=== PATIENT | male | born 1950 | race Caucasian/White ===

== ENCOUNTER 2017-09-14 15:13 | Inpatient (IN) | payer OTHER ==
[~2017-09-14] VITALS: Ht 180.3 cm; Wt 129.0 kg
[~2017-09-14 15:13] MED LIST: ATOR80TA PO; CPR500 PO; GLCSR25 PO; MTR500 PO; SIME80CH PO; TAMS0.4C38 PO
[2017-09-14] MEDS ORDERED: SODIUM CHLORIDE 0.9% 500ML 500 ML IV STA ×2 (15:52→16:49)
[2017-09-14] MEDS: LORAZEPAM 2 MG/ML 1 ML VIAL IV STA ×2 (15:59→16:21)
[2017-09-14 16:14] LABS: HEMATOCRIT 41.7 % (42-52); HEMOGLOBIN 15.1 g/dL (14.0-18.0); MEAN CELL VOLUME 82.4 fL (80-100); MEAN CORPUSCULAR HEMOGLOBIN 29.8 pg (25-34); MEAN CORPUSCULAR HGB CONC 36.2 g/dl (32-36); MEAN PLATELET VOLUME 10.7 fL (7.4-10.4); PLATELET COUNT 236 K/uL (130-400); RED CELL DISTRIBUTION WIDTH CV 13.9 % (11.5-14.5); RED CELL DISTRIBUTION WIDTH SD 41.7 fL (36.4-46.3); WHITE BLOOD COUNT 10.09 K/uL (4.8-10.8)
[2017-09-14] MEDS ORDERED: NVLG SQ (16:29)
[2017-09-14] MEDS ORDERED: FURO80TA63 PO (16:29)
[2017-09-14] MEDS ORDERED: CARV12.5 PO (16:29)
[2017-09-14] MEDS ORDERED: ATOR-24 PO (16:29)
[2017-09-14] MEDS ORDERED: MINO2.5T2 PO (16:29)
[2017-09-14] MEDS ORDERED: CLON0.2T PO (16:29)
[2017-09-14] MEDS ORDERED: INSDGI SQ (16:29)
[2017-09-14] MEDS ORDERED: CALC0.2510 PO (16:29)
[2017-09-14] MEDS ORDERED: TAMS0.4C38 PO (16:29)
--- NOTE | 2017-09-14 16:37 | DIAGNOSTIC IMAGING REPORT ---
CHEST ONE VIEW PORTABLE CLINICAL HISTORY: 67 years-old Male presenting with sob. TECHNIQUE: Portable upright AP view of the chest was obtained. COMPARISON: 02/20/2015. FINDINGS: Cardiac silhouette mildly enlarged. Minimal basilar opacities. No pleural effusion or pneumothorax. Degenerative changes of the thoracic spine. IMPRESSION: 1. Minimal basilar opacities likely atelectasis or scarring. No convincing evidence of acute cardiopulmonary disease. Electronically signed by: Joon George M.D. 09/14/2017 4:36 PM Dictated Date/Time: 09/14/2017 4:35 PM
[2017-09-14] MEDS ORDERED: FRS/40 PO (16:38)
[2017-09-14 16:45] LABS: GLUCOSE 349 mg/dl (70-99)
[2017-09-14 16:47] LABS: ALBUMIN 3.6 gm/dl (3.4-5.0); ALKALINE PHOSPHATASE 76 U/L (45-117); ALT/SGPT 21 U/L (12-78); AST/SGOT 14 U/L (15-37); BLOOD UREA NITROGEN 86 mg/dl (7-18); CARBON DIOXIDE 35 mmol/L (21-32); CREATININE 3.62 mg/dl (0.60-1.40); POTASSIUM 2.6 mmol/L (3.5-5.1); SODIUM 129 mmol/L (136-145); TOTAL PROTEIN 7.9 gm/dl (6.4-8.2)
[2017-09-14] MEDS ORDERED: NovoLIN-R INSULIN PER UNIT CHARGE IV STA (16:49)
[2017-09-14] MEDS ORDERED: POTASSIUM CHLORIDE 10 MEQ TABCR PO STA (16:49)
--- NOTE | 2017-09-14 17:38 | History and Physical ---
History & Physical Date & Time of Service: September 14, 2017 at 17:11 Chief Complaint: Referred By Doctor Primary Care Physician: Carroll Brizuela D.O. History of Present Illness Source: patient 67yo male with history of CKD who [facility] the [facility] [place] [facility] to elevated creatinine. He was told about 4 weeks ago that his creatinine was high. He had repeat blood work about 2 weeks later - again his creatinine was high. For a 3rd time he had blood work about 1 week ago and he received those results yesterday. A Dr. Lomeli from the [facility] (nephrology clinic) called him last evening and recommended he "stay off the lasix." He was also told to discontinue his zaroxylyn. Sometime in August he saw Dr. Lomeli in [place] and the zaroxylyn was added at that visit. He had been on lasix for about 2 years. He had been taking 120mg of lasix twice daily. When asked why he takes 2 diuretics he points to his legs and says "my edema." He denies history of CHF. Over the last few weeks he has felt tired. He also complains of mild abdominal discomfort. In the last month his weight has been about 291 #. Past Medical/Surgical History PMH: 1. HTN 2. T2DM for 10-15 years 3. CKD - unknown stage 4. morbid obesity with BMI of about 39-40 5. BPH 6. umbilical hernia no h/o CHF, PE, COPD/asthma, cirrhosis PSH: none Family History mother - age 85 - "old age" had dementia, HTN father - age 56; had valve replacement; also had ankylosing spondylitis HTN in multiple family members Social History served in [employer] for 3 years in the mid 1980s Smoking Status: Current Some Day Smoker (occasional cigar) Alcohol Use: 1x/week - liquor Drug Use: none Marital Status: (no kids) Housing status: lives alone (in trailer in [place] ) Occupational Status: disabled (previously did [employer] work) Allergies Coded Allergies: Ragweed (Verified Allergy, Mild, CONGESTON, 09/14/17) Home Medications Scheduled Amlodipine Besylate (Norvasc), 10 MG PO DAILY Atorvastatin (Lipitor), 20 MG PO QAM Calcitriol (Rocaltrol Cap), 0.25 MCG PO DAILY Carvedilol (Coreg), 6.25 MG PO BID Clonidine Hcl (Catapres), 0.2 MG PO BID Furosemide (Lasix), 40 MG PO BID Insulin Aspart (Novolog), 5 UNITS SQ AC Insulin Glargine (Lantus), 33 UNITS SQ HS Minoxidil (Minoxidil), 2.5 MG PO BID Tamsulosin Hcl (Flomax), 0.4 MG PO QPM Review of Systems Constitutional: + fatigue, No fever, No chills, No weight loss Eyes: No worsening of vision ENT: + nasal symptoms (congestion ), No sore throat, No trouble swallowing Respiratory: No sputum, No wheezing, No shortness of breath, No dyspnea on exertion Cardiovascular: + edema (chronic, but actually doing very well right now), No chest pain, No orthopnea, No PND Abdomen: + pain (epigastric region - for long time (since teenage years)), No vomiting, No diarrhea, No constipation, No GI bleeding Genitourinary - Male: + problem reported (nocturia - 3x's night; sometimes more ), No hematuria, No dysuria Neurologic: + numbness/tingling (feet), + problem reported (lightheadedness/ dizziness - at times ) Psychiatric: No depression symptoms, No anxiety, No substance abuse Endocrine: + fatigue, No excessive thirst Hematologic / Lymphatic: No abnormal bleeding/bruising Integumentary: No rash Allergic / Immunologic: + environmental allergies Physical Exam Vital Signs Date Time Temp Pulse Resp B/P (MAP) Pulse Ox O2 Delivery O2 Flow Rate FiO2 09/14/17 16:23 94 Nasal Cannula 2.0 09/14/17 16:21 79 20 167/88 88 Room Air 09/14/17 15:16 36.7 90 20 181/78 93 Room Air General Appearance: no apparent distress, + obese, + pertinent finding (mildly disheveled) Head: normocephalic, atraumatic Eyes: + pertinent finding (PERRL; conjunctical and scleral injection with mild purulent discharge b/l ) ENT: hearing grossly normal, TMs normal, pharynx normal Neck: supple, no adenopathy, thyroid normal, no JVD, no carotid bruits Respiratory/Chest: lungs clear, normal breath sounds, no respiratory distress, no accessory muscle use Cardiovascular: regular rate, rhythm, no gallop, no murmur, normal peripheral pulses Abdomen/GI: normal bowel sounds, non tender, soft, no organomegaly, + hernia ( large umbilical hernia - reducible ), + pertinent finding (rectal deferred ) Back: normal inspection Extremities/Musculoskelatal: + pedal edema (trace b/l ), + pertinent finding ( stasis changes b/l ) Neurologic/Psych: no motor/sensory deficits, alert, normal mood/affect, normal reflexes (except achilles reflexes 0) Skin: + pertinent finding (stasis changes b/l shins; multiple calluses on feet ; dystrophic toenails x 10 toes; no ulcers) Lymphatic: no adenopathy (cervical ) Diagnostics Laboratory Results Results Past 24 Hours Test 09/14/17 16:02 Range/Units White Blood Count 10.09 4.8-10.8 K/uL Red Blood Count 5.06 4.7-6.1 M/uL Hemoglobin 15.1 14.0-18.0 g/dL Hematocrit 41.7 42-52 % Mean Corpuscular Volume 82.4 80-100 fL Mean Corpuscular Hemoglobin 29.8 25-34 pg Mean Corpuscular Hemoglobin Concent 36.2 32-36 g/dl RDW Standard Deviation 41.7 36.4-46.3 fL RDW Coefficient of Variation 13.9 11.5-14.5 % Platelet Count 236 130-400 K/uL Mean Platelet Volume 10.7 7.4-10.4 fL Sodium Level 129 136-145 mmol/L Potassium Level 2.6 3.5-5.1 mmol/L Chloride Level 84 98-107 mmol/L Carbon Dioxide Level 35 21-32 mmol/L Anion Gap 10.0 3-11 mmol/L Blood Urea Nitrogen 86 7-18 mg/dl Creatinine 3.62 0.60-1.40 mg/dl Est Creatinine Clear Calc Drug Dose 28.1 ml/min Estimated GFR () 19.2 Estimated GFR (Non- 16.6 BUN/Creatinine Ratio 23.6 10-20 Random Glucose 349 70-99 mg/dl Calcium Level 9.0 8.5-10.1 mg/dl Magnesium Level 2.7 1.8-2.4 mg/dl Total Bilirubin 0.6 0.2-1 mg/dl Aspartate Amino Transf (AST/SGOT) 14 15-37 U/L Alanine Aminotransferase (ALT/SGPT) 21 12-78 U/L Alkaline Phosphatase 76 45-117 U/L Total Creatine Kinase 145 39-308 U/L Troponin I < 0.015 0-0.045 ng/ml Total Protein 7.9 6.4-8.2 gm/dl Albumin 3.6 3.4-5.0 gm/dl Globulin 4.3 2.5-4.0 gm/dl Albumin/Globulin Ratio 0.8 0.9-2 Beta-Hydroxybutyric Acid 1.50 0.2-2.81 mg/dL Thyroid Stimulating Hormone (TSH) 1.690 0.300-4.500 uIu/ml Diagnostic Radiology cxr - IMPRESSION: 1. Minimal basilar opacities likely atelectasis or scarring. No convincing evidence of acute cardiopulmonary disease. EKG EKG - my reading - NSR, nl axis, prolonged QTc; inferior q waves; inferior ST segment depressions Impression Assessment and Plan 67yo male with history of long-standing HTN, long-standing T2DM, morbid obesity , BPH, and CKD unknown stage presenting as a referral from the [place] clinic due to worsening renal function. The patient has been having serial labs over the last 4 weeks which have showed worsening creatinine. The patient is uncertain about what the creatinine has been. He has been on multiple diuretics over the last month and yesterday, when the [place] physician called him, he was asked to stop his lasix and metazolone. In addition to stopping the diuretics he was told to report to the nearest hospital ER. 1. acute renal failure - suspect this is due to volume depletion in the setting of double diuretic usage. He has a concomitant contraction alkalosis. Doubt obstruction but will check renal ultrasound in light of his BPH. Hold any nephrotoxic agent. Hold his diuretics. Gently hydrate with NS at 125cc/hr overnight. Repeat BMP later this evening and then again in the AM. It is unknown what his creatinine has been in the last few months or weeks. The last creatinine in our system was in 02/2015 and was 1.9. He is established with a paper rewinder operator through the [facility] (parker Lomeli). Check u/a, urine osm, urine sodium, urine creatinine (although FeNa may not be accurate due to recent diuretic usage). [facility]. Despite the acute renal failure his only symptom of such is fatigue. He has no evidence of volume overload. 2. CKD unknown stage - suspect his CKD is due to diabetic nephropathy and/or hypertensive kidney disease. Check u/a. Check other urine studies as above. Check renal u/s 3. HTN - long-standing, uncontrolled (he reported during my visit with him "my blood pressure is usually 150"). Hold diuretics. Hold minoxidil which can worsen edema. Cont amlodipine. Cont coreg but increase to 12.5mg BID. Cont clonidine 0.2mg BID. Cont flomax 0.4mg daily. Could consider nitrates with hydralazine in neida of minoxidil. 4. hyponatremia - likely due to diuretic usage. Hydrate, and repeat BMP tonight and then again in the AM. 5. severe hypokalemia - 2nd to diuretic usage. Received 40meq of PO potassium in ER already. Give another 60meq tonight, then repeat the BMP 1 hour later. 6. FEN - renal/DM diet. NS 125cc/hr. Serial labs. 7. DVT proph - heparin 5000 BID. 8. morbid obesity with BMI 39 9. T2DM - continue lantus at 35 units HS. Novolog w/ meals - goal range 100- 150; correction factor 25; carb ratio 1:8. 10. BPH - cont flomax. Check renal u/s to ensure he does not have chronic bladder outlet obstruction from such. 11. transient hypoxia in the ER - cxr is clear, lung exam is normal. Observe. Certainly at risk of RADHA given his obesity. 12. prolonged QTc - 2nd to severe hypokalemia; replete the low K and repeat the EKG in am. Place patient on telemetry. Resuscitation Status VTE Prophylaxis Will order VTE Prophylaxis: Yes Note total visit time 70 min Additional Copies To Carroll Brizuela D.O.
[2017-09-14] MEDS ORDERED: SODIUM CHLORIDE 0.9% 1000ML 1,000 ML IV SCH (17:54)
[2017-09-14] MEDS ORDERED: ACETAMINOPHEN 325 MG TAB PO PRN (18:00)
[2017-09-14] MEDS ORDERED: ONDANSETRON INJ 2 MG/ML 2 ML VIAL IV PRN (18:00)
[2017-09-14] MEDS ORDERED: GLUCOSE 10 TABS/TUBE PO PRN (18:30)
[2017-09-14] MEDS ORDERED: GLUCOSE 40% GEL 15 GM TUBE PO PRN (18:30)
[2017-09-14] MEDS ORDERED: DEXTROSE 50% 50 ML SYR IV PRN (18:30)
[2017-09-14] MEDS ORDERED: CARBOHYDRATES FOR HYPOGLYCEMIA PO PRN (18:30)
[2017-09-14] MEDS ORDERED: GLUCAGON FOR INJ 1 MG VIAL IM PRN (18:30)
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
[2017-09-14] MEDS ORDERED: AMLO10TA2 PO (19:29)
[2017-09-14 19:59] VITALS: BP 188/90; PULSE 80; TEMP 36.6; O2SAT 95; BMI 39.2
[2017-09-14] MEDS ORDERED: POTASSIUM CHLORIDE 20 MEQ TABCR PO ONE (20:00)
[2017-09-14 20:03] LABS: CREATININE RANDOM URINE 53.2 mg/dl
[2017-09-14 20:22] LABS: PTT PATIENT 26.4 SECONDS (21.0-31.0)
[2017-09-14] MEDS ORDERED: ERYTHROMYCIN OP OINT 1 GM PKT OP SCH (21:00)
[2017-09-14] MEDS ORDERED: INSULIN GLARGINE SOLOSTAR 100 UNITS/ML 3 ML PEN SQ SCH (21:00)
[2017-09-14] MEDS ORDERED: CLONIDINE HCL 0.1 MG TAB PO SCH (21:00)
[2017-09-14] MEDS: TAMSULOSIN HCL 0.4 MG CAP PO SCH (21:11)
[2017-09-14] MEDS: CARVEDILOL 12.5 MG TAB PO SCH (21:11)
[2017-09-14] MEDS: NAPHAZOLIN/PHENIRAMIN OPH SOLN 75 DROPS/5 ML BTL OP PRN (21:13)
[2017-09-14] MEDS: INSULIN ASPART 100 UNITS/ML 3 ML PEN SC SCH (21:19)
[2017-09-14] MEDS: INSULIN GLARGINE SOLOSTAR 100 UNITS/ML 3 ML PEN SQ SCH (21:20)
[2017-09-14 21:43] LABS: CALCIUM 8.6 mg/dl (8.5-10.1); CREATININE 3.75 mg/dl (0.60-1.40); POTASSIUM 2.6 mmol/L (3.5-5.1)
[2017-09-14] MEDS: CLONIDINE HCL 0.1 MG TAB PO SCH (21:47)
[2017-09-14] MEDS: HEPARIN SOD 5000 UNIT/0.5 ML CARP SQ SCH (21:48)
[2017-09-14] MEDS: ERYTHROMYCIN OP OINT 5 MG/GM 3.5 GM TUBE OP SCH (22:11)
--- NOTE | 2017-09-14 22:50 | DIAGNOSTIC IMAGING REPORT ---
RETROPERITONEAL COMPLETE CLINICAL HISTORY: 67 years-old Male presenting with ACUTE KIDNEY FAILURE; EVAL FOR OBSTRUCTION. TECHNIQUE: Real-time grayscale and limited color Doppler ultrasound imaging of the kidneys and bladder was performed. COMPARISON: CT from 02/21/2015. FINDINGS: Right kidney: Cortical thinning. Right kidney measures 9.9 cm. No hydronephrosis. No convincing evidence of calculus or mass. Left kidney: Cortical thinning. Left kidney measures 10.6 cm. No hydronephrosis. Interpolar anechoic lesion consistent with cyst measuring 2.1 cm. Bladder: Polypoid lesion arising from the posterior bladder wall measuring 2.0 cm. No demonstrable internal color Doppler flow. Right ureteral jet not present. Other: None. IMPRESSION: 1. Polypoid masslike thickening of the bladder wall posteriorly. Urologic consultation for possible cystoscopy to be considered. No internal vascular flow is evident though neoplasm is difficult to exclude. 2. Bilateral renal cortical thinning consistent with chronic medical renal disease. No convincing evidence of obstruction. The report will be called/faxed according to standard departmental protocol. Electronically signed by: Joon George M.D. 09/14/2017 10:48 PM Dictated Date/Time: 09/14/2017 10:46 PM
[2017-09-14 23:56] VITALS: BP 155/85; PULSE 114; TEMP 36.5; O2SAT 94
[2017-09-15] VITALS (7 sets, daily range): BP systolic 116–173; BP diastolic 65–83; PULSE 45–67; TEMP 36.3–36.7; O2SAT 87–98; Ht 180.3 cm; Wt 129.0 kg
[2017-09-15] MEDS: NSS + 20MEQ KCL 1000ML 1,000 ML IV SCH ×2 (00:58→13:30)
[2017-09-15 07:19] LABS: CALCIUM 8.6 mg/dl (8.5-10.1); CREATININE 3.27 mg/dl (0.60-1.40); POTASSIUM 3.3 mmol/L (3.5-5.1)
[2017-09-15] MEDS ORDERED: POTASSIUM CHLORIDE 20 MEQ TABCR PO STA (07:50)
[2017-09-15] MEDS: AMLODIPINE BESYLATE 5 MG TAB PO SCH (08:31)
[2017-09-15] MEDS: ATORVASTATIN 20 MG TAB PO SCH (08:32)
[2017-09-15] MEDS: ERYTHROMYCIN OP OINT 5 MG/GM 3.5 GM TUBE OP SCH ×3 (08:32→21:02)
[2017-09-15] MEDS: CLONIDINE HCL 0.1 MG TAB PO SCH ×2 (08:32→21:03)
[2017-09-15] MEDS: CALCITRIOL 0.25 MCG CAP PO SCH (08:32)
[2017-09-15] MEDS: CARVEDILOL 12.5 MG TAB PO SCH (08:32)
[2017-09-15] MEDS: INSULIN GLARGINE SOLOSTAR 100 UNITS/ML 3 ML PEN SC SCH (08:45)
[2017-09-15] MEDS: INSULIN ASPART 100 UNITS/ML 3 ML PEN SC SCH ×4 (08:45→21:15)
[2017-09-15] MEDS: HEPARIN SOD 5000 UNIT/0.5 ML CARP SQ SCH ×2 (08:46→21:16)
[2017-09-15 09:07] LABS: HEMOGLOBIN A1C 11.4 % (4.5-5.6)
[2017-09-15] MEDS: CARVEDILOL 6.25 MG TAB PO SCH (21:00)
[2017-09-15] MEDS: TAMSULOSIN HCL 0.4 MG CAP PO SCH (21:04)
[2017-09-15] MEDS: INSULIN GLARGINE SOLOSTAR 100 UNITS/ML 3 ML PEN SQ SCH (21:16)
--- NOTE | 2017-09-15 21:35 | Progress Note ---
Subjective Date of Service: September 15, 2017. Subjective Pt evaluation today including: conversation w/ patient, physical exam, chart review, lab review, review of studies (renal u/s), review of inpatient medication list Pain: none PO Intake: normal Voiding: no voiding problems tele stable overnight EKG today with improved QTc interval he overall feels well Problem List Medical Problems: (1) Acute renal failure (ARF) Status: Acute (2) Dehydration Status: Acute (3) Hyperglycemia Status: Acute (4) Hypokalemia Status: Acute Review of Systems Constitutional: No fever Respiratory: No shortness of breath, No dyspnea on exertion Cardiac: No chest pain Abdomen: No pain Objective Vital Signs Date Time Temp Pulse Resp B/P (MAP) Pulse Ox O2 Delivery O2 Flow Rate FiO2 09/15/17 19:14 36.5 55 20 173/83 (113) 87 Room Air 09/15/17 16:02 36.3 50 18 152/80 (104) 95 Nasal Cannula 2.0 09/15/17 16:00 Room Air 09/15/17 12:00 Room Air 09/15/17 11:44 36.4 48 19 134/75 (94) 97 Nasal Cannula 2.0 09/15/17 08:04 36.4 45 19 142/75 (97) 94 Room Air 09/15/17 08:00 Room Air 09/15/17 04:28 36.7 49 17 117/65 (82) 94 09/15/17 04:00 Room Air 09/15/17 00:00 Room Air 09/14/17 23:56 36.5 114 16 155/85 (108) 94 Nasal Cannula 2.0 Physical Exam General Appearance: no apparent distress, + obese Eyes: + pertinent finding (conjunctival injection still present but less drainage) ENT: pharynx normal Neck: no JVD Respiratory/Chest: lungs clear, no respiratory distress, no accessory muscle use Cardiovascular: regular rate, rhythm, no gallop, no JVD, no murmur Abdomen: normal bowel sounds, non tender, soft, no organomegaly, + hernia ( large, umbilical, reducible ) Extremities: no pedal edema Neurologic/Psychiatric: alert, oriented x 3 Skin: + pertinent finding (stasis changes b/l legs) Laboratory Results Last 24 Hours Test 09/15/17 06:27 09/15/17 07:02 09/15/17 11:07 09/15/17 16:10 Sodium Level 135 mmol/L Potassium Level 3.3 mmol/L Chloride Level 95 mmol/L Carbon Dioxide Level 34 mmol/L Anion Gap 6.0 mmol/L Blood Urea Nitrogen 69 mg/dl Creatinine 3.27 mg/dl Est Creatinine Clear Calc Drug Dose 31.0 ml/min Estimated GFR () 21.8 Estimated GFR (Non- 18.8 BUN/Creatinine Ratio 21.1 Random Glucose 254 mg/dl Estimated Average Glucose 280 mg/dl Hemoglobin A1c 11.4 % Calcium Level 8.6 mg/dl Chemistry Specimen Hemolysis Bedside Glucose 262 mg/dl 213 mg/dl 146 mg/dl Assessment and Plan 67yo male with history of long-standing HTN, long-standing T2DM, morbid obesity , BPH, and CKD unknown stage who presented as a referral from the [place] clinic due to worsening renal function. The patient had been having serial labs over the last 4 weeks which showed worsening creatinine. He had been on multiple diuretics over the last month. 1. acute renal failure - improving with gentle hydration. Suspect this was due to volume depletion in the setting of double diuretic usage. Renal u/s w/o obstruction. Renal u/s shows "medical renal disease." Cont to hold diuretics. It is unknown what his creatinine has been in the last few months or weeks. The last creatinine in our system was in 02/2015 and was 1.9. He is established with a veneer drier tailer through the [facility] ([facility] Lom[facility]). Awaiting [place] records. 2. CKD unknown stage - suspect his CKD is due to diabetic nephropathy and/or hypertensive kidney disease. u/a with 2+ protein c/w diabetic nephropathy. renal u/s w/o obstruction. 3. HTN - long-standing, uncontrolled (he reported "my blood pressure is usually 150") but much improved today after restarting his home meds. I question his compliance at home with meds. Cont to dold diuretics and minoxidil. Cont amlodipine. Cont coreg but decrease the dose back to 6.25mg BID given his bradycardia on monitor. Cont clonidine 0.2mg BID. Cont flomax 0.4mg daily. 4. hyponatremia - likely due to diuretic usage - resolved; bmp in am. 5. severe hypokalemia - 2nd to diuretic usage - nearly resolved. Replace again , BMP in am. 6. FEN - renal/DM diet. NS but lowered the rate to 80cc/hr. Serial labs. 7. DVT proph - heparin 5000 BID. 8. morbid obesity with BMI 39 9. T2DM - markedly uncontrolled with high A1c. Add AM lantus 15 units. Continue lantus at 35 units HS. Novolog w/ meals - goal range 100-150; correction factor 15; carb ratio 1:5. 10. BPH - cont flomax. No evidence of chronic bladder outlet obstruction from such. 11. transient hypoxia in the ER - cxr is clear, lung exam is normal. O2 sats normal. 12. prolonged QTc - 2nd to severe hypokalemia - improved. 13. ?bladder mass - told patient about such today. Send urine cytologies. will need outpatient cystoscopy. overall doing nicely [facility] on tele 1 more day Continued [facility] stay due to: multiple IV medications needed Discharge planning: home
[2017-09-16] VITALS (8 sets, daily range): BP systolic 129–156; BP diastolic 76–85; PULSE 47–55; TEMP 36.4–36.9; O2SAT 92–98
[2017-09-16] MEDS: NSS + 20MEQ KCL 1000ML 1,000 ML IV SCH ×2 (01:04→13:41)
[2017-09-16 05:54] LABS: HEMATOCRIT 40.1 % (42-52); HEMOGLOBIN 13.2 g/dL (14.0-18.0); MEAN CORPUSCULAR HGB CONC 32.9 g/dl (32-36); MEAN PLATELET VOLUME 10.5 fL (7.4-10.4); PLATELET COUNT 196 K/uL (130-400); RED CELL DISTRIBUTION WIDTH CV 13.9 % (11.5-14.5); RED CELL DISTRIBUTION WIDTH SD 43.5 fL (36.4-46.3); WHITE BLOOD COUNT 7.05 K/uL (4.8-10.8)
[2017-09-16 06:25] LABS: CALCIUM 8.6 mg/dl (8.5-10.1); CREATININE 3.05 mg/dl (0.60-1.40); POTASSIUM 3.4 mmol/L (3.5-5.1)
[2017-09-16] MEDS ORDERED: POTASSIUM CHLORIDE 20 MEQ TABCR PO STA (07:41)
[2017-09-16] MEDS: CLONIDINE HCL 0.1 MG TAB PO SCH ×2 (08:43→19:30)
[2017-09-16] MEDS: ATORVASTATIN 20 MG TAB PO SCH (08:43)
[2017-09-16] MEDS: ERYTHROMYCIN OP OINT 5 MG/GM 3.5 GM TUBE OP SCH ×4 (08:44→19:33)
[2017-09-16] MEDS: CARVEDILOL 6.25 MG TAB PO SCH ×2 (08:44→19:29)
[2017-09-16] MEDS: AMLODIPINE BESYLATE 5 MG TAB PO SCH (08:44)
[2017-09-16] MEDS: CALCITRIOL 0.25 MCG CAP PO SCH (08:45)
[2017-09-16] MEDS: INSULIN ASPART 100 UNITS/ML 3 ML PEN SC SCH ×4 (08:46→20:50)
[2017-09-16] MEDS: INSULIN GLARGINE SOLOSTAR 100 UNITS/ML 3 ML PEN SC SCH (08:47)
[2017-09-16] MEDS: HEPARIN SOD 5000 UNIT/0.5 ML CARP SQ SCH ×2 (08:48→20:51)
[2017-09-16] MEDS: TAMSULOSIN HCL 0.4 MG CAP PO SCH (19:28)
[2017-09-16] MEDS: NAPHAZOLIN/PHENIRAMIN OPH SOLN 75 DROPS/5 ML BTL OP PRN (19:33)
[2017-09-16] MEDS: INSULIN GLARGINE SOLOSTAR 100 UNITS/ML 3 ML PEN SQ SCH (20:50)
[2017-09-17] MEDS: NSS + 20MEQ KCL 1000ML 1,000 ML IV SCH (02:25)
[2017-09-17 04:10] VITALS: BP 158/87; PULSE 45; TEMP 36.6; O2SAT 93
[2017-09-17 06:10] LABS: CALCIUM 8.6 mg/dl (8.5-10.1); CREATININE 2.82 mg/dl (0.60-1.40); POTASSIUM 3.7 mmol/L (3.5-5.1)
[2017-09-17 06:44] VITALS: BP 128/67; PULSE 42; TEMP 37.4; O2SAT 95
--- NOTE | 2017-09-17 07:54 | Progress Note ---
Subjective Date of Service: September 16, 2017. Subjective Pt evaluation today including: conversation w/ patient, physical exam, chart review, lab review, review of inpatient medication list Pain: none PO Intake: normal Voiding: no voiding problems tele stable overnight except for sinus myke into the 40s w/ sleep ; no AV block or pauses feels good denies dyspnea, orthopnea, [place] eyes feel better w/ less discharge Problem List Medical Problems: (1) Acute renal failure (ARF) Status: Acute (2) Dehydration Status: Acute (3) Hyperglycemia Status: Acute (4) Hypokalemia Status: Acute Review of Systems Constitutional: No fever Respiratory: No cough Cardiac: No chest pain, No orthopnea Abdomen: No pain Objective Vital Signs Date Time Temp Pulse Resp B/P (MAP) Pulse Ox O2 Delivery O2 Flow Rate FiO2 09/16/17 20:00 Room Air 09/16/17 19:46 36.8 49 20 156/81 (106) 95 Room Air 09/16/17 16:00 Room Air 09/16/17 15:35 36.6 48 20 154/84 (107) 96 Room Air 09/16/17 12:00 Room Air 09/16/17 11:29 36.6 47 19 129/76 (93) 95 Room Air 09/16/17 08:00 Room Air 09/16/17 06:44 36.4 50 20 134/80 (98) 94 Room Air 09/16/17 04:00 92 Room Air 09/16/17 03:45 36.6 53 20 150/85 (106) 92 Room Air 09/16/17 00:00 98 Room Air 09/15/17 22:57 36.4 67 19 116/72 (87) 98 Room Air Physical Exam General Appearance: no apparent distress, + obese Eyes: + pertinent finding (eyes much better today with less injection and resolved discharge) ENT: pharynx normal Neck: no JVD Respiratory/Chest: lungs clear, no respiratory distress, no accessory muscle use Cardiovascular: no gallop, no murmur, + bradycardia Abdomen: normal bowel sounds, non tender, soft, no organomegaly, + hernia ( large umbilical hernia) Extremities: no pedal edema Neurologic/Psychiatric: alert, oriented x 3 Laboratory Results Last 24 Hours Test 09/16/17 05:24 09/16/17 07:04 09/16/17 11:04 09/16/17 16:16 White Blood Count 7.05 K/uL Red Blood Count 4.72 M/uL Hemoglobin 13.2 g/dL Hematocrit 40.1 % Mean Corpuscular Volume 85.0 fL Mean Corpuscular Hemoglobin 28.0 pg Mean Corpuscular Hemoglobin Concent 32.9 g/dl RDW Standard Deviation 43.5 fL RDW Coefficient of Variation 13.9 % Platelet Count 196 K/uL Mean Platelet Volume 10.5 fL Sodium Level 137 mmol/L Potassium Level 3.4 mmol/L Chloride Level 102 mmol/L Carbon Dioxide Level 30 mmol/L Anion Gap 5.0 mmol/L Blood Urea Nitrogen 60 mg/dl Creatinine 3.05 mg/dl Est Creatinine Clear Calc Drug Dose 33.0 ml/min Estimated GFR () 23.7 Estimated GFR (Non- 20.4 BUN/Creatinine Ratio 19.7 Random Glucose 144 mg/dl Calcium Level 8.6 mg/dl Bedside Glucose 167 mg/dl 140 mg/dl 109 mg/dl Test 09/16/17 20:16 Bedside Glucose 167 mg/dl Assessment and Plan 67yo male with history of long-standing HTN, long-standing T2DM, morbid obesity , BPH, and CKD unknown stage who presented as a referral from the [place] clinic due to worsening renal function. The patient had been having serial labs over the last 4 weeks which showed worsening creatinine. He had been on multiple diuretics over the last month. 1. acute renal failure - again improved with gentle hydration. Suspect this was due to volume depletion in the setting of double diuretic usage. Renal u/s w/o obstruction. Renal u/s shows "medical renal disease." Cont to hold diuretics. It is unknown what his creatinine has been in the last few months or weeks. The last creatinine in our system was in 02/2015 and was 1.9. He is established with a junior programmer through the [facility] ([facility] BMP in am. 2. CKD unknown stage - suspect his CKD is due to diabetic nephropathy and/or hypertensive kidney disease. u/a with 2+ protein c/w diabetic nephropathy. renal u/s w/o obstruction. 3. HTN - long-standing, uncontrolled (he reported "my blood pressure is usually 150") but much improved today after restarting his home meds. I question his compliance at home with meds. Holding BB due to severe bradycardia. Suspect clonidine is playing a role in bradycardia as well. Cont to hold diuretics and minoxidil. Cont amlodipine. Cont clonidine 0.2mg BID. Cont flomax 0.4mg daily. 4. hyponatremia - likely due to diuretic usage - resolved; bmp in am. 5. severe hypokalemia - 2nd to diuretic usage - nearly resolved. Replace again , BMP in am. 6. FEN - renal/DM diet. Cont fluids overnight; suspect we can d/c them tomorrow am. 7. DVT proph - heparin 5000 BID. 8. morbid obesity with BMI 39 9. T2DM - markedly uncontrolled with high A1c but improved with lantus adjustments and novolog adjustments. 10. BPH - cont flomax. No evidence of chronic bladder outlet obstruction from such. 11. transient hypoxia in the ER - cxr is clear, lung exam is normal. O2 sats normal. 12. prolonged QTc - 2nd to severe hypokalemia - improved/resolved. 13. ?bladder mass - told patient about such today. Sending urine cytologies. will need outpatient cystoscopy. 14. conjunctivitis - resolving; cont abx ointment. overall doing nicely await [facility] d[facility]c tomorrow? Continued [facility] stay due to: multiple IV medications needed Discharge planning: home
[2017-09-17] MEDS: ATORVASTATIN 20 MG TAB PO SCH (08:17)
[2017-09-17] MEDS: CLONIDINE HCL 0.1 MG TAB PO SCH (08:17)
[2017-09-17] MEDS: CARVEDILOL 6.25 MG TAB PO SCH (08:17)
[2017-09-17] MEDS: AMLODIPINE BESYLATE 5 MG TAB PO SCH (08:18)
[2017-09-17] MEDS: CALCITRIOL 0.25 MCG CAP PO SCH (08:18)
[2017-09-17] MEDS: INSULIN ASPART 100 UNITS/ML 3 ML PEN SC SCH ×2 (08:24→12:40)
[2017-09-17] MEDS: INSULIN GLARGINE SOLOSTAR 100 UNITS/ML 3 ML PEN SC SCH (08:24)
[2017-09-17] MEDS: HEPARIN SOD 5000 UNIT/0.5 ML CARP SQ SCH (08:25)
[2017-09-17] MEDS: ERYTHROMYCIN OP OINT 5 MG/GM 3.5 GM TUBE OP SCH (08:25)
[2017-09-17 11:33] VITALS: BP 151/85; PULSE 52; TEMP 36.6; O2SAT 94
[2017-09-17 12:25] VITALS: PULSE 64; O2SAT 94
[2017-09-17] MEDS ORDERED: NVLG SQ (12:41)
[2017-09-17] MEDS ORDERED: ERYOPO OP (12:41)
[2017-09-17] MEDS ORDERED: NPHA OP (12:41)
[2017-09-17] MEDS ORDERED: FRS/80 PO (12:41)
[2017-09-17] MEDS ORDERED: INSDGI SQ (12:41)
--- NOTE | 2017-09-17 12:55 | Discharge Instructions ---
Discharge Instructions Date of Service September 17, 2017. Admission Reason for Admission: Acute Renal Failure, Low Sodium, Low Potassium, Elevated Blood Pressures Discharge Discharge Diagnosis / Problem: Resolution of Low potassium & sodium; improvement in kidney function Discharge Goals Goal(s): Learn about illness, Diagnostic testing, Therapeutic intervention Activity Recommendations Activity Limitations: resume your previous activity . Instructions / Follow-Up Instructions / Follow-Up From Dr. Wagner - 1. Kidney function - * your creatinine level (this is a reflection of your kidney function) on your bloodwork was highest at 3.7 * it improved to 2.8 while here * we did receive your records from the [place] and so we do not know what your creatinine has been in the last year * your creatinine, however, was about 1.8 in 2014 at [facility] * please have the [place] REPEAT YOUR CREATININE LEVEL THIS WEEK 2. Low sodium, low potassium - both resolved with IV fluids. These electrolytes were low because of your metazolone and lasix use. 3. At this time please STOP YOUR METAZOLONE. 4. Please CONTINUE YOUR LASIX (FUROSEMIDE). Take 80mg once a day in the morning. A new prescription has been provided for you. 5. Diabetes - * please increase your lantus to 50 units once a day at bedtime * please increase your novolog to 10 units with breakfast, 10 units with lunch, and 10 units with dinner 6. Eye infection - * please use the erythromycin eye ointment THREE TIMES A DAY for 7-10 days * you can also use the allergy eye drop every 4 hours as needed for itching/ irritation 7. Your kidney ultrasound showed a questionable abnormality in the bladder. This will need to be worked up by a urologist to ensure it is nothing you need to be concerned about. Please speak with your doctor at the [facility] to arrange a referral to a UROLOGIST as soon as possible. 8. Follow-up - * please see the [facility] clinic THIS WEEK (within 5 days) * again you will need a repeat creatinine (basic metabolic panel) THIS WEEK to ensure your blood work is acceptable 9. Return to [facility] if - * you have shortness of breath * you have chest pain * your blood sugars are very high (consistently over 300) or low (under 70) * any other concerns Current Hospital Diet Patient's current hospital diet: Diabetes Type 2 Diet, Renal Diet Discharge Diet Recommended Diet: Diabetes Type 2 Diet, Renal Diet (low potassium diet ) Procedures Procedures Performed: ultrasound of kidneys showing question of a bladder mass in the bladder Pending Studies Studies pending at discharge: no Laboratory Results Hemoglobin A1c Test 09/15/17 06:27 Range/Units Estimated Average Glucose 280 mg/dl Hemoglobin A1c 11.4 H 4.5-5.6 % Medical Emergencies . Who to Call and When: Medical Emergencies: If at any time you feel your situation is an emergency, please call 911 immediately. . Non-Emergent Contact Non-Emergency issues call your: Primary Care Provider Call Non-Emergent contact if: temperature is above 100.5, you have any medication questions . . "Provider Documentation" section prepared by Elliot Wagner. .
[2017-09-17 14:06] VITALS: BP 151/85; PULSE 64; TEMP 36.6; O2SAT 94
--- NOTE | 2017-09-18 13:56 | Discharge Summary ---
Discharge Summary Date of Service September 18, 2017. Discharge Summary Admission Date: September 14, 2017 at 18:05 Discharge Date: September 17, 2017 Discharge Disposition: Home with services Principal Diagnosis: acute renal failure Problems/Secondary Diagnoses: 1. CKD - unknown stage, but suspected stage 3 or 4 2. hypokalemia - resolved 3. hyponatremia - resolved 4. uncontrolled T2DM - improved 5. morbid obesity with BMI of about 40 6. b/l conjunctivitis - improved 7. HTN 8. hyperlipidemia 9. BPH 10. large reducible umbilical hernia 11. prolonged QTc - resolved 12. question of bladder mass on renal u/s - urine cytologies pending, and UROLOGY FOLLOW-UP RECOMMENDED Procedures: Renall Ultrasound: IMPRESSION: 1. Polypoid masslike thickening of the bladder wall posteriorly. Urologic consultation for possible cystoscopy to be considered. No internal vascular flow is evident though neoplasm is difficult to exclude. 2. Bilateral renal cortical thinning consistent with chronic medical renal disease. No convincing evidence of obstruction. CXR - no acute cardiopulmonary process. Consultations: in service educator Medication Reconciliation New Medications: Erythromycin Opth (Erythromycin Opth) 12 Appln/3.5 Gm Oint 1 APPLN OP TID, #1 TUBE 0 Refills apply to both eyes Naphazoline/Pheniramine (Naphcon-A) 15 Ml Soln 1 DROPS OP Q4H PRN for itchy, watery, irritated eyes, #1 BTL 0 Refills Changed Medications: Furosemide (Lasix) 80 Mg Tab 80 MG PO QAM, #30 TAB 2 Refills (Changed from: Furosemide (Lasix) 40 Mg Tab 40 Mg PO BID) Insulin Aspart (Novolog) 100 Units/Ml Inj 10 UNITS SQ AC, #1 BTL 2 Refills (Changed from: 5 UNITS; Refills: ; Removed Instructions) Insulin Glargine (Lantus) 100 Unit/Ml Inj 50 UNITS SQ HS, #1 VIAL 2 Refills (Changed from: 33 UNITS; Refills: ) Continued Medications: Amlodipine Besylate (Norvasc) 10 Mg Tab 10 MG PO DAILY, TAB Atorvastatin (Lipitor) 40 Mg Tab 20 MG PO QAM, TAB Calcitriol (Rocaltrol Cap) 0.25 Mcg Cap 0.25 MCG PO DAILY, CAP Carvedilol (Coreg) 12.5 Mg Tab 6.25 MG PO BID, TAB TAKE 1/2 TAB BID. Clonidine Hcl (Catapres) 0.2 Mg Tab 0.2 MG PO BID, TAB Tamsulosin Hcl (Flomax) 0.4 Mg Cap 0.4 MG PO QPM, CAP Discontinued Medications: Minoxidil (Minoxidil) 2.5 Mg Tab 2.5 MG PO BID, TAB Discharge Exam Physical Exam: General Appearance: no apparent distress, + obese Eyes: + pertinent finding (scleral and conjunctival injection improved; less discharge ) ENT: pharynx normal Neck: no JVD Respiratory/Chest: lungs clear, normal breath sounds, no respiratory distress, no accessory muscle use Cardiovascular: no gallop, no murmur, normal peripheral pulses, + bradycardia (sinus) Abdomen / GI: normal bowel sounds, non tender, soft, no organomegaly, + hernia (large reducible umbilical hernia ) Extremities: no pedal edema Neurologic/Psychiatric: alert, oriented x 3 Skin: + pertinent finding (stasis changes b/l legs ) Hospital Course HISTORY OF PRESENT ILLNESS: 67yo male with history of CKD who [facility] [place] [facility] elevated creatinine. He was told about 4 weeks ago that his creatinine was high. He had repeat blood work about 2 weeks later - again his creatinine was high. For a 3rd time he had blood work about 1 week ago and he received those results yesterday. A Dr. Lomeli from the [facility] (nephrology clinic) called him last evening and recommended he "stay off the lasix." He was also told to discontinue his zaroxylyn. Sometime in August he saw Dr. Lomeli in [place] and the zaroxylyn was added at that visit. He had been on lasix for about 2 years. He had been taking 120mg of lasix twice daily. When asked why he takes 2 diuretics he points to his legs and says "my edema." He denies history of CHF. Over the last few weeks he has felt tired. He also complains of mild abdominal discomfort. In the last month his weight has been about 291 #. HOSPITAL COURSE: 1. acute renal failure - suspect this was due to volume depletion in the setting of double diuretic usage. Peak creatinine was 3.7, improving to 2.8 at discharge after several days of IV fluid administration. Renal u/s did not show any obstruction. Renal u/s showed "medical renal disease " consistent with his known CKD. It is unknown what his creatinine had been in the last few months or weeks prior to admission. [facility]. The last creatinine in our system was in 02/2015 and was 1.9 but I suspect his baseline creatinine is in the 2's. 2. CKD unknown stage - suspect his CKD is due to diabetic nephropathy and/or hypertensive kidney disease. u/a with 2+ protein consistent with diabetic nephropathy. Renal u/s did not reveal obstruction. Again discharge creatinine was 2.8. I suspect his baseline renal function is stage 3 or 4. 3. HTN - long-standing, uncontrolled (he reported "my blood pressure is usually 150") but much improved after simply resuming his home medications. I question his compliance at home with medications. At discharge his BP was controlled on the following regimen: amlodipine 10mg daily, clonidine 0.2mg BID, flomax 0.4mg daily, coreg 6.25mg BID. He will resume lasix at a dose of 80mg once a day in the morning. He was asked to discontinue minoxidil and metazolone (he had neither during his stay and his BPs were controlled off of them). 4. hyponatremia - likely due to diuretic usage - resolved with IV fluids. 5. severe hypokalemia - 2nd to diuretic usage - resolved with IV/PO supplementation. 6. T2DM - markedly uncontrolled with high A1c (11.4%) but improved with lantus adjustments and novolog adjustments. At discharge I recommended 50 units of lantus once a day and novolog 10 units TID with meals. I suspect noncompliance plays a role in his uncontrolled DM. 7. BPH - continue flomax. No evidence of chronic bladder outlet obstruction from such. 8. prolonged QTc - 2nd to severe hypokalemia - improved/resolved. 9. ?bladder mass - renal ultrasound demonstrated such. The patient was counseled about such and the need for urology follow-up after discharge. Urine cytology was sent prior to discharge and was pending. He will need outpatient cystoscopy. 10. conjunctivitis - resolving with antibiotic ointment. 11. social - the patient reported to us that he did not have running water in his trailer. He stated he needed to obtain a new pipe and that this would fix the issue. He had issues with clothes as well as transportation. Social work was involved and these issues will be reported to the rn field case manager at the [place] clinic. He was provided transportation home at discharge and was given a set of clothes courtesy of our psychiatric unit. His next of kin was notified of these issues as well. Total Time Spent: Greater than 30 minutes This includes examination of the patient, discharge planning, medication reconciliation, and communication with other providers. Discharge Instructions Please refer to the electronic Patient Visit Report (Discharge Instructions) for additional information. Follow-Up see Dr. Brizuela at the [place] clinic within 5 days; he will need repeat BMP at that time Additional Copies To Carroll Brizuela D.O.
== END 2017-09-17 14:20 | disposition home health service (06) | DRG 683 ==
LOC: C.EDB 15:14 → C.2T 18:05 → ENRESERV 18:31
PROVIDERS: ADMIT Internal Medicine; ATTEND Hospitalist
DX: N17.9 Acute kidney failure, unspecified (principal); E87.3 Alkalosis; E87.1 Hypo-osmolality and hyponatremia; F17.200 Nicotine dependence, unspecified, uncomplicated; E87.6 Hypokalemia; E86.0 Dehydration; N18.9 Chronic kidney disease, unspecified; E11.65 Type 2 diabetes mellitus with hyperglycemia; E11.22 Type 2 diabetes mellitus with diabetic chronic kidney disease; E66.01 Morbid (severe) obesity due to excess calories; N40.0 Benign prostatic hyperplasia without lower urinary tract symptoms; E11.21 Type 2 diabetes mellitus with diabetic nephropathy; I12.9 Hypertensive chronic kidney disease with stage 1 through stage 4 chronic kidney disease, or unspecified chronic kidney disease; I45.81 Long QT syndrome; N32.89 Other specified disorders of bladder; K42.9 Umbilical hernia without obstruction or gangrene; H10.9 Unspecified conjunctivitis; Z68.39 Body mass index [BMI] 39.0-39.9, adult; Z79.4 Long term (current) use of insulin; Z82.49 Family history of ischemic heart disease and other diseases of the circulatory system; Z82.0 Family history of epilepsy and other diseases of the nervous system

== ENCOUNTER 2017-10-03 10:54 | Emergency (ER) | payer OTHER ==
[~2017-10-03] VITALS: Ht 181.6 cm; Wt 136.0 kg
[~2017-10-03 10:54] MED LIST changes: +AMLO10TA2 PO; +ATOR-24 PO; -ATOR80TA PO; +CALC0.2510 PO; +CARV12.5 PO; +CLON0.2T PO; -CPR500 PO; +ERYOPO OP; +FRS/80 PO; -GLCSR25 PO; +INSDGI SQ; -MTR500 PO; +NPHA OP; +NVLG SQ; -SIME80CH PO
[2017-10-03 11:01] VITALS: TEMP 36.8; O2SAT 95; Ht 181.6 cm; Wt 136.0 kg
[2017-10-03] MEDS ORDERED: INSDGI SQ (11:37)
--- NOTE | 2017-10-03 11:43 | DIAGNOSTIC IMAGING REPORT ---
SINGLE VIEW CHEST CLINICAL HISTORY: Atypical chest pain. FINDINGS: An AP, portable, upright chest radiograph is compared to study dated 09/14/2017. The examination is degraded by portable technique and apical lordotic positioning. The heart is top normal for projection. The pulmonary vascular structures noncongested. Bibasilar atelectasis is observed. There is no airspace consolidation typical for pneumonia. No large pleural effusion or pneumothorax is seen. The bony thorax is grossly intact. IMPRESSION: Bibasilar atelectasis with no acute cardiopulmonary abnormality. Electronically signed by: Washington Chance M.D. 10/03/2017 11:41 AM Dictated Date/Time: 10/03/2017 11:40 AM
[2017-10-03 11:57] LABS: BASO % 0.5 %; BASO ABS # 0.04 K/uL (0-0.2); EOS % 3.8 %; EOS ABS # 0.29 K/uL (0-0.5); IG# 0.02 K/uL (0.00-0.02); LYMPH % 16.4 %; LYMPH ABS # 1.26 K/uL (1.2-3.4); MEAN CELL VOLUME 86.7 fL (80-100); MEAN CORPUSCULAR HEMOGLOBIN 29.6 pg (25-34); MEAN CORPUSCULAR HGB CONC 34.1 g/dl (32-36); MEAN PLATELET VOLUME 10.5 fL (7.4-10.4); MONO % 8.4 %; MONO ABS # 0.65 K/uL (0.11-0.59); NEUT % 70.6 %; NEUT ABS # 5.44 K/uL (1.4-6.5); PLATELET COUNT 164 K/uL (130-400); RED CELL DISTRIBUTION WIDTH CV 14.5 % (11.5-14.5); RED CELL DISTRIBUTION WIDTH SD 46.5 fL (36.4-46.3)
[2017-10-03 12:25] LABS: ALKALINE PHOSPHATASE 66 U/L (45-117); ALT/SGPT 18 U/L (12-78); AST/SGOT 17 U/L (15-37); BLOOD UREA NITROGEN 33 mg/dl (7-18); CALCIUM 8.9 mg/dl (8.5-10.1); CARBON DIOXIDE 30 mmol/L (21-32); CREATININE 2.49 mg/dl (0.60-1.40); GLUCOSE 75 mg/dl (70-99); LIPASE 769 U/L (73-393); PHOSPHORUS 4.1 mg/dl (2.5-4.9); POTASSIUM 4.4 mmol/L (3.5-5.1); SODIUM 141 mmol/L (136-145); TOTAL PROTEIN 7.3 gm/dl (6.4-8.2)
--- NOTE | 2017-10-03 13:19 | EMERGENCY ROOM VISIT NOTE ---
History Report prepared by Joshua: Jorge Reis Under the Supervision of: Dr. Buddy Ludwig M.D. First contact with patient: 10:56 Chief Complaint: BRADYCARDIA Stated Complaint: BRADYCARDIA History of Present Illness The patient is a 67 year old male who presents to the Emergency Room by EMS with complaints of constant bradycardia beginning today. [facility] for feeling generally unwell, and was found to have a heart rate of 35 bpm. The patient also complains of sinus congestion. He denies dizziness/ lightheadedness. He has an abdominal hernia that has been present for many years. The patient is a smoker. He notes that he did not have anything to eat today. [facility]. The patient believes that he took an extra dose of medication last night - and believes it was likely his beta-ginger. He is on Clonidine as well. Source of History: patient Onset: Today Quality: other (bradycardia) Timing: constant Note: The patient also complains of sinus congestion. He denies dizziness/ lightheadedness. Review of Systems See HPI for pertinent positives and negatives. A total of ten systems were reviewed and were otherwise negative. Past Medical & Surgical Medical Problems: (1) HTN (hypertension) Family History Hypertension Social History Smoking Status: Current Some Day Smoker Drug Use: none Marital Status: Housing Status: lives alone Occupation Status: unemployed Current/Historical Medications Scheduled Amlodipine Besylate (Norvasc), 10 MG PO DAILY Atorvastatin (Lipitor), 20 MG PO QAM Calcitriol (Rocaltrol Cap), 0.25 MCG PO DAILY Carvedilol (Coreg), 6.25 MG PO BID Clonidine Hcl (Catapres), 0.2 MG PO BID Erythromycin Opth (Erythromycin Opth), 1 APPLN OP TID Furosemide (Lasix), 80 MG PO QAM Insulin Aspart (Novolog), 10 UNITS SQ AC Insulin Glargine (Lantus), 50 UNITS SQ BID Tamsulosin Hcl (Flomax), 0.4 MG PO QPM Scheduled PRN Naphazoline/Pheniramine (Naphcon-A), 1 DROPS OP Q4H PRN for itchy, watery, irritated eyes Allergies Coded Allergies: Ragweed (Verified Allergy, Mild, [place], 10/03/17) Physical Exam Vital Signs Date Time Temp Pulse Resp B/P (MAP) Pulse Ox O2 Delivery O2 Flow Rate FiO2 10/03/17 13:44 76 18 162/84 95 10/03/17 11:03 47 10/03/17 11:01 36.8 43 18 167/85 95 Room Air 10/03/17 11:01 95 Room Air 10/03/17 11:01 96 Room Air Physical Exam GENERAL: Awake, alert, well-appearing, in no distress HENT: Normocephalic, atraumatic. Oropharynx unremarkable. Mucous membranes are dry. EYES: Normal conjunctiva. Sclera non-icteric. NECK: Supple. No nuchal rigidity. FROM. No JVD. RESPIRATORY: Clear to auscultation. CARDIAC: Sinus bradycardia. Extremities warm and well perfused. Pulses equal. ABDOMEN: Soft, non-distended. Obese abdomen. Large periumbilical hernia which is soft and non-tender. No rebound or guarding. RECTAL: Deferred. MUSCULOSKELETAL: Chest examination reveals no tenderness. The back is symmetrical on inspection without obvious abnormality. There is no CVA tenderness to palpation. No joint edema. LOWER EXTREMITIES: Calves are equal size bilaterally and non-tender. No edema. No discoloration. NEURO: Normal sensorium. No sensory or motor deficits noted. SKIN: No rash or jaundice noted. Medical Decision & Procedures ER Provider Diagnostic Interpretation: Radiology results as stated below per my review and radiologist interpretation: SINGLE VIEW CHEST FINDINGS: An AP, portable, upright chest radiograph is compared to study dated 09/14/2017. The examination is degraded by portable technique and apical lordotic positioning. The heart is top normal for projection. The pulmonary vascular structures noncongested. Bibasilar atelectasis is observed. There is no airspace consolidation typical for pneumonia. No large pleural effusion or pneumothorax is seen. The bony thorax is grossly intact. IMPRESSION: Bibasilar atelectasis with no acute cardiopulmonary abnormality. Electronically signed by: Washington Chance M.D. 10/03/2017 11:41 AM Laboratory Results 10/03/17 11:40 Red Blood Count 4.73, Mean Corpuscular Volume 86.7, Mean Corpuscular Hemoglobin 29.6, Mean Corpuscular Hemoglobin Concent 34.1, Mean Platelet Volume 10.5, Neutrophils (%) (Auto) 70.6, Lymphocytes (%) (Auto) 16.4, Monocytes (%) (Auto) 8.4, Eosinophils (%) (Auto) 3.8, Basophils (%) (Auto) 0.5, Neutrophils # (Auto) 5.44, Lymphocytes # (Auto) 1.26, Monocytes # (Auto) 0.65, Eosinophils # (Auto) 0.29, Basophils # (Auto) 0.04 10/03/17 11:40 Test 10/03/17 11:40 White Blood Count 7.70 K/uL (4.8-10.8) Red Blood Count 4.73 M/uL (4.7-6.1) Hemoglobin 14.0 g/dL (14.0-18.0) Hematocrit 41.0 % (42-52) Mean Corpuscular Volume 86.7 fL (80-100) Mean Corpuscular Hemoglobin 29.6 pg (25-34) Mean Corpuscular Hemoglobin Concent 34.1 g/dl (32-36) Platelet Count 164 K/uL (130-400) Mean Platelet Volume 10.5 fL (7.4-10.4) Neutrophils (%) (Auto) 70.6 % Lymphocytes (%) (Auto) 16.4 % Monocytes (%) (Auto) 8.4 % Eosinophils (%) (Auto) 3.8 % Basophils (%) (Auto) 0.5 % Neutrophils # (Auto) 5.44 K/uL (1.4-6.5) Lymphocytes # (Auto) 1.26 K/uL (1.2-3.4) Monocytes # (Auto) 0.65 K/uL (0.11-0.59) Eosinophils # (Auto) 0.29 K/uL (0-0.5) Basophils # (Auto) 0.04 K/uL (0-0.2) RDW Standard Deviation 46.5 fL (36.4-46.3) RDW Coefficient of Variation 14.5 % (11.5-14.5) Immature Granulocyte % (Auto) 0.3 % Immature Granulocyte # (Auto) 0.02 K/uL (0.00-0.02) Prothrombin Time 10.5 SECONDS (9.0-12.0) Prothromb Time International Ratio 1.0 (0.9-1.1) Anion Gap 3.0 mmol/L (3-11) Est Creatinine Clear Calc Drug Dose 41.9 ml/min Estimated GFR () 30.2 Estimated GFR (Non- 26.1 BUN/Creatinine Ratio 13.2 (10-20) Calcium Level 8.9 mg/dl (8.5-10.1) Phosphorus Level 4.1 mg/dl (2.5-4.9) Magnesium Level 2.3 mg/dl (1.8-2.4) Total Bilirubin 0.3 mg/dl (0.2-1) Direct Bilirubin < 0.1 mg/dl (0-0.2) Aspartate Amino Transf (AST/SGOT) 17 U/L (15-37) Alanine Aminotransferase (ALT/SGPT) 18 U/L (12-78) Alkaline Phosphatase 66 U/L (45-117) Troponin I < 0.015 ng/ml (0-0.045) Pro-B-Type Natriuretic Peptide 507 pg/ml (0-900) Total Protein 7.3 gm/dl (6.4-8.2) Albumin 3.0 gm/dl (3.4-5.0) Lipase 769 U/L (73-393) Thyroid Stimulating Hormone (TSH) 2.410 uIu/ml (0.300-4.500) Laboratory results reviewed by me ECG Per My Interpretation Indication: bradycardia Rate (beats per minute): 40 Rhythm: sinus bradycardia Findings: other (Normal axis. No ST elevations or depressions. ) ED Course 1058: The patient was evaluated in room B4B. A complete history and physical exam was performed. 1315: I reevaluated the patient. Discussed results and discharge instructions: he verbalized understanding and agreement. The patient is ready for discharge. Medical Decision I reviewed the patient's past medical history, medications, and the nursing notes as described above. Differential diagnosis: Etiologies such as benign positional vertigo, dehydration, hypovolemia, anemia, tumor, infection, hypoglycemia, electrolyte abnormalities, cardiac sources, intracerebral event, toxicologic, neurologic, as well as others were entertained. The patient is a 67 y/o gentleman with a pmhx of HTN and CKD who presents to the emergency department for bradycardia referred to ED by [facility]. Patient reports likely taking accidental double dose of his Coreg this morning and then check his HR at was 37. Seen at [facility] for scheduled f/u after recent admission for acute on chronic renal failure so referred to ED. Patient reports some fullness in his ear with some tinnitus, which is a long standing waxing and waning sx for him for years and is no different than usual. Otherwise he denies CP, SOB, lightheadedness, n/v, changes in vision. On arrival the patient is well-appearing, in NAD, AF, HR 40s but VS otherwise stable. Neuro intact. Labs unremarkable with Cr. returned to his baseline since his admission. CXR negative. Sinus bradycardia likely related to patient's extra coreg dose. Half life 7-10 hrs thus unlikely to have any worsening, given he took this in the morning. Patient denies having scale shooter and follows with different providers at the [facility]. Case d/w Dr. Khoury [place] cardiology, and we agree that given the patient is otherwise asymptomatic with clear etiology for his sinus bradycardia, no need for admission and can [facility]. Findings and plan for follow-up reviewed with patient. Patient agreeable and d/c'd per discharge instructions. Medication Reconcilliation Current Medication List: was personally reviewed by me Blood Pressure Screening Patient's blood pressure: Elevated blood pressure Blood pressure disposition: Referred to PCP Consults Time Called: 1238 Consulting Physician: Dr. Khoury - Cardiology Returned Call: [phone] I discussed the patient with Dr. Khoury. He agrees that if the patient feels well and is not-hypotensive, there is a strong enough explanation that the patient should be safe for discharge. The [facility]. Impression Primary Impression: Sinus bradycardia Scribe Attestation The scribe's documentation has been prepared under my direction and personally reviewed by me in its entirety. I confirm that the note above accurately reflects all work, treatment, procedures, and medical decision making performed by me. Departure Information Dispostion Home / Self-Care Referrals Carroll Brizuela D.O. (PCP) Patient Instructions ED Bradycardia, My [facility] Additional Instructions Please follow up with your primary care physician in the next 1-3 days for re- evaluation. Your slow her heart rate was likely due to taking an extra dose of her medications today. If your heart rate is below 60 you should skip your Coreg. Otherwise, your exam, EKG, chest xray, and lab results did not show signs of an emergent condition at this time. Return to the emergency department for worsening symptoms as described in the accompanying instructions.
[2017-10-03 13:44] VITALS: BP 162/84; PULSE 76; O2SAT 95
== END 2017-10-03 13:45 | disposition home or self-care (01) ==
LOC: EDBD 10:54 → C.EDB 10:55
DX: R00.1 Bradycardia, unspecified (principal); I10 Essential (primary) hypertension

== ENCOUNTER 2019-01-06 04:07 | Inpatient (IN) ==
--- OUTSIDE RECORDS SUMMARY | 2019-01-06 04:11 | External Medical Summary | Continuity of Care Document ---
:1950 Author Name Viviane Lugo Address Unavailable Unavailable , Care Team Providers Name Role Phone Avtar Santiago M.D. Unavailable [email or web address], [email or web address] Unavailable Unavailable Problems Active medical history not documented Allergies and Adverse Reactions Allergy history not documented Medications Medications not documented Procedures Procedures not documented Immunizations Immunizations not documented Plan of Treatment Planned Observations Planned Goals not documented Results No Known Results Results not documented Encounters Appointment; Chuck Santiago M.D. 02-Feb-2009 15:00 Encounter Diagnosis: Problem not documented
[2019-01-06 05:06] LABS: Basophils # (auto) 0.05 K/uL (0-0.2); Basophils % (auto) 0.4 %; Eosinophils # (auto) 0.21 K/uL (0-0.5); Eosinophils % (auto) 1.6 %; Hematocrit (blood only) 35.4 % (42-52); Hemoglobin 11.5 g/dL (14.0-18.0); Immature Granulocytes # (auto) 0.05 K/uL (0.00-0.02); Immature Granulocytes % (auto) 0.4 %; Lymphocytes # (auto) 1.08 K/uL (1.2-3.4); Lymphocytes % (auto) 8.1 %; Mean Corpuscular Hemoglobin 28.7 pg (25-34); Mean Corpuscular Hgb Conc 32.5 g/dL (32-36); Mean Corpuscular Volume 88.3 fL (80-100); Mean Platelet Volume 10.1 fL (7.4-10.4); Monocytes # (auto) 0.61 K/uL (0.11-0.59); Monocytes % (auto) 4.6 %; Neutrophils # (auto) 11.39 K/uL (1.4-6.5); Neutrophils % (auto) 84.9 %; Platelet Count 220 K/uL (130-400); RDW Coefficient of Variation 14.6 % (11.5-14.5); RDW Standard Deviation 47.5 fL (36.4-46.3); Red Blood Count 4.01 M/uL (4.7-6.1); White Blood Count 13.39 K/uL (4.8-10.8)
[2019-01-06 05:21] LABS: Partial Thromboplastin Ratio 0.9
[2019-01-06 05:24] LABS: Alanine Aminotransferase 20 U/L (12-78); Albumin Level 3.3 gm/dl (3.4-5.0); Aspartate Aminotransferase 16 U/L (15-37); BUN Creatinine Ratio 16.5 (10-20); Blood Urea Nitrogen 50 mg/dl (7-18); Calcium 8.4 mg/dl (8.5-10.1); Carbon Dioxide 27 mmol/L (21-32); Chloride 108 mmol/L (98-107); Creatinine Clr Calc Pharmacy 34.2 ml/min; Est GFR (African American) 23.9; Est GFR (Non-African American) 20.6; Glucose 117 mg/dl (70-99); Potassium 4.3 mmol/L (3.5-5.1); Sodium 141 mmol/L (136-145)
[2019-01-06 05:29] LABS: Albumin Globulin Ratio 0.8 (0.9-2); Alkaline Phosphatase 75 U/L (45-117); Bilirubin,Total 0.4 mg/dl (0.2-1); Globulin 4.1 gm/dl (2.5-4.0); NT Pro B Type Natriuretic Pept 1003 pg/ml (0-900); Total Protein 7.4 gm/dl (6.4-8.2); Troponin I < 0.015 ng/ml (0-0.045)
[2019-01-06 05:35] LABS: Partial Thromboplastin Time 25.5 Seconds (21.0-31.0); Prothrombin Time 10.6 Seconds (9.0-12.0)
[2019-01-06 05:38] LABS: D Dimer 750 ug/L FEU (0-500)
--- NOTE | 2019-01-06 06:53 | XRay Report ---
XR chest 1V portable HISTORY: 68 years-old Male Dyspnea acute shortness of breath COMPARISON: Chest radiograph 10/03/2017 TECHNIQUE: Portable AP view of the chest FINDINGS: Inferior right costophrenic angle is partially imaged. Cardiac silhouette is enlarged. Bibasilar opac ities are noted with blunting of the costophrenic angles, unchanged. No pneumothorax or overt pulmona ry edema. Bones of the chest appear grossly intact. IMPRESSION: 1. Cardiomegaly without overt pulmonary edema. 2. Bibasilar opacities suggest probable atelectasis. The above report was generated using voice recognition software. It may contain grammatical, syntax o r spelling errors. Electronically signed by: Shaun Dumont M.D. 01/06/2019 6:51 AM
--- NOTE | 2019-01-06 07:35 | Emergency Department Note ---
Entered by Kev Rene acting as a scribe for Tameka Andrew DO History of Present Illness General Chief complaint: Shortness of Breath/Dyspnea Stated complaint: BREATHING DIFFICULTY Time Seen by Provider: 01/06/19 04:15 Source: patient History of Present Illness Onset (ago): hour(s) (24) Location: chest Pain Consistency: + other (worsening) Quality: + other (SOB) Associated symptoms: + denies other symptoms (trouble moving his bowels) and + other (abdominal pain); no chest pain The patient is a 68 y/o male who presents to the ED w/ CC of worsening shortness of breath beginning 24 hours ago. The patient states he has had shortness of breath and central abdominal pain beginning 24 hours ago. He reports his symptom s gradually worsened throughout the day, and he felt the most short of breath this evening. The patient notes he does not wear oxygen at home, and the C-PAP placed by EMS significantly improved his symptoms. He states he is also on Lasix and did not take his dose today because he simply forgot. The patient reports he also had an increased blood pressure and is not sure why. He notes a chronic cough for the past 10 years. The patient states he was here twice in the past 6 years for a high creatinine level. [facility] The patient denies chest pain, trouble moving his bowels, and a history of pneumonia and CHF. He notes a history of sleep apnea. Nursing staff states the patient had an O2Sat of 76 on Room air and EMS placed the patient on C-PAP in route. Home Medications Home Medications Medication Instructions Recorded Confirmed Type albuterol sulfate 2 puff INHALATION Q6H PRN 01/06/19 01/06/19 History amlodipine 10 mg PO QAM 01/06/19 01/06/19 History atorvastatin 20 mg PO PM 01/06/19 01/06/19 History carvedilol 3.125 mg PO BID 01/06/19 01/06/19 History clonidine HCl 0.1 mg PO BID 01/06/19 01/06/19 History furosemide [Lasix] 80 mg PO BID 01/06/19 01/06/19 History hydralazine 100 mg PO TID 01/06/19 01/06/19 History insulin aspart U-100 [Novolog 10 unit SUBCUT AC 01/06/19 01/06/19 History PenFill U-100 Insulin] insulin glargine [Lantus Solostar 60 unit SUBCUT BID 01/06/19 01/06/19 History U-100 Insulin] loratadine 10 mg PO DAILY PRN 01/06/19 01/06/19 History sertraline 25 mg PO QAM 01/06/19 01/06/19 History tamsulosin 0.4 mg PO QAM 01/06/19 01/06/19 History Allergies Allergy/AdvReac Type Severity Reaction Status Date / Time ragweed pollen Allergy Mild [place]GE[place] Verified 01/06/19 06:57 Past Med/Surg History Medical History Sleep apnea (Chronic) HTN (hypertension) (Chronic) Surgical History No pertinent past surgical history Family History Other Hypertension Social History Feels Safe at Home: Yes Smoking Status: Former smoker Review of Systems See HPI for pertinent positives & negatives. and A total of 10 systems reviewed and were otherwise negative Physical Exam Vital Signs Vital Signs - 24 hr 01/06/19 04:13 01/06/19 04:22 01/06/19 04:30 Temperature 36.7 C Temperature Source Oral Sepsis Recent Fever Within 48 Hours No Sepsis New/Unexplained Change in Mental Status No Sepsis Action Taken by Nursing No Action Required Pulse Rate 75 81 67 Pulse Rate from SpO2 Sensor 75 67 Respiratory Rate 19 28 H 21 Respiratory Effort / Characteristics Labored Short of Breath Respiratory Pattern Tachypnea Blood Pressure 158/76 H 158/78 H 130/59 L Blood Pressure [Left Arm] Blood Pressure Mean 103 104 82 Blood Pressure Mean [Left Arm] Pulse Oximetry 96 98 94 Oxygen Delivery Method CPAP CPAP CPAP Fraction of Inspired Oxygen SaO2/FiO2 Ratio 01/06/19 04:31 01/06/19 04:35 01/06/19 05:00 Temperature Temperature Source Sepsis Recent Fever Within 48 Hours Sepsis New/Unexplained Change in Mental Status Sepsis Action Taken by Nursing Pulse Rate 67 71 Pulse Rate from SpO2 Sensor 63 Respiratory Rate 23 Respiratory Effort / Characteristics Spontaneous Labored Respiratory Pattern Tachypnea Blood Pressure 140/63 Blood Pressure [Left Arm] Blood Pressure Mean 88 Blood Pressure Mean [Left Arm] Pulse Oximetry 95 98 95 Oxygen Delivery Method CPAP Fraction of Inspired Oxygen 30 30 SaO2/FiO2 Ratio 316 01/06/19 05:30 01/06/19 06:00 01/06/19 07:00 Temperature Temperature Source Sepsis Recent Fever Within 48 Hours Sepsis New/Unexplained Change in Mental Status Sepsis Action Taken by Nursing Pulse Rate 59 L Pulse Rate from SpO2 Sensor 58 L 57 L Respiratory Rate 18 Respiratory Effort / Characteristics Respiratory Pattern Blood Pressure 126/64 130/65 Blood Pressure [Left Arm] 132/57 L Blood Pressure Mean 84 86 Blood Pressure Mean [Left Arm] 82 Pulse Oximetry 96 95 95 Oxygen Delivery Method CPAP CPAP BiPAP Fraction of Inspired Oxygen SaO2/FiO2 Ratio General: The patient is comfortable on BIPAP. HEENT: Head - normocephalic and atraumatic Pupils are equal, round, and reactive to light. Extraocular eye muscles are intact, and sclera are anicteric. Nose - moist nasal mucosa without discharge. Mouth - moist buccal mucosa. Oropharynx is nonerythematous and there is no tonsillar exudate or edema noted. Neck: Supple; no JVD, nuchal rigidity, cervical lymphadenopathy. Heart: Regular rate and rhythm. There is a normal S1 and S2 with no murmurs, clicks, or gallops appreciated. Lungs: Clear to auscultation bilaterally with no wheezes, rales, or rhonchi. Abdomen: Soft, tenderness to palpation above the umbilicus, distended, with good bowel sounds. There are no palpable hepatosplenomegaly. There is no guarding, rigidity, or rebound noted. There is an obvious lower umbilical hernia noted. Extremities: No evidence of cyanosis or clubbing. Trace pedal edema. There are easily palpable peripheral pulses. Skin: warm and dry with good turgor and no rashes. Course 0413: The patient was evaluated in room B05. A complete history and physical examination were performed. The patient was placed on BiPAP. Nursing notes and previous electronic medical records were reviewed. IV lock was established and labs were drawn as above. The patient had an EKG and a portable chest x-ray 0544: The [facility] is going to be contacted to see if the patient may be evaluated by our hospitalist here or if he needs to be transferred. 0554: The patient is able to be evaluated by our hospitalist service. [facility] Hospitalist will be paged. 0556: Upon reevaluation, I discussed findings and results with him. He is more comfortable. He had a fistula placed in his right arm for dialysis. The patient has not received dialysis yet through his fistula. He verbalized agreement of the treatment plan. The patient will be evaluated for further management and care. 0635: I spoke with Dr. Hercules of the [facility] Hospitalist Service. The patient will be evaluated for further management and care. 0715: I discussed the case with Dr. Myers here in the emergency department. Medical Decision Making Differential Diagnosis Differential diagnosis includes: CHF, pneumothorax, pneumonia, PE. Medical Records Attestation: I reviewed the patient's medical records. Home Medications Current Medication List: was personally reviewed by me Laboratory Data Attestation: I reviewed the patient's lab results. Result diagrams: 01/06/19 04:53 01/06/19 04:53 Lab Results 01/06/19 01/06/19 01/06/19 Range/Units 04:53 04:53 04:53 WBC 13.39 H (4.8-10.8) K/uL RBC 4.01 L (4.7-6.1) M/uL Hgb 11.5 L (14.0-18.0) g/dL Hct 35.4 L (42-52) % MCV 88.3 (80-100) fL MCH 28.7 (25-34) pg MCHC 32.5 (32-36) g/dL RDW Std Deviation 47.5 H (36.4-46.3) fL RDW Coeff of Atif 14.6 H (11.5-14.5) % Plt Count 220 (130-400) K/uL MPV 10.1 (7.4-10.4) fL Immature Gran % (Auto) 0.4 % Neut % (Auto) 84.9 % Lymph % (Auto) 8.1 % [place] % (Auto) 4.6 % Eos % (Auto) 1.6 % Baso % (Auto) 0.4 % Immature Gran # (Auto) 0.05 H (0.00-0.02) K/uL Neut # (Auto) 11.39 H (1.4-6.5) K/uL Lymph # (Auto) 1.08 L (1.2-3.4) K/uL [place] # (Auto) 0.61 H (0.11-0.59) K/uL Eos # (Auto) 0.21 (0-0.5) K/uL Baso # (Auto) 0.05 (0-0.2) K/uL PT 10.6 (9.0-12.0) Seconds INR 1.0 (0.9-1.1) APTT 25.5 (21.0-31.0) Seconds PTT Ratio 0.9 D-Dimer 750 H* (0-500) ug/L FEU Sodium 141 (136-145) mmol/L Potassium 4.3 (3.5-5.1) mmol/L Chloride 108 H (98-107) mmol/L Carbon Dioxide 27 (21-32) mmol/L Anion Gap 6.0 (3-11) BUN 50 H (7-18) mg/dl Creatinine 3.01 H (0.6-1.4) mg/dl Est Cr Clr Drug Dosing 34.2 ml/min Est GFR ( Amer) 23.9 Est GFR (Non-Af Amer) 20.6 BUN/Creatinine Ratio 16.5 (10-20) Glucose 117 H (70-99) mg/dl Calcium 8.4 L (8.5-10.1) mg/dl Total Bilirubin 0.4 (0.2-1) mg/dl AST 16 (15-37) U/L ALT 20 (12-78) U/L Alkaline Phosphatase 75 (45-117) U/L Troponin I < 0.015 (0-0.045) ng/ml NT-Pro-B Natriuret Pep 1003 H (0-900) pg/ml Total Protein 7.4 (6.4-8.2) gm/dl Albumin 3.3 L (3.4-5.0) gm/dl Globulin 4.1 H (2.5-4.0) gm/dl Albumin/Globulin Ratio 0.8 L (0.9-2) Imaging Data Radiologist's Impression: Radiology results as stated below per my review and the radiologist's interpretation: XR chest 1V portable HISTORY: 68 years-old Male Dyspnea acute shortness of breath COMPARISON: Chest radiograph 10/03/2017 TECHNIQUE: Portable AP view of the chest FINDINGS: Inferior right costophrenic angle is partially imaged. Cardiac silhouette is enlarged. Bibasilar opacities are noted with blunting of the costophrenic angles, unchanged. No pneumothorax or overt pulmonary edema. Bones of the chest appear grossly intact. IMPRESSION: 1. Cardiomegaly without overt pulmonary edema. 2. Bibasilar opacities suggest probable atelectasis. The above report was generated using voice recognition software. It may contain grammatical, syntax or spelling errors. Electronically signed by: Shaun Dumont M.D. 01/06/2019 6:51 AM ECG Data Attestation: I personally reviewed and interpreted this ECG as follows: Indication: SOB/dyspnea Rate (beats per minute): 78 Rhythm: normal sinus Findings: + 1st degree AV block; no ST depression, no ST elevation and no acute ischemic change Blood Pressure Blood Pressure Findings: Normal blood pressure Blood Pressure Disposition: did not require urgent referral MDM Narrative The patient is a 68 y/o male who presents to the ED w/ CC of worsening shortness of breath beginning 24 hours ago. The patient also describes some acute abdominal distention. Upon EMS arrival at his home, the patient's O2 saturation was 76% on room air. He was placed on CPAP at that time. Upon presentation to the emergency department, the patient's oxygen saturation was in the mid 90s. He was switched to BiPAP and evaluated here in the ER. Chest x-ray showed no evidence of overt pulmonary edema. However, the patient did have an elevated BNP at greater than 1000. Lung sounds were clear on physical exam. I was concerned about the possibility of PE. The patient did have an elevated d- dimer. However, he has a creatinine of 3 and therefore I did not feel comfortable performing a contrasted CT scan. The case was discussed with Dr. Joel and he recommended V/Q scanning. This was ordered. They are in the process of obtaining the isotope. Upon repeat examination of the patient, he was able to sleep and maintain normal oxygen saturations. I reviewed the results with him. Impression & Plan Hypoxia, NOMAN (acute kidney injury) Critical Care Time Critical Care Time: Yes Total Critical Care Time: 30 I have personally spent 30 minutes of critical care time in the direct management of this patient. This includes bedside care, interpretation of diagnostic studies, and testing, discussion with consultants, patient, and family members, and other required patient management activities. This 30 minutes is in excess of all separately billable procedures. Discharge Plan Visit Data Chief Complaint: Shortness of Breath/Dyspnea Stated Complaint: BREATHING DIFFICULTY ED Provider: Tameka Adnrew Discharge Problem: Hypoxia, NOMAN (acute kidney injury) Patient Disposition: Being Evaluated by Hospitalist Forms Stand Alone Forms: My [facility] Prescriptions Prescriptions: No Action furosemide [Lasix] 40 mg Tablet 80 mg PO BID RF: 0 atorvastatin 40 mg Tablet 20 mg PO PM RF: 0 carvedilol 6.25 mg Tablet 3.125 mg PO BID RF: 0 amlodipine 10 mg Tablet 10 mg PO QAM RF: 0 hydralazine 100 mg Tablet 100 mg PO TID RF: 0 Novolog PenFill U-100 Insulin 100 unit/mL Cartridge 10 unit SUBCUT AC RF: 0 Lantus Solostar U-100 Insulin 100 unit/mL (3 mL) Insulin Pen 60 unit SUBCUT BID RF: 0 clonidine HCl 0.1 mg Tablet 0.1 mg PO BID RF: 0 tamsulosin 0.4 mg Capsule 0.4 mg PO QAM RF: 0 albuterol sulfate 90 mcg/actuation Hfa Aerosol Inhaler 2 puff INHALATION Q6H PRN (Reason: Shortness Of Breath) RF: 0 sertraline 50 mg Tablet 25 mg PO QAM RF: 0 loratadine 10 mg Tablet 10 mg PO DAILY PRN (Reason: Allergy Symptoms) RF: 0 Referrals Referrals: Carroll Brizuela [Primary Care Provider] - The scribe's documentation has been prepared under my direction and personally reviewed by me in its entirety. I confirm that the note above accurately reflects all work, treatment, procedures, and medical decision making performed by me.
[2019-01-06] MEDS ORDERED: BUMETANIDE 2 MG in SYRINGE 0 ML IV ONE (08:00)
[2019-01-06] MEDS ORDERED: ACETAMINOPHEN 325 MG TAB PO PRN (09:25)
[2019-01-06] MEDS ORDERED: POLYETHYLENE (MIRALAX) 17 GM PACK PO PRN (09:25)
[2019-01-06] MEDS ORDERED: ZOLPIDEM TARTRATE 5 MG TAB PO PRN (09:25)
[2019-01-06] MEDS ORDERED: ALBUTEROL HFA 8 GM INHALER INH PRN (09:25)
[2019-01-06] MEDS ORDERED: LORATADINE 10 MG TAB PO PRN (09:25)
[2019-01-06] MEDS ORDERED: INSULIN GLARGINE SOLOSTAR 100 UNITS/ML 3 ML PEN SQ SCH (09:45)
[2019-01-06] MEDS ORDERED: BUMETANIDE 10 MG in DEXTROSE 5% 10 ML IV SCH (09:45)
[2019-01-06] MEDS ORDERED: GLUCOSE 40% GEL 15 GM TUBE PO PRN (10:00)
[2019-01-06] MEDS ORDERED: DEXTROSE 50% 50 ML SYRINGE IV PRN (10:00)
[2019-01-06] MEDS ORDERED: CARBOHYDRATES FOR HYPOGLYCEMIA PO PRN (10:00)
[2019-01-06] MEDS ORDERED: GLUCOSE 10 TABS/TUBE PO PRN (10:00)
[2019-01-06] MEDS ORDERED: GLUCAGON FOR INJ 1 MG VIAL IM PRN (10:00)
[2019-01-06] MEDS ORDERED: PHARMACY GLYCEMIC MGMT CONSULT PRN (10:10)
[2019-01-06] MEDS ORDERED: PERFLUTREN LIPID MICROSPHERE (DEFINITY) IV ONE (10:26)
--- NOTE | 2019-01-06 10:44 | Nephrology Consultation ---
Date of Consultation January 06, 2019 Assessment & Plan (1) Acute respiratory failure: (2) Hypertensive kidney disease with CKD stage IV: 68-year-old gentlemen admitted to the hospital with acute respiratory failure or and slight change in creatinine from baseline. Has baseline stage III CKD with variable creatinine around 3, on admission creatinine 3.4 which is most likely his baseline with some variability not to acute kidney injury. Unclear etiology for acute respiratory failure as patient did not seem to be overtly volume overloaded and he was taking avg diuretics until the morning of the day before admission. There is concern for pulmonary embolism as the patient was not overtly volume overloaded, respiratory C distress started suddenly and D-dimer was elevated however patient responded nicely to diuretics and respiratory status improved. EKG and cardiac enzymes are unremarkable. --Suggest continuing on Bumex 2 milligram twice a day --agree with waiting on CTA as patient's respiratory status improved with diuretics and get a V/Q scan when isotope available and if there is high probability on V/Q scan and patient should be started on anticoagulation. If V/Q scan is low probability but clinically there is high likelihood for pulmonary embolism then it would be okay to consider CTA knowing that with patient's underlying advanced CKD he will have her risk for contrast induced nephropathy. Discussed briefly with the patient and patient verbalized understanding and agreeable to the plan. He has a AV fistula which is currently maturing and not ready to be used yet. Renal function seems pretty close to his baseline and electrolyte acceptable. He is responding nicely to diuretics and blood pressure is well controlled --will need close monitoring of renal function --no need for Epogen for anemia at this time. He has nephrology care at [facility]. --no acute indication for dialysis at this time however with being on high dose of diuretics, there is definitely risk for worsening of renal function in near future and need for dialysis. Eventually patient will have to make decision regarding outpatient dialysis when needed whether he would like to have outpatient dialysis at our [facility] or a [facility] --right arm nephrology precaution --dose medication for GFR less than 30 --avoid nephrotoxic medications Will follow Thank you for allowing me to participate in your patient's care. It was a pleasure to see Angel (3) HTN (hypertension): History of Present Illness Reason for Consultation: Acute kidney injury with history of advanced CKD. Attending Physician: Stephon Myers MD History of Present Illness Angel Solorio is a 68-year-old gentlemen with past medical history significant for stage IV CKD, hypertension, diabetes admitted to the hospital with acute respiratory failure. Nephrology consult was requested to manage acute kidney injury with history of underlying advanced CKD. Electronic medical records including labs and imaging are reviewed in detail during patient's visit. Angel presented to the hospital acute shortness of breath which started almost 24 hours prior to admission. He reports history of occasional shortness of breath before with fluid overload, has been on Lasix 80 milligram twice a day at home. However at this time he fell like it was much worse than before. His last dose of Lasix was yesterday morning. Reports good response to home diuretics dose. He denies any dietary indiscretion. Denies chest pain. Denies taking NSAIDs. Denies cough, fever or chills. En route to the hospital EMS found his oxygen saturation in high 70s and put him on CPAP.. On arrival to ER his oxygen saturation was above 90. BNP was more than 1000, EKG and cardiac enzymes are unremarkable. Chest x-ray showed cardiomegaly without overt pulmonary edema. D-dimer was elevated. V/Q scan was planned however currently pending waiting on isotope. He was given IV Bumex and he already made more than 700 mL, currently on nasal cannula oxygen and he feels like his shortness of breath already much improved. He has stage IV CKD, baseline creatinine has been quite variable around 3.0. Has low to moderate degree proteinuria. CKD has been attributed to hypertensive nephropathy, never had a kidney biopsy. No family history of chronic kidney disease or end-stage renal disease. Denies chronic NSAID use. He has right brachiocephalic AV fistula placed a month ago currently maturing. Follows with [facility] in [place]. On admission creatinine was 3.4, electrolyte acceptable. Blood pressure seems to be well controlled. At home was on Lasix 80 milligram twice a day but not on any SUZANNE-inhibitor or ARB. Hypertension seems to be relatively well controlled on amlodipine, hydralazine, carvedilol, clonidine and Lasix. Diabetes, on insulin, has history of proteinuria. Allergies Allergy/AdvReac Type Severity Reaction Status Date / Time ragweed pollen Allergy Mild [place] Verified 01/06/19 06:57 Home Medications Home Medications Medication Instructions Recorded Confirmed Type albuterol sulfate 2 puff INHALATION Q6H PRN 01/06/19 01/06/19 History amlodipine 10 mg PO QAM 01/06/19 01/06/19 History atorvastatin 20 mg PO PM 01/06/19 01/06/19 History carvedilol 3.125 mg PO BID 01/06/19 01/06/19 History clonidine HCl 0.1 mg PO BID 01/06/19 01/06/19 History furosemide [Lasix] 80 mg PO BID 01/06/19 01/06/19 History hydralazine 100 mg PO TID 01/06/19 01/06/19 History insulin aspart U-100 [Novolog 10 unit SUBCUT AC 01/06/19 01/06/19 History PenFill U-100 Insulin] insulin glargine [Lantus Solostar 60 unit SUBCUT BID 01/06/19 01/06/19 History U-100 Insulin] loratadine 10 mg PO DAILY PRN 01/06/19 01/06/19 History sertraline 25 mg PO QAM 01/06/19 01/06/19 History tamsulosin 0.4 mg PO QAM 01/06/19 01/06/19 History Patient History Medical History Sleep apnea (Chronic) HTN (hypertension) (Chronic) Surgical History No pertinent past surgical history Family History Other Hypertension Social History Feels Safe at Home: Yes Smoking Status: Former smoker Review of Systems Review of Systems: All systems reviewed & are unremarkable except as noted in HPI & below Physical Exam Constitutional: WD/WN, vitals as above + ill appearing, + obese and + in distress; no acute distress Eyes: PERRL, conjunctivae normal, anicteric sclerae ENMT: external ear and nose normal, oropharynx normal Ears: no hearing impairment Neck: trachea midline Respiratory: normal respiratory effort, lungs clear to auscultation no cough Auscultation: no crackles, no rales and no wheezes Cardiovascular: Rate/Rhythm: regular rate and regular rhythm Heart Sounds: normal S1 and normal S2 Extremities: + edema (1+ bilateral lower extremity edema) and + AV fistula (Right brachiocephalic AV fistula with thrill and bruit) Gastrointestinal (Abdomen): normal bowel sounds, soft, nontender, no hepatosplenomegaly Inspection/Auscultation: + abdomen distended and normal bowel sounds Percussion/Palpation: abdomen nontender, no guarding and abdomen not rigid Musculoskeletal: Head/Neck/Chest: normocephalic, head atraumatic and neck supple Extremities: extremities normal to inspection Skin: no rashes, warm and dry Neurologic: moves all extremities and awake Psychiatric: A+Ox3, euthymic affect Results & Data Vital Signs (Past 12 Hours) Vital Signs Temp Pulse Resp BP BP Pulse Ox 01/06/19 08:50 133/59 L 97 01/06/19 07:00 18 132/57 L 95 01/06/19 06:00 130/65 95 01/06/19 05:30 59 L 126/64 96 01/06/19 05:00 140/63 95 01/06/19 04:35 71 23 98 01/06/19 04:31 67 95 01/06/19 04:30 67 21 130/59 L 94 01/06/19 04:22 36.7 C 81 28 H 158/78 H 98 01/06/19 04:13 75 19 158/76 H 96 PG Care Time/CCT Total # of Minutes Spent Total Time Spent with Patient: Total time spent is greater than 50% in coordination of care (as documented) at patient's floor/unit and/or counseling patient:
--- NOTE | 2019-01-06 12:00 | Nuclear Medicine Report ---
NM pul vent and perfuse CLINICAL HISTORY: 68 years-old Male with hypoxia/ sob. Acute hypoxia with shortness of breath COMPARISON STUDY: Chest radiograph of same day. TECHNIQUE: Initially, ventilation images of both lungs are obtained following the inhalation of 30.1 mCi of aerosolized technetium 99m DTPA. Subsequently, perfusion images of both lungs were obtained fo llowing the IV administration of 5.8 mCi of technetium 99m MAA. Ventilation and perfusion images were acquired in the anterior, posterior, and oblique projections. FINDINGS: A chest x-ray performed on same day demonstrated cardiomegaly with bibasilar opacities. Clumping of radiotracer within the perihilar distributions is noted on the ventilation images which l imits the exam. Swallowed radiotracer material is noted within the esophagus and stomach. There are n o large segmental perfusion defects identified. IMPRESSION:Low probability for pulmonary embolus. The above report was generated using voice recognition software. It may contain grammatical, syntax o r spelling errors. Electronically signed by: Shaun Dumont M.D. 01/06/2019 11:59 AM
--- NOTE | 2019-01-06 12:02 | History & Physical Report ---
Date of Service January 06, 2019 Assessment & Plan (1) Acute respiratory failure: Admit to MICU Vital signs as per MICU Bumex 2 mg twice daily Continue supplemental oxygen and keep oxygenation above 92% Strict in and out Daily weight CMP every 6 hours, replenish electrolytes as necessary CMP, BNP daily VQ scan low probability of pulmonary embolism Consult nephrology, appreciate recommendations. CPAP at night for sleep apnea DVT prophylaxis heparin 5000 every 8 hours Full code Present on Admission?: Yes (2) Congestive heart failure, acute: As the above (3) HTN (hypertension): Continue home medication: Amlodipine 10 mg p.o. every morning, hydralazine 100 mg p.o. 3 times daily Heart healthy low-sodium diet Present on Admission?: Yes (4) Hypertensive kidney disease with CKD stage IV: Continue monitoring kidney function Avoid nephrotoxic agents Appreciate nephrology recommendations Present on Admission?: Yes (5) Diabetes mellitus type 2 in nonobese: Accu-Cheks before meals and at bedtime continue home dose of insulin and managed better per glycemic protocol pharmacy. (6) Hypercholesterolemia: Continue atorvastatin 20 mg p.o. nightly Present on Admission?: Yes History of Present Illness Chief Complaint: Shortness of breath Primary Care Provider: Carroll Brizuela Patient is a 68 years old male with past medical history of congestive heart failure, CKD stage IV, sleep apnea, hypertension presents to the emergency room with a complaint of shortness of breath for 24 hours, gaining some weight approximately 10 pounds and having swollen lower extremity. Patient had dialysis fistula placed in September 2018 at the [facility] because of his CKD stage IV. Fistula is in the process of maturation and is not in use as of right now. Patient was brought brought by an ambulance and because of his severe shortness of breath and oxygenation down to 76% he was placed on CPAP. In the emergency room patient was initially placed on BiPAP but then after dose of Bumex 2 mg IV his oxygenation improved and he was tolerating 4 L as 98%. The institution at this time did not have available VQ scan and order to do so, isotope was needed to come form [place], [place] which will several hours. Since patient O2 sat improved significantly after Bumex it was more obvious that patient has more likely congestive heart failure versus pulmonary embolism and brisk diuresis helped him significantly to maintain his oxygenation 98% on 4 L. In the meantime VQ scan is now available to be done here so we will cancel CTA of the chest. Labs were reviewed: White blood cell count 13.39 hemoglobin 11.5 hematocrit 35.4 platelets 220, sodium 141 potassium 4.3 chloride 108 BUN 50 creatinine 3.01, glucose 117. Chest x-ray cardiomegaly without overt pulmonary edema, bibasilar opacities suggesting probable atelectasis. Case was discussed and decision was made to admit patient to the MICU. Patient denies fever chills chest pain abdominal pain frequency urgency hemoptysis hematuria dysuria melena. Allergies Allergy/AdvReac Type Severity Reaction Status Date / Time ragweed pollen Allergy Mild [place] Verified 01/06/19 06:57 Home Medications Home Medications Medication Instructions Recorded Confirmed Type albuterol sulfate 2 puff INHALATION Q6H PRN 01/06/19 01/06/19 History amlodipine 10 mg PO QAM 01/06/19 01/06/19 History atorvastatin 20 mg PO PM 01/06/19 01/06/19 History carvedilol 3.125 mg PO BID 01/06/19 01/06/19 History clonidine HCl 0.1 mg PO BID 01/06/19 01/06/19 History furosemide [Lasix] 80 mg PO BID 01/06/19 01/06/19 History hydralazine 100 mg PO TID 01/06/19 01/06/19 History insulin aspart U-100 [Novolog 10 unit SUBCUT AC 01/06/19 01/06/19 History PenFill U-100 Insulin] insulin glargine [Lantus Solostar 60 unit SUBCUT BID 01/06/19 01/06/19 History U-100 Insulin] loratadine 10 mg PO DAILY PRN 01/06/19 01/06/19 History sertraline 25 mg PO QAM 01/06/19 01/06/19 History tamsulosin 0.4 mg PO QAM 01/06/19 01/06/19 History Past Med/Surg History Medical History Sleep apnea (Chronic) HTN (hypertension) (Chronic) Surgical History No pertinent past surgical history Family History Other Hypertension Social History Preferred Language: Swedish Communication Ability: Effective Mobile Qa Tester Required: Yes Beliefs That Will Affect Care: None Current Living Situation: Alone Other Information That Helps Us Care for You: No Feels Safe at Home: Yes Safety Concerns: Feels Safe At This Time Smoking Status: Never smoker Hx Alcohol Use: No Hx Substance Use: No Review of Systems Review of Systems: All systems reviewed & are unremarkable except as noted in HPI & below Physical Exam Constitutional: WD/WN, vitals as above well developed and + obese Eyes: PERRL, conjunctivae normal, anicteric sclerae ENMT: external ear and nose normal, oropharynx normal Neck: trachea midline, no thyromegaly Respiratory: + respiratory distress, + dullness to percussion and + tachypneic Cardiovascular: Heart Sounds: normal S1 and normal S2 Palpation: + palpable S3 and + palpable S4 2+ pitting edema bilaterally Gastrointestinal (Abdomen): normal bowel sounds, soft, nontender, no hepatosplenomegaly Musculoskeletal: no cyanosis or clubbing, extremities motor strength 5/5 Skin: no rashes, warm and dry Neurologic: patellar DTR's 2+ bilat, sensation intact Psychiatric: A+Ox3, euthymic affect Genitourinary: no testicular masses, no penis abnormality Lymphatic: no cervical or axillary lymphadenopathy Results & Data Vital Signs (Past 12 Hours) Vital Signs Temp Pulse Resp BP BP Pulse Ox 01/06/19 09:11 36.7 C 64 18 142/61 H 93 01/06/19 08:50 133/59 L 97 01/06/19 07:00 18 132/57 L 95 01/06/19 06:00 130/65 95 01/06/19 05:30 59 L 126/64 96 01/06/19 05:00 140/63 95 01/06/19 04:35 71 23 98 01/06/19 04:31 67 95 01/06/19 04:30 67 21 130/59 L 94 01/06/19 04:22 36.7 C 81 28 H 158/78 H 98 01/06/19 04:13 75 19 158/76 H 96 Code Status & VTE Plan Code Status Full code VTE Prophylaxis Plan VTE Prophylaxis will be ordered: Yes PG Care Time/CCT Total # of Minutes Spent Total Time Spent with Patient: Total time spent is greater than 50% in coordination of care (as documented) at patient's floor/unit and/or counseling patient:
[2019-01-06] MEDS: AMLODIPINE BESYLATE 5 MG TAB PO SCH (12:08)
[2019-01-06] MEDS: CARVEDILOL 3.125 MG TAB PO SCH ×2 (12:08→21:20)
[2019-01-06] MEDS: HydrALAZINE TAB 50 MG TAB PO SCH ×3 (12:08→21:19)
[2019-01-06] MEDS: metOLazone 5 MG TABLET PO SCH (12:09)
[2019-01-06] MEDS: SERTRALINE HCL 50 MG TABLET PO SCH (12:09)
[2019-01-06] MEDS: cloNIDine HCl 0.1 MG TAB PO SCH ×2 (12:27→21:20)
[2019-01-06] MEDS: INSULIN ASPART 100 UNITS/ML 3 ML PEN SC SCH ×3 (12:28→21:18)
[2019-01-06 12:58] LABS: Appearance Urine Clear (Clear); Bacteria Urine Automated Negative (Negative); Bilirubin Urine Negative (Negative); Blood Urine 2+ (Negative); Color Urine Yellow; Glucose Urine UA Negative (Negative); Ketones Urine Negative (Negative); Leukocyte Esterase Urine Trace (Negative); Nitrite Urine Negative (Negative); Protein Urine 1+ (Negative); RBC Urine Automated >30 /hpf (0-4); Specific Gravity Urine 1.014 (1.000-1.030); Urobilinogen Urine Negative (Negative)
[2019-01-06 13:40] LABS: Albumin Level 3.2 gm/dl (3.4-5.0); BUN Creatinine Ratio 15.4 (10-20); Calcium 8.7 mg/dl (8.5-10.1); Creatinine Clr Calc Pharmacy 31.9 ml/min; Est GFR (African American) 22.4; Est GFR (Non-African American) 19.4; Potassium 4.5 mmol/L (3.5-5.1)
[2019-01-06 13:43] LABS: Albumin Globulin Ratio 0.8 (0.9-2); Bilirubin,Total 0.5 mg/dl (0.2-1); Globulin 3.9 gm/dl (2.5-4.0); Total Protein 7.1 gm/dl (6.4-8.2)
--- NOTE | 2019-01-06 14:27 | Pharmacy Report ---
Glycemic Control Consultation - Date of Service January 06, 2019 - Scope Scope: Glycemic Pharmacist consulted by Dr Myers on 01/06/19 for glycemic control and to write orders per [facility] inpatient glycemic control protocol - Objective Weight: 132.9 kg Accuchecks BSG (last 24hrs): 01/06/19 01/06/19 01/06/19 04:53 10:34 13:06 Glucose 117 H 150 H POC Glucose 126 H Laboratory Data (last 24hrs): 01/06/19 01/06/19 04:53 13:06 Potassium 4.3 4.5 Carbon Dioxide 27 28 Anion Gap 6.0 8.0 Creatinine 3.01 H 3.17 H Est Cr Clr Drug Dosing 34.2 31.9 - Recent Pertinent Medications Outpatient Anti-diabetic Regimen: * Lantus 60 units BID + Novolog 10 units AC * A1c = 11.4 % 09/15/18 Risk Factors for Insulin Resistance: * Diet: T2DM * Mechanical Ventilation: previously on CPAP but no longer - Assessment & Plan Assessment & Plan: ASSESSMENT: * Mr Solorio is a 68 y/o M with a history of poorly controlled T2DM who presents with difficulty breathing - volume overload. Patient is managed through the [facility]. During a previous hospitalization, the patient required approximately 50 units of basal insulin and Novolog with CF of 15 and CR of 5. * Pharmacy requested glycemic consult. 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 not 100 mg TID). Will utilize previous dosing information - Lantus 50 units nightly with 60 units if blood sugar over 160 mg/dL. * Initially, weight-based stress of 1-2 Novolog was started. Once information from previous hospitalization was seen, tightened to weight-based stress of 2. This may require further tightening based upon response. * HbA1C ordered. PLAN FOR INPATIENT GLYCEMIC CONTROL: * Basal insulin * Lantus 50 units SQ nightly (60 units if blood sugar over 160 mg/dL) * Bolus insulin * NovoLog per scale ACHS or Q6hrs while NPO * Goal Range: Low 110 mg/dL - High 140 mg/dL * Correction Factor: 20 mg/dL/unit * Nutritional / Prandial insulin per carb ratio of 1 unit per 6 grams CHO consumed * Please note that the plan above was derived based on current level of insulin resistance and hospital stress. These recommendations are appropriate for inpatient admission only. Plan of care upon discharge will need to be reassessed to avoid potential outpatient hypo/hyperglycemia. Thank you.
[2019-01-06] MEDS: HEPARIN SOD 5,000 UNIT/0.5 ML VIAL SQ SCH ×2 (14:42→21:17)
[2019-01-06] MEDS: BUMETANIDE 2 MG in SYRINGE 0 ML IV SCH (17:42)
[2019-01-06 19:01] LABS: Albumin Level 3.2 gm/dl (3.4-5.0); BUN Creatinine Ratio 15.1 (10-20); Calcium 8.2 mg/dl (8.5-10.1); Creatinine Clr Calc Pharmacy 29.1 ml/min; Est GFR (African American) 20.1; Est GFR (Non-African American) 17.4; Potassium 3.9 mmol/L (3.5-5.1)
[2019-01-06 19:04] LABS: Albumin Globulin Ratio 0.8 (0.9-2); Bilirubin,Total 0.6 mg/dl (0.2-1); Globulin 3.9 gm/dl (2.5-4.0); Total Protein 7.1 gm/dl (6.4-8.2)
[2019-01-06] MEDS: ATORVASTATIN 20 MG TAB PO SCH (21:20)
[2019-01-06] MEDS: INSULIN GLARGINE SOLOSTAR 100 UNITS/ML 3 ML PEN SC SCH (21:21)
[2019-01-07 01:00] LABS: Albumin Level 3.2 gm/dl (3.4-5.0); BUN Creatinine Ratio 16.7 (10-20); Calcium 8.4 mg/dl (8.5-10.1); Creatinine Clr Calc Pharmacy 28.4 ml/min; Est GFR (African American) 19.5; Est GFR (Non-African American) 16.8
[2019-01-07 01:03] LABS: Albumin Globulin Ratio 0.8 (0.9-2); Bilirubin,Total 0.5 mg/dl (0.2-1); Globulin 4.2 gm/dl (2.5-4.0); Total Protein 7.4 gm/dl (6.4-8.2)
[2019-01-07] MEDS: HEPARIN SOD 5,000 UNIT/0.5 ML VIAL SQ SCH ×3 (05:58→21:27)
[2019-01-07 06:06] LABS: Estimated Average Glucose 160 mg/dl; Hemoglobin A1C 7.2 % (4.5-5.6)
[2019-01-07] MEDS: HydrALAZINE TAB 50 MG TAB PO SCH ×3 (08:16→21:26)
[2019-01-07] MEDS: AMLODIPINE BESYLATE 5 MG TAB PO SCH (08:17)
[2019-01-07] MEDS: BUMETANIDE 2 MG in SYRINGE 0 ML IV SCH ×2 (08:17→17:31)
[2019-01-07] MEDS: CARVEDILOL 3.125 MG TAB PO SCH ×2 (08:17→21:27)
[2019-01-07] MEDS: cloNIDine HCl 0.1 MG TAB PO SCH ×2 (08:17→21:31)
[2019-01-07] MEDS: SERTRALINE HCL 50 MG TABLET PO SCH (08:18)
[2019-01-07] MEDS: metOLazone 5 MG TABLET PO SCH (08:18)
[2019-01-07] MEDS: INSULIN ASPART 100 UNITS/ML 3 ML PEN SC SCH ×4 (08:22→21:29)
--- NOTE | 2019-01-07 09:45 | Nephrology Progress Note ---
Date of Service January 07, 2019 Assessment & Plan (1) Acute respiratory failure: 68-year-old male admitted to the hospital with acute respiratory failure. He has stage III CKD w/ creatinine 3 - 3.5. Pulmonary evaluation revealed clear CXR. d-Dimer was + but V/Q was low probability for PE. ECG was negative for ischemic change. Troponin was undetectable. Respiratory function has improved following IV diuretic therapy -- Consider transitioning back to home diuretic regimen of Furosemide 80 mg po BID -- Recommend tapering O2 (2) Chronic kidney disease, stage 4 (severe): -- Baseline creatinine 3 - 3.5. Patient is currently euvolemic and without uremic symptoms -- Consider removing menjivar catheter and monitoring UO -- Protect R arm AVF: Post sign - no BP, lab draws or IV's from R arm due to dialysis access -- Patient wishes to continue to follow at [facility] for outpatient Nephrology monitoring due to insurance concerns (3) Anemia: -- Mild, asymptomatic anemia. No acute indication for MAYLIN at this time. Will monitor (4) HTN (hypertension): -- Above target range -- Suspect BP may trend down following diuresis -- Continue current medical regimen for now Subjective Mr. Solorio was seen & examined in the PCU this morning. He reports that he receives the majority of his medical care at the [facility]. He has advanced CKD (baseline creatinine 3 - 3.5) and underwent R upper arm brachiocephalic AVF placement ~ 1 month ago. He expects to have the venous limb transposed within the next couple of weeks. Mr. Solorio reports brisk UO in response to diuretic therapy. His breathing is subjectively improved and he hopes to return home soon. Review of Systems Constitutional: no fever, no chills and no weakness Eyes: no worsening vision and no problem reported Ear, Nose, Mouth, Throat: no problem reported Respiratory: no cough and no dyspnea Cardiovascular: no chest pain, no palpitations and no edema Gastrointestinal: no abdominal pain, no nausea, no vomiting and no diarrhea/loose stools Genitourinary: no dysuria, no urinary hesitancy and no hematuria Musculoskeletal: no back pain Integumentary: no rash Neurologic: no falls, no dizziness and no confusion Physical Exam Constitutional: + obese Eyes: PERRL, conjunctivae normal, anicteric sclerae ENMT: external ear and nose normal, oropharynx normal Neck: trachea midline, no thyromegaly Respiratory: normal respiratory effort, lungs clear to auscultation Cardiovascular: RRR, no murmur, no edema Gastrointestinal (Abdomen): normal bowel sounds, soft, nontender, no hepatosplenomegaly large ventral wall hemia Musculoskeletal: no cyanosis or clubbing, extremities motor strength 5/5 Skin: no rashes, warm and dry Neurologic: awake; not confused Results & Data Vital Signs (Past 12 Hours) Vital Signs Temp Pulse Resp BP Pulse Ox 01/07/19 07:09 36.6 C 67 18 168/73 H 95 01/07/19 03:56 36.6 C 70 20 156/71 H 95 01/06/19 23:39 36.9 C 66 19 145/81 H 92 Laboratory Results Laboratory Tests 01/06/19 01/06/19 01/07/19 04:53 12:30 00:36 WBC 13.39 H Hgb 11.5 L Hct 35.4 L Plt Count 220 Sodium 142 Potassium 4.0 Chloride 105 Carbon Dioxide 27 BUN 59 H Creatinine 3.56 H Glucose 122 H Urine Color Yellow Urine Appearance Clear Urine pH 5.0 Ur Specific [place] 1.014 Urine Protein 1+ H Urine Glucose (UA) Negative Urine Ketones Negative Urine Blood 2+ H Urine Nitrite Negative Urine Bilirubin Negative Urine WBC (Auto) 1-5 Urine RBC (Auto) >30 H U Hyaline Cast (Auto) 1-5 U Epithel Cells (Auto) 5-10 H Urine Bacteria (Auto) Negative PG Care Time/CCT Total # of Minutes Spent Total Time Spent with Patient: Total time spent is greater than 50% in coordination of care (as documented) at patient's floor/unit and/or counseling patient:
[2019-01-07] MEDS: TAMSULOSIN HCL 0.4 MG CAP PO SCH (10:08)
--- NOTE | 2019-01-07 19:02 | Hospitalist Progress Note ---
Date of Service January 07, 2019 Assessment & Plan (1) Acute respiratory failure: Continue PCU with telemetry Vital signs as per MICU Bumex 2 mg twice daily Continue supplemental oxygen and keep oxygenation above 92% Strict in and out Daily weight CMP every 6 hours, replenish electrolytes as necessary CMP, BNP daily VQ scan low probability of pulmonary embolism Consult nephrology, appreciate recommendations. CPAP at night for sleep apnea DVT prophylaxis heparin 5000 every 8 hours Full code (2) Congestive heart failure, acute: As the above (3) HTN (hypertension): Continue home medication: Amlodipine 10 mg p.o. every morning, hydralazine 100 mg p.o. 3 times daily Heart healthy low-sodium diet (4) Hypertensive kidney disease with CKD stage IV: Continue monitoring kidney function Avoid nephrotoxic agents Appreciate nephrology recommendations (5) Diabetes mellitus type 2 in nonobese: Accu-Cheks before meals and at bedtime continue home dose of insulin and managed better per glycemic protocol pharmacy. (6) Hypercholesterolemia: Continue atorvastatin 20 mg p.o. nightly Subjective She was seen and examined at the bedside. Sitting in the chair comfortably.Good urinary output. Good p.o. intake patient is on fluid restriction 1200. Afebrile. Breathing significantly improved. Patient reports no shortness of breath. patient continues to require 4 L of oxygen.Patient denies fever chills chest pain abdominal pain frequency urgency hematuria dysuria hemoptysis melena. Review of Systems Review of Systems: All systems reviewed & are unremarkable except as noted in HPI & below Physical Exam Constitutional: WD/WN, vitals as above well developed and + obese Eyes: PERRL, conjunctivae normal, anicteric sclerae ENMT: external ear and nose normal, oropharynx normal Neck: trachea midline, no thyromegaly Respiratory: + respiratory distress, + dullness to percussion and + tachypneic Cardiovascular: Heart Sounds: normal S1 and normal S2 Palpation: + palpable S3 and + palpable S4 Vessels: + JVD (Improving) Improving edema of the lower ex Gastrointestinal (Abdomen): normal bowel sounds, soft, nontender, no hepatosplenomegaly Musculoskeletal: no cyanosis or clubbing, extremities motor strength 5/5 Skin: no rashes, warm and dry Psychiatric: A+Ox3, euthymic affect Genitourinary: no testicular masses, no penis abnormality Lymphatic: no cervical or axillary lymphadenopathy Results & Data Vital Signs (Past 12 Hours) Vital Signs Temp Pulse Pulse Resp BP Pulse Ox 01/07/19 15:46 37.5 C 70 18 144/64 H 93 01/07/19 11:08 36.9 C 62 17 148/62 H 90 01/07/19 08:00 64 01/07/19 07:09 36.6 C 67 18 168/73 H 95 PG Care Time/CCT Total # of Minutes Spent Total Time Spent with Patient: Total time spent is greater than 50% in coordination of care (as documented) at patient's floor/unit and/or counseling patient:
[2019-01-07] MEDS: ATORVASTATIN 20 MG TAB PO SCH (21:27)
[2019-01-07] MEDS: INSULIN GLARGINE SOLOSTAR 100 UNITS/ML 3 ML PEN SC SCH (21:28)
[2019-01-08] MEDS: HEPARIN SOD 5,000 UNIT/0.5 ML VIAL SQ SCH ×3 (05:49→20:31)
[2019-01-08 07:07] LABS: Hematocrit (blood only) 37.1 % (42-52); Hemoglobin 11.9 g/dL (14.0-18.0); Mean Corpuscular Hemoglobin 27.9 pg (25-34); Mean Corpuscular Hgb Conc 32.1 g/dL (32-36); Mean Corpuscular Volume 87.1 fL (80-100); Mean Platelet Volume 10.2 fL (7.4-10.4); Platelet Count 239 K/uL (130-400); RDW Coefficient of Variation 14.6 % (11.5-14.5); RDW Standard Deviation 46.6 fL (36.4-46.3); Red Blood Count 4.26 M/uL (4.7-6.1); White Blood Count 10.71 K/uL (4.8-10.8)
[2019-01-08 07:34] LABS: BUN Creatinine Ratio 18.9 (10-20); Calcium 8.9 mg/dl (8.5-10.1); Creatinine Clr Calc Pharmacy 27.2 ml/min; Est GFR (African American) 18.9; Est GFR (Non-African American) 16.3; Potassium 3.6 mmol/L (3.5-5.1)
[2019-01-08] MEDS: SERTRALINE HCL 50 MG TABLET PO SCH (08:45)
[2019-01-08] MEDS: metOLazone 5 MG TABLET PO SCH (08:45)
[2019-01-08] MEDS: TAMSULOSIN HCL 0.4 MG CAP PO SCH (08:46)
[2019-01-08] MEDS: HydrALAZINE TAB 50 MG TAB PO SCH ×3 (08:47→20:28)
[2019-01-08] MEDS: AMLODIPINE BESYLATE 5 MG TAB PO SCH (08:47)
[2019-01-08] MEDS: CARVEDILOL 3.125 MG TAB PO SCH ×2 (08:47→20:29)
[2019-01-08] MEDS: BUMETANIDE 2 MG in SYRINGE 0 ML IV SCH ×2 (08:48→17:41)
[2019-01-08] MEDS: INSULIN ASPART 100 UNITS/ML 3 ML PEN SC SCH ×4 (08:48→20:30)
[2019-01-08] MEDS: cloNIDine HCl 0.1 MG TAB PO SCH ×2 (08:57→20:28)
--- NOTE | 2019-01-08 10:14 | Nephrology Progress Note ---
Date of Service January 08, 2019 Assessment & Plan (1) Acute respiratory failure: 68-year-old male admitted to the hospital with acute respiratory failure. He has stage III CKD w/ creatinine 3 - 3.5. Pulmonary evaluation revealed clear CXR. d-Dimer was + but V/Q was low probability for PE. ECG was negative for ischemic change. Troponin was undetectable. Respiratory function has improved following IV diuretic therapy -- Recommend transitioning back to home diuretic regimen of Furosemide 80 mg po BID -- Recommend tapering O2 (2) Chronic kidney disease, stage 4 (severe): -- Baseline creatinine 3 - 3.5. Patient is currently euvolemic and without uremic symptoms -- Recommend removing menjivar catheter and monitoring UO -- Protect R arm AVF: Post sign - no BP, lab draws or IV's from R arm due to dialysis access -- Patient wishes to continue to follow at [facility] for outpatient Nephrology monitoring due to insurance concerns (3) Anemia: -- Mild, asymptomatic anemia. No acute indication for MAYLIN at this time. Will monitor (4) HTN (hypertension): -- BP trending down w/ diuresis -- Continue current medical regimen for now Subjective Mr. Solorio was seen & examined in his hospital room this morning. He is breathing comfortably flat in bed on O2 at 3 L/min NC. He denies uremic symptom s Review of Systems Constitutional: no fever, no chills and no weakness Eyes: no worsening vision and no problem reported Ear, Nose, Mouth, Throat: no problem reported Respiratory: no cough and no dyspnea Cardiovascular: no chest pain, no palpitations and no edema Gastrointestinal: no abdominal pain, no nausea, no vomiting and no diarrhea/loose stools Genitourinary: no dysuria, no urinary hesitancy and no hematuria Musculoskeletal: no back pain Integumentary: no rash Neurologic: no falls, no dizziness and no confusion Physical Exam Constitutional: + obese Eyes: PERRL, conjunctivae normal, anicteric sclerae ENMT: external ear and nose normal, oropharynx normal Neck: trachea midline, no thyromegaly Respiratory: normal respiratory effort, lungs clear to auscultation Cardiovascular: RRR, no murmur, no edema Gastrointestinal (Abdomen): normal bowel sounds, soft, nontender, no hepatosplenomegaly Musculoskeletal: no cyanosis or clubbing, extremities motor strength 5/5 Skin: no rashes, warm and dry Neurologic: awake; not confused Results & Data Vital Signs (Past 12 Hours) Vital Signs Temp Pulse Pulse Resp BP Pulse Ox 01/08/19 08:00 72 01/08/19 06:54 36.7 C 70 19 156/69 H 96 01/08/19 03:07 137/59 L 01/08/19 02:44 36.6 C 70 20 172/80 H 93 01/07/19 23:12 36.8 C 71 19 146/62 H 95 Laboratory Results Laboratory Tests 01/08/19 01/08/19 06:45 06:45 WBC 10.71 Hgb 11.9 L Hct 37.1 L Plt Count 239 Sodium 142 Potassium 3.6 Chloride 105 Carbon Dioxide 30 BUN 69 H Creatinine 3.65 H Glucose 89 Calcium 8.9 PG Care Time/CCT Total # of Minutes Spent Total Time Spent with Patient: Total time spent is greater than 50% in coordination of care (as documented) at patient's floor/unit and/or counseling patient:
--- NOTE | 2019-01-08 18:38 | Hospitalist Progress Note ---
Date of Service January 08, 2019 Assessment & Plan (1) Acute respiratory failure: Continue PCU with telemetry Vital signs Q4hr Bumex 2 mg twice daily Continue supplemental oxygen and keep oxygenation above 92% Strict in and out Daily weight CMP every 6 hours, replenish electrolytes as necessary CMP, BNP daily VQ scan low probability of pulmonary embolism Consult nephrology, appreciate recommendations. CPAP at night for sleep apnea DVT prophylaxis heparin 5000 every 8 hours Full code (2) Congestive heart failure, acute: As the above (3) HTN (hypertension): Continue home medication: Amlodipine 10 mg p.o. every morning, hydralazine 100 mg p.o. 3 times daily Heart healthy low-sodium diet (4) Hypertensive kidney disease with CKD stage IV: Continue monitoring kidney function Avoid nephrotoxic agents Appreciate nephrology recommendations (5) Diabetes mellitus type 2 in nonobese: Accu-Cheks before meals and at bedtime continue home dose of insulin and managed better per glycemic protocol pharmacy. (6) Hypercholesterolemia: Continue atorvastatin 20 mg p.o. nightly Subjective Mr. Solorio was seen and examined in the bedside. He is breathing comfortably flat in bed on O2 at 3 L/min NC. He denies uremic symptoms. Patient has good urinary output. Patient denies fever chills chest pain shortness of breath on 3 L abdominal pain urgency frequency and edema of the lower extremities. Review of Systems Review of Systems: All systems reviewed & are unremarkable except as noted in HPI & below Physical Exam Constitutional: WD/WN, vitals as above well developed and + obese Eyes: PERRL, conjunctivae normal, anicteric sclerae ENMT: external ear and nose normal, oropharynx normal Neck: trachea midline, no thyromegaly Respiratory: + respiratory distress, + dullness to percussion and + tachypneic Cardiovascular: Heart Sounds: normal S1 and normal S2 Palpation: + palpable S3 and + palpable S4 Vessels: + JVD (Improving) Gastrointestinal (Abdomen): normal bowel sounds, soft, nontender, no hepatosplenomegaly Musculoskeletal: no cyanosis or clubbing, extremities motor strength 5/5 Skin: no rashes, warm and dry Neurologic: patellar DTR's 2+ bilat, sensation intact Psychiatric: A+Ox3, euthymic affect Genitourinary: no testicular masses, no penis abnormality Lymphatic: no cervical or axillary lymphadenopathy Results & Data Vital Signs (Past 12 Hours) Vital Signs Temp Pulse Pulse Resp BP Pulse Ox 01/08/19 16:02 36.7 C 81 18 164/77 H 94 01/08/19 16:00 72 01/08/19 11:20 36.7 C 73 16 165/73 H 93 01/08/19 10:49 94 01/08/19 08:00 72 01/08/19 06:54 36.7 C 70 19 156/69 H 96 PG Care Time/CCT Total # of Minutes Spent Total Time Spent with Patient: Total time spent is greater than 50% in coordination of care (as documented) at patient's floor/unit and/or counseling patient:
[2019-01-08] MEDS: ATORVASTATIN 20 MG TAB PO SCH (20:28)
[2019-01-08] MEDS: INSULIN GLARGINE SOLOSTAR 100 UNITS/ML 3 ML PEN SC SCH (20:30)
[2019-01-09] MEDS: HEPARIN SOD 5,000 UNIT/0.5 ML VIAL SQ SCH (06:05)
--- NOTE | 2019-01-09 07:54 | Pharmacy Report ---
Pharmacy Glycemic Short Note 2 - Date of Service January 09, 2019 - Glycemic Short BSG Results (Last 24 hours): 01/08/19 01/08/19 01/08/19 07:51 11:19 16:06 POC Glucose 104 H 111 H 107 H 01/08/19 01/09/19 20:12 07:36 POC Glucose 134 H 106 H OUTPATIENT ANTIDIABETIC REGIMEN: * Lantus 60 units BID * Novolog 10 units AC * A1c = 7.2% 01/06/19 CURRENT INPATIENT REGIMEN: * Basal insulin: Lantus Q HS per scale: 50 units if BSG less than 160, 60 units if BSG 160 or greater * Correctional Insulin: Novolog Correction per scale ACHS Goal Range: Low 110 mg/dL - High 140 mg/dL Correction Factor: 20 mg/dL/unit * Prandial insulin: Per carb ratio of 1 unit per 6 grams CHO consumed ASSESSMENT: * Type 2 diabetic admitted for acute resp failure secondary to ADHF * Patient's glycemic control has improved greatly since last checked in 2018 (11.4% 09/15/17 -->7.2% 01/06/19) * Patient is a poor historian and may be missing insulin doses at home and not taking as reported on med rec. We have been dosing his insulin this admission based upon data obtained from prior hospitalizations. * Over the last 24 hrs, BSGs have been well controlled * Fasting BSG 106 this AM w/ 50 units basal insulin on board * Post-prandial BSGs are currently well controlled, however the current regimen is heavily weighted basal. * Will reduce basal insulin dose slightly to allow for larger mealtime insulin doses. PLAN FOR INPATIENT GLYCEMIC CONTROL: * Basal insulin * Lantus Q HS per scale * 45 units if BSG less than 180 * 55 units if BSG 180 or greater * Bolus insulin * NovoLog per scale ACHS or Q6hrs while NPO * Goal Range: Low 110 mg/dL - High 140 mg/dL * Correction Factor: 20 mg/dL/unit * Nutritional / Prandial insulin per carb ratio of 1 unit per 6 grams CHO consumed PLAN FOR DISCHARGE: * Given recent A1c results, would have patient resume his home regimen as he had been using it.
[2019-01-09] MEDS: HydrALAZINE TAB 50 MG TAB PO SCH (08:35)
[2019-01-09] MEDS: CARVEDILOL 3.125 MG TAB PO SCH (08:35)
[2019-01-09] MEDS: cloNIDine HCl 0.1 MG TAB PO SCH (08:36)
[2019-01-09] MEDS: TAMSULOSIN HCL 0.4 MG CAP PO SCH (08:36)
[2019-01-09] MEDS: metOLazone 5 MG TABLET PO SCH (08:36)
[2019-01-09] MEDS: AMLODIPINE BESYLATE 5 MG TAB PO SCH (08:36)
[2019-01-09] MEDS: SERTRALINE HCL 50 MG TABLET PO SCH (08:37)
[2019-01-09] MEDS: INSULIN ASPART 100 UNITS/ML 3 ML PEN SC SCH ×2 (08:37→11:51)
[2019-01-09] MEDS ORDERED: FUROSEMIDE 40 MG TAB PO SCH (09:00)
[2019-01-09 09:19] LABS: BUN Creatinine Ratio 21.3 (10-20); Calcium 8.9 mg/dl (8.5-10.1); Creatinine Clr Calc Pharmacy 26.6 ml/min; Est GFR (African American) 18.6; Est GFR (Non-African American) 16.1; Potassium 3.5 mmol/L (3.5-5.1)
--- NOTE | 2019-01-09 09:39 | Nephrology Progress Note ---
Date of Service January 09, 2019 Assessment & Plan (1) Acute respiratory failure: 68-year-old male admitted to the hospital with acute respiratory failure. He has stage III CKD w/ creatinine 3 - 3.5. Pulmonary evaluation revealed clear CXR. d-Dimer was + but V/Q was low probability for PE. ECG was negative for ischemic change. Troponin was undetectable. Respiratory function has improved following IV diuretic therapy -- Resolved. Now breathing comfortably on RA (2) Chronic kidney disease, stage 4 (severe): -- Baseline creatinine ~ 3.5. Patient is currently euvolemic and without uremic symptoms -- Kidney function is relatively stable. Electrolyte balance is acceptable. No acute indication for HD -- Recommend 1500 mg / day Na restricted, low potassium diet -- Patient wishes to continue to follow at [facility] for outpatient Nephrology monitoring due to insurance concerns -- If discharge is anticipated please have Mr. Solorio follow up w/ [facility] Nephrology within one week (3) Anemia: -- Mild, asymptomatic anemia. No acute indication for MAYLIN at this time. Will monitor (4) HTN (hypertension): -- BP trending down w/ diuresis -- Continue current medical regimen for now Subjective Mr. Solorio was seen and examined in his hospital room this morning. He has been tapered off oxygen and is currently breathing comfortably on RA. His menjivar catheter has been removed and he denies difficulty voiding Review of Systems Constitutional: no fever, no chills and no weakness Eyes: no worsening vision and no problem reported Ear, Nose, Mouth, Throat: no problem reported Respiratory: no cough and no dyspnea Cardiovascular: no chest pain, no palpitations and no edema Gastrointestinal: no abdominal pain, no nausea, no vomiting and no diarrhea/loose stools Genitourinary: no dysuria, no urinary hesitancy and no hematuria Musculoskeletal: no back pain Integumentary: no rash Neurologic: no falls, no dizziness and no confusion Physical Exam Constitutional: + obese Eyes: PERRL, conjunctivae normal, anicteric sclerae ENMT: external ear and nose normal, oropharynx normal Neck: trachea midline, no thyromegaly Respiratory: normal respiratory effort, lungs clear to auscultation Cardiovascular: RRR, no murmur, no edema Gastrointestinal (Abdomen): normal bowel sounds, soft, nontender, no hepatosplenomegaly Musculoskeletal: no cyanosis or clubbing, extremities motor strength 5/5 Skin: no rashes, warm and dry Neurologic: awake; not confused Results & Data Vital Signs (Past 12 Hours) Vital Signs Temp Pulse Pulse Pulse Pulse Pulse Resp 01/09/19 08:45 83 75 80 01/09/19 06:54 37.1 C 73 16 01/09/19 04:04 36.8 C 72 16 01/09/19 00:00 75 01/08/19 23:36 36.8 C 73 16 Resp Resp Resp BP Pulse Ox Pulse Ox Pulse Ox 01/09/19 08:45 18 18 18 90 96 01/09/19 06:54 168/75 H 91 01/09/19 04:04 166/70 H 90 01/09/19 00:00 01/08/19 23:36 167/75 H 93 Pulse Ox 01/09/19 08:45 92 01/09/19 06:54 01/09/19 04:04 01/09/19 00:00 01/08/19 23:36 Laboratory Results Laboratory Tests 01/08/19 01/09/19 06:45 08:20 WBC 10.71 Hgb 11.9 L Hct 37.1 L Plt Count 239 Sodium 141 Potassium 3.5 Chloride 102 Carbon Dioxide 31 BUN 79 H Creatinine 3.70 H Glucose 145 H Calcium 8.9 PG Care Time/CCT Total # of Minutes Spent Total Time Spent with Patient: Total time spent is greater than 50% in coordination of care (as documented) at patient's floor/unit and/or counseling patient:
--- NOTE | 2019-01-09 13:20 | Discharge Summary ---
Date of Service January 09, 2019 Admission HPI Per Admitting Provider Patient is a 68 years old male with past medical history of congestive heart failure, CKD stage IV, sleep apnea, hypertension presents to the emergency room with a complaint of shortness of breath for 24 hours, gaining some weight approximately 10 pounds and having swollen lower extremity. Patient had dialysis fistula placed in September 2018 at the [facility] because of his CKD stage IV. Fistula is in the process of maturation and is not in use as of right now. Patient was brought brought by an ambulance and because of his severe shortness of breath and oxygenation down to 76% he was placed on CPAP. In the emergency room patient was initially placed on BiPAP but then after dose of Bumex 2 mg IV his oxygenation improved and he was tolerating 4 L as 98%. The institution at this time did not have available VQ scan and order to do so, isotope was needed to come form [place], [place] which will several hours. Since patient O2 sat improved significantly after Bumex it was more obvious that patient has more li john congestive heart failure versus pulmonary embolism and brisk diuresis helped him significantly to maintain his oxygenation 98% on 4 L. In the meantime VQ scan is now available to be done here so we will cancel CTA of the chest. Labs were reviewed: White blood cell count 13.39 hemoglobin 11.5 hematocrit 35.4 platelets 220, sodium 141 potassium 4.3 chloride 108 BUN 50 creatinine 3.01, glucose 117. Chest x-ray cardiomegaly without overt pulmonary edema, bibasilar opacities suggesting probable atelectasis. Case was discussed and decision was made to admit patient to the MICU. Patient denies fever chills chest pain abdominal pain frequency urgency hemoptysis hematuria dysuria melena. Principal Diagnosis Acute hypoxic respiratory failure, Hypervolemia from renal failure Discharge Exam Constitutional WD/WN, vitals as above + morbidly obese Eyes + anicteric sclerae Neck trachea midline, no thyromegaly Respiratory normal respiratory effort, lungs clear to auscultation Cardiovascular RRR, no murmur, no edema Gastrointestinal (Abdomen) normal bowel sounds, soft, nontender, no hepatosplenomegaly Musculoskeletal Extremities: extremities normal to inspection; no cyanosis and no clubbing Skin no rashes, warm and dry Neurologic moves all extremities and awake; no focal motor deficits Psychiatric A+Ox3, euthymic affect Discharge Data Allergies Allergy/AdvReac Type Severity Reaction Status Date / Time ragweed pollen Allergy Mild CONGESTON Verified 01/06/19 06:57 Consultations 01/06/19 05:54 ED Decision to Admit Stat 01/06/19 09:25 Consult Nephrology Routine Ordered Studies CXR V/Q scan Hospital Course (1) Acute respiratory failure: Admitted with significant resp failure and distress VQ scan low probability of pulmonary embolism Secondary to volume overload from progressive renal failure ECHO with preserved EF, mild MR Diuresed with IV Bumex and lost 11kg of body weight, weaned off O2, felt much improved. Was also treated with po metalozone 5mg daily-will not be continued on dc -will return to home diuretics of lasix 80mg po bid He passed a 2 step walking test with respiratory therapy and did not need O2 at the time of discharge CPAP at night for sleep apnea (2) HTN (hypertension): BPs were elevated throughout but were improving with diuresis Continue home medication: Amlodipine 10 mg p.o. every morning, hydralazine 100 mg p.o. 3 times daily, clonidine 0.1mg po bid, lasix 80mg po bid Heart healthy low-sodium diet (3) Hypertensive kidney disease with CKD stage IV: Sample Dye Mixer stable at dc at 3.7 Avoid nephrotoxic agents Appreciate nephrology recommendations Has AV fistula in place, follows with Nephro at [facility]--> will f/u there in 1 week (4) Hypercholesterolemia: Continue atorvastatin 20 mg p.o. nightly (5) Anemia: hgb mildly low at 11.9, normocytic and likely of chronic disease -follow with Nephro as outpt (6) Sleep apnea: -continue CPAP qhs (7) Diabetes mellitus type 2 in obese: HgbA1C only 7.2%, well controlled He only required half his usual home insulin regimen while here Recommend cutting down to Lantus 60 units qhs, continue premeal insulin 10units AC -titrate back up on insulin if glucose rises once returns home -ADA diet Stable for dc to home Total Time Total Time Spent Total Time Spent (In Minutes): >30 min Total Time Includes: Examination of the Patient, Discharge Planning and Medication Reconciliation Discharge Plan Discharge Items Patient Disposition: Home - Self-Care Reason For Visit: SHORTNESS OF BREATH Discharge Diagnosis: Acute hypoxic respiratory failure, hypervolemia from kidney failure Condition: Good Discharge Goals: Decrease discomfort, Diagnostic testing, Improve disease control, Learn about illness and Therapeutic intervention Activity: Resume your previous activity Bathing: No limitations Non-emergency contact: Primary Care Provider and Coverstitch Machine Operator Call non-emergency contact if: you have any medication questions and your symptoms worsen Follow-up/Referrals: Carroll Brizuela [Primary Care Provider] - (Please, follow up at the [facility] with your primary care provider and on line csr. *They are to contact me with your appointment information and I will text you with the details. You can also text me with questions at [phone]. Thank you, Tomeka Wei RN) Diet: Low Potassium (2gm) and Low Sodium (2gm) Addtl Provider Instructions: Please weigh yourself daily and call your doctor if your weight increases by more than 3-4 lbs from one day to the next. Please follow up with your PCP and Coverstitch Machine Operator within 1-2 weeks. Your blood sugar was much lower than usual while you were here and your insulin dose was only Lantus 60 units once daily. If your blood sugar at home starts creeping back up, you can increase your Lantus dose back to your usual dosing with the guidance of your doctor. Prescriptions: Continued furosemide [Lasix] 40 mg Tablet 80 mg PO BID RF: 0 atorvastatin 40 mg Tablet 20 mg PO PM RF: 0 carvedilol 6.25 mg Tablet 3.125 mg PO BID RF: 0 amlodipine 10 mg Tablet 10 mg PO QAM RF: 0 hydralazine 100 mg Tablet 100 mg PO TID RF: 0 Novolog PenFill U-100 Insulin 100 unit/mL Cartridge 10 unit SUBCUT AC RF: 0 clonidine HCl 0.1 mg Tablet 0.1 mg PO BID RF: 0 tamsulosin 0.4 mg Capsule 0.4 mg PO QAM RF: 0 albuterol sulfate 90 mcg/actuation Hfa Aerosol Inhaler 2 puff INHALATION Q6H PRN (Reason: Shortness Of Breath) RF: 0 sertraline 50 mg Tablet 25 mg PO QAM RF: 0 loratadine 10 mg Tablet 10 mg PO DAILY PRN (Reason: Allergy Symptoms) RF: 0 Changed Lantus Solostar U-100 Insulin 100 unit/mL (3 mL) Insulin Pen 60 unit SUBCUT HS Qty: 0 RF: 0 Stand-Alone Forms: [facility] [employer] [facility]/Other Patient Handouts: CHF Ch Discharge Orders: Discharge Order (Routine); Ordered 01/09/19 Ordered By: Shanta Dixon Admission Data Admit Date/Time: 01/06/19 08:33 Attending Provider: Stephon Myers Admit Provider: Stephon Myers Primary Care Provider: Carroll Brizuela Other Providers: Wisam Hercules ; [place] Service: Telemetry Other Interventions: Discharge Summary Assessment (RN) Last Done: 01/09/19 14:08 Pending Studies at Discharge: No DC Date/Time DO NOT enter until pt leaves facility: 01/09/19 14:34
--- NOTE | 2019-01-15 08:25 | Coding Query ---
CONGESTIVE HEART FAILURE To Promote full compliance with coding requirements relating to patient care, physician participation is requested in all cases of chicken tender uncertainty. Please assist us with the following questions. A diagnosis of Congestive Heart Failure is documented in the patient's medical record. To accurately code this diagnosis and to compare patient severity, we ask that you specify the type of heart failure by placing an X within the parenthesis (x). SYSTOLIC HEART FAILURE ( ) Acute ( ) Chronic ( X) Acute on Chronic ( ) Rheumatic ( ) Unknown DIASTOLIC HEART FAILURE ( ) Acute ( ) Chronic ( ) Acute on Chronic ( ) Rheumatic ( ) Unknown COMBINED SYSTOLIC AND DIASTOLIC HEART FAILURE ( ) Acute ( ) Chronic ( ) Acute on Chronic ( ) Rheumatic ( ) Unknown Was the CHF Present On Admission? Please check the appropriate box: ( ) Present on Admission ( ) Not Present On Admission ( ) Clinically undetermined Thank you for your time, BRANDON Ruggiero, [facility] HEALTHJoya
== END 2019-01-09 14:34 | disposition home or self-care (01) | DRG 291 ==
LOC: ED 04:07 → 1E 08:33 → 2S 16:03

== ENCOUNTER 2019-03-06 17:26 | Inpatient (IN) ==
[2019-03-06] MEDS ORDERED: ASPIRIN CHEW 324 MG PO STA (18:11)
--- NOTE | 2019-03-06 18:31 | XRay Report ---
XR chest 1V portable CLINICAL HISTORY: 68 years-old Male presenting with Chest Pain. TECHNIQUE: Portable upright AP view of the chest was obtained. COMPARISON: 01/06/2019. FINDINGS: Cardiac silhouette moderately enlarged. Pulmonary vascular prominence new from prior. Interstitial pr ominence may reflect interlobular septal thickening. Added density of the lung bases. Suspected trace pleural effusions greater on the left. No large pneumothorax. Degenerative changes of the thoracic s pine. IMPRESSION: 1. Moderate pulmonary edema with volume overload and congestive change. Early/developing pulmonary e eddie is difficult to exclude. 2. Trace bilateral pleural effusions and possible bibasilar atelectasis greater on the left. Electronically signed by: Joon George M.D. 03/06/2019 6:30 PM
[2019-03-06 18:45] LABS: Basophils # (auto) 0.03 K/uL (0-0.2); Basophils % (auto) 0.3 %; Eosinophils # (auto) 0.26 K/uL (0-0.5); Eosinophils % (auto) 2.4 %; Hematocrit (blood only) 32.9 % (42-52); Hemoglobin 9.9 g/dL (14.0-18.0); Immature Granulocytes # (auto) 0.02 K/uL (0.00-0.02); Immature Granulocytes % (auto) 0.2 %; Lymphocytes # (auto) 0.84 K/uL (1.2-3.4); Lymphocytes % (auto) 7.8 %; Mean Corpuscular Hemoglobin 26.5 pg (25-34); Mean Corpuscular Hgb Conc 30.1 g/dL (32-36); Mean Corpuscular Volume 88.2 fL (80-100); Mean Platelet Volume 9.9 fL (7.4-10.4); Monocytes # (auto) 0.91 K/uL (0.11-0.59); Monocytes % (auto) 8.5 %; Neutrophils % (auto) 80.8 %; Platelet Count 251 K/uL (130-400); RDW Coefficient of Variation 15.7 % (11.5-14.5); RDW Standard Deviation 50.7 fL (36.4-46.3); Red Blood Count 3.73 M/uL (4.7-6.1); White Blood Count 10.76 K/uL (4.8-10.8)
[2019-03-06 18:57] LABS: INR 1.1 (0.9-1.1); Partial Thromboplastin Ratio 1.1; Partial Thromboplastin Time 30.8 Seconds (21.0-31.0); Prothrombin Time 11.1 Seconds (9.0-12.0)
[2019-03-06 19:00] LABS: BUN Creatinine Ratio 19.1 (10-20); Blood Urea Nitrogen 76 mg/dl (7-18); Calcium 8.3 mg/dl (8.5-10.1); Carbon Dioxide 30 mmol/L (21-32); Chloride 104 mmol/L (98-107); Creatinine Clr Calc Pharmacy 24.8 ml/min; Est GFR (African American) 16.9; Est GFR (Non-African American) 14.6; Glucose 179 mg/dl (70-99); Lipase 179 U/L (73-393); Potassium 4.4 mmol/L (3.5-5.1); Sodium 140 mmol/L (136-145)
[2019-03-06 19:05] LABS: NT Pro B Type Natriuretic Pept 2517 pg/ml (0-900); Troponin I < 0.015 ng/ml (0-0.045)
[2019-03-06] MEDS ORDERED: FUROSEMIDE 40 MG/4 ML VIAL IV STA (19:06)
--- NOTE | 2019-03-06 19:57 | History & Physical Report ---
Date of Service March 06, 2019 Assessment & Plan (1) Hypoxia: Improved with supplemental O2. No respiratory distress. Speaking in complete sentences. Most likely secondary to CHF exacerbation. -Continue supplemental O2, goal sat > 94% Present on Admission?: Yes (2) CHF exacerbation: Patient had an echocardiogram performed on 01/06/19 which revealed normal LV size and function, EF of 60-65%. Dilated RV with normal function. He had another echocardiogram performed [facility] at [facility] of his catheterization and stent last month. Patient appears to be clinically volume overloaded, also with elevated BNP and pulmonary edema on CXR. He reports his dry weight being somewhere around 277# - weighs in today at 285# -[facility], echo report -Lasix 80mg IV BID -Daily weights, strict I/Os -BMP BID - closely monitor renal function with aggressive diuresis -Continue Carvedilol 12.5mg po BID, Hydralazine 100mg po TID. No SUZANNE/ARB secondary to declining renal function Present on Admission?: Yes (3) Diabetes mellitus type 2 in obese: Blood sugar presently 179 -Continue Lantus 60u BID -ISS -Will hold prandial Novolog for now. If he requires a lot of sliding scale coverage would resume Novolog as well -CC diet as tolerated Present on Admission?: Yes (4) Anemia: Normochromic, normocytic anemia. Hgb=9.9, Hct=32.9. Down from prior values of 11.9 and 37.1, respectively in December 2018. No active bleeding. ?AOCD in setting of poor renal function. Will defer further workup for now -Continue to monitor Present on Admission?: Yes (5) Chronic kidney disease, stage 4 (severe): BUN=76, Cr=4.01 which is slightly higher than his baseline. He has had an AV fistula placed in his RUE but has not yet had dialysis. He reports adequate urine output with use of Lasix -Diuresis as above -BMP BID to monitor for renal decline and electrolytes -Avoid nephrotoxic agents -Renal dosing where needed Present on Admission?: Yes (6) Hypercholesterolemia: Chronic -Continue Atorvastatin Present on Admission?: Yes (7) Sleep apnea: Patient does not use CPAP at home. -Encourage compliance Present on Admission?: Yes (8) HTN (hypertension): Blood pressure mildly elevated at 143/70 currently -Continue Amlodipine -Continue Carvedilol -Continue Hydralazine -Continue Clonidine -Monitor Present on Admission?: Yes (9) CAD (coronary artery disease): Patient reports having a cardiac catheterization at the [facility] in [place] last month with stent placement. Denies CP. Troponin negative, no EKG changes suggestive of active ischemia -Continue ASA, Plavix, Atorvastatin, Carvedilol -[facility] Present on Admission?: Yes (10) Depression: Chronic -Continue Sertraline Present on Admission?: Yes (11) BPH (benign prostatic hyperplasia): Chronic. Stable -Continue Flomax F/E/N - Diuresis with Lasix 80mg IV BID, monitor BMP and Mg q 12 hours, CC/AHA/Low Na diet as tolerated Ppx - SCDs Code - Full Dispo - Admit to medical floor with telemetry Present on Admission?: Yes History of Present Illness Chief Complaint: SOB/ALTAMIRANO Primary Care Provider: Carroll Brizuela DO Mr. Angel Solorio is a 68yo C male with history of CAD s/p recent stent placement in January 2019 at the [facility] in [place], DM, HTN, HLP and CKD presenting with SOB. He reports appx 48 hours of ALTAMIRANO, chest congestion and cold sweats. Also with dry cough and orthopnea. He thinks he has gained appx 5 pounds over the last few days. Dry weight stated to be around 277# On arrival to the ER he was found to be afebrile, saturating 87% on room air. He was placed on NC with improvement in symptoms. He denies CP, palpitations, CISSE, dizziness, syncope, abdominal pain, nausea, vomiting, diarrhea, constipation, dysuria/hematuria. Denies wheezing or URI symptoms. He reports compliance with his medications. Has not missed his Lasix or other medications. No additional complaints at this time - no CP, palpitations, dizziness, syncope. ER Course: ASA, Lasix 40mg IV Allergies Allergy/AdvReac Type Severity Reaction Status Date / Time ragweed pollen Allergy Mild CONGESTON Verified 03/06/19 19:13 Home Medications Home Medications Medication Instructions Recorded Confirmed Type Novolog PenFill U-100 Insulin 10 unit SUBCUT AC 01/06/19 03/06/19 History albuterol sulfate 2 puff INHALATION Q6H PRN 01/06/19 03/06/19 History amlodipine 10 mg PO QAM 01/06/19 03/06/19 History atorvastatin 20 mg PO PM 01/06/19 03/06/19 History clonidine HCl 0.1 mg PO BID 01/06/19 03/06/19 History furosemide [Lasix] 80 mg PO BID 01/06/19 03/06/19 History hydralazine 100 mg PO TID 01/06/19 03/06/19 History loratadine 10 mg PO DAILY PRN 01/06/19 03/06/19 History sertraline 25 mg PO QAM 01/06/19 03/06/19 History tamsulosin 0.4 mg PO QAM 01/06/19 03/06/19 History Lantus Solostar U-100 Insulin 60 unit SUBCUT BID 03/06/19 03/06/19 History aspirin [Aspir-81] 81 mg PO DAILY 03/06/19 03/06/19 History carvedilol [Coreg] 12.5 mg PO BID 03/06/19 03/06/19 History clopidogrel [Plavix] 75 mg PO DAILY 03/06/19 03/06/19 History Past Med/Surg History Medical History Sleep apnea (Chronic) does not use CPAP HTN (hypertension) (Chronic) AV fistula Anemia CAD (coronary artery disease) s/p stent 2018 CKD (chronic kidney disease) Stage 4 Diabetes Dyslipidemia Family History Other Hypertension Social History Preferred Language: Indonesian Communication Ability: Effective Transition Program Manager Required: No Beliefs That Will Affect Care: None Current Living Situation: Alone Other Information That Helps Us Care for You: No Feels Safe at Home: Yes Safety Concerns: Feels Safe At This Time Smoking Status: Current some day smoker Tobacco Type: cigars ; Cigarettes Per Day: one cigar every so often, less than one a month usually ; Do You Dip or Chew Tobacco: No ; Second Hand Exposure: No ; Tobacco Cessation Education Requested by Patient: No Hx Alcohol Use: Yes Alcohol type: beer Hx Substance Use: No Review of Systems Review of Systems: All systems reviewed & are unremarkable except as noted in HPI & below Physical Exam Physical Exam: General: patient obese, resting comfortably, NAD, non-toxic in appearance, AA&O x 4 Skin: warm, dry, healing wounds on RLE HEENT: NC/AT, PERRL, EOMI, anicteric sclera, conjunctiva without injection, external ear normal to inspection and nontender, nares patent, moist mucus membranes, dentition intact, no oropharyngeal lesions, neck supple, trachea midline, no LAD, no thyromegaly, no JVD Heart: +S1/S2, regular, no m/r/g Lungs: equal air entry bilaterally, +rales in bilateral lung bases to mid lung field Abd: obese, +BS, soft, NT/ND, no masses/organomegaly/ascites Ext: warm, 2+ pulses in UE/LE bilaterally, 2+ pitting edema of bilateral LE, bandage at right groin from previous cath - no hematoma/bleeding/erythema, AV fistula in RUE with palpable thrill Neuro: nonfocal, patient AA&O x 4, speech intact, no facial droop, moving all extremities on command with equal strength 5/5 Results & Data Vital Signs (Past 12 Hours) Vital Signs Temp Pulse Pulse Resp BP BP Pulse Ox 03/06/19 19:45 94 03/06/19 19:30 95 H 18 148/79 H 95 03/06/19 17:38 36.8 C 58 L 18 137/64 87 L Laboratory Results Lab Results 03/06/19 03/06/19 03/06/19 Range/Units 18:36 18:36 18:36 WBC 10.76 (4.8-10.8) K/uL RBC 3.73 L (4.7-6.1) M/uL Hgb 9.9 L (14.0-18.0) g/dL Hct 32.9 L (42-52) % MCV 88.2 (80-100) fL MCH 26.5 (25-34) pg MCHC 30.1 L (32-36) g/dL RDW Std Deviation 50.7 H (36.4-46.3) fL RDW Coeff of Atif 15.7 H (11.5-14.5) % Plt Count 251 (130-400) K/uL MPV 9.9 (7.4-10.4) fL Immature Gran % (Auto) 0.2 % Neut % (Auto) 80.8 % Lymph % (Auto) 7.8 % Wilkes % (Auto) 8.5 % Eos % (Auto) 2.4 % Baso % (Auto) 0.3 % Immature Gran # (Auto) 0.02 (0.00-0.02) K/uL Neut # (Auto) 8.70 H (1.4-6.5) K/uL Lymph # (Auto) 0.84 L (1.2-3.4) K/uL Wilkes # (Auto) 0.91 H (0.11-0.59) K/uL Eos # (Auto) 0.26 (0-0.5) K/uL Baso # (Auto) 0.03 (0-0.2) K/uL PT 11.1 (9.0-12.0) Seconds INR 1.1 (0.9-1.1) APTT 30.8 (21.0-31.0) Seconds PTT Ratio 1.1 Sodium 140 (136-145) mmol/L Potassium 4.4 (3.5-5.1) mmol/L Chloride 104 (98-107) mmol/L Carbon Dioxide 30 (21-32) mmol/L Anion Gap 6.0 (3-11) BUN 76 H (7-18) mg/dl Creatinine 4.01 H (0.6-1.4) mg/dl Est Cr Clr Drug Dosing 24.8 ml/min Est GFR ( Amer) 16.9 Est GFR (Non-Af Amer) 14.6 BUN/Creatinine Ratio 19.1 (10-20) Glucose 179 H (70-99) mg/dl POC Glucose (70-99) Calcium 8.3 L (8.5-10.1) mg/dl Troponin I < 0.015 (0-0.045) ng/ml NT-Pro-B Natriuret Pep 2517 H (0-900) pg/ml Lipase 179 (73-393) U/L 03/06/19 Range/Units 22:48 WBC (4.8-10.8) K/uL RBC (4.7-6.1) M/uL Hgb (14.0-18.0) g/dL Hct (42-52) % MCV (80-100) fL MCH (25-34) pg MCHC (32-36) g/dL RDW Std Deviation (36.4-46.3) fL RDW Coeff of Atif (11.5-14.5) % Plt Count (130-400) K/uL MPV (7.4-10.4) fL Immature Gran % (Auto) % Neut % (Auto) % Lymph % (Auto) % Wilkes % (Auto) % Eos % (Auto) % Baso % (Auto) % Immature Gran # (Auto) (0.00-0.02) K/uL Neut # (Auto) (1.4-6.5) K/uL Lymph # (Auto) (1.2-3.4) K/uL Wilkes # (Auto) (0.11-0.59) K/uL Eos # (Auto) (0-0.5) K/uL Baso # (Auto) (0-0.2) K/uL PT (9.0-12.0) Seconds INR (0.9-1.1) APTT (21.0-31.0) Seconds PTT Ratio Sodium (136-145) mmol/L Potassium (3.5-5.1) mmol/L Chloride (98-107) mmol/L Carbon Dioxide (21-32) mmol/L Anion Gap (3-11) BUN (7-18) mg/dl Creatinine (0.6-1.4) mg/dl Est Cr Clr Drug Dosing ml/min Est GFR ( Amer) Est GFR (Non-Af Amer) BUN/Creatinine Ratio (10-20) Glucose (70-99) mg/dl POC Glucose 140 H (70-99) Calcium (8.5-10.1) mg/dl Troponin I (0-0.045) ng/ml NT-Pro-B Natriuret Pep (0-900) pg/ml Lipase (73-393) U/L Diagnostic Findings XR chest 1V portable CLINICAL HISTORY: 68 years-old Male presenting with Chest Pain. TECHNIQUE: Portable upright AP view of the chest was obtained. COMPARISON: 01/06/2019. FINDINGS: Cardiac silhouette moderately enlarged. Pulmonary vascular prominence new from prior. Interstitial prominence may reflect interlobular septal thickening. Added density of the lung bases. Suspected trace pleural effusions greater on the left. No large pneumothorax. Degenerative changes of the thoracic spine. IMPRESSION: 1. Moderate pulmonary edema with volume overload and congestive change. Early/developing pulmonary edema is difficult to exclude. 2. Trace bilateral pleural effusions and possible bibasilar atelectasis greater on the left. Electronically signed by: Joon George M.D. 03/06/2019 6:30 PM Dictated: 03/06/191827 Transcribed: 03/06/191827 ECG Additional Comments: The study shows sinus bradycardia at 54bpm, normal axis, 1st degree AV block with GU=317, ZJI=022, RVf=863, no acute ischemic changes Code Status & VTE Plan Code Status FULL CODE VTE Prophylaxis Plan VTE Prophylaxis will be ordered: Yes PG Care Time/CCT Total # of Minutes Spent Total Time Spent with Patient: Total time spent is greater than 50% in coordination of care (as documented) at patient's floor/unit and/or counseling patient: (1) CHF exacerbation Heart failure type: unspecified Qualified Code(s): I50.9 - Heart failure, unspecified (2) Anemia Anemia type: unspecified type Qualified Code(s): D64.9 - Anemia, unspecified (3) Sleep apnea Sleep apnea type: unspecified type Qualified Code(s): G47.30 - Sleep apnea, unspecified (4) HTN (hypertension) Hypertension type: essential hypertension Qualified Code(s): I10 - Essential (primary) hypertension (5) CAD (coronary artery disease) Coronary Disease-Associated Artery/Lesion type: [place] artery [place] vs. transplanted heart: [place] heart Associated angina: without angina Qualified Code(s): I25.10 - Atherosclerotic heart disease of [place] coronary artery without angina pectoris (6) Depression Depression Type: major depressive disorder Major depression recurrence: recurrent Active/Remission status: remission status unspecified Qualified Code(s): F33.9 - Major depressive disorder, recurrent, unspecified (7) BPH (benign prostatic hyperplasia) Lower urinary tract symptom presence: symptoms absent Qualified Code(s): N40.0 - Benign prostatic hyperplasia without lower urinary tract symptoms
[2019-03-06] MEDS ORDERED: GLUCAGON FOR INJ 1 MG VIAL SQ PRN (22:10)
[2019-03-06] MEDS ORDERED: ACETAMINOPHEN 325 MG TAB PO PRN (22:10)
[2019-03-06] MEDS ORDERED: LORATADINE 10 MG TAB PO PRN (22:10)
[2019-03-06] MEDS ORDERED: DEXTROSE 50% 50 ML SYRINGE IV PRN (22:10)
[2019-03-06] MEDS ORDERED: GLUCOSE 10 TABS/TUBE PO PRN (22:10)
[2019-03-06] MEDS ORDERED: GLUCOSE 40% GEL 15 GM TUBE PO PRN (22:10)
[2019-03-06] MEDS ORDERED: ALBUTEROL HFA 8 GM INHALER INH PRN (22:10)
[2019-03-06] MEDS: INSULIN ASPART 100 UNITS/ML 3 ML PEN SC SCH (22:53)
[2019-03-06] MEDS: INSULIN GLARGINE 100 UNIT/ML VIAL SQ SCH (22:55)
--- NOTE | 2019-03-06 23:09 | Emergency Department Note ---
Entered by Ania Kirkland acting as a scribe for Zack Neil History of Present Illness General Chief complaint: Shortness of Breath/Dyspnea Stated complaint: SOB Time Seen by Provider: 03/06/19 17:55 Source: patient History of Present Illness Provider complaint: Shortness of Breath/Dyspnea Onset (ago): day(s) 1 Radiation: non-radiation Relieved By: + none Exacerbated By: + movement Associated symptoms: + diaphoresis and + other (Lightheaded); no chest pain The patient is a 68 year old male who presents to the Emergency Room with complaints of worsening shortness of breath/dyspnea that began yesterday. He denies any chest pain. Reports his dyspnea is worsened with exertion.. The patient reports experiencing diaphoresis and lightheadedness but denies experiencing any chest pain. The patient mentioned that he had a stent placed in [place] and has kidney issues but is not on dialysis. He recently had an AV fistula placed in his right upper extremity for potential hemodialysis in the near future. Additionally, the patient notes that he does not use oxygen at home. Home Medications Home Medications Medication Instructions Recorded Confirmed Type Novolog PenFill U-100 Insulin 10 unit SUBCUT AC 01/06/19 03/06/19 History albuterol sulfate 2 puff INHALATION Q6H PRN 01/06/19 03/06/19 History amlodipine 10 mg PO QAM 01/06/19 03/06/19 History atorvastatin 20 mg PO PM 01/06/19 03/06/19 History clonidine HCl 0.1 mg PO BID 01/06/19 03/06/19 History furosemide [Lasix] 80 mg PO BID 01/06/19 03/06/19 History hydralazine 100 mg PO TID 01/06/19 03/06/19 History loratadine 10 mg PO DAILY PRN 01/06/19 03/06/19 History sertraline 25 mg PO QAM 01/06/19 03/06/19 History tamsulosin 0.4 mg PO QAM 01/06/19 03/06/19 History Lantus Solostar U-100 Insulin 60 unit SUBCUT BID 03/06/19 03/06/19 History aspirin [Aspir-81] 81 mg PO DAILY 03/06/19 03/06/19 History carvedilol [Coreg] 12.5 mg PO BID 03/06/19 03/06/19 History clopidogrel [Plavix] 75 mg PO DAILY 03/06/19 03/06/19 History Allergies Allergy/AdvReac Type Severity Reaction Status Date / Time ragweed pollen Allergy Mild CONGESTON Verified 03/06/19 19:13 Past Med/Surg History Medical History Sleep apnea (Chronic) HTN (hypertension) (Chronic) Surgical History No pertinent past surgical history Family History Other Hypertension Social History Preferred Language: Serbian Communication Ability: Effective Storeroom Supervisor Required: Yes Beliefs That Will Affect Care: None Current Living Situation: Alone Feels Safe at Home: Yes Smoking Status: Current some day smoker Hx Alcohol Use: No Hx Substance Use: No Review of Systems See HPI for pertinent positives & negatives. and A total of 10 systems reviewed and were otherwise negative Physical Exam Vital Signs Vital Signs - 24 hr 03/06/19 17:38 03/06/19 19:30 03/06/19 19:45 Temperature 36.8 C Temperature Source Oral Sepsis Recent Fever Within 48 Hours No Sepsis New/Unexplained Change in Mental Status No Sepsis Action Taken by Nursing No Action Required Pulse Rate 58 L Pulse Rate [Apical] 95 H Respiratory Rate 18 18 Blood Pressure 137/64 Blood Pressure [Left Arm] 148/79 H Blood Pressure Mean 88 Blood Pressure Mean [Left Arm] 102 Pulse Oximetry 87 L 95 94 Oxygen Delivery Method Room Air Nasal Cannula Oxygen Flow Rate 2 GENERAL: He is oriented to person, place, and time. He appears well-developed and well-nourished. He does not appear distressed. HENT: Exam performed. - Head: Normocephalic and atraumatic. - Right Ear: External ear normal. No mastoid tenderness. - Left Ear: External ear normal. No mastoid tenderness. - Mouth/Throat: The oropharynx is clear and moist. No trismus in the jaw. No dental abscesses or uvula swelling. No oropharyngeal exudate or tonsillar abscesses. EYES: Conjunctivae and EOM are normal. Pupils are equal, round, and reactive to light. Right eye exhibits no discharge. Left eye exhibits no discharge. No scleral icterus. NECK: Normal range of motion. Neck supple. No JVD present. No spinous process tenderness present. No carotid bruit present. No rigidity. No tracheal deviation and normal range of motion present. No Brudzinski's sign and no Kernig's sign noted. CV: Normal rate, regular rhythm, normal heart sounds and intact distal pulses. 2+ pitting edema of the bilateral lower extremities. Palpable radial pulses bue. PULM/CHEST: Effort normal and breath sounds normal. No respiratory distress. No stridor. He has no wheezes. Rales bilaterally. - Chest Wall: He exhibits no tenderness. ABD: Obese. Inguinal hernia that was easily reducible. The abdomen is soft and nontender. MUSC/SKEL: Normal range of motion. 2+ pitting edema of the bilateral lower extremities. Right upper extremity has a AV fistula with a palpable thrill. LYMPH: No cervical adenopathy. NEURO: He is alert and oriented to person, place, and time. He has normal stren gth. No cranial nerve deficit or sensory deficit. Coordination and gait normal. GCS eye subscore is 4. GCS verbal subscore is 5. GCS motor subscore is 6. Cerebellar tests wnl. SKIN: Skin is warm and dry. He is not diaphoretic. PSYCH: He has a normal mood and affect. Behavior is normal. Judgment and thought content normal. Course 1801: Past medical records reviewed. The patient was evaluated in room A12A. A complete history and physical exam was performed. Patient was found to be hypoxic on room air. He is mainly started on 2 L nasal cannula oxygen which improved his oxygen saturation. 1918: Vital signs stable on 2L nasal canula. Chest XRAY shows cardiomegaly with pulmonary edema. Labs shows a Creatinine of 4, baseline creatinine is about 3.5. As well as a pro bnp of 2517. The patient will be treated with 40mg of Lasix and admitted to Dr. Benitez- Hospitalist. Administered Medications Insulin Aspart (Novolog Flexpen) 0 units SC ACHS ANTONY Stop: 04/05/19 22:09 Last Admin: 03/06/19 22:53 Dose: 1 units Documented by: [id number] Cosigned by: [id number] Insulin Glargine (Lantus) 60 units SQ BID [facility] Stop: 04/05/19 22:09 Last Admin: 03/06/19 22:55 Dose: 60 units Documented by: [id number] Cosigned by: [id number] Discontinued Medications Aspirin (Aspirin) 324 mg PO NOW STA Stop: 03/06/19 18:12 Last Admin: 03/06/19 18:33 Dose: 324 mg Documented by: [id number] Furosemide (Lasix) 40 mg IV NOW STA Stop: 03/06/19 19:07 Last Admin: 03/06/19 19:42 Dose: 40 mg Documented by: [id number] Medical Decision Making Medical Records Attestation: I reviewed the patient's medical records. Home Medications Current Medication List: was personally reviewed by me Laboratory Data Attestation: I reviewed the patient's lab results. Result diagrams: 03/06/19 18:36 03/06/19 18:36 Lab Results 03/06/19 03/06/19 03/06/19 Range/Units 18:36 18:36 18:36 WBC 10.76 (4.8-10.8) K/uL RBC 3.73 L (4.7-6.1) M/uL Hgb 9.9 L (14.0-18.0) g/dL Hct 32.9 L (42-52) % MCV 88.2 (80-100) fL MCH 26.5 (25-34) pg MCHC 30.1 L (32-36) g/dL RDW Std Deviation 50.7 H (36.4-46.3) fL RDW Coeff of Atif 15.7 H (11.5-14.5) % Plt Count 251 (130-400) K/uL MPV 9.9 (7.4-10.4) fL Immature Gran % (Auto) 0.2 % Neut % (Auto) 80.8 % Lymph % (Auto) 7.8 % [place] % (Auto) 8.5 % Eos % (Auto) 2.4 % Baso % (Auto) 0.3 % Immature Gran # (Auto) 0.02 (0.00-0.02) K/uL Neut # (Auto) 8.70 H (1.4-6.5) K/uL Lymph # (Auto) 0.84 L (1.2-3.4) K/uL Victoria # (Auto) 0.91 H (0.11-0.59) K/uL Eos # (Auto) 0.26 (0-0.5) K/uL Baso # (Auto) 0.03 (0-0.2) K/uL PT 11.1 (9.0-12.0) Seconds INR 1.1 (0.9-1.1) APTT 30.8 (21.0-31.0) Seconds PTT Ratio 1.1 Sodium 140 (136-145) mmol/L Potassium 4.4 (3.5-5.1) mmol/L Chloride 104 (98-107) mmol/L Carbon Dioxide 30 (21-32) mmol/L Anion Gap 6.0 (3-11) BUN 76 H (7-18) mg/dl Creatinine 4.01 H (0.6-1.4) mg/dl Est Cr Clr Drug Dosing 24.8 ml/min Est GFR ( Amer) 16.9 Est GFR (Non-Af Amer) 14.6 BUN/Creatinine Ratio 19.1 (10-20) Glucose 179 H (70-99) mg/dl Calcium 8.3 L (8.5-10.1) mg/dl Troponin I < 0.015 (0-0.045) ng/ml NT-Pro-B Natriuret Pep 2517 H (0-900) pg/ml Lipase 179 (73-393) U/L Imaging Data Radiologist's Impression: Radiology results as stated below per my review and the radiologist's interpretation: XR chest 1V portable CLINICAL HISTORY: 68 years-old Male presenting with Chest Pain. TECHNIQUE: Portable upright AP view of the chest was obtained. COMPARISON: 01/06/2019. FINDINGS: Cardiac silhouette moderately enlarged. Pulmonary vascular prominence new from prior. Interstitial prominence may reflect interlobular septal thickening. Added density of the lung bases. Suspected trace pleural effusions greater on the le ft. No large pneumothorax. Degenerative changes of the thoracic spine. IMPRESSION: 1. Moderate pulmonary edema with volume overload and congestive change. Early/developing pulmonary edema is difficult to exclude. 2. Trace bilateral pleural effusions and possible bibasilar atelectasis greater on the left. Electronically signed by: Joon George M.D. 03/06/2019 6:30 PM ECG Data Attestation: I personally reviewed and interpreted this ECG as follows: Indication: SOB/dyspnea Rate (beats per minute): 53 Rhythm: normal sinus Findings: + other (ND 216. QTC and QRS within normal limits. ) and + 1st degree AV block; no ST depression and no ST elevation Blood Pressure Blood Pressure Findings: Elevated blood pressure Blood Pressure Disposition: further management by hospitalist CARLOS MANUEL Narrative 1801: Past medical records reviewed. The patient was evaluated in room A12A. A complete history and physical exam was performed. Patient was found to be hypoxic on room air. He is mainly started on 2 L nasal cannula oxygen which improved his oxygen saturation. 1917: Vital signs stable on 2L nasal canula. Chest XRAY shows cardiomegaly with pulmonary edema. Labs shows a Creatinine of 4, baseline creatinine is about 3.5. As well as a pro bnp of 2517. The patient will be treated with 40mg of Lasix and admitted to Dr. Benitez- Hospitalist. Impression & Plan Hypoxia, CHF exacerbation Critical Care Time Critical Care Time: Yes Total Critical Care Time: 66 I have personally spent greater than 66 minutes of critical care time in the direct management of this patient. This includes bedside care, interpretation of diagnostic studies, and testing, discussion with consultants, patient, and family members, and other required patient management activities. This 66 minutes is in excess of all separately billable procedures. Discharge Plan Visit Data *Final* Discharge Date/Time: 03/06/19 20:58 Chief Complaint: Shortness of Breath/Dyspnea Stated Complaint: SOB ED Provider: Zack Neil Discharge Problem: Hypoxia, CHF exacerbation Patient Disposition: Admitted As Inpatient Discharge Instructions Interventions: ED Discharge Assessment Last Done: 03/06/19 20:58 The scribe's documentation has been prepared under my direction and personally reviewed by me in its entirety. I confirm that the note above accurately reflects all work, treatment, procedures, and medical decision making performed by me.
[2019-03-07] MEDS ORDERED: INSULIN ASPART 100 UNITS/ML 3 ML PEN SC SCH (03:00)
[2019-03-07 07:00] LABS: Basophils # (auto) 0.05 K/uL (0-0.2); Basophils % (auto) 0.5 %; Eosinophils # (auto) 0.35 K/uL (0-0.5); Eosinophils % (auto) 3.2 %; Hematocrit (blood only) 32.5 % (42-52); Hemoglobin 9.9 g/dL (14.0-18.0); Immature Granulocytes # (auto) 0.03 K/uL (0.00-0.02); Immature Granulocytes % (auto) 0.3 %; Lymphocytes # (auto) 1.15 K/uL (1.2-3.4); Lymphocytes % (auto) 10.5 %; Mean Corpuscular Hemoglobin 26.8 pg (25-34); Mean Corpuscular Hgb Conc 30.5 g/dL (32-36); Mean Corpuscular Volume 87.8 fL (80-100); Mean Platelet Volume 9.8 fL (7.4-10.4); Monocytes # (auto) 0.66 K/uL (0.11-0.59); Neutrophils # (auto) 8.72 K/uL (1.4-6.5); Neutrophils % (auto) 79.5 %; Platelet Count 251 K/uL (130-400); RDW Coefficient of Variation 15.7 % (11.5-14.5); RDW Standard Deviation 50.9 fL (36.4-46.3); White Blood Count 10.96 K/uL (4.8-10.8)
[2019-03-07 07:29] LABS: BUN Creatinine Ratio 19.2 (10-20); Calcium 8.7 mg/dl (8.5-10.1); Creatinine Clr Calc Pharmacy 26.3 ml/min; Est GFR (Non-African American) 15.5; Magnesium 2.9 mg/dl (1.8-2.4); Potassium 3.9 mmol/L (3.5-5.1)
[2019-03-07] MEDS ORDERED: INSULIN ASPART U SQ SCH (07:30)
[2019-03-07] MEDS: SERTRALINE HCL 50 MG TABLET PO SCH (09:15)
[2019-03-07] MEDS: AMLODIPINE BESYLATE 5 MG TAB PO SCH (09:15)
[2019-03-07] MEDS: carvediloL 12.5 MG TAB PO SCH ×2 (09:15→21:11)
[2019-03-07] MEDS: TAMSULOSIN HCL 0.4 MG CAP PO SCH (09:15)
[2019-03-07] MEDS: ASPIRIN 81 MG ECTAB PO SCH (09:15)
[2019-03-07] MEDS: cloNIDine HCL 0.1 MG TAB PO SCH ×2 (09:15→21:11)
[2019-03-07] MEDS: CLOPIDOGREL BISULFATE 75 MG TAB PO SCH (09:15)
[2019-03-07] MEDS: HydrALAZINE TAB 50 MG TAB PO SCH ×3 (09:16→21:11)
[2019-03-07] MEDS: INSULIN ASPART 100 UNITS/ML 3 ML PEN SC SCH ×4 (09:25→21:12)
[2019-03-07] MEDS: INSULIN GLARGINE 100 UNIT/ML VIAL SQ SCH ×2 (09:26→21:11)
[2019-03-07] MEDS: FUROSEMIDE 80 MG in SYRINGE 0 ML IV SCH ×2 (10:08→16:29)
[2019-03-07] MEDS: CARBOHYDRATES FOR HYPOGLYCEMIA PO PRN (16:29)
[2019-03-07 17:02] LABS: BUN Creatinine Ratio 20.6 (10-20); Calcium 8.4 mg/dl (8.5-10.1); Creatinine Clr Calc Pharmacy 26.4 ml/min; Est GFR (African American) 18.1; Est GFR (Non-African American) 15.6; Potassium 3.7 mmol/L (3.5-5.1)
[2019-03-07] MEDS: ATORVASTATIN 20 MG TAB PO SCH (21:11)
--- NOTE | 2019-03-07 22:35 | Family Medicine Progress Note ---
Date of Service March 07, 2019 Assessment & Plan (1) BPH (benign prostatic hyperplasia): Angel Solorio is a 68 year old man with a past medical history of CHF, DMII, CKD IV here for CHF exacerbation Acute CHF exacerbation Has had similar exacerbations in the past. increased high sodium soups intake recently likely contributed to this exacerbation Echo Dec 2018 - normal LV size and function, EF of 60-65%. Dilated RV with normal function 10 pounds over dry weight, aggressively diuresing with IV lasix, will attempt to diurese him back to his dry weight around 277 Already 1.5 L down since admission and breathing much improved Monitor renal function closely considering CKD 4. Will check BMP's q12h and watch for bump in creatinine. He denies any chest pain, troponins, negative, EKG normal no evidence of ACS Will recheck echo Continue Carvedilol 12.5mg po BID, Hydralazine 100mg po TID. No SUZANNE/ARB secondary to declining renal function CKD IV Baseline creatinine of greater than 3 Up slightly to 4.01 on admission but improved slightly Will continue to monitor with BMP BID CAD S/P [place] [facility] Currently with no chest pain, negative troponin and normal ECG DMII -Continue Lantus 60u BID -ISS -Will hold prandial Novolog for now. If he requires a lot of sliding scale coverage would resume Novolog as well -CC diet as tolerated HTN On four agents Continue home hydralazine, clonidine, amlodipine and carvedilol, currently still slightly hypertensive Anemia Normochromic, normocytic anemia Chronic, no symptoms at this time at baseline Possibly from renal failure lack of EPO, recommend outpatient follow up HLD Continuing home atorvastatin Sleep apnea Will need to encourage patient to be more compliant with CPAP DVT PPx: SCD Dispo: Med/Surg+Tele F/E/N: AHA/low sodium diet Full code (2) Depression: (3) CAD (coronary artery disease): (4) Hypoxia: (5) CHF exacerbation: (6) Diabetes mellitus type 2 in obese: (7) Anemia: (8) Chronic kidney disease, stage 4 (severe): (9) Hypercholesterolemia: (10) NOMAN (acute kidney injury): (11) Sleep apnea: Supervising Physician Co-Signing Physician Notes Resident Physician Supervision Note: I independently interviewed and examined the patient and verified the roman history and physical, reviewed labs and image studies, discussed the case with the resident Dr. Ang and agree with the findings and care plan. Subjective Mr. Solorio is resting comfortably, feeling much better than yesterday. Tells me his shortness of breath is much improved. He denies any chest pain, cough, fever, chills, or GI symptoms. Review of Systems Review of Systems: All systems reviewed & are unremarkable except as noted in HPI & below Physical Exam Physical Exam: Constitutional: Patient is resting comfortably in bed, nasal cannula in place. No apparent distress communicating clearly in full sentences Eyes: EOMMI, anicteric sclerae Neck: Obese, unable to feel any masses/nodes, jugular venous pulse not detectable Respiratory: Chest expansion symmetric, good air entry globally, rales in bilateral lower lung bases Cardiovascular: Heart sounds dual, regular rate and rhythm, no murmurs, rubs, skips or gallops, GI: Obese Abdomen, soft nontender, no organomegaly Integumentary: 2+ pitting edema bilaterally, no rashes Results & Data Vital Signs (Past 12 Hours) Vital Signs Temp Pulse Pulse Resp BP Pulse Ox 03/07/19 16:00 56 L 03/07/19 15:08 36.7 C 59 L 16 144/72 H 91 03/07/19 11:05 37 C 56 L 18 145/69 H 92 03/07/19 07:45 54 L 03/07/19 06:59 36.8 C 57 L 20 140/75 91 PG Care Time/CCT Total # of Minutes Spent Total Time Spent with Patient: Total time spent is greater than 50% in coordination of care (as documented) at patient's floor/unit and/or counseling patient: Resident Activity Tracking Resident Involvement: Resident Care Provided Care Provided: Adult Hospital Medicine (1) BPH (benign prostatic hyperplasia) Lower urinary tract symptom presence: symptoms absent Qualified Code(s): N40.0 - Benign prostatic hyperplasia without lower urinary tract symptoms (2) CHF exacerbation Heart failure type: unspecified Qualified Code(s): I50.9 - Heart failure, unspecified (3) Sleep apnea Sleep apnea type: unspecified type Qualified Code(s): G47.30 - Sleep apnea, unspecified (4) CAD (coronary artery disease) Associated angina: without angina Coronary Disease-Associated Artery/Lesion type: [place] artery [place] vs. transplanted heart: [place] heart Qualified Code(s): I25.10 - Atherosclerotic heart disease of [place] coronary artery without angina pectoris (5) Anemia Anemia type: unspecified type Qualified Code(s): D64.9 - Anemia, unspecified (6) Depression Active/Remission status: remission status unspecified Depression Type: major depressive disorder Major depression recurrence: recurrent Qualified Code(s): F33.9 - Major depressive disorder, recurrent, unspecified
[2019-03-08] MEDS: FUROSEMIDE 80 MG in SYRINGE 0 ML IV SCH ×2 (06:15→17:28)
[2019-03-08 07:00] LABS: Basophils # (auto) 0.02 K/uL (0-0.2); Basophils % (auto) 0.2 %; Eosinophils # (auto) 0.24 K/uL (0-0.5); Eosinophils % (auto) 2.1 %; Hematocrit (blood only) 34.4 % (42-52); Hemoglobin 10.5 g/dL (14.0-18.0); Immature Granulocytes # (auto) 0.03 K/uL (0.00-0.02); Immature Granulocytes % (auto) 0.3 %; Mean Corpuscular Hemoglobin 26.8 pg (25-34); Mean Corpuscular Hgb Conc 30.5 g/dL (32-36); Mean Corpuscular Volume 87.8 fL (80-100); Monocytes # (auto) 0.95 K/uL (0.11-0.59); Monocytes % (auto) 8.3 %; Neutrophils # (auto) 9.43 K/uL (1.4-6.5); Neutrophils % (auto) 82.1 %; Platelet Count 260 K/uL (130-400); RDW Coefficient of Variation 15.7 % (11.5-14.5); RDW Standard Deviation 50.7 fL (36.4-46.3); Red Blood Count 3.92 M/uL (4.7-6.1); White Blood Count 11.47 K/uL (4.8-10.8)
[2019-03-08 07:41] LABS: BUN Creatinine Ratio 19.6 (10-20); Calcium 8.2 mg/dl (8.5-10.1); Creatinine Clr Calc Pharmacy 23.9 ml/min; Est GFR (African American) 16.1; Est GFR (Non-African American) 13.9; Magnesium 2.9 mg/dl (1.8-2.4); Potassium 4.1 mmol/L (3.5-5.1)
[2019-03-08] MEDS: INSULIN GLARGINE 100 UNIT/ML VIAL SQ SCH ×2 (08:54→20:35)
[2019-03-08] MEDS: INSULIN ASPART 100 UNITS/ML 3 ML PEN SC SCH ×4 (08:55→20:34)
[2019-03-08] MEDS: cloNIDine HCL 0.1 MG TAB PO SCH ×2 (08:56→20:16)
[2019-03-08] MEDS: HydrALAZINE TAB 50 MG TAB PO SCH ×3 (08:56→20:16)
[2019-03-08] MEDS: carvediloL 12.5 MG TAB PO SCH ×2 (08:57→20:17)
[2019-03-08] MEDS: TAMSULOSIN HCL 0.4 MG CAP PO SCH (08:57)
[2019-03-08] MEDS: ASPIRIN 81 MG ECTAB PO SCH (08:57)
[2019-03-08] MEDS: AMLODIPINE BESYLATE 5 MG TAB PO SCH (08:58)
[2019-03-08] MEDS: CLOPIDOGREL BISULFATE 75 MG TAB PO SCH (08:58)
[2019-03-08] MEDS: SERTRALINE HCL 50 MG TABLET PO SCH (08:58)
--- NOTE | 2019-03-08 14:25 | Nephrology Consultation ---
Date of Consultation March 08, 2019 Assessment & Plan (1) CAD (coronary artery disease): (2) CHF exacerbation: (3) Chronic kidney disease, stage 4 (severe): Advanced chronic kidney disease approaching the need for dialysis. Thankfully, at this time there is no emergent indication to start dialysis. Based on the patient's history it sounds like the patient will require transposition his AV fistula prior to use. Additional records have been requested from the [facility]. Av fistula has a good thrill and bruit, however it is obviously deep. Patient is responding to diuretics. Electrolytes are acceptable. He reports that he believes increased dietary sodium intake is responsible for his fluid retention. At this time will continue with IV furosemide. It is noted that the patient did have an adequate response to IV Bumex during his recent hospitalization. Will monitor metabolic profile twice daily. I will continue to evaluate the patient and follow closely. Medications are acceptable for his kidney function. Blood pressure is well controlled. Urine studies will be updated. Renal ultrasound will also be updated to rule out any obstruction at this time. (4) NOMAN (acute kidney injury): History of Present Illness Reason for Consultation: NOMAN/CKD Requesting Physician: Magali Shields MD Attending Physician: Magali Shields MD History of Present Illness Angel Solorio is a 68-year-old male with chronic kidney disease stage 4 to 5, hypertension, diabetes mellitus. Angel was admitted to the hospital with acute respiratory failure. Nephrology consult was requested to manage acute kidney injury with history of underlying advanced CKD. The patient had a very similar admission in December of 2018. Angel presented to the hospital acute shortness of breath and edema which were progressive over several days prior to admission. He has already noted significant improvement. However he still remains on supplemental oxygen. Net significant diuresis has not been obtained. Patient's weight is significantly elevated from baseline. He denies any change in urine output. He cannot identify any specific trigger his current symptoms. It is noted that he recently underwent cardiac PCI with stent placement. He has stage IV CKD, baseline creatinine has been quite variable around 3.0. He has a moderate degree proteinuria. CKD has been attributed to hypertensive nephropathy, never had a kidney biopsy. No family history of chronic kidney disease or end-stage renal disease. Denies chronic NSAID use. He has right brachiocephalic AV fistula placed in November and per the patient's report a transposition is scheduled. Angel follows with [facility] in [place]. On admission creatinine was 4.0, electrolyte acceptable. Blood pressure seems to be well controlled. At home was on Lasix 80 milligram twice a day but not on any SUZANNE-inhibitor or ARB. Allergies Allergy/AdvReac Type Severity Reaction Status Date / Time ragweed pollen Allergy Mild [place] Verified 03/06/19 19:13 Home Medications Home Medications Medication Instructions Recorded Confirmed Type Novolog PenFill U-100 Insulin 10 unit SUBCUT AC 01/06/19 03/06/19 History albuterol sulfate 2 puff INHALATION Q6H PRN 01/06/19 03/06/19 History amlodipine 10 mg PO QAM 01/06/19 03/06/19 History atorvastatin 20 mg PO PM 01/06/19 03/06/19 History clonidine HCl 0.1 mg PO BID 01/06/19 03/06/19 History furosemide [Lasix] 80 mg PO BID 01/06/19 03/06/19 History hydralazine 100 mg PO TID 01/06/19 03/06/19 History loratadine 10 mg PO DAILY PRN 01/06/19 03/06/19 History sertraline 25 mg PO QAM 01/06/19 03/06/19 History tamsulosin 0.4 mg PO QAM 01/06/19 03/06/19 History Lantus Solostar U-100 Insulin 60 unit SUBCUT BID 03/06/19 03/06/19 History aspirin [Aspir-81] 81 mg PO DAILY 03/06/19 03/06/19 History carvedilol [Coreg] 12.5 mg PO BID 03/06/19 03/06/19 History clopidogrel [Plavix] 75 mg PO DAILY 03/06/19 03/06/19 History Patient History Medical History Sleep apnea (Chronic) does not use CPAP HTN (hypertension) (Chronic) Anemia CAD (coronary artery disease) s/p stent 2018 CKD (chronic kidney disease) Stage 4 Diabetes Dyslipidemia Surgical History AV fistula Family History Other Hypertension Social History Preferred Language: [place] Communication Ability: Effective Validation Analyst Required: No Beliefs That Will Affect Care: None marital status: Current Living Situation: Alone Other Information That Helps Us Care for You: No Feels Safe at Home: Yes Safety Concerns: Feels Safe At This Time Smoking Status: Current some day smoker Tobacco Type: cigars ; Cigarettes Per Day: one cigar every so often, less than one a month usually ; Do You Dip or Chew Tobacco: No ; Second Hand Exposure: No ; Tobacco Cessation Education R equested by Patient: No Hx Alcohol Use: Yes Alcohol type: beer Hx Substance Use: No Review of Systems Constitutional: + fatigue and + weight gain; no problem reported Eyes: no problem reported Ear, Nose, Mouth, Throat: no problem reported Respiratory: no problem reported Cardiovascular: no problem reported Gastrointestinal: no problem reported Musculoskeletal: no problem reported Integumentary: no problem reported Neurologic: no problem reported Psychiatric: no problem reported Endocrine: no problem reported Hematologic / Lymphatic: no problem reported Physical Exam Constitutional: well developed, + obese and + edematous; no acute distress Eyes: + anicteric sclerae; no scleral abnormality and no corneal abnormality ENMT: Mouth: no oral mucosal abnormality and oral mucous membranes not dry Neck: normal visual inspection and trachea midline Respiratory: normal respiratory effort Auscultation: lungs clear to auscultation bilaterally Cardiovascular: Rate/Rhythm: + bradycardic Heart Sounds: normal S1, normal S2 and + murmur Extremities: + edema and + AV fistula Musculoskeletal: Extremities: no cyanosis and no clubbing Skin: normal turgor; no lesions Neurologic: Motor/Sensory: no tremor and no asterixis Psychiatric: Orientation: alert and oriented x 3 Results & Data Vital Signs (Past 12 Hours) Vital Signs Temp Pulse Resp BP Pulse Ox 03/08/19 11:03 36.3 C L 57 L 18 133/77 93 03/08/19 08:50 94 03/08/19 07:26 36.4 C L 61 18 139/64 92 03/08/19 04:25 37.0 C 67 23 138/65 92 Laboratory Results Laboratory Results - last 24 hr 03/07/19 03/07/19 03/07/19 16:22 16:23 16:34 WBC RBC Hgb Hct MCV MCH MCHC RDW Std Deviation RDW Coeff of Atif Plt Count MPV Immature Gran % (Auto) Neut % (Auto) Lymph % (Auto) [place] % (Auto) Eos % (Auto) Baso % (Auto) Immature Gran # (Auto) Neut # (Auto) Lymph # (Auto) [place] # (Auto) Eos # (Auto) Baso # (Auto) Sodium 138 Potassium 3.7 Chloride 103 Carbon Dioxide 30 Anion Gap 6.0 BUN 78 H Creatinine 3.79 H Est Cr Clr Drug Dosing 26.4 Est GFR ( Amer) 18.1 Est GFR (Non-Af Amer) 15.6 BUN/Creatinine Ratio 20.6 H Glucose 62 L POC Glucose 63 L* 62 L* Calcium 8.4 L Magnesium 3.0 H 03/07/19 03/07/19 03/08/19 16:44 20:26 06:44 WBC RBC Hgb Hct MCV MCH MCHC RDW Std Deviation RDW Coeff of Atif Plt Count MPV Immature Gran % (Auto) Neut % (Auto) Lymph % (Auto) [place] % (Auto) Eos % (Auto) Baso % (Auto) Immature Gran # (Auto) Neut # (Auto) Lymph # (Auto) [place] # (Auto) Eos # (Auto) Baso # (Auto) Sodium 139 Potassium 4.1 Chloride 102 Carbon Dioxide 29 Anion Gap 8.0 BUN 82 H Creatinine 4.17 H D Est Cr Clr Drug Dosing 23.9 Est GFR ( Amer) 16.1 Est GFR (Non-Af Amer) 13.9 BUN/Creatinine Ratio 19.6 Glucose 128 H POC Glucose 71 173 H Calcium 8.2 L Magnesium 2.9 H 03/08/19 03/08/19 03/08/19 06:44 07:36 11:33 WBC 11.47 H RBC 3.92 L Hgb 10.5 L Hct 34.4 L MCV 87.8 MCH 26.8 MCHC 30.5 L RDW Std Deviation 50.7 H RDW Coeff of Atif 15.7 H Plt Count 260 MPV 10.0 Immature Gran % (Auto) 0.3 Neut % (Auto) 82.1 Lymph % (Auto) 7.0 [place] % (Auto) 8.3 Eos % (Auto) 2.1 Baso % (Auto) 0.2 Immature Gran # (Auto) 0.03 H Neut # (Auto) 9.43 H Lymph # (Auto) 0.80 L [place] # (Auto) 0.95 H Eos # (Auto) 0.24 Baso # (Auto) 0.02 Sodium Potassium Chloride Carbon Dioxide Anion Gap BUN Creatinine Est Cr Clr Drug Dosing Est GFR ( Amer) Est GFR (Non-Af Amer) BUN/Creatinine Ratio Glucose POC Glucose 133 H 126 H Calcium Magnesium PG Care Time/CCT Total # of Minutes Spent Total Time Spent with Patient: Total time spent is greater than 50% in coordination of care (as documented) at patient's floor/unit and/or counseling patient: (1) CAD (coronary artery disease) Coronary Disease-Associated Artery/Lesion type: [place] artery [place] vs. tr ansplanted heart: [place] heart Associated angina: without angina Qualified Code(s): I25.10 - Atherosclerotic heart disease of [place] coronary artery without angina pectoris (2) CHF exacerbation Heart failure type: unspecified Qualified Code(s): I50.9 - Heart failure, unspecified
[2019-03-08 16:23] LABS: BUN Creatinine Ratio 20.1 (10-20); Calcium 8.5 mg/dl (8.5-10.1); Creatinine Clr Calc Pharmacy 23.4 ml/min; Est GFR (African American) 15.7; Est GFR (Non-African American) 13.5; Potassium 3.8 mmol/L (3.5-5.1)
--- NOTE | 2019-03-08 17:27 | Ultrasound Report ---
US renal/blad retro comp HISTORY: Renal insufficiency saul/ckd COMPARISON: 09/14/2017 FINDINGS: Right kidney: Maximum dimension 10 cm. No evidence for hydronephrosis. Cortical thinning with moderat e increase in cortical echogenicity Left kidney: Maximum dimension 10 cm. No evidence for hydronephrosis. Cortical thinning with moderat e increase in cortical echogenicity. 1.8 cm midpole cyst. Bladder: No bladder wall thickening. The bilateral ureteral jets were identified. IMPRESSION: 1. No evidence for hydronephrosis. 2. Moderate cortical thinning with increased cortical echogenicity bilaterally consistent with nonobs tructive renal insufficiency. 3. Small left renal cyst. The above report was generated using voice recognition software. It may contain grammatical, syntax or spelling errors. Electronically signed by: Eliceo Mccain M.D. 03/08/2019 5:24 PM
[2019-03-08 17:56] LABS: Appearance Urine Clear (Clear); Bilirubin Urine Negative (Negative); Blood Urine Negative (Negative); Color Urine Yellow; Glucose Urine UA Negative (Negative); Ketones Urine Negative (Negative); Leukocyte Esterase Urine Negative (Negative); Nitrite Urine Negative (Negative); Protein Urine Negative (Negative); Specific Gravity Urine 1.018 (1.000-1.030); Urobilinogen Urine Negative (Negative)
--- NOTE | 2019-03-08 19:56 | Family Medicine Progress Note ---
Date of Service March 08, 2019 Assessment & Plan (1) BPH (benign prostatic hyperplasia): Angel Solorio is a 68 year old man with a past medical history of CHF, DMII, CKD IV here for CHF exacerbation Acute on chronic CHF exacerbation Patient tells me he has had similar exacerbations in the past and that recently he has been eating high sodium soups quite frequently which likely precipitated this exacerbation Echo from December which revealed normal LV size and function, EF of 60-65%. Dilated RV with normal function Patient about 10 pounds over dry weight, aggressively diuresing with IV lasix, will attempt to diurese him back to his dry weight around 277 still at 285 2.2 L down since admission and breathing much improved Patient will need to be watched carefully for dehydration as he already has very poor renal function. Will check BMP's q12h and watch for bump in creatinine. He denies any chest pain, troponins, negative, EKG normal no evidence of ACS Will recheck echo Continue Carvedilol 12.5 mg po BID, Hydralazine 100mg po TID. No SUZANNE/ARB secondary to declining renal function NOMAN CKD IV Baseline creatinine of greater than 3 Up slightly to 4.01 on admission but improved slightly Will continue to monitor with BMP BID CAD S/P [place] [facility] Currently with no chest pain, negative troponin and normal ECG DMII -Continue Lantus 60u BID -ISS -CC diet as tolerated HTN On four agents Continue home hydralazine, clonidine, amlodipine and carvedilol, currently still slightly hypertensive Anemia Normochromic, normocytic anemia Chronic, no symptoms at this time at baseline Possibly from renal failure lack of EPO, recommend outpatient follow up HLD Continuing home atorvastatin Sleep apnea Will need to encourage patient to be more compliant with CPAP Morbid obesity -discussed weight loss. to further address as outpatient. DVT PPx: SCD Dispo: Med/Surg+Tele F/E/N: AHA/low sodium diet Full code (2) Depression: (3) CAD (coronary artery disease): (4) Hypoxia: (5) CHF exacerbation: (6) Diabetes mellitus type 2 in obese: (7) Anemia: (8) Chronic kidney disease, stage 4 (severe): (9) Hypercholesterolemia: (10) NOMAN (acute kidney injury): (11) Sleep apnea: Supervising Physician Co-Signing Physician Notes Resident Physician Supervision Note: I independently interviewed and examined the patient and verified the roman history and physical, reviewed labs and image studies, discussed the case with the resident Dr. Ang and agree with the findings and care plan. Subjective Mr. Solorio is doing well today, no new complaints breathing easier than he did yesterday. He denies any increased work of breathing or dyspnea. He has been more mobile today. Still requiring nasal cannula Review of Systems Review of Systems: All systems reviewed & are unremarkable except as noted in HPI & below Physical Exam Physical Exam: Constitutional: Patient is resting comfortably in bed, nasal cannula in place. No apparent distress communicating clearly in full sentences Eyes: EOMMI, anicteric sclerae Neck: Obese, unable to feel any masses/nodes, jugular venous pulse not detectable Respiratory: Chest expansion symmetric, good air entry globally, rales in bilateral lower lung bases Cardiovascular: Heart sounds dual, regular rate and rhythm, no murmurs, rubs, skips or gallops, GI: Obese Abdomen, soft nontender, no organomegaly Integumentary: 2+ pitting edema bilaterally, no rashes Results & Data Vital Signs (Past 12 Hours) Vital Signs Temp Pulse Pulse Resp BP Pulse Ox 03/08/19 19:11 36.8 C 64 19 154/76 H 94 03/08/19 16:14 52 L 03/08/19 15:08 36.4 C L 58 L 20 120/51 L 90 03/08/19 11:03 36.3 C L 57 L 18 133/77 93 03/08/19 08:50 94 PG Care Time/CCT Total # of Minutes Spent Total Time Spent with Patient: Total time spent is greater than 50% in coordination of care (as documented) at patient's floor/unit and/or counseling patient: Resident Activity Tracking Resident Involvement: Resident Care Provided Care Provided: Adult Hospital Medicine (1) BPH (benign prostatic hyperplasia) Lower urinary tract symptom presence: symptoms absent Qualified Code(s): N40.0 - Benign prostatic hyperplasia without lower urinary tract symptoms (2) CHF exacerbation Heart failure type: unspecified Qualified Code(s): I50.9 - Heart failure, unspecified (3) Sleep apnea Sleep apnea type: unspecified type Qualified Code(s): G47.30 - Sleep apnea, unspecified (4) CAD (coronary artery disease) Associated angina: without angina Coronary Disease-Associated Artery/Lesion type: [place] artery [place] vs. transplanted heart: [place] heart Qualified Code(s): I25.10 - Atherosclerotic heart disease of [place] coronary artery without angina pectoris (5) Anemia Anemia type: unspecified type Qualified Code(s): D64.9 - Anemia, unspecified (6) Depression Active/Remission status: remission status unspecified Depression Type: major depressive disorder Major depression recurrence: recurrent Qualified Code(s): F33.9 - Major depressive disorder, recurrent, unspecified
[2019-03-08] MEDS: ATORVASTATIN 20 MG TAB PO SCH (20:17)
[2019-03-09 00:55] LABS: BUN Creatinine Ratio 20.4 (10-20); Calcium 8.6 mg/dl (8.5-10.1); Creatinine Clr Calc Pharmacy 24.7 ml/min; Est GFR (African American) 16.7; Est GFR (Non-African American) 14.4; Potassium 3.7 mmol/L (3.5-5.1)
[2019-03-09] MEDS: FUROSEMIDE 80 MG in SYRINGE 0 ML IV SCH (06:32)
[2019-03-09 06:45] LABS: Basophils # (auto) 0.02 K/uL (0-0.2); Basophils % (auto) 0.2 %; Eosinophils # (auto) 0.37 K/uL (0-0.5); Eosinophils % (auto) 3.8 %; Hematocrit (blood only) 34.7 % (42-52); Hemoglobin 10.7 g/dL (14.0-18.0); Immature Granulocytes # (auto) 0.02 K/uL (0.00-0.02); Immature Granulocytes % (auto) 0.2 %; Lymphocytes # (auto) 0.95 K/uL (1.2-3.4); Lymphocytes % (auto) 9.7 %; Mean Corpuscular Hgb Conc 30.8 g/dL (32-36); Mean Corpuscular Volume 87.4 fL (80-100); Mean Platelet Volume 10.1 fL (7.4-10.4); Monocytes # (auto) 0.89 K/uL (0.11-0.59); Monocytes % (auto) 9.1 %; Neutrophils # (auto) 7.54 K/uL (1.4-6.5); Platelet Count 283 K/uL (130-400); RDW Coefficient of Variation 15.7 % (11.5-14.5); RDW Standard Deviation 50.3 fL (36.4-46.3); Red Blood Count 3.97 M/uL (4.7-6.1); White Blood Count 9.79 K/uL (4.8-10.8)
[2019-03-09 07:15] LABS: BUN Creatinine Ratio 21.9 (10-20); Calcium 8.5 mg/dl (8.5-10.1); Creatinine Clr Calc Pharmacy 25.1 ml/min; Est GFR (African American) 17.1; Est GFR (Non-African American) 14.7; Potassium 3.7 mmol/L (3.5-5.1)
[2019-03-09] MEDS: CARBOHYDRATES FOR HYPOGLYCEMIA PO PRN (07:51)
[2019-03-09] MEDS: cloNIDine HCL 0.1 MG TAB PO SCH (07:55)
[2019-03-09] MEDS: HydrALAZINE TAB 50 MG TAB PO SCH ×2 (07:55→13:18)
[2019-03-09] MEDS: carvediloL 12.5 MG TAB PO SCH (07:56)
[2019-03-09] MEDS: TAMSULOSIN HCL 0.4 MG CAP PO SCH (07:56)
[2019-03-09] MEDS: AMLODIPINE BESYLATE 5 MG TAB PO SCH (07:57)
[2019-03-09] MEDS: SERTRALINE HCL 50 MG TABLET PO SCH (07:57)
[2019-03-09] MEDS: ASPIRIN 81 MG ECTAB PO SCH (07:57)
[2019-03-09] MEDS: CLOPIDOGREL BISULFATE 75 MG TAB PO SCH (07:57)
[2019-03-09] MEDS ORDERED: PHARMACY GLYCEMIC MGMT CONSULT PRN (08:52)
[2019-03-09] MEDS: INSULIN ASPART 100 UNITS/ML 3 ML PEN SC SCH (09:59)
[2019-03-09] MEDS: INSULIN GLARGINE 100 UNIT/ML VIAL SQ SCH (10:00)
[2019-03-09] MEDS ORDERED: INSULIN ASPART 100 UNITS/ML 3 ML PEN SC SCH (11:30)
--- NOTE | 2019-03-09 12:00 | Nephrology Progress Note ---
Date of Service March 09, 2019 Assessment & Plan (1) CAD (coronary artery disease): (2) CHF exacerbation: (3) Chronic kidney disease, stage 4 (severe): Advanced chronic kidney disease approaching the need for dialysis. Thankfully, at this time there is no emergent indication to start dialysis. Based on the patient's history it sounds like the patient will require transposition his AV fistula prior to use. He has follow-up with his data center project manager as well as vascular surgeon at the [facility] in [place] next week. Patient appears to have responded well to diuretics with fairly stable kidney function. There is no emergent indication for dialysis at this time. Electrolytes are acceptable. He reports that increased dietary sodium intake is responsible for his fluid retention. If the patient remains stable this afternoon, I suspect he will be appropriate for discharge with close outpatient follow-up. He could resume furosemide 80 milligrams twice daily with a prescription for additional diuretic as needed. It is noted that the patient did have an adequate response to IV Bumex during his recent hospitalization. UA is bland. Renal ultrasound did not demonstrate any evidence of obstruction. (4) NOMAN (acute kidney injury): Subjective No acute events overnight. Overall, the patient feels well this morning. He hopes to be discharged later today. He is ambulating without difficulty. He notes that his edema has resolved. He denies any urinary symptoms. Appetite is good. He intends to follow up with his data center project manager at the [place] next week. Review of Systems Review of Systems: All systems reviewed & are unremarkable except as noted in HPI & below Physical Exam Constitutional: well developed, + obese and + edematous; no acute distress Eyes: + anicteric sclerae; no scleral abnormality and no corneal abnormality ENMT: Mouth: no oral mucosal abnormality and oral mucous membranes not dry Neck: normal visual inspection and trachea midline Respiratory: normal respiratory effort Auscultation: lungs clear to auscultation bilaterally Cardiovascular: Rate/Rhythm: + bradycardic Heart Sounds: normal S1, normal S2 and + murmur Extremities: + AV fistula Musculoskeletal: Extremities: no cyanosis and no clubbing Skin: normal turgor; no lesions Neurologic: Motor/Sensory: no tremor and no asterixis Psychiatric: Orientation: alert and oriented x 3 Results & Data Vital Signs (Past 12 Hours) Vital Signs Temp Pulse Resp BP Pulse Ox 03/09/19 11:37 36.5 C 61 20 148/64 H 86 L 03/09/19 07:35 36.4 C L 64 20 133/74 94 03/09/19 07:32 36.6 C 56 L 20 150/67 H 94 03/09/19 02:57 36.9 C 56 L 17 134/62 94 Laboratory Results Laboratory Results - last 24 hr 03/08/19 03/08/19 03/08/19 15:48 16:40 16:43 WBC RBC Hgb Hct MCV MCH MCHC RDW Std Deviation RDW Coeff of Atif Plt Count MPV Immature Gran % (Auto) Neut % (Auto) Lymph % (Auto) [place] % (Auto) Eos % (Auto) Baso % (Auto) Immature Gran # (Auto) Neut # (Auto) Lymph # (Auto) [place] # (Auto) Eos # (Auto) Baso # (Auto) Sodium 140 Potassium 3.8 Chloride 103 Carbon Dioxide 29 Anion Gap 8.0 BUN 86 H Creatinine 4.26 H Est Cr Clr Drug Dosing 23.4 Est GFR ( Amer) 15.7 Est GFR (Non-Af Amer) 13.5 BUN/Creatinine Ratio 20.1 H Glucose 58 L POC Glucose 66 L* 70 Calcium 8.5 Urine Color Urine Appearance Urine pH Ur Specific [place] Urine Protein Urine Glucose (UA) Urine Ketones Urine Blood Urine Nitrite Urine Bilirubin Urine Urobilinogen Ur Leukocyte Esterase Stool Occult Bld Scrn 03/08/19 03/08/19 03/09/19 17:20 20:21 00:24 WBC RBC Hgb Hct MCV MCH MCHC RDW Std Deviation RDW Coeff of Atif Plt Count MPV Immature Gran % (Auto) Neut % (Auto) Lymph % (Auto) [place] % (Auto) Eos % (Auto) Baso % (Auto) Immature Gran # (Auto) Neut # (Auto) Lymph # (Auto) [place] # (Auto) Eos # (Auto) Baso # (Auto) Sodium 140 Potassium 3.7 Chloride 102 Carbon Dioxide 32 Anion Gap 6.0 BUN 82 H Creatinine 4.04 H Est Cr Clr Drug Dosing 24.7 Est GFR ( Amer) 16.7 Est GFR (Non-Af Amer) 14.4 BUN/Creatinine Ratio 20.4 H Glucose 69 L POC Glucose 250 H Calcium 8.6 Urine Color Yellow Urine Appearance Clear Urine pH 5.0 Ur Specific [place] 1.018 Urine Protein Negative Urine Glucose (UA) Negative Urine Ketones Negative Urine Blood Negative Urine Nitrite Negative Urine Bilirubin Negative Urine Urobilinogen Negative Ur Leukocyte Esterase Negative Stool Occult Bld Scrn 03/09/19 03/09/19 03/09/19 06:26 06:26 07:45 WBC 9.79 RBC 3.97 L Hgb 10.7 L Hct 34.7 L MCV 87.4 MCH 27.0 MCHC 30.8 L RDW Std Deviation 50.3 H RDW Coeff of Atif 15.7 H Plt Count 283 MPV 10.1 Immature Gran % (Auto) 0.2 Neut % (Auto) 77.0 Lymph % (Auto) 9.7 [place] % (Auto) 9.1 Eos % (Auto) 3.8 Baso % (Auto) 0.2 Immature Gran # (Auto) 0.02 Neut # (Auto) 7.54 H Lymph # (Auto) 0.95 L [place] # (Auto) 0.89 H Eos # (Auto) 0.37 Baso # (Auto) 0.02 Sodium 141 Potassium 3.7 Chloride 104 Carbon Dioxide 31 Anion Gap 6.0 BUN 87 H Creatinine 3.97 H Est Cr Clr Drug Dosing 25.1 Est GFR ( Amer) 17.1 Est GFR (Non-Af Amer) 14.7 BUN/Creatinine Ratio 21.9 H Glucose 56 L POC Glucose 34 L* Calcium 8.5 Urine Color Urine Appearance Urine pH Ur Specific [place] Urine Protein Urine Glucose (UA) Urine Ketones Urine Blood Urine Nitrite Urine Bilirubin Urine Urobilinogen Ur Leukocyte Esterase Stool Occult Bld Scrn 03/09/19 03/09/19 03/09/19 07:47 08:14 08:16 WBC RBC Hgb Hct MCV MCH MCHC RDW Std Deviation RDW Coeff of Atif Plt Count MPV Immature Gran % (Auto) Neut % (Auto) Lymph % (Auto) [place] % (Auto) Eos % (Auto) Baso % (Auto) Immature Gran # (Auto) Neut # (Auto) Lymph # (Auto) [place] # (Auto) Eos # (Auto) Baso # (Auto) Sodium Potassium Chloride Carbon Dioxide Anion Gap BUN Creatinine Est Cr Clr Drug Dosing Est GFR ( Amer) Est GFR (Non-Af Amer) BUN/Creatinine Ratio Glucose POC Glucose 31 L* 276 H 87 Calcium Urine Color Urine Appearance Urine pH Ur Specific [place] Urine Protein Urine Glucose (UA) Urine Ketones Urine Blood Urine Nitrite Urine Bilirubin Urine Urobilinogen Ur Leukocyte Esterase Stool Occult Bld Scrn 03/09/19 03/09/19 03/09/19 08:18 08:32 Unknown WBC RBC Hgb Hct MCV MCH MCHC RDW Std Deviation RDW Coeff of Atif Plt Count MPV Immature Gran % (Auto) Neut % (Auto) Lymph % (Auto) [place] % (Auto) Eos % (Auto) Baso % (Auto) Immature Gran # (Auto) Neut # (Auto) Lymph # (Auto) [place] # (Auto) Eos # (Auto) Baso # (Auto) Sodium Potassium Chloride Carbon Dioxide Anion Gap BUN Creatinine Est Cr Clr Drug Dosing Est GFR ( Amer) Est GFR (Non-Af Amer) BUN/Creatinine Ratio Glucose POC Glucose 229 H 118 H Calcium Urine Color Urine Appearance Urine pH Ur Specific [place] Urine Protein Urine Glucose (UA) Urine Ketones Urine Blood Urine Nitrite Urine Bilirubin Urine Urobilinogen Ur Leukocyte Esterase Stool Occult Bld Scrn Negative PG Care Time/CCT Total # of Minutes Spent Total Time Spent with Patient: Total time spent is greater than 50% in coordination of care (as documented) at patient's floor/unit and/or counseling patient: (1) CAD (coronary artery disease) Coronary Disease-Associated Artery/Lesion type: [place] artery [place] vs. tra nsplanted heart: [place] heart Associated angina: without angina Qualified Code(s): I25.10 - Atherosclerotic heart disease of [place] coronary artery without angina pectoris (2) CHF exacerbation Heart failure type: unspecified Qualified Code(s): I50.9 - Heart failure, unspecified
--- NOTE | 2019-03-09 13:10 | Discharge Summary ---
Date of Service March 09, 2019 Admission HPI Per Admitting Provider Mr. Angel Solorio is a 68yo C male with history of CAD s/p [facility] [place], DM, HTN, HLP and CKD presenting with SOB. He reports appx 48 hours of [place], chest congestion and cold sweats. Also with dry cough and orthopnea. He thinks he has gained appx 5 pounds over the last few days. Dry weight stated to be around 277# On arrival to the ER he was found to be afebrile, saturating 87% on room air. He was placed on NC with improvement in symptoms. He denies CP, palpitations, CISSE, dizziness, syncope, abdominal pain, nausea, vomiting, diarrhea, constipation, dysuria/hematuria. Denies wheezing or URI symptoms. He reports compliance with his medications. Has not missed his Lasix or other medications. No additional complaints at this time - no CP, palpitations, dizziness, syncope. ER Course: ASA, Lasix 40mg IV Admission Exam Per Admitting Provider General: patient obese, resting comfortably, NAD, non-toxic in appearance, AA&O x 4 Skin: warm, dry, healing wounds on RLE HEENT: NC/AT, PERRL, EOMI, anicteric sclera, conjunctiva without injection, external ear normal to inspection and nontender, nares patent, moist mucus membranes, dentition intact, no oropharyngeal lesions, neck supple, trachea midline, no LAD, no thyromegaly, no JVD Heart: +S1/S2, regular, no m/r/g Lungs: equal air entry bilaterally, +rales in bilateral lung bases to mid lung field Abd: obese, +BS, soft, NT/ND, no masses/organomegaly/ascites Ext: warm, 2+ pulses in UE/LE bilaterally, 2+ pitting edema of bilateral LE, bandage at right groin from previous cath - no hematoma/bleeding/erythema, AV fistula in RUE with palpable thrill Neuro: nonfocal, patient AA&O x 4, speech intact, no facial droop, moving all extremities on command with equal strength 5/5 Principal Diagnosis Acute exacerbation of Chronic congestive heart failure Discharge Exam Constitutional WD/WN, vitals as above + obese; no acute distress Eyes EOM intact bilaterally; no conjunctival abnormality Neck normal visual inspection and trachea midline Respiratory normal respiratory effort; no respiratory distress and no labored breathing Auscultation: lungs clear to auscultation bilaterally and + diminished lung sounds Cardiovascular Rate/Rhythm: regular rate and regular rhythm Extremities: + pedal edema Gastrointestinal (Abdomen) Percussion/Palpation: abdomen nontender, no guarding and abdomen not rigid Musculoskeletal Head/Neck/Chest: normocephalic and head atraumatic Neurologic moves all extremities and awake; not confused Psychiatric A+Ox3, euthymic affect Discharge Data Allergies Allergy/AdvReac Type Severity Reaction Status Date / Time ragweed pollen Allergy Mild [place] Verified 03/10/19 20:22 Consultations 03/06/19 19:09 ED Decision to Admit Stat 03/06/19 23:05 Consult Health Information Management Routine 03/08/19 08:17 Consult Nephrology Routine Ordered Studies 03/08/19 14:35 US renal/blad retro comp Routine 1. No evidence for hydronephrosis. 2. Moderate cortical thinning with increased cortical echogenicity bilaterally consistent with nonobstructive renal insufficiency. 3. Small left renal cyst. 03/06/19 CXR 1. Moderate pulmonary edema with volume overload and congestive change. Early/developing pulmonary edema is difficult to exclude. 2. Trace bilateral pleural effusions and possible bibasilar atelectasis greater on the left. Hospital Course (1) CHF exacerbation: Angel Solorio is a 68 year old man with a past medical history of CHF, DMII, CKD IV here for CHF exacerbation Acute on chronic CHF exacerbation Increased salt intake likely precipitated this exacerbation [employer] revealed normal LV size and function, EF of 60-65%. Dilated RV with normal function. No Echocardio was ordered this admission. 10 pounds over dry weight, aggressively diuresing with IV lasix, -1,964 mL down since admission and breathing much improved To continue Lasix 80mg BID at home for diuresis. He was given direction to weight himself daily and was given phone number of [facility] Recruiter office to contact if experiencing weight gain. NOMAN CKD IV Up slightly to 4.01 on admission but improved slightly to 3.97 on discharge which is baseline CAD S/P [place] [facility] Currently with no chest pain, negative troponin and normal ECG DMII -Continue Lantus 60u BID -Sugars were ranging from hyperglycemic values with a few low readings at 31. He states he has a history of this and will monitor at home and he checks quite frequently. -To further address as outpatient. HTN Continue home hydralazine, clonidine, amlodipine and carvedilol, currently still slightly hypertensivel; continue to monitor at outpatient follow up. Sleep apnea Will need to encourage patient to be more compliant with CPAP Anemia Normochromic, normocytic anemia Chronic, no symptoms at this time at baseline Possibly from renal failure lack of EPO, recommend outpatient follow up HLD Continuing home atorvastatin Morbid obesity -discussed weight loss. to further address as outpatient. DVT PPx: SCD Dispo: Med/Surg+Tele F/E/N: AHA/low sodium diet Full code (2) Chronic kidney disease, stage 4 (severe): (3) BPH (benign prostatic hyperplasia): (4) Depression: (5) CAD (coronary artery disease): (6) Hypoxia: (7) Sleep apnea: (8) HTN (hypertension): (9) Diabetes mellitus type 2 in obese: (10) Anemia: (11) Hypercholesterolemia: (12) NOMAN (acute kidney injury): Total Time Total Time Spent Total Time Spent (In Minutes): 30 Discharge Plan Discharge Items Patient Disposition: Home - Self-Care Reason For Visit: SOB,HYPOXIA Discharge Diagnosis: Acute exacerbation of Chronic CHF Activity: Resume your previous activity Non-emergency contact: Primary Care Provider and [facility]al Recruiter Call non-emergency contact if: you have any medication questions and your symptoms worsen Follow-up/Referrals: Carroll Brizuela, DO [Primary Care Provider] - Diet: Low Potassium (2gm) and Low Sodium (2gm) Addtl Attending Provider Instructions: You were admitted for an acute exacerbation of your Congestive Heart Failure. This was most likely caused by increase sodium/salt intake. Please watch your sodium/salt intake. It is recommended you do not exceed 2 grams per day. Avoid soup out of the can as this contains a high amount of salt. Do not add table salt to any foods. It is recommended that you weight your self at home. If you notice a weight gain of 3-4 pounds from one day to the next to contact [facility] at . Also, please be aware to return to [facility] if you are experiencing worsening shortness of breath as this could be a sign of fluid building up in your lungs from worsening CHF. Please continue your prior Lasix dose of 80mg twice per day. Also, please be sure to monitor your blood sugars at home. You had some low blood sugar readings here in the hospital. Please make sure you check your blood sugars regularly and act accordingly, if low eat a snack with sufficient carbohydrates to raise your blood sugar. We recommend follow up with your Seasonal Recruiter (Kidney) physician office within the next 1-2 weeks as well as follow up with your Primary Care Physician for appropriate hospital discharge follow up. Pending Studies at Discharge: No Stand-Alone Forms: My [facility] Relevant e-solution, Smoking Cessation Medications and DC Order Prescriptions: Continued furosemide [Lasix] 40 mg Tablet 80 mg PO BID RF: 0 atorvastatin 40 mg Tablet 20 mg PO PM RF: 0 amlodipine 10 mg Tablet 10 mg PO QAM RF: 0 hydralazine 100 mg Tablet 100 mg PO TID RF: 0 Novolog PenFill U-100 Insulin 100 unit/mL Cartridge 10 unit SUBCUT AC RF: 0 clonidine HCl 0.1 mg Tablet 0.1 mg PO BID RF: 0 tamsulosin 0.4 mg Capsule 0.4 mg PO QAM RF: 0 albuterol sulfate 90 mcg/actuation Hfa Aerosol Inhaler 2 puff INHALATION Q6H PRN (Reason: Shortness Of Breath) RF: 0 sertraline 50 mg Tablet 25 mg PO QAM RF: 0 loratadine 10 mg Tablet 10 mg PO DAILY PRN (Reason: Allergy Symptoms) RF: 0 carvedilol [Coreg] 12.5 mg tablet 12.5 mg PO BID RF: 0 clopidogrel [Plavix] 75 mg Tablet 75 mg PO DAILY RF: 0 aspirin [Aspir-81] 81 mg Tablet,Delayed Release (Dr/Ec) 81 mg PO DAILY RF: 0 Lantus Solostar U-100 Insulin 100 unit/mL (3 mL) insulin pen 60 unit SUBCUT BID RF: 0 Discharge Orders: Discharge Order (Routine); Ordered 03/09/19 Ordered By: Mehdi Burgos/Other Patient Handouts: Disease Kidney Potassium, Disease Kidney Redu Potassium Food Admission Data Admit Date/Time: 03/06/19 19:57 Attending Provider: Magali Shields Admit Provider: Luisa Benitez Primary Care Provider: Carroll Brizuela Other Providers: Emmanuel,[place] Other Interventions: Discharge Summary Assessment (RN) Last Done: 03/09/19 16:30 DC Date/Time DO NOT enter until pt leaves facility: 03/09/19 17:55 Supervising Physician Co-Signing Physician Notes Resident Physician Supervision Note: I independently interviewed and examined the patient and verified the roman history and physical, reviewed labs and image studies, discussed the case with the resident Dr. Tomas and agree with the findings and care plan. Resident Activity Tracking Resident Involvement: Resident Care Provided Care Provided: Adult Hospital Medicine
--- NOTE | 2019-03-09 13:56 | Pharmacy Report ---
Glycemic Control Consultation - Date of Service March 09, 2019 - Scope Scope: Glycemic Pharmacist consulted by Dr Tomas on 03/09 for glycemic control and to write orders per [facility] inpatient glycemic control protocol - Objective Weight: 129.9 kg Accuchecks BSG (last 24hrs): 03/08/19 03/08/19 03/08/19 15:48 16:40 16:43 Glucose 58 L POC Glucose 66 L* 70 03/08/19 03/09/19 03/09/19 20:21 00:24 06:26 Glucose 69 L 56 L POC Glucose 250 H 03/09/19 03/09/19 03/09/19 07:45 07:47 08:14 Glucose POC Glucose 34 L* 31 L* 276 H 03/09/19 03/09/19 03/09/19 08:16 08:18 08:32 Glucose POC Glucose 87 229 H 118 H 03/09/19 03/09/19 03/09/19 11:51 11:54 12:13 Glucose 154 H POC Glucose 387 H* 272 H Laboratory Data (last 24hrs): 03/08/19 03/09/19 03/09/19 15:48 00:24 06:26 Potassium 3.8 3.7 3.7 Carbon Dioxide 29 32 31 Anion Gap 8.0 6.0 6.0 Creatinine 4.26 H 4.04 H 3.97 H Est Cr Clr Drug Dosing 23.4 24.7 25.1 - Recent Pertinent Medications Outpatient Anti-diabetic Regimen: * Lantus 60 units BID * Novolog 10 units with meals * A1c = 7.2 % 01/06/19 The patient is currently receiving: * Basal insulin: Lantus 60 units every 12 hours * Correctional Insulin: Novolog Correction per scale ACHS Goal Range: Low 100 mg/dL - High 140 mg/dL Correction Factor: 18 mg/dL/unit * Prandial insulin: Per carb ratio of 1 unit per 7 grams CHO consumed Risk Factors for Insulin Resistance: * Diet: T2DM - Assessment & Plan Assessment & Plan: ASSESSMENT: * 68 y/o male admitted for CHF exacerbation. He was continued on his outpatient dose of basal insulin, which makes up a large amount of his total daily dose. He has had multiple episodes of hypoglycemia, with the most recent being a fasting BSG of 34 mg/dL this AM. Pharmacy was consulted to manage glycemic control d/t hypoglycemia. * Will plan to split Lantus + Novolog more evenly, based on est TDD ~120-130 units * Of note, RN called d/t discrepancy with POC BSG at lunch. One result in the 200s and one in the 300s. I had her confirm with lab draw, which was 154 mg/dL. Will need to monitor closely for further discrepancies with POC. Values from this AM and yesterday seemed appropriate when correlated w/ lab draw. PLAN FOR INPATIENT GLYCEMIC CONTROL: * Basal insulin - decrease * Lantus 60 units today at dinner (AM dose was held) * Lantus BID starting 03/10 AM: * 25 units for BSG < 150 * 30 units for BSG 150 or above * Bolus insulin - adjust slightly; will need to tighten to CF 15, CR 4 once hypoglycemia resolves * NovoLog per scale ACHS or Q6hrs while NPO * Goal Range: Low 110 mg/dL - High 150 mg/dL * Correction Factor: 20 mg/dL/unit * Nutritional / Prandial insulin per carb ratio of 1 unit per 7 grams CHO consumed Discharge Recommendations: * A1c is near goal of 7% for age/comorbidities * Recommend to continue outpatient regimen on discharge; however, would strongly recommend to split more evenly to prevent hypoglycemia from too high of basal doses when po intake is reduced. Could consider Lantus 40 units BID + Novolog 25 units with each meal. Thank you.
[2019-03-09 16:32] LABS: BUN Creatinine Ratio 21.2 (10-20); Calcium 8.3 mg/dl (8.5-10.1); Creatinine Clr Calc Pharmacy 23.9 ml/min; Est GFR (African American) 16.1; Est GFR (Non-African American) 13.9; Potassium 3.8 mmol/L (3.5-5.1)
[2019-03-09] MEDS ORDERED: INSULIN GLARGINE 100 UNIT/ML VIAL SQ SCH (17:00)
[2019-03-10] MEDS ORDERED: INSULIN GLARGINE 100 UNIT/ML VIAL SQ SCH (09:00)
--- NOTE | 2019-03-12 08:58 | Coding Query ---
CODING QUERY To promote full compliance with coding requirements relating to patient care, provider participation is requested in all cases of event marketing intern uncertainty. Please assist us with the question(s) below: Coding Question: Please clarify the patient's Acute on Chronic CHF below if known. Thanks so much for your help! ( x) Acute on Chronic Diastolic CHF ( ) Acute on Chronic Systolic CHF ( ) Acute on Chronic CHF, unspecified ( ) Other, explain Thank you! Evelin Taveras Principal Diagnosis: "that condition established after study, to be chiefly responsible for occasioning the admission of the patient to the hospital for care." Co-Existing Principal Diagnosis: "when two or more diagnoses equally meet the criteria for principal diagnosis as determined by the circumstances of admission, diagnostic work up, and/or therapy provided, and the Alphabetic Index, Tabular List, or another coding guideline does not provide sequencing direction, any one of the diagnoses may be sequenced first." "When the physician has documented what appears to be a current diagnosis in the body of the record, but has not included the diagnosis in the final diagnostic statement, the physician should be asked whether the diagnosis should be added." (Source Coding [facility] 2 QTR90. p3-4) SELINA
== END 2019-03-09 17:55 | disposition home or self-care (01) | DRG 291 ==
LOC: ED 17:26 → 2W 19:57 → SUATTDRO 19:57 → 2W 20:58

== ENCOUNTER 2019-03-10 18:54 | Observation (INO) ==
--- NOTE | 2019-03-10 19:17 | Emergency Department Note ---
Entered by Cipriano Davila acting as a scribe for Chuck Griffiths DO History of Present Illness General Chief complaint: Shortness of Breath/Dyspnea Stated complaint: SOB Source: patient and EMS Limitations: no limitations History of Present Illness Onset (ago): day(s) 2 Location: chest Pain Consistency: + constant Quality: + constant Exacerbated By: + other (laying flat) Treatments prior to arrival: other (Duoneb, Nitro, Bi-PAP) The patient is a 68 year old male who presents to the Emergency Room with complaints of constant SOB starting 2 days ago. The patient states he is not in any pain. he states he has been home for the past few days. He states the SOB is worse when he lays flat. He notes he has CHF. EMS reports the patient received Duoneb and 2 Nitro. EMS states the patient received Bi-PAP on the way to the ED. EMS states the patient's stats were 55 on scene. EMS states the patient's blood sugar was 192. Home Medications Home Medications Medication Instructions Recorded Confirmed Type Novolog PenFill U-100 Insulin 10 unit SUBCUT AC 01/06/19 03/10/19 History albuterol sulfate 2 puff INHALATION Q6H PRN 01/06/19 03/10/19 History amlodipine 10 mg PO QAM 01/06/19 03/10/19 History atorvastatin 20 mg PO PM 01/06/19 03/10/19 History clonidine HCl 0.1 mg PO BID 01/06/19 03/10/19 History furosemide [Lasix] 80 mg PO BID 01/06/19 03/10/19 History hydralazine 100 mg PO TID 01/06/19 03/10/19 History loratadine 10 mg PO DAILY PRN 01/06/19 03/10/19 History sertraline 25 mg PO QAM 01/06/19 03/10/19 History tamsulosin 0.4 mg PO QAM 01/06/19 03/10/19 History Lantus Solostar U-100 Insulin 60 unit SUBCUT BID 03/06/19 03/10/19 History aspirin [Aspir-81] 81 mg PO DAILY 03/06/19 03/10/19 History carvedilol [Coreg] 12.5 mg PO BID 03/06/19 03/10/19 History clopidogrel [Plavix] 75 mg PO DAILY 03/06/19 03/10/19 History Allergies Allergy/AdvReac Type Severity Reaction Status Date / Time ragweed pollen Allergy Mild [place]GE[place] Verified 03/10/19 20:22 Past Med/Surg History Medical History Sleep apnea (Chronic) does not use CPAP HTN (hypertension) (Chronic) Anemia CAD (coronary artery disease) s/p stent 2018 CKD (chronic kidney disease) Stage 4 Diabetes Dyslipidemia Surgical History AV fistula Family History Other Hypertension Social History Preferred Language: Bengali Communication Ability: Effective Pvc Loader Required: No Beliefs That Will Affect Care: None marital status: Current Living Situation: Alone Feels Safe at Home: Yes Smoking Status: Current some day smoker Tobacco Type: cigars ; Cigarettes Per Day: one cigar every so often, less than one a month usually ; Second Hand Exposure: No ; Hx Alcohol Use: Yes Alcohol type: beer Hx Substance Use: No Review of Systems See HPI for pertinent positives & negatives. and A total of 10 systems reviewed and were otherwise negative Physical Exam Vital Signs Vital Signs - 24 hr 03/10/19 19:02 03/10/19 19:05 03/10/19 19:06 Temperature 37.1 C Temperature Source Axillary Sepsis Recent Fever Within 48 Hours No Sepsis New/Unexplained Change in Mental Status No Sepsis Action Taken by Nursing No Action Required Pulse Rate 74 69 Pulse Rate from SpO2 Sensor Respiratory Rate 22 20 Respiratory Effort / Characteristics Labored Short of Breath Non-Labored Spontaneous Respiratory Depth Normal Respiratory Pattern Regular Blood Pressure 147/62 H Blood Pressure Mean 90 Pulse Oximetry 90 94 Oxygen Delivery Method CPAP CPAP Fraction of Inspired Oxygen 40 03/10/19 19:15 03/10/19 19:30 03/10/19 19:45 Temperature Temperature Source Sepsis Recent Fever Within 48 Hours Sepsis New/Unexplained Change in Mental Status Sepsis Action Taken by Nursing Pulse Rate 65 Pulse Rate from SpO2 Sensor 66 Respiratory Rate 17 Respiratory Effort / Characteristics Respiratory Depth Respiratory Pattern Blood Pressure 163/68 H 154/67 H 158/69 H Blood Pressure Mean 99 96 98 Pulse Oximetry 95 95 95 Oxygen Delivery Method Fraction of Inspired Oxygen 03/10/19 20:00 03/10/19 20:15 03/10/19 20:18 Temperature Temperature Source Sepsis Recent Fever Within 48 Hours Sepsis New/Unexplained Change in Mental Status Sepsis Action Taken by Nursing Pulse Rate 67 64 64 Pulse Rate from SpO2 Sensor 68 Respiratory Rate 21 22 22 Respiratory Effort / Characteristics Non-Labored Spontaneous Respiratory Depth Normal Respiratory Pattern Regular Blood Pressure 151/77 H 167/64 H Blood Pressure Mean 101 98 Pulse Oximetry 94 90 97 Oxygen Delivery Method Fraction of Inspired Oxygen 40 03/10/19 20:30 03/10/19 21:00 03/10/19 21:15 Temperature Temperature Source Sepsis Recent Fever Within 48 Hours Sepsis New/Unexplained Change in Mental Status Sepsis Action Taken by Nursing Pulse Rate 66 64 62 Pulse Rate from SpO2 Sensor Respiratory Rate 21 19 21 Respiratory Effort / Characteristics Respiratory Depth Respiratory Pattern Blood Pressure 165/70 H 176/76 H 170/68 H Blood Pressure Mean 101 109 102 Pulse Oximetry 94 95 94 Oxygen Delivery Method Fraction of Inspired Oxygen GENERAL: The patient is awake and alert. He is somewhat anxious appearing and appears to be having significant difficulty breathing. EYES: The conjunctivae are clear. The pupils are round and reactive. EARS, NOSE, MOUTH AND THROAT: The nose is without any evidence of any deformity. Mucous membranes are moist tongue is midline NECK: The neck is nontender and supple. RESPIRATORY: Shallow respirations were noted. There were rales noted throughout. Significant conversational dyspnea was appreciated. CARDIOVASCULAR: Regular rate and rhythm noted there no murmurs rubs or gallops normal S1 normal S2 GASTROINTESTINAL: The abdomen is soft. Bowel sounds are present in all quadrants. Abdomen is nontender. There is a ventral hernia noted. This is not incarcerated. MUSCULOSKELETAL/EXTREMITIES: There is no evidence of gross deformity full range of motion is noted in the hips and shoulders SKIN: Pedal edema was noted bilaterally. Significant venous stasis changes are noted. NEUROLOGIC: Patient is awake alert and oriented x3. Course 1856: The patient was evaluated in room A11B, and a complete history and physical examination were performed. 2024: I reevaluated the patient. I updated the patient on his labs and imaging results. 2030: I discussed the patient's [facility] She will evaluate the patient for further management Administered Medications Amlodipine Besylate (Norvasc) 10 mg PO QAM [facility] Stop: 04/10/19 08:59 Last Admin: 03/11/19 08:32 Dose: 10 mg Documented by: [id number] Aspirin (Ecotrin Ectab) 81 mg PO DAILY ANTONY Stop: 04/10/19 08:59 Last Admin: 03/11/19 08:34 Dose: 81 mg Documented by: [id number] Carvedilol (Coreg) 12.5 mg PO BID ANTONY Stop: 04/09/19 21:48 Last Admin: 03/11/19 08:31 Dose: 12.5 mg Documented by: [id number] Admin: 03/10/19 22:31 Dose: 12.5 mg Documented by: [id number] Clonidine HCl (Catapres) 0.1 mg PO BID ANTONY Stop: 04/09/19 21:48 Last Admin: 03/11/19 08:33 Dose: 0.1 mg Documented by: [id number] Admin: 03/10/19 22:31 Dose: 0.1 mg Documented by: [id number] Clopidogrel Bisulfate (Plavix) 75 mg PO DAILY ANTONY Stop: 04/10/19 08:59 Last Admin: 03/11/19 08:33 Dose: 75 mg Documented by: [id number] Furosemide (Lasix) 80 mg PO BID ANTONY Stop: 04/09/19 21:48 Last Admin: 03/11/19 08:31 Dose: 80 mg Documented by: [id number] Admin: 03/10/19 22:31 Dose: 80 mg Documented by: [id number] Heparin Sodium (Porcine) (Heparin Sodium (Porcine)) 5,000 units SQ Q8 ANTONY Stop: 04/09/19 21:59 Last Admin: 03/11/19 13:04 Dose: 5,000 units Documented by: [id number] Cosigned by: [id number] Admin: 03/11/19 05:52 Dose: 5,000 units Documented by: [id number] Cosigned by: [id number] Admin: 03/10/19 22:32 Dose: 5,000 units Documented by: [id number] Cosigned by: [id number] Hydralazine HCl (Apresoline) 100 mg PO TID ANTONY Stop: 04/10/19 08:59 Last Admin: 03/11/19 13:04 Dose: 100 mg Documented by: [id number] Admin: 03/11/19 08:32 Dose: 100 mg Documented by: [id number] Insulin Aspart (Novolog Flexpen) 0 units SC ACHS ANTONY Stop: 04/09/19 21:59 Last Admin: 03/11/19 17:26 Dose: 12 units Documented by: [id number] Cosigned by: [id number] Admin: 03/11/19 13:06 Dose: 11 units Documented by: [id number] Cosigned by: [id number] Admin: 03/11/19 08:37 Dose: 3 units Documented by: [id number] Cosigned by: [id number] Admin: 03/10/19 22:43 Dose: 3 units Documented by: [id number] Cosigned by: [id number] [facility] [place]: 04/10/19 08:59 Last Admin: 03/11/19 08:31 Dose: 25 mg Documented by: [id number] Tamsulosin HCl (Flomax) [facility] Stop: 04/10/19 08:59 Last Admin: 03/11/19 08:31 Dose: 0.4 mg Documented by: [id number] Discontinued Medications Furosemide (Lasix) 40 mg IV ONE ONE Stop: 03/10/19 20:46 Last Admin: 03/10/19 20:36 Dose: 40 mg Documented by: [id number] Insulin Glargine (Lantus) 50 units SC BID [facility] Stop: 04/09/19 21:59 Last Admin: 03/11/19 08:35 Dose: 50 units Documented by: [id number] Cosigned by: [id number] Admin: 03/10/19 22:35 Dose: 50 units Documented by: [id number] Cosigned by: [id number] Medical Decision Making Differential Diagnosis Differential diagnoses includes but is not limited to pneumonia, bronchitis, COPD/Asthma exacerbation, pneumothorax, pulmonary embolism, congestive heart failure, acute coronary syndrome Medical Records Attestation: I reviewed the patient's medical records. Home Medications Current Medication List: was personally reviewed by me Laboratory Data Attestation: I reviewed the patient's lab results. Result diagrams: 03/11/19 05:54 03/11/19 05:54 Lab Results 03/10/19 03/10/19 03/10/19 Range/Units 19:15 19:15 19:15 WBC 12.68 H (4.8-10.8) K/uL RBC 3.68 L (4.7-6.1) M/uL Hgb 9.7 L (14.0-18.0) g/dL Hct 32.5 L (42-52) % MCV 88.3 (80-100) fL MCH 26.4 (25-34) pg MCHC 29.8 L (32-36) g/dL RDW Std Deviation 51.2 H (36.4-46.3) fL RDW Coeff of Atif 15.8 H (11.5-14.5) % Plt Count 307 (130-400) K/uL MPV 10.3 (7.4-10.4) fL Immature Gran % (Auto) 0.6 % Neut % (Auto) 82.2 % Lymph % (Auto) 5.4 % Towns % (Auto) 9.5 % Eos % (Auto) 2.1 % Baso % (Auto) 0.2 % Immature Gran # (Auto) 0.07 H (0.00-0.02) K/uL Neut # (Auto) 10.43 H (1.4-6.5) K/uL Lymph # (Auto) 0.68 L (1.2-3.4) K/uL Towns # (Auto) 1.20 H (0.11-0.59) K/uL Eos # (Auto) 0.27 (0-0.5) K/uL Baso # (Auto) 0.03 (0-0.2) K/uL PT 11.1 (9.0-12.0) Seconds INR 1.1 (0.9-1.1) APTT 28.5 (21.0-31.0) Seconds PTT Ratio 1.1 VBG pH (7.36-7.41) VBG pCO2 (38-50) mmHg VBG pO2 mmHg VBG HCO3 mmol/L VBG O2 Saturation % VBG Base Excess mEq/L Barometric Pressure mm/Hg Sodium 140 (136-145) mmol/L Potassium 4.1 (3.5-5.1) mmol/L Chloride 103 (98-107) mmol/L Carbon Dioxide 30 (21-32) mmol/L Anion Gap 7.0 (3-11) BUN 91 H (7-18) mg/dl Creatinine 4.02 H (0.6-1.4) mg/dl Est Cr Clr Drug Dosing 25.7 ml/min Est GFR ( Amer) 16.8 Est GFR (Non-Af Amer) 14.5 BUN/Creatinine Ratio 22.7 H (10-20) Glucose 194 H (70-99) mg/dl Calcium 7.9 L (8.5-10.1) mg/dl Phosphorus 4.9 (2.5-4.9) mg/dl Magnesium 2.7 H (1.8-2.4) mg/dl Total Bilirubin 0.4 (0.2-1) mg/dl AST 17 (15-37) U/L ALT 27 (12-78) U/L Alkaline Phosphatase 61 (45-117) U/L Troponin I < 0.015 (0-0.045) ng/ml NT-Pro-B Natriuret Pep 2435 H (0-900) pg/ml Total Protein 7.3 (6.4-8.2) gm/dl Albumin 2.8 L (3.4-5.0) gm/dl Globulin 4.5 H (2.5-4.0) gm/dl Albumin/Globulin Ratio 0.6 L (0.9-2) Urine Color Urine Appearance (Clear) Urine pH (4.5-7.5) Ur Specific [place] (1.000-1.030) Urine Protein (Negative) Urine Glucose (UA) (Negative) Urine Ketones (Negative) Urine Blood (Negative) Urine Nitrite (Negative) Urine Bilirubin (Negative) Urine Urobilinogen (Negative) Ur Leukocyte Esterase (Negative) Urine WBC (Auto) (0-5) /hpf Urine RBC (Auto) (0-4) /hpf U Hyaline Cast (Auto) (0-5) /lpf U Epithel Cells (Auto) (0-5) /lpf Urine Bacteria (Auto) (Negative) 03/10/19 03/10/19 Range/Units 19:15 20:40 WBC (4.8-10.8) K/uL RBC (4.7-6.1) M/uL Hgb (14.0-18.0) g/dL Hct (42-52) % MCV (80-100) fL MCH (25-34) pg MCHC (32-36) g/dL RDW Std Deviation (36.4-46.3) fL RDW Coeff of Atif (11.5-14.5) % Plt Count (130-400) K/uL MPV (7.4-10.4) fL Immature Gran % (Auto) % Neut % (Auto) % Lymph % (Auto) % Towns % (Auto) % Eos % (Auto) % Baso % (Auto) % Immature Gran # (Auto) (0.00-0.02) K/uL Neut # (Auto) (1.4-6.5) K/uL Lymph # (Auto) (1.2-3.4) K/uL Towns # (Auto) (0.11-0.59) K/uL Eos # (Auto) (0-0.5) K/uL Baso # (Auto) (0-0.2) K/uL PT (9.0-12.0) Seconds INR (0.9-1.1) APTT (21.0-31.0) Seconds PTT Ratio VBG pH 7.37 (7.36-7.41) VBG pCO2 52 H (38-50) mmHg VBG pO2 52 mmHg VBG HCO3 30 mmol/L VBG O2 Saturation 85.0 % VBG Base Excess 3.5 mEq/L Barometric Pressure 731.6 mm/Hg Sodium (136-145) mmol/L Potassium (3.5-5.1) mmol/L Chloride (98-107) mmol/L Carbon Dioxide (21-32) mmol/L Anion Gap (3-11) BUN (7-18) mg/dl Creatinine (0.6-1.4) mg/dl Est Cr Clr Drug Dosing ml/min Est GFR ( Amer) Est GFR (Non-Af Amer) BUN/Creatinine Ratio (10-20) Glucose (70-99) mg/dl Calcium (8.5-10.1) mg/dl Phosphorus (2.5-4.9) mg/dl Magnesium (1.8-2.4) mg/dl Total Bilirubin (0.2-1) mg/dl AST (15-37) U/L ALT (12-78) U/L Alkaline Phosphatase (45-117) U/L Troponin I (0-0.045) ng/ml NT-Pro-B Natriuret Pep (0-900) pg/ml Total Protein (6.4-8.2) gm/dl Albumin (3.4-5.0) gm/dl Globulin (2.5-4.0) gm/dl Albumin/Globulin Ratio (0.9-2) Urine Color Yellow Urine Appearance Clear (Clear) Urine pH 5.0 (4.5-7.5) Ur Specific [place] 1.019 (1.000-1.030) Urine Protein Trace H (Negative) Urine Glucose (UA) Negative (Negative) Urine Ketones Negative (Negative) Urine Blood Negative (Negative) Urine Nitrite Negative (Negative) Urine Bilirubin Negative (Negative) Urine Urobilinogen Negative (Negative) Ur Leukocyte Esterase Negative (Negative) Urine WBC (Auto) 0 (0-5) /hpf Urine RBC (Auto) 0-4 (0-4) /hpf U Hyaline Cast (Auto) 1-5 (0-5) /lpf U Epithel Cells (Auto) 0-5 (0-5) /lpf Urine Bacteria (Auto) Negative (Negative) Imaging Data Radiologist's Impression: Radiology results as stated below per my review and the radiologist's interpretation: XR chest 1V portable CLINICAL HISTORY: Dyspnea dyspnea COMPARISON STUDY: 03/06/2019 FINDINGS: Mild cardiomegaly. Prominent pulmonary vasculature as well as parenchymal markings throughout both hemithoraces. This is essentially unchanged in the prior study. IMPRESSION: Pulmonary edema versus congestive heart failure The above report was generated using voice recognition software. It may contain grammatical, syntax or spelling errors. Electronically signed by: Eliceo Mccain M.D. 03/10/2019 7:37 PM ECG Data Attestation: I personally reviewed and interpreted this ECG as follows: Indication: SOB/dyspnea Rate (beats per minute): 73 Findings: no ST depression, no ST elevation and no ectopy Comparison ECG Date: from (02/14/19) Change: no significant change Blood Pressure Blood Pressure Findings: Elevated blood pressure Blood Pressure Disposition: further management by hospitalist [facility] Narrative The patient is a 68-year-old male who presented to the emergency department for an evaluation of shortness of breath. The patient had very severe shortness of breath and was placed on CPAP prior to arrival. The patient received nitroglycerin spray prior to arrival by the software engineer sales. Upon arrival patient did appear significantly improved but still had very severe respiratory distress. The patient had significant hypoxia prior to arrival. He was treated with IV Lasix in the emergency department. I discussed patient's laboratory and radiographic studies with him. He appears to be suffering from acute pulmonary edema which given the patient's history would be most likely. I discussed the patient's condition with the on-call [facility] hospitalist. They have agreed to evaluate patient in the emergency department for further management and disposition. Unfortunately the patient has been admitted for this previous times in the past it appears that his pulmonary edema and CHF is very severe at times. The patient was reevaluated multiple times. Impression & Plan Pulmonary embolism, Hypoxia, SOB (shortness of breath) Discharge Plan Visit Data *Final* Discharge Date/Time: 03/10/19 21:33 Chief Complaint: Shortness of Breath/Dyspnea Stated Complaint: SOB ED Provider: Chuck Griffiths Discharge Problem: Pulmonary embolism, Hypoxia, SOB (shortness of breath) Patient Disposition: Admitted As Inpatient Discharge Instructions Interventions: ED Discharge Assessment Last Done: 03/10/19 21:33 The scribe's documentation has been prepared under my direction and personally reviewed by me in its entirety. I confirm that the note above accurately reflects all work, treatment, procedures, and medical decision making performed by me.
[2019-03-10 19:30] LABS: Basophils # (auto) 0.03 K/uL (0-0.2); Basophils % (auto) 0.2 %; Eosinophils # (auto) 0.27 K/uL (0-0.5); Eosinophils % (auto) 2.1 %; Hematocrit (blood only) 32.5 % (42-52); Hemoglobin 9.7 g/dL (14.0-18.0); Immature Granulocytes # (auto) 0.07 K/uL (0.00-0.02); Immature Granulocytes % (auto) 0.6 %; Lymphocytes # (auto) 0.68 K/uL (1.2-3.4); Lymphocytes % (auto) 5.4 %; Mean Corpuscular Hemoglobin 26.4 pg (25-34); Mean Corpuscular Hgb Conc 29.8 g/dL (32-36); Mean Corpuscular Volume 88.3 fL (80-100); Mean Platelet Volume 10.3 fL (7.4-10.4); Monocytes % (auto) 9.5 %; Neutrophils # (auto) 10.43 K/uL (1.4-6.5); Neutrophils % (auto) 82.2 %; Platelet Count 307 K/uL (130-400); RDW Coefficient of Variation 15.8 % (11.5-14.5); RDW Standard Deviation 51.2 fL (36.4-46.3); Red Blood Count 3.68 M/uL (4.7-6.1); White Blood Count 12.68 K/uL (4.8-10.8)
[2019-03-10 19:36] LABS: Base Excess VBG 3.5 mEq/L; pH VBG 7.37 (7.36-7.41)
--- NOTE | 2019-03-10 19:38 | XRay Report ---
XR chest 1V portable CLINICAL HISTORY: Dyspnea dyspnea COMPARISON STUDY: 03/06/2019 FINDINGS: Mild cardiomegaly. Prominent pulmonary vasculature as well as parenchymal markings througho ut both hemithoraces. This is essentially unchanged in the prior study. IMPRESSION: Pulmonary edema versus congestive heart failure The above report was generated using voice recognition software. It may contain grammatical, syntax or spelling errors. Electronically signed by: Eliceo Mccain M.D. 03/10/2019 7:37 PM
[2019-03-10 19:41] LABS: INR 1.1 (0.9-1.1); Partial Thromboplastin Ratio 1.1; Partial Thromboplastin Time 28.5 Seconds (21.0-31.0); Prothrombin Time 11.1 Seconds (9.0-12.0)
[2019-03-10 19:49] LABS: Alanine Aminotransferase 27 U/L (12-78); Albumin Level 2.8 gm/dl (3.4-5.0); Aspartate Aminotransferase 17 U/L (15-37); BUN Creatinine Ratio 22.7 (10-20); Blood Urea Nitrogen 91 mg/dl (7-18); Calcium 7.9 mg/dl (8.5-10.1); Carbon Dioxide 30 mmol/L (21-32); Chloride 103 mmol/L (98-107); Creatinine Clr Calc Pharmacy 25.7 ml/min; Est GFR (African American) 16.8; Est GFR (Non-African American) 14.5; Glucose 194 mg/dl (70-99); Magnesium 2.7 mg/dl (1.8-2.4); Potassium 4.1 mmol/L (3.5-5.1); Sodium 140 mmol/L (136-145)
[2019-03-10 19:54] LABS: Albumin Globulin Ratio 0.6 (0.9-2); Alkaline Phosphatase 61 U/L (45-117); Bilirubin,Total 0.4 mg/dl (0.2-1); Globulin 4.5 gm/dl (2.5-4.0); Total Protein 7.3 gm/dl (6.4-8.2); Troponin I < 0.015 ng/ml (0-0.045)
[2019-03-10] MEDS ORDERED: FUROSEMIDE 40 MG in SYRINGE 0 ML IV ONE (20:23)
[2019-03-10] MEDS ORDERED: FUROSEMIDE 40 MG/4 ML VIAL IV ONE (20:45)
[2019-03-10 21:11] LABS: Appearance Urine Clear (Clear); Bacteria Urine Automated Negative (Negative); Bilirubin Urine Negative (Negative); Blood Urine Negative (Negative); Color Urine Yellow; Epithelial Cell Urine Auto 0-5 /lpf (0-5); Glucose Urine UA Negative (Negative); Ketones Urine Negative (Negative); Leukocyte Esterase Urine Negative (Negative); Nitrite Urine Negative (Negative); Protein Urine Trace (Negative); RBC Urine Automated 0-4 /hpf (0-4); Specific Gravity Urine 1.019 (1.000-1.030); Urobilinogen Urine Negative (Negative); WBC Urine Automated 0 /hpf (0-5)
--- NOTE | 2019-03-10 21:44 | History & Physical Report ---
Date of Service March 10, 2019 Assessment & Plan (1) Hypoxia: (1) Hypoxia: Improved with supplemental O2, brief use of BiPAP-low settings, now liberated. No respiratory distress at present. Speaking in complete sentences. Uncertain etiology of patient's recurrent hypoxia and shortness of breath. He reports compliance with his medications. Chest x-ray seemingly similar to prior. Overall lungs sound quite clear. Echocardiogram 01/06/2019 with preserved EF, no LVH, no significant diastolic dysfunction. ?Flash pulmonary edema with blood pressure variation. Patient's exam is not consistent with COPD and patient has no diagnosis of such. He is quite concerned about his past Perlite exposure and believes that this is the cause of his shortness of breath. -Continue supplemental O2, goal sat > 94%. Now on nasal cannula -Pulmonology consultation appreciated -Patient may benefit from outpatient PFTs, CT chest Present on Admission?: Yes (2) CHF exacerbation: Patient had an echocardiogram performed on 01/06/19 which revealed normal LV size and function, EF of 60-65%. Dilated RV with normal function. He had another echocardiogram performed [facility] at the [facility] of his catheterization and stent last month. Patient does not appear to be clinically volume overloaded at this time. Has edema on CXR. He reports his dry weight being somewhere around 277#. His discharge weight on 03/09 was 129.9 kg. His weight in the ER today is 138.3 kg. (Not on same scale) -[facility], echo report -Lasix 80mg PO BID -Daily weights, strict I/Os -BMP - closely monitor renal function -Continue Carvedilol 12.5mg po BID, Hydralazine 100mg po TID. No SUZANNE/ARB secondary to declining renal function Present on Admission?: Yes (3) Diabetes mellitus type 2 in obese: Blood sugar presently 179 -Continue Lantus. Will decrease to 50 units twice daily while inpatient as patient had some low a.m. sugars during his last hospital stay -ISS -Will hold prandial Novolog for now. If he requires a lot of sliding scale co verage would resume Novolog as well -CC diet as tolerated Present on Admission?: Yes (4) Anemia: Normochromic, normocytic anemia. Hgb=9.9, Hct=32.9. Down from prior values of 11.9 and 37.1, respectively in December 2018. No active bleeding. ?AOCD in setting of poor renal function. Will defer further workup for now -Continue to monitor Present on Admission?: Yes (5) Chronic kidney disease, stage 4 (severe): BUN=76, Cr=4.01 which is slightly higher than his baseline. He has had an AV fistula placed in his RUE but has not yet had dialysis. He reports adequate urine output with use of Lasix -BMP to monitor for renal decline and electrolytes -Avoid nephrotoxic agents -Renal dosing where needed Present on Admission?: Yes (6) Hypercholesterolemia: Chronic -Continue Atorvastatin Present on Admission?: Yes (7) Sleep apnea: Patient does not use CPAP at home. Discussed that noncompliance with CPAP is a stress on both heart and lungs and may be contributing to his frequent episodes of shortness of breath. -Encourage compliance Present on Admission?: Yes (8) HTN (hypertension): Blood pressure mildly elevated -Continue Amlodipine -Continue Carvedilol -Continue Hydralazine -Continue Clonidine -Monitor Present on Admission?: Yes (9) CAD (coronary artery disease): Patient reports having a cardiac catheterization at the [facility] in [place] last month with stent placement. Denies CP. -Continue ASA, Plavix, Atorvastatin, Carvedilol Present on Admission?: Yes (10) Depression: Chronic -Continue Sertraline Present on Admission?: Yes (11) BPH (benign prostatic hyperplasia): Chronic. Stable -Continue Flomax F/E/N - continue home Lasix 80 mg p.o. twice daily, monitor BMP and Mg q 12 hours, CC/AHA/Low Na diet as tolerated Ppx -heparin Code - Full Dispo - Admit to medical floor with telemetry Present on Admission?: Yes (2) SOB (shortness of breath): (3) CAD (coronary artery disease): (4) Diabetes mellitus type 2 in obese: (5) Chronic kidney disease, stage 4 (severe): (6) Hypercholesterolemia: (7) Sleep apnea: (8) Depression: (9) BPH (benign prostatic hyperplasia): History of Present Illness Chief Complaint: Shortness of breath Primary Care Provider: NO PCP Angel Solorio is a 68-year-old male with history of CAD status post recent stent placement in January 2019 at the [facility] [place], diabetes, hypertension, hyperlipidemia and CKD (fistula placed in right upper extremity in preparation for HD) presenting with shortness of breath. Patient was recently admitted from for the same, shortness of breath/volume overload/pulmonary edema. During the hospital stay he was diuresed with IV Lasix to near dry weight and discharged home in stable condition yesterday. He reports that he felt okay yesterday. He slept through the night without difficulty. This afternoon he had acute onset of cough, shortness of breath and dyspnea on exertion as well as lightheadedness and sweating. EMS was calledpatient found to be 60% on room air. He was brought to [facility] ER. Upon arrival patient found to be afebrile, slightly hypertensive, tachypneic. He was placed on BiPAP 10/5, 30% FiO2 and administered 40 mg of Lasix IV. Patient reports that his symptoms have markedly improved. He denies chest pain, palpitations, fevers/chills, nausea/vomiting/diarrhea/constipation. No addit ional complaints at this time. 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 He states that he inhaled quite a bit of dust. He feels that this exposure is the root cause of his shortness of breath as well as other physical complaints. He states that he can still taste to the dust in his mouth occasionally and that his nose becomes stuffy frequently due to presence of the dust. He has never been diagnosed with any primary pulmonary conditions such as COPD or pneumoconiosis. To his knowledge he has never seen a network contractor nor had PFTs in the past. He does report fairly frequent SOB/ALTAMIRANO and occasional wheezing. Presently does not use any home inhalers. He does carry a diagnosis of sleep apnea but does not use home CPAP. ER course: Nitro in route, Lasix 40 mg IV x1, BiPAP 10/5, 30% Allergies Allergy/AdvReac Type Severity Reaction Status Date / Time ragweed pollen Allergy Mild CONGE[place]ON Verified 03/10/19 20:22 Home Medications Home Medications Medication Instructions Recorded Confirmed Type Novolog PenFill U-100 Insulin 10 unit SUBCUT AC 01/06/19 03/10/19 History albuterol sulfate 2 puff INHALATION Q6H PRN 01/06/19 03/10/19 History amlodipine 10 mg PO QAM 01/06/19 03/10/19 History atorvastatin 20 mg PO PM 01/06/19 03/10/19 History clonidine HCl 0.1 mg PO BID 01/06/19 03/10/19 History furosemide [Lasix] 80 mg PO BID 01/06/19 03/10/19 History hydralazine 100 mg PO TID 01/06/19 03/10/19 History loratadine 10 mg PO DAILY PRN 01/06/19 03/10/19 History sertraline 25 mg PO QAM 01/06/19 03/10/19 History tamsulosin 0.4 mg PO QAM 01/06/19 03/10/19 History Lantus Solostar U-100 Insulin 60 unit SUBCUT BID 03/06/19 03/10/19 History aspirin [Aspir-81] 81 mg PO DAILY 03/06/19 03/10/19 History carvedilol [Coreg] 12.5 mg PO BID 03/06/19 03/10/19 History clopidogrel [Plavix] 75 mg PO DAILY 03/06/19 03/10/19 History Past Med/Surg History Medical History Sleep apnea (Chronic) does not use CPAP HTN (hypertension) (Chronic) Anemia CAD (coronary artery disease) s/p stent 2018 CKD (chronic kidney disease) Stage 4 Diabetes Dyslipidemia Surgical History AV fistula Family History Other Hypertension Social History Preferred Language: Guatemalan Communication Ability: Effective Boring Inspector Required: No Beliefs That Will Affect Care: None marital status: Current Living Situation: Alone Feels Safe at Home: Yes Smoking Status: Current every day smoker Tobacco Type: cigars ; Cigarettes Per Day: one cigar every so often, less than one a month usually ; Second Hand Exposure: No ; Hx Alcohol Use: Yes Alcohol type: beer Hx Substance Use: No Review of Systems Review of Systems: All systems reviewed & are unremarkable except as noted in HPI & below + Stuffy nose Physical Exam Physical Exam: General: patient obese, sitting at edge of bed with BiPAP in place, NAD, non-toxic in appearance, AA&O x 4 Skin: warm, dry, healing wounds on RLE HEENT: NC/AT, PERRL, EOMI, anicteric sclera, conjunctiva without injection, external ear normal to inspection and nontender, nares patent, moist mucus membranes, dentition intact, no oropharyngeal lesions, neck supple, trachea midline, no LAD, no thyromegaly, no JVD Heart: +S1/S2, regular, 2 out of 6 systolic ejection murmur at right second intercostal space Lungs: equal air entry bilaterally, mildly diminished in bases, no rales/rhonchi/wheezing, speaking in complete sentences with no evidence of respiratory distress Abd: obese, +BS, soft, NT/ND, no masses/organomegaly/ascites, protuberant umbilical hernia, soft/mildly tender/partially reducible Ext: warm, 2+ pulses in UE/LE bilaterally, 2+ pitting edema of bilateral LE, AV fistula in RUE with palpable thrill Neuro: nonfocal, patient AA&O x 4, speech intact, no facial droop, moving all extremities on command with equal strength 5/5 Results & Data Vital Signs (Past 12 Hours) Vital Signs Temp Pulse Resp BP Pulse Ox 03/10/19 20:30 66 21 165/70 H 94 03/10/19 20:18 64 22 97 03/10/19 20:15 64 22 167/64 H 90 03/10/19 20:00 67 21 151/77 H 94 03/10/19 19:45 65 17 158/69 H 95 03/10/19 19:30 154/67 H 95 03/10/19 19:15 163/68 H 95 03/10/19 19:06 69 20 94 03/10/19 19:05 37.1 C 74 22 147/62 H 90 Laboratory Results Lab Results 03/10/19 03/10/19 03/10/19 Range/Units 19:15 19:15 19:15 WBC 12.68 H (4.8-10.8) K/uL RBC 3.68 L (4.7-6.1) M/uL Hgb 9.7 L (14.0-18.0) g/dL Hct 32.5 L (42-52) % MCV 88.3 (80-100) fL MCH 26.4 (25-34) pg MCHC 29.8 L (32-36) g/dL RDW Std Deviation 51.2 H (36.4-46.3) fL RDW Coeff of Atif 15.8 H (11.5-14.5) % Plt Count 307 (130-400) K/uL MPV 10.3 (7.4-10.4) fL Immature Gran % (Auto) 0.6 % Neut % (Auto) 82.2 % Lymph % (Auto) 5.4 % [place] % (Auto) 9.5 % Eos % (Auto) 2.1 % Baso % (Auto) 0.2 % Immature Gran # (Auto) 0.07 H (0.00-0.02) K/uL Neut # (Auto) 10.43 H (1.4-6.5) K/uL Lymph # (Auto) 0.68 L (1.2-3.4) K/uL [place] # (Auto) 1.20 H (0.11-0.59) K/uL Eos # (Auto) 0.27 (0-0.5) K/uL Baso # (Auto) 0.03 (0-0.2) K/uL PT 11.1 (9.0-12.0) Seconds INR 1.1 (0.9-1.1) APTT 28.5 (21.0-31.0) Seconds PTT Ratio 1.1 VBG pH (7.36-7.41) VBG pCO2 (38-50) mmHg VBG pO2 mmHg VBG HCO3 mmol/L VBG O2 Saturation % VBG Base Excess mEq/L Barometric Pressure mm/Hg Sodium 140 (136-145) mmol/L Potassium 4.1 (3.5-5.1) mmol/L Chloride 103 (98-107) mmol/L Carbon Dioxide 30 (21-32) mmol/L Anion Gap 7.0 (3-11) BUN 91 H (7-18) mg/dl Creatinine 4.02 H (0.6-1.4) mg/dl Est Cr Clr Drug Dosing 25.7 ml/min Est GFR ( Amer) 16.8 Est GFR (Non-Af Amer) 14.5 BUN/Creatinine Ratio 22.7 H (10-20) Glucose 194 H (70-99) mg/dl Calcium 7.9 L (8.5-10.1) mg/dl Magnesium 2.7 H (1.8-2.4) mg/dl Total Bilirubin 0.4 (0.2-1) mg/dl AST 17 (15-37) U/L ALT 27 (12-78) U/L Alkaline Phosphatase 61 (45-117) U/L Troponin I < 0.015 (0-0.045) ng/ml Total Protein 7.3 (6.4-8.2) gm/dl Albumin 2.8 L (3.4-5.0) gm/dl Globulin 4.5 H (2.5-4.0) gm/dl Albumin/Globulin Ratio 0.6 L (0.9-2) Urine Color Urine Appearance (Clear) Urine pH (4.5-7.5) Ur Specific [place] (1.000-1.030) Urine Protein (Negative) Urine Glucose (UA) (Negative) Urine Ketones (Negative) Urine Blood (Negative) Urine Nitrite (Negative) Urine Bilirubin (Negative) Urine Urobilinogen (Negative) Ur Leukocyte Esterase (Negative) Urine WBC (Auto) (0-5) /hpf Urine RBC (Auto) (0-4) /hpf U Hyaline Cast (Auto) (0-5) /lpf U Epithel Cells (Auto) (0-5) /lpf Urine Bacteria (Auto) (Negative) 03/10/19 03/10/19 Range/Units 19:15 20:40 WBC (4.8-10.8) K/uL RBC (4.7-6.1) M/uL Hgb (14.0-18.0) g/dL Hct (42-52) % MCV (80-100) fL MCH (25-34) pg MCHC (32-36) g/dL RDW Std Deviation (36.4-46.3) fL RDW Coeff of Atif (11.5-14.5) % Plt Count (130-400) K/uL MPV (7.4-10.4) fL Immature Gran % (Auto) % Neut % (Auto) % Lymph % (Auto) % [place] % (Auto) % Eos % (Auto) % Baso % (Auto) % Immature Gran # (Auto) (0.00-0.02) K/uL Neut # (Auto) (1.4-6.5) K/uL Lymph # (Auto) (1.2-3.4) K/uL [place] # (Auto) (0.11-0.59) K/uL Eos # (Auto) (0-0.5) K/uL Baso # (Auto) (0-0.2) K/uL PT (9.0-12.0) Seconds INR (0.9-1.1) APTT (21.0-31.0) Seconds PTT Ratio VBG pH 7.37 (7.36-7.41) VBG pCO2 52 H (38-50) mmHg VBG pO2 52 mmHg VBG HCO3 30 mmol/L VBG O2 Saturation 85.0 % VBG Base Excess 3.5 mEq/L Barometric Pressure 731.6 mm/Hg Sodium (136-145) mmol/L Potassium (3.5-5.1) mmol/L Chloride (98-107) mmol/L Carbon Dioxide (21-32) mmol/L Anion Gap (3-11) BUN (7-18) mg/dl Creatinine (0.6-1.4) mg/dl Est Cr Clr Drug Dosing ml/min Est GFR ( Amer) Est GFR (Non-Af Amer) BUN/Creatinine Ratio (10-20) Glucose (70-99) mg/dl Calcium (8.5-10.1) mg/dl Magnesium (1.8-2.4) mg/dl Total Bilirubin (0.2-1) mg/dl AST (15-37) U/L ALT (12-78) U/L Alkaline Phosphatase (45-117) U/L Troponin I (0-0.045) ng/ml Total Protein (6.4-8.2) gm/dl Albumin (3.4-5.0) gm/dl Globulin (2.5-4.0) gm/dl Albumin/Globulin Ratio (0.9-2) Urine Color Yellow Urine Appearance Clear (Clear) Urine pH 5.0 (4.5-7.5) Ur Specific [place] 1.019 (1.000-1.030) Urine Protein Trace H (Negative) Urine Glucose (UA) Negative (Negative) Urine Ketones Negative (Negative) Urine Blood Negative (Negative) Urine Nitrite Negative (Negative) Urine Bilirubin Negative (Negative) Urine Urobilinogen Negative (Negative) Ur Leukocyte Esterase Negative (Negative) Urine WBC (Auto) 0 (0-5) /hpf Urine RBC (Auto) 0-4 (0-4) /hpf U Hyaline Cast (Auto) 1-5 (0-5) /lpf U Epithel Cells (Auto) 0-5 (0-5) /lpf Urine Bacteria (Auto) Negative (Negative) Diagnostic Findings XR chest 1V portable CLINICAL HISTORY: Dyspnea dyspnea COMPARISON STUDY: 03/06/2019 FINDINGS: Mild cardiomegaly. Prominent pulmonary vasculature as well as parenchymal markings throughout both hemithoraces. This is essentially unchanged in the prior study. IMPRESSION: Pulmonary edema versus congestive heart failure The above report was generated using voice recognition software. It may contain grammatical, syntax or spelling errors. Electronically signed by: Eliceo Mccain M.D. 03/10/2019 7:37 PM Dictated: 03/10/191936 Transcribed: 03/10/191936 ECG Additional Comments: Pending Code Status & VTE Plan Code Status Full code VTE Prophylaxis Plan VTE Prophylaxis will be ordered: Yes PG Care Time/CCT Total # of Minutes Spent Total Time Spent with Patient: Total time spent is greater than 50% in coordination of care (as documented) at patient's floor/unit and/or counseling patient: (1) CAD (coronary artery disease) Coronary Disease-Associated Artery/Lesion type: [place] artery [place] vs. transplanted heart: [place] heart Associated angina: without angina Qualified Code(s): I25.10 - Atherosclerotic heart disease of [place] coronary artery without angina pectoris (2) Sleep apnea Sleep apnea type: unspecified type Qualified Code(s): G47.30 - Sleep apnea, unspecified (3) Depression Depression Type: major depressive disorder Major depression recurrence: recurrent Active/Remission status: remission status unspecified Qualified Code(s): F33.9 - Major depressive disorder, recurrent, unspecified (4) BPH (benign prostatic hyperplasia) Lower urinary tract symptom presence: symptoms absent Qualified Code(s): N40.0 - Benign prostatic hyperplasia without lower urinary tract symptoms
[2019-03-10] MEDS ORDERED: ONDANSETRON INJ 2 MG/ML 2 ML VIAL IV PRN (21:49)
[2019-03-10] MEDS ORDERED: LORATADINE 10 MG TAB PO PRN (21:49)
[2019-03-10] MEDS ORDERED: ACETAMINOPHEN 325 MG TAB PO PRN (21:49)
[2019-03-10] MEDS ORDERED: GLUCOSE 40% GEL 15 GM TUBE PO PRN (21:49)
[2019-03-10] MEDS ORDERED: ALBUTEROL 0.5% NEB SOLN 2.5 MG/0.5 ML VIAL NEB PRN (21:49)
[2019-03-10] MEDS ORDERED: GLUCAGON FOR INJ 1 MG VIAL SQ PRN (21:49)
[2019-03-10] MEDS ORDERED: GLUCOSE 10 TABS/TUBE PO PRN (21:49)
[2019-03-10] MEDS ORDERED: DOCUSATE SODIUM 100 MG CAP PO PRN (21:49)
[2019-03-10] MEDS ORDERED: DEXTROSE 50% 50 ML SYRINGE IV PRN (21:49)
[2019-03-10] MEDS ORDERED: ALBUTEROL 0.083% NEBU SOLN 3 ML VIAL NEB PRN (21:55)
[2019-03-10 22:14] LABS: NT Pro B Type Natriuretic Pept 2435 pg/ml (0-900); Phosphorus 4.9 mg/dl (2.5-4.9)
[2019-03-10] MEDS: FUROSEMIDE 80 MG TAB PO SCH (22:31)
[2019-03-10] MEDS: CARVEDILOL 12.5 MG TAB PO SCH (22:31)
[2019-03-10] MEDS: cloNIDine HCl 0.1 MG TAB PO SCH (22:31)
[2019-03-10] MEDS: HEPARIN SOD 5,000 UNIT/0.5 ML VIAL SQ SCH (22:32)
[2019-03-10] MEDS: INSULIN GLARGINE 100 UNIT/ML VIAL SC SCH (22:35)
[2019-03-10] MEDS: INSULIN ASPART 100 UNITS/ML 3 ML PEN SC SCH (22:43)
[2019-03-11] MEDS: HEPARIN SOD 5,000 UNIT/0.5 ML VIAL SQ SCH ×3 (05:52→21:09)
[2019-03-11 06:27] LABS: Basophils # (auto) 0.03 K/uL (0-0.2); Basophils % (auto) 0.3 %; Eosinophils # (auto) 0.22 K/uL (0-0.5); Eosinophils % (auto) 2.3 %; Immature Granulocytes # (auto) 0.02 K/uL (0.00-0.02); Immature Granulocytes % (auto) 0.2 %; Lymphocytes # (auto) 1.32 K/uL (1.2-3.4); Mean Corpuscular Hemoglobin 26.6 pg (25-34); Mean Corpuscular Hgb Conc 30.3 g/dL (32-36); Mean Corpuscular Volume 87.8 fL (80-100); Mean Platelet Volume 9.9 fL (7.4-10.4); Monocytes # (auto) 0.65 K/uL (0.11-0.59); Monocytes % (auto) 6.9 %; Neutrophils # (auto) 7.19 K/uL (1.4-6.5); Neutrophils % (auto) 76.3 %; Platelet Count 288 K/uL (130-400); RDW Coefficient of Variation 15.9 % (11.5-14.5); RDW Standard Deviation 51.1 fL (36.4-46.3); Red Blood Count 3.76 M/uL (4.7-6.1); White Blood Count 9.43 K/uL (4.8-10.8)
[2019-03-11 06:45] LABS: BUN Creatinine Ratio 23.4 (10-20); Calcium 8.4 mg/dl (8.5-10.1); Creatinine Clr Calc Pharmacy 26.7 ml/min; Est GFR (African American) 18.2; Est GFR (Non-African American) 15.7; Potassium 3.8 mmol/L (3.5-5.1)
[2019-03-11] MEDS: TAMSULOSIN HCL 0.4 MG CAP PO SCH (08:31)
[2019-03-11] MEDS: SERTRALINE HCL 50 MG TABLET PO SCH (08:31)
[2019-03-11] MEDS: CARVEDILOL 12.5 MG TAB PO SCH ×2 (08:31→20:27)
[2019-03-11] MEDS: FUROSEMIDE 80 MG TAB PO SCH ×2 (08:31→20:28)
[2019-03-11] MEDS: HydrALAZINE TAB 50 MG TAB PO SCH ×3 (08:32→20:27)
[2019-03-11] MEDS: AMLODIPINE BESYLATE 5 MG TAB PO SCH (08:32)
[2019-03-11] MEDS: CLOPIDOGREL BISULFATE 75 MG TAB PO SCH (08:33)
[2019-03-11] MEDS: cloNIDine HCl 0.1 MG TAB PO SCH ×2 (08:33→20:26)
[2019-03-11] MEDS: ASPIRIN 81 MG ECTAB PO SCH (08:34)
[2019-03-11] MEDS: INSULIN GLARGINE 100 UNIT/ML VIAL SC SCH (08:35)
[2019-03-11] MEDS: INSULIN ASPART 100 UNITS/ML 3 ML PEN SC SCH ×4 (08:37→20:34)
--- NOTE | 2019-03-11 20:17 | Family Medicine Progress Note ---
Date of Service March 11, 2019 Assessment & Plan (1) Hypoxia: 68-year-old man Past medical history CAD, CHF, DM 2, sleep apnea not on CPAP, and anemiahere for CHF exacerbation CHF exacerbation Likely secondary to high sodium intake in his diet, this is second sensation of rapid succession. Patient initially hypoxic down to 60% has been diuresing well and is now oxygenating adequately on 2 L nasal cannula On Lasix 80 mg twice daily p.o. Already down 1 L since admission Dry weight approximately 277 currently weighs 286 pounds up from his discharge weight from previous Admission Sleep apnea Patient very somnolent when sitting up watching TV falls asleep easily, patient has been prescribed outpatient CPAP however he is noncompliant Discussed the patient the importance of using CPAP he is very superficial in his defense, although he does say he is willing to give it a try Hypoxemic respiratory failure acute Patient believes all secondary to particle inhalation, believes that he continues to take the substance continues to have his nose his ears and his mouth despite exposure been many years ago He says that residue is often on his jacket and short, on further inspection this appears to be dandruff from his dry and flaking face That being said patient has had 2 markedly hypoxic episodes in the last week, and would likely benefit from outpatient pulmonary function testing will arrange on discharge (2) SOB (shortness of breath): (3) CAD (coronary artery disease): (4) CHF exacerbation: (5) Hypoxia: Supervising Physician Co-Signing Physician Notes I personally examined the patient and verified all roman points of history and exam, discussed case, and agree with decision making with Dr Ang. feeling better breathing better than before doesn't wear CPAP notes didn't like it but sounds like only briefly tried and didn't try multiple masks/nasal devices is more aware of sodium restriction importance notes that he has dry flaky stuff come from nose/eyes and it gets on his clothes vitals noted nad breathing unlabored lungs cta no r/r/w good effort no accessory muscles. 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 no focal neuro deficits hypoxia - seems to be pulmonary edema related to acute on chronic diastolic CHF and CKD precipitated by sodium intake. diuresing well. has f/u at [facility] appears to be heading towards HD. aware of need for sodium restriction. discussed role of untreated RADHA as well - he was fairly resistent. does appear likely to need home O2 at this time concern on lung injury related to inhalation - does seem reasonable to have concern on this but tried to impart to pt that the main issues causing his dyspnea appear to be clear and evident in his CHF/CKD/RADHA axis of comorbidities. it appears that the "powder" that he notes he still brings up is simply untreated brady derm flakes of skin. he does show a rather significant fixation on this, however, and attempts to educate on what appears to be going on with above were met with a fine line of acceptance vs severing rapport -- will have to move slowly. again, it does seem reasonable to w/u for chronic lung disease as well, as it may be a concomitant factor (will definitely want CT chest once edema has cleared, PFTs in near future as well, pulmonary has been consulted) but my concern is that if pt believes that all of his dyspnea is related to a lung injury that he may not even have (or if he does, is not 100% of his dyspnea by any means) that he may not put in the effort to take care of his comorbidities that are clearly causing him problems (ie he may not be adherent with sodium restriction, retry of CPAP, meds, etc) brady derm - noted. can treat as outpt otherwise as above Subjective Patient reports that he is already feeling much better, he admits to having a large meatball [employer] sandwich from [employer] that he feels was particularly salty several hours later he found himself hypoxic and had to call 911. Patient with mild shortness of breath currently says is much improved Patient is convinced that his symptoms are likely secondary to a substance inhalation he had many years ago he believes he still tasteless obtained from time to time has not come out of his nose his ears nose mouth and collect on his jackets. On exam it appears to be dandruff Review of Systems Review of Systems: All systems reviewed & are unremarkable except as noted in HPI & below Physical Exam Physical Exam: Constitutional: [age]-year-old man appearing older than stated age in no apparent distress sitting up in a chair, nasal cannula in place obese Eyes: Anicteric sclerae pupils equal round reactive to light, extraocular muscle movements intact Neck: Difficult to assess JVP secondary to obesity, however do not appreciate any elevated JVP Cardiovascular: Heart sounds dual regular rate regular rhythm no murmurs rubs skips or gallops, mild pitting edema bilateral lower extremity left equal to right, AV fistula present in right upper extremity Respiratory: Chest expansion symmetric, lung sounds vesicular in all lung morales Gastrointestinal: Abdomen soft nontender no organomegaly no mass detected abdomen is obese Neuro: No focal deficits patient alert and oriented x4 Results & Data Vital Signs (Past 12 Hours) Vital Signs Temp Pulse Resp BP Pulse Ox 03/11/19 15:44 36.7 C 64 22 143/57 H 92 03/11/19 13:03 90 03/11/19 13:02 63 22 155/65 H 88 L 03/11/19 08:00 60 96 03/11/19 07:14 36.8 C 58 L 18 146/62 H 91 PG Care Time/CCT Total # of Minutes Spent Total Time Spent with Patient: Total time spent is greater than 50% in coordination of care (as documented) at patient's floor/unit and/or counseling patient: Resident Activity Tracking Resident Involvement: Resident Care Provided Care Provided: Adult Hospital Medicine (1) CHF exacerbation Heart failure type: unspecified Qualified Code(s): I50.9 - Heart failure, unspecified (2) CAD (coronary artery disease) Associated angina: without angina Coronary Disease-Associated Artery/Lesion type: [place] artery [place] vs. transplanted heart: [place] heart Qualified Code(s): I25.10 - Atherosclerotic heart disease of [place] coronary artery witho ut angina pectoris
[2019-03-11] MEDS: ATORVASTATIN 20 MG TAB PO SCH (20:27)
[2019-03-11] MEDS ORDERED: INSULIN GLARGINE 100 UNIT/ML VIAL SC SCH (21:00)
[2019-03-12] MEDS: HEPARIN SOD 5,000 UNIT/0.5 ML VIAL SQ SCH ×3 (06:29→21:46)
[2019-03-12 06:57] LABS: BUN Creatinine Ratio 23.7 (10-20); Calcium 8.8 mg/dl (8.5-10.1); Creatinine Clr Calc Pharmacy 26.4 ml/min; Est GFR (African American) 18.2; Est GFR (Non-African American) 15.7; Potassium 3.6 mmol/L (3.5-5.1)
[2019-03-12] MEDS: CARVEDILOL 12.5 MG TAB PO SCH ×2 (08:33→20:06)
[2019-03-12] MEDS: HydrALAZINE TAB 50 MG TAB PO SCH ×3 (08:33→20:07)
[2019-03-12] MEDS: TAMSULOSIN HCL 0.4 MG CAP PO SCH (08:33)
[2019-03-12] MEDS: ASPIRIN 81 MG ECTAB PO SCH (08:33)
[2019-03-12] MEDS: SERTRALINE HCL 50 MG TABLET PO SCH (08:34)
[2019-03-12] MEDS: AMLODIPINE BESYLATE 5 MG TAB PO SCH (08:34)
[2019-03-12] MEDS: CLOPIDOGREL BISULFATE 75 MG TAB PO SCH (08:34)
[2019-03-12] MEDS: cloNIDine HCl 0.1 MG TAB PO SCH ×2 (08:34→20:07)
[2019-03-12] MEDS: FUROSEMIDE 80 MG TAB PO SCH ×2 (08:34→20:41)
[2019-03-12] MEDS: INSULIN GLARGINE 100 UNIT/ML VIAL SC SCH ×2 (08:37→20:41)
[2019-03-12] MEDS: INSULIN ASPART 100 UNITS/ML 3 ML PEN SC SCH ×4 (08:39→20:43)
--- NOTE | 2019-03-12 11:43 | CT Scan Report ---
CT OF THE CHEST WITHOUT IV CONTRAST CLINICAL HISTORY: Hypoxemic respiratory failure. COMPARISON STUDY: Chest radiograph March 10, 2019. CT DOSE: 904.58 mGy.cm TECHNIQUE: Axial images of the chest were obtained without IV contrast. Images were reviewed in the axial, sagittal, and coronal planes. IV contrast was not administered for this examination. Automat ed exposure control was utilized for the study. A dose lowering technique was utilized adhering to t he principles of ALARA. FINDINGS: There are prominent mediastinal bilateral hilar lymph nodes which are probably benign. No axillary lymphadenopathy is present. The heart is moderately enlarged. Extensive coronary artery calc ification is present. There is no pericardial effusion. Central airways are patent. There is no pneum othorax. Small right pleural effusion is noted. Mild interlobular septal thickening is noted with dio undglass opacities which favors pulmonary edema. There are scattered additional patchy bilateral airs pace opacities. There is no lobar consolidation. The central airways are patent. No suspicious osseou s lesion within the bony thorax is noted. Upper abdomen is unremarkable. IMPRESSION: 1. Interlobular septal thickening and mild groundglass opacities suggestive of pulmonary edema. 2. Additional scattered mild airspace opacities which may reflect a superimposed infectious process o r less likely alveolar edema. A small right pleural effusion. 4. Moderate cardiomegaly. Extensive coronary artery calcification. 5. Prominent mediastinal and bilateral hilar lymph nodes which are nonspecific but probably benign. Electronically signed by: Chaim Phan M.D. 03/12/2019 11:41 AM
--- NOTE | 2019-03-12 15:52 | Pulmonary Consultation ---
Date of Consultation March 12, 2019 Assessment & Plan (1) Acute respiratory failure, unspecified whether with hypoxia or hypercapnia: Patient hypoxia is likely secondary to volume overload leading to pulmonary edema. Unlikely to be infectious in origin. Procalcitonin does not help with CKD. Will order ESR CRP. Patient has underlying CKD stage IV on the verge of hemodialysis. Would recommend diuresis as tolerated and transition to hemodialysis as per nephrology Patient is not in severe respiratory distress for any emergent hemodialysis Continue with O2 supplementation Would recommend BiPAP 12/6 with 50% FiO2 nightly and as needed shortness of breath If you are not able to diurese patient appropriately he will end up on home O2. We will document saturation on room air at rest and on ambulation if the saturation drops below 88% patient will need home oxygen. --Obstructive sleep apnea Patient apparently had a sleep study done but he does not have CPAP machine at home Patient will need BiPAP nightly and as needed shortness of breath while in the hospital. Importance of using the machine explained to the patient. --COPD Patient needs PFTs as an outpatient Continue with inhaled therapy while in the hospital. On discharge we will discharge the patient on LAMA (Spiriva) inhaler once daily Needs to follow-up with the pulmonary as an outpatient Present on Admission?: Yes (2) CAD (coronary artery disease): Coronary Disease-Associated Artery/Lesion type: [place] artery [place] vs. transplanted heart: [place] heart Associated angina: without angina Qualified Code(s): I25.10 - Atherosclerotic heart disease of [place] coronary artery without angina pectoris (3) (HFpEF) heart failure with preserved ejection fraction: (4) Chronic kidney disease, stage 4 (severe): (5) Sleep apnea: Sleep apnea type: unspecified type Qualified Code(s): G47.30 - Sleep apnea, unspecified (6) Diabetes mellitus type 2 in obese: Care as per primary team. Patient does have episodes of hypoglycemia. History of Present Illness Reason for Consultation: Hypoxia with pulmonary infiltrates Attending Physician: Alli Manzo DO History of Present Illness 68-year-old santhosh with past medical history of CKD stage IV, hyp ertension, COPD, diabetes, dyslipidemia, RADHA but does not have CPAP at home was admitted to the hospital because of shortness of breath which has been getting progressively worse. Patient was recently admitted from 03/06 03/09-for shortness of breath secondary to volume overload. He was given IV Lasix at the time of discharge home the day prior to presentation again. Patient denies any fever or chills. Does complain of cough which is unchanged since years with clear phlegm. Patient denies any chest pain. No dizziness. He does state that when he gets this shortness of breath he has diaphoresis. As per the patient is compliant with his medication. Along with sodium and water restriction. Patient denies any night sweats. No nausea or vomiting. No dysuria, no diarrhea. No recent travel history. Patient is not on home oxygen. 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 No poultry around. Has 2 cats at home which he is not allergic to. Allergies Allergy/AdvReac Type Severity Reaction Status Date / Time ragweed pollen Allergy Mild [place] Verified 03/10/19 20:22 Home Medications Home Medications Medication Instructions Recorded Confirmed Type Novolog PenFill U-100 Insulin 10 unit SUBCUT AC 01/06/19 03/10/19 History albuterol sulfate 2 puff INHALATION Q6H PRN 01/06/19 03/10/19 History amlodipine 10 mg PO QAM 01/06/19 03/10/19 History atorvastatin 20 mg PO PM 01/06/19 03/10/19 History clonidine HCl 0.1 mg PO BID 01/06/19 03/10/19 History furosemide [Lasix] 80 mg PO BID 01/06/19 03/10/19 History hydralazine 100 mg PO TID 01/06/19 03/10/19 History loratadine 10 mg PO DAILY PRN 01/06/19 03/10/19 History sertraline 25 mg PO QAM 01/06/19 03/10/19 History tamsulosin 0.4 mg PO QAM 01/06/19 03/10/19 History Lantus Solostar U-100 Insulin 60 unit SUBCUT BID 03/06/19 03/10/19 History aspirin [Aspir-81] 81 mg PO DAILY 03/06/19 03/10/19 History carvedilol [Coreg] 12.5 mg PO BID 03/06/19 03/10/19 History clopidogrel [Plavix] 75 mg PO DAILY 03/06/19 03/10/19 History Patient History Medical History Sleep apnea (Chronic) does not use CPAP HTN (hypertension) (Chronic) Anemia CAD (coronary artery disease) s/p stent 2018 CKD (chronic kidney disease) Stage 4 Diabetes Dyslipidemia Surgical History AV fistula Family History Other Hypertension Social History Preferred Language: Czech Communication Ability: Effective Enterprise Solutions 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 Required: No Beliefs That Will Affect Care: None marital status: Current Living Situation: Alone Feels Safe at Home: Yes Smoking Status: Current some day smoker Tobacco Type: cigars ; Cigarettes Per Day: one cigar every so often, less than one a month usually ; Second Hand Exposure: No ; Hx Alcohol Use: Yes Alcohol type: beer Hx Substance Use: No Review of Systems Review of Systems: All systems reviewed & are unremarkable except as noted in HPI & below Physical Exam Physical Exam: Constitutional: No acute distress HEENT: EOMI, PERRLA, arcus tinnitus bilaterally Respiratory system: Decreased air entry bilaterally, positive crackles bilaterally, no wheeze, no rhonchi CVS: S1-S2 positive, no gallops, positive 3 out of 6 systolic ejection murmur appreciated best at the aorta Abdomen: Soft, nontender, nondistended, positive bowel sounds x4 Extremities: +2 pulses bilaterally radialis/ dorsalis pedis, +3 pitting edema bilateral lower extremity, positive varicosities bilateral lower legs, no cyanosis Neuro: Awake alert oriented x3 Psych: Normal mood and affect G/U: No [place] Lymphatic: no cervical or axillary lymphadenopathy Results & Data Vital Signs (Past 12 Hours) Vital Signs Temp Pulse Resp BP Pulse Ox 03/12/19 15:23 36.7 C 63 20 154/71 H 96 03/12/19 07:40 36.4 C L 64 18 165/67 H 93 03/11/19 05:54 03/12/19 05:49 Diagnostic Findings Chest x-ray: Bilateral alveolar infiltrates CT chest reviewed personally: Bilateral groundglass opacities appreciated, interlobular thickening. Small right-sided pleural effusion. PG Care Time/CCT Total # of Minutes Spent Total Time Spent with Patient: Total time spent is greater than 50% in coordination of care (as documented) at patient's floor/unit and/or counseling patient:
--- NOTE | 2019-03-12 19:39 | Family Medicine Progress Note ---
Date of Service March 12, 2019 Assessment & Plan (1) Hypoxia: 68-year-old man Past medical history CAD, CHF, DM 2, sleep apnea not on CPAP, and anemiahere for CHF exacerbation CHF exacerbation Likely secondary to high sodium intake in his diet coupled with his chronic renal failure, this is second sensation of rapid succession. Patient initially hypoxic down to 60% has been diuresing well and is now oxygenating adequately on 2 L nasal cannula On Lasix 80 mg twice daily p.o. Will give extra 40 mg of lasix IV now Already down 1 L since admission Dry weight approximately 277 currently weighs 286 pounds up from his discharge weight from previous Admission Sleep apnea Patient has been prescribed outpatient CPAP however he is noncompliant Discussed the patient the importance of using CPAP he is very superficial in his defense, although he does say he is willing to give it a try Hypoxemic respiratory failure acute Patient believes all secondary to particle inhalation, believes that he continues to take the substance continues to have his nose his ears and his mouth despite exposure been many years ago He says that residue is often on his jacket and short, on further inspection this appears to be dandruff from his dry and flaking face That being said patient has had 2 markedly hypoxic episodes in the last week, and would likely benefit from outpatient pulmonary function testing will arrange on discharge Pulmonology consulted plan on discharging with spiriva and obtaining LFT's in the outpatient setting (2) SOB (shortness of breath): (3) CAD (coronary artery disease): (4) CHF exacerbation: Supervising Physician Co-Signing Physician Notes I personally examined the patient and verified all roman points of history and e xam, discussed case, and agree with decision making with Dr Ang. Generally feeling better. Wonders about the results of the CT scan. We discussed these. He expressed good understanding. I asked why he was short of breath all the time, whenever I discussed that it was related to his kidneys, heart, fluid overloadhe expressed good understanding of this. He notes he is working towards hemodialysis with his docs at the [place] in [place]. vitals noted nad breathing unlabored lungs cta no r/r/w good effort no accessory muscles. no focal neuro deficits hypoxia - seems to be pulmonary edema related to acute on chronic diastolic CHF and CKD precipitated by sodium intake. diuresing well. Creatinine is not yet bumped, continue to diurese with hopes of being able to wean oxygen. Unf ortunately I do harbor concern that he may need chronic oxygen and we discussed this. 6-minute walk test to be ordered. concern on lung injury related to inhalation -CT without concerning findings as it relates to chronic lung disease. We will definitely want to get PFTs as outpatient. Otherwise as above, pulmonary input appreciated. brady derm - noted. can treat as outpt otherwise as above Subjective Attending: Alli Manzo DO Angel Solorio is doing well today admits he is breathing much more comfortably. He is willing to try oxygen at home if needed, and says he will go ahead with CPAP Review of Systems Review of Systems: All systems reviewed & are unremarkable except as noted in HPI & below Physical Exam Physical Exam: Constitutional: 68-year-old man appearing older than stated age in no apparent distress sitting up in bed, nasal cannula in place, obese Neck: Difficult to assess JVP secondary to obesity, however do not appreciate any elevated JVP Cardiovascular: Heart sounds dual regular rate regular rhythm no murmurs rubs skips or gallops, mild pitting edema bilateral lower extremity left equal to right, AV fistula present in right upper extremity Respiratory: Chest expansion symmetric, lung sounds vesicular in all lung morales Gastrointestinal: Abdomen soft nontender no organomegaly no mass detected abdomen is obese Neuro: No focal deficits patient alert and oriented x4 Results & Data Vital Signs (Past 12 Hours) Vital Signs Temp Pulse Resp BP Pulse Ox 03/12/19 15:23 36.7 C 63 20 154/71 H 96 03/12/19 07:40 36.4 C L 64 18 165/67 H 93 PG Care Time/CCT Total # of Minutes Spent Total Time Spent with Patient: Total time spent is greater than 50% in coordination of care (as documented) at patient's floor/unit and/or counseling patient: Resident Activity Tracking Resident Involvement: Resident Care Provided Care Provided: Adult Hospital Medicine (1) CHF exacerbation Heart failure type: unspecified Qualified Code(s): I50.9 - Heart failure, unspecified (2) CAD (coronary artery disease) Associated angina: without angina Coronary Disease-Associated Artery/Lesion type: [place] artery [place] vs. transplanted heart: [place] heart Qualified Code(s): I25.10 - Atherosclerotic heart disease of [place] coronary artery without angina pectoris
[2019-03-12] MEDS ORDERED: FUROSEMIDE 40 MG/4 ML VIAL IV ONE (19:50)
[2019-03-12] MEDS: ATORVASTATIN 20 MG TAB PO SCH (20:06)
[2019-03-12] MEDS ORDERED: FUROSEMIDE 40 MG in SYRINGE 0 ML IV ONE (20:15)
[2019-03-13] MEDS: HEPARIN SOD 5,000 UNIT/0.5 ML VIAL SQ SCH ×3 (06:11→21:29)
[2019-03-13 08:00] LABS: BUN Creatinine Ratio 23.6 (10-20); Calcium 9.4 mg/dl (8.5-10.1); Creatinine Clr Calc Pharmacy 27.5 ml/min; Est GFR (African American) 19.2; Est GFR (Non-African American) 16.6; Potassium 3.8 mmol/L (3.5-5.1)
[2019-03-13] MEDS: CARBOHYDRATES FOR HYPOGLYCEMIA PO PRN ×2 (08:03→08:18)
[2019-03-13] MEDS: CARVEDILOL 12.5 MG TAB PO SCH ×2 (08:04→21:25)
[2019-03-13] MEDS: HydrALAZINE TAB 50 MG TAB PO SCH ×3 (08:04→21:24)
[2019-03-13] MEDS: CLOPIDOGREL BISULFATE 75 MG TAB PO SCH (08:04)
[2019-03-13] MEDS: FUROSEMIDE 80 MG TAB PO SCH ×2 (08:04→21:24)
[2019-03-13] MEDS: SERTRALINE HCL 50 MG TABLET PO SCH (08:04)
[2019-03-13] MEDS: AMLODIPINE BESYLATE 5 MG TAB PO SCH (08:04)
[2019-03-13] MEDS: TAMSULOSIN HCL 0.4 MG CAP PO SCH (08:05)
[2019-03-13] MEDS: ASPIRIN 81 MG ECTAB PO SCH (08:05)
[2019-03-13] MEDS: TIOTROPIUM BROMIDE 5 PUFF/90 MCG INH INH SCH (08:05)
[2019-03-13] MEDS: cloNIDine HCl 0.1 MG TAB PO SCH ×2 (08:05→21:24)
[2019-03-13] MEDS: INSULIN GLARGINE 100 UNIT/ML VIAL SC SCH ×2 (09:04→21:28)
[2019-03-13] MEDS: INSULIN ASPART 100 UNITS/ML 3 ML PEN SC SCH ×4 (09:04→21:27)
--- NOTE | 2019-03-13 10:40 | Pulmonology Progress Note ---
Date of Service March 13, 2019 Assessment & Plan (1) Acute respiratory failure, unspecified whether with hypoxia or hypercapnia: Patient hypoxia is likely secondary to volume overload leading to pulmonary edema because of his underlying CKD. Unlikely to be infectious in origin. No signs or symptoms of pulmonary infection Patient has underlying CKD stage IV on the verge of hemodialysis. Would recommend diuresis as tolerated and transition to hemodialysis as per nephrology Patient is not in severe respiratory distress for any emergent hemodialysis Continue with O2 supplementation Would recommend BiPAP 12/6 with 50% FiO2 nightly and as needed shortness of breath Patient saturating 87% on room air at rest today with heart rate of 78. Patient will need home oxygen 2 L continuous with portable concentrator. -- Obstructive sleep apnea Patient apparently had a sleep study done but he does not have CPAP machine at home Patient will need BiPAP nightly and as needed shortness of breath while in the hospital. Importance of using the machine explained to the patient. -- COPD Patient needs PFTs as an outpatient Continue with inhaled therapy while in the hospital. On discharge we will discharge the patient on LAMA (Spiriva) inhaler once daily Needs to follow-up with the pulmonary as an outpatient No further recommendations from pulmonary perspective. Patient is to follow-up as an outpatient. (2) CAD (coronary artery disease): Coronary Disease-Associated Artery/Lesion type: [place] artery [place] vs. transplanted heart: [place] heart Associated angina: without angina Qualified Code(s): I25.10 - Atherosclerotic heart disease of [place] coronary artery without angina pectoris (3) (HFpEF) heart failure with preserved ejection fraction: (4) Chronic kidney disease, stage 4 (severe): (5) Sleep apnea: Sleep apnea type: unspecified type Qualified Code(s): G47.30 - Sleep apnea, unspecified (6) Diabetes mellitus type 2 in obese: Care as per primary team. Patient does have episodes of hypoglycemia noted in the chart. Subjective Patient seen and examined at bedside. No acute distress, no adverse events overnight. Exertional shortness of breath, no cough, no phlegm, no chills, no chest pain, no headache, no nausea, no vomiting. No headache, no dizziness, no palpitation. Patient states that he is urinating well. Tolerating diet. Saturating 87% on room air at rest the time of examination. Review of Systems Review of Systems: All systems reviewed & are unremarkable except as noted in HPI & below Physical Exam Physical Exam: Constitutional: No acute distress HEENT: EOMI, PERRLA, arcus tinnitus bilaterally Respiratory system: Decreased air entry bilaterally, positive crackles bilaterally lower lobes, no wheeze, no rhonchi CVS: S1-S2 positive, no gallops, positive 3 out of 6 systolic ejection murmur appreciated best at the aorta Abdomen: Soft, nontender, nondistended, positive bowel sounds x4, obese Extremities: +2 pulses bilaterally radialis/ dorsalis pedis, +2 pitting edema bilateral lower extremity, positive varicosities bilateral lower legs, no cyanosis Neuro: Awake alert oriented x3 Psych: Normal mood and affect G/U: No Charles Lymphatic: no cervical or axillary lymphadenopathy Results & Data Vital Signs (Past 12 Hours) Vital Signs Temp Pulse Pulse Pulse Pulse Pulse Pulse 03/13/19 09:45 61 78 59 L 49 L 03/13/19 07:00 36.5 C 93 H 03/13/19 03:31 57 L 03/12/19 23:00 36.8 C 93 H Resp Resp Resp Resp Resp BP Pulse Ox 03/13/19 09:45 20 20 18 18 03/13/19 07:00 20 166/74 H 90 03/13/19 03:31 16 97 03/12/19 23:00 20 139/66 93 Pulse Ox Pulse Ox Pulse Ox Pulse Ox 03/13/19 09:45 96 84 L 95 91 03/13/19 07:00 03/13/19 03:31 03/12/19 23:00 03/11/19 05:54 03/13/19 07:07 PG Care Time/CCT Total # of Minutes Spent Total Time Spent with Patient: Total time spent is greater than 50% in coordination of care (as documented) at patient's floor/unit and/or counseling patient:
--- NOTE | 2019-03-13 18:19 | Family Medicine Progress Note ---
Date of Service March 13, 2019 Assessment & Plan (1) Hypoxia: 68-year-old man Past medical history CAD, CHF, DM 2, sleep apnea not on CPAP, and anemiahere for CHF exacerbation Hypovolemia, Hypoxemic Respiratory failure Likely secondary to high sodium intake in his diet coupled with his chronic renal failure, this is second exacerbation in rapid succession. Patient initially hypoxic down to 60% has been diuresing well and is now oxygenating adequately on 2 L nasal cannula On Lasix 80 mg twice daily p.o. down 1.4 L since admission Sleep apnea Patient has been prescribed outpatient CPAP however he is noncompliant Does not currently have access, will need to set up Sleep study as outpatient Discussed the patient the importance of using CPAP he is very superficial in his defense, although he does say he is willing to give it a try Last night did not do well with it, will try again today Hypoxemic respiratory failure acute Patient believes all secondary to particle inhalation, believes that he continues to take the substance continues to have his nose his ears and his mouth despite exposure been many years ago He says that residue is often on his jacket and short, on further inspection this appears to be dandruff from his dry and flaking face That being said patient has had 2 markedly hypoxic episodes in the last week, and would likely benefit from outpatient pulmonary function testing will arrange on discharge Pulmonology consulted plan on discharging with spiriva and obtaining LFT's in the outpatient setting Patient with history of being a former smoker, may have component of COPD in addition to his CHF and CKD exacerbating his respiratory failure DVT PPx: SubQ hepain F/E/N: DMII diet, low sodium, Dispo: Home with home health, OUtpatient pulmonology follow up, outpatient nephrology follow up, outpatient primary care follow up will need sleep study and CPAP (2) SOB (shortness of breath): (3) CAD (coronary artery disease): (4) CHF exacerbation: Supervising Physician Co-Signing Physician Notes I personally examined the patient and verified all roman points of history and exam, discussed case, and agree with decision making with Dr Ang. feeling better overall - will have heat at home tomorrow. vitals noted nad breathing unlabored no accessory muscles good effort. no focal neuro deficits hypoxia - seems to be pulmonary edema related to acute on chronic diastolic CHF and CKD precipitated by sodium intake. needs 2L with ambulation. continue current meds and supportive care concern on lung injury related to inhalation -CT without concerning findings as it relates to chronic lung disease. however, does have smoking hx c/w COPD - appreciate pulmonary input started anticholinergic; outpt PFTs RADHA - continue to discuss dire need for treatment and the difference between O2 and CPAP. he's starting to express a degree of understanding. brady derm - noted. can treat as outpt otherwise as above Subjective Mr. Solorio says he is doing well today, he doesn't fully gras the difference between NC and CPAP. He does not believe he can sleep with a CPAP on and is not so sure that his sleepiness during the day is secondary to his sleep apnea. He is willing to listen to explanation and tells me he will give CPAP an honest try. Patient's friend will be available to give mr. Solorio a ride home tomorrow and is helping him to get heat in his trailer which he doesn't have currently. Review of Systems Review of Systems: All systems reviewed & are unremarkable except as noted in HPI & below Physical Exam Physical Exam: Constitutional: 68-year-old man appearing older than stated age in no apparent distress sitting up in bed, nasal cannula in place, obese Neck: Difficult to assess JVP secondary to obesity, however do not appreciate any elevated JVP Cardiovascular: Heart sounds dual regular rate regular rhythm no murmurs rubs skips or gallops, mild pitting edema bilateral lower extremity left equal to right, AV fistula present in right upper extremity Respiratory: Chest expansion symmetric, lung sounds vesicular in all lung morales no rales appreciated Gastrointestinal: Abdomen soft nontender no organomegaly no mass detected abdomen is obese Neuro: No focal deficits patient alert and oriented x4 Results & Data Vital Signs (Past 12 Hours) Vital Signs Temp Pulse Pulse Pulse Pulse Pulse Resp 03/13/19 14:44 36.7 C 65 18 03/13/19 09:45 61 78 59 L 49 L 03/13/19 07:00 36.5 C 93 H 20 Resp Resp Resp Resp BP Pulse Ox Pulse Ox 03/13/19 14:44 138/66 94 03/13/19 09:45 20 20 18 18 96 03/13/19 07:00 166/74 H 90 Pulse Ox Pulse Ox Pulse Ox 03/13/19 14:44 03/13/19 09:45 84 L 95 91 03/13/19 07:00 PG Care Time/CCT Total # of Minutes Spent Total Time Spent with Patient: Total time spent is greater than 50% in coordination of care (as documented) at patient's floor/unit and/or counseling patient: Resident Activity Tracking Resident Involvement: Resident Care Provided Care Provided: Adult Hospital Medicine (1) CAD (coronary artery disease) Coronary Disease-Associated Artery/Lesion type: [place] artery [place] vs. transplanted heart: [place] heart Associated angina: without angina Qualified Code(s): I25.10 - Atherosclerotic heart disease of [place] coronary artery without angina pectoris (2) CHF exacerbation Heart failure type: unspecified Qualified Code(s): I50.9 - Heart failure, unspecified
[2019-03-13] MEDS: ATORVASTATIN 20 MG TAB PO SCH (21:25)
[2019-03-14] MEDS: HEPARIN SOD 5,000 UNIT/0.5 ML VIAL SQ SCH (06:16)
[2019-03-14 06:55] LABS: BUN Creatinine Ratio 23.4 (10-20); Calcium 9.2 mg/dl (8.5-10.1); Creatinine Clr Calc Pharmacy 26.6 ml/min; Est GFR (African American) 18.4; Est GFR (Non-African American) 15.9; Potassium 4.1 mmol/L (3.5-5.1)
[2019-03-14] MEDS: cloNIDine HCl 0.1 MG TAB PO SCH (08:38)
[2019-03-14] MEDS: CLOPIDOGREL BISULFATE 75 MG TAB PO SCH (08:38)
[2019-03-14] MEDS: CARVEDILOL 12.5 MG TAB PO SCH (08:38)
[2019-03-14] MEDS: TAMSULOSIN HCL 0.4 MG CAP PO SCH (08:39)
[2019-03-14] MEDS: ASPIRIN 81 MG ECTAB PO SCH (08:39)
[2019-03-14] MEDS: FUROSEMIDE 80 MG TAB PO SCH (08:39)
[2019-03-14] MEDS: SERTRALINE HCL 50 MG TABLET PO SCH (08:39)
[2019-03-14] MEDS: HydrALAZINE TAB 50 MG TAB PO SCH ×2 (08:39→12:24)
[2019-03-14] MEDS: AMLODIPINE BESYLATE 5 MG TAB PO SCH (08:40)
[2019-03-14] MEDS: TIOTROPIUM BROMIDE 5 PUFF/90 MCG INH INH SCH (08:40)
[2019-03-14] MEDS: INSULIN GLARGINE 100 UNIT/ML VIAL SC SCH (08:41)
[2019-03-14] MEDS: INSULIN ASPART 100 UNITS/ML 3 ML PEN SC SCH ×2 (08:42→12:25)
--- NOTE | 2019-03-14 13:14 | Discharge Summary ---
Date of Service March 14, 2019 Admission HPI Per Admitting Provider Angel Solorio is a 68-year-old male with history of CAD status post [facility] [place], diabetes, hypertension, hyperlipidemia and CKD (fistula placed in right upper extremity in preparation for HD) presenting with shortness of breath. Patient was recently admitted from for the same, shortness of breath/volume overload/pulmonary edema. During the hospital stay he was diuresed with IV Lasix to near dry weight and discharged home in stable condition yesterday. He reports that he felt okay yesterday. He slept through the night without difficu lty. This afternoon he had acute onset of cough, shortness of breath and dyspnea on exertion as well as lightheadedness and sweating. EMS was calledpatient found to be 60% on room air. He was brought to [facility] ER. Upon arrival patient found to be afebrile, slightly hypertensive, tachypneic. He was placed on BiPAP 10/5, 30% FiO2 and administered 40 mg of Lasix IV. Patient reports that his symptoms have markedly improved. He denies chest pain, palpitations, fevers/chills, nausea/vomiting/diarrhea/constipation. No additional complaints at this time. 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 He states that he inhaled quite a bit of dust. He feels that this exposure is the root cause of his shortness of breath as well as other physical complaints. He states that he can still taste to the dust in his mouth occasionally and that his nose becomes stuffy frequently due to presence of the dust. He has never been diagnosed with any primary pulmonary conditions such as COPD or pneumoconiosis. To his knowledge he has never seen a staff mechanical engineer nor had PFTs in the past. He does report fairly frequent SOB/ALTAMIRANO and occasional wheezing. Presently does not use any home inhalers. He does carry a diagnosis of sleep apnea but does not use home CPAP. ER course: Nitro in route, Lasix 40 mg IV x1, BiPAP 10/5, 30% Admission Exam Per Admitting Provider General: patient obese, sitting at edge of bed with BiPAP in place, NAD, non-toxic in appearance, AA&O x 4 Skin: warm, dry, healing wounds on RLE HEENT: NC/AT, PERRL, EOMI, anicteric sclera, conjunctiva without injection, external ear normal to inspection and nontender, nares patent, moist mucus membranes, dentition intact, no oropharyngeal lesions, neck supple, trachea midline, no LAD, no thyromegaly, no JVD Heart: +S1/S2, regular, 2 out of 6 systolic ejection murmur at right second intercostal space Lungs: equal air entry bilaterally, mildly diminished in bases, no rale s/rhonchi/wheezing, speaking in complete sentences with no evidence of respiratory distress Abd: obese, +BS, soft, NT/ND, no masses/organomegaly/ascites, protuberant umbilical hernia, soft/mildly tender/partially reducible Ext: warm, 2+ pulses in UE/LE bilaterally, 2+ pitting edema of bilateral LE, AV fistula in RUE with palpable thrill Neuro: nonfocal, patient AA&O x 4, speech intact, no facial droop, moving all extremities on command with equal strength 5/5 Principal Diagnosis hypoxemic respiratory failure Discharge Exam Constitutional: 68-year-old man appearing older than stated age in no apparent distress sitting up in bed, nasal cannula in place, obese Neck: Difficult to assess JVP secondary to obesity, however do not appreciate any elevated JVP Cardiovascular: Heart sounds dual regular rate regular rhythm no murmurs rubs skips or gallops, mild pitting edema bilateral lower extremity left equal to right, AV fistula present in right upper extremity Respiratory: Chest expansion symmetric, lung sounds vesicular in all lung morales no rales appreciated Gastrointestinal: Abdomen soft nontender no organomegaly no mass detected abdomen is obese Neuro: No focal deficits patient alert and oriented x4 Discharge Data Allergies Allergy/AdvReac Type Severity Reaction Status Date / Time ragweed pollen Allergy Mild CONGESTON Verified 03/10/19 20:22 Consultations 03/10/19 20:33 ED Decision to Admit Stat 03/10/19 21:49 Consult Pulmonology Routine 03/13/19 22:42 Consult [facility] help desk consultant Routine Ordered Studies 03/12/19 10:46 CT chest wo con Urgent Hospital Course (1) Hypoxia: 68-year-old man Past medical history CAD, CHF, DM 2, sleep apnea not on CPAP, and anemia, here for hypovolemia and hypoxemic respiratory failure with pulmonary edema Hypovolemia, Hypoxemic Respiratory failure Likely secondary to high sodium intake in his diet coupled with his chronic r enal failure and some diastolic dysfunction of his heart Repeat echo done on this admission since previous echo was performed prior to his recent stent placement at outside institution which showed preserved EF no focal wall motion abnormalities, this is second exacerbation in rapid succession. Patient initially hypoxic down to 60% diuresed well and is now oxygenating adequately on 2 L nasal cannula On Lasix 80 mg twice daily p.o. Will continue on home dose as outpatient Pulmonology consulted who recommends BIPAP use at home and added a new medication [id number] Will follow up with pulmonology, nephrology, PCP as an outpatient Home O2 approved, patient says [facility] as well which he has had in the past but was noncompliant. He was initially noncompliant for us, but in the end gave it a fair chance and tolerated a full night of it Sleep apnea Patient has been prescribed outpatient CPAP in the past and [facility] sleep [facility] at unknown time in the past however he has been noncompliant Does not currently have CPAP or bipap Discussed the patient the importance of using CPAP he is very superficial in his defense, although he does say he is willing to give it a try and eventually tolerated it on final night of admission Despite multiple explanations, patient lacks understanding of both importance of treating his sleep apnea and difference between O2 supplementation and CPAP Continued education will be important Hypoxemic respiratory failure acute Patient believes all secondary to particle inhalation that occurred at work many years ago He is CONVINCED that every day he coughs up Perlite through his mouth breathes it out through his nose and it comes out of his ears. It is often on his jacket and shirt, on further inspection this appears to be dandruff from his dry and flaking face but he is convinced otherwise and he believes he can still taste it from time to time That being said patient has had 2 markedly hypoxic episodes in the last week, and would likely benefit from outpatient pulmonary function testing will arrange on discharge Pulmonology consulted plan on discharging with madina and obtaining LFT's in the outpatient setting Patient with history of being a former smoker, may have component of COPD in addition to his CHF and CKD exacerbating his respiratory failure Socioeconomic concerns Patient lives alone in a trailer that his friends believe is unlivable He does not currently have any heat set up, plan was made through incredible geriatric case manager coordinating through his friends to provide propane for heat in the immediate future and to coordinate to secure heat benefits from the state moving forward He does have electricity and runing water Office of aging involved will do home check Patient is competent and believes his house is livable for him. (2) SOB (shortness of breath): (3) CAD (coronary artery disease): (4) CHF exacerbation: Total Time Total Time Spent Total Time Spent (In Minutes): <30 Discharge Plan Discharge Items Patient Disposition: Home - Home Health Services Reason For Visit: SOB Discharge Diagnosis: CHF exacerbation in setting of likely sleep apnea, and chronic renal failure Activity: Resume your previous activity Non-emergency contact: Primary Care Provider and Dermatopathologist Call non-emergency contact if: you have any medication questions, your symptoms worsen and your temperature is above 101 Follow-up/Referrals: PCP,NO [Primary Care Provider] - Diet: Carb Consistent or DM2, Heart Healthy and Low Sodium (2gm) Addtl Attending Provider Instructions: Mr. Solorio, it was our pleasure to take care of you for your shortness of breath. We believe that this was secondary to a combination of factors. It was likely exacerbated by fluid retention secondary to your diet which has lately included salty soups and meatball subs. I would recommend staying away from high salt content foods. Since you have a stipend for food stamps I would recommend doing your best to avoid canned foods and soups and checking the nutrition label for salt content. The salt content in foods is causing your body to hold onto more water and you're at much higher risk to have shortness of breath from fluid retention due to your renal disease and mild heart disease. Using this technique of reading the label we would recommend keeping each days sodium intake less than 1500 mg. In addition, we believe that you have sleep apnea and possibly some underlying lung pathology. We will have you follow up with pulmonology as an outpatient and you will require 2 L of oxygen. Per pulmonology recommendations we will also be starting you on one new medication, spiriva, that you will take each morning to help with your breathing. We are concerned that you also have sleep apnea, per our social worker masters communicating with the [place], we do not see any record of you having had a sleep study. This will be important to schedule as an outpatient. I have written a prescription for this. It was truly a pleasure to meet you and I wish you nothing but the best moving forward Sincerely, Michael Ang MD Pending Studies at Discharge: No Stand-Alone Forms: My [facility], Smoking Cessation Medications and DC Order Prescriptions: New Spiriva with HandiHaler 18 mcg Capsule, W/Inhalation Device 1 puff inhalation QAM 30 Days Qty: 30 RF: 0 Continued furosemide [Lasix] 40 mg Tablet 80 mg PO BID RF: 0 atorvastatin 40 mg Tablet 20 mg PO PM RF: 0 amlodipine 10 mg Tablet 10 mg PO QAM RF: 0 hydralazine 100 mg Tablet 100 mg PO TID RF: 0 Novolog PenFill U-100 Insulin 100 unit/mL Cartridge 10 unit SUBCUT AC RF: 0 clonidine HCl 0.1 mg Tablet 0.1 mg PO BID RF: 0 tamsulosin 0.4 mg Capsule 0.4 mg PO QAM RF: 0 albuterol sulfate 90 mcg/actuation Hfa Aerosol Inhaler 2 puff INHALATION Q6H PRN (Reason: Shortness Of Breath) RF: 0 sertraline 50 mg Tablet 25 mg PO QAM RF: 0 loratadine 10 mg Tablet 10 mg PO DAILY PRN (Reason: Allergy Symptoms) RF: 0 carvedilol [Coreg] 12.5 mg tablet 12.5 mg PO BID RF: 0 clopidogrel [Plavix] 75 mg Tablet 75 mg PO DAILY RF: 0 aspirin [Aspir-81] 81 mg Tablet,Delayed Release (Dr/Ec) 81 mg PO DAILY RF: 0 Lantus Solostar U-100 Insulin 100 unit/mL (3 mL) insulin pen 50 unit SUBCUT BID RF: 0 Discharge Orders: Discharge Order (Routine); Ordered 03/14/19 Ordered By: Michael Ang Admission Data Admit Date/Time: 03/10/19 21:16 Attending Provider: Alli Manzo Admit Provider: Luisa Benitez Primary Care Provider: PCP,NO Other Providers: Luisa Benitez ; Frankie Palacios Other Interventions: Discharge Summary Assessment (RN) Last Done: 03/14/19 12:03 DC Date/Time DO NOT enter until pt leaves facility: 03/14/19 13:36 Supervising Physician Co-Signing Physician Notes I personally examined the patient and verified all roman points of history and exam, discussed case, and agree with decision making with Dr Ang. feeling better overall - and ready to go home vitals noted nad breathing unlabored no accessory muscles good effort. no focal neuro deficits hypoxia - seems to be pulmonary edema related to acute on chronic diastolic CHF and CKD precipitated by sodium intake. needs 2L with ambulation. home on current meds, Na restriction, [facility] with [facility]. concern on lung injury related to inhalation -CT without concerning findings as it relates to chronic lung disease. however, does have smoking hx c/w COPD - appreciate pulmonary input started anticholinergic (spiriva - to continue as outpt); outpt PFTs RADHA - educated extensively about the importance of this, finally he slept w CPAP last night and did well/felt better - unfortunately needs re-set [facility]rough [facility] due to not using before - case management aware/ [facility] to be made aware brady derm - noted. can treat as outpt otherwise as above
--- NOTE | 2019-03-15 16:01 | Discharge Summary ---
Date of Service March 15, 2019 Admission HPI Per Admitting Provider Angel Solorio is a 68-year-old male with history of CAD status post recent stent placement in January 2019 at the [place] in [place], diabetes, hypertension, hyperlipidemia and CKD (fistula placed in right upper extremity in preparation for HD) presenting with shortness of breath. Patient was recently admitted from for the same, shortness of breath/volume overload/pulmonary edema. During the hospital stay he was diuresed with IV Lasix to near dry weight and discharged home in stable condition yesterday. He reports that he felt okay yesterday. He slept through the night without difficu lty. This afternoon he had acute onset of cough, shortness of breath and dyspnea on exertion as well as lightheadedness and sweating. EMS was calledpatient found to be 60% on room air. He was brought to [facility] ER. Upon arrival patient found to be afebrile, slightly hypertensive, tachypneic. He was placed on BiPAP 10/5, 30% FiO2 and administered 40 mg of Lasix IV. Patient reports that his symptoms have markedly improved. He denies chest pain, palpitations, fevers/chills, nausea/vomiting/diarrhea/constipation. No additional complaints at this time. 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 He states that he inhaled quite a bit of dust. He feels that this exposure is the root cause of his shortness of breath as well as other physical complaints. He states that he can still taste to the dust in his mouth occasionally and that his nose becomes stuffy frequently due to presence of the dust. He has never been diagnosed with any primary pulmonary conditions such as COPD or pneumoconiosis. To his knowledge he has never seen a software intern nor had PFTs in the past. He does report fairly frequent SOB/ALTAMIRANO and occasional wheezing. Presently does not use any home inhalers. He does carry a diagnosis of sleep apnea but does not use home CPAP. ER course: Nitro in route, Lasix 40 mg IV x1, BiPAP 10/5, 30% Principal Diagnosis hypoxia Discharge Data Allergies Allergy/AdvReac Type Severity Reaction Status Date / Time ragweed pollen Allergy Mild CONGESTON Verified 03/10/19 20:22 Consultations 03/10/19 20:33 ED Decision to Admit Stat 03/10/19 21:49 Consult Pulmonology Routine 03/13/19 22:42 Consult [facility] e business specialist Routine Ordered Studies 03/12/19 10:46 CT chest wo con Urgent Total Time Total Time Spent Total Time Spent (In Minutes): <30 Please see separate documentation from the same date for actual clinical information. This note was generated simply to allow entry of the proper codes, but the separate note/same date contains the actual clinical information. T Discharge Plan Discharge Items Patient Disposition: Home - Home Health Services Reason For Visit: SOB Discharge Diagnosis: CHF exacerbation in setting of likely sleep apnea, and chronic renal failure Activity: Resume your previous activity Non-emergency contact: Primary Care Provider and Shipyard Painter Apprentice Call non-emergency contact if: you have any medication questions, your symptoms worsen and your temperature is above 101 Follow-up/Referrals: PCP,NO [Primary Care Provider] - Diet: Carb Consistent or DM2, Heart Healthy and Low Sodium (2gm) Addtl Attending Provider Instructions: Mr. Solorio, it was our pleasure to take care of you for your shortness of breath. We believe that this was secondary to a combination of factors. It was likely exacerbated by fluid retention secondary to your diet which has lately included salty soups and meatball subs. I would recommend staying away from high salt content foods. Since you have a stipend for food stamps I would recommend doing your best to avoid canned foods and soups and checking the nutrition label for salt content. The salt content in foods is causing your body to hold onto more water and you're at much higher risk to have shortness of breath from fluid retention due to your renal disease and mild heart disease. Using this technique of reading the label we would recommend keeping each days sodium intake less than 1500 mg. In addition, we believe that you have sleep apnea and possibly some underlying lung pathology. We will have you follow up with pulmonology as an outpatient and you will require 2 L of oxygen. Per pulmonology recommendations we will also be starting you on one new medication, spiriva, that you will take each morning to help with your breathing. We are concerned that you also have sleep apnea, per our psych social worker communicating with the [place], we do not see any record of you having had a sleep study. This will be important to schedule as an outpatient. I have written a prescription for this. It was truly a pleasure to meet you and I wish you nothing but the best moving forward Sincerely, Michael Ang MD Pending Studies at Discharge: No Stand-Alone Forms: My [facility], Smoking Cessation Medications and DC Order Prescriptions: New Spiriva with HandiHaler 18 mcg Capsule, W/Inhalation Device 1 puff inhalation QAM 30 Days Qty: 30 RF: 0 Continued furosemide [Lasix] 40 mg Tablet 80 mg PO BID RF: 0 atorvastatin 40 mg Tablet 20 mg PO PM RF: 0 amlodipine 10 mg Tablet 10 mg PO QAM RF: 0 hydralazine 100 mg Tablet 100 mg PO TID RF: 0 Novolog PenFill U-100 Insulin 100 unit/mL Cartridge 10 unit SUBCUT AC RF: 0 clonidine HCl 0.1 mg Tablet 0.1 mg PO BID RF: 0 tamsulosin 0.4 mg Capsule 0.4 mg PO QAM RF: 0 albuterol sulfate 90 mcg/actuation Hfa Aerosol Inhaler 2 puff INHALATION Q6H PRN (Reason: Shortness Of Breath) RF: 0 sertraline 50 mg Tablet 25 mg PO QAM RF: 0 loratadine 10 mg Tablet 10 mg PO DAILY PRN (Reason: Allergy Symptoms) RF: 0 carvedilol [Coreg] 12.5 mg tablet 12.5 mg PO BID RF: 0 clopidogrel [Plavix] 75 mg Tablet 75 mg PO DAILY RF: 0 aspirin [Aspir-81] 81 mg Tablet,Delayed Release (Dr/Ec) 81 mg PO DAILY RF: 0 Lantus Solostar U-100 Insulin 100 unit/mL (3 mL) insulin pen 50 unit SUBCUT BID RF: 0 Discharge Orders: Discharge Order (Routine); Ordered 03/14/19 Ordered By: Michael Ang Admission Data Admit Date/Time: 03/10/19 21:16 Attending Provider: Alli Manzo Admit Provider: Luisa Benitez Primary Care Provider: PCP,NO Other Providers: Luisa Benitez ; Frankie Palacios Other Interventions: Discharge Summary Assessment (RN) Last Done: 03/14/19 12:03 DC Date/Time DO NOT enter until pt leaves facility: 03/14/19 13:36
== END 2019-03-14 13:36 | disposition home health service (06) ==
LOC: 4W 18:54 → ED 18:54 → SUATTDRO 21:16 → 4W 21:33

== ENCOUNTER 2019-03-29 20:42 | Inpatient (IN) ==
[2019-03-29] MEDS ORDERED: LEVALBUTEROL HCL 1.25 MG/3 ML NEB NEB STA (21:20)
--- NOTE | 2019-03-29 21:45 | XRay Report ---
XR chest 1V portable CLINICAL HISTORY: Atypical chest pain COMPARISON STUDY: 03/10/2019 FINDINGS: The heart remains enlarged. Small pleural effusions are suspected. There are bilateral pulm onary airspace opacities likely representing pulmonary edema although a bilateral infectious/inflamma tory processes could appear similar.[ IMPRESSION: Cardiomegaly and pulmonary edema pattern. Clinical and radiographic follow-up is recommen ded. Electronically signed by: Etienne Valerio M.D. 03/29/2019 9:44 PM
[2019-03-29 21:48] LABS: Basophils # (auto) 0.01 K/uL (0-0.2); Basophils % (auto) 0.1 %; Eosinophils # (auto) 0.11 K/uL (0-0.5); Eosinophils % (auto) 1.1 %; Hematocrit (blood only) 30.6 % (42-52); Hemoglobin 9.4 g/dL (14.0-18.0); Immature Granulocytes # (auto) 0.02 K/uL (0.00-0.02); Immature Granulocytes % (auto) 0.2 %; Lymphocytes # (auto) 0.63 K/uL (1.2-3.4); Mean Corpuscular Hemoglobin 26.8 pg (25-34); Mean Corpuscular Hgb Conc 30.7 g/dL (32-36); Mean Corpuscular Volume 87.2 fL (80-100); Mean Platelet Volume 10.1 fL (7.4-10.4); Monocytes # (auto) 1.24 K/uL (0.11-0.59); Monocytes % (auto) 11.9 %; Neutrophils # (auto) 8.45 K/uL (1.4-6.5); Neutrophils % (auto) 80.7 %; Platelet Count 231 K/uL (130-400); RDW Coefficient of Variation 16.8 % (11.5-14.5); RDW Standard Deviation 53.3 fL (36.4-46.3); Red Blood Count 3.51 M/uL (4.7-6.1); White Blood Count 10.46 K/uL (4.8-10.8)
[2019-03-29] MEDS ORDERED: FUROSEMIDE 40 MG/4 ML VIAL IV STA (21:57)
[2019-03-29 22:26] LABS: Alanine Aminotransferase 24 U/L (12-78); Albumin Globulin Ratio 0.8 (0.9-2); Albumin Level 3.3 gm/dl (3.4-5.0); Alkaline Phosphatase 59 U/L (45-117); Aspartate Aminotransferase 18 U/L (15-37); BUN Creatinine Ratio 20.2 (10-20); Bilirubin,Total 0.5 mg/dl (0.2-1); Blood Urea Nitrogen 82 mg/dl (7-18); Calcium 8.4 mg/dl (8.5-10.1); Carbon Dioxide 31 mmol/L (21-32); Chloride 101 mmol/L (98-107); Creatine Kinase 74 U/L (39-308); Creatine Kinase MB < 1.0 ng/ml (0.5-3.6); Creatinine Clr Calc Pharmacy 25.1 ml/min; Est GFR (African American) 16.7; Est GFR (Non-African American) 14.4; Globulin 4.2 gm/dl (2.5-4.0); Glucose 201 mg/dl (70-99); Lipase 160 U/L (73-393); Sodium 140 mmol/L (136-145); Total Protein 7.5 gm/dl (6.4-8.2)
[2019-03-29 22:34] LABS: NT Pro B Type Natriuretic Pept 4690 pg/ml (0-900); Troponin I < 0.015 ng/ml (0-0.045)
[2019-03-30 00:45] LABS: Appearance Urine Clear (Clear); Bilirubin Urine Negative (Negative); Blood Urine Negative (Negative); Color Urine Yellow; Glucose Urine UA Negative (Negative); Ketones Urine Negative (Negative); Leukocyte Esterase Urine Negative (Negative); Nitrite Urine Negative (Negative); Protein Urine Negative (Negative); Specific Gravity Urine 1.017 (1.000-1.030); Urobilinogen Urine Negative (Negative)
[2019-03-30] MEDS ORDERED: ALBUTEROL HFA 8 GM INHALER INH PRN (03:34)
[2019-03-30] MEDS ORDERED: GLUCOSE 40% GEL 15 GM TUBE PO PRN (03:34)
[2019-03-30] MEDS ORDERED: LORATADINE 10 MG TAB PO PRN (03:34)
[2019-03-30] MEDS ORDERED: GLUCOSE 10 TABS/TUBE PO PRN (03:34)
[2019-03-30] MEDS ORDERED: ONDANSETRON INJ 2 MG/ML 2 ML VIAL IV PRN (03:34)
[2019-03-30] MEDS ORDERED: GLUCAGON FOR INJ 1 MG VIAL SQ PRN (03:34)
[2019-03-30] MEDS ORDERED: ACETAMINOPHEN 325 MG TAB PO PRN (03:34)
[2019-03-30] MEDS ORDERED: ALUMINUM/MAGNESIUM SUSP 30 ML UDC PO PRN (03:34)
[2019-03-30] MEDS ORDERED: DEXTROSE 50% 50 ML SYRINGE IV PRN (03:34)
[2019-03-30] MEDS ORDERED: CARBOHYDRATES FOR HYPOGLYCEMIA PO PRN (03:34)
[2019-03-30] MEDS ORDERED: MAGNESIUM HYDROXIDE SUSP 30 ML UDC PO PRN (03:34)
[2019-03-30] MEDS: HEPARIN SOD 5,000 UNIT/0.5 ML VIAL SQ SCH ×3 (05:34→21:39)
--- NOTE | 2019-03-30 05:38 | History & Physical Report ---
Date of Service March 30, 2019 Assessment & Plan (1) Acute respiratory failure, unspecified whether with hypoxia or hypercapnia: Secondary to CHF exacerbation and obesity hypoventilation syndrome. Present on Admission?: Yes (2) CHF exacerbation: CHF exacerbation/CAD/HFpEF/hypertension- The patient will be admitted to telemetry for serial cardiac enzymes, serial EKG's, cardiac rhythm monitoring and a 2-D echocardiogram with Dopplers. Given Lasix 80 mg IV in the ED, and will continue Lasix 80 mg IV twice daily. Continue carvedilol 12.5 mg p.o. twice daily, clonidine 0.1 mg p.o. twice daily, amlodipine 10 mg p.o. daily and hydralazine 100 mg p.o. 3 times daily. We will leave it to nephrology to address medication adjustment to minimize lower extremity edema and body fluid overload. Continue aspirin 81 mg daily and clopidogrel 75 mg daily. Present on Admission?: Yes (3) CAD (coronary artery disease): See above Present on Admission?: Yes (4) (HFpEF) heart failure with preserved ejection fraction: See above Present on Admission?: Yes (5) Chronic kidney disease, stage 4 (severe): Monitor laboratories while diuresing for fluid overload. We will consult Dr. Tobias Richard, whom he has an appointment with in the near future in the outpatient setting. Present on Admission?: Yes (6) HTN (hypertension): See above Present on Admission?: Yes (7) Diabetes mellitus type 2 in obese: Decrease Lantus from 50 to 40 units subcu twice daily. -Accu-Cheks before meals and at bedtime with NovoLog coverage per scale. Present on Admission?: Yes History of Present Illness Chief Complaint: The patient presents to the emergency department with worsening shortness of breath over the past 24 hours. Primary Care Provider: NO PCP The patient is a 68-year-old male with a past medical history including HFpEF, BPH, CAD, depression, diabetes mellitus, CKD stage IV, hypercholesterolemia, hypertension and sleep apnea, who presents to the emergency department with worsening shortness of breath over the past 24 hours. His most recent hospitalization was from 03/10-03/15/2019. He has a pending appointment with Dr. Madsen from nephrology. He has not had any recent travels or sick exposures. He reports taking his medications as directed. He denies any dietary indiscretions. Allergies Allergy/AdvReac Type Severity Reaction Status Date / Time ragweed pollen Allergy Mild [place] Verified 03/29/19 23:29 Home Medications Home Medications Medication Instructions Recorded Confirmed Type Novolog PenFill U-100 Insulin 10 unit SUBCUT AC 01/06/19 03/29/19 History albuterol sulfate 2 puff INHALATION Q6H PRN 01/06/19 03/29/19 History amlodipine 10 mg PO QAM 01/06/19 03/29/19 History atorvastatin 20 mg PO PM 01/06/19 03/29/19 History clonidine HCl 0.1 mg PO BID 01/06/19 03/29/19 History furosemide [Lasix] 80 mg PO BID 01/06/19 03/29/19 History hydralazine 100 mg PO TID 01/06/19 03/29/19 History loratadine 10 mg PO DAILY PRN 01/06/19 03/29/19 History sertraline 25 mg PO QAM 01/06/19 03/29/19 History tamsulosin 0.4 mg PO QAM 01/06/19 03/29/19 History Lantus Solostar U-100 Insulin 50 unit SUBCUT BID 03/06/19 03/29/19 History aspirin [Aspir-81] 81 mg PO DAILY 03/06/19 03/29/19 History carvedilol [Coreg] 12.5 mg PO BID 03/06/19 03/29/19 History clopidogrel [Plavix] 75 mg PO DAILY 03/06/19 03/29/19 History tiotropium bromide [Spiriva with 1 puff INHALATION QAM 30 Days #30 03/13/19 03/29/19 Rx HandiHaler] puffs Past Med/Surg History Medical History Anemia CAD (coronary artery disease) s/p stent 2018 CKD (chronic kidney disease) Stage 4 Diabetes Dyslipidemia HTN (hypertension) (Chronic) Sleep apnea (Chronic) does not use CPAP Surgical History AV fistula Family History Other Hypertension Social History Preferred Language: Slovak Communication Ability: Effective [employer] Required: No Beliefs That Will Affect Care: None marital status: Current Living Situation: Alone Feels Safe at Home: Yes Safety Concerns: Feels Safe At This Time Smoking Status: Current every day smoker Tobacco Type: cigars ; Cigarettes Per Day: one cigar every so often, less than one a month usually ; Do You Dip or Chew Tobacco: No ; Second Hand Exposure: No ; Hx Alcohol Use: Yes Alcohol type: beer Hx Substance Use: No Review of Systems Review of Systems: The patient denies chest pain, palpitations, cough, sore throat, fevers, chills, sweats, nausea, vomiting, diarrhea , constipation, abdominal pain, pelvic pain, blood in urine or stool, dysuria, urinary frequency or urgency, lightheadedness, dizziness, headache, memory loss, loss of consciousness, rash, abnormal bruising or bleeding, imbalance, focal or generalized weakness, numbness or tingling in arms, generalized arthralgias or myalgias, back or neck pain, or night sweats. The review of systems is otherwise negative other than for that already noted above, and at least 10 systems have been reviewed. Physical Exam 2 Physical Exam: The patient is awake, alert and oriented 3, normocephalic and atraumatic, sitting upright in bed and in no acute distress. HEENT--PERRL, EOMI, mucous membranes and oropharynx normal. Neck--supple. No JVD. No bruits. Thyroid normal, trachea midline, no adenopathy. Heart--normal S1 and S2. No murmurs, rubs or gallops. Lungs--crackles at the bases bilaterally. No respiratory distress, no accessory muscle use. Abdomen--normal bowel sounds and soft. Nontender. Nondistended. Morbidly obese Extremities--no cyanosis or clubbing. 3+ bilateral pretibial and pedal pitting edema. Dermatologic--normal skin turgor, normal color, no abnormal lymph nodes, no rash. Neurologic--cranial nerves II through XII grossly intact. Rheumatologic--normal range of motion. Psychiatric--normal affect. Results & Data Vital Signs (Past 12 Hours) Vital Signs Temp Pulse Pulse Resp BP BP Pulse Ox 03/30/19 03:32 61 20 158/68 H 90 03/30/19 02:31 90 03/30/19 02:30 126/68 91 03/30/19 02:01 91 03/30/19 02:00 133/64 92 03/30/19 01:30 136/71 03/30/19 01:01 92 03/30/19 01:00 142/71 H 89 L 03/30/19 00:31 58 L 91 03/30/19 00:30 58 L 138/66 92 03/30/19 00:13 124/62 93 03/30/19 00:11 92 H 93 03/29/19 22:31 92 03/29/19 22:30 54 L 125/67 94 03/29/19 22:16 51 L 94 03/29/19 22:15 52 L 140/69 94 03/29/19 22:00 53 L 91 03/29/19 21:34 53 L 18 93 03/29/19 21:20 93 03/29/19 21:04 93 03/29/19 20:50 97.3 F L 57 L 18 129/54 L 93 03/29/19 20:47 52 L 129/54 L 94 Laboratory Results Laboratory Results WBC 10.46 K/uL (4.8-10.8) 03/29/19 21:35 RBC 3.51 M/uL (4.7-6.1) L 03/29/19 21:35 Hgb 9.4 g/dL (14.0-18.0) L 03/29/19 21:35 Hct 30.6 % (42-52) L 03/29/19 21:35 MCV 87.2 fL (80-100) 03/29/19 21:35 MCH 26.8 pg (25-34) 03/29/19 21:35 MCHC 30.7 g/dL (32-36) L 03/29/19 21:35 RDW Std Deviation 53.3 fL (36.4-46.3) H 03/29/19 21:35 RDW Coeff of Atif 16.8 % (11.5-14.5) H 03/29/19 21:35 Plt Count 231 K/uL (130-400) 03/29/19 21:35 MPV 10.1 fL (7.4-10.4) 03/29/19 21:35 Immature Gran % (Auto) 0.2 % 03/29/19 21:35 Neut % (Auto) 80.7 % 03/29/19 21:35 Lymph % (Auto) 6.0 % 03/29/19 21:35 [place] % (Auto) 11.9 % 03/29/19 21:35 Eos % (Auto) 1.1 % 03/29/19 21:35 Baso % (Auto) 0.1 % 03/29/19 21:35 Immature Gran # (Auto) 0.02 K/uL (0.00-0.02) 03/29/19 21:35 Neut # (Auto) 8.45 K/uL (1.4-6.5) H 03/29/19 21:35 Lymph # (Auto) 0.63 K/uL (1.2-3.4) L 03/29/19 21:35 [place] # (Auto) 1.24 K/uL (0.11-0.59) H 03/29/19 21:35 Eos # (Auto) 0.11 K/uL (0-0.5) 03/29/19 21:35 Baso # (Auto) 0.01 K/uL (0-0.2) 03/29/19 21:35 Sodium 140 mmol/L (136-145) 03/29/19 21:35 Potassium 4.0 mmol/L (3.5-5.1) 03/29/19 21:35 Chloride 101 mmol/L (98-107) 03/29/19 21:35 Carbon Dioxide 31 mmol/L (21-32) 03/29/19 21:35 Anion Gap 8.0 (3-11) 03/29/19 21:35 BUN 82 mg/dl (7-18) H 03/29/19 21:35 Creatinine 4.05 mg/dl (0.6-1.4) H 03/29/19 21:35 Est Cr Clr Drug Dosing 25.1 ml/min 03/29/19 21:35 Est GFR ( Amer) 16.7 03/29/19 21:35 Est GFR (Non-Af Amer) 14.4 03/29/19 21:35 BUN/Creatinine Ratio 20.2 (10-20) H 03/29/19 21:35 Glucose 201 mg/dl (70-99) H 03/29/19 21:35 POC Glucose 186 (70-99) H 03/30/19 03:52 Calcium 8.4 mg/dl (8.5-10.1) L 03/29/19 21:35 Total Bilirubin 0.5 mg/dl (0.2-1) 03/29/19 21:35 AST 18 U/L (15-37) 03/29/19 21:35 ALT 24 U/L (12-78) 03/29/19 21:35 Alkaline Phosphatase 59 U/L (45-117) 03/29/19 21:35 Total Creatine Kinase 74 U/L (39-308) 03/29/19 21:35 CK-MB (CK-2) < 1.0 ng/ml (0.5-3.6) 03/29/19 21:35 CK/CKMB % Calc TNP 03/29/19 21:35 Troponin I < 0.015 ng/ml (0-0.045) 03/29/19 21:35 NT-Pro-B Natriuret Pep 4690 pg/ml (0-900) H 03/29/19 21:35 Total Protein 7.5 gm/dl (6.4-8.2) 03/29/19 21:35 Albumin 3.3 gm/dl (3.4-5.0) L 03/29/19 21:35 Globulin 4.2 gm/dl (2.5-4.0) H 03/29/19 21:35 Albumin/Globulin Ratio 0.8 (0.9-2) L 03/29/19 21:35 Lipase 160 U/L (73-393) 03/29/19 21:35 Urine Color Yellow 03/30/19 00:22 Urine Appearance Clear (Clear) 03/30/19 00:22 Urine pH 5.0 (4.5-7.5) 03/30/19 00:22 Ur Specific [place] 1.017 (1.000-1.030) 03/30/19 00:22 Urine Protein Negative (Negative) 03/30/19 00:22 Urine Glucose (UA) Negative (Negative) 03/30/19 00: Urine Ketones Negative (Negative) 03/30/19 00: Urine Blood Negative (Negative) 03/30/19 00: Urine Nitrite Negative (Negative) 03/30/19 00:22 Urine Bilirubin Negative (Negative) 03/30/19 00:22 Urine Urobilinogen Negative (Negative) 03/30/19 00:22 Ur Leukocyte Esterase Negative (Negative) 03/30/19 00:22 Ethyl Alcohol mg/dL < 3.0 mg/dl (0-3) 03/29/19 21:35 Diagnostic Findings [place], [place] [phone] XRay Report Patient: LYNN BENZ Date: 03/29/19 MR#: [id number] Acct ID:[id number]: Date: [address] [place] [address] Zip: [place] [address] Age: 68Location: ED Sex: M Room/Bed: Att Phy:Diagnosis: SOB [place] Phy: PCP,NOService Date: 03/29/19 Fam Phy: PCP,NOInterpreting Phy: Etienne Valerio MD Admit Phy: Ordering Phy: Tobias Arita MD cc: ~ XR chest 1V portable CLINICAL HISTORY: Atypical chest pain COMPARISON STUDY: 03/10/2019 FINDINGS: The heart remains enlarged. Small pleural effusions are suspected. There are bilateral pulmonary airspace opacities likely representing pulmonary edema although a bilateral infectious/inflammatory processes could appear similar.[ IMPRESSION: Cardiomegaly and pulmonary edema pattern. Clinical and radiographic follow-up is recommended. Electronically signed by: Etienne Valerio M.D. 03/29/2019 9:44 PM Dictated: 03/29/192142 Transcribed: 03/29/192142 Code Status & VTE Plan Code Status Full code VTE Prophylaxis Plan VTE Prophylaxis will be ordered: Yes PG Care Time/CCT Total # of Minutes Spent Total Time Spent with Patient: Total time spent is greater than 50% in coordination of care (as documented) at patient's floor/unit and/or counseling patient: (1) CHF exacerbation Heart failure type: unspecified Qualified Code(s): I50.9 - Heart failure, unspecified (2) CAD (coronary artery disease) Coronary Disease-Associated Artery/Lesion type: [place] artery [place] vs. transplanted heart: [place] heart Associated angina: without angina Qualified Code(s): I25.10 - Atherosclerotic heart disease of [place] coronary artery without angina pectoris (3) HTN (hypertension) Hypertension type: essential hypertension Qualified Code(s): I10 - Essential (primary) hypertension
--- NOTE | 2019-03-30 07:15 | Ultrasound Report ---
ABDOMINAL ULTRASOUND, RIGHT UPPER QUADRANT HISTORY: Pt c/o RUQ abd pain. COMPARISON: Abdomen and pelvis CT 03/29/2019. FINDINGS: Pancreas: The pancreatic head and tail are obscured by overlying bowel gas. The remaining portions of the pancreas are within normal limits. Liver: The liver is echogenic consistent with fatty change. 21 cm in length. Gallbladder: The gallbladder is contracted. There is mild edema within the gallbladder wall adjacent to the hepatic surface. No gallstones. CBD: 8 mm. Right kidney: No hydronephrosis. IMPRESSION: 1. Contracted gallbladder demonstrating mild edematous and thickened wall adjacent to the hepatic bertha face. This is likely chronic. No gallstones. 2. Hepatomegaly demonstrating fatty change. 3. The common bile duct measures 8 mm in diameter. Electronically signed by: Delfin Chan M.D. 03/30/2019 7:14 AM
[2019-03-30 07:18] LABS: Estimated Average Glucose 151 mg/dl; Hemoglobin A1C 6.9 % (4.5-5.6)
[2019-03-30 07:35] LABS: Calcium 8.3 mg/dl (8.5-10.1); Creatinine Clr Calc Pharmacy 24.1 ml/min; Est GFR (African American) 16.4; Est GFR (Non-African American) 14.1; Potassium 3.7 mmol/L (3.5-5.1)
--- NOTE | 2019-03-30 07:52 | CT Scan Report ---
ABDOMEN AND PELVIS CT WITHOUT CONTRAST CT DOSE: 2018.34 mGy.cm HISTORY: Pt c/o RUQ abd pain TECHNIQUE: Multiaxial CT images of the abdomen and pelvis were performed without contrast. A dose lo wering technique was utilized adhering to the principles of ALARA. COMPARISON STUDY: Abdomen and pelvis CT 02/21/2015. FINDINGS: Small bilateral pleural effusions, right greater than left. The heart is mildly enlarged. P atchy groundglass densities within the lung bases as well as focal areas of consolidation within the lower lobes posteriorly. This could represent a combination of atelectasis and pneumonia. No pneumope ritoneum. No pneumatosis. No suspicious lytic are blastic osseous lesions. The gallbladder is contrac vlad and there is diffuse gallbladder wall thickening. The unenhanced liver, pancreas, spleen, adrenal glands unremarkable. No renal or ureteral stones. No hydronephrosis. Left renal hypodense lesion is incompletely characterized on this noncontrast study but favors a cyst. This measures 2 cm. Small foc us of inflammatory change medial to the left hepatic lobe on image 112. This is of uncertain clinical significance. Large fat-containing umbilical hernia demonstrating mild fat stranding. This could rep resent small areas of fat necrosis/infarction. This has slightly progressed. The hernia sac measures 10 cm. The prostate gland is enlarged. The bladder is within normal limits. No retroperitoneal lympha denopathy. Mild inflammatory change surrounding the gallbladder. Suboptimal evaluation for bowel path ology due to the lack of intravenous and oral contrast. However, there is no definite bowel wall thic kening or obstruction. Normal appendix. IMPRESSION: 1. Gallbladder is contracted and there is diffuse gallbladder wall thickening. There is mild inflamma tory change surrounding the gallbladder and adjacent to the left hepatic lobe. This could represent a n acute cholecystitis or possibly an underlying hepatitis. Clinical correlation recommended. Follow-u p HIDA scan could also be performed for further evaluation. 2. Large fat-containing umbilical hernia. Mild fat stranding within the hernia sac. This could repres ent small areas of fat necrosis/infarction. 3. Small bilateral pleural effusions. 4. Patchy densities within the lung bases are nonspecific but could represent a combination of atelec tasis and pneumonia. 5. Additional findings as described above. Electronically signed by: Delfin Chan M.D. 03/30/2019 7:51 AM
[2019-03-30] MEDS: TIOTROPIUM BROMIDE 5 PUFF/90 MCG INH INH SCH (08:10)
[2019-03-30] MEDS: TAMSULOSIN HCL 0.4 MG CAP PO SCH (08:12)
[2019-03-30] MEDS: CLOPIDOGREL BISULFATE 75 MG TAB PO SCH (08:12)
[2019-03-30] MEDS: HydrALAZINE TAB 50 MG TAB PO SCH ×3 (08:13→20:50)
[2019-03-30] MEDS: cloNIDine HCL 0.1 MG TAB PO SCH ×2 (08:13→20:50)
[2019-03-30] MEDS: AMLODIPINE BESYLATE 5 MG TAB PO SCH (08:13)
[2019-03-30] MEDS: carvediloL 12.5 MG TAB PO SCH ×2 (08:13→20:50)
[2019-03-30] MEDS: ASPIRIN 81 MG ECTAB PO SCH (08:13)
[2019-03-30] MEDS: SERTRALINE HCL 50 MG TABLET PO SCH (08:13)
[2019-03-30] MEDS: FUROSEMIDE 80 MG in SYRINGE 0 ML IV SCH ×2 (08:14→20:49)
[2019-03-30] MEDS: INSULIN ASPART 100 UNITS/ML 3 ML PEN SC SCH ×7 (08:23→21:40)
[2019-03-30] MEDS: INSULIN GLARGINE SOLOSTAR 100 UNITS/ML 3 ML PEN SQ SCH ×2 (08:24→21:42)
[2019-03-30] MEDS ORDERED: FUROSEMIDE 40 MG/4 ML VIAL IV SCH (09:00)
--- NOTE | 2019-03-30 12:16 | Nephrology Consultation ---
Date of Consultation March 30, 2019 Assessment & Plan (1) CHF exacerbation: There has been notable clinical improvement following IV Lasix yesterday. The patient's presentation is consistent with multiple prior similar admissions. I suspect that his underlying advanced chronic kidney disease is the primary driving factor combined with with the patient admits is a high sodium diet. Thankfully urine output has been acceptable. Patient is responding to diuretics. He is aware that ultimately dialysis may be necessary to continue to manage his volume status. However there is no emergent indication to start at this time. (2) CAD (coronary artery disease): Patient appears to be optimized in terms of cardiovascular medications. SUZANNE-inhibitor or ARB have been deferred given his advanced renal dysfunction. He is tolerating current medications well. He has more than adequately beta blocked. (3) (HFpEF) heart failure with preserved ejection fraction: I suspect larger driving factor for his fluid retention is his underlying advanced chronic kidney disease at this time. (4) HTN (hypertension): Blood pressure currently well controlled. No change in medications at this time. (5) CKD (chronic kidney disease), stage V: There is no need for urgent dialysis at this time. I confirmed with the Nephrology fellow urban design consultant at the [facility] that the patient's AV fistula is not yet appropriate for use. It will require a revision procedure with vascular surgery. Unfortunately this is currently not scheduled until May. In the interim, the patient has had multiple hospitalizations with recurrent fluid retention. He is aware that ultimately dialysis may be necessary to temporize the situation. We do not currently have availability to place a PermCath for dialysis on the weekend at [facility]. The plan of care today will be to continue IV diuretics can to encourage a negative fluid balance. Input and output will be strictly documented. Metabolic profile will be monitored daily. Depending on the patient's progress over the weekend, arrangements for PermCath placement and transition to end-stage renal disease requiring dialysis can then be made as needed. Angel is agreeable with this plan of care. Electrolytes are acceptable. Medications are appropriately dosed for kidney function. (6) Anemia: 69053 units of Epogen provided today. I will check iron profile with morning blood work. History of Present Illness Reason for Consultation: NOMAN/CKD Requesting Physician: Alli Manzo DO Attending Physician: Alli Manzo DO History of Present Illness Angel Solorio is a 68-year-old male with chronic kidney disease V who is not yet on hemodialysis. Patient is well known from prior admission. He follows with Nephrology the [facility] in [place]. I spoke to the Nephrology fellow urban design consultant today. CKD has been attributed to diabetes and hypertension. This is the patient's 3rd admission with acute on chronic respiratory complaints in the past few months. Medical history is notable for hypertension, diabetes mellitus, obstructive sleep apnea, morbid obesity, and chronic diastolic congestive heart failure. Angel was admitted to the hospital with acute respiratory failure attributed to acute on chronic congestive heart failure. Nephrology consult was requested to manage acute kidney injury with history of underlying advanced CKD. The patient had a very similar admission in December of 2018 as well as 2 similar admissions in February of 2019. Angel states he believes this is related to his diet. He notes that he does eat a lot high sodium foods because food options are limited for financial constraints. He has been adherent with medications at home. He has not been on an SUZANNE-inhibitor or ARB. Angel presented to the hospital acute shortness of breath and edema which were progressive over several days prior to admission. He has already noted significant improvement. He denies any change in urine output. His weight of 128 kilograms is near his baseline weight of 126 kilograms that he was able to reach during his prior admission. Weight on admission yesterday was 134 kilograms. Input and output has not been strictly documented. Patient's blood pressure is normal. 80 milligrams of IV furosemide were provided yesterday evening. He has stage V CKD, baseline creatinine has been approximately 3.5 mg/dL. He has a moderate degree proteinuria. CKD has been attributed to hypertensive nephropathy. He never had a kidney biopsy. No family history of chronic kidney disease or end-stage renal disease. Denies chronic NSAID use. He has right brachiocephalic AV fistula placed in November. This was part of a 2 step procedure. Angel follows with [facility] in [place]. The revision procedure with transposition is scheduled for May. Patient is also actively listed for kidney transplant at the [facility]. Based on prior conversations the patient would have dialysis performed locally at the [facility] unit in [facility] if he were need to start. Allergies Allergy/AdvReac Type Severity Reaction Status Date / Time ragweed pollen Allergy Mild [place] Verified 03/29/19 23:29 Home Medications Home Medications Medication Instructions Recorded Confirmed Type Novolog PenFill U-100 Insulin 10 unit SUBCUT AC 08/25/19 11/15/19 History albuterol sulfate 2 puff INHALATION Q6H PRN 01/06/19 03/29/19 History amlodipine 10 mg PO QAM 01/06/19 03/29/19 History atorvastatin 20 mg PO PM 01/06/19 03/29/19 History clonidine HCl 0.1 mg PO BID 01/06/19 03/29/19 History furosemide [Lasix] 80 mg PO BID 01/06/19 03/29/19 History hydralazine 100 mg PO TID 01/06/19 03/29/19 History loratadine 10 mg PO DAILY PRN 01/06/19 03/29/19 History sertraline 25 mg PO QAM 01/06/19 03/29/19 History tamsulosin 0.4 mg PO QAM 01/06/19 03/29/19 History Lantus Solostar U-100 Insulin 50 unit SUBCUT BID 03/06/19 03/29/19 History aspirin [Aspir-81] 81 mg PO DAILY 03/06/19 03/29/19 History carvedilol [Coreg] 12.5 mg PO BID 03/06/19 03/29/19 History clopidogrel [Plavix] 75 mg PO DAILY 03/06/19 03/29/19 History tiotropium bromide [Spiriva with 1 puff INHALATION QAM 30 Days #30 03/13/19 03/29/19 Rx HandiHaler] puffs Patient History Medical History Anemia CAD (coronary artery disease) s/p stent 2018 CKD (chronic kidney disease) Stage 4 Diabetes Dyslipidemia HTN (hypertension) (Chronic) Sleep apnea (Chronic) does not use CPAP Surgical History AV fistula Family History Other Hypertension Social History Preferred Language: [place] Communication Ability: Effective Parking Control Officer Required: No Beliefs That Will Affect Care: None marital status: Current Living Situation: Alone Feels Safe at Home: Yes Safety Concerns: Feels Safe At This Time Smoking Status: Current every day smoker Tobacco Type: cigars ; Cigarettes Per Day: one cigar every so often, less than one a month usually ; Do You Dip or Chew Tobacco: No ; Second Hand Exposure: No ; Hx Alcohol Use: Yes Alcohol type: beer Hx Substance Use: No Review of Systems Review of Systems: All systems reviewed & are unremarkable except as noted in HPI & below Physical Exam Constitutional: well developed and + morbidly obese; no acute distress Eyes: no scleral abnormality and no corneal abnormality ENMT: Mouth: no oral mucosal abnormality and oral mucous membranes not dry Neck: normal visual inspection and trachea midline Respiratory: normal respiratory effort Auscultation: lungs clear to auscultation bilaterally Cardiovascular: Rate/Rhythm: regular rate Heart Sounds: normal S1 and normal S2 Vessels: + JVD Extremities: + AV fistula; no edema Gastrointestinal (Abdomen): Percussion/Palpation: abdomen soft; abdomen nontender Musculoskeletal: Extremities: no cyanosis and no clubbing Skin: normal turgor; no lesions Neurologic: Motor/Sensory: no tremor and no asterixis Psychiatric: Orientation: alert and oriented x 3 Results & Data Vital Signs (Past 12 Hours) Vital Signs Temp Pulse Pulse Resp BP BP Pulse Ox 03/30/19 07:49 36.7 C 59 L 18 133/63 92 03/30/19 03:32 36.4 C L 61 20 158/68 H 90 03/30/19 02:31 90 03/30/19 02:30 126/68 91 03/30/19 02:01 91 03/30/19 02:00 133/64 92 03/30/19 01:30 136/71 03/30/19 01:01 92 03/30/19 01:00 142/71 H 89 L 03/30/19 00:31 58 L 91 03/30/19 00:30 58 L 138/66 92 Laboratory Results Laboratory Results - last 24 hr 03/29/19 03/29/19 03/29/19 21:35 21:35 21:35 WBC 10.46 RBC 3.51 L Hgb 9.4 L Hct 30.6 L MCV 87.2 MCH 26.8 MCHC 30.7 L RDW Std Deviation 53.3 H RDW Coeff of Atif 16.8 H Plt Count 231 MPV 10.1 Immature Gran % (Auto) 0.2 Neut % (Auto) 80.7 Lymph % (Auto) 6.0 Nye % (Auto) 11.9 Eos % (Auto) 1.1 Baso % (Auto) 0.1 Immature Gran # (Auto) 0.02 Neut # (Auto) 8.45 H Lymph # (Auto) 0.63 L Nye # (Auto) 1.24 H Eos # (Auto) 0.11 Baso # (Auto) 0.01 Sodium 140 Potassium 4.0 Chloride 101 Carbon Dioxide 31 Anion Gap 8.0 BUN 82 H Creatinine 4.05 H Est Cr Clr Drug Dosing 25.1 Est GFR ( Amer) 16.7 Est GFR (Non-Af Amer) 14.4 BUN/Creatinine Ratio 20.2 H Glucose 201 H POC Glucose Estimat Average Glucose Hemoglobin A1c Calcium 8.4 L Total Bilirubin 0.5 AST 18 ALT 24 Alkaline Phosphatase 59 Total Creatine Kinase 74 CK-MB (CK-2) < 1.0 CK/CKMB % Calc TNP Troponin I < 0.015 NT-Pro-B Natriuret Pep 4690 H Total Protein 7.5 Albumin 3.3 L Globulin 4.2 H Albumin/Globulin Ratio 0.8 L Lipase 160 Urine Color Urine Appearance Urine pH Ur Specific [place] Urine Protein Urine Glucose (UA) Urine Ketones Urine Blood Urine Nitrite Urine Bilirubin Urine Urobilinogen Ur Leukocyte Esterase Ethyl Alcohol mg/dL < 3.0 03/30/19 03/30/19 03/30/19 00:22 03:52 06:24 WBC RBC Hgb Hct MCV MCH MCHC RDW Std Deviation RDW Coeff of Atif Plt Count MPV Immature Gran % (Auto) Neut % (Auto) Lymph % (Auto) Nye % (Auto) Eos % (Auto) Baso % (Auto) Immature Gran # (Auto) Neut # (Auto) Lymph # (Auto) Nye # (Auto) Eos # (Auto) Baso # (Auto) Sodium 140 Potassium 3.7 Chloride 102 Carbon Dioxide 30 Anion Gap 8.0 BUN 82 H Creatinine 4.11 H Est Cr Clr Drug Dosing 24.1 Est GFR ( Amer) 16.4 Est GFR (Non-Af Amer) 14.1 BUN/Creatinine Ratio 20.0 Glucose 160 H POC Glucose 186 H Estimat Average Glucose Hemoglobin A1c Calcium 8.3 L Total Bilirubin AST ALT Alkaline Phosphatase Total Creatine Kinase CK-MB (CK-2) CK/CKMB % Calc Troponin I NT-Pro-B Natriuret Pep Total Protein Albumin Globulin Albumin/Globulin Ratio Lipase Urine Color Yellow Urine Appearance Clear Urine pH 5.0 Ur Specific [place] 1.017 Urine Protein Negative Urine Glucose (UA) Negative Urine Ketones Negative Urine Blood Negative Urine Nitrite Negative Urine Bilirubin Negative Urine Urobilinogen Negative Ur Leukocyte Esterase Negative Ethyl Alcohol mg/dL 03/30/19 03/30/19 03/30/19 06:24 07:26 11:16 WBC RBC Hgb Hct MCV MCH MCHC RDW Std Deviation RDW Coeff of Atif Plt Count MPV Immature Gran % (Auto) Neut % (Auto) Lymph % (Auto) Nye % (Auto) Eos % (Auto) Baso % (Auto) Immature Gran # (Auto) Neut # (Auto) Lymph # (Auto) Nye # (Auto) Eos # (Auto) Baso # (Auto) Sodium Potassium Chloride Carbon Dioxide Anion Gap BUN Creatinine Est Cr Clr Drug Dosing Est GFR ( Amer) Est GFR (Non-Af Amer) BUN/Creatinine Ratio Glucose POC Glucose 188 H 118 H Estimat Average Glucose 151 Hemoglobin A1c 6.9 H Calcium Total Bilirubin AST ALT Alkaline Phosphatase Total Creatine Kinase CK-MB (CK-2) CK/CKMB % Calc Troponin I NT-Pro-B Natriuret Pep Total Protein Albumin Globulin Albumin/Globulin Ratio Lipase Urine Color Urine Appearance Urine pH Ur Specific [place] Urine Protein Urine Glucose (UA) Urine Ketones Urine Blood Urine Nitrite Urine Bilirubin Urine Urobilinogen Ur Leukocyte Esterase Ethyl Alcohol mg/dL PG Care Time/CCT Total # of Minutes Spent Total Time Spent with Patient: Total time spent is greater than 50% in coordination of care (as documented) at patient's floor/unit and/or counseling patient: (1) CHF exacerbation Heart failure type: unspecified Qualified Code(s): I50.9 - Heart failure, unspecified (2) CAD (coronary artery disease) Coronary Disease-Associated Artery/Lesion type: [place] artery [place] vs. transplanted heart: [place] heart Associated angina: without angina Qualified Code(s): I25.10 - Atherosclerotic heart disease of [place] coronary artery without angina pectoris (3) HTN (hypertension) Hypertension type: essential hypertension Qualified Code(s): I10 - Essential (primary) hypertension (4) Anemia Anemia type: unspecified type Qualified Code(s): D64.9 - Anemia, unspecified
[2019-03-30] MEDS ORDERED: EPOETIN ALFA 20,000 UNITS/ML VIAL SQ ONE ×2 (12:30→21:30)
[2019-03-30] MEDS ORDERED: FUROSEMIDE 80 MG in SYRINGE 0 ML IV ONE (12:45)
[2019-03-30] MEDS ORDERED: FUROSEMIDE 80 MG TAB PO SCH (17:00)
--- NOTE | 2019-03-30 17:13 | Communication Note ---
Date of Service: March 30, 2019 seen in f/u from early AM admit. feeling OK. d/w nephro extensively. pt OK w proceeding for HD. continue current care, appearing stable.
[2019-03-30] MEDS: ATORVASTATIN 20 MG TAB PO SCH (20:51)
--- NOTE | 2019-03-31 00:42 | Emergency Department Note ---
Entered by Telma Gandhi acting as a scribe for Tobias Arita MD History of Present Illness General Chief complaint: Abdominal Pain Stated complaint: SOB Time Seen by Provider: 03/29/19 21:09 Source: patient History of Present Illness Provider complaint: abdominal pain Onset (ago): day(s) (several days) Location: abdomen and right Radiation: non-radiation Pain Consistency: + other (persistent ) Maximum Pain Intensity: 7 Exacerbated By: + movement Associated symptoms: + shortness of breath The patient is a 68 year old male who presents to the Emergency Room with complaints of persistent right upper abdominal pain for the past several days. He notes that when he moves he has worsening pain and increased shortness of breath. He states that he wears oxygen at home. He denies any past abdominal whitney rgeries. He mentions that he will be on dialysis soon. Home Medications Home Medications Medication Instructions Recorded Confirmed Type Novolog PenFill U-100 Insulin 10 unit SUBCUT AC 01/06/19 03/29/19 History albuterol sulfate 2 puff INHALATION Q6H PRN 01/06/19 03/29/19 History amlodipine 10 mg PO QAM 01/06/19 03/29/19 History atorvastatin 20 mg PO PM 01/06/19 03/29/19 History clonidine HCl 0.1 mg PO BID 01/06/19 03/29/19 History furosemide [Lasix] 80 mg PO BID 01/06/19 03/29/19 History hydralazine 100 mg PO TID 01/06/19 03/29/19 History loratadine 10 mg PO DAILY PRN 01/06/19 03/29/19 History sertraline 25 mg PO QAM 01/06/19 03/29/19 History tamsulosin 0.4 mg PO QAM 01/06/19 03/29/19 History Lantus Solostar U-100 Insulin 50 unit SUBCUT BID 03/06/19 03/29/19 History aspirin [Aspir-81] 81 mg PO DAILY 03/06/19 03/29/19 History carvedilol [Coreg] 12.5 mg PO BID 03/06/19 03/29/19 History clopidogrel [Plavix] 75 mg PO DAILY 03/06/19 03/29/19 History tiotropium bromide [Spiriva with 1 puff INHALATION QAM 30 Days #30 03/13/19 03/29/19 Rx HandiHaler] puffs Allergies Allergy/AdvReac Type Severity Reaction Status Date / Time ragweed pollen Allergy Mild CONGE[place]ON Verified 03/29/19 23:29 Past Med/Surg History Medical History Anemia CAD (coronary artery disease) s/p stent 2018 CKD (chronic kidney disease) Stage 4 Diabetes Dyslipidemia HTN (hypertension) (Chronic) Sleep apnea (Chronic) does not use CPAP Surgical History AV fistula Family History Other Hypertension Social History Preferred Language: Occitan Communication Ability: Effective Jack Strip Assembler Required: No Beliefs That Will Affect Care: None marital status: Current Living Situation: Alone Feels Safe at Home: Yes Safety Concerns: Feels Safe At This Time Smoking Status: Current every day smoker Tobacco Type: cigars ; Cigarettes Per Day: one cigar every so often, less than one a month usually ; Do You Dip or Chew Tobacco: No ; Second Hand Exposure: No ; Hx Alcohol Use: Yes Alcohol type: beer Hx Substance Use: No Review of Systems See HPI for pertinent positives & negatives. and A total of 10 systems reviewed and were otherwise negative Physical Exam Vital Signs Vital Signs - 24 hr 03/30/19 01:00 03/30/19 01:01 03/30/19 01:30 Pulse Rate from SpO2 Sensor 59 L 60 61 Blood Pressure 142/71 H 136/71 Blood Pressure Mean 91 98 Pulse Oximetry 89 L 92 03/30/19 01:31 Pulse Rate from SpO2 Sensor 60 Blood Pressure Blood Pressure Mean Pulse Oximetry GENERAL: Awake, alert, well-appearing, in no acute distress HENT: Normocephalic, atraumatic. Oropharynx unremarkable. EYES: Normal conjunctiva. Sclera non-icteric. NECK: Supple. No nuchal rigidity. FROM. No JVD. RESPIRATORY: Clear to auscultation. CARDIAC: Regular rate, normal rhythm. Extremities warm and well perfused. Pulses equal. ABDOMEN: Soft, non-distended. Right upper quadrant tenderness to palpation. No rebound or guarding. No masses. RECTAL: Deferred. MUSCULOSKELETAL: Chest examination reveals no tenderness. The back is symmetrical on inspection without obvious abnormality. There is no CVA ten derness to palpation. No joint edema. LOWER EXTREMITIES: Calves are equal size bilaterally and non-tender. No edema. No discoloration. NEURO: Normal sensorium. No sensory or motor deficits noted. SKIN: No rash or jaundice noted. Course Course 2114: The patient was evaluated in room C4, and a complete history and physical examination were performed. 0041: I reviewed the patient's case with Dr. Hercules- [facility] Hospitalist. He will evaluate the patient for further management. Administered Medications Amlodipine Besylate (Norvasc) 10 mg PO QAM ANTONY Stop: 04/29/19 08:59 Last Admin: 03/30/19 08:13 Dose: 10 mg Documented by: [id number] Aspirin (Ecotrin Ectab) 81 mg PO DAILY ANTONY Stop: 04/29/19 08:59 Last Admin: 03/30/19 08:13 Dose: 81 mg Documented by: [id number] Atorvastatin Calcium (Lipitor) 20 mg PO PM ANTONY Stop: 04/29/19 20:59 Last Admin: 03/30/19 20:51 Dose: 20 mg Documented by: [id number] Carvedilol (Coreg) 12.5 mg PO BID ANTONY Stop: 04/29/19 08:59 Last Admin: 03/30/19 20:50 Dose: 12.5 mg Documented by: [id number] Admin: 03/30/19 08:13 Dose: 12.5 mg Documented by: [id number] Clonidine HCl (Catapres) 0.1 mg PO BID ANTONY Stop: 04/29/19 08:59 Last Admin: 03/30/19 20:50 Dose: 0.1 mg Documented by: [id number] Admin: 03/30/19 08:13 Dose: 0.1 mg Documented by: [id number] Clopidogrel Bisulfate (Plavix) 75 mg PO DAILY ANTONY Stop: 04/29/19 08:59 Last Admin: 03/30/19 08:12 Dose: 75 mg Documented by: [id number] Heparin Sodium (Porcine) (Heparin Sodium (Porcine)) 5,000 units SQ Q8 ANTONY Stop: 04/29/19 05:59 Last Admin: 03/30/19 21:39 Dose: 5,000 units Documented by: [id number] Cosigned by: [id number] Admin: 03/30/19 14:34 Dose: 5,000 units Documented by: [id number] Cosigned by: [id number] Admin: 03/30/19 05:34 Dose: 5,000 units Documented by: [id number] Cosigned by: [id number] Hydralazine HCl (Apresoline) 100 mg PO TID ANTONY Stop: 04/29/19 08:59 Last Admin: 03/30/19 20:50 Dose: 100 mg Documented by: [id number] Admin: 03/30/19 14:34 Dose: 100 mg Documented by: [id number] Admin: 03/30/19 08:13 Dose: 100 mg Documented by: [id number] Furosemide 80 mg/ Syringe 8 mls @ 4 mls/min IV BID ANTONY Stop: 04/29/19 08:59 Last Admin: 03/30/19 20:49 Dose: 4 mls/min Documented by: [id number] Admin: 03/30/19 08:14 Dose: 4 mls/min Documented by: [id number] Insulin Aspart (Novolog Flexpen) 10 units SC AC ANTONY Stop: 04/29/19 07:29 Last Admin: 03/30/19 17:55 Dose: 10 units Documented by: [id number] Cosigned by: [id number] Admin: 03/30/19 11:59 Dose: 10 units Documented by: [id number] Cosigned by: [id number] Admin: 03/30/19 08:23 Dose: 10 units Documented by: [id number] Cosigned by: [id number] Insulin Aspart (Novolog Flexpen) 0 units SC ACHS ANTONY Stop: 04/29/19 07:29 Last Admin: 03/30/19 21:40 Dose: 3 units Documented by: [id number] Cosigned by: [id number] Admin: 03/30/19 17:55 Dose: Not Given Documented by: [id number] Cosigned by: [id number] Admin: 03/30/19 11:59 Dose: 5 units Documented by: [id number] Cosigned by: [id number] Admin: 03/30/19 08:24 Dose: 5 units Documented by: [id number] Cosigned by: [id number] Insulin Glargine (Lantus Solostar Pen) 40 units SQ BID ANTONY Stop: 04/29/19 08:59 Last Admin: 03/30/19 21:42 Dose: 40 units Documented by: [id number] Cosigned by: [id number] Admin: 03/30/19 08:24 Dose: 40 units Documented by: [id number] Cosigned by: [id number] Sertraline HCl (Zoloft) 25 mg PO QAM [facility] Stop: 04/29/19 08:59 Last Admin: 03/30/19 08:13 Dose: 25 mg Documented by: [id number] Tamsulosin HCl (Flomax) 0.4 mg PO QAM [facility] Stop: 04/29/19 08:59 Last Admin: 03/30/19 08:12 Dose: 0.4 mg Documented by: [id number] Tiotropium [place] (Spiriva) [facility] [place] Stop: 04/29/19 08:59 Last Admin: 03/30/19 08:10 Dose: 1 puffs Documented by: [id number] Discontinued Medications Epoetin Jean (Procrit) 20,000 units SQ ONE ONE Stop: 03/30/19 12:31 Last Admin: 03/30/19 21:34 Dose: Not Given Documented by: [id number] Epoetin Jean (Procrit) 20,000 units SQ ONE ONE Stop: 03/30/19 21:31 Last Admin: 03/30/19 21:39 Dose: 20,000 units Documented by: [id number] Furosemide (Lasix) 80 mg IV NOW STA Stop: 03/29/19 21:58 Last Admin: 03/29/19 22:14 Dose: 80 mg Documented by: [id number] Levalbuterol HCl (Xopenex 1.25mg/3ml Neb) 1.25 mg NEB NOW STA Stop: 03/29/19 21:21 Last Admin: 03/29/19 21:32 Dose: 1.25 mg Documented by: [id number] Medical Decision Making Differential Diagnosis Differential diagnosis: Etiologies such as appendicitis, diverticulitis, PUD, biliary pathology, UTI, pancreatitis, obstruction, mesenteric ischemia, aortic pathology, infections, inflammatory bowel disease, renal colic, as well as others were entertained. Medical Records Attestation: I reviewed the patient's medical records. Home Medications Current Medication List: was personally reviewed by me Laboratory Data Attestation: I reviewed the patient's lab results. Result diagrams: 03/29/19 21:35 03/30/19 06:24 Lab Results 03/29/19 03/29/19 03/29/19 Range/Units 21:35 21:35 21:35 WBC 10.46 (4.8-10.8) K/uL RBC 3.51 L (4.7-6.1) M/uL Hgb 9.4 L (14.0-18.0) g/dL Hct 30.6 L (42-52) % MCV 87.2 (80-100) fL MCH 26.8 (25-34) pg MCHC 30.7 L (32-36) g/dL RDW Std Deviation 53.3 H (36.4-46.3) fL RDW Coeff of Atif 16.8 H (11.5-14.5) % Plt Count 231 (130-400) K/uL MPV 10.1 (7.4-10.4) fL Immature Gran % (Auto) 0.2 % Neut % (Auto) 80.7 % Lymph % (Auto) 6.0 % [place] % (Auto) 11.9 % Eos % (Auto) 1.1 % Baso % (Auto) 0.1 % Immature Gran # (Auto) 0.02 (0.00-0.02) K/uL Neut # (Auto) 8.45 H (1.4-6.5) K/uL Lymph # (Auto) 0.63 L (1.2-3.4) K/uL [place]ney # (Auto) 1.24 H (0.11-0.59) K/uL Eos # (Auto) 0.11 (0-0.5) K/uL Baso # (Auto) 0.01 (0-0.2) K/uL Sodium 140 (136-145) mmol/L Potassium 4.0 (3.5-5.1) mmol/L Chloride 101 (98-107) mmol/L Carbon Dioxide 31 (21-32) mmol/L Anion Gap 8.0 (3-11) BUN 82 H (7-18) mg/dl Creatinine 4.05 H (0.6-1.4) mg/dl Est Cr Clr Drug Dosing 25.1 ml/min Est GFR ( Amer) 16.7 Est GFR (Non-Af Amer) 14.4 BUN/Creatinine Ratio 20.2 H (10-20) Glucose 201 H (70-99) mg/dl Calcium 8.4 L (8.5-10.1) mg/dl Total Bilirubin 0.5 (0.2-1) mg/dl AST 18 (15-37) U/L ALT 24 (12-78) U/L Alkaline Phosphatase 59 (45-117) U/L Total Creatine Kinase 74 (39-308) U/L CK-MB (CK-2) < 1.0 (0.5-3.6) ng/ml CK/CKMB % Calc TNP Troponin I < 0.015 (0-0.045) ng/ml NT-Pro-B Natriuret Pep 4690 H (0-900) pg/ml Total Protein 7.5 (6.4-8.2) gm/dl Albumin 3.3 L (3.4-5.0) gm/dl Globulin 4.2 H (2.5-4.0) gm/dl Albumin/Globulin Ratio 0.8 L (0.9-2) Lipase 160 (73-393) U/L Urine Color Urine Appearance (Clear) Urine pH (4.5-7.5) Ur Specific Morse (1.000-1.030) Urine Protein (Negative) Urine Glucose (UA) (Negative) Urine Ketones (Negative) Urine Blood (Negative) Urine Nitrite (Negative) Urine Bilirubin (Negative) Urine Urobilinogen (Negative) Ur Leukocyte Esterase (Negative) Ethyl Alcohol mg/dL < 3.0 (0-3) mg/dl 03/30/19 Range/Units 00:22 WBC (4.8-10.8) K/uL RBC (4.7-6.1) M/uL Hgb (14.0-18.0) g/dL Hct (42-52) % MCV (80-100) fL MCH (25-34) pg MCHC (32-36) g/dL RDW Std Deviation (36.4-46.3) fL RDW Coeff of Atif (11.5-14.5) % Plt Count (130-400) K/uL MPV (7.4-10.4) fL Immature Gran % (Auto) % Neut % (Auto) % Lymph % (Auto) % [place] % (Auto) % Eos % (Auto) % Baso % (Auto) % Immature Gran # (Auto) (0.00-0.02) K/uL Neut # (Auto) (1.4-6.5) K/uL Lymph # (Auto) (1.2-3.4) K/uL [place]ney # (Auto) (0.11-0.59) K/uL Eos # (Auto) (0-0.5) K/uL Baso # (Auto) (0-0.2) K/uL Sodium (136-145) mmol/L Potassium (3.5-5.1) mmol/L Chloride (98-107) mmol/L Carbon Dioxide (21-32) mmol/L Anion Gap (3-11) BUN (7-18) mg/dl Creatinine (0.6-1.4) mg/dl Est Cr Clr Drug Dosing ml/min Est GFR ( Amer) Est GFR (Non-Af Amer) BUN/Creatinine Ratio (10-20) Glucose (70-99) mg/dl Calcium (8.5-10.1) mg/dl Total Bilirubin (0.2-1) mg/dl AST (15-37) U/L ALT (12-78) U/L Alkaline Phosphatase (45-117) U/L Total Creatine Kinase (39-308) U/L CK-MB (CK-2) (0.5-3.6) ng/ml CK/CKMB % Calc Troponin I (0-0.045) ng/ml NT-Pro-B Natriuret Pep (0-900) pg/ml Total Protein (6.4-8.2) gm/dl Albumin (3.4-5.0) gm/dl Globulin (2.5-4.0) gm/dl Albumin/Globulin Ratio (0.9-2) Lipase (73-393) U/L Urine Color Yellow Urine Appearance Clear (Clear) Urine pH 5.0 (4.5-7.5) Ur Specific [place] 1.017 (1.000-1.030) Urine Protein Negative (Negative) Urine Glucose (UA) Negative (Negative) Urine Ketones Negative (Negative) Urine Blood Negative (Negative) Urine Nitrite Negative (Negative) Urine Bilirubin Negative (Negative) Urine Urobilinogen Negative (Negative) Ur Leukocyte Esterase Negative (Negative) Ethyl Alcohol mg/dL (0-3) mg/dl Imaging Data Radiologist's Impression: Radiology results as stated below per my review and the radiologist's interpretation: XR chest 1V portable CLINICAL HISTORY: Atypical chest pain COMPARISON STUDY: 03/10/2019 FINDINGS: The heart remains enlarged. Small pleural effusions are suspected. There are bilateral pulmonary airspace opacities likely representing pulmonary edema although a bilateral infectious/inflammatory processes could appear similar.[ IMPRESSION: Cardiomegaly and pulmonary edema pattern. Clinical and radiographic follow-up is recommended. Electronically signed by: Etienne Valerio M.D. 03/29/2019 9:[address] ABDOMEN & PELVIS Without Contrast Comparison: CT abdomen and pelvis 02/21/15 Small right and trace left pleural effusions. Bibasilar atelectasis. Groundglass densities at the lung bases may represent pulmonary edema. Contracted gallbladder with gallbladder wall thickening. Cholecystitis is considered unlikely given lack of gallbladder distention. Correlate clinically and consider gallbladder ultrasound as indicated. Liver, spleen, pancreas, adrenal glands are unremarkable. No hydronephrosis or radioplaque urinary stones. Small left kidney cysts. Normal appendix. No obstructive or inflammatory changes of the bowel. Prostatomegaly. Normal urinary bladder. Large fat-containing periumbilical hernia, increased in size from prior exam. Mild stranding/fluid within the herniated fat may represent fat inflammation. No acute osseous findings. Radiologist: Rupinder Perez M.D. Study ready at 2313 and initial results transmitted at 2322. US ABDOMEN LIMITED: Comparison: CT abdomen and pelvis 03/29/19 Gallbladder wall thickening most likely due to contracted state. No sonographic evidence of cholelithiasis, acute cholecystitis, or significant biliary dilation . Enlarged, echogenic liver suggesting steatosis. No hydronephrosis of the right kidney. Radiologist: Rupinder Perez MD Study ready at 0012 and initial results transmitted at 0027. ECG Data Attestation: I personally reviewed and interpreted this ECG as follows: Indication: + abdominal pain Rate (beats per minute): 52 Rhythm: + sinus bradycardia ECG Intervals/blocks: + First degree AV block ECG Findings: + Other (normal QTC, ATC 453) Blood Pressure Blood Pressure Findings: Elevated blood pressure Blood Pressure Disposition: further management by hospitalist CARLOS MANUEL Narrative This is a 68-year-old male who presents emergency department complaining of shortness of breath as well as abdominal pain. Using shared medical decision- making with the patient decision was made to send the patient for CAT scan of the abdomen. Patient's chest x-ray is concerning for pulmonary edema therefore the patient was given 80 mg of Lasix. In addition the patient has chronic kidney failure however his creatinine and has inched up to 4. Based on this of as well as the CHF findings on chest x-ray I did discuss the case with the hospitalist service who did agree to admit the patient. Patient was in agreement with the treatment plan. Impression & Plan NOMAN (acute kidney injury), CHF exacerbation, Hypoxia Discharge Plan Visit Data *Final* Discharge Date/Time: 03/30/19 02:45 Chief Complaint: Abdominal Pain Stated Complaint: SOB ED Provider: Tobias Arita Discharge Problem: NOMAN (acute kidney injury), CHF exacerbation, Hypoxia Patient Disposition: Admitted As Inpatient Discharge Instructions Interventions: ED Discharge Assessment Last Done: 03/30/19 02:45 Discharge Problem: CHF exacerbation Qualifiers: Heart failure type: unspecified Qualified Code(s): I50.9 - Heart failure, unspecified The scribe's documentation has been prepared under my direction and personally reviewed by me in its entirety. I confirm that the note above accurately reflects all work, treatment, procedures, and medical decision making performed by me.
[2019-03-31 05:50] LABS: Hematocrit (blood only) 31.1 % (42-52); Hemoglobin 9.5 g/dL (14.0-18.0); Mean Corpuscular Hemoglobin 26.5 pg (25-34); Mean Corpuscular Hgb Conc 30.5 g/dL (32-36); Mean Corpuscular Volume 86.9 fL (80-100); Mean Platelet Volume 9.8 fL (7.4-10.4); Platelet Count 234 K/uL (130-400); RDW Coefficient of Variation 16.6 % (11.5-14.5); RDW Standard Deviation 52.6 fL (36.4-46.3); Red Blood Count 3.58 M/uL (4.7-6.1); White Blood Count 7.83 K/uL (4.8-10.8)
[2019-03-31] MEDS: HEPARIN SOD 5,000 UNIT/0.5 ML VIAL SQ SCH ×3 (06:09→21:26)
[2019-03-31 06:29] LABS: Albumin Level 3.3 gm/dl (3.4-5.0); BUN Creatinine Ratio 21.6 (10-20); Calcium 8.9 mg/dl (8.5-10.1); Creatinine Clr Calc Pharmacy 26.1 ml/min; Est GFR (African American) 18.1; Est GFR (Non-African American) 15.6; Potassium 3.6 mmol/L (3.5-5.1)
[2019-03-31 06:34] LABS: Ferritin 140.5 ng/ml (8-388); Phosphorus 4.8 mg/dl (2.5-4.9)
[2019-03-31] MEDS: INSULIN GLARGINE SOLOSTAR 100 UNITS/ML 3 ML PEN SQ SCH (08:33)
[2019-03-31] MEDS: INSULIN ASPART 100 UNITS/ML 3 ML PEN SC SCH ×7 (08:33→21:24)
[2019-03-31] MEDS: CLOPIDOGREL BISULFATE 75 MG TAB PO SCH (08:34)
[2019-03-31] MEDS: AMLODIPINE BESYLATE 5 MG TAB PO SCH (08:34)
[2019-03-31] MEDS: FUROSEMIDE 80 MG in SYRINGE 0 ML IV SCH ×2 (08:34→21:24)
[2019-03-31] MEDS: ASPIRIN 81 MG ECTAB PO SCH (08:35)
[2019-03-31] MEDS: carvediloL 12.5 MG TAB PO SCH ×2 (08:35→21:25)
[2019-03-31] MEDS: HydrALAZINE TAB 50 MG TAB PO SCH ×3 (08:35→21:25)
[2019-03-31] MEDS: SERTRALINE HCL 50 MG TABLET PO SCH (08:35)
[2019-03-31] MEDS: TIOTROPIUM BROMIDE 5 PUFF/90 MCG INH INH SCH (08:36)
[2019-03-31] MEDS: TAMSULOSIN HCL 0.4 MG CAP PO SCH (08:36)
[2019-03-31] MEDS: cloNIDine HCL 0.1 MG TAB PO SCH ×2 (08:36→21:25)
[2019-03-31] MEDS: IRON SUCROSE 200 MG in 0.9 % SODIUM CHLORIDE 100 ML IV SCH (11:11)
--- NOTE | 2019-03-31 11:22 | Nephrology Progress Note ---
Date of Service March 31, 2019 Assessment & Plan (1) CHF exacerbation: There has been notable clinical improvement with furosemide 80 mg IV BID. Net negative 500 ml in past 24 hours and weight down 0.5 kg. I suspect that his underlying advanced chronic kidney disease is the primary driving factor complicated by a high sodium diet. Thankfully urine output has been reasonable but chance of having repeat episodes is high. After a long conversation with Angel, he is reconciled to start dialysis to help stabilize his condition. However, there is no emergent indication to start at this time. We will plan to arrange possible HD catheter placement tomorrow AM. (2) CAD (coronary artery disease): Patient appears to be optimized in terms of cardiovascular medications. SUZANNE-inhibitor or ARB have been deferred given his advanced renal dysfunction. He is tolerating current medications well. He is adequately beta blocked. (3) (HFpEF) heart failure with preserved ejection fraction: I suspect larger driving factor for his fluid retention is his underlying advanced chronic kidney disease at this time. (4) HTN (hypertension): Blood pressure currently well controlled. No change in medications at this time. (5) CKD (chronic kidney disease), stage V: There is no need for urgent dialysis at this time. I confirmed with the Nephrology fellow rehabilitation assistant at the [facility] that the patient's AV fistula is not yet appropriate for use. It will require a revision procedure with vascular surgery. Unfortunately this is currently not scheduled until May. In the interim, the patient has had multiple hospitalizations with recurrent fluid retention. He is aware that ultimately dialysis may be necessary to temporize the situation. The plan of care today will be to continue IV diuretics can to encourage a negative fluid balance. I discussed with Dr. Rios. Dr. Rios will be available for permcath placement tomorrow if needed. Input and output will be strictly documented. Metabolic profile will be monitored daily. Depending on the patient's progress over the weekend, arrangements for PermCath placement and transition to end-stage renal disease requiring dialysis can then be made as needed. Angel is agreeable with this plan of care. NPO past midnight. Hepatitis profile to be sent with AM labs. Electrolytes are acceptable. Medications are appropriately dosed for kidney function. (6) Anemia: [id number] units of Epogen provided yesterday. Tsat 14 and ferritin 140. Venofer 200 mg daily x 5 was ordered today. Subjective No acute events overnight. Angel feels well this morning. Dyspnea improving. Activity tolerance remains limited. No urinary complaints. Appetite is good. Feeling tired. Tolerated PAP overnight but states sleep is restless. Review of Systems Review of Systems: All systems reviewed & are unremarkable except as noted in HPI & below Physical Exam Constitutional: well developed and + morbidly obese; no acute distress Eyes: no scleral abnormality and no corneal abnormality ENMT: Mouth: no oral mucosal abnormality and oral mucous membranes not dry Neck: normal visual inspection and trachea midline Respiratory: normal respiratory effort Auscultation: lungs clear to auscultation bilaterally Cardiovascular: Rate/Rhythm: regular rate Heart Sounds: normal S1 and normal S2 Vessels: + JVD Extremities: + AV fistula; no edema Gastrointestinal (Abdomen): Inspection/Auscultation: + significant pannus and + visible herniation Percussion/Palpation: abdomen soft; abdomen nontender Musculoskeletal: Extremities: no cyanosis and no clubbing Skin: normal turgor; no lesions Neurologic: Motor/Sensory: no tremor and no asterixis Psychiatric: Orientation: alert and oriented x 3 Results & Data Vital Signs (Past 12 Hours) Vital Signs Temp Pulse Pulse Resp BP Pulse Ox 03/31/19 11:14 56 L 16 124/59 L 92 03/31/19 07:24 36.2 C L 62 18 145/70 H 91 03/31/19 03:26 36.5 C 57 L 20 147/67 H 93 03/31/19 02:16 55 L 03/30/19 23:38 36.4 C L 54 L 22 117/56 L 95 03/30/19 23:31 60 18 97 Laboratory Results Laboratory Results - last 24 hr 03/30/19 03/30/19 03/30/19 11:16 16:17 16:36 WBC RBC Hgb Hct MCV MCH MCHC RDW Std Deviation RDW Coeff of Atif Plt Count MPV Sodium Potassium Chloride Carbon Dioxide Anion Gap BUN Creatinine Est Cr Clr Drug Dosing Est GFR ( Amer) Est GFR (Non-Af Amer) BUN/Creatinine Ratio Glucose POC Glucose 118 H 52 L* 105 H Calcium Phosphorus Iron Transferrin Transferrin % Sat Ferritin Albumin 03/30/19 03/31/19 03/31/19 20:29 05:34 05:34 WBC 7.83 RBC 3.58 L Hgb 9.5 L Hct 31.1 L MCV 86.9 MCH 26.5 MCHC 30.5 L RDW Std Deviation 52.6 H RDW Coeff of Atif 16.6 H Plt Count 234 MPV 9.8 Sodium 139 Potassium 3.6 Chloride 100 Carbon Dioxide 31 Anion Gap 8.0 BUN 82 H Creatinine 3.79 H D Est Cr Clr Drug Dosing 26.1 Est GFR ( Amer) 18.1 Est GFR (Non-Af Amer) 15.6 BUN/Creatinine Ratio 21.6 H Glucose 103 H POC Glucose 166 H Calcium 8.9 Phosphorus 4.8 Iron 33 L Transferrin 202 Transferrin % Sat 12 L Ferritin 140.5 Albumin 3.3 L 03/31/19 07:11 WBC RBC Hgb Hct MCV MCH MCHC RDW Std Deviation RDW Coeff of Atif Plt Count MPV Sodium Potassium Chloride Carbon Dioxide Anion Gap BUN Creatinine Est Cr Clr Drug Dosing Est GFR ( Amer) Est GFR (Non-Af Amer) BUN/Creatinine Ratio Glucose POC Glucose 102 H Calcium Phosphorus Iron Transferrin Transferrin % Sat Ferritin Albumin PG Care Time/CCT Total # of Minutes Spent Total Time Spent with Patient: Total time spent is greater than 50% in coordination of care (as documented) at patient's floor/unit and/or counseling patient: (1) CHF exacerbation Heart failure type: unspecified Qualified Code(s): I50.9 - Heart failure, unspecified (2) CAD (coronary artery disease) Coronary Disease-Associated Artery/Lesion type: [place] artery [place] vs. transplanted heart: [place] heart Associated angina: without angina Qualified Code(s): I25.10 - Atherosclerotic heart disease of [place] coronary artery without angina pectoris (3) HTN (hypertension) Hypertension type: essential hypertension Qualified Code(s): I10 - Essential (primary) hypertension (4) Anemia Anemia type: unspecified type Qualified Code(s): D64.9 - Anemia, unspecified
--- NOTE | 2019-03-31 15:42 | Hospitalist Progress Note ---
Date of Service March 31, 2019 Assessment & Plan (1) CKD (chronic kidney disease), stage V: 68-year-old male with a past medical history including HFpEF, BPH, CAD, depression, diabetes mellitus, CKD stage IV, hypercholesterolemia, hypertension and sleep apnea, who presented to the emergency department with worsening shortness of breath likely secondary to pulmonary edema (related to CKD and HFpEF) and obesity hypoventilation syndrome. 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 Weight near baseline now Continue carvedilol 12.5 mg BID, Clonidine 0.1 mg BID, Amlodipine 10 mg, Hydralazine 100 mg TID, Aspirin 81 mg, Clopidogrel 75 mg CKD, stage 4 Daily BMP while diuresing for fluid overload as above Pt with AVF placed at [facility] that is not ready for use yet. Plans for revision procedure with vascular surgery in May 2019; however will need HD before this No emergent indication for HD. Will arrange for HD catheter placement hopefully Monday with Dr. Rios DM2 Decrease Lantus from 50 to 40 units subcu twice daily Accu-Cheks before meals and at bedtime with NovoLog coverage per scale Anemia 03/30 61734 units of Epogen . Iron Studied noted. Cont Venofer 200 mg x 5 days, started 03/31 Daily CBC FEN/GI: HH/DM2 Diet DVT Prophylaxis: Heparin Full Code Dispo: Med Tele. Pending permcath placement Supervising Physician Co-Signing Physician Notes I personally examined the patient and verified all roman points of history and exam, discussed case, and agree with decision making with Dr Davila. Feeling okay. No new complaints. Watching TV. Awaiting the initiation of dialysis in the near future. No new questions or concerns. Vitals noted, in general is awake and alert pleasant no distress. HEENT normocephalic atraumatic. Breathing is unlabored no accessory muscle use good effort. Skin shows no rashes no pallor or icterus. No focal neuro deficits. Pulmonary edemaappears to be predominantly due to his CKD progression and fluid retention by this, probably a little bit of HFpEFseems to have gotten to be very brittle, was just here in the hospital a few weeks ago and then home doing well and unfortunately quickly deteriorated. In discussions with nephrology we agree it makes the most sense to move towards dialysis sooner rather than later. Otherwise as above Zahraa BiPAP at home, but he was not yet taught how to use it. Yesterday I asked him to try to have a friend bring in his BiPAP machine so that not only can he use it here but our respiratory therapist can instruct him on its use. Otherwise as above Subjective 68 yo M found in chair this AM in NAD. No acute overnight events. Good UOP with Lasix. Tolerating PO intake. No other acute concerns or complaints. Review of Systems Review of Systems: All systems reviewed & are unremarkable except as noted in HPI & below Physical Exam Constitutional: WD/WN, vitals as above + obese Eyes: PERRL, conjunctivae normal, anicteric sclerae ENMT: external ear and nose normal, oropharynx normal Respiratory: normal respiratory effort, lungs clear to auscultation Cardiovascular: RRR, no murmur, no edema Gastrointestinal (Abdomen): normal bowel sounds, soft, nontender, no hepatosplenomegaly Percussion/Palpation: + hernia Skin: no rashes, warm and dry Psychiatric: A+Ox3, euthymic affect Lymphatic: 2+ LE edema Results & Data Vital Signs (Past 12 Hours) Vital Signs Temp Pulse Resp BP Pulse Ox 03/31/19 11:24 36.3 C L 58 L 18 123/56 L 94 03/31/19 11:14 56 L 16 124/59 L 92 03/31/19 07:24 36.2 C L 62 18 145/70 H 91 Laboratory Results Laboratory Results - last 24 hr 03/30/19 03/30/19 03/30/19 16:17 16:36 20:29 WBC RBC Hgb Hct MCV MCH MCHC RDW Std Deviation RDW Coeff of Atif Plt Count MPV Sodium Potassium Chloride Carbon Dioxide Anion Gap BUN Creatinine Est Cr Clr Drug Dosing Est GFR ( Amer) Est GFR (Non-Af Amer) BUN/Creatinine Ratio Glucose POC Glucose 52 L* 105 H 166 H Calcium Phosphorus Iron Transferrin Transferrin % Sat Ferritin Albumin 03/31/19 03/31/19 03/31/19 05:34 05:34 07:11 WBC 7.83 RBC 3.58 L Hgb 9.5 L Hct 31.1 L MCV 86.9 MCH 26.5 MCHC 30.5 L RDW Std Deviation 52.6 H RDW Coeff of Atif 16.6 H Plt Count 234 MPV 9.8 Sodium 139 Potassium 3.6 Chloride 100 Carbon Dioxide 31 Anion Gap 8.0 BUN 82 H Creatinine 3.79 H D Est Cr Clr Drug Dosing 26.1 Est GFR ( Amer) 18.1 Est GFR (Non-Af Amer) 15.6 BUN/Creatinine Ratio 21.6 H Glucose 103 H POC Glucose 102 H Calcium 8.9 Phosphorus 4.8 Iron 33 L Transferrin 202 Transferrin % Sat 12 L Ferritin 140.5 Albumin 3.3 L 03/31/19 11:23 WBC RBC Hgb Hct MCV MCH MCHC RDW Std Deviation RDW Coeff of Atif Plt Count MPV Sodium Potassium Chloride Carbon Dioxide Anion Gap BUN Creatinine Est Cr Clr Drug Dosing Est GFR ( Amer) Est GFR (Non-Af Amer) BUN/Creatinine Ratio Glucose POC Glucose 196 H Calcium Phosphorus Iron Transferrin Transferrin % Sat Ferritin Albumin Medications Administered Current Inpatient Medications Acetaminophen (Tylenol) 650 mg PO Q4H PRN PRN Reason: Pain or Fever Stop: 04/29/19 03:33 Al Hydrox/Mg Hydrox/Simethicone (Maalox) 15 ml PO Q4H PRN PRN Reason: Dyspepsia Stop: 04/29/19 03:33 Albuterol (Ventolin Hfa) 2 puffs INH Q6H PRN PRN Reason: Shortness Of Breath Stop: 04/29/19 03:33 Amlodipine Besylate (Norvasc) 10 mg PO QAM ANTONY Stop: 04/29/19 08:59 Last Admin: 03/31/19 08:34 Dose: 10 mg Documented by: Aspirin (Ecotrin Ectab) 81 mg PO DAILY ANTONY Stop: 04/29/19 08:59 Last Admin: 03/31/19 08:35 Dose: 81 mg Documented by: Atorvastatin Calcium (Lipitor) 20 mg PO PM ANTOYN Stop: 04/29/19 20:59 Last Admin: 03/30/19 20:51 Dose: 20 mg Documented by: Carvedilol (Coreg) 12.5 mg PO BID ANTONY Stop: 04/29/19 08:59 Last Admin: 03/31/19 08:35 Dose: 12.5 mg Documented by: Clonidine HCl (Catapres) 0.1 mg PO BID ANTONY Stop: 04/29/19 08:59 Last Admin: 03/31/19 08:36 Dose: 0.1 mg Documented by: Clopidogrel Bisulfate (Plavix) 75 mg PO DAILY ANTONY Stop: 04/29/19 08:59 Last Admin: 03/31/19 08:34 Dose: 75 mg Documented by: Dextrose (Dextrose 50%) 25 - 50 ml IV UD PRN; Protocol PRN Reason: Hypoglycemia Protocol Stop: 04/29/19 03:33 Glucagon (Glucagen) 1 mg SQ UD PRN; Protocol PRN Reason: Hypoglycemia Protocol Stop: 04/29/19 03:33 Glucose (Dex4 Glucose) 4 - 8 tabs PO UD PRN; Protocol PRN Reason: Hypoglycemia Protocol Stop: 04/29/19 03:33 Glucose (Glucose 40%) 15 - 30 gm PO UD PRN; Protocol PRN Reason: Hypoglycemia Protocol Stop: 04/29/19 03:33 Heparin Sodium (Porcine) (Heparin Sodium (Porcine)) 5,000 units SQ Q8 ANTONY Stop: 04/29/19 05:59 Last Admin: 03/31/19 12:49 Dose: 5,000 units Documented by: Hydralazine HCl (Apresoline) 100 mg PO TID ANTONY Stop: 04/29/19 08:59 Last Admin: 03/31/19 12:49 Dose: 100 mg Documented by: Furosemide 80 mg/ Syringe 8 mls @ 4 mls/min IV BID ANTONY Stop: 04/29/19 08:59 Last Admin: 03/31/19 08:34 Dose: 4 mls/min Documented by: Iron Sucrose 200 mg/ Sodium (Chloride) 110 mls @ 220 mls/hr IV DAILY ANTONY Stop: 04/04/19 09:29 Last Infusion: 03/31/19 11:50 Dose: Infused Documented by: Insulin Aspart (Novolog Flexpen) 10 units SC AC ANTONY Stop: 04/29/19 07:29 Last Admin: 03/31/19 12:44 Dose: Not Given Documented by: Insulin Aspart (Novolog Flexpen) 0 units SC ACHS ANTONY Stop: 04/29/19 07:29 Last Admin: 03/31/19 12:48 Dose: 10 units Documented by: Insulin Glargine (Lantus Solostar Pen) 40 units SQ BID ANTONY Stop: 04/29/19 08:59 Last Admin: 03/31/19 08:33 Dose: 40 units Documented by: Loratadine (Claritin) 10 mg PO DAILY PRN PRN Reason: Allergy Symptoms Stop: 04/29/19 03:33 Magnesium Hydroxide (Milk Of Magnesia) 30 ml PO Q12H PRN PRN Reason: Constipation Stop: 04/29/19 03:33 Miscellaneous (Carbohydrates For Hypoglycemia) 15 - 30 gm PO UD PRN PRN Reason: Hypoglycemia Protocol Stop: 04/29/19 03:33 Ondansetron HCl (Zofran) 4 mg IV Q6H PRN PRN Reason: Nausea Stop: 04/29/19 03:33 Sertraline HCl (Zoloft) 25 mg PO QAM [facility] Stop: 04/29/19 08:59 Last Admin: 03/31/19 08:35 Dose: 25 mg Documented by: Tamsulosin HCl (Flomax) 0.4 mg PO QAM [facility] Stop: 04/29/19 08:59 Last Admin: 03/31/19 08:36 Dose: 0.4 mg Documented by: Tiotropium [place] (Spiriva) 1 puffs INH QAM [facility] Stop: 04/29/19 08:59 Last Admin: 03/31/19 08:36 Dose: 1 puffs Documented by: Resident Activity Tracking Resident Involvement: Resident Care Provided Care Provided: Adult Hospital Medicine
--- NOTE | 2019-03-31 17:14 | Billing Data ---
Coding Level of Care Code 74902 Subseq Hosp Care Lvl 3
[2019-03-31] MEDS ORDERED: Nursing to Pharmacy Communication ONE (20:52)
[2019-03-31] MEDS ORDERED: INSULIN GLARGINE SOLOSTAR 100 UNITS/ML 3 ML PEN SQ ONE (21:00)
[2019-03-31] MEDS: ATORVASTATIN 20 MG TAB PO SCH (21:25)
[2019-04-01] MEDS: HEPARIN SOD 5,000 UNIT/0.5 ML VIAL SQ SCH ×3 (06:08→20:32)
[2019-04-01 06:34] LABS: Basophils # (auto) 0.02 K/uL (0-0.2); Basophils % (auto) 0.3 %; Eosinophils # (auto) 0.23 K/uL (0-0.5); Hematocrit (blood only) 31.7 % (42-52); Hemoglobin 9.8 g/dL (14.0-18.0); Immature Granulocytes # (auto) 0.02 K/uL (0.00-0.02); Immature Granulocytes % (auto) 0.3 %; Lymphocytes # (auto) 0.85 K/uL (1.2-3.4); Lymphocytes % (auto) 10.9 %; Mean Corpuscular Hemoglobin 26.8 pg (25-34); Mean Corpuscular Hgb Conc 30.9 g/dL (32-36); Mean Corpuscular Volume 86.6 fL (80-100); Mean Platelet Volume 9.5 fL (7.4-10.4); Monocytes # (auto) 0.88 K/uL (0.11-0.59); Monocytes % (auto) 11.3 %; Neutrophils # (auto) 5.79 K/uL (1.4-6.5); Neutrophils % (auto) 74.2 %; Platelet Count 258 K/uL (130-400); RDW Coefficient of Variation 16.6 % (11.5-14.5); Red Blood Count 3.66 M/uL (4.7-6.1); White Blood Count 7.79 K/uL (4.8-10.8)
[2019-04-01 07:10] LABS: Albumin Level 3.3 gm/dl (3.4-5.0); BUN Creatinine Ratio 21.3 (10-20); Creatinine Clr Calc Pharmacy 25.7 ml/min; Est GFR (African American) 17.8; Est GFR (Non-African American) 15.4; Phosphorus 4.8 mg/dl (2.5-4.9); Potassium 3.7 mmol/L (3.5-5.1)
[2019-04-01 07:41] LABS: Hepatitis B Surface Ab Quant < 3.10 mIU/mL (>or=10mIU/mL Immune); Hepatitis B Surface Antibody Non-Immune
[2019-04-01 07:52] LABS: Hepatitis B Surface Antigen Neg (Neg)
[2019-04-01] MEDS: INSULIN ASPART 100 UNITS/ML 3 ML PEN SC SCH ×7 (08:42→20:29)
[2019-04-01] MEDS: HydrALAZINE TAB 50 MG TAB PO SCH ×3 (08:44→20:26)
[2019-04-01] MEDS: TAMSULOSIN HCL 0.4 MG CAP PO SCH (08:47)
[2019-04-01] MEDS: SERTRALINE HCL 50 MG TABLET PO SCH (08:47)
[2019-04-01] MEDS: cloNIDine HCL 0.1 MG TAB PO SCH ×2 (08:48→20:26)
[2019-04-01] MEDS: AMLODIPINE BESYLATE 5 MG TAB PO SCH (08:49)
[2019-04-01] MEDS: carvediloL 12.5 MG TAB PO SCH ×2 (08:49→20:26)
[2019-04-01] MEDS: CLOPIDOGREL BISULFATE 75 MG TAB PO SCH (08:49)
[2019-04-01] MEDS: ASPIRIN 81 MG ECTAB PO SCH (08:49)
[2019-04-01] MEDS: INSULIN GLARGINE SOLOSTAR 100 UNITS/ML 3 ML PEN SQ SCH ×3 (08:51→20:27)
[2019-04-01] MEDS: TIOTROPIUM BROMIDE 5 PUFF/90 MCG INH INH SCH (08:54)
[2019-04-01] MEDS: IRON SUCROSE 200 MG in 0.9 % SODIUM CHLORIDE 100 ML IV SCH (09:00)
[2019-04-01] MEDS: FUROSEMIDE 80 MG in SYRINGE 0 ML IV SCH ×2 (09:03→20:33)
--- NOTE | 2019-04-01 09:36 | Nephrology Progress Note ---
Date of Service April 01, 2019 Assessment & Plan (1) CHF exacerbation: -- Clinically improved following IV diuretic therapy -- Continue Furosemide 80 mg IV BID and reassess UO, kidney function and volume status in am -- Will order CXR to assess for resolution of pulmonary congestion (2) CAD (coronary artery disease): -- Quiescent. Remains on Carvedilol therapy (3) HTN (hypertension): -- Blood pressure currently well controlled. No change in medications at this time. (4) CKD (chronic kidney disease), stage V: -- Nonoliguric. Responding well to IV loop diuretic. Creatinine stable at 3.8. Electrolyte balance is acceptable. Will continue with medical management. Patient understands that if creatinine increases further will need to proceed w/ IJ THC insertion and initiation of [employer]LECT[employer]ER AND CHECKER. Indications/benefits/risks/alternatives to HD were reviewed in detail w/ patient today. He is agreeable to starting HD if absolutely necessary -- Will consult dietitian to educate patient on low sodium diet -- Reviewed in detail weight based diuretic dosing. Advised patient to increase from Furosemide 80 mg po BID to TID x 3 days if he develops dyspnea, progressive LE swelling or weight gain > 3 lbs (5) Anemia: -- Epogen 20,000 units SQ administered 03/30/19 -- Venofer 200 mg daily x 5 days started 03/31/19 -- Hgb is trending up. Will monitor Subjective Mr. Solorio was seen & examined in the PCU this morning. He reports brisk UO in response to IV Furosemide. He is on O2 at 2 L/min chronically at home. He is now breathing comfortably at this O2 rate. Mr. Solorio's only concern this morning is constipation. Review of Systems Constitutional: no fever and no chills Eyes: no worsening vision and no problem reported Ear, Nose, Mouth, Throat: no problem reported Respiratory: no cough and no dyspnea Cardiovascular: + edema; no chest pain and no palpitations Gastrointestinal: + constipation; no abdominal pain, no nausea and no vomiting Genitourinary: no dysuria, no urinary hesitancy and no hematuria Musculoskeletal: no back pain Integumentary: no rash Neurologic: no falls, no dizziness and no confusion Physical Exam Constitutional: + overweight; not in distress Eyes: PERRL, conjunctivae normal, anicteric sclerae ENMT: external ear and nose normal, oropharynx normal Neck: trachea midline, no thyromegaly Respiratory: normal respiratory effort, lungs clear to auscultation Cardiovascular: Rate/Rhythm: regular rate and regular rhythm Heart Sounds: no murmur Gastrointestinal (Abdomen): normal bowel sounds, soft, nontender, no hepatosplenomegaly Musculoskeletal: Extremities: no cyanosis Skin: no rashes, warm and dry Neurologic: awake; not confused Results & Data Vital Signs (Past 12 Hours) Vital Signs Temp Pulse Resp BP Pulse Ox 04/01/19 09:00 68 137/67 04/01/19 08:08 36.5 C 94 H 18 137/65 94 04/01/19 04:01 36.3 C L 58 L 20 133/60 94 03/31/19 23:29 36.4 C L 51 L 20 123/56 L 91 Laboratory Results Laboratory Tests 03/31/19 04/01/19 04/01/19 05:34 06:20 06:20 WBC 7.79 Hgb 9.8 L Hct 31.7 L Plt Count 258 Sodium 142 Potassium 3.7 Chloride 103 Carbon Dioxide 31 BUN 82 H Creatinine 3.83 H Glucose 72 Calcium 9.0 Transferrin % Sat 12 L Ferritin 140.5 Albumin 3.3 L PG Care Time/CCT Total # of Minutes Spent Total Time Spent with Patient: Total time spent is greater than 50% in coordination of care (as documented) at patient's floor/unit and/or counseling patient: (1) CHF exacerbation Heart failure type: unspecified Qualified Code(s): I50.9 - Heart failure, unspecified (2) CAD (coronary artery disease) Associated angina: without angina Coronary Disease-Associated Artery/Lesion type: [place] artery [place] vs. transplanted heart: [place] heart Qualified Code(s): I25.10 - Atherosclerotic heart disease of [place] coronary artery without angina pectoris (3) Anemia Anemia type: unspecified type Qualified Code(s): D64.9 - Anemia, unspecified (4) HTN (hypertension) Hypertension type: essential hypertension Qualified Code(s): I10 - Essential (primary) hypertension
[2019-04-01] MEDS ORDERED: POLYETHYLENE (MIRALAX) 17 GM PACK PO PRN (09:52)
--- NOTE | 2019-04-01 11:13 | XRay Report ---
SINGLE VIEW CHEST CLINICAL HISTORY: Follow-up CHF. FINDINGS: 2 AP, portable, upright chest radiographs are compared to study dated 03/29/2019 and correl ated with chest CT dated 03/12/2019. The examination is degraded by portable technique and patient ro tation. The heart is enlarged end there is pulmonary vascular congestion. There are small pleural ef fusions with bibasilar consolidation. No pneumothorax is seen. The skeletal structures are osteopenic . The bony thorax is grossly intact. IMPRESSION: 1. Cardiomegaly with evidence of congestive failure. This is similar in appearance to 03/29/2019. 2. Small pleural effusions with bibasilar consolidation. Electronically signed by: Washington Chance M.D. 04/01/2019 11:11 AM
--- NOTE | 2019-04-01 16:50 | Hospitalist Progress Note ---
Date of Service April 01, 2019 Assessment & Plan (1) CKD (chronic kidney disease), stage V: 68-year-old male with a past medical history including HFpEF, BPH, CAD, depression, diabetes mellitus, CKD stage V, hypercholesterolemia, hypertension and sleep apnea, who presented to the emergency department with worsening shortness of breath, with volume overload due the combination of CKD, CHF and obesity hypoventilation syndrome. 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 Appreciate nephrology recs. Clinical and subjective improvement with good UOP Cont strict I's/O's currently in negative fluid balance, daily weights. Weight near baseline now Continue carvedilol 12.5 mg BID, Clonidine 0.1 mg BID, Amlodipine 10 mg, Hydralazine 100 mg TID, Aspirin 81 mg, Clopidogrel 75 mg Chronic respiratory failure continue home O2 RADHA Has had long standing h/o noncompliance. ? sec to not knowing how to use. Will check on getting arranged here. CKD, stage 4 Daily BMP while diuresing for fluid overload as above. Appreciate nephrology recs. Pt with AVF placed at [facility] that is not ready for use yet. Plans for revision procedure with vascular surgery in May 2019 No emergent indication for HD per nephrology; advising optimizing medical management. DM2 Decrease Lantus from 50 to 40 units subcu twice daily Accu-Cheks before meals and at bedtime with NovoLog coverage per scale Anemia 03/30 pt received 28905 units of Epogen Cont Venofer 200 mg x 5 days, started 03/31 Daily CBC Constipation -Bowel regimen of milk of magnesia and miralax ordered PRN. FEN/GI: HH/DM2 Diet DVT Prophylaxis: Heparin Full Code Dispo: Discharge pending euvolemia Supervising Physician Co-Signing Physician Notes Resident Physician Supervision Note: I independently interviewed and examined the patient and verified the roman history and physical, reviewed labs and image studies, discussed the case with the resident Dr. Umaña and agree with the findings and care plan. Subjective Mr. Solorio was seated at the bedside this AM, leabing forward, NC in nares. States he is slowly improving. Denies new onset headache, blurry vision, chest pain, palps, N/V, abd pain, diarrhea, numbness and tingling anywhere. States he has some dyspnea with exertion and has not had a bowel movement in a few days. Review of Systems Review of Systems: All systems reviewed & are unremarkable except as noted in HPI & below Physical Exam Physical Exam: General: Alert, oriented. Seated at bedside with NC in nares. Skin: No noted rashes or bruises Psych: Appropriate mood and affect Neuro: No gross deficits HEENT: NC/AT Chest: Nontender to palpation. CV: RRR, Normal s1, s2. No murmurs appreciated Resp: Breath sounds clear bilaterally. No crackles/rhonchi/rales. Abdomen: Soft, nontender. No guarding. No organomegaly appreciated. Extremities: SCDs on lower extremities bilaterally. Results & Data Vital Signs (Past 12 Hours) Vital Signs Temp Pulse Pulse Resp BP Pulse Ox 04/01/19 15:36 36.8 C 60 21 124/75 94 04/01/19 11:11 36.6 C 54 L 14 125/55 L 95 04/01/19 09:00 68 137/67 04/01/19 08:08 36.5 C 94 H 18 137/65 94 04/01/19 08:00 55 L Laboratory Results Laboratory Results - last 24 hr 03/31/19 03/31/19 04/01/19 16:39 20:23 06:20 WBC 7.79 RBC 3.66 L Hgb 9.8 L Hct 31.7 L MCV 86.6 MCH 26.8 MCHC 30.9 L RDW Std Deviation 52.0 H RDW Coeff of Atif 16.6 H Plt Count 258 MPV 9.5 Immature Gran % (Auto) 0.3 Neut % (Auto) 74.2 Lymph % (Auto) 10.9 [place] % (Auto) 11.3 Eos % (Auto) 3.0 Baso % (Auto) 0.3 Immature Gran # (Auto) 0.02 Neut # (Auto) 5.79 Lymph # (Auto) 0.85 L [place] # (Auto) 0.88 H Eos # (Auto) 0.23 Baso # (Auto) 0.02 Sodium Potassium Chloride Carbon Dioxide Anion Gap BUN Creatinine Est Cr Clr Drug Dosing Est GFR ( Amer) Est GFR (Non-Af Amer) BUN/Creatinine Ratio Glucose POC Glucose 169 H 96 Calcium Phosphorus Albumin Hep Bs Antigen Hep Bs Antibody Hep Bs Antibody, Quant Hep B Core IgM Ab 04/01/19 04/01/19 04/01/19 06:20 06:20 06:20 WBC RBC Hgb Hct MCV MCH MCHC RDW Std Deviation RDW Coeff of Atif Plt Count MPV Immature Gran % (Auto) Neut % (Auto) Lymph % (Auto) [place] % (Auto) Eos % (Auto) Baso % (Auto) Immature Gran # (Auto) Neut # (Auto) Lymph # (Auto) [place] # (Auto) Eos # (Auto) Baso # (Auto) Sodium 142 Potassium 3.7 Chloride 103 Carbon Dioxide 31 Anion Gap 8.0 BUN 82 H Creatinine 3.83 H Est Cr Clr Drug Dosing 25.7 Est GFR ( Amer) 17.8 Est GFR (Non-Af Amer) 15.4 BUN/Creatinine Ratio 21.3 H Glucose 72 POC Glucose Calcium 9.0 Phosphorus 4.8 Albumin 3.3 L Hep Bs Antigen Neg Hep Bs Antibody Non-Immune Hep Bs Antibody, Quant < 3.10 L Hep B Core IgM Ab Pending 04/01/19 04/01/19 04/01/19 07:32 11:07 16:30 WBC RBC Hgb Hct MCV MCH MCHC RDW Std Deviation RDW Coeff of Atif Plt Count MPV Immature Gran % (Auto) Neut % (Auto) Lymph % (Auto) [place] % (Auto) Eos % (Auto) Baso % (Auto) Immature Gran # (Auto) Neut # (Auto) Lymph # (Auto) [place] # (Auto) Eos # (Auto) Baso # (Auto) Sodium Potassium Chloride Carbon Dioxide Anion Gap BUN Creatinine Est Cr Clr Drug Dosing Est GFR ( Amer) Est GFR (Non-Af Amer) BUN/Creatinine Ratio Glucose POC Glucose 99 136 H 152 H Calcium Phosphorus Albumin Hep Bs Antigen Hep Bs Antibody Hep Bs Antibody, Quant Hep B Core IgM Ab Medications Administered Home Medications Novolog PenFill U-100 Insulin 10 unit SUBCUT AC 01/06/19 [History Confirmed 03/29/19] albuterol sulfate 2 puff INHALATION Q6H PRN 01/06/19 [History Confirmed 03/29/19] amlodipine 10 mg PO QAM 01/06/19 [History Confirmed 03/29/19] atorvastatin 20 mg PO PM 01/06/19 [History Confirmed 03/29/19] clonidine HCl 0.1 mg PO BID 01/06/19 [History Confirmed 03/29/19] furosemide [Lasix] 80 mg PO BID 01/06/19 [History Confirmed 03/29/19] hydralazine 100 mg PO TID 01/06/19 [History Confirmed 03/29/19] loratadine 10 mg PO DAILY PRN 01/06/19 [History Confirmed 03/29/19] sertraline 25 mg PO QAM 01/06/19 [History Confirmed 03/29/19] tamsulosin 0.4 mg PO QAM 01/06/19 [History Confirmed 03/29/19] Lantus Solostar U-100 Insulin 50 unit SUBCUT BID 03/06/19 [History Confirmed 03/29/19] aspirin [Aspir-81] 81 mg PO DAILY 03/06/19 [History Confirmed 03/29/19] carvedilol [Coreg] 12.5 mg PO BID 03/06/19 [History Confirmed 03/29/19] clopidogrel [Plavix] 75 mg PO DAILY 03/06/19 [History Confirmed 03/29/19] tiotropium bromide [Spiriva with HandiHaler] 1 puff INHALATION QAM 30 Days #30 puffs 03/13/19 [Rx Confirmed 03/29/19] Active Medications Acetaminophen (Tylenol) 650 mg PO Q4H PRN PRN Reason: Pain or Fever Stop: 04/29/19 03:33 Al Hydrox/Mg Hydrox/Simethicone (Maalox) 15 ml PO Q4H PRN PRN Reason: Dyspepsia Stop: 04/29/19 03:33 Albuterol (Ventolin Hfa) 2 puffs INH Q6H PRN PRN Reason: Shortness Of Breath Stop: 04/29/19 03:33 Amlodipine Besylate (Norvasc) 10 mg PO QAM ANTONY Stop: 04/29/19 08:59 Last Admin: 04/01/19 08:49 Dose: 10 mg Documented by: Aspirin (Ecotrin Ectab) 81 mg PO DAILY ANTONY Stop: 04/29/19 08:59 Last Admin: 04/01/19 08:49 Dose: 81 mg Documented by: Atorvastatin Calcium (Lipitor) 20 mg PO PM ANTONY Stop: 04/29/19 20:59 Last Admin: 03/31/19 21:25 Dose: 20 mg Documented by: Carvedilol (Coreg) 12.5 mg PO BID ANTONY Stop: 04/29/19 08:59 Last Admin: 04/01/19 08:49 Dose: 12.5 mg Documented by: Clonidine HCl (Catapres) 0.1 mg PO BID ANTONY Stop: 04/29/19 08:59 Last Admin: 04/01/19 08:48 Dose: 0.1 mg Documented by: Clopidogrel Bisulfate (Plavix) 75 mg PO DAILY ANTONY Stop: 04/29/19 08:59 Last Admin: 04/01/19 08:49 Dose: 75 mg Documented by: Dextrose (Dextrose 50%) 25 - 50 ml IV UD PRN; Protocol PRN Reason: Hypoglycemia Protocol Stop: 04/29/19 03:33 Glucagon (Glucagen) 1 mg SQ UD PRN; Protocol PRN Reason: Hypoglycemia Protocol Stop: 04/29/19 03:33 Glucose (Dex4 Glucose) 4 - 8 tabs PO UD PRN; Protocol PRN Reason: Hypoglycemia Protocol Stop: 04/29/19 03:33 Glucose (Glucose 40%) 15 - 30 gm PO UD PRN; Protocol PRN Reason: Hypoglycemia Protocol Stop: 04/29/19 03:33 Heparin Sodium (Porcine) (Heparin Sodium (Porcine)) 5,000 units SQ Q8 ANTONY Stop: 04/29/19 05:59 Last Admin: 04/01/19 13:35 Dose: 5,000 units Documented by: Hydralazine HCl (Apresoline) 100 mg PO TID ANTONY Stop: 04/29/19 08:59 Last Admin: 04/01/19 13:35 Dose: 100 mg Documented by: Furosemide 80 mg/ Syringe 8 mls @ 4 mls/min IV BID ANTONY Stop: 04/29/19 08:59 Last Admin: 04/01/19 09:03 Dose: 4 mls/min Documented by: Iron Sucrose 200 mg/ Sodium (Chloride) 110 mls @ 220 mls/hr IV DAILY ANTONY Stop: 04/04/19 09:29 Last Infusion: 04/01/19 09:45 Dose: Infused Documented by: Insulin Aspart (Novolog Flexpen) 10 units SC AC ANTONY Stop: 04/29/19 07:29 Last Admin: 04/01/19 11:47 Dose: 10 units Documented by: Insulin Aspart (Novolog Flexpen) 0 units SC ACHS ANTONY Stop: 04/29/19 07:29 Last Admin: 04/01/19 11:46 Dose: 5 units Documented by: Insulin Glargine (Lantus Solostar Pen) 40 units SQ BID ANTONY Stop: 04/29/19 08:59 Last Admin: 04/01/19 10:23 Dose: 40 units Documented by: Loratadine (Claritin) 10 mg PO DAILY PRN PRN Reason: Allergy Symptoms Stop: 04/29/19 03:33 Magnesium Hydroxide (Milk Of Magnesia) 30 ml PO Q12H PRN PRN Reason: Constipation Stop: 04/29/19 03:33 Miscellaneous (Carbohydrates For Hypoglycemia) 15 - 30 gm PO UD PRN PRN Reason: Hypoglycemia Protocol Stop: 04/29/19 03:33 Ondansetron HCl (Zofran) 4 mg IV Q6H PRN PRN Reason: Nausea Stop: 04/29/19 03:33 Polyethylene Glycol (Miralax Powder Packet) 17 gm PO DAILY PRN PRN Reason: Constipation Stop: 05/01/19 09:51 Sertraline HCl (Zoloft) 25 mg PO QAM ANTONY Stop: 04/29/19 08:59 Last Admin: 04/01/19 08:47 Dose: 25 mg Documented by: Tamsulosin HCl (Flomax) 0.4 mg PO QAM ANTONY Stop: 04/29/19 08:59 Last Admin: 04/01/19 08:47 Dose: 0.4 mg Documented by: Tiotropium [place] (Spiriva) 1 puffs INH QAM ANTONY Stop: 04/29/19 08:59 Last Admin: 04/01/19 08:54 Dose: 1 puffs Documented by: Resident Activity Tracking Resident Involvement: Resident Care Provided Care Provided: Adult Hospital Medicine
[2019-04-01] MEDS: ATORVASTATIN 20 MG TAB PO SCH (20:27)
[2019-04-02] MEDS: HEPARIN SOD 5,000 UNIT/0.5 ML VIAL SQ SCH ×3 (05:49→20:53)
[2019-04-02 06:12] LABS: Basophils # (auto) 0.01 K/uL (0-0.2); Basophils % (auto) 0.1 %; Eosinophils # (auto) 0.25 K/uL (0-0.5); Eosinophils % (auto) 3.5 %; Hematocrit (blood only) 33.9 % (42-52); Hemoglobin 10.3 g/dL (14.0-18.0); Immature Granulocytes # (auto) 0.02 K/uL (0.00-0.02); Immature Granulocytes % (auto) 0.3 %; Lymphocytes # (auto) 1.04 K/uL (1.2-3.4); Lymphocytes % (auto) 14.4 %; Mean Corpuscular Hemoglobin 26.5 pg (25-34); Mean Corpuscular Hgb Conc 30.4 g/dL (32-36); Mean Corpuscular Volume 87.4 fL (80-100); Mean Platelet Volume 10.3 fL (7.4-10.4); Monocytes # (auto) 0.64 K/uL (0.11-0.59); Monocytes % (auto) 8.8 %; Neutrophils # (auto) 5.28 K/uL (1.4-6.5); Neutrophils % (auto) 72.9 %; Platelet Count 280 K/uL (130-400); RDW Coefficient of Variation 16.8 % (11.5-14.5); Red Blood Count 3.88 M/uL (4.7-6.1); White Blood Count 7.24 K/uL (4.8-10.8)
[2019-04-02 06:48] LABS: BUN Creatinine Ratio 20.5 (10-20); Calcium 9.1 mg/dl (8.5-10.1); Creatinine Clr Calc Pharmacy 24.6 ml/min; Est GFR (African American) 16.9; Est GFR (Non-African American) 14.6; Potassium 3.7 mmol/L (3.5-5.1)
[2019-04-02] MEDS: AMLODIPINE BESYLATE 5 MG TAB PO SCH (07:58)
[2019-04-02] MEDS: CLOPIDOGREL BISULFATE 75 MG TAB PO SCH (07:58)
[2019-04-02] MEDS: carvediloL 12.5 MG TAB PO SCH ×2 (07:59→20:52)
[2019-04-02] MEDS: ASPIRIN 81 MG ECTAB PO SCH (07:59)
[2019-04-02] MEDS: SERTRALINE HCL 50 MG TABLET PO SCH (07:59)
[2019-04-02] MEDS: HydrALAZINE TAB 50 MG TAB PO SCH ×3 (07:59→20:53)
[2019-04-02] MEDS: TAMSULOSIN HCL 0.4 MG CAP PO SCH (07:59)
[2019-04-02] MEDS: TIOTROPIUM BROMIDE 5 PUFF/90 MCG INH INH SCH (08:00)
[2019-04-02] MEDS: cloNIDine HCL 0.1 MG TAB PO SCH ×2 (08:00→20:51)
[2019-04-02] MEDS: FUROSEMIDE 80 MG in SYRINGE 0 ML IV SCH ×2 (08:00→20:51)
[2019-04-02] MEDS: INSULIN ASPART 100 UNITS/ML 3 ML PEN SC SCH ×7 (09:01→21:00)
[2019-04-02] MEDS: IRON SUCROSE 200 MG in 0.9 % SODIUM CHLORIDE 100 ML IV SCH (09:01)
[2019-04-02] MEDS: INSULIN GLARGINE SOLOSTAR 100 UNITS/ML 3 ML PEN SQ SCH ×2 (09:01→20:58)
--- NOTE | 2019-04-02 09:52 | Hospitalist Progress Note ---
Date of Service April 02, 2019 Assessment & Plan (1) CKD (chronic kidney disease), stage V: 68-year-old male with a past medical history including HFpEF, BPH, CAD, depression, diabetes mellitus, CKD stage V, hypercholesterolemia, hypertension and sleep apnea, who presented to the emergency department with worsening shortness of breath, with volume overload due the combination of CKD, CHF and obesity hypoventilation syndrome. 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 Appreciate nephrology recs. Clinical and subjective improvement Cont strict I's/O's currently in negative fluid balance, daily weights. Weight near baseline now Continue carvedilol 12.5 mg BID, Clonidine 0.1 mg BID, Amlodipine 10 mg, Hydralazine 100 mg TID, Aspirin 81 mg, Clopidogrel 75 mg Chronic respiratory failure with hypoxia continue home O2 RADHA Has had long standing h/o noncompliance. ? sec to not knowing how to use. Will check on getting arranged here. CKD, stage 4 Plan to have perm catheter placed in AM Daily BMP while diuresing for fluid overload as above. Appreciate nephrology recs. Pt with AVF placed at [facility] that is not ready for use yet. Plans for revision procedure with vascular surgery in May 2019 DM2 Decrease Lantus by 20% given overnight hypoglycemic episode Accu-Cheks before meals and at bedtime with NovoLog coverage per scale Anemia 03/30 pt received 49600 units of Epogen Cont Venofer 200 mg x 5 days, started 03/31 Daily CBC Constipation -Bowel regimen of milk of magnesia and miralax ordered PRN. FEN/GI: HH/DM2 Diet DVT Prophylaxis: Heparin Full Code Dispo: Discharge pending euvolemia Supervising Physician Co-Signing Physician Notes Resident Physician Supervision Note: I independently interviewed and examined the patient and verified the roman history and physical, reviewed labs and image studies, discussed the case with the resident Dr. Umaña and agree with the findings and care plan. Subjective Pt states that he is stable in terms of symptoms. No acute events overnight. Denies headache, changes to vision, sore throat, runny nose, cough, chest pain, SOB, palps, diarrhea. Has resolving constipation. Review of Systems Review of Systems: All systems reviewed & are unremarkable except as noted in HPI & below Physical Exam Physical Exam: General: Alert, oriented. Seated at bedside with NC in nares. Skin: No noted rashes or bruises Psych: Appropriate mood and affect Neuro: No gross deficits HEENT: NC/AT Chest: Nontender to palpation. CV: RRR, Normal s1, s2. No murmurs appreciated Resp: Breath sounds clear bilaterally. No crackles/rhonchi/rales. Abdomen: Soft, nontender. No guarding. No organomegaly appreciated. Extremities: Trace edema in lower extremities bilaterally. Results & Data Vital Signs (Past 12 Hours) Vital Signs Temp Pulse Pulse Pulse Resp BP Pulse Ox 04/02/19 08:00 36.4 C L 55 L 16 138/88 95 04/02/19 03:49 36.4 C L 52 L 20 136/63 94 04/02/19 00:00 49 L 04/01/19 23:40 36.5 C 50 L 20 125/58 L 93 Resident Activity Tracking Resident Involvement: Resident Care Provided Care Provided: Adult Hospital Medicine
--- NOTE | 2019-04-02 10:20 | Nephrology Progress Note ---
Date of Service April 02, 2019 Assessment & Plan (1) ESRD (end stage renal disease): -- Only net 1700 cc diuresis w/ IV loop diuretic. Creatinine now up to 4.0 w/ BUN 82. CXR film reviewed. Patient has persistent CHF. -- Indications/benefits/risks/alternatives to IJ THC insertion and initiation of HD discussed at length w/ patient today. He is agreeable to starting dialysis for correction of volume status -- Will consult Vascular Surgery for IJ THC insertion -- Will schedule 1st run HD for am -- Will consult nephrology social worker to set up outpatient HD at [facility] (2) CHF exacerbation: -- No significant improvement despite IV diuretic therapy. Patient now has progressive renal dysfunction (3) CAD (coronary artery disease): -- Quiescent. Remains on Carvedilol therapy (4) HTN (hypertension): -- Blood pressure currently well controlled. No change in medications at this time. (5) Anemia: -- Epogen 20,000 units SQ administered 03/30/19 -- Venofer 200 mg daily x 5 days started 03/31/19 -- Hgb is trending up. Will monitor Subjective Mr. Solorio was seen & examined in his hospital room this morning. He remains mildly dyspneic despite O2 at 2 L/min NC. He has 1+ pretibial pitting edema. Review of Systems Constitutional: no fever and no chills Eyes: no worsening vision and no problem reported Ear, Nose, Mouth, Throat: no problem reported Respiratory: no cough and no dyspnea Cardiovascular: + edema; no chest pain and no palpitations Gastrointestinal: + constipation; no abdominal pain, no nausea and no vomiting Genitourinary: no dysuria, no urinary hesitancy and no hematuria Musculoskeletal: no back pain Integumentary: no rash Neurologic: no falls and no dizziness Physical Exam Constitutional: + overweight; not in distress Eyes: PERRL, conjunctivae normal, anicteric sclerae ENMT: external ear and nose normal, oropharynx normal Neck: trachea midline, no thyromegaly Respiratory: normal respiratory effort Auscultation: + crackles Cardiovascular: Rate/Rhythm: regular rate and regular rhythm Heart Sounds: no murmur Extremities: + edema (1+ pretibial pitting edema) and + AV fistula (R BC AVF + bruit) Gastrointestinal (Abdomen): normal bowel sounds, soft, nontender, no hepatosplenomegaly Musculoskeletal: Extremities: no cyanosis Skin: no rashes, warm and dry Neurologic: awake; not confused Results & Data Vital Signs (Past 12 Hours) Vital Signs Temp Pulse Pulse Pulse Resp BP Pulse Ox 04/02/19 08:00 36.4 C L 55 L 16 138/88 95 04/02/19 03:49 36.4 C L 52 L 20 136/63 94 04/02/19 00:00 49 L 04/01/19 23:40 36.5 C 50 L 20 125/58 L 93 Laboratory Results Laboratory Tests 04/02/19 04/02/19 05:43 05:43 WBC 7.24 Hgb 10.3 L Hct 33.9 L Plt Count 280 Sodium 141 Potassium 3.7 Chloride 103 Carbon Dioxide 30 BUN 82 H Creatinine 4.01 H Diagnostic Findings 04/01/19 CXR: persistent CHF PG Care Time/CCT Total # of Minutes Spent Total Time Spent with Patient: Total time spent is greater than 50% in coordination of care (as documented) at patient's floor/unit and/or counseling patient: (1) CHF exacerbation Heart failure type: unspecified Qualified Code(s): I50.9 - Heart failure, unspecified (2) CAD (coronary artery disease) Coronary Disease-Associated Artery/Lesion type: [place] artery [place] vs. transplanted heart: [place] heart Associated angina: without angina Qualified Code(s): I25.10 - Atherosclerotic heart disease of [place] coronary artery without angina pectoris (3) HTN (hypertension) Hypertension type: essential hypertension Qualified Code(s): I10 - Essential (primary) hypertension (4) Anemia Anemia type: unspecified type Qualified Code(s): D64.9 - Anemia, unspecified
--- NOTE | 2019-04-02 11:21 | Consultation ---
Date of Consultation April 02, 2019 Assessment & Plan (1) ESRD (end stage renal disease): Pt scheduled for permcath insertion in OR tomorrow afternoon by Dr Rios. Pt will require shaving of R chest and neck hair. Present on Admission?: Yes History of Present Illness Reason for Consultation: ESRD, need permcath for HD Attending Physician: Magali Shields MD History of Present Illness 68 yo m with multiple medical problems, including CKD, CHF, DMII, CAD, BPH, HTN, admitted with worsening renal fxn and CHF, seen in consultation today for permcath insertion for HD initiation. Pt states has known he will eventually need HD. He had RUE brachiobasilic AVF created at the [facility] approx 2 months ago, but is not scheduled for the transposition until early May. Admits ALTAMIRANO and edema and fatigue. Deneis CISSE, fever, recent illness, chest pain, SOB at rest, abd pain, N/V, rest pain, claudication, other complaints. Allergies Allergy/AdvReac Type Severity Reaction Status Date / Time ragweed pollen Allergy Mild [place]GE[place] Verified 04/03/19 12:38 Home Medications Home Medications Medication Instructions Recorded Confirmed Type Novolog PenFill U-100 Insulin 10 unit SUBCUT AC 01/06/19 03/29/19 History albuterol sulfate 2 puff INHALATION Q6H PRN 01/06/19 03/29/19 History amlodipine 10 mg PO QAM 01/06/19 03/29/19 History atorvastatin 20 mg PO PM 01/06/19 03/29/19 History clonidine HCl 0.1 mg PO BID 01/06/19 03/29/19 History furosemide [Lasix] 80 mg PO BID 01/06/19 03/29/19 History hydralazine 100 mg PO TID 01/06/19 03/29/19 History loratadine 10 mg PO DAILY PRN 01/06/19 03/29/19 History sertraline 25 mg PO QAM 01/06/19 03/29/19 History tamsulosin 0.4 mg PO QAM 01/06/19 03/29/19 History Lantus Solostar U-100 Insulin 50 unit SUBCUT BID 03/06/19 03/29/19 History aspirin [Aspir-81] 81 mg PO DAILY 03/06/19 03/29/19 History carvedilol [Coreg] 12.5 mg PO BID 03/06/19 03/29/19 History clopidogrel [Plavix] 75 mg PO DAILY 03/06/19 03/29/19 History tiotropium bromide [Spiriva with 1 puff INHALATION QAM 30 Days #30 03/13/19 03/29/19 Rx HandiHaler] puffs Patient History Medical History Anemia CAD (coronary artery disease) s/p stent 2018 CKD (chronic kidney disease) Stage 4 Diabetes Dyslipidemia ESRD (end stage renal disease) HTN (hypertension) (Chronic) Sleep apnea (Chronic) does not use CPAP Surgical History AV fistula Family History Other Hypertension Social History Preferred Language: Mohawk Communication Ability: Effective Software Specialist Required: No Beliefs That Will Affect Care: None marital status: Current Living Situation: Alone Feels Safe at Home: Yes Safety Concerns: Feels Safe At This Time Smoking Status: Current every day smoker Tobacco Type: cigars ; Cigarettes Per Day: one cigar every so often, less than one a month usually ; Do You Dip or Chew Tobacco: No ; Second Hand Exposure: No ; Hx Alcohol Use: Yes Alcohol type: beer Hx Substance Use: No Review of Systems Review of Systems: All systems reviewed & are unremarkable except as noted in HPI & below Physical Exam Constitutional: WD/WN, vitals as above + obese, cooperative and comfortable; not in distress and not combative Eyes: PERRL, conjunctivae normal, anicteric sclerae ENMT: Ears: no hearing impairment Nose: no external nose abnormality Neck: trachea midline and + facial hair Respiratory: normal respiratory effort Auscultation: + diminished lung sounds and + crackles Cardiovascular: Rate/Rhythm: regular rate and regular rhythm Vessels: posterior tibial pulses present, dorsalis pedis pulses present, brachial pulses present and radial pulses present; + abnormal peripheral pulses Extremities: + edema and + AV fistula (RUE brachiobasilic AVF +thrill/bruit, incision well healed) Gastrointestinal (Abdomen): normal bowel sounds, soft, nontender, no hepatosplenomegaly Musculoskeletal: no cyanosis or clubbing, extremities motor strength 5/5 Skin: no rashes, warm and dry Neurologic: moves all extremities; no focal motor deficits and not confused Psychiatric: A+Ox3, euthymic affect Results & Data Vital Signs (Past 12 Hours) Vital Signs Temp Pulse Pulse Pulse Resp BP Pulse Ox 04/02/19 08:00 36.4 C L 55 L 16 138/88 95 04/02/19 03:49 36.4 C L 52 L 20 136/63 94 04/02/19 00:00 49 L 04/01/19 23:40 36.5 C 50 L 20 125/58 L 93
[2019-04-02] MEDS: NEPHROCAPS PO SCH (11:46)
[2019-04-02] MEDS ORDERED: CEFAZOLIN 3,000 MG in DEXTROSE 5% 50 ML IV SCH (12:00)
[2019-04-02] MEDS ORDERED: INSULIN GLARGINE SOLOSTAR 100 UNITS/ML 3 ML PEN SQ STA (20:45)
[2019-04-02] MEDS: ATORVASTATIN 20 MG TAB PO SCH (20:51)
[2019-04-03] MEDS: HEPARIN SOD 5,000 UNIT/0.5 ML VIAL SQ SCH ×3 (05:36→21:14)
[2019-04-03 05:56] LABS: Hematocrit (blood only) 32.1 % (42-52); Hemoglobin 9.7 g/dL (14.0-18.0); Mean Corpuscular Hemoglobin 26.4 pg (25-34); Mean Corpuscular Hgb Conc 30.2 g/dL (32-36); Mean Corpuscular Volume 87.5 fL (80-100); Mean Platelet Volume 9.6 fL (7.4-10.4); Platelet Count 266 K/uL (130-400); RDW Coefficient of Variation 16.8 % (11.5-14.5); RDW Standard Deviation 53.1 fL (36.4-46.3); Red Blood Count 3.67 M/uL (4.7-6.1); White Blood Count 8.43 K/uL (4.8-10.8)
[2019-04-03 06:27] LABS: BUN Creatinine Ratio 21.5 (10-20); Calcium 8.9 mg/dl (8.5-10.1); Creatinine Clr Calc Pharmacy 25.7 ml/min; Est GFR (Non-African American) 15.5; Potassium 3.8 mmol/L (3.5-5.1)
[2019-04-03] MEDS ORDERED: SODIUM CHLORIDE 0.9% 1000ML 1,000 ML IV PRN (07:00)
[2019-04-03] MEDS: FUROSEMIDE 80 MG in SYRINGE 0 ML IV SCH ×2 (07:53→21:13)
[2019-04-03] MEDS: HydrALAZINE TAB 50 MG TAB PO SCH ×3 (07:53→21:14)
[2019-04-03] MEDS: carvediloL 12.5 MG TAB PO SCH ×2 (07:54→21:14)
[2019-04-03] MEDS: SERTRALINE HCL 50 MG TABLET PO SCH (07:54)
[2019-04-03] MEDS: NEPHROCAPS PO SCH (07:54)
[2019-04-03] MEDS: cloNIDine HCL 0.1 MG TAB PO SCH ×2 (07:54→21:14)
[2019-04-03] MEDS: ASPIRIN 81 MG ECTAB PO SCH (07:54)
[2019-04-03] MEDS: TAMSULOSIN HCL 0.4 MG CAP PO SCH (07:54)
[2019-04-03] MEDS: AMLODIPINE BESYLATE 5 MG TAB PO SCH (07:55)
[2019-04-03] MEDS: CLOPIDOGREL BISULFATE 75 MG TAB PO SCH (07:55)
[2019-04-03] MEDS ORDERED: PHARMACY GLYCEMIC MGMT CONSULT SCH (08:33)
[2019-04-03] MEDS: INSULIN ASPART 100 UNITS/ML 3 ML PEN SC SCH ×5 (08:34→21:25)
[2019-04-03] MEDS: INSULIN GLARGINE SOLOSTAR 100 UNITS/ML 3 ML PEN SQ SCH ×2 (08:35→21:15)
--- NOTE | 2019-04-03 08:55 | Pharmacy Report ---
Pharmacy Glycemic Short Note 2 - Date of Service April 03, 2019 - Glycemic Short BSG Results (Last 24 hours): 04/01/19 04/02/19 04/02/19 20:15 07:10 11:24 Glucose POC Glucose 179 H 178 H 118 H 04/02/19 04/02/19 04/02/19 16:11 19:57 19:58 Glucose POC Glucose 130 H 320 H* 222 H 04/02/19 04/02/19 04/03/19 20:00 20:07 05:37 Glucose 164 H 106 H POC Glucose 474 H* 04/03/19 07:35 Glucose POC Glucose 100 H OUTPATIENT ANTIDIABETIC REGIMEN: * Lantus 50 units SQ BID * Novolog 10 units SQ with meals * A1c = 6.9% 03/30/19 - however interpret w/ caution given CKD4-5 and shortened RBC lifespan ASSESSMENT: * Type 2 diabetic admitted for ADHF * Prior admission at the end of 02/2019 reviewed, it appeared that the patient would require ~60 units in insulin per day to achieve glycemic targets while hospitalized. Current inpatient regimen will likely need scaled back. * Patient is NPO for permcath today. Will hold AM Lantus dose as fasting BSG only 100. Will resume reduced Lantus dose this evening * Will change scheduled prandial insulin dose to carb ratio to account for changing PO intake. * Please note, last evening's accucheck results were likely inaccurate as IV sample sent to the lab for confirmation were drastically different PLAN FOR INPATIENT GLYCEMIC CONTROL: * Basal insulin (dose reduction) * Lantus 15 units SQ BID * Bolus insulin * NovoLog per scale ACHS or Q6hrs while NPO * Goal Range: Low 110 mg/dL - High 140 mg/dL * Correction Factor: 20 mg/dL/unit * Nutritional / Prandial insulin per carb ratio of 1 unit per 8 grams CHO consumed PLAN FOR DISCHARGE: * To be determined.
[2019-04-03] MEDS: TIOTROPIUM BROMIDE 5 PUFF/90 MCG INH INH SCH (09:25)
[2019-04-03] MEDS: IRON SUCROSE 200 MG in 0.9 % SODIUM CHLORIDE 100 ML IV SCH (09:25)
--- NOTE | 2019-04-03 10:21 | Hospitalist Progress Note ---
Date of Service April 03, 2019 Assessment & Plan (1) CKD (chronic kidney disease), stage V: 68-year-old male with a past medical history including HFpEF, BPH, CAD, depression, diabetes mellitus, CKD stage V, hypercholesterolemia, hypertension and sleep apnea, who presented to the emergency department with worsening shortness of breath likely secondary to volume overload due the combination of CHF, CKD and obesity hypoventilation syndrome. 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 Appreciate nephrology recs. Clinical and subjective improvement Cont strict I's/O's currently in negative fluid balance, daily weights. Weight currently at lowest level. Continue carvedilol 12.5 mg BID, Clonidine 0.1 mg BID, Amlodipine 10 mg, Hydralazine 100 mg TID, Aspirin 81 mg, Clopidogrel 75 mg Chronic respiratory failure with hypoxia continue home O2 baseline 2L RADHA Has had long standing h/o noncompliance. ? sec to not knowing how to use. has home CPAP machine while hospitalized counseling on compliance and use CKD, stage 4 Daily BMP while diuresing for fluid overload as above. Pt with AVF placed at [facility] that is not ready for use yet. Plans for revision procedure with vascular surgery in May 2019 DM2 Accu-Cheks before meals and at bedtime with NovoLog coverage per scale Appreciate pharmacy recs given alternating highs and lows Anemia 03/30 pt received 37439 units of Epogen Cont Venofer 200 mg x 5 days, started 03/31 Daily CBC Constipation -Bowel regimen of milk of magnesia and miralax ordered PRN. FEN/GI: HH/DM2 Diet DVT Prophylaxis: Heparin Full Code Dispo: Discharge pending perm cath placement Supervising Physician Co-Signing Physician Notes Resident Physician Supervision Note: I independently interviewed and examined the patient and verified the roman history and physical, reviewed labs and image studies, discussed the case with the resident Dr. Umaña and agree with the findings and care plan. Subjective Pt seen this AM, standing at bedside watching television. States he was able to get his chest shaved and is no longer constipated. Denies headache, changes to vision, cough, runny nose, sore throat, N/V, abd pain, diarrhea, numbness or tingling anywhere. Review of Systems Review of Systems: All systems reviewed & are unremarkable except as noted in HPI & below Physical Exam Physical Exam: General: Alert, oriented. No acute distress Skin: No noted rashes or bruises Psych: Appropriate mood and affect Neuro: No gross deficits HEENT: NC/AT Chest: Nontender to palpation. CV: RRR, Normal s1, s2. No murmurs appreciated Resp: Breath sounds clear but decreased bilaterally, no increased effort of breathing. No crackles/rhonchi/rales. Abdomen: Soft, nontender, distended. No guarding. No organomegaly appreciated. Extremities:+ edema in lower extremities bilaterally. Results & Data Vital Signs (Past 12 Hours) Vital Signs Temp Pulse Pulse Pulse Resp BP Pulse Ox 04/03/19 07:34 36.3 C L 55 L 18 137/63 96 04/03/19 03:40 36.3 C L 58 L 20 137/65 92 04/03/19 00:00 54 L 04/02/19 23:26 36.4 C L 53 L 20 126/57 L 96 Laboratory Results Laboratory Results - last 24 hr 04/02/19 04/02/19 04/02/19 10:06 11:24 16:11 WBC RBC Hgb Hct MCV MCH MCHC RDW Std Deviation RDW Coeff of Atif Plt Count MPV Sodium Potassium Chloride Carbon Dioxide Anion Gap BUN Creatinine 4.01 H Est Cr Clr Drug Dosing Est GFR ( Amer) Est GFR (Non-Af Amer) BUN/Creatinine Ratio Glucose POC Glucose 118 H 130 H Calcium 04/02/19 04/02/19 04/02/19 19:57 19:58 20:00 WBC RBC Hgb Hct MCV MCH MCHC RDW Std Deviation RDW Coeff of Aitf Plt Count MPV Sodium Potassium Chloride Carbon Dioxide Anion Gap BUN Creatinine Est Cr Clr Drug Dosing Est GFR ( Amer) Est GFR (Non-Af Amer) BUN/Creatinine Ratio Glucose POC Glucose 320 H* 222 H 474 H* Calcium 04/02/19 04/03/19 04/03/19 20:07 05:37 05:37 WBC 8.43 RBC 3.67 L Hgb 9.7 L Hct 32.1 L MCV 87.5 MCH 26.4 MCHC 30.2 L RDW Std Deviation 53.1 H RDW Coeff of Atif 16.8 H Plt Count 266 MPV 9.6 Sodium 143 Potassium 3.8 Chloride 105 Carbon Dioxide 31 Anion Gap 7.0 BUN 82 H Creatinine 3.80 H Est Cr Clr Drug Dosing 25.7 Est GFR ( Amer) 18.0 Est GFR (Non-Af Amer) 15.5 BUN/Creatinine Ratio 21.5 H Glucose 164 H 106 H POC Glucose Calcium 8.9 04/03/19 07:35 WBC RBC Hgb Hct MCV MCH MCHC RDW Std Deviation RDW Coeff of Atif Plt Count MPV Sodium Potassium Chloride Carbon Dioxide Anion Gap BUN Creatinine Est Cr Clr Drug Dosing Est GFR ( Amer) Est GFR (Non-Af Amer) BUN/Creatinine Ratio Glucose POC Glucose 100 H Calcium Medications Administered Home Medications Novolog PenFill U-100 Insulin 10 unit SUBCUT AC 01/06/19 [History Confirmed 03/29/19] albuterol sulfate 2 puff INHALATION Q6H PRN 01/06/19 [History Confirmed 03/29/19] amlodipine 10 mg PO QAM 01/06/19 [History Confirmed 03/29/19] atorvastatin 20 mg PO PM 01/06/19 [History Confirmed 03/29/19] clonidine HCl 0.1 mg PO BID 01/06/19 [History Confirmed 03/29/19] furosemide [Lasix] 80 mg PO BID 01/06/19 [History Confirmed 03/29/19] hydralazine 100 mg PO TID 01/06/19 [History Confirmed 03/29/19] loratadine 10 mg PO DAILY PRN 01/06/19 [History Confirmed 03/29/19] sertraline 25 mg PO QAM 01/06/19 [History Confirmed 03/29/19] tamsulosin 0.4 mg PO QAM 01/06/19 [History Confirmed 03/29/19] Lantus Solostar U-100 Insulin 50 unit SUBCUT BID 03/06/19 [History Confirmed 03/29/19] aspirin [Aspir-81] 81 mg PO DAILY 03/06/19 [History Confirmed 03/29/19] carvedilol [Coreg] 12.5 mg PO BID 03/06/19 [History Confirmed 03/29/19] clopidogrel [Plavix] 75 mg PO DAILY 03/06/19 [History Confirmed 03/29/19] tiotropium bromide [Spiriva with HandiHaler] 1 puff INHALATION QAM 30 Days #30 puffs 03/13/19 [Rx Confirmed 03/29/19] Active Medications Acetaminophen (Tylenol) 650 mg PO Q4H PRN PRN Reason: Pain or Fever Stop: 04/29/19 03:33 Al Hydrox/Mg Hydrox/Simethicone (Maalox) 15 ml PO Q4H PRN PRN Reason: Dyspepsia Stop: 04/29/19 03:33 Albuterol (Ventolin Hfa) 2 puffs INH Q6H PRN PRN Reason: Shortness Of Breath Stop: 04/29/19 03:33 Amlodipine Besylate (Norvasc) 10 mg PO QAM [facility] Stop: 04/29/19 08:59 Last Admin: 04/03/19 07:55 Dose: 10 mg Documented by: Aspirin (Ecotrin Ectab) 81 mg PO DAILY [facility] Stop: 04/29/19 08:59 Last Admin: 04/03/19 07:54 Dose: 81 mg Documented by: Atorvastatin Calcium (Lipitor) 20 mg PO PM [facility] Stop: 04/29/19 20:59 Last Admin: 04/02/19 20:51 Dose: 20 mg Documented by: Carvedilol (Coreg) 12.5 mg PO BID [facility] Stop: 04/29/19 08:59 Last Admin: 04/03/19 07:54 Dose: 12.5 mg Documented by: Clonidine HCl (Catapres) 0.1 mg PO BID [facility] Stop: 04/29/19 08:59 Last Admin: 04/03/19 07:54 Dose: 0.1 mg Documented by: Clopidogrel Bisulfate (Plavix) 75 mg PO DAILY [facility] Stop: 04/29/19 08:59 Last Admin: 04/03/19 07:55 Dose: 75 mg Documented by: Dextrose (Dextrose 50%) 25 - 50 ml IV UD PRN; Protocol PRN Reason: Hypoglycemia Protocol Stop: 04/29/19 03:33 Last Admin: 04/02/19 06:52 Dose: 50 ml Documented by: Glucagon (Glucagen) 1 mg SQ UD PRN; Protocol PRN Reason: Hypoglycemia Protocol Stop: 04/29/19 03:33 Glucose (Dex4 Glucose) 4 - 8 tabs PO UD PRN; Protocol PRN Reason: Hypoglycemia Protocol Stop: 04/29/19 03:33 Glucose (Glucose 40%) 15 - 30 gm PO UD PRN; Protocol PRN Reason: Hypoglycemia Protocol Stop: 04/29/19 03:33 Heparin Sodium (Porcine) (Heparin Sodium (Porcine)) 5,000 units SQ Q8 [facility] Stop: 04/29/19 05:59 Last Admin: 04/03/19 05:36 Dose: Not Given Documented by: Hydralazine HCl (Apresoline) 100 mg PO TID [facility] Stop: 04/29/19 08:59 Last Admin: 04/03/19 07:53 Dose: 100 mg Documented by: Furosemide 80 mg/ Syringe 8 mls @ 4 mls/min IV BID [facility] Stop: 04/29/19 08:59 Last Admin: 04/03/19 07:53 Dose: 4 mls/min Documented by: Iron Sucrose 200 mg/ Sodium (Chloride) 110 mls @ 220 mls/hr IV DAILY [facility] Stop: 04/04/19 09:29 Last Admin: 04/03/19 09:25 Dose: 100 mls/hr Documented by: Sodium Chloride (Nss 1000ml) 1,000 mls @ 0 mls/hr IV .Q0M PRN PRN Reason: For Hemodialysis Use ONLY Stop: 04/03/19 12:59 Cefazolin Sodium 3,000 mg/ (Dextrose) 65 mls @ 130 mls/hr IV PREOP [facility]TONY; Protocol Stop: 04/03/19 18:00 Insulin Aspart (Novolog Flexpen) 0 units SC ACHS [facility]; Protocol Stop: 04/29/19 07:29 Last Admin: 04/03/19 08:35 Dose: Not Given Documented by: Insulin Glargine (Lantus Solostar Pen) 15 units SQ BID [facility]Y; Protocol Stop: 05/03/19 20:59 Loratadine (Claritin) 10 mg PO DAILY PRN PRN Reason: Allergy Symptoms Stop: 04/29/19 03:33 Magnesium Hydroxide (Milk Of Magnesia) 30 ml PO Q12H PRN PRN Reason: Constipation Stop: 04/29/19 03:33 Miscellaneous (Carbohydrates For Hypoglycemia) 15 - 30 gm PO UD PRN PRN Reason: Hypoglycemia Protocol Stop: 04/29/19 03:33 Miscellaneous Information (Consult Glycemic Management Pharmacy) 1 ea N/A UD [facility] Stop: 05/03/19 08:32 Ondansetron HCl (Zofran) 4 mg IV Q6H PRN PRN Reason: Nausea Stop: 04/29/19 03:33 Polyethylene Glycol (Miralax Powder Packet) 17 gm PO DAILY PRN PRN Reason: Constipation Stop: 05/01/19 09:51 Sertraline HCl (Zoloft) 25 mg PO QAM [facility] Stop: 04/29/19 08:59 Last Admin: 04/03/19 07:54 Dose: 25 mg Documented by: Tamsulosin HCl (Flomax) [facility] [place] Stop: 04/29/19 08:59 Last Admin: 04/03/19 07:54 Dose: 0.4 mg Documented by: Tiotropium [place] (Spiriva) 1 puffs INH [facility] [place] Stop: 04/29/19 08:59 Last Admin: 04/03/19 09:25 Dose: 1 puffs Documented by: Vitamin B Complex/Folic Acid (Nephrocaps) 1 cap [facility] [place] Stop: 05/02/19 10:29 Last Admin: 04/03/19 07:54 Dose: 1 cap Documented by: Resident Activity Tracking Resident Involvement: Resident Care Provided Care Provided: Adult Hospital Medicine
--- NOTE | 2019-04-03 10:52 | Nephrology Progress Note ---
Date of Service April 03, 2019 Assessment & Plan (1) ESRD (end stage renal disease): -- Only net 2200 cc diuresis w/ IV loop diuretic. Creatinine trending up. Patient w/ significant azotemia. Pulmonary exam w/rales. CXR reveals persistent CHF. -- Indications/benefits/risks/alternatives to IJ THC insertion and initiation of HD discussed at length w/ patient. He is agreeable to starting dialysis for correction of volume status -- I have spoken w/ Vascular Surgery. Patient scheduled for IJ THC this afternoon -- Will schedule 1st run HD for today. Plan 2nd dialysis treatment for continued UF in am -- Will consult child protective services social worker to set up outpatient HD at [facility] (2) CHF exacerbation: -- No significant improvement despite IV diuretic therapy. Patient now has progressive renal dysfunction (3) CAD (coronary artery disease): -- Quiescent. Remains on Carvedilol therapy (4) HTN (hypertension): -- Blood pressure currently well controlled. No change in medications at this time. (5) Anemia: -- Epogen 20,000 units SQ administered 03/30/19 -- Venofer 200 mg daily x 5 days started 03/31/19 -- Hgb is trending up. Will monitor Subjective Mr. Solorio was seen & examined in his hospital room this morning. He reports mild dyspnea and persistent LE swelling. He is agreeable to starting HD for management of volume status Review of Systems Constitutional: no fever and no chills Eyes: no worsening vision and no problem reported Ear, Nose, Mouth, Throat: no problem reported Respiratory: no cough and no dyspnea Cardiovascular: + edema; no chest pain and no palpitations Gastrointestinal: + constipation; no abdominal pain, no nausea and no vomiting Genitourinary: no hematuria Musculoskeletal: no back pain Integumentary: no rash Neurologic: no falls, no dizziness and no confusion Physical Exam Constitutional: + overweight; not in distress Eyes: PERRL, conjunctivae normal, anicteric sclerae ENMT: external ear and nose normal, oropharynx normal Neck: trachea midline, no thyromegaly Respiratory: Auscultation: + crackles Cardiovascular: Rate/Rhythm: regular rate and regular rhythm Heart Sounds: no murmur Extremities: + edema (1+ pretibial pitting edema) and + AV fistula (R BC AVF + bruit) Gastrointestinal (Abdomen): normal bowel sounds, soft, nontender, no hepatosplenomegaly Musculoskeletal: Extremities: no cyanosis Skin: no rashes, warm and dry Neurologic: awake; not confused Results & Data Vital Signs (Past 12 Hours) Vital Signs Temp Pulse Pulse Pulse Resp BP Pulse Ox 04/03/19 07:34 36.3 C L 55 L 18 137/63 96 04/03/19 03:40 36.3 C L 58 L 20 137/65 92 04/03/19 00:00 54 L 04/02/19 23:26 36.4 C L 53 L 20 126/57 L 96 Laboratory Results Laboratory Tests 04/03/19 04/03/19 05:37 05:37 WBC 8.43 Hgb 9.7 L Hct 32.1 L Plt Count 266 Sodium 143 Potassium 3.8 Chloride 105 Carbon Dioxide 31 BUN 82 H Creatinine 3.80 H Glucose 106 H PG Care Time/CCT Total # of Minutes Spent Total Time Spent with Patient: Total time spent is greater than 50% in coordination of care (as documented) at patient's floor/unit and/or counseling patient: (1) CHF exacerbation Heart failure type: unspecified Qualified Code(s): I50.9 - Heart failure, unspecified (2) CAD (coronary artery disease) Coronary Disease-Associated Artery/Lesion type: [place] artery [place] vs. transplanted heart: [place] heart Associated angina: without angina Qualified Code(s): I25.10 - Atherosclerotic heart disease of [place] coronary artery withou t angina pectoris (3) HTN (hypertension) Hypertension type: essential hypertension Qualified Code(s): I10 - Essential (primary) hypertension (4) Anemia Anemia type: unspecified type Qualified Code(s): D64.9 - Anemia, unspecified
[2019-04-03] MEDS ORDERED: CEFAZOLIN 3,000 MG in DEXTROSE 5% 50 ML IV SCH (12:00)
[2019-04-03] MEDS ORDERED: CEFAZOLIN 1000MG 1,000 MG/7.5 ML SYR IV ONE (12:00)
[2019-04-03] MEDS ORDERED: CEFAZOLIN 3000MG/72.5 ML BAG IV ONE (12:06)
[2019-04-03] MEDS ORDERED: LIDOCAINE HCL 1% 20 ML VIAL ONE (12:55)
[2019-04-03] MEDS ORDERED: HEPARIN SOD (PORCINE) 5,000 UNITS/ML VIAL ONE (12:55)
--- NOTE | 2019-04-03 13:13 | History & Physical Bridge Note ---
Date of Service April 03, 2019 History & Physical Bridge Note Patient for insertion of a permcath. I have discussed the risks options and benefits of the procedure with the patient. The patient understands the risks options and benefits and agrees to the procedure. I have examined the patient, reviewed the History & Physical and in the interval since the performance of the History & Physical I have noted the following changes of clinical significance: no changes noted
--- NOTE | 2019-04-03 13:14 | Pre Anesthesia Assessment ---
Date of Service April 03, 2019 Pre Sedation Assessment Vital Signs Temp Pulse Pulse Pulse Resp BP Pulse Ox 04/03/19 12:34 36.6 C 59 L 20 137/61 91 04/03/19 11:25 36.6 C 57 L 18 132/63 98 04/03/19 07:34 36.3 C L 55 L 18 137/63 96 04/03/19 03:40 36.3 C L 58 L 20 137/65 92 04/03/19 00:00 54 L 04/02/19 23:26 36.4 C L 53 L 20 126/57 L 96 04/02/19 19:30 36.7 C 60 18 129/64 96 04/02/19 15:39 36.5 C 56 L 20 134/57 L 99 Cardiovascular RRR, no murmur, no edema Respiratory normal respiratory effort, lungs clear to auscultation Pre-Sedation Airway Assessment Smoking Status: Current every day smoker Hx Sleep Apnea: Yes Short, Thick Neck: No Thyromental Distance: > or= 3.5 Finger Breadths Oral Cavity: + WNL Mallampati Class: I ASA: ASA4 NPO Status Date of Last Intake of Fluids: 04/02/19 Time of Last Intake of Fluids: 21:00 Date of Last Intake of Solid Food: 04/02/19 Time of Last Intake of Solid Foods: 21:00 Procedure Planning Contraindications for Sedation: none Current Medications Reviewed: Yes Notes The planned sedation has been discussed with the patient. Informed Consent was obtained. I have identified the patient, determined the appropriateness of sedation and have assessed the patient immediately prior to the procedure. All medicine(s) and interventions are by my order.
[2019-04-03] MEDS ORDERED: fentaNYL citrate 100 MCG/2 ML VIAL ONE (13:25)
[2019-04-03] MEDS ORDERED: MIDAZOLAM HCL 1 MG/ML 2ML VIAL ONE (13:25)
--- NOTE | 2019-04-03 13:58 | Post Operative Brief Note ---
Immediate Post Op Note v1 Date of Surgery April 03, 2019 Pre & Post Diagnosis Operation Date: 04/03/19 13:00 Pre-Op Diagnosis: End Stage Renal Disease I identified the patient and participated in the time-out.: Yes Procedure Operation Date: 04/03/19 13:00 Actual Procedures p Perm Catheter Placement Right Jugular Vein, Ultrasound Localization of Right Jugular Vein, Fluoroscopy for Positioning, Moderate Sedation [id number](Right) - Kirby Rios MD Surgeon Kirby Rios MD Client Service Representative MD Yossi Estimated Blood Loss 3 Findings Consistent with Post-Op Diagnosis Anesthesia Type RN Sedation Complications none Disposition Accompanied Patient To Recovery: No Disposition: Recovery Room
--- NOTE | 2019-04-03 14:04 | Operative Report ---
Post Operative Report Pre & Post Diagnosis Operation Date: 04/03/19 13:00 Pre-Op Diagnosis: End Stage Renal Disease Post-Op Diagnosis: End Stage Renal Disease I identified the patient and participated in the time-out.: Yes Procedure Operation Date: 04/03/19 13:00 Actual Procedures p Perm Catheter Placement Right Jugular Vein, Ultrasound Localization of Right Jugular Vein, Fluoroscopy for Positioning, Moderate Sedation 1342-(Right) - Kirby Rios MD Surgeon Kirby Rios MD Clinical Business Manager MD Yossi Estimated Blood Loss 3 Findings Consistent with Post-Op Diagnosis Specimens none Anesthesia Type RN Sedation Complications none Disposition Accompanied Patient To Recovery: No Disposition: Recovery Room Indications Mr. Solorio is a 68 yo male with multiple medical problems, including CKD, CHF, DMII, CAD, BPH, and HTN who was admitted with worsening renal fxn and CHF. Pt states he has known he will eventually need HD. He had a RUE brachiobasilic AVF created at the [facility] approx 2 months ago, but is not scheduled for the transposition until early May. Plan for permcath placement was discussed with pt. I have discussed the risks options and benefits of the procedure with the patient. The patient understands the risks options and benefits and agrees to the procedure. Description of Procedure Patient was taken to the angio suite and placed in the supine position. The [right] side of the neck and chest wall were prepped and draped in a sterile manner. Local anesthesia was then administered to the appropriate areas of the neck and chest wall. Ultrasound was then used to locate the [right] internal jugular vein. The vein compressed easily, had no filing defects, and was patent. The vein was then punctured under direct ultrasound imaging. A guidewire was then passed centrally under fluoroscopic imaging. A stab wound was then made in the anterior chest wall and a [19] cm permcath was passed from the stab wound on the chest wall to the puncture site on the neck. The puncture site was then dilated till the 14Fr peel away sheath was inserted. The permcath was then inserted through the sheath to a central position in the distal superior vena cava. The peel away sheath was then removed. The catheter was then sutured in place using nylon sutures. The puncture was then closed using a 4-0 Vicryl subcuticular suture. Dermabond was used for a dressing on the puncture site. Both ports aspirated and flushed easily and were then packed with heparin. A sterile dressing was applied to the catheter. The patient left the angio suite in good condition and tolerated the procedure well. 8 min fluoro time and [address] Rios was present and scrubbed for the entire procedure. I attest to the content of the Intraoperative Record and any orders documented therein. Any exceptions are noted below.
--- NOTE | 2019-04-03 15:12 | Post Anesthesia Assessment ---
Date of Service April 03, 2019 Post Sedation Assessment Vital Signs Temp Pulse Pulse Pulse Resp BP Pulse Ox 04/03/19 14:45 36.8 C 68 68 20 131/78 97 04/03/19 14:08 72 16 189/74 H 94 04/03/19 14:03 64 17 159/87 H 94 04/03/19 14:02 64 17 159/87 H 96 04/03/19 13:57 66 17 140/66 97 04/03/19 13:52 64 17 168/89 H 98 04/03/19 13:47 64 17 170/79 H 98 04/03/19 13:42 66 21 171/78 H 99 04/03/19 13:35 65 20 177/85 H 96 04/03/19 12:34 36.6 C 59 L 20 137/61 91 04/03/19 11:25 36.6 C 57 L 18 132/63 98 04/03/19 07:34 36.3 C L 55 L 18 137/63 96 04/03/19 03:40 36.3 C L 58 L 20 137/65 92 04/03/19 00:00 54 L 04/02/19 23:26 36.4 C L 53 L 20 126/57 L 96 04/02/19 19:30 36.7 C 60 18 129/64 96 04/02/19 15:39 36.5 C 56 L 20 134/57 L 99 Recovery Score Activity: Moves 4 extremities Respiration: Deep Breath/Cough Circulation: +/-20% PreAnes Value Consciousness: Fully Awake Oxygen Saturation: > 92% On Room Air Post Anesthesia Score: 10 Discharge Sedation Level of Care: Fast Track Phase II Post Sedation Plan On clinical assessment, the patient appears to have tolerated the sedation without complications. Patient is recovering as anticipated. Patient will continue to be monitored by nursing and may be discharged when sedation discharge criteria are met per below protocol. Upon Completions of procedure up to 15 minutes continue every 5 minute vital signs and the P.A.R. score; then discharge to a Phase I or Fast Track to Phase II per the following guidelines: * Discharge Patient to appropriate Phase II area if PAR is 8 or greater or return to pre- procedure baseline. The post - procedure orders will be as directed. * If PAR score is less than 8 or not return to pre-procedure baseline then patient will follow Phase I monitoring till PAR is reached for Phase II. The Phase I may be done in procedure room or may call to secure a Phase I area. * If naloxone or flumazenil are used for reversal, hold in Phase I for continued monitoring from when last reversal dose was given for a minimum of 60 minutes or longer pending the nurse and/or physician discretion of patient condition before discharge to Phase II. Please call the Sedation Physician to re-evaluate and complete post-note for discharge to Phase II area. Do NOT discharge from procedure sedation or Phase 1 until post- sedation evaluation note is complete by procedure /sedation MD Sedation Discharge Instructions to be given to the patient at discharge to home.
[2019-04-03] MEDS: ATORVASTATIN 20 MG TAB PO SCH (21:14)
[2019-04-03 21:41] LABS: Patient Weight 126.5 kg
[2019-04-03 22:20] LABS: Urine Total Protein 10.8 mg/dl
[2019-04-03 22:23] LABS: Urine Creatinine 64.4 mg/dl
[2019-04-03 22:27] LABS: Creatinine Clearance Urine 17.3 ml/min (97-137)
[2019-04-04 05:48] LABS: Hematocrit (blood only) 31.5 % (42-52); Hemoglobin 9.5 g/dL (14.0-18.0); Mean Corpuscular Hemoglobin 26.5 pg (25-34); Mean Corpuscular Hgb Conc 30.2 g/dL (32-36); Mean Corpuscular Volume 87.7 fL (80-100); Mean Platelet Volume 9.6 fL (7.4-10.4); Platelet Count 231 K/uL (130-400); RDW Coefficient of Variation 16.7 % (11.5-14.5); RDW Standard Deviation 53.1 fL (36.4-46.3); Red Blood Count 3.59 M/uL (4.7-6.1); White Blood Count 8.91 K/uL (4.8-10.8)
[2019-04-04 06:21] LABS: BUN Creatinine Ratio 19.8 (10-20); Calcium 8.8 mg/dl (8.5-10.1); Est GFR (African American) 19.8; Est GFR (Non-African American) 17.1
[2019-04-04] MEDS: HEPARIN SOD 5,000 UNIT/0.5 ML VIAL SQ SCH ×3 (06:42→21:10)
[2019-04-04] MEDS ORDERED: SODIUM CHLORIDE 0.9% 1000ML 1,000 ML IV PRN (07:00)
[2019-04-04] MEDS ORDERED: HEPARIN SOD (PORCINE) 1000 UNIT/ML 10 ML VIAL IV SCH (07:00)
[2019-04-04] MEDS ORDERED: EPOETIN ALFA 10,000 UNITS/ML VIAL IV SCH (07:00)
[2019-04-04] MEDS: INSULIN GLARGINE SOLOSTAR 100 UNITS/ML 3 ML PEN SQ SCH ×2 (08:11→21:14)
[2019-04-04] MEDS: INSULIN ASPART 100 UNITS/ML 3 ML PEN SC SCH ×4 (08:12→21:12)
[2019-04-04] MEDS: TAMSULOSIN HCL 0.4 MG CAP PO SCH (11:51)
[2019-04-04] MEDS: cloNIDine HCL 0.1 MG TAB PO SCH ×2 (11:51→21:09)
[2019-04-04] MEDS: SERTRALINE HCL 50 MG TABLET PO SCH (11:51)
[2019-04-04] MEDS: FUROSEMIDE 80 MG in SYRINGE 0 ML IV SCH ×2 (11:52→21:10)
[2019-04-04] MEDS: NEPHROCAPS PO SCH (11:52)
[2019-04-04] MEDS: ASPIRIN 81 MG ECTAB PO SCH (11:52)
[2019-04-04] MEDS: carvediloL 12.5 MG TAB PO SCH ×2 (11:52→21:09)
[2019-04-04] MEDS: HydrALAZINE TAB 50 MG TAB PO SCH ×3 (11:52→21:09)
[2019-04-04] MEDS: CLOPIDOGREL BISULFATE 75 MG TAB PO SCH (11:52)
[2019-04-04] MEDS: AMLODIPINE BESYLATE 5 MG TAB PO SCH (11:53)
[2019-04-04] MEDS: IRON SUCROSE 200 MG in 0.9 % SODIUM CHLORIDE 100 ML IV SCH (11:59)
--- NOTE | 2019-04-04 12:25 | Dialysis Progress Note ---
Date of Service April 04, 2019 Assessment & Plan (1) ESRD (end stage renal disease): -- 24 hour urine Clcr 17 cc/min however patient requires HD for volume management. He has had 3 recent hospitalizations due to CHF -- 1st HD treatment completed yesterday. IJ THC functioned without co mplication. Plan 2nd dialysis treatment for today -- Will consult social science teacher to set up outpatient HD at [facility] (2) CHF exacerbation: -- Patient developed progressive renal dysfunction in the setting of diuretic therapy (3) CAD (coronary artery disease): -- Quiescent. Remains on Carvedilol therapy (4) HTN (hypertension): -- Blood pressure currently well controlled. No change in medications at this time. (5) Anemia: -- Venofer 200 mg daily x 5 days started 03/31/19 -- Hgb is trending up. Will monitor Subjective Mr. Solorio was seen & examined in his hospital room this morning. He complains of mild discomfort at the site of his IJ THC but denies angina or dyspnea. He reports cramping at the end of his dialysis treatment yesterday. Review of Systems Constitutional: no fever, no chills and no weakness Eyes: no worsening vision and no problem reported Ear, Nose, Mouth, Throat: no problem reported Respiratory: no cough and no dyspnea Cardiovascular: + edema; no chest pain and no palpitations Gastrointestinal: + constipation; no abdominal pain, no nausea and no vomiting Genitourinary: no dysuria, no urinary hesitancy and no hematuria Musculoskeletal: no back pain Integumentary: no rash Neurologic: no falls, no dizziness and no confusion Physical Exam Constitutional: + overweight; not in distress Eyes: PERRL, conjunctivae normal, anicteric sclerae ENMT: external ear and nose normal, oropharynx normal Neck: trachea midline, no thyromegaly Respiratory: normal respiratory effort, lungs clear to auscultation normal respiratory effort Auscultation: + crackles Cardiovascular: Rate/Rhythm: regular rate and regular rhythm Heart Sounds: no murmur Extremities: + edema (1+ pretibial pitting edema) and + AV fistula (R BC AVF + bruit) Gastrointestinal (Abdomen): normal bowel sounds, soft, nontender, no hepatosplenomegaly Musculoskeletal: Extremities: no cyanosis Skin: no rashes, warm and dry Neurologic: awake; not confused Results & Data Vital Signs (Past 12 Hours) Vital Signs Temp Pulse Pulse Resp BP BP Pulse Ox 04/04/19 11:10 36.6 C 77 173/71 H 04/04/19 10:40 58 L 138/70 04/04/19 10:20 56 L 136/62 04/04/19 10:00 55 L 133/68 04/04/19 09:40 61 158/74 H 04/04/19 09:20 53 L 177/66 H 04/04/19 09:00 60 147/64 H 04/04/19 08:48 36.6 C 61 04/04/19 07:16 36.5 C 55 L 20 141/65 H 92 04/04/19 03:09 36.3 C L 55 L 18 145/64 H 95 Laboratory Results Laboratory Tests 04/04/19 04/04/19 05:31 05:31 WBC 8.91 Hgb 9.5 L Hct 31.5 L Plt Count 231 Sodium 138 Potassium 4.0 Chloride 103 Carbon Dioxide 29 BUN 69 H Creatinine 3.51 H (1) CHF exacerbation Heart failure type: unspecified Qualified Code(s): I50.9 - Heart failure, unspecified (2) CAD (coronary artery disease) Coronary Disease-Associated Artery/Lesion type: [place] artery [place] vs. transplanted heart: [place] heart Associated angina: without angina Qualified Code(s): I25.10 - Atherosclerotic heart disease of [place] coronary artery without angina pectoris (3) HTN (hypertension) Hypertension type: essential hypertension Qualified Code(s): I10 - Essential (primary) hypertension (4) Anemia Anemia type: unspecified type Qualified Code(s): D64.9 - Anemia, unspecified
[2019-04-04] MEDS: TIOTROPIUM BROMIDE 5 PUFF/90 MCG INH INH SCH (12:45)
--- NOTE | 2019-04-04 13:27 | Pharmacy Report ---
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 Current inpatient regimen will likely need scaled back. * Patient is NPO for permcath today. Will hold AM Lantus dose as fasting BSG only 100. Will resume reduced Lantus dose this evening * Will change scheduled prandial insulin dose to carb ratio to account for changing PO intake. * Please note, last evening's accucheck results were likely inaccurate as IV sample sent to the lab for confirmation were drastically different PLAN FOR INPATIENT GLYCEMIC CONTROL: * Basal insulin (dose reduction) * Lantus 15 units SQ BID * Bolus insulin * NovoLog per scale ACHS or Q6hrs while NPO * Goal Range: Low 110 mg/dL - High 140 mg/dL * Correction Factor: 20 mg/dL/unit * Nutritional / Prandial insulin per carb ratio of 1 unit per 8 grams CHO consumed PLAN FOR DISCHARGE: * To be determined.
--- NOTE | 2019-04-04 17:41 | Hospitalist Progress Note ---
Date of Service April 04, 2019 Assessment & Plan (1) CKD (chronic kidney disease), stage V: 68-year-old male with a past medical history including HFpEF, BPH, CAD, depression, diabetes mellitus, CKD stage V, hypercholesterolemia, hypertension and sleep apnea, who presented to the emergency department with worsening shortness of breath likely secondary to volume overload due the combination of CHF, CKD and obesity hypoventilation syndrome. 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 Dialysis catheter placed 04/03, had one round of HD and repeat on 04/04. _ fluid removed. Continue Lasix 80 mg IV BID daily for neg fluid balance. Appreciate nephrology recs. Clinical and subjective improvement Cont strict I's/O's currently in negative fluid balance, daily weights. Weight currently at lowest level. Continue carvedilol 12.5 mg BID, Clonidine 0.1 mg BID, Amlodipine 10 mg, Hydralazine 100 mg TID, Aspirin 81 mg, Clopidogrel 75 mg Chronic respiratory failure with hypoxia continue home O2 baseline 2L RADHA Has had long standing h/o noncompliance. using it here. CKD, stage 4 Dialysis catheter placed 04/03 for fluid overload, had one round of HD and repeat on 04/04. Net UF of 500. Daily BMP while diuresing for fluid overload as above. Pt with AVF placed at [facility] that is not ready for use yet. Plans for revision procedure with vascular surgery in May 2019 Currently being transitioned to outpatient HD facility. DM2 Accu-Cheks before meals and at bedtime with NovoLog coverage per scale Appreciate pharmacy recs given alternating highs and lows Anemia 03/30 pt received 36559 units of Epogen Cont Venofer 200 mg x 5 days, started 03/31 Daily CBC Constipation -Bowel regimen of milk of magnesia and miralax ordered PRN. FEN/GI: HH/DM2 Diet DVT Prophylaxis: Heparin Full Code Dispo: Discharge pending outpt hemodialysis being set up by CM. Supervising Physician Co-Signing Physician Notes Resident Physician Supervision Note: I independently interviewed and examined the patient and verified the roman history and physical, reviewed labs and image studies, discussed the case with the resident Dr. Umaña and agree with the findings and care plan. Subjective Mr. Solorio seen this AM, in no acute distress. Had HD the day before, was prepared to have another session. Denies any headache, changes to vision, cough, runny nose, sore throat, dizziness, weakness, chest pain, SOB, palpitations, abdominal pain, diarrhea or constipation or numbness or tingling anywhere. Review of Systems Review of Systems: All systems reviewed & are unremarkable except as noted in HPI & below Physical Exam Physical Exam: General: Alert, oriented. No acute distress Skin: No noted rashes or bruises Psych: Appropriate mood and affect Neuro: No gross deficits HEENT: NC/AT Chest: Nontender to palpation. CV: RRR, Normal s1, s2. No murmurs appreciated Resp: Breath sounds clear but decreased bilaterally, no increased effort of breathing. No crackles/rhonchi/rales. Abdomen: Soft, nontender, distended. No guarding. No organomegaly appreciated. Extremities:+ edema in lower extremities bilaterally. Results & Data Vital Signs (Past 12 Hours) Vital Signs Temp Pulse Pulse Pulse Resp BP BP 04/04/19 15:47 36.4 C L 53 L 17 131/58 L 04/04/19 11:10 36.6 C 77 173/71 H 04/04/19 10:40 58 L 138/70 04/04/19 10:20 56 L 136/62 04/04/19 10:00 55 L 133/68 04/04/19 09:40 61 158/74 H 04/04/19 09:20 53 L 177/66 H 04/04/19 09:00 60 147/64 H 04/04/19 08:48 36.6 C 61 04/04/19 07:16 36.5 C 55 L 20 141/65 H Pulse Ox 04/04/19 15:47 94 04/04/19 11:10 04/04/19 10:40 04/04/19 10:20 04/04/19 10:00 04/04/19 09:40 04/04/19 09:20 04/04/19 09:00 04/04/19 08:48 04/04/19 07:16 92 Laboratory Results Laboratory Results - last 24 hr 04/03/19 04/03/19 04/03/19 20:20 20:30 20:30 WBC RBC Hgb Hct MCV MCH MCHC RDW Std Deviation RDW Coeff of Atif Plt Count MPV Sodium Potassium Chloride Carbon Dioxide Anion Gap BUN Creatinine Est Cr Clr Drug Dosing Est GFR ( Amer) Est GFR (Non-Af Amer) BUN/Creatinine Ratio Glucose POC Glucose 159 H Calcium Urine Collection Time 24 Urine Total Volume 2064 2064 Urine Creatinine 64.4 Ur Creatinine 24 Hour 1.3 Creatinine Clearance 17.3 L Ur Total Protein 24 Hr 223.0 H Urine Total Protein 10.8 04/04/19 04/04/19 04/04/19 05:31 05:31 07:12 WBC 8.91 RBC 3.59 L Hgb 9.5 L Hct 31.5 L MCV 87.7 MCH 26.5 MCHC 30.2 L RDW Std Deviation 53.1 H RDW Coeff of Atif 16.7 H Plt Count 231 MPV 9.6 Sodium 138 Potassium 4.0 Chloride 103 Carbon Dioxide 29 Anion Gap 6.0 BUN 69 H Creatinine 3.51 H Est Cr Clr Drug Dosing 28.0 Est GFR ( Amer) 19.8 Est GFR (Non-Af Amer) 17.1 BUN/Creatinine Ratio 19.8 Glucose 123 H POC Glucose 124 H Calcium 8.8 Urine Collection Time Urine Total Volume Urine Creatinine Ur Creatinine 24 Hour Creatinine Clearance Ur Total Protein 24 Hr Urine Total Protein 04/04/19 04/04/19 11:58 16:21 WBC RBC Hgb Hct MCV MCH MCHC RDW Std Deviation RDW Coeff of Atif Plt Count MPV Sodium Potassium Chloride Carbon Dioxide Anion Gap BUN Creatinine Est Cr Clr Drug Dosing Est GFR ( Amer) Est GFR (Non-Af Amer) BUN/Creatinine Ratio Glucose POC Glucose 153 H 102 H Calcium Urine Collection Time Urine Total Volume Urine Creatinine Ur Creatinine 24 Hour Creatinine Clearance Ur Total Protein 24 Hr Urine Total Protein Medications Administered Home Medications Novolog PenFill U-100 Insulin 10 unit SUBCUT AC 01/06/19 [History Confirmed 03/29/19] albuterol sulfate 2 puff INHALATION Q6H PRN 01/06/19 [History Confirmed 03/29/19] amlodipine 10 mg PO QAM 01/06/19 [History Confirmed 03/29/19] atorvastatin 20 mg PO PM 01/06/19 [History Confirmed 03/29/19] clonidine HCl 0.1 mg PO BID 01/06/19 [History Confirmed 03/29/19] furosemide [Lasix] 80 mg PO BID 01/06/19 [History Confirmed 03/29/19] hydralazine 100 mg PO TID 01/06/19 [History Confirmed 03/29/19] loratadine 10 mg PO DAILY PRN 01/06/19 [History Confirmed 03/29/19] sertraline 25 mg PO QAM 01/06/19 [History Confirmed 03/29/19] tamsulosin 0.4 mg PO QAM 01/06/19 [History Confirmed 03/29/19] Lantus Solostar U-100 Insulin 50 unit SUBCUT BID 03/06/19 [History Confirmed 03/29/19] aspirin [Aspir-81] 81 mg PO DAILY 03/06/19 [History Confirmed 03/29/19] carvedilol [Coreg] 12.5 mg PO BID 03/06/19 [History Confirmed 03/29/19] clopidogrel [Plavix] 75 mg PO DAILY 03/06/19 [History Confirmed 03/29/19] tiotropium bromide [Spiriva with HandiHaler] 1 puff INHALATION QA 30 Days #30 puffs 03/13/19 [Rx Confirmed 03/29/19] Active Medications Acetaminophen (Tylenol) 650 mg PO Q4H PRN PRN Reason: Pain or Fever Stop: 04/29/19 03:33 Al Hydrox/Mg Hydrox/Simethicone (Maalox) 15 ml PO Q4H PRN PRN Reason: Dyspepsia Stop: 04/29/19 03:33 Albuterol (Ventolin Hfa) 2 puffs INH Q6H PRN PRN Reason: Shortness Of Breath Stop: 04/29/19 03:33 Amlodipine Besylate (Norvasc) 10 mg PO QAM [facility] Stop: 04/29/19 08:59 Last Admin: 04/04/19 11:53 Dose: 10 mg Documented by: Aspirin (Ecotrin Ectab) 81 mg PO DAILY [facility] Stop: 04/29/19 08:59 Last Admin: 04/04/19 11:52 Dose: 81 mg Documented by: Atorvastatin Calcium (Lipitor) 20 mg PO PM [facility] Stop: 04/29/19 20:59 Last Admin: 04/03/19 21:14 Dose: 20 mg Documented by: Carvedilol (Coreg) 12.5 mg PO BID [facility] Stop: 04/29/19 08:59 Last Admin: 04/04/19 11:52 Dose: 12.5 mg Documented by: Clonidine HCl (Catapres) 0.1 mg PO BID [facility] Stop: 04/29/19 08:59 Last Admin: 04/04/19 11:51 Dose: 0.1 mg Documented by: Clopidogrel Bisulfate (Plavix) 75 mg PO DAILY [facility] Stop: 04/29/19 08:59 Last Admin: 04/04/19 11:52 Dose: 75 mg Documented by: Dextrose (Dextrose 50%) 25 - 50 ml IV UD PRN; Protocol PRN Reason: Hypoglycemia Protocol Stop: 04/29/19 03:33 Last Admin: 04/02/19 06:52 Dose: 50 ml Documented by: Epoetin Jean (Procrit) 10,000 units IV TODAY@0700 [facility] Stop: 04/04/19 18:00 Last Admin: 04/04/19 11:40 Dose: 10,000 units Documented by: Glucagon (Glucagen) 1 mg SQ UD PRN; Protocol PRN Reason: Hypoglycemia Protocol Stop: 04/29/19 03:33 Glucose (Dex4 Glucose) 4 - 8 tabs PO UD PRN; Protocol PRN Reason: Hypoglycemia Protocol Stop: 04/29/19 03:33 Glucose (Glucose 40%) 15 - 30 gm PO UD PRN; Protocol PRN Reason: Hypoglycemia Protocol Stop: 04/29/19 03:33 Heparin Sodium (Porcine) (Heparin Sodium (Porcine)) 5,000 units SQ Q8 [facility] Stop: 04/29/19 05:59 Last Admin: 04/04/19 14:42 Dose: 5,000 units Documented by: Heparin Sodium (Porcine) (Heparin Iv Bolus) 2,000 units IV TODAY@0700 [facility] Stop: 04/04/19 18:00 Last Admin: 04/04/19 11:40 Dose: Not Given Documented by: Heparin Sodium (Porcine) (Heparin Iv Bolus) 2,000 units IV ONE ONE Stop: 04/05/19 07:01 Heparin Sodium (Porcine) (Heparin Iv Bolus) 500 units IV Q1H [facility] Stop: 04/05/19 09:01 Hydralazine HCl (Apresoline) 100 mg PO TID [facility] Stop: 04/29/19 08:59 Last Admin: 04/04/19 14:42 Dose: 100 mg Documented by: Furosemide 80 mg/ Syringe 8 mls @ 4 mls/min IV BID [facility] Stop: 04/29/19 08:59 Last Admin: 04/04/19 11:52 Dose: 4 mls/min Documented by: Sodium Chloride (Nss 1000ml) 1,000 mls @ 0 mls/hr IV .Q0M PRN PRN Reason: For Hemodialysis Use ONLY Stop: 04/05/19 12:59 Insulin Aspart (Novolog Flexpen) 0 units SC ACHS [facility]; Protocol Stop: 04/29/19 07:29 Last Admin: 04/04/19 17:26 Dose: 7 units Documented by: Insulin Glargine (Lantus Solostar Pen) 15 units SQ BID [facility]; Protocol Stop: 05/03/19 20:59 Last Admin: 04/04/19 08:11 Dose: 15 units Documented by: Loratadine (Claritin) 10 mg PO DAILY PRN PRN Reason: Allergy Symptoms Stop: 04/29/19 03:33 Magnesium Hydroxide (Milk Of Magnesia) 30 ml PO Q12H PRN PRN Reason: Constipation Stop: 04/29/19 03:33 Miscellaneous (Carbohydrates For Hypoglycemia) 15 - 30 gm PO UD PRN PRN Reason: Hypoglycemia Protocol Stop: 04/29/19 03:33 Miscellaneous Information (Consult Glycemic Management Pharmacy) 1 ea N/A UD [facility] Stop: 05/03/19 08:32 Ondansetron HCl (Zofran) 4 mg IV Q6H PRN PRN Reason: Nausea Stop: 04/29/19 03:33 Polyethylene Glycol (Miralax Powder Packet) 17 gm PO DAILY PRN PRN Reason: Constipation Stop: 05/01/19 09:51 Last Admin: 04/04/19 14:48 Dose: 17 gm Documented by: Sertraline HCl (Zoloft) 25 mg PO QAM [facility] Stop: 04/29/19 08:59 Last Admin: 04/04/19 11:51 Dose: 25 mg Documented by: Tamsulosin HCl (Flomax) 0.4 mg PO QAM [facility] Stop: 04/29/19 08:59 Last Admin: 04/04/19 11:51 Dose: 0.4 mg Documented by: Tiotropium [place] (Spiriva) 1 puffs INH QAM [facility] Stop: 04/29/19 08:59 Last Admin: 04/04/19 12:45 Dose: 1 puffs Documented by: Vitamin B Complex/Folic Acid (Nephrocaps) 1 cap PO QAM [facility] Stop: 05/02/19 10:29 Last Admin: 04/04/19 11:52 Dose: 1 cap Documented by: Resident Activity Tracking Resident Involvement: Resident Care Provided Care Provided: Adult Hospital Medicine
[2019-04-04] MEDS: ATORVASTATIN 20 MG TAB PO SCH (21:09)
[2019-04-05 05:50] LABS: Basophils # (auto) 0.02 K/uL (0-0.2); Basophils % (auto) 0.3 %; Eosinophils # (auto) 0.27 K/uL (0-0.5); Eosinophils % (auto) 3.6 %; Hematocrit (blood only) 33.1 % (42-52); Immature Granulocytes # (auto) 0.02 K/uL (0.00-0.02); Immature Granulocytes % (auto) 0.3 %; Lymphocytes # (auto) 0.66 K/uL (1.2-3.4); Lymphocytes % (auto) 8.9 %; Mean Corpuscular Hemoglobin 26.5 pg (25-34); Mean Corpuscular Hgb Conc 30.2 g/dL (32-36); Mean Corpuscular Volume 87.8 fL (80-100); Mean Platelet Volume 9.8 fL (7.4-10.4); Monocytes # (auto) 0.98 K/uL (0.11-0.59); Monocytes % (auto) 13.2 %; Neutrophils # (auto) 5.45 K/uL (1.4-6.5); Neutrophils % (auto) 73.7 %; Platelet Count 207 K/uL (130-400); RDW Coefficient of Variation 16.9 % (11.5-14.5); RDW Standard Deviation 53.6 fL (36.4-46.3); Red Blood Count 3.77 M/uL (4.7-6.1)
[2019-04-05 06:18] LABS: Albumin Level 3.2 gm/dl (3.4-5.0); BUN Creatinine Ratio 17.9 (10-20); Calcium 9.2 mg/dl (8.5-10.1); Creatinine Clr Calc Pharmacy 27.8 ml/min; Est GFR (Non-African American) 17.2; Potassium 4.1 mmol/L (3.5-5.1)
[2019-04-05 06:21] LABS: Albumin Globulin Ratio 0.7 (0.9-2); Bilirubin,Total 0.4 mg/dl (0.2-1); Globulin 4.4 gm/dl (2.5-4.0); Total Protein 7.6 gm/dl (6.4-8.2)
[2019-04-05] MEDS: HEPARIN SOD 5,000 UNIT/0.5 ML VIAL SQ SCH ×2 (06:34→14:03)
[2019-04-05] MEDS ORDERED: SODIUM CHLORIDE 0.9% 1000ML 1,000 ML IV PRN (07:00)
[2019-04-05] MEDS ORDERED: HEPARIN SOD (PORCINE) 1000 UNIT/ML 10 ML VIAL IV ONE (07:00)
[2019-04-05] MEDS: CLOPIDOGREL BISULFATE 75 MG TAB PO SCH (08:07)
[2019-04-05] MEDS: ASPIRIN 81 MG ECTAB PO SCH (08:07)
[2019-04-05] MEDS: SERTRALINE HCL 50 MG TABLET PO SCH (08:07)
[2019-04-05] MEDS: NEPHROCAPS PO SCH (08:07)
[2019-04-05] MEDS: TAMSULOSIN HCL 0.4 MG CAP PO SCH (08:07)
[2019-04-05] MEDS: TIOTROPIUM BROMIDE 5 PUFF/90 MCG INH INH SCH (08:08)
[2019-04-05] MEDS: INSULIN ASPART 100 UNITS/ML 3 ML PEN SC SCH ×2 (08:13→14:13)
[2019-04-05] MEDS ORDERED: INSULIN GLARGINE SOLOSTAR 100 UNITS/ML 3 ML PEN SQ SCH (09:00)
--- NOTE | 2019-04-05 12:28 | Nephrology Progress Note ---
Date of Service April 05, 2019 Assessment & Plan (1) ESRD (end stage renal disease): -- 1st HD treatment completed 04/03 item. [facility] functioned without complication. 2nd and 3rd treatment have been complicated by cramps in his legs -- office services associate to set up outpatient HD at [facility] (2) CHF exacerbation: -- Patient developed progressive renal dysfunction in the setting of diuretic therapy (3) CAD (coronary artery disease): -- Quiescent. Remains on Carvedilol therapy (4) HTN (hypertension): -- Blood pressure currently well controlled. No change in medications at this time. (5) Anemia: -- Venofer 200 mg daily x 5 days started 03/31/19 -- Hgb is trending up. Will monitor Subjective No acute events overnight. Hemodialysis yesterday complicated by leg cramps. Angel developed cramps during dialysis today necessitating stopping treatment. This was despite a low Qb and minimal UF. Otherwise, he feels well. Review of Systems Review of Systems: All systems reviewed & are unremarkable except as noted in HPI & below Physical Exam Constitutional: well developed and + morbidly obese; no acute distress Eyes: no scleral abnormality and no corneal abnormality ENMT: Mouth: no oral mucosal abnormality and oral mucous membranes not dry Neck: normal visual inspection and trachea midline Respiratory: normal respiratory effort Auscultation: lungs clear to auscultation bilaterally Cardiovascular: Rate/Rhythm: regular rate Heart Sounds: normal S1 and normal S2 Extremities: + AV fistula; no edema Gastrointestinal (Abdomen): Inspection/Auscultation: + significant pannus and + visible herniation Percussion/Palpation: abdomen soft; abdomen nontender Musculoskeletal: Extremities: no cyanosis and no clubbing Skin: normal turgor; no lesions Neurologic: Motor/Sensory: no tremor and no asterixis Psychiatric: Orientation: alert and oriented x 3 Results & Data Vital Signs (Past 12 Hours) Vital Signs Temp Pulse Pulse Resp BP BP Pulse Ox 04/05/19 11:00 68 159/79 H 04/05/19 10:40 59 L 139/68 04/05/19 10:20 58 L 151/69 H 04/05/19 10:00 57 L 139/67 04/05/19 09:40 58 L 137/66 04/05/19 09:24 36.6 C 61 04/05/19 07:37 36.9 C 53 L 18 135/96 96 04/05/19 04:23 36.4 C L 53 L 22 132/62 92 Laboratory Results Laboratory Results - last 24 hr 04/04/19 04/04/19 04/04/19 16:21 20:49 21:11 WBC RBC Hgb Hct MCV MCH MCHC RDW Std Deviation RDW Coeff of Atif Plt Count MPV Immature Gran % (Auto) Neut % (Auto) Lymph % (Auto) [place] % (Auto) Eos % (Auto) Baso % (Auto) Immature Gran # (Auto) Neut # (Auto) Lymph # (Auto) [place] # (Auto) Eos # (Auto) Baso # (Auto) Sodium Potassium Chloride Carbon Dioxide Anion Gap BUN Creatinine Est Cr Clr Drug Dosing Est GFR ( Amer) Est GFR (Non-Af Amer) BUN/Creatinine Ratio Glucose POC Glucose 102 H 161 H 154 H Calcium Total Bilirubin AST ALT Alkaline Phosphatase Total Protein Albumin Globulin Albumin/Globulin Ratio 04/05/19 04/05/19 04/05/19 05:34 05:34 07:31 WBC 7.40 RBC 3.77 L Hgb 10.0 L Hct 33.1 L MCV 87.8 MCH 26.5 MCHC 30.2 L RDW Std Deviation 53.6 H RDW Coeff of Atif 16.9 H Plt Count 207 MPV 9.8 Immature Gran % (Auto) 0.3 Neut % (Auto) 73.7 Lymph % (Auto) 8.9 [place] % (Auto) 13.2 Eos % (Auto) 3.6 Baso % (Auto) 0.3 Immature Gran # (Auto) 0.02 Neut # (Auto) 5.45 Lymph # (Auto) 0.66 L [place] # (Auto) 0.98 H Eos # (Auto) 0.27 Baso # (Auto) 0.02 Sodium 138 Potassium 4.1 Chloride 101 Carbon Dioxide 29 Anion Gap 8.0 BUN 62 H Creatinine 3.49 H Est Cr Clr Drug Dosing 27.8 Est GFR ( Amer) 20.0 Est GFR (Non-Af Amer) 17.2 BUN/Creatinine Ratio 17.9 Glucose 103 H POC Glucose 100 H Calcium 9.2 Total Bilirubin 0.4 AST 9 L ALT 11 L Alkaline Phosphatase 57 Total Protein 7.6 Albumin 3.2 L Globulin 4.4 H Albumin/Globulin Ratio 0.7 L 11/22/19 12:08 WBC RBC Hgb Hct MCV MCH MCHC RDW Std Deviation RDW Coeff of Atif Plt Count MPV Immature Gran % (Auto) Neut % (Auto) Lymph % (Auto) [place] % (Auto) Eos % (Auto) Baso % (Auto) Immature Gran # (Auto) Neut # (Auto) Lymph # (Auto) [place] # (Auto) Eos # (Auto) Baso # (Auto) Sodium Potassium Chloride Carbon Dioxide Anion Gap BUN Creatinine Est Cr Clr Drug Dosing Est GFR ( Amer) Est GFR (Non-Af Amer) BUN/Creatinine Ratio Glucose POC Glucose 138 H Calcium Total Bilirubin AST ALT Alkaline Phosphatase Total Protein Albumin Globulin Albumin/Globulin Ratio PG Care Time/CCT Total # of Minutes Spent Total Time Spent with Patient: Total time spent is greater than 50% in coordination of care (as documented) at patient's floor/unit and/or counseling patient: (1) CHF exacerbation Heart failure type: unspecified Qualified Code(s): I50.9 - Heart failure, unspecified (2) CAD (coronary artery disease) Coronary Disease-Associated Artery/Lesion type: [place] artery [place] vs. transplanted heart: [place] heart Associated angina: without angina Qualified Code(s): I25.10 - Atherosclerotic heart disease of [place] coronary artery without angina pectoris (3) HTN (hypertension) Hypertension type: essential hypertension Qualified Code(s): I10 - Essential (primary) hypertension (4) Anemia Anemia type: unspecified type Qualified Code(s): D64.9 - Anemia, unspecified
[2019-04-05] MEDS: HEPARIN SOD (PORCINE) 1000 UNIT/ML 10 ML VIAL IV SCH (12:36)
[2019-04-05] MEDS: cloNIDine HCL 0.1 MG TAB PO SCH (14:02)
[2019-04-05] MEDS: AMLODIPINE BESYLATE 5 MG TAB PO SCH (14:02)
[2019-04-05] MEDS: HydrALAZINE TAB 50 MG TAB PO SCH (14:02)
[2019-04-05] MEDS: carvediloL 12.5 MG TAB PO SCH (14:02)
--- NOTE | 2019-04-05 14:30 | Pharmacy Report ---
Pharmacy Glycemic Short Note 2 - Date of Service April 05, 2019 - Glycemic Short BSG Results (Last 24 hours): 04/04/19 04/04/19 04/04/19 16:21 20:49 21:11 Glucose POC Glucose 102 H 161 H 154 H 04/05/19 04/05/19 04/05/19 05:34 07:31 12:08 Glucose 103 H POC Glucose 100 H 138 H OUTPATIENT ANTIDIABETIC REGIMEN: * Lantus 50 units SQ BID * Novolog 10 units SQ with meals * A1c = 6.9% 03/30/19 - however interpret w/ caution given CKD4-5 and shortened RBC lifespan ASSESSMENT: 04/05: * BSGs ranged from 102-161 mg/dL previous day, 30 units of basal + 19 units of prandial * Patient had dialysis again today, lunch BSG within goal range, will continue current novolog parameters * Fasting this morning 100 units, will loosen lantus with maximum 20% reduction in dose 04/04 * Fasting BSG this morning 124, patient received 15 units of lantus this morning * Good BSG control yesterday while NPO, reduced requirements, started back on diet * HD today, will continue current orders of lantus 15 units BID (patient previously getting ~ half this while NPO) and current novolog parameters 04/03 * Type 2 diabetic admitted for ADHF * Prior admission at the end of 02/2019 reviewed, it appeared that the patient would require ~60 units in insulin per day to achieve glycemic targets while hospitalized. Current inpatient regimen will likely need scaled back. * Patient is NPO for permcath today. Will hold AM Lantus dose as fasting BSG only 100. Will resume reduced Lantus dose this evening * Will change scheduled prandial insulin dose to carb ratio to account for changing PO intake. * Please note, last evening's accucheck results were likely inaccurate as IV sample sent to the lab for confirmation were drastically different PLAN FOR INPATIENT GLYCEMIC CONTROL: * Basal insulin (dose reduction) * Lantus 12/15 units SQ BID * Bolus insulin * NovoLog per scale ACHS or Q6hrs while NPO * Goal Range: Low 110 mg/dL - High 140 mg/dL * Correction Factor: 20 mg/dL/unit * Nutritional / Prandial insulin per carb ratio of 1 unit per 8 grams CHO consumed PLAN FOR DISCHARGE: * Insulin needs have been greatly reduced while inpatient- recommend close follow-up with outpatient provider to adjust outpatient regimen
--- NOTE | 2019-04-05 14:59 | Discharge Summary ---
Date of Service April 05, 2019 Admission HPI Per Admitting Provider The patient is a 68-year-old male with a past medical history including HFpEF, BPH, CAD, depression, diabetes mellitus, CKD stage IV, hypercholesterolemia, hypertension and sleep apnea, who presents to the emergency department with worsening shortness of breath over the past 24 hours. His most recent hospitalization was from 03/10-03/15/2019. He has a pending appointment with Dr. Madsen from nephrology. He has not had any recent travels or sick exposures. He reports taking his medications as directed. He denies any dietary indiscretions. Admission Exam Per Admitting Provider The patient is awake, alert and oriented 3, normocephalic and atraumatic, sitting upright in bed and in no acute distress. HEENT--PERRL, EOMI, mucous membranes and oropharynx normal. Neck--supple. No JVD. No bruits. Thyroid normal, trachea midline, no adenopathy. Heart--normal S1 and S2. No murmurs, rubs or gallops. Lungs--crackles at the bases bilaterally. No respiratory distress, no accessory muscle use. Abdomen--normal bowel sounds and soft. Nontender. Nondistended. Morbidly obese Extremities--no cyanosis or clubbing. 3+ bilateral pretibial and pedal pitting edema. Dermatologic--normal skin turgor, normal color, no abnormal lymph nodes, no rash. Neurologic--cranial nerves II through XII grossly intact. Rheumatologic--normal range of motion. Psychiatric--normal affect. Principal Diagnosis CHF Exacerbation Discharge Exam General: Alert, oriented. No acute distress Skin: No noted rashes or bruises Psych: Appropriate mood and affect Neuro: No gross deficits HEENT: NC/AT Chest: Nontender to palpation. CV: RRR, Normal s1, s2. murmur appreciated today Resp: Breath sounds clear but decreased bilaterally, no increased effort of breathing. No crackles/rhonchi/rales. Abdomen: Soft, nontender, distended. No guarding. No organomegaly appreciated. Extremities:+ edema in lower extremities bilaterally. Discharge Data Allergies Allergy/AdvReac Type Severity Reaction Status Date / Time ragweed pollen Allergy Mild CONGESTON Verified 04/03/19 12:38 Consultations 03/30/19 00:35 ED Decision to Admit Stat 03/30/19 03:34 Consult Case Management - Discharge Planning Routine Consult Nephrology Routine 04/02/19 09:07 Consult Vascular Surgery Routine 04/02/19 09:11 Consult Case Management - Discharge Planning Routine Procedures Performed Operation Date: 04/03/19 13:00 Actual Procedures p Perm Catheter Placement Right Jugular Vein, Ultrasound Localization of Right Jugular Vein, Fluoroscopy for Positioning, Moderate Sedation 1342- 1408(Right) - Kirby Rios MD Ordered Studies 03/29/19 21:20 CT abd pelvis wo con Urgent US abdomen limited Urgent 04/03/19 08:30 US guide vascular access Routine 04/03/19 12:00 EV cvc insrt tunnel wo prt/dental laboratory manager Routine Hospital Course (1) (HFpEF) heart failure with preserved ejection fraction: 68-year-old male with a past medical history including HFpEF, BPH, CAD, depression, diabetes mellitus, CKD stage V, hypercholesterolemia, hypertension and sleep apnea, who presented to the emergency department with worsening shortness of breath likely secondary to volume overload due the combination of CHF, CKD and obesity hypoventilation syndrome. Admitted on Apr 01 and discharged on Apr 05, 2019. 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 Unable to diurese with medications. IJ dialysis catheter placed 04/03, had multiple rounds of hemodialysis to remove volume before discharge. Outpt dialysis scheduled with [facility]. Continue home Lasix 80 mg PO BID daily for neg fluid balance. Clinical and subjective improvement on discharge. Continue carvedilol 12.5 mg BID, Clonidine 0.1 mg BID, Amlodipine 10 mg, Hydralazine 100 mg TID, Aspirin 81 mg, Clopidogrel 75 mg Per nursing evaluation, patient was ambulatory, capable of self-care. Chronic respiratory failure with hypoxia continue home O2 baseline 2L RADHA Has had long standing h/o noncompliance. Used CPAP machine while hospitalized Counseled on need for use every night after discharge. Encouraged compliance. CKD, stage 4 IJ dialysis catheter placed 04/03 for fluid overload, had multiple rounds of hemodialysis before discharge. Followup scheduled with [facility] for continued dialysis after discharge. Pt with AVF placed at [facility] that is not ready for use yet. Plans for revision procedure with vascular surgery in May 2019. States it may have been moved up. Continue to monitor BMP after discharge. DM2 HgbA1c of 6.9 on admission. Accu-Cheks before meals and at bedtime with NovoLog coverage per scale while hospitalized. Continue home insulin regimen with Lantus 50U BID and Novolog 10U PCP followup. Anemia 03/30 pt received 20081 units of Epogen Cont Venofer 200 mg x 5 days, started 03/31 Daily CBC Constipation -Was treated with bowel regimen of milk of magnesia and miralax. Total Time Total Time Spent Total Time Spent (In Minutes): see attending attestation Discharge Plan Discharge Items Patient Disposition: Home - Self-Care Reason For Visit: CHF Discharge Diagnosis: CHF Exacerbation Activity: Per Instructions section Non-emergency contact: Primary Care Provider Call non-emergency contact if: your symptoms worsen Follow-up/Referrals: PCP,NO [Primary Care Provider] - Diet: Heart Healthy and Low Sodium (2gm) Addtl Attending Provider Instructions: Mr. Solorio you were admitted and treated because you had a lot of fluid secondary to your diagnosis of congestive heart failure. The fluid was no longer responding to diuretics, so you required dialysis to help take off some of the fluid. We put in a catheter to help with that while you were hospitalized and you have undergone a few rounds of dialysis already. Upon discharge you have been scheduled to receive further dialysis sessions with [facility] starting on Apr 08. You have also been set up with home Health and physical and occupational therapy services. Please continue to keep your appointments for dialysis and with home health services. Please have close followup with your primary care physician upon discharge, within the next week. Please also followup with your dean of instruction upon discharge. It was a pleasure taking care of you during your stay here! Be well. Pending Studies at Discharge: No Stand-Alone Forms: My [facility] [employer], Smoking Cessation Medications and DC Order Prescriptions: Continued furosemide [Lasix] 40 mg Tablet 80 mg PO BID RF: 0 atorvastatin 40 mg Tablet 20 mg PO PM RF: 0 amlodipine 10 mg Tablet 10 mg PO QAM RF: 0 hydralazine 100 mg Tablet 100 mg PO TID RF: 0 Novolog PenFill U-100 Insulin 100 unit/mL Cartridge 10 unit SUBCUT AC RF: 0 clonidine HCl 0.1 mg Tablet 0.1 mg PO BID RF: 0 tamsulosin 0.4 mg Capsule 0.4 mg PO QAM RF: 0 albuterol sulfate 90 mcg/actuation Hfa Aerosol Inhaler 2 puff INHALATION Q6H PRN (Reason: Shortness Of Breath) RF: 0 sertraline 50 mg Tablet 25 mg PO QAM RF: 0 loratadine 10 mg Tablet 10 mg PO DAILY PRN (Reason: Allergy Symptoms) RF: 0 carvedilol [Coreg] 12.5 mg tablet 12.5 mg PO BID RF: 0 clopidogrel [Plavix] 75 mg Tablet 75 mg PO DAILY RF: 0 aspirin [Aspir-81] 81 mg Tablet,Delayed Release (Dr/Ec) 81 mg PO DAILY RF: 0 Lantus Solostar U-100 Insulin 100 unit/mL (3 mL) insulin pen 50 unit SUBCUT BID RF: 0 Spiriva with HandiHaler 18 mcg Capsule, W/Inhalation Device 1 puff inhalation QAM 30 Days Qty: 30 RF: 0 Discharge Orders: Discharge Order (Routine); Ordered 04/05/19 Ordered By: Ina Umaña Admission Data Admit Date/Time: 03/30/19 01:53 Attending Provider: Magali Shields Admit Provider: Wisam Hercules Primary Care Provider: PCP,NO Other Providers: [facility] ; Alli Manzo ; Wisam Hercules ; Tobias Richard ; Kirby Rios Other Interventions: Discharge Summary Assessment (RN) Last Done: 04/05/19 14:47 DC Date/Time DO NOT enter until pt leaves facility: 04/05/19 15:00 Supervising Physician Co-Signing Physician Notes Resident Physician Supervision Note: I independently interviewed and examined the patient and verified the roman history and physical, reviewed labs and image studies, discussed the case with the resident Dr. Umaña and agree with the findings and care plan.
--- NOTE | 2019-04-10 15:29 | Coding Query ---
CODING QUERY To promote full compliance with coding requirements relating to patient care, provider participation is requested in all cases of medical insurance coder uncertainty. Please assist us with the question(s) below: Coding Question(s): Patient admitted with Chronic Kidney Disease. Hemodialysis catheter inserted with some Dialysis sessions completed. Record documents CKD Stages 4- 6 . Please document the Chronic Kidney Disease that was treated. Thank you ! Morris Schulte [facility] Physician's Response: CKD stage 5 Principal Diagnosis: "that condition established after study, to be chiefly responsible for occasioning the admission of the patient to the hospital for care." Co-Existing Principal Diagnosis: "when two or more diagnoses equally meet the criteria for principal diagnosis as determined by the circumstances of admission, diagnostic work up, and/or therapy provided, and the Alphabetic Index, Tabular List, or another coding guideline does not provide sequencing direction, any one of the diagnoses may be sequenced first." "When the physician has documented what appears to be a current diagnosis in the body of the record, but has not included the diagnosis in the final diagnostic statement, the physician should be asked whether the diagnosis should be added." (Source Coding Clinic 2 QTR90. p3-4) SELINA
--- NOTE | 2019-04-10 15:34 | Coding Query ---
CODING QUERY To promote full compliance with coding requirements relating to patient care, provider participation is requested in all cases of manager clinical research uncertainty. Please assist us with the question(s) below: Coding Question(s): Patient admitted with CHF and CKD. Patient also was treated for respiratory failure. Please check below the respiratory failure that was treated . Thank you . Morris Schulte [facility] Physician's Response(s): Acute Respiratory Failure ___x___ Acute on Chronic Respiratory Failure Chronic Respiratory Failure Other/ Please document: Principal Diagnosis: "that condition established after study, to be chiefly responsible for occasioning the admission of the patient to the hospital for care." Co-Existing Principal Diagnosis: "when two or more diagnoses equally meet the criteria for principal diagnosis as determined by the circumstances of admission, diagnostic work up, and/or therapy provided, and the Alphabetic Index, Tabular List, or another coding guideline does not provide sequencing direction, any one of the diagnoses may be sequenced first." "When the physician has documented what appears to be a current diagnosis in the body of the record, but has not included the diagnosis in the final diagnostic statement, the physician should be asked whether the diagnosis should be added." (Source Coding Clinic 2 QTR90. p3-4) SELINA
== END 2019-04-05 15:00 | disposition home health service (06) | DRG 682 ==
LOC: ED 20:42 → SUATTDRO 03-30 01:53 → 2E 03-30 01:53

== ENCOUNTER 2019-04-28 23:45 | Inpatient (IN) ==
[2019-04-28] MEDS ORDERED: METOPROLOL TARTRATE 1 MG/ML VIAL IV STA (23:58)
[2019-04-29 00:19] LABS: Basophils # (auto) 0.04 K/uL (0-0.2); Basophils % (auto) 0.4 %; Eosinophils # (auto) 0.18 K/uL (0-0.5); Eosinophils % (auto) 1.6 %; Hematocrit (blood only) 37.7 % (42-52); Immature Granulocytes # (auto) 0.03 K/uL (0.00-0.02); Immature Granulocytes % (auto) 0.3 %; Lymphocytes # (auto) 1.14 K/uL (1.2-3.4); Lymphocytes % (auto) 10.2 %; Mean Corpuscular Hemoglobin 28.2 pg (25-34); Mean Corpuscular Hgb Conc 31.8 g/dL (32-36); Mean Corpuscular Volume 88.7 fL (80-100); Mean Platelet Volume 9.8 fL (7.4-10.4); Monocytes # (auto) 1.24 K/uL (0.11-0.59); Monocytes % (auto) 11.1 %; Neutrophils % (auto) 76.4 %; Platelet Count 197 K/uL (130-400); RDW Coefficient of Variation 16.7 % (11.5-14.5); RDW Standard Deviation 54.5 fL (36.4-46.3); Red Blood Count 4.25 M/uL (4.7-6.1); White Blood Count 11.13 K/uL (4.8-10.8)
[2019-04-29] MEDS ORDERED: METOPROLOL TARTRATE 1 MG/ML VIAL IV STA ×2 (00:21→01:40)
[2019-04-29 00:34] LABS: INR 1.1 (0.9-1.1); Partial Thromboplastin Ratio 1.1; Partial Thromboplastin Time 29.3 Seconds (21.0-31.0); Prothrombin Time 10.9 Seconds (9.0-12.0)
[2019-04-29 00:40] LABS: Alanine Aminotransferase 14 U/L (12-78); Albumin Level 3.2 gm/dl (3.4-5.0); Aspartate Aminotransferase 10 U/L (15-37); BUN Creatinine Ratio 12.7 (10-20); Bilirubin Direct < 0.1 mg/dl (0-0.2); Blood Urea Nitrogen 50 mg/dl (7-18); Calcium 9.1 mg/dl (8.5-10.1); Carbon Dioxide 30 mmol/L (21-32); Chloride 102 mmol/L (98-107); Creatinine Clr Calc Pharmacy 24.2 ml/min; Est GFR (African American) 17.2; Est GFR (Non-African American) 14.9; Glucose 93 mg/dl (70-99); Potassium 3.6 mmol/L (3.5-5.1); Sodium 138 mmol/L (136-145)
[2019-04-29 00:51] LABS: Alkaline Phosphatase 56 U/L (45-117); Bilirubin,Total 0.4 mg/dl (0.2-1); Total Protein 7.8 gm/dl (6.4-8.2); Troponin I < 0.015 ng/ml (0-0.045)
[2019-04-29] MEDS ORDERED: ENOXAPARIN INJ 120 MG/0.8 ML SYR SQ STA (02:30)
--- NOTE | 2019-04-29 02:43 | Emergency Department Note ---
Entered by Telma Gandhi acting as a scribe for Kwesi Sears MD ED Provider Note Name: LYNN BENZ Age: 68 Arrives Via: Ambulance Informant: Patient CC: Leg pain. HPI: 68M arrives for evaluation of left lower extremity pain. The patient reports that he has been experiencing pain on his left foot that started several hours ago. He notes that his pain radiated to his left knee. He denies any redness or swelling of his left lower extremity. He denies any fever, chills, nausea, vomiting, or chest pain. He mentions that he has been out of his medication for the past 2 weeks. He notes that he has a headache. He mentions that his heart rate has been increased for the past day. He denies any alcohol use tonight. He notes that he takes Aspirin and Plavix daily. He mentions that he has a history of CHF. ROS: See above HPI for pertinent positives & negatives. A total of 10 systems reviewed and were otherwise negative. Past Medical History:See Below Past Surgical History:See Below Family History:See Below Social History:See Below Home Medications:See Below Allergies:See Below Vitals:BP 123/72, P 130, R 16, T 37, O2 97% RA Physical Exam: GENERAL: Patient is chronically unwell appearing and in minimal distress. Dialys is port in right upper chest. EYES: No scleral icterus, unremarkable pupils. ENT: Mucous membranes moist, no nasal congestion. NECK: No masses appreciated, nomeningismus, trachea is midline. RESPIRATORY: No dyspnea. Crackles in bases bilaterally. No wheeze, no rhonchi. CARDIOVASCULAR: Tachycardic.No murmurs, rubs, gallops appreciated. GASTROINTESTINAL: Abdomen soft, non-tender, no peritonitis.Bowel sounds positive.No masses appreciated. BACK: No midline tenderness, no CVA tenderness EXTREMITIES: Normal motion all extremities, no cyanosis, no edema. NEUROLOGIC: Alert and oriented, no acute motor or sensory deficits, no focal weakness, cranial nerves grossly intact. SKIN: No rash, no jaundice, no diaphoresis. ED Course: Prior Medical Record, Triage/Nursing Notes, Medications, Allergies reviewed by Me Vital Signs: reviewed and remarkable for tachy Labs:Reviewed and remarkable for stable renal failure Interventions: saline lock, lopressor 5mg IV x 3 Imaging:X ray results are stated below per my interpretation: Chest: 1 view: Moderate congestive findings without pulm edema, modestly improved from 04/01/19. Questionable small left pleural effusion EKG:Per My Interpretation: Indication Palpitations: Aflutter 2:1 block at 130 bpm qtc 423, no ischemia. Flutter is new from EKG 04/02/19. Consults:Dr Hercules will bring in for further management Reassessments/Times: 2348: The patient was evaluated in room B11B, and a complete history and physical examination were performed. Blood pressure:Normal.No Referral necessary Disposition:Hospitalization Differentials:Differential diagnosis: Etiologies such as metabolic, infection, hypo/hyperglycemia, electrolyte abnormalities, cardiac sources, intracerebral event, toxicologic, neurologic, amongst other pathologies. Medical Decision Makin yr old chronically unwell male with multiple admissions over last few weeks and history of ESRD (dialysis started 2 weeks ago), CHF, DMII, Sleep Abnea, HTN, Depression. Admits running out of medications 2 weeks ago. Today with left foot pain for last few days radiating to lateral mid left quezada as well as palpitations for last 36 hours. No acute findings on leg exam with good movement, no rashes, good pulses/cap refill, no swelling, no calf TTP and neuro intact. Xray and US of leg unremarkable. No evidence DVT, arterial occlusion, cellulitis etc. Unclear etiology of leg pain. Palpitations starting yesterday and he notes having been told "irregular" heart many years ago but nothing since and is on no blood thinners. Did recently stop his coreg and clonidine. EKG with new Aflutter RVR. Previous EKGs with NSR 1st av block. Given multiple rounds IV lopressor to get HR to ~ 100. BP stable. Patient without other symptoms. No shortness of breath, chest pain to lean towards PE. No evidence ACS at this time. With complex history discussed with hospitalist and will defer anticoagulation to them. He clearly will need to come in for further management. Patient comfortable with plan. Impression: Atrial Flutter with rapid ventricular response Acute Pain of Left Lower Extremity Critical Care Time: I have personally spent greater than 35 minutes of critical care time in the direct management of this patient. Aflutter RVR requiring multiple rounds lopressor. This was a life/limb threatening event. This includes time spent evaluating patient, direct bedside care, chart review, placing orders, interpretation of diagnostic studies, discussion with consultants, patient, and family members, as well as other required patient management activities. This 35 minutes is in excess of all separately billable procedures. The scribe's documentation has been prepared under my direction and personally reviewed by me in its entirety. I confirm that the note above accurately reflects all work, treatment, procedures, and medical decision making performed by me. Kwesi Sears MD Impression & Plan Atrial flutter with rapid ventricular response, Acute pain of left lower extremity Past Med/Surg History Medical History Anemia CAD (coronary artery disease) s/p stent 2018 CKD (chronic kidney disease) Stage 4 Diabetes Dyslipidemia ESRD (end stage renal disease) HTN (hypertension) (Chronic) Sleep apnea (Chronic) does not use CPAP Surgical History AV fistula Family History Other Hypertension Social History Preferred Language: [place] Communication Ability: Effective Civil Rights Representative Required: No Beliefs That Will Affect Care: None marital status: Current Living Situation: Alone Feels Safe at Home: Yes Smoking Status: Never smoker Tobacco Type: cigars ; Cigarettes Per Day: one cigar every so often, less than one a month usually ; Second Hand Exposure: No ; Hx Alcohol Use: Yes Alcohol type: beer Hx Substance Use: No Results & Data Vital Signs Vital Signs - 24 hr 04/28/19 23:51 04/29/19 00:11 04/29/19 00:14 Temperature 37 C Temperature Source Oral Pulse Rate 135 H 135 H Pulse Rate [Apical] 122 H Pulse Rhythm Irregular Pulse Rhythm [Apical] Irregular Respiratory Rate 16 16 Respiratory Effort / Characteristics Non-Labored Spontaneous Non-Labored Spontaneous Respiratory Depth Normal Normal Respiratory Pattern Regular Regular Blood Pressure 131/79 141/104 H Blood Pressure [Left Arm] 109/73 Blood Pressure Mean 96 Blood Pressure Mean [Left Arm] 85 Pulse Oximetry 94 91 Oxygen Delivery Method Room Air Room Air Sepsis Recent Fever Within 48 Hours No Sepsis New/Unexplained Change in Mental Status No Sepsis Action Taken by Nursing No Action Required 04/29/19 00:31 04/29/19 01:05 04/29/19 01:46 Temperature Temperature Source Pulse Rate 106 H 120 H Pulse Rate [Apical] 102 H Pulse Rhythm Pulse Rhythm [Apical] Irregular Respiratory Rate 16 Respiratory Effort / Characteristics Non-Labored Spontaneous Respiratory Depth Normal Respiratory Pattern Regular Blood Pressure 113/86 126/88 Blood Pressure [Left Arm] 113/86 Blood Pressure Mean Blood Pressure Mean [Left Arm] 95 Pulse Oximetry 91 Oxygen Delivery Method Room Air Sepsis Recent Fever Within 48 Hours Sepsis New/Unexplained Change in Mental Status Sepsis Action Taken by Nursing 04/29/19 02:00 Temperature Temperature Source Pulse Rate Pulse Rate [Apical] 104 H Pulse Rhythm Pulse Rhythm [Apical] Regular Respiratory Rate 16 Respiratory Effort / Characteristics Non-Labored Spontaneous Respiratory Depth Normal Respiratory Pattern Regular Blood Pressure Blood Pressure [Left Arm] 123/72 Blood Pressure Mean Blood Pressure Mean [Left Arm] 89 Pulse Oximetry 89 L Oxygen Delivery Method Room Air Sepsis Recent Fever Within 48 Hours Sepsis New/Unexplained Change in Mental Status Sepsis Action Taken by Long Term Medications Current Medication List: was personally reviewed by me Laboratory Data Attestation: I reviewed the patient's lab results. Result diagrams: 04/28/19 23:58 04/28/19 23:58 Lab Results 04/28/19 04/28/19 04/28/19 Range/Units 23:58 23:58 23:59 WBC 11.13 H (4.8-10.8) K/uL RBC 4.25 L (4.7-6.1) M/uL Hgb 12.0 L (14.0-18.0) g/dL Hct 37.7 L (42-52) % MCV 88.7 (80-100) fL MCH 28.2 (25-34) pg MCHC 31.8 L (32-36) g/dL RDW Std Deviation 54.5 H (36.4-46.3) fL RDW Coeff of Atif 16.7 H (11.5-14.5) % Plt Count 197 (130-400) K/uL MPV 9.8 (7.4-10.4) fL Immature Gran % (Auto) 0.3 % Neut % (Auto) 76.4 % Lymph % (Auto) 10.2 % [place] % (Auto) 11.1 % Eos % (Auto) 1.6 % Baso % (Auto) 0.4 % Immature Gran # (Auto) 0.03 H (0.00-0.02) K/uL Neut # (Auto) 8.50 H (1.4-6.5) K/uL Lymph # (Auto) 1.14 L (1.2-3.4) K/uL [place] # (Auto) 1.24 H (0.11-0.59) K/uL Eos # (Auto) 0.18 (0-0.5) K/uL Baso # (Auto) 0.04 (0-0.2) K/uL PT 10.9 (9.0-12.0) Seconds INR 1.1 (0.9-1.1) APTT 29.3 (21.0-31.0) Seconds PTT Ratio 1.1 Sodium 138 (136-145) mmol/L Potassium 3.6 (3.5-5.1) mmol/L Chloride 102 (98-107) mmol/L Carbon Dioxide 30 (21-32) mmol/L Anion Gap 7.0 (3-11) BUN 50 H (7-18) mg/dl Creatinine 3.94 H (0.6-1.4) mg/dl Est Cr Clr Drug Dosing 24.2 ml/min Est GFR ( Amer) 17.2 Est GFR (Non-Af Amer) 14.9 BUN/Creatinine Ratio 12.7 (10-20) Glucose 93 (70-99) mg/dl Calcium 9.1 (8.5-10.1) mg/dl Total Bilirubin 0.4 (0.2-1) mg/dl Direct Bilirubin < 0.1 (0-0.2) mg/dl AST 10 L (15-37) U/L ALT 14 (12-78) U/L Alkaline Phosphatase 56 (45-117) U/L Troponin I < 0.015 (0-0.045) ng/ml Total Protein 7.8 (6.4-8.2) gm/dl Albumin 3.2 L (3.4-5.0) gm/dl TSH 1.590 (0.300-4.500) uIu/ml Administered Medications Discontinued Medications Metoprolol Tartrate (Lopressor) 5 mg IV NOW STA Stop: 04/28/19 23:59 Last Admin: 04/29/19 00:11 Dose: 5 mg Documented by: [id number] Metoprolol Tartrate (Lopressor) 5 mg IV NOW STA Stop: 04/29/19 00:22 Last Admin: 04/29/19 00:31 Dose: 5 mg Documented by: [id number] Metoprolol Tartrate (Lopressor) 5 mg IV NOW STA Stop: 04/29/19 01:41 Last Admin: 04/29/19 01:46 Dose: 5 mg Documented by: [id number] Discharge Plan Visit Data Chief Complaint: Leg Injury/Pain Stated Complaint: LEG PAIN ED Provider: Kwesi Sears Discharge Problem: Atrial flutter with rapid ventricular response, Acute pain of left lower extremity Forms Stand Alone Forms: My [facility] Prescriptions Prescriptions: No Action furosemide [Lasix] 40 mg Tablet 80 mg PO BID RF: 0 atorvastatin 40 mg Tablet 20 mg PO PM RF: 0 amlodipine 10 mg Tablet 10 mg PO QAM RF: 0 hydralazine 100 mg Tablet 100 mg PO TID RF: 0 Novolog PenFill U-100 Insulin 100 unit/mL Cartridge 10 unit SUBCUT AC RF: 0 clonidine HCl 0.1 mg Tablet 0.1 mg PO BID RF: 0 tamsulosin 0.4 mg Capsule 0.4 mg PO QAM RF: 0 albuterol sulfate 90 mcg/actuation Hfa Aerosol Inhaler 2 puff INHALATION Q6H PRN (Reason: Shortness Of Breath) RF: 0 sertraline 50 mg Tablet 25 mg PO QAM RF: 0 loratadine 10 mg Tablet 10 mg PO DAILY PRN (Reason: Allergy Symptoms) RF: 0 carvedilol [Coreg] 12.5 mg tablet 12.5 mg PO BID RF: 0 clopidogrel [Plavix] 75 mg Tablet 75 mg PO DAILY RF: 0 aspirin [Aspir-81] 81 mg Tablet,Delayed Release (Dr/Ec) 81 mg PO DAILY RF: 0 Lantus Solostar U-100 Insulin 100 unit/mL (3 mL) insulin pen 50 unit SUBCUT BID RF: 0 The scribe's documentation has been prepared under my direction and personally reviewed by me in its entirety. I confirm that the note above accurately reflects all work, treatment, procedures, and medical decision making performed by me.
[2019-04-29] MEDS ORDERED: GLUCOSE 10 TABS/TUBE PO PRN (03:35)
[2019-04-29] MEDS ORDERED: ALBUTEROL HFA 8 GM INHALER INH PRN (03:35)
[2019-04-29] MEDS ORDERED: ACETAMINOPHEN 325 MG TAB PO PRN (03:35)
[2019-04-29] MEDS ORDERED: cloNIDine HCL 0.1 MG TAB PO ONE (03:35)
[2019-04-29] MEDS ORDERED: DEXTROSE 50% 50 ML SYRINGE IV PRN (03:35)
[2019-04-29] MEDS ORDERED: POLYETHYLENE (MIRALAX) 17 GM PACK PO PRN (03:35)
[2019-04-29] MEDS ORDERED: ONDANSETRON INJ 2 MG/ML 2 ML VIAL IV PRN (03:35)
[2019-04-29] MEDS ORDERED: GLUCAGON FOR INJ 1 MG VIAL SQ PRN (03:35)
[2019-04-29] MEDS ORDERED: MAGNESIUM HYDROXIDE SUSP 30 ML UDC PO PRN (03:35)
[2019-04-29] MEDS ORDERED: carvediloL 12.5 MG TAB PO ONE (03:35)
[2019-04-29] MEDS ORDERED: ALUMINUM/MAGNESIUM SUSP 30 ML UDC PO PRN (03:35)
[2019-04-29] MEDS ORDERED: GLUCOSE 40% GEL 15 GM TUBE PO PRN (03:35)
--- NOTE | 2019-04-29 03:38 | History & Physical Report ---
Date of Service April 29, 2019 Assessment & Plan (1) Atrial flutter with rapid ventricular response: Atrial flutter with RVR/HFpEF/CAD/hypertension- The patient will be admitted to telemetry for serial cardiac enzymes, serial EKG's, cardiac rhythm monitoring and a 2-D echocardiogram with Dopplers. Patient is having rebound hypertension and tachycardia due to abrupt cessation of clonidine and carvedilol 2 weeks ago. He is received Lopressor 5 IV x3 per the ED. Resume clonidine 0.1 mg p.o. twice daily and carvedilol 12.5 mg p.o. twice daily, with first dose this evening. Hold hydralazine 100 mg p.o. 3 times daily and amlodipine 10 mg p.o. every morning. Continue aspirin 81 mg daily We will give a single dose of Lovenox 1 mg/kg subcu tonight. Consult cardiology Present on Admission?: Yes (2) (HFpEF) heart failure with preserved ejection fraction: See above Present on Admission?: Yes (3) CAD (coronary artery disease): See above Present on Admission?: Yes (4) ESRD (end stage renal disease): Consult nephrology Dr. Richard. Present on Admission?: Yes (5) Depression: Continue sertraline. Present on Admission?: Yes (6) Diabetes mellitus type 2 in obese: For now, reduce Lantus from 50 to 25 units subcu twice daily. Placed on Accu-Cheks before meals and at bedtime with NovoLog coverage for scale Present on Admission?: Yes (7) Hypercholesterolemia: Continue atorvastatin 20 mg every evening Present on Admission?: Yes History of Present Illness Chief Complaint: The patient presents to the emergency department with complaint of leg pain and persistently increased heart rate into the 120s to 130s range. Primary Care Provider: Shiv Gallardo MD The patient is a 68-year-old male with a past medical history including diabetes mellitus, COPD, hypertension, hyperlipidemia, depression, BPH, CAD, CHF, and ESRD on HD, who presents to the emergency department With complaint of leg and knee pain, and increased heart rate. Patient reports he stopped taking clonidine about 2 weeks ago when the pill bottle fell behind a piece of furniture, and he stopped taking the carvedilol about 2 weeks ago also because his prescription ran out off after being increased at the [facility] in [place]. Most recent hospitalizations include the followin/25-01/09/2019; 03/06- 03/09/2019; 03/10-03/14/2019; and 03/30-04/05/2019. During his last admission, he had placement of a right-sided permacath, with first HD treatment on 04/03, with second and third treatments complicated by cramps in his legs. Allergies Allergy/AdvReac Type Severity Reaction Status Date / Time ragweed pollen Allergy Mild [place]GE[place] Verified 04/03/19 12:38 Home Medications Home Medications Medication Instructions Recorded Confirmed Type Novolog PenFill U-100 Insulin 10 unit SUBCUT AC 01/06/19 03/29/19 History albuterol sulfate 2 puff INHALATION Q6H PRN 01/06/19 03/29/19 History amlodipine 10 mg PO QAM 01/06/19 03/29/19 History atorvastatin 20 mg PO PM 01/06/19 03/29/19 History clonidine HCl 0.1 mg PO BID 01/06/19 03/29/19 History furosemide [Lasix] 80 mg PO BID 01/06/19 03/29/19 History hydralazine 100 mg PO TID 01/06/19 03/29/19 History loratadine 10 mg PO DAILY PRN 01/06/19 03/29/19 History sertraline 25 mg PO QAM 01/06/19 03/29/19 History tamsulosin 0.4 mg PO QAM 01/06/19 03/29/19 History Lantus Solostar U-100 Insulin 50 unit SUBCUT BID 03/06/19 03/29/19 History aspirin [Aspir-81] 81 mg PO DAILY 03/06/19 03/29/19 History carvedilol [Coreg] 12.5 mg PO BID 03/06/19 03/29/19 History clopidogrel [Plavix] 75 mg PO DAILY 03/06/19 03/29/19 History Past Med/Surg History Medical History Anemia CAD (coronary artery disease) s/p stent 2018 CKD (chronic kidney disease) Stage 4 Diabetes Dyslipidemia ESRD (end stage renal disease) HTN (hypertension) (Chronic) Sleep apnea (Chronic) does not use CPAP Surgical History AV fistula Family History Other Hypertension Social History Preferred Language: Mohawk Communication Ability: Effective Supervisor [employer] Required: No Beliefs That Will Affect Care: None marital status: Current Living Situation: Alone Feels Safe at Home: Yes Safety Concerns: Feels Safe At This Time Smoking Status: Current every day smoker Tobacco Type: cigars ; Cigarettes Per Day: one cigar every so often, less than one a month usually ; Second Hand Exposure: No ; Hx Alcohol Use: Yes Alcohol type: beer Hx Substance Use: No Review of Systems Review of Systems: The patient denies palpitations, shortness of breath, dyspnea on exertion, sore throat, fevers, chills, sweats, nausea, vomiting, diarrhea , constipation, abdominal pain, pelvic pain, blood in urine or stool, lightheadedness, dizziness, headache, memory loss, loss of consciousness, rash, abnormal bruising or bleeding, imbalance, focal or generalized weakness, numbness or tingling in arms, generalized arthralgias or myalgias, back or neck pain, or night sweats. The review of systems is otherwise negative other than for that already noted above, and at least 10 systems have been reviewed. Physical Exam Physical Exam: The patient is awake, alert and oriented 3, appears disheveled, normocephalic and atraumatic, lying in bed and in no acute distress. HEENT--PERRL, EOMI, mucous membranes and oropharynx dry. Neck--supple. No JVD. No bruits. Thyroid normal, trachea midline, no adenopathy. Heart--normal S1 and S2. No murmurs, rubs or gallops. Lungs--clear bilaterally, no respiratory distress, no accessory muscle use. Abdomen--normal bowel sounds and soft. Nontender. Nondistended. Extremities--no cyanosis or clubbing. Trace bilateral pretibial pitting edema. Dermatologic--normal skin turgor, normal color, no abnormal lymph nodes, no rash. Neurologic--cranial nerves II through XII grossly intact. Rheumatologic--normal range of motion. Psychiatric--normal affect. Results & Data Vital Signs (Past 12 Hours) Vital Signs Temp Pulse Pulse Resp BP BP Pulse Ox 04/29/19 02:45 130 H 14 89 L 04/29/19 02:00 104 H 16 123/72 89 L 04/29/19 01:46 120 H 126/88 04/29/19 01:05 102 H 16 113/86 91 04/29/19 00:31 106 H 113/86 04/29/19 00:14 122 H 16 109/73 91 04/29/19 00:11 135 H 141/104 H 04/28/19 23:51 98.6 F 135 H 16 131/79 94 Laboratory Results Laboratory Results WBC 11.13 K/uL (4.8-10.8) H 04/28/19 23:58 RBC 4.25 M/uL (4.7-6.1) L 04/28/19 23:58 Hgb 12.0 g/dL (14.0-18.0) L 04/28/19 23:58 Hct 37.7 % (42-52) L 04/28/19 23:58 MCV 88.7 fL (80-100) 04/28/19 23:58 MCH 28.2 pg (25-34) 04/28/19 23:58 MCHC 31.8 g/dL (32-36) L 04/28/19 23:58 RDW Std Deviation 54.5 fL (36.4-46.3) H 04/28/19 23:58 RDW Coeff of Atif 16.7 % (11.5-14.5) H 04/28/19 23:58 Plt Count 197 K/uL (130-400) 04/28/19 23:58 MPV 9.8 fL (7.4-10.4) 04/28/19 23:58 Immature Gran % (Auto) 0.3 % 04/28/19 23:58 Neut % (Auto) 76.4 % 04/28/19 23:58 Lymph % (Auto) 10.2 % 04/28/19 23:58 Dixon % (Auto) 11.1 % 04/28/19 23:58 Eos % (Auto) 1.6 % 04/28/19 23:58 Baso % (Auto) 0.4 % 04/28/19 23:58 Immature Gran # (Auto) 0.03 K/uL (0.00-0.02) H 04/28/19 23:58 Neut # (Auto) 8.50 K/uL (1.4-6.5) H 04/28/19 23:58 Lymph # (Auto) 1.14 K/uL (1.2-3.4) L 04/28/19 23:58 [place] # (Auto) 1.24 K/uL (0.11-0.59) H 04/28/19 23:58 Eos # (Auto) 0.18 K/uL (0-0.5) 04/28/19 23:58 Baso # (Auto) 0.04 K/uL (0-0.2) 04/28/19 23:58 PT 10.9 Seconds (9.0-12.0) 04/28/19 23:59 INR 1.1 (0.9-1.1) 04/28/19 23:59 APTT 29.3 Seconds (21.0-31.0) 04/28/19 23:59 PTT Ratio 1.1 04/28/19 23:59 Sodium 138 mmol/L (136-145) 04/28/19 23:58 Potassium 3.6 mmol/L (3.5-5.1) 04/28/19 23:58 Chloride 102 mmol/L (98-107) 04/28/19 23:58 Carbon Dioxide 30 mmol/L (21-32) 04/28/19 23:58 Anion Gap 7.0 (3-11) 04/28/19 23:58 BUN 50 mg/dl (7-18) H 04/28/19 23:58 Creatinine 3.94 mg/dl (0.6-1.4) H 04/28/19 23:58 Est Cr Clr Drug Dosing 24.2 ml/min 04/28/19 23:58 Est GFR ( Amer) 17.2 04/28/19 23:58 Est GFR (Non-Af Amer) 14.9 04/28/19 23:58 BUN/Creatinine Ratio 12.7 (10-20) 04/28/19 23:58 Glucose 93 mg/dl (70-99) 04/28/19 23:58 Calcium 9.1 mg/dl (8.5-10.1) 04/28/19 23:58 Total Bilirubin 0.4 mg/dl (0.2-1) 04/28/19 23:58 Direct Bilirubin < 0.1 mg/dl (0-0.2) 04/28/19 23:58 AST 10 U/L (15-37) L 04/28/19 23:58 ALT 14 U/L (12-78) 04/28/19 23:58 Alkaline Phosphatase 56 U/L (45-117) 04/28/19 23:58 Troponin I < 0.015 ng/ml (0-0.045) 04/28/19 23:58 Total Protein 7.8 gm/dl (6.4-8.2) 04/28/19 23:58 Albumin 3.2 gm/dl (3.4-5.0) L 04/28/19 23:58 TSH 1.590 uIu/ml (0.300-4.500) 04/28/19 23:58 Code Status & VTE Plan Code Status Full code VTE Prophylaxis Plan VTE Prophylaxis will be ordered: Yes PG Care Time/CCT Total # of Minutes Spent Total Time Spent with Patient: Total time spent is greater than 50% in coordination of care (as documented) at patient's floor/unit and/or counseling patient: (1) Depression Depression Type: major depressive disorder Major depression recurrence: recurrent Active/Remission status: remission status unspecified Qualified Code(s): F33.9 - Major depressive disorder, recurrent, unspecified (2) CAD (coronary artery disease) Coronary Disease-Associated Artery/Lesion type: [place] artery [place] vs. transplanted heart: [place] heart Associated angina: without angina Qualified Code(s): I25.10 - Atherosclerotic heart disease of [place] coronary artery without angina pectoris
--- NOTE | 2019-04-29 06:28 | Ultrasound Report ---
US venous doppler LE LT HISTORY: 68 years-old Male left lower leg discomfort acute pain and swelling of the left lower extre mity COMPARISON: Left tibia and fibula radiographs of same day TECHNIQUE: Multiple real-time sonographic images of the left lower extremity deep venous structures w ere obtained assessing grayscale appearance, color and spectral flow FINDINGS: Normal flow, compressibility, phasicity and augmentation of the left lower extremity deep venous stru ctures. IMPRESSION: No sonographic evidence of deep venous thrombosis. The above report was generated using voice recognition software. It may contain grammatical, syntax o r spelling errors. Electronically signed by: Shaun Dumont M.D. 04/29/2019 6:26 AM
--- NOTE | 2019-04-29 07:14 | XRay Report ---
LEFT TIBIA AND FIBULA 2 VIEWS CLINICAL HISTORY: Left leg pain. FINDINGS: AP and lateral views of the left tibia and fibula are obtained. No prior studies are availa ble for comparison at the time of dictation. The skeletal structures appear osteopenic. No fracture i s seen. The knee and ankle joints are grossly maintained. Atherosclerotic calcification is noted in t he regional arteries. Mild soft tissue edema is noted in the left lower extremity. IMPRESSION: No acute bony abnormality is identified. Electronically signed by: Washington Chance M.D. 04/29/2019 7:13 AM
--- NOTE | 2019-04-29 07:16 | XRay Report ---
SINGLE VIEW CHEST CLINICAL HISTORY: Tachycardia. FINDINGS: An AP, portable, upright chest radiograph is compared to study dated 04/01/2019 and correla vlad with chest CT dated 03/12/2019. The examination is degraded by portable technique and patient rot ation. A right internal jugular central venous catheter is new from previous. The heart is enlarged n oting atherosclerotic calcification of the thoracic aorta. There is mild pulmonary vascular congestio n. There are trace pleural effusions with bibasilar atelectasis. No pneumothorax is seen. The skeleta l structures are osteopenic. The bony thorax is grossly intact. IMPRESSION: 1. Cardiomegaly with evidence of mild congestive failure. 2. Trace pleural effusions. Electronically signed by: Washington Chance M.D. 04/29/2019 7:15 AM
[2019-04-29] MEDS: CARBOHYDRATES FOR HYPOGLYCEMIA PO PRN (07:27)
[2019-04-29] MEDS: INSULIN ASPART 100 UNITS/ML 3 ML PEN SC SCH ×4 (07:53→20:50)
[2019-04-29] MEDS: INSULIN GLARGINE SOLOSTAR 100 UNITS/ML 3 ML PEN SQ SCH ×2 (07:54→20:50)
[2019-04-29] MEDS: FUROSEMIDE 80 MG TAB PO SCH ×2 (08:05→17:05)
[2019-04-29] MEDS: SERTRALINE HCL 50 MG TABLET PO SCH (08:05)
[2019-04-29] MEDS: ASPIRIN 81 MG ECTAB PO SCH (08:05)
[2019-04-29] MEDS: CLOPIDOGREL BISULFATE 75 MG TAB PO SCH (08:06)
[2019-04-29] MEDS: carvediloL 12.5 MG TAB PO SCH ×2 (08:06→19:50)
--- NOTE | 2019-04-29 08:32 | Hospitalist Progress Note ---
Date of Service April 29, 2019 Assessment & Plan (1) Atrial flutter with rapid ventricular response: Atrial flutter with RVR/HFpEF/CAD/hypertension- The patient will be admitted to telemetry for serial cardiac enzymes, serial EKG's, cardiac rhythm monitoring. Appreciate cardiology recommendations. Continue 0.1 mg p.o. twice daily and carvedilol 12.5 mg p.o. twice daily. Patient might need a loop recorder to determine his atrial fibrillation burden. Hold hydralazine 100 mg p.o. 3 times daily and amlodipine 10 mg p.o. every morning since blood pressure is at the lower side. Continue aspirin 81 mg daily We will give a single dose of Lovenox 1 mg/kg subcu tonight. Consult cardiology (2) (HFpEF) heart failure with preserved ejection fraction: See above (3) CAD (coronary artery disease): See above (4) ESRD (end stage renal disease): Consult nephrology Dr. Richard. (5) Depression: Continue sertraline. (6) Diabetes mellitus type 2 in obese: For now, reduce Lantus from 50 to 25 units subcu twice daily. Placed on Accu-Cheks before meals and at bedtime with NovoLog coverage for scale (7) Hypercholesterolemia: Continue atorvastatin 20 mg every evening Subjective Patient seen and examined at the bedside. Sitting up comfortably in the bed. Patient is not aware of his atrial flutter. Only complaint patient has today is sciatic nerve pain on the left side that is bothering his thigh and upper part of the knee. Patient has good p.o. intake. Patient denies fever, chills, chest pain, shortness of breath, abdominal pain, frequency, urgency. Patient has placed right-sided permacath for his hemodialysis which was started on April 03, 2019. Review of Systems Review of Systems: All systems reviewed & are unremarkable except as noted in HPI & below Physical Exam Constitutional: well developed and + obese; no acute distress Eyes: no scleral abnormality and no corneal abnormality ENMT: Mouth: no oral mucosal abnormality and oral mucous membranes not dry Neck: normal visual inspection, trachea midline and + thick neck Respiratory: normal respiratory effort Auscultation: lungs clear to auscultation bilaterally Cardiovascular: Rate/Rhythm: regular rate Heart Sounds: normal S1 and normal S2 Vessels: no JVD Extremities: + AV fistula; no edema Gastrointestinal (Abdomen): Inspection/Auscultation: + abdomen distended Percussion/Palpation: abdomen nontender Musculoskeletal: Extremities: no cyanosis and no clubbing Skin: normal turgor; no lesions Neurologic: Motor/Sensory: no tremor and no asterixis Psychiatric: Orientation: alert and oriented x 3 Results & Data Vital Signs (Past 12 Hours) Vital Signs Temp Pulse Pulse Resp BP BP Pulse Ox 04/29/19 07:13 36.6 C 74 20 116/69 93 04/29/19 04:18 125 H 110/70 04/29/19 03:02 36.7 C 132 H 19 101/70 97 04/29/19 02:45 130 H 14 89 L 04/29/19 02:00 104 H 16 123/72 89 L 04/29/19 01:46 120 H 126/88 04/29/19 01:05 102 H 16 113/86 91 04/29/19 00:31 106 H 113/86 04/29/19 00:14 122 H 16 109/73 91 04/29/19 00:11 135 H 141/104 H 04/28/19 23:51 37 C 135 H 16 131/79 94 PG Care Time/CCT Total # of Minutes Spent Total Time Spent with Patient: Total time spent is greater than 50% in coordination of care (as documented) at patient's floor/unit and/or counseling patient: (1) CAD (coronary artery disease) Associated angina: without angina Coronary Disease-Associated Artery/Lesion type: [place] artery [place] vs. transplanted heart: [place] heart Qualified Code(s): I25.10 - Atherosclerotic heart disease of [place] coronary artery without angina pectoris (2) Depression Active/Remission status: remission status unspecified Depression Type: major depressive disorder Major depression recurrence: recurrent Qualified Code(s): F33.9 - Major depressive disorder, recurrent, unspecified
[2019-04-29] MEDS: cloNIDine HCL 0.1 MG TAB PO SCH ×2 (09:00→19:50)
--- NOTE | 2019-04-29 09:47 | Nephrology Consultation ---
Date of Consultation April 29, 2019 Assessment & Plan (1) Atrial flutter with rapid ventricular response: Cardiology consultation pending. Angel is in NSR this morning. Angel has been normotensive. Unclear prior history of SVT. (2) (HFpEF) heart failure with preserved ejection fraction: Volume status currently relatively euvolemic. (3) CAD (coronary artery disease): (4) ESRD (end stage renal disease): BP, volume status, and electrolytes are acceptable. Plan HD tomorrow per TTS schedule. Records from [facility] were reviewed. Patient has been tolerating HD reasonably well with some intermittent leg cramps. Medications are currently appropriately dosed for kidney function. AVF not currently in use pending transposition. TDC intact. Renal diet. Repeat metabolic profile in the AM. (5) Diabetes mellitus type 2 in obese: History of Present Illness Reason for Consultation: ESRD on HD Requesting Physician: Stephon Myers MD Attending Physician: Stephon Myers MD History of Present Illness Angel Solorio is a 68-year-old male with ESRD. He started HD on April 03, 2019 during an inpatient admission to [facility]. Patient is well known from prior admission. He receives HD on a TTS schedule at [facility] under the care of Dr. Raza. Angel followed with Nephrology the [facility] in [place] prior to starting dialysis. Angel receives most of his healthcare through the [facility]. Home care nursing follows the patient regularly. Angel noted that his physician at the [facility] recent increased carvedilol from 6.25 mg to 12.5 mg BID. CKD has been attributed to diabetes and hypertension. Prior to starting dialysis, Angel had multiple admissions with acute on chronic respiratory complaints attributed to volume overload. Medical history is notable for h ypertension, diabetes mellitus, obstructive sleep apnea, morbid obesity, and chronic diastolic congestive heart failure. Angel notes that he had atrial fibrillation in the past as well. Angel presented to the hospital yesterday with ongoing pain in his left leg and persistent tachycardia. He was found to be in SVT at 130 bpm. Rate has now been controlled and Angel feels well. He continues to experience leg pain in his left knee. He feels unstable walking on the knee. He denies any lower leg pain. He denies paraesthesias. He denies trauma. He denies swelling. He denies chest pain. He completed his last scheduled dialysis treatment on Monday as an outpatient without complications. He never had a kidney biopsy. No family history of chronic kidney disease or end-stage renal disease. Denies chronic NSAID use. He has right brachiocephalic AV fistula placed in November. This was part of a 2 step procedure. Angel follows with [facility] in [place]. The revision procedure with transposition is scheduled for May. Patient is also actively listed for kidney transplant at the [facility]. B Allergies Allergy/AdvReac Type Severity Reaction Status Date / Time ragweed pollen Allergy Mild [place] Verified 04/03/19 12:38 Home Medications Home Medications Medication Instructions Recorded Confirmed Type Novolog PenFill U-100 Insulin 10 unit SUBCUT AC 01/06/19 03/29/19 History albuterol sulfate 2 puff INHALATION Q6H PRN 01/06/19 03/29/19 History amlodipine 10 mg PO QAM 01/06/19 03/29/19 History atorvastatin 20 mg PO PM 01/06/19 03/29/19 History clonidine HCl 0.1 mg PO BID 01/06/19 03/29/19 History furosemide [Lasix] 80 mg PO BID 01/06/19 03/29/19 History hydralazine 100 mg PO TID 01/06/19 03/29/19 History loratadine 10 mg PO DAILY PRN 01/06/19 03/29/19 History sertraline 25 mg PO QAM 01/06/19 03/29/19 History tamsulosin 0.4 mg PO QAM 01/06/19 03/29/19 History Lantus Solostar U-100 Insulin 50 unit SUBCUT BID 03/06/19 03/29/19 History aspirin [Aspir-81] 81 mg PO DAILY 03/06/19 03/29/19 History carvedilol [Coreg] 12.5 mg PO BID 03/06/19 03/29/19 History clopidogrel [Plavix] 75 mg PO DAILY 03/06/19 03/29/19 History Patient History Medical History Anemia CAD (coronary artery disease) s/p stent 2018 CKD (chronic kidney disease) Stage 4 Diabetes Dyslipidemia ESRD (end stage renal disease) HTN (hypertension) (Chronic) Sleep apnea (Chronic) does not use CPAP Surgical History AV fistula Family History Other Hypertension Social History Preferred Language: Mexican Communication Ability: Effective Bobbin Handler Required: No Beliefs That Will Affect Care: None marital status: Current Living Situation: Alone Feels Safe at Home: Yes Safety Concerns: Feels Safe At This Time Smoking Status: Current every day smoker Tobacco Type: cigars ; Cigarettes Per Day: one cigar every so often, less than one a month usually ; Second Hand Exposure: No ; Hx Alcohol Use: Yes Alcohol type: beer Hx Substance Use: No Review of Systems Review of Systems: All systems reviewed & are unremarkable except as noted in HPI & below Physical Exam Constitutional: well developed and + obese; no acute distress Eyes: no scleral abnormality and no corneal abnormality ENMT: Mouth: no oral mucosal abnormality and oral mucous membranes not dry Neck: normal visual inspection, trachea midline and + thick neck RIJ TDC Respiratory: normal respiratory effort Auscultation: lungs clear to auscultation bilaterally Cardiovascular: Rate/Rhythm: regular rate Heart Sounds: normal S1 and normal S2 Vessels: no JVD Extremities: + AV fistula; no edema Gastrointestinal (Abdomen): Inspection/Auscultation: + abdomen distended Percussion/Palpation: abdomen nontender Musculoskeletal: Extremities: no cyanosis and no clubbing Skin: normal turgor; no lesions Neurologic: Motor/Sensory: no tremor and no asterixis Psychiatric: Orientation: alert and oriented x 3 Results & Data Vital Signs (Past 12 Hours) Vital Signs Temp Pulse Pulse Resp BP BP Pulse Ox 04/29/19 08:00 82 04/29/19 07:13 36.6 C 74 20 116/69 93 04/29/19 04:18 125 H 110/70 04/29/19 03:02 36.7 C 132 H 19 101/70 97 04/29/19 02:45 130 H 14 89 L 04/29/19 02:00 104 H 16 123/72 89 L 04/29/19 01:46 120 H 126/88 04/29/19 01:05 102 H 16 113/86 91 04/29/19 00:31 106 H 113/86 04/29/19 00:14 122 H 16 109/73 91 04/29/19 00:11 135 H 141/104 H 04/28/19 23:51 37 C 135 H 16 131/79 94 PG Care Time/CCT Total # of Minutes Spent Total Time Spent with Patient: Total time spent is greater than 50% in coordination of care (as documented) at patient's floor/unit and/or counseling patient: (1) CAD (coronary artery disease) Coronary Disease-Associated Artery/Lesion type: [place] artery [place] vs. transplanted heart: [place] heart Associated angina: without angina Qualified Code(s): I25.10 - Atherosclerotic heart disease of [place] coronary artery without angina pectoris
[2019-04-29 09:54] LABS: Estimated Average Glucose 128 mg/dl; Hemoglobin A1C 6.1 % (4.5-5.6)
[2019-04-29] MEDS: LIDOCAINE 5% 1 PATCH TD SCH (10:15)
--- NOTE | 2019-04-29 10:40 | Cardiology Consultation ---
Date of Consultation April 29, 2019 Assessment & Plan (1) Atrial flutter with rapid ventricular response: He presented in atrial flutter with a rapid heart rate, symptomatically it seems that he was not aware of the rhythm but he did pick it up with his blood pressure monitor. He waited 24 hours to come in because he thought his high heart rate (I think he still believes this) was due to not having clonidine and carvedilol due to some medication foul-up. It is certainly possible that in the past carvedilol has helped control heart rate during atrial flutter, however it is unlikely that it was instrumental in keeping him in sinus rhythm as opposed atrial flutter. I would therefore conclude that he is at risk for recurrence and possibly has had the arrhythmia in the past. As such we need to consider anticoagulation, he was in it for at least 36 hours and therefore is at some risk of stroke. Not being on his carvedilol prior to admission makes it unclear how much rate control he needs in addition to his scheduled carvedilol 12.5 mg twice a day. Perhaps that is sufficient. He does have a relative contraindication to anticoagulation and that he is on dialysis, he additionally is on aspirin and Plavix for his recent stent. The role of anticoagulants in this setting is still controversial, in the absence of his dialysis most cardiologists would consider using 1 of the newer anticoagulants and clopidogrel with discontinuation of aspirin, however the data for anticoagulant use during atrial fibrillation (or flutter which should be the same) in patients on hemodialysis is somewhat unclear since it does clearly increase the risk of bleeding and especially so if we need to continue platelet inhibitors. Since he is currently not in the arrhythmia and we do not know how much his burden is I think at the moment I would probably not anticoagulate but would continue his current antiplatelet regimen. One option might be to implant a loop recorder so we know his burden and can better assess his need for anticoagulation. 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 (2) CAD (coronary artery disease): He has coronary disease with a recent stent placement, he is on aspirin and Plavix. There is no evidence that he had ischemia with this presentation (initial troponin not detectable) therefore I would not pursue progression of coronary artery disease. (3) ESRD (end stage renal disease): He is now on dialysis, this complicates our anticoagulation usage but probably does not affect his other medications. (4) Sinus node dysfunction: He has sinus node dysfunction as evidenced by a markedly abnormal sinus node recovery time with termination of atrial flutter (he had an asymptomatic 5- second pause). Some of this is certainly due to his medical regimen, but he nee ds medications for rate control and he was on carvedilol for his coronary artery disease I believe and he may have mildly reduced left ventricular function. He also received intravenous metoprolol. At this point I would probably continue to observe, he does not have symptoms related to it but we do not know if this will become more of a problem. A loop recorder might also be useful in this regard in addition to determining his atrial fibrillation burden. History of Present Illness Reason for Consultation: Atrial flutter, coronary artery disease Attending Physician: Stephon Myers MD History of Present Illness This is a 68-year-old male who has history of diabetes, COPD, hypertension, end- stage renal disease on hemodialysis. He has had multiple recent admissions, he recently had a right-sided permacath placed and his first hemodialysis treatment was April 03, 2019. He also has known coronary artery disease and [facility]. I do not have detailed records but it sounds as though he had a stent placed in January 2019 in [place]. He presented with leg pain, however observed that his heart rate was elevated for the last day and he was noted to be in atrial flutter with 2-1 AV conduction and a ventricular rate of 130 bpm. This converted at 5:39 AM today to sinus rhythm, he did have a 5-second pause with termination. This arrhythmia had been treated with metoprolol tartrate but he was not on intravenous diltiazem. He also takes carvedilol 12.5 mg twice a day as an outpatient. He is on aspirin and he did receive 1 dose of Lovenox. He did have echocardiography performed March 11, 2019 which showed a mildly dilated left ventricular size with normal function. His first troponin here was undetectable. I discussed with him his symptoms at length. He does not seem to have had any symptoms of his arrhythmia, he noted that his heart rate was elevated when he took his blood pressure on Monday (the evening before admission) and then on Monday when it was still high he came into the emergency room where the diagnosis was made. He was therefore in it for at least 36 hours, possibly longer. He explained to me that the reason he had this was because the [facility] and had him run out of both clonidine (which he assures me controls his heart rate) and carvedilol. I explained to him several times that they may control his heart rate during arrhythmia but probably not the rhythm itself, I do not know that he knows the difference. He has not been on an anticoagulant but does take aspirin and Plavix for his recent stent. He does not recall having this diagnosis before and feels that if he had it before we would have seen it because he has been in the hospital on several occasions and has had electrocardiograms. He had no chest discomfort with this and other than being fatigued and having leg pain which limits his activity he has had no exertional shortness of breath or exertional chest pain. He did convert with a long pause this morning which he did not feel. Allergies Allergy/AdvReac Type Severity Reaction Status Date / Time ragweed pollen Allergy Mild [place] Verified 04/03/19 12:38 Home Medications Home Medications Medication Instructions Recorded Confirmed Type Novolog PenFill U-100 Insulin 10 unit SUBCUT AC 01/06/19 03/29/19 History albuterol sulfate 2 puff INHALATION Q6H PRN 01/06/19 03/29/19 History amlodipine 10 mg PO QAM 01/06/19 03/29/19 History atorvastatin 20 mg PO PM 01/06/19 03/29/19 History clonidine HCl 0.1 mg PO BID 01/06/19 03/29/19 History furosemide [Lasix] 80 mg PO BID 01/06/19 03/29/19 History hydralazine 100 mg PO TID 01/06/19 03/29/19 History loratadine 10 mg PO DAILY PRN 01/06/19 03/29/19 History sertraline 25 mg PO QAM 01/06/19 03/29/19 History tamsulosin 0.4 mg PO QAM 01/06/19 03/29/19 History Lantus Solostar U-100 Insulin 50 unit SUBCUT BID 03/06/19 03/29/19 History aspirin [Aspir-81] 81 mg PO DAILY 03/06/19 03/29/19 History carvedilol [Coreg] 12.5 mg PO BID 03/06/19 03/29/19 History clopidogrel [Plavix] 75 mg PO DAILY 03/06/19 03/29/19 History Patient History Medical History Anemia CAD (coronary artery disease) s/p stent 2018 CKD (chronic kidney disease) Stage 4 Diabetes Dyslipidemia ESRD (end stage renal disease) HTN (hypertension) (Chronic) Sleep apnea (Chronic) does not use CPAP Surgical History AV fistula Family History Other Hypertension Social History Preferred Language: [place] Communication Ability: Effective Associate Professor Of 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 He is obese. HEENT: Unremarkable Neck: No jugular venous distention, carotid pulses are normal and equal bilaterally without bruits. Pulmonary: Clear to auscultation bilaterally. Cardiac: Regular rhythm with no murmur, gallop or rub. Abdomen: Soft, nontender with normal bowel sounds. Extremities: No edema. Distal pulses intact. Neurologic: No focal findings. Gait is steady. Skin: No rash, ecchymoses or petechiae. Results & Data Vital Signs (Past 12 Hours) Vital Signs Temp Pulse Pulse Resp BP BP Pulse Ox 04/29/19 08:00 82 04/29/19 07:13 36.6 C 74 20 116/69 93 04/29/19 04:18 125 H 110/70 04/29/19 03:02 36.7 C 132 H 19 101/70 97 04/29/19 02:45 130 H 14 89 L 04/29/19 02:00 104 H 16 123/72 89 L 04/29/19 01:46 120 H 126/88 04/29/19 01:05 102 H 16 113/86 91 04/29/19 00:31 106 H 113/86 04/29/19 00:14 122 H 16 109/73 91 04/29/19 00:11 135 H 141/104 H 04/28/19 23:51 37 C 135 H 16 131/79 94 Laboratory Results Abnormal lab results 04/28/19 04/28/19 04/28/19 Range/Units 23:58 23:58 23:58 WBC 11.13 H (4.8-10.8) K/uL RBC 4.25 L (4.7-6.1) M/uL Hgb 12.0 L (14.0-18.0) g/dL Hct 37.7 L (42-52) % MCHC 31.8 L (32-36) g/dL RDW Std Deviation 54.5 H (36.4-46.3) fL RDW Coeff of Atif 16.7 H (11.5-14.5) % Immature Gran # (Auto) 0.03 H (0.00-0.02) K/uL Neut # (Auto) 8.50 H (1.4-6.5) K/uL Lymph # (Auto) 1.14 L (1.2-3.4) K/uL [place] # (Auto) 1.24 H (0.11-0.59) K/uL BUN 50 H (7-18) mg/dl Creatinine 3.94 H (0.6-1.4) mg/dl Hemoglobin A1c 6.1 H (4.5-5.6) % AST 10 L (15-37) U/L Albumin 3.2 L (3.4-5.0) gm/dl Diagnostic Findings His first electrocardiogram here on April 28, 2019 at just before midnight shows typical atrial flutter with 2-1 AV conduction and a ventricular rate of 130 bpm. Another electrocardiogram done about an hour later shows atrial flutter with a better controlled heart rate at 103 bpm. A third electrocardiogram done this morning at 7 AM shows sinus rhythm with first-degree AV block and possibly a long QT interval. Telemetry monitoring showed atrial flutter initially with a somewhat controlled heart rate by coin box inspector hours and then termination of the atrial flutter at 5:39 AM with a 5-second pause before sinus rhythm resumed. PG Care Time/CCT Total # of Minutes Spent Total Time Spent with Patient: Total time spent is greater than 50% in cool roofing installer rdination of care (as documented) at patient's floor/unit and/or counseling patient: (1) CAD (coronary artery disease) Coronary Disease-Associated Artery/Lesion type: [place] artery [place] vs. transplanted heart: [place] heart Associated angina: without angina Qualified Code(s): I25.10 - Atherosclerotic heart disease of [place] coronary artery without angina pectoris
[2019-04-29] MEDS: TAMSULOSIN HCL 0.4 MG CAP PO SCH (19:49)
[2019-04-29] MEDS: ATORVASTATIN 20 MG TAB PO SCH (19:50)
[2019-04-30] MEDS ORDERED: SODIUM CHLORIDE 0.9% 1000ML 1,000 ML IV PRN (07:00)
[2019-04-30] MEDS: FUROSEMIDE 80 MG TAB PO SCH ×2 (08:21→17:42)
[2019-04-30] MEDS: SERTRALINE HCL 50 MG TABLET PO SCH (08:21)
[2019-04-30] MEDS: ASPIRIN 81 MG ECTAB PO SCH (08:21)
[2019-04-30] MEDS: CLOPIDOGREL BISULFATE 75 MG TAB PO SCH (08:21)
[2019-04-30] MEDS: LIDOCAINE 5% 1 PATCH TD SCH (08:22)
[2019-04-30] MEDS: INSULIN ASPART 100 UNITS/ML 3 ML PEN SC SCH ×4 (08:22→20:22)
[2019-04-30] MEDS: INSULIN GLARGINE SOLOSTAR 100 UNITS/ML 3 ML PEN SQ SCH ×2 (08:24→20:23)
[2019-04-30 08:25] LABS: BUN Creatinine Ratio 15.6 (10-20); Calcium 8.8 mg/dl (8.5-10.1); Creatinine Clr Calc Pharmacy 21.5 ml/min; Est GFR (African American) 14.9; Est GFR (Non-African American) 12.9; Phosphorus 6.2 mg/dl (2.5-4.9); Potassium 4.2 mmol/L (3.5-5.1)
[2019-04-30] MEDS: carvediloL 12.5 MG TAB PO SCH ×2 (08:25→20:20)
[2019-04-30] MEDS: cloNIDine HCL 0.1 MG TAB PO SCH ×2 (08:25→20:20)
--- NOTE | 2019-04-30 09:31 | Nephrology Progress Note ---
Date of Service April 30, 2019 Assessment & Plan (1) Atrial flutter with rapid ventricular response: Remains in NSR on tele this AM. Cardiology consult reviewed. Anticoagulation deferred at this time in favor of dual antiplatelet. Complex bleeding risk with dialysis. AVR to be transposed. Follow up with cardiology at [facility] as an outpatient. (2) (HFpEF) heart failure with preserved ejection fraction: Volume status remains acceptable. (3) CAD (coronary artery disease): See above (4) ESRD (end stage renal disease): Orders for HD today entered into EMR and reviewed with HD nurse. Qb 300 via TDC. 3K. 3L UF goal. Medications are currently appropriately dosed for kidney function. Renal diet. Continue TTS HD schedule. (5) Diabetes mellitus type 2 in obese: Subjective Leg pain improved. No events overnight. Feels well this morning. No dyspnea. No chest pain or palpitations. No lightheadedness, dizziness, syncope, or presyncope. Review of Systems Review of Systems: All systems reviewed & are unremarkable except as noted in HPI & below Physical Exam Constitutional: well developed and + obese; no acute distress Eyes: no scleral abnormality and no corneal abnormality ENMT: Mouth: no oral mucosal abnormality and oral mucous membranes not dry Neck: normal visual inspection, trachea midline and + thick neck Respiratory: normal respiratory effort Auscultation: lungs clear to auscultation bilaterally Cardiovascular: Rate/Rhythm: regular rate Heart Sounds: normal S1 and normal S2 Vessels: no JVD Extremities: + AV fistula; no edema Gastrointestinal (Abdomen): Inspection/Auscultation: + abdomen distended Percussion/Palpation: abdomen nontender Musculoskeletal: Extremities: no cyanosis and no clubbing Skin: normal turgor; no lesions Neurologic: Motor/Sensory: no tremor and no asterixis Psychiatric: Orientation: alert and oriented x 3 Results & Data Vital Signs (Past 12 Hours) Vital Signs Temp Pulse Resp BP Pulse Ox 04/30/19 07:23 36.5 C 56 L 18 129/71 91 04/30/19 03:08 36.6 C 60 19 132/69 91 04/29/19 23:27 36.5 C 56 L 18 113/68 92 Laboratory Results Laboratory Results - last 24 hr 04/28/19 04/29/19 04/29/19 23:58 07:21 07:23 Sodium Potassium Chloride Carbon Dioxide Anion Gap BUN Creatinine Est Cr Clr Drug Dosing Est GFR ( Amer) Est GFR (Non-Af Amer) BUN/Creatinine Ratio Glucose POC Glucose 55 L* 50 L* Estimat Average Glucose 128 Hemoglobin A1c 6.1 H Calcium Phosphorus Albumin 04/29/19 04/29/19 04/29/19 07:45 11:21 16:13 Sodium Potassium Chloride Carbon Dioxide Anion Gap BUN Creatinine Est Cr Clr Drug Dosing Est GFR ( Amer) Est GFR (Non-Af Amer) BUN/Creatinine Ratio Glucose POC Glucose 83 102 H 116 H Estimat Average Glucose Hemoglobin A1c Calcium Phosphorus Albumin 04/29/19 04/30/19 20:30 07:19 Sodium 136 Potassium 4.2 D Chloride 100 Carbon Dioxide 29 Anion Gap 7.0 BUN 69 H Creatinine 4.42 H D Est Cr Clr Drug Dosing 21.5 Est GFR ( Amer) 14.9 Est GFR (Non-Af Amer) 12.9 BUN/Creatinine Ratio 15.6 Glucose 108 H POC Glucose 126 H Estimat Average Glucose Hemoglobin A1c Calcium 8.8 Phosphorus 6.2 H Albumin 3.0 L PG Care Time/CCT Total # of Minutes Spent Total Time Spent with Patient: Total time spent is greater than 50% in coordination of care (as documented) at patient's floor/unit and/or counseling patient: (1) CAD (coronary artery disease) Coronary Disease-Associated Artery/Lesion type: [place] artery [place] vs. transplanted heart: [place] heart Associated angina: without angina Qualified Code(s): I25.10 - Atherosclerotic heart disease of [place] coronary artery without angina pectoris
--- NOTE | 2019-04-30 18:06 | Hospitalist Progress Note ---
Date of Service April 30, 2019 Assessment & Plan (1) Atrial flutter with rapid ventricular response: Atrial flutter with RVR/HFpEF/CAD/hypertension- The patient will be admitted to telemetry for serial cardiac enzymes, serial EKG's, cardiac rhythm monitoring. Appreciate cardiology recommendations. N.p.o. after midnight for loop recorder placement to determine his atrial fibrillation burden. Continue 0.1 mg p.o. twice daily and carvedilol 12.5 mg p.o. twice daily. Hold hydralazine 100 mg p.o. 3 times daily and amlodipine 10 mg p.o. every morning since blood pressure is at the lower side. Continue aspirin 81 mg daily, continue clopidogrel 75 mg p.o. daily. Full code (2) (HFpEF) heart failure with preserved ejection fraction: See above (3) CAD (coronary artery disease): See above (4) ESRD (end stage renal disease): Consult nephrology Dr. Richard. (5) Depression: Continue sertraline. (6) Diabetes mellitus type 2 in obese: For now, reduce Lantus from 50 to 25 units subcu twice daily. Placed on Accu-Cheks before meals and at bedtime with NovoLog coverage for scale (7) Hypercholesterolemia: Continue atorvastatin 20 mg every evening Subjective Patient seen and examined at the bedside. Normal sinus rhythm. Anticoagulation deferred at this time in favor of dual antiplatelet. Complex bleeding risk with dialysis. Patient tolerated hemodialysis well today. Leg pain improved. No events overnight. Afebrile. Patient denies fever, chills, chest pain, shortness of breath, lightheadedness, frequency, urgency, abdominal pain, hematuria, dysuria, melena, nausea, vomiting syncope or presyncope. Review of Systems Review of Systems: All systems reviewed & are unremarkable except as noted in HPI & below Physical Exam Constitutional: well developed and + obese; no acute distress Eyes: no scleral abnormality and no corneal abnormality ENMT: Mouth: no oral mucosal abnormality and oral mucous membranes not dry Neck: normal visual inspection, trachea midline and + thick neck Respiratory: normal respiratory effort Auscultation: lungs clear to auscultation bilaterally Cardiovascular: Rate/Rhythm: regular rate Heart Sounds: normal S1 and normal S2 Vessels: no JVD Extremities: + AV fistula; no edema Gastrointestinal (Abdomen): Inspection/Auscultation: + abdomen distended Percussion/Palpation: abdomen nontender Musculoskeletal: Extremities: no cyanosis and no clubbing Skin: normal turgor; no lesions Neurologic: Motor/Sensory: no tremor and no asterixis Psychiatric: Orientation: alert and oriented x 3 Results & Data Vital Signs (Past 12 Hours) Vital Signs Temp Pulse Pulse Pulse Pulse Resp BP 04/30/19 17:17 62 04/30/19 15:15 36.6 C 61 20 04/30/19 13:20 36.6 C 58 L 04/30/19 13:00 59 L 111/71 04/30/19 12:40 62 115/69 04/30/19 12:20 57 L 108/67 04/30/19 12:00 57 L 117/60 04/30/19 11:40 57 L 112/59 L 04/30/19 11:20 56 L 114/65 04/30/19 11:00 60 125/62 04/30/19 10:40 55 L 114/66 04/30/19 10:20 54 L 107/63 04/30/19 10:00 56 L 105/57 L 04/30/19 09:41 36.6 C 57 L 04/30/19 08:20 65 04/30/19 07:23 36.5 C 56 L 18 BP Pulse Ox 04/30/19 17:17 04/30/19 15:15 110/55 L 86 L 04/30/19 13:20 126/72 04/30/19 13:00 04/30/19 12:40 04/30/19 12:20 04/30/19 12:00 04/30/19 11:40 04/30/19 11:20 04/30/19 11:00 04/30/19 10:40 04/30/19 10:20 04/30/19 10:00 04/30/19 09:41 04/30/19 08:20 04/30/19 07:23 129/71 91 PG Care Time/CCT Total # of Minutes Spent Total Time Spent with Patient: Total time spent is greater than 50% in coordination of care (as documented) at patient's floor/unit and/or counseling patient: (1) CAD (coronary artery disease) Coronary Disease-Associated Artery/Lesion type: [place] artery [place] vs. transplanted heart: [place] heart Associated angina: without angina Qualified Code(s): I25.10 - Atherosclerotic heart disease of [place] coronary artery without angina pectoris (2) Depression Depression Type: major depressive disorder Major depression recurrence: recurrent Active/Remission status: remission status unspecified Qualified Code(s): F33.9 - Major depressive disorder, recurrent, unspecified
[2019-04-30] MEDS: TAMSULOSIN HCL 0.4 MG CAP PO SCH (20:20)
[2019-04-30] MEDS: ATORVASTATIN 20 MG TAB PO SCH (20:20)
[2019-05-01 07:15] LABS: Basophils # (auto) 0.03 K/uL (0-0.2); Basophils % (auto) 0.3 %; Eosinophils % (auto) 3.2 %; Hematocrit (blood only) 34.8 % (42-52); Hemoglobin 10.8 g/dL (14.0-18.0); Immature Granulocytes # (auto) 0.03 K/uL (0.00-0.02); Immature Granulocytes % (auto) 0.3 %; Lymphocytes % (auto) 14.9 %; Mean Corpuscular Hemoglobin 27.6 pg (25-34); Mean Platelet Volume 9.8 fL (7.4-10.4); Monocytes % (auto) 6.4 %; Neutrophils # (auto) 7.04 K/uL (1.4-6.5); Neutrophils % (auto) 74.9 %; Platelet Count 202 K/uL (130-400); RDW Coefficient of Variation 16.4 % (11.5-14.5); RDW Standard Deviation 53.7 fL (36.4-46.3); Red Blood Count 3.91 M/uL (4.7-6.1)
[2019-05-01] MEDS ORDERED: Nursing to Pharmacy Communication ONE ×2 (07:17→15:30)
[2019-05-01 07:25] LABS: INR 1.1 (0.9-1.1); Partial Thromboplastin Ratio 1.1; Partial Thromboplastin Time 29.7 Seconds (21.0-31.0); Prothrombin Time 10.9 Seconds (9.0-12.0)
[2019-05-01 07:51] LABS: BUN Creatinine Ratio 12.6 (10-20); Calcium 8.7 mg/dl (8.5-10.1); Creatinine Clr Calc Pharmacy 25.3 ml/min; Est GFR (African American) 18.2; Est GFR (Non-African American) 15.7; Potassium 4.7 mmol/L (3.5-5.1)
[2019-05-01 07:54] LABS: Albumin Globulin Ratio 0.7 (0.9-2); Bilirubin,Total 0.3 mg/dl (0.2-1); Globulin 4.4 gm/dl (2.5-4.0); Total Protein 7.4 gm/dl (6.4-8.2)
[2019-05-01] MEDS: carvediloL 12.5 MG TAB PO SCH ×2 (08:55→20:08)
[2019-05-01] MEDS: FUROSEMIDE 80 MG TAB PO SCH ×2 (08:55→17:27)
[2019-05-01] MEDS: SERTRALINE HCL 50 MG TABLET PO SCH (08:55)
[2019-05-01] MEDS: cloNIDine HCL 0.1 MG TAB PO SCH ×2 (08:55→20:07)
[2019-05-01] MEDS: INSULIN GLARGINE SOLOSTAR 100 UNITS/ML 3 ML PEN SQ SCH ×2 (08:56→20:10)
[2019-05-01] MEDS: LIDOCAINE 5% 1 PATCH TD SCH (08:56)
--- NOTE | 2019-05-01 10:24 | Nephrology Progress Note ---
Date of Service May 01, 2019 Assessment & Plan (1) Atrial flutter with rapid ventricular response: Loop recorder to be placed today. (2) (HFpEF) heart failure with preserved ejection fraction: Volume status remains acceptable. (3) CAD (coronary artery disease): See above (4) ESRD (end stage renal disease): BP and volume status are acceptable. Electrolytes appropriate. Renal diet. Continue TTS HD schedule. Inpatient orders will be coordinated if Angel remains hospitalized. Resume TTS treatment schedule at [facility] post discharge. (5) Diabetes mellitus type 2 in obese: Subjective No acute events overnight. Tolerated HD yesterday without complications. Angel feels well this morning. Review of Systems Review of Systems: All systems reviewed & are unremarkable except as noted in HPI & below Physical Exam Constitutional: well developed and + obese; no acute distress Eyes: no scleral abnormality and no corneal abnormality ENMT: Mouth: no oral mucosal abnormality and oral mucous membranes not dry Neck: normal visual inspection, trachea midline and + thick neck Respiratory: normal respiratory effort Auscultation: lungs clear to auscultation bilaterally Cardiovascular: Rate/Rhythm: regular rate Heart Sounds: normal S1 and normal S2 Vessels: no JVD Extremities: + AV fistula; no edema Gastrointestinal (Abdomen): Inspection/Auscultation: + abdomen distended Percussion/Palpation: abdomen nontender Musculoskeletal: Extremities: no cyanosis and no clubbing Skin: normal turgor; no lesions Neurologic: Motor/Sensory: no tremor and no asterixis Psychiatric: Orientation: alert and oriented x 3 Results & Data Vital Signs (Past 12 Hours) Vital Signs Temp Pulse Pulse Resp BP Pulse Ox 05/01/19 10:17 52 L 05/01/19 08:13 36.8 C 56 L 18 121/69 98 05/01/19 03:40 36.7 C 58 L 19 115/65 92 04/30/19 23:17 36.5 C 57 L 18 112/66 95 Laboratory Results Laboratory Results - last 24 hr 04/30/19 04/30/19 04/30/19 07:40 13:44 16:22 WBC RBC Hgb Hct MCV MCH MCHC RDW Std Deviation RDW Coeff of Atif Plt Count MPV Immature Gran % (Auto) Neut % (Auto) Lymph % (Auto) [place] % (Auto) Eos % (Auto) Baso % (Auto) Immature Gran # (Auto) Neut # (Auto) Lymph # (Auto) [place] # (Auto) Eos # (Auto) Baso # (Auto) PT INR APTT PTT Ratio Sodium Potassium Chloride Carbon Dioxide Anion Gap BUN Creatinine Est Cr Clr Drug Dosing Est GFR ( Amer) Est GFR (Non-Af Amer) BUN/Creatinine Ratio Glucose POC Glucose 103 H 115 H 139 H Calcium Total Bilirubin AST ALT Alkaline Phosphatase Total Protein Albumin Globulin Albumin/Globulin Ratio 04/30/19 05/01/19 05/01/19 20:17 06:18 06:44 WBC 9.40 RBC 3.91 L Hgb 10.8 L Hct 34.8 L MCV 89.0 MCH 27.6 MCHC 31.0 L RDW Std Deviation 53.7 H RDW Coeff of Atif 16.4 H Plt Count 202 MPV 9.8 Immature Gran % (Auto) 0.3 Neut % (Auto) 74.9 Lymph % (Auto) 14.9 [place] % (Auto) 6.4 Eos % (Auto) 3.2 Baso % (Auto) 0.3 Immature Gran # (Auto) 0.03 H Neut # (Auto) 7.04 H Lymph # (Auto) 1.40 Dent # (Auto) 0.60 H Eos # (Auto) 0.30 Baso # (Auto) 0.03 PT INR APTT PTT Ratio Sodium Potassium Chloride Carbon Dioxide Anion Gap BUN Creatinine Est Cr Clr Drug Dosing Est GFR ( Amer) Est GFR (Non-Af Amer) BUN/Creatinine Ratio Glucose POC Glucose 132 H 119 H Calcium Total Bilirubin AST ALT Alkaline Phosphatase Total Protein Albumin Globulin Albumin/Globulin Ratio 05/01/19 05/01/19 06:44 06:44 WBC RBC Hgb Hct MCV MCH MCHC RDW Std Deviation RDW Coeff of Atif Plt Count MPV Immature Gran % (Auto) Neut % (Auto) Lymph % (Auto) [place] % (Auto) Eos % (Auto) Baso % (Auto) Immature Gran # (Auto) Neut # (Auto) Lymph # (Auto) [place] # (Auto) Eos # (Auto) Baso # (Auto) PT 10.9 INR 1.1 APTT 29.7 PTT Ratio 1.1 Sodium 136 Potassium 4.7 Chloride 102 Carbon Dioxide 25 Anion Gap 9.0 BUN 47 H Creatinine 3.75 H D Est Cr Clr Drug Dosing 25.3 Est GFR ( Amer) 18.2 Est GFR (Non-Af Amer) 15.7 BUN/Creatinine Ratio 12.6 Glucose 120 H POC Glucose Calcium 8.7 Total Bilirubin 0.3 AST 10 L ALT 13 Alkaline Phosphatase 51 Total Protein 7.4 Albumin 3.0 L Globulin 4.4 H Albumin/Globulin Ratio 0.7 L PG Care Time/CCT Total # of Minutes Spent Total Time Spent with Patient: Total time spent is greater than 50% in coordination of care (as documented) at patient's floor/unit and/or counseling patient: (1) CAD (coronary artery disease) Coronary Disease-Associated Artery/Lesion type: [place] artery [place] vs. transplanted heart: [place] heart Associated angina: without angina Qualified Code(s): I25.10 - Atherosclerotic heart disease of [place] coronary artery without angina pectoris
--- NOTE | 2019-05-01 11:14 | Cardiology Progress Note ---
Date of Service May 01, 2019 Assessment & Plan (1) Atrial flutter with rapid ventricular response: He presented in atrial flutter with a rapid heart rate, symptomatically it seems that he was not aware of the rhythm but he did pick it up with his blood pressure monitor. He waited 24 hours to come in because he thought his high heart rate (I think he still believes this) was due to not having clonidine and carvedilol due to some medication foul-up. It is certainly possible that in the past carvedilol has helped control heart rate during atrial flutter, however it is unlikely that it was instrumental in keeping him in sinus rhythm as opposed atrial flutter. I would therefore conclude that he is at risk for recurrence and possibly has had the arrhythmia in the past. As such we need to consider anticoagulation, he was in it for at least 36 hours and therefore is at some risk of stroke. Not being on his carvedilol prior to admission makes it unclear how much rate control he needs in addition to his scheduled carvedilol 12.5 mg twice a day. Perhaps that is sufficient. He has not had further episodes while in the hospital. He does have a relative contraindication to anticoagulation in that he is on dialysis, he additionally is on aspirin and Plavix for his recent stent. The role of anticoagulants in this setting is still controversial, in the absence of his dialysis most cardiologists would consider using one of the newer anticoagulants and clopidogrel with discontinuation of aspirin, however the data for anticoagulant use during atrial fibrillation (or flutter which should be the same) in patients on hemodialysis is somewhat unclear since it does clearly i ncrease the risk of bleeding and especially so if we need to continue platelet inhibitors. Since he is currently not in the arrhythmia and we do not know how much his burden is I think at the moment I would probably not anticoagulate but would continue his current antiplatelet regimen. One option is to implant a loop recorder so we know his burden and can better assess his need for anticoagulation. 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 He is agreeable to a loop recorder implantation, I discussed the indications, procedure, risks and alternatives with him and he understands and agrees to proceed. Consent obtained. We will plan on doing this without sedation. (2) CAD (coronary artery disease): He has coronary disease with a recent stent placement, he is on aspirin and Plavix. There is no evidence that he had ischemia with this presentation (initial troponin not detectable) therefore I would not pursue progression of coronary artery disease. (3) ESRD (end stage renal disease): He is now on dialysis, this complicates our anticoagulation usage but probably does not affect his other medications. (4) Sinus node dysfunction: He has sinus node dysfunction as evidenced by a markedly abnormal sinus node recovery time with termination of atrial flutter (he had an asymptomatic 5-second pause). Some of this is certainly due to his medical regimen, but he needs medications for rate control and he was on carvedilol for his coronary artery disease I believe and he may have mildly reduced left ventricular function. He also received intravenous metoprolol while in atrial flutter. At this point I would probably continue to observe rather than consider pacemaker implantation, he does not have symptoms related to it but we do not know if this will become more of a problem. A loop recorder will also be useful in this regard in addition to determining his atrial fibrillation burden. Subjective He has no cardiovascular complaints today. Physical Exam Physical Exam: Constitutional: Alert, cooperative and in no distress. He is obese. HEENT: Unremarkable Neck: No jugular venous distention, carotid pulses are normal and equal bilaterally without bruits. Pulmonary: Clear to auscultation bilaterally. Cardiac: Regular rhythm with no murmur, gallop or rub. Abdomen: Soft, nontender with normal bowel sounds. Extremities: No edema. Distal pulses intact. Neurologic: No focal findings. Gait is steady. Skin: No rash, ecchymoses or petechiae. Results & Data Vital Signs (Past 12 Hours) Vital Signs Temp Pulse Pulse Resp BP Pulse Ox 05/01/19 10:17 52 L 05/01/19 08:13 36.8 C 56 L 18 121/69 98 05/01/19 03:40 36.7 C 58 L 19 115/65 92 04/30/19 23:17 36.5 C 57 L 18 112/66 95 Laboratory Results Cardiac Enzymes 05/01/19 Range/Units 06:44 AST 10 L (15-37) U/L Coagulation 05/01/19 Range/Units 06:44 PT 10.9 (9.0-12.0) Seconds APTT 29.7 (21.0-31.0) Seconds CBC 05/01/19 Range/Units 06:44 WBC 9.40 (4.8-10.8) K/uL RBC 3.91 L (4.7-6.1) M/uL Hgb 10.8 L (14.0-18.0) g/dL Hct 34.8 L (42-52) % Plt Count 202 (130-400) K/uL Neut # (Auto) 7.04 H (1.4-6.5) K/uL Lymph # (Auto) 1.40 (1.2-3.4) K/uL [place] # (Auto) 0.60 H (0.11-0.59) K/uL Eos # (Auto) 0.30 (0-0.5) K/uL Baso # (Auto) 0.03 (0-0.2) K/uL Comprehensive Metabolic Panel 05/01/19 Range/Units 06:44 Sodium 136 (136-145) mmol/L Potassium 4.7 (3.5-5.1) mmol/L Chloride 102 (98-107) mmol/L Carbon Dioxide 25 (21-32) mmol/L BUN 47 H (7-18) mg/dl Creatinine 3.75 H D (0.6-1.4) mg/dl Glucose 120 H (70-99) mg/dl Calcium 8.7 (8.5-10.1) mg/dl AST 10 L (15-37) U/L ALT 13 (12-78) U/L Alkaline Phosphatase 51 (45-117) U/L Total Protein 7.4 (6.4-8.2) gm/dl Albumin 3.0 L (3.4-5.0) gm/dl Intake and Output 04/30/19 05/01/19 05/01/19 22:59 06:59 14:59 Intake Total 290 / 865 Output Total 400 / 901 Balance 289 / -36 -400 / -36 Intake: Oral 290 / 865 Output: Urine 400 / 900 # Bowel Movements Other: Other Intake Source NPO Weight 120.6 kg Diagnostic Findings Telemetry: Sinus rhythm, heart rate in the 50s. No further atrial arrhythmias. PG Care Time/CCT Total # of Minutes Spent Total Time Spent with Patient: Total time spent is greater than 50% in coordination of care (as documented) at patient's floor/unit and/or counseling patient: (1) CAD (coronary artery disease) Coronary Disease-Associated Artery/Lesion type: [place] artery [place] vs. transplanted heart: sy[place] heart Associated angina: without angina Qualified Code(s): I25.10 - Atherosclerotic heart disease of [place] coronary artery without angina pectoris
[2019-05-01] MEDS ORDERED: INSULIN ASPART 100 UNITS/ML 3 ML PEN SC SCH (12:00)
[2019-05-01] MEDS ORDERED: WATER, STERILE FOR INJ 10 ML VIAL ONE (13:54)
[2019-05-01] MEDS ORDERED: CEFAZOLIN 250 MG/ML 1 GM VIAL ONE (13:55)
[2019-05-01] MEDS ORDERED: LIDOCAINE HCL 1% 20 ML VIAL ONE (13:55)
[2019-05-01] MEDS ORDERED: BACITRACIN OINT 0.9 GM PKT ONE (14:08)
--- NOTE | 2019-05-01 14:22 | Operative Report ---
PG Post Operative Report Pre & Post Diagnosis Operation Date: 05/01/19 14:30 Preoperative diagnosis: Atrial flutter, sinus node dysfunction Postoperative diagnosis: Same I identified the patient and participated in the time-out.: Yes Procedure Operation Date: 05/01/19 14:30 Actual Procedures p Implant Cardiac Event Recorder(Left) - Arya Khoury MD Surgeon Arya Khoury MD Circus Agent None Estimated Blood Loss 2 Findings Consistent with Post-Op Diagnosis Specimens None Anesthesia Type Local Complications none Disposition Accompanied Patient To Recovery: Yes Disposition: Recovery Room Description of Procedure After obtaining informed consent for the procedure, the patient was brought to the laboratory having had nothing by mouth after midnight. The patient was prepped and draped in the standard sterile manner for a loop recorder implantation. An area at the fourth left intercostal space and 1 cm left of the left sternal border was infiltrated with 1% lidocaine local anesthetic and a 0.5 cm incision was made through the skin. Using the loop recorder insertion tool the loop recorder was inserted through the incision at a 45 downward and leftward angle. The incision was closed with a subcutaneous continuous closure of 4-0 Vicryl followed by a running subcuticular skin closure of 4-0 Vicryl. Steri-Strips were applied and bacitracin ointment was placed on the incision. A dressing was applied. I attest to the content of the Intraoperative Record and any orders documented therein. Any exceptions are noted below.
[2019-05-01] MEDS: CLOPIDOGREL BISULFATE 75 MG TAB PO SCH (15:09)
[2019-05-01] MEDS: ASPIRIN 81 MG ECTAB PO SCH (15:09)
[2019-05-01] MEDS: LACTATED RINGER'S 1,000 ML IV SCH (15:10)
[2019-05-01] MEDS: CARBOHYDRATES FOR HYPOGLYCEMIA PO PRN (16:02)
--- NOTE | 2019-05-01 17:14 | Hospitalist Progress Note ---
Date of Service May 01, 2019 Assessment & Plan (1) Atrial flutter with rapid ventricular response: Atrial flutter with RVR/HFpEF/CAD/hypertension- Continue admit to telemetry . Loop recorder placed determine his atrial fibrillation burden. Appreciate cardiology recommendations. Continue carvedilol 12.5 mg p.o. twice daily. Hold hydralazine 100 mg p.o. 3 times daily and amlodipine 10 mg p.o. every morning since blood pressure is at the lower side. Continue aspirin 81 mg daily, continue clopidogrel 75 mg p.o. daily. Full code (2) (HFpEF) heart failure with preserved ejection fraction: See above (3) CAD (coronary artery disease): See above (4) ESRD (end stage renal disease): Consult nephrology Dr. Richard. (5) Depression: Continue sertraline. (6) Diabetes mellitus type 2 in obese: For now, reduce Lantus from 50 to 25 units subcu twice daily. Placed on Accu-Cheks before meals and at bedtime with NovoLog coverage for scale (7) Hypercholesterolemia: Continue atorvastatin 20 mg every evening (8) Hypoglycemia: Patient had hypoglycemia of 34 status post procedure. Will observe for the time being. Hold insulin a.m. Accu-Chek is less than 120. Started diabetic heart healthy low-sodium diet. Present on Admission?: Yes Subjective Patient seen and examined at the bedside. He underwent placement of loop recorder and for the procedure he was n.p.o. It occurred that after the procedure patient became hypoglycemic down to 34 and we decided to keep him in the hospital and observe him until hypoglycemia resolves. Patient does not have any other complaint. Patient denies fever, chills, chest pain, shortness of breath, abdominal pain, frequency, urgency. Review of Systems Review of Systems: All systems reviewed & are unremarkable except as noted in HPI & below Physical Exam Constitutional: well developed and + obese; no acute distress Eyes: no scleral abnormality and no corneal abnormality ENMT: Mouth: no oral mucosal abnormality and oral mucous membranes not dry Neck: normal visual inspection, trachea midline and + thick neck Respiratory: normal respiratory effort Auscultation: lungs clear to auscultation bilaterally Cardiovascular: Rate/Rhythm: regular rate Heart Sounds: normal S1 and normal S2 Vessels: no JVD Extremities: + AV fistula; no edema Gastrointestinal (Abdomen): Inspection/Auscultation: + abdomen distended Percussion/Palpation: abdomen nontender Musculoskeletal: Extremities: no cyanosis and no clubbing Skin: normal turgor; no lesions Neurologic: Motor/Sensory: no tremor and no asterixis Psychiatric: Orientation: alert and oriented x 3 Results & Data Vital Signs (Past 12 Hours) Vital Signs Temp Pulse Pulse Pulse Resp BP Pulse Ox 05/01/19 15:05 36.4 C L 59 L 20 152/69 H 95 05/01/19 14:20 56 L 18 130/68 94 05/01/19 13:30 36.6 C 52 L 18 123/66 92 05/01/19 12:00 36.5 C 62 16 129/60 99 05/01/19 10:17 52 L 05/01/19 08:13 36.8 C 56 L 18 121/69 98 PG Care Time/CCT Total # of Minutes Spent Total Time Spent with Patient: Total time spent is greater than 50% in coordination of care (as documented) at patient's floor/unit and/or counseling patient: (1) CAD (coronary artery disease) Coronary Disease-Associated Artery/Lesion type: [place] artery [place] vs. transplanted heart: rosebud heart Associated angina: without angina Qualified Code(s): I25.10 - Atherosclerotic heart disease of [place] coronary artery without angina pectoris (2) Depression Depression Type: major depressive disorder Major depression recurrence: recurrent Active/Remission status: remission status unspecified Qualified Code(s): F33.9 - Major depressive disorder, recurrent, unspecified
[2019-05-01] MEDS: INSULIN ASPART 100 UNITS/ML 3 ML PEN SC SCH ×2 (17:27→20:10)
[2019-05-01] MEDS: TAMSULOSIN HCL 0.4 MG CAP PO SCH (20:07)
[2019-05-01] MEDS: ATORVASTATIN 20 MG TAB PO SCH (20:08)
[2019-05-02] MEDS ORDERED: CEFAZOLIN 250 MG/ML 1 GM VIAL IV SCH (06:00)
[2019-05-02] MEDS ORDERED: SODIUM CHLORIDE 0.9% 1000ML 1,000 ML IV PRN (07:00)
[2019-05-02 07:30] LABS: Basophils # (auto) 0.02 K/uL (0-0.2); Basophils % (auto) 0.3 %; Eosinophils # (auto) 0.27 K/uL (0-0.5); Eosinophils % (auto) 3.4 %; Hematocrit (blood only) 34.4 % (42-52); Hemoglobin 10.8 g/dL (14.0-18.0); Immature Granulocytes # (auto) 0.02 K/uL (0.00-0.02); Immature Granulocytes % (auto) 0.3 %; Lymphocytes # (auto) 0.98 K/uL (1.2-3.4); Lymphocytes % (auto) 12.5 %; Mean Corpuscular Hemoglobin 27.6 pg (25-34); Mean Corpuscular Hgb Conc 31.4 g/dL (32-36); Mean Platelet Volume 10.5 fL (7.4-10.4); Monocytes # (auto) 0.69 K/uL (0.11-0.59); Monocytes % (auto) 8.8 %; Neutrophils # (auto) 5.87 K/uL (1.4-6.5); Neutrophils % (auto) 74.7 %; Platelet Count 213 K/uL (130-400); RDW Coefficient of Variation 16.3 % (11.5-14.5); RDW Standard Deviation 52.4 fL (36.4-46.3); Red Blood Count 3.91 M/uL (4.7-6.1); White Blood Count 7.85 K/uL (4.8-10.8)
[2019-05-02 07:51] VITALS: O2SAT 96
[2019-05-02 08:01] LABS: Albumin Level 2.9 gm/dl (3.4-5.0); BUN Creatinine Ratio 13.5 (10-20); Calcium 8.7 mg/dl (8.5-10.1); Creatinine Clr Calc Pharmacy 24.3 ml/min; Est GFR (African American) 17.4; Potassium 4.4 mmol/L (3.5-5.1)
[2019-05-02 08:04] LABS: Albumin Globulin Ratio 0.7 (0.9-2); Bilirubin,Total 0.2 mg/dl (0.2-1); Globulin 4.3 gm/dl (2.5-4.0); Total Protein 7.2 gm/dl (6.4-8.2)
[2019-05-02] MEDS: INSULIN ASPART 100 UNITS/ML 3 ML PEN SC SCH ×2 (08:05→13:34)
[2019-05-02] MEDS: INSULIN GLARGINE SOLOSTAR 100 UNITS/ML 3 ML PEN SQ SCH (08:06)
--- NOTE | 2019-05-02 09:32 | Cardiology Progress Note ---
Date of Service May 02, 2019 Assessment & Plan (1) Atrial flutter with rapid ventricular response: He presented in atrial flutter with a rapid heart rate, symptomatically it seems that he was not aware of the rhythm but he did pick it up with his blood pressure monitor. He waited 24 hours to come in because he thought his high heart rate (I think he still believes this) was due to not having clonidine and carvedilol due to some medication foul-up. It is certainly possible that in the past carvedilol has helped control heart rate during atrial flutter, however it is unlikely that it was instrumental in keeping him in sinus rhythm as opposed atrial flutter. I would therefore conclude that he is at risk for recurrence and possibly has had the arrhythmia in the past. As such we need to consider anticoagulation, he was in it for at least 36 hours and therefore is at some risk of stroke. Not being on his carvedilol prior to admission makes it unclear how much rate control he needs in addition to his scheduled carvedilol 12.5 mg twice a day. Perhaps that is sufficient. He has not had further episodes while in the hospital. He does have a relative contraindication to anticoagulation in that he is on dialysis, he additionally is on aspirin and Plavix for his recent stent. The role of anticoagulants in this setting is still controversial, in the absence of his dialysis most cardiologists would consider using one of the newer anticoagulants and clopidogrel with discontinuation of aspirin, however the data for anticoagulant use during atrial fibrillation (or flutter which should be the same) in patients on hemodialysis is somewhat unclear since it does clearly i ncrease the risk of bleeding and especially so if we need to continue platelet inhibitors. Since he is currently not in the arrhythmia and we do not know how much his burden is I think at the moment I would probably not anticoagulate but would continue his current antiplatelet regimen. One option is to implant a loop recorder so we know his burden and can better assess his need for anticoagulation. 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 (2) CAD (coronary artery disease): He has coronary disease with a recent stent placement, he is on aspirin and Plavix. There is no evidence that he had ischemia with this presentation (initial troponin not detectable) therefore I would not pursue progression of coronary artery disease. (3) ESRD (end stage renal disease): He is now on dialysis, this complicates our anticoagulation usage but probably does not affect his other medications. (4) Sinus node dysfunction: He has sinus node dysfunction as evidenced by a markedly abnormal sinus node recovery time with termination of atrial flutter (he had an asymptomatic 5- second pause). Some of this is certainly due to his medical regimen, but he needs medications for rate control and he was on carvedilol for his coronary artery disease I believe and he may have mildly reduced left ventricular functi on. He also received intravenous metoprolol while in atrial flutter. At this point I would probably continue to observe rather than consider pacemaker implantation, he does not have symptoms related to it but we do not know if this will become more of a problem. A loop recorder will also be useful in this regard in addition to determining his atrial fibrillation burden. (5) History of loop recorder: His loop recorder site looks good, there is no bleeding, swelling or erythema. Dressing changed. He is stable for discharge, I have made arrangements for 1 month for loop recorder follow-up and I placed instructions in his discharge paperwork. Subjective He feels well today. No discomfort at his loop recorder site, no palpitations. Physical Exam Physical Exam: Constitutional: Alert, cooperative and in no distress. He is obese. Pulmonary: Clear to auscultation bilaterally. Cardiac: Regular rhythm with no murmur, gallop or rub. Abdomen: Soft, nontender with normal bowel sounds. Extremities: No edema. Skin: No rash, ecchymoses or petechiae. Results & Data Vital Signs (Past 12 Hours) Vital Signs Temp Pulse Pulse Resp BP Pulse Ox 05/02/19 07:50 36.8 C 56 L 18 134/60 96 05/02/19 03:30 36.6 C 57 L 16 137/72 93 05/01/19 23:09 36.4 C L 62 157/73 H 95 Diagnostic Findings Telemetry: Sinus rhythm and sinus bradycardia, no atrial arrhythmias. PG Care Time/CCT Total # of Minutes Spent Total Time Spent with Patient: Total time spent is greater than 50% in coordination of care (as documented) at patient's floor/unit and/or counseling patient: (1) CAD (coronary artery disease) Coronary Disease-Associated Artery/Lesion type: [place] artery [place] vs. transplanted heart: [place] heart Associated angina: without angina Qualified Code(s): I25.10 - Atherosclerotic heart disease of [place] coronary artery without angina pectoris
[2019-05-02 11:34] VITALS: TEMP 98.4
[2019-05-02] MEDS: carvediloL 12.5 MG TAB PO SCH (13:11)
[2019-05-02] MEDS: FUROSEMIDE 80 MG TAB PO SCH (13:11)
[2019-05-02] MEDS: LIDOCAINE 5% 1 PATCH TD SCH (13:11)
[2019-05-02] MEDS: LACTATED RINGER'S 1,000 ML IV SCH (13:12)
[2019-05-02] MEDS: cloNIDine HCL 0.1 MG TAB PO SCH (13:12)
[2019-05-02] MEDS: SERTRALINE HCL 50 MG TABLET PO SCH (13:12)
[2019-05-02 13:39] VITALS: BP 146/75
--- NOTE | 2019-05-02 13:40 | Nephrology Progress Note ---
Date of Service May 02, 2019 Assessment & Plan (1) Atrial flutter with rapid ventricular response: Loop recorder placed. Anticoagulation deferred at this time pending additional monitoring and follow up with cardiology. Remains in sinus myke on assessment this AM. (2) (HFpEF) heart failure with preserved ejection fraction: Volume status remains acceptable. (3) CAD (coronary artery disease): (4) ESRD (end stage renal disease): HD orders entered today and reviewed with dialysis nurse. UF goal 2.5 L. Adequate Qb via TDC. Resume TTS treatment schedule at [facility] post discharge. (5) Diabetes mellitus type 2 in obese: La Ortiz was seen and evaluated during HD today. Orders were discussed with the HD nurse. He was tolerating dialysis well. No complications with loop recorder placement. Review of Systems Review of Systems: All systems reviewed & are unremarkable except as noted in HPI & below Physical Exam Constitutional: well developed and + obese; no acute distress Eyes: no scleral abnormality and no corneal abnormality ENMT: Mouth: no oral mucosal abnormality and oral mucous membranes not dry Neck: normal visual inspection, trachea midline and + thick neck Respiratory: normal respiratory effort Auscultation: lungs clear to auscultation bilaterally Cardiovascular: Rate/Rhythm: regular rate Heart Sounds: normal S1 and normal S2 Vessels: no JVD Extremities: + AV fistula; no edema Gastrointestinal (Abdomen): Inspection/Auscultation: + abdomen distended Percussion/Palpation: abdomen nontender Musculoskeletal: Extremities: no cyanosis and no clubbing Skin: normal turgor; no lesions Neurologic: Motor/Sensory: no tremor and no asterixis Psychiatric: Orientation: alert and oriented x 3 Results & Data Vital Signs (Past 12 Hours) Vital Signs Temp Pulse Pulse Pulse Resp BP BP 05/02/19 12:45 36.9 C 56 L 163/83 H 05/02/19 12:40 61 135/74 05/02/19 12:20 60 141/80 H 05/02/19 12:00 55 L 147/79 H 05/02/19 11:40 60 160/82 H 05/02/19 11:20 56 L 149/82 H 05/02/19 11:00 56 L 142/74 H 05/02/19 10:40 55 L 131/74 05/02/19 10:20 51 L 144/76 H 05/02/19 10:00 54 L 138/74 05/02/19 09:40 54 L 127/71 05/02/19 09:20 52 L 122/70 05/02/19 09:08 36.9 C 55 L 05/02/19 08:00 46 L 05/02/19 07:50 36.8 C 56 L 18 134/60 05/02/19 03:30 36.6 C 57 L 16 137/72 Pulse Ox 05/02/19 12:45 05/02/19 12:40 05/02/19 12:20 05/02/19 12:00 05/02/19 11:40 05/02/19 11:20 05/02/19 11:00 05/02/19 10:40 05/02/19 10:20 05/02/19 10:00 05/02/19 09:40 05/02/19 09:20 05/02/19 09:08 05/02/19 08:00 05/02/19 07:50 96 05/02/19 03:30 93 Laboratory Results Laboratory Results - last 24 hr 05/01/19 05/01/19 05/01/19 15:59 16:01 16:15 WBC RBC Hgb Hct MCV MCH MCHC RDW Std Deviation RDW Coeff of Atif Plt Count MPV Immature Gran % (Auto) Neut % (Auto) Lymph % (Auto) [place] % (Auto) Eos % (Auto) Baso % (Auto) Immature Gran # (Auto) Neut # (Auto) Lymph # (Auto) [place] # (Auto) Eos # (Auto) Baso # (Auto) Sodium Potassium Chloride Carbon Dioxide Anion Gap BUN Creatinine Est Cr Clr Drug Dosing Est GFR ( Amer) Est GFR (Non-Af Amer) BUN/Creatinine Ratio Glucose POC Glucose 34 L* 56 L* 113 H Calcium Total Bilirubin AST ALT Alkaline Phosphatase Total Protein Albumin Globulin Albumin/Globulin Ratio 05/01/19 05/02/19 05/02/19 20:09 06:51 06:51 WBC 7.85 RBC 3.91 L Hgb 10.8 L Hct 34.4 L MCV 88.0 MCH 27.6 MCHC 31.4 L RDW Std Deviation 52.4 H RDW Coeff of Atif 16.3 H Plt Count 213 MPV 10.5 H Immature Gran % (Auto) 0.3 Neut % (Auto) 74.7 Lymph % (Auto) 12.5 [place] % (Auto) 8.8 Eos % (Auto) 3.4 Baso % (Auto) 0.3 Immature Gran # (Auto) 0.02 Neut # (Auto) 5.87 Lymph # (Auto) 0.98 L [place] # (Auto) 0.69 H Eos # (Auto) 0.27 Baso # (Auto) 0.02 Sodium 138 Potassium 4.4 Chloride 105 Carbon Dioxide 26 Anion Gap 7.0 BUN 53 H Creatinine 3.89 H Est Cr Clr Drug Dosing 24.3 Est GFR ( Amer) 17.4 Est GFR (Non-Af Amer) 15.0 BUN/Creatinine Ratio 13.5 Glucose 105 H POC Glucose 125 H Calcium 8.7 Total Bilirubin 0.2 AST 9 L ALT 10 L Alkaline Phosphatase 50 Total Protein 7.2 Albumin 2.9 L Globulin 4.3 H Albumin/Globulin Ratio 0.7 L 05/02/19 05/02/19 07:29 13:29 WBC RBC Hgb Hct MCV MCH MCHC RDW Std Deviation RDW Coeff of Atif Plt Count MPV Immature Gran % (Auto) Neut % (Auto) Lymph % (Auto) [place] % (Auto) Eos % (Auto) Baso % (Auto) Immature Gran # (Auto) Neut # (Auto) Lymph # (Auto) [place] # (Auto) Eos # (Auto) Baso # (Auto) Sodium Potassium Chloride Carbon Dioxide Anion Gap BUN Creatinine Est Cr Clr Drug Dosing Est GFR ( Amer) Est GFR (Non-Af Amer) BUN/Creatinine Ratio Glucose POC Glucose 115 H 74 Calcium Total Bilirubin AST ALT Alkaline Phosphatase Total Protein Albumin Globulin Albumin/Globulin Ratio PG Care Time/CCT Total # of Minutes Spent Total Time Spent with Patient: Total time spent is greater than 50% in coordination of care (as documented) at patient's floor/unit and/or counseling patient: (1) CAD (coronary artery disease) Coronary Disease-Associated Artery/Lesion type: [place] artery [place] vs. transplanted heart: [place] heart Associated angina: without angina Qualified Code(s): I25.10 - Atherosclerotic heart disease of [place] coronary artery without angina pectoris
[2019-05-02 13:47] VITALS: PULSE 65
--- NOTE | 2019-05-02 17:21 | Discharge Summary ---
Date of Service May 02, 2019 Admission HPI Per Admitting Provider The patient is a 68-year-old male with a past medical history including diabetes mellitus, COPD, hypertension, hyperlipidemia, depression, BPH, CAD, CHF, and ESRD on HD, who presents to the emergency department With complaint of leg and knee pain, and increased heart rate. Patient reports he stopped taking clonidine about 2 weeks ago when the pill bottle fell behind a piece of furniture, and he stopped taking the carvedilol about 2 weeks ago also because his prescription ran out off after being increased at the [facility] in [place]. Most recent hospitalizations include the followin/25-01/09/2019; 03/06-03/09; 03/10-03/14/2019; and 03/30-04/05/2019. During his last admission, he had placement of a right-sided permacath, with first HD treatment on 04/03, with second and third treatments complicated by cramps in his legs. Principal Diagnosis Self-resolving episode of atrial flutter -> Loop recorder implanted Discharge Exam Constitutional WD/WN, vitals as above Eyes EOM intact bilaterally; no conjunctival abnormality ENMT external ear and nose normal, oropharynx normal Neck trachea midline, no thyromegaly normal visual inspection Respiratory normal respiratory effort, lungs clear to auscultation no respiratory distress Cardiovascular RRR, no murmur, no edema Chest (Breasts) Chest: + pacemaker (Loop recorder in place. Bandage clean.) Gastrointestinal (Abdomen) Inspection/Auscultation: abdomen normal to inspection; abdomen not distended Musculoskeletal no cyanosis or clubbing, extremities motor strength 5/5 Skin no rashes, warm and dry Neurologic moves all extremities and awake Psychiatric Orientation: alert, oriented to person and cooperative Discharge Data Allergies Allergy/AdvReac Type Severity Reaction Status Date / Time ragweed pollen Allergy Mild CONGESTON Verified 04/03/19 12:38 Consultations 04/29/19 01:40 ED Decision to Admit Stat 04/29/19 03:35 Consult Cardiology Routine Consult Case Management - Discharge Planning Routine Consult Nephrology Routine Procedures Performed Operation Date: 05/01/19 14:30 Actual Procedures p Implant Cardiac Event Recorder(Left) - Arya Khoury MD Ordered Studies 04/29/19 23:53 US venous doppler LE LT Urgent 05/01/19 14:00 CL Cath Imgs for PACS use only Stat Hospital Course (1) Atrial flutter with rapid ventricular response: Atrial flutter with RVR/HFpEF/CAD/hypertension- Loop recorder placed determine his atrial fibrillation burden. - Patient is not a great anticoagulation candidate given his ESRD (cardiology reports that there is evidence that anticoagulation does not prolong life at all given the bleeding risk.) - Follow up with our cardiology or at [place] to determine his burden of atrial flutter as he is asymptomatic. - Continue home meds. (2) (HFpEF) heart failure with preserved ejection fraction: See above (3) CAD (coronary artery disease): See above (4) ESRD (end stage renal disease): Consult nephrology Dr. Richard. (5) Depression: Continue sertraline. (6) Diabetes mellitus type 2 in obese: For now, reduce Lantus from 50 to 25 units subcu twice daily. Placed on Accu-Cheks before meals and at bedtime with NovoLog coverage for scale (7) Hypercholesterolemia: Continue atorvastatin 20 mg every evening (8) Hypoglycemia: Patient had hypoglycemia of 34 status post procedure due to sliding scale and not eating. - No further issues once not NPO. Total Time Total Time Spent Total Time Spent (In Minutes): 35 Discharge Plan Discharge Items Patient Disposition: Home - Self-Care Reason For Visit: ATRIAL FLUTTER WITH RVR Discharge Diagnosis: Atrial flutter Activity: Resume your previous activity Non-emergency contact: Primary Care Provider and Loss Prevention Agent Call non-emergency contact if: you have any medication questions, your symptoms worsen and your pain is worsening Follow-up/Referrals: Monty Hedrick PA-C [Physician Hang Gliding Instructor] - 06/12/18 3:30 pm Shiv Gallardo MD [Primary Care Provider] - Diet: Heart Healthy Addtl Attending Provider Instructions: ACTIVITY RECOMMENDATIONS: * Do not raise affected arm over head for 2 weeks. SPECIAL CARE INSTRUCTIONS: * If bleeding occurs, apply direct pressure to area for 5 minutes. * Call your doctor if you have severe pain, fever, drainage or bleeding at site. * Keep dressing on and dry for 48 hours then remove. * Keep any scheduled doctor's appointment. * Implant Card - hand held device with website information given. FOLLOW UP VISIT: Keep any scheduled doctor appointments. Pending Studies at Discharge: No Stand-Alone Forms: All Def Digital, Smoking Cessation Medications and DC Order Prescriptions: Continued furosemide [Lasix] 40 mg Tablet 80 mg PO BID RF: 0 atorvastatin 40 mg Tablet 20 mg PO PM RF: 0 amlodipine 10 mg Tablet 10 mg PO QAM RF: 0 hydralazine 100 mg Tablet 100 mg PO TID RF: 0 Novolog PenFill U-100 Insulin 100 unit/mL Cartridge 10 unit SUBCUT AC RF: 0 clonidine HCl 0.1 mg Tablet 0.1 mg PO BID RF: 0 tamsulosin 0.4 mg Capsule 0.4 mg PO QAM RF: 0 albuterol sulfate 90 mcg/actuation Hfa Aerosol Inhaler 2 puff INHALATION Q6H PRN (Reason: Shortness Of Breath) RF: 0 sertraline 50 mg Tablet 25 mg PO QAM RF: 0 loratadine 10 mg Tablet 10 mg PO DAILY PRN (Reason: Allergy Symptoms) RF: 0 carvedilol [Coreg] 12.5 mg tablet 12.5 mg PO BID RF: 0 clopidogrel [Plavix] 75 mg Tablet 75 mg PO DAILY RF: 0 aspirin [Aspir-81] 81 mg Tablet,Delayed Release (Dr/Ec) 81 mg PO DAILY RF: 0 Lantus Solostar U-100 Insulin 100 unit/mL (3 mL) insulin pen 50 unit SUBCUT BID RF: 0 Discharge Orders: Discharge Order (Routine); Ordered 05/02/19 Ordered By: Karan Grady Admission Data Admit Date/Time: 04/29/19 02:25 Attending Provider: Karan Grady Admit Provider: Wisam Hercules Primary Care Provider: Shiv Gallardo Other Providers: Arya Khoury ; Tobias Richard ; Jeannette,Home Care ; Karan Grady Other Interventions: Discharge Summary Assessment (RN) Last Done: 05/02/19 13:45 DC Date/Time DO NOT enter until pt leaves facility: 05/02/19 14:15
== END 2019-05-02 14:15 | disposition home or self-care (01) | DRG 260 ==
LOC: ED 23:45 → 2S 04-29 02:25 → SUATTDRO 04-29 02:25 → 2S 04-29 03:20

== ENCOUNTER 2019-12-24 04:54 | Observation (INO) ==
--- NOTE | 2019-12-24 05:33 | Emergency Department Note ---
History of Present Illness General Chief complaint: Chest Pain Stated complaint: CHEST PAIN/SHORT OF BREATH Time Seen by Provider: 12/24/19 05:04 Source: patient Mode of arrival: EMS Limitations: no limitations History of Present Illness Provider complaint: Chest pain, shortness of breath Onset (ago): hour(s) 1 Location: chest Radiation: non-radiation Severity: moderate Pain Consistency: + constant Maximum Pain Intensity: 4 Current Pain Intensity: 4 Quality: + sharp Relieved By: + none Exacerbated By: + movement Associated symptoms: + shortness of breath; no diaphoresis, no fever/chills and no nausea/vomiting Treatments prior to arrival: none This is a 63-year-old male who presents via EMS from home after complaints of acute onset of left-sided chest pain and shortness of breath. Patient states he woke up early to get ready for dialysis and initially felt fine. Patient states when he walked outside to wait for his transportation, he suddenly had sharp left-sided chest pain. No prior similar episodes of chest pain. At that point time he then noticed that he felt slightly short of breath which she attributes to the pain. Patient typically goes to dialysis Monday, , and Monday. Patient denies missing any recent dialysis. States Dr. Jackson is his filter assembler. Patient states he does still make urine, he has not noticed any changes in his urine or stools recently. No recent increased lower extremit y edema. Patient denies any change in his chronic cough, no change in sputum. No recent fevers chills, nasal congestion, rhinorrhea. Patient denies any known sick contacts including any coronavirus positive individual. Patient states he has been taking his medications as prescribed. Patient states he does have a history of atrial fibrillation, and does take aspirin and Plavix. No other anticoagulation. Patient does state the pain is worse with turning to the right, slightly eases with trying to turn to his left. Patient states he cannot lay flat and has not done so for quite some time due to his umbilical hernia. Patient does feel that his breathing is worse with exertion. Pt seen during a time of high acuity and national emergency pandemic while wearing PPE. Home Medications Home Medications Medication Instructions Recorded Confirmed Type albuterol sulfate 2 puff INHALATION Q6H PRN 01/06/19 12/24/19 History atorvastatin 20 mg PO PM 01/06/19 12/24/19 History furosemide [Lasix] 80 mg PO BID 01/06/19 12/24/19 History hydralazine 50 mg PO TID 01/06/19 12/24/19 History insulin aspart U-100 [Novolog 10 unit SUBCUT AC 01/06/19 12/24/19 History PenFill U-100 Insulin] loratadine 10 mg PO DAILY PRN 01/06/19 12/24/19 History sertraline 25 mg PO QAM 01/06/19 12/24/19 History tamsulosin 0.4 mg PO QAM 01/06/19 12/24/19 History Lantus Solostar U-100 Insulin 50 unit SUBCUT BID 03/06/19 12/24/19 History aspirin [Aspir-81] 81 mg PO DAILY 03/06/19 12/24/19 History carvedilol [Coreg] 6.25 mg PO BID 03/06/19 12/24/19 History clopidogrel [Plavix] 75 mg PO DAILY 03/06/19 12/24/19 History ProRenal 1 tab PO QPM 09/26/19 12/24/19 History sevelamer carbonate [Renvela] 800 mg PO TIDM 09/26/19 12/24/19 History amiodarone 200 mg tablet See Rx Instructions .ROUTE 12/18/19 12/24/19 Rx .COMPLEX #45 tab amlodipine 10 mg tablet 5 mg PO QAM tab 12/18/19 12/24/19 History clonidine HCl 0.1 mg tablet 0.1 mg PO .COMPLEX 12/18/19 12/24/19 History Allergies Allergy/AdvReac Type Severity Reaction Status Date / Time ragweed pollen Allergy Mild CONGESTON Verified 12/24/19 05:59 Past Med/Surg History Medical History Anemia CAD (coronary artery disease) s/p stent 2018 CHF exacerbation (Inactive) Chronic kidney disease, stage 4 (severe) CKD (chronic kidney disease) Stage 4 Diabetes Dyslipidemia ESRD (end stage renal disease) HTN (hypertension) (Chronic) Sleep apnea (Chronic) does not use CPAP Surgical History AV fistula History of loop recorder Implanted 05/01/2019 Family History Other Hypertension Social History Smoking Status: Current some day smoker Tobacco Type: Cigarettes Cigarettes Per Day: 10; Second Hand Exposure: No; Hx Alcohol Use: Yes Alcohol type: beer Hx Substance Use: No Preferred Language: Dominican Communication Ability: Effective Jointer Submarine Cable Required: No Beliefs That Will Affect Care: None marital status: Current Living Situation: Alone How many Children do You have: 0 Other Information That Helps Us Care for You: No Feels Safe at Home: Yes Safety Concerns: Feels Safe At This Time Review of Systems See HPI for pertinent positives & negatives. and A total of 10 systems reviewed and were otherwise negative Physical Exam Vital Signs Vital Signs - 24 hr 12/24/19 04:59 12/24/19 05:04 12/24/19 06:34 Temperature 36.4 C L Temperature Source Oral Pulse Rate 70 Pulse Rate [Finger] 60 Pulse Rate from SpO2 Sensor Respiratory Rate 20 Blood Pressure 150/65 H Blood Pressure [Left Arm] 139/67 Blood Pressure Mean 93 Blood Pressure Mean [Left Arm] 91 Pulse Oximetry 94 94 92 Oxygen Delivery Method Nasal Cannula Nasal Cannula Room Air Oxygen Flow Rate 2 2 Sepsis Recent Fever Within 48 Hours No Sepsis New/Unexplained Change in Mental Status No Sepsis Action Taken by Nursing No Action Required 12/24/19 06:45 12/24/19 07:00 12/24/19 07:01 Temperature Temperature Source Pulse Rate 60 56 L 56 L Pulse Rate [Finger] Pulse Rate from SpO2 Sensor 58 L 56 L 56 L Respiratory Rate 25 H 22 20 Blood Pressure 128/62 Blood Pressure [Left Arm] Blood Pressure Mean 88 Blood Pressure Mean [Left Arm] Pulse Oximetry 92 93 93 Oxygen Delivery Method Oxygen Flow Rate Sepsis Recent Fever Within 48 Hours Sepsis New/Unexplained Change in Mental Status Sepsis Action Taken by Nursing 12/24/19 07:30 Temperature Temperature Source Pulse Rate 52 L Pulse Rate [Finger] Pulse Rate from SpO2 Sensor 55 L Respiratory Rate 21 Blood Pressure Blood Pressure [Left Arm] Blood Pressure Mean Blood Pressure Mean [Left Arm] Pulse Oximetry Oxygen Delivery Method Oxygen Flow Rate Sepsis Recent Fever Within 48 Hours Sepsis New/Unexplained Change in Mental Status Sepsis Action Taken by Nursing GENERAL: alert, well appearing, well nourished, no distress, non-toxic, obese EYE EXAM: normal conjunctiva, PERRL and EOM's grossly intact OROPHARYNX: no exudate, no erythema, lips, buccal mucosa, and tongue normal and mucous membranes are moist NECK: supple, no nuchal rigidity, no adenopathy, non-tender LUNGS: Clear to auscultation. Normal chest wall mechanics, no w/r/r HEART: no murmurs, S1 normal and S2 normal ABDOMEN: abdomen soft, non-tender, normo-active bowel sounds, no masses, no rebound or guarding. Large umbilical hernia noted, nontender, reducible. Patient states it does not change in size. BACK: Back is symmetrical on inspection and there is no deformity, no midline tenderness, no CVA tenderness. SKIN: no rashes and no bruising UPPER EXTREMITIES: upper extremities are grossly normal. FROM, nml pulses b/l. LOWER EXTREMITIES: 1+ pitting edema bilaterally, patient states this is chronic. FROM, nml pulses b/l. NEURO EXAM: Normal sensorium, cranial nerves II-XII grossly intact, normal speech, no gross weakness of arms, no gross weakness of legs. Gross sensation intact. Course Course 0622: Updated pt. patient states he is still having left anterior chest pain and does feel short of breath. Discussed all results. Despite patient's history of chronic kidney disease, there is no prior evidence of elevated troponin. In light of his risk factors for coronary artery disease, complaint of chest pain, and new elevated troponin, we discussed additional inpatient evaluation. He was in agreement. 0700: Case discussed with Dr. Hercules. He will pass along to day team for additional evaluation. 0715: Patient states he is still having chest pain. No relief thus far. Administered Medications Atorvastatin Calcium (Lipitor) 20 mg PO PM ANTONY Stop: 01/23/20 20:59 Last Admin: 12/24/19 20:59 Dose: Not Given Documented by: [id number] Carvedilol (Coreg) 6.25 mg PO BID ANTONY Stop: 01/23/20 20:59 Last Admin: 12/24/19 20:58 Dose: 6.25 mg Documented by: [id number] Clonidine HCl (Catapres) 0.1 mg PO QPM ANTONY Stop: 01/23/20 20:59 Last Admin: 12/24/19 20:58 Dose: 0.1 mg Documented by: [id number] Furosemide (Lasix) 80 mg PO SuMoWeFr@0900,1700 ANTONY Stop: 01/23/20 09:44 Last Admin: 12/24/19 09:42 Dose: Not Given Documented by: [id number] Heparin Sodium (Porcine) (Heparin Sodium (Porcine)) 5,000 units SQ Q12 ANTONY Stop: 01/23/20 20:59 Last Admin: 12/24/19 21:18 Dose: 5,000 units Documented by: [id number] Cosigned by: [id number] Hydralazine HCl (Apresoline) 50 mg PO TID ANTONY Stop: 01/23/20 13:59 Last Admin: 12/24/19 20:58 Dose: 50 mg Documented by: [id number] Admin: 12/24/19 11:50 Dose: 50 mg Documented by: [id number] Insulin Aspart (Novolog Flexpen) 0 units SC ACHS ANTONY Stop: 01/23/20 11:29 Last Admin: 12/24/19 21:19 Dose: 1 units Documented by: [id number] Cosigned by: [id number] Admin: 12/24/19 19:20 Dose: Not Given Documented by: [id number] Cosigned by: [id number] Admin: 12/24/19 11:50 Dose: Not Given Documented by: [id number] Cosigned by: [id number] Sevelamer HCl (Renagel) 800 mg PO TIDM ANTONY Stop: 01/23/20 11:59 Last Admin: 12/24/19 20:59 Dose: 800 mg Documented by: [id number] Admin: 12/24/19 11:43 Dose: 800 mg Documented by: [id number] Tamsulosin HCl (Flomax) 0.4 mg PO QAM ANTONY Stop: 01/24/20 08:59 Last Admin: 12/24/19 20:59 Dose: 0.4 mg Documented by: [id number] Vitamin B Complex/Folic Acid (Nephrocaps) 1 cap PO QPM ANTONY Stop: 01/23/20 20:59 Last Admin: 12/24/19 21:18 Dose: 1 cap Documented by: [id number] Discontinued Medications Aspirin (Aspirin) 324 mg PO NOW STA Stop: 12/24/19 06:41 Last Admin: 12/24/19 06:50 Dose: 324 mg Documented by: [id number] Famotidine (Pepcid 20mg Iv Push) 20 mg IV ONE STA Stop: 12/24/19 06:41 Last Admin: 12/24/19 06:51 Dose: 20 mg Documented by: [id number] Fentanyl Citrate (Fentanyl Citrate) 50 mcg IV Q15M PRN PRN Reason: Pain Stop: 01/07/20 07:22 Last Admin: 12/24/19 07:49 Dose: 50 mcg Documented by: [id number] Acetaminophen (Ofirmev) 1,000 mg in 100 mls @ 400 mls/hr IV NOW STA Stop: 12/24/19 06:54 Last Infusion: 12/24/19 08:11 Dose: 0 mls/hr Documented by: [id number] Admin: 12/24/19 06:50 Dose: 400 mls/hr Documented by: [id number] Insulin Glargine (Lantus Solostar Pen) 50 units SQ BID ANTONY Stop: 01/23/20 08:59 Last Admin: 12/24/19 09:42 Dose: Not Given Documented by: [id number] Insulin Human Regular (Novolin R U-100 Per Unit) 8 units SC NOW STA Stop: 12/24/19 07:24 Last Admin: 12/24/19 07:48 Dose: 8 units Documented by: [id number] Cosigned by: [id number] Nitroglycerin (Nitro-Bid 2%) 1 inch EXT NOW ONE Stop: 12/24/19 06:41 Last Admin: 12/24/19 06:50 Dose: 1 inch Documented by: [id number] Medical Decision Making Differential Diagnosis Differential diagnoses includes but is not limited to acute coronary syndrome, myocardial infarction, pericarditis, pulmonary embolus, aortic dissection, pneu monia, pneumothorax, musculoskeletal, shingles, esophageal. Medical Records Attestation: I reviewed the patient's medical records. Home Medications Current Medication List: was personally reviewed by me Laboratory Data Attestation: I reviewed the patient's lab results. Result diagrams: 12/24/19 05:35 12/24/19 05:35 Lab Results 12/24/19 12/24/19 Range/Units 05:35 05:35 WBC 10.18 (4.8-10.8) K/uL RBC 3.56 L (4.7-6.1) M/uL Hgb 10.9 L (14.0-18.0) g/dL Hct 34.3 L (42-52) % MCV 96.3 (80-100) fL MCH 30.6 (25-34) pg MCHC 31.8 L (32-36) g/dL RDW Std Deviation 51.6 H (36.4-46.3) fL RDW Coeff of Atif 14.7 H (11.5-14.5) % Plt Count 197 (130-400) K/uL MPV 10.6 H (7.4-10.4) fL Immature Gran % (Auto) 0.4 % Neut % (Auto) 76.7 % Lymph % (Auto) 10.2 % [place] % (Auto) 9.1 % Eos % (Auto) 3.2 % Baso % (Auto) 0.4 % Neut # (Auto) 7.80 H (1.4-6.5) K/uL Lymph # (Auto) 1.04 L (1.2-3.4) K/uL [place] # (Auto) 0.93 H (0.11-0.59) K/uL Eos # (Auto) 0.33 (0-0.5) K/uL Baso # (Auto) 0.04 (0-0.2) K/uL Immature Gran # (Auto) 0.04 H (0.00-0.02) K/uL Sodium 139 (136-145) mmol/L Potassium 4.1 (3.5-5.1) mmol/L Chloride 103 (98-107) mmol/L Carbon Dioxide 26 (21-32) mmol/L Anion Gap 10.0 (3-11) BUN 73 H (7-18) mg/dl Creatinine 5.91 H* (0.6-1.4) mg/dl Est Cr Clr Drug Dosing 16.5 ml/min Est GFR ( Amer) 10.5 Est GFR (Non-Af Amer) 9.0 BUN/Creatinine Ratio 12.6 (10-20) Glucose 326 H* (70-99) mg/dl Calcium 8.0 L (8.5-10.1) mg/dl Magnesium 2.3 (1.8-2.4) mg/dl Total Bilirubin 0.2 (0.2-1) mg/dl AST 15 (15-37) U/L ALT 20 (12-78) U/L Alkaline Phosphatase 54 (45-117) U/L Troponin I 0.073 H* (0-0.045) ng/ml Total Protein 7.0 (6.4-8.2) gm/dl Albumin 2.7 L (3.4-5.0) gm/dl Globulin 4.3 H (2.5-4.0) gm/dl Albumin/Globulin Ratio 0.6 L (0.9-2) Lipase 327 (73-393) U/L Beta-Hydroxybutyric Acd 1.01 (0.2-2.81) mg/dl Imaging Data My Impression: X-ray: I interpreted the following studies. Chest: A single view study of the chest was reviewed and was negative for focal infiltrate, effusion, or wide mediastinum. Cardiomegaly noted, with slightly increased interstitial markings bilaterally suggestive of possible evolving pulmonary edema. ECG Data Attestation: I personally reviewed and interpreted this ECG as follows: Indication: + chest pain Rate (beats per minute): 71 Rhythm: + normal sinus ECG Intervals/blocks: + First degree AV block, + IVCD and + Normal QT ECG [place]: + Normal ECG ST segments: + Normal ST segments Blood Pressure Blood Pressure Findings: Elevated blood pressure Blood Pressure Disposition: further management by hospitalist CARLOS MANUEL Narrative This is a 69-year-old male who presents the emergency department with complaints of chest pain and trouble breathing this morning that started acutely when he wa s waiting for his ride to dialysis. Patient has no prior history of similar chest pain. Of note review of EMR, while patient has a longstanding history of chronic kidney disease and has had elevated creatinines prior he has never had an abnormal troponin. Patient's troponin was elevated today, EKG did not show any acute changes. Patient was started on Nitropaste, given an aspirin, as well as Pepcid for possible GI involvement. Patient then given additional fentanyl to help with pain. While patient's pain does seem at least in part positional, patient has risk factors for ACS and a known history of coronary artery disease. Patient remained hemodynamically stable throughout. I do not suspect hypertensive urgency/emergency. Patient has not had any recent issues with dialysis. Patient denies any recent increase in GERD symptoms. Patient denied any other recent URI symptoms. Patient does not appear to be short of breath here, no tachypnea, increased work of breathing, or hypoxia, however patient states he continues to feel as though he cannot take a full deep breath. Case discussed with hospitalist at shift change she will pass this along to the day team. Patient remained hemodynamically stable in the emergency room. I did discuss all results with him at bedside, and due to his continued discomfort he was in agreement with plan for additional inpatient evaluation and management. Patient will need to be set up for dialysis, as his elevated creatinine is likely usual for his predialysis levels on days of dialysis. No other acute concerning electrolyte abnormalities. Patient is a known diabetic, patient was found to be hyperglycemic here but no evidence of DKA. Patient was given additional dose of subcu insulin. An order was placed for continuous cardiac monitoring. The monitor shows a rate of _66 with _normal sinus rhythm. Impression & Plan Chest pain, CKD (chronic kidney disease), stage V, Acute dyspnea, Elevated troponin Discharge Plan Visit Data *Final* Discharge Date/Time: 12/24/19 08:21 Chief Complaint: Chest Pain Stated Complaint: CHEST PAIN/SHORT OF BREATH Other Complaint: Shortness of Breath/Dyspnea ED Provider: Whit Villegas Discharge Problem: Chest pain, CKD (chronic kidney disease), stage V, Acute dyspnea, Elevated troponin Patient Disposition: Admitted As Inpatient Discharge Instructions Interventions: ED Discharge Assessment Last Done: 12/24/19 08:21 Discharge Problem: Chest pain Qualifiers: Chest pain type: unspecified Qualified Code(s): R07.9 - Chest pain, unspecified
[2019-12-24 05:46] LABS: Basophils # (auto) 0.04 K/uL (0-0.2); Basophils % (auto) 0.4 %; Eosinophils # (auto) 0.33 K/uL (0-0.5); Eosinophils % (auto) 3.2 %; Hematocrit (blood only) 34.3 % (42-52); Hemoglobin 10.9 g/dL (14.0-18.0); Immature Granulocytes # (auto) 0.04 K/uL (0.00-0.02); Immature Granulocytes % (auto) 0.4 %; Lymphocytes # (auto) 1.04 K/uL (1.2-3.4); Lymphocytes % (auto) 10.2 %; Mean Corpuscular Hemoglobin 30.6 pg (25-34); Mean Corpuscular Hgb Conc 31.8 g/dL (32-36); Mean Corpuscular Volume 96.3 fL (80-100); Mean Platelet Volume 10.6 fL (7.4-10.4); Monocytes # (auto) 0.93 K/uL (0.11-0.59); Monocytes % (auto) 9.1 %; Neutrophils % (auto) 76.7 %; Platelet Count 197 K/uL (130-400); RDW Coefficient of Variation 14.7 % (11.5-14.5); RDW Standard Deviation 51.6 fL (36.4-46.3); Red Blood Count 3.56 M/uL (4.7-6.1); White Blood Count 10.18 K/uL (4.8-10.8)
[2019-12-24 06:17] LABS: Albumin Globulin Ratio 0.6 (0.9-2); Albumin Level 2.7 gm/dl (3.4-5.0); BUN Creatinine Ratio 12.6 (10-20); Bilirubin,Total 0.2 mg/dl (0.2-1); Creatinine Clr Calc Pharmacy 16.5 ml/min; Est GFR (African American) 10.5; Globulin 4.3 gm/dl (2.5-4.0); Magnesium 2.3 mg/dl (1.8-2.4); Potassium 4.1 mmol/L (3.5-5.1); Troponin I 0.073 ng/ml (0-0.045)
[2019-12-24 06:32] LABS: Beta-Hydroxybutyrate 1.01 mg/dl (0.2-2.81)
[2019-12-24] MEDS ORDERED: ASPIRIN CHEW 324 MG PO STA (06:40)
[2019-12-24] MEDS ORDERED: NITROGLYCERIN 2% OINTMENT 30GM TUBE EXT ONE (06:40)
[2019-12-24] MEDS ORDERED: ACETAMINOPHEN 1,000 MG/100 ML VIAL IV STA (06:40)
[2019-12-24] MEDS ORDERED: FAMOTIDINE 20MG/5ML IV PUSH IV STA (06:40)
[2019-12-24] MEDS ORDERED: NovoLIN-R INSULIN PER UNIT CHARGE SC STA (07:23)
[2019-12-24] MEDS ORDERED: fentaNYL citrate 100 MCG/2 ML VIAL IV PRN (07:23)
--- NOTE | 2019-12-24 07:43 | History & Physical Report ---
Date of Service December 24, 2019 Assessment & Plan (1) Chest pain: this pt has non typical chest pain with some positional and pleuritic component, he does have mildly elevated troponin without significant upward trend will continue asa/plavix typically on coreg and norvasc, will continue is on atrovastatin will have resting echo, check ESR as with renal failure could have pericardial effusion (2) Paroxysmal atrial fibrillation: Pt in normal sinus rhythm, last office cardiology visit 12/18/19 started amiodarone due to loop recorder evidence of atrial fibrillation and flutter seen, however pt did not yet cone picker RX, will start amiodarone this stay while pt is on tele (3) ESRD (end stage renal disease): Pt will have dialysis as per his usual schedule he does appear fluid overloaded on exam (4) BPH (benign prostatic hyperplasia): Pt states he still does make urine, but typically does not take lasix on dialysis days (5) Depression: continues on zoloft 25 daily (6) Diabetes mellitus type 2 in obese: will continue on glargine and ssi (7) Anemia: anemia of chronic disease History of Present Illness Primary Care Provider: Shiv Gallardo MD 63-year-old male who presents via EMS from home after complaints of acute onset of left-sided chest pain and shortness of breath. Patient states he woke up early to get ready for dialysis and initially felt fine. Patient states when he walked outside to wait for his transportation, he suddenly had sharp left- sided chest pain. At that point time he then noticed that he felt slightly short of breath which could be from the need for dialysis but he attributes the shortness of breath to the pain. Patient typically goes to dialysis Monday, , and Monday. Patient denies missing any recent dialysis. 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 Patient states he does still make urine, he takes Lasix twice daily on his nondialysis days. No recent increased lower extremity edema. Patient denies any change in his chronic cough, no change in sputum. No recent fevers chills, nasal congestion, rhinorrhea. Patient denies any known sick contacts including any coronavirus positive individual. Patient denies any medication indiscretion. Patient states he does have a history of atrial fibrillation, recently was initiated on amiodarone as an outpatient but has not yet filled this prescription. He does take aspirin and Plavix but no formal anticoagulation. Patient does state the pain is worse with turning to the right, slightly eases with trying to turn to his left. Patient states he cannot lay flat and has not done so for quite some time due to his umbilical hernia. Patient does feel that his breathing is worse with exertion once again is due for dialysis session. The emergency room was recommended he be brought in because he is elevation of troponin. There are no acute EKG changes seen. Allergies Allergy/AdvReac Type Severity Reaction Status Date / Time ragweed pollen Allergy Mild CONGESTON Verified 12/24/19 05:59 Home Medications Home Medications Medication Instructions Recorded Confirmed Type albuterol sulfate 2 puff INHALATION Q6H PRN 01/06/19 12/24/19 History atorvastatin 20 mg PO PM 01/06/19 12/24/19 History furosemide [Lasix] 80 mg PO BID 01/06/19 12/24/19 History hydralazine 50 mg PO TID 01/06/19 12/24/19 History insulin aspart U-100 [Novolog 10 unit SUBCUT AC 01/06/19 12/24/19 History PenFill U-100 Insulin] loratadine 10 mg PO DAILY PRN 01/06/19 12/24/19 History sertraline 25 mg PO QAM 01/06/19 12/24/19 History tamsulosin 0.4 mg PO QAM 01/06/19 12/24/19 History Lantus Solostar U-100 Insulin 50 unit SUBCUT BID 03/06/19 12/24/19 History aspirin [Aspir-81] 81 mg PO DAILY 03/06/19 12/24/19 History carvedilol [Coreg] 6.25 mg PO BID 03/06/19 12/24/19 History clopidogrel [Plavix] 75 mg PO DAILY 03/06/19 12/24/19 History ProRenal 1 tab PO QPM 09/26/19 12/24/19 History sevelamer carbonate [Renvela] 800 mg PO TIDM 09/26/19 12/24/19 History amiodarone 200 mg tablet See Rx Instructions .ROUTE 12/18/19 12/24/19 Rx .COMPLEX #45 tab amlodipine 10 mg tablet 5 mg PO QAM tab 12/18/19 12/24/19 History clonidine HCl 0.1 mg tablet 0.1 mg PO .COMPLEX 12/18/19 12/24/19 History Past Med/Surg History Medical History Anemia CAD (coronary artery disease) s/p stent 2018 CHF exacerbation (Inactive) Chronic kidney disease, stage 4 (severe) CKD (chronic kidney disease) Stage 4 Diabetes Dyslipidemia ESRD (end stage renal disease) HTN (hypertension) (Chronic) Sleep apnea (Chronic) does not use CPAP Surgical History AV fistula History of loop recorder Implanted 05/01/2019 Family History Other Hypertension Social History Smoking Status: Current some day smoker Tobacco Type: Cigarettes Cigarettes Per Day: 10; Second Hand Exposure: No; Hx Alcohol Use: Yes Alcohol type: beer Hx Substance Use: No Preferred Language: Guyanese Communication Ability: Effective Community Development Manager Required: No Beliefs That Will Affect Care: None marital status: Current Living Situation: Alone How many Children do You have: 0 Other Information That Helps Us Care for You: No Feels Safe at Home: Yes Safety Concerns: Feels Safe At This Time Review of Systems Review of Systems: Mild distress and fatigue no headache, blurry or double vision no speech or swallowing issues Reproducible sharp chest pain, without the sensation of pressure or palpitations Dyspnea on exertion and shortness of breath, no cough or wheezes no abdominal pain, nausea or vomiting, patient feels more distended no dysuria, hematuria or frequency no focal joint pain, does have some lower extremity swelling no back pain, CVA tenderness or radicular pain no bruising, bleeding or rashes no focal signs of weakness or numbness or altered sensation no complaints or anxiety or depression. Physical Exam Physical Exam: The patient appeared in mild distress he is morbidly obese with a BMI of 39.2 Vital signs as documented. Head exam is normocephalic atraumatic no scleral icterus Neck is with 2 cm JVD, thyromegaly, or carotid bruits. Lungs are managed at the bases,, Cardiac exam, Rhythm is regular.. No murmurs, rubs or gallops. Abdominal exam reveals normal bowel sounds, soft slightly distended Extremities are nonedematous and both pedal pulses are normal. Neurologic exam is alert and oriented, no focal loss of strength or sensation Skin is without bruises or rashes Psychologically is without concerns for anxiety or depression Results & Data Results & Data ([facility]) Vital Signs (Past 12 Hours) Vital Signs Temp Pulse Pulse Resp BP BP Pulse Ox 12/24/19 06:34 60 20 139/67 92 12/24/19 05:04 94 12/24/19 04:59 97.5 F L 70 150/65 H 94 chest x-ray is focal infiltrates there may has be perhaps very mild fluid overload PG Care Time/CCT Total # of Minutes Spent Total Time Spent with Patient: Total time spent is greater than 50% in coordination of care (as documented) at patient's floor/unit and/or counseling patient: Coding Level of Care Code 40538 Initial Inpt Care Lvl 3 Diagnoses Chest pain R07.9 Chest pain type: unspecified Paroxysmal atrial fibrillation I48.0 ESRD (end stage renal disease) N18.6 BPH (benign prostatic hyperplasia) N40.0 Lower urinary tract symptom presence: symptoms absent Depression F33.9 Active/Remission status: remission status unspecified Depression Type: major depressive disorder Major depression recurrence: recurrent Diabetes mellitus type 2 in obese E11.69; E66.9 Anemia D64.9 Anemia type: unspecified type (1) BPH (benign prostatic hyperplasia) Lower urinary tract symptom presence: symptoms absent Qualified Code(s): N40.0 - Benign prostatic hyperplasia without lower urinary tract symptoms (2) Anemia Anemia type: unspecified type Qualified Code(s): D64.9 - Anemia, unspecified (3) Depression Active/Remission status: remission status unspecified Depression Type: major depressive disorder Major depression recurrence: recurrent Qualified Code(s): F33.9 - Major depressive disorder, recurrent, unspecified (4) Chest pain Chest pain type: unspecified Qualified Code(s): R07.9 - Chest pain, unspecified
--- NOTE | 2019-12-24 08:04 | XRay Report ---
XR chest 1V portable HISTORY: Left-sided chest pain COMPARISON: Chest 04/29/2019. FINDINGS: No pleural effusions. No pneumothorax. A few new density at the left lung base. Otherwise, no focal lung consolidations to suggest pneumonia. No evidence for pulmonary edema. The heart remains mildly enlarged. IMPRESSION: 1. Stable mild cardiomegaly. 2. A few linear densities at the left lung base favor subsegmental atelectasis or scarring. This is s imilar to the prior study. ACT 112: Negative or not required by law. Electronically signed by: Delfin Chan M.D. 12/24/2019 8:02 AM
[2019-12-24] MEDS ORDERED: DEXTROSE 50% 50 ML SYRINGE IV PRN (08:43)
[2019-12-24] MEDS ORDERED: ALBUTEROL HFA 8 GM INHALER INH PRN (08:43)
[2019-12-24] MEDS ORDERED: MoRPHine SULFATE 2 MG/ML CARP IV PRN (08:43)
[2019-12-24] MEDS ORDERED: CARBOHYDRATES FOR HYPOGLYCEMIA PO PRN (08:43)
[2019-12-24] MEDS ORDERED: ACETAMINOPHEN 325 MG TAB PO PRN (08:43)
[2019-12-24] MEDS ORDERED: NITROGLYCERIN SL 0.4 MG/TAB TAB SL PRN (08:43)
[2019-12-24] MEDS ORDERED: GLUCAGON FOR INJ 1 MG VIAL SQ PRN (08:43)
[2019-12-24] MEDS ORDERED: ONDANSETRON INJ 2 MG/ML 2 ML VIAL IV PRN (08:43)
[2019-12-24] MEDS ORDERED: GLUCOSE 40% GEL 15 GM TUBE PO PRN (08:43)
[2019-12-24] MEDS ORDERED: GLUCOSE 10 TABS/TUBE PO PRN (08:43)
[2019-12-24] MEDS ORDERED: INSULIN GLARGINE SOLOSTAR 100 UNITS/ML 3 ML PEN SQ SCH (09:00)
[2019-12-24] MEDS ORDERED: PHARMACY GLYCEMIC MGMT CONSULT PRN (09:32)
[2019-12-24] MEDS: FUROSEMIDE 80 MG TAB PO SCH (09:42)
--- NOTE | 2019-12-24 10:50 | Pharmacy Report ---
Glycemic Control Consultation - Date of Service December 24, 2019 - Scope Scope: Glycemic Pharmacist consulted for glycemic control and to write orders per [facility] inpatient glycemic control protocol. - Objective Weight: 127.4 kg Accuchecks BSG (last 24hrs): 12/24/19 12/24/19 05:35 09:17 Glucose 326 H* POC Glucose 174 H Laboratory Data (last 24hrs): 12/24/19 05:35 Potassium 4.1 Carbon Dioxide 26 Anion Gap 10.0 Creatinine 5.91 H* Est Cr Clr Drug Dosing 16.5 Beta-Hydroxybutyric Acd 1.01 - Recent Pertinent Medications Outpatient Anti-diabetic Regimen: * Lantus 50 units bid, Novolog 10 units AC * A1c = 6.1 % 04/28/19 - ordered for tomorrow Risk Factors for Insulin Resistance: * Diet: yes - Assessment & Plan Assessment & Plan: ASSESSMENT: * 69 year old male admitted with acute onset of left sided chest pain and shortness of breath. ESRD on dialysis ,,Mon. Pharmacy consulted for glycemic management. * Patient known to glycemic service from prior admissions. During last admission, insulin requirements significantly less than outpatient regimen averaging only about ~50 units of insulin per day * Per RN, patient already took Lantus dose this AM, will plan to hold further doses of basal. Will utilize only correctional insulin as I anticipate BSGs to trend down PLAN FOR INPATIENT GLYCEMIC CONTROL: * Basal insulin * Lantus 50 units (LEVEL VIAL MARKER) * Bolus insulin * NovoLog per scale ACHS or Q6hrs while NPO * Goal Range: Low 110 mg/dL - High 140 mg/dL * Correction Factor: 25 mg/dL/unit * Nutritional / Prandial insulin per carb ratio of 1 unit per -- grams CHO consumed * Please note that the plan above was derived based on current level of insulin resistance and hospital stress. These recommendations are appropriate for inpatient admission only. Plan of care upon discharge will need to be reassessed to avoid potential outpatient hypo/hyperglycemia. Thank you.
[2019-12-24] MEDS ORDERED: INSULIN ASPART U SQ SCH (11:30)
[2019-12-24] MEDS: SEVELAMER HCL 800 MG TABLET PO SCH ×2 (11:43→20:59)
[2019-12-24] MEDS: HydrALAZINE TAB 50 MG TAB PO SCH ×2 (11:50→20:58)
[2019-12-24] MEDS: INSULIN ASPART 100 UNITS/ML 3 ML PEN SC SCH ×3 (11:50→21:19)
--- NOTE | 2019-12-24 12:20 | Nephrology Consultation ---
Date of Consultation December 24, 2019 Assessment & Plan (1) ESRD (end stage renal disease): Maintained on a Monday schedule of hemodialysis. Dialyzes via a right brachiocephalic AV fistula. Blood flows have been appropriate, Typically 450. one hundred eighty Optiflux dialyzer. Three potassium bath. Electrolytes are well controlled. Patient weight 127 kg this morning which is approximately 7 kg above his estimated dry weight. I personally reviewed his chest x-ray. He does not have significant interstitial edema on this study. Pulmonary vascular congestion can be appreciated. We will attempt 4-5 L of ultrafiltration over 4 hour treatment today. Thankfully Angel's not requiring any oxygen. I suspect this chest pain may be related to his fluid retention. We discussed the importance of keeping his fluid under control, appropriately treatment of sleep apnea, and a complications this may have further underlying atrial fibrillation and flutter. He is on a precipitator supervisor at this time. Cardiac evaluation is ongoing. A repeat transthoracic echocardiogram has been ordered by the admitting hospitalist. I have communicated dialysis orders were treatment later today to the dialysis nurse and will follow-up at that time. (2) CKD (chronic kidney disease), stage V: Attributed to diabetes and hypertension. Dialysis dependent. Unfortunately does not make a significant amount of urine. Inter dialytic weight gains have been excessive. The importance of of a renal diet and daily fluid restriction was again stressed in detail today. Remains on Meghan Raymond as a phosphate binder. She be on a low phosphorus diet. Her trial can be held during this hospitalization. Medications are appropriate for his level of kidney dysfunction. (3) Anemia: Chronic, stable. No need for additional MAYLIN therapy at this time. History of Present Illness Reason for Consultation: ESRD on HD Requesting Physician: Prince Taylor MD Attending Physician: Prince Taylor MD History of Present Illness Mr. Angel Solorio is a 69-year-old male with end-stage renal disease managed with maintenance hemodialysis in-center at [facility]. His end- stage renal disease attributed to diabetes mellitus and hypertension. He has been on hemodialysis for approximately 2 years. Angel dialyzes on a TTS schedule. He dialyzes for 4 hours with a 180 Optiflux. Estimated dry weight has been 119.5 kg. Inter dialytic weight gain has been excessive. Patient typically has 3-5 L removed with each treatment. His last hemodialysis treatment was on December 20. 4.8 L were removed. The patient left the treatment at 120 kg. Ultrafiltration is often limited by significant cramping during treatment. Patient is listed for transplant through the [facility]. His medical history is notable for coronary artery disease with prior PCI, heart failure with preserved ejection fraction, intermittent atrial fibrillation / atrial flutter with AV node dysfunction, as well obstructive sleep apnea. He has undergone recent evaluation the cardiology clinic for his atrial arrhythmia. A CONWEAVERtronic cataract monitoring device was inserted. Inte rrogation of the device revealed bradycardia to the 40s as well as episodes of pauses lasting approximately 7 seconds. Patient had multiple episodes of atrial fibrillation longest lasting approximately 6 hours. Denies any symptoms associated with this. He was prescribed low dose of amiodarone to take on a daily basis but has not yet obtained the medication through the [facility]. his laboratory studies have been notable for uncontrolled hyperphosphatemia. Otherwise electrolytes have been appropriate. Angel states that after he woke up this morning as he was leaving his house did present to the dialysis unit he developed sharp stabbing pain in the left side of his chest. He has had similar symptoms in the past. Pain was exacerbated by deep inhalation. It lasted for approximately an hour before it resolved. He continues to have some mild tenderness in the area. He also noted associated dyspnea difficulty catching his breath her breathing deeply due to pain. Dyspnea has improved. He is oxygenating well on room air. Allergies Allergy/AdvReac Type Severity Reaction Status Date / Time ragweed pollen Allergy Mild CONGESTON Verified 12/24/19 05:59 Home Medications Home Medications Medication Instructions Recorded Confirmed Type albuterol sulfate 2 puff INHALATION Q6H PRN 01/06/19 12/24/19 History atorvastatin 20 mg PO PM 01/06/19 12/24/19 History furosemide [Lasix] 80 mg PO BID 01/06/19 12/24/19 History hydralazine 50 mg PO TID 01/06/19 12/24/19 History insulin aspart U-100 [Novolog 10 unit SUBCUT AC 01/06/19 12/24/19 History PenFill U-100 Insulin] loratadine 10 mg PO DAILY PRN 01/06/19 12/24/19 History sertraline 25 mg PO QAM 01/06/19 12/24/19 History tamsulosin 0.4 mg PO QAM 01/06/19 12/24/19 History Lantus Solostar U-100 Insulin 50 unit SUBCUT BID 03/06/19 12/24/19 History aspirin [Aspir-81] 81 mg PO DAILY 03/06/19 12/24/19 History carvedilol [Coreg] 6.25 mg PO BID 03/06/19 12/24/19 History clopidogrel [Plavix] 75 mg PO DAILY 03/06/19 12/24/19 History ProRenal 1 tab PO QPM 09/26/19 12/24/19 History sevelamer carbonate [Renvela] 800 mg PO TIDM 09/26/19 12/24/19 History amiodarone 200 mg tablet See Rx Instructions .ROUTE 12/18/19 12/24/19 Rx .COMPLEX #45 tab amlodipine 10 mg tablet 5 mg PO QAM tab 12/18/19 12/24/19 History clonidine HCl 0.1 mg tablet 0.1 mg PO .COMPLEX 12/18/19 12/24/19 History Patient History Medical History Anemia CAD (coronary artery disease) s/p stent 2018 CHF exacerbation (Inactive) Chronic kidney disease, stage 4 (severe) CKD (chronic kidney disease) Stage 4 Diabetes Dyslipidemia ESRD (end stage renal disease) HTN (hypertension) (Chronic) Sleep apnea (Chronic) does not use CPAP Surgical History AV fistula History of loop recorder Implanted 05/01/2019 Family History Other Hypertension Social History Smoking Status: Current some day smoker Tobacco Type: Cigarettes Cigarettes Per Day: 10; Second Hand Exposure: No; Hx Alcohol Use: Yes Alcohol type: beer Hx Substance Use: No Preferred Language: Gibraltarian Communication Ability: Effective 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 Beliefs That Will Affect Care: None marital status: Current Living Situation: Alone How many Children do You have: 0 Other Information That Helps Us Care for You: No Feels Safe at Home: Yes Safety Concerns: Feels Safe At This Time Review of Systems Review of Systems: All systems reviewed & are unremarkable except as noted in HPI & below Constitutional: no weight loss, no weight gain and no problem reported Eyes: no problem reported Ear, Nose, Mouth, Throat: no problem reported Respiratory: no problem reported Cardiovascular: no problem reported Gastrointestinal: no problem reported Musculoskeletal: no problem reported Integumentary: no problem reported Neurologic: no problem reported Psychiatric: no problem reported Endocrine: no problem reported Hematologic / Lymphatic: no problem reported Physical Exam Constitutional: well developed; no acute distress Eyes: no scleral abnormality and no corneal abnormality ENMT: Mouth: no oral mucosal abnormality and oral mucous membranes not dry Neck: normal visual inspection and trachea midline Respiratory: normal respiratory effort Auscultation: lungs clear to auscultation bilaterally and + rales Cardiovascular: Rate/Rhythm: regular rate Heart Sounds: normal S1 and normal S2 Extremities: + edema and + AV fistula Musculoskeletal: Extremities: no cyanosis and no clubbing Skin: normal turgor; no lesions Neurologic: Motor/Sensory: no tremor and no asterixis Psychiatric: Orientation: alert and oriented x 3 Results & Data Vital Signs (Past 12 Hours) Vital Signs Temp Pulse Pulse Resp BP BP Pulse Ox 12/24/19 11:38 36.6 C 49 L 18 120/66 92 12/24/19 08:48 36.5 C 53 L 52 L 18 116/61 92 12/24/19 08:01 48 L 20 92 12/24/19 08:00 48 L 19 116/61 91 12/24/19 07:30 52 L 21 12/24/19 07:01 56 L 20 93 12/24/19 07:00 56 L 22 128/62 93 12/24/19 06:45 60 25 H 92 12/24/19 06:34 60 20 139/67 92 12/24/19 05:04 94 12/24/19 04:59 36.4 C L 70 150/65 H 94 Laboratory Results Laboratory Results - last 24 hr 12/24/19 12/24/19 12/24/19 05:35 05:35 09:17 WBC 10.18 RBC 3.56 L Hgb 10.9 L Hct 34.3 L MCV 96.3 MCH 30.6 MCHC 31.8 L RDW Std Deviation 51.6 H RDW Coeff of Atif 14.7 H Plt Count 197 MPV 10.6 H Immature Gran % (Auto) 0.4 Neut % (Auto) 76.7 Lymph % (Auto) 10.2 [place] % (Auto) 9.1 Eos % (Auto) 3.2 Baso % (Auto) 0.4 Neut # (Auto) 7.80 H Lymph # (Auto) 1.04 L [place] # (Auto) 0.93 H Eos # (Auto) 0.33 Baso # (Auto) 0.04 Immature Gran # (Auto) 0.04 H Sodium 139 Potassium 4.1 Chloride 103 Carbon Dioxide 26 Anion Gap 10.0 BUN 73 H Creatinine 5.91 H* Est Cr Clr Drug Dosing 16.5 Est GFR ( Amer) 10.5 Est GFR (Non-Af Amer) 9.0 BUN/Creatinine Ratio 12.6 Glucose 326 H* POC Glucose 174 H Calcium 8.0 L Magnesium 2.3 Total Bilirubin 0.2 AST 15 ALT 20 Alkaline Phosphatase 54 Troponin I 0.073 H* Total Protein 7.0 Albumin 2.7 L Globulin 4.3 H Albumin/Globulin Ratio 0.6 L Lipase 327 Beta-Hydroxybutyric Acd 1.01 12/24/19 12/24/19 12/24/19 09:54 10:50 11:29 WBC RBC Hgb Hct MCV MCH MCHC RDW Std Deviation RDW Coeff of Atif Plt Count MPV Immature Gran % (Auto) Neut % (Auto) Lymph % (Auto) [place] % (Auto) Eos % (Auto) Baso % (Auto) Neut # (Auto) Lymph # (Auto) [place] # (Auto) Eos # (Auto) Baso # (Auto) Immature Gran # (Auto) Sodium Potassium Chloride Carbon Dioxide Anion Gap BUN Creatinine Est Cr Clr Drug Dosing Est GFR ( Amer) Est GFR (Non-Af Amer) BUN/Creatinine Ratio Glucose POC Glucose 137 H Calcium Magnesium Total Bilirubin AST ALT Alkaline Phosphatase Troponin I 0.124 H* 0.122 H* Total Protein Albumin Globulin Albumin/Globulin Ratio Lipase Beta-Hydroxybutyric Acd Diagnostic Findings CXR personally reviewed today. PG Care Time/CCT Total # of Minutes Spent Total Time Spent with Patient: Total time spent is greater than 50% in coordination of care (as documented) at patient's floor/unit and/or counseling patient: Coding Level of Care Code 39737 Inpt Consult Level 5 Diagnoses ESRD (end stage renal disease) N18.6 CKD (chronic kidney disease), stage V N18.5 Anemia D64.9 Anemia type: unspecified type (1) Anemia Anemia type: unspecified type Qualified Code(s): D64.9 - Anemia, unspecified
--- NOTE | 2019-12-24 18:35 | XCELERA ---
[id number]
[2019-12-24] MEDS: cloNIDine HCL 0.1 MG TAB PO SCH (20:58)
[2019-12-24] MEDS: carvediloL 6.25 MG TAB PO SCH (20:58)
[2019-12-24] MEDS: TAMSULOSIN HCL 0.4 MG CAP PO SCH (20:59)
[2019-12-24] MEDS: ATORVASTATIN 20 MG TAB PO SCH (20:59)
[2019-12-24] MEDS: NEPHROCAPS PO SCH (21:18)
[2019-12-24] MEDS: HEPARIN SOD 5,000 UNIT/0.5 ML VIAL SQ SCH (21:18)
[2019-12-25 07:25] LABS: BUN Creatinine Ratio 8.7 (10-20); Calcium 8.8 mg/dl (8.5-10.1); Creatinine Clr Calc Pharmacy 21.8 ml/min; Est GFR (African American) 15.1; Potassium 4.2 mmol/L (3.5-5.1)
[2019-12-25] MEDS: SEVELAMER HCL 800 MG TABLET PO SCH ×3 (08:36→17:13)
[2019-12-25] MEDS: cloNIDine HCL 0.1 MG TAB PO SCH ×2 (08:36→20:09)
[2019-12-25] MEDS: FUROSEMIDE 80 MG TAB PO SCH ×2 (08:37→17:13)
[2019-12-25] MEDS: CLOPIDOGREL BISULFATE 75 MG TAB PO SCH (08:37)
[2019-12-25] MEDS: HydrALAZINE TAB 50 MG TAB PO SCH ×3 (08:37→20:08)
[2019-12-25] MEDS: carvediloL 6.25 MG TAB PO SCH ×2 (08:37→20:08)
[2019-12-25] MEDS: SERTRALINE HCL 50 MG TABLET PO SCH (08:38)
[2019-12-25] MEDS: ASPIRIN 81 MG ECTAB PO SCH (08:38)
[2019-12-25] MEDS: AMLODIPINE BESYLATE 5 MG TAB PO SCH (08:38)
[2019-12-25] MEDS: AMIODARONE 200 MG TAB PO SCH (08:38)
[2019-12-25] MEDS: INSULIN GLARGINE SOLOSTAR 100 UNITS/ML 3 ML PEN SQ SCH (08:51)
[2019-12-25] MEDS: INSULIN ASPART 100 UNITS/ML 3 ML PEN SC SCH ×4 (08:51→20:09)
[2019-12-25] MEDS: TAMSULOSIN HCL 0.4 MG CAP PO SCH (09:15)
[2019-12-25] MEDS: HEPARIN SOD 5,000 UNIT/0.5 ML VIAL SQ SCH ×2 (09:15→20:09)
--- NOTE | 2019-12-25 09:27 | Nephrology Progress Note ---
Date of Service December 25, 2019 Assessment & Plan (1) ESRD (end stage renal disease): BP and volume status reasonable. Remains slightly above EDW. Breathing comfortably. Tolerated UF 4 L yesterday. Clearance was appropriate. Electrolytes controlled. No need for HD today. Plan next treatment tomorrow per TTS schedule. Brachiocephalic AV fistula with good thrill and bruit. (2) CKD (chronic kidney disease), stage V: Attributed to diabetes and hypertension. Dialysis dependent. Unfortunately does not make a significant amount of urine. Inter dialytic weight gains have been excessive. The importance of of a renal diet and daily fluid restriction was again stressed in detail today. Remains on Renvela as a phosphate binder. She be on a low phosphorus diet. Calcitriol can be held during this hospitalization. Medications are appropriate for his level of kidney dysfunction. (3) Anemia: Chronic, stable. No need for additional MAYLIN therapy at this time. Admission and Anticipated Discharge Date Admission Date: December 24, 2019 Subjective No acute events overnight. Angel feels well. Tolerated HD yesterday without complications, net UF 4 L. Good clearance. Breathing comfortably this AM. No chest pain at this time. TTE reviewed this AM. Review of Systems Review of Systems: All systems reviewed & are unremarkable except as noted in HPI & below Physical Exam Constitutional: well developed; no acute distress Eyes: no scleral abnormality and no corneal abnormality ENMT: Mouth: no oral mucosal abnormality and oral mucous membranes not dry Neck: normal visual inspection and trachea midline Respiratory: normal respiratory effort Auscultation: lungs clear to auscultation bilaterally and + rales Cardiovascular: Rate/Rhythm: regular rate Heart Sounds: normal S1 and normal S2 Extremities: + edema and + AV fistula Musculoskeletal: Extremities: no cyanosis and no clubbing Skin: normal turgor; no lesions Neurologic: Motor/Sensory: no tremor and no asterixis Psychiatric: Orientation: alert and oriented x 3 Results & Data ([facility]) Vital Signs (Past 12 Hours) Vital Signs Temp Pulse Pulse Pulse Resp BP Pulse Ox 12/25/19 07:38 37.2 C 54 L 18 112/61 95 12/25/19 04:00 36.8 C 60 121/66 91 12/25/19 00:00 60 12/24/19 23:47 37.1 C 60 18 145/69 H 93 Laboratory Results Laboratory Results - last 24 hr 12/24/19 12/24/19 12/24/19 09:54 10:50 11:29 Sodium Potassium Chloride Carbon Dioxide Anion Gap BUN Creatinine Est Cr Clr Drug Dosing Est GFR ( Amer) Est GFR (Non-Af Amer) BUN/Creatinine Ratio Glucose POC Glucose 137 H Estimat Average Glucose Hemoglobin A1c Calcium Troponin I 0.124 H* 0.122 H* 12/24/19 12/24/19 12/25/19 20:40 20:49 06:15 Sodium 138 Potassium 4.2 Chloride 103 Carbon Dioxide 28 Anion Gap 7.0 BUN 38 H Creatinine 4.38 H D Est Cr Clr Drug Dosing 21.8 Est GFR ( Amer) 15.1 Est GFR (Non-Af Amer) 13.0 BUN/Creatinine Ratio 8.7 L Glucose 154 H POC Glucose 145 H Estimat Average Glucose Hemoglobin A1c Calcium 8.8 Troponin I 0.089 H* 12/25/19 12/25/19 06:15 07:32 Sodium Potassium Chloride Carbon Dioxide Anion Gap BUN Creatinine Est Cr Clr Drug Dosing Est GFR ( Amer) Est GFR (Non-Af Amer) BUN/Creatinine Ratio Glucose POC Glucose 147 H Estimat Average Glucose Pending Hemoglobin A1c Pending Calcium Troponin I PG Care Time/CCT Total # of Minutes Spent Total Time Spent with Patient: Total time spent is greater than 50% in coordination of care (as documented) at patient's floor/unit and/or counseling patient: Coding Level of Care Code 84522 Subseq Hosp Care Lvl 3 Diagnoses ESRD (end stage renal disease) N18.6 CKD (chronic kidney disease), stage V N18.5 Anemia D64.9 Anemia type: unspecified type (1) Anemia Anemia type: unspecified type Qualified Code(s): D64.9 - Anemia, unspecified
[2019-12-25 09:28] LABS: Estimated Average Glucose 154 mg/dl
--- NOTE | 2019-12-25 13:40 | Pharmacy Report ---
Pharmacy Glycemic Short Note 2 - Date of Service December 25, 2019 - Glycemic Short BSG Results (Last 24 hours): 12/24/19 12/25/19 12/25/19 20:40 06:15 07:32 Glucose 154 H POC Glucose 145 H 147 H 12/25/19 12:28 Glucose POC Glucose 134 H ASSESSMENT: 12/24: * Patient received total of 51 units of insulin yesterday, almost of of which were basal insulin (had taken basal ASBESTOS REMOVER) * Will plan to split insulin in a more 50/50 split between basal and bolus to hopefully avoid any low BSGs * Will initiate Lantus at 30 units daily and add novolog with stess of 2 dosing PLAN FOR INPATIENT GLYCEMIC CONTROL: * Basal insulin * Lantus 30 units daily * Bolus insulin * NovoLog per scale ACHS or Q6hrs while NPO * Goal Range: Low 110 mg/dL - High 140 mg/dL * Correction Factor: 30 mg/dL/unit * Nutritional / Prandial insulin per carb ratio of 1 unit per 10 grams CHO consumed PLAN FOR DISCHARGE: * A1c of 7% on admission - Patient's insulin regimen at home heavily basal michelle ghvlad. Would be reasonable to continue home diabetic regimen as long as patient not reporting low BSGs
--- NOTE | 2019-12-25 18:17 | Hospitalist Progress Note ---
Date of Service December 25, 2019 Assessment & Plan (1) Chest pain: Patient had a significant dyspneic response to stress testing with profound EKG changes post procedure will be set up for heart catheterization in the near future will continue asa/plavix typically on coreg and norvasc, will continue is on atrovastatin ESR is low essentially ruling out infectious endocarditis (2) Paroxysmal atrial fibrillation: Pt in normal sinus rhythm, last office cardiology visit 12/18/19 started amiodarone due to loop recorder evidence of atrial fibrillation and flutter seen, however pt did not yet pickle sorter RX, will start amiodarone this stay while pt is on tele will be some discussion whether patient will need anticoagulation prior to going home (3) ESRD (end stage renal disease): Pt will have dialysis as per his usual schedule he remains euvolemic to examination (4) BPH (benign prostatic hyperplasia): Pt states he still does make urine, but typically does not take lasix on dialysis days (5) Depression: continues on zoloft 25 daily, patient was tearful after discussion of his heart catheterization (6) Diabetes mellitus type 2 in obese: Controlled with glargine and ssi (7) Anemia: anemia of chronic disease likely associated with his renal dysfunction Patient remains on heparin subcu for DVT prevention Admission and Anticipated Discharge Date Admission Date: December 24, 2019 Subjective No acute events overnight. Angel feels well. Tolerated HD yesterday without complications, net UF 4 L. Good clearance. Breathing comfortably this AM. No chest pain at this time. TTE reviewed this AM. Without significant changes however the patient underwent a treadmill stress test and had a significant dyspneic response with profound EKG changes prompting concern that his symptoms and troponin are cardiogenic in nature and will be set up for coordinate a heart catheterization with nephrology timing post procedure for dialysis Review of Systems Review of Systems: Mild distress and fatigue no headache, blurry or double vision no speech or swallowing issues Reproducible sharp chest pain, without the sensation of pressure or palpitations Marked dyspnea during stress testing associated with reproducible chest pain no abdominal pain, nausea or vomiting, patient feels more distended no dysuria, hematuria or frequency no focal joint pain, does have some lower extremity swelling no back pain, CVA tenderness or radicular pain no bruising, bleeding or rashes no focal signs of weakness or numbness or altered sensation no complaints or anxiety or depression. Physical Exam Physical Exam: The patient appeared in mild distress he is morbidly obese with a BMI of 39.2 Vital signs as documented. Head exam is normocephalic atraumatic no scleral icterus Neck is with 2 cm JVD, thyromegaly, or carotid bruits. Lungs are diminished at the bases,, Cardiac exam, Rhythm is regular.. No murmurs, rubs or gallops. Abdominal exam reveals normal bowel sounds, soft slightly distended Extremities are nonedematous and both pedal pulses are normal. Neurologic exam is alert and oriented, no focal loss of strength or sensation Skin is without bruises or rashes Psychologically is without concerns for anxiety or depression Results & Data Results & Data ([facility]) Vital Signs (Past 12 Hours) Vital Signs Temp Pulse Pulse Pulse Resp BP Pulse Ox 12/25/19 15:41 97.9 F 57 L 18 138/74 92 12/25/19 15:06 57 L 12/25/19 12:35 97.9 F 63 18 136/67 94 12/25/19 07:38 99.0 F 54 L 18 112/61 95 PG Care Time/CCT Total # of Minutes Spent Total Time Spent with Patient: Total time spent is greater than 50% in coordination of care (as documented) at patient's floor/unit and/or counseling patient: Coding Level of Care Code 60357 Subseq Hosp Care Lvl 3 Diagnoses Chest pain R07.9 Chest pain type: unspecified Paroxysmal atrial fibrillation I48.0 ESRD (end stage renal disease) N18.6 BPH (benign prostatic hyperplasia) N40.0 Lower urinary tract symptom presence: symptoms absent Depression F33.9 Depression Type: major depressive disorder Major depression recurrence: recurrent Active/Remission status: remission status unspecified Diabetes mellitus type 2 in obese E11.69; E66.9 Anemia D64.9 Anemia type: unspecified type (1) Chest pain Chest pain type: unspecified Qualified Code(s): R07.9 - Chest pain, unspecified (2) BPH (benign prostatic hyperplasia) Lower urinary tract symptom presence: symptoms absent Qualified Code(s): N40.0 - Benign prostatic hyperplasia without lower urinary tract symptoms (3) Depression Depression Type: major depressive disorder Major depression recurrence: recurrent Active/Remission status: remission status unspecified Qualified Code(s): F33.9 - Major depressive disorder, recurrent, unspecified (4) Anemia Anemia type: unspecified type Qualified Code(s): D64.9 - Anemia, unspecified
--- NOTE | 2019-12-25 19:17 | Cardiology Consultation ---
Date of Consultation December 25, 2019 Assessment & Plan (1) CAD (coronary artery disease): (2) S/P coronary artery stent placement: (3) Abnormal stress ECG: (4) Elevated troponin: (5) Exertional angina: (6) Paroxysmal atrial fibrillation: (7) Sinus node dysfunction: (8) HTN (hypertension): (9) Hypercholesterolemia: ASSESSMENT/PLAN: 1. Angina/ abnormal stress ECG : Very poor exercise tolerance and abnormal stress ECG that persisted for several minutes into recovery with symptoms consistent with angina in a patient with documented CAD. Recommend cardiac catheterization. Risks and benefits discussed with him. Cardiac catheterization report requested and obtained from [facility]. Continue dual anti-platelet therapy. Continue statin. Continue beta-ginger. 2. CAD s/p LAD PCI: Reported calcifications within [place] vessels. Cardiac catheterization above due to angina and abnormal stress ECG. Continue medical therapy as well. 3. Elevated troponin: Nondiagnostic for CO but given other findings, concerning for ischemic heart disease. Plan as above. 4. Paroxysmal AFib: On amiodarone as per electrophysiology. Deemed to be a poor anticoagulation candidate by electrophysiology. Followed by Dr. Khoury. 5. Sinus node dysfunction: Had conversion pauses. On amiodarone to help avoid atrial arrhythmia and therefore conversion pauses. Follow with EP. 6. Hypertension: Blood pressure mostly normotensive today. Continue current regimen. 7. Dyslipidemia: Continue statin therapy. Consider high-intensity statin therapy. 8. CKD on dialysis: Timing of cardiac catheterization discussed with Dr. Richard of Nephrology. He plans on performing dialysis tomorrow and therefore will pursue cardiac catheterization in the morning as the cardiac catheterization is not emergent. 9. Disposition: Cardiology will continue to follow. Plan of care discussed with Dr. Taylor of the primary hospitalist service. Highly complex medical issues. Thank you for allowing me to participate in the care of your patient. Please call for any other questions or concerns. Sincerely, Samuel Jon M.D. History of Present Illness Attending Physician: Prince Taylor MD History of Present Illness Mr. Solorio is a pleasant 69-year-old gentleman with history significant for CAD s/p prox LAD PCI (02/21/19), paroxysmal atrial fibrillation, type 2 diabetes,, ESRD on hemodialysis, dyslipidemia, hypertension, and sleep apnea. His primary kraft digester operator is Dr. Khoury. Dr. Khoury has followed him for atrial fibrillation and due to sinus node dysfunction with asymptomatic 5 second pause when converting to sinus rhythm in the past, the decision was made to treat him with anti rhythmic therapy in the form of amiodarone 100 mg daily however he did not start taking this as an outpatient when prescribed on 12/18/2019. He has been deemed to be a poor candidate for anticoagulation therapy. He has had the following studies/procedures: 1. Cardiac catheterization 02/21/2019 [facility]: Proximal LAD underwent PCI with 3 x 18 mm Xience Leticia, post dilated with 3 x 15 NC with approximately 10% residual stenosis thought to be due to extensive calcification within the [place] arteries. 2. Loop recorder 05/01/2019 [facility] (Dr. Khoury) 3. Echo 12/24/2019: Normal LV size, wall motion. EF 55-60%. Sclerotic aortic valve without stenosis. Mild MR. Normal RVSP. He was hospitalized on 12/24/2019 with chest discomfort. The chest discomfort is left lateral sharp pain that he noted when walking outside to go to dialysis. He also had dyspnea with exertion. While here, he has been noted to have low level troponin elevation with a peak troponin 0.124. He is a poor historian in regards to his symptoms at times. He states that he has had this left lateral chest pain continuously although it is much better than presentation. He also mentioned that he had a different chest discomfort substernally described as a burning sensation in the past that resolved after PCI in 2019. He also has had chronic dyspnea with exertion for approximately 1 year, once again improved following PCI but worsening more rece ntly. He was ordered a stress echo by the primary hospitalist service and during this, he had difficulty walking on the treadmill during the first stage of Sean protocol. He abruptly stopped during the first stage, less than 3 minutes, due to dyspnea with exertion. He was unable to lay down to undergo his stress echo images and therefore stress echo images were done in a seated position. Alth ough the stress echo images did not demonstrate any significant wall motion abnormalities on preliminary review, it was difficult to compare them to baseline images given the manner in which they were acquired. He did not come close to meeting his target heart rate. He then complained of substernal chest burning, stating that it was similar to prior to his PCI. He acknowledges that he sometimes gets this with exertion, especially inclines. On ECG, he was noted to have up to [address] depression in leads II, III, aVF, with [address] depression in V5 and V6. These ST abnormalities persisted for greater 10 minutes into recovery. His chest discomfort resolved while nursing staff was getting a nitroglycerin tablet. His abnormal stress testing prompted cardiology consultation. He was seen in his room earlier this afternoon and had no further angina but continued to have a mild left lateral chest discomfort which had been tender to palpation during the stress test. He denies shortness of breath at rest. He reports having syncope approximately 2 weeks ago while hypoglycemic but otherwise denies syncope or near-syncope. He has occasional lower extremity swelling but takes diuretics and undergoes dialysis. He denies melena, hematochezia, hematuria, or other bleeding. He states that he is compliant with medications. Review of systems: As above. Review of systems otherwise negative/unremarkable. Family history: Mother and father had hypertension. No known premature CAD. Social history: Quit smoking in 2019, previously smoking pipes and cigars. One beer per day. No drugs. He lives alone. . No children. 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 Unaccompanied in his hospital room. Allergies Allergy/AdvReac Type Severity Reaction Status Date / Time ragweed pollen Allergy Mild [place] Verified 12/24/19 05:59 Home Medications Home Medications Medication Instructions Recorded Confirmed Type albuterol sulfate 2 puff INHALATION Q6H PRN 01/06/19 12/24/19 History atorvastatin 20 mg PO PM 01/06/19 12/24/19 History furosemide [Lasix] 80 mg PO BID 01/06/19 12/24/19 History hydralazine 50 mg PO TID 01/06/19 12/24/19 History insulin aspart U-100 [Novolog 10 unit SUBCUT AC 01/06/19 12/24/19 History PenFill U-100 Insulin] loratadine 10 mg PO DAILY PRN 01/06/19 12/24/19 History sertraline 25 mg PO QAM 01/06/19 12/24/19 History tamsulosin 0.4 mg PO QAM 01/06/19 12/24/19 History Lantus Solostar U-100 Insulin 50 unit SUBCUT BID 03/06/19 12/24/19 History aspirin [Aspir-81] 81 mg PO DAILY 03/06/19 12/24/19 History carvedilol [Coreg] 6.25 mg PO BID 03/06/19 12/24/19 History clopidogrel [Plavix] 75 mg PO DAILY 03/06/19 12/24/19 History ProRenal 1 tab PO QPM 09/26/19 12/24/19 History sevelamer carbonate [Renvela] 800 mg PO TIDM 09/26/19 12/24/19 History amiodarone 200 mg tablet See Rx Instructions .ROUTE 12/18/19 12/24/19 Rx .COMPLEX #45 tab amlodipine 10 mg tablet 5 mg PO QAM tab 12/18/19 12/24/19 History clonidine HCl 0.1 mg tablet 0.1 mg PO .COMPLEX 12/18/19 12/24/19 History Patient History Medical History Anemia CAD (coronary artery disease) s/p stent 2018 CHF exacerbation (Inactive) Chronic kidney disease, stage 4 (severe) CKD (chronic kidney disease) Stage 4 Diabetes Dyslipidemia ESRD (end stage renal disease) HTN (hypertension) (Chronic) Sleep apnea (Chronic) does not use CPAP Surgical History AV fistula History of loop recorder Implanted 05/01/2019 Family History Other Hypertension Social History Smoking Status: Current some day smoker Tobacco Type: Cigarettes Cigarettes Per Day: 10; Second Hand Exposure: No; Hx Alcohol Use: Yes Alcohol type: beer Hx Substance Use: No Preferred Language: Vietnamese Communication Ability: Effective Assembler Erector Required: No Beliefs That Will Affect Care: None marital status: Current Living Situation: Alone How many Children do You have: 0 Other Information That Helps Us Care for You: No Feels Safe at Home: Yes Safety Concerns: Feels Safe At This Time Physical Exam Physical Exam: Gen.: No acute distress. Alert and oriented. HEENT: Anicteric sclera. Neck: No JVD but thick neck. No bruits. Normal carotid upstrokes bilaterally. Cardiac: PMI was nonpalpable. No ventricular heave. Regular rate and rhythm. Normal S1-S2. 1/6 systolic murmur. No rubs, or gallops. Pulmonary: Clear to auscultation bilaterally without wheezes, rales, or rhonchi. Abdomen: Obese. Soft, nontender, nondistended, with normoactive bowel sounds. No bruits noted. Extremities: Palpable thrill and audible bruit involving the right upper extremity AV fistula. 2+ left radial pulse. 2+ posterior tibialis pulses bilaterally. 1+ right pedal edema. Trace left lower extremity pedal edema. No cyanosis. Psychiatric: Affect appears appropriate. Results & Data ([facility]) Vital Signs (Past 12 Hours) Vital Signs Temp Pulse Pulse Pulse Resp BP Pulse Ox 12/25/19 15:41 36.6 C 57 L 18 138/74 92 12/25/19 15:06 57 L 12/25/19 12:35 36.6 C 63 18 136/67 94 12/25/19 07:38 37.2 C 54 L 18 112/61 95 Laboratory Results Laboratory Results - last 24 hr 12/24/19 12/24/19 12/25/19 20:40 20:49 06:15 Sodium 138 Potassium 4.2 Chloride 103 Carbon Dioxide 28 Anion Gap 7.0 BUN 38 H Creatinine 4.38 H D Est Cr Clr Drug Dosing 21.8 Est GFR ( Amer) 15.1 Est GFR (Non-Af Amer) 13.0 BUN/Creatinine Ratio 8.7 L Glucose 154 H POC Glucose 145 H Estimat Average Glucose Hemoglobin A1c Calcium 8.8 Troponin I 0.089 H* 12/25/19 12/25/19 12/25/19 06:15 07:32 12:28 Sodium Potassium Chloride Carbon Dioxide Anion Gap BUN Creatinine Est Cr Clr Drug Dosing Est GFR ( Amer) Est GFR (Non-Af Amer) BUN/Creatinine Ratio Glucose POC Glucose 147 H 134 H Estimat Average Glucose 154 Hemoglobin A1c 7.0 H Calcium Troponin I 12/25/19 16:08 Sodium Potassium Chloride Carbon Dioxide Anion Gap BUN Creatinine Est Cr Clr Drug Dosing Est GFR ( Amer) Est GFR (Non-Af Amer) BUN/Creatinine Ratio Glucose POC Glucose 124 H Estimat Average Glucose Hemoglobin A1c Calcium Troponin I Diagnostic Findings Telemetry personally reviewed: Sinus rhythm. Echocardiogram reviewed as noted above. Cardiac catheterization report requested from [facility], obtained and reviewed as noted above. Stress echo results reviewed as noted above in the HPI. ECG personally reviewed: ECG 12/24/2019: Sinus rhythm with first-degree AV block at 71 bpm. IVC be. ECG 12/25/2019: Sinus bradycardia first-degree AV block. 54 bpm. IVCD. Chest x-ray 12/24/2019: Stable mild cardiomegaly. Medications Administered Current Inpatient Medications Acetaminophen (Tylenol) 650 mg PO Q4H PRN PRN Reason: Pain or Fever Stop: 01/23/20 08:42 Albuterol (Ventolin Hfa) 2 puffs INH Q6H PRN PRN Reason: Shortness Of Breath Stop: 01/23/20 08:42 Amiodarone HCl (Cordarone) 100 mg PO DAILY ANTONY Stop: 01/24/20 08:59 Last Admin: 12/25/19 08:38 Dose: 100 mg Documented by: Amlodipine Besylate (Norvasc) 5 mg PO QAM ANTONY Stop: 01/24/20 08:59 Last Admin: 12/25/19 08:38 Dose: 5 mg Documented by: Aspirin (Ecotrin Ectab) 81 mg PO DAILY ANTONY Stop: 01/24/20 08:59 Last Admin: 12/25/19 08:38 Dose: 81 mg Documented by: Atorvastatin Calcium (Lipitor) 20 mg PO PM ANTONY Stop: 01/23/20 20:59 Last Admin: 12/24/19 20:59 Dose: Not Given Documented by: Carvedilol (Coreg) 6.25 mg PO BID ANTONY Stop: 01/23/20 20:59 Last Admin: 12/25/19 08:37 Dose: 6.25 mg Documented by: Clonidine HCl (Catapres) 0.1 mg PO QPM ANTONY Stop: 01/23/20 20:59 Last Admin: 12/24/19 20:58 Dose: 0.1 mg Documented by: Clonidine HCl (Catapres) 0.2 mg PO QAM ANTNOY Stop: 01/24/20 08:59 Last Admin: 12/25/19 08:36 Dose: 0.2 mg Documented by: Clopidogrel Bisulfate (Plavix) 75 mg PO DAILY ANTONY Stop: 01/24/20 08:59 Last Admin: 12/25/19 08:37 Dose: 75 mg Documented by: Dextrose (Dextrose 50%) 25 - 50 ml IV UD PRN; Protocol PRN Reason: Hypoglycemia Protocol Stop: 01/23/20 08:42 Furosemide (Lasix) 80 mg PO SuMoWeFr@0900,1700 [facility] Stop: 01/23/20 09:44 Last Admin: 12/25/19 17:13 Dose: 80 mg Documented by: Glucagon (Glucagen) 1 mg SQ UD PRN; Protocol PRN Reason: Hypoglycemia Protocol Stop: 01/23/20 08:42 Glucose (Dex4 Glucose) 4 - 8 tabs PO UD PRN; Protocol PRN Reason: Hypoglycemia Protocol Stop: 01/23/20 08:42 Glucose (Glucose 40%) 15 - 30 gm PO UD PRN; Protocol PRN Reason: Hypoglycemia Protocol Stop: 01/23/20 08:42 Heparin Sodium (Porcine) (Heparin Sodium (Porcine)) 5,000 units SQ Q12 [facility] Stop: 01/23/20 20:59 Last Admin: 12/25/19 09:15 Dose: 5,000 units Documented by: Hydralazine HCl (Apresoline) 50 mg PO TID ANTONY Stop: 01/23/20 13:59 Last Admin: 12/25/19 13:08 Dose: 50 mg Documented by: Sodium Chloride (Nss 1000ml) 1,000 mls @ 0 mls/hr IV .Q0M PRN PRN Reason: For Hemodialysis Use ONLY Stop: 12/26/19 12:59 Insulin Aspart (Insulin Aspart 100 Units/Ml 3 Ml Pen) 0 units SC ACHS [facility] Stop: 01/23/20 11:29 Last Admin: 12/25/19 17:00 Dose: 7 units Documented by: Insulin Glargine (Insulin Glargine Solostar 100 Units/Ml 3 Ml Pen) 30 units SQ QAM [facility] Stop: 01/24/20 08:59 Last Admin: 12/25/19 08:51 Dose: 30 units Documented by: Miscellaneous (Carbohydrates For Hypoglycemia) 15 - 30 gm PO UD PRN PRN Reason: Hypoglycemia Protocol Stop: 01/23/20 08:42 Miscellaneous Information (Consult Glycemic Management Pharmacy) 1 ea N/A UD PRN PRN Reason: Consult Stop: 01/23/20 09:31 Morphine Sulfate (Morphine Sulfate) 2 mg IV Q30M PRN PRN Reason: Chest Pain Stop: 01/07/20 08:42 Nitroglycerin (Nitrostat) 0.4 mg SL UD PRN PRN Reason: Chest Pain Stop: 01/23/20 08:42 Ondansetron HCl (Zofran) 4 mg IV Q6H PRN PRN Reason: Nausea Stop: 01/23/20 08:42 Sertraline HCl (Zoloft) 25 mg PO QAM ANTONY Stop: 01/24/20 08:59 Last Admin: 12/25/19 08:38 Dose: 25 mg Documented by: Sevelamer HCl (Renagel) 800 mg PO TIDM ANTONY Stop: 01/23/20 11:59 Last Admin: 12/25/19 17:13 Dose: 800 mg Documented by: Tamsulosin HCl (Flomax) 0.4 mg PO QAM [facility] Stop: 01/24/20 08:59 Last Admin: 12/25/19 09:15 Dose: 0.4 mg Documented by: Vitamin B Complex/Folic Acid (Nephrocaps) 1 cap PO QPM ANTONY Stop: 01/23/20 20:59 Last Admin: 12/24/19 21:18 Dose: 1 cap Documented by: PG Care Time/CCT Total # of Minutes Spent Total Time Spent with Patient: Total time spent is greater than 50% in coordination of care (as documented) at patient's floor/unit and/or counseling patient: Coding Level of Care Code 12282 Initial Inpt Care Lvl 3 Diagnoses CAD (coronary artery disease) I25.10 Coronary Disease-Associated Artery/Lesion type: [place] artery [place] vs. transplanted heart: [place] heart Associated angina: without angina S/P coronary artery stent placement Z95.5 Abnormal stress ECG R94.39 Elevated troponin R79.89 Exertional angina I20.8 Paroxysmal atrial fibrillation I48.0 Sinus node dysfunction I49.5 HTN (hypertension) I10 Hypertension type: essential hypertension Hypercholesterolemia E78.00 (1) CAD (coronary artery disease) Coronary Disease-Associated Artery/Lesion type: [place] artery [place] vs. transplanted heart: [place] heart Associated angina: without angina Qualified Code(s): I25.10 - Atherosclerotic heart disease of [place] coronary artery without angina pectoris (2) HTN (hypertension) Hypertension type: essential hypertension Qualified Code(s): I10 - Essential (primary) hypertension
--- NOTE | 2019-12-25 19:40 | XCELERA ---
[id number]
[2019-12-25] MEDS: ATORVASTATIN 20 MG TAB PO SCH (20:09)
[2019-12-25] MEDS: NEPHROCAPS PO SCH (20:52)
--- NOTE | 2019-12-25 23:36 | Electrocardiogram Report ---
Test Reason : Blood Pressure : / mmHG Vent. Rate : 071 BPM Atrial Rate : 071 BPM P-R Int : 210 ms QRS Dur : 126 ms QT Int : 434 ms P-R-T Axes : 033 051 034 degrees QTc Int : 471 ms Sinus rhythm with 1st degree A-V block Non-specific intra-ventricular conduction block Abnormal ECG When compared with ECG of 01-MAY-2019 06:25, No significant change was found Confirmed by Sylvester Jon ([id number]) on 12/25/2019 11:36:37 PM Referred By: REFERRED SELF Confirmed By:Sylvester Jon
[2019-12-26] MEDS: INSULIN ASPART 100 UNITS/ML 3 ML PEN SC SCH ×4 (06:07→20:14)
--- NOTE | 2019-12-26 06:12 | Electrocardiogram Report ---
Test Reason : Blood Pressure : / mmHG Vent. Rate : 054 BPM Atrial Rate : 054 BPM P-R Int : 222 ms QRS Dur : 118 ms QT Int : 480 ms P-R-T Axes : 044 054 053 degrees QTc Int : 455 ms Sinus bradycardia with 1st degree A-V block Non-specific intra-ventricular conduction delay Borderline ECG When compared with ECG of 24-DEC-2019 05:00, No significant change was found Confirmed by Sylvester Jon ([id number]) on 12/26/2019 6:12:10 AM Referred By: REFERRED SELF Confirmed By:Sylvester Jon
[2019-12-26 06:13] LABS: Hematocrit (blood only) 36.2 % (42-52); Hemoglobin 11.8 g/dL (14.0-18.0); Mean Corpuscular Hemoglobin 30.8 pg (25-34); Mean Corpuscular Hgb Conc 32.6 g/dL (32-36); Mean Corpuscular Volume 94.5 fL (80-100); Mean Platelet Volume 10.3 fL (7.4-10.4); Platelet Count 187 K/uL (130-400); RDW Coefficient of Variation 14.7 % (11.5-14.5); RDW Standard Deviation 50.8 fL (36.4-46.3); Red Blood Count 3.83 M/uL (4.7-6.1); White Blood Count 11.11 K/uL (4.8-10.8)
[2019-12-26 06:52] LABS: BUN Creatinine Ratio 9.9 (10-20); Calcium 9.3 mg/dl (8.5-10.1); Creatinine Clr Calc Pharmacy 17.9 ml/min; Est GFR (African American) 11.8; Est GFR (Non-African American) 10.2; Potassium 4.1 mmol/L (3.5-5.1)
[2019-12-26] MEDS ORDERED: SODIUM CHLORIDE 0.9% 1000ML 1,000 ML IV PRN (07:00)
[2019-12-26] MEDS ORDERED: NiCARDipine HCL INJ 2.5 MG/ML 10 ML AMP ONE (07:43)
[2019-12-26] MEDS ORDERED: HEPARIN (PORCINE) 1000 UNIT/ML 10 ML (CATH LAB USE ONLY) ONE ×2 (07:43→08:50)
[2019-12-26] MEDS ORDERED: fentaNYL citrate 100 MCG/2 ML VIAL ONE ×2 (07:44→09:16)
[2019-12-26] MEDS ORDERED: NITROGLYCERIN/D5W 100MCG/ML 20ML SYR ONE (07:44)
[2019-12-26] MEDS ORDERED: MIDAZOLAM HCL 1 MG/ML 2ML VIAL ONE ×2 (07:44→09:16)
--- NOTE | 2019-12-26 07:51 | Pre Anesthesia Assessment ---
Date of Service December 26, 2019 Pre Sedation Assessment Vital Signs Temp Pulse Pulse Pulse Resp BP Pulse Ox 12/26/19 07:39 60 18 195/93 H 96 12/26/19 04:16 36.7 C 61 18 162/77 H 94 12/26/19 00:49 36.6 C 58 L 163/68 H 92 12/26/19 00:39 61 12/25/19 19:42 37.4 C 66 18 152/61 H 92 12/25/19 15:41 36.6 C 57 L 18 138/74 92 12/25/19 15:06 57 L 12/25/19 12:35 36.6 C 63 18 136/67 94 Cardiovascular + regular rate Respiratory normal respiratory effort, lungs clear to auscultation Pre-Sedation Airway Assessment Smoking Status: Current some day smoker Hx Sleep Apnea: Yes Short, Thick Neck: No Thyromental Distance: > or= 3.5 Finger Breadths Oral Cavity: + WNL Mallampati Class: III ASA: ASA3 NPO Status Date of Last Intake of Fluids: 12/25/19 Time of Last Intake of Fluids: 20:00 Date of Last Intake of Solid Food: 12/25/19 Time of Last Intake of Solid Foods: 20:00 Procedure Planning Contraindications for Sedation: none Current Medications Reviewed: Yes Notes The planned sedation has been discussed with the patient. Informed Consent was obtained. I have identified the patient, determined the appropriateness of sedation and have assessed the patient immediately prior to the procedure. All medicine(s) and interventions are by my order.
[2019-12-26] MEDS ORDERED: CLOPIDOGREL BISULFATE 300 MG TAB ONE (08:50)
--- NOTE | 2019-12-26 09:10 | Cardiac Catheterization ---
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: Sharepoint Application Developer Cardiac Status Clinical evaluation leading to the procedure CAD Presenation: Positive Stress Test and Unstable angina Anginal Classification: CCS III Heart Failure: No Cardiogenic Shock within 24 Hours: No Cardiac Arrest within 24 Hours: No Imaging Studies Past 6 Months: Yes Stress Studies Past 6 Months: Yes Standard Exercise Test: Yes - Positive and Risk/Extent of Ischemia (High) Stress Echocardiogram: Yes - Indeterminant Coronary Anatomy Dominant: Right Left Ventricular Angiography EF (%): n/a Diagnostic Physicians Name: Sylvester Jon MD Status: Elective Closure Device Percutaneous Entry Location: Radial Closure Device: Radial Band Recommendations: PCI without planned CABG and Management Recommendatons (as above) Cardiac Cath Procedure Full Procedure Date December 26, 2019 Pre-Procedure Diagnosis Pre-Procedure Diagnosis: Angina (Presented with atypical chest pain but admits to angina and ALTAMIRANO. Very poor exercise tolerance on exercise stress with significantly abnormal stress ECG with angina and severe dyspnea. Had prior mid LAD stent [facility] at [facility].) and Positive Stress Test AUC Score AUC Score: 8 Post-Procedure Diagnosis Post-Procedure Diagnosis: Severe CAD and Elevated Intracardiac Pressures Procedure(s) Performed Procedure(s) Performed: Coronary Angiography and Left Heart Cath Customer Experience Consultant Sylvester Jon MD Multi Care Technician(s) Todd Taveras Estimated Blood Loss Estimated Blood Loss: < 25 ml Medication(s) Medication(s): Fentanyl, Heparin, Lidocaine 1%, Nicardipine and Versed Summary of Findings Procedures 1. Coronary angiography 2. Left heart catheterization 3. Moderate sedation Coronary angiography: 1. Left main coronary artery: LMCA is large in caliber. Distal LMCA 20 to 30% taper. 2. Left anterior descending: LAD is a large-caliber vessel that wraps around the apex. Ostial to proximal LAD 90% with KAY-3 flow. Mid LAD stent patent. Distal LAD 20%. Medium caliber D1 no significant CAD. Small-caliber D2 ostial/proximal 70%. D2 originates from within mid LAD stent. KAY-3 flow. 3. Circumflex: The circumflex is a medium/large caliber vessel. Large OM1. No significant CAD within the circumflex system. 4. Right coronary artery: RCA is large and dominant. Superior takeoff. Luminal irregularities within the mid RCA, approximately 10%. No significant CAD within PDA, or PL. Left heart catheterization: 1. No significant aortic stenosis. Peak to peak gradient across the aortic valve less than 5 mmHg. 2. Moderately elevated LVEDP; 21 mmHg. 3. Left ventriculography was not performed. Moderate sedation: 1. Sedation start time: 8:17 AM 2. Sedation end time: 8:50 AM Procedural details: 1. LMCA was unable to be cannulated with a 6 [place] JL 3.5 diagnostic catheter. It was difficult for 6 [place] JL4 diagnostic catheter to remain seated within the LMCA. The LMCA was engaged with 6 [place] AL 2 catheter via the left radial artery. The RCA was engaged with a 6 [place] JR4 diagnostic catheter. Impression: 1. Severe CAD involving ostial to proximal LAD. 2. Patent mid LAD stent. 3. Otherwise nonobstructive CAD. 4. No significant aortic stenosis. 5. Moderately elevated left sided filling pressure (scheduled for dialysis today). Plan: 1. Dr. Ochoa of interventional cardiology was asked to review images and consider PCI of LAD. He plans on performing IVUS, with consideration of PCI. Hemodynamics Rest Ao:: 123/57 Final Ao: 141/57 LV: 124/03/04 Recommendations Recommendations: PCI without planned CABG and Management Recommendatons (as above) Specimens Specimens: None Radiation Exposure (mGy) 1724 mGy. Fluoro time 11.2 min. Contrast (mls) 75 ml Procedural Complication(s) None Disposition remains in manager labor delivery for IVUS/PCI I attest to the content of the Intraoperative Record and any orders documented therein. Any exceptions are noted below. [facility] Card Cath Procedure Codes Cardiac Catheterization Procedure 1: Cardiovascular Cath Procedures: 83915 Coronaries and LHC (+/-LV) Moderate Sedation Procedure 1: Sedation/Anesthesia: 23507 Mod Sedation by the same physician;Init15 Min Child Age 5 & Up Procedure 2: Sedation/Anesthesia: 99006 Mod Sedation by the same physician; Ea [id number] Minutes PG Care Time/CCT Total # of Minutes Spent Total Time Spent with Patient: Total time spent is greater than 50% in coordination of care (as documented) at patient's floor/unit and/or counseling patient:
--- NOTE | 2019-12-26 09:52 | Post Anesthesia Assessment ---
Date of Service December 26, 2019 Post Sedation Assessment Vital Signs Temp Pulse Pulse Pulse Resp BP Pulse Ox 12/26/19 07:39 60 18 195/93 H 96 12/26/19 04:16 98.1 F 61 18 162/77 H 94 12/26/19 00:49 97.9 F 58 L 163/68 H 92 12/26/19 00:39 61 12/25/19 19:42 99.3 F 66 18 152/61 H 92 12/25/19 15:41 97.9 F 57 L 18 138/74 92 12/25/19 15:06 57 L 12/25/19 12:35 97.9 F 63 18 136/67 94 Recovery Score Activity: Moves 4 extremities Respiration: Deep Breath/Cough Circulation: +/-20% PreAnes Value Consciousness: Fully Awake Oxygen Saturation: O2 needed for >90% Discharge Sedation Level of Care: Fast Track Phase II Post Sedation Plan On clinical assessment, the patient appears to have tolerated the sedation without complications. Patient is recovering as anticipated. Patient will continue to be monitored by nursing and may be discharged when sedation discharge criteria are met per below protocol. Upon Completions of procedure up to 15 minutes continue every 5 minute vital signs and the P.A.R. score; then discharge to a Phase I or Fast Track to Phase II per the following guidelines: * Discharge Patient to appropriate Phase II area if PAR is 8 or greater or return to pre- procedure baseline. The post - procedure orders will be as directed. * If PAR score is less than 8 or not return to pre-procedure baseline then patient will follow Phase I monitoring till PAR is reached for Phase II. The Phase I may be done in procedure room or may call to secure a Phase I area. * If naloxone or flumazenil are used for reversal, hold in Phase I for continued monitoring from when last reversal dose was given for a minimum of 60 minutes or longer pending the nurse and/or physician discretion of patient condition before discharge to Phase II. Please call the Sedation Physician to re-evaluate and complete post-note for discharge to Phase II area. Do NOT discharge from procedure sedation or Phase 1 until post- sedation evaluation note is complete by procedure /sedation MD Sedation Discharge Instructions to be given to the patient at discharge to home.
--- NOTE | 2019-12-26 10:01 | Cardiac Catheterization ---
[facility] [place] Data: Health Informatics Advisor Cardiac Status Clinical evaluation leading to the procedure CAD Presenation: Non STEMI Anginal Classification: CCS III Heart Failure: No Cardiogenic Shock within 24 Hours: No Cardiac Arrest within 24 Hours: No Imaging Studies Past 6 Months: Yes Stress Studies Past 6 Months: Yes Stress Echocardiogram: Yes - Positive Diagnostic Physicians Name: Luiz Ochoa MD Closure Device Percutaneous Entry Location: Radial Closure Device: Radial Band Recommendations: PCI without planned CABG PCI Indication: PCI for high risk Non-BARRON Lesion Segment Name: Proximal LAD Culprit Artery: Yes Stenosis Prior to Rx (%): 90 Chronic Total Occlusion: No IVUS: Yes Pre-Procedure KAY Flow: 3 Previously Treated Lesion: No Lesion Complexity: High/C Lesion Length (mm): 12 Thrombus Present: No Bifurcation Lesion: Yes Guidewire Across Lesion: Stenosis Post-Procedure (%): 0 Post-Procedure KAY Flow: 3 Devices(s) Deployed: Yes Yes Intraprocedure Events Significant Disection: No Perforation: No Cardiac Cath Procedure Full Procedure Date December 26, 2019 Pre-Procedure Diagnosis Pre-Procedure Diagnosis: Angina (Presented with atypical chest pain but admits to angina and ALTAMIRANO. Very poor exercise tolerance on exercise stress with significantly abnormal stress ECG with angina and severe dyspnea. Had prior mid LAD stent 2019 at [facility].) and Positive Stress Test AUC Score AUC Score: 8 Post-Procedure Diagnosis Post-Procedure Diagnosis: Severe CAD and Successful PCI Procedure(s) Performed Procedure(s) Performed: Drug Eluting Stent and IVUS [place] Luiz Ochoa MD [employer] Brm Developer(s) Todd Taveras Estimated Blood Loss Estimated Blood Loss: < 25 ml Medication(s) Medication(s): Clopidogrel, Fentanyl, Heparin, Lidocaine 1%, Nicardipine, Nitroglycerin and Versed Summary of Findings Indication: Unstable angina, abnormal stress test Access: 6 Fr left radial artery Catheters: EBU 4.0 guide Findings: For full details of patient's coronary angiography please see cath report dictated by Dr. Jon. Briefly, patient found to have severe single vessel disease with a 90% stenosis from ostial to proximal LAD just prior to previous stent. Decision to proceed with PCI. -- PCI -- Antithrombotic therapy: Heparin, clopidogrel Procedure: Left main cannulated with EBU 4.0 guide Claims Adjudicator 50 wire passed across lesion into distal LAD Pro-water wire placed into circumflex JOANNA used to assess location of disease, degree of calcification, involvement with left main. Stent widely patent, proximal stent severe mildly calcified circumferential plaque (MLA 2.8 mm, stenosis 83%). Disease extended back into distal left main with 30 to 40% circumferential plaque. Ostial LAD lesion predilated with 2.5 compliant balloon Dilated lesion stented with 3.5 x 15 mm Xience Leticia drug-eluting Stent post-dilated with 3.5 noncompliant balloon Repeat IVUS showed well apposed stent ending just at LAD ostium IC vasodilators administered for spasm Post procedure KAY 3 flow, stent well expanded with minimal residual stenosis and no apparent cardiac complications. Arterial Closure: TR band Summary: 1. Severe ostial LAD disease 2. Moderate residual distal left main stenosis on IVUS 3. Successful PCI of ostial/proximal LAD with single drug-eluting stent (3.5 x 15 mm [place]) overlapping with prior mid LAD stent. Recommendations: To PCU for continued monitoring Reloaded with clopidogrel 300 mg in Health Informatics Advisor Continue dual-antiplatelet therapy for at least 1 year, likely extended in the setting of high risk disease. Continue statin, and ASCVD risk factor modification Consult cardiac Rehab Hemodynamics Rest Ao:: 132/70/97 Final Ao: 133/72/100 LV: -- Recommendations Recommendations: PCI without planned CABG Specimens Specimens: None Radiation Exposure (mGy) 4452 Contrast (mls) 190 Procedural Complication(s) None Disposition PCU I attest to the content of the Intraoperative Record and any orders documented therein. Any exceptions are noted below. [facility] Card Cath Procedure Codes Therapeutic Services & Ancillary Proc Procedure 1: Cardiovascular Tx and Anc Procedures: 60126 IV Ultrasound (Coronary or Graft) Moderate Sedation Procedure 1: Sedation/Anesthesia: 44693 Mod Sedation by the same physician; Ea [id number] Minutes Stenting Procedure 1: Cardiovascular Stent Procedures: 28453 Perc transcatheter placement of intracoronary stent(s), with ang PG Care Time/CCT Total # of Minutes Spent Total Time Spent with Patient: Total time spent is greater than 50% in coordination of care (as documented) at patient's floor/unit and/or counseling patient:
[2019-12-26] MEDS: TAMSULOSIN HCL 0.4 MG CAP PO SCH (11:22)
[2019-12-26] MEDS: CLOPIDOGREL BISULFATE 75 MG TAB PO SCH (11:22)
[2019-12-26] MEDS: ASPIRIN 81 MG ECTAB PO SCH (11:22)
[2019-12-26] MEDS: AMLODIPINE BESYLATE 5 MG TAB PO SCH ×2 (11:22→20:09)
[2019-12-26] MEDS: SEVELAMER HCL 800 MG TABLET PO SCH ×3 (11:22→18:28)
[2019-12-26] MEDS: AMIODARONE 200 MG TAB PO SCH (11:23)
[2019-12-26] MEDS: SERTRALINE HCL 50 MG TABLET PO SCH (11:23)
[2019-12-26] MEDS: HydrALAZINE TAB 50 MG TAB PO SCH ×3 (11:23→20:09)
[2019-12-26] MEDS: carvediloL 6.25 MG TAB PO SCH ×2 (11:24→20:08)
[2019-12-26] MEDS: cloNIDine HCL 0.1 MG TAB PO SCH ×2 (11:24→20:10)
[2019-12-26] MEDS: HEPARIN SOD 5,000 UNIT/0.5 ML VIAL SQ SCH ×2 (12:13→20:10)
[2019-12-26] MEDS: INSULIN GLARGINE SOLOSTAR 100 UNITS/ML 3 ML PEN SQ SCH (12:17)
--- NOTE | 2019-12-26 12:55 | Cardiology Progress Note ---
Date of Service December 26, 2019 Assessment & Plan (1) CAD (coronary artery disease): (2) S/P coronary artery stent placement: (3) Abnormal stress ECG: (4) Elevated troponin: (5) Exertional angina: (6) Paroxysmal atrial fibrillation: (7) Sinus node dysfunction: (8) HTN (hypertension): (9) Hypercholesterolemia: ASSESSMENT/PLAN: 1. Angina/ abnormal stress ECG : Underwent PCI today of ostial/proximal LAD. No further angina. 2. CAD s/p LAD PCI: Underwent ostial/proximal LAD PCI today, overlapping with prior mid LAD stent. Continue dual anti-platelet therapy. Continue beta- ginger. Recommend high-intensity statin therapy. 3. Elevated troponin: Nondiagnostic for PA but given other findings. 4. Paroxysmal AFib: On amiodarone as per electrophysiology. Deemed to be a poor anticoagulation candidate by electrophysiology. Followed by Dr. Khoury. 5. Sinus node dysfunction: Had conversion pauses in the past. On amiodarone to help avoid atrial arrhythmia and therefore conversion pauses. Follow with EP. loop recorder in place. 6. Hypertension: Blood pressure elevated. Undergoing dialysis today. Continue usual antihypertensive agents as his blood pressure was better controlled yesterday. Adjust regimen as appropriate. 7. Dyslipidemia: Continue statin therapy. Consider high-intensity statin therapy. 8. CKD on dialysis: Dialysis today as per Nephrology. 9. Disposition: Cardiology will continue to follow. Patient care discussed with Dr. Taylor and Dr. Richard, as well as his primary development expert, Dr. Khoury. Admission and Anticipated Discharge Date Admission Date: December 24, 2019 Subjective He has not had any further angina overnight. He denies shortness of breath. No syncope, near-syncope, palpitations, or bleeding. He underwent cardiac catheterization earlier today, demonstrating severe ostia herl - proximal LAD disease and underwent PCI with 3.5 x 15 mm roseline SOLIS, overlapping with prior mid LAD stent. He was also noted to have moderate distal left main coronary artery stenosis. Review of systems: As above. Physical Exam Physical Exam: Gen.: No acute distress. Alert and oriented. HEENT: Anicteric sclera. Neck: No JVD but thick neck. Cardiac: Regular. Normal S1-S2. 1/6 systolic murmur. No rubs or gallops. Pulmonary: Clear to auscultation bilaterally without wheezes, rales, or rhonchi. Abdomen: Obese. Soft, nontender, nondistended, with normoactive bowel sounds. No bruits noted. Extremities: 2+ left radial pulse. 2+ posterior tibialis pulses bilaterally. 1+ right pedal edema. Trace left lower extremity pedal edema. No cyanosis. Psychiatric: Affect appears appropriate. Results & Data ([facility]) Vital Signs (Past 12 Hours) Vital Signs Temp Pulse Pulse Resp BP BP BP 12/26/19 11:46 75 197/74 H 12/26/19 11:16 73 194/81 H 12/26/19 10:46 76 199/78 H 12/26/19 10:31 76 165/76 H 12/26/19 10:18 79 16 195/82 H 12/26/19 10:03 79 16 198/82 H 12/26/19 07:39 60 18 195/93 H 12/26/19 04:16 36.7 C 61 18 162/77 H 12/26/19 00:49 36.6 C 58 L 163/68 H Pulse Ox 12/26/19 11:46 12/26/19 11:16 12/26/19 10:46 12/26/19 10:31 12/26/19 10:18 94 12/26/19 10:03 92 12/26/19 07:39 96 12/26/19 04:16 94 12/26/19 00:49 92 Laboratory Results Laboratory Results - last 24 hr 12/25/19 12/25/19 12/26/19 16:08 20:05 05:49 WBC 11.11 H RBC 3.83 L Hgb 11.8 L Hct 36.2 L MCV 94.5 MCH 30.8 MCHC 32.6 RDW Std Deviation 50.8 H RDW Coeff of Atif 14.7 H Plt Count 187 MPV 10.3 Activ Coag Time Kaolin Sodium Potassium Chloride Carbon Dioxide Anion Gap BUN Creatinine Est Cr Clr Drug Dosing Est GFR ( Amer) Est GFR (Non-Af Amer) BUN/Creatinine Ratio Glucose POC Glucose 124 H 140 H Calcium 12/26/19 12/26/19 12/26/19 05:49 05:58 09:22 WBC RBC Hgb Hct MCV MCH MCHC RDW Std Deviation RDW Coeff of Atif Plt Count MPV Activ Coag Time Kaolin 230 H Sodium 138 Potassium 4.1 Chloride 104 Carbon Dioxide 26 Anion Gap 9.0 BUN 53 H Creatinine 5.35 H* D Est Cr Clr Drug Dosing 17.9 Est GFR ( Amer) 11.8 Est GFR (Non-Af Amer) 10.2 BUN/Creatinine Ratio 9.9 L Glucose 133 H POC Glucose 140 H Calcium 9.3 12/26/19 12/26/19 09:43 11:46 WBC RBC Hgb Hct MCV MCH MCHC RDW Std Deviation RDW Coeff of Atif Plt Count MPV Activ Coag Time Kaolin 252 H Sodium Potassium Chloride Carbon Dioxide Anion Gap BUN Creatinine Est Cr Clr Drug Dosing Est GFR ( Amer) Est GFR (Non-Af Amer) BUN/Creatinine Ratio Glucose POC Glucose 157 H Calcium Diagnostic Findings telemetry personally reviewed: Sinus rhythm. Cardiac catheterization 12/26/2019: Coronary angiography: 1. Left main coronary artery: LMCA is large in caliber. Distal LMCA 20 to 30% taper. 2. Left anterior descending: LAD is a large-caliber vessel that wraps around the apex. Ostial to proximal LAD 90% with KYA-3 flow. Mid LAD stent patent. Distal LAD 20%. Medium caliber D1 no significant CAD. Small-caliber D2 ostial/proximal 70%. D2 originates from within mid LAD stent. KAY-3 flow. Successful PCI of ostial/proximal LAD with single drug-eluting stent (3.5 x 15 mm [place]) overlapping with prior mid LAD stent. 3. Circumflex: The circumflex is a medium/large caliber vessel. Large OM1. No significant CAD within the circumflex system. 4. Right coronary artery: RCA is large and dominant. Superior takeoff. Luminal irregularities within the mid RCA, approximately 10%. No significant CAD within PDA, or PL. Left heart catheterization: 1. No significant aortic stenosis. Peak to peak gradient across the aortic valve less than 5 mmHg. 2. Moderately elevated LVEDP; 21 mmHg. 3. Left ventriculography was not performed. Medications Administered Current Inpatient Medications Acetaminophen (Tylenol) 650 mg PO Q4H PRN PRN Reason: Pain or Fever Stop: 01/23/20 08:42 Albuterol (Ventolin Hfa) 2 puffs INH Q6H PRN PRN Reason: Shortness Of Breath Stop: 01/23/20 08:42 Amiodarone HCl (Cordarone) 100 mg PO DAILY ANTONY Stop: 01/24/20 08:59 Last Admin: 12/26/19 11:23 Dose: 100 mg Documented by: Amlodipine Besylate (Norvasc) 5 mg PO QAM [facility] Stop: 01/24/20 08:59 Last Admin: 12/26/19 11:22 Dose: 5 mg Documented by: Aspirin (Ecotrin Ectab) 81 mg PO DAILY ANTONY Stop: 01/24/20 08:59 Last Admin: 12/26/19 11:22 Dose: 81 mg Documented by: Atorvastatin Calcium (Lipitor) 20 mg PO PM ANTONY Stop: 01/23/20 20:59 Last Admin: 12/25/19 20:09 Dose: 20 mg Documented by: Carvedilol (Coreg) 6.25 mg PO BID [facility] Stop: 01/23/20 20:59 Last Admin: 12/26/19 11:24 Dose: 6.25 mg Documented by: Clonidine HCl (Catapres) 0.1 mg PO QPM ANTONY Stop: 01/23/20 20:59 Last Admin: 12/25/19 20:09 Dose: 0.1 mg Documented by: Clonidine HCl (Catapres) 0.2 mg PO QAM [facility] Stop: 01/24/20 08:59 Last Admin: 12/26/19 11:24 Dose: 0.2 mg Documented by: Clopidogrel Bisulfate (Plavix) 75 mg PO DAILY [facility] Stop: 01/24/20 08:59 Last Admin: 12/26/19 11:22 Dose: 75 mg Documented by: Dextrose (Dextrose 50%) 25 - 50 ml IV UD PRN; Protocol PRN Reason: Hypoglycemia Protocol Stop: 01/23/20 08:42 Furosemide (Lasix) 80 mg PO SuMoWeFr@0900,1700 [facility] Stop: 01/23/20 09:44 Last Admin: 12/25/19 17:13 Dose: 80 mg Documented by: Glucagon (Glucagen) 1 mg SQ UD PRN; Protocol PRN Reason: Hypoglycemia Protocol Stop: 01/23/20 08:42 Glucose (Dex4 Glucose) 4 - 8 tabs PO UD PRN; Protocol PRN Reason: Hypoglycemia Protocol Stop: 01/23/20 08:42 Glucose (Glucose 40%) 15 - 30 gm PO UD PRN; Protocol PRN Reason: Hypoglycemia Protocol Stop: 01/23/20 08:42 Heparin Sodium (Porcine) (Heparin Sodium (Porcine)) 5,000 units SQ Q12 [facility] Stop: 01/23/20 20:59 Last Admin: 12/26/19 12:13 Dose: 5,000 units Documented by: Hydralazine HCl (Apresoline) 50 mg PO TID [facility] Stop: 01/23/20 13:59 Last Admin: 12/26/19 11:23 Dose: 50 mg Documented by: Sodium Chloride (Nss 1000ml) 1,000 mls @ 0 mls/hr IV .Q0M PRN PRN Reason: For Hemodialysis Use ONLY Stop: 12/26/19 12:59 Insulin Aspart (Insulin Aspart 100 Units/Ml 3 Ml Pen) 0 units SC ACHS [facility]; Protocol Stop: 01/23/20 11:29 Last Admin: 12/26/19 12:14 Dose: 8 units Documented by: Insulin Glargine (Insulin Glargine Solostar 100 Units/Ml 3 Ml Pen) 30 units SQ QAM [facility]; Protocol Stop: 01/24/20 08:59 Last Admin: 12/26/19 12:17 Dose: 30 units Documented by: Miscellaneous (Carbohydrates For Hypoglycemia) 15 - 30 gm PO UD PRN PRN Reason: Hypoglycemia Protocol Stop: 01/23/20 08:42 Miscellaneous Information (Consult Glycemic Management Pharmacy) 1 ea N/A UD PRN PRN Reason: Consult Stop: 01/23/20 09:31 Morphine Sulfate (Morphine Sulfate) 2 mg IV Q30M PRN PRN Reason: Chest Pain Stop: 01/07/20 08:42 Nitroglycerin (Nitrostat) 0.4 mg SL UD PRN PRN Reason: Chest Pain Stop: 01/23/20 08:42 Ondansetron HCl (Zofran) 4 mg IV Q6H PRN PRN Reason: Nausea Stop: 01/23/20 08:42 Sertraline HCl (Zoloft) 25 mg PO QAM [facility] Stop: 01/24/20 08:59 Last Admin: 12/26/19 11:23 Dose: 25 mg Documented by: Sevelamer HCl (Renagel) 800 mg PO TIDM [facility] Stop: 01/23/20 11:59 Last Admin: 12/26/19 11:22 Dose: Not Given Documented by: Tamsulosin HCl (Flomax) 0.4 mg PO QAM ANTONY Stop: 01/24/20 08:59 Last Admin: 12/26/19 11:22 Dose: 0.4 mg Documented by: Vitamin B Complex/Folic Acid (Nephrocaps) 1 cap PO QPM ANTONY Stop: 01/23/20 20:59 Last Admin: 12/25/19 20:52 Dose: 1 cap Documented by: PG Care Time/CCT Total # of Minutes Spent Total Time Spent with Patient: Total time spent is greater than 50% in coordination of care (as documented) at patient's floor/unit and/or counseling patient: Coding Level of Care Code 46143 Subseq Hosp Care Lvl 3 Diagnoses CAD (coronary artery disease) I25.10 Coronary Disease-Associated Artery/Lesion type: ramona artery [place] vs. transplanted heart: ramona heart Associated angina: without angina S/P coronary artery stent placement Z95.5 Abnormal stress ECG R94.39 Elevated troponin R79.89 Exertional angina I20.8 Paroxysmal atrial fibrillation I48.0 Sinus node dysfunction I49.5 HTN (hypertension) I10 Hypertension type: essential hypertension Hypercholesterolemia E78.00 (1) CAD (coronary artery disease) Coronary Disease-Associated Artery/Lesion type: [place] artery [place] vs. transplanted heart: ramona heart Associated angina: without angina Qualified Code(s): I25.10 - Atherosclerotic heart disease of ramona coronary artery without angina pectoris (2) HTN (hypertension) Hypertension type: essential hypertension Qualified Code(s): I10 - Essential (primary) hypertension
--- NOTE | 2019-12-26 17:19 | Hospitalist Progress Note ---
Date of Service December 26, 2019 Assessment & Plan (1) Chest pain: Patient had a significant dyspneic response to stress testing with profound EKG changes post procedure will be set up for heart catheterization 12/26/19 Underwent ostial/proximal LAD PCI today, overlapping with prior mid LAD stent. 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, will start amiodarone this stay while pt is on tele will be some discussion whether patient will need anticoagulation prior to going home (3) ESRD (end stage renal disease): Pt will have dialysis as per his usual schedule he remains euvolemic to examination (4) BPH (benign prostatic hyperplasia): Pt states he still does make urine, but typically does not take lasix on dialysis days (5) Depression: continues on zoloft 25 daily, patient was tearful after discussion of his heart catheterization (6) Diabetes mellitus type 2 in obese: Controlled with glargine and ssi (7) Anemia: anemia of chronic disease likely associated with his renal dysfunction Patient remains on heparin subcu for DVT prevention Admission and Anticipated Discharge Date Admission Date: December 24, 2019 Subjective He has not had any further angina overnight. He denies shortness of breath. No syncope, near-syncope, palpitations, or bleeding. He underwent cardiac catheterization earlier today, demonstrating severe ostia herl - proximal LAD disease and underwent PCI with 3.5 x 15 mm roseline SOLIS, overlapping with prior mid LAD stent. He was also noted to have moderate distal left main coronary artery stenosis. Review of systems: As above. Review of Systems Review of Systems: Mild distress and fatigue no headache, blurry or double vision no speech or swallowing issues Reproducible sharp chest pain, without the sensation of pressure or palpitations Marked dyspnea during stress testing associated with reproducible chest pain no abdominal pain, nausea or vomiting, patient feels more distended no dysuria, hematuria or frequency no focal joint pain, does have some lower extremity swelling no back pain, CVA tenderness or radicular pain no bruising, bleeding or rashes no focal signs of weakness or numbness or altered sensation no complaints or anxiety or depression. Physical Exam Physical Exam: The patient appeared in mild distress he is morbidly obese with a BMI of 39.2 Vital signs as documented. Head exam is normocephalic atraumatic no scleral icterus Neck is with 2 cm JVD, thyromegaly, or carotid bruits. Lungs are diminished at the bases,, Cardiac exam, Rhythm is regular.. No murmurs, rubs or gallops. Abdominal exam reveals normal bowel sounds, soft slightly distended Extremities are nonedematous and both pedal pulses are normal. Neurologic exam is alert and oriented, no focal loss of strength or sensation Skin is without bruises or rashes Psychologically is without concerns for anxiety or depression Results & Data Results & Data ([facility]) Vital Signs (Past 12 Hours) Vital Signs Temp Pulse Pulse Pulse Resp BP BP 12/26/19 17:00 63 199/79 H 12/26/19 16:40 67 195/85 H 12/26/19 16:20 65 181/76 H 12/26/19 16:00 65 182/82 H 12/26/19 15:40 64 174/74 H 12/26/19 15:20 63 176/72 H 12/26/19 15:00 66 206/75 H 12/26/19 14:40 60 211/76 H 12/26/19 14:20 58 L 193/72 H 12/26/19 14:04 97.5 F L 60 60 191/72 H 12/26/19 12:46 63 12/26/19 11:46 75 12/26/19 11:16 73 12/26/19 10:46 76 12/26/19 10:31 76 12/26/19 10:18 79 16 195/82 H 12/26/19 10:03 79 16 198/82 H 12/26/19 07:39 60 18 195/93 H BP BP Pulse Ox 12/26/19 17:00 12/26/19 16:40 12/26/19 16:20 12/26/19 16:00 12/26/19 15:40 12/26/19 15:20 12/26/19 15:00 12/26/19 14:40 12/26/19 14:20 12/26/19 14:04 12/26/19 12:46 159/80 H 12/26/19 11:46 197/74 H 12/26/19 11:16 194/81 H 12/26/19 10:46 199/78 H 12/26/19 10:31 165/76 H 12/26/19 10:18 94 12/26/19 10:03 92 12/26/19 07:39 96 PG Care Time/CCT Total # of Minutes Spent Total Time Spent with Patient: Total time spent is greater than 50% in coordination of care (as documented) at patient's floor/unit and/or counseling patient: Coding Level of Care Code 44002 Subseq Hosp Care Lvl 3 Diagnoses Chest pain R07.9 Chest pain type: unspecified Paroxysmal atrial fibrillation I48.0 ESRD (end stage renal disease) N18.6 BPH (benign prostatic hyperplasia) N40.0 Lower urinary tract symptom presence: symptoms absent Depression F33.9 Depression Type: major depressive disorder Major depression recurrence: recurrent Active/Remission status: remission status unspecified Diabetes mellitus type 2 in obese E11.69; E66.9 Anemia D64.9 Anemia type: unspecified type (1) Chest pain Chest pain type: unspecified Qualified Code(s): R07.9 - Chest pain, unspecified (2) BPH (benign prostatic hyperplasia) Lower urinary tract symptom presence: symptoms absent Qualified Code(s): N40.0 - Benign prostatic hyperplasia without lower urinary tract symptoms (3) Depression Depression Type: major depressive disorder Major depression recurrence: recurrent Active/Remission status: remission status unspecified Qualified Code(s): F33.9 - Major depressive disorder, recurrent, unspecified (4) Anemia Anemia type: unspecified type Qualified Code(s): D64.9 - Anemia, unspecified
--- NOTE | 2019-12-26 19:27 | Nephrology Progress Note ---
Date of Service December 26, 2019 Assessment & Plan (1) ESRD (end stage renal disease): TTS schedule. AVF functioning well. EDW 119.5. Presented with notably hypervolemic. Attempted to challenge with additional UF during HD today. Set for 4 L, able to remove 3.6. BP accelerated throughout treatment. Filter clotting. Electrolytes have been acceptable. Will evaluate in the AM for potential role of addition UF challenge. (2) CKD (chronic kidney disease), stage V: Attributed to diabetes and hypertension. Dialysis dependent. Unfortunately does not make a significant amount of urine. Inter dialytic weight gains have been excessive. The importance of of a renal diet and daily fluid reinforced. Remains on Renvela as a phosphate binder as well as a low phosphorus diet. Medications are appropriate for dialysis. (3) Anemia: Chronic, stable. No current need for additional MAYLIN therapy. (4) HTN (hypertension): Well controlled throughout hospitalization prior to today. Suspect this is sympathetic. Deferred increasing beta-ginger due to recent registered nurse cardiac telemetry demonstrating episodes of sinus myke to 40 bpm and pauses of 3-7 seconds. Amlodipine converted to 5 mg twice daily with additional dose now. Admission and Anticipated Discharge Date Admission Date: December 24, 2019 Subjective Cardiac cath with PCI earlier today. No interval chest pain. NO dyspnea. BP has been accelerated since that time. Tolerated HD reasonably well. UF goal 4 L and net 3.6 L. Clotting of filter during treatment. Review of Systems Review of Systems: All systems reviewed & are unremarkable except as noted in HPI & below Physical Exam Constitutional: well developed; no acute distress Eyes: no scleral abnormality and no corneal abnormality ENMT: Mouth: no oral mucosal abnormality and oral mucous membranes not dry Neck: normal visual inspection and trachea midline Respiratory: normal respiratory effort Auscultation: lungs clear to auscultation bilaterally and + rales Cardiovascular: Rate/Rhythm: regular rate Heart Sounds: normal S1 and normal S2 Extremities: + edema and + AV fistula Musculoskeletal: Extremities: no cyanosis and no clubbing Skin: normal turgor; no lesions Neurologic: Motor/Sensory: no tremor and no asterixis Psychiatric: Orientation: alert and oriented x 3 Results & Data ([facility]) Vital Signs (Past 12 Hours) Vital Signs Temp Pulse Pulse Pulse Resp BP BP 12/26/19 18:05 36.9 C 70 12/26/19 18:00 70 194/84 H 12/26/19 17:40 67 204/88 H 12/26/19 17:20 66 184/83 H 12/26/19 17:00 63 199/79 H 12/26/19 16:40 67 195/85 H 12/26/19 16:20 65 181/76 H 12/26/19 16:00 65 182/82 H 12/26/19 15:40 64 174/74 H 12/26/19 15:20 63 176/72 H 12/26/19 15:00 66 206/75 H 12/26/19 14:40 60 211/76 H 12/26/19 14:20 58 L 193/72 H 12/26/19 14:04 36.4 C L 60 60 191/72 H 12/26/19 12:46 63 12/26/19 11:46 75 12/26/19 11:16 73 12/26/19 10:46 76 12/26/19 10:31 76 12/26/19 10:18 79 16 195/82 H 12/26/19 10:03 79 16 198/82 H 12/26/19 07:39 60 18 195/93 H BP BP Pulse Ox 12/26/19 18:05 194/84 H 12/26/19 18:00 12/26/19 17:40 12/26/19 17:20 12/26/19 17:00 12/26/19 16:40 12/26/19 16:20 12/26/19 16:00 12/26/19 15:40 12/26/19 15:20 12/26/19 15:00 12/26/19 14:40 12/26/19 14:20 12/26/19 14:04 12/26/19 12:46 159/80 H 12/26/19 11:46 197/74 H 12/26/19 11:16 194/81 H 12/26/19 10:46 199/78 H 12/26/19 10:31 165/76 H 12/26/19 10:18 94 12/26/19 10:03 92 12/26/19 07:39 96 PG Care Time/CCT Total # of Minutes Spent Total Time Spent with Patient: Total time spent is greater than 50% in coordination of care (as documented) at patient's floor/unit and/or counseling patient: Coding Level of Care Code 48013 Subseq Hosp Care Lvl 3 Diagnoses ESRD (end stage renal disease) N18.6 CKD (chronic kidney disease), stage V N18.5 Anemia D64.9 Anemia type: unspecified type HTN (hypertension) I10 Hypertension type: essential hypertension (1) Anemia Anemia type: unspecified type Qualified Code(s): D64.9 - Anemia, unspecified (2) HTN (hypertension) Hypertension type: essential hypertension Qualified Code(s): I10 - Essential (primary) hypertension
[2019-12-26] MEDS ORDERED: ATORVASTATIN 40 MG TAB PO SCH (21:00)
[2019-12-26] MEDS: NEPHROCAPS PO SCH (21:04)
--- NOTE | 2019-12-27 06:15 | Electrocardiogram Report ---
Test Reason : Blood Pressure : / mmHG Vent. Rate : 061 BPM Atrial Rate : 061 BPM P-R Int : 212 ms QRS Dur : 120 ms QT Int : 446 ms P-R-T Axes : 033 052 055 degrees QTc Int : 448 ms Sinus rhythm with 1st degree A-V block with occasional Premature ventricular complexes Non-specific intra-ventricular conduction delay Borderline ECG When compared with ECG of 25-DEC-2019 06:26, Premature ventricular complexes are now Present Confirmed by Sylvester Jon ([id number]) on 12/27/2019 6:14:58 AM Referred By: REFERRED SELF Confirmed By:Sylvester Jon
[2019-12-27 07:15] LABS: BUN Creatinine Ratio 8.1 (10-20); Calcium 8.8 mg/dl (8.5-10.1); Creatinine Clr Calc Pharmacy 19.3 ml/min; Est GFR (African American) 12.9; Est GFR (Non-African American) 11.2; Potassium 4.4 mmol/L (3.5-5.1)
[2019-12-27] MEDS: SERTRALINE HCL 50 MG TABLET PO SCH (07:54)
[2019-12-27] MEDS: FUROSEMIDE 80 MG TAB PO SCH (07:55)
[2019-12-27] MEDS: cloNIDine HCL 0.1 MG TAB PO SCH (07:55)
[2019-12-27] MEDS: TAMSULOSIN HCL 0.4 MG CAP PO SCH (07:56)
[2019-12-27] MEDS: CLOPIDOGREL BISULFATE 75 MG TAB PO SCH (07:56)
[2019-12-27] MEDS: AMIODARONE 200 MG TAB PO SCH (07:56)
[2019-12-27] MEDS: ASPIRIN 81 MG ECTAB PO SCH (07:57)
[2019-12-27] MEDS: SEVELAMER HCL 800 MG TABLET PO SCH ×2 (07:57→11:52)
[2019-12-27] MEDS: carvediloL 6.25 MG TAB PO SCH (07:58)
[2019-12-27] MEDS: HydrALAZINE TAB 50 MG TAB PO SCH ×2 (07:58→11:52)
[2019-12-27] MEDS: HEPARIN SOD 5,000 UNIT/0.5 ML VIAL SQ SCH (07:59)
[2019-12-27] MEDS: INSULIN GLARGINE SOLOSTAR 100 UNITS/ML 3 ML PEN SQ SCH (08:01)
[2019-12-27] MEDS: INSULIN ASPART 100 UNITS/ML 3 ML PEN SC SCH ×2 (08:02→11:53)
[2019-12-27] MEDS: AMLODIPINE BESYLATE 5 MG TAB PO SCH (08:03)
--- NOTE | 2019-12-27 09:52 | Cardiology Progress Note ---
Date of Service December 27, 2019 Assessment & Plan (1) CAD (coronary artery disease): (2) S/P coronary artery stent placement: (3) Abnormal stress ECG: (4) Elevated troponin: (5) Exertional angina: (6) Paroxysmal atrial fibrillation: (7) Sinus node dysfunction: (8) HTN (hypertension): (9) Hypercholesterolemia: ASSESSMENT/PLAN: 1. Angina/ abnormal stress ECG : Underwent PCI 12/27/2019 of ostial/proximal LAD. No further angina. 2. CAD s/p LAD PCI: Underwent ostial/proximal LAD PCI on 12/27/2019, overlapping with prior mid LAD stent. Continue dual anti-platelet therapy. Continue beta-ginger. Continue high-intensity statin therapy. He feels much better following PCI. 3. Elevated troponin: Nondiagnostic for OK but given other findings. 4. Paroxysmal AFib: On amiodarone as per electrophysiology. Deemed to be a poor anticoagulation candidate by electrophysiology. Followed by Dr. Khoury. 5. Sinus node dysfunction: Had conversion pauses in the past. On amiodarone to help avoid atrial arrhythmia and therefore conversion pauses. Follow with EP. loop recorder in place. 6. Hypertension: Blood pressure was significantly elevated yesterday and improved today but remains elevated. Amlodipine was increased by Nephrology. Could further increase hydralazine. Heart rate low 60s and amiodarone was just started earlier this hospitalization so therefore beta-ginger is not being titrated at this time. Will defer further adjustment to his antihypertensive regimen to Nephrology. Discussed with Dr. Richard. 7. Dyslipidemia: Continue high-intensity statin therapy. 8. CKD on dialysis: Followed by Nephrology. 9. Disposition: Okay for discharge from a cardiac perspective if he can ambulate in the hallway without anginal symptoms. Follow-up in the office with Dr. Khoury or isabel Hedrick in 1-2 weeks. Patient care and recommendations di scussed with Dr. Taylor and Dr. Richard, as well as his primary postal transportation clerk, Dr. Khoury. Admission and Anticipated Discharge Date Admission Date: December 24, 2019 Subjective Yesterday he underwent PCI of his ostial /proximal LAD. He feels much better today. He denies chest pain, shortness of breath, syncope, near-syncope, palpitations, or bleeding. He has not ambulated much in the hallway. Nursing staff was asked to help him walk in the hallway to ensure that he is able to do so without angina. Blood pressure was elevated yesterday. Adjustments have been made by Nephrology. Review of systems: As above. Physical Exam Physical Exam: Gen.: No acute distress. Alert and oriented. HEENT: Anicteric sclera. Neck: No JVD but thick neck. Cardiac: Regular. Normal S1-S2. 1/6 systolic murmur. No rubs or gallops. Pulmonary: Clear to auscultation bilaterally without wheezes, rales, or rhonchi. Abdomen: Obese. Soft, nontender, nondistended, with normoactive bowel sounds. No bruits noted. Extremities: 2+ left radial pulse. Left radial catheterization site is clean, dry, and intact without erythema or discharge. 2+ posterior tibialis pulses bilaterally. 1+ right pedal edema. Trace left lower extremity pedal edema. No cyanosis. Psychiatric: Affect appears appropriate. Results & Data ([facility]) Vital Signs (Past 12 Hours) Vital Signs Temp Pulse Pulse Resp BP Pulse Ox 12/27/19 07:38 36.6 C 61 19 164/85 H 92 12/27/19 03:02 37 C 61 18 160/73 H 94 12/27/19 00:00 72 12/26/19 23:19 36.6 C 61 18 152/66 H 95 Laboratory Results Laboratory Results - last 24 hr 12/26/19 12/26/19 12/26/19 09:22 09:43 11:46 Activ Coag Time Kaolin 230 H 252 H Sodium Potassium Chloride Carbon Dioxide Anion Gap BUN Creatinine Est Cr Clr Drug Dosing Est GFR ( Amer) Est GFR (Non-Af Amer) BUN/Creatinine Ratio Glucose POC Glucose 157 H Calcium 12/26/19 12/26/19 12/27/19 18:24 20:02 05:47 Activ Coag Time Kaolin Sodium 136 Potassium 4.4 Chloride 101 Carbon Dioxide 28 Anion Gap 8.0 BUN 40 H Creatinine 4.97 H* D Est Cr Clr Drug Dosing 19.3 Est GFR ( Amer) 12.9 Est GFR (Non-Af Amer) 11.2 BUN/Creatinine Ratio 8.1 L Glucose 154 H POC Glucose 126 H 186 H Calcium 8.8 12/27/19 07:06 Activ Coag Time Kaolin Sodium Potassium Chloride Carbon Dioxide Anion Gap BUN Creatinine Est Cr Clr Drug Dosing Est GFR ( Amer) Est GFR (Non-Af Amer) BUN/Creatinine Ratio Glucose POC Glucose 158 H Calcium Diagnostic Findings Telemetry personally reviewed: Sinus rhythm. No arrhythmia. Medications Administered Current Inpatient Medications Acetaminophen (Tylenol) 650 mg PO Q4H PRN PRN Reason: Pain or Fever Stop: 01/23/20 08:42 Albuterol (Ventolin Hfa) 2 puffs INH Q6H PRN PRN Reason: Shortness Of Breath Stop: 01/23/20 08:42 Amiodarone HCl (Cordarone) 100 mg PO DAILY ANTONY Stop: 01/24/20 08:59 Last Admin: 12/27/19 07:56 Dose: 100 mg Documented by: Amlodipine Besylate (Amlodipine Besylate 5 Mg Tab) 5 mg PO BID ANTONY Stop: 01/25/20 19:44 Last Admin: 12/27/19 08:03 Dose: 5 mg Documented by: Aspirin (Ecotrin Ectab) 81 mg PO DAILY ANTONY Stop: 01/24/20 08:59 Last Admin: 12/27/19 07:57 Dose: 81 mg Documented by: Atorvastatin Calcium (Atorvastatin 40 Mg Tab) 40 mg PO PM ANTONY Stop: 01/25/20 20:59 Last Admin: 12/26/19 20:11 Dose: 40 mg Documented by: Carvedilol (Coreg) 6.25 mg PO BID ANTONY Stop: 01/23/20 20:59 Last Admin: 12/27/19 07:58 Dose: 6.25 mg Documented by: Clonidine HCl (Catapres) 0.1 mg PO QPM ANTONY Stop: 01/23/20 20:59 Last Admin: 12/26/19 20:10 Dose: 0.1 mg Documented by: Clonidine HCl (Catapres) 0.2 mg PO QAM ANTONY Stop: 01/24/20 08:59 Last Admin: 12/27/19 07:55 Dose: 0.2 mg Documented by: Clopidogrel Bisulfate (Plavix) 75 mg PO DAILY ANTONY Stop: 01/24/20 08:59 Last Admin: 12/27/19 07:56 Dose: 75 mg Documented by: Dextrose (Dextrose 50%) 25 - 50 ml IV UD PRN; Protocol PRN Reason: Hypoglycemia Protocol Stop: 01/23/20 08:42 Furosemide (Lasix) 80 mg PO SuMoWeFr@0900,1700 ANTONY Stop: 01/23/20 09:44 Last Admin: 12/27/19 07:55 Dose: 80 mg Documented by: Glucagon (Glucagen) 1 mg SQ UD PRN; Protocol PRN Reason: Hypoglycemia Protocol Stop: 01/23/20 08:42 Glucose (Dex4 Glucose) 4 - 8 tabs PO UD PRN; Protocol PRN Reason: Hypoglycemia Protocol Stop: 01/23/20 08:42 Glucose (Glucose 40%) 15 - 30 gm PO UD PRN; Protocol PRN Reason: Hypoglycemia Protocol Stop: 01/23/20 08:42 Heparin Sodium (Porcine) (Heparin Sodium (Porcine)) 5,000 units SQ Q12 ANTONY Stop: 01/23/20 20:59 Last Admin: 12/27/19 07:59 Dose: 5,000 units Documented by: Hydralazine HCl (Apresoline) 50 mg PO TID ANTONY Stop: 01/23/20 13:59 Last Admin: 12/27/19 07:58 Dose: 50 mg Documented by: Insulin Aspart (Insulin Aspart 100 Units/Ml 3 Ml Pen) 0 units SC ACHS [facility]; Protocol Stop: 01/23/20 11:29 Last Admin: 12/27/19 08:02 Dose: 6 units Documented by: Insulin Glargine (Insulin Glargine Solostar 100 Units/Ml 3 Ml Pen) 30 units SQ QAM [facility]; Protocol Stop: 01/24/20 08:59 Last Admin: 12/27/19 08:01 Dose: 30 units Documented by: Miscellaneous (Carbohydrates For Hypoglycemia) 15 - 30 gm PO UD PRN PRN Reason: Hypoglycemia Protocol Stop: 01/23/20 08:42 Miscellaneous Information (Consult Glycemic Management Pharmacy) 1 ea N/A UD PRN PRN Reason: Consult Stop: 01/23/20 09:31 Morphine Sulfate (Morphine Sulfate) 2 mg IV Q30M PRN PRN Reason: Chest Pain Stop: 01/07/20 08:42 Nitroglycerin (Nitrostat) 0.4 mg SL UD PRN PRN Reason: Chest Pain Stop: 01/23/20 08:42 Ondansetron HCl (Zofran) 4 mg IV Q6H PRN PRN Reason: Nausea Stop: 01/23/20 08:42 Sertraline HCl (Zoloft) 25 mg PO QAM [facility] Stop: 01/24/20 08:59 Last Admin: 12/27/19 07:54 Dose: 25 mg Documented by: Sevelamer HCl (Renagel) 800 mg PO TIDM [facility] Stop: 01/23/20 11:59 Last Admin: 12/27/19 07:57 Dose: 800 mg Documented by: Tamsulosin HCl (Flomax) 0.4 mg PO QAM [facility] Stop: 01/24/20 08:59 Last Admin: 12/27/19 07:56 Dose: 0.4 mg Documented by: Vitamin B Complex/Folic Acid (Nephrocaps) 1 cap PO QPM [facility] Stop: 01/23/20 20:59 Last Admin: 12/26/19 21:04 Dose: 1 cap Documented by: PG Care Time/CCT Total # of Minutes Spent Total Time Spent with Patient: Total time spent is greater than 50% in coordination of care (as documented) at patient's floor/unit and/or counseling patient: Coding Level of Care Code 45592 Subseq Hosp Care Lvl 3 Diagnoses CAD (coronary artery disease) I25.10 Associated angina: without angina Coronary Disease-Associated Artery/Lesion type: mohegan artery [place] vs. transplanted heart: mohegan heart S/P coronary artery stent placement Z95.5 Abnormal stress ECG R94.39 Elevated troponin R79.89 Exertional angina I20.8 Paroxysmal atrial fibrillation I48.0 Sinus node dysfunction I49.5 HTN (hypertension) I10 Hypertension type: essential hypertension Hypercholesterolemia E78.00 (1) CAD (coronary artery disease) Associated angina: without angina Coronary Disease-Associated Artery/Lesion type: mo[place]gan artery [place] vs. transplanted heart: mohegan heart Qualified Code(s): I25.10 - Atherosclerotic heart disease of mohegan coronary artery without angina pectoris (2) HTN (hypertension) Hypertension type: essential hypertension Qualified Code(s): I10 - Essential (primary) hypertension
--- NOTE | 2019-12-27 11:04 | Nephrology Progress Note ---
Date of Service December 27, 2019 Assessment & Plan (1) ESRD (end stage renal disease): TTS schedule. AVF functioning well. EDW 119.5. Presented with notably hypervolemic. Attempted to challenge with additional UF during HD. EDW has not been adjusted. The importance of limiting daily fluid intake to less than 1 liter in order to minimize inter dialytic weight gain was stressed. I contacted the patient's dialysis unit. They expect Peter for treatment tomorrow and will assist in arranging transportation. There is no required change in his dialysis prescription. (2) CKD (chronic kidney disease), stage V: Attributed to diabetes and hypertension. Dialysis dependent. Unfortunately does not make a significant amount of urine. Inter dialytic weight gains have been excessive. The importance of of a renal diet and daily fluid reinforced. Remains on Renvela as a phosphate binder as well as a low phosphorus diet. Medications are appropriate for dialysis. (3) Anemia: Chronic, stable. No current need for additional MAYLIN therapy. (4) HTN (hypertension): Amlodipine increased to 5 milligrams twice daily. Blood pressure was reasonable this morning. We will continue to monitor and increase hydralazine as needed. I would defer Jaquan is beta-ginger at this time without discussion with the cruise coordinator. Dr. Jon agreed with this plan of care. Overall, we have seen improvement with the current adjustments have been made. Admission and Anticipated Discharge Date Admission Date: December 24, 2019 Subjective Yesterday he underwent PCI of his ostial /proximal LAD. No chest pain this AM. Denies dyspnea. No complications with HD yesterday. Potential discharge home later today. I reviewed the plan of care with Dr. Taylor and Dr. Jon. Review of Systems Review of Systems: All systems reviewed & are unremarkable except as noted in HPI & below Physical Exam Constitutional: well developed; no acute distress Eyes: no scleral abnormality and no corneal abnormality ENMT: Mouth: no oral mucosal abnormality and oral mucous membranes not dry Neck: normal visual inspection and trachea midline Respiratory: normal respiratory effort Auscultation: lungs clear to auscultation bilaterally and + rales Cardiovascular: Rate/Rhythm: regular rate Heart Sounds: normal S1 and normal S2 Extremities: + edema and + AV fistula Musculoskeletal: Extremities: no cyanosis and no clubbing Skin: normal turgor; no lesions Neurologic: Motor/Sensory: no tremor and no asterixis Psychiatric: Orientation: alert and oriented x 3 Results & Data ([facility]) Vital Signs (Past 12 Hours) Vital Signs Temp Pulse Pulse Pulse Pulse Pulse Resp 12/27/19 10:26 36.6 C 75 61 63 70 19 12/27/19 07:38 36.6 C 61 19 12/27/19 03:02 37 C 61 18 12/27/19 00:00 72 12/26/19 23:19 36.6 C 61 18 BP BP BP Pulse Ox 12/27/19 10:26 123/71 165/76 H 164/85 H 92 12/27/19 07:38 164/85 H 92 12/27/19 03:02 160/73 H 94 12/27/19 00:00 12/26/19 23:19 152/66 H 95 Laboratory Results Laboratory Results - last 24 hr 12/26/19 12/26/19 12/26/19 11:46 18:24 20:02 Sodium Potassium Chloride Carbon Dioxide Anion Gap BUN Creatinine Est Cr Clr Drug Dosing Est GFR ( Amer) Est GFR (Non-Af Amer) BUN/Creatinine Ratio Glucose POC Glucose 157 H 126 H 186 H Calcium 12/27/19 12/27/19 05:47 07:06 Sodium 136 Potassium 4.4 Chloride 101 Carbon Dioxide 28 Anion Gap 8.0 BUN 40 H Creatinine 4.97 H* D Est Cr Clr Drug Dosing 19.3 Est GFR ( Amer) 12.9 Est GFR (Non-Af Amer) 11.2 BUN/Creatinine Ratio 8.1 L Glucose 154 H POC Glucose 158 H Calcium 8.8 PG Care Time/CCT Total # of Minutes Spent Total Time Spent with Patient: Total time spent is greater than 50% in coordination of care (as documented) at patient's floor/unit and/or counseling patient: Coding Level of Care Code 92850 Subseq Hosp Care Lvl 3 Diagnoses ESRD (end stage renal disease) N18.6 CKD (chronic kidney disease), stage V N18.5 Anemia D64.9 Anemia type: unspecified type HTN (hypertension) I10 Hypertension type: essential hypertension (1) Anemia Anemia type: unspecified type Qualified Code(s): D64.9 - Anemia, unspecified (2) HTN (hypertension) Hypertension type: essential hypertension Qualified Code(s): I10 - Essential (primary) hypertension
--- NOTE | 2019-12-27 11:49 | Pharmacy Report ---
Pharmacy Glycemic Short Note 2 - Date of Service December 27, 2019 - Glycemic Short BSG Results (Last 24 hours): 12/26/19 12/26/19 12/26/19 11:46 18:24 20:02 Glucose POC Glucose 157 H 126 H 186 H 12/27/19 12/27/19 05:47 07:06 Glucose 154 H POC Glucose 158 H ASSESSMENT: 12/26: * Patient received a total of 47 units of insulin yesterday * 30 units basal + 17 units bolus * BSGs ranged 126-189 mg/dL * Fasting BSG this AM is slightly above goal for inpatient targets at 158 mg/dl. Hesitant to increase basal insulin though since regimen is already weighted heavily towards basal insulin. If BSG continues to trend upwards will consider increasing basal by 10-20% * Majority of prandial BSGs are in goal range - no changes needed to CF/CR. 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 * Basal insulin * Lantus 30 units daily * Bolus insulin * NovoLog per scale ACHS or Q6hrs while NPO * Goal Range: Low 110 mg/dL - High 140 mg/dL * Correction Factor: 30 mg/dL/unit * Nutritional / Prandial insulin per carb ratio of 1 unit per 10 grams CHO consumed PLAN FOR DISCHARGE: * A1c of 7% on admission * However, this result is likely somewhat unreliable in ESRD patients d/t interactions between the A1c analyzing technique and high levels of urea in ESRD, reduced RBC life span, iron deficiency anemia, and EPO administration. * Patient's insulin regimen at home heavily basal weighted. Would be reasonable to continue home diabetic regimen as long as patient not reporting low BSGs
--- NOTE | 2019-12-27 18:15 | Discharge Summary ---
Date of Service December 27, 2019 Admission HPI Per Admitting Provider 63-year-old male who presents via EMS from home after complaints of acute onset of left-sided chest pain and shortness of breath. Patient states he woke up early to get ready for dialysis and initially felt fine. Patient states when he walked outside to wait for his transportation, he suddenly had sharp left-sided chest pain. At that point time he then noticed that he felt slightly short of breath which could be from the need for dialysis but he attributes the shortness of breath to the pain. Patient typically goes to dialysis Monday, , and Monday. Patient denies missing any recent dialysis. 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 Patient states he does still make urine, he takes Lasix twice daily on his nondialysis days. No recent increased lower extremity edema. Patient denies any change in his chronic cough, no change in sputum. No recent fevers chills, nasal congestion, rhinorrhea. Patient denies any known sick contacts including any coronavirus positive individual. Patient denies any medication indiscretion. Patient states he does have a history of atrial fibrillation, recently was initiated on amiodarone as an outpatient but has not yet filled this prescription. He does take aspirin and Plavix but no formal anticoagulation. Patient does state the pain is worse with turning to the right, slightly eases with trying to turn to his left. Patient states he cannot lay flat and has not done so for quite some time due to his umbilical hernia. Patient does feel that his breathing is worse with exertion once again is due for dialysis session. The emergency room was recommended he be brought in because he is elevation of troponin. There are no acute EKG changes seen. Principal Diagnosis N STEMI Unstable angina Abnormal stress test Normal left heart catheter resulting in stent placement in LAD Discharge Exam The patient appeared well Vital signs as documented. Lungs are clear to auscultation and appear unlabored Cardiac exam, Rhythm is regular.. No murmurs, rubs or gallops. Abdominal exam reveals normal bowel sounds, soft non tender, no masses Extremities are nonedematous and both pedal pulses are normal. Neurologic exam is alert and oriented, no focal loss of strength or sensation Skin is without bruises or rashes catheterization site is clean dry and intact distal capillary refill and sensations intact Psychologically is without concerns for anxiety or depression Discharge Data Allergies Allergy/AdvReac Type Severity Reaction Status Date / Time ragweed pollen Allergy Mild [place] Verified 12/24/19 05:59 Consultations 12/24/19 07:15 ED Decision to Admit Stat 12/24/19 08:43 Consult Nephrology Routine 12/25/19 12:19 Consult Cardiology Routine 12/26/19 10:02 Consult Cardiac Rehabilitation Routine Procedures Performed Operation Date: 12/26/19 08:00 Actual Procedures p Drug Eluting Stent SGl Vessel - Bunny Ochoa MD s Cath, Left with Cors and Vent - Sylvester Jon MD s IVUS Coronary Single Vessel - Bunny Ochoa MD s Cineradiography w/Routine Exam - Bunny Ochoa MD Ordered Studies 12/26/19 06:49 CL Cath Imgs for PACS use only Stat 12/26/19 13:20 CL IVUS Coronary Single Vessel Routine Hospital Course (1) Chest pain: Patient had a significant dyspneic response to stress testing with profound EKG changes post procedure will be set up for heart catheterization 12/26/19 Underwent ostial/proximal LAD PCI 12/26/19 overlapping with prior mid LAD stent. Continue dual anti-platelet therapy typically on coreg and norvasc, will continue is on atrovastatin will increase to 40 ESR is low essentially ruling out infectious endocarditis (2) Paroxysmal atrial fibrillation: Pt in normal sinus rhythm, last office cardiology visit 12/18/19 started amiodarone due to loop recorder evidence of atrial fibrillation and flutter seen, however pt did not yet pecan picker RX, will start amiodarone this stay while pt is on tele will be some discussion whether patient will need anticoagulation however the patient does follow with electrophysiology interventional cardiology does feel best that the patient should follow-up with them prior to initiating long-term anticoagulation. He will be on dual antiplatelet therapy at this time (3) ESRD (end stage renal disease): Pt will have dialysis as per his usual schedule he remains euvolemic to examination dialysis is Monday (4) BPH (benign prostatic hyperplasia): Pt states he still does make urine, but typically does not take lasix on dialysis days (5) Depression: continues on zoloft 25 daily, patient was tearful after discussion of his heart catheterization (6) Diabetes mellitus type 2 in obese: Controlled with glargine and ssi (7) Anemia: anemia of chronic disease likely associated with his renal dysfunction Total Time Total Time Spent Total Time Spent (In Minutes): It required greater than 30 minutes to prepare this patient for discharge Discharge Plan Discharge Items Patient Disposition: Home - Self-Care Reason For Visit: CHEST PAIN Discharge Diagnosis: unstable angina non St elevated SC coronary stent placed Activity Comment: no inentional exercise until seen by heart doctor in follow up Non-emergency contact: Primary Care Provider and Endbander Call non-emergency contact if: you have any medication questions and your symptoms worsen Follow-up/Referrals: Shiv Gallardo MD [Primary Care Provider] - (Dr gallardo"s office will call Monday to set up appoinment with you. Appointment with Monty limon 01/07/20 at 3pm ) Diet: Heart Healthy Addtl Attending Provider Instructions: ACTIVITY RECOMMENDATIONS: Excess manipulation of the wrist should be avoided for the next 24-48 hours. * No lifting over 2 pounds (approximately a 1/2 gallon of milk) with the utilized arm for 24 hours. * No strenuous activity such as bowling or tennis for 3 days. * Keep the site of the procedure covered with a bandage for 24 hours. *You may shower the day after the procedure. Do not take a tub bath or submerge the puncture site in water for the next 3 days. *Do not operate any motorized equipment for 3 days. SPECIAL CARE INSTRUCTIONS: The site may be slightly bruised and sore following your procedure. Should any of the following occur, contact the Dr. who performed your procedure. 1. Redness/inflammation, swelling, chills, or fever, or colored drainage at procedure site within 3-7 days after your procedure. 2. Coldness, discoloration, ongoing numbness, severe pain, or swelling. Expect mild tingling of hand and tenderness at the puncture site for up to three days. If this persists beyond three days, or other symptoms develop, notify the Dr. who performed your procedure. BLEEDING: If the procedure site on your wrist begins to bleed, do not panic 1. Place 1 or 2 fingers firmly just slightly above the insertion site to stop the bleeding. You may be able to feel your pulse as you hold pressure. 2. Lift your finger after 5 minutes to see if the bleeding has stopped. 3. Once the bleeding has stopped, gently wipe the wrist area clean with a bandage. * If the bleeding from your wrist does not stop after 10 minutes, or if there is a large amount of bleeding or spurting, call 911 (do not drive yourself to the hospital). SKIN IRRITATION: * You may experience some redness and/or swelling in the area where radiation was administered. If any skin irritation occurs, please contact your family physician. FOLLOW UP VISIT: Keep any scheduled doctor appointments. Pending Studies at Discharge: No Stand-Alone Forms: My [facility], Smoking Cessation Medications and DC Order Prescriptions: New nitroglycerin [Nitrostat] 0.4 mg Tablet, Sublingual 0.4 mg sublingual UD PRN (Reason: chest pain) Qty: 20 RF: 0 Continued amiodarone 200 mg tablet See Rx Instructions .ROUTE .COMPLEX Qty: 45 RF: 3 furosemide [Lasix] 40 mg Tablet 80 mg PO BID RF: 0 hydralazine 100 mg Tablet 50 mg PO TID RF: 0 insulin aspart U-100 [Novolog PenFill U-100 Insulin] 100 unit/mL Cartridge 10 unit SUBCUT AC RF: 0 tamsulosin 0.4 mg Capsule 0.4 mg PO QAM RF: 0 albuterol sulfate 90 mcg/actuation Hfa Aerosol Inhaler 2 puff INHALATION Q6H PRN (Reason: Shortness Of Breath) RF: 0 sertraline 50 mg Tablet 25 mg PO QAM RF: 0 loratadine 10 mg Tablet 10 mg PO DAILY PRN (Reason: Allergy Symptoms) RF: 0 clonidine HCl 0.1 mg tablet 0.1 mg PO .COMPLEX RF: 0 amlodipine 10 mg tablet 5 mg PO QAM RF: 0 carvedilol [Coreg] 12.5 mg tablet 6.25 mg PO BID RF: 0 clopidogrel [Plavix] 75 mg Tablet 75 mg PO DAILY RF: 0 aspirin [Aspir-81] 81 mg Tablet,Delayed Release (Dr/Ec) 81 mg PO DAILY RF: 0 Lantus Solostar U-100 Insulin 100 unit/mL (3 mL) insulin pen 50 unit SUBCUT BID RF: 0 sevelamer carbonate [Renvela] 800 mg tablet 800 mg PO TIDM RF: 0 ProRenal 8 mg iron-800 mcg-1,000 unit tablet 1 tab PO QPM RF: 0 Changed atorvastatin 40 mg Tablet 40 mg PO PM Qty: 30 RF: 5 Discharge Orders: Discharge Order (Routine); Ordered 12/27/19 Ordered By: Prince Taylor Admission Data Admit Date/Time: 12/24/19 07:54 Attending Provider: Prince Taylor Admit Provider: Prince Taylor Primary Care Provider: Shiv Gallardo Other Providers: Prince Taylor ; Tobias Richard ; Sylvester Jon Other Interventions: Discharge Summary Assessment (RN) Last Done: 12/27/19 10:26 Coding Level of Care Code D/C Day Management >30 mins Diagnoses Chest pain R07.9 Chest pain type: unspecified Paroxysmal atrial fibrillation I48.0 ESRD (end stage renal disease) N18.6 BPH (benign prostatic hyperplasia) N40.0 Lower urinary tract symptom presence: symptoms absent Depression F33.9 Depression Type: major depressive disorder Major depression recurrence: recurrent Active/Remission status: remission status unspecified Diabetes mellitus type 2 in obese E11.69; E66.9 Anemia D64.9 Anemia type: unspecified type
== END 2019-12-27 12:59 | disposition home or self-care (01) ==
LOC: ED 04:54 → INTOOBSV 07:54 → SUATTDRO 07:54 → 2S 07:54

== ENCOUNTER 2020-01-04 11:08 | Observation (INO) ==
[2020-01-04 12:23] LABS: Basophils # (auto) 0.07 K/uL (0-0.2); Basophils % (auto) 0.4 %; Eosinophils # (auto) 0.56 K/uL (0-0.5); Hematocrit (blood only) 39.3 % (42-52); Hemoglobin 12.7 g/dL (14.0-18.0); Immature Granulocytes # (auto) 0.25 K/uL (0.00-0.02); Immature Granulocytes % (auto) 1.3 %; Lymphocytes # (auto) 1.09 K/uL (1.2-3.4); Lymphocytes % (auto) 5.7 %; Mean Corpuscular Hemoglobin 31.8 pg (25-34); Mean Corpuscular Hgb Conc 32.3 g/dL (32-36); Mean Corpuscular Volume 98.5 fL (80-100); Mean Platelet Volume 10.8 fL (7.4-10.4); Monocytes # (auto) 1.39 K/uL (0.11-0.59); Monocytes % (auto) 7.3 %; Neutrophils # (auto) 15.62 K/uL (1.4-6.5); Neutrophils % (auto) 82.3 %; Platelet Count 266 K/uL (130-400); RDW Standard Deviation 53.4 fL (36.4-46.3); Red Blood Count 3.99 M/uL (4.7-6.1); White Blood Count 18.98 K/uL (4.8-10.8)
--- NOTE | 2020-01-04 12:30 | XRay Report ---
XR chest 1V portable HISTORY: weakness COMPARISON: Chest 12/24/2019. FINDINGS: The heart remains mildly enlarged. A few left basilar densities consistent with scarring or atelectasis remain unchanged. Otherwise, lungs are clear. No pleural effusions. No pneumothorax. IMPRESSION: No significant change compared to the prior study. No acute process. Stable mild cardiomegaly. ACT 112: Negative or not required by law. Electronically signed by: Delfin Chan M.D. 01/04/2020 12:29 PM
[2020-01-04 12:32] LABS: Albumin Level 3.5 gm/dl (3.4-5.0); BUN Creatinine Ratio 7.1 (10-20); Calcium 10.1 mg/dl (8.5-10.1); Creatinine Clr Calc Pharmacy 28.2 ml/min; Est GFR (African American) 20.9; Potassium 4.7 mmol/L (3.5-5.1)
[2020-01-04 12:45] LABS: Albumin Globulin Ratio 0.7 (0.9-2); Bilirubin,Total 0.4 mg/dl (0.2-1); Globulin 5.1 gm/dl (2.5-4.0); Total Protein 8.6 gm/dl (6.4-8.2); Troponin I 0.224 ng/ml (0-0.045)
[2020-01-04] MEDS ORDERED: ASPIRIN CHEW 324 MG PO STA (12:55)
--- NOTE | 2020-01-04 14:25 | History & Physical Report ---
Date of Service January 04, 2020 Assessment & Plan (1) Dizziness: Suspect orthostatic after significant amount of fluid removed in dialysis given improvement with . Possibly needs reduction in his blood pressure medication. Will hold hydralazine for now. Needs to continue on carvedilol. Monitor for arrhythmia on telemetry and interrogate pacemaker for arrhythmia during event. (2) ESRD (end stage renal disease): Dialysis MWF. No need for nephrology consult at present. (3) Leukocytosis: No infection by history or on exam. Trend with CBC in a.m.. Suspected stress reaction due to hypotensive episode as above. (4) Elevated troponin: Suspect demand ischemia after excessive fluid removed with dialysis and relative hypotension. We will continue to trend. (5) Paroxysmal atrial fibrillation: Currently in normal sinus rhythm. Interrogate pacemaker as above. (6) Sleep apnea: Notable history of this and on CPAP likely contributing towards his hypertension. (7) HTN (hypertension): Likely his blood pressure will increase given his need for dialysis. Hold amiodarone at present as not taking this at home. Hold hydralazine due to admission for hypotensive episode. Would likely need to restart this as his hypervolemic fluid status returns. Continue amlodipine 5 mg p.o. daily, carvedilol 6.25 mg p.o. twice daily, clonidine 0.2 mg every morning, 0.1 mg at bedtime with hold parameters. (8) CAD (coronary artery disease): Recent NSTEMI with abnormal stress test and drug-eluting stent placed in LAD overlapping prior mid LAD stent. Despite elevated troponin current episode is not consistent with ACS and patient reports compliance with his medication (other than amiodarone) Continue aspirin, clopidogrel, carvedilol, atorvastatin. No SUZANNE inhibitor secondary to CKD stage V (patient still produces urine). (9) Hypercholesterolemia: Atorvastatin 40 mg p.o. every afternoon as above (10) BPH (benign prostatic hyperplasia): Continue tamsulosin 0.4 mg p.o. every morning (11) Diabetes mellitus type 2 in obese: HbA1c in setting of end-stage renal disease on dialysis BSG normal despite missing his usual Lantus 50 units this morning. I suspect his diet is extremely contributory towards his need for insulin at home. However he also alludes to multiple hypoglycemic events therefore likely to need a reduction in his insulin anyway. We will hold off basal insulin at present. NovoLog correction factor only 25 mg/dL/unit. (12) Anemia: Suspect secondary to end-stage renal disease. He appears close to his baseline. Monitor with CBC in a.m. (13) DVT prophylaxis: Heparin 5000 units every 8 hourly Admission and Anticipated Discharge Date Admission Date: 01/04/2020 History of Present Illness Chief Complaint: Presyncope/dizziness Primary Care Provider: Shiv Gallardo MD Angel Solorio is a 69-year-old male with end-stage renal disease on dialysis who presents to the ER via EMS due to a hypotensive episode with associated dizziness after receiving dialysis today. He reports he took 13 pounds of in dialysis. Since his recent discharge on December 26 he has been drinking more water/tea as it is been helping with his tooth pain which would explain his increased weight and need to take of more fluids during dialysis. In the ER his troponin was elevated however he denies any chest pain or shortness of breath. He reports not taking his Lasix this morning which is usual prior to his dialysis. He denies any complete syncopal episode. Reports EMS said his systolic blood pressure was in the 90s which is very low for him. He was given a 250 mL bolus of IV fluids en route to the ER and currently feels back to his baseline. With regards to his medication he missed his Lantus 50 units this morning as sometimes he does not take this if he does not eat many carbs felt his breakfast. He notes he is out of NovoLog therefore does not take this. He has obstructive sleep apnea although is intolerant to CPAP. He still has not received his amiodarone. It is possibly in his post box although this is third of a mile away from his house therefore he has not managed to get it yet. Allergies Allergy/AdvReac Type Severity Reaction Status Date / Time ragweed pollen Allergy Mild [place] Verified 01/04/20 13:07 Home Medications Home Medications Medication Instructions Recorded Confirmed Type albuterol sulfate 2 puff INHALATION Q6H PRN 01/06/19 01/04/20 History furosemide [Lasix] 80 mg PO BID 01/06/19 01/04/20 History hydralazine 50 mg PO TID 01/06/19 01/04/20 History insulin aspart U-100 [Novolog 10 unit SUBCUT AC 01/06/19 01/04/20 History PenFill U-100 Insulin] loratadine 10 mg PO DAILY PRN 01/06/19 01/04/20 History sertraline 25 mg PO QAM 01/06/19 01/04/20 History tamsulosin 0.4 mg PO QAM 01/06/19 01/04/20 History Lantus Solostar U-100 Insulin 50 unit SUBCUT BID 03/06/19 01/04/20 History aspirin [Aspir-81] 81 mg PO DAILY 03/06/19 01/04/20 History carvedilol [Coreg] 6.25 mg PO BID 03/06/19 01/04/20 History clopidogrel [Plavix] 75 mg PO DAILY 03/06/19 01/04/20 History ProRenal 1 tab PO QPM 09/26/19 01/04/20 History sevelamer carbonate [Renvela] 800 mg PO TIDM 09/26/19 01/04/20 History amiodarone 200 mg tablet See Rx Instructions .ROUTE 12/18/19 01/04/20 Rx .COMPLEX #45 tab amlodipine 10 mg tablet 5 mg PO QAM tab 12/18/19 01/04/20 History clonidine HCl 0.1 mg tablet 0.1 mg PO DIRECTED 12/18/19 01/04/20 History atorvastatin 40 mg PO PM #30 tab 12/27/19 01/04/20 Rx nitroglycerin [Nitrostat] 0.4 mg SUBLINGUAL UD PRN #20 tab 12/27/19 01/04/20 Rx Past Med/Surg History Medical History Anemia CAD (coronary artery disease) s/p stent 2018 CHF exacerbation Chronic kidney disease, stage 4 (severe) CKD (chronic kidney disease) Stage 4 Diabetes Dyslipidemia Elevated troponin ESRD (end stage renal disease) HTN (hypertension) Paroxysmal atrial fibrillation Sinus node dysfunction Sleep apnea does not use CPAP Surgical History AV fistula History of loop recorder Implanted 05/01/2019 S/P coronary artery stent placement Family History Other Hypertension Social History Smoking Status: Former smoker Tobacco Type: Cigarettes Cigarettes Per Day: 10; Second Hand Exposure: No; Do You Dip or Chew Tobacco: No; Hx Alcohol Use: No Hx Substance Use: No Preferred Language: Italian Communication Ability: Effective Site Surveyor Required: No Beliefs That Will Affect Care: None marital status: Current Living Situation: Alone How many Children do You have: 0 Feels Safe at Home: Yes Safety Concerns: Feels Safe At This Time Review of Systems Review of Systems: All systems reviewed & are unremarkable except as noted in HPI & below Physical Exam Constitutional: well developed, well nourished and + obese; no acute distress Eyes: + anicteric sclerae; normal pupil size ENMT: Ears: + EAC abnormality (Ingrown hair in left ear canal); no TM abnormality Neck: trachea midline, no thyromegaly Respiratory: normal respiratory effort, lungs clear to auscultation Cardiovascular: Rate/Rhythm: regular rate and regular rhythm Heart Sounds: no murmur Vessels: no JVD Extremities: normal capillary refill and + pedal edema (1+ to mid shins equal bilaterally); no calf tenderness Gastrointestinal (Abdomen): normal bowel sounds, soft, nontender, no hepatosplenomegaly Musculoskeletal: no cyanosis or clubbing, extremities motor strength 5/5 Skin: no rashes, warm and dry Neurologic: moves all extremities and awake; no focal motor deficits and not confused Speech / Cognition: normal speech Motor/Sensory: no tremor and no pronator drift Psychiatric: A+Ox3, euthymic affect Genitourinary: no CVA tenderness Results & Data Results & Data ([facility]) Vital Signs (Past 12 Hours) Vital Signs Temp Pulse Pulse Resp BP BP Pulse Ox 01/04/20 14:06 65 18 115/68 01/04/20 11:21 37.1 C 71 16 106/61 92 Diagnostic Findings XR chest 1V portable IMPRESSION: No significant change compared to the prior study. No acute process. Stable mild cardiomegaly. ECG Indication: other (Presyncope) Rate (beats per minute): 60 Rhythm: normal sinus Comparison ECG Date: from (December 26, 2019) Change: the following changes noted (PVCs no longer present) Code Status & VTE Plan Code Status Full VTE Prophylaxis Plan VTE Prophylaxis will be ordered: Yes PG Care Time/CCT Total # of Minutes Spent Total Time Spent with Patient: Total time spent is greater than 50% in coordination of care (as documented) at patient's floor/unit and/or counseling patient: Coding Level of Care Code 62948 Initial Inpt Care Lvl 3 Diagnoses Dizziness R42 ESRD (end stage renal disease) N18.6 Leukocytosis D72.829 Elevated troponin R79.89 Paroxysmal atrial fibrillation I48.0 Sleep apnea G47.30 Sleep apnea type: unspecified type HTN (hypertension) I10 Hypertension type: essential hypertension CAD (coronary artery disease) I25.10 Associated angina: without angina Coronary Disease-Associated Artery/Lesion type: [place] artery [place] vs. transplanted heart: [place] heart Hypercholesterolemia E78.00 BPH (benign prostatic hyperplasia) N40.0 Lower urinary tract symptom presence: symptoms absent Diabetes mellitus type 2 in obese E11.69; E66.9 Anemia D64.9 Anemia type: unspecified type DVT prophylaxis Z29.9 (1) BPH (benign prostatic hyperplasia) Lower urinary tract symptom presence: symptoms absent Qualified Code(s): N40.0 - Benign prostatic hyperplasia without lower urinary tract symptoms (2) Sleep apnea Sleep apnea type: unspecified type Qualified Code(s): G47.30 - Sleep apnea, unspecified (3) CAD (coronary artery disease) Associated angina: without angina Coronary Disease-Associated Artery/Lesion type: [place] artery [place] vs. transplanted heart: [place] heart Qualified Code(s): I25.10 - Atherosclerotic heart disease of [place] coronary artery without angina pectoris (4) Anemia Anemia type: unspecified type Qualified Code(s): D64.9 - Anemia, unspecified (5) HTN (hypertension) Hypertension type: essential hypertension Qualified Code(s): I10 - Essential (primary) hypertension
[2020-01-04] MEDS ORDERED: SEVELAMER HCL 800 MG TABLET PO ONE (14:30)
[2020-01-04] MEDS ORDERED: POLYETHYLENE (MIRALAX) 17 GM PACK PO PRN (16:24)
[2020-01-04] MEDS ORDERED: ALUMINUM/MAGNESIUM SUSP 30 ML UDC PO PRN (16:24)
[2020-01-04] MEDS ORDERED: NITROGLYCERIN SL 0.4 MG/TAB TAB SL PRN (16:24)
[2020-01-04] MEDS ORDERED: LORATADINE 10 MG TAB PO PRN (16:24)
[2020-01-04] MEDS: FUROSEMIDE 80 MG TAB PO SCH (19:22)
[2020-01-04] MEDS: SEVELAMER HCL 800 MG TABLET PO SCH (19:22)
[2020-01-04] MEDS: carvediloL 6.25 MG TAB PO SCH (20:11)
[2020-01-04] MEDS: CEROVITE ADV FORMULA TAB PO SCH (20:11)
[2020-01-04] MEDS: ATORVASTATIN 40 MG TAB PO SCH (20:11)
[2020-01-04] MEDS: cloNIDine HCL 0.1 MG TAB PO SCH (20:11)
[2020-01-04] MEDS ORDERED: GLUCOSE 10 TABS/TUBE PO PRN (20:56)
[2020-01-04] MEDS ORDERED: CARBOHYDRATES FOR HYPOGLYCEMIA PO PRN (20:56)
[2020-01-04] MEDS ORDERED: DEXTROSE 50% 50 ML SYRINGE IV PRN (20:56)
[2020-01-04] MEDS ORDERED: GLUCOSE 40% GEL 15 GM TUBE PO PRN (20:56)
[2020-01-04] MEDS ORDERED: GLUCAGON FOR INJ 1 MG VIAL SQ PRN (20:56)
[2020-01-04] MEDS: INSULIN ASPART 100 UNITS/ML 3 ML PEN SC SCH (21:13)
[2020-01-04] MEDS: HydrALAZINE TAB 50 MG TAB PO SCH (21:46)
[2020-01-04] MEDS: HEPARIN SOD 5,000 UNIT/0.5 ML VIAL SQ SCH (21:47)
[2020-01-05] MEDS: HEPARIN SOD 5,000 UNIT/0.5 ML VIAL SQ SCH ×3 (06:27→21:13)
[2020-01-05 06:53] LABS: Basophils # (auto) 0.06 K/uL (0-0.2); Basophils % (auto) 0.5 %; Eosinophils # (auto) 0.73 K/uL (0-0.5); Eosinophils % (auto) 5.5 %; Hematocrit (blood only) 36.2 % (42-52); Hemoglobin 11.5 g/dL (14.0-18.0); Immature Granulocytes # (auto) 0.09 K/uL (0.00-0.02); Immature Granulocytes % (auto) 0.7 %; Lymphocytes # (auto) 2.21 K/uL (1.2-3.4); Lymphocytes % (auto) 16.6 %; Mean Corpuscular Hemoglobin 30.7 pg (25-34); Mean Corpuscular Hgb Conc 31.8 g/dL (32-36); Mean Corpuscular Volume 96.8 fL (80-100); Mean Platelet Volume 10.6 fL (7.4-10.4); Monocytes # (auto) 0.71 K/uL (0.11-0.59); Monocytes % (auto) 5.3 %; Neutrophils # (auto) 9.51 K/uL (1.4-6.5); Neutrophils % (auto) 71.4 %; Platelet Count 223 K/uL (130-400); RDW Coefficient of Variation 15.1 % (11.5-14.5); Red Blood Count 3.74 M/uL (4.7-6.1); White Blood Count 13.31 K/uL (4.8-10.8)
[2020-01-05 08:03] LABS: Albumin Globulin Ratio 0.7 (0.9-2); Albumin Level 3.3 gm/dl (3.4-5.0); BUN Creatinine Ratio 8.3 (10-20); Bilirubin,Total 0.4 mg/dl (0.2-1); Calcium 9.1 mg/dl (8.5-10.1); Creatinine Clr Calc Pharmacy 17.8 ml/min; Est GFR (African American) 11.7; Est GFR (Non-African American) 10.1; Globulin 4.4 gm/dl (2.5-4.0); Potassium 5.3 mmol/L (3.5-5.1); Total Protein 7.7 gm/dl (6.4-8.2); Troponin I 0.171 ng/ml (0-0.045)
[2020-01-05] MEDS: AMLODIPINE BESYLATE 5 MG TAB PO SCH (08:53)
[2020-01-05] MEDS: ASPIRIN 81 MG ECTAB PO SCH (08:54)
[2020-01-05] MEDS: carvediloL 6.25 MG TAB PO SCH ×2 (08:54→21:16)
[2020-01-05] MEDS: CLOPIDOGREL BISULFATE 75 MG TAB PO SCH (08:54)
[2020-01-05] MEDS: HydrALAZINE TAB 50 MG TAB PO SCH ×3 (08:54→21:15)
[2020-01-05] MEDS: FUROSEMIDE 80 MG TAB PO SCH ×2 (08:55→17:06)
[2020-01-05] MEDS: SERTRALINE HCL 50 MG TABLET PO SCH (08:55)
[2020-01-05] MEDS: INSULIN ASPART 100 UNITS/ML 3 ML PEN SC SCH ×4 (08:58→21:12)
[2020-01-05] MEDS: cloNIDine HCL 0.1 MG TAB PO SCH ×2 (08:58→21:16)
[2020-01-05] MEDS ORDERED: CALCIUM GLUCONATE 10% 1,000 MG in SODIUM CHLORIDE 0.9% 50 ML IV ONE (09:00)
[2020-01-05] MEDS: SEVELAMER HCL 800 MG TABLET PO SCH ×3 (09:01→17:06)
--- NOTE | 2020-01-05 09:55 | Hospitalist Progress Note ---
Date of Service January 05, 2020 Assessment & Plan (1) Orthostatic dizziness: 69 yo M with ESRD on hemodialysis TTS, hx Aflutter with RVR, paroxysmal AFib, HFpEF, BPH, Depression, CAD, DM2, sleep apnea, HTN, Diverticulitis, ANemia who was admitted for elevated troponin, orthostatic dizziness after receiving dialysis on 01/03. 1) Orthostasis - dizziness resolved after receiving IV fluids in ED ESRD on Hemodialysis - pt tends to drink more fluid than he's supposed to because of jaw pain that is helped by drinking hot tea - TTS dialysis - Cr 3.34 on admission, up to 5.39 next morning. Will likely need dialysis in hospital tomorrow - K 5.5 on admission, no EKG changes, received calcium gluconate for cardiac stabilization Elevated Troponin - 0.224 -> 0.204 -> 0.177, downtrending - most likely demand ischemia in setting of orthostatic hypotension after large volume diuresis at dialysis - no chest pain, no EKG changes Leukocytosis - multiple inflamed teeth on oral exam - pt has been meaning to get his teeth fixed and has an appointment coming up soon to do so - likely gingivitis/abscessed tooth causing WBC reaction CAD/HTN/HFrEF - Hydralazine held in setting of orthostatic hypotension - continued home carvedilol, lasix - continued home atorvastatin, asa DVT ppx: heparin BID FEN/GI: low salt/renal diet Full Code Dispo: Med/Surg with tele (2) Elevated troponin: (3) End-stage renal disease on hemodialysis: (4) Leukocytosis: Admission and Anticipated Discharge Date Admission Date: January 04, 2020 Supervising Physician Co-Signing Physician Notes I personally examined the patient and verified all roman points of history and exam, discussed case, and agree with decision making with Dr Alarcon. feeling ok still maybe a little weak. worried about going home vitals noted nad heent nc at mmm breathing unlabored no accessory muscles good effort orthostasis - improved w fluids hyperkalemia - mild, but given ESRD will want to manage. fluids, miralax. elevated troponin - likely demand myocardial ischemia superimposed on pre- existing CAD made manifest by watershed from orthostasis, as well as poor clearance of trop due to ESRD otherwise as above Subjective Feeling much improved since admission. No complaints this am. [place] dizzy after having 4 hours of dialysis on Monday and called 911 to bring him to the hospital. Review of Systems Constitutional: no fever, no chills, no body aches and no fatigue Respiratory: no cough and no dyspnea Cardiovascular: no chest pain, no dyspnea and no edema Gastrointestinal: no abdominal pain, no nausea, no vomiting, no constipation and no diarrhea/loose stools Physical Exam Constitutional: cooperative; no acute distress and not ill appearing Neck: normal visual inspection Respiratory: normal respiratory effort and able to speak in complete sentences; no respiratory distress, no labored breathing, no retractions, no cough and no audible wheezes Auscultation: lungs clear to auscultation bilaterally; no crackles, no rales, no rhonchi and no wheezes Cardiovascular: Rate/Rhythm: regular rate and regular rhythm Heart Sounds: normal S1 and normal S2; no gallop, no murmur and no cardiac rub Vessels: posterior tibial pulses present Extremities: no pedal edema and no edema Gastrointestinal (Abdomen): Inspection/Auscultation: abdomen normal to inspection, + abdomen distended and normal bowel sounds Percussion/Palpation: abdomen soft, + tympanic to percussion and + abdomen firm; abdomen nontender, no guarding, abdomen not rigid, no abdominal mass and no fluid wave Results & Data Results & Data ([facility]) Vital Signs (Past 12 Hours) Vital Signs Temp Pulse Pulse Resp BP Pulse Ox 01/05/20 08:02 66 01/05/20 07:17 36.6 C 62 20 117/65 90 01/05/20 03:06 36.7 C 57 L 18 154/72 H 90 01/04/20 23:31 66 01/04/20 22:00 36.8 C 60 18 100/62 90 Laboratory Results WBC 13.31 K/uL (4.8-10.8) H 01/05/20 06:13 RBC 3.74 M/uL (4.7-6.1) L 01/05/20 06:13 Hgb 11.5 g/dL (14.0-18.0) L 01/05/20 06:13 Hct 36.2 % (42-52) L 01/05/20 06:13 MCV 96.8 fL (80-100) 01/05/20 06:13 MCH 30.7 pg (25-34) 01/05/20 06:13 MCHC 31.8 g/dL (32-36) L 01/05/20 06:13 RDW Std Deviation 53.0 fL (36.4-46.3) H 01/05/20 06:13 RDW Coeff of Atif 15.1 % (11.5-14.5) H 01/05/20 06:13 Plt Count 223 K/uL (130-400) 01/05/20 06:13 MPV 10.6 fL (7.4-10.4) H 01/05/20 06:13 Immature Gran % (Auto) 0.7 % 01/05/20 06:13 Neut % (Auto) 71.4 % 01/05/20 06:13 Lymph % (Auto) 16.6 % 01/05/20 06:13 [place] % (Auto) 5.3 % 01/05/20 06:13 Eos % (Auto) 5.5 % 01/05/20 06:13 Baso % (Auto) 0.5 % 01/05/20 06:13 Neut # (Auto) 9.51 K/uL (1.4-6.5) H 01/05/20 06:13 Lymph # (Auto) 2.21 K/uL (1.2-3.4) 01/05/20 06:13 [place] # (Auto) 0.71 K/uL (0.11-0.59) H 01/05/20 06:13 Eos # (Auto) 0.73 K/uL (0-0.5) H 01/05/20 06:13 Baso # (Auto) 0.06 K/uL (0-0.2) 01/05/20 06:13 Immature Gran # (Auto) 0.09 K/uL (0.00-0.02) H 01/05/20 06:13 Sodium 136 mmol/L (136-145) 01/05/20 06:13 Potassium 5.3 mmol/L (3.5-5.1) H 01/05/20 06:13 Chloride 98 mmol/L (98-107) 01/05/20 06:13 Carbon Dioxide 33 mmol/L (21-32) H 01/05/20 06:13 Anion Gap 5.0 (3-11) 01/05/20 06:13 BUN 45 mg/dl (7-18) H D 08/23/20 06:13 Creatinine 5.39 mg/dl (0.6-1.4) H* D 01/05/20 06:13 Est Cr Clr Drug Dosing 17.8 ml/min 01/05/20 06:13 Est GFR ( Amer) 11.7 01/05/20 06:13 Est GFR (Non-Af Amer) 10.1 01/05/20 06:13 BUN/Creatinine Ratio 8.3 (10-20) L 01/05/20 06:13 Glucose 119 mg/dl (70-99) H 01/05/20 06:13 POC Glucose 141 mg/dl (70-99) H 01/05/20 11:45 Calcium 9.1 mg/dl (8.5-10.1) 01/05/20 06:13 Total Bilirubin 0.4 mg/dl (0.2-1) 01/05/20 06:13 AST 18 U/L (15-37) 01/05/20 06:13 ALT 20 U/L (12-78) 01/05/20 06:13 Alkaline Phosphatase 49 U/L (45-117) 01/05/20 06:13 Troponin I 0.171 ng/ml (0-0.045) H* 01/05/20 06:13 Total Protein 7.7 gm/dl (6.4-8.2) 01/05/20 06:13 Albumin 3.3 gm/dl (3.4-5.0) L 01/05/20 06:13 Globulin 4.4 gm/dl (2.5-4.0) H 01/05/20 06:13 Albumin/Globulin Ratio 0.7 (0.9-2) L 01/05/20 06:13 TSH 4.000 uIu/ml (0.300-4.500) 01/04/20 10:52 Resident Activity Tracking Resident Involvement: Resident Care Provided Care Provided: Adult Hospital Medicine (1) Leukocytosis Leukocytosis type: unspecified Qualified Code(s): D72.829 - Elevated white blood cell count, unspecified
[2020-01-05] MEDS: TAMSULOSIN HCL 0.4 MG CAP PO SCH (10:47)
--- NOTE | 2020-01-05 15:07 | Emergency Department Note ---
History of Present Illness General Chief complaint: Illness Stated complaint: SOB/Dizzy after dialysis Time Seen by Provider: 01/04/20 11:48 Source: patient and RN notes reviewed Mode of arrival: EMS Limitations: no limitations History of Present Illness Provider complaint: Dizzy after dialysis This patient is a 69-year-old male who presents emergency department after becoming dizzy at the bus stop after dialysis. He states he was on his way to go downtown shopping when he had a sudden sensation of dizziness. He contacted the ambulance and was brought to the hospital. In route the patient received 250 mL of IV normal saline solution with improvement in his symptoms. He states they took "13 pounds of fluid off." Patient denies any chest pain or significant shortness of breath. He was recently hospitalized and had a coronary stent placed. He states he has not experienced any recurrent chest pain since. He denies any recent fevers, chills, cough, abdominal pain, vomiting or diarrhea. Home Medications Home Medications Medication Instructions Recorded Confirmed Type albuterol sulfate 2 puff INHALATION Q6H PRN 01/06/19 01/04/20 History furosemide [Lasix] 80 mg PO BID 01/06/19 01/04/20 History hydralazine 50 mg PO TID 01/06/19 01/04/20 History insulin aspart U-100 [Novolog 10 unit SUBCUT AC 01/06/19 01/04/20 History PenFill U-100 Insulin] loratadine 10 mg PO DAILY PRN 01/06/19 01/04/20 History sertraline 25 mg PO QAM 01/06/19 01/04/20 History tamsulosin 0.4 mg PO QAM 01/06/19 01/04/20 History Lantus Solostar U-100 Insulin 50 unit SUBCUT BID 03/06/19 01/04/20 History aspirin [Aspir-81] 81 mg PO DAILY 03/06/19 01/04/20 History carvedilol [Coreg] 6.25 mg PO BID 03/06/19 01/04/20 History clopidogrel [Plavix] 75 mg PO DAILY 03/06/19 01/04/20 History ProRenal 1 tab PO QPM 09/26/19 01/04/20 History sevelamer carbonate [Renvela] 800 mg PO TIDM 09/26/19 01/04/20 History amiodarone 200 mg tablet See Rx Instructions .ROUTE 12/18/19 01/04/20 Rx .COMPLEX #45 tab amlodipine 10 mg tablet 5 mg PO QAM tab 12/18/19 01/04/20 History clonidine HCl 0.1 mg tablet 0.1 mg PO DIRECTED 12/18/19 01/04/20 History atorvastatin 40 mg PO PM #30 tab 12/27/19 01/04/20 Rx nitroglycerin [Nitrostat] 0.4 mg SUBLINGUAL UD PRN #20 tab 12/27/19 01/04/20 Rx Allergies Allergy/AdvReac Type Severity Reaction Status Date / Time ragweed pollen Allergy Mild [place] Verified 01/04/20 13:07 Past Med/Surg History Medical History Anemia CAD (coronary artery disease) s/p stent 2018 CHF exacerbation Chronic kidney disease, stage 4 (severe) CKD (chronic kidney disease) Stage 4 Diabetes Dyslipidemia Elevated troponin ESRD (end stage renal disease) HTN (hypertension) Paroxysmal atrial fibrillation Sinus node dysfunction Sleep apnea does not use CPAP Surgical History AV fistula History of loop recorder Implanted 05/01/2019 S/P coronary artery stent placement Family History Other Hypertension Social History Smoking Status: Former smoker Tobacco Type: Cigarettes Cigarettes Per Day: 10; Second Hand Exposure: No; Do You Dip or Chew Tobacco: No; Hx Alcohol Use: No Hx Substance Use: No Preferred Language: Iranian Communication Ability: Effective Ride Mechanic Required: No Beliefs That Will Affect Care: None marital status: Current Living Situation: Alone How many Children do You have: 0 Feels Safe at Home: Yes Safety Concerns: Feels Safe At This Time Review of Systems See HPI for pertinent positives & negatives. and A total of 10 systems reviewed and were otherwise negative Physical Exam Vital signs reviewed. General: Chronically ill-appearing 69-year-old male, in no significant distress. Disheveled. HEENT: No scleral icterus, PERRLA, neck supple. Atraumatic. Cardiovascular: Regular rate and rhythm, no extra sounds. Pulmonary: Clear to auscultation bilaterally, normal work of breathing. Abdomen: Soft, obese, nontender nondistended, positive bowel sounds. Musculoskeletal: Atraumatic, dependent peripheral edema Neurologic: Patient awake alert and oriented x 3 Skin: Warm, dry, no rash Course Administered Medications Amlodipine Besylate (Amlodipine Besylate 5 Mg Tab) 5 mg PO QAM ANTONY Stop: 02/04/20 08:59 Last Admin: 01/05/20 08:53 Dose: 5 mg Documented by: [id number] Aspirin (Aspirin 81 Mg Ectab) 81 mg PO DAILY ANTONY Stop: 02/04/20 08:59 Last Admin: 01/05/20 08:54 Dose: 81 mg Documented by: [id number] Atorvastatin Calcium (Atorvastatin 40 Mg Tab) 40 mg PO PM ANOTNY Stop: 02/03/20 20:59 Last Admin: 01/04/20 20:11 Dose: 40 mg Documented by: [id number] Carvedilol (Carvedilol 6.25 Mg Tab) 6.25 mg PO BID ANTONY Stop: 02/03/20 20:59 Last Admin: 01/05/20 08:54 Dose: 6.25 mg Documented by: [id number] Admin: 01/04/20 20:11 Dose: 6.25 mg Documented by: [id number] Clonidine HCl (Clonidine Hcl 0.1 Mg Tab) 0.2 mg PO QAM ANTONY Stop: 02/04/20 08:59 Last Admin: 01/05/20 08:58 Dose: 0.2 mg Documented by: [id number] Clonidine HCl (Clonidine Hcl 0.1 Mg Tab) 0.1 mg PO QPM ANTONY Stop: 02/03/20 20:59 Last Admin: 01/04/20 20:11 Dose: 0.1 mg Documented by: [id number] Clopidogrel Bisulfate (Clopidogrel Bisulfate 75 Mg Tab) 75 mg PO DAILY ANTONY Stop: 02/04/20 08:59 Last Admin: 01/05/20 08:54 Dose: 75 mg Documented by: [id number] Furosemide (Furosemide 80 Mg Tab) 80 mg PO BID17 ANTONY Stop: 02/03/20 16:59 Last Admin: 01/05/20 08:55 Dose: 80 mg Documented by: [id number] Admin: 01/04/20 19:22 Dose: 80 mg Documented by: [id number] Heparin Sodium (Porcine) (Heparin Sod 5,000 Unit/0.5 Ml Vial) 5,000 units SQ Q8 [facility] Stop: 02/03/20 21:59 Last Admin: 01/05/20 14:06 Dose: 5,000 units Documented by: [id number] Cosigned by: [id number] Admin: 01/05/20 06:27 Dose: 5,000 units Documented by: [id number] Cosigned by: [id number] Admin: 01/04/20 21:47 Dose: 5,000 units Documented by: [id number] Cosigned by: [id number] Hydralazine HCl (Hydralazine Tab 50 Mg Tab) 50 mg PO TID [facility] Stop: 02/03/20 20:59 Last Admin: 01/05/20 14:06 Dose: 50 mg Documented by: [id number] Admin: 01/05/20 08:54 Dose: 50 mg Documented by: [id number] Admin: 01/04/20 21:46 Dose: 50 mg Documented by: [id number] Insulin Aspart (Insulin Aspart 100 Units/Ml 3 Ml Pen) 0 units SC ACHS [facility] Stop: 02/03/20 20:59 Last Admin: 01/05/20 12:34 Dose: 1 units Documented by: [id number] Cosigned by: [id number] Admin: 01/05/20 08:58 Dose: 1 units Documented by: [id number] Cosigned by: [id number] Admin: 01/04/20 21:13 Dose: Not Given Documented by: [id number] Multivitamins/Minerals (Cerovite Adv Formula Tab) 1 tab PO QPM [facility] Stop: 02/03/20 20:59 Last Admin: 01/04/20 20:11 Dose: 1 tab Documented by: [id number] Sertraline HCl (Sertraline Hcl 50 Mg Tablet) 25 mg PO QAM [facility] Stop: 02/04/20 08:59 Last Admin: 01/05/20 08:55 Dose: 25 mg Documented by: [id number] Sevelamer HCl (Sevelamer Hcl 800 Mg Tablet) 800 mg PO TIDM [facility] Stop: 02/03/20 16:59 Last Admin: 01/05/20 12:35 Dose: 800 mg Documented by: [id number] Admin: 01/05/20 09:01 Dose: 800 mg Documented by: [id number] Admin: 01/04/20 19:22 Dose: 800 mg Documented by: [id number] Tamsulosin HCl (Tamsulosin Hcl 0.4 Mg Cap) 0.4 mg PO QAM ANTONY Stop: 02/04/20 08:59 Last Admin: 01/05/20 10:47 Dose: 0.4 mg Documented by: [id number] Discontinued Medications Aspirin (Aspirin Chew 324 Mg) 243 mg PO NOW STA Stop: 01/04/20 12:56 Last Admin: 01/04/20 14:06 Dose: 162 mg Documented by: [id number] Calcium Gluconate 1,000 mg/ (Sodium Chloride) 60 mls @ 240 mls/hr IV NOW ONE Stop: 01/05/20 09:14 Last Infusion: 01/05/20 11:05 Dose: 0 mls/hr Documented by: [id number] Admin: 01/05/20 10:47 Dose: 240 mls/hr Documented by: [id number] Sevelamer HCl (Sevelamer Hcl 800 Mg Tablet) 800 mg PO ONE ONE Stop: 01/04/20 14:31 Last Admin: 01/04/20 14:37 Dose: 800 mg Documented by: [id number] Medical Decision Making Differential Diagnosis Differential diagnosis: Etiologies such as benign positional vertigo, labrynthitis, dehydration, hypovolemia, anemia, tumor, infection, hypoglycemia, electrolyte abnormalities, cardiac sources, toxicological sources, central neurologic process, as well as others were entertained. Medical Records Attestation: I reviewed the patient's medical records. Home Medications Current Medication List: was personally reviewed by me Laboratory Data Attestation: I reviewed the patient's lab results. Result diagrams: 01/05/20 06:13 01/05/20 06:13 Lab Results 01/04/20 01/04/20 Range/Units 10:52 10:52 WBC 18.98 H (4.8-10.8) K/uL RBC 3.99 L (4.7-6.1) M/uL Hgb 12.7 L (14.0-18.0) g/dL Hct 39.3 L (42-52) % MCV 98.5 (80-100) fL MCH 31.8 (25-34) pg MCHC 32.3 (32-36) g/dL RDW Std Deviation 53.4 H (36.4-46.3) fL RDW Coeff of Atif 15.0 H (11.5-14.5) % Plt Count 266 (130-400) K/uL MPV 10.8 H (7.4-10.4) fL Immature Gran % (Auto) 1.3 % Neut % (Auto) 82.3 % Lymph % (Auto) 5.7 % [place] % (Auto) 7.3 % Eos % (Auto) 3.0 % Baso % (Auto) 0.4 % Neut # (Auto) 15.62 H (1.4-6.5) K/uL Lymph # (Auto) 1.09 L (1.2-3.4) K/uL [place] # (Auto) 1.39 H (0.11-0.59) K/uL Eos # (Auto) 0.56 H (0-0.5) K/uL Baso # (Auto) 0.07 (0-0.2) K/uL Immature Gran # (Auto) 0.25 H (0.00-0.02) K/uL Sodium 135 L (136-145) mmol/L Potassium 4.7 (3.5-5.1) mmol/L Chloride 98 (98-107) mmol/L Carbon Dioxide 31 (21-32) mmol/L Anion Gap 6.0 (3-11) BUN 24 H (7-18) mg/dl Creatinine 3.34 H (0.6-1.4) mg/dl Est Cr Clr Drug Dosing 28.2 ml/min Est GFR ( Amer) 20.9 Est GFR (Non-Af Amer) 18.0 BUN/Creatinine Ratio 7.1 L (10-20) Glucose 109 H (70-99) mg/dl Calcium 10.1 (8.5-10.1) mg/dl Total Bilirubin 0.4 (0.2-1) mg/dl AST 20 (15-37) U/L ALT 25 (12-78) U/L Alkaline Phosphatase 53 (45-117) U/L Troponin I 0.224 H* (0-0.045) ng/ml Total Protein 8.6 H (6.4-8.2) gm/dl Albumin 3.5 (3.4-5.0) gm/dl Globulin 5.1 H (2.5-4.0) gm/dl Albumin/Globulin Ratio 0.7 L (0.9-2) TSH 4.000 (0.300-4.500) uIu/ml Imaging Data Radiologist's Impression: XR chest 1V portable HISTORY: weakness COMPARISON: Chest 12/24/2019. FINDINGS: The heart remains mildly enlarged. A few left basilar densities consistent with scarring or atelectasis remain unchanged. Otherwise, lungs are clear. No pleural effusions. No pneumothorax. IMPRESSION: No significant change compared to the prior study. No acute process. Stable mild cardiomegaly. ACT 112: Negative or not required by law. Electronically signed by: Delfin Chan M.D. 01/04/2020 12:29 PM Dictated: 01/04/20 1227 Transcribed: 01/04/20 1227 ECG Data Attestation: I personally reviewed and interpreted this ECG as follows: Indication: + weakness Rate (beats per minute): 60 Rhythm: + normal sinus ECG Intervals/blocks: + Normal QT-c ECG [place]: + Normal ECG ST segments: + Normal ST segments ECG Findings: no PACs and no PVCs Blood Pressure Blood Pressure Findings: Normal blood pressure Blood Pressure Disposition: Referred to patients primary care provider MDM Narrative This patient was evaluated and appeared to be in no significant distress. IV access was obtained and laboratory work was drawn. An order for cardiac monitoring was placed and the patient is noted to be in a normal sinus rhythm at 60 bpm. Laboratory work reveals a leukocytosis of nearly 19,000 and a mildly elevated troponin at 0.224. EKG reveals no evidence of acute ischemic change and the patient is not experiencing chest pain. Chest x-ray reveals no evidence of failure. Given the patient's abnormal lab work, he will be evaluated by the hospitalist service for further management. He is aware of the plan and agrees. Impression & Plan Orthostatic dizziness, Elevated troponin, Leukocytosis, End-stage renal disease on hemodialysis Discharge Plan Visit Data Chief Complaint: Illness Stated Complaint: SOB/Dizzy after dialysis ED Provider: [place] Discharge Problem: Orthostatic dizziness, Elevated troponin, Leukocytosis, End-stage renal disease on hemodialysis Patient Disposition: Admitted As Inpatient Discharge Instructions Interventions: ED Discharge Assessment Last Done: 01/04/20 16:10 Discharge Problem: Leukocytosis Qualifiers: Leukocytosis type: unspecified Qualified Code(s): D72.829 - Elevated white blood cell count, unspecified
[2020-01-05 18:40] LABS: BUN Creatinine Ratio 9.2 (10-20); Creatinine Clr Calc Pharmacy 14.8 ml/min; Est GFR (African American) 9.4; Est GFR (Non-African American) 8.1; Potassium 5.5 mmol/L (3.5-5.1)
[2020-01-05] MEDS ORDERED: POLYETHYLENE (MIRALAX) 17 GM PACK PO STA (18:48)
[2020-01-05] MEDS ORDERED: SODIUM CHLORIDE 0.9% 250 ML IV ONE (18:50)
--- NOTE | 2020-01-05 19:26 | Billing Data ---
Date of Service January 05, 2020 Coding Level of Care Code 56106 Subseq Obs Care Lvl 3
[2020-01-05] MEDS: ATORVASTATIN 40 MG TAB PO SCH (21:14)
[2020-01-05] MEDS: CEROVITE ADV FORMULA TAB PO SCH (21:15)
[2020-01-06] MEDS: HEPARIN SOD 5,000 UNIT/0.5 ML VIAL SQ SCH ×2 (06:17→14:10)
[2020-01-06 08:15] LABS: Basophils # (auto) 0.03 K/uL (0-0.2); Basophils % (auto) 0.3 %; Eosinophils # (auto) 0.45 K/uL (0-0.5); Eosinophils % (auto) 4.1 %; Hematocrit (blood only) 35.7 % (42-52); Hemoglobin 11.4 g/dL (14.0-18.0); Immature Granulocytes # (auto) 0.07 K/uL (0.00-0.02); Immature Granulocytes % (auto) 0.6 %; Lymphocytes # (auto) 1.71 K/uL (1.2-3.4); Lymphocytes % (auto) 15.7 %; Mean Corpuscular Hemoglobin 31.3 pg (25-34); Mean Corpuscular Hgb Conc 31.9 g/dL (32-36); Mean Corpuscular Volume 98.1 fL (80-100); Mean Platelet Volume 10.6 fL (7.4-10.4); Monocytes # (auto) 0.64 K/uL (0.11-0.59); Monocytes % (auto) 5.9 %; Neutrophils % (auto) 73.4 %; Platelet Count 217 K/uL (130-400); RDW Standard Deviation 53.2 fL (36.4-46.3); Red Blood Count 3.64 M/uL (4.7-6.1)
[2020-01-06] MEDS: HydrALAZINE TAB 50 MG TAB PO SCH ×2 (08:46→14:49)
[2020-01-06] MEDS: TAMSULOSIN HCL 0.4 MG CAP PO SCH (08:47)
[2020-01-06] MEDS: SERTRALINE HCL 50 MG TABLET PO SCH (08:47)
[2020-01-06] MEDS: cloNIDine HCL 0.1 MG TAB PO SCH (08:47)
[2020-01-06] MEDS: AMLODIPINE BESYLATE 5 MG TAB PO SCH (08:48)
[2020-01-06] MEDS: ASPIRIN 81 MG ECTAB PO SCH (08:48)
[2020-01-06] MEDS: SEVELAMER HCL 800 MG TABLET PO SCH ×2 (08:49→13:07)
[2020-01-06] MEDS: CLOPIDOGREL BISULFATE 75 MG TAB PO SCH (08:49)
[2020-01-06] MEDS: FUROSEMIDE 80 MG TAB PO SCH (08:50)
[2020-01-06] MEDS: carvediloL 6.25 MG TAB PO SCH (08:50)
[2020-01-06] MEDS: INSULIN ASPART 100 UNITS/ML 3 ML PEN SC SCH ×2 (08:52→13:08)
[2020-01-06 09:11] LABS: BUN Creatinine Ratio 9.8 (10-20); Calcium 9.3 mg/dl (8.5-10.1); Creatinine Clr Calc Pharmacy 13.9 ml/min; Est GFR (African American) 8.8; Est GFR (Non-African American) 7.6
--- NOTE | 2020-01-06 09:13 | Electrocardiogram Report ---
Test Reason : Blood Pressure : / mmHG Vent. Rate : 060 BPM Atrial Rate : 060 BPM P-R Int : 206 ms QRS Dur : 102 ms QT Int : 444 ms P-R-T Axes : 033 063 057 degrees QTc Int : 444 ms Normal sinus rhythm Normal ECG When compared with ECG of 26-DEC-2019 06:21, Premature ventricular complexes are no longer Present Confirmed by Grover Garzon ([id number]) on 01/06/2020 9:12:44 AM Referred By: REFERRED SELF Confirmed By:Grover Garzon
--- NOTE | 2020-01-06 09:56 | Discharge Summary ---
Date of Service January 06, 2020 Admission HPI Per Admitting Provider Angel Solorio is a 69-year-old male with end-stage renal disease on dialysis who presents to the ER via EMS due to a hypotensive episode with associated dizziness after receiving dialysis today. He reports he took 13 pounds of in dialysis. Since his recent discharge on December 26 he has been drinking more water/tea as it is been helping with his tooth pain which would explain his increased weight and need to take of more fluids during dialysis. In the ER his troponin was elevated however he denies any chest pain or shortness of breath. He reports not taking his Lasix this morning which is usual prior to his dialysis. He denies any complete syncopal episode. Reports EMS said his systolic blood pressure was in the 90s which is very low for him. He was given a 250 mL bolus of IV fluids en route to the ER and currently feels back to his baseline. With regards to his medication he missed his Lantus 50 units this morning as sometimes he does not take this if he does not eat many carbs felt his breakfas t. He notes he is out of NovoLog therefore does not take this. He has obstructive sleep apnea although is intolerant to CPAP. He still has not received his amiodarone. It is possibly in his post box although this is third of a mile away from his house therefore he has not managed to get it yet. Admission Exam Per Admitting Provider Constitutional: well developed, well nourished and + obese; no acute distress Eyes: + anicteric sclerae; normal pupil size ENMT: Ears: + EAC abnormality (Ingrown hair in left ear canal); no TM abnormality Neck: trachea midline, no thyromegaly Respiratory: normal respiratory effort, lungs clear to auscultation Cardiovascular: Rate/Rhythm: regular rate and regular rhythm Heart Sounds: no murmur Vessels: no JVD Extremities: normal capillary refill and + pedal edema (1+ to mid shins equal bilaterally); no calf tenderness Gastrointestinal (Abdomen): normal bowel sounds, soft, nontender, no hepatosplenomegaly Musculoskeletal: no cyanosis or clubbing, extremities motor strength 5/5 Skin: no rashes, warm and dry Neurologic: moves all extremities and awake; no focal motor deficits and not confused Speech / Cognition: normal speech Motor/Sensory: no tremor and no pronator drift Psychiatric: A+Ox3, euthymic affect Genitourinary: no CVA tenderness Principal Diagnosis orthostatic hypotension Discharge Exam Constitutional cooperative; no acute distress and not ill appearing Neck normal visual inspection Respiratory normal respiratory effort and able to speak in complete sentences; no respiratory distress, no labored breathing, no retractions, no cough and no audible wheezes Auscultation: lungs clear to auscultation bilaterally; no crackles, no rales, no rhonchi and no wheezes Cardiovascular Rate/Rhythm: regular rate and regular rhythm Heart Sounds: normal S1 and normal S2; no gallop, no murmur and no cardiac rub Vessels: posterior tibial pulses present Extremities: no pedal edema and no edema Gastrointestinal (Abdomen) Inspection/Auscultation: abdomen normal to inspection, + abdomen distended and normal bowel sounds Percussion/Palpation: abdomen soft, + tympanic to percussion and + abdomen firm; abdomen nontender, no guarding, abdomen not rigid, no abdominal mass and no fluid wave Discharge Data Allergies Allergy/AdvReac Type Severity Reaction Status Date / Time ragweed pollen Allergy Mild CONGESTON Verified 01/04/20 13:07 Consultations 01/04/20 13:23 ED Decision to Admit Stat Hospital Course (1) Orthostatic dizziness: 69 yo M with ESRD on hemodialysis TTS, hx Aflutter with RVR, paroxysmal AFib, HFpEF, BPH, Depression, CAD, DM2, sleep apnea, HTN, Diverticulitis, ANemia who was admitted for elevated troponin, orthostatic dizziness after receiving dialysis on 01/03. Mr. Solorio's dizziness and lightheadedness likely from hypovolemia resolved after receiving small fluid boluses in the ED and on the [facility]. Given his low blood pressure, his hydralazine TID was held during admission. His BP was normal without the hydralazine and he was advised to discuss with PCP either removing hydralazine from medication regimen or having it as a PRN for elevated BP above a certain threshold. He was noted to have an elevated troponin of 0.224 on admission, likely secondary to demand ischemia from being hypotensive. This downtrended with normalization of his fluid status. He was also noted to have a leukocytosis of 13 on admission, most likely secondary to his irritated/abscessing teeth that require operation. No pain or irritation elsewhere. WBC 10.90 on discharge. All other medical conditions managed per home regimen. (2) Elevated troponin: (3) End-stage renal disease on hemodialysis: (4) Leukocytosis: Total Time Total Time Spent Total Time Spent (In Minutes): see attending attestation Discharge Plan Discharge Items Patient Disposition: Home - Self-Care Reason For Visit: ACUTE HYPOTENSION,DIZZINESS Discharge Diagnosis: Acute hypotension Activity: Resume your previous activity Non-emergency contact: Primary Care Provider Call non-emergency contact if: your symptoms worsen Follow-up/Referrals: Shiv Gallardo MD [Primary Care Provider] - Diet: Dialysis Renal Addtl Attending Provider Instructions: You were evaluated in the hospital for acute dizziness and low blood pressure after receiving your dialysis treatment. You improved after receiving small doses of IV fluids and rest. Continue to receive your dialysis treatments as previously scheduled. Given your low blood pressure, your Hydralazine (BP medication) was not given to you while in the hospital. Discuss with your [facility] doctor if you should restart this medication or if you should only take it when your blood pressure is high at home. Call your doctor if you have concerns about your symptoms. Your heart enzymes (troponins) were higher than normal on admission however this is most likely because your blood pressure was low and your heart was not getting enough blood/oxygen. This was trending down and should resolve on its own. Pending Studies at Discharge: No Stand-Alone Forms: [facility] Smoking Cessation Medications and DC Order Prescriptions: Continued amiodarone 200 mg tablet See Rx Instructions .ROUTE .COMPLEX Qty: 45 RF: 3 furosemide [Lasix] 40 mg Tablet 80 mg PO BID RF: 0 insulin aspart U-100 [Novolog PenFill U-100 Insulin] 100 unit/mL Cartridge 10 unit SUBCUT AC RF: 0 tamsulosin 0.4 mg Capsule 0.4 mg PO QAM RF: 0 albuterol sulfate 90 mcg/actuation Hfa Aerosol Inhaler 2 puff INHALATION Q6H PRN (Reason: Shortness Of Breath) RF: 0 sertraline 50 mg Tablet 25 mg PO QAM RF: 0 loratadine 10 mg Tablet 10 mg PO DAILY PRN (Reason: Allergy Symptoms) RF: 0 clonidine HCl 0.1 mg tablet 0.1 mg PO DIRECTED RF: 0 amlodipine 10 mg tablet 5 mg PO QAM RF: 0 carvedilol [Coreg] 12.5 mg tablet 6.25 mg PO BID RF: 0 clopidogrel [Plavix] 75 mg Tablet 75 mg PO DAILY RF: 0 aspirin [Aspir-81] 81 mg Tablet,Delayed Release (Dr/Ec) 81 mg PO DAILY RF: 0 Lantus Solostar U-100 Insulin 100 unit/mL (3 mL) insulin pen 50 unit SUBCUT BID RF: 0 sevelamer carbonate [Renvela] 800 mg tablet 800 mg PO TIDM RF: 0 ProRenal 8 mg iron-800 mcg-1,000 unit tablet 1 tab PO QPM RF: 0 nitroglycerin [Nitrostat] 0.4 mg Tablet, Sublingual 0.4 mg sublingual UD PRN (Reason: chest pain) Qty: 20 RF: 0 atorvastatin 40 mg Tablet 40 mg PO PM Qty: 30 RF: 5 Discontinued hydralazine 100 mg Tablet 50 mg PO TID RF: 0 Discharge Orders: Discharge Order (Routine); Ordered 01/06/20 Ordered By: Ml Burgos/Other Patient Handouts: Diet Low Potassium Dc, Potassium Admission Data Admit Date/Time: 01/04/20 14:52 Attending Provider: Magali Shields Admit Provider: Elliot Carver Primary Care Provider: Shiv Gallardo Other Providers: Elliot Carver ; Ml Alarcon ; Alli Manzo Other Interventions: Discharge Summary Assessment (RN) Last Done: 01/06/20 15:53 Supervising Physician Co-Signing Physician Notes Resident Physician Supervision Note: I independently interviewed and examined the patient and verified the roman history and physical, reviewed labs and image studies, discussed the case with the resident Dr. Alarcon and agree with the findings and care plan. Resident Activity Tracking Resident Involvement: Resident Care Provided Care Provided: Adult Hospital Medicine
== END 2020-01-06 16:20 | disposition home or self-care (01) ==
LOC: 2W 11:08 → ED 11:08 → SUATTDRO 14:52 → 2W 16:10

== ENCOUNTER 2020-01-31 18:15 | Inpatient (IN) ==
[2020-01-31] MEDS ORDERED: ALUMINUM/MAGNESIUM SUSP 30 ML UDC PO STA (18:22)
[2020-01-31] MEDS ORDERED: ASPIRIN CHEW 324 MG PO STA (18:22)
[2020-01-31] MEDS ORDERED: NITROGLYCERIN SL 0.4 MG/TAB TAB SL STA (18:22)
[2020-01-31 18:47] LABS: Basophils # (auto) 0.02 K/uL (0-0.2); Basophils % (auto) 0.2 %; Eosinophils # (auto) 0.53 K/uL (0-0.5); Eosinophils % (auto) 6.3 %; Hematocrit (blood only) 35.8 % (42-52); Hemoglobin 11.3 g/dL (14.0-18.0); Immature Granulocytes # (auto) 0.02 K/uL (0.00-0.02); Immature Granulocytes % (auto) 0.2 %; Lymphocytes # (auto) 1.16 K/uL (1.2-3.4); Lymphocytes % (auto) 13.8 %; Mean Corpuscular Hgb Conc 31.6 g/dL (32-36); Mean Corpuscular Volume 98.1 fL (80-100); Mean Platelet Volume 10.4 fL (7.4-10.4); Monocytes # (auto) 0.72 K/uL (0.11-0.59); Monocytes % (auto) 8.6 %; Neutrophils # (auto) 5.97 K/uL (1.4-6.5); Neutrophils % (auto) 70.9 %; Platelet Count 232 K/uL (130-400); RDW Coefficient of Variation 15.2 % (11.5-14.5); RDW Standard Deviation 54.2 fL (36.4-46.3); Red Blood Count 3.65 M/uL (4.7-6.1); White Blood Count 8.42 K/uL (4.8-10.8)
--- NOTE | 2020-01-31 18:54 | XRay Report ---
XR chest 1V portable HISTORY: Atypical Chest Pain COMPARISON: Chest 01/04/2020. FINDINGS: The heart remains mildly enlarged. The lungs are clear. No pleural effusions. No pneumothor ax. No evidence for pulmonary edema. IMPRESSION: No significant change compared to the prior study. No acute process. Stable mild cardiomegaly. ACT 112: Negative or not required by law. Electronically signed by: Delfin Chan M.D. 01/31/2020 6:53 PM
[2020-01-31 18:57] LABS: Partial Thromboplastin Ratio 1.1; Partial Thromboplastin Time 31.3 Seconds (21.0-31.0); Prothrombin Time 10.9 Seconds (9.0-12.0)
--- NOTE | 2020-01-31 19:14 | Emergency Department Note ---
Impression & Plan Chest pain, Renal failure ED Provider Note NAME: LYNN BENZ AGE: 69 SEX: M : 1950 ARRIVES VIA: Ambulance INFORMANT: Patient, ED PROVIDER(S): Chuck Griffiths DO CHIEF COMPLAINT: Chest pain HPI: The patient is a 69-year-old male who presented to the emergency department by ambulance for an evaluation of chest pain. The patient describes anterior chest pain which radiates to his neck. He describes it as a pressure. He states he has a history of unstable angina as well as cardiac catheterization requiring stenting in the past. He was seen in our facility last month for similar complaints and required coronary artery stenting. He states the pain was moderate to severe and associated with diaphoresis initially. The pain is significantly improved at this time. He denies having any abdominal pain or back pain. He denies having any fevers or chills. He has had no coughing. He denies having any lower extremity swelling. He does have a history of end-stage renal disease requiring dialysis. His last dialysis was of this week. He is not due for dialysis until tomorrow. He is noticed some shortness of breath with exertion. ROS: See above HPI for pertinent positives & negatives. A total of 10 systems reviewed and were otherwise negative. PAST MEDICAL HISTORY: See Below PAST SURGICAL HISTORY: See Below FAMILY HISTORY: See Below SOCIAL HISTORY: See Below HOME MEDICATIONS: See Below ALLERGIES: See Below VITALS: See Below PHYSICAL EXAMINATION: GENERAL: Patient is awake alert in no acute distress patient is resting comfortably and showing no signs of anxiety EYES: The conjunctivae are clear. The pupils are round and reactive. EARS, NOSE, MOUTH AND THROAT: The nose is without any evidence of any deformity. Mucous membranes are moist. Tongue is midline. NECK: The neck is nontender and supple. RESPIRATORY: Diminished breath sounds are noted at both bases. There was faint rales at both bases. There is no tachypnea or conversational dyspnea. CARDIOVASCULAR: Regular rate and rhythm noted there no murmurs rubs or gallops normal S1 normal S2. GASTROINTESTINAL: The abdomen is soft. Abdomen is nontender. MUSCULOSKELETAL/EXTREMITIES: There is no evidence of gross deformity full range of motion is noted in the hips and shoulders. SKIN: There is no obvious evidence of any rash. There are no petechiae, pallor or cyanosis noted. Chronic venous stasis changes were noted. Dialysis fistula was noted in the right upper extremity. Palpable thrill and bruit were noted. NEUROLOGIC: Patient is awake alert and oriented x3. MEDICAL DECISION MAKING: The patient is a 69-year-old male who presented to the emergency department for an evaluation of chest pain. The patient describes anterior chest pain which radiates to his neck. The patient does have a history of coronary artery disease. He was seen in our facility recently and had cardiac catheterization and coronary artery stenting. He was treated with medications for pain in the emergency department. On subsequent reevaluation he was feeling much better. I discussed the patient's laboratory and radiographic studies with him. I also discussed the limitations of the emergency department work-up for chest pain with him. Ultimately I discussed his case with the on-call [facility] hospitalist group. They will evaluate the patient in the emergency department for further management and disposition. The patient was feeling much better and rated his pain a 1 out of 10. Triage Nursing notes reviewed. Prior medical records reviewed Vital Signs: reviewed and remarkable for elevated blood pressure Differential diagnosis: Cardiac ischemia, aortic dissection, pulmonary embolism, pneumothorax, pneumonia, pericarditis, myocarditis, esophageal rupture, GERD, cholecystitis, pancreatitis, musculoskeletal, as well as other pathologies. ER treatment provided: See below Diagnostics interpreted by me: ECG: EKG was obtained in the emergency department. My interpretation is normal sinus rhythm at 78 bpm. There was no ectopy. There was no acute ST segment abnormalities noted. This was compared to a tracing from December 26, 2019. No significant changes were noted. Cardiac Monitoring: An order was placed for continuous cardiac monitoring. The monitor shows a rate of 82 bpm with sinus rhythm. Laboratory studies: As stated above and show below. Imaging studies: See below Consultation(s): The [facility] hospitalist group was consulted about the patient Past Med/Surg History Medical History Anemia CAD (coronary artery disease) s/p stent 2018 CHF exacerbation Chronic kidney disease, stage 4 (severe) CKD (chronic kidney disease) Stage 4 Diabetes Dyslipidemia Elevated troponin Elevated troponin HTN (hypertension) Orthostatic dizziness Paroxysmal atrial fibrillation Sinus node dysfunction Sleep apnea does not use CPAP Surgical History AV fistula History of loop recorder Implanted 05/01/2019 S/P coronary artery stent placement Family History Other Hypertension Social History Smoking Status: Former smoker Tobacco Type: Cigarettes Cigarettes Per Day: 10; Second Hand Exposure: No; Hx Alcohol Use: No Hx Substance Use: No Preferred Language: Gibraltarian Communication Ability: Effective Cyberathlete Required: No Beliefs That Will Affect Care: None marital status: Current Living Situation: Alone How many Children do You have: 0 Feels Safe at Home: Yes Allergies Allergies Allergy/AdvReac Type Severity Reaction Status Date / Time ragweed pollen Allergy Mild CONGESTON Verified 01/31/20 19:39 Home Meds Home Medications Medication Instructions Recorded Confirmed albuterol sulfate 2 puff INHALATION Q6H PRN 01/06/19 01/31/20 furosemide [Lasix] 80 mg PO BID 01/06/19 01/31/20 insulin aspart U-100 [Novolog 10 unit SUBCUT AC 01/06/19 01/31/20 PenFill U-100 Insulin] loratadine 10 mg PO DAILY PRN 01/06/19 01/31/20 sertraline 25 mg PO QAM 01/06/19 01/31/20 tamsulosin 0.4 mg PO QAM 01/06/19 01/31/20 Lantus Solostar U-100 Insulin 50 unit SUBCUT BID 03/06/19 01/31/20 aspirin [Aspir-81] 81 mg PO DAILY 03/06/19 01/31/20 carvedilol [Coreg] 6.25 mg PO BID 03/06/19 01/31/20 clopidogrel [Plavix] 75 mg PO DAILY 03/06/19 01/31/20 ProRenal 1 tab PO QPM 09/26/19 01/31/20 sevelamer carbonate [Renvela] 800 mg PO TIDM 09/26/19 01/31/20 amlodipine 10 mg tablet 5 mg PO QAM tab 12/18/19 01/31/20 clonidine HCl 0.1 mg tablet 0.1 mg PO DIRECTED 12/18/19 01/31/20 Unknown Med @ Dialysis 1 tab PO [id number] 01/31/20 01/31/20 Previous Rx's Medication Instructions Recorded amiodarone 200 mg tablet See Rx Instructions .ROUTE 12/18/19 .COMPLEX #45 tab atorvastatin 40 mg PO PM #30 tab 12/27/19 nitroglycerin [Nitrostat] 0.4 mg SUBLINGUAL UD PRN #20 tab 12/27/19 Results & Data (ED) Vital Signs Vital Signs - 24 hr 01/31/20 18:22 01/31/20 18:27 01/31/20 18:30 Temperature 36.9 C Temperature Source Oral Pulse Rate 76 79 77 Pulse Rate from SpO2 Sensor 78 77 Pulse Rhythm Regular Pulse Strength Normal Respiratory Rate 25 H 24 17 Respiratory Effort / Characteristics Non-Labored Spontaneous SOB on Exertion Respiratory Depth Normal Respiratory Pattern Regular Blood Pressure 167/80 H Blood Pressure Mean 109 Blood Pressure Position Sitting Pulse Oximetry 89 L 91 94 Oxygen Delivery Method Room Air Oxygen Flow Rate 2 Sepsis Recent Fever Within 48 Hours No Sepsis New/Unexplained Change in Mental Status N/A Sepsis Action Taken by Nursing No Action Required Oxygen Flow Rate - Titration 3 Pulse Oximetry Post Tiitration 94 01/31/20 18:35 01/31/20 18:36 01/31/20 18:40 Temperature Temperature Source Pulse Rate 76 75 77 Pulse Rate from SpO2 Sensor 78 77 76 Pulse Rhythm Pulse Strength Respiratory Rate 21 28 H 16 Respiratory Effort / Characteristics Respiratory Depth Respiratory Pattern Blood Pressure 167/82 H Blood Pressure Mean 118 Blood Pressure Position Pulse Oximetry 93 93 94 Oxygen Delivery Method Oxygen Flow Rate Sepsis Recent Fever Within 48 Hours Sepsis New/Unexplained Change in Mental Status Sepsis Action Taken by Nursing Oxygen Flow Rate - Titration Pulse Oximetry Post Tiitration 01/31/20 18:44 01/31/20 19:06 01/31/20 19:15 Temperature Temperature Source Pulse Rate 77 76 74 Pulse Rate from SpO2 Sensor 78 Pulse Rhythm Pulse Strength Respiratory Rate 22 32 H 29 H Respiratory Effort / Characteristics Respiratory Depth Respiratory Pattern Blood Pressure 165/77 H 161/76 H 151/72 H Blood Pressure Mean 113 114 93 Blood Pressure Position Pulse Oximetry 93 90 94 Oxygen Delivery Method Nasal Cannula Nasal Cannula Oxygen Flow Rate 3 3 Sepsis Recent Fever Within 48 Hours Sepsis New/Unexplained Change in Mental Status Sepsis Action Taken by Nursing Oxygen Flow Rate - Titration Pulse Oximetry Post Tiitration 01/31/20 19:31 01/31/20 19:45 01/31/20 20:00 Temperature Temperature Source Pulse Rate 70 69 70 Pulse Rate from SpO2 Sensor 70 69 70 Pulse Rhythm Pulse Strength Respiratory Rate 20 25 H 24 Respiratory Effort / Characteristics Respiratory Depth Respiratory Pattern Blood Pressure 167/79 H 166/91 H 169/88 H Blood Pressure Mean 94 128 140 Blood Pressure Position Pulse Oximetry 95 95 95 Oxygen Delivery Method Nasal Cannula Nasal Cannula Nasal Cannula Oxygen Flow Rate 3 3 3 Sepsis Recent Fever Within 48 Hours Sepsis New/Unexplained Change in Mental Status Sepsis Action Taken by Nursing Oxygen Flow Rate - Titration Pulse Oximetry Post Tiitration 01/31/20 20:15 01/31/20 20:16 01/31/20 20:30 Temperature Temperature Source Pulse Rate 68 67 69 Pulse Rate from SpO2 Sensor 69 67 69 Pulse Rhythm Pulse Strength Respiratory Rate 16 19 24 Respiratory Effort / Characteristics Respiratory Depth Respiratory Pattern Blood Pressure 159/94 H 149/112 H Blood Pressure Mean 111 118 Blood Pressure Position Pulse Oximetry 94 95 91 Oxygen Delivery Method Nasal Cannula Nasal Cannula Room Air Oxygen Flow Rate 3 3 Sepsis Recent Fever Within 48 Hours Sepsis New/Unexplained Change in Mental Status Sepsis Action Taken by Nursing Oxygen Flow Rate - Titration Pulse Oximetry Post Tiitration 01/31/20 20:31 01/31/20 20:45 01/31/20 20:46 Temperature Temperature Source Pulse Rate 69 72 68 Pulse Rate from SpO2 Sensor 69 73 69 Pulse Rhythm Pulse Strength Respiratory Rate 22 16 15 Respiratory Effort / Characteristics Respiratory Depth Respiratory Pattern Blood Pressure 156/73 H Blood Pressure Mean 124 Blood Pressure Position Pulse Oximetry 90 92 93 Oxygen Delivery Method Room Air Room Air Room Air Oxygen Flow Rate Sepsis Recent Fever Within 48 Hours Sepsis New/Unexplained Change in Mental Status Sepsis Action Taken by Nursing Oxygen Flow Rate - Titration Pulse Oximetry Post Tiitration 01/31/20 20:53 01/31/20 21:00 01/31/20 21:01 Temperature Temperature Source Pulse Rate 69 Pulse Rate from SpO2 Sensor 70 68 Pulse Rhythm Pulse Strength Respiratory Rate Respiratory Effort / Characteristics Respiratory Depth Respiratory Pattern Blood Pressure 156/70 H Blood Pressure Mean 89 Blood Pressure Position Pulse Oximetry 91 91 Oxygen Delivery Method Room Air Room Air Room Air Oxygen Flow Rate 3 Sepsis Recent Fever Within 48 Hours Sepsis New/Unexplained Change in Mental Status Sepsis Action Taken by Nursing Oxygen Flow Rate - Titration 0 Pulse Oximetry Post Tiitration 92 Home Medications Current Medication List: was personally reviewed by me Laboratory Data Attestation: I reviewed the patient's lab results. Result diagrams: 01/31/20 18:32 01/31/20 18:32 Lab Results 01/31/20 01/31/20 01/31/20 Range/Units 18:32 18:32 18:32 WBC 8.42 (4.8-10.8) K/uL RBC 3.65 L (4.7-6.1) M/uL Hgb 11.3 L (14.0-18.0) g/dL Hct 35.8 L (42-52) % MCV 98.1 (80-100) fL MCH 31.0 (25-34) pg MCHC 31.6 L (32-36) g/dL RDW Std Deviation 54.2 H (36.4-46.3) fL RDW Coeff of Atif 15.2 H (11.5-14.5) % Plt Count 232 (130-400) K/uL MPV 10.4 (7.4-10.4) fL Immature Gran % (Auto) 0.2 % Neut % (Auto) 70.9 % Lymph % (Auto) 13.8 % Nolan % (Auto) 8.6 % Eos % (Auto) 6.3 % Baso % (Auto) 0.2 % Neut # (Auto) 5.97 (1.4-6.5) K/uL Lymph # (Auto) 1.16 L (1.2-3.4) K/uL Nolan # (Auto) 0.72 H (0.11-0.59) K/uL Eos # (Auto) 0.53 H (0-0.5) K/uL Baso # (Auto) 0.02 (0-0.2) K/uL Immature Gran # (Auto) 0.02 (0.00-0.02) K/uL PT 10.9 (9.0-12.0) Seconds INR 1.0 (0.9-1.1) APTT 31.3 H (21.0-31.0) Seconds PTT Ratio 1.1 Sodium 140 (136-145) mmol/L Potassium 4.4 (3.5-5.1) mmol/L Chloride 106 (98-107) mmol/L Carbon Dioxide 28 (21-32) mmol/L Anion Gap 6.0 (3-11) BUN 39 H (7-18) mg/dl Creatinine 4.59 H* (0.6-1.4) mg/dl Est Cr Clr Drug Dosing 21.3 ml/min Est GFR ( Amer) 14.2 Est GFR (Non-Af Amer) 12.3 BUN/Creatinine Ratio 8.6 L (10-20) Glucose 282 H (70-99) mg/dl Calcium 8.4 L (8.5-10.1) mg/dl Total Bilirubin 0.3 (0.2-1) mg/dl AST 14 L (15-37) U/L ALT 15 (12-78) U/L Alkaline Phosphatase 54 (45-117) U/L Total Creatine Kinase 71 (39-308) U/L CK-MB (CK-2) 1.2 (0.5-3.6) ng/ml CK/CKMB % Calc 1.7 (0-3.0) Troponin I < 0.015 (0-0.045) ng/ml Total Protein 7.1 (6.4-8.2) gm/dl Albumin 3.1 L (3.4-5.0) gm/dl Globulin 4.0 (2.5-4.0) gm/dl Albumin/Globulin Ratio 0.8 L (0.9-2) Lipase 230 (73-393) U/L Administered Medications Discontinued Medications Al Hydrox/Mg Hydrox/Simethicone (Aluminum/Magnesium Susp 30 Ml Udc) 30 ml PO NOW STA Stop: 01/31/20 18:23 Last Admin: 01/31/20 18:45 Dose: 30 ml Documented by: [id number] Aspirin (Aspirin Chew 324 Mg) 324 mg PO NOW STA Stop: 01/31/20 18:23 Last Admin: 01/31/20 18:45 Dose: 324 mg Documented by: [id number] Nitroglycerin (Nitroglycerin Sl 0.4 Mg/Tab Tab) 0.4 mg SL NOW STA Stop: 01/31/20 18:23 Last Admin: 01/31/20 18:45 Dose: 0.4 mg Documented by: [id number] Imaging Data Radiologist's Impression: XR chest 1V portable HISTORY: Atypical Chest Pain COMPARISON: Chest 01/04/2020. FINDINGS: The heart remains mildly enlarged. The lungs are clear. No pleural effusions. No pneumothorax. No evidence for pulmonary edema. IMPRESSION: No significant change compared to the prior study. No acute process. Stable mild cardiomegaly. ACT 112: Negative or not required by law. Electronically signed by: Delfin Chan M.D. 01/31/2020 6:53 PM Dictated: 01/31/201850 Transcribed: 01/31/201850 Blood Pressure Blood Pressure Findings: Elevated blood pressure Blood Pressure Disposition: further management by hospitalist Discharge Plan Visit Data Chief Complaint: Chest Pain Stated Complaint: chest pain ED Provider: Chuck Griffiths Discharge Problem: Chest pain, Renal failure Patient Disposition: Being Evaluated by Hospitalist Condition: Good Discharge Instructions Interventions: ED Discharge Assessment Last Done: 01/31/20 21:53
[2020-01-31 19:23] LABS: Alanine Aminotransferase 15 U/L (12-78); Albumin Globulin Ratio 0.8 (0.9-2); Albumin Level 3.1 gm/dl (3.4-5.0); Alkaline Phosphatase 54 U/L (45-117); Aspartate Aminotransferase 14 U/L (15-37); BUN Creatinine Ratio 8.6 (10-20); Bilirubin,Total 0.3 mg/dl (0.2-1); Blood Urea Nitrogen 39 mg/dl (7-18); Calcium 8.4 mg/dl (8.5-10.1); Carbon Dioxide 28 mmol/L (21-32); Chloride 106 mmol/L (98-107); Creatine Kinase 71 U/L (39-308); Creatine Kinase MB 1.2 ng/ml (0.5-3.6); Creatinine Clr Calc Pharmacy 21.3 ml/min; Est GFR (African American) 14.2; Est GFR (Non-African American) 12.3; Glucose 282 mg/dl (70-99); Lipase 230 U/L (73-393); Potassium 4.4 mmol/L (3.5-5.1); Sodium 140 mmol/L (136-145); Total Protein 7.1 gm/dl (6.4-8.2); Troponin I < 0.015 ng/ml (0-0.045)
[2020-01-31] MEDS ORDERED: NITROGLYCERIN SL 0.4 MG/TAB TAB SL PRN ×2 (21:20→22:20)
[2020-01-31] MEDS ORDERED: ALUMINUM/MAGNESIUM SUSP 30 ML UDC PO PRN (21:20)
[2020-01-31] MEDS ORDERED: ONDANSETRON INJ 2 MG/ML 2 ML VIAL IV PRN (21:20)
[2020-01-31] MEDS ORDERED: ACETAMINOPHEN 325 MG TAB PO PRN (21:20)
[2020-01-31] MEDS ORDERED: POLYETHYLENE (MIRALAX) 17 GM PACK PO PRN (21:20)
--- NOTE | 2020-01-31 21:20 | History & Physical Report ---
Date of Service January 31, 2020 Assessment & Plan (1) Chest pain: Angel Solorio is a 69-year-old male with a notable past medical history of GERD, CAD s/p 2x mid-LAD stents in 2019 and at prox-LAD in 12/2019, HFpEF with last EF at 55-60% in 12/2019, atrial flutter, insulin-dependent type 2 diabetes, ESRD on hemodialysis, HLD, HTN, RADHA without CPAP, and sinus node dysfunction status post pacemaker placement in 2019 who presented to the emergency department earlier this evening for acute evaluation of chest pain starting today, now resolving s/p ASA and nitro x 1 and Maalox in the ED. He is hemodynamically stable. 1. Chest Pain in Setting of Recent LAD Stenting (12/2019) -- r/o cardiac origin vs. GI etiology -Clinically, patient reports beginning to have a burning chest pain beginning at 4:30 PM following a very large meal. He said that this was associated with shortness of breath. He reports minimal symptoms at the time of his admission. No exertional angina, general shortness of breath, PND, or orthopnea since last admission at the end of December. Reports taking ASA and plavix as prescribed, except for missing ASA 81 the last two days because he ran out. Based on his description of the symptoms alone and the presence of epigastric pain on p hysical exam, it would appear that his symptoms are primarily gastrointestinal in origin, secondary to reflux following a very large meal. However, the pain radiating to his shoulders and neck is atypical when paired with the chest pain; given that he just had catheterization and a new LAD stent placed this over a month ago, r/o in-stent restenosis vs. new ischemia. Low concern for pulmonary origin. -EKG demonstrated normal sinus rhythm with no ST-T abnormalities or acute changes. -Troponin and CK-MB within normal limits since arrival -- continue to trend x2 -Chest x-ray unremarkable for any acute processes -Cardiology consulted; will hold off on ordering echo at this time -Admit to PCU/telemetry for continued monitoring overnight -Nitro sublingual as needed. -Initiate pantoprazole 2. CAD s/p catheterization and stenting 2x at mid-LAD in 2019 and at prox-LAD in 12/2019 -See chest pain above -Continue home plavix and ASA -Continue home atorvastatin 3. CKD Stage V / ESRD -ED labs demonstrated BUN 39, creatinine 4.59 -Patient is typically scheduled to have dialysis on Monday, , and Mondaynormally would have been tomorrow -Nephrology consult placed for dialysis initiation -Continue ProRenal qPM -Continue Renvela 4. Atrial flutter, previously with RVR during admission 12/2019 -- not currently present on ECG -EKG obtained in the emergency room demonstrated normal sinus rhythm --atrial flutter not present -Telemetry as above/continue monitoring -Prior to his last discharge in , patient was supposed to begin amiodarone to aid with rate control; as he has not initiated this since his last hospitalization, will hold off on initiating at this time given his good rates and normal EKG. -Await recs from cardiology re: amiodarone reinitiation Chronic Medical Problems -HFpEF (EF 55-60% 12/2019): No signs of volume overload at this time -- Continue home lasix 80mg PO b.i.d., coreg 6.25mg PO b.i.d. -ID-DM2: Placed on insulin SQ protocol -- home lantus is 50U sq b.i.d.; takes novolog with meals -HTN: Continue home medications -- amlodipine, clonidine as directed -BPH: Continue tamsulosin Dispo: PCU w/ Telemetry in setting of new chest pain, recent catheterization and stenting in 12/2019 F/E/N: Cardiac diet PPX: Heparin gtt, SCDs Code: Full code (2) Paroxysmal atrial flutter: (3) End-stage renal disease on hemodialysis: (4) S/P coronary artery stent placement: (5) Sinus node dysfunction: (6) (HFpEF) heart failure with preserved ejection fraction: (7) CAD (coronary artery disease): (8) Sleep apnea: (9) HTN (hypertension): (10) Depression: Admission and Anticipated Discharge Date Admission Date: 01/31/20 History of Present Illness Primary Care Provider: Shiv Gallardo MD Angel Solorio is a 69-year-old male with a notable past medical history of GERD, CAD s/p 2x mid-LAD stents in 2019 and at prox-LAD in 12/2019, HFpEF with last EF at 55-60% in 12/2019, atrial flutter, insulin-dependent type 2 diabetes, ESRD on hemodialysis, HLD, HTN, RADHA without CPAP, and sinus node dysfunction status post pacemaker placement in 2019 who presented to the emergency department earlier this evening for acute evaluation of chest pain starting today. Patient reports that just before 4:30 PM, he had a heavy meal consisting of beef, beans, multiple hotdogs, and soon after experienced a burning-quality, 4/10 persistent chest pain that was also associated with some shortness of breath and some coughing. He noted that this pain extended bilaterally to his shoulders and up his neck, into the back of his head. He said that the onset was gradual, and not sudden. He actually attributed this pain to reflux, but because he was just in the hospital last month where he was found to have proximal occlusion of the LAD and had a stent placed, he wanted to be safe and undergo evaluation of the hospital. Since this time in the hospital, he reports that he has not had any chest pain, palpitations, or shortness of breath. Denies PND and orthopnea since last admission. Denies peripheral edema. Missed ASA 81 doses last two days because he ran out, but has otherwise been taking ASA and Plavix as prescribed since last admission. However, at his last stay he was started on amiodarone, which he notes he has not started yet. Since arrival to the ED, he has been hemodynamically stable but mildly hypertensive. His EKG demonstrated normal sinus rhythm without any acute ST-T abnormalities. His troponins have been <0.015. and CK-MB was WNL at 1.2. Chest x-ray was not significant for any acute processes. His laboratories did demonstrate anemia with a hemoglobin at 11.3, unchanged since last admission 01/05. BMP was remarkable only for BUN at 39 and creatinine at 4.59, in the setting of ESRD. Hyperglycemic at 282. Upon arrival he did receive Maalox, aspirin 324, and nitroglycerin sublingual x1. Upon talking with the patient, he reports feeling well and with his pain at about 1 out of 10. He feels comfortable and denies any shortness of breath. Given his recent stenting, he was called for admission. He denies any fatigue, fevers, chills, night sweats, nausea, vomiting, diarrhea. Otherwise per HPI Allergies Allergy/AdvReac Type Severity Reaction Status Date / Time ragweed pollen Allergy Mild [place] Verified 01/31/20 19:39 Home Medications Home Medications Medication Instructions Recorded Confirmed Type albuterol sulfate 2 puff INHALATION Q6H PRN 01/06/19 01/31/20 History furosemide [Lasix] 80 mg PO BID 01/06/19 01/31/20 History insulin aspart U-100 [Novolog 10 unit SUBCUT AC 01/06/19 01/31/20 History PenFill U-100 Insulin] loratadine 10 mg PO DAILY PRN 01/06/19 01/31/20 History sertraline 25 mg PO QAM 01/06/19 01/31/20 History tamsulosin 0.4 mg PO QAM 01/06/19 01/31/20 History Lantus Solostar U-100 Insulin 50 unit SUBCUT BID 03/06/19 01/31/20 History aspirin [Aspir-81] 81 mg PO DAILY 03/06/19 01/31/20 History carvedilol [Coreg] 6.25 mg PO BID 03/06/19 01/31/20 History clopidogrel [Plavix] 75 mg PO DAILY 03/06/19 01/31/20 History ProRenal 1 tab PO QPM 09/26/19 01/31/20 History sevelamer carbonate [Renvela] 800 mg PO TIDM 09/26/19 01/31/20 History amiodarone 200 mg tablet See Rx Instructions .ROUTE 12/18/19 01/31/20 Rx .COMPLEX #45 tab amlodipine 10 mg tablet 5 mg PO QAM tab 12/18/19 01/31/20 History clonidine HCl 0.1 mg tablet 0.1 mg PO DIRECTED 12/18/19 01/31/20 History atorvastatin 40 mg PO PM #30 tab 12/27/19 01/31/20 Rx nitroglycerin [Nitrostat] 0.4 mg SUBLINGUAL UD PRN #20 tab 12/27/19 01/31/20 Rx Unknown Med @ Dialysis 1 tab PO 3XWK 01/31/20 01/31/20 History Past Med/Surg History Medical History Anemia CAD (coronary artery disease) s/p stent 2018 CHF exacerbation Chronic kidney disease, stage 4 (severe) CKD (chronic kidney disease) Stage 4 Diabetes Dyslipidemia Elevated troponin Elevated troponin HTN (hypertension) Orthostatic dizziness Paroxysmal atrial fibrillation Sinus node dysfunction Sleep apnea does not use CPAP Surgical History AV fistula History of loop recorder Implanted 05/01/2019 S/P coronary artery stent placement Family History Other Hypertension Social History Smoking Status: Former smoker Tobacco Type: Cigarettes Cigarettes Per Day: 10; Second Hand Exposure: No; Do You Dip or Chew Tobacco: No; Tobacco Cessation Education Requested by Patient: No Hx Alcohol Use: No Hx Substance Use: No Preferred Language: Persian Communication Ability: Effective Build Engineer Required: No Beliefs That Will Affect Care: None marital status: Current Living Situation: Alone How many Children do You have: 0 Feels Safe at Home: Yes Safety Concerns: Feels Safe At This Time Review of Systems Review of Systems: Per HPI Physical Exam Constitutional: 69-year-old man that is sitting at the edge of his bed, relaxed and watching TV. Upon conversing, he is speaking in full sentences without any acute distress. He is alert and oriented. Eyes: PERRL, conjunctivae normal, anicteric sclerae ENMT: external ear and nose normal, oropharynx normal Respiratory: Good respiratory effort without use of any accessory muscles. Speaking full sentences without dyspnea. Auscultation perhaps reveals mild decrease breath sounds at the bases, but otherwise clear to auscultation bilaterally without any crackles or wheezes. Cardiovascular: Normal rate and regular rhythm. S1 and S2 present without any murmurs rubs or gallops. Upper extremity pulses 2+. Lower extremities do display venous stasis, but no peripheral edema. Gastrointestinal (Abdomen): Abdomen is soft and obese, not grossly distended. There is some mild tenderness to palpation in the epigastric region, but otherwise not elsewhere. No rebound or guarding. Musculoskeletal: There is mild pain to palpation in the paracervical regions, extending up into the occiput. No firmness or structural abnormalities appreciated. Skin: As per cardiovascular exam Psychiatric: A+Ox3, euthymic affect Results & Data Results & Data ([facility]) Vital Signs (Past 12 Hours) Vital Signs Temp Pulse Resp BP Pulse Ox 01/31/20 20:45 72 16 156/73 H 92 01/31/20 20:31 69 22 90 01/31/20 20:30 69 24 149/112 H 91 01/31/20 20:16 67 19 95 01/31/20 20:15 68 16 159/94 H 94 01/31/20 20:00 70 24 169/88 H 95 01/31/20 19:45 69 25 H 166/91 H 95 01/31/20 19:31 70 20 167/79 H 95 01/31/20 19:15 74 29 H 151/72 H 94 01/31/20 19:06 76 32 H 161/76 H 90 01/31/20 18:44 77 22 165/77 H 93 01/31/20 18:40 77 16 94 01/31/20 18:36 75 28 H 167/82 H 93 01/31/20 18:35 76 21 93 01/31/20 18:30 77 17 94 01/31/20 18:27 79 24 91 01/31/20 18:22 36.9 C 76 25 H 167/80 H 89 L Supervising Physician Co-Signing Physician Notes Attending addendum: I have physically seen this patient, have supervised the medical residents activities, and agree with the H&P unless as otherwise noted. Assessment and Plan: Chest pain/CAD/status post proximal LAD stent 12/2019 /mid LAD stent times 06/2018/hypertension- The patient will be admitted to telemetry for serial cardiac enzymes, serial EKG's, cardiac rhythm monitoring and a 2-D echocardiogram with Dopplers. Continue amiodarone, amlodipine, aspirin, carvedilol, clonidine, clopidogrel and furosemide Consult cardiology ESRD on HD Dialysis on Monday, and Monday Consult nephrology Continue usual meds. Diabetes mellitus- Continue Lantus 50 units subcu twice daily. Patient Accu-Cheks before meals and at bedtime with NovoLog coverage per scale Remaining orders and notations as noted Resident Activity Tracking Resident Involvement: Resident Care Provided Care Provided: Adult Hospital Medicine (1) Sleep apnea Sleep apnea type: unspecified type Qualified Code(s): G47.30 - Sleep apnea, unspecified (2) CAD (coronary artery disease) Associated angina: without angina Coronary Disease-Associated Artery/Lesion type: [place] artery [place] vs. transplanted heart: [place] heart Qualified Code(s): I25.10 - Atherosclerotic heart disease of [place] coronary artery without angina pectoris (3) Depression Active/Remission status: remission status unspecified Depression Type: major depressive disorder Major depression recurrence: recurrent Qualified Code(s): F33.9 - Major depressive disorder, recurrent, unspecified (4) HTN (hypertension) Hypertension type: essential hypertension Qualified Code(s): I10 - Essential (primary) hypertension
[2020-01-31] MEDS ORDERED: GLUCOSE 10 TABS/TUBE PO PRN (22:20)
[2020-01-31] MEDS ORDERED: GLUCOSE 40% GEL 15 GM TUBE PO PRN (22:20)
[2020-01-31] MEDS ORDERED: CARBOHYDRATES FOR HYPOGLYCEMIA PO PRN (22:20)
[2020-01-31] MEDS ORDERED: ALBUTEROL HFA 8 GM INHALER INH PRN (22:20)
[2020-01-31] MEDS ORDERED: DEXTROSE 50% 50 ML SYRINGE IV PRN (22:20)
[2020-01-31] MEDS ORDERED: LORATADINE 10 MG TAB PO PRN (22:20)
[2020-01-31] MEDS ORDERED: GLUCAGON FOR INJ 1 MG VIAL SQ PRN (22:20)
[2020-01-31] MEDS ORDERED: PHARMACY GLYCEMIC MGMT CONSULT PRN (22:23)
[2020-01-31] MEDS: HEPARIN SOD 5,000 UNIT/0.5 ML VIAL SQ SCH (23:37)
[2020-01-31] MEDS: cloNIDine HCL 0.1 MG TAB PO SCH (23:37)
[2020-01-31] MEDS: INSULIN ASPART 100 UNITS/ML 3 ML PEN SC SCH (23:38)
[2020-01-31] MEDS: INSULIN GLARGINE SOLOSTAR 100 UNITS/ML 3 ML PEN SC SCH (23:39)
[2020-02-01] MEDS: HEPARIN SOD 5,000 UNIT/0.5 ML VIAL SQ SCH (06:01)
--- NOTE | 2020-02-01 06:44 | Hospitalist Progress Note ---
Date of Service February 01, 2020 Assessment & Plan (1) Chest pain: Angel Solorio is a 69-year-old male with a notable past medical history of GERD, CAD s/p 2x mid-LAD stents in 2019 and at prox-LAD in 12/2019, HFpEF with last EF at 55-60% in 12/2019, atrial flutter, insulin-dependent type 2 diabetes, ESRD on hemodialysis, HLD, HTN, RADHA without CPAP, and sinus node dysfunction status post pacemaker placement in 2018 who presented to the emergency department for acute evaluation of chest pain starting today which resolved s/p ASA and nitro x 1 and Maalox in the ED. 1. Chest Pain in Setting of Recent LAD Stenting (12/2019) -- r/o cardiac origin vs. GI etiology -Patient initially reporting burning chest pain secondary to a large meal which was associated with SOB -Notes symptoms resolved entirely in ED s/p ASA, Nitro, and Maalox -Of note patient had not had ASA x2 days prior to admission due to "running out." -Recent stenting 2x mid LAD 2018 and 1x prox LAD 12/2019 -EKG with NSR without ST-T wave abnormalities -Initial troponin negative, trend q6h 0.811 -> 1.340 -> 0.725 -CXR unremarkable for acute process -Continue Pantoprazole -Cardiology Consulted -Due to patients complex history and stents while consistent with "indigestion" will treat as NSTEMI -Continue dual anti-platelet therapy ASA and Clopidogrel, beta ginger, atorvastatin -Hep gtt -Plan for coronary angiography Monday -plan for interrogation of patients loop recorder 2. CAD s/p catheterization and stenting 2x at mid-LAD in 2018 and at prox-LAD in 12/2019 -See chest pain above -Continue home plavix and ASA -Continue home atorvastatin 3. CKD Stage V / ESRD -ED labs demonstrated BUN 39, creatinine 4.59 -Patient is typically scheduled to have dialysis on Monday, , and Monday -Nephrology consult placed for dialysis initiation -Dialysis completed today -Continue ProRenal qPM -Continue Renvela 4. Atrial flutter, previously with RVR during admission 12/2019 -- not currently present on ECG -EKG obtained in the emergency room demonstrated normal sinus rhythm --atrial flutter not present -Telemetry as above/continue monitoring -Prior to his last discharge in , patient was supposed to begin amiodarone to aid with rate control; as he has not initiated this since his last hospitalization, will hold off on initiating at this time given his good rates and normal EKG. -Cardiology will check loop recorder Chronic Medical Problems -HFpEF (EF 55-60% 12/2019): No signs of volume overload at this time -- Continue home lasix 80mg PO b.i.d., coreg 6.25mg PO b.i.d. -ID-DM2: Placed on insulin SQ protocol -- home lantus is 50U sq b.i.d.; takes novolog with meals -HTN: Continue home medications -- amlodipine, clonidine as directed -BPH: Continue tamsulosin Dispo: PCU w/ Telemetry F/E/N: Cardiac diet PPX: Heparin gtt, SCDs Code: Full code (2) Paroxysmal atrial flutter: (3) End-stage renal disease on hemodialysis: (4) S/P coronary artery stent placement: (5) Sinus node dysfunction: (6) (HFpEF) heart failure with preserved ejection fraction: (7) CAD (coronary artery disease): (8) Sleep apnea: (9) HTN (hypertension): (10) Depression: Admission and Anticipated Discharge Date Admission Date: January 31, 2020 Supervising Physician Co-Signing Physician Notes I personally examined the patient and verified all roamn points of history and exam, discussed case, and agree with decision making with Dr Murphy feeling fine - seen after HD. no further CP vitals noted nad heent nc at mmm breathing unlabored no accessory muscles good effort skin no rashes no pallor or icterus neuro no focal deficits NSTEMI - cath monday. med management for now. sx abated. otherwise as above Subjective Patient evaluated while receiving hemodialysis this AM. Patient though initially difficult to arouse, was able to respond appropriately after external stimulation. Patient noting that since arriving he has not had chest pain. He does note some R sided rib discomfort stating that he "bruised it." Denies any SOB, chest pressure, chest pain. Otherwise notes he feels well. Review of Systems Constitutional: no fever, no chills, no fatigue and no weakness Eyes: no worsening vision Respiratory: no cough and no dyspnea Cardiovascular: no chest pain, no radiating jaw, neck or arm pain and no palpitations Gastrointestinal: no abdominal pain, no nausea and no vomiting Physical Exam Constitutional: well developed and well nourished; no acute distress Eyes: PERRL, conjunctivae normal, anicteric sclerae Respiratory: normal respiratory effort, lungs clear to auscultation Cardiovascular: RRR, no murmur, no edema Gastrointestinal (Abdomen): normal bowel sounds, soft, nontender, no hepatosplenomegaly Results & Data Results & Data ([facility]) Vital Signs (Past 12 Hours) Vital Signs Temp Pulse Pulse Resp BP BP Pulse Ox 02/01/20 03:49 36.3 C L 48 L 18 157/70 H 95 01/31/20 23:31 36.6 C 54 L 16 146/63 H 95 01/31/20 23:00 56 L 01/31/20 22:00 36.6 C 55 L 16 158/72 H 93 01/31/20 21:45 144/74 H 96 01/31/20 21:31 96 01/31/20 21:30 150/75 H 97 01/31/20 21:01 91 01/31/20 21:00 69 156/70 H 91 01/31/20 20:46 68 15 93 01/31/20 20:45 72 16 156/73 H 92 01/31/20 20:31 69 22 90 01/31/20 20:30 69 24 149/112 H 91 01/31/20 20:16 67 19 95 01/31/20 20:15 68 16 159/94 H 94 01/31/20 20:00 70 24 169/88 H 95 01/31/20 19:45 69 25 H 166/91 H 95 01/31/20 19:31 70 20 167/79 H 95 01/31/20 19:15 74 29 H 151/72 H 94 01/31/20 19:06 76 32 H 161/76 H 90 Resident Activity Tracking Resident Involvement: Resident Care Provided Care Provided: Adult Hospital Medicine (1) Sleep apnea Sleep apnea type: unspecified type Qualified Code(s): G47.30 - Sleep apnea, unspecified (2) CAD (coronary artery disease) Associated angina: without angina Coronary Disease-Associated Artery/Lesion type: [place] artery [place] vs. transplanted heart: [place] heart Qualified Code(s): I25.10 - Atherosclerotic heart disease of [place] coronary artery without angina pectoris (3) Depression Active/Remission status: remission status unspecified Depression Type: major depressive disorder Major depression recurrence: recurrent Qualified Code(s): F33.9 - Major depressive disorder, recurrent, unspecified (4) HTN (hypertension) Hypertension type: essential hypertension Qualified Code(s): I10 - Essential (primary) hypertension
[2020-02-01] MEDS: carvediloL 6.25 MG TAB PO SCH ×2 (08:10→20:29)
[2020-02-01] MEDS: ASPIRIN 81 MG ECTAB PO SCH (08:10)
[2020-02-01] MEDS: TAMSULOSIN HCL 0.4 MG CAP PO SCH (08:10)
[2020-02-01] MEDS: CLOPIDOGREL BISULFATE 75 MG TAB PO SCH (08:10)
[2020-02-01] MEDS: SEVELAMER HCL 800 MG TABLET PO SCH ×3 (08:10→17:24)
[2020-02-01] MEDS: AMLODIPINE BESYLATE 5 MG TAB PO SCH (08:11)
[2020-02-01] MEDS: PANTOprazole 40 MG TAB PO SCH (08:11)
[2020-02-01] MEDS: FUROSEMIDE 80 MG TAB PO SCH ×2 (08:11→17:24)
[2020-02-01] MEDS: SERTRALINE HCL 50 MG TABLET PO SCH (08:11)
[2020-02-01] MEDS: cloNIDine HCL 0.1 MG TAB PO SCH ×2 (08:11→20:29)
[2020-02-01] MEDS: INSULIN GLARGINE SOLOSTAR 100 UNITS/ML 3 ML PEN SC SCH ×3 (08:12→20:31)
[2020-02-01] MEDS: INSULIN ASPART 100 UNITS/ML 3 ML PEN SC SCH ×4 (08:13→20:35)
--- NOTE | 2020-02-01 11:02 | Cardiology Consultation ---
Date of Consultation February 01, 2020 Assessment & Plan (1) NSTEMI (non-ST elevated myocardial infarction): The patient describes his symptoms as consistent with indigestion, there are some concerning features. Additionally, he has elevated cardiac biomarkers in did run out of aspirin for 2 days. He had PCI just over 1 month ago. While this is not appear to represent acute stent thrombosis, there is still enough concern regarding acute coronary syndrome. I think we will continue the patient's dual anti-platelet therapy and start intravenous heparin. We will plan on coronary angiography Monday provided the patient does not have recurrent symptoms. (2) CAD (coronary artery disease): To interventions to the proximal LAD over the past year. The patient will be continued on dual anti-platelet therapy, beta blockade and high-dose sudhakar rvastatin. (3) Paroxysmal atrial flutter: He presented late last year with atrial flutter. This appeared to have resolved spontaneously. He was supposed to start amiodarone, but has not started the medication by his report. He was not placed on anticoagulation. He has an implantable loop recorder which can be interrogated to see if he has had other episodes of atrial arrhythmia. (4) Sinus node dysfunction: He seems to have sinus bradycardia at times. Does not appear to be symptomatic. I will interrogate his loop recorder during this admission. And a believes any specific intervention required currently. History of Present Illness Reason for Consultation: Chest pain, elevated troponin Requesting Physician: Denisse Attending Physician: Alli Manzo DO History of Present Illness The patient is a 69-year-old gentleman with a history of coronary disease having previously undergone PCI to the LAD on 2 occasions. The patient reports eating a large meal yesterday around 4:30 p.m.. This contained beef. In the past he has had some stomach issues after eating beef. He states that shortly after eating beef he began to experience chest discomfort. He felt that the symptoms were from milieu to him but more severe than normal. The involved discomfort in the upper chest area and neck. He also had some discomfort in the jaw. He had some associated dyspnea. Due to the severe nature of the symptoms and the fact that it did not resolve within 30 minutes he went to the emergency room. Patient states that he was initially given sublingual nitroglycerin with minimal effect but found relief of his symptoms with ingestion of Maalox. He has had symptoms of this nature before and associates them with indigestion. One month ago the patient underwent stress testing which involved exercise. He had significant EKG changes and was markedly dyspneic with exercise. However, he did not have similar symptoms or any symptoms of chest discomfort at that time. He does report missing 2 doses of aspirin over the past 2 days. He has undergone dialysis uneventfully, and in fact states that recently dialysis is gone better than usual. He has been ambulatory around his room this morning without recurrent symptoms. Allergies Allergy/AdvReac Type Severity Reaction Status Date / Time ragweed pollen Allergy Mild [place] Verified 01/31/20 19:39 Home Medications Home Medications Medication Instructions Recorded Confirmed Type albuterol sulfate 2 puff INHALATION Q6H PRN 01/06/19 01/31/20 History furosemide [Lasix] 80 mg PO BID 01/06/19 01/31/20 History insulin aspart U-100 [Novolog 10 unit SUBCUT AC 01/06/19 01/31/20 History PenFill U-100 Insulin] loratadine 10 mg PO DAILY PRN 01/06/19 01/31/20 History sertraline 25 mg PO QAM 01/06/19 01/31/20 History tamsulosin 0.4 mg PO QAM 01/06/19 01/31/20 History Lantus Solostar U-100 Insulin 50 unit SUBCUT BID 03/06/19 01/31/20 History aspirin [Aspir-81] 81 mg PO DAILY 03/06/19 01/31/20 History carvedilol [Coreg] 6.25 mg PO BID 03/06/19 01/31/20 History clopidogrel [Plavix] 75 mg PO DAILY 03/06/19 01/31/20 History ProRenal 1 tab PO QPM 09/26/19 01/31/20 History sevelamer carbonate [Renvela] 800 mg PO TIDM 09/26/19 01/31/20 History amiodarone 200 mg tablet See Rx Instructions .ROUTE 12/18/19 01/31/20 Rx .COMPLEX #45 tab amlodipine 10 mg tablet 5 mg PO QAM tab 12/18/19 01/31/20 History clonidine HCl 0.1 mg tablet 0.1 mg PO DIRECTED 12/18/19 01/31/20 History atorvastatin 40 mg PO PM #30 tab 12/27/19 01/31/20 Rx nitroglycerin [Nitrostat] 0.4 mg SUBLINGUAL UD PRN #20 tab 12/27/19 01/31/20 Rx Unknown Med @ Dialysis 1 tab PO 3XWK 01/31/20 01/31/20 History Patient History Medical History Anemia CAD (coronary artery disease) s/p stent 2018 CHF exacerbation Chronic kidney disease, stage 4 (severe) CKD (chronic kidney disease) Stage 4 Diabetes Dyslipidemia Elevated troponin Elevated troponin HTN (hypertension) Orthostatic dizziness Paroxysmal atrial fibrillation Sinus node dysfunction Sleep apnea does not use CPAP Surgical History AV fistula History of loop recorder Implanted 05/01/2019 S/P coronary artery stent placement Family History Other Hypertension Social History Smoking Status: Former smoker Tobacco Type: Cigarettes Cigarettes Per Day: 10; Second Hand Exposure: No; Do You Dip or Chew Tobacco: No; Tobacco Cessation Education Requested by Patient: No Hx Alcohol Use: No Hx Substance Use: No Preferred Language: Polish Communication Ability: Effective Learning Designer Required: No Beliefs That Will Affect Care: None marital status: Current Living Situation: Alone How many Children do You have: 0 Feels Safe at Home: Yes Safety Concerns: Feels Safe At This Time Review of Systems Review of Systems: All systems reviewed & are unremarkable except as noted in HPI & below Umbilical hernia which occasionally clogs up. No recent palpitations. No dizziness. He reports urinating well since admission. Physical Exam Physical Exam: The patient is alert and oriented. Mood and affect appeared normal. He answered all questions appropriately. HEENT: Pupils are equal and reactive to light and accommodation. Extraocular movements are intact. The sclerae are anicteric. Neuro: Cranial nerves intact Neck: Patient's neck is large. He has palpable carotid pulses bilaterally without bruits on auscultation. There is no evidence of jugular venous distention. The thyroid is not enlarged. Lungs: Clear to auscultation bilaterally. He has good air movement without use of accessory muscles. No rales wheezes or rhonchi. Cardiac: Heart demonstrates a regular rate and rhythm. Normal S1 and S2. No murmurs on examination. Pulses: The patient has palpable radial pulses bilaterally that are equal in intensity. Dialysis access in the upper right arm Abdomen: Umbilical hernia noted. soft. Extremities: There was no evidence of hypoperfusion. There is no cyanosis or clubbing. There is no edema. Skin: I did not appreciate any rashes on examination today. Results & Data ([facility]) Vital Signs (Past 12 Hours) Vital Signs Temp Pulse Pulse Resp BP Pulse Ox 02/01/20 08:36 53 L 02/01/20 07:41 36.7 C 54 L 18 139/75 95 02/01/20 03:49 36.3 C L 48 L 18 157/70 H 95 01/31/20 23:31 36.6 C 54 L 16 146/63 H 95 01/31/20 23:00 56 L Laboratory Results Abnormal Lab Results 01/31/20 01/31/20 01/31/20 18:32 18:32 18:32 WBC 8.42 RBC 3.65 L Hgb 11.3 L Hct 35.8 L MCV 98.1 MCH 31.0 MCHC 31.6 L RDW Std Deviation 54.2 H RDW Coeff of Atif 15.2 H Plt Count 232 MPV 10.4 Immature Gran % (Auto) 0.2 Neut % (Auto) 70.9 Lymph % (Auto) 13.8 [place] % (Auto) 8.6 Eos % (Auto) 6.3 Baso % (Auto) 0.2 Neut # (Auto) 5.97 Lymph # (Auto) 1.16 L [place] # (Auto) 0.72 H Eos # (Auto) 0.53 H Baso # (Auto) 0.02 Immature Gran # (Auto) 0.02 PT 10.9 INR 1.0 APTT 31.3 H PTT Ratio 1.1 Sodium 140 Potassium 4.4 Chloride 106 Carbon Dioxide 28 Anion Gap 6.0 BUN 39 H Creatinine 4.59 H* Est Cr Clr Drug Dosing 21.3 Est GFR ( Amer) 14.2 Est GFR (Non-Af Amer) 12.3 BUN/Creatinine Ratio 8.6 L Glucose 282 H POC Glucose Calcium 8.4 L Total Bilirubin 0.3 AST 14 L ALT 15 Alkaline Phosphatase 54 Total Creatine Kinase 71 CK-MB (CK-2) 1.2 CK/CKMB % Calc 1.7 Troponin I < 0.015 Total Protein 7.1 Albumin 3.1 L Globulin 4.0 Albumin/Globulin Ratio 0.8 L Lipase 230 Nasal Screen MRSA (PCR) 01/31/20 02/01/20 02/01/20 23:03 05:19 07:27 WBC RBC Hgb Hct MCV MCH MCHC RDW Std Deviation RDW Coeff of Atif Plt Count MPV Immature Gran % (Auto) Neut % (Auto) Lymph % (Auto) [place] % (Auto) Eos % (Auto) Baso % (Auto) Neut # (Auto) Lymph # (Auto) [place] # (Auto) Eos # (Auto) Baso # (Auto) Immature Gran # (Auto) PT INR APTT PTT Ratio Sodium Potassium Chloride Carbon Dioxide Anion Gap BUN Creatinine Est Cr Clr Drug Dosing Est GFR ( Amer) Est GFR (Non-Af Amer) BUN/Creatinine Ratio Glucose POC Glucose 106 H Calcium Total Bilirubin AST ALT Alkaline Phosphatase Total Creatine Kinase CK-MB (CK-2) CK/CKMB % Calc Troponin I 0.811 H* 1.340 H* Total Protein Albumin Globulin Albumin/Globulin Ratio Lipase Nasal Screen MRSA (PCR) 02/01/20 08:40 WBC RBC Hgb Hct MCV MCH MCHC RDW Std Deviation RDW Coeff of Atif Plt Count MPV Immature Gran % (Auto) Neut % (Auto) Lymph % (Auto) [place] % (Auto) Eos % (Auto) Baso % (Auto) Neut # (Auto) Lymph # (Auto) [place] # (Auto) Eos # (Auto) Baso # (Auto) Immature Gran # (Auto) PT INR APTT PTT Ratio Sodium Potassium Chloride Carbon Dioxide Anion Gap BUN Creatinine Est Cr Clr Drug Dosing Est GFR ( Amer) Est GFR (Non-Af Amer) BUN/Creatinine Ratio Glucose POC Glucose Calcium Total Bilirubin AST ALT Alkaline Phosphatase Total Creatine Kinase CK-MB (CK-2) CK/CKMB % Calc Troponin I Total Protein Albumin Globulin Albumin/Globulin Ratio Lipase Nasal Screen MRSA (PCR) Negative Diagnostic Findings Cardiac catheterization performed 12/26/2019: Mild distal left main disease. 90% proximal LAD disease. 70% D2 stenosis. Right dominant system without additional obstructive coronary disease. Echocardiogram performed 12/24/2019: Normal LV systolic function with ejection fraction 55-60%. Aortic valve sclerosis. Mild mitral regurgitation. Admission did not reveal any acute cardiopulmonary process. ECG Additional Comments: EKG obtained at the time admission revealed normal sinus rhythm. No significant ST or T-wave changes. Essentially normal EKG PG Care Time/CCT Total # of Minutes Spent Total Time Spent with Patient: Total time spent is greater than 50% in coordination of care (as documented) at patient's floor/unit and/or counseling patient: Coding Level of Care Code 97775 Initial Inpt Care Lvl 3 Diagnoses NSTEMI (non-ST elevated myocardial infarction) I21.4 CAD (coronary artery disease) I25.10 Coronary Disease-Associated Artery/Lesion type: [place] artery [place] vs. transplanted heart: [place] heart Associated angina: without angina Paroxysmal atrial flutter I48.92 Sinus node dysfunction I49.5 (1) CAD (coronary artery disease) Coronary Disease-Associated Artery/Lesion type: [place] artery [place] vs. transplanted heart: [place] heart Associated angina: without angina Qualified Code(s): I25.10 - Atherosclerotic heart disease of [place] coronary artery without angina pectoris
--- NOTE | 2020-02-01 11:12 | Pharmacy Report ---
Pharmacy Glycemic Short Note 2 - Date of Service February 01, 2020 - Glycemic Short BSG Results (Last 24 hours): 01/31/20 02/01/20 18:32 07:27 Glucose 282 H POC Glucose 106 H OUTPATIENT ANTIDIABETIC REGIMEN: * Lantus 50 units SQ BID * NovoLog 10 units SQ AC * HbA1c = unknown; will not order A1c as this result is likely somewhat unreliable in ESRD patients d/t interactions between the A1c analyzing technique and high levels of urea in ESRD, reduced RBC life span, iron deficiency anemia, and EPO administration. HbA1c > 7.5% in ESRD patient may overestimate the extent of hyperglycemia in ESRD patients. ASSESSMENT: * 69 yo T2DM male with unknown degree of outpatient control. * Pt is maintained on SQ basal bolus insulin regimen as an outpatient - total daily dose is 130 units/day * Pt was received admitted last month for ~ 24hrs and did not require any basal insulin. Typically, patient require significantly less insulin while admitted as compared to their outpatient dosing due to changes/decreases in PO intake. * Will empirically start with 50% of outpatient dosing and titrate based on BSG trends. PLAN FOR INPATIENT GLYCEMIC CONTROL: * Basal insulin * Lantus 25 units SQ BID when BSG is in goal range. * Will give 20 units if BGS is < 140 mg/dl and 30 units if BSG >180 mg/dl * Bolus insulin * NovoLog per scale ACHS or Q6hrs while NPO * Goal Range: Low 110 mg/dL - High 140 mg/dL * Correction Factor: 20 mg/dL/unit * Nutritional / Prandial insulin per carb ratio of 1 unit per 7 grams CHO consumed
[2020-02-01] MEDS ORDERED: HEPARIN IV BOLUS 8,000 UNITS in SYRINGE 0 ML IV ONE (12:15)
--- NOTE | 2020-02-01 12:56 | Nephrology Consultation ---
Date of Consultation February 01, 2020 Assessment & Plan (1) End-stage renal disease on hemodialysis: HD TTS. Dialyzes via a right brachiocephalic AV fistula. Blood flows have been appropriate, typically 450. 180 Optiflux dialyzer. 3K bath. Electrolytes are well controlled. Orders for HD were entered into the EMR today and reviewed with the HD nurse. Angel was seen and evaluated prior to and during hemodialysis. I personally reviewed his chest x-ray. He does not have significant interstitial edema on this study. Pulmonary vascular congestion can be appreciated. UF goal get for 3.5 L. EDW has been 122 kg. CKD (chronic kidney disease), stage V: Attributed to diabetes and hypertension. Dialysis dependent. Unfortunately does not make a significant amount of urine. Inter dialytic weight gains have been excessive. The importance of of a renal diet and daily fluid restriction was again stressed in detail today. Remains on Renvela as a phosphate binder. She be on a low phosphorus diet. (2) Anemia: Chronic, stable. No need for additional MAYLIN therapy at this time. (3) HTN (hypertension): BP controlled. Tolerating currently therapy well. Chronic bradycardia and PAF noted. (4) CAD (coronary artery disease): Cardiology consultation reviewed. (5) NSTEMI (non-ST elevated myocardial infarction): Possible angiography Monday. (6) Paroxysmal atrial flutter: (7) Sinus node dysfunction: History of Present Illness Reason for Consultation: ESRD on HD Requesting Physician: Alli Manzo DO Attending Physician: Alli Manzo DO History of Present Illness Mr. Angel Solorio is a 69-year-old male with end-stage renal disease on maintenance hemodialysis in-center at [facility]. Kidney disease has been attributed to diabetes mellitus and hypertension. He has been on hemodialysis for approximately 2 years. Angel dialyzes on a TTS schedule. He dialyzes for 4 hours with a 180 Optiflux. Estimated dry weight has been 122 kg. His last hemodialysis treatment was on January 29. Angel left the treatment at 122.1 kg. Ultrafiltration is often limited by significant cramping during treatment. IDGW have been consistently high though recently improved. Patient is listed for transplant through the [facility]. His medical history is notable for coronary artery disease with prior PCI, heart failure with preserved ejection fraction, intermittent atrial fibrillation / atrial flutter with AV node dysfunction, as well obstructive sleep apnea. He has undergone recent evaluation the cardiology clinic for his atrial arrhythmia. A SiteJabbertronic cardiac monitoring device was inserted. Interrogation of the device revealed bradycardia to the 40s as well as episodes of pauses lasting approximately 7 seconds. Patient had multiple episodes of atrial fibrillation longest lasting approximately 6 hours. Denies any symptoms associated with this. He was prescribed low dose of amiodarone to take on a daily basis. Laboratory studies have been notable for uncontrolled hyperphosphatemia. Otherwise electrolytes have been appropriate. Angel was recently admitted to [facility] last month with volume overload. Yesterday, he developed acute onset chest discomfort and dyspnea following a meal. He also had some discomfort in the jaw. Symptoms did not resolved within 3 minutes and so he came to the ER for evaluation. He was given sublingual nitroglycerin and Maalox with some relief. One month ago the patient underwent stress testing which involved exercise. He had significant EKG changes and was markedly dyspneic with exercise. However, he did not have similar symptoms or any symptoms of chest discomfort at that time. Allergies Allergy/AdvReac Type Severity Reaction Status Date / Time ragweed pollen Allergy Mild [place] Verified 01/31/20 19:39 Home Medications Home Medications Medication Instructions Recorded Confirmed Type albuterol sulfate 2 puff INHALATION Q6H PRN 01/06/19 01/31/20 History furosemide [Lasix] 80 mg PO BID 01/06/19 01/31/20 History insulin aspart U-100 [Novolog 10 unit SUBCUT AC 01/06/19 01/31/20 History PenFill U-100 Insulin] loratadine 10 mg PO DAILY PRN 01/06/19 01/31/20 History sertraline 25 mg PO QAM 01/06/19 01/31/20 History tamsulosin 0.4 mg PO QAM 01/06/19 01/31/20 History Lantus Solostar U-100 Insulin 50 unit SUBCUT BID 03/06/19 01/31/20 History aspirin [Aspir-81] 81 mg PO DAILY 03/06/19 01/31/20 History carvedilol [Coreg] 6.25 mg PO BID 03/06/19 01/31/20 History clopidogrel [Plavix] 75 mg PO DAILY 03/06/19 01/31/20 History ProRenal 1 tab PO QPM 09/26/19 01/31/20 History sevelamer carbonate [Renvela] 800 mg PO TIDM 09/26/19 01/31/20 History amiodarone 200 mg tablet See Rx Instructions .ROUTE 12/18/19 01/31/20 Rx .COMPLEX #45 tab amlodipine 10 mg tablet 5 mg PO QAM tab 12/18/19 01/31/20 History clonidine HCl 0.1 mg tablet 0.1 mg PO DIRECTED 12/18/19 01/31/20 History atorvastatin 40 mg PO PM #30 tab 12/27/19 01/31/20 Rx nitroglycerin [Nitrostat] 0.4 mg SUBLINGUAL UD PRN #20 tab 12/27/19 01/31/20 Rx Unknown Med @ Dialysis 1 tab PO 3XWK 01/31/20 01/31/20 History Patient History Medical History Anemia CAD (coronary artery disease) s/p stent 2018 CHF exacerbation Chronic kidney disease, stage 4 (severe) CKD (chronic kidney disease) Stage 4 Diabetes Dyslipidemia Elevated troponin Elevated troponin HTN (hypertension) Orthostatic dizziness Paroxysmal atrial fibrillation Sinus node dysfunction Sleep apnea does not use CPAP Surgical History AV fistula History of loop recorder Implanted 05/01/2019 S/P coronary artery stent placement Family History Other Hypertension Social History Smoking Status: Former smoker Tobacco Type: Cigarettes Cigarettes Per Day: 10; Second Hand Exposure: No; Do You Dip or Chew Tobacco: No; Tobacco Cessation Education Requested by Patient: No Hx Alcohol Use: No Hx Substance Use: No Preferred Language: Dominican Communication Ability: Effective Yard Laborer Required: No Beliefs That Will Affect Care: None marital status: Current Living Situation: Alone How many Children do You have: 0 Feels Safe at Home: Yes Safety Concerns: Feels Safe At This Time Review of Systems Review of Systems: All systems reviewed & are unremarkable except as noted in HPI & below Physical Exam Constitutional: well developed and + obese; no acute distress Eyes: + anicteric sclerae; no corneal abnormality ENMT: Mouth: no oral mucosal abnormality and oral mucous membranes not dry Neck: normal visual inspection and trachea midline Respiratory: normal respiratory effort Auscultation: lungs clear to auscultation bilaterally Cardiovascular: Rate/Rhythm: + bradycardic Heart Sounds: normal S1, normal S2 and + murmur Extremities: + AV fistula; no edema Gastrointestinal (Abdomen): Inspection/Auscultation: + abdomen distended Percussion/Palpation: abdomen soft; abdomen nontender large umbilical hernia Musculoskeletal: Extremities: no cyanosis and no clubbing Skin: normal turgor; no lesions Neurologic: Motor/Sensory: no tremor and no asterixis Psychiatric: Orientation: alert and oriented x 3 Results & Data ([facility]) Vital Signs (Past 12 Hours) Vital Signs Temp Pulse Pulse Pulse Resp BP BP 02/01/20 12:40 50 L 120/67 02/01/20 12:20 51 L 126/70 02/01/20 12:00 47 L 124/63 02/01/20 11:40 45 L 115/57 L 02/01/20 11:20 47 L 137/67 02/01/20 11:00 44 L 120/63 02/01/20 10:45 41 L 116/64 02/01/20 10:40 39 L 137/59 L 02/01/20 10:27 36.4 C L 49 L 02/01/20 08:36 53 L 02/01/20 07:41 36.7 C 54 L 18 139/75 02/01/20 03:49 36.3 C L 48 L 18 157/70 H Pulse Ox 02/01/20 12:40 02/01/20 12:20 02/01/20 12:00 02/01/20 11:40 02/01/20 11:20 02/01/20 11:00 02/01/20 10:45 02/01/20 10:40 02/01/20 10:27 02/01/20 08:36 02/01/20 07:41 95 02/01/20 03:49 95 Laboratory Results Laboratory Results - last 24 hr 01/31/20 01/31/20 01/31/20 18:32 18:32 18:32 WBC 8.42 RBC 3.65 L Hgb 11.3 L Hct 35.8 L MCV 98.1 MCH 31.0 MCHC 31.6 L RDW Std Deviation 54.2 H RDW Coeff of Atif 15.2 H Plt Count 232 MPV 10.4 Immature Gran % (Auto) 0.2 Neut % (Auto) 70.9 Lymph % (Auto) 13.8 [place] % (Auto) 8.6 Eos % (Auto) 6.3 Baso % (Auto) 0.2 Neut # (Auto) 5.97 Lymph # (Auto) 1.16 L [place] # (Auto) 0.72 H Eos # (Auto) 0.53 H Baso # (Auto) 0.02 Immature Gran # (Auto) 0.02 PT 10.9 INR 1.0 APTT 31.3 H PTT Ratio 1.1 Sodium 140 Potassium 4.4 Chloride 106 Carbon Dioxide 28 Anion Gap 6.0 BUN 39 H Creatinine 4.59 H* Est Cr Clr Drug Dosing 21.3 Est GFR ( Amer) 14.2 Est GFR (Non-Af Amer) 12.3 BUN/Creatinine Ratio 8.6 L Glucose 282 H POC Glucose Calcium 8.4 L Total Bilirubin 0.3 AST 14 L ALT 15 Alkaline Phosphatase 54 Total Creatine Kinase 71 CK-MB (CK-2) 1.2 CK/CKMB % Calc 1.7 Troponin I < 0.015 Total Protein 7.1 Albumin 3.1 L Globulin 4.0 Albumin/Globulin Ratio 0.8 L Lipase 230 Nasal Screen MRSA (PCR) 01/31/20 01/31/20 02/01/20 22:49 23:03 05:19 WBC RBC Hgb Hct MCV MCH MCHC RDW Std Deviation RDW Coeff of Atif Plt Count MPV Immature Gran % (Auto) Neut % (Auto) Lymph % (Auto) [place] % (Auto) Eos % (Auto) Baso % (Auto) Neut # (Auto) Lymph # (Auto) [place] # (Auto) Eos # (Auto) Baso # (Auto) Immature Gran # (Auto) PT INR APTT PTT Ratio Sodium Potassium Chloride Carbon Dioxide Anion Gap BUN Creatinine Est Cr Clr Drug Dosing Est GFR ( Amer) Est GFR (Non-Af Amer) BUN/Creatinine Ratio Glucose POC Glucose 146 H Calcium Total Bilirubin AST ALT Alkaline Phosphatase Total Creatine Kinase CK-MB (CK-2) CK/CKMB % Calc Troponin I 0.811 H* 1.340 H* Total Protein Albumin Globulin Albumin/Globulin Ratio Lipase Nasal Screen MRSA (PCR) 02/01/20 02/01/20 07:27 08:40 WBC RBC Hgb Hct MCV MCH MCHC RDW Std Deviation RDW Coeff of Atif Plt Count MPV Immature Gran % (Auto) Neut % (Auto) Lymph % (Auto) [place] % (Auto) Eos % (Auto) Baso % (Auto) Neut # (Auto) Lymph # (Auto) [place] # (Auto) Eos # (Auto) Baso # (Auto) Immature Gran # (Auto) PT INR APTT PTT Ratio Sodium Potassium Chloride Carbon Dioxide Anion Gap BUN Creatinine Est Cr Clr Drug Dosing Est GFR ( Amer) Est GFR (Non-Af Amer) BUN/Creatinine Ratio Glucose POC Glucose 106 H Calcium Total Bilirubin AST ALT Alkaline Phosphatase Total Creatine Kinase CK-MB (CK-2) CK/CKMB % Calc Troponin I Total Protein Albumin Globulin Albumin/Globulin Ratio Lipase Nasal Screen MRSA (PCR) Negative PG Care Time/CCT Total # of Minutes Spent Total Time Spent with Patient: Total time spent is greater than 50% in coordination of care (as documented) at patient's floor/unit and/or counseling patient: Coding Level of Care Code 43445 Inpt Consult Level 5 Diagnoses End-stage renal disease on hemodialysis N18.6; Z99.2 Anemia D64.9 Anemia type: unspecified type HTN (hypertension) I10 Hypertension type: essential hypertension CAD (coronary artery disease) I25.10 Coronary Disease-Associated Artery/Lesion type: [place] artery [place] vs. transplanted heart: [place] heart Associated angina: without angina NSTEMI (non-ST elevated myocardial infarction) I21.4 Paroxysmal atrial flutter I48.92 Sinus node dysfunction I49.5 (1) CAD (coronary artery disease) Coronary Disease-Associated Artery/Lesion type: [place] artery [place] vs. transplanted heart: [place] heart Associated angina: without angina Qualified Code(s): I25.10 - Atherosclerotic heart disease of [place] coronary artery without angina pectoris (2) Anemia Anemia type: unspecified type Qualified Code(s): D64.9 - Anemia, unspecified (3) HTN (hypertension) Hypertension type: essential hypertension Qualified Code(s): I10 - Essential (primary) hypertension
[2020-02-01] MEDS: HEPARIN SODIUM/DEXTROSE 25,000 UNITS/500 ML BAG IV SCH (15:44)
--- NOTE | 2020-02-01 16:47 | Electrocardiogram Report ---
Test Reason : Blood Pressure : / mmHG Vent. Rate : 078 BPM Atrial Rate : 078 BPM P-R Int : 208 ms QRS Dur : 114 ms QT Int : 408 ms P-R-T Axes : 028 052 051 degrees QTc Int : 465 ms sinus rhythm Normal ECG When compared with ECG of 04-JAN-2020 11:20, T wave amplitude has decreased in Inferior leads Confirmed by Luiz Washington ([id number]) on 02/01/2020 4:46:56 PM Referred By: REFERRED SELF Confirmed By:Chau Washington
--- NOTE | 2020-02-01 16:54 | Electrocardiogram Report ---
Test Reason : Blood Pressure : / mmHG Vent. Rate : 049 BPM Atrial Rate : 049 BPM P-R Int : 000 ms QRS Dur : 116 ms QT Int : 468 ms P-R-T Axes : 000 053 051 degrees QTc Int : 422 ms Poor data quality, interpretation may be adversely affected sinus bradycardia with 1st degree AV block Abnormal ECG Confirmed by Luiz Washington ([id number]) on 02/01/2020 4:54:35 PM Referred By: REFERRED SELF Confirmed By:Chau Washington
--- NOTE | 2020-02-01 17:46 | Billing Data ---
Date of Service February 01, 2020 Coding Level of Care Code 20924 Initial Inpt Care Lvl 3
--- NOTE | 2020-02-01 19:58 | Billing Data ---
Date of Service February 01, 2020 Coding Level of Care Code 01682 Subseq Hosp Care Lvl 3
[2020-02-01] MEDS: ATORVASTATIN 40 MG TAB PO SCH (20:29)
[2020-02-01] MEDS: NEPHROCAPS PO SCH (20:29)
[2020-02-01] MEDS ORDERED: MELATONIN 3 MG TAB PO PRN (22:21)
[2020-02-01 22:28] LABS: Partial Thromboplastin Time 112.2 Seconds (21.0-31.0)
[2020-02-02 05:20] LABS: Basophils # (auto) 0.03 K/uL (0-0.2); Basophils % (auto) 0.3 %; Eosinophils # (auto) 0.63 K/uL (0-0.5); Eosinophils % (auto) 6.9 %; Hematocrit (blood only) 36.4 % (42-52); Hemoglobin 11.7 g/dL (14.0-18.0); Immature Granulocytes # (auto) 0.02 K/uL (0.00-0.02); Immature Granulocytes % (auto) 0.2 %; Lymphocytes # (auto) 1.84 K/uL (1.2-3.4); Lymphocytes % (auto) 20.1 %; Mean Corpuscular Hemoglobin 31.1 pg (25-34); Mean Corpuscular Hgb Conc 32.1 g/dL (32-36); Mean Corpuscular Volume 96.8 fL (80-100); Mean Platelet Volume 10.8 fL (7.4-10.4); Monocytes # (auto) 0.45 K/uL (0.11-0.59); Monocytes % (auto) 4.9 %; Neutrophils # (auto) 6.17 K/uL (1.4-6.5); Neutrophils % (auto) 67.6 %; Platelet Count 214 K/uL (130-400); RDW Coefficient of Variation 15.2 % (11.5-14.5); RDW Standard Deviation 53.4 fL (36.4-46.3); Red Blood Count 3.76 M/uL (4.7-6.1); White Blood Count 9.14 K/uL (4.8-10.8)
[2020-02-02 05:40] LABS: Partial Thromboplastin Ratio 2.5
[2020-02-02 05:48] LABS: Partial Thromboplastin Time 69.9 Seconds (21.0-31.0)
[2020-02-02 05:51] LABS: Calcium 8.8 mg/dl (8.5-10.1); Creatinine Clr Calc Pharmacy 24.4 ml/min; Est GFR (African American) 17.2; Est GFR (Non-African American) 14.9; Potassium 4.4 mmol/L (3.5-5.1)
[2020-02-02] MEDS: HEPARIN SODIUM/DEXTROSE 25,000 UNITS/500 ML BAG IV SCH ×2 (07:31→09:07)
[2020-02-02] MEDS: cloNIDine HCL 0.1 MG TAB PO SCH ×2 (08:05→20:24)
[2020-02-02] MEDS: AMLODIPINE BESYLATE 5 MG TAB PO SCH (08:06)
[2020-02-02] MEDS: carvediloL 6.25 MG TAB PO SCH ×2 (08:06→22:30)
[2020-02-02] MEDS: FUROSEMIDE 80 MG TAB PO SCH ×2 (08:06→17:25)
[2020-02-02] MEDS: TAMSULOSIN HCL 0.4 MG CAP PO SCH (08:06)
[2020-02-02] MEDS: PANTOprazole 40 MG TAB PO SCH (08:06)
[2020-02-02] MEDS: CLOPIDOGREL BISULFATE 75 MG TAB PO SCH (08:06)
[2020-02-02] MEDS: SEVELAMER HCL 800 MG TABLET PO SCH ×3 (08:06→17:25)
[2020-02-02] MEDS: SERTRALINE HCL 50 MG TABLET PO SCH (08:06)
[2020-02-02] MEDS: ASPIRIN 81 MG ECTAB PO SCH (08:06)
[2020-02-02] MEDS: INSULIN GLARGINE SOLOSTAR 100 UNITS/ML 3 ML PEN SC SCH ×2 (08:09→20:17)
[2020-02-02] MEDS: INSULIN ASPART 100 UNITS/ML 3 ML PEN SC SCH ×4 (08:10→20:24)
--- NOTE | 2020-02-02 08:25 | Hospitalist Progress Note ---
Date of Service February 02, 2020 Assessment & Plan (1) Chest pain: Angel Solorio is a 69-year-old male with a notable past medical history of GERD, CAD s/p 2x mid-LAD stents in 2019 and at prox-LAD in 12/2019, HFpEF with last EF at 55-60% in 12/2019, atrial flutter, insulin-dependent type 2 diabetes, ESRD on hemodialysis, HLD, HTN, RADHA without CPAP, and sinus node dysfunction status post pacemaker placement in 2018 who presented to the emergency department for acute evaluation of chest pain starting today which resolved s/p ASA and nitro x 1 and Maalox in the ED. 1. Chest Pain in Setting of Recent LAD Stenting (12/2019) -- r/o cardiac origin vs. GI etiology -Patient initially reporting burning chest pain secondary to a large meal which was associated with SOB -Notes symptoms resolved entirely in ED s/p ASA, Nitro, and Maalox -Of note patient had not had ASA x2 days prior to admission due to "running out." -Recent stenting 2x mid LAD 2018 and 1x prox LAD 12/2019 -EKG with NSR without ST-T wave abnormalities -Initial troponin negative, trend q6h 0.811 -> 1.340 -> 0.725 -CXR unremarkable for acute process -Continue Pantoprazole -Cardiology Consulted -Due to patients complex history and stents while consistent with "indigestion" will treat as NSTEMI -Continue dual anti-platelet therapy ASA and Clopidogrel, beta ginger, atorvastatin -Hep gtt -Plan for coronary angiography Monday -plan for interrogation of patients loop recorder -NPO at midnight 2. CAD s/p catheterization and stenting 2x at mid-LAD in 2018 and at prox-LAD in 12/2019 -See chest pain above -Continue home plavix and ASA -Continue home atorvastatin 3. CKD Stage V / ESRD -ED labs demonstrated BUN 39, creatinine 4.59 -Patient is typically scheduled to have dialysis on Monday, , and Monday -Nephrology consult placed for dialysis initiation -Dialysis completed today -Continue ProRenal qPM -Continue Renvela 4. Atrial flutter, previously with RVR during admission 12/2019 -- not currently present on ECG -EKG obtained in the emergency room demonstrated normal sinus rhythm --atrial flutter not present -Telemetry as above/continue monitoring -Prior to his last discharge in , patient was supposed to begin amiodarone to aid with rate control; as he has not initiated this since his last hospitalization, will hold off on initiating at this time given his good rates and normal EKG. -Cardiology will check loop recorder Chronic Medical Problems -HFpEF (EF 55-60% 12/2019): No signs of volume overload at this time -- Continue home lasix 80mg PO b.i.d., coreg 6.25mg PO b.i.d. -ID-DM2: Placed on insulin SQ protocol -- home lantus is 50U sq b.i.d.; takes novolog with meals -HTN: Continue home medications -- amlodipine, clonidine as directed -BPH: Continue tamsulosin Dispo: PCU w/ Telemetry F/E/N: Cardiac diet PPX: Heparin gtt, SCDs Code: Full code (2) Paroxysmal atrial flutter: (3) End-stage renal disease on hemodialysis: (4) S/P coronary artery stent placement: (5) Sinus node dysfunction: (6) (HFpEF) heart failure with preserved ejection fraction: (7) CAD (coronary artery disease): (8) Sleep apnea: (9) HTN (hypertension): (10) Depression: Admission and Anticipated Discharge Date Admission Date: January 31, 2020 Supervising Physician Co-Signing Physician Notes I personally examined the patient and verified all roman points of history and exam, discussed case, and agree with decision making with Dr Murphy feels good no CP waiting on cath vitals noted nad heent nc at mmm breathing unlabored no accessory muscles good effort skin no rashes no pallor or icterus neuro no focal deficits NSTEMI - cath tomorrow. med management for now. asymptomatic otherwise as above Subjective Patient evaluated at the bedside. No complaints this AM, noted he had not had anymore discomfort after having a bowel movement. Has not had any chest pain or chest pressure. Review of Systems 2 Constitutional: no fever, no chills, no fatigue and no weakness Eyes: no worsening vision Respiratory: no cough and no dyspnea Cardiovascular: no chest pain, no radiating jaw, neck or arm pain and no palpitations Gastrointestinal: no abdominal pain, no nausea and no vomiting Physical Exam Constitutional: well developed and well nourished; no acute distress Eyes: PERRL, conjunctivae normal, anicteric sclerae Respiratory: normal respiratory effort, lungs clear to auscultation Cardiovascular: RRR, no murmur, no edema Gastrointestinal (Abdomen): normal bowel sounds, soft, nontender, no hepatosplenomegaly Results & Data Results & Data ([facility]) Vital Signs (Past 12 Hours) Vital Signs Temp Pulse Pulse Resp BP Pulse Ox 02/02/20 07:08 36.5 C 50 L 20 127/63 99 02/02/20 03:53 36.5 C 45 L 18 127/68 92 02/01/20 23:47 36.9 C 53 L 18 104/66 92 02/01/20 23:46 59 L Resident Activity Tracking Resident Involvement: Resident Care Provided Care Provided: Adult Hospital Medicine (1) CAD (coronary artery disease) Coronary Disease-Associated Artery/Lesion type: [place] artery [place] vs. transplanted heart: [place] heart Associated angina: without angina Qualified Code(s): I25.10 - Atherosclerotic heart disease of [place] coronary artery without angina pectoris (2) Sleep apnea Sleep apnea type: unspecified type Qualified Code(s): G47.30 - Sleep apnea, unspecified (3) HTN (hypertension) Hypertension type: essential hypertension Qualified Code(s): I10 - Essential (primary) hypertension (4) Depression Depression Type: major depressive disorder Major depression recurrence: recurrent Active/Remission status: remission status unspecified Qualified Code(s): F33.9 - Major depressive disorder, recurrent, unspecified
--- NOTE | 2020-02-02 08:53 | Pharmacy Report ---
Pharmacy Glycemic Short Note 2 - Date of Service February 02, 2020 - Glycemic Short BSG Results (Last 24 hours): 01/31/20 02/01/20 02/01/20 22:49 07:27 20:03 Glucose POC Glucose 146 H 106 H 128 H 02/02/20 02/02/20 04:44 07:41 Glucose 100 H POC Glucose 101 H OUTPATIENT ANTIDIABETIC REGIMEN: * Lantus 50 units SQ BID * NovoLog 10 units SQ AC * HbA1c = unknown; will not order A1c as this result is likely somewhat unreliable in ESRD patients d/t interactions between the A1c analyzing technique and high levels of urea in ESRD, reduced RBC life span, iron deficiency anemia, and EPO administration. HbA1c > 7.5% in ESRD patient may overestimate the extent of hyperglycemia in ESRD patients. ASSESSMENT: 02/01: * Pt has received 49 units of insulin over the past 24hrs * 40 units of basal with Lantus * 9 units of prandial/correctional with NovoLog (low PO intake yesterday-no CHO consumed at breakfast and missed lunch d/t HD) * BSGs 106-128-101 mg/dl * AM fasting BSG in goal range at 101 mg/dl. No changes needed to basal insulin dosing. Current basal insulin dosing is about a 60% reduction from outpatient dosing. Pt will be NPO after midnight for coronary angiography. Typically, we reduce basal insulin dosing by ~20-50% empirically when NPO. However, since pt was essentially NPO yesterday from decreased PO intake, will continue current dosing. OK to give while NPO. May need to decrease further once heparin infusion (mixed in dextrose) is stopped. * Post-prandial BSGs in goal range - but unable to fully assess since PO intake low. Will continue current parameters. 01/31: * 69 yo T2DM male with unknown degree of outpatient control. * Pt is maintained on SQ basal bolus insulin regimen as an outpatient - total daily dose is 130 units/day * Pt was received admitted last month for ~ 24hrs and did not require any basal insulin. Typically, patient require significantly less insulin while admitted as compared to their outpatient dosing due to changes/decreases in PO intake. * Will empirically start with 50% of outpatient dosing and titrate based on BSG trends. PLAN FOR INPATIENT GLYCEMIC CONTROL: * Basal insulin: continue 40 units/day divided as 20 units SQ BID. Stop scale based dosing * Lantus 20 units SQ BID ok to give while NPO * Bolus insulin: no change * NovoLog per scale ACHS or Q6hrs while NPO * Goal Range: Low 110 mg/dL - High 140 mg/dL * Correction Factor: 20 mg/dL/unit * Nutritional / Prandial insulin per carb ratio of 1 unit per 7 grams CHO consumed Discharge Recs: * A1c = 7% on 12/25/19 * However, this result is likely somewhat unreliable in ESRD patients d/t interactions between the A1c analyzing technique and high levels of urea in ESRD, reduced RBC life span, iron deficiency anemia, and EPO administration. HbA1c > 7.5% in ESRD patient may overestimate the extent of hyperglycemia in ESRD patients. * Inpatient needs are significantly less than his home regimen; however, patients typically have significant changes/decreases in PO intake/CHO consumed while admitted as compared to home. * No changes needed to outpatient regimen unless patient is experiencing hypoglycemia.
--- NOTE | 2020-02-02 09:33 | Cardiology Progress Note ---
Date of Service February 02, 2020 Assessment & Plan (1) NSTEMI (non-ST elevated myocardial infarction): Mildly elevated cardiac biomarkers approximately 1 month after recent PCI. No recurrent symptoms. At this point we will continue his heparin infusion until he undergoes angiography tomorrow. Will continue his dual anti-platelet therapy. Continue carvedilol. (2) CAD (coronary artery disease): To interventions to the proximal LAD over the past year. The patient will be continued on dual anti-platelet therapy, beta blockade and high-dose atorvastatin. (3) Paroxysmal atrial flutter: No clinical recurrence. He was prescribed amiodarone to prevent recurrence. However, he has fairly significant bradycardia at baseline. Do not think it is necessary to start this medication. Better option should he have recurrent atrial flutter would be catheter based therapy. (4) Sinus node dysfunction: He seems to have sinus bradycardia at times. No symptoms. Continue carvedilol at the current dose. Admission and Anticipated Discharge Date Admission Date: January 31, 2020 Subjective This morning the patient claims to be feeling well. He tolerated dialysis yesterday without incident. He has not report any recurrence of the symptoms which brought him to the hospital. He states he did have a fleeting sensation in the left upper pectoral area last night which she attributes to musculoskeletal pain. Review of Systems Review of Systems: Per HPI Physical Exam Physical Exam: The patient is alert and oriented. Mood and affect appeared normal. He answered all questions appropriately. HEENT: Pupils are equal and reactive to light and accommodation. Extraocular movements are intact. The sclerae are anicteric. Neuro: Cranial nerves intact Lungs: Clear to auscultation bilaterally. He has good air movement without use of accessory muscles. No rales wheezes or rhonchi. Cardiac: Heart demonstrates a regular rate and rhythm. Normal S1 and S2. No murmurs on examination. Pulses: The patient has palpable radial pulses bilaterally that are equal in intensity. Dialysis access in the upper right arm Extremities: There was no evidence of hypoperfusion. There is no cyanosis or clubbing. There is no edema. Skin: I did not appreciate any rashes on examination today. Results & Data ([facility]) Vital Signs (Past 12 Hours) Vital Signs Temp Pulse Pulse Resp BP Pulse Ox 02/02/20 07:08 36.5 C 50 L 20 127/63 99 02/02/20 03:53 36.5 C 45 L 18 127/68 92 02/01/20 23:47 36.9 C 53 L 18 104/66 92 02/01/20 23:46 59 L Laboratory Results Abnormal Lab Results 01/31/20 02/01/20 02/01/20 22:49 07:27 08:40 WBC RBC Hgb Hct MCV MCH MCHC RDW Std Deviation RDW Coeff of Atif Plt Count MPV Immature Gran % (Auto) Neut % (Auto) Lymph % (Auto) [place] % (Auto) Eos % (Auto) Baso % (Auto) Neut # (Auto) Lymph # (Auto) [place] # (Auto) Eos # (Auto) Baso # (Auto) Immature Gran # (Auto) APTT PTT Ratio Sodium Potassium Chloride Carbon Dioxide Anion Gap BUN Creatinine Est Cr Clr Drug Dosing Est GFR ( Amer) Est GFR (Non-Af Amer) BUN/Creatinine Ratio Glucose POC Glucose 146 H 106 H Calcium Troponin I Nasal Screen MRSA (PCR) Negative 02/01/20 02/01/20 02/01/20 15:35 20:03 21:50 WBC RBC Hgb Hct MCV MCH MCHC RDW Std Deviation RDW Coeff of Atif Plt Count MPV Immature Gran % (Auto) Neut % (Auto) Lymph % (Auto) [place] % (Auto) Eos % (Auto) Baso % (Auto) Neut # (Auto) Lymph # (Auto) [place] # (Auto) Eos # (Auto) Baso # (Auto) Immature Gran # (Auto) APTT 112.2 H* PTT Ratio 4.0 Sodium Potassium Chloride Carbon Dioxide Anion Gap BUN Creatinine Est Cr Clr Drug Dosing Est GFR ( Amer) Est GFR (Non-Af Amer) BUN/Creatinine Ratio Glucose POC Glucose 128 H Calcium Troponin I 0.725 H* Nasal Screen MRSA (PCR) 02/02/20 02/02/20 02/02/20 04:44 04:44 04:44 WBC 9.14 RBC 3.76 L Hgb 11.7 L Hct 36.4 L MCV 96.8 MCH 31.1 MCHC 32.1 RDW Std Deviation 53.4 H RDW Coeff of Atif 15.2 H Plt Count 214 MPV 10.8 H Immature Gran % (Auto) 0.2 Neut % (Auto) 67.6 Lymph % (Auto) 20.1 [place] % (Auto) 4.9 Eos % (Auto) 6.9 Baso % (Auto) 0.3 Neut # (Auto) 6.17 Lymph # (Auto) 1.84 [place] # (Auto) 0.45 Eos # (Auto) 0.63 H Baso # (Auto) 0.03 Immature Gran # (Auto) 0.02 APTT 69.9 H* PTT Ratio 2.5 Sodium 139 Potassium 4.4 Chloride 102 Carbon Dioxide 31 Anion Gap 6.0 BUN 31 H Creatinine 3.92 H D Est Cr Clr Drug Dosing 24.4 Est GFR ( Amer) 17.2 Est GFR (Non-Af Amer) 14.9 BUN/Creatinine Ratio 8.0 L Glucose 100 H POC Glucose Calcium 8.8 Troponin I Nasal Screen MRSA (PCR) 02/02/20 07:41 WBC RBC Hgb Hct MCV MCH MCHC RDW Std Deviation RDW Coeff of Atif Plt Count MPV Immature Gran % (Auto) Neut % (Auto) Lymph % (Auto) [place] % (Auto) Eos % (Auto) Baso % (Auto) Neut # (Auto) Lymph # (Auto) [place] # (Auto) Eos # (Auto) Baso # (Auto) Immature Gran # (Auto) APTT PTT Ratio Sodium Potassium Chloride Carbon Dioxide Anion Gap BUN Creatinine Est Cr Clr Drug Dosing Est GFR ( Amer) Est GFR (Non-Af Amer) BUN/Creatinine Ratio Glucose POC Glucose 101 H Calcium Troponin I Nasal Screen MRSA (PCR) PG Care Time/CCT Total # of Minutes Spent Total Time Spent with Patient: Total time spent is greater than 50% in coordination of care (as documented) at patient's floor/unit and/or counseling patient: Coding Level of Care Code 00791 Subseq Hosp Care Lvl 3 Diagnoses NSTEMI (non-ST elevated myocardial infarction) I21.4 CAD (coronary artery disease) I25.10 Coronary Disease-Associated Artery/Lesion type: [place] artery [place] vs. transplanted heart: [place] heart Associated angina: without angina Paroxysmal atrial flutter I48.92 Sinus node dysfunction I49.5 (1) CAD (coronary artery disease) Coronary Disease-Associated Artery/Lesion type: [place] artery [place] vs. transplanted heart: [place] heart Associated angina: without angina Qualified Code(s): I25.10 - Atherosclerotic heart disease of [place] coronary artery without angina pectoris
--- NOTE | 2020-02-02 10:32 | Nephrology Progress Note ---
Date of Service February 02, 2020 Assessment & Plan (1) End-stage renal disease on hemodialysis: * HD TTS via right brachiocephalic AV fistula. Qb 450; 180 Optiflux. Electrolytes are well controlled. Volume status acceptable. EDW 122 kg. * Remains on Renvela as a phosphate binder. * Renal diet. * Medications are appropriately dosed for kidney function. (2) Anemia: * Chronic, stable. No need for additional MAYLIN therapy at this time. (3) HTN (hypertension): * BP controlled. Tolerating currently therapy well. (4) CAD (coronary artery disease): * Cardiology planning cath for tomorrow. (5) NSTEMI (non-ST elevated myocardial infarction): (6) Paroxysmal atrial flutter: (7) Sinus node dysfunction: Admission and Anticipated Discharge Date Admission Date: January 31, 2020 Subjective No acute events overnight. Angel feels well this morning. Denies any chest pain or palpitations. Tolerated HD well yesterday. Filter clotted at ~3 hours. Restarted without difficulty. Qb appropriate. AVF functioning well. No bleeding issues post treatment. Review of Systems Review of Systems: All systems reviewed & are unremarkable except as noted in HPI & below Physical Exam Constitutional: well developed and + obese; no acute distress Eyes: + anicteric sclerae; no corneal abnormality ENMT: Mouth: no oral mucosal abnormality and oral mucous membranes not dry Neck: normal visual inspection and trachea midline Respiratory: normal respiratory effort Auscultation: lungs clear to auscultation bilaterally Cardiovascular: Rate/Rhythm: + bradycardic Heart Sounds: normal S1, normal S2 and + murmur Extremities: + AV fistula; no edema Gastrointestinal (Abdomen): Inspection/Auscultation: + abdomen distended Percussion/Palpation: abdomen soft; abdomen nontender Musculoskeletal: Extremities: no cyanosis and no clubbing Skin: normal turgor; no lesions Neurologic: Motor/Sensory: no tremor and no asterixis Psychiatric: Orientation: alert and oriented x 3 Results & Data ([facility]) Vital Signs (Past 12 Hours) Vital Signs Temp Pulse Pulse Resp BP Pulse Ox 02/02/20 08:00 48 L 02/02/20 07:08 36.5 C 50 L 20 127/63 99 02/02/20 03:53 36.5 C 45 L 18 127/68 92 02/01/20 23:47 36.9 C 53 L 18 104/66 92 02/01/20 23:46 59 L Laboratory Results Laboratory Results - last 24 hr 01/31/20 02/01/20 02/01/20 22:49 07:27 15:35 WBC RBC Hgb Hct MCV MCH MCHC RDW Std Deviation RDW Coeff of Atif Plt Count MPV Immature Gran % (Auto) Neut % (Auto) Lymph % (Auto) [place] % (Auto) Eos % (Auto) Baso % (Auto) Neut # (Auto) Lymph # (Auto) [place] # (Auto) Eos # (Auto) Baso # (Auto) Immature Gran # (Auto) APTT PTT Ratio Sodium Potassium Chloride Carbon Dioxide Anion Gap BUN Creatinine Est Cr Clr Drug Dosing Est GFR ( Amer) Est GFR (Non-Af Amer) BUN/Creatinine Ratio Glucose POC Glucose 146 H 106 H Calcium Troponin I 0.725 H* 02/01/20 02/01/20 02/02/20 20:03 21:50 04:44 WBC 9.14 RBC 3.76 L Hgb 11.7 L Hct 36.4 L MCV 96.8 MCH 31.1 MCHC 32.1 RDW Std Deviation 53.4 H RDW Coeff of Atif 15.2 H Plt Count 214 MPV 10.8 H Immature Gran % (Auto) 0.2 Neut % (Auto) 67.6 Lymph % (Auto) 20.1 [place] % (Auto) 4.9 Eos % (Auto) 6.9 Baso % (Auto) 0.3 Neut # (Auto) 6.17 Lymph # (Auto) 1.84 [place] # (Auto) 0.45 Eos # (Auto) 0.63 H Baso # (Auto) 0.03 Immature Gran # (Auto) 0.02 APTT 112.2 H* PTT Ratio 4.0 Sodium Potassium Chloride Carbon Dioxide Anion Gap BUN Creatinine Est Cr Clr Drug Dosing Est GFR ( Amer) Est GFR (Non-Af Amer) BUN/Creatinine Ratio Glucose POC Glucose 128 H Calcium Troponin I 02/02/20 02/02/20 02/02/20 04:44 04:44 07:41 WBC RBC Hgb Hct MCV MCH MCHC RDW Std Deviation RDW Coeff of Atif Plt Count MPV Immature Gran % (Auto) Neut % (Auto) Lymph % (Auto) [place] % (Auto) Eos % (Auto) Baso % (Auto) Neut # (Auto) Lymph # (Auto) [place] # (Auto) Eos # (Auto) Baso # (Auto) Immature Gran # (Auto) APTT 69.9 H* PTT Ratio 2.5 Sodium 139 Potassium 4.4 Chloride 102 Carbon Dioxide 31 Anion Gap 6.0 BUN 31 H Creatinine 3.92 H D Est Cr Clr Drug Dosing 24.4 Est GFR ( Amer) 17.2 Est GFR (Non-Af Amer) 14.9 BUN/Creatinine Ratio 8.0 L Glucose 100 H POC Glucose 101 H Calcium 8.8 Troponin I PG Care Time/CCT Total # of Minutes Spent Total Time Spent with Patient: Total time spent is greater than 50% in coordination of care (as documented) at patient's floor/unit and/or counseling patient: Coding Level of Care Code 81517 Subseq Hosp Care Lvl 3 Diagnoses End-stage renal disease on hemodialysis N18.6; Z99.2 Anemia D64.9 Anemia type: unspecified type HTN (hypertension) I10 Hypertension type: essential hypertension CAD (coronary artery disease) I25.10 Coronary Disease-Associated Artery/Lesion type: [place] artery [place] vs. transplanted heart: [place] heart Associated angina: without angina NSTEMI (non-ST elevated myocardial infarction) I21.4 Paroxysmal atrial flutter I48.92 Sinus node dysfunction I49.5 (1) Anemia Anemia type: unspecified type Qualified Code(s): D64.9 - Anemia, unspecified (2) HTN (hypertension) Hypertension type: essential hypertension Qualified Code(s): I10 - Essential (primary) hypertension (3) CAD (coronary artery disease) Coronary Disease-Associated Artery/Lesion type: [place] artery [place] vs. transplanted heart: [place] heart Associated angina: without angina Qualified Code(s): I25.10 - Atherosclerotic heart disease of [place] coronary artery without angina pectoris
[2020-02-02 12:32] LABS: Partial Thromboplastin Time 54.8 Seconds (21.0-31.0)
--- NOTE | 2020-02-02 17:42 | Billing Data ---
Date of Service February 02, 2020 Coding Level of Care Code 76338 Subseq Hosp Care Lvl 2
[2020-02-02] MEDS: ATORVASTATIN 40 MG TAB PO SCH (20:14)
[2020-02-02] MEDS: NEPHROCAPS PO SCH (20:14)
[2020-02-03] MEDS: HEPARIN SODIUM/DEXTROSE 25,000 UNITS/500 ML BAG IV SCH (03:47)
[2020-02-03 05:27] LABS: Basophils # (auto) 0.03 K/uL (0-0.2); Basophils % (auto) 0.3 %; Eosinophils # (auto) 0.52 K/uL (0-0.5); Eosinophils % (auto) 5.8 %; Hematocrit (blood only) 36.6 % (42-52); Hemoglobin 11.9 g/dL (14.0-18.0); Immature Granulocytes # (auto) 0.02 K/uL (0.00-0.02); Immature Granulocytes % (auto) 0.2 %; Lymphocytes % (auto) 16.9 %; Mean Corpuscular Hemoglobin 31.3 pg (25-34); Mean Corpuscular Hgb Conc 32.5 g/dL (32-36); Mean Corpuscular Volume 96.3 fL (80-100); Mean Platelet Volume 10.4 fL (7.4-10.4); Monocytes # (auto) 0.76 K/uL (0.11-0.59); Monocytes % (auto) 8.5 %; Neutrophils # (auto) 6.07 K/uL (1.4-6.5); Neutrophils % (auto) 68.3 %; Platelet Count 211 K/uL (130-400); RDW Coefficient of Variation 15.2 % (11.5-14.5); RDW Standard Deviation 52.8 fL (36.4-46.3)
[2020-02-03 05:47] LABS: Partial Thromboplastin Ratio 1.9
[2020-02-03 06:14] LABS: BUN Creatinine Ratio 8.8 (10-20); Calcium 8.8 mg/dl (8.5-10.1); Creatinine Clr Calc Pharmacy 18.8 ml/min; Est GFR (African American) 12.6; Est GFR (Non-African American) 10.9; Potassium 4.4 mmol/L (3.5-5.1)
[2020-02-03] MEDS: INSULIN ASPART 100 UNITS/ML 3 ML PEN SC SCH ×4 (08:00→20:55)
[2020-02-03] MEDS: SEVELAMER HCL 800 MG TABLET PO SCH ×3 (08:40→17:10)
[2020-02-03] MEDS: CLOPIDOGREL BISULFATE 75 MG TAB PO SCH (08:41)
[2020-02-03] MEDS: TAMSULOSIN HCL 0.4 MG CAP PO SCH (08:41)
[2020-02-03] MEDS: ASPIRIN 81 MG ECTAB PO SCH (08:41)
[2020-02-03] MEDS: PANTOprazole 40 MG TAB PO SCH (08:42)
[2020-02-03] MEDS: FUROSEMIDE 80 MG TAB PO SCH ×2 (08:42→17:10)
[2020-02-03] MEDS: SERTRALINE HCL 50 MG TABLET PO SCH (08:42)
[2020-02-03] MEDS: carvediloL 6.25 MG TAB PO SCH ×2 (08:43→20:50)
[2020-02-03] MEDS: AMLODIPINE BESYLATE 5 MG TAB PO SCH (08:43)
[2020-02-03] MEDS: INSULIN GLARGINE SOLOSTAR 100 UNITS/ML 3 ML PEN SC SCH ×2 (08:51→20:54)
--- NOTE | 2020-02-03 09:48 | Nephrology Progress Note ---
Date of Service February 03, 2020 Assessment & Plan (1) End-stage renal disease on hemodialysis: * HD TTS via right brachiocephalic AV fistula. Qb 450; 180 Optiflux. Electrolytes are well controlled. Volume status acceptable. EDW 122 kg. * Remains on Renvela as a phosphate binder. * Renal diet. * Medications are appropriately dosed for kidney function. (2) Anemia: * Chronic, stable. No need for additional MAYLIN therapy at this time. (3) HTN (hypertension): * BP controlled. Tolerating currently therapy well. (4) CAD (coronary artery disease): * Cardiology planning cath today (5) NSTEMI (non-ST elevated myocardial infarction): (6) Paroxysmal atrial flutter: (7) Sinus node dysfunction: Admission and Anticipated Discharge Date Admission Date: January 31, 2020 Subjective No acute events overnight. Angel feels well. No chest pain. No palpitations. No dyspnea. Review of Systems Review of Systems: All systems reviewed & are unremarkable except as noted in HPI & below Physical Exam Constitutional: well developed and + obese; no acute distress Eyes: + anicteric sclerae; no corneal abnormality ENMT: Mouth: no oral mucosal abnormality and oral mucous membranes not dry Neck: normal visual inspection and trachea midline Respiratory: normal respiratory effort Auscultation: lungs clear to auscultation bilaterally Cardiovascular: Rate/Rhythm: + bradycardic Heart Sounds: normal S1, normal S2 and + murmur Extremities: + AV fistula; no edema Gastrointestinal (Abdomen): Inspection/Auscultation: + abdomen distended Percussion/Palpation: abdomen soft; abdomen nontender Musculoskeletal: Extremities: no cyanosis and no clubbing Skin: normal turgor; no lesions Neurologic: Motor/Sensory: no tremor and no asterixis Psychiatric: Orientation: alert and oriented x 3 Results & Data ([facility]) Vital Signs (Past 12 Hours) Vital Signs Temp Pulse Pulse Resp BP Pulse Ox 02/03/20 07:34 36.4 C L 52 L 18 120/66 92 02/03/20 05:36 57 L 02/03/20 03:07 36.4 C L 57 L 18 125/69 95 02/02/20 23:05 36.7 C 53 L 18 132/70 92 Laboratory Results Laboratory Results - last 24 hr 02/02/20 02/02/20 02/02/20 11:19 11:44 16:12 WBC RBC Hgb Hct MCV MCH MCHC RDW Std Deviation RDW Coeff of Atif Plt Count MPV Immature Gran % (Auto) Neut % (Auto) Lymph % (Auto) [place] % (Auto) Eos % (Auto) Baso % (Auto) Neut # (Auto) Lymph # (Auto) [place] # (Auto) Eos # (Auto) Baso # (Auto) Immature Gran # (Auto) APTT 54.8 H* PTT Ratio 2.0 Sodium Potassium Chloride Carbon Dioxide Anion Gap BUN Creatinine Est Cr Clr Drug Dosing Est GFR ( Amer) Est GFR (Non-Af Amer) BUN/Creatinine Ratio Glucose POC Glucose 113 H 108 H Calcium 02/02/20 02/03/20 02/03/20 20:19 05:15 05:15 WBC 8.90 RBC 3.80 L Hgb 11.9 L Hct 36.6 L MCV 96.3 MCH 31.3 MCHC 32.5 RDW Std Deviation 52.8 H RDW Coeff of Atif 15.2 H Plt Count 211 MPV 10.4 Immature Gran % (Auto) 0.2 Neut % (Auto) 68.3 Lymph % (Auto) 16.9 [place] % (Auto) 8.5 Eos % (Auto) 5.8 Baso % (Auto) 0.3 Neut # (Auto) 6.07 Lymph # (Auto) 1.50 [place] # (Auto) 0.76 H Eos # (Auto) 0.52 H Baso # (Auto) 0.03 Immature Gran # (Auto) 0.02 APTT PTT Ratio Sodium 140 Potassium 4.4 Chloride 104 Carbon Dioxide 28 Anion Gap 8.0 BUN 45 H Creatinine 5.08 H* D Est Cr Clr Drug Dosing 18.8 Est GFR ( Amer) 12.6 Est GFR (Non-Af Amer) 10.9 BUN/Creatinine Ratio 8.8 L Glucose 100 H POC Glucose 160 H Calcium 8.8 02/03/20 02/03/20 05:15 07:36 WBC RBC Hgb Hct MCV MCH MCHC RDW Std Deviation RDW Coeff of Atif Plt Count MPV Immature Gran % (Auto) Neut % (Auto) Lymph % (Auto) [place] % (Auto) Eos % (Auto) Baso % (Auto) Neut # (Auto) Lymph # (Auto) [place] # (Auto) Eos # (Auto) Baso # (Auto) Immature Gran # (Auto) APTT 52.0 H* PTT Ratio 1.9 Sodium Potassium Chloride Carbon Dioxide Anion Gap BUN Creatinine Est Cr Clr Drug Dosing Est GFR ( Amer) Est GFR (Non-Af Amer) BUN/Creatinine Ratio Glucose POC Glucose 107 H Calcium PG Care Time/CCT Total # of Minutes Spent Total Time Spent with Patient: Total time spent is greater than 50% in coordination of care (as documented) at patient's floor/unit and/or counseling patient: Coding Level of Care Code 11524 Subseq Hosp Care Lvl 3 Diagnoses End-stage renal disease on hemodialysis N18.6; Z99.2 Anemia D64.9 Anemia type: unspecified type HTN (hypertension) I10 Hypertension type: essential hypertension CAD (coronary artery disease) I25.10 Coronary Disease-Associated Artery/Lesion type: [place] artery [place] vs. transplanted heart: [place] heart Associated angina: without angina NSTEMI (non-ST elevated myocardial infarction) I21.4 Paroxysmal atrial flutter I48.92 Sinus node dysfunction I49.5 (1) Anemia Anemia type: unspecified type Qualified Code(s): D64.9 - Anemia, unspecified (2) HTN (hypertension) Hypertension type: essential hypertension Qualified Code(s): I10 - Essential (primary) hypertension (3) CAD (coronary artery disease) Coronary Disease-Associated Artery/Lesion type: [place] artery [place] vs. transplanted heart: [place] heart Associated angina: without angina Qualified Code(s): I25.10 - Atherosclerotic heart disease of [place] coronary artery without angina pectoris
[2020-02-03] MEDS: cloNIDine HCL 0.1 MG TAB PO SCH ×2 (10:43→20:54)
--- NOTE | 2020-02-03 13:05 | Pre Anesthesia Assessment ---
Date of Service February 03, 2020 Pre Sedation Assessment Vital Signs Temp Pulse Pulse Pulse Resp BP Pulse Ox 02/03/20 12:55 47 L 18 145/66 H 95 02/03/20 11:21 97.3 F L 56 L 18 137/71 94 02/03/20 08:00 45 L 02/03/20 07:34 97.5 F L 52 L 18 120/66 92 02/03/20 05:36 57 L 02/03/20 03:07 97.5 F L 57 L 18 125/69 95 02/02/20 23:05 98.1 F 53 L 18 132/70 92 02/02/20 20:01 97.3 F L 57 L 19 172/80 H 96 02/02/20 16:00 55 L 02/02/20 15:20 98.1 F 95 H 19 158/71 H 94 Cardiovascular RRR, no murmur, no edema Respiratory normal respiratory effort, lungs clear to auscultation Pre-Sedation Airway Assessment Smoking Status: Former smoker Hx Sleep Apnea: No Hx Difficult Intubation: No Short, Thick Neck: No Thyromental Distance: > or= 3.5 Finger Breadths Oral Cavity: + WNL Mallampati Class: II ASA: ASA2 NPO Status Date of Last Intake of Fluids: 02/03/20 Time of Last Intake of Fluids: 07:00 Date of Last Intake of Solid Food: 02/02/20 Time of Last Intake of Solid Foods: 23:00 Procedure Planning Contraindications for Sedation: none Current Medications Reviewed: Yes Notes The planned sedation has been discussed with the patient. Informed Consent was obtained. I have identified the patient, determined the appropriateness of sedation and have assessed the patient immediately prior to the procedure. All medicine(s) and interventions are by my order.
[2020-02-03] MEDS ORDERED: NiCARDipine HCL INJ 2.5 MG/ML 10 ML AMP ONE (13:16)
[2020-02-03] MEDS ORDERED: HEPARIN (PORCINE) 1000 UNIT/ML 10 ML (CATH LAB USE ONLY) ONE (13:16)
[2020-02-03] MEDS ORDERED: MIDAZOLAM HCL 1 MG/ML 2ML VIAL ONE (13:17)
[2020-02-03] MEDS ORDERED: fentaNYL citrate 100 MCG/2 ML VIAL ONE (13:17)
[2020-02-03] MEDS ORDERED: NITROGLYCERIN/D5W 100MCG/ML 20ML SYR ONE (13:17)
--- NOTE | 2020-02-03 14:00 | Post Anesthesia Assessment ---
Date of Service February 03, 2020 Post Sedation Assessment Vital Signs Temp Pulse Pulse Pulse Resp BP Pulse Ox 02/03/20 12:55 47 L 18 145/66 H 95 02/03/20 11:21 97.3 F L 56 L 18 137/71 94 02/03/20 08:00 45 L 02/03/20 07:34 97.5 F L 52 L 18 120/66 92 02/03/20 05:36 57 L 02/03/20 03:07 97.5 F L 57 L 18 125/69 95 02/02/20 23:05 98.1 F 53 L 18 132/70 92 02/02/20 20:01 97.3 F L 57 L 19 172/80 H 96 02/02/20 16:00 55 L 02/02/20 15:20 98.1 F 95 H 19 158/71 H 94 Recovery Score Activity: Moves 4 extremities Respiration: Deep Breath/Cough Circulation: +/-20% PreAnes Value Consciousness: Fully Awake Oxygen Saturation: O2 needed for >90% Discharge Sedation Level of Care: Fast Track Phase II Post Sedation Plan On clinical assessment, the patient appears to have tolerated the sedation without complications. Patient is recovering as anticipated. Patient will continue to be monitored by nursing and may be discharged when sed ation discharge criteria are met per below protocol. Upon Completions of procedure up to 15 minutes continue every 5 minute vital signs and the P.A.R. score; then discharge to a Phase I or Fast Track to Phase II per the following guidelines: * Discharge Patient to appropriate Phase II area if PAR is 8 or greater or return to pre- procedure baseline. The post - procedure orders will be as directed. * If PAR score is less than 8 or not return to pre-procedure baseline then patient will follow Phase I monitoring till PAR is reached for Phase II. The Phase I may be done in procedure room or may call to secure a Phase I area. * If naloxone or flumazenil are used for reversal, hold in Phase I for continued monitoring from when last reversal dose was given for a minimum of 60 minutes or longer pending the nurse and/or physician discretion of patient condition before discharge to Phase II. Please call the Sedation Physician to re-evaluate and complete post-note for discharge to Phase II area. Do NOT discharge from procedure sedation or Phase 1 until post- sedation evaluation note is complete by procedure /sedation MD Sedation Discharge Instructions to be given to the patient at discharge to home.
--- NOTE | 2020-02-03 14:08 | Cardiac Catheterization ---
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 Cardiac Status Clinical evaluation leading to the procedure CAD Presenation: Non STEMI Anginal Classification: CCS III Heart Failure: No Cardiogenic Shock within 24 Hours: No Cardiac Arrest within 24 Hours: No Imaging Studies Past 6 Months: Yes Stress Studies Past 6 Months: No Diagnostic Physicians Name: Luiz Ochoa MD Status: Elective Closure Device Percutaneous Entry Location: Radial Closure Device: Radial Band Recommendations: Medical Therapy and/or Counseling Intraprocedure Events Significant Disection: No Perforation: No Cardiac Cath Procedure Full Procedure Date February 03, 2020 Pre-Procedure Diagnosis Pre-Procedure Diagnosis: Non STEMI AUC Score AUC Score: 8 Post-Procedure Diagnosis Post-Procedure Diagnosis: Severe CAD and Elevated Intracardiac Pressures Procedure(s) Performed Procedure(s) Performed: Coronary Angiography and Left Heart Cath Chicken And Fish Cleaner Luiz Ochoa MD Cracking Unit Operator(s) Ruma Estimated Blood Loss Estimated Blood Loss: 5 Medication(s) Medication(s): Fentanyl, Heparin, Lidocaine 1%, Nicardipine, Nitroglycerin and Versed Summary of Findings Indication: NSTEMI Access: 6 Fr slender left radial artery Catheters: JL4, JR4 Findings: LM -medium caliber, 30% distal prior to bifurcation LAD -medium caliber, widely patent ostial/proximal LAD stents, mid to distal vessel without significant disease. Jailed second diagonal with 70% ostial stenosis but KAY-3 flow Circumflex -medium caliber circumflex and OM1. No significant disease. RCA -large caliber, dominant, luminal irregularities LVEDP -18 Arterial Closure: TR band Summary: 1. Widely patent ostial/proximal LAD stents 2. Stable 30% distal left main stenosis 3. Small jailed second diagonal with 70% ostial stenosis, KAY-3 flow 4. Mildly elevated intracardiac filling pressure Recommendations: No new acute high risk findings. Recommend continued medical management and ASCVD risk factor modification. Can discontinue heparin infusion. Hemodynamics Rest Ao:: 111/56/102 Final Ao: 113/56/80 LV: 121/18 Recommendations Recommendations: Medical Therapy and/or Counseling Specimens Specimens: None Radiation Exposure (mGy) 1276 Contrast (mls) 35 Fluids (cc crystalloids) Fluids (cc crystalloids): 45 Drains Drains: None Anesthesia Moderate Procedural Complication(s) None Disposition PCU I attest to the content of the Intraoperative Record and any orders documented therein. Any exceptions are noted below. [facility] Card Cath Procedure Codes Cardiac Catheterization Procedure 1: Cardiovascular Cath Procedures: 50787 Coronaries and LHC (+/-LV) Moderate Sedation Procedure 1: Sedation/Anesthesia: 60256 Mod Sedation by the same physician;Init15 Min Child Age 5 & Up PG Care Time/CCT Total # of Minutes Spent Total Time Spent with Patient: Total time spent is greater than 50% in coordination of care (as documented) at patient's floor/unit and/or counseling patient:
--- NOTE | 2020-02-03 19:25 | Hospitalist Progress Note ---
Date of Service February 03, 2020 Assessment & Plan Admission and Anticipated Discharge Date Admission Date: January 31, 2020 Angel Solorio is a 69-year-old male with a notable past medical history of GERD, CAD s/p 2x mid-LAD stents in 2018 and at prox-LAD in 12/2019, HFpEF with last EF at 55-60% in 12/2019, atrial flutter, insulin-dependent type 2 diabetes, ESRD on hemodialysis, HLD, HTN, RADHA without CPAP, and sinus node dysfunction status post pacemaker placement in 2018 who presented to the emergency department for acute evaluation of chest pain which resolved s/p ASA and nitro x 1 and Maalox in the ED. Now s/p cardiac cath with unobstructed stent. Chest Pain in Setting of Recent LAD Stenting (12/2019) -- s/p cath. GERD vs. angina not amenable to stent placement -Patient initially reporting burning chest pain secondary to a large meal which was associated with SOB -Notes symptoms resolved entirely in ED s/p ASA, Nitro, and Maalox -Of note patient had not had ASA x2 days prior to admission due to "running out." -Recent stenting 2x mid LAD 2018 and 1x prox LAD 12/2019 -EKG with NSR without ST-T wave abnormalities -Initial troponin negative, trend q6h 0.811 -> 1.340 -> 0.725 -CXR unremarkable for acute process -Cardiology Consulted -s/p cath. no stent placed -Continue dual anti-platelet therapy ASA and Clopidogrel, beta ginger, Atorvastatin -plan for interrogation of patients loop recorder -continue pantoprazole CAD s/p catheterization and stenting 2x at mid-LAD in 2018 and at prox-LAD in 12/2019 -See chest pain above -Continue home plavix and ASA -Continue home atorvastatin CKD Stage V / ESRD -Labs BUN 45, cr. 5.08 -Dialysis on Monday, , and Monday -Nephrology consult placed for dialysis initiation -Dialysis scheduled for tomorrow -Continue ProRenal qPM -Continue Renvela Atrial flutter, previously with RVR during admission 12/2019 -- not currently present on ECG -Telemetry as above/continue monitoring -Prior to his last discharge in , patient was supposed to begin amiodarone to aid with rate control; as he has not initiated this since his last hospitalization, will hold off on initiating at this time given his good rates and normal EKG. -Cardiology will check loop recorder Chronic Medical Problems -HFpEF (EF 55-60% 12/2019): No signs of volume overload at this time -- Continue home Lasix 80 mg PO b.i.d., Coreg 6.25mg PO b.i.d. -ID-DM2: Placed on insulin SQ protocol -- home Lantus is 50U sq b.i.d.; takes Novolog with meals -HTN: Continue home medications -- amlodipine, clonidine as directed -BPH: Continue tamsulosin Dispo: PCU w/ Telemetry F/E/N: Cardiac diet PPX: SCDs Code: Full code Supervising Physician Co-Signing Physician Notes Resident Physician Supervision Note: I independently interviewed and examined the patient and verified the roman history and physical, reviewed labs and image studies, discussed the case with the resident and agree with the findings and care plan. Subjective Doing well this morning, he did not have any chest pain or palpitations. After the catheterization he was told that they would like for him to stay and have dialysis tomorrow before going home. Review of Systems Review of Systems: Constitutional: denies fevers, chills Cardiac: denies chest pain, palpitations GI: denies nausea, vomiting, constipation, diarrhea Physical Exam Constitutional: WD/WN, vitals as above + obese Eyes: PERRL, conjunctivae normal, anicteric sclerae ENMT: external ear and nose normal, oropharynx normal Neck: normal visual inspection Respiratory: normal respiratory effort, lungs clear to auscultation Cardiovascular: RRR, no murmur, no edema Gastrointestinal (Abdomen): normal bowel sounds, soft, nontender, no hepatosplenomegaly Skin: no rashes, warm and dry Psychiatric: Orientation: alert and oriented x 3 Results & Data Results & Data ([facility]) Vital Signs (Past 12 Hours) Vital Signs Temp Pulse Pulse Pulse Pulse Resp BP 02/03/20 19:03 36.6 C 55 L 19 130/68 02/03/20 17:54 57 L 147/75 H 02/03/20 16:54 61 139/77 02/03/20 15:54 63 140/73 02/03/20 15:37 52 L 02/03/20 15:24 36.3 C L 61 20 151/74 H 02/03/20 14:54 59 L 142/77 H 02/03/20 14:51 60 16 170/76 H 02/03/20 14:34 51 L 138/71 02/03/20 14:15 49 L 16 02/03/20 14:00 50 L 16 02/03/20 12:55 47 L 18 145/66 H 02/03/20 11:21 36.3 C L 56 L 18 137/71 02/03/20 08:00 45 L 02/03/20 07:34 36.4 C L 52 L 18 120/66 BP Pulse Ox 02/03/20 19:03 95 02/03/20 17:54 02/03/20 16:54 02/03/20 15:54 02/03/20 15:37 02/03/20 15:24 96 02/03/20 14:54 02/03/20 14:51 95 02/03/20 14:34 96 02/03/20 14:15 186/68 H 94 02/03/20 14:00 186/73 H 94 02/03/20 12:55 95 02/03/20 11:21 94 02/03/20 08:00 02/03/20 07:34 92 CBC Results Results Complete Blood Count Results: RBC 3.80 M/uL (4.7-6.1) L 02/03/20 WBC 8.90 K/uL (4.8-10.8) 02/03/20 Hgb 11.9 g/dL (14.0-18.0) L 02/03/20 Hct 36.6 % (42-52) L 02/03/20 Plt Count 211 K/uL (130-400) 02/03/20 Chemistry (BMP) Results BMP Results: Sodium 140 mmol/L (136-145) 02/03/20 Potassium 4.4 mmol/L (3.5-5.1) 02/03/20 Chloride 104 mmol/L (98-107) 02/03/20 BUN 45 mg/dl (7-18) H 02/03/20 Creatinine 5.08 mg/dl (0.6-1.4) H* 02/03/20 Glucose 100 mg/dl (70-99) H 02/03/20 Resident Activity Tracking Resident Involvement: Resident Care Provided Care Provided: [facility] Medicine
[2020-02-03] MEDS: ATORVASTATIN 40 MG TAB PO SCH (20:49)
[2020-02-03] MEDS: NEPHROCAPS PO SCH (20:49)
[2020-02-04] MEDS ORDERED: HEPARIN SOD (PORCINE) 1000 UNIT/ML 10 ML VIAL IV SCH (07:00)
[2020-02-04 07:10] LABS: BUN Creatinine Ratio 9.1 (10-20); Creatinine Clr Calc Pharmacy 16.7 ml/min; Est GFR (African American) 10.9; Est GFR (Non-African American) 9.4; Potassium 4.6 mmol/L (3.5-5.1)
[2020-02-04] MEDS: INSULIN ASPART 100 UNITS/ML 3 ML PEN SC SCH ×2 (08:14→14:12)
[2020-02-04] MEDS: INSULIN GLARGINE SOLOSTAR 100 UNITS/ML 3 ML PEN SC SCH (08:17)
[2020-02-04] MEDS: SEVELAMER HCL 800 MG TABLET PO SCH ×2 (08:21→14:15)
--- NOTE | 2020-02-04 10:10 | Pharmacy Report ---
Pharmacy Glycemic Short Note 2 - Date of Service February 04, 2020 - Glycemic Short BSG Results (Last 24 hours): 02/03/20 02/03/20 02/03/20 11:23 16:12 20:30 Glucose POC Glucose 109 H 120 H 93 02/04/20 02/04/20 06:05 07:30 Glucose 107 H POC Glucose 108 H OUTPATIENT ANTIDIABETIC REGIMEN: * Lantus 50 units SQ BID * NovoLog 10 units SQ AC * HbA1c = unknown; will not order A1c as this result is likely somewhat unreliable in ESRD patients d/t interactions between the A1c analyzing technique and high levels of urea in ESRD, reduced RBC life span, iron deficiency anemia, and EPO administration. HbA1c > 7.5% in ESRD patient may overestimate the extent of hyperglycemia in ESRD patients. ASSESSMENT: 02/04/20: * Patient rec'd 47 units of insulin yesterday, 40 of which were basal. Patient was NPO for most of the day yesterday, and BSGs were well-controlled, indicating that basal insulin dosing is appropriate. * BSGs have been stable on current regimen for the past 48+ hours. No changes required at this time. 02/01: * Pt has received 49 units of insulin over the past 24hrs * 40 units of basal with Lantus * 9 units of prandial/correctional with NovoLog (low PO intake yesterday-no CHO consumed at breakfast and missed lunch d/t HD) * BSGs 106-128-101 mg/dl * AM fasting BSG in goal range at 101 mg/dl. No changes needed to basal insulin dosing. Current basal insulin dosing is about a 60% reduction from outpatient dosing. Pt will be NPO after midnight for coronary angiography. Typically, we reduce basal insulin dosing by ~20-50% empirically when NPO. However, since pt was essentially NPO yesterday from decreased PO intake, will continue current dosing. OK to give while NPO. May need to decrease further once heparin infusion (mixed in dextrose) is stopped. * Post-prandial BSGs in goal range - but unable to fully assess since PO intake low. Will continue current parameters. 01/31: * 69 yo T2DM male with unknown degree of outpatient control. * Pt is maintained on SQ basal bolus insulin regimen as an outpatient - total daily dose is 130 units/day * Pt was received admitted last month for ~ 24hrs and did not require any basal insulin. Typically, patient require significantly less insulin while admitted as compared to their outpatient dosing due to changes/decreases in PO intake. * Will empirically start with 50% of outpatient dosing and titrate based on BSG trends. PLAN FOR INPATIENT GLYCEMIC CONTROL: * Basal insulin: * Lantus 20 units SQ BID ok to give while NPO * Bolus insulin: no change * NovoLog per scale ACHS or Q6hrs while NPO * Goal Range: Low 110 mg/dL - High 140 mg/dL * Correction Factor: 20 mg/dL/unit * Nutritional / Prandial insulin per carb ratio of 1 unit per 7 grams CHO consumed Discharge Recs: * A1c = 7% on 12/25/19 * However, this result is likely somewhat unreliable in ESRD patients d/t interactions between the A1c analyzing technique and high levels of urea in ESRD, reduced RBC life span, iron deficiency anemia, and EPO administration. HbA1c > 7.5% in ESRD patient may overestimate the extent of hyperglycemia in ESRD patients. * Inpatient needs are significantly less than his home regimen; however, patients typically have significant changes/decreases in PO intake/CHO consumed while admitted as compared to home. * No changes needed to outpatient regimen unless patient is experiencing hypoglycemia.
[2020-02-04] MEDS: HEPARIN SOD (PORCINE) 1000 UNIT/ML 10 ML VIAL IV SCH ×2 (11:33→11:34)
--- NOTE | 2020-02-04 11:45 | Nephrology Progress Note ---
Date of Service February 04, 2020 Assessment & Plan (1) End-stage renal disease on hemodialysis: * HD TTS via right brachiocephalic AV fistula. Qb 450; 180 Optiflux. Electrolytes are well controlled. Volume status acceptable. EDW 122 kg. * HD orders reviewed with patient. * Remains on Renvela as a phosphate binder. * Renal diet. * Medications are appropriately dosed for kidney function. (2) Anemia: * Chronic, stable. No need for additional MAYLIN therapy at this time. (3) HTN (hypertension): * BP controlled. Tolerating currently therapy well. (4) CAD (coronary artery disease): (5) NSTEMI (non-ST elevated myocardial infarction): * s/p angiography yesterday (6) Paroxysmal atrial flutter: (7) Sinus node dysfunction: He seems to have sinus bradycardia at times. Does not appear to be symptomatic. I will interrogate his loop recorder during this admission. And a believes any specific intervention required currently. Admission and Anticipated Discharge Date Admission Date: January 31, 2020 Subjective No acute events overnight. No complications with cardiac catheterization. Denies chest pain. Angel was seen and evaluated during hemodialysis today. Qb at goal. BP acceptable. Review of Systems Review of Systems: All systems reviewed & are unremarkable except as noted in HPI & below Physical Exam Constitutional: well developed and + obese; no acute distress Eyes: + anicteric sclerae; no corneal abnormality ENMT: Mouth: no oral mucosal abnormality and oral mucous membranes not dry Neck: normal visual inspection and trachea midline Respiratory: normal respiratory effort Auscultation: lungs clear to auscultation bilaterally Cardiovascular: Rate/Rhythm: + bradycardic Heart Sounds: normal S1, normal S2 and + murmur Extremities: + AV fistula; no edema Gastrointestinal (Abdomen): Inspection/Auscultation: + abdomen distended Percussion/Palpation: abdomen soft; abdomen nontender Musculoskeletal: Extremities: no cyanosis and no clubbing Skin: normal turgor; no lesions Neurologic: Motor/Sensory: no tremor and no asterixis Psychiatric: Orientation: alert and oriented x 3 Results & Data ([facility]) Vital Signs (Past 12 Hours) Vital Signs Temp Pulse Pulse Pulse Pulse Resp BP 02/04/20 11:20 64 146/74 H 02/04/20 11:00 64 156/76 H 02/04/20 10:40 64 168/75 H 02/04/20 10:20 60 153/70 H 02/04/20 10:00 63 174/82 H 02/04/20 09:40 62 162/76 H 02/04/20 09:20 63 175/80 H 02/04/20 09:00 57 L 167/74 H 02/04/20 08:55 36.8 C 60 60 158/73 H 02/04/20 07:29 36.5 C 51 L 18 02/04/20 03:40 36.4 C L 59 L 16 BP Pulse Ox 02/04/20 11:20 02/04/20 11:00 02/04/20 10:40 02/04/20 10:20 02/04/20 10:00 02/04/20 09:40 02/04/20 09:20 02/04/20 09:00 02/04/20 08:55 02/04/20 07:29 135/66 93 02/04/20 03:40 138/63 91 Laboratory Results Laboratory Results - last 24 hr 02/03/20 02/03/20 02/04/20 16:12 20:30 06:05 Sodium 140 Potassium 4.6 Chloride 104 Carbon Dioxide 27 Anion Gap 9.0 BUN 52 H Creatinine 5.72 H* D Est Cr Clr Drug Dosing 16.7 Est GFR ( Amer) 10.9 Est GFR (Non-Af Amer) 9.4 BUN/Creatinine Ratio 9.1 L Glucose 107 H POC Glucose 120 H 93 Calcium 9.0 02/04/20 07:30 Sodium Potassium Chloride Carbon Dioxide Anion Gap BUN Creatinine Est Cr Clr Drug Dosing Est GFR ( Amer) Est GFR (Non-Af Amer) BUN/Creatinine Ratio Glucose POC Glucose 108 H Calcium PG Care Time/CCT Total # of Minutes Spent Total Time Spent with Patient: Total time spent is greater than 50% in coordination of care (as documented) at patient's floor/unit and/or counseling patient: Coding Level of Care Code 93294 Subseq Hosp Care Lvl 3 Diagnoses End-stage renal disease on hemodialysis N18.6; Z99.2 Anemia D64.9 Anemia type: unspecified type HTN (hypertension) I10 Hypertension type: essential hypertension CAD (coronary artery disease) I25.10 Coronary Disease-Associated Artery/Lesion type: [place]qu[place] artery [place] vs. transplanted heart: [place]qu[place] heart Associated angina: without angina NSTEMI (non-ST elevated myocardial infarction) I21.4 Paroxysmal atrial flutter I48.92 Sinus node dysfunction I49.5 (1) Anemia Anemia type: unspecified type Qualified Code(s): D64.9 - Anemia, unspecified (2) HTN (hypertension) Hypertension type: essential hypertension Qualified Code(s): I10 - Essential (primary) hypertension (3) CAD (coronary artery disease) Coronary Disease-Associated Artery/Lesion type: [place] artery [place] vs. transplanted heart: [place] heart Associated angina: without angina Qualified Code(s): I25.10 - Atherosclerotic heart disease of coqu[place] coronary artery without angina pectoris
--- NOTE | 2020-02-04 11:58 | Discharge Summary ---
Date of Service February 04, 2020 Admission HPI Per Admitting Provider Angel Solorio is a 69-year-old male with a notable past medical history of GERD, CAD s/p 2x mid-LAD stents in 2019 and at prox-LAD in 12/2019, HFpEF with last EF at 55-60% in 12/2019, atrial flutter, insulin-dependent type 2 diabetes, ESRD on hemodialysis, HLD, HTN, RADHA without CPAP, and sinus node dysfunction status post pacemaker placement in 2019 who presented to the emergency department earlier this evening for acute evaluation of chest pain starting today. Patient reports that just before 4:30 PM, he had a heavy meal consisting of beef, beans, multiple hotdogs, and soon after experienced a burning-quality, 4/10 persistent chest pain that was also associated with some shortness of breath and some coughing. He noted that this pain extended bilaterally to his shoulders and up his neck, into the back of his head. He said that the onset was gradual, and not sudden. He actually attributed this pain to reflux, but because he was just in the hospital last month where he was found to have proximal occlusion of the LAD and had a stent placed, he wanted to be safe and undergo evaluation of the hospital. Since this time in the hospital, he reports that he has not had any chest pain, palpitations, or shortness of breath. Denies PND and orthopnea since last admission. Denies peripheral edema. Missed ASA 81 doses last two days because he ran out, but has otherwise been taking ASA and Plavix as p rescribed since last admission. However, at his last stay he was started on amiodarone, which he notes he has not started yet. Since arrival to the ED, he has been hemodynamically stable but mildly hypertensive. His EKG demonstrated normal sinus rhythm without any acute ST-T abnormalities. His troponins have been <0.015. and CK-MB was WNL at 1.2. Chest x-ray was not significant for any acute processes. His laboratories did demonstrate anemia with a hemoglobin at 11.3, unchanged since last admission 01/05. BMP was remarkable only for BUN at 39 and creatinine at 4.59, in the setting of ESRD. Hyperglycemic at 282. Upon arrival he did receive Maalox, aspirin 324, and nitroglycerin sublingual x1. Upon talking with the patient, he reports feeling well and with his pain at about 1 out of 10. He feels comfortable and denies any shortness of breath. Given his recent stenting, he was called for admission. He denies any fatigue, fevers, chills, night sweats, nausea, vomiting, diarrhea. Otherwise per HPI Admission Exam Per Admitting Provider Constitutional: 69-year-old man that is sitting at the edge of his bed, relaxed and watching TV. Upon conversing, he is speaking in full sentences without any acute distress. He is alert and oriented. Eyes: PERRL, conjunctivae normal, anicteric sclerae ENMT: external ear and nose normal, oropharynx normal Respiratory: Good respiratory effort without use of any accessory muscles. Speaking full sentences without dyspnea. Auscultation perhaps reveals mild decrease breath sounds at the bases, but otherwise clear to auscultation bilaterally without any crackles or wheezes. Cardiovascular: Normal rate and regular rhythm. S1 and S2 present without a ny murmurs rubs or gallops. Upper extremity pulses 2+. Lower extremities do display venous stasis, but no peripheral edema. Gastrointestinal (Abdomen): Abdomen is soft and obese, not grossly diste nded. There is some mild tenderness to palpation in the epigastric region, but otherwise not elsewhere. No rebound or guarding. Musculoskeletal: There is mild pain to palpation in the paracervical regions, extending up into the occiput. No firmness or structural abnormalities appreciated. Skin: As per cardiovascular exam Psychiatric: A+Ox3, euthymic affect Principal Diagnosis Chest pain ESRD reflux Discharge Exam Constitutional WD/WN, vitals as above Eyes PERRL, conjunctivae normal, anicteric sclerae ENMT external ear and nose normal, oropharynx normal Neck normal visual inspection Respiratory normal respiratory effort, lungs clear to auscultation Cardiovascular RRR, no murmur, no edema Gastrointestinal (Abdomen) normal bowel sounds, soft, nontender, no hepatosplenomegaly Skin no rashes, warm and dry Psychiatric Orientation: alert Affect: euthymic affect Thought Process: goal directed thought process Discharge Data Allergies Allergy/AdvReac Type Severity Reaction Status Date / Time ragweed pollen Allergy Mild CONGE[place]ON Verified 01/31/20 19:39 Consultations 01/31/20 20:26 ED Decision to Admit Stat 01/31/20 21:25 Consult Cardiology Routine 01/31/20 22:31 Consult Nephrology Routine Procedures Performed Operation Date: 02/03/20 13:00 Actual Procedures p Cath, Left with Cors and Vent - Bunny Ochoa MD s Cineradiography w/Routine Exam - Bunny Ochoa MD Ordered Studies 02/03/20 06:59 CL Cath Imgs for PACS use only Routine Hospital Course (1) Chest pain: 69-year-old male with a notable past medical history of GERD, CAD s/p 2x mid-LAD stents in 2018 and at prox-LAD in 12/2019, HFpEF with last EF at 55-60% in 12/2019, atrial flutter, insulin-dependent type 2 diabetes, ESRD on hemodialysis, HLD, HTN, RADHA without CPAP, and sinus node dysfunction status post pacemaker placement in 2018 who presented to the emergency department for acute evaluation of chest pain which resolved s/p ASA and nitro x 1 and Maalox in the ED. Now s/p cardiac cath with unobstructed stent. Chest Pain in Setting of Recent LAD Stenting (12/2019) -- s/p cath. GERD vs. angina not amenable to stent placement -Patient initially reporting burning chest pain secondary to a large meal which was associated with SOB -Notes symptoms resolved entirely in ED s/p ASA, Nitro, and Maalox -Of note patient had not had ASA x2 days prior to admission due to "running out." -Recent stenting 2x mid LAD 2018 and 1x prox LAD 12/2019 -EKG with NSR without ST-T wave abnormalities -Initial troponin negative, trend q6h 0.811 -> 1.340 -> 0.725 -CXR unremarkable for acute process -Cardiology Consulted -s/p cath. 02/02 no stent placed, medical management -Continue dual anti-platelet therapy ASA and Clopidogrel, beta ginger, Atorvastatin -continue pantoprazole CKD Stage V / ESRD -Labs BUN 52, cr. 5.72 prior to HD on day of discharge -Dialysis on Monday, , and Monday -Nephrology consult placed for dialysis initiation -Dialysis Monday and Monday while inpatient -Continue ProRenal q PM -Continue Renvela Atrial flutter, previously with RVR during admission 12/2019 -- not present on ECG -Prior to his last discharge in , patient was supposed to begin amiodarone to aid with rate control; as he has not initiated this since his last hospitalization, will hold off on initiating at this time given his good rates and normal EKG. -HFpEF (EF 55-60% 12/2019): No signs of volume overload at this time -- Continue home Lasix 80 mg PO b.i.d., Coreg 6.25mg PO b.i.d. -ID-DM2: return to home Lantus 50U sq b.i.d.; Novolog with meals -HTN: Continue home medications -- amlodipine and clonidine -BPH: Continue tamsulosin (2) Paroxysmal atrial flutter: (3) End-stage renal disease on hemodialysis: (4) Sinus node dysfunction: (5) S/P coronary artery stent placement: Total Time Total Time Spent Total Time Spent (In Minutes): see attending attestation Discharge Plan Discharge Items Patient Disposition: Home - Self-Care Reason For Visit: CHEST PAIN Discharge Diagnosis: chest pain Condition on Discharge: Good Activity: Per Instructions section Non-emergency contact: Primary Care Provider and Earth Science Technical Officer Call non-emergency contact if: you have any medication questions and your symptoms worsen Follow-up/Referrals: Shiv Gallardo MD [Primary Care Provider] - (Dr. Gallardo's office from [place] will be calling patient with follow-up apointment time. ) Diet: Heart Healthy and Low Sodium (2gm) Addtl Attending Provider Instructions: Chest pain You had chest pain that brought you into the emergency after having a stent placed one month prior. You had a catheterization and the stent that was placed was open. The pain that you had may have been from your heart not having adequate supply, and this will need to be managed with medication and lifestyle changes since there were not areas that could be stented during the catheterization. You will continue your aspirin, Plavix, and statin. Kidney disease You have chronic kidney disease and receive dialysis as an outpatient. You had dialysis on Monday and Monday and you can continue to go to dialysis on . You can continue your phosphate binders and renal diet. Follow up You should follow up with your primary doctor in 1 week, your brownfield redevelopment specialist in the next few weeks, and your tipple supervisor. Return precautions You should call or come in if you are having a return of your chest pain. Pending Studies at Discharge: No Stand-Alone Forms: [employer], Smoking Cessation Medications and DC Order Prescriptions: Continued amiodarone 200 mg tablet See Rx Instructions .ROUTE .COMPLEX Qty: 45 RF: 3 furosemide [Lasix] 40 mg Tablet 80 mg PO BID RF: 0 insulin aspart U-100 [Novolog PenFill U-100 Insulin] 100 unit/mL Cartridge 10 unit SUBCUT AC RF: 0 tamsulosin 0.4 mg Capsule 0.4 mg PO QAM RF: 0 albuterol sulfate 90 mcg/actuation Hfa Aerosol Inhaler 2 puff INHALATION Q6H PRN (Reason: Shortness Of Breath) RF: 0 sertraline 50 mg Tablet 25 mg PO QAM RF: 0 loratadine 10 mg Tablet 10 mg PO DAILY PRN (Reason: Allergy Symptoms) RF: 0 clonidine HCl 0.1 mg tablet 0.1 mg PO DIRECTED RF: 0 amlodipine 10 mg tablet 5 mg PO QAM RF: 0 carvedilol [Coreg] 12.5 mg tablet 6.25 mg PO BID RF: 0 clopidogrel [Plavix] 75 mg Tablet 75 mg PO DAILY RF: 0 aspirin [Aspir-81] 81 mg Tablet,Delayed Release (Dr/Ec) 81 mg PO DAILY RF: 0 Lantus Solostar U-100 Insulin 100 unit/mL (3 mL) insulin pen 50 unit SUBCUT BID RF: 0 sevelamer carbonate [Renvela] 800 mg tablet 800 mg PO TIDM RF: 0 ProRenal 8 mg iron-800 mcg-1,000 unit tablet 1 tab PO QPM RF: 0 nitroglycerin [Nitrostat] 0.4 mg Tablet, Sublingual 0.4 mg sublingual UD PRN (Reason: chest pain) Qty: 20 RF: 0 atorvastatin 40 mg Tablet 40 mg PO PM Qty: 30 RF: 5 Unknown Med @ Dialysis 1 tab PO 3XWK RF: 0 Discharge Orders: Discharge Order (Routine); Ordered 02/04/20 Ordered By: Nikita Burgos/Other Patient Handouts: Cardiac Catheterization Dc Admission Data Admit Date/Time: 01/31/20 21:20 Attending Provider: Magali Shields Admit Provider: Alli Smith Primary Care Provider: Shiv Gallardo Other Providers: Wisam Hercules ; Bunny Washington ; Tobias Richard ; Alli Manzo Other Interventions: Discharge Summary Assessment (RN) Last Done: 02/04/20 14:26 Supervising Physician Co-Signing Physician Notes Resident Physician Supervision Note: I independently interviewed and examined the patient and verified the roman history and physical, reviewed labs and image studies, discussed the case with the resident and agree with the findings and care plan. Resident Activity Tracking Resident Involvement: Resident Care Provided Care Provided: Adult [facility] Medicine CBC Results Results Complete Blood Count Results: RBC 3.80 M/uL (4.7-6.1) L 02/03/20 WBC 8.90 K/uL (4.8-10.8) 02/03/20 Hgb 11.9 g/dL (14.0-18.0) L 02/03/20 Hct 36.6 % (42-52) L 02/03/20 Plt Count 211 K/uL (130-400) 02/03/20 Chemistry (BMP) Results BMP Results: Sodium 140 mmol/L (136-145) 02/04/20 Potassium 4.6 mmol/L (3.5-5.1) 02/04/20 Chloride 104 mmol/L (98-107) 02/04/20 BUN 52 mg/dl (7-18) H 02/04/20 Creatinine 5.72 mg/dl (0.6-1.4) H* 02/04/20 Glucose 107 mg/dl (70-99) H 02/04/20
[2020-02-04] MEDS: PANTOprazole 40 MG TAB PO SCH (14:15)
[2020-02-04] MEDS: CLOPIDOGREL BISULFATE 75 MG TAB PO SCH (14:16)
[2020-02-04] MEDS: SERTRALINE HCL 50 MG TABLET PO SCH (14:16)
[2020-02-04] MEDS: ASPIRIN 81 MG ECTAB PO SCH (14:16)
[2020-02-04] MEDS: carvediloL 6.25 MG TAB PO SCH (14:17)
[2020-02-04] MEDS: AMLODIPINE BESYLATE 5 MG TAB PO SCH (14:18)
[2020-02-04] MEDS: FUROSEMIDE 80 MG TAB PO SCH (14:18)
[2020-02-04] MEDS: TAMSULOSIN HCL 0.4 MG CAP PO SCH (14:18)
[2020-02-04] MEDS: cloNIDine HCL 0.1 MG TAB PO SCH (14:39)
== END 2020-02-04 16:02 | disposition home or self-care (01) | DRG 286 ==
LOC: ED 18:15 → SUATTDRO 21:20 → 2S 21:20

== ENCOUNTER 2020-03-30 18:43 | Inpatient (IN) ==
[2020-03-30] MEDS ORDERED: ONDANSETRON INJ 2 MG/ML 2 ML VIAL IV STA (19:03)
[2020-03-30] MEDS ORDERED: KETOROLAC TROMETHAMINE 15 MG/ML VIAL IV STA (19:03)
--- NOTE | 2020-03-30 19:08 | Emergency Department Note ---
Impression & Plan Lower abdominal pain, Leukocytosis, Abnormal abdominal CT scan ED Provider Note NAME: LYNN BENZ AGE: 69 SEX: M : 1950 ARRIVES VIA: Ambulance INFORMANT: [Patient][ems] ED PROVIDER(S): [Washington Elliott MD] CHIEF COMPLAINT: Abdominal pain HISTORY OF PRESENT ILLNESS: The patient is a 69-year-old male who presents with 2 days of right lower quadrant abdominal pain. The pain is a 3 or so on a scale of 1-10. The pain is constant. There is no pain radiation. No pain in the testicles. Patient is a dialysis patient and had dialysis yesterday. He is still making urine. No burning to urinate. He had some diarrhea today, he thinks this was from taking baking soda though. There has been no vomiting, no fever, no chest pain or shortness of breath. The patient has a large umbilical hernia that has been present for some time, he is concerned that the pain may somehow be related to the hernia. He presents by ambulance. REVIEW OF SYSTEMS: See HPI for pertinent positives and negatives. A total of ten systems were reviewed and were otherwise negative. PMHx/PSHx: See Below SOCIAL HISTORY: See Below. PHYSICAL EXAM: GENERAL: Patient is in no acute distress. HEENT: No acute trauma, normocephalic atraumatic, mucous membranes moist, no nasal congestion, no scleral icterus. NECK: No stridor, no adenopathy, no meningismus, trachea is midline. LUNGS: Clear to auscultation bilaterally, no wheeze, no rhonchi, breath sounds equal. HEART: 2/6 systolic murmur, regular rate and rhythm. ABDOMEN: Soft, moderately tender in the right lower quadrant, bowel sounds positive, 8 cm umbilical hernia which seems nontender, no peritonitis. EXTREMITIES: No cyanosis, mild bilateral pedal edema, full range of motion of all the joints without pain or difficulty, no signs for acute trauma. NEUROLOGIC: Oriented x 3, no acute motor or sensory deficits, no focal weakness. SKIN: No rash, no jaundice, no diaphoresis. DIFFERENTIAL DIAGNOSIS: Appendicitis, testicular torsion, infections, diverticulitis, UTI, obstruction, mesenteric ischemia, aortic pathology, inflammatory bowel disease, renal colic, PUD, pancreatitis, biliary pathology, hernia, volvulus, constipation, as well as other pathologies. EMERGENCY DEPARTMENT COURSE/PROCEDURES: ECG: Indication was abdominal pain. The ECG shows a sinus rhythm with a first- degree AV block. Rate is 67. The QTc is 460. There is no ST elevation, no PVCs. Continuous Cardiac Monitoring: An order was placed for continuous cardiac monitoring. The monitor shows a rate of 78 with sinus rhythm with a first- degree AV block. MEDICAL DECISION MAKING: There is a mild leukocytosis, this could be consistent with infection. No worrisome anemia. The patient has a normal platelet count. Creatinine is elev ated at over 5, this is consistent with his need for dialysis and his known history of renal failure. No significant electrolyte abnormality requiring emergent correction. No concerning liver enzyme elevation. No evidence for pancreatitis. ECG shows a sinus rhythm, no acute ischemia. Cardiac enzyme testing x1 is not consistent with acute cardiac injury. Urinalysis does not show infection. Coronavirus testing returned negative. Abdominal and pelvis CT showed a possible acute cholecystitis. There was some air in the area of the right rectus sheath of unknown etiology. The possibility of bowel perforation was queried. Gallbladder ultrasound showed a dilated gallbladder with some scan t fluid around the gallbladder itself, no gallstones. Chest x-ray did not show pneumonia or free air. On exam, the patient was tender in the right lower quadrant. He was not toxic or febrile. The patient received IV Toradol, he was given IV Zofran. He was given a dose of IV Zosyn. The patient presents with lower abdominal pain. He does have an abnormal CT of the abdomen and pelvis. At this point, I am not comfortable with discharge home. I did speak with general surgery. Hospitalization, observation was felt warranted. There is no need for emergent surgical intervention. I spoke to the patient and case management. The on-call hospitalist was consulted. Past Med/Surg History Medical History Anemia CAD (coronary artery disease) s/p stent 2018 CHF exacerbation Chronic kidney disease, stage 4 (severe) CKD (chronic kidney disease) Stage 4 Diabetes Dyslipidemia Elevated troponin Elevated troponin HTN (hypertension) Orthostatic dizziness Paroxysmal atrial fibrillation Sinus node dysfunction Sleep apnea does not use CPAP Surgical History AV fistula History of loop recorder Implanted 05/01/2019 Family History Other Hypertension Social History Smoking Status: Former smoker Tobacco Type: Cigarettes Cigarettes Per Day: 10; Second Hand Exposure: No; Hx Alcohol Use: No Hx Substance Use: No Preferred Language: Salvadorean Communication Ability: Effective [place] Required: No Beliefs That Will Affect Care: None marital status: Current Living Situation: Alone How many Children do You have: 0 Feels Safe at Home: Yes Assistive Devices: None Allergies Allergies Allergy/AdvReac Type Severity Reaction Status Date / Time ragweed pollen Allergy Mild [place] Verified 02/25/20 14:16 [place] Complexes Allergy Unknown rash from Verified 02/25/20 14:17 metal Home Meds Home Medications Medication Instructions Recorded Confirmed albuterol sulfate 2 puff INHALATION Q6H PRN 01/06/19 03/30/20 furosemide [Lasix] 80 mg PO BID 01/06/19 03/30/20 insulin aspart U-100 [Novolog 10 unit SUBCUT AC 01/06/19 03/30/20 PenFill U-100 Insulin] loratadine 10 mg PO DAILY PRN 01/06/19 03/30/20 sertraline 50 mg PO QAM PRN 01/06/19 03/30/20 tamsulosin 0.4 mg PO QAM 01/06/19 03/30/20 Lantus Solostar U-100 Insulin 50 unit SUBCUT BID 03/06/19 03/30/20 aspirin [Aspir-81] 81 mg PO DAILY 03/06/19 03/30/20 clopidogrel [Plavix] 75 mg PO DAILY 03/06/19 03/30/20 ProRenal 1 tab PO QPM 09/26/19 03/30/20 sevelamer carbonate [Renvela] 800 mg PO TIDM 09/26/19 03/30/20 amlodipine 10 mg tablet 5 mg PO QAM tab 12/18/19 03/30/20 clonidine HCl 0.1 mg tablet 0.1 mg PO DIRECTED 12/18/19 03/30/20 Unknown Med @ Dialysis 1 tab PO 3XWK 01/31/20 03/30/20 carvedilol [Coreg] 6.25 mg PO BID 03/30/20 03/30/20 Previous Rx's Medication Instructions Recorded atorvastatin 40 mg PO PM #30 tab 12/27/19 nitroglycerin [Nitrostat] 0.4 mg SUBLINGUAL UD PRN #20 tab 12/27/19 Results & Data (ED) Vital Signs Vital Signs - 24 hr 03/30/20 18:51 03/30/20 19:46 03/30/20 21:17 Temperature 36.9 C Temperature Source Oral Pulse Rate 75 Pulse Rate [Right Finger] 62 Respiratory Rate 18 18 Respiratory Depth Normal Blood Pressure 139/91 Blood Pressure [Right Arm] 118/53 L Blood Pressure Mean 107 Blood Pressure Mean [Right Arm] 74 Blood Pressure Position [Right Arm] Lying Pulse Oximetry 90 97 92 Oxygen Delivery Method Room Air Room Air Room Air Sepsis Recent Fever Within 48 Hours No Sepsis New/Unexplained Change in Mental Status No Sepsis Action Taken by Nursing No Action Required 03/30/20 23:00 Temperature Temperature Source Pulse Rate Pulse Rate [Right Finger] 79 Respiratory Rate 18 Respiratory Depth Blood Pressure Blood Pressure [Right Arm] 117/69 Blood Pressure Mean Blood Pressure Mean [Right Arm] 85 Blood Pressure Position [Right Arm] Lying Pulse Oximetry 96 Oxygen Delivery Method Room Air Sepsis Recent Fever Within 48 Hours Sepsis New/Unexplained Change in Mental Status Sepsis Action Taken by Custodial Medications Current Medication List: was personally reviewed by me Laboratory Data Attestation: I reviewed the patient's lab results. Result diagrams: 03/30/20 19:31 03/30/20 19:31 Lab Results 03/30/20 03/30/20 03/30/20 Range/Units 19:31 19:31 19:31 WBC 11.36 H (4.8-10.8) K/uL RBC 3.98 L (4.7-6.1) M/uL Hgb 12.3 L (14.0-18.0) g/dL Hct 38.2 L (42-52) % MCV 96.0 (80-100) fL MCH 30.9 (25-34) pg MCHC 32.2 (32-36) g/dL RDW Std Deviation 51.4 H (36.4-46.3) fL RDW Coeff of Atif 14.8 H (11.5-14.5) % Plt Count 177 (130-400) K/uL MPV 11.1 H (7.4-10.4) fL Immature Gran % (Auto) 0.2 % Neut % (Auto) 72.3 % Lymph % (Auto) 16.5 % Hooker % (Auto) 7.7 % Eos % (Auto) 3.1 % Baso % (Auto) 0.2 % Neut # (Auto) 8.21 H (1.4-6.5) K/uL Lymph # (Auto) 1.88 (1.2-3.4) K/uL Hooker # (Auto) 0.88 H (0.11-0.59) K/uL Eos # (Auto) 0.35 (0-0.5) K/uL Baso # (Auto) 0.02 (0-0.2) K/uL Immature Gran # (Auto) 0.02 (0.00-0.02) K/uL Sodium 139 (136-145) mmol/L Potassium 3.8 (3.5-5.1) mmol/L Chloride 98 (98-107) mmol/L Carbon Dioxide 32 (21-32) mmol/L Anion Gap 9.0 (3-11) BUN 74 H (7-18) mg/dl Creatinine 5.39 H* (0.6-1.4) mg/dl Est Cr Clr Drug Dosing 18.2 ml/min Est GFR ( Amer) 11.7 Est GFR (Non-Af Amer) 10.1 BUN/Creatinine Ratio 13.9 (10-20) Glucose 112 H (70-99) mg/dl Calcium 8.7 (8.5-10.1) mg/dl Magnesium 2.7 H (1.8-2.4) mg/dl Total Bilirubin 0.2 (0.2-1) mg/dl AST 13 L (15-37) U/L ALT 20 (12-78) U/L Alkaline Phosphatase 65 (45-117) U/L Troponin I < 0.015 (0-0.045) ng/ml Total Protein 7.3 (6.4-8.2) gm/dl Albumin 3.2 L (3.4-5.0) gm/dl Globulin 4.1 H (2.5-4.0) gm/dl Albumin/Globulin Ratio 0.8 L (0.9-2) Lipase 292 (73-393) U/L Urine Color Yellow Urine Appearance Clear (Clear) Urine pH 8.0 H (4.5-7.5) Ur Specific [place] 1.013 (1.000-1.030) Urine Protein Negative (Negative) Urine Glucose (UA) Negative (Negative) Urine Ketones Negative (Negative) Urine Blood Negative (Negative) Urine Nitrite Negative (Negative) Urine Bilirubin Negative (Negative) Urine Urobilinogen Negative (Negative) Ur Leukocyte Esterase Negative (Negative) Urine WBC (Auto) 0 (0-5) /hpf Urine RBC (Auto) 0-4 (0-4) /hpf U Hyaline Cast (Auto) 0 (0-5) /lpf U Epithel Cells (Auto) 0-5 (0-5) /lpf Urine Bacteria (Auto) Negative (Negative) COVID-19 Eval Order SARS-CoV-2, RNA, NAAT (NEGATIVE) 03/30/20 03/30/20 Range/Units 22:45 22:45 WBC (4.8-10.8) K/uL RBC (4.7-6.1) M/uL Hgb (14.0-18.0) g/dL Hct (42-52) % MCV (80-100) fL MCH (25-34) pg MCHC (32-36) g/dL RDW Std Deviation (36.4-46.3) fL RDW Coeff of Atif (11.5-14.5) % Plt Count (130-400) K/uL MPV (7.4-10.4) fL Immature Gran % (Auto) % Neut % (Auto) % Lymph % (Auto) % [place] % (Auto) % Eos % (Auto) % Baso % (Auto) % Neut # (Auto) (1.4-6.5) K/uL Lymph # (Auto) (1.2-3.4) K/uL [place] # (Auto) (0.11-0.59) K/uL Eos # (Auto) (0-0.5) K/uL Baso # (Auto) (0-0.2) K/uL Immature Gran # (Auto) (0.00-0.02) K/uL Sodium (136-145) mmol/L Potassium (3.5-5.1) mmol/L Chloride (98-107) mmol/L Carbon Dioxide (21-32) mmol/L Anion Gap (3-11) BUN (7-18) mg/dl Creatinine (0.6-1.4) mg/dl Est Cr Clr Drug Dosing ml/min Est GFR ( Amer) Est GFR (Non-Af Amer) BUN/Creatinine Ratio (10-20) Glucose (70-99) mg/dl Calcium (8.5-10.1) mg/dl Magnesium (1.8-2.4) mg/dl Total Bilirubin (0.2-1) mg/dl AST (15-37) U/L ALT (12-78) U/L Alkaline Phosphatase (45-117) U/L Troponin I (0-0.045) ng/ml Total Protein (6.4-8.2) gm/dl Albumin (3.4-5.0) gm/dl Globulin (2.5-4.0) gm/dl Albumin/Globulin Ratio (0.9-2) Lipase (73-393) U/L Urine Color Urine Appearance (Clear) Urine pH (4.5-7.5) Ur Specific [place] (1.000-1.030) Urine Protein (Negative) Urine Glucose (UA) (Negative) Urine Ketones (Negative) Urine Blood (Negative) Urine Nitrite (Negative) Urine Bilirubin (Negative) Urine Urobilinogen (Negative) Ur Leukocyte Esterase (Negative) Urine WBC (Auto) (0-5) /hpf Urine RBC (Auto) (0-4) /hpf U Hyaline Cast (Auto) (0-5) /lpf U Epithel Cells (Auto) (0-5) /lpf Urine Bacteria (Auto) (Negative) COVID-19 Eval Order Covid19 [facility] SARS-CoV-2, RNA, NAAT NEGATIVE (NEGATIVE) Administered Medications Miscellaneous Information (Piperacill/Tazobac Consult Active) 1 ea N/A UD PRN PRN Reason: Consult Stop: 04/29/20 19:48 Last Admin: 03/30/20 20:08 Dose: 1 ea Documented by: [id number] Discontinued Medications Piperacillin Sod/Tazobactam Sod (Zosyn) 4.5 gm in 120 mls @ 240 mls/hr IV NOW ONE Stop: 03/30/20 20:18 Last Infusion: 03/30/20 22:55 Dose: 0 mls/hr Documented by: [id number] Admin: 03/30/20 20:08 Dose: 240 mls/hr Documented by: [id number] Ketorolac Tromethamine (Ketorolac Tromethamine 15 Mg/Ml Vial) 15 mg IV NOW STA Stop: 03/30/20 19:04 Last Admin: 03/30/20 19:32 Dose: 15 mg Documented by: [id number] Ondansetron HCl (Ondansetron Inj 2 Mg/Ml 2 Ml Vial) 4 mg IV NOW STA Stop: 03/30/20 19:04 Last Admin: 03/30/20 19:32 Dose: 4 mg Documented by: [id number] Imaging Data Radiologist's Impression: CT OF THE ABDOMEN AND PELVIS WITHOUT CONTRAST CLINICAL HISTORY: Right lower quadrant abdominal pain. Dialysis patient. COMPARISON STUDY: CT of the abdomen and pelvis and abdominal ultrasound March 29, 2019. TECHNIQUE: Axial images of the abdomen and pelvis were obtained without IV contrast. Images were reviewed in the axial, sagittal, and coronal planes. Automated exposure control was utilized for the study. A dose lowering technique was utilized adhering to the principles of ALARA. FINDINGS: Lung bases are unremarkable. No pneumatosis, free air or portal venous gas is present. Evaluation of the abdomen and pelvis is suboptimal on this unenhanced examination. The liver, spleen, adrenal glands and pancreas are unremarkable. A splenule is noted. There is no peripancreatic infiltration. No biliary or pancreatic ductal dilatation is noted. The gallbladder is mildly distended. There is mild pericholecystic infiltration. A water attenuation left renal lesion is suboptimally assessed on this unenhanced exam but favors a cyst. There is no hydronephrosis. Moderate renal cortical thinning is noted. The appendix is normal. Is no evidence for a bowel obstruction. Fat-containing umbilical hernia is noted. Note is made of several locules of gas within the right rectus sheath. In addition, there are several locules of intra-abdominal gas which may be extraperitoneal in location. The etiology for this gas is not clear on this examination. No acute fractures are identified within visualized skeletal structures. There is no abdominal or pelvic lymphadenopathy. IMPRESSION: 1. Distended gallbladder with pericholecystic infiltration. The findings suggest acute cholecystitis. A right upper quadrant ultrasound is recommended. 2. Multiple locules of gas within the right rectus sheath as well as a few intra-abdominal foci of gas within the anterior abdomen which may be extraperitoneal. The etiology for this gas is not clear on this exam although the right rectus sheath gas may be venous. A perforated hollow viscus is considered unlikely but cannot be excluded on this exam and therefore close clinical monitoring is recommended. Findings discussed with Dr. Elliott at time of dictation. 3. Normal appendix. No bowel obstruction. 4. Fat-containing umbilical hernia. XR chest 1V portable CLINICAL HISTORY: Abdominal pain. COMPARISON STUDY: Chest radiograph January 31, 2020. FINDINGS: Mild cardiomegaly is unchanged. There is no pneumothorax or pleural effusion. There is no consolidation or evidence for pulmonary edema. Appearance of the chest is unchanged. IMPRESSION: No acute cardiopulmonary findings. No change in appearance of the chest. US gallbladder CLINICAL HISTORY: abnl ct abdomen today COMPARISON STUDY: Right upper quadrant ultrasound March 29, 2019. CT of the abdomen and pelvis March 30, 2020. FINDINGS: Hepatic echogenicity is increased. No hepatic lesions are identified. There is no biliary ductal dilatation. The gallbladder is mildly distended. No gallstones are identified. There is trace pericholecystic fluid. Gallbladder wall thickness is at the upper limits of normal. No sonographic Collier sign was elicited. Pancreatic body is normal. Head and tail are obscured. There is no right hydronephrosis. Right renal cortical thinning is noted. IMPRESSION: 1. No gallstones identified. No sonographic Collier sign. Mildly distended gallbladder with trace pericholecystic fluid. These findings do not strongly suggest acute cholecystitis however a hepatobiliary scan could be obtained if indicated. 2. No biliary ductal dilatation. 3. Probable hepatic steatosis. Discharge Plan Visit Data Chief Complaint: Abdominal Pain Stated Complaint: ABDOMINAL PAIN ED Provider: Washington Elliott Discharge Problem: Lower abdominal pain, Leukocytosis, Abnormal abdominal CT scan Patient Disposition: Admitted As Inpatient Condition: Good Forms Stand Alone Forms: My M/A-COM Prescriptions Prescriptions: No Action furosemide [Lasix] 40 mg Tablet 80 mg PO BID RF: 0 insulin aspart U-100 [Novolog PenFill U-100 Insulin] 100 unit/mL Cartridge 10 unit SUBCUT AC RF: 0 tamsulosin 0.4 mg Capsule 0.4 mg PO QAM RF: 0 albuterol sulfate 90 mcg/actuation Hfa Aerosol Inhaler 2 puff INHALATION Q6H PRN (Reason: Shortness Of Breath) RF: 0 sertraline 50 mg Tablet 50 mg PO QAM PRN (Reason: Anxiety) RF: 0 loratadine 10 mg Tablet 10 mg PO DAILY PRN (Reason: Allergy Symptoms) RF: 0 clonidine HCl 0.1 mg tablet 0.1 mg PO DIRECTED RF: 0 amlodipine 10 mg tablet 5 mg PO QAM RF: 0 clopidogrel [Plavix] 75 mg Tablet 75 mg PO DAILY RF: 0 aspirin [Aspir-81] 81 mg Tablet,Delayed Release (Dr/Ec) 81 mg PO DAILY RF: 0 Lantus Solostar U-100 Insulin 100 unit/mL (3 mL) insulin pen 50 unit SUBCUT BID RF: 0 sevelamer carbonate [Renvela] 800 mg tablet 800 mg PO TIDM RF: 0 ProRenal 8 mg iron-800 mcg-1,000 unit tablet 1 tab PO QPM RF: 0 nitroglycerin [Nitrostat] 0.4 mg Tablet, Sublingual 0.4 mg sublingual UD PRN (Reason: chest pain) Qty: 20 RF: 0 atorvastatin 40 mg Tablet 40 mg PO PM Qty: 30 RF: 5 Unknown Med @ Dialysis 1 tab PO 3XWK RF: 0 carvedilol [Coreg] 6.25 mg tablet 6.25 mg PO BID RF: 0 Referrals Referrals: Shiv Gallardo MD [Primary Care Provider] - Discharge Problem: Leukocytosis Qualifiers: Leukocytosis type: unspecified Qualified Code(s): D72.829 - Elevated white bl ood cell count, unspecified
--- NOTE | 2020-03-30 19:37 | CT Scan Report ---
CT OF THE ABDOMEN AND PELVIS WITHOUT CONTRAST CLINICAL HISTORY: Right lower quadrant abdominal pain. Dialysis patient. COMPARISON STUDY: CT of the abdomen and pelvis and abdominal ultrasound March 29, 2019. TECHNIQUE: Axial images of the abdomen and pelvis were obtained without IV contrast. Images were revi ewed in the axial, sagittal, and coronal planes. Automated exposure control was utilized for the sajan dy. A dose lowering technique was utilized adhering to the principles of ALARA. FINDINGS: Lung bases are unremarkable. No pneumatosis, free air or portal venous gas is present. Eval uation of the abdomen and pelvis is suboptimal on this unenhanced examination. The liver, spleen, adr enal glands and pancreas are unremarkable. A splenule is noted. There is no peripancreatic infiltrati on. No biliary or pancreatic ductal dilatation is noted. The gallbladder is mildly distended. There i s mild pericholecystic infiltration. A water attenuation left renal lesion is suboptimally assessed o n this unenhanced exam but favors a cyst. There is no hydronephrosis. Moderate renal cortical thinnin g is noted. The appendix is normal. Is no evidence for a bowel obstruction. Fat-containing umbilical hernia is noted. Note is made of several locules of gas within the right rectus sheath. In addition, there are several locules of intra-abdominal gas which may be extraperitoneal in location. The etiolo gy for this gas is not clear on this examination. No acute fractures are identified within visualized skeletal structures. There is no abdominal or pelvic lymphadenopathy. IMPRESSION: 1. Distended gallbladder with pericholecystic infiltration. The findings suggest acute cholecystitis. A right upper quadrant ultrasound is recommended. 2. Multiple locules of gas within the right rectus sheath as well as a few intra-abdominal foci of ga s within the anterior abdomen which may be extraperitoneal. The etiology for this gas is not clear on this exam although the right rectus sheath gas may be venous. A perforated hollow viscus is consider ed unlikely but cannot be excluded on this exam and therefore close clinical monitoring is recommende d. Findings discussed with Dr. Elliott at time of dictation. 3. Normal appendix. No bowel obstruction. 4. Fat-containing umbilical hernia. ACT 112: Negative or not required by law. Electronically signed by: Chaim Phan M.D. 03/30/2020 7:35 PM
[2020-03-30] MEDS ORDERED: PIPERACILLIN/TAZOBACTAM 4.5 GM/120 ML BAG IV ONE (19:49)
[2020-03-30] MEDS ORDERED: PIPERACILL/TAZOBAC CONSULT ACTIVE PRN (19:49)
--- NOTE | 2020-03-30 20:17 | XRay Report ---
XR chest 1V portable CLINICAL HISTORY: Abdominal pain. COMPARISON STUDY: Chest radiograph January 31, 2020. FINDINGS: Mild cardiomegaly is unchanged. There is no pneumothorax or pleural effusion. There is no c onsolidation or evidence for pulmonary edema. Appearance of the chest is unchanged. IMPRESSION: No acute cardiopulmonary findings. No change in appearance of the chest. ACT 112: Negative or not required by law. Electronically signed by: Chaim Phan M.D. 03/30/2020 8:16 PM
[2020-03-30 20:24] LABS: Basophils # (auto) 0.02 K/uL (0-0.2); Basophils % (auto) 0.2 %; Eosinophils # (auto) 0.35 K/uL (0-0.5); Eosinophils % (auto) 3.1 %; Hematocrit (blood only) 38.2 % (42-52); Hemoglobin 12.3 g/dL (14.0-18.0); Immature Granulocytes # (auto) 0.02 K/uL (0.00-0.02); Immature Granulocytes % (auto) 0.2 %; Lymphocytes # (auto) 1.88 K/uL (1.2-3.4); Lymphocytes % (auto) 16.5 %; Mean Corpuscular Hemoglobin 30.9 pg (25-34); Mean Corpuscular Hgb Conc 32.2 g/dL (32-36); Mean Platelet Volume 11.1 fL (7.4-10.4); Monocytes # (auto) 0.88 K/uL (0.11-0.59); Monocytes % (auto) 7.7 %; Neutrophils # (auto) 8.21 K/uL (1.4-6.5); Neutrophils % (auto) 72.3 %; Platelet Count 177 K/uL (130-400); RDW Coefficient of Variation 14.8 % (11.5-14.5); RDW Standard Deviation 51.4 fL (36.4-46.3); Red Blood Count 3.98 M/uL (4.7-6.1); White Blood Count 11.36 K/uL (4.8-10.8)
[2020-03-30 20:27] LABS: Appearance Urine Clear (Clear); Bacteria Urine Automated Negative (Negative); Bilirubin Urine Negative (Negative); Blood Urine Negative (Negative); Cast Urine Automated 0 /lpf (0-5); Color Urine Yellow; Epithelial Cell Urine Auto 0-5 /lpf (0-5); Glucose Urine UA Negative (Negative); Ketones Urine Negative (Negative); Leukocyte Esterase Urine Negative (Negative); Nitrite Urine Negative (Negative); RBC Urine Automated 0-4 /hpf (0-4); Specific Gravity Urine 1.013 (1.000-1.030); Urobilinogen Urine Negative (Negative); WBC Urine Automated 0 /hpf (0-5)
[2020-03-30 20:31] LABS: Alanine Aminotransferase 20 U/L (12-78); Albumin Globulin Ratio 0.8 (0.9-2); Albumin Level 3.2 gm/dl (3.4-5.0); Alkaline Phosphatase 65 U/L (45-117); Aspartate Aminotransferase 13 U/L (15-37); BUN Creatinine Ratio 13.9 (10-20); Bilirubin,Total 0.2 mg/dl (0.2-1); Blood Urea Nitrogen 74 mg/dl (7-18); Calcium 8.7 mg/dl (8.5-10.1); Carbon Dioxide 32 mmol/L (21-32); Chloride 98 mmol/L (98-107); Creatinine Clr Calc Pharmacy 18.2 ml/min; Est GFR (African American) 11.7; Est GFR (Non-African American) 10.1; Globulin 4.1 gm/dl (2.5-4.0); Glucose 112 mg/dl (70-99); Lipase 292 U/L (73-393); Magnesium 2.7 mg/dl (1.8-2.4); Potassium 3.8 mmol/L (3.5-5.1); Sodium 139 mmol/L (136-145); Total Protein 7.3 gm/dl (6.4-8.2); Troponin I < 0.015 ng/ml (0-0.045)
[2020-03-30 20:43] LABS: Protein Urine Negative (Negative); Sulfosalicylic Acid Urine Negative (Negative)
--- NOTE | 2020-03-30 21:03 | Ultrasound Report ---
US gallbladder CLINICAL HISTORY: abnl ct abdomen today COMPARISON STUDY: Right upper quadrant ultrasound March 29, 2019. CT of the abdomen and pelvis No 2019. FINDINGS: Hepatic echogenicity is increased. No hepatic lesions are identified. There is no biliary d uctal dilatation. The gallbladder is mildly distended. No gallstones are identified. There is trace p ericholecystic fluid. Gallbladder wall thickness is at the upper limits of normal. No sonographic Mur phy sign was elicited. Pancreatic body is normal. Head and tail are obscured. There is no right hydro nephrosis. Right renal cortical thinning is noted. IMPRESSION: 1. No gallstones identified. No sonographic Collier sign. Mildly distended gallbladder with trace jennifer cholecystic fluid. These findings do not strongly suggest acute cholecystitis however a hepatobiliary scan could be obtained if indicated. 2. No biliary ductal dilatation. 3. Probable hepatic steatosis. ACT 112: Negative or not required by law. Electronically signed by: Chaim Phan M.D. 03/30/2020 9:01 PM
--- NOTE | 2020-03-31 00:37 | History & Physical Report ---
Date of Service March 31, 2020 Assessment & Plan (1) Paroxysmal atrial flutter: Pt is a 69yo gentleman with a PMHx signifcant for CHF, CAD, DMII, CKD on dialysis, BPH and depression who was admitted with acute cholecystitis and suspected perforation. Acute Cholecystitis with suspected perforation -Pt with RLQ abdominal pain of 2 days duration -afebrile, nontachycardic, nontachypneic, WBC>[id number] -CT abd/pelvis with mildly distended gallbladder, trace pericholecystic fluid, possible perforation of hollow viscus -Hepatic US as noted above, recommend HIDA -HIDA scan pending -NPO -consult general surgery -continue Zosyn -Zofran prn for n/v -tylenol IV for pain (received 1 dose Toradol in the ED, pain currently minimal) CAD w stents/A fib -continue home carvedilol 6.25mg BID -hold home plavix, aspirin DMII -hgba1c of 7.0 in Dec 2019, repeat pending with AM labs -continue home Lantus 50U BID -ISS with pharm consult CKD on dialysis -Cr 5.39 on admission -states he had dialysis day prior to admission -consult nephrology -continue home prorenal tabs and renvela 800mg tid CHF -continue home Lasix 80mg BID HTN -continue home klonipin, coreg as above -hold home amlodipine 5mg HLD -hold home atorvastatin 40mg Depression -hold home PRN sertraline BPH -hold home tamsulosin FEN/GI: NPO except for necessary meds CODE STATUS: Full code DVT prophylaxis: holding home plavix and aspirin in anticipation of surgery, SCDs Dispo: Med/Surg (2) End-stage renal disease on hemodialysis: (3) Paroxysmal atrial fibrillation: (4) CKD (chronic kidney disease), stage V: (5) (HFpEF) heart failure with preserved ejection fraction: (6) BPH (benign prostatic hyperplasia): (7) Depression: (8) CAD (coronary artery disease): (9) Hypoxia: (10) Diabetes mellitus type 2 in obese: (11) Hypercholesterolemia: (12) Sleep apnea: (13) HTN (hypertension): (14) Acute cholecystitis: History of Present Illness Primary Care Provider: Shiv Gallardo MD Pt is a 69yo gentleman with a PMHx significant for CHF, CAD, DMII, CKD on dialysis, BPH and depression who was admitted with acute cholecystitis and suspected perforation. States he started having RLQ abdominal pain 2 days ago and thought it was related to his known hernia. Took some baking soda which he believes gave him diarrhea. Pain was 3-5 when it started, and nonradiating. No associated N/V or bloody stools. Believes his assocaited diarrhea could also be due to some stromboli he had with mozarella cheese. He is a past smoker of ciagrs and pipes, states he quit about a year ago. Drinks beer and wine every week and lives by himself in [place]. He is retired and desires to be a full code, joking that he has two cats at home to take care of. Allergies Allergy/AdvReac Type Severity Reaction Status Date / Time ragweed pollen Allergy Mild [place] Verified 02/25/20 14:16 [place] Allergy Unknown rash from Verified 02/25/20 14:17 metal Home Medications Medication Instructions Recorded Confirmed Type albuterol sulfate 2 puff INHALATION Q6H PRN 01/06/19 03/30/20 History furosemide [Lasix] 80 mg PO BID 01/06/19 03/30/20 History insulin aspart U-100 [Novolog 10 unit SUBCUT AC 01/06/19 03/30/20 History PenFill U-100 Insulin] loratadine 10 mg PO DAILY PRN 01/06/19 03/30/20 History sertraline 50 mg PO QAM PRN 01/06/19 03/30/20 History tamsulosin 0.4 mg PO QAM 01/06/19 03/30/20 History Lantus Solostar U-100 Insulin 50 unit SUBCUT BID 03/06/19 03/30/20 History aspirin [Aspir-81] 81 mg PO DAILY 03/06/19 03/30/20 History clopidogrel [Plavix] 75 mg PO DAILY 03/06/19 03/30/20 History ProRenal 1 tab PO QPM 09/26/19 03/30/20 History sevelamer carbonate [Renvela] 800 mg PO TIDM 09/26/19 03/30/20 History amlodipine 10 mg tablet 5 mg PO QAM tab 12/18/19 03/30/20 History clonidine HCl 0.1 mg tablet 0.1 mg PO DIRECTED 12/18/19 03/30/20 History atorvastatin 40 mg PO PM #30 tab 12/27/19 03/30/20 Rx nitroglycerin [Nitrostat] 0.4 mg SUBLINGUAL UD PRN #20 tab 12/27/19 03/30/20 Rx Unknown Med @ Dialysis 1 tab PO 3XWK 01/31/20 03/30/20 History carvedilol [Coreg] 6.25 mg PO BID 03/30/20 03/30/20 History Past Med/Surg History Medical History Anemia CAD (coronary artery disease) s/p stent 2018 CHF exacerbation Chronic kidney disease, stage 4 (severe) CKD (chronic kidney disease) Stage 4 Diabetes Dyslipidemia Elevated troponin Elevated troponin HTN (hypertension) Orthostatic dizziness Paroxysmal atrial fibrillation Sinus node dysfunction Sleep apnea does not use CPAP Surgical History AV fistula History of loop recorder Implanted 05/01/2019 Family History Other Hypertension Social History Smoking Status: Former smoker Tobacco Type: Cigarettes Cigarettes Per Day: 10; Second Hand Exposure: No; Do You Dip or Chew Tobacco: No; Hx Alcohol Use: Yes Alcohol type: beer and wine Hx Substance Use: No Preferred Language: Upper Sorbian Communication Ability: Effective Director Rehabilitation Program Required: No Beliefs That Will Affect Care: None marital status: Current Living Situation: Alone How many Children do You have: 0 Other Information That Helps Us Care for You: No Feels Safe at Home: Yes Safety Concerns: Feels Safe At This Time Assistive Devices: Walker Assistive Devices Comment: pt has a walker at home but does not use it Review of Systems Constitutional: no fever, no chills and no sweats Eyes: no worsening vision Ear, Nose, Mouth, Throat: no nasal congestion and no sore throat Respiratory: no dyspnea Cardiovascular: + edema; no chest pain and no palpitations Gastrointestinal: + abdominal pain and + diarrhea/loose stools; no nausea, no vomiting, no constipation and no blood in stools Genitourinary: no dysuria and no hematuria Musculoskeletal: no back pain Integumentary: no rash Neurologic: no headache(s) Psychiatric: no confusion Physical Exam Physical Exam: General: Alert, oriented. No acute distress sitting at the side of the bed Skin: No noted rashes or bruises Psych: Appropriate mood and affect Neuro: No gross deficits HEENT: NC/AT Chest: Nontender to palpation. CV: RRR, Normal s1, s2. No murmurs appreciated Resp: Breath sounds clear bilaterally but decreased, no increased effort of breathing. Abdomen: Soft, tender in RLQ and RUQ, protuberant. No guarding. Extremities: ++ edema in lower extremities bilaterally. Results & Data Results & Data ([facility]) Vital Signs (Past 12 Hours) Vital Signs Temp Pulse Pulse Resp BP BP Pulse Ox 03/30/20 23:00 79 18 117/69 96 03/30/20 21:17 62 18 118/53 L 92 03/30/20 19:46 97 03/30/20 18:51 36.9 C 75 18 139/91 90 Supervising Physician Co-Signing Physician Notes Patient seen and examined, chart reviewed, case discussed with Dr. Umñaa and I agree with her assessment and plan as documented above. Briefly, patient is a 69yo C male with ESRD on HD q M/W/F, RUQ abdominal pain, diarrhea. On exam he is afebrile, HD stable NAD, resting comfortably in chair HEENT - NC/AT, PERRL, EOMI Heart - +S1/S2, regular Lungs - CTA Abd- +BS, obese, +hernia - firm, nontender, +RUQ tenderness, no re bound/guarding/peritoneal signs Ext - RUE AV fistula with palpable thrill Labs and images reviewed Assessment/Plan - -Admit to medical -Zosyn -General surgery consultation appreciated -HIDA scan ordered -Remainder of plan as above Resident Activity Tracking Resident Involvement: Resident Care Provided Care Provided: Adult Hospital Medicine (1) BPH (benign prostatic hyperplasia) Lower urinary tract symptom presence: symptoms absent Qualified Code(s): N40.0 - Benign prostatic hyperplasia without lower urinary tract symptoms (2) Sleep apnea Sleep apnea type: unspecified type Qualified Code(s): G47.30 - Sleep apnea, unspecified (3) CAD (coronary artery disease) Associated angina: without angina Coronary Disease-Associated Artery/Lesion type: [place] artery [place] vs. transplanted heart: [place] heart Qualified Code(s): I25.10 - Atherosclerotic heart disease of [place] coronary artery without angina pectoris (4) Depression Active/Remission status: remission status unspecified Depression Type: major depressive disorder Major depression recurrence: recurrent Qualified Code(s): F33.9 - Major depressive disorder, recurrent, unspecified (5) HTN (hypertension) Hypertension type: essential hypertension Qualified Code(s): I10 - Essential (primary) hypertension
[2020-03-31] MEDS ORDERED: DEXTROSE 50% 50 ML SYRINGE IV PRN (01:44)
[2020-03-31] MEDS ORDERED: GLUCOSE 40% GEL 15 GM TUBE PO PRN (01:44)
[2020-03-31] MEDS ORDERED: PIPERACILL/TAZOBAC CONSULT ACTIVE PRN (01:44)
[2020-03-31] MEDS ORDERED: CARBOHYDRATES FOR HYPOGLYCEMIA PO PRN (01:44)
[2020-03-31] MEDS ORDERED: GLUCAGON FOR INJ 1 MG VIAL SQ PRN (01:44)
[2020-03-31] MEDS ORDERED: ALBUTEROL HFA 8 GM INHALER INH PRN (01:44)
[2020-03-31] MEDS ORDERED: GLUCOSE 10 TABS/TUBE PO PRN (01:44)
[2020-03-31] MEDS ORDERED: ONDANSETRON INJ 2 MG/ML 2 ML VIAL IV PRN (01:53)
[2020-03-31] MEDS ORDERED: ACETAMINOPHEN 1000 MG/100 ML IV IV PRN (01:53)
[2020-03-31] MEDS ORDERED: PHARMACY GLYCEMIC MGMT CONSULT PRN (01:59)
[2020-03-31] MEDS ORDERED: PIPERACILLIN/TAZOBACTAM 4.5 GM in DEXTROSE 5% 100 ML IV SCH ×2 (02:00→04:00)
--- NOTE | 2020-03-31 05:26 | Billing Data ---
Date of Service March 31, 2020 Coding Level of Care Code 58883 Initial Inpt Care Lvl 3
[2020-03-31] MEDS: INSULIN ASPART 100 UNITS/ML 3 ML PEN SC SCH ×4 (05:46→20:53)
[2020-03-31 07:30] LABS: Basophils # (auto) 0.03 K/uL (0-0.2); Basophils % (auto) 0.4 %; Eosinophils # (auto) 0.34 K/uL (0-0.5); Eosinophils % (auto) 4.8 %; Hematocrit (blood only) 39.2 % (42-52); Hemoglobin 12.2 g/dL (14.0-18.0); Immature Granulocytes # (auto) 0.02 K/uL (0.00-0.02); Immature Granulocytes % (auto) 0.3 %; Lymphocytes # (auto) 1.51 K/uL (1.2-3.4); Lymphocytes % (auto) 21.4 %; Mean Corpuscular Hemoglobin 30.3 pg (25-34); Mean Corpuscular Hgb Conc 31.1 g/dL (32-36); Mean Corpuscular Volume 97.3 fL (80-100); Mean Platelet Volume 10.8 fL (7.4-10.4); Monocytes # (auto) 0.47 K/uL (0.11-0.59); Monocytes % (auto) 6.7 %; Neutrophils # (auto) 4.69 K/uL (1.4-6.5); Neutrophils % (auto) 66.4 %; Platelet Count 173 K/uL (130-400); RDW Coefficient of Variation 15.2 % (11.5-14.5); RDW Standard Deviation 54.3 fL (36.4-46.3); Red Blood Count 4.03 M/uL (4.7-6.1); White Blood Count 7.06 K/uL (4.8-10.8)
[2020-03-31 07:33] LABS: Estimated Average Glucose 180 mg/dl; Hemoglobin A1C 7.9 % (4.5-5.6)
[2020-03-31 08:28] LABS: Albumin Globulin Ratio 0.8 (0.9-2); Albumin Level 3.1 gm/dl (3.4-5.0); BUN Creatinine Ratio 13.4 (10-20); Bilirubin,Total 0.7 mg/dl (0.2-1); Calcium 8.7 mg/dl (8.5-10.1); Creatinine Clr Calc Pharmacy 16.7 ml/min; Est GFR (African American) 10.5; Est GFR (Non-African American) 9.1; Globulin 3.8 gm/dl (2.5-4.0); Potassium 4.2 mmol/L (3.5-5.1); Total Protein 6.9 gm/dl (6.4-8.2)
[2020-03-31] MEDS ORDERED: SINCALIDE IV SCH (08:45)
[2020-03-31] MEDS ORDERED: SODIUM CHLORIDE 0.9% IV SCH (08:45)
[2020-03-31] MEDS ORDERED: INSULIN GLARGINE SOLOSTAR 100 UNITS/ML 3 ML PEN SC SCH (09:00)
[2020-03-31] MEDS ORDERED: INSULIN GLARGINE SOLOSTAR 100 UNITS/ML 3 ML PEN SQ SCH (09:00)
--- NOTE | 2020-03-31 10:09 | Nuclear Medicine Report ---
NM hepatobiliary EF CLINICAL HISTORY: r/o cholecystitis COMPARISON STUDY: CT of the abdomen and pelvis and right upper quadrant ultrasound March 30, 2020 . TECHNIQUE: 5.9 mCi of technetium 99m Choletec was injected IV at 8:05 AM on March 31, 2020. Immedi ately following injection, imaging of the abdomen was carried out for 60 minutes. At this time, 2.6 m cg of sincalide was injected IV as per protocol imaging was carried out for an additional 45 minutes. FINDINGS: Hepatic uptake of radiotracer is prompt and homogeneous. Activity is identified within the common bile duct and small bowel at 10 minutes. Gallbladder activity is noted at 15 minutes. Gallblad yasmin ejection fraction is within normal limits at 30%. Normal is greater than 30-35%. IMPRESSION: 1. No evidence for acute or chronic cholecystitis. 2. Normal gallbladder ejection fraction. ACT 112: Negative or not required by law. Electronically signed by: Chaim Phan M.D. 03/31/2020 10:08 AM
--- NOTE | 2020-03-31 10:20 | Pharmacy Report ---
Glycemic Control Consultation - Date of Service March 31, 2020 - Scope Scope: Glycemic Pharmacist consulted for glycemic control and to write orders per [facility] inpatient glycemic control protocol. - Objective Weight: 127.9 kg Accuchecks BSG (last 24hrs): 03/30/20 03/31/20 03/31/20 19:31 05:41 07:11 Glucose 112 H 119 H POC Glucose 110 H Laboratory Data (last 24hrs): 03/30/20 03/31/20 19:31 07:11 Potassium 3.8 4.2 Carbon Dioxide 32 30 Anion Gap 9.0 9.0 Creatinine 5.39 H* 5.90 H* D Est Cr Clr Drug Dosing 18.2 16.7 HbA1c: Hemoglobin A1c 7.9 % (4.5-5.6) H 03/31/20 07:11 - Recent Pertinent Medications Outpatient Anti-diabetic Regimen: * Novolog 10 units AC, Lantus 50 units BID * A1c unreliable in setting of HD The patient is currently receiving: * Basal insulin: * Correctional Insulin: Novolog Correction per scale ACHS Goal Range: Low 110 mg/dL - High 140mg/dL Correction Factor: 30 mg/dL/unit * Prandial insulin: Per carb ratio of 1 unit per 10 grams CHO consumed Risk Factors for Insulin Resistance: * Infection: Acute Cholecystitis- zosyn * Diet: NPO - Assessment & Plan Assessment & Plan: ASSESSMENT: * Patient admitted with acute cholecystitis, currently NPO and awaiting surgical consultation, on zosyn * History of Type 2 diabetes and on chronic dialysis * Patient had adequate inpatient control during admission in January 2020, he was maintained on lantus 20 units BID and a CF/CR of 50/7. * Patient was on a heparin infusion/diet during that time, therefore will slightly decrease initial lantus dosing ~25% from that admission to 15 units BID. PLAN FOR INPATIENT GLYCEMIC CONTROL: * Basal insulin * Lantus 15 units SQ BID * Bolus insulin * NovoLog per scale ACHS or Q6hrs while NPO * Goal Range: Low 110 mg/dL - High 140 mg/dL * Correction Factor: 20 mg/dL/unit * Nutritional / Prandial insulin per carb ratio of 1 unit per 7 grams CHO consumed * Please note that the plan above was derived based on current level of insulin resistance and hospital stress. These recommendations are appropriate for inpatient admission only. Plan of care upon discharge will need to be reassessed to avoid potential outpatient hypo/hyperglycemia. Thank you.
--- NOTE | 2020-03-31 10:21 | Nephrology Consultation ---
Date of Consultation March 31, 2020 Assessment & Plan (1) End-stage renal disease on hemodialysis: ESRD on HD TTS at [facility]. Admitted with abdominal pain, gallbladder ultrasound and HIDA scan negative for gallstone, acute/ chronic cholecystitis. Pain improve significantly in clinically otherwise asymptomatic stable. -- Plan for 4.5 hours dialysis as his regular schedule UF as tolerated to reach EDW ( 122 kg) -- continue on Nephrocaps and Renvela with meals -- rt arm precaution ( AVF) Will follow Thank you for allowing me to participate in your patient's care. It was a pleasure to see Angel. (2) Lower abdominal pain: (3) Anemia: (4) HTN (hypertension): (5) Secondary hyperparathyroidism of renal origin: History of Present Illness Reason for Consultation: ESRD on hemodialysis, admitted with abdominal pain. Attending Physician: Magali Shields MD History of Present Illness Mr. Angel Solorio is a 69-year-old male with ESRD on HD, HTN, DM, A fib, CAD admitted to the hospital overnight with abdominal pain. Nephrology consult was requested to provide hemodialysis while inpatient. EMS records are reviewed in detail during patient's visit. Angel presented to the hospital with 2 days history of right lower quadrant abdominal pain. CT A/P w/o contrast on admission showed distended gallbladder with pericholecystic infiltration suggestive of acute cholecystitis however gallbladder ultrasound and HIDA scan was negative for gallstones or acute cholecystitis. evaluated by General surgery and no surgical intervention was indicated. Gallbladder distension pericholecystic infiltration possibly related to volume overload. Has ESRD secondary to diabetes mellitus and hypertension, on HD since 2018, dialyzes on a TTS schedule via Rt BC av fistula. currently on 4 hours 30 minutes dialysis, EDW 122 kg, however he always has issues with significant volume overload in between dialysis treatment. Patient is listed for transplant through the [facility]. Has h/o CAD s/p prior PCI, heart failure with preserved ejection fraction, intermittent atrial fibrillation / atrial flutter with AV node dysfunction, as well obstructive sleep apnea. Abdominal pain improve significantly, denies nausea, diarrhea. Feels hungry. Denies SOB, CP. Allergies Allergy/AdvReac Type Severity Reaction Status Date / Time ragweed pollen Allergy Mild [place] Verified 02/25/20 14:16 [place] Complexes Allergy Unknown rash from Verified 02/25/20 14:17 metal Home Medications Medication Instructions Recorded Confirmed Type albuterol sulfate 2 puff INHALATION Q6H PRN 01/06/19 03/30/20 History furosemide [Lasix] 80 mg PO BID 01/06/19 03/30/20 History insulin aspart U-100 [Novolog 10 unit SUBCUT AC 01/06/19 03/30/20 History PenFill U-100 Insulin] loratadine 10 mg PO DAILY PRN 01/06/19 03/30/20 History sertraline 50 mg PO QAM PRN 01/06/19 03/30/20 History tamsulosin 0.4 mg PO QAM 01/06/19 03/30/20 History Lantus Solostar U-100 Insulin 50 unit SUBCUT BID 03/06/19 03/30/20 History aspirin [Aspir-81] 81 mg PO DAILY 03/06/19 03/30/20 History clopidogrel [Plavix] 75 mg PO DAILY 03/06/19 03/30/20 History ProRenal 1 tab PO QPM 09/26/19 03/30/20 History sevelamer carbonate [Renvela] 800 mg PO TIDM 09/26/19 03/30/20 History amlodipine 10 mg tablet 5 mg PO QAM tab 12/18/19 03/30/20 History clonidine HCl 0.1 mg tablet 0.1 mg PO DIRECTED 12/18/19 03/30/20 History atorvastatin 40 mg PO PM #30 tab 12/27/19 03/30/20 Rx nitroglycerin [Nitrostat] 0.4 mg SUBLINGUAL UD PRN #20 tab 12/27/19 03/30/20 Rx Unknown Med @ Dialysis 1 tab PO 3XWK 01/31/20 03/30/20 History carvedilol [Coreg] 6.25 mg PO BID 03/30/20 03/30/20 History Patient History Medical History (Updated 03/31/20 @ 11:19 by Park Raza MD) Anemia CAD (coronary artery disease) s/p stent 2018 CHF exacerbation Chronic kidney disease, stage 4 (severe) CKD (chronic kidney disease) Stage 4 Diabetes Dyslipidemia Elevated troponin Elevated troponin HTN (hypertension) Orthostatic dizziness Paroxysmal atrial fibrillation Secondary hyperparathyroidism of renal origin Sinus node dysfunction Sleep apnea does not use CPAP Surgical History AV fistula History of loop recorder Implanted 05/01/2019 Family History Other Hypertension Social History Smoking Status: Former smoker Tobacco Type: Cigarettes Cigarettes Per Day: 10; Second Hand Exposure: No; Do You Dip or Chew Tobacco: No; Hx Alcohol Use: Yes Alcohol type: beer and wine Hx Substance Use: No Preferred Language: Chinese Communication Ability: Effective Transportation Broker Required: No Beliefs That Will Affect Care: None marital status: Current Living Situation: Alone How many Children do You have: 0 Other Information That Helps Us Care for You: No Feels Safe at Home: Yes Safety Concerns: Feels Safe At This Time Assistive Devices: None Assistive Devices Comment: pt has a walker at home but does not use it Review of Systems Review of Systems: All systems reviewed & are unremarkable except as noted in Subjective Physical Exam Constitutional: WD/WN, vitals as above + obese; no acute distress Eyes: PERRL, conjunctivae normal, anicteric sclerae ENMT: external ear and nose normal, oropharynx normal Ears: no hearing impairment Neck: trachea midline Respiratory: normal respiratory effort, lungs clear to auscultation no cough Auscultation: no crackles, no rales and no wheezes Cardiovascular: Rate/Rhythm: regular rate and regular rhythm Heart Sounds: normal S1 Extremities: no edema Gastrointestinal (Abdomen): normal bowel sounds, soft, nontender, no hepatosplenomegaly Inspection/Auscultation: + abdomen distended and normal bowel sounds Percussion/Palpation: abdomen soft and + hernia; abdomen nontender, no guarding and abdomen not rigid Musculoskeletal: Extremities: extremities normal to inspection Gait: normal gait Skin: no rashes, warm and dry Neurologic: awake; no focal motor deficits and not confused Psychiatric: A+Ox3, euthymic affect Results & Data ([facility]) Vital Signs (Past 12 Hours) Vital Signs Temp Pulse Pulse Resp BP BP BP 03/31/20 07:38 36.6 C 51 L 18 129/75 03/31/20 01:32 36.4 C L 57 L 16 143/75 H 03/31/20 00:59 60 18 114/56 L 03/30/20 23:00 79 18 117/69 Pulse Ox 03/31/20 07:38 90 03/31/20 01:32 95 03/31/20 00:59 93 03/30/20 23:00 96 PG Care Time/CCT Total # of Minutes Spent Total Time Spent with Patient: Total time spent is greater than 50% in coordination of care (as documented) at patient's floor/unit and/or counseling patient: Coding Level of Care Code 02222 Inpt Consult Level 5 Diagnoses End-stage renal disease on hemodialysis N18.6; Z99.2 Lower abdominal pain R10.30 Anemia D64.9 Anemia type: unspecified type HTN (hypertension) I10 Hypertension type: essential hypertension Secondary hyperparathyroidism of renal origin N25.81 (1) Anemia Anemia type: unspecified type Qualified Code(s): D64.9 - Anemia, unspecified (2) HTN (hypertension) Hypertension type: essential hypertension Qualified Code(s): I10 - Essential (primary) hypertension
--- NOTE | 2020-03-31 10:46 | Surgery Consultation ---
Date of Consultation March 31, 2020 Assessment & Plan (1) Abnormal abdominal CT scan: The small droplets of air in the rectus sheath and also in the preperitoneum I have an etiology that is unclear. He does give himself insulin injections into his abdominal wall which is not thick. There is no evidence of intra-abdominal inflammatory change. I doubt very much that there is a perforated viscus. He has no clinical evidence of peritonitis. I would not recommend surgical intervention at this time. (2) Acute cholecystitis: Patient's abdominal pain was in the right lower quadrant. He is a dialysis patient. And so the fluid around the gallbladder may be related to intravascular volume repletion. The ultrasound showed no evidence of wall thickening. There is no cholelithiasis. The ducts are not dilated. His hepatobiliary scan showed prompt filling of the gallbladder. I doubt that this patient has acute cholecystitis. History of Present Illness Reason for Consultation: Abdominal pain Requesting Physician: Magali Shields MD Attending Physician: Magali Shields MD History of Present Illness I have been asked by Dr. Shields to see this 69-year-old male who presented to the emergency room with a complaint of abdominal pain. The pain began about 2 days ago. The pain was located mostly in the right lower quadrant. It was sharp. The intensity escalated over a day. He had no nausea or vomiting with this. He felt like he might have been constipated and took some baking soda water which caused diarrhea. He has been passing flatus. He is an umbilical hernia that he has had for many years. It protrudes at all times. It has not changed in size. The discomfort was not directly over the umbilical hernia. Today the pain is almost completely resolved. He still has no nausea. CT scan of the abdomen and pelvis demonstrated some fluid around the gallbladder but there was no wall thickening or cholelithiasis. Subsequent ultrasound showed no abnormalities of the gallbladder or biliary tree. He had a hepatobiliary scan today that showed prompt filling of the gallbladder. There was also prompt filling of the small bowel. There is no evidence of cholecystitis based on that exam. Allergies Allergy/AdvReac Type Severity Reaction Status Date / Time ragweed pollen Allergy Mild [place] Verified 02/25/20 14:16 [place] Complexes Allergy Unknown rash from Verified 02/25/20 14:17 metal Home Medications Medication Instructions Recorded Confirmed Type albuterol sulfate 2 puff INHALATION Q6H PRN 01/06/19 03/30/20 History furosemide [Lasix] 80 mg PO BID 01/06/19 03/30/20 History insulin aspart U-100 [Novolog 10 unit SUBCUT AC 01/06/19 03/30/20 History PenFill U-100 Insulin] loratadine 10 mg PO DAILY PRN 01/06/19 03/30/20 History sertraline 50 mg PO QAM PRN 01/06/19 03/30/20 History tamsulosin 0.4 mg PO QAM 01/06/19 03/30/20 History Lantus Solostar U-100 Insulin 50 unit SUBCUT BID 03/06/19 03/30/20 History aspirin [Aspir-81] 81 mg PO DAILY 03/06/19 03/30/20 History clopidogrel [Plavix] 75 mg PO DAILY 03/06/19 03/30/20 History ProRenal 1 tab PO QPM 09/26/19 03/30/20 History sevelamer carbonate [Renvela] 800 mg PO TIDM 09/26/19 03/30/20 History amlodipine 10 mg tablet 5 mg PO QAM tab 12/18/19 03/30/20 History clonidine HCl 0.1 mg tablet 0.1 mg PO DIRECTED 12/18/19 03/30/20 History atorvastatin 40 mg PO PM #30 tab 12/27/19 03/30/20 Rx nitroglycerin [Nitrostat] 0.4 mg SUBLINGUAL UD PRN #20 tab 12/27/19 03/30/20 Rx Unknown Med @ Dialysis 1 tab PO [id number] 01/31/20 03/30/20 History carvedilol [Coreg] 6.25 mg PO BID 03/30/20 03/30/20 History Patient History Medical History Anemia CAD (coronary artery disease) s/p stent 2018 CHF exacerbation Chronic kidney disease, stage 4 (severe) CKD (chronic kidney disease) Stage 4 Diabetes Dyslipidemia Elevated troponin Elevated troponin HTN (hypertension) Orthostatic dizziness Paroxysmal atrial fibrillation Sinus node dysfunction Sleep apnea does not use CPAP Surgical History AV fistula History of loop recorder Implanted 05/01/2019 Family History Other Hypertension Social History Smoking Status: Former smoker Tobacco Type: Cigarettes Cigarettes Per Day: 10; Second Hand Exposure: No; Do You Dip or Chew Tobacco: No; Hx Alcohol Use: Yes Alcohol type: beer and wine Hx Substance Use: No Preferred Language: Trinidadian Communication Ability: Effective Hospitality Associate Required: No Beliefs That Will Affect Care: None marital status: Current Living Situation: Alone How many Children do You have: 0 Other Information That Helps Us Care for You: No Feels Safe at Home: Yes Safety Concerns: Feels Safe At This Time Assistive Devices: None Assistive Devices Comment: pt has a walker at home but does not use it Review of Systems Review of Systems: All systems reviewed & are unremarkable except as noted in HPI & below Physical Exam Constitutional: + obese; no acute distress Neck: trachea midline Respiratory: normal respiratory effort, lungs clear to auscultation Cardiovascular: Rate/Rhythm: regular rate and regular rhythm Gastrointestinal (Abdomen): Inspection/Auscultation: normal bowel sounds; abdomen not distended Percussion/Palpation: abdomen soft; abdomen nontender Skin: no rashes, warm and dry Lymphatic: no cervical lymphadenopathy Results & Data ([facility]) Vital Signs (Past 12 Hours) Vital Signs Temp Pulse Pulse Resp BP BP BP 03/31/20 07:38 36.6 C 51 L 18 129/75 03/31/20 01:32 36.4 C L 57 L 16 143/75 H 03/31/20 00:59 60 18 114/56 L 03/30/20 23:00 79 18 117/69 Pulse Ox 03/31/20 07:38 90 03/31/20 01:32 95 03/31/20 00:59 93 03/30/20 23:00 96 Laboratory Results 03/31/20 03/31/20 03/31/20 Range/Units 07:11 07:11 07:11 WBC (4.8-10.8) K/uL RBC (4.7-6.1) M/uL Hgb (14.0-18.0) g/dL Hct (42-52) % MCV (80-100) fL MCH (25-34) pg MCHC (32-36) g/dL RDW Std Deviation (36.4-46.3) fL RDW Coeff of Atif (11.5-14.5) % Plt Count (130-400) K/uL MPV (7.4-10.4) fL Immature Gran % (Auto) % Neut % (Auto) % Lymph % (Auto) % Dare % (Auto) % Eos % (Auto) % Baso % (Auto) % Neut # (Auto) (1.4-6.5) K/uL Lymph # (Auto) (1.2-3.4) K/uL Dare # (Auto) (0.11-0.59) K/uL Eos # (Auto) (0-0.5) K/uL Baso # (Auto) (0-0.2) K/uL Immature Gran # (Auto) (0.00-0.02) K/uL Sodium 138 (136-145) mmol/L Potassium 4.2 (3.5-5.1) mmol/L Chloride 99 (98-107) mmol/L Carbon Dioxide 30 (21-32) mmol/L Anion Gap 9.0 (3-11) BUN 78 H (7-18) mg/dl Creatinine 5.90 H* D (0.6-1.4) mg/dl Est Cr Clr Drug Dosing 16.7 ml/min Est GFR ( Amer) 10.5 Est GFR (Non-Af Amer) 9.1 BUN/Creatinine Ratio 13.4 (10-20) Glucose 119 H (70-99) mg/dl POC Glucose (70-99) mg/dl Estimat Average Glucose 180 mg/dl Hemoglobin A1c 7.9 H (4.5-5.6) % Calcium 8.7 (8.5-10.1) mg/dl Magnesium (1.8-2.4) mg/dl Total Bilirubin 0.7 D (0.2-1) mg/dl AST 9 L (15-37) U/L ALT 15 (12-78) U/L Alkaline Phosphatase 54 (45-117) U/L Troponin I (0-0.045) ng/ml Total Protein 6.9 (6.4-8.2) gm/dl Albumin 3.1 L (3.4-5.0) gm/dl Globulin 3.8 (2.5-4.0) gm/dl Albumin/Globulin Ratio 0.8 L (0.9-2) Lipase (73-393) U/L Urine Color Urine Appearance (Clear) Urine pH (4.5-7.5) Ur Specific [place] (1.000-1.030) Urine Protein (Negative) Urine Glucose (UA) (Negative) Urine Ketones (Negative) Urine Blood (Negative) Urine Nitrite (Negative) Urine Bilirubin (Negative) Urine Urobilinogen (Negative) Ur Leukocyte Esterase (Negative) Urine WBC (Auto) (0-5) /hpf Urine RBC (Auto) (0-4) /hpf U Hyaline Cast (Auto) (0-5) /lpf U Epithel Cells (Auto) (0-5) /lpf Urine Bacteria (Auto) (Negative) COVID-19 Eval Order Hepatitis C Ab Screen Neg (Neg) SARS-CoV-2, RNA, NAAT (NEGATIVE) 03/31/20 03/31/20 03/30/20 Range/Units 07:11 05:41 22:45 WBC 7.06 (4.8-10.8) K/uL RBC 4.03 L (4.7-6.1) M/uL Hgb 12.2 L (14.0-18.0) g/dL Hct 39.2 L (42-52) % MCV 97.3 (80-100) fL MCH 30.3 (25-34) pg MCHC 31.1 L (32-36) g/dL RDW Std Deviation 54.3 H (36.4-46.3) fL RDW Coeff of Atif 15.2 H (11.5-14.5) % Plt Count 173 (130-400) K/uL MPV 10.8 H (7.4-10.4) fL Immature Gran % (Auto) 0.3 % Neut % (Auto) 66.4 % Lymph % (Auto) 21.4 % Dare % (Auto) 6.7 % Eos % (Auto) 4.8 % Baso % (Auto) 0.4 % Neut # (Auto) 4.69 (1.4-6.5) K/uL Lymph # (Auto) 1.51 (1.2-3.4) K/uL Dare # (Auto) 0.47 (0.11-0.59) K/uL Eos # (Auto) 0.34 (0-0.5) K/uL Baso # (Auto) 0.03 (0-0.2) K/uL Immature Gran # (Auto) 0.02 (0.00-0.02) K/uL Sodium (136-145) mmol/L Potassium (3.5-5.1) mmol/L Chloride (98-107) mmol/L Carbon Dioxide (21-32) mmol/L Anion Gap (3-11) BUN (7-18) mg/dl Creatinine (0.6-1.4) mg/dl Est Cr Clr Drug Dosing ml/min Est GFR ( Amer) Est GFR (Non-Af Amer) BUN/Creatinine Ratio (10-20) Glucose (70-99) mg/dl POC Glucose 110 H (70-99) mg/dl Estimat Average Glucose mg/dl Hemoglobin A1c (4.5-5.6) % Calcium (8.5-10.1) mg/dl Magnesium (1.8-2.4) mg/dl Total Bilirubin (0.2-1) mg/dl AST (15-37) U/L ALT (12-78) U/L Alkaline Phosphatase (45-117) U/L Troponin I (0-0.045) ng/ml Total Protein (6.4-8.2) gm/dl Albumin (3.4-5.0) gm/dl Globulin (2.5-4.0) gm/dl Albumin/Globulin Ratio (0.9-2) Lipase (73-393) U/L Urine Color Urine Appearance (Clear) Urine pH (4.5-7.5) Ur Specific [place] (1.000-1.030) Urine Protein (Negative) Urine Glucose (UA) (Negative) Urine Ketones (Negative) Urine Blood (Negative) Urine Nitrite (Negative) Urine Bilirubin (Negative) Urine Urobilinogen (Negative) Ur Leukocyte Esterase (Negative) Urine WBC (Auto) (0-5) /hpf Urine RBC (Auto) (0-4) /hpf U Hyaline Cast (Auto) (0-5) /lpf U Epithel Cells (Auto) (0-5) /lpf Urine Bacteria (Auto) (Negative) COVID-19 Eval Order Hepatitis C Ab Screen (Neg) SARS-CoV-2, RNA, NAAT NEGATIVE (NEGATIVE) 03/30/20 03/30/20 03/30/20 Range/Units 22:45 19:31 19:31 WBC (4.8-10.8) K/uL RBC (4.7-6.1) M/uL Hgb (14.0-18.0) g/dL Hct (42-52) % MCV (80-100) fL MCH (25-34) pg MCHC (32-36) g/dL RDW Std Deviation (36.4-46.3) fL RDW Coeff of Atif (11.5-14.5) % Plt Count (130-400) K/uL MPV (7.4-10.4) fL Immature Gran % (Auto) % Neut % (Auto) % Lymph % (Auto) % Dare % (Auto) % Eos % (Auto) % Baso % (Auto) % Neut # (Auto) (1.4-6.5) K/uL Lymph # (Auto) (1.2-3.4) K/uL Dare # (Auto) (0.11-0.59) K/uL Eos # (Auto) (0-0.5) K/uL Baso # (Auto) (0-0.2) K/uL Immature Gran # (Auto) (0.00-0.02) K/uL Sodium 139 (136-145) mmol/L Potassium 3.8 (3.5-5.1) mmol/L Chloride 98 (98-107) mmol/L Carbon Dioxide 32 (21-32) mmol/L Anion Gap 9.0 (3-11) BUN 74 H (7-18) mg/dl Creatinine 5.39 H* (0.6-1.4) mg/dl Est Cr Clr Drug Dosing 18.2 ml/min Est GFR ( Amer) 11.7 Est GFR (Non-Af Amer) 10.1 BUN/Creatinine Ratio 13.9 (10-20) Glucose 112 H (70-99) mg/dl POC Glucose (70-99) mg/dl Estimat Average Glucose mg/dl Hemoglobin A1c (4.5-5.6) % Calcium 8.7 (8.5-10.1) mg/dl Magnesium 2.7 H (1.8-2.4) mg/dl Total Bilirubin 0.2 (0.2-1) mg/dl AST 13 L (15-37) U/L ALT 20 (12-78) U/L Alkaline Phosphatase 65 (45-117) U/L Troponin I < 0.015 (0-0.045) ng/ml Total Protein 7.3 (6.4-8.2) gm/dl Albumin 3.2 L (3.4-5.0) gm/dl Globulin 4.1 H (2.5-4.0) gm/dl Albumin/Globulin Ratio 0.8 L (0.9-2) Lipase 292 (73-393) U/L Urine Color Yellow Urine Appearance Clear (Clear) Urine pH 8.0 H (4.5-7.5) Ur Specific [place] 1.013 (1.000-1.030) Urine Protein Negative (Negative) Urine Glucose (UA) Negative (Negative) Urine Ketones Negative (Negative) Urine Blood Negative (Negative) Urine Nitrite Negative (Negative) Urine Bilirubin Negative (Negative) Urine Urobilinogen Negative (Negative) Ur Leukocyte Esterase Negative (Negative) Urine WBC (Auto) 0 (0-5) /hpf Urine RBC (Auto) 0-4 (0-4) /hpf U Hyaline Cast (Auto) 0 (0-5) /lpf U Epithel Cells (Auto) 0-5 (0-5) /lpf Urine Bacteria (Auto) Negative (Negative) COVID[facility]19 [facility] Screen (Neg) SARS-CoV-2, RNA, NAAT (NEGATIVE) 03/30/20 Range/Units 19:31 WBC 11.36 H (4.8-10.8) K/uL RBC 3.98 L (4.7-6.1) M/uL Hgb 12.3 L (14.0-18.0) g/dL Hct 38.2 L (42-52) % MCV 96.0 (80-100) fL MCH 30.9 (25-34) pg MCHC 32.2 (32-36) g/dL RDW Std Deviation 51.4 H (36.4-46.3) fL RDW Coeff of Atif 14.8 H (11.5-14.5) % Plt Count 177 (130-400) K/uL MPV 11.1 H (7.4-10.4) fL Immature Gran % (Auto) 0.2 % Neut % (Auto) 72.3 % Lymph % (Auto) 16.5 % Dare % (Auto) 7.7 % Eos % (Auto) 3.1 % Baso % (Auto) 0.2 % Neut # (Auto) 8.21 H (1.4-6.5) K/uL Lymph # (Auto) 1.88 (1.2-3.4) K/uL Dare # (Auto) 0.88 H (0.11-0.59) K/uL Eos # (Auto) 0.35 (0-0.5) K/uL Baso # (Auto) 0.02 (0-0.2) K/uL Immature Gran # (Auto) 0.02 (0.00-0.02) K/uL Sodium (136-145) mmol/L Potassium (3.5-5.1) mmol/L Chloride (98-107) mmol/L Carbon Dioxide (21-32) mmol/L Anion Gap (3-11) BUN (7-18) mg/dl Creatinine (0.6-1.4) mg/dl Est Cr Clr Drug Dosing ml/min Est GFR ( Amer) Est GFR (Non-Af Amer) BUN/Creatinine Ratio (10-20) Glucose (70-99) mg/dl POC Glucose (70-99) mg/dl Estimat Average Glucose mg/dl Hemoglobin A1c (4.5-5.6) % Calcium (8.5-10.1) mg/dl Magnesium (1.8-2.4) mg/dl Total Bilirubin (0.2-1) mg/dl AST (15-37) U/L ALT (12-78) U/L Alkaline Phosphatase (45-117) U/L Troponin I (0-0.045) ng/ml Total Protein (6.4-8.2) gm/dl Albumin (3.4-5.0) gm/dl Globulin (2.5-4.0) gm/dl Albumin/Globulin Ratio (0.9-2) Lipase (73-393) U/L Urine Color Urine Appearance (Clear) Urine pH (4.5-7.5) Ur Specific [place] (1.000-1.030) Urine Protein (Negative) Urine Glucose (UA) (Negative) Urine Ketones (Negative) Urine Blood (Negative) Urine Nitrite (Negative) Urine Bilirubin (Negative) Urine Urobilinogen (Negative) Ur Leukocyte Esterase (Negative) Urine WBC (Auto) (0-5) /hpf Urine RBC (Auto) (0-4) /hpf U Hyaline Cast (Auto) (0-5) /lpf U Epithel Cells (Auto) (0-5) /lpf Urine Bacteria (Auto) (Negative) COVID-19 Eval Order Hepatitis C Ab Screen (Neg) SARS-CoV-2, RNA, NAAT (NEGATIVE) Diagnostic Findings CT OF THE ABDOMEN AND PELVIS WITHOUT CONTRAST CLINICAL HISTORY: Right lower quadrant abdominal pain. Dialysis patient. COMPARISON STUDY: CT of the abdomen and pelvis and abdominal ultrasound March 29, 2019. TECHNIQUE: Axial images of the abdomen and pelvis were obtained without IV contrast. Images were reviewed in the axial, sagittal, and coronal planes. Automated exposure control was utilized for the study. A dose lowering technique was utilized adhering to the principles of ALARA. FINDINGS: Lung bases are unremarkable. No pneumatosis, free air or portal venous gas is present. Evaluation of the abdomen and pelvis is suboptimal on this unenhanced examination. The liver, spleen, adrenal glands and pancreas are unremarkable. A splenule is noted. There is no peripancreatic infiltration. No biliary or pancreatic ductal dilatation is noted. The gallbladder is mildly distended. There is mild pericholecystic infiltration. A water attenuation left renal lesion is suboptimally assessed on this unenhanced exam but favors a cyst. There is no hydronephrosis. Moderate renal cortical thinning is noted. The appendix is normal. Is no evidence for a bowel obstruction. Fat-containing umbilical hernia is noted. Note is made of several locules of gas within the right rectus sheath. In addition, there are several locules of intra-abdominal gas which may be extraperitoneal in location. The etiology for this gas is not clear on this examination. No acute fractures are identified within visualized skeletal structures. There is no abdominal or pelvic lymphadenopathy. IMPRESSION: 1. Distended gallbladder with pericholecystic infiltration. The findings suggest acute cholecystitis. A right upper quadrant ultrasound is recommended. 2. Multiple locules of gas within the right rectus sheath as well as a few intra-abdominal foci of gas within the anterior abdomen which may be extraperitoneal. The etiology for this gas is not clear on this exam although the right rectus sheath gas may be venous. A perforated hollow viscus is considered unlikely but cannot be excluded on this exam and therefore close clinical monitoring is recommended. Findings discussed with Dr. Elliott at time of dictation. 3. Normal appendix. No bowel obstruction. 4. Fat-containing umbilical hernia. US gallbladder CLINICAL HISTORY: [facility] ct abdomen today COMPARISON STUDY: Right upper quadrant ultrasound March 29, 2019. CT of the abdomen and pelvis March 30, 2020. FINDINGS: Hepatic echogenicity is increased. No hepatic lesions are identified. There is no biliary ductal dilatation. The gallbladder is mildly distended. No gallstones are identified. There is trace pericholecystic fluid. Gallbladder wall thickness is at the upper limits of normal. No sonographic Collier sign was elicited. Pancreatic body is normal. Head and tail are obscured. There is no right hydronephrosis. Right renal cortical thinning is noted. IMPRESSION: 1. No gallstones identified. No sonographic Collier sign. Mildly distended gallbladder with trace pericholecystic fluid. These findings do not strongly suggest acute cholecystitis however a hepatobiliary scan could be obtained if indicated. 2. No biliary ductal dilatation. 3. Probable hepatic steatosis. NM hepatobiliary EF CLINICAL HISTORY: r/o cholecystitis COMPARISON STUDY: CT of the abdomen and pelvis and right upper quadrant ultrasound March 30, 2020. TECHNIQUE: 5.9 mCi of technetium 99m Choletec was injected IV at 8:05 AM on March 31, 2020. Immediately following injection, imaging of the abdomen was carried out for 60 minutes. At this time, 2.6 mcg of sincalide was injected IV as per protocol imaging was carried out for an additional 45 minutes. FINDINGS: Hepatic uptake of radiotracer is prompt and homogeneous. Activity is identified within the common bile duct and small bowel at 10 minutes. Gallbladder activity is noted at 15 minutes. Gallbladder ejection fraction is within normal limits at 30%. Normal is greater than 30-35%. IMPRESSION: 1. No evidence for acute or chronic cholecystitis. 2. Normal gallbladder ejection fraction.
[2020-03-31] MEDS: SEVELAMER HCL 800 MG TABLET PO SCH ×3 (10:56→17:04)
[2020-03-31] MEDS: carvediloL 6.25 MG TAB PO SCH ×2 (10:56→20:48)
[2020-03-31] MEDS: FUROSEMIDE 80 MG TAB PO SCH ×2 (10:56→17:04)
[2020-03-31] MEDS: INSULIN GLARGINE SOLOSTAR 100 UNITS/ML 3 ML PEN SC SCH ×2 (11:28→20:52)
[2020-03-31] MEDS: cloNIDine HCL 0.1 MG TAB PO SCH (11:46)
--- NOTE | 2020-03-31 14:35 | Medical Student Progress Note ---
Date of Service March 31, 2020 Assessment & Plan (1) Lower abdominal pain: Pain is still localized to the right lower/middle quadrant with a constant dull pain of 4/10 with no aggravating or relieving factors or any associated symptoms. Additionally, the pt admits the pain has become more manageable than it was yesterday. Differential: 1) Cholecystitis: Pt has no obvious Collier's sign, no elevation of AST/ALT or Alk phos, and Hida scan showed no evidence of gallstones or obstructions in the common bile duct. Gallbladder ultrasound showed evidence of gallbladder distention. 2) Small Bowel Obstruction Pain is described as constant and pt is able to pass gas. Additionally, abdomin al CT showed no evidence of small bowel obstruction. 3) Appendicitis: Pt localizes pain to right lower quadrant but pain is described as dull without evidence of appendicitis on abdominal CT. Considering pt's pain has subsided to a more manageable level, the pt is passing gas, and the pt has an appetite; pt will be given food and monitored for worsening pain. Pt has no signs of infection or systemic symptoms of fever or chills. Zosyn will be stopped. Worsening pain shortly after the meal will warrant reanalysis of possible acalculous cholecystis or small bowel obstruction. Additionally, pt will be monitored for bowel movements as the pt admits to diarrhea prior to arrival despite attributing it to baking soda he had ingested prior. Stool consistency and color will be monitored. Present on Admission?: Yes Admission and Anticipated Discharge Date Admission Date: March 31, 2020 Supervising Attestation Medical Student Supervision Note: I was personally present during medical student patient encounter and independently interviewed and examined the patient and verified the roman history and physical, reviewed labs and image studies, discussed the case with Alli Saenz and agree with the findings and care plan. 69 y/o M with h/o umbilical hernia presented with right upper abdominal pain. Negative work up so far including HIDA scan . will advance diet and monitor overnight. anticipate d/c home in am. CAD, paroxysmal atrial fibrillation, HTN, CKD stage IV, and diabetes - stable. continue home meds. Subjective Pt is a 69 y/o male with a past medical history of CAD, paroxysmal atrial fibrillation, HTN, CKD stage IV, an umbilical hernia, and diabetes who presents with 2 days of right lower quadrant abdominal pain. Pain was a 3/10 upon being arriving to the ED. Pain was described as constant with no radiation. Pt had diarrhea on presentation but the pt thinks it was due to the baking soda he took that day. Pt denied vomiting, fever, chest pain, or shortness of breath upon presentation to the ER. Pt is a dialysis pt and had dialysis on Monday (03/29/20). Pt had a Cr of 5.39 on admission. An ECG was done in the ER which showed a first degree AV block, a heart rate of 67, and no ST elevations or PVCs. Pt had tenderness in the right lower quadrant upon presentation. Pt was given IV Toradol, IV Zofran, Piperacillin/Tazobactam, ketorolac, Tromethamine, Ondansetron. Abdominal CT w/o contrast, chest X-ray, and gallbladder ultrasound ordered. Abdominal CT showed a distended gallbladder with pericholecystic infiltration, multiple locules of gas in the right rectus sheath, a normal appendix, no bowel obstruction, and a fat containing umbilical hernia. Chest x-ray was unremarkable. Gallbladder ultrasound showed a mildy distended gallbaldder with trace pericholecystic fluid which prompted a HIDA scan. HIDA scan found no evidence of gallstones. Today (03/31/20) pt still localizes the pain to the right lower/middle quadrant with a constant dull pain of 4/10. Pt does not worsen with movement or worsens with any associated action. Pt denies any fever or systemic symptoms associated with the pain. Pt says the pain has become more manageable than from when he presented yesterday. Pt has yet to have a bowel movement upon his arrival to the hospital but says he has been passing gas recently. Pt has an appetite and would like to get some food. Pt denies any pain or changes in size or appearance of umbilical hernia. Pt received dialysis today. Review of Systems Constitutional: + increased appetite; no fever and no chills Gastrointestinal: Abdominal pain rated constant 4/10 per HPI Integumentary: Pt denies any new onset pruritus or worsening yellowing of skin. Pt denies any new swelling or erythema at site of umbilical hernia. Physical Exam Constitutional: no acute distress Gastrointestinal (Abdomen): Inspection/Auscultation: normal bowel sounds and + visible herniation Percussion/Palpation: abdomen soft; no guarding Minimal pain on palpation to RLQ. Collier's sign was tested which resulted in some mild discomfort at first. Second time pt stated he felt mostly pressure. No hepatosplenomegaly. Umbilical hernia was evident but showed no signs of strangulation and was soft on palpation. No rebound tenderness. Skin: No erythema at site of umbilical hernia. Diffuse mild/moderate jaundice. Results & Data ([facility]) Vital Signs (Past 12 Hours) Vital Signs Temp Pulse Pulse Pulse Resp BP BP 03/31/20 13:40 60 136/72 03/31/20 13:20 59 L 140/78 03/31/20 13:00 59 L 153/75 H 03/31/20 12:40 56 L 140/68 03/31/20 12:20 53 L 120/68 03/31/20 12:00 54 L 128/69 03/31/20 11:45 54 L 145/72 H 03/31/20 11:34 36.5 C 54 L 03/31/20 07:38 36.6 C 51 L 18 129/75 Pulse Ox 03/31/20 13:40 03/31/20 13:20 03/31/20 13:00 03/31/20 12:40 03/31/20 12:20 03/31/20 12:00 03/31/20 11:45 03/31/20 11:34 03/31/20 07:38 90
--- NOTE | 2020-03-31 16:48 | Electrocardiogram Report ---
Test Reason : Blood Pressure : / mmHG Vent. Rate : 067 BPM Atrial Rate : 067 BPM P-R Int : 222 ms QRS Dur : 118 ms QT Int : 436 ms P-R-T Axes : 049 057 028 degrees QTc Int : 460 ms Sinus rhythm with 1st degree A-V block Non-specific intra-ventricular conduction delay Borderline ECG When compared with ECG of 01-FEB-2020 07:40, Previous ECG has undetermined rhythm, needs review Confirmed by Chuck Ch ([id number]) on 03/31/2020 4:47:59 PM Referred By: REFERRED SELF Confirmed By:Chuck Ch
[2020-03-31] MEDS ORDERED: Nursing to Pharmacy Communication SCH (17:15)
[2020-03-31] MEDS ORDERED: NEPHROCAPS PO SCH (21:00)
[2020-03-31] MEDS ORDERED: cloNIDine HCL 0.1 MG TAB PO SCH (21:00)
[2020-04-01 08:10] LABS: Basophils # (auto) 0.02 K/uL (0-0.2); Basophils % (auto) 0.2 %; Eosinophils # (auto) 0.31 K/uL (0-0.5); Eosinophils % (auto) 3.6 %; Hematocrit (blood only) 42.7 % (42-52); Hemoglobin 13.5 g/dL (14.0-18.0); Immature Granulocytes # (auto) 0.01 K/uL (0.00-0.02); Immature Granulocytes % (auto) 0.1 %; Lymphocytes # (auto) 1.27 K/uL (1.2-3.4); Lymphocytes % (auto) 14.8 %; Mean Corpuscular Hemoglobin 30.9 pg (25-34); Mean Corpuscular Hgb Conc 31.6 g/dL (32-36); Mean Corpuscular Volume 97.7 fL (80-100); Mean Platelet Volume 11.1 fL (7.4-10.4); Monocytes # (auto) 0.83 K/uL (0.11-0.59); Monocytes % (auto) 9.6 %; Neutrophils # (auto) 6.17 K/uL (1.4-6.5); Neutrophils % (auto) 71.7 %; Platelet Count 200 K/uL (130-400); RDW Standard Deviation 53.5 fL (36.4-46.3); Red Blood Count 4.37 M/uL (4.7-6.1); White Blood Count 8.61 K/uL (4.8-10.8)
--- NOTE | 2020-04-01 08:21 | Discharge Summary ---
Date of Service April 01, 2020 Admission HPI Per Admitting Provider Pt is a 69yo gentleman with a PMHx significant for CHF, CAD, DMII, CKD on dialysis, BPH and depression who was admitted with acute cholecystitis and suspected perforation. States he started having RLQ abdominal pain 2 days ago and thought it was related to his known hernia. Took some baking soda which he believes gave him diarrhea. Pain was 3-5 when it started, and nonradiating. No associated N/V or bloody stools. Believes his assocaited diarrhea could also be due to some stromboli he had with mozarella cheese. He is a past smoker of ciagrs and pipes, states he quit about a year ago. Drinks beer and wine every week and lives by himself in [place]. He is retired and desires to be a full code, joking that he has two cats at home to take care of. Admission Exam Per Admitting Provider General: Alert, oriented. No acute distress sitting at the side of the bed Skin: No noted rashes or bruises Psych: Appropriate mood and affect Neuro: No gross deficits HEENT: NC/AT Chest: Nontender to palpation. CV: RRR, Normal s1, s2. No murmurs appreciated Resp: Breath sounds clear bilaterally but decreased, no increased effort of delio athing. Abdomen: Soft, tender in RLQ and RUQ, protuberant. No guarding. Extremities: ++ edema in lower extremities bilaterally. Principal Diagnosis Lower abdominal pain Discharge Exam Constitutional WD/WN, vitals as above no acute distress Respiratory normal respiratory effort, lungs clear to auscultation Cardiovascular RRR, no murmur, no edema Heart Sounds: normal S1 and normal S2 Gastrointestinal (Abdomen) Inspection/Auscultation: normal bowel sounds; abdomen not distended Percussion/Palpation: + abdomen tender (mild at RLQ) and + hernia (umbilical) Skin no rashes, warm and dry Psychiatric A+Ox3, euthymic affect Discharge Data Allergies Allergy/AdvReac Type Severity Reaction Status Date / Time ragweed pollen Allergy Mild [place] Verified 02/25/20 14:16 [place] Complexes Allergy Unknown rash from Verified 02/25/20 14:17 metal Consultations 03/30/20 21:47 ED Decision to Admit Stat 03/31/20 01:44 Consult General Surgery Routine 03/31/20 01:59 Consult Nephrology Routine Ordered Studies 03/30/20 19:03 CT abd pelvis wo con Stat 03/30/20 19:34 US gallbladder Stat Hospital Course (1) Lower abdominal pain: 69yo gentleman with a PMHx signifcant for CHF, CAD, DMII, CKD on dialysis, BPH and depression who was admitted with acute cholecystitis and suspected perforation. Right upper quadrant pain -Pt with RLQ abdominal pain of 2 days duration -afebrile, nontachycardic, nontachypneic, [id number] -CT abd/pelvis with mildly distended gallbladder, trace pericholecystic fluid, possible perforation of hollow viscus - Gallbladder US: 1. No gallstones identified. No sonographic Collier sign. Mildly distended gallbladder with trace pericholecystic fluid. These findings do not strongly suggest acute cholecystitis however a hepatobiliary scan could be obtained if indicated. 2. No biliary ductal dilatation. 3. Probable hepatic steatosis. -HIDA scan: 1. No evidence for acute or chronic cholecystitis. 2. Normal gallbladder ejection fraction. - General surgery consulted--No concern of acute abdomen - Zosyn started in ED--stopped when negative workup - Advanced diet after imaging, patient tolerated well - Pain likely from abdominal cramp/bloating. CAD w stents/A fib -continued home carvedilol 6.25mg BID -held home plavix, aspirin - resumed on discharge DMII -hgba1c of 7.0 in Dec 2019, repeat pending with AM labs -continued home Lantus 50U BID -ISS with pharm consult CKD on dialysis -Cr 5.39 on admission -states he had dialysis day prior to admission -consulted nephrology--received dialysis while in hospital -continued home prorenal tabs and renvela 800mg tid CHF -continued home Lasix 80mg BID HTN -continued home coreg as above -Amlodipine 5mg, clonidine HLD -Atorvastatin 40mg Depression - sertraline and prn klonopine BPH -Tamsulosin FEN/GI: heart healthy, carb consistent CODE STATUS: Full code Dispo: Home (2) End-stage renal disease on hemodialysis: (3) CKD (chronic kidney disease), stage V: (4) (HFpEF) heart failure with preserved ejection fraction: (5) BPH (benign prostatic hyperplasia): (6) Depression: (7) CAD (coronary artery disease): (8) Hypoxia: (9) Diabetes mellitus type 2 in obese: (10) Sleep apnea: (11) HTN (hypertension): Total Time Total Time Spent Total Time Spent (In Minutes): see Attending attestation Discharge Plan Discharge Items Patient Disposition: Home - Self-Care Reason For Visit: ACUTE CHOLECYSTITIS Discharge Diagnosis: Lower abdominal pain Condition on Discharge: Good Activity: Per Instructions section Non-emergency contact: Primary Care Provider Call non-emergency contact if: your symptoms worsen and your pain is not controlled Follow-up/Referrals: Shiv Gallardo MD [Primary Care Provider] - 04/14/20 11:30 am ([facility] DOENS'T HAVE ANY SOONER APPTS FOR PATIENT TO FOLLOW UP.) Diet: Carb Consistent or DM2 and Heart Healthy Addtl Attending Provider Instructions: You came to [facility] with complaints of lower abdominal pain. You were evaluated for various possibilities including cholecystitis, small bowel obstruction, and appendicitis. Your imaging was negative for these as the cause of your abdominal pain. During your admission you progressed well and were able to tolerate oral diet. Since you did feel better and you were evaluated for acute causes of your pain, you are considered stable for discharge. Please follow up with your primary care provider if you have any further concerns. If you develop worsening abdominal pain or new symptoms, please seek emergency care. Pending Studies at Discharge: No Stand-Alone Forms: My [facility] [place], Smoking Cessation Medications and DC Order Prescriptions: Continued furosemide [Lasix] 40 mg Tablet 80 mg PO BID RF: 0 insulin aspart U-100 [Novolog PenFill U-100 Insulin] 100 unit/mL Cartridge 10 unit SUBCUT AC RF: 0 tamsulosin 0.4 mg Capsule 0.4 mg PO QAM RF: 0 albuterol sulfate 90 mcg/actuation Hfa Aerosol Inhaler 2 puff INHALATION Q6H PRN (Reason: Shortness Of Breath) RF: 0 sertraline 50 mg Tablet 50 mg PO QAM PRN (Reason: Anxiety) RF: 0 loratadine 10 mg Tablet 10 mg PO DAILY PRN (Reason: Allergy Symptoms) RF: 0 clonidine HCl 0.1 mg tablet 0.1 mg PO DIRECTED RF: 0 amlodipine 10 mg tablet 5 mg PO QAM RF: 0 clopidogrel [Plavix] 75 mg Tablet 75 mg PO DAILY RF: 0 aspirin [Aspir-81] 81 mg Tablet,Delayed Release (Dr/Ec) 81 mg PO DAILY RF: 0 Lantus Solostar U-100 Insulin 100 unit/mL (3 mL) insulin pen 50 unit SUBCUT BID RF: 0 sevelamer carbonate [Renvela] 800 mg tablet 800 mg PO TIDM RF: 0 ProRenal 8 mg iron-800 mcg-1,000 unit tablet 1 tab PO QPM RF: 0 nitroglycerin [Nitrostat] 0.4 mg Tablet, Sublingual 0.4 mg sublingual UD PRN (Reason: chest pain) Qty: 20 RF: 0 atorvastatin 40 mg Tablet 40 mg PO PM Qty: 30 RF: 5 Unknown Med @ Dialysis 1 tab PO 3XWK RF: 0 carvedilol [Coreg] 6.25 mg tablet 6.25 mg PO BID RF: 0 Discharge Orders: Discharge Order (Routine); Ordered 04/01/20 Ordered By: Ector Burgos/Other Patient Handouts: Managing Type 2 Diabetes Admission Data Admit Date/Time: 03/31/20 00:18 Attending Provider: Magali Shields Admit Provider: Ina Umaña Primary Care Provider: Shiv Gallardo Other Providers: Luisa Benitez ; Eliceo Rojas ; Park Raza Other Interventions: Discharge Summary Assessment (RN) Last Done: 04/01/20 13:31 Supervising Physician Co-Signing Physician Notes Resident Physician Supervision Note: I independently interviewed and examined the patient and verified the roman history and physical, reviewed labs and image studies, discussed the case with the resident Dr. Delgadillo and agree with the findings and care plan. Resident Activity Tracking Resident Involvement: Resident Care Provided Care Provided: Adult Hospital Medicine
[2020-04-01 08:45] LABS: Albumin Globulin Ratio 0.8 (0.9-2); Albumin Level 3.6 gm/dl (3.4-5.0); BUN Creatinine Ratio 9.2 (10-20); Bilirubin,Total 0.4 mg/dl (0.2-1); Calcium 9.5 mg/dl (8.5-10.1); Creatinine Clr Calc Pharmacy 18.1 ml/min; Est GFR (African American) 11.7; Est GFR (Non-African American) 10.1; Globulin 4.6 gm/dl (2.5-4.0); Potassium 4.7 mmol/L (3.5-5.1); Total Protein 8.2 gm/dl (6.4-8.2)
[2020-04-01] MEDS: cloNIDine HCL 0.1 MG TAB PO SCH (09:12)
[2020-04-01] MEDS: carvediloL 6.25 MG TAB PO SCH (09:12)
[2020-04-01] MEDS: SEVELAMER HCL 800 MG TABLET PO SCH ×2 (09:13→13:20)
[2020-04-01] MEDS: FUROSEMIDE 80 MG TAB PO SCH (09:13)
[2020-04-01] MEDS: INSULIN ASPART 100 UNITS/ML 3 ML PEN SC SCH ×2 (09:14→13:22)
[2020-04-01] MEDS: INSULIN GLARGINE SOLOSTAR 100 UNITS/ML 3 ML PEN SC SCH (09:14)
--- NOTE | 2020-04-01 09:57 | Surgery Progress Note ---
Date of Service April 01, 2020 Assessment & Plan (1) Lower abdominal pain: Abdominal pain resolved No evidence of cholecystitis Tolerating diet No indication for surgical intervention at this time. No peritonitis We will sign off now. Please let me know if there is anything else we can do to be of service Admission and Anticipated Discharge Date Admission Date: March 31, 2020 Subjective Feels much better today Denies abdominal pain Tolerating diet No nausea or vomiting Has passed gas but no bowel movement as yet Physical Exam Gastrointestinal (Abdomen): Inspection/Auscultation: normal bowel sounds; abdomen not distended Percussion/Palpation: abdomen soft; abdomen nontender Results & Data ([facility]) Vital Signs (Past 12 Hours) Vital Signs Temp Pulse Pulse Resp BP Pulse Ox 04/01/20 07:24 36.5 C 60 16 156/80 H 96 03/31/20 23:12 36.7 C 59 L 16 128/75 93 03/31/20 23:07 36.9 C 62 20 124/72 92 Laboratory Results 04/01/20 04/01/20 04/01/20 Range/Units 08:08 07:48 07:48 WBC 8.61 (4.8-10.8) K/uL RBC 4.37 L (4.7-6.1) M/uL Hgb 13.5 L (14.0-18.0) g/dL Hct 42.7 (42-52) % MCV 97.7 (80-100) fL MCH 30.9 (25-34) pg MCHC 31.6 L (32-36) g/dL RDW Std Deviation 53.5 H (36.4-46.3) fL RDW Coeff of Atif 15.0 H (11.5-14.5) % Plt Count 200 (130-400) K/uL MPV 11.1 H (7.4-10.4) fL Immature Gran % (Auto) 0.1 % Neut % (Auto) 71.7 % Lymph % (Auto) 14.8 % [place] % (Auto) 9.6 % Eos % (Auto) 3.6 % Baso % (Auto) 0.2 % Neut # (Auto) 6.17 (1.4-6.5) K/uL Lymph # (Auto) 1.27 (1.2-3.4) K/uL [place] # (Auto) 0.83 H (0.11-0.59) K/uL Eos # (Auto) 0.31 (0-0.5) K/uL Baso # (Auto) 0.02 (0-0.2) K/uL Immature Gran # (Auto) 0.01 (0.00-0.02) K/uL Sodium 136 (136-145) mmol/L Potassium 4.7 (3.5-5.1) mmol/L Chloride 96 L (98-107) mmol/L Carbon Dioxide 32 (21-32) mmol/L Anion Gap 8.0 (3-11) BUN 50 H (7-18) mg/dl Creatinine 5.39 H* D (0.6-1.4) mg/dl Est Cr Clr Drug Dosing 18.1 ml/min Est GFR ( Amer) 11.7 Est GFR (Non-Af Amer) 10.1 BUN/Creatinine Ratio 9.2 L (10-20) Glucose 117 H (70-99) mg/dl POC Glucose 117 H (70-99) mg/dl Calcium 9.5 (8.5-10.1) mg/dl Total Bilirubin 0.4 (0.2-1) mg/dl AST 15 (15-37) U/L ALT 19 (12-78) U/L Alkaline Phosphatase 58 (45-117) U/L Total Protein 8.2 (6.4-8.2) gm/dl Albumin 3.6 (3.4-5.0) gm/dl Globulin 4.6 H (2.5-4.0) gm/dl Albumin/Globulin Ratio 0.8 L (0.9-2) 03/31/20 03/31/20 Range/Units 20:38 16:38 WBC (4.8-10.8) K/uL RBC (4.7-6.1) M/uL Hgb (14.0-18.0) g/dL Hct (42-52) % MCV (80-100) fL MCH (25-34) pg MCHC (32-36) g/dL RDW Std Deviation (36.4-46.3) fL RDW Coeff of Atif (11.5-14.5) % Plt Count (130-400) K/uL MPV (7.4-10.4) fL Immature Gran % (Auto) % Neut % (Auto) % Lymph % (Auto) % [place] % (Auto) % Eos % (Auto) % Baso % (Auto) % Neut # (Auto) (1.4-6.5) K/uL Lymph # (Auto) (1.2-3.4) K/uL [place] # (Auto) (0.11-0.59) K/uL Eos # (Auto) (0-0.5) K/uL Baso # (Auto) (0-0.2) K/uL Immature Gran # (Auto) (0.00-0.02) K/uL Sodium (136-145) mmol/L Potassium (3.5-5.1) mmol/L Chloride (98-107) mmol/L Carbon Dioxide (21-32) mmol/L Anion Gap (3-11) BUN (7-18) mg/dl Creatinine (0.6-1.4) mg/dl Est Cr Clr Drug Dosing ml/min Est GFR ( Amer) Est GFR (Non-Af Amer) BUN/Creatinine Ratio (10-20) Glucose (70-99) mg/dl POC Glucose 144 H 101 H (70-99) mg/dl Calcium (8.5-10.1) mg/dl Total Bilirubin (0.2-1) mg/dl AST (15-37) U/L ALT (12-78) U/L Alkaline Phosphatase (45-117) U/L Total Protein (6.4-8.2) gm/dl Albumin (3.4-5.0) gm/dl Globulin (2.5-4.0) gm/dl Albumin/Globulin Ratio (0.9-2)
--- NOTE | 2020-04-01 12:10 | Nephrology Progress Note ---
Date of Service April 01, 2020 Assessment & Plan (1) End-stage renal disease on hemodialysis: ESRD on HD TTS at [facility]. Admitted with abdominal pain, gallbladder ultrasound and HIDA scan negative for gallstone, acute/ chronic cholecystitis. Pain improve significantly in clinically otherwise asymptomatic stable. Overall clinically seems to be doing well and stable. Abdominal pain mostly resolved. Volume status acceptable. -- Plan for 4.5 hours dialysis tomorrow, can be done at the outpatient dialysis facility if discharged later today -- continue on Nephrocaps and Renvela with meals -- rt arm precaution ( AVF) Will follow while inpatient (2) Lower abdominal pain: (3) Anemia: (4) HTN (hypertension): (5) Secondary hyperparathyroidism of renal origin: Admission and Anticipated Discharge Date Admission Date: March 31, 2020 La Ortiz was seen examined in his room this morning. Overall he is feeling much better. Still has mild abdominal pain but not bother some and much better since admission. Has been tolerating regular food although no bowel movement yet. had dialysis yesterday, uneventful. Currently volume status, blood pressure, electrolyte acceptable. Review of Systems Review of Systems: All systems reviewed & are unremarkable except as noted in Subjective Physical Exam Constitutional: WD/WN, vitals as above no acute distress Respiratory: normal respiratory effort, lungs clear to auscultation Cardiovascular: RRR, no murmur, no edema Extremities: + AV fistula Skin: no rashes, warm and dry Neurologic: no focal motor deficits and not confused Psychiatric: A+Ox3, euthymic affect Results & Data ([facility]) Vital Signs (Past 12 Hours) Vital Signs Temp Pulse Resp BP Pulse Ox 04/01/20 07:24 36.5 C 60 16 156/80 H 96 PG Care Time/CCT Total # of Minutes Spent Total Time Spent with Patient: Total time spent is greater than 50% in coordination of care (as documented) at patient's floor/unit and/or counseling patient: Coding Level of Care Code 87965 Subseq Hosp Care Lvl 2 Diagnoses End-stage renal disease on hemodialysis N18.6; Z99.2 Lower abdominal pain R10.30 Anemia D64.9 Anemia type: unspecified type HTN (hypertension) I10 Hypertension type: essential hypertension Secondary hyperparathyroidism of renal origin N25.81 (1) Anemia Anemia type: unspecified type Qualified Code(s): D64.9 - Anemia, unspecified (2) HTN (hypertension) Hypertension type: essential hypertension Qualified Code(s): I10 - Essential (primary) hypertension
== END 2020-04-01 14:37 | disposition home or self-care (01) | DRG 391 ==
LOC: ED 18:43 → 3W 03-31 00:18 → SUATTDRO 03-31 00:18 → INTOOBSV 03-31 00:18 → OBSVTOIN 03-31 00:18 → 3W 03-31 00:59

== ENCOUNTER 2020-05-16 19:16 | Inpatient (IN) ==
--- NOTE | 2020-05-16 19:35 | Emergency Department Note ---
History of Present Illness General Chief complaint: Shortness of Breath/Dyspnea Stated complaint: BREATHING DIFFICULTIES Time Seen by Provider: 05/16/20 19:23 History of Present Illness Provider complaint: Shortness of breath Onset (ago): day(s) 1 Location: chest Maximum Pain Intensity: 7 Current Pain Intensity: 5 Quality: + aching Associated symptoms: + chest pain and + shortness of breath; no cough, no fever/chills, no headaches and no nausea/vomiting 65-year-old male ESRD on HD Monday, , Monday presents emergency department for shortness of breath. Patient reports that shortness of breath began earlier today when he was taking out some groceries. He denies any fevers. He also reports a mild chest pressure that is aching over the center of his chest. No radiation of the pain. Pain is moderate in nature. Reports no cough. No fevers. No loss of taste or smell. No abdominal pain, nausea, vomiting or diarrhea. Patient does state that he did not get dialysis today due to the 's holiday and is scheduled to get dialysis tomorrow. Home Medications Medication Instructions Recorded Confirmed Type albuterol sulfate 2 puff INHALATION Q6H PRN 01/06/19 05/16/20 History furosemide [Lasix] 80 mg PO BID 01/06/19 05/16/20 History insulin aspart U-100 [Novolog 10 unit SUBCUT AC 01/06/19 05/16/20 History PenFill U-100 Insulin] loratadine 10 mg PO DAILY PRN 01/06/19 05/16/20 History sertraline 50 mg PO QAM PRN 01/06/19 05/16/20 History tamsulosin 0.4 mg PO QAM 01/06/19 05/16/20 History Lantus Solostar U-100 Insulin 50 unit SUBCUT BID 03/06/19 05/16/20 History aspirin [Aspir-81] 81 mg PO DAILY 03/06/19 05/16/20 History clopidogrel [Plavix] 75 mg PO DAILY 03/06/19 05/16/20 History ProRenal 1 tab PO QPM 09/26/19 05/16/20 History sevelamer carbonate [Renvela] 800 mg PO TIDM 09/26/19 05/16/20 History amlodipine 10 mg tablet 5 mg PO QAM tab 12/18/19 05/16/20 History clonidine HCl 0.1 mg tablet 0.1 mg PO DIRECTED 12/18/19 05/16/20 History atorvastatin 40 mg PO PM #30 tab 12/27/19 05/16/20 Rx nitroglycerin [Nitrostat] 0.4 mg SUBLINGUAL UD PRN #20 tab 12/27/19 05/16/20 Rx carvedilol [Coreg] 6.25 mg PO BID 03/30/20 05/16/20 History cholecalciferol (vitamin D3) 0 mcg PO MOWEFR 05/16/20 05/16/20 History [Vitamin D3] Allergies Allergy/AdvReac Type Severity Reaction Status Date / Time ragweed pollen Allergy Mild [place] Verified 05/16/20 20:03 [place] Complexes Allergy Unknown rash from Verified 05/16/20 20:03 metal Past Med/Surg History Medical History Abnormal abdominal CT scan Anemia CAD (coronary artery disease) s/p stent 2018 CHF exacerbation Chronic kidney disease, stage 4 (severe) CKD (chronic kidney disease) Stage 4 Diabetes Dyslipidemia Elevated troponin Elevated troponin HTN (hypertension) Hypoxia Leukocytosis Lower abdominal pain Orthostatic dizziness Paroxysmal atrial fibrillation Secondary hyperparathyroidism of renal origin Sinus node dysfunction Sleep apnea does not use CPAP Surgical History AV fistula History of loop recorder Implanted 05/01/2019 Family History Other Hypertension Social History Smoking Status: Former smoker Tobacco Type: Cigarettes Cigarettes Per Day: 10; Second Hand Exposure: No; Hx Alcohol Use: Yes Alcohol type: beer and wine Hx Substance Use: No Preferred Language: Citizen Of [place] Communication Ability: Effective Purchasing Director Required: No Beliefs That Will Affect Care: None marital status: Current Living Situation: Alone How many Children do You have: 0 Feels Safe at Home: Yes Assistive Devices: None Review of Systems A total of 10 systems reviewed and were otherwise negative Physical Exam Vital Signs Vital Signs - 24 hr 05/16/20 19:21 05/16/20 19:22 05/16/20 19:28 Temperature 36.9 C Temperature Source Oral Pulse Rate 80 81 88 Pulse Rate from SpO2 Sensor 81 83 Respiratory Rate 15 22 13 Respiratory Effort / Characteristics Non-Labored Respiratory Depth Normal Blood Pressure 186/85 H 186/85 H Blood Pressure Mean 125 118 Pulse Oximetry 91 91 91 Oxygen Delivery Method Room Air Oxygen Flow Rate Sepsis New/Unexplained Change in Mental Status N/A Sepsis Action Taken by Nursing No Action Required 05/16/20 19:30 05/16/20 19:31 05/16/20 19:40 Temperature Temperature Source Pulse Rate 82 Pulse Rate from SpO2 Sensor 83 82 81 Respiratory Rate Respiratory Effort / Characteristics Respiratory Depth Blood Pressure 186/88 H Blood Pressure Mean 134 Pulse Oximetry 90 91 89 L Oxygen Delivery Method Oxygen Flow Rate Sepsis New/Unexplained Change in Mental Status Sepsis Action Taken by Nursing 05/16/20 19:50 05/16/20 19:56 05/16/20 19:59 Temperature Temperature Source Pulse Rate 77 Pulse Rate from SpO2 Sensor 78 Respiratory Rate 10 L Respiratory Effort / Characteristics Respiratory Depth Blood Pressure Blood Pressure Mean Pulse Oximetry 94 88 L Oxygen Delivery Method Room Air Nasal Cannula Oxygen Flow Rate 2 Sepsis New/Unexplained Change in Mental Status Sepsis Action Taken by Nursing 05/16/20 20:04 05/16/20 20:30 05/16/20 21:00 Temperature Temperature Source Pulse Rate 104 H 77 72 Pulse Rate from SpO2 Sensor 79 Respiratory Rate 20 20 Respiratory Effort / Characteristics Respiratory Depth Blood Pressure 153/75 H 151/72 H Blood Pressure Mean 95 112 Pulse Oximetry 95 95 96 Oxygen Delivery Method Nasal Cannula Oxygen Flow Rate 2 Sepsis New/Unexplained Change in Mental Status Sepsis Action Taken by Nursing 05/16/20 21:30 05/16/20 22:00 05/16/20 22:30 Temperature Temperature Source Pulse Rate 66 68 65 Pulse Rate from SpO2 Sensor Respiratory Rate 24 22 18 Respiratory Effort / Characteristics Respiratory Depth Blood Pressure 136/70 137/69 142/69 H Blood Pressure Mean 101 96 109 Pulse Oximetry 95 95 97 Oxygen Delivery Method Oxygen Flow Rate Sepsis New/Unexplained Change in Mental Status Sepsis Action Taken by Nursing 05/16/20 23:00 05/16/20 23:30 Temperature Temperature Source Pulse Rate 63 62 Pulse Rate from SpO2 Sensor 62 63 Respiratory Rate 15 14 Respiratory Effort / Characteristics Respiratory Depth Blood Pressure 161/73 H 151/87 H Blood Pressure Mean 120 124 Pulse Oximetry 97 96 Oxygen Delivery Method Nasal Cannula Nasal Cannula Oxygen Flow Rate 2 2 Sepsis New/Unexplained Change in Mental Status Sepsis Action Taken by Nursing Physical Exam GENERAL: He is oriented to person, place, and time. He appears well-developed and well-nourished. He does not appear distressed. HENT: Exam performed. - Head: Normocephalic and atraumatic. - Right Ear: External ear normal. No mastoid tenderness. - Left Ear: External ear normal. No mastoid tenderness. - Mouth/Throat: The oropharynx is clear and moist. No trismus in the jaw. No dental abscesses or uvula swelling. No oropharyngeal exudate or tonsillar abscesses. EYES: Conjunctivae and EOM are normal. Pupils are equal, round, and reactive to light. Right eye exhibits no discharge. Left eye exhibits no discharge. No scleral icterus. NECK: Normal range of motion. Neck supple. No JVD present. No spinous process tenderness present. No carotid bruit present. No rigidity. No tracheal deviation and normal range of motion present. No Brudzinski's sign and no Kernig's sign noted. CV: Normal rate, regular rhythm, normal heart sounds and intact distal pulses. There is no peripheral edema. Palpable radial pulses bue. PULM/CHEST: Diminished breath sounds and inspiratory rales. - Chest Wall: He exhibits no tenderness. ABD: The abdomen is soft. Bowel sounds are normal. He has no distension. No mass is present. There is no tenderness. There is no rebound, no guarding, no Collier's sign and no tenderness at McBurney's point. Rovsig negative. MUSC/SKEL: Normal range of motion. There is no peripheral edema, tenderness or deformity. LYMPH: No cervical adenopathy. NEURO: He is alert and oriented to person, place, and time. He has normal strength. No cranial nerve deficit or sensory deficit. Coordination and gait normal. GCS eye subscore is 4. GCS verbal subscore is 5. GCS motor subscore is 6. Cerebellar tests wnl. SKIN: Skin is warm and dry. He is not diaphoretic. PSYCH: He has a normal mood and affect. Behavior is normal. Judgment and thought content normal. Course Course 1922: The patient was evaluated in room C3. A complete history and physical exam was performed. Cardiac monitoring: An order was placed for continuous cardiac monitoring. The monitor shows a rate of 80 with sinus rhythm Patient was seen in full airborne precautions. Patient was seen in N95's, gloves, gowns, face shield by myself and staff. 2115: Patient became hypoxic on room air to 88%. Patient was given supplemental oxygen 2 L via nasal cannula which improved his oxygen saturation. Patient's labs show a creatinine of 7.6 which is expected given he has not had dialysis since . His potassium is within normal limits. Chest x-ray shows cardiomegaly with mild cephalization but no yaa pulmonary edema. Patient's lactic acid is elevated and his procalcitonin is elevated. Urinalysis is within normal limits. Given the elevated lactic acid and procalcitonin, the patient will be treated empiric antibiotics cefepime and vancomycin. I discussed the patient's case with nephrology on-call Dr. Richard and both he and I agree that the patient should be admitted for IV antibiotics given his elevated lactic acid and procalcitonin level. Both Dr. Madsen and I also feel that the patient does not need emergent dialysis at this time as his oxygen saturations improved with nasal cannula 2 L only and his potassium is within normal limits. Patient will have dialysis tomorrow in the hospital though will be arranged by Dr. Madsen. Discussed case with Dr. Emmanuel Bella hospitalist who states she will evaluate the patient for admission. Administered Medications Discontinued Medications Dexamethasone (Dexamethasone Sod Inj 10 Mg/Ml Vial) 6 mg IV NOW ONE Stop: 05/16/20 20:33 Last Admin: 05/16/20 20:52 Dose: 6 mg Documented by: [id number] Cefepime HCl (Maxipime) 2,000 mg in 20 mls @ 5 mls/min IV NOW STA; Protocol Stop: 05/16/20 21:17 Last Admin: 05/16/20 21:33 Dose: 5 mls/min Documented by: [id number] Vancomycin HCl 2,500 mg/ (Sodium Chloride) 550 mls @ 200 mls/hr IV NOW ONE Stop: 05/16/20 23:58 Last Admin: 05/16/20 22:03 Dose: 200 mls/hr Documented by: [id number] Critical Care Time Critical Care Time: Yes Total Critical Care Time: 68 I have personally spent greater than 68 minutes of critical care time in the direct management of this patient. This includes bedside care, interpretation of diagnostic studies, and testing, discussion with consultants, patient, and family members, and other required patient management activities. This 68 minutes is in excess of all separately billable procedures. Medical Decision Making Laboratory Data Result diagrams: 05/16/20 19:53 05/16/20 19:53 Lab Results 05/16/20 05/16/20 05/16/20 Range/Units 19:53 19:53 19:53 WBC 9.71 (4.8-10.8) K/uL RBC 4.19 L (4.7-6.1) M/uL Hgb 13.2 L (14.0-18.0) g/dL Hct 39.6 L (42-52) % MCV 94.5 (80-100) fL MCH 31.5 (25-34) pg MCHC 33.3 (32-36) g/dL RDW Std Deviation 52.1 H (36.4-46.3) fL RDW Coeff of Atif 15.2 H (11.5-14.5) % Plt Count 215 (130-400) K/uL MPV 10.9 H (7.4-10.4) fL Immature Gran % (Auto) 0.2 % Neut % (Auto) 77.8 % Lymph % (Auto) 12.8 % [place] % (Auto) 5.7 % Eos % (Auto) 3.3 % Baso % (Auto) 0.2 % Neut # (Auto) 7.56 H (1.4-6.5) K/uL Lymph # (Auto) 1.24 (1.2-3.4) K/uL [place] # (Auto) 0.55 (0.11-0.59) K/uL Eos # (Auto) 0.32 (0-0.5) K/uL Baso # (Auto) 0.02 (0-0.2) K/uL Immature Gran # (Auto) 0.02 (0.00-0.02) K/uL PT 10.9 (9.0-12.0) Seconds INR 1.0 (0.9-1.1) APTT 28.9 (21.0-31.0) Seconds PTT Ratio 1.0 VBG pH (7.36-7.41) VBG pCO2 (38-50) mmHg VBG pO2 mmHg VBG HCO3 mmol/L VBG O2 Saturation % VBG Base Excess mEq/L Barometric Pressure mm/Hg Sodium 138 (136-145) mmol/L Potassium 4.2 (3.5-5.1) mmol/L Chloride 101 (98-107) mmol/L Carbon Dioxide 25 (21-32) mmol/L Anion Gap 12.0 H (3-11) BUN 90 H (7-18) mg/dl Creatinine 7.60 H* (0.6-1.4) mg/dl Est Cr Clr Drug Dosing 12.7 ml/min Est GFR ( Amer) 7.7 Est GFR (Non-Af Amer) 6.6 BUN/Creatinine Ratio 11.8 (10-20) Glucose 275 H (70-99) mg/dl Lactate (0.4-2.0) mmol/L Calcium 8.5 (8.5-10.1) mg/dl Magnesium 2.6 H (1.8-2.4) mg/dl Total Bilirubin 0.3 (0.2-1) mg/dl AST 15 (15-37) U/L ALT 20 (12-78) U/L Alkaline Phosphatase 63 (45-117) U/L Troponin I 0.030 (0-0.045) ng/ml NT-Pro-B Natriuret Pep 1170 H (0-900) pg/ml Total Protein 7.7 (6.4-8.2) gm/dl Albumin 3.5 (3.4-5.0) gm/dl Globulin 4.2 H (2.5-4.0) gm/dl Albumin/Globulin Ratio 0.8 L (0.9-2) Procalcitonin (0-0.5) ng/ml Urine Color Urine Appearance (Clear) Urine pH (4.5-7.5) Ur Specific [place] (1.000-1.030) Urine Protein (Negative) Urine Glucose (UA) (Negative) Urine Ketones (Negative) Urine Blood (Negative) Urine Nitrite (Negative) Urine Bilirubin (Negative) Urine Urobilinogen (Negative) Ur Leukocyte Esterase (Negative) Urine WBC (Auto) (0-5) /hpf Urine RBC (Auto) (0-4) /hpf U Hyaline Cast (Auto) (0-5) /lpf U Epithel Cells (Auto) (0-5) /lpf Urine Bacteria (Auto) (Negative) COVID-19 Eval Order Influ A Molecular Assay (Negative) Influ B Molecular Assay (Negative) SARS-CoV-2, RNA, NAAT (NEGATIVE) 05/16/20 05/16/20 05/16/20 Range/Units 19:53 19:53 19:53 WBC (4.8-10.8) K/uL RBC (4.7-6.1) M/uL Hgb (14.0-18.0) g/dL Hct (42-52) % MCV (80-100) fL MCH (25-34) pg MCHC (32-36) g/dL RDW Std Deviation (36.4-46.3) fL RDW Coeff of Atif (11.5-14.5) % Plt Count (130-400) K/uL MPV (7.4-10.4) fL Immature Gran % (Auto) % Neut % (Auto) % Lymph % (Auto) % [place] % (Auto) % Eos % (Auto) % Baso % (Auto) % Neut # (Auto) (1.4-6.5) K/uL Lymph # (Auto) (1.2-3.4) K/uL [place] # (Auto) (0.11-0.59) K/uL Eos # (Auto) (0-0.5) K/uL Baso # (Auto) (0-0.2) K/uL Immature Gran # (Auto) (0.00-0.02) K/uL PT (9.0-12.0) Seconds INR (0.9-1.1) APTT (21.0-31.0) Seconds PTT Ratio VBG pH 7.35 L (7.36-7.41) VBG pCO2 50 (38-50) mmHg VBG pO2 41 mmHg VBG HCO3 27 mmol/L VBG O2 Saturation 71.0 % VBG Base Excess 0.8 mEq/L Barometric Pressure 733.2 mm/Hg Sodium (136-145) mmol/L Potassium (3.5-5.1) mmol/L Chloride (98-107) mmol/L Carbon Dioxide (21-32) mmol/L Anion Gap (3-11) BUN (7-18) mg/dl Creatinine (0.6-1.4) mg/dl Est Cr Clr Drug Dosing ml/min Est GFR ( Amer) Est GFR (Non-Af Amer) BUN/Creatinine Ratio (10-20) Glucose (70-99) mg/dl Lactate 2.5 H* (0.4-2.0) mmol/L Calcium (8.5-10.1) mg/dl Magnesium (1.8-2.4) mg/dl Total Bilirubin (0.2-1) mg/dl AST (15-37) U/L ALT (12-78) U/L Alkaline Phosphatase (45-117) U/L Troponin I (0-0.045) ng/ml NT-Pro-B Natriuret Pep (0-900) pg/ml Total Protein (6.4-8.2) gm/dl Albumin (3.4-5.0) gm/dl Globulin (2.5-4.0) gm/dl Albumin/Globulin Ratio (0.9-2) Procalcitonin 0.62 H (0-0.5) ng/ml Urine Color Urine Appearance (Clear) Urine pH (4.5-7.5) Ur Specific [place] (1.000-1.030) Urine Protein (Negative) Urine Glucose (UA) (Negative) Urine Ketones (Negative) Urine Blood (Negative) Urine Nitrite (Negative) Urine Bilirubin (Negative) Urine Urobilinogen (Negative) Ur Leukocyte Esterase (Negative) Urine WBC (Auto) (0-5) /hpf Urine RBC (Auto) (0-4) /hpf U Hyaline Cast (Auto) (0-5) /lpf U Epithel Cells (Auto) (0-5) /lpf Urine Bacteria (Auto) (Negative) COVID-19 Eval Order Influ A Molecular Assay (Negative) Influ B Molecular Assay (Negative) SARS-CoV-2, RNA, NAAT (NEGATIVE) 05/16/20 05/16/20 05/16/20 Range/Units 19:56 19:56 20:00 WBC (4.8-10.8) K/uL RBC (4.7-6.1) M/uL Hgb (14.0-18.0) g/dL Hct (42-52) % MCV (80-100) fL MCH (25-34) pg MCHC (32-36) g/dL RDW Std Deviation (36.4-46.3) fL RDW Coeff of Atif (11.5-14.5) % Plt Count (130-400) K/uL MPV (7.4-10.4) fL Immature Gran % (Auto) % Neut % (Auto) % Lymph % (Auto) % [place] % (Auto) % Eos % (Auto) % Baso % (Auto) % Neut # (Auto) (1.4-6.5) K/uL Lymph # (Auto) (1.2-3.4) K/uL [place] # (Auto) (0.11-0.59) K/uL Eos # (Auto) (0-0.5) K/uL Baso # (Auto) (0-0.2) K/uL Immature Gran # (Auto) (0.00-0.02) K/uL PT (9.0-12.0) Seconds INR (0.9-1.1) APTT (21.0-31.0) Seconds PTT Ratio VBG pH (7.36-7.41) VBG pCO2 (38-50) mmHg VBG pO2 mmHg VBG HCO3 mmol/L VBG O2 Saturation % VBG Base Excess mEq/L Barometric Pressure mm/Hg Sodium (136-145) mmol/L Potassium (3.5-5.1) mmol/L Chloride (98-107) mmol/L Carbon Dioxide (21-32) mmol/L Anion Gap (3-11) BUN (7-18) mg/dl Creatinine (0.6-1.4) mg/dl Est Cr Clr Drug Dosing ml/min Est GFR ( Amer) Est GFR (Non-Af Amer) BUN/Creatinine Ratio (10-20) Glucose (70-99) mg/dl Lactate (0.4-2.0) mmol/L Calcium (8.5-10.1) mg/dl Magnesium (1.8-2.4) mg/dl Total Bilirubin (0.2-1) mg/dl AST (15-37) U/L ALT (12-78) U/L Alkaline Phosphatase (45-117) U/L Troponin I (0-0.045) ng/ml NT-Pro-B Natriuret Pep (0-900) pg/ml Total Protein (6.4-8.2) gm/dl Albumin (3.4-5.0) gm/dl Globulin (2.5-4.0) gm/dl Albumin/Globulin Ratio (0.9-2) Procalcitonin (0-0.5) ng/ml Urine Color Yellow Urine Appearance Clear (Clear) Urine pH 6.5 (4.5-7.5) Ur Specific [place] 1.018 (1.000-1.030) Urine Protein 1+ H (Negative) Urine Glucose (UA) 2+ H (Negative) Urine Ketones Negative (Negative) Urine Blood Negative (Negative) Urine Nitrite Negative (Negative) Urine Bilirubin Negative (Negative) Urine Urobilinogen Negative (Negative) Ur Leukocyte Esterase Negative (Negative) Urine WBC (Auto) 0 (0-5) /hpf Urine RBC (Auto) 0-4 (0-4) /hpf U Hyaline Cast (Auto) 1-5 (0-5) /lpf U Epithel Cells (Auto) 0-5 (0-5) /lpf Urine Bacteria (Auto) Negative (Negative) COVID-19 Eval [facility] A Molecular Assay (Negative) Influ B Molecular Assay (Negative) SARS-CoV-2, RNA, NAAT NEGATIVE (NEGATIVE) 05/16/20 05/16/20 Range/Units 21:10 21:47 WBC (4.8-10.8) K/uL RBC (4.7-6.1) M/uL Hgb (14.0-18.0) g/dL Hct (42-52) % MCV (80-100) fL MCH (25-34) pg MCHC (32-36) g/dL RDW Std Deviation (36.4-46.3) fL RDW Coeff of Atif (11.5-14.5) % Plt Count (130-400) K/uL MPV (7.4-10.4) fL Immature Gran % (Auto) % Neut % (Auto) % Lymph % (Auto) % [place] % (Auto) % Eos % (Auto) % Baso % (Auto) % Neut # (Auto) (1.4-6.5) K/uL Lymph # (Auto) (1.2-3.4) K/uL [place] # (Auto) (0.11-0.59) K/uL Eos # (Auto) (0-0.5) K/uL Baso # (Auto) (0-0.2) K/uL Immature Gran # (Auto) (0.00-0.02) K/uL PT (9.0-12.0) Seconds INR (0.9-1.1) APTT (21.0-31.0) Seconds PTT Ratio VBG pH (7.36-7.41) VBG pCO2 (38-50) mmHg VBG pO2 mmHg VBG HCO3 mmol/L VBG O2 Saturation % VBG Base Excess mEq/L Barometric Pressure mm/Hg Sodium (136-145) mmol/L Potassium (3.5-5.1) mmol/L Chloride (98-107) mmol/L Carbon Dioxide (21-32) mmol/L Anion Gap (3-11) BUN (7-18) mg/dl Creatinine (0.6-1.4) mg/dl Est Cr Clr Drug Dosing ml/min Est GFR ( Amer) Est GFR (Non-Af Amer) BUN/Creatinine Ratio (10-20) Glucose (70-99) mg/dl Lactate 1.5 (0.4-2.0) mmol/L Calcium (8.5-10.1) mg/dl Magnesium (1.8-2.4) mg/dl Total Bilirubin (0.2-1) mg/dl AST (15-37) U/L ALT (12-78) U/L Alkaline Phosphatase (45-117) U/L Troponin I (0-0.045) ng/ml NT-Pro-B Natriuret Pep (0-900) pg/ml Total Protein (6.4-8.2) gm/dl Albumin (3.4-5.0) gm/dl Globulin (2.5-4.0) gm/dl Albumin/Globulin Ratio (0.9-2) Procalcitonin (0-0.5) ng/ml Urine Color Urine Appearance (Clear) Urine pH (4.5-7.5) Ur Specific [place] (1.000-1.030) Urine Protein (Negative) Urine Glucose (UA) (Negative) Urine Ketones (Negative) Urine Blood (Negative) Urine Nitrite (Negative) Urine Bilirubin (Negative) Urine Urobilinogen (Negative) Ur Leukocyte Esterase (Negative) Urine WBC (Auto) (0-5) /hpf Urine RBC (Auto) (0-4) /hpf U Hyaline Cast (Auto) (0-5) /lpf U Epithel Cells (Auto) (0-5) /lpf Urine Bacteria (Auto) (Negative) COVID-19 Eval Order Influ A Molecular Assay Negative (Negative) Influ B Molecular Assay Negative (Negative) SARS-CoV-2, RNA, NAAT (NEGATIVE) Imaging Data Radiologist's Impression: SINGLE VIEW CHEST CLINICAL HISTORY: Sepsis. FINDINGS: An AP, portable, upright chest radiograph is compared to study dated 03/30/2020. Correlation is made with chest CT dated 03/12/2019. The heart is enlarged. The pulmonary vasculature is noncongested chronic interstitial thickening is similar to previous. There are mild bibasilar airspace opacities. No large pleural effusion or pneumothorax is seen. The skeletal structures are osteopenic. The bony thorax is grossly intact. IMPRESSION: 1. Cardiomegaly without radiographic evidence of congestive failure. 2. Mild bibasilar airspace opacities likely represent atelectasis. Correlate clinically for evidence of a superimposed infectious/inflammatory pneumonitis. ACT 112: Negative or not required by law. Electronically signed by: Washington Chance M.D. 05/16/2020 8:40 PM Dictated: 05/16/202038 Transcribed: 05/16/202038 ECG Data Indication: + SOB/dyspnea Rate (beats per minute): 80 Rhythm: + normal sinus ECG Intervals/blocks: + First degree AV block and + Normal QT-c ECG ST segments: + Normal ST segments Additional Comments: QRS 124 MDM Narrative 1922: The patient was evaluated in room C3. A complete history and physical exam was performed. Cardiac monitoring: An order was placed for continuous cardiac monitoring. The monitor shows a rate of 80 with sinus rhythm Patient was seen in full airborne precautions. Patient was seen in N95's, gloves, gowns, face shield by myself and staff. 2115: Patient became hypoxic on room air to 88%. Patient was given supplemental oxygen 2 L via nasal cannula which improved his oxygen saturation. Patient's labs show a creatinine of 7.6 which is expected given he has not had dialysis since . His potassium is within normal limits. Chest x-ray shows cardiomegaly with mild cephalization but no yaa pulmonary edema. Patient's lactic acid is elevated and his procalcitonin is elevated. Urinalysis is within normal limits. Given the elevated lactic acid and procalcitonin, the patient will be treated empiric antibiotics cefepime and vancomycin. I discussed the patient's case with nephrology on-call Dr. Richard and both he and I agree that the patient should be admitted for IV antibiotics given his elevated lactic acid and procalcitonin level. Both Dr. Madsen and I also feel that the patient does not need emergent dialysis at this time as his oxygen saturations improved with nasal cannula 2 L only and his potassium is within normal limits. Patient will have dialysis tomorrow in the hospital though will be arranged by Dr. Madsen. Discussed case with Dr. Benitez [facility] hospitalist who states she will evaluate the patient for admission. Impression & Plan Hypoxia, Sepsis, End-stage renal disease (ESRD) Discharge Plan Visit Data Chief Complaint: Shortness of Breath/Dyspnea Stated Complaint: BREATHING DIFFICULTIES ED Provider: Zack Neil Discharge Problem: Hypoxia, Sepsis, End-stage renal disease (ESRD) Patient Disposition: Admitted As Inpatient Forms Stand Alone Forms: [facility] Prescriptions Prescriptions: No Action furosemide [Lasix] 40 mg Tablet 80 mg PO BID RF: 0 insulin aspart U-100 [Novolog PenFill U-100 Insulin] 100 unit/mL Cartridge 10 unit SUBCUT AC RF: 0 tamsulosin 0.4 mg Capsule 0.4 mg PO QAM RF: 0 albuterol sulfate 90 mcg/actuation Hfa Aerosol Inhaler 2 puff INHALATION Q6H PRN (Reason: Shortness Of Breath) RF: 0 sertraline 50 mg Tablet 50 mg PO QAM PRN (Reason: Anxiety) RF: 0 loratadine 10 mg Tablet 10 mg PO DAILY PRN (Reason: Allergy Symptoms) RF: 0 clonidine HCl 0.1 mg tablet 0.1 mg PO DIRECTED RF: 0 amlodipine 10 mg tablet 5 mg PO QAM RF: 0 clopidogrel [Plavix] 75 mg Tablet 75 mg PO DAILY RF: 0 aspirin [Aspir-81] 81 mg Tablet,Delayed Release (Dr/Ec) 81 mg PO DAILY RF: 0 Lantus Solostar U-100 Insulin 100 unit/mL (3 mL) insulin pen 50 unit SUBCUT BID RF: 0 sevelamer carbonate [Renvela] 800 mg tablet 800 mg PO TIDM RF: 0 ProRenal 8 mg iron-800 mcg-1,000 unit tablet 1 tab PO QPM RF: 0 nitroglycerin [Nitrostat] 0.4 mg Tablet, Sublingual 0.4 mg sublingual UD PRN (Reason: chest pain) Qty: 20 RF: 0 atorvastatin 40 mg Tablet 40 mg PO PM Qty: 30 RF: 5 carvedilol [Coreg] 6.25 mg tablet 6.25 mg PO BID RF: 0 cholecalciferol (vitamin D3) [Vitamin D3] 25 mcg (1,000 unit) Tablet 0 mcg PO MOWEFR RF: 0 Referrals Referrals: Shiv Gallardo MD [Primary Care Provider] - Discharge Problem: Sepsis Qualifiers: Sepsis type: sepsis due to unspecified organism Sepsis acute organ dysfunction status: unspecified Qualified Code(s): A41.9 - Sepsis, unspecified organism
[2020-05-16 20:08] LABS: Basophils # (auto) 0.02 K/uL (0-0.2); Basophils % (auto) 0.2 %; Eosinophils # (auto) 0.32 K/uL (0-0.5); Eosinophils % (auto) 3.3 %; Hematocrit (blood only) 39.6 % (42-52); Hemoglobin 13.2 g/dL (14.0-18.0); Immature Granulocytes # (auto) 0.02 K/uL (0.00-0.02); Immature Granulocytes % (auto) 0.2 %; Lymphocytes # (auto) 1.24 K/uL (1.2-3.4); Lymphocytes % (auto) 12.8 %; Mean Corpuscular Hemoglobin 31.5 pg (25-34); Mean Corpuscular Hgb Conc 33.3 g/dL (32-36); Mean Corpuscular Volume 94.5 fL (80-100); Mean Platelet Volume 10.9 fL (7.4-10.4); Monocytes # (auto) 0.55 K/uL (0.11-0.59); Monocytes % (auto) 5.7 %; Neutrophils # (auto) 7.56 K/uL (1.4-6.5); Neutrophils % (auto) 77.8 %; Platelet Count 215 K/uL (130-400); RDW Coefficient of Variation 15.2 % (11.5-14.5); RDW Standard Deviation 52.1 fL (36.4-46.3); Red Blood Count 4.19 M/uL (4.7-6.1); White Blood Count 9.71 K/uL (4.8-10.8)
[2020-05-16 20:09] LABS: Base Excess VBG 0.8 mEq/L; pH VBG 7.35 (7.36-7.41)
[2020-05-16 20:17] LABS: Appearance Urine Clear (Clear); Bacteria Urine Automated Negative (Negative); Bilirubin Urine Negative (Negative); Blood Urine Negative (Negative); Color Urine Yellow; Epithelial Cell Urine Auto 0-5 /lpf (0-5); Glucose Urine UA 2+ (Negative); Ketones Urine Negative (Negative); Leukocyte Esterase Urine Negative (Negative); Nitrite Urine Negative (Negative); Protein Urine 1+ (Negative); RBC Urine Automated 0-4 /hpf (0-4); Specific Gravity Urine 1.018 (1.000-1.030); Urobilinogen Urine Negative (Negative); WBC Urine Automated 0 /hpf (0-5); pH Urine 6.5 (4.5-7.5)
[2020-05-16 20:20] LABS: Partial Thromboplastin Time 28.9 Seconds (21.0-31.0); Prothrombin Time 10.9 Seconds (9.0-12.0)
[2020-05-16] MEDS ORDERED: DEXAMETHASONE SOD INJ 10 MG/ML VIAL IV ONE (20:32)
--- NOTE | 2020-05-16 20:42 | XRay Report ---
SINGLE VIEW CHEST CLINICAL HISTORY: Sepsis. FINDINGS: An AP, portable, upright chest radiograph is compared to study dated 03/30/2020. Correlatio n is made with chest CT dated 03/12/2019. The heart is enlarged. The pulmonary vasculature is noncong ested chronic interstitial thickening is similar to previous. There are mild bibasilar airspace opaci ties. No large pleural effusion or pneumothorax is seen. The skeletal structures are osteopenic. The bony thorax is grossly intact. IMPRESSION: 1. Cardiomegaly without radiographic evidence of congestive failure. 2. Mild bibasilar airspace opacities likely represent atelectasis. Correlate clinically for evidence of a superimposed infectious/inflammatory pneumonitis. ACT 112: Negative or not required by law. Electronically signed by: Washington Chance M.D. 05/16/2020 8:40 PM
[2020-05-16 20:50] LABS: Albumin Globulin Ratio 0.8 (0.9-2); Albumin Level 3.5 gm/dl (3.4-5.0); BUN Creatinine Ratio 11.8 (10-20); Bilirubin,Total 0.3 mg/dl (0.2-1); Calcium 8.5 mg/dl (8.5-10.1); Creatinine Clr Calc Pharmacy 12.7 ml/min; Est GFR (African American) 7.7; Est GFR (Non-African American) 6.6; Globulin 4.2 gm/dl (2.5-4.0); Magnesium 2.6 mg/dl (1.8-2.4); Potassium 4.2 mmol/L (3.5-5.1); Total Protein 7.7 gm/dl (6.4-8.2); Troponin I 0.03 ng/ml (0-0.045)
[2020-05-16] MEDS ORDERED: VANCOMYCIN HCL 2,500 MG in SODIUM CHLORIDE 0.9% 500 ML IV ONE (21:14)
[2020-05-16] MEDS ORDERED: CEFEPIME 2,000 MG/20 ML VIAL IV STA (21:14)
[2020-05-16] MEDS ORDERED: VANCOMYCIN CONSULT ACTIVE PRN (21:14)
[2020-05-16 21:39] LABS: Influenza A virus by PCR Negative (Negative); Influenza B virus by PCR Negative (Negative)
--- NOTE | 2020-05-16 22:14 | History & Physical Report ---
Date of Service May 16, 2020 Assessment & Plan (1) End-stage renal disease on hemodialysis: 70-year-old male with a past medical history of paroxysmal atrial flutter, heart failure with preserved ejection fraction, BPH, depression, CAD, DM 2, hypertension, and end-stage renal disease on hemodialysis Monday, , Monday, presents for increasing shortness of breath after missing his scheduled dialysis today due to the holidays scheduled to receive dialysis tomorrow #Increasing shortness of breath likely secondary to end-stage renal disease on hemodialysis complicated by diabetes and heart failure with preserved ejection fraction and paroxysmal atrial fibrillation Patient reports a history as described above, did not obtain dialysis today, have confirmed availability for dialysis tomorrow. Patient reports he experience increasing shortness of breath will bring in his groceries this afternoon, otherwise has had no significant constitutional symptoms in the recent days, he has associated mediastinal pain which is chronic in nature from an incident 10 years ago involving [place]. He states that this pain waxes and wanes. He states he is not currently in atrial fibrillation can tell when he is as he can hear. EKG demonstrates is not in atrial fibrillation as well. Glucose was elevated to 275 on admission. Patient will be admitted for monitoring of her shortness of breath, and dialysis tomorrow. -Consult nephrology for hemodialysis -Admit to [facility] -Chest x-ray with increasing shortness of breath -No current heart failure symptoms -Most recent echo from December 23 demonstrating normal LV size, LVEF 55-60 with no regional wall motion abnormalities, borderline dilated RV, aortic valve sclerosis without stenosis, mild mitral regurg -Continue 80 mg Lasix p.o. twice daily #Paroxysmal atrial fibrillation Not on chronic anticoagulation, will initiate heparin while hospitalized. #BPH -Continue tamsulosin #Coronary artery disease History of stenting -Continue clopidogrel 75 mg p.o. daily -Continue carvedilol 6.25 mg p.o. twice daily -Continue atorvastatin 40 mg p.o. every afternoon #Hypertension -Continue amlodipine 5 mg every morning Check diabetes Home regimen of 50 units of Lantus subcutaneously twice daily and 10 units of aspart -Transition to 35 twice daily of Lantus -SSI with a correction factor of 18 and a CHO ratio of 8 #Depression -Continue sertraline 50 mg every morning #Sleep apnea Does not use CPAP at home #Elevated procalcitonin Given a dose of vancomycin and cefepime in the ED, no further indication for antibiotics at present. Follow-up blood cultures FENa: Renal/carb consistent diet Code Status: Full code DVT PPX:Heparin PT/OT: Not indicated Dispo: Rosalba Benitez MD PGY 3, FCM This chart was completed utilizing [employer]D Forms voice recognition software. Grammatical errors, random word insertions, pronoun errors, and in complete sentences are an occasional consequence of the system. Any questions or concerns about the content, text, or information contained within the body of this dictation should be addressed directly to the physician for clarification. (2) CKD (chronic kidney disease), stage V: (3) (HFpEF) heart failure with preserved ejection fraction: (4) BPH (benign prostatic hyperplasia): (5) Depression: (6) CAD (coronary artery disease): (7) Diabetes mellitus type 2 in obese: (8) Hypercholesterolemia: (9) Sleep apnea: (10) HTN (hypertension): History of Present Illness 70-year-old male with a past medical history of paroxysmal atrial flutter, heart failure with preserved ejection fraction, BPH, depression, CAD, DM 2, hypertension, and end-stage renal disease on hemodialysis Monday, , Monday, presents for increasing shortness of breath after missing his scheduled dialysis today due to the holidays scheduled to receive dialysis tomorrow. Patient denies any recent constitutional symptoms including fever/chills, cough, chest pressure, chest pain, headache, nausea, vomiting, abdominal pain, reporting he has been in his normal state of health recently. Today while bringing in the groceries he noticed increasing shortness of breath. He endorses mediastinal chest pain which he states is chronic in nature and waxes and wanes. He states that the symptoms began a number of years ago as he was working with [employer] and inhaled a great amount of dust. Ever since that point he is having continuous mediastinal chest discomfort that waxes and wanes in nature. He does endorse having this to worsening degree today. Upon arrival in the emergency department routine labs were obtained, CBC was within normal limits, INR 1.0, VBG 7.3 5/50/41/27, CMP with a BUN of 90, creatinine of 7.60, glucose of 275, lactate pending, magnesium of 2.6, BNP 1170, pro-Mino of 0.6, urine was negative for infection, Covid negative, flu negative. Chest x-ray demonstrating cardiomegaly without radiographic evidence of CHF, bibasilar airspace opacities likely representing atelectasis. The hospital service was consulted for admission Patient is currently doing well saturating at 95% on 2 L of O2. He will be admitted for further management of his shortness of breath, there is no need for emergent hemodialysis. Dr. Richard confirm dialysis is available tomorrow. All questions were answered no acute concerns Primary Care Provider: Shiv Gallardo MD Allergies Allergy/AdvReac Type Severity Reaction Status Date / Time ragweed pollen Allergy Mild [place] Verified 05/16/20 20:03 [place] Complexes Allergy Unknown rash from Verified 05/16/20 20:03 metal Home Medications Medication Instructions Recorded Confirmed Type albuterol sulfate 2 puff INHALATION Q6H PRN 01/06/19 05/16/20 History furosemide [Lasix] 80 mg PO BID 01/06/19 05/16/20 History insulin aspart U-100 [Novolog 10 unit SUBCUT AC 01/06/19 05/16/20 History PenFill U-100 Insulin] loratadine 10 mg PO DAILY PRN 01/06/19 05/16/20 History sertraline 50 mg PO QAM PRN 01/06/19 05/16/20 History tamsulosin 0.4 mg PO QAM 01/06/19 05/16/20 History Lantus Solostar U-100 Insulin 50 unit SUBCUT BID 03/06/19 05/16/20 History aspirin [Aspir-81] 81 mg PO DAILY 03/06/19 05/16/20 History clopidogrel [Plavix] 75 mg PO DAILY 03/06/19 05/16/20 History ProRenal 1 tab PO QPM 09/26/19 05/16/20 History sevelamer carbonate [Renvela] 800 mg PO TIDM 09/26/19 05/16/20 History amlodipine 10 mg tablet 5 mg PO QAM tab 12/18/19 05/16/20 History clonidine HCl 0.1 mg tablet 0.1 mg PO DIRECTED 12/18/19 05/16/20 History atorvastatin 40 mg PO PM #30 tab 12/27/19 05/16/20 Rx nitroglycerin [Nitrostat] 0.4 mg SUBLINGUAL UD PRN #20 tab 12/27/19 05/16/20 Rx carvedilol [Coreg] 6.25 mg PO BID 03/30/20 05/16/20 History cholecalciferol (vitamin D3) 0 mcg PO MOWEFR 05/16/20 05/16/20 History [Vitamin D3] Past Med/Surg History Medical History Abnormal abdominal CT scan Anemia CAD (coronary artery disease) s/p stent 2018 CHF exacerbation Chronic kidney disease, stage 4 (severe) CKD (chronic kidney disease) Stage 4 Diabetes Dyslipidemia Elevated troponin Elevated troponin HTN (hypertension) Hypoxia Leukocytosis Lower abdominal pain Orthostatic dizziness Paroxysmal atrial fibrillation Secondary hyperparathyroidism of renal origin Sinus node dysfunction Sleep apnea does not use CPAP Surgical History AV fistula History of loop recorder Implanted 05/01/2019 Family History Other Hypertension Social History Smoking Status: Former smoker Tobacco Type: Cigarettes Cigarettes Per Day: 10; Second Hand Exposure: No; Hx Alcohol Use: Yes Alcohol type: beer and wine Hx Substance Use: No Preferred Language: Azeri Communication Ability: Effective Gun Examiner Required: No Beliefs That Will Affect Care: None marital status: Current Living Situation: Alone How many Children do You have: 0 Other Information That Helps Us Care for You: No Feels Safe at Home: Yes Safety Concerns: Feels Safe At This Time Assistive Devices: None Assistive Devices Comment: pt has walker, cane and O2 at home but does not use it Review of Systems Review of Systems: All systems reviewed & are unremarkable except as noted in HPI & below Physical Exam Physical Exam: General: Sitting upright in a chair no acute distress HEENT: Normocephalic atraumatic Neck: Trachea midline normal to visual inspection did not appreciate significant JVD Cardiac: Regular rate and rhythm I did not appreciate significant murmurs rubs or gallops, normal S1, normal S2, negative calf tenderness, negative pedal edema Respiratory: Breath sounds sound distant but otherwise clear to auscultation, did not appreciate any focal wheezes, rales, rhonchi, no increased work of breathing GI: Distended abdomen otherwise soft, nontender, bowel sounds present MSK: Moves all extremities Neuro: Alert and oriented x4 Psych: Calm and cooperative Results & Data Results & Data ([facility]) Vital Signs (Past 12 Hours) Vital Signs Temp Pulse Resp BP Pulse Ox 05/16/20 20:30 77 20 153/75 H 95 05/16/20 20:04 104 H 95 05/16/20 19:56 88 L 05/16/20 19:50 77 10 L 94 05/16/20 19:40 89 L 05/16/20 19:31 91 05/16/20 19:30 82 186/88 H 90 05/16/20 19:28 88 13 91 05/16/20 19:22 36.9 C 81 22 186/85 H 91 05/16/20 19:21 80 15 186/85 H 91 Laboratory Results 05/16/20 05/16/20 05/16/20 Range/Units 21:47 21:10 20:00 WBC (4.8-10.8) K/uL RBC (4.7-6.1) M/uL Hgb (14.0-18.0) g/dL Hct (42-52) % MCV (80-100) fL MCH (25-34) pg MCHC (32-36) g/dL RDW Std Deviation (36.4-46.3) fL RDW Coeff of Atif (11.5-14.5) % Plt Count (130-400) K/uL MPV (7.4-10.4) fL Immature Gran % (Auto) % Neut % (Auto) % Lymph % (Auto) % [place] % (Auto) % Eos % (Auto) % Baso % (Auto) % Neut # (Auto) (1.4-6.5) K/uL Lymph # (Auto) (1.2-3.4) K/uL [place] # (Auto) (0.11-0.59) K/uL Eos # (Auto) (0-0.5) K/uL Baso # (Auto) (0-0.2) K/uL Immature Gran # (Auto) (0.00-0.02) K/uL PT (9.0-12.0) Seconds INR (0.9-1.1) APTT (21.0-31.0) Seconds PTT Ratio VBG pH (7.36-7.41) VBG pCO2 (38-50) mmHg VBG pO2 mmHg VBG HCO3 mmol/L VBG O2 Saturation % VBG Base Excess mEq/L Barometric Pressure mm/Hg Sodium (136-145) mmol/L Potassium (3.5-5.1) mmol/L Chloride (98-107) mmol/L Carbon Dioxide (21-32) mmol/L Anion Gap (3-11) BUN (7-18) mg/dl Creatinine (0.6-1.4) mg/dl Est Cr Clr Drug Dosing ml/min Est GFR ( Amer) Est GFR (Non-Af Amer) BUN/Creatinine Ratio (10-20) Glucose (70-99) mg/dl Lactate 1.5 (0.4-2.0) mmol/L Calcium (8.5-10.1) mg/dl Magnesium (1.8-2.4) mg/dl Total Bilirubin (0.2-1) mg/dl AST (15-37) U/L ALT (12-78) U/L Alkaline Phosphatase (45-117) U/L Troponin I (0-0.045) ng/ml NT-Pro-B Natriuret Pep (0-900) pg/ml Total Protein (6.4-8.2) gm/dl Albumin (3.4-5.0) gm/dl Globulin (2.5-4.0) gm/dl Albumin/Globulin Ratio (0.9-2) Procalcitonin (0-0.5) ng/ml Urine Color Yellow Urine Appearance Clear (Clear) Urine pH 6.5 (4.5-7.5) Ur Specific [place] 1.018 (1.000-1.030) Urine Protein 1+ H (Negative) Urine Glucose (UA) 2+ H (Negative) Urine Ketones Negative (Negative) Urine Blood Negative (Negative) Urine Nitrite Negative (Negative) Urine Bilirubin Negative (Negative) Urine Urobilinogen Negative (Negative) Ur Leukocyte Esterase Negative (Negative) Urine WBC (Auto) 0 (0-5) /hpf Urine RBC (Auto) 0-4 (0-4) /hpf U Hyaline Cast (Auto) 1-5 (0-5) /lpf U Epithel Cells (Auto) 0-5 (0-5) /lpf Urine Bacteria (Auto) Negative (Negative) COVID-19 Eval Order Influ A Molecular Assay Negative (Negative) Influ B Molecular Assay Negative (Negative) SARS-CoV-2, RNA, NAAT (NEGATIVE) 05/16/20 05/16/20 05/16/20 Range/Units 19:56 19:56 19:53 WBC (4.8-10.8) K/uL RBC (4.7-6.1) M/uL Hgb (14.0-18.0) g/dL Hct (42-52) % MCV (80-100) fL MCH (25-34) pg MCHC (32-36) g/dL RDW Std Deviation (36.4-46.3) fL RDW Coeff of Atif (11.5-14.5) % Plt Count (130-400) K/uL MPV (7.4-10.4) fL Immature Gran % (Auto) % Neut % (Auto) % Lymph % (Auto) % [place] % (Auto) % Eos % (Auto) % Baso % (Auto) % Neut # (Auto) (1.4-6.5) K/uL Lymph # (Auto) (1.2-3.4) K/uL [place] # (Auto) (0.11-0.59) K/uL Eos # (Auto) (0-0.5) K/uL Baso # (Auto) (0-0.2) K/uL Immature Gran # (Auto) (0.00-0.02) K/uL PT (9.0-12.0) Seconds INR (0.9-1.1) APTT (21.0-31.0) Seconds PTT Ratio VBG pH 7.35 L (7.36-7.41) VBG pCO2 50 (38-50) mmHg VBG pO2 41 mmHg VBG HCO3 27 mmol/L VBG O2 Saturation 71.0 % VBG Base Excess 0.8 mEq/L Barometric Pressure 733.2 mm/Hg Sodium (136-145) mmol/L Potassium (3.5-5.1) mmol/L Chloride (98-107) mmol/L Carbon Dioxide (21-32) mmol/L Anion Gap (3-11) BUN (7-18) mg/dl Creatinine (0.6-1.4) mg/dl Est Cr Clr Drug Dosing ml/min Est GFR ( Amer) Est GFR (Non-Af Amer) BUN/Creatinine Ratio (10-20) Glucose (70-99) mg/dl Lactate (0.4-2.0) mmol/L Calcium (8.5-10.1) mg/dl Magnesium (1.8-2.4) mg/dl Total Bilirubin (0.2-1) mg/dl AST (15-37) U/L ALT (12-78) U/L Alkaline Phosphatase (45-117) U/L Troponin I (0-0.045) ng/ml NT-Pro-B Natriuret Pep (0-900) pg/ml Total Protein (6.4-8.2) gm/dl Albumin (3.4-5.0) gm/dl Globulin (2.5-4.0) gm/dl Albumin/Globulin Ratio (0.9-2) Procalcitonin (0-0.5) ng/ml Urine Color Urine Appearance (Clear) Urine pH (4.5-7.5) Ur Specific [place] (1.000-1.030) Urine Protein (Negative) Urine Glucose (UA) (Negative) Urine Ketones (Negative) Urine Blood (Negative) Urine Nitrite (Negative) Urine Bilirubin (Negative) Urine Urobilinogen (Negative) Ur Leukocyte Esterase (Negative) Urine WBC (Auto) (0-5) /hpf Urine RBC (Auto) (0-4) /hpf U Hyaline Cast (Auto) (0-5) /lpf U Epithel Cells (Auto) (0-5) /lpf Urine Bacteria (Auto) (Negative) COVID-19 Eval [facility] A Molecular Assay (Negative) Influ B Molecular Assay (Negative) SARS-CoV-2, RNA, NAAT NEGATIVE (NEGATIVE) 05/16/20 05/16/20 05/16/20 Range/Units 19:53 19:53 19:53 WBC (4.8-10.8) K/uL RBC (4.7-6.1) M/uL Hgb (14.0-18.0) g/dL Hct (42-52) % MCV (80-100) fL MCH (25-34) pg MCHC (32-36) g/dL RDW Std Deviation (36.4-46.3) fL RDW Coeff of Atif (11.5-14.5) % Plt Count (130-400) K/uL MPV (7.4-10.4) fL Immature Gran % (Auto) % Neut % (Auto) % Lymph % (Auto) % [place] % (Auto) % Eos % (Auto) % Baso % (Auto) % Neut # (Auto) (1.4-6.5) K/uL Lymph # (Auto) (1.2-3.4) K/uL [place] # (Auto) (0.11-0.59) K/uL Eos # (Auto) (0-0.5) K/uL Baso # (Auto) (0-0.2) K/uL Immature Gran # (Auto) (0.00-0.02) K/uL PT (9.0-12.0) Seconds INR (0.9-1.1) APTT (21.0-31.0) Seconds PTT Ratio VBG pH (7.36-7.41) VBG pCO2 (38-50) mmHg VBG pO2 mmHg VBG HCO3 mmol/L VBG O2 Saturation % VBG Base Excess mEq/L Barometric Pressure mm/Hg Sodium 138 (136-145) mmol/L Potassium 4.2 (3.5-5.1) mmol/L Chloride 101 (98-107) mmol/L Carbon Dioxide 25 (21-32) mmol/L Anion Gap 12.0 H (3-11) BUN 90 H (7-18) mg/dl Creatinine 7.60 H* (0.6-1.4) mg/dl Est Cr Clr Drug Dosing 12.7 ml/min Est GFR ( Amer) 7.7 Est GFR (Non-Af Amer) 6.6 BUN/Creatinine Ratio 11.8 (10-20) Glucose 275 H (70-99) mg/dl Lactate 2.5 H* (0.4-2.0) mmol/L Calcium 8.5 (8.5-10.1) mg/dl Magnesium 2.6 H (1.8-2.4) mg/dl Total Bilirubin 0.3 (0.2-1) mg/dl AST 15 (15-37) U/L ALT 20 (12-78) U/L Alkaline Phosphatase 63 (45-117) U/L Troponin I 0.030 (0-0.045) ng/ml NT-Pro-B Natriuret Pep 1170 H (0-900) pg/ml Total Protein 7.7 (6.4-8.2) gm/dl Albumin 3.5 (3.4-5.0) gm/dl Globulin 4.2 H (2.5-4.0) gm/dl Albumin/Globulin Ratio 0.8 L (0.9-2) Procalcitonin 0.62 H (0-0.5) ng/ml Urine Color Urine Appearance (Clear) Urine pH (4.5-7.5) Ur Specific [place] (1.000-1.030) Urine Protein (Negative) Urine Glucose (UA) (Negative) Urine Ketones (Negative) Urine Blood (Negative) Urine Nitrite (Negative) Urine Bilirubin (Negative) Urine Urobilinogen (Negative) Ur Leukocyte Esterase (Negative) Urine WBC (Auto) (0-5) /hpf Urine RBC (Auto) (0-4) /hpf U Hyaline Cast (Auto) (0-5) /lpf U Epithel Cells (Auto) (0-5) /lpf Urine Bacteria (Auto) (Negative) COVID-19 Eval Order Influ A Molecular Assay (Negative) Influ B Molecular Assay (Negative) SARS-CoV-2, RNA, NAAT (NEGATIVE) 05/16/20 05/16/20 Range/Units 19:53 19:53 WBC 9.71 (4.8-10.8) K/uL RBC 4.19 L (4.7-6.1) M/uL Hgb 13.2 L (14.0-18.0) g/dL Hct 39.6 L (42-52) % MCV 94.5 (80-100) fL MCH 31.5 (25-34) pg MCHC 33.3 (32-36) g/dL RDW Std Deviation 52.1 H (36.4-46.3) fL RDW Coeff of Atif 15.2 H (11.5-14.5) % Plt Count 215 (130-400) K/uL MPV 10.9 H (7.4-10.4) fL Immature Gran % (Auto) 0.2 % Neut % (Auto) 77.8 % Lymph % (Auto) 12.8 % [place] % (Auto) 5.7 % Eos % (Auto) 3.3 % Baso % (Auto) 0.2 % Neut # (Auto) 7.56 H (1.4-6.5) K/uL Lymph # (Auto) 1.24 (1.2-3.4) K/uL [place] # (Auto) 0.55 (0.11-0.59) K/uL Eos # (Auto) 0.32 (0-0.5) K/uL Baso # (Auto) 0.02 (0-0.2) K/uL Immature Gran # (Auto) 0.02 (0.00-0.02) K/uL PT 10.9 (9.0-12.0) Seconds INR 1.0 (0.9-1.1) APTT 28.9 (21.0-31.0) Seconds PTT Ratio 1.0 VBG pH (7.36-7.41) VBG pCO2 (38-50) mmHg VBG pO2 mmHg VBG HCO3 mmol/L VBG O2 Saturation % VBG Base Excess mEq/L Barometric Pressure mm/Hg Sodium (136-145) mmol/L Potassium (3.5-5.1) mmol/L Chloride (98-107) mmol/L Carbon Dioxide (21-32) mmol/L Anion Gap (3-11) BUN (7-18) mg/dl Creatinine (0.6-1.4) mg/dl Est Cr Clr Drug Dosing ml/min Est GFR ( Amer) Est GFR (Non-Af Amer) BUN/Creatinine Ratio (10-20) Glucose (70-99) mg/dl Lactate (0.4-2.0) mmol/L Calcium (8.5-10.1) mg/dl Magnesium (1.8-2.4) mg/dl Total Bilirubin (0.2-1) mg/dl AST (15-37) U/L ALT (12-78) U/L Alkaline Phosphatase (45-117) U/L Troponin I (0-0.045) ng/ml NT-Pro-B Natriuret Pep (0-900) pg/ml Total Protein (6.4-8.2) gm/dl Albumin (3.4-5.0) gm/dl Globulin (2.5-4.0) gm/dl Albumin/Globulin Ratio (0.9-2) Procalcitonin (0-0.5) ng/ml Urine Color Urine Appearance (Clear) Urine pH (4.5-7.5) Ur Specific [place] (1.000-1.030) Urine Protein (Negative) Urine Glucose (UA) (Negative) Urine Ketones (Negative) Urine Blood (Negative) Urine Nitrite (Negative) Urine Bilirubin (Negative) Urine Urobilinogen (Negative) Ur Leukocyte Esterase (Negative) Urine WBC (Auto) (0-5) /hpf Urine RBC (Auto) (0-4) /hpf U Hyaline Cast (Auto) (0-5) /lpf U Epithel Cells (Auto) (0-5) /lpf Urine Bacteria (Auto) (Negative) COVID-19 Eval Order Influ A Molecular Assay (Negative) Influ B Molecular Assay (Negative) SARS-CoV-2, RNA, NAAT (NEGATIVE) Medications Administered Current Inpatient Medications Vancomycin HCl 2,500 mg/ (Sodium Chloride) 550 mls @ 200 mls/hr IV NOW ONE Stop: 05/16/20 23:58 Last Admin: 05/16/20 22:03 Dose: 200 mls/hr Documented by: Miscellaneous Information (Vancomycin Consult Active) 1 ea N/A UD PRN PRN Reason: Consult Stop: 06/15/20 21:13 Code Status & VTE Plan Code Status full VTE Prophylaxis Plan VTE Prophylaxis will be ordered: Yes Supervising Physician Co-Signing Physician Notes Patient seen and examined, chart reviewed, case discussed with Dr. Benitez and I agree with his assessment and plan as above. Briefly, patient is a 70yo C male with ESRD on HD presenting with SOB, chest tightness. Symptoms now resolved. On exam patient is afebrile, HTN otherwise HD stable, NAD Seen in his room - sitting in chair, comfortable Skin - no rash HEENT - NC/AT, PERRL, EOMI Heart - +S1/S2, regular Lungs - CTA Abd - +BS, soft, NT/ND Ext- RUE AV fistula with thrill Assessment/Plan - HD today -Remainder of plan as above Resident Activity Tracking Resident Involvement: Resident Care Provided Care Provided: Adult Hospital Medicine (1) BPH (benign prostatic hyperplasia) Lower urinary tract symptom presence: symptoms absent Qualified Code(s): N40.0 - Benign prostatic hyperplasia without lower urinary tract symptoms (2) Sleep apnea Sleep apnea type: unspecified type Qualified Code(s): G47.30 - Sleep apnea, unspecified (3) CAD (coronary artery disease) Associated angina: without angina Coronary Disease-Associated Artery/Lesion type: [place] artery [place] vs. transplanted heart: [place] heart Qualified Code(s): I25.10 - Atherosclerotic heart disease of [place] coronary artery without angina pectoris (4) Depression Active/Remission status: remission status unspecified Depression Type: major depressive disorder Major depression recurrence: recurrent Qualified Code(s): F33.9 - Major depressive disorder, recurrent, unspecified (5) HTN (hypertension) Hypertension type: essential hypertension Qualified Code(s): I10 - Essential (primary) hypertension
[2020-05-17] MEDS ORDERED: ONDANSETRON INJ 2 MG/ML 2 ML VIAL IV PRN (02:03)
[2020-05-17] MEDS ORDERED: MELATONIN 3 MG TAB PO PRN (02:03)
[2020-05-17] MEDS ORDERED: SERTRALINE HCL 50 MG TABLET PO PRN (02:03)
[2020-05-17] MEDS ORDERED: ACETAMINOPHEN 325 MG TAB PO PRN (02:03)
[2020-05-17] MEDS ORDERED: ALBUTEROL HFA 8 GM INHALER INH PRN (02:03)
[2020-05-17] MEDS ORDERED: LORATADINE 10 MG TAB PO PRN (02:03)
[2020-05-17] MEDS ORDERED: NITROGLYCERIN SL 0.4 MG/TAB TAB SL PRN (02:03)
[2020-05-17] MEDS: INSULIN GLARGINE SOLOSTAR 100 UNITS/ML 3 ML PEN SC SCH ×3 (02:42→21:19)
[2020-05-17] MEDS: INSULIN ASPART 100 UNITS/ML 3 ML PEN SC SCH ×5 (02:42→21:19)
[2020-05-17] MEDS: carvediloL 6.25 MG TAB PO SCH ×3 (03:44→21:18)
[2020-05-17] MEDS: cloNIDine HCL 0.1 MG TAB PO SCH ×3 (03:46→21:18)
[2020-05-17] MEDS: FUROSEMIDE 80 MG TAB PO SCH ×3 (03:46→17:38)
[2020-05-17 05:57] LABS: Basophils # (auto) 0.01 K/uL (0-0.2); Basophils % (auto) 0.1 %; Eosinophils # (auto) 0.02 K/uL (0-0.5); Eosinophils % (auto) 0.2 %; Hematocrit (blood only) 39.6 % (42-52); Immature Granulocytes # (auto) 0.02 K/uL (0.00-0.02); Immature Granulocytes % (auto) 0.2 %; Lymphocytes # (auto) 0.64 K/uL (1.2-3.4); Lymphocytes % (auto) 7.8 %; Mean Corpuscular Hemoglobin 31.1 pg (25-34); Mean Corpuscular Hgb Conc 32.8 g/dL (32-36); Mean Corpuscular Volume 94.7 fL (80-100); Monocytes # (auto) 0.07 K/uL (0.11-0.59); Monocytes % (auto) 0.9 %; Neutrophils # (auto) 7.43 K/uL (1.4-6.5); Neutrophils % (auto) 90.8 %; Platelet Count 211 K/uL (130-400); RDW Coefficient of Variation 15.3 % (11.5-14.5); RDW Standard Deviation 52.3 fL (36.4-46.3); Red Blood Count 4.18 M/uL (4.7-6.1); White Blood Count 8.19 K/uL (4.8-10.8)
[2020-05-17] MEDS: HEPARIN SOD 5,000 UNIT/0.5 ML VIAL SQ SCH ×2 (06:16→17:15)
--- NOTE | 2020-05-17 06:34 | Billing Data ---
Date of Service May 16, 2020 Coding Level of Care Code 54613 Initial Inpt Care Lvl 3
[2020-05-17 06:41] LABS: Albumin Globulin Ratio 0.8 (0.9-2); Albumin Level 3.5 gm/dl (3.4-5.0); BUN Creatinine Ratio 12.3 (10-20); Bilirubin,Total 0.3 mg/dl (0.2-1); Creatinine Clr Calc Pharmacy 13.7 ml/min; Est GFR (African American) 8.5; Est GFR (Non-African American) 7.4; Globulin 4.4 gm/dl (2.5-4.0); Total Protein 7.9 gm/dl (6.4-8.2)
--- NOTE | 2020-05-17 07:52 | Hospitalist Progress Note ---
Date of Service May 17, 2020 Assessment & Plan (1) End-stage renal disease on hemodialysis: 70-year-old male with a past medical history of paroxysmal atrial flutter, heart failure with preserved ejection fraction, BPH, depression, CAD, DM 2, hypertension, and end-stage renal disease on hemodialysis Monday, , Monday, presents for increasing shortness of breath after missing his scheduled dialysis today due to the holidays scheduled to receive dialysis tomorrow #Increasing shortness of breath likely secondary to end-stage renal disease on hemodialysis complicated by diabetes and heart failure with preserved ejection fraction and paroxysmal atrial fibrillation Patient reports a history as described above, did not obtain dialysis today, have confirmed availability for dialysis tomorrow. Patient reports he experience increasing shortness of breath will bring in his groceries this afternoon, otherwise has had no significant constitutional symptoms in the recent days, he has associated mediastinal pain which is chronic in nature from an incident 10 years ago involving [place]. He states that this pain waxes and wanes. He states he is not currently in atrial fibrillation can tell when he is as he can hear. EKG demonstrates is not in atrial fibrillation as well. Glucose was elevated to 275 on admission. Patient admitted for monitoring of her shortness of breath. SOB resolved with dexamethasone given in the ER (also given cefepime/vanco but no need to continue at this time). 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 Possible some component of anxiety triggered acute respiratory event as breathing comfortably on room air and lung sound good on examination CXR without evidence of congestive changes ECHO December with normal LV size, LVEF 55-60 with no regional wall motion abnormalities, borderline dilated RV, aortic valve sclerosis without stenosis, mild mitral regurg. No need to repeat at this time Continue lasix 80mg BID Nephrology consulted -- plans for HD this afternoon Paroxysmal atrial fibrillation * Not on chronic anticoagulation, will initiate heparin while hospitalized. * NSR on examination -- NSR on admission with IVCD * Monitor for arrhythmias (not on telemetry though at this time but was regular on examination) BPH * Continue tamsulosin * Low UO in ESRD patient -- per nephrology, patient may just not make very much urine Coronary artery disease * History of stenting * Continue clopidogrel 75 mg, ASA 81mg, carvedilol 6.25 mg p.o. twice daily * Continue atorvastatin 40 mg p.o. every afternoon Hypertension/Hyperlipidemia * Continue amlodipine 5 mg, atorvastatin 40mg daily * BP elevated, but stable at 152/78 Diabetes * A1c 7.23 Mar 2020 * Home regimen of 50 units of Lantus subcutaneously twice daily and 10 units of aspart * Transition to 35 twice daily of Lantus * SSI with a correction factor of 18 and a CHO ratio of 8 -- will tighten carb ratio and continue to monitor Depression/Anxiety * Continue sertraline 50 mg every morning * May benefit from additional anxiety medication if acute shortness of breath related to possible anxiety about his CAD Sleep apnea * Does not use CPAP at home -- to further discuss with patient regarding importance and would rec follow up outpt Elevated procalcitonin * Given a dose of vancomycin and cefepime in the ED, no further indication for antibiotics at present. * Follow-up blood cultures DVT Proph * Heparin while inpatient Dispo: HD this afternoon. Likely d/c in AM if breathing remains stable (currently 92% on RA) (2) CKD (chronic kidney disease), stage V: (3) (HFpEF) heart failure with preserved ejection fraction: (4) BPH (benign prostatic hyperplasia): (5) Depression: (6) CAD (coronary artery disease): (7) Diabetes mellitus type 2 in obese: (8) Hypercholesterolemia: (9) Sleep apnea: (10) HTN (hypertension): Admission and Anticipated Discharge Date Admission Date: May 16, 2020 Supervising Physician Co-Signing Physician Notes Attending Attestation: Chart reviewed in detail, care plan d/w MARGARET Cheema. I agree w/ the roman components of her documentation. 70yo male - known CAD, ESRD on HD, PAF/flutter, T2DM, HTN - presented with dyspnea. Thought initially due to volume overload. Initial trop neg; now 3.5. Although no chest pain his dyspnea could have been anginal equivalent. Thus, will Rx for ACS with heparin infusion. Echo. Cards consult in am. Nephro consult for HD management. Tele. Vitals stable at this time. Cont all usual cardiac meds, aspirin, etc. Serial trops. Elliot Wagner MD Subjective Patient evaluated this morning. Breathing symptoms have resolved and saturating well on room air. Cough chronic from exposure to limestone. No shortness of breath, chest pain, fever, chills, abdominal pain, nausea, vomiting, dysuria at this time. Has not moved bowels, but just got miralax. States he had BM prior to calling EMS yesterday. Plans for HD today, but admits he just took lasix and will probably be in the bathroom prior to dialysis and wanted to let nursing staff know. Plans for discharge tomorrow if labs/breathing remain stable and then will resume his usual HD scheduled, as previously missed due to COVID. Review of Systems Review of Systems: All systems reviewed & are unremarkable except as noted in HPI & below Physical Exam Constitutional: WD/WN, vitals as above comfortable; no acute distress Eyes: + anicteric sclerae and PERRL ENMT: mmm Neck: normal visual inspection and trachea midline Respiratory: normal respiratory effort; no labored breathing and no audible wheezes Auscultation: + diminished lung sounds and + crackles (fine crackles (chronic per patient)) Cardiovascular: Rate/Rhythm: regular rate and regular rhythm Vessels: no JVD Extremities: + AV fistula (R forearm (+bruit)); no edema Gastrointestinal (Abdomen): Inspection/Auscultation: + abdomen distended and normal bowel sounds Percussion/Palpation: abdomen nontender, no guarding and abdomen not rigid Musculoskeletal: no cyanosis or clubbing, extremities motor strength 5/5 Skin: warm, dry Neurologic: PERRL, EOMI, accommodation nl, no face palsy, no dysarthria Psychiatric: Orientation: alert and oriented x 3 Lymphatic: no cervical or axillary lymphadenopathy Results & Data Results & Data ([facility]) Vital Signs (Past 12 Hours) Vital Signs Temp Pulse Pulse Resp BP BP Pulse Ox 05/17/20 07:10 36.5 C 52 L 18 152/78 H 92 05/17/20 02:03 36.4 C L 60 18 168/80 H 94 05/17/20 01:00 49 L 22 154/65 H 93 05/17/20 00:30 64 14 155/71 H 97 05/17/20 00:00 59 L 22 141/79 H 96 05/16/20 23:30 62 14 151/87 H 96 05/16/20 23:00 63 15 161/73 H 97 05/16/20 22:30 65 18 142/69 H 97 05/16/20 22:00 68 22 137/69 95 05/16/20 21:30 66 24 136/70 95 05/16/20 21:00 72 20 151/72 H 96 05/16/20 20:30 77 20 153/75 H 95 05/16/20 20:04 104 H 95 05/16/20 19:56 88 L Laboratory Results 05/17/20 05/17/20 05/17/20 Range/Units 05:19 05:19 04:00 WBC 8.19 (4.8-10.8) K/uL RBC 4.18 L (4.7-6.1) M/uL Hgb 13.0 L (14.0-18.0) g/dL Hct 39.6 L (42-52) % MCV 94.7 (80-100) fL MCH 31.1 (25-34) pg MCHC 32.8 (32-36) g/dL RDW Std Deviation 52.3 H (36.4-46.3) fL RDW Coeff of Atif 15.3 H (11.5-14.5) % Plt Count 211 (130-400) K/uL MPV 11.0 H (7.4-10.4) fL Immature Gran % (Auto) 0.2 % Neut % (Auto) 90.8 % Lymph % (Auto) 7.8 % [place] % (Auto) 0.9 % Eos % (Auto) 0.2 % Baso % (Auto) 0.1 % Neut # (Auto) 7.43 H (1.4-6.5) K/uL Lymph # (Auto) 0.64 L (1.2-3.4) K/uL [place] # (Auto) 0.07 L (0.11-0.59) K/uL Eos # (Auto) 0.02 (0-0.5) K/uL Baso # (Auto) 0.01 (0-0.2) K/uL Immature Gran # (Auto) 0.02 (0.00-0.02) K/uL PT (9.0-12.0) Seconds INR (0.9-1.1) APTT (21.0-31.0) Seconds PTT Ratio VBG pH (7.36-7.41) VBG pCO2 (38-50) mmHg VBG pO2 mmHg VBG HCO3 mmol/L VBG O2 Saturation % VBG Base Excess mEq/L Barometric Pressure mm/Hg Sodium 139 (136-145) mmol/L Potassium 5.0 D (3.5-5.1) mmol/L Chloride 104 (98-107) mmol/L Carbon Dioxide 26 (21-32) mmol/L Anion Gap 9.0 (3-11) BUN 86 H (7-18) mg/dl Creatinine 6.97 H* D (0.6-1.4) mg/dl Est Cr Clr Drug Dosing 13.7 ml/min Est GFR ( Amer) 8.5 Est GFR (Non-Af Amer) 7.4 BUN/Creatinine Ratio 12.3 (10-20) Glucose 228 H (70-99) mg/dl POC Glucose (70-99) mg/dl Lactate (0.4-2.0) mmol/L Calcium 9.0 (8.5-10.1) mg/dl Magnesium (1.8-2.4) mg/dl Total Bilirubin 0.3 (0.2-1) mg/dl AST 19 (15-37) U/L ALT 16 (12-78) U/L Alkaline Phosphatase 58 (45-117) U/L Troponin I (0-0.045) ng/ml NT-Pro-B Natriuret Pep (0-900) pg/ml Total Protein 7.9 (6.4-8.2) gm/dl Albumin 3.5 (3.4-5.0) gm/dl Globulin 4.4 H (2.5-4.0) gm/dl Albumin/Globulin Ratio 0.8 L (0.9-2) Procalcitonin (0-0.5) ng/ml Urine Color Urine Appearance (Clear) Urine pH (4.5-7.5) Ur Specific [place] (1.000-1.030) Urine Protein (Negative) Urine Glucose (UA) (Negative) Urine Ketones (Negative) Urine Blood (Negative) Urine Nitrite (Negative) Urine Bilirubin (Negative) Urine Urobilinogen (Negative) Ur Leukocyte Esterase (Negative) Urine WBC (Auto) (0-5) /hpf Urine RBC (Auto) (0-4) /hpf U Hyaline Cast (Auto) (0-5) /lpf U Epithel Cells (Auto) (0-5) /lpf Urine Bacteria (Auto) (Negative) Nasal Screen MRSA (PCR) Negative (Negative) COVID-19 Eval Order Influ A Molecular Assay (Negative) Influ B Molecular Assay (Negative) SARS-CoV-2, RNA, NAAT (NEGATIVE) 05/17/20 05/16/20 05/16/20 Range/Units 02:09 21:47 21:10 WBC (4.8-10.8) K/uL RBC (4.7-6.1) M/uL Hgb (14.0-18.0) g/dL Hct (42-52) % MCV (80-100) fL MCH (25-34) pg MCHC (32-36) g/dL RDW Std Deviation (36.4-46.3) fL RDW Coeff of Atif (11.5-14.5) % Plt Count (130-400) K/uL MPV (7.4-10.4) fL Immature Gran % (Auto) % Neut % (Auto) % Lymph % (Auto) % [place] % (Auto) % Eos % (Auto) % Baso % (Auto) % Neut # (Auto) (1.4-6.5) K/uL Lymph # (Auto) (1.2-3.4) K/uL [place] # (Auto) (0.11-0.59) K/uL Eos # (Auto) (0-0.5) K/uL Baso # (Auto) (0-0.2) K/uL Immature Gran # (Auto) (0.00-0.02) K/uL PT (9.0-12.0) Seconds INR (0.9-1.1) APTT (21.0-31.0) Seconds PTT Ratio VBG pH (7.36-7.41) VBG pCO2 (38-50) mmHg VBG pO2 mmHg VBG HCO3 mmol/L VBG O2 Saturation % VBG Base Excess mEq/L Barometric Pressure mm/Hg Sodium (136-145) mmol/L Potassium (3.5-5.1) mmol/L Chloride (98-107) mmol/L Carbon Dioxide (21-32) mmol/L Anion Gap (3-11) BUN (7-18) mg/dl Creatinine (0.6-1.4) mg/dl Est Cr Clr Drug Dosing ml/min Est GFR ( Amer) Est GFR (Non-Af Amer) BUN/Creatinine Ratio (10-20) Glucose (70-99) mg/dl POC Glucose 278 H (70-99) mg/dl Lactate 1.5 (0.4-2.0) mmol/L Calcium (8.5-10.1) mg/dl Magnesium (1.8-2.4) mg/dl Total Bilirubin (0.2-1) mg/dl AST (15-37) U/L ALT (12-78) U/L Alkaline Phosphatase (45-117) U/L Troponin I (0-0.045) ng/ml NT-Pro-B Natriuret Pep (0-900) pg/ml Total Protein (6.4-8.2) gm/dl Albumin (3.4-5.0) gm/dl Globulin (2.5-4.0) gm/dl Albumin/Globulin Ratio (0.9-2) Procalcitonin (0-0.5) ng/ml Urine Color Urine Appearance (Clear) Urine pH (4.5-7.5) Ur Specific [place] (1.000-1.030) Urine Protein (Negative) Urine Glucose (UA) (Negative) Urine Ketones (Negative) Urine Blood (Negative) Urine Nitrite (Negative) Urine Bilirubin (Negative) Urine Urobilinogen (Negative) Ur Leukocyte Esterase (Negative) Urine WBC (Auto) (0-5) /hpf Urine RBC (Auto) (0-4) /hpf U Hyaline Cast (Auto) (0-5) /lpf U Epithel Cells (Auto) (0-5) /lpf Urine Bacteria (Auto) (Negative) Nasal Screen MRSA (PCR) (Negative) COVID-19 Eval Order Influ A Molecular Assay Negative (Negative) Influ B Molecular Assay Negative (Negative) SARS-CoV-2, RNA, NAAT (NEGATIVE) 05/16/20 05/16/20 05/16/20 Range/Units 20:00 19:56 19:56 WBC (4.8-10.8) K/uL RBC (4.7-6.1) M/uL Hgb (14.0-18.0) g/dL Hct (42-52) % MCV (80-100) fL MCH (25-34) pg MCHC (32-36) g/dL RDW Std Deviation (36.4-46.3) fL RDW Coeff of Atif (11.5-14.5) % Plt Count (130-400) K/uL MPV (7.4-10.4) fL Immature Gran % (Auto) % Neut % (Auto) % Lymph % (Auto) % [place] % (Auto) % Eos % (Auto) % Baso % (Auto) % Neut # (Auto) (1.4-6.5) K/uL Lymph # (Auto) (1.2-3.4) K/uL [place] # (Auto) (0.11-0.59) K/uL Eos # (Auto) (0-0.5) K/uL Baso # (Auto) (0-0.2) K/uL Immature Gran # (Auto) (0.00-0.02) K/uL PT (9.0-12.0) Seconds INR (0.9-1.1) APTT (21.0-31.0) Seconds PTT Ratio VBG pH (7.36-7.41) VBG pCO2 (38-50) mmHg VBG pO2 mmHg VBG HCO3 mmol/L VBG O2 Saturation % VBG Base Excess mEq/L Barometric Pressure mm/Hg Sodium (136-145) mmol/L Potassium (3.5-5.1) mmol/L Chloride (98-107) mmol/L Carbon Dioxide (21-32) mmol/L Anion Gap (3-11) BUN (7-18) mg/dl Creatinine (0.6-1.4) mg/dl Est Cr Clr Drug Dosing ml/min Est GFR ( Amer) Est GFR (Non-Af Amer) BUN/Creatinine Ratio (10-20) Glucose (70-99) mg/dl POC Glucose (70-99) mg/dl Lactate (0.4-2.0) mmol/L Calcium (8.5-10.1) mg/dl Magnesium (1.8-2.4) mg/dl Total Bilirubin (0.2-1) mg/dl AST (15-37) U/L ALT (12-78) U/L Alkaline Phosphatase (45-117) U/L Troponin I (0-0.045) ng/ml NT-Pro-B Natriuret Pep (0-900) pg/ml Total Protein (6.4-8.2) gm/dl Albumin (3.4-5.0) gm/dl Globulin (2.5-4.0) gm/dl Albumin/Globulin Ratio (0.9-2) Procalcitonin (0-0.5) ng/ml Urine Color Yellow Urine Appearance Clear (Clear) Urine pH 6.5 (4.5-7.5) Ur Specific [place] 1.018 (1.000-1.030) Urine Protein 1+ H (Negative) Urine Glucose (UA) 2+ H (Negative) Urine Ketones Negative (Negative) Urine Blood Negative (Negative) Urine Nitrite Negative (Negative) Urine Bilirubin Negative (Negative) Urine Urobilinogen Negative (Negative) Ur Leukocyte Esterase Negative (Negative) Urine WBC (Auto) 0 (0-5) /hpf Urine RBC (Auto) 0-4 (0-4) /hpf U Hyaline Cast (Auto) 1-5 (0-5) /lpf U Epithel Cells (Auto) 0-5 (0-5) /lpf Urine Bacteria (Auto) Negative (Negative) Nasal Screen MRSA (PCR) (Negative) COVID-19 Eval [facility] A Molecular Assay (Negative) Influ B Molecular Assay (Negative) SARS-CoV-2, RNA, NAAT NEGATIVE (NEGATIVE) 05/16/20 05/16/20 05/16/20 Range/Units 19:53 19:53 19:53 WBC (4.8-10.8) K/uL RBC (4.7-6.1) M/uL Hgb (14.0-18.0) g/dL Hct (42-52) % MCV (80-100) fL MCH (25-34) pg MCHC (32-36) g/dL RDW Std Deviation (36.4-46.3) fL RDW Coeff of Atif (11.5-14.5) % Plt Count (130-400) K/uL MPV (7.4-10.4) fL Immature Gran % (Auto) % Neut % (Auto) % Lymph % (Auto) % [place] % (Auto) % Eos % (Auto) % Baso % (Auto) % Neut # (Auto) (1.4-6.5) K/uL Lymph # (Auto) (1.2-3.4) K/uL [place] # (Auto) (0.11-0.59) K/uL Eos # (Auto) (0-0.5) K/uL Baso # (Auto) (0-0.2) K/uL Immature Gran # (Auto) (0.00-0.02) K/uL PT (9.0-12.0) Seconds INR (0.9-1.1) APTT (21.0-31.0) Seconds PTT Ratio VBG pH 7.35 L (7.36-7.41) VBG pCO2 50 (38-50) mmHg VBG pO2 41 mmHg VBG HCO3 27 mmol/L VBG O2 Saturation 71.0 % VBG Base Excess 0.8 mEq/L Barometric Pressure 733.2 mm/Hg Sodium (136-145) mmol/L Potassium (3.5-5.1) mmol/L Chloride (98-107) mmol/L Carbon Dioxide (21-32) mmol/L Anion Gap (3-11) BUN (7-18) mg/dl Creatinine (0.6-1.4) mg/dl Est Cr Clr Drug Dosing ml/min Est GFR ( Amer) Est GFR (Non-Af Amer) BUN/Creatinine Ratio (10-20) Glucose (70-99) mg/dl POC Glucose (70-99) mg/dl Lactate 2.5 H* (0.4-2.0) mmol/L Calcium (8.5-10.1) mg/dl Magnesium (1.8-2.4) mg/dl Total Bilirubin (0.2-1) mg/dl AST (15-37) U/L ALT (12-78) U/L Alkaline Phosphatase (45-117) U/L Troponin I (0-0.045) ng/ml NT-Pro-B Natriuret Pep (0-900) pg/ml Total Protein (6.4-8.2) gm/dl Albumin (3.4-5.0) gm/dl Globulin (2.5-4.0) gm/dl Albumin/Globulin Ratio (0.9-2) Procalcitonin 0.62 H (0-0.5) ng/ml Urine Color Urine Appearance (Clear) Urine pH (4.5-7.5) Ur Specific [place] (1.000-1.030) Urine Protein (Negative) Urine Glucose (UA) (Negative) Urine Ketones (Negative) Urine Blood (Negative) Urine Nitrite (Negative) Urine Bilirubin (Negative) Urine Urobilinogen (Negative) Ur Leukocyte Esterase (Negative) Urine WBC (Auto) (0-5) /hpf Urine RBC (Auto) (0-4) /hpf U Hyaline Cast (Auto) (0-5) /lpf U Epithel Cells (Auto) (0-5) /lpf Urine Bacteria (Auto) (Negative) Nasal Screen MRSA (PCR) (Negative) COVID-19 Eval Order Influ A Molecular Assay (Negative) Influ B Molecular Assay (Negative) SARS-CoV-2, RNA, NAAT (NEGATIVE) 05/16/20 05/16/20 05/16/20 Range/Units 19:53 19:53 19:53 WBC 9.71 (4.8-10.8) K/uL RBC 4.19 L (4.7-6.1) M/uL Hgb 13.2 L (14.0-18.0) g/dL Hct 39.6 L (42-52) % MCV 94.5 (80-100) fL MCH 31.5 (25-34) pg MCHC 33.3 (32-36) g/dL RDW Std Deviation 52.1 H (36.4-46.3) fL RDW Coeff of Atif 15.2 H (11.5-14.5) % Plt Count 215 (130-400) K/uL MPV 10.9 H (7.4-10.4) fL Immature Gran % (Auto) 0.2 % Neut % (Auto) 77.8 % Lymph % (Auto) 12.8 % [place] % (Auto) 5.7 % Eos % (Auto) 3.3 % Baso % (Auto) 0.2 % Neut # (Auto) 7.56 H (1.4-6.5) K/uL Lymph # (Auto) 1.24 (1.2-3.4) K/uL [place] # (Auto) 0.55 (0.11-0.59) K/uL Eos # (Auto) 0.32 (0-0.5) K/uL Baso # (Auto) 0.02 (0-0.2) K/uL Immature Gran # (Auto) 0.02 (0.00-0.02) K/uL PT 10.9 (9.0-12.0) Seconds INR 1.0 (0.9-1.1) APTT 28.9 (21.0-31.0) Seconds PTT Ratio 1.0 VBG pH (7.36-7.41) VBG pCO2 (38-50) mmHg VBG pO2 mmHg VBG HCO3 mmol/L VBG O2 Saturation % VBG Base Excess mEq/L Barometric Pressure mm/Hg Sodium 138 (136-145) mmol/L Potassium 4.2 (3.5-5.1) mmol/L Chloride 101 (98-107) mmol/L Carbon Dioxide 25 (21-32) mmol/L Anion Gap 12.0 H (3-11) BUN 90 H (7-18) mg/dl Creatinine 7.60 H* (0.6-1.4) mg/dl Est Cr Clr Drug Dosing 12.7 ml/min Est GFR ( Amer) 7.7 Est GFR (Non-Af Amer) 6.6 BUN/Creatinine Ratio 11.8 (10-20) Glucose 275 H (70-99) mg/dl POC Glucose (70-99) mg/dl Lactate (0.4-2.0) mmol/L Calcium 8.5 (8.5-10.1) mg/dl Magnesium 2.6 H (1.8-2.4) mg/dl Total Bilirubin 0.3 (0.2-1) mg/dl AST 15 (15-37) U/L ALT 20 (12-78) U/L Alkaline Phosphatase 63 (45-117) U/L Troponin I 0.030 (0-0.045) ng/ml NT-Pro-B Natriuret Pep 1170 H (0-900) pg/ml Total Protein 7.7 (6.4-8.2) gm/dl Albumin 3.5 (3.4-5.0) gm/dl Globulin 4.2 H (2.5-4.0) gm/dl Albumin/Globulin Ratio 0.8 L (0.9-2) Procalcitonin (0-0.5) ng/ml Urine Color Urine Appearance (Clear) Urine pH (4.5-7.5) Ur Specific [place] (1.000-1.030) Urine Protein (Negative) Urine Glucose (UA) (Negative) Urine Ketones (Negative) Urine Blood (Negative) Urine Nitrite (Negative) Urine Bilirubin (Negative) Urine Urobilinogen (Negative) Ur Leukocyte Esterase (Negative) Urine WBC (Auto) (0-5) /hpf Urine RBC (Auto) (0-4) /hpf U Hyaline Cast (Auto) (0-5) /lpf U Epithel Cells (Auto) (0-5) /lpf Urine Bacteria (Auto) (Negative) Nasal Screen MRSA (PCR) (Negative) COVID-19 Eval Order Influ A Molecular Assay (Negative) Influ B Molecular Assay (Negative) SARS-CoV-2, RNA, NAAT (NEGATIVE) PG Care Time/CCT Total # of Minutes Spent Total Time Spent with Patient: Total time spent is greater than 50% in coordination of care (as documented) at patient's floor/unit and/or counseling patient: Coding Level of Care Code 24472 Subseq Hosp Care Lvl 3 Diagnoses End-stage renal disease on hemodialysis N18.6; Z99.2 CKD (chronic kidney disease), stage V N18.5 (HFpEF) heart failure with preserved ejection fraction I50.30 BPH (benign prostatic hyperplasia) N40.0 Lower urinary tract symptom presence: symptoms absent Depression F33.9 Active/Remission status: remission status unspecified Depression Type: major depressive disorder Major depression recurrence: recurrent CAD (coronary artery disease) I25.10 Associated angina: without angina Coronary Disease-Associated Artery/Lesion type: [place] artery [place] vs. transplanted heart: [place] heart Diabetes mellitus type 2 in obese E11.69; E66.9 Hypercholesterolemia E78.00 Sleep apnea G47.30 Sleep apnea type: unspecified type HTN (hypertension) I10 Hypertension type: essential hypertension (1) BPH (benign prostatic hyperplasia) Lower urinary tract symptom presence: symptoms absent Qualified Code(s): N40.0 - Benign prostatic hyperplasia without lower urinary tract symptoms (2) Sleep apnea Sleep apnea type: unspecified type Qualified Code(s): G47.30 - Sleep apnea, unspecified (3) CAD (coronary artery disease) Associated angina: without angina Coronary Disease-Associated Artery/Lesion type: [place] artery [place] vs. transplanted heart: [place] heart Qualified Code(s): I25.10 - Atherosclerotic heart disease of [place] coronary artery without angina pectoris (4) Depression Active/Remission status: remission status unspecified Depression Type: major depressive disorder Major depression recurrence: recurrent Qualified Code(s): F33.9 - Major depressive disorder, recurrent, unspecified (5) HTN (hypertension) Hypertension type: essential hypertension Qualified Code(s): I10 - Essential (primary) hypertension
[2020-05-17] MEDS: TAMSULOSIN HCL 0.4 MG CAP PO SCH (08:25)
[2020-05-17] MEDS: ASPIRIN 81 MG ECTAB PO SCH (08:25)
[2020-05-17] MEDS: CLOPIDOGREL BISULFATE 75 MG TAB PO SCH (08:25)
[2020-05-17] MEDS: amLODIPine BESYLATE 5 MG TAB PO SCH (08:25)
[2020-05-17] MEDS: SEVELAMER HCL 800 MG TABLET PO SCH ×3 (08:26→18:03)
[2020-05-17] MEDS: POLYETHYLENE (MIRALAX) 17 GM PACK PO SCH ×2 (08:26→21:26)
[2020-05-17] MEDS ORDERED: SODIUM CHLORIDE 0.9% 1000ML 1,000 ML IV PRN (08:42)
[2020-05-17] MEDS ORDERED: HEPARIN SOD (PORCINE) 1000 UNIT/ML 10 ML VIAL IV ONE (09:30)
[2020-05-17] MEDS: HEPARIN SOD (PORCINE) 1000 UNIT/ML 10 ML VIAL IV SCH (12:03)
--- NOTE | 2020-05-17 13:22 | Nephrology Consultation ---
Date of Consultation May 17, 2020 Assessment & Plan (1) End-stage renal disease (ESRD): HD TTS. Emergent HD coordinated today for volume overload. Missed treatment yesterday due to holiday schedule. Dialyzes via a right brachiocephalic AV fistula. Blood flows have been appropriate, typically 450. 180 Optiflux dialyzer. 3K bath. Electrolytes controlled. Orders for HD were entered into the EMR today and reviewed with the HD nurse. I personally reviewed his chest x-ray. He does not have significant interstitial edema on this study. Pulmonary vascular congestion can be appreciated. UF goal get for 3.5-4 L. EDW has been 122 kg. CKD (chronic kidney disease), stage V: Attributed to diabetes and hypertension. Dialysis dependent. Unfortunately does not make a significant amount of urine. Inter dialytic weight gains have been excessive. The importance of of a renal diet and daily fluid restriction was again stressed in detail today. Remains on Renvela as a phosphate binder. She be on a low phosphorus diet. Anemia: Chronic, stable. No need for additional MAYLIN therapy at this time. BP controlled. Tolerating currently therapy well. No evidence of ACS on assessment. Medications appropriately dosed for kidney function. (2) Secondary hyperparathyroidism of renal origin: (3) (HFpEF) heart failure with preserved ejection fraction: (4) CAD (coronary artery disease): (5) HTN (hypertension): History of Present Illness Reason for Consultation: ESRD Requesting Physician: Elliot Wagner Attending Physician: Elliot Wagner History of Present Illness Mr. Angel Solorio is a 70-year-old male with end-stage renal disease on [facility] hemodialysis in-center at [facility]. Kidney disease has been attributed to diabetes mellitus and hypertension. He has been on hemodialysis for approximately 2 years. Angel dialyzes on a TTS schedule. Per holiday schedule, his Monday treatment was rescheduled to today. He dialyzes for 4 hours with a 180 Optiflux. Estimated dry weight has been 122 kg. His last hemodialysis treatment was on . Angel left the treatment at 122.5 kg. Ultrafiltration is often limited by significant cramping during treatment. IDGW have been consistently high though recently improved. Patient is listed for transplant through the [facility]. His medical history is notable for coronary artery disease with prior PCI, heart failure with preserved ejection fraction, intermittent atrial fibrillation / atrial flutter with AV node dysfunction, as well obstructive sleep apnea. He has undergone recent evaluation the cardiology clinic for his atrial arrhythmia and bradycardia. Laboratory studies have been notable for uncontrolled hyperphosphatemia. Otherwise electrolytes have been appropriate. Angel was recently admitted to [facility] in January and March with volume overload. Yesterday, he developed acute onset chest discomfort while at rest. Symptoms improved in the ER following treatment with dexamethasone. Angel describes tightness and difficulty taking a deep breath similar to prior flares of non-cardiac chest pain. Allergies Allergy/AdvReac Type Severity Reaction Status Date / Time ragweed pollen Allergy Mild [place] Verified 05/16/20 20:03 [place] Complexes Allergy Unknown rash from Verified 05/16/20 20:03 metal Home Medications Medication Instructions Recorded Confirmed Type albuterol sulfate 2 puff INHALATION Q6H PRN 01/06/19 05/16/20 History furosemide [Lasix] 80 mg PO BID 01/06/19 05/16/20 History insulin aspart U-100 [Novolog 10 unit SUBCUT AC 01/06/19 05/16/20 History PenFill U-100 Insulin] loratadine 10 mg PO DAILY PRN 01/06/19 05/16/20 History sertraline 50 mg PO QAM PRN 01/06/19 05/16/20 History tamsulosin 0.4 mg PO QAM 01/06/19 05/16/20 History Lantus Solostar U-100 Insulin 50 unit SUBCUT BID 03/06/19 05/16/20 History aspirin [Aspir-81] 81 mg PO DAILY 03/06/19 05/16/20 History clopidogrel [Plavix] 75 mg PO DAILY 03/06/19 05/16/20 History ProRenal 1 tab PO QPM 09/26/19 05/16/20 History sevelamer carbonate [Renvela] 800 mg PO TIDM 09/26/19 05/16/20 History amlodipine 10 mg tablet 5 mg PO QAM tab 12/18/19 05/16/20 History clonidine HCl 0.1 mg tablet 0.1 mg PO DIRECTED 12/18/19 05/16/20 History atorvastatin 40 mg PO PM #30 tab 12/27/19 05/16/20 Rx nitroglycerin [Nitrostat] 0.4 mg SUBLINGUAL UD PRN #20 tab 12/27/19 05/16/20 Rx carvedilol [Coreg] 6.25 mg PO BID 03/30/20 05/16/20 History cholecalciferol (vitamin D3) 0 mcg PO MOWEFR 05/16/20 05/16/20 History [Vitamin D3] Patient History Medical History Abnormal abdominal CT scan Anemia CAD (coronary artery disease) s/p stent 2018 CHF exacerbation Chronic kidney disease, stage 4 (severe) CKD (chronic kidney disease) Stage 4 Diabetes Dyslipidemia Elevated troponin Elevated troponin HTN (hypertension) Hypoxia Leukocytosis Lower abdominal pain Orthostatic dizziness Paroxysmal atrial fibrillation Secondary hyperparathyroidism of renal origin Sinus node dysfunction Sleep apnea does not use CPAP Surgical History AV fistula History of loop recorder Implanted 05/01/2019 Family History Other Hypertension Social History Smoking Status: Former smoker Tobacco Type: Cigarettes Cigarettes Per Day: 10; Second Hand Exposure: No; Hx Alcohol Use: Yes Alcohol type: beer and wine Hx Substance Use: No Preferred Language: Icelandic Communication Ability: Effective Cooperative Manager Required: No Beliefs That Will Affect Care: None marital status: Current Living Situation: Alone How many Children do You have: 0 Other Information That Helps Us Care for You: No Feels Safe at Home: Yes Safety Concerns: Feels Safe At This Time Assistive Devices: None Assistive Devices Comment: pt has walker, cane and O2 at home but does not use it Review of Systems Review of Systems: All systems reviewed & are unremarkable except as noted in HPI & below Physical Exam Constitutional: well developed; no acute distress Eyes: no scleral abnormality and no corneal abnormality ENMT: Mouth: no oral mucosal abnormality and oral mucous membranes not dry Neck: normal visual inspection and trachea midline Respiratory: normal respiratory effort Auscultation: lungs clear to auscultation bilaterally Cardiovascular: Rate/Rhythm: regular rate Heart Sounds: normal S1, normal S2 and + murmur Extremities: + AV fistula; no edema Gastrointestinal (Abdomen): Inspection/Auscultation: + abdomen distended Percussion/Palpation: abdomen soft obese Musculoskeletal: Extremities: no cyanosis and no clubbing Skin: normal turgor; no lesions Neurologic: Motor/Sensory: no tremor and no asterixis Psychiatric: Orientation: alert and oriented x 3 Results & Data ([facility]) Vital Signs (Past 12 Hours) Vital Signs Temp Pulse Pulse Pulse Resp BP BP 05/17/20 12:43 53 L 148/72 H 05/17/20 12:07 57 L 144/69 H 05/17/20 12:02 37.0 C 56 L 05/17/20 07:10 36.5 C 52 L 18 152/78 H 05/17/20 02:03 36.4 C L 60 18 168/80 H Pulse Ox 05/17/20 12:43 05/17/20 12:07 05/17/20 12:02 05/17/20 07:10 92 05/17/20 02:03 94 Laboratory Results Laboratory Results - last 24 hr 05/16/20 05/16/20 05/16/20 19:53 19:53 19:53 WBC 9.71 RBC 4.19 L Hgb 13.2 L Hct 39.6 L MCV 94.5 MCH 31.5 MCHC 33.3 RDW Std Deviation 52.1 H RDW Coeff of Atif 15.2 H Plt Count 215 MPV 10.9 H Immature Gran % (Auto) 0.2 Neut % (Auto) 77.8 Lymph % (Auto) 12.8 [place] % (Auto) 5.7 Eos % (Auto) 3.3 Baso % (Auto) 0.2 Neut # (Auto) 7.56 H Lymph # (Auto) 1.24 [place] # (Auto) 0.55 Eos # (Auto) 0.32 Baso # (Auto) 0.02 Immature Gran # (Auto) 0.02 PT 10.9 INR 1.0 APTT 28.9 PTT Ratio 1.0 VBG pH VBG pCO2 VBG pO2 VBG HCO3 VBG O2 Saturation VBG Base Excess Barometric Pressure Sodium 138 Potassium 4.2 Chloride 101 Carbon Dioxide 25 Anion Gap 12.0 H BUN 90 H Creatinine 7.60 H* Est Cr Clr Drug Dosing 12.7 Est GFR ( Amer) 7.7 Est GFR (Non-Af Amer) 6.6 BUN/Creatinine Ratio 11.8 Glucose 275 H POC Glucose Lactate Calcium 8.5 Magnesium 2.6 H Total Bilirubin 0.3 AST 15 ALT 20 Alkaline Phosphatase 63 Troponin I 0.030 NT-Pro-B Natriuret Pep 1170 H Total Protein 7.7 Albumin 3.5 Globulin 4.2 H Albumin/Globulin Ratio 0.8 L Procalcitonin Urine Color Urine Appearance Urine pH Ur Specific [place] Urine Protein Urine Glucose (UA) Urine Ketones Urine Blood Urine Nitrite Urine Bilirubin Urine Urobilinogen Ur Leukocyte Esterase Urine WBC (Auto) Urine RBC (Auto) U Hyaline Cast (Auto) U Epithel Cells (Auto) Urine Bacteria (Auto) Nasal Screen MRSA (PCR) COVID-19 Eval Order Influ A Molecular Assay Influ B Molecular Assay SARS-CoV-2, RNA, NAAT 05/16/20 05/16/20 05/16/20 19:53 19:53 19:53 WBC RBC Hgb Hct MCV MCH MCHC RDW Std Deviation RDW Coeff of Atif Plt Count MPV Immature Gran % (Auto) Neut % (Auto) Lymph % (Auto) [place] % (Auto) Eos % (Auto) Baso % (Auto) Neut # (Auto) Lymph # (Auto) [place] # (Auto) Eos # (Auto) Baso # (Auto) Immature Gran # (Auto) PT INR APTT PTT Ratio VBG pH 7.35 L VBG pCO2 50 VBG pO2 41 VBG HCO3 27 VBG O2 Saturation 71.0 VBG Base Excess 0.8 Barometric Pressure 733.2 Sodium Potassium Chloride Carbon Dioxide Anion Gap BUN Creatinine Est Cr Clr Drug Dosing Est GFR ( Amer) Est GFR (Non-Af Amer) BUN/Creatinine Ratio Glucose POC Glucose Lactate 2.5 H* Calcium Magnesium Total Bilirubin AST ALT Alkaline Phosphatase Troponin I NT-Pro-B Natriuret Pep Total Protein Albumin Globulin Albumin/Globulin Ratio Procalcitonin 0.62 H Urine Color Urine Appearance Urine pH Ur Specific [place] Urine Protein Urine Glucose (UA) Urine Ketones Urine Blood Urine Nitrite Urine Bilirubin Urine Urobilinogen Ur Leukocyte Esterase Urine WBC (Auto) Urine RBC (Auto) U Hyaline Cast (Auto) U Epithel Cells (Auto) Urine Bacteria (Auto) Nasal Screen MRSA (PCR) COVID-19 Eval Order Influ A Molecular Assay Influ B Molecular Assay SARS-CoV-2, RNA, NAAT 05/16/20 05/16/20 05/16/20 19:56 19:56 20:00 WBC RBC Hgb Hct MCV MCH MCHC RDW Std Deviation RDW Coeff of Atif Plt Count MPV Immature Gran % (Auto) Neut % (Auto) Lymph % (Auto) [place] % (Auto) Eos % (Auto) Baso % (Auto) Neut # (Auto) Lymph # (Auto) [place] # (Auto) Eos # (Auto) Baso # (Auto) Immature Gran # (Auto) PT INR APTT PTT Ratio VBG pH VBG pCO2 VBG pO2 VBG HCO3 VBG O2 Saturation VBG Base Excess Barometric Pressure Sodium Potassium Chloride Carbon Dioxide Anion Gap BUN Creatinine Est Cr Clr Drug Dosing Est GFR ( Amer) Est GFR (Non-Af Amer) BUN/Creatinine Ratio Glucose POC Glucose Lactate Calcium Magnesium Total Bilirubin AST ALT Alkaline Phosphatase Troponin I NT-Pro-B Natriuret Pep Total Protein Albumin Globulin Albumin/Globulin Ratio Procalcitonin Urine Color Yellow Urine Appearance Clear Urine pH 6.5 Ur Specific [place] 1.018 Urine Protein 1+ H Urine Glucose (UA) 2+ H Urine Ketones Negative Urine Blood Negative Urine Nitrite Negative Urine Bilirubin Negative Urine Urobilinogen Negative Ur Leukocyte Esterase Negative Urine WBC (Auto) 0 Urine RBC (Auto) 0-4 U Hyaline Cast (Auto) 1-5 U Epithel Cells (Auto) 0-5 Urine Bacteria (Auto) Negative Nasal Screen MRSA (PCR) COVID-19 Eval [facility] Influ A Molecular Assay Influ B Molecular Assay SARS-CoV-2, RNA, NAAT NEGATIVE 05/16/20 05/16/20 05/17/20 21:10 21:47 02:09 WBC RBC Hgb Hct MCV MCH MCHC RDW Std Deviation RDW Coeff of Atif Plt Count MPV Immature Gran % (Auto) Neut % (Auto) Lymph % (Auto) [place] % (Auto) Eos % (Auto) Baso % (Auto) Neut # (Auto) Lymph # (Auto) [place] # (Auto) Eos # (Auto) Baso # (Auto) Immature Gran # (Auto) PT INR APTT PTT Ratio VBG pH VBG pCO2 VBG pO2 VBG HCO3 VBG O2 Saturation VBG Base Excess Barometric Pressure Sodium Potassium Chloride Carbon Dioxide Anion Gap BUN Creatinine Est Cr Clr Drug Dosing Est GFR ( Amer) Est GFR (Non-Af Amer) BUN/Creatinine Ratio Glucose POC Glucose 278 H Lactate 1.5 Calcium Magnesium Total Bilirubin AST ALT Alkaline Phosphatase Troponin I NT-Pro-B Natriuret Pep Total Protein Albumin Globulin Albumin/Globulin Ratio Procalcitonin Urine Color Urine Appearance Urine pH Ur Specific [place] Urine Protein Urine Glucose (UA) Urine Ketones Urine Blood Urine Nitrite Urine Bilirubin Urine Urobilinogen Ur Leukocyte Esterase Urine WBC (Auto) Urine RBC (Auto) U Hyaline Cast (Auto) U Epithel Cells (Auto) Urine Bacteria (Auto) Nasal Screen MRSA (PCR) COVID-19 Eval Order Influ A Molecular Assay Negative Influ B Molecular Assay Negative SARS-CoV-2, RNA, NAAT 05/17/20 05/17/20 05/17/20 04:00 05:19 05:19 WBC 8.19 RBC 4.18 L Hgb 13.0 L Hct 39.6 L MCV 94.7 MCH 31.1 MCHC 32.8 RDW Std Deviation 52.3 H RDW Coeff of Atif 15.3 H Plt Count 211 MPV 11.0 H Immature Gran % (Auto) 0.2 Neut % (Auto) 90.8 Lymph % (Auto) 7.8 [place] % (Auto) 0.9 Eos % (Auto) 0.2 Baso % (Auto) 0.1 Neut # (Auto) 7.43 H Lymph # (Auto) 0.64 L [place] # (Auto) 0.07 L Eos # (Auto) 0.02 Baso # (Auto) 0.01 Immature Gran # (Auto) 0.02 PT INR APTT PTT Ratio VBG pH VBG pCO2 VBG pO2 VBG HCO3 VBG O2 Saturation VBG Base Excess Barometric Pressure Sodium 139 Potassium 5.0 D Chloride 104 Carbon Dioxide 26 Anion Gap 9.0 BUN 86 H Creatinine 6.97 H* D Est Cr Clr Drug Dosing 13.7 Est GFR ( Amer) 8.5 Est GFR (Non-Af Amer) 7.4 BUN/Creatinine Ratio 12.3 Glucose 228 H POC Glucose Lactate Calcium 9.0 Magnesium Total Bilirubin 0.3 AST 19 ALT 16 Alkaline Phosphatase 58 Troponin I NT-Pro-B Natriuret Pep Total Protein 7.9 Albumin 3.5 Globulin 4.4 H Albumin/Globulin Ratio 0.8 L Procalcitonin Urine Color Urine Appearance Urine pH Ur Specific [place] Urine Protein Urine Glucose (UA) Urine Ketones Urine Blood Urine Nitrite Urine Bilirubin Urine Urobilinogen Ur Leukocyte Esterase Urine WBC (Auto) Urine RBC (Auto) U Hyaline Cast (Auto) U Epithel Cells (Auto) Urine Bacteria (Auto) Nasal Screen MRSA (PCR) Negative COVID-19 Eval Order Influ A Molecular Assay Influ B Molecular Assay SARS-CoV-2, RNA, NAAT 05/17/20 05/17/20 07:52 11:23 WBC RBC Hgb Hct MCV MCH MCHC RDW Std Deviation RDW Coeff of Atif Plt Count MPV Immature Gran % (Auto) Neut % (Auto) Lymph % (Auto) [place] % (Auto) Eos % (Auto) Baso % (Auto) Neut # (Auto) Lymph # (Auto) [place] # (Auto) Eos # (Auto) Baso # (Auto) Immature Gran # (Auto) PT INR APTT PTT Ratio VBG pH VBG pCO2 VBG pO2 VBG HCO3 VBG O2 Saturation VBG Base Excess Barometric Pressure Sodium Potassium Chloride Carbon Dioxide Anion Gap BUN Creatinine Est Cr Clr Drug Dosing Est GFR ( Amer) Est GFR (Non-Af Amer) BUN/Creatinine Ratio Glucose POC Glucose 224 H 224 H Lactate Calcium Magnesium Total Bilirubin AST ALT Alkaline Phosphatase Troponin I NT-Pro-B Natriuret Pep Total Protein Albumin Globulin Albumin/Globulin Ratio Procalcitonin Urine Color Urine Appearance Urine pH Ur Specific [place] Urine Protein Urine Glucose (UA) Urine Ketones Urine Blood Urine Nitrite Urine Bilirubin Urine Urobilinogen Ur Leukocyte Esterase Urine WBC (Auto) Urine RBC (Auto) U Hyaline Cast (Auto) U Epithel Cells (Auto) Urine Bacteria (Auto) Nasal Screen MRSA (PCR) COVID-19 Eval Order Influ A Molecular Assay Influ B Molecular Assay SARS-CoV-2, RNA, NAAT Diagnostic Findings CXR personally reviewed. PG Care Time/CCT Total # of Minutes Spent Total Time Spent with Patient: Total time spent is greater than 50% in coordina tion of care (as documented) at patient's floor/unit and/or counseling patient: Coding Level of Care Code 64446 Inpt Consult Level 4 Diagnoses End-stage renal disease (ESRD) N18.6 Secondary hyperparathyroidism of renal origin N25.81 (HFpEF) heart failure with preserved ejection fraction I50.30 CAD (coronary artery disease) I25.10 Coronary Disease-Associated Artery/Lesion type: [place] artery [place] vs. transplanted heart: [place] heart Associated angina: without angina HTN (hypertension) I10 Hypertension type: essential hypertension (1) CAD (coronary artery disease) Coronary Disease-Associated Artery/Lesion type: [place] artery [place] vs. transplanted heart: [place] heart Associated angina: without angina Qualified Code(s): I25.10 - Atherosclerotic heart disease of [place] coronary artery without angina pectoris (2) HTN (hypertension) Hypertension type: essential hypertension Qualified Code(s): I10 - Essential (primary) hypertension
[2020-05-17] MEDS ORDERED: Heparin IV Low Dose *NO* Bolus IV SCH (16:41)
[2020-05-17] MEDS ORDERED: HEPARIN SODIUM/DEXTROSE 25,000 UNITS/500 ML BAG IV SCH (16:45)
[2020-05-17 17:12] LABS: Hepatitis B Surface Ab Quant 20.42 mIU/mL (>or=10mIU/mL Immune); Hepatitis B Surface Antibody Immune
[2020-05-17 17:22] LABS: Hepatitis B Surface Antigen Neg (Neg)
[2020-05-17] MEDS: ATORVASTATIN 40 MG TAB PO SCH (21:17)
[2020-05-17] MEDS: NEPHROCAPS PO SCH (21:18)
--- NOTE | 2020-05-17 21:58 | Electrocardiogram Report ---
Test Reason : Blood Pressure : / mmHG Vent. Rate : 080 BPM Atrial Rate : 080 BPM P-R Int : 210 ms QRS Dur : 124 ms QT Int : 416 ms P-R-T Axes : 031 052 031 degrees QTc Int : 479 ms Sinus rhythm with 1st degree A-V block Non-specific intra-ventricular conduction delay Borderline ECG When compared with ECG of 30-MAR-2020 19:28, No significant change was found Confirmed by Arya Khoury ([id number]) on 05/17/2020 9:58:33 PM Referred By: REFERRED SELF Confirmed By:Arya Khoury
[2020-05-18 01:45] LABS: Partial Thromboplastin Ratio 1.4; Partial Thromboplastin Time 38.3 Seconds (21.0-31.0)
[2020-05-18] MEDS: SEVELAMER HCL 800 MG TABLET PO SCH ×3 (08:00→16:58)
[2020-05-18 08:12] LABS: Partial Thromboplastin Ratio 1.5; Partial Thromboplastin Time 42.8 Seconds (21.0-31.0)
[2020-05-18] MEDS ORDERED: CHOLECALCIFEROL 1,000 UNITS 25 MCG TAB PO SCH (09:00)
--- NOTE | 2020-05-18 09:21 | XCELERA ---
[id number]
--- NOTE | 2020-05-18 09:23 | Cardiology Consultation ---
Date of Consultation May 18, 2020 Assessment & Plan (1) CAD (coronary artery disease): He presented with burning discomfort in his upper chest region with associated dyspnea. Symptoms resolved with dexamethasone administration in the ER. He is currently chest pain free. EKG shows no acute ischemic changes. Troponin was elevated with a peak of 3.54. Echo fortunately shows normal LV systolic function with no regional wall motion abnormalities. The etiology of his symptoms and troponin elevation is unclear. He reports a long-standing history of intermittent chest discomfort and shortness of breath related to prior [place] exposure. He did have a fairly recent catheterization in [facility] which showed patent LAD stents and small jailed second diagonal with 70% ostial stenosis for which medical management was recommended. Since he is currently asymptomatic and cardiac enzymes are trending down, would not pursue invasive evaluation at this time. Recommend having patient ambulate the hallways to ensure he remains asymptomatic. (2) Sinus node dysfunction: He has been bradycardic with a rate as low as the 30s during the admission. He appears asymptomatic with this, but would recommend reducing his beta ginger dose. Can continue to monitor his bradycardia with his loop recorder as an outpatient. (3) Paroxysmal atrial flutter: He has been in sinus rhythm this admission. He has had no recent episodes of the arrhythmia to the best of his knowledge. Recommend reducing his beta ginger dose given his bradycardia, as noted above. His arrhythmia can continue to be monitored with his loop recorder. Patient discussed with Dr. Ch. History of Present Illness Reason for Consultation: Elevated troponin Requesting Physician: Sylvia Cheema PA-C History of Present Illness Mr. Solorio is a 69-year-old male with a past medical history significant for type 2 diabetes, ESRD on hemodialysis, hypertension, dyslipidemia, sleep apnea, diastolic CHF, coronary artery disease s/p mid LAD stents x2 in 2018 and ostial/prox LAD stent in 12/2019, paroxysmal atrial flutter, and sinus node dysfunction s/p implantation of loop recorder on 05/01/19. He was admitted to [facility] in December 2019 with left sided chest discomfort with associated dyspnea. Troponin was mildly elevated with a peak of 0.124. He underwent a stress echo which was abnormal. Subsequent cardiac catheterization revealed a 90% ostial to proximal LAD stenosis, which was stented with a single SOLIS. He was readmitted to [facility] in January 2020 with discomfort in his upper chest, neck, and jaw. His troponin was mildly elevated with a peak of 1. 34. He underwent repeat cardiac catheterization during the admission, which showed widely patent LAD stents, stable 30% distal left main stenosis, and small jailed second diagonal with 70% ostial stenosis. Medical management was recommended. More recently, patient was carrying in groceries on Monday when he developed a burning discomfort in his upper chest with associated dyspnea. He called 911 and was brought to the ER. He was given dexamethasone in the ER, and he states that this relieved his discomfort. He is currently chest pain free. He reports that he was exposed to [place] about 10 years ago, and it settled in the upper portions of his lungs. He states that he has intermittent flares of burning upper chest discomfort and dyspnea due to the [place]. He states that the flares usually occur with changes in weather. He typically calls 911 when he feels any chest discomfort or shortness of breath. He states that up until the "flare" of chest discomfort on Monday, he was feeling well with no symptoms. He did not have dialysis as scheduled on Monday due to the holidays, but he underwent dialysis yesterday while admitted. He notes chronic orthopnea lying flat and always sleeps on a wedge pillow or with the head of his bed elevated. He denies any significant lower extremity edema. He notes intermittent dizziness where he feels as though the room is spinning. He denies lightheadedness, syncope, or near syncope. He has not noted any recent palpitations. He denies abnormal bleeding such as melena, hematochezia, or hematuria. Allergies Allergy/AdvReac Type Severity Reaction Status Date / Time ragweed pollen Allergy Mild [place] Verified 05/16/20 20:03 [place] Complexes Allergy Unknown rash from Verified 05/16/20 20:03 metal Home Medications Medication Instructions Recorded Confirmed Type albuterol sulfate 2 puff INHALATION Q6H PRN 01/06/19 05/16/20 History furosemide [Lasix] 80 mg PO BID 01/06/19 05/16/20 History insulin aspart U-100 [Novolog 10 unit SUBCUT AC 01/06/19 05/16/20 History PenFill U-100 Insulin] loratadine 10 mg PO DAILY PRN 01/06/19 05/16/20 History sertraline 50 mg PO QAM PRN 01/06/19 05/16/20 History tamsulosin 0.4 mg PO QAM 01/06/19 05/16/20 History Lantus Solostar U-100 Insulin 50 unit SUBCUT BID 03/06/19 05/16/20 History aspirin [Aspir-81] 81 mg PO DAILY 03/06/19 05/16/20 History clopidogrel [Plavix] 75 mg PO DAILY 03/06/19 05/16/20 History ProRenal 1 tab PO QPM 09/26/19 05/16/20 History sevelamer carbonate [Renvela] 800 mg PO TIDM 09/26/19 05/16/20 History amlodipine 10 mg tablet 5 mg PO QAM tab 12/18/19 05/16/20 History clonidine HCl 0.1 mg tablet 0.1 mg PO DIRECTED 12/18/19 05/16/20 History atorvastatin 40 mg PO PM #30 tab 12/27/19 05/16/20 Rx nitroglycerin [Nitrostat] 0.4 mg SUBLINGUAL UD PRN #20 tab 12/27/19 05/16/20 Rx carvedilol [Coreg] 6.25 mg PO BID 03/30/20 05/16/20 History Patient History Medical History Abnormal abdominal CT scan Anemia CAD (coronary artery disease) s/p stent 2018 CHF exacerbation Chronic kidney disease, stage 4 (severe) CKD (chronic kidney disease) Stage 4 Diabetes Dyslipidemia Elevated troponin Elevated troponin HTN (hypertension) Hypoxia Leukocytosis Lower abdominal pain Orthostatic dizziness Paroxysmal atrial fibrillation Secondary hyperparathyroidism of renal origin Sinus node dysfunction Sleep apnea does not use CPAP Surgical History AV fistula History of loop recorder Implanted 05/01/2019 Family History Other Hypertension Social History Smoking Status: Former smoker Tobacco Type: Cigarettes Cigarettes Per Day: 10; Second Hand Exposure: No; Hx Alcohol Use: Yes Alcohol type: beer and wine Hx Substance Use: No Preferred Language: Syriac Communication Ability: Effective Lining Finisher Required: No Beliefs That Will Affect Care: None marital status: Current Living Situation: Alone How many Children do You have: 0 Other Information That Helps Us Care for You: No Feels Safe at Home: Yes Safety Concerns: Feels Safe At This Time Assistive Devices: None Assistive Devices Comment: pt has walker, cane and O2 at home but does not use it Review of Systems Review of Systems: All systems reviewed & are unremarkable except as noted in Subjective Physical Exam Physical Exam: Constitutional: Alert, oriented, in no acute distress HEENT: Head is atraumatic and normocephalic. EOMs intact. Sclera non-icteric. Face is symmetric. No perioral cyanosis. Mucous membranes moist Neck: Supple, no JVD Pulmonary: Normal respiratory effort, clear to auscultation throughout Cardiac: Regular, bradycardic, normal S1 and S2, no gallops, no rubs, no murmurs Extremities: Trace lower extremity edema bilaterally. No clubbing or cyanosis. Pulses 2+ and symmetric Abdomen: Obese. Normal bowel sounds, soft, non-tender, no abdominal masses palpated Skin: Normal skin color, turgor, and pigmentation. No rash or skin lesions Neurological: Oriented to person, place, and time Results & Data ([facility]) Vital Signs (Past 12 Hours) Vital Signs Temp Pulse Pulse Resp BP Pulse Ox 05/18/20 07:44 98.2 F 59 L 18 L 18 149/63 H 96 05/18/20 04:00 97.5 F L 44 L 20 148/67 H 92 05/18/20 00:00 97.9 F 53 L 19 130/68 93 Diagnostic Findings EKG shows sinus rhythm with first degree AV block. 80 bpm. Nonspecific intraventricular conduction delay. Echo shows normal LV size, wall motion and systolic function. EF 55-60%. Mild LVH. Mild MR. Compared with study from , no significant change. Telemetry: Sinus bradycardia in the 30s-50s. PG Care Time/CCT Total # of Minutes Spent Total Time Spent with Patient: Total time spent is greater than 50% in coordination of care (as documented) at patient's floor/unit and/or counseling patient: Coding Level of Care Code 44546 Initial Inpt Care Lvl 3 Diagnoses CAD (coronary artery disease) I25.10 Coronary Disease-Associated Artery/Lesion type: [place] artery [place] vs. transplanted heart: [place] heart Associated angina: without angina Sinus node dysfunction I49.5 Paroxysmal atrial flutter I48.92 (1) CAD (coronary artery disease) Coronary Disease-Associated Artery/Lesion type: [place] artery [place] vs. transplanted heart: [place] heart Associated angina: without angina Qualified Code(s): I25.10 - Atherosclerotic heart disease of [place] coronary artery without angina pectoris
[2020-05-18] MEDS: INSULIN ASPART 100 UNITS/ML 3 ML PEN SC SCH ×5 (09:49→19:36)
--- NOTE | 2020-05-18 10:31 | Nephrology Progress Note ---
Date of Service May 18, 2020 Assessment & Plan (1) End-stage renal disease (ESRD): HD TTS. Emergent HD coordinated today for volume overload yesterday. Missed treatment on Monday due to holiday schedule. Dialyzes via a right brachiocephalic AV fistula. Blood flows have been appropriate, typically 450. 180 Optiflux dialyzer. 3K bath. Electrolytes controlled. No need for additional HD today. Plan next treatment tomorrow. EDW has been 122 kg. CKD (chronic kidney disease), stage V: Attributed to diabetes and hypertension. Dialysis dependent. Unfortunately does not make a significant amount of urine. Inter dialytic weight gains have been excessive. The importance of of a renal diet and daily fluid restriction was again stressed in detail. Remains on Renvela as a phosphate binder. She be on a low phosphorus diet. Anemia: Chronic, stable. No need for additional [place] therapy at this time. BP controlled. Tolerating currently therapy well. Troponin elevated. Cardiology consultation and TTE pending. Medications appropriately dosed for kidney function. (2) Secondary hyperparathyroidism of renal origin: (3) (HFpEF) heart failure with preserved ejection fraction: (4) CAD (coronary artery disease): (5) HTN (hypertension): Admission and Anticipated Discharge Date Admission Date: May 16, 2020 Subjective No acute events overnight. No additional dyspnea or chest pain. Tolerated HD well yesterday without complications. Net UF 3.5 L. Review of Systems Review of Systems: All systems reviewed & are unremarkable except as noted in HPI & below Physical Exam Constitutional: well developed; no acute distress Eyes: no scleral abnormality and no corneal abnormality ENMT: Mouth: no oral mucosal abnormality and oral mucous membranes not dry Neck: normal visual inspection and trachea midline Respiratory: normal respiratory effort Auscultation: lungs clear to auscultation bilaterally Cardiovascular: Rate/Rhythm: regular rate Heart Sounds: normal S1, normal S2 and + murmur Extremities: + AV fistula; no edema Gastrointestinal (Abdomen): Inspection/Auscultation: + abdomen distended Percussion/Palpation: abdomen soft Musculoskeletal: Extremities: no cyanosis and no clubbing Skin: normal turgor; no lesions Neurologic: Motor/Sensory: no tremor and no asterixis Psychiatric: Orientation: alert and oriented x 3 Results & Data ([facility]) Vital Signs (Past 12 Hours) Vital Signs Temp Pulse Pulse Resp BP Pulse Ox 05/18/20 07:44 36.8 C 59 L 18 L 18 149/63 H 96 05/18/20 04:00 36.4 C L 44 L 20 148/67 H 92 05/18/20 00:00 36.6 C 53 L 19 130/68 93 Laboratory Results Laboratory Results - last 24 hr 05/17/20 05/17/20 05/17/20 05:19 11:23 16:19 APTT PTT Ratio POC Glucose 224 H Troponin I 3.540 H* Hep Bs Antigen Neg Hep Bs Antibody Immune Hep Bs Antibody, Quant 20.42 05/17/20 05/17/20 05/17/20 16:19 16:52 20:13 APTT PTT Ratio POC Glucose 197 H 181 H Troponin I 3.030 H* Hep Bs Antigen Hep Bs Antibody Hep Bs Antibody, Quant 05/17/20 05/18/20 05/18/20 21:47 01:07 04:18 APTT 38.3 H PTT Ratio 1.4 POC Glucose Troponin I 2.400 H* 1.870 H* Hep Bs Antigen Hep Bs Antibody Hep Bs Antibody, Quant 05/18/20 05/18/20 07:27 07:33 APTT 42.8 H PTT Ratio 1.5 POC Glucose 170 H Troponin I Hep Bs Antigen Hep Bs Antibody Hep Bs Antibody, Quant PG Care Time/CCT Total # of Minutes Spent Total Time Spent with Patient: Total time spent is greater than 50% in coordination of care (as documented) at patient's floor/unit and/or counseling patient: Coding Level of Care Code 99817 Subseq Hosp Care Lvl 3 Diagnoses End-stage renal disease (ESRD) N18.6 Secondary hyperparathyroidism of renal origin N25.81 (HFpEF) heart failure with preserved ejection fraction I50.30 CAD (coronary artery disease) I25.10 Coronary Disease-Associated Artery/Lesion type: [place] artery [place] vs. transplanted heart: [place] heart Associated angina: without angina HTN (hypertension) I10 Hypertension type: essential hypertension (1) CAD (coronary artery disease) Coronary Disease-Associated Artery/Lesion type: [place] artery [place] vs. transplanted heart: [place] heart Associated angina: without angina Qualified Code(s): I25.10 - Atherosclerotic heart disease of [place] coronary artery without angina pectoris (2) HTN (hypertension) Hypertension type: essential hypertension Qualified Code(s): I10 - Essential (primary) hypertension
[2020-05-18] MEDS: INSULIN GLARGINE SOLOSTAR 100 UNITS/ML 3 ML PEN SC SCH ×2 (10:46→19:33)
[2020-05-18] MEDS: carvediloL 6.25 MG TAB PO SCH (11:46)
[2020-05-18] MEDS: POLYETHYLENE (MIRALAX) 17 GM PACK PO SCH ×2 (12:19→20:30)
[2020-05-18] MEDS: cloNIDine HCL 0.1 MG TAB PO SCH ×2 (12:19→21:35)
[2020-05-18] MEDS: TAMSULOSIN HCL 0.4 MG CAP PO SCH (12:21)
[2020-05-18] MEDS: CLOPIDOGREL BISULFATE 75 MG TAB PO SCH (12:21)
[2020-05-18] MEDS: ASPIRIN 81 MG ECTAB PO SCH (12:22)
[2020-05-18] MEDS: amLODIPine BESYLATE 5 MG TAB PO SCH (12:23)
[2020-05-18] MEDS: FUROSEMIDE 80 MG TAB PO SCH ×2 (12:30→16:58)
[2020-05-18 15:22] LABS: Hematocrit (blood only) 37.6 % (42-52); Hemoglobin 12.3 g/dL (14.0-18.0); Mean Corpuscular Hemoglobin 30.8 pg (25-34); Mean Corpuscular Hgb Conc 32.7 g/dL (32-36); Mean Corpuscular Volume 94.2 fL (80-100); Mean Platelet Volume 10.6 fL (7.4-10.4); Platelet Count 194 K/uL (130-400); RDW Coefficient of Variation 15.4 % (11.5-14.5); RDW Standard Deviation 52.5 fL (36.4-46.3); Red Blood Count 3.99 M/uL (4.7-6.1); White Blood Count 9.68 K/uL (4.8-10.8)
[2020-05-18 16:13] LABS: BUN Creatinine Ratio 10.8 (10-20); Calcium 8.6 mg/dl (8.5-10.1); Creatinine Clr Calc Pharmacy 16.8 ml/min; Est GFR (Non-African American) 9.5
--- NOTE | 2020-05-18 16:39 | Discharge Summary ---
Date of Service May 18, 2020 Admission HPI Per Admitting Provider 70-year-old male with a past medical history of paroxysmal atrial flutter, heart failure with preserved ejection fraction, BPH, depression, CAD, DM 2, hypertension, and end-stage renal disease on hemodialysis Monday, , Monday, presents for increasing shortness of breath after missing his scheduled dialysis today due to the holidays scheduled to receive dialysis tomorrow. Patient denies any recent constitutional symptoms including fever/chills, cough, chest pressure, chest pain, headache, nausea, vomiting, abdominal pain, reporting he has been in his normal state of health recently. Today while bringing in the groceries he noticed increasing shortness of breath. He endorses mediastinal chest pain which he states is chronic in nature and waxes and wanes. He states that the symptoms began a number of years ago as he was working with [employer] and inhaled a great amount of dust. Ever since that point he is having continuous mediastinal chest discomfort that waxes and wanes in nature. He does endorse having this to worsening degree today. Upon arrival in the emergency department routine labs were obtained, CBC was within normal limits, INR 1.0, VBG 7.3 //, CMP with a BUN of 90, creatinine of 7.60, glucose of 275, lactate pending, magnesium of 2.6, BNP 1170, pro-Mino of 0.6, urine was negative for infection, Covid negative, flu negative. Chest x-ray demonstrating cardiomegaly without radiographic evidence of CHF, bibasilar airspace opacities likely representing atelectasis. The hospital service was consulted for admission Patient is currently doing well saturating at 95% on 2 L of O2. He will be admitted for further management of his shortness of breath, there is no need for emergent hemodialysis. Dr. Richard confirm dialysis is available tomorrow. All questions were answered no acute concerns Primary Care Provider: Shiv Gallardo MD Principal Diagnosis Chest pain Discharge Exam Constitutional WD/WN, vitals as above Respiratory normal respiratory effort, lungs clear to auscultation Cardiovascular RRR, no murmur, no edema Gastrointestinal (Abdomen) normal bowel sounds, soft, nontender, no hepatosplenomegaly Musculoskeletal no cyanosis or clubbing, extremities motor strength 5/5 Extremities: extremities normal to inspection (symmetric ) Skin no rashes, warm and dry Neurologic moves all extremities and awake Psychiatric A+Ox3, euthymic affect Discharge Data Allergies Allergy/AdvReac Type Severity Reaction Status Date / Time ragweed pollen Allergy Mild [place] Verified 05/21/20 02:09 Kaw Complexes Allergy Unknown rash from Verified 05/21/20 02:09 metal Consultations 05/16/20 21:18 ED Decision to Admit Stat 05/17/20 10:24 Consult Nephrology Routine 05/17/20 16:39 Consult Cardiology Routine Hospital Course (1) Chest pain: 70-year-old male with a past medical history of paroxysmal atrial flutter, heart failure with preserved ejection fraction, BPH, depression, CAD, DM 2, hypertension, and end-stage renal disease on hemodialysis Monday, , Monday, presents for increasing shortness of breath after missing his scheduled dialysis today due to the holidays scheduled to receive dialysis tomorrow. Also with burning discomfort in his upper chest bilaterally. 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 Patient reports he experienced increasing shortness of breath while bringing in his groceries afternoon of admission, otherwise has had no significant constitutional symptoms in the recent days, he has associated mediastinal pain which is chronic in nature from an incident 10 years ago involving [employer]. He states that this pain waxes and wanes. SOB resolved with dexamethasone given in the ER (also given cefepime/vanco but no need to continue at this time). 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 CXR without evidence of congestive changes ECHO with normal left ventricular systolic function, no RWMA, mild concentric left ventricular hypertrophy, mild mitral regurg no significant change from 12/24/2019 ON 05/17 patient had a trop of 3.5 and was started on heparin gtt. Cardiology evaluation today - EKG without acute ischemic change, trop is trending down, Echo with normal LV systolic function and no WMA. Patient had recent cath in January which showed patent LAD stents and small jailed second diagonal with 70% ostial stenosis for which medical management was recommended. At this time, cardiology does not recommend invasive evaluation. Patient denied any recent immobilization or travel, denies swelling in the lower legs or calf pain. His Wells Score for PE was 0. He has no history of VTE Walked with patient in the hallway. He had some mild dyspnea which he reports is baseline for him. When ambulating with nursing this evening he maintained sats of 98%. His upper throat/chest discomfort was soothed with sips of water. Lungs remain clear to auscultation. Patient was discussed with cardiology and they were ok with discharge today. He will follow up with his outside sales professional Dr. Washington (2) Bradycardia: As low as 30s. Looking back through his records it appears he has had bradycardia in the past as well. He is asymptomatic. Cardiology recommended decreasing his carvedilol. Walked with patient in the hallway. His heart rate had appropriate rise into the 70s and remained regular on the monitor. Patient has a loop recorder (3) End-stage renal disease on hemodialysis: Last dialysis 05/17 - will dialyze outpatient tomorrow - let nephro know and they will have him set up for outpatient Paroxysmal atrial flutter * Not on chronic anticoagulation - a flutter was apparently a one time occurrence. * NSR on examination -- NSR on admission with IVCD * No dysrhythmia on monitor BPH * Continue tamsulosin * Low UO in ESRD patient -- per nephrology, patient may just not make very much urine Coronary artery disease * History of stenting * Continue clopidogrel 75 mg, ASA 81mg, carvedilol decreased as above * Continue atorvastatin 40 mg p.o. every afternoon Hypertension/Hyperlipidemia * Continue amlodipine 5 mg, coreg, clonidine, atorvastatin 40mg daily * BP elevated, but stable 130s - 160s systolically Diabetes * A1c 7.23 Mar 2020 * resume home regimen at discharge Depression/Anxiety * Continue sertraline 50 mg every morning * May benefit from additional anxiety medication if acute shortness of breath related to possible anxiety about his CAD Sleep apnea * Does not use CPAP at home -- to further discuss with patient regarding importance and would rec follow up outpt * Importance of cpap compliance discussed with patient, patient reports that he absolutely cannot tolerate his machine. Elevated procalcitonin * Given a dose of vancomycin and cefepime in the ED, no further indication for antibiotics at present. * Follow-up blood cultures no growth after 24 hours * procal initially with marginal elevation, now wnl DVT Proph * Heparin while inpatient (4) CKD (chronic kidney disease), stage V: (5) (HFpEF) heart failure with preserved ejection fraction: CXR without evidence of congestive change Continue lasix 80mg BID (6) BPH (benign prostatic hyperplasia): (7) Depression: (8) CAD (coronary artery disease): (9) Diabetes mellitus type 2 in obese: (10) Hypercholesterolemia: (11) Sleep apnea: (12) HTN (hypertension): Total Time Total Time Spent Total Time Spent (In Minutes): greater than 30 minutes Discharge Plan Discharge Items Patient Disposition: Home - Self-Care Reason For Visit: INCREASING SOB LIKELY SECONDARY TO END-STAGE RENAL Discharge Diagnosis: Shortness of breath Activity: Resume your previous activity Non-emergency contact: Primary Care Provider Call non-emergency contact if: you have any medication questions, your symptoms worsen, your pain is unusual for you and your pain is concerning for you Follow-up/Referrals: Bunny Washington MD [Physician] - 05/25/20 3:45 pm (Follow up 1-2 weeks ) Shiv Gallardo MD [Primary Care Provider] - (follow up one week PER [facility] THE PCP WILL CONTACT THE PATIENT WITH A F/U VISIT.) Diet: Carb Consistent or DM2 and Dialysis Renal Addtl Attending Provider Instructions: (1) End-stage renal disease on hemodialysis: Your last dialysis was 05/17. You will have dialysis TOMORROW 1. (2) Bradycardia (slow heart rate) Reduce your carvedilol to 3.125 twice daily. (3) Diabetes While you were here you were requiring less insulin than you normally take at home. This may be because of reduced food intake while inpatient. Please check your blood sugars before meals and bedtime. Follow the enclosed information if you become hypoglycemic and call your doctor. You should also call your doctor if you are consistently running over 200 for your sugars. Pending Studies at Discharge: No Stand-Alone Forms: My [employer], Smoking Cessation Medications and DC Order Prescriptions: Continued furosemide [Lasix] 40 mg Tablet 80 mg PO BID RF: 0 insulin aspart U-100 [Novolog PenFill U-100 Insulin] 100 unit/mL Cartridge 10 unit SUBCUT AC RF: 0 tamsulosin 0.4 mg Capsule 0.4 mg PO QAM RF: 0 albuterol sulfate 90 mcg/actuation Hfa Aerosol Inhaler 2 puff INHALATION Q6H PRN (Reason: Shortness Of Breath) RF: 0 sertraline 50 mg Tablet 50 mg PO QAM PRN (Reason: Anxiety) RF: 0 loratadine 10 mg Tablet 10 mg PO DAILY PRN (Reason: Allergy Symptoms) RF: 0 clonidine HCl 0.1 mg tablet See Rx Instructions .ROUTE .COMPLEX RF: 0 amlodipine 10 mg tablet 5 mg PO QAM RF: 0 clopidogrel [Plavix] 75 mg Tablet 75 mg PO DAILY RF: 0 Lantus Solostar U-100 Insulin 100 unit/mL (3 mL) insulin pen 50 unit SUBCUT BID RF: 0 sevelamer carbonate [Renvela] 800 mg tablet 800 mg PO TIDM RF: 0 ProRenal 8 mg iron-800 mcg-1,000 unit tablet 1 tab PO QPM RF: 0 nitroglycerin [Nitrostat] 0.4 mg Tablet, Sublingual 0.4 mg sublingual UD PRN (Reason: chest pain) Qty: 20 RF: 0 atorvastatin 40 mg Tablet 40 mg PO PM Qty: 30 RF: 5 Changed carvedilol [Coreg] 6.25 mg tablet 3.125 mg PO BID Qty: 0 RF: 0 No Action aspirin 81 mg Tablet,Delayed Release (Dr/Ec) 81 mg PO DAILY RF: 0 Discharge Orders: Discharge Order (Routine); Ordered 05/19/20 Ordered By: Anna Burgos/Other Patient Handouts: Hypoglycemia (Low Blood Sugar) Admission Data Admit Date/Time: 05/16/20 23:51 Attending Provider: Angel Morrison Admit Provider: Bib Benitez I. Primary Care Provider: Shiv Gallardo Other Providers: Luisa Benitez Kevin C. ; Arya Khoury Other Interventions: Discharge Summary Assessment (RN) Last Done: 05/19/20 13:18 Supervising Physician Co-Signing Physician Notes Patient seen and examined on the day of discharge. I agree with the discharge summary by Anna CASTRO. I have reviewed the chart including labs, imaging and plans for discharge. patient walked in the hallway, said he felt fine c/o some burning with breathing, middle of chest that went away with a sip of water patient wants to go home, he is trying to figure out how to get to HD, difficulty with finding a ride - Chest pain, elevated troponin, ESRD on HD troponin going down, no further chest pain noted to have a heart cath in the summer, stents were open and had mild to moderate disease in other locations continue antiplatelet therapy, follow up with cardiology continue statins Coding Level of Care Code D/C Day Management >30 mins Diagnoses Chest pain R07.9 Bradycardia R00.1 End-stage renal disease on hemodialysis N18.6; Z99.2 CKD (chronic kidney disease), stage V N18.5 (HFpEF) heart failure with preserved ejection fraction I50.30 BPH (benign prostatic hyperplasia) N40.0 Lower urinary tract symptom presence: symptoms absent Depression F33.9 Active/Remission status: remission status unspecified Depression Type: major depressive disorder Major depression recurrence: recurrent CAD (coronary artery disease) I25.10 Associated angina: without angina Coronary Disease-Associated Artery/Lesion type: [place] artery [place] vs. transplanted heart: [place] heart Diabetes mellitus type 2 in obese E11.69; E66.9 Hypercholesterolemia E78.00 Sleep apnea G47.30 Sleep apnea type: unspecified type HTN (hypertension) I10 Hypertension type: essential hypertension
[2020-05-18] MEDS: ATORVASTATIN 40 MG TAB PO SCH (19:29)
[2020-05-18] MEDS: carvediloL 3.125 MG TAB PO SCH (19:30)
[2020-05-18] MEDS: NEPHROCAPS PO SCH (19:30)
[2020-05-19] MEDS: INSULIN GLARGINE SOLOSTAR 100 UNITS/ML 3 ML PEN SC SCH (07:43)
[2020-05-19] MEDS: INSULIN ASPART 100 UNITS/ML 3 ML PEN SC SCH ×2 (07:43→14:26)
[2020-05-19] MEDS: carvediloL 3.125 MG TAB PO SCH (08:30)
[2020-05-19] MEDS: ASPIRIN 81 MG ECTAB PO SCH (08:30)
[2020-05-19] MEDS: CLOPIDOGREL BISULFATE 75 MG TAB PO SCH (08:30)
[2020-05-19] MEDS: SEVELAMER HCL 800 MG TABLET PO SCH ×2 (08:30→14:27)
[2020-05-19] MEDS: TAMSULOSIN HCL 0.4 MG CAP PO SCH (08:30)
[2020-05-19] MEDS: FUROSEMIDE 80 MG TAB PO SCH (08:31)
[2020-05-19] MEDS: amLODIPine BESYLATE 5 MG TAB PO SCH (08:31)
[2020-05-19] MEDS: POLYETHYLENE (MIRALAX) 17 GM PACK PO SCH (08:36)
--- NOTE | 2020-05-19 10:24 | Nephrology Progress Note ---
Date of Service May 19, 2020 Assessment & Plan (1) End-stage renal disease (ESRD): HD TTS. Orders for HD today have been entered into the EMR and reviewed with the dialysis nurse. UF goal 3.5-4 L. CKD (chronic kidney disease), stage V: Attributed to diabetes and hypertension. Dialysis dependent. Unfortunately does not make a significant amount of urine. Inter dialytic weight gains have been excessive. The importance of of a renal diet and daily fluid restriction was again stressed in detail. Remains on Renvela as a phosphate binder. She be on a low phosphorus diet. Anemia: Chronic, stable. No need for additional MAYLIN therapy at this time. BP controlled. Tolerating currently therapy well. Troponin elevated. Cardiology consultation and TTE pending. Medications appropriately dosed for kidney function. (2) Secondary hyperparathyroidism of renal origin: (3) (HFpEF) heart failure with preserved ejection fraction: (4) CAD (coronary artery disease): (5) HTN (hypertension): Admission and Anticipated Discharge Date Admission Date: May 16, 2020 Subjective No acute events overnight. No additional dyspnea or chest pain. Angel feels well this AM. Review of Systems Review of Systems: All systems reviewed & are unremarkable except as noted in HPI & below Physical Exam Constitutional: well developed; no acute distress Eyes: no scleral abnormality and no corneal abnormality ENMT: Mouth: no oral mucosal abnormality and oral mucous membranes not dry Neck: normal visual inspection and trachea midline Respiratory: normal respiratory effort Auscultation: lungs clear to auscultation bilaterally Cardiovascular: Rate/Rhythm: regular rate Heart Sounds: normal S1, normal S2 and + murmur Extremities: + AV fistula; no edema Gastrointestinal (Abdomen): Inspection/Auscultation: + abdomen distended Percussion/Palpation: abdomen soft Musculoskeletal: Extremities: no cyanosis and no clubbing Skin: normal turgor; no lesions Neurologic: Motor/Sensory: no tremor and no asterixis Psychiatric: Orientation: alert and oriented x 3 Results & Data ([facility]) Vital Signs (Past 12 Hours) Vital Signs Temp Pulse Resp BP Pulse Ox 05/19/20 07:57 36.8 C 58 L 20 131/62 98 05/18/20 23:48 36.7 C 49 L 18 138/74 93 Laboratory Results Laboratory Results - last 24 hr 01/04/21 01/04/21 01/04/21 11:22 14:54 14:54 WBC 9.68 RBC 3.99 L Hgb 12.3 L Hct 37.6 L MCV 94.2 MCH 30.8 MCHC 32.7 RDW Std Deviation 52.5 H RDW Coeff of Atif 15.4 H Plt Count 194 MPV 10.6 H Sodium 137 Potassium 4.0 D Chloride 102 Carbon Dioxide 27 Anion Gap 8.0 BUN 61 H Creatinine 5.65 H* D Est Cr Clr Drug Dosing 16.8 Est GFR ( Amer) 11.0 Est GFR (Non-Af Amer) 9.5 BUN/Creatinine Ratio 10.8 Glucose 122 H POC Glucose 121 H Calcium 8.6 Procalcitonin 05/18/20 05/18/20 05/18/20 14:59 16:07 19:31 WBC RBC Hgb Hct MCV MCH MCHC RDW Std Deviation RDW Coeff of Atif Plt Count MPV Sodium Potassium Chloride Carbon Dioxide Anion Gap BUN Creatinine Est Cr Clr Drug Dosing Est GFR ( Amer) Est GFR (Non-Af Amer) BUN/Creatinine Ratio Glucose POC Glucose 103 H 142 H Calcium Procalcitonin 0.49 05/19/20 07:07 WBC RBC Hgb Hct MCV MCH MCHC RDW Std Deviation RDW Coeff of Atif Plt Count MPV Sodium Potassium Chloride Carbon Dioxide Anion Gap BUN Creatinine Est Cr Clr Drug Dosing Est GFR ( Amer) Est GFR (Non-Af Amer) BUN/Creatinine Ratio Glucose POC Glucose 74 Calcium Procalcitonin PG Care Time/CCT Total # of Minutes Spent Total Time Spent with Patient: Total time spent is greater than 50% in coordination of care (as documented) at patient's floor/unit and/or counseling patient: Coding Level of Care Code 32801 Subseq Hosp Care Lvl 3 Diagnoses End-stage renal disease (ESRD) N18.6 Secondary hyperparathyroidism of renal origin N25.81 (HFpEF) heart failure with preserved ejection fraction I50.30 CAD (coronary artery disease) I25.10 Coronary Disease-Associated Artery/Lesion type: [place] artery [place] vs. transplanted heart: [place] heart Associated angina: without angina HTN (hypertension) I10 Hypertension type: essential hypertension (1) CAD (coronary artery disease) Coronary Disease-Associated Artery/Lesion type: [place] artery [place] vs. transplanted heart: [place] heart Associated angina: without angina Qualified Code(s): I25.10 - Atherosclerotic heart disease of [place] coronary artery without angina pectoris (2) HTN (hypertension) Hypertension type: essential hypertension Qualified Code(s): I10 - Essential (primary) hypertension
--- NOTE | 2020-05-19 11:14 | Ultrasound Report ---
ULTRASOUND RIGHT LOWER EXTREMITY VENOUS CLINICAL HISTORY: Right lower extremity edema. COMPARISON STUDY: No priors. TECHNIQUE: Real-time, grayscale, and color Doppler sonography of the deep veins of the right lower ex tremity was performed from the inguinal crease to the calf. Compression and augmentation were utilize d. FINDINGS: There is no sonographic evidence of deep venous thrombosis identified in the right lower ex tremity. The common femoral, superficial femoral, and popliteal veins are patent and normally lidia sible. The greater saphenous vein and the profunda femoris vein at the junction with the common femor al vein are clear. The visualized calf veins are patent. IMPRESSION: There is no sonographic evidence of deep venous thrombosis identified in the right lower extremity. ACT 112: Negative or not required by law. Electronically signed by: [place] Chance M.D. 05/19/2020 11:13 AM
[2020-05-19] MEDS: cloNIDine HCL 0.1 MG TAB PO SCH (11:42)
--- NOTE | 2020-05-19 12:39 | Hospitalist Progress Note ---
Date of Service May 18, 2020 Assessment & Plan (1) Chest pain: 70-year-old male with a past medical history of paroxysmal atrial flutter, heart failure with preserved ejection fraction, BPH, depression, CAD, DM 2, hypertension, and end-stage renal disease on hemodialysis Monday, , Monday, presents for increasing shortness of breath after missing his scheduled dialysis today due to the holidays scheduled to receive dialysis tomorrow. Also with burning discomfort in his upper chest bilaterally. 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 Patient reports he experienced increasing shortness of breath while bringing in his groceries afternoon of admission, otherwise has had no significant constitutional symptoms in the recent days, he has associated mediastinal pain which is chronic in nature from an incident 10 years ago involving [place]. He states that this pain waxes and wanes. SOB resolved with dexamethasone given in the ER (also given cefepime/vanco but no need to continue at this time). 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 CXR without evidence of congestive changes ECHO with normal left ventricular systolic function, no RWMA, mild concentric left ventricular hypertrophy, mild mitral regurg no significant change from 12/24/2019 ON 05/17 patient had a trop of 3.5 and was started on heparin gtt. Cardiology evaluation today - EKG without acute ischemic change, trop is trending down, Echo with normal LV systolic function and no WMA. Patient had recent cath in January which showed patent LAD stents and small jailed second diagonal with 70% ostial stenosis for which medical management was recommended. At this time, cardiology does not recommend invasive evaluation. Patient denied any recent immobilization or travel, denies swelling in the lower legs or calf pain. His Wells Score for PE was 0. He has no history of VTE Walked with patient in the hallway. He had some mild dyspnea which he reports is baseline for him. When ambulating with nursing this evening he maintained sats of 98%. His upper throat/chest discomfort was soothed with sips of water. Lungs remain clear to auscultation. Patient was discussed with cardiology and they were ok with discharge today. He will follow up with his validation architect Dr. Washington (2) Bradycardia: As low as 30s. Looking back through his records it appears he has had bradycardia in the past as well. He is asymptomatic. Cardiology recommended decreasing his carvedilol. Walked with patient in the hallway. His heart rate had appropriate rise into the 70s and remained regular on the monitor. Patient has a loop recorder (3) End-stage renal disease on hemodialysis: Last dialysis 05/17 - will dialyze outpatient tomorrow - let nephro know and they will have him set up for outpatient Paroxysmal atrial flutter * Not on chronic anticoagulation - a flutter was apparently a one time occurrence. * NSR on examination -- NSR on admission with IVCD * No dysrhythmia on monitor BPH * Continue tamsulosin * Low UO in ESRD patient -- per nephrology, patient may just not make very much urine Coronary artery disease * History of stenting * Continue clopidogrel 75 mg, ASA 81mg, carvedilol decreased as above * Continue atorvastatin 40 mg p.o. every afternoon Hypertension/Hyperlipidemia * Continue amlodipine 5 mg, coreg, clonidine, atorvastatin 40mg daily * BP elevated, but stable 130s - 160s systolically Diabetes * A1c 7.23 Mar 2020 * resume home regimen at discharge Depression/Anxiety * Continue sertraline 50 mg every morning * May benefit from additional anxiety medication if acute shortness of breath related to possible anxiety about his CAD Sleep apnea * Does not use CPAP at home -- to further discuss with patient regarding importance and would rec follow up outpt * Importance of cpap compliance discussed with patient, patient reports that he absolutely cannot tolerate his machine. Elevated procalcitonin * Given a dose of vancomycin and cefepime in the ED, no further indication for antibiotics at present. * Follow-up blood cultures no growth after 24 hours * procal initially with marginal elevation, now wnl DVT Proph * Heparin while inpatient (4) CKD (chronic kidney disease), stage V: (5) (HFpEF) heart failure with preserved ejection fraction: CXR without evidence of congestive change Continue lasix 80mg BID (6) BPH (benign prostatic hyperplasia): (7) Depression: (8) CAD (coronary artery disease): (9) Diabetes mellitus type 2 in obese: (10) Hypercholesterolemia: (11) Sleep apnea: (12) HTN (hypertension): Admission and Anticipated Discharge Date Admission Date: May 16, 2020 Subjective Mr. Solorio has no complaints. Chest pain has resolved, sob has improved Review of Systems Constitutional: no fever and no body aches Respiratory: no cough and no dyspnea Cardiovascular: no chest pain and no palpitations Gastrointestinal: no abdominal pain, no nausea and no vomiting Genitourinary: no dysuria and no urinary hesitancy Musculoskeletal: no back pain and no joint pain Integumentary: no rash Physical Exam Constitutional: WD/WN, vitals as above Respiratory: normal respiratory effort, lungs clear to auscultation Cardiovascular: RRR, no murmur, no edema Gastrointestinal (Abdomen): normal bowel sounds, soft, nontender, no hepatosplenomegaly Musculoskeletal: no cyanosis or clubbing, extremities motor strength 5/5 Extremities: extremities normal to inspection (symmetric ) Skin: no rashes, warm and dry Neurologic: moves all extremities and awake Psychiatric: A+Ox3, euthymic affect Results & Data Results & Data ([facility]) Vital Signs (Past 12 Hours) Vital Signs Temp Pulse Resp BP Pulse Ox 05/19/20 07:57 36.8 C 58 L 20 131/62 98 PG Care Time/CCT Total # of Minutes Spent Total Time Spent with Patient: Total time spent is greater than 50% in coordina tion of care (as documented) at patient's floor/unit and/or counseling patient: Coding Level of Care Code 92777 Subseq Hosp Care Lvl 3 Diagnoses Chest pain R07.9 Bradycardia R00.1 End-stage renal disease on hemodialysis N18.6; Z99.2 CKD (chronic kidney disease), stage V N18.5 (HFpEF) heart failure with preserved ejection fraction I50.30 BPH (benign prostatic hyperplasia) N40.0 Lower urinary tract symptom presence: symptoms absent Depression F33.9 Active/Remission status: remission status unspecified Depression Type: major depressive disorder Major depression recurrence: recurrent CAD (coronary artery disease) I25.10 Associated angina: without angina Coronary Disease-Associated Artery/Lesion type: [place] artery [place] vs. transplanted heart: [place] heart Diabetes mellitus type 2 in obese E11.69; E66.9 Hypercholesterolemia E78.00 Sleep apnea G47.30 Sleep apnea type: unspecified type HTN (hypertension) I10 Hypertension type: essential hypertension (1) BPH (benign prostatic hyperplasia) Lower urinary tract symptom presence: symptoms absent Qualified Code(s): N40.0 - Benign prostatic hyperplasia without lower urinary tract symptoms (2) Sleep apnea Sleep apnea type: unspecified type Qualified Code(s): G47.30 - Sleep apnea, unspecified (3) CAD (coronary artery disease) Associated angina: without angina Coronary Disease-Associated Artery/Lesion type: [place] artery [place] vs. transplanted heart: [place] heart Qualified Code(s): I25.10 - Atherosclerotic heart disease of [place] coronary artery without angina pectoris (4) Depression Active/Remission status: remission status unspecified Depression Type: major depressive disorder Major depression recurrence: recurrent Qualified Code(s): F33.9 - Major depressive disorder, recurrent, unspecified (5) HTN (hypertension) Hypertension type: essential hypertension Qualified Code(s): I10 - Essential (primary) hypertension
== END 2020-05-19 15:51 | disposition home or self-care (01) | DRG 291 ==
LOC: ED 19:16 → OBSVTOIN 23:51 → SUATTDRO 23:51 → 2W 23:51 → INTOOBSV 23:51 → 2W 05-17 01:24 → 2S 05-17 18:41 → 3W 05-19 02:40

== ENCOUNTER 2020-06-10 14:57 | Inpatient (IN) ==
[2020-06-10 15:31] LABS: Basophils # (auto) 0.01 K/uL (0-0.2); Basophils % (auto) 0.1 %; Eosinophils # (auto) 0.04 K/uL (0-0.5); Eosinophils % (auto) 0.6 %; Hematocrit (blood only) 26.8 % (42-52); Hemoglobin 8.5 g/dL (14.0-18.0); Immature Granulocytes # (auto) 0.01 K/uL (0.00-0.02); Immature Granulocytes % (auto) 0.1 %; Lymphocytes # (auto) 0.93 K/uL (1.2-3.4); Lymphocytes % (auto) 13.5 %; Mean Corpuscular Hemoglobin 30.1 pg (25-34); Mean Corpuscular Hgb Conc 31.7 g/dL (32-36); Mean Platelet Volume 9.6 fL (7.4-10.4); Monocytes # (auto) 0.68 K/uL (0.11-0.59); Monocytes % (auto) 9.9 %; Neutrophils % (auto) 75.8 %; Platelet Count 316 K/uL (130-400); RDW Coefficient of Variation 16.2 % (11.5-14.5); RDW Standard Deviation 56.4 fL (36.4-46.3); Red Blood Count 2.82 M/uL (4.7-6.1); White Blood Count 6.87 K/uL (4.8-10.8)
--- NOTE | 2020-06-10 15:56 | XRay Report ---
XR chest 1V portable CLINICAL HISTORY: CABG recent, weak, falls COMPARISON STUDY: Chest radiograph May 21, 2020. FINDINGS: Interval median sternotomy is noted. There is moderate cardiomegaly. There is no pneumothor ax. There are trace bilateral pleural effusions. Bilateral consolidation is present. IMPRESSION: 1. Bilateral consolidation. Pneumonia is favored. Although considered less likely, pulmonary edema co uld appear similar. 2. Trace bilateral pleural effusions. ACT 112: Negative or not required by law. Electronically signed by: Chaim Phan M.D. 06/10/2020 3:55 PM
[2020-06-10 16:02] LABS: Albumin Globulin Ratio 0.6 (0.9-2); Albumin Level 2.7 gm/dl (3.4-5.0); BUN Creatinine Ratio 10.4 (10-20); Bilirubin,Total 0.3 mg/dl (0.2-1); Calcium 8.1 mg/dl (8.5-10.1); Creatinine Clr Calc Pharmacy 13.6 ml/min; Est GFR (African American) 8.5; Est GFR (Non-African American) 7.4; Globulin 4.3 gm/dl (2.5-4.0); Potassium 4.9 mmol/L (3.5-5.1)
[2020-06-10] MEDS ORDERED: SODIUM CHLORIDE 0.9% 250 ML IV PRN (16:06)
--- NOTE | 2020-06-10 16:15 | CT Scan Report ---
CT SCAN OF THE BRAIN WITHOUT IV CONTRAST CLINICAL HISTORY: Fall. Anticoagulated patient. COMPARISON STUDY: No priors. TECHNIQUE: Unenhanced axial CT scan of the brain is performed from the vertex to the skull base. A do se lowering technique was utilized adhering to the principles of ALARA. The patient was scanned twice due to motion artifact. CT DOSE: 1730.28 mGycm FINDINGS: Brain parenchyma: Right temporo-occipital encephalomalacia is consistent with a remote insult. Small chronic lacunar infarcts are noted in the right thalamus. There are age-related involutional changes noting mild to moderate subcortical and periventricular microangiopathic change. There is no hemorrh age, mass effect, or evidence of acute territorial ischemia by CT criteria. Navas-white matter differe ntiation is preserved. No extra-axial fluid collection is seen. Ventricles, sulci, cisterns: Prominent secondary to involutional change. Intracranial vasculature: There is atherosclerotic calcification of the cavernous carotid and vertebr al arteries. Calvarium: Unremarkable. Sinuses and mastoids: The visualized paranasal sinuses are clear. The mastoid air cells are well pneu matized. Orbits: The bony orbits are grossly intact. IMPRESSION: There is no hemorrhage, mass effect, or evidence of acute territorial ischemia by CT roxanne renner. ACT 112: Negative or not required by law. Electronically signed by: Washington Chance M.D. 06/10/2020 4:14 PM
[2020-06-10] MEDS ORDERED: DEXAMETHASONE SOD INJ 10 MG/ML VIAL IV ONE (16:52)
--- NOTE | 2020-06-10 16:52 | Electrocardiogram Report ---
Test Reason : Blood Pressure : / mmHG Vent. Rate : 064 BPM Atrial Rate : 064 BPM P-R Int : 218 ms QRS Dur : 116 ms QT Int : 414 ms P-R-T Axes : 028 073 077 degrees QTc Int : 427 ms Sinus rhythm with 1st degree A-V block Otherwise normal ECG When compared with ECG of 21-MAY-2020 06:25, No significant change was found Confirmed by Luiz Washington ([id number]) on 06/10/2020 4:51:53 PM Referred By: REFERRED SELF Confirmed By:Chau Washington
[2020-06-10 17:00] LABS: INR 1.5 (0.9-1.1); Partial Thromboplastin Ratio 1.6; Partial Thromboplastin Time 44.7 Seconds (21.0-31.0); Prothrombin Time 15.4 Seconds (9.0-12.0)
--- NOTE | 2020-06-10 17:42 | History & Physical Report ---
Date of Service June 10, 2020 Assessment & Plan (1) Hypoxia: In the 80s on arrival to ED COVID + on 06/03 on d/c from [facility], repeat + in the ED on admission Started on dexa in the ED, will continue Will not use remdesivir given renal function CXR noted for b/l PNA WBC WNL, afebrile, will hold on abx for now (2) Non-ST elevation (NSTEMI) myocardial infarction: CABG at [facility] earlier this month d/c on 06/03 to home d/c on aspirin, plavix, Coumadin-- increased yesterday to 3mg alternating with 2mg (due for 2mg on 06/10) from 2mg QD INR 1.5 Holding aspirin, plavix, coumadin due to drop in Hb Can resume if hemoccult neg Trop 0.038, serials pending [place] [facility] [place] (3) Paroxysmal atrial fibrillation: continue home meds Holding coumadin as above (4) CKD (chronic kidney disease), stage V: // HD Missed HD on 06/09 due to fall Renal c/s pending (5) BPH (benign prostatic hyperplasia): continue home meds (6) Depression: continue home meds (7) Diabetes mellitus type 2 in obese: Lantus + SSI PRN A1c pending (8) Hypercholesterolemia: continue home meds (9) Sleep apnea: noncompliant with CPAP (10) HTN (hypertension): continue home meds (11) Anemia: Hb 8.5 on admission Had been 12.5 on 05/20/20 Hx of iron deficiency, iron panel pending MCV 95, B12/folate pending Hemoccult pending (12) DVT prophylaxis: Resume coumadin if able SCDs (13) Fall: Possibly related to COVID status vs anemia in the setting of recent CABG PT/OT pending CT head: neg for acute History of Present Illness Primary Care Provider: Shiv Gallardo MD 70 y/o M c/o SOB. Pt was recently d/c'd to home from [facility] s/p CABG after being transferred there from [facility] earlier this month for an NSTEMI with severe LAD disease. On d/c, he was swabbed for COVID at his neighbor's request since his neighbor was going to pick him up at d/c to take pt home. Pt had been having a runny nose and sore throat, but no clear COVID sx. He tested positive on day of d/c, which was 06/03. He had been doing pretty well at home until last night when he had sudden onset SOB. He has home O2 available, but had no needed it for some time. He tried to use it last night, but it did not help. Pt has been SOB at rest and with exertion. Pt has chest soreness since his CABG, but no yaa pain. He has been tolerating PO without issue. Pt denies fever, abd pain, n/v/c/d, LE pain. He is feeling better s/p O2 and steroids in the ED. Pt has HD on . He missed his Monday HD due to having fallen out of bed, which he attributes to being lightheaded at that time. He fell again today, which was again due to lightheadedness. He did not have LOC with either fall. He does note mild LE swelling, which is typical if he misses his HD. He does still make urine and feels that this is at its usual level. Pt is on coumadin s/p CABG. His dose had been 2mg QD, but it was changed yesterday to 3mg and he was to alternate that with 2mg. Today's dose would be 2mg. Denies bleeding. Allergies Allergy/AdvReac Type Severity Reaction Status Date / Time ragweed pollen Allergy Mild [place] Verified 05/21/20 02:09 [place] Complexes Allergy Unknown rash from Verified 05/21/20 02:09 metal Home Medications Medication Instructions Recorded Confirmed Type albuterol sulfate 2 puff INHALATION Q6H PRN 01/06/19 06/10/20 History furosemide [Lasix] 80 mg PO BID 01/06/19 06/10/20 History insulin aspart U-100 [Novolog 10 unit SUBCUT AC 01/06/19 06/10/20 History PenFill U-100 Insulin] loratadine 10 mg PO DAILY PRN 01/06/19 06/10/20 History sertraline 50 mg PO QAM PRN 01/06/19 06/10/20 History tamsulosin 0.4 mg PO QAM 01/06/19 06/10/20 History Lantus Solostar U-100 Insulin 50 unit SUBCUT BID 03/06/19 06/10/20 History clopidogrel [Plavix] 75 mg PO DAILY 03/06/19 06/10/20 History ProRenal 1 tab PO QPM 09/26/19 06/10/20 History sevelamer carbonate [Renvela] 800 mg PO TIDM 09/26/19 06/10/20 History amlodipine 10 mg tablet 5 mg PO QAM tab 12/18/19 06/10/20 History clonidine HCl 0.1 mg tablet See Rx Instructions .ROUTE .COMPLEX 12/18/19 06/10/20 History atorvastatin 40 mg PO PM #30 tab 12/27/19 06/10/20 Rx nitroglycerin [Nitrostat] 0.4 mg SUBLINGUAL UD PRN #20 tab 12/27/19 06/10/20 Rx carvedilol [Coreg] 3.125 mg PO BID #0 tab 05/18/20 06/10/20 Rx aspirin 81 mg PO DAILY 05/21/20 06/10/20 History famotidine 20 mg PO DAILY 06/10/20 06/10/20 History oxycodone 5 mg PO DIRECTED PRN 06/10/20 06/10/20 History warfarin See Rx Instructions .ROUTE .COMPLEX 06/10/20 06/10/20 History Past Med/Surg History Medical History Abnormal abdominal CT scan Acute bronchospasm Anemia CAD (coronary artery disease) s/p LAD stents (2018 and 2019) CHF exacerbation Chronic kidney disease, stage 4 (severe) CKD (chronic kidney disease) Stage 4 Diabetes Dyslipidemia Elevated troponin Elevated troponin HTN (hypertension) Hypoxia Leukocytosis Lower abdominal pain Orthostatic dizziness Paroxysmal atrial fibrillation Secondary hyperparathyroidism of renal origin Sinus node dysfunction Sleep apnea does not use CPAP Surgical History AV fistula History of loop recorder Implanted 05/01/2019 Family History Other Hypertension Social History Smoking Status: Unknown if ever smoked Tobacco Type: Cigarettes Cigarettes Per Day: 10; Second Hand Exposure: No; Hx Alcohol Use: Yes Alcohol type: beer and wine Hx Substance Use: No Preferred Language: Togolese Communication Ability: Effective Napping Machine Operator Required: No Beliefs That Will Affect Care: None marital status: Current Living Situation: Alone How many Children do You have: 0 Feels Safe at Home: Yes Assistive Devices: Oxygen - Continuous Review of Systems Review of Systems: Pertinent positives and negatives reviewed in HPI--all others negative Physical Exam Constitutional: WD/WN, vitals as above Eyes: normal visual moraels by confrontation and + anicteric sclerae Neck: normal visual inspection and trachea midline Respiratory: normal respiratory effort; no respiratory distress Auscultation: + crackles; no wheezes Cardiovascular: Rate/Rhythm: regular rate and regular rhythm Gastrointestinal (Abdomen): Inspection/Auscultation: abdomen not distended Percussion/Palpation: abdomen soft; abdomen nontender Musculoskeletal: Head/Neck/Chest: normocephalic and head atraumatic 1+ LE edema, peripheral pulses intact Skin: no rashes, warm and dry Neurologic: awake; not confused Speech / Cognition: normal speech Psychiatric: A+Ox3, euthymic affect Results & Data Results & Data ([facility]) Vital Signs (Past 12 Hours) Vital Signs Temp Pulse Pulse Resp BP Pulse Ox 06/10/20 16:44 62 16 96 06/10/20 16:30 65 21 109/59 L 89 L 06/10/20 16:05 63 24 97 06/10/20 15:45 87 L 06/10/20 15:16 94 06/10/20 15:07 63 21 120/59 L 95 06/10/20 14:41 37 C 62 22 120/59 L 94 Diagnostic Findings CXR: b/l PNA, trace pleural effusions CT head: neg for acute Code Status & VTE Plan Code Status Full code VTE Prophylaxis Plan VTE Prophylaxis will be ordered: Yes PG Care Time/CCT Total # of Minutes Spent Total Time Spent with Patient: Total time spent is greater than 50% in coordination of care (as documented) at patient's floor/unit and/or counseling patient: Coding Level of Care Code 61582 Initial Inpt Care Lvl 3 Diagnoses Hypoxia R09.02 Non-ST elevation (NSTEMI) myocardial infarction I21.4 Paroxysmal atrial fibrillation I48.0 CKD (chronic kidney disease), stage V N18.5 BPH (benign prostatic hyperplasia) N40.0 Lower urinary tract symptom presence: symptoms absent Depression F33.9 Depression Type: major depressive disorder Major depression recurrence: recurrent Active/Remission status: remission status unspecified Diabetes mellitus type 2 in obese E11.69; E66.9 Hypercholesterolemia E78.00 Sleep apnea G47.30 Sleep apnea type: unspecified type HTN (hypertension) I10 Hypertension type: essential hypertension Anemia D64.9 DVT prophylaxis Z29.9 Fall W19.XXXA (1) BPH (benign prostatic hyperplasia) Lower urinary tract symptom presence: symptoms absent Qualified Code(s): N40.0 - Benign prostatic hyperplasia without lower urinary tract symptoms (2) Depression Depression Type: major depressive disorder Major depression recurrence: recurrent Active/Remission status: remission status unspecified Qualified Code(s): F33.9 - Major depressive disorder, recurrent, unspecified (3) Sleep apnea Sleep apnea type: unspecified type Qualified Code(s): G47.30 - Sleep apnea, unspecified (4) HTN (hypertension) Hypertension type: essential hypertension Qualified Code(s): I10 - Essential (primary) hypertension
--- NOTE | 2020-06-10 18:22 | Emergency Department Note ---
Impression & Plan Pneumonia due to 2019 novel coronavirus, CAD (coronary artery disease), S/P CABG (coronary artery bypass graft) ED Provider Note NAME: LYNN BENZ AGE: 70 SEX: M ARRIVES VIA: Ambulance INFORMANT: Patient ED PROVIDER(S): Mile Walton MD CHIEF COMPLAINT: SOB, weakness/falls PLAN: Disposition: Admission Condition: Fair Referral: Hospitalist MEDICAL DECISION MAKING: This pt was evaluated and appeared to be in no distress. IV access was obtained and lab work was drawn. Pt was placed on the color television console monitor and noted to be in a sinus rhythm with first degree AV block at 63 bpm. Pt was maintained on n/c O2 as he was hypoxic on RA. CXR was concerning for bilateral consolidation favo ring PNA with bilateral pleural effusions. Lab work reveals hgb of 8.5 likely secondary to recent CABG. Pt is known COVID + and was given dexamethasone 6 mg IV. Case was d/w the hospitalist service for further management. Pt is aware of the plan and agrees. Triage Nursing notes reviewed. Prior medical records reviewed. Vital Signs: reviewed and remarkable for hypoxia on RA Differential diagnosis: Infection, COVID, CHF, dehydration, metabolic abnormality, hypo/hyperglycemia, electrolyte disturbance, anemia, hypoxia, cardiac sources, intracerebral event, toxicologic, neurologic, as well as other pathologies. ER treatment provided: O2 n/c IV dexamethasone Diagnostics interpreted by me: ECG: sinus rhythm with first degree AV block at 64 bpm. normal Qtc at 427, no ectopy, no acute ST change, normal axis. Cardiac Monitoring: an order for cardiac monitoring was placed an pt was noted to be in a NSR w first degree AV block at 63 bpm Laboratory studies: COVID positive Imaging studies: XR chest 1V portable CLINICAL HISTORY: CABG recent, weak, falls COMPARISON STUDY: Chest radiograph May 21, 2020. FINDINGS: Interval median sternotomy is noted. There is moderate cardiomegaly. There is no pneumothorax. There are trace bilateral pleural effusions. Bilateral consolidation is present. IMPRESSION: 1. Bilateral consolidation. Pneumonia is favored. Although considered less likely, pulmonary edema could appear similar. 2. Trace bilateral pleural effusions. ACT 112: Negative or not required by law. Electronically signed by: Chaim Phan M.D. 06/10/2020 3:55 PM Dictated: 06/10/20 1553Transcribed: 06/10/[address] SCAN OF THE BRAIN WITHOUT IV CONTRAST CLINICAL HISTORY: Fall. Anticoagulated patient. COMPARISON STUDY: No priors. TECHNIQUE: Unenhanced axial CT scan of the brain is performed from the vertex to the skull base. A dose lowering technique was utilized adhering to the principles of ALARA. The patient was scanned twice due to motion artifact. CT DOSE: 1730.28 mGycm FINDINGS: Brain parenchyma: Right temporo-occipital encephalomalacia is consistent with a remote insult. Small chronic lacunar infarcts are noted in the right thalamus. There are age-related involutional changes noting mild to moderate subcortical and periventricular microangiopathic change. There is no hemorrhage, mass effect, or evidence of acute territorial ischemia by CT criteria. Navas-white matter differentiation is preserved. No extra-axial fluid collection is seen. Ventricles, sulci, cisterns: Prominent secondary to involutional change. Intracranial vasculature: There is atherosclerotic calcification of the cavernous carotid and vertebral arteries. Calvarium: Unremarkable. Sinuses and mastoids: The visualized paranasal sinuses are clear. The mastoid air cells are well pneumatized. Orbits: The bony orbits are grossly intact. IMPRESSION: There is no hemorrhage, mass effect, or evidence of acute territorial ischemia by CT criteria. ACT 112: Negative or not required by law. Electronically signed by: Washington Chance M.D. 06/10/2020 4:14 PM Dictated: 06/10/201609Transcribed: 06/10/201609 Consultation(s): hospitalist HPI: 70/M arrives for evaluation of weakness/falls and SOB. Pt was evaluated in the ED earlier this month (05/21/20) and admitted with tx to [facility] [place] after NSTEMI. Pt is a ESRD on HD pt and has also tested + for COVID prior to coming home from [place] on 05/24. Over the last 2 days he has developed significant weakness particularly with exertion. He admits to a dry cough, but denies that it is significant. He denies significant fever, vomiting, diarrhea. He has had no CP. He denies CISSE, CHI. Pt is on a TRS HD schedule. He does not currently wear O2 at home since starting dialysis, but started it again today when he became SOB, he still had supplies at home. ROS: See above HPI for pertinent positives & negatives. A total of 10 systems reviewed and were otherwise negative. PAST MEDICAL HISTORY:See Below PAST SURGICAL HISTORY:See Below FAMILY HISTORY:See Below SOCIAL HISTORY:See Below HOME MEDICATIONS:See Below ALLERGIES:See Below VITALS:See Below PHYSICAL EXAMINATION: Vital signs reviewed. General: Chronically ill-appearing 70 yo male, in no significant distress. HEENT: No scleral icterus, PERRLA, neck supple. Atraumatic. Cardiovascular: Regular rate and rhythm, no extra sounds. Post surgical change noted. Pulmonary: distant and coarse to auscultation bilaterally, increased work of breathing. on n/c O2 Abdomen: Soft, obese, nontender, nondistended, positive bowel sounds. Musculoskeletal: Atraumatic, no peripheral edema. Neurologic: Patient awake alert and oriented x 3 Skin: Warm, dry, no rash Mile Walton MD Past Med/Surg History Medical History Anemia CAD (coronary artery disease) s/p LAD stents (2018 and 2019) Diabetes Dyslipidemia HTN (hypertension) Paroxysmal atrial fibrillation Secondary hyperparathyroidism of renal origin Sinus node dysfunction Sleep apnea does not use CPAP Surgical History AV fistula History of loop recorder Implanted 05/01/2019 S/P CABG (coronary artery bypass graft) Family History Other Hypertension Denies family history of Kidney disease Social History Smoking Status: Former smoker Tobacco Type: Cigarettes Cigarettes Per Day: 10; Second Hand Exposure: No; Do You Dip or Chew Tobacco: No; Tobacco Cessation Education Requested by Patient: No Hx Alcohol Use: Yes Alcohol type: beer and wine Hx Substance Use: Yes Last Used Substance Other:: 10 years ago Preferred Language: [place] Communication Ability: Effective Merchandise Planning Manager Required: No Beliefs That Will Affect Care: None marital status: Current Living Situation: Alone How many Children do You have: 0 Other Information That Helps Us Care for You: No Feels Safe at Home: Yes Safety Concerns: Feels Safe At This Time Assistive Devices: Oxygen - Continuous Assistive Devices Comment: uses oxygen as needed Allergies Allergies Allergy/AdvReac Type Severity Reaction Status Date / Time ragweed pollen Allergy Mild [place] Verified 05/21/20 02:09 [place] Complexes Allergy Unknown rash from Verified 05/21/20 02:09 metal Home Meds Home Medications Medication Instructions Recorded Confirmed albuterol sulfate 2 puff INHALATION Q6H PRN 01/06/19 06/10/20 furosemide [Lasix] 80 mg PO BID 01/06/19 06/10/20 insulin aspart U-100 [Novolog 10 unit SUBCUT AC 01/06/19 06/10/20 PenFill U-100 Insulin] loratadine 10 mg PO DAILY PRN 01/06/19 06/10/20 sertraline 50 mg PO QAM PRN 01/06/19 06/10/20 tamsulosin 0.4 mg PO QAM 01/06/19 06/10/20 Lantus Solostar U-100 Insulin 50 unit SUBCUT BID 03/06/19 06/10/20 clopidogrel [Plavix] 75 mg PO DAILY 03/06/19 06/10/20 ProRenal 1 tab PO QPM 09/26/19 06/10/20 sevelamer carbonate [Renvela] 800 mg PO TIDM 09/26/19 06/10/20 amlodipine 10 mg tablet 5 mg PO QAM tab 12/18/19 06/10/20 clonidine HCl 0.1 mg tablet See Rx Instructions .ROUTE .COMPLEX 12/18/19 06/10/20 aspirin 81 mg PO DAILY 05/21/20 06/10/20 famotidine 20 mg PO DAILY 06/10/20 06/10/20 oxycodone 5 mg PO DIRECTED PRN 06/10/20 06/10/20 warfarin See Rx Instructions .ROUTE .COMPLEX 06/10/20 06/10/20 Previous Rx's Medication Instructions Recorded atorvastatin 40 mg PO PM #30 tab 12/27/19 nitroglycerin [Nitrostat] 0.4 mg SUBLINGUAL UD PRN #20 tab 12/27/19 carvedilol [Coreg] 3.125 mg PO BID #0 tab 05/18/20 Results & Data (ED) Vital Signs Vital Signs - 24 hr 06/10/20 14:41 06/10/20 15:07 06/10/20 15:16 Temperature 37 C Temperature Source Oral Pulse Rate 62 63 Pulse Rate [Finger] Pulse Rate from SpO2 Sensor 63 Respiratory Rate 22 21 Respiratory Effort / Characteristics Spontaneous Respiratory Depth Normal Blood Pressure 120/59 L 120/59 L Blood Pressure Mean 79 79 Pulse Oximetry 94 95 94 Oxygen Delivery Method Nasal Cannula Nasal Cannula Nasal Cannula Oxygen Flow Rate 3 5 3 Fraction of Inspired Oxygen Sepsis Recent Fever Within 48 Hours No Sepsis New/Unexplained Change in Mental Status No Sepsis Action Taken by Nursing No Action Required Oxygen Flow Rate - Titration Pulse Oximetry Post Tiitration 06/10/20 15:45 06/10/20 16:05 06/10/20 16:30 Temperature Temperature Source Pulse Rate 63 65 Pulse Rate [Finger] Pulse Rate from SpO2 Sensor 63 64 Respiratory Rate 24 21 Respiratory Effort / Characteristics Respiratory Depth Blood Pressure 109/59 L Blood Pressure Mean 75 Pulse Oximetry 87 L 97 89 L Oxygen Delivery Method Nasal Cannula Nasal Cannula Oxygen Flow Rate 3 5 Fraction of Inspired Oxygen Sepsis Recent Fever Within 48 Hours Sepsis New/Unexplained Change in Mental Status Sepsis Action Taken by Nursing Oxygen Flow Rate - Titration 5 Pulse Oximetry Post Tiitration 95 06/10/20 16:44 06/10/20 18:00 06/10/20 18:10 Temperature Temperature Source Pulse Rate Pulse Rate [Finger] 62 Pulse Rate from SpO2 Sensor 62 61 Respiratory Rate 16 Respiratory Effort / Characteristics Non-Labored Spontaneous Respiratory Depth Blood Pressure 112/58 L Blood Pressure Mean 76 Pulse Oximetry 96 96 94 Oxygen Delivery Method High Flow Nasal Cannula Oxygen Flow Rate 30 Fraction of Inspired Oxygen 50 Sepsis Recent Fever Within 48 Hours Sepsis New/Unexplained Change in Mental Status Sepsis Action Taken by Nursing Oxygen Flow Rate - Titration Pulse Oximetry Post Tiitration Laboratory Data Result diagrams: 06/14/20 05:44 06/14/20 05:44 Lab Results 06/10/20 06/10/20 06/10/20 Range/Units 15:20 15:20 15:20 WBC 6.87 (4.8-10.8) K/uL RBC 2.82 L (4.7-6.1) M/uL Hgb 8.5 L (14.0-18.0) g/dL Hct 26.8 L (42-52) % MCV 95.0 (80-100) fL MCH 30.1 (25-34) pg MCHC 31.7 L (32-36) g/dL RDW Std Deviation 56.4 H (36.4-46.3) fL RDW Coeff of Atif 16.2 H (11.5-14.5) % Plt Count 316 (130-400) K/uL MPV 9.6 (7.4-10.4) fL Immature Gran % (Auto) 0.1 % Neut % (Auto) 75.8 % Lymph % (Auto) 13.5 % [place] % (Auto) 9.9 % Eos % (Auto) 0.6 % Baso % (Auto) 0.1 % Neut # (Auto) 5.20 (1.4-6.5) K/uL Lymph # (Auto) 0.93 L (1.2-3.4) K/uL [place] # (Auto) 0.68 H (0.11-0.59) K/uL Eos # (Auto) 0.04 (0-0.5) K/uL Baso # (Auto) 0.01 (0-0.2) K/uL Immature Gran # (Auto) 0.01 (0.00-0.02) K/uL PT (9.0-12.0) Seconds INR (0.9-1.1) APTT (21.0-31.0) Seconds PTT Ratio Sodium 137 (136-145) mmol/L Potassium 4.9 (3.5-5.1) mmol/L Chloride 100 (98-107) mmol/L Carbon Dioxide 32 (21-32) mmol/L Anion Gap 5.0 (3-11) BUN 73 H (7-18) mg/dl Creatinine 6.97 H* (0.6-1.4) mg/dl Est Cr Clr Drug Dosing 13.6 ml/min Est GFR ( Amer) 8.5 Est GFR (Non-Af Amer) 7.4 BUN/Creatinine Ratio 10.4 (10-20) Glucose 110 H (70-99) mg/dl Calcium 8.1 L (8.5-10.1) mg/dl Total Bilirubin 0.3 (0.2-1) mg/dl AST 23 (15-37) U/L ALT 18 (12-78) U/L Alkaline Phosphatase 40 L (45-117) U/L Troponin I 0.038 (0-0.045) ng/ml Total Protein 7.0 (6.4-8.2) gm/dl Albumin 2.7 L (3.4-5.0) gm/dl Globulin 4.3 H (2.5-4.0) gm/dl Albumin/Globulin Ratio 0.6 L (0.9-2) COVID-19 Eval Order SARS-CoV-2, RNA, NAAT (NEGATIVE) Blood Type Antibody Screen Crossmatch 06/10/20 06/10/20 06/10/20 Range/Units 15:20 15:40 15:40 WBC (4.8-10.8) K/uL RBC (4.7-6.1) M/uL Hgb (14.0-18.0) g/dL Hct (42-52) % MCV (80-100) fL MCH (25-34) pg MCHC (32-36) g/dL RDW Std Deviation (36.4-46.3) fL RDW Coeff of Atif (11.5-14.5) % Plt Count (130-400) K/uL MPV (7.4-10.4) fL Immature Gran % (Auto) % Neut % (Auto) % Lymph % (Auto) % [place] % (Auto) % Eos % (Auto) % Baso % (Auto) % Neut # (Auto) (1.4-6.5) K/uL Lymph # (Auto) (1.2-3.4) K/uL [place] # (Auto) (0.11-0.59) K/uL Eos # (Auto) (0-0.5) K/uL Baso # (Auto) (0-0.2) K/uL Immature Gran # (Auto) (0.00-0.02) K/uL PT 15.4 H (9.0-12.0) Seconds INR 1.5 H (0.9-1.1) APTT 44.7 H (21.0-31.0) Seconds PTT Ratio 1.6 Sodium (136-145) mmol/L Potassium (3.5-5.1) mmol/L Chloride (98-107) mmol/L Carbon Dioxide (21-32) mmol/L Anion Gap (3-11) BUN (7-18) mg/dl Creatinine (0.6-1.4) mg/dl Est Cr Clr Drug Dosing ml/min Est GFR ( Amer) Est GFR (Non-Af Amer) BUN/Creatinine Ratio (10-20) Glucose (70-99) mg/dl Calcium (8.5-10.1) mg/dl Total Bilirubin (0.2-1) mg/dl AST (15-37) U/L ALT (12-78) U/L Alkaline Phosphatase (45-117) U/L Troponin I (0-0.045) ng/ml Total Protein (6.4-8.2) gm/dl Albumin (3.4-5.0) gm/dl Globulin (2.5-4.0) gm/dl Albumin/Globulin Ratio (0.9-2) COVID-19 Eval [facility] SARS-CoV-2, RNA, NAAT POSITIVE A* (NEGATIVE) Blood Type Antibody Screen Crossmatch 06/10/20 Range/Units 16:31 WBC (4.8-10.8) K/uL RBC (4.7-6.1) M/uL Hgb (14.0-18.0) g/dL Hct (42-52) % MCV (80-100) fL MCH (25-34) pg MCHC (32-36) g/dL RDW Std Deviation (36.4-46.3) fL RDW Coeff of Atif (11.5-14.5) % Plt Count (130-400) K/uL MPV (7.4-10.4) fL Immature Gran % (Auto) % Neut % (Auto) % Lymph % (Auto) % [place] % (Auto) % Eos % (Auto) % Baso % (Auto) % Neut # (Auto) (1.4-6.5) K/uL Lymph # (Auto) (1.2-3.4) K/uL [place] # (Auto) (0.11-0.59) K/uL Eos # (Auto) (0-0.5) K/uL Baso # (Auto) (0-0.2) K/uL Immature Gran # (Auto) (0.00-0.02) K/uL PT (9.0-12.0) Seconds INR (0.9-1.1) APTT (21.0-31.0) Seconds PTT Ratio Sodium (136-145) mmol/L Potassium (3.5-5.1) mmol/L Chloride (98-107) mmol/L Carbon Dioxide (21-32) mmol/L Anion Gap (3-11) BUN (7-18) mg/dl Creatinine (0.6-1.4) mg/dl Est Cr Clr Drug Dosing ml/min Est GFR ( Amer) Est GFR (Non-Af Amer) BUN/Creatinine Ratio (10-20) Glucose (70-99) mg/dl Calcium (8.5-10.1) mg/dl Total Bilirubin (0.2-1) mg/dl AST (15-37) U/L ALT (12-78) U/L Alkaline Phosphatase (45-117) U/L Troponin I (0-0.045) ng/ml Total Protein (6.4-8.2) gm/dl Albumin (3.4-5.0) gm/dl Globulin (2.5-4.0) gm/dl Albumin/Globulin Ratio (0.9-2) COVID-19 Eval Order SARS-CoV-2, RNA, NAAT (NEGATIVE) Blood Type A Positive Antibody Screen NEGATIVE Crossmatch See Detail Administered Medications Amlodipine Besylate (Amlodipine Besylate 5 Mg Tab) 5 mg PO QAM ANTONY Stop: 07/11/20 08:59 Last Admin: 06/14/20 08:41 Dose: 5 mg Documented by: [id number] Admin: 06/13/20 08:54 Dose: 5 mg Documented by: [id number] Admin: 06/12/20 08:18 Dose: 5 mg Documented by: [id number] Admin: 06/11/20 08:48 Dose: 5 mg Documented by: [id number] Atorvastatin Calcium (Atorvastatin 40 Mg Tab) 40 mg PO PM ANTONY Stop: 07/10/20 20:59 Last Admin: 06/13/20 20:33 Dose: 40 mg Documented by: [id number] Admin: 06/12/20 21:36 Dose: 40 mg Documented by: [id number] Admin: 06/11/20 20:55 Dose: 40 mg Documented by: [id number] Admin: 06/10/20 21:55 Dose: 40 mg Documented by: [id number] Carvedilol (Carvedilol 3.125 Mg Tab) 3.125 mg PO BID ANTONY Stop: 07/10/20 20:59 Last Admin: 06/14/20 08:40 Dose: 3.125 mg Documented by: [id number] Admin: 06/13/20 20:33 Dose: 3.125 mg Documented by: [id number] Admin: 06/13/20 08:54 Dose: 3.125 mg Documented by: [id number] Admin: 06/12/20 21:37 Dose: 3.125 mg Documented by: [id number] Admin: 06/12/20 08:18 Dose: 3.125 mg Documented by: [id number] Admin: 06/11/20 20:55 Dose: 3.125 mg Documented by: [id number] Admin: 06/11/20 08:46 Dose: 3.125 mg Documented by: [id number] Admin: 06/10/20 21:55 Dose: 3.125 mg Documented by: [id number] Clonidine HCl (Clonidine Hcl 0.1 Mg Tab) 0.1 mg PO QPM ANTONY Stop: 07/10/20 20:59 Last Admin: 06/13/20 20:33 Dose: 0.1 mg Documented by: [id number] Admin: 06/12/20 21:36 Dose: 0.1 mg Documented by: [id number] Admin: 06/11/20 20:55 Dose: 0.1 mg Documented by: [id number] Admin: 06/10/20 21:54 Dose: 0.1 mg Documented by: [id number] Clonidine HCl (Clonidine Hcl 0.1 Mg Tab) 0.2 mg PO QAM ANTONY Stop: 07/11/20 08:59 Last Admin: 06/14/20 08:39 Dose: 0.2 mg Documented by: [id number] Admin: 06/13/20 08:54 Dose: 0.2 mg Documented by: [id number] Admin: 06/12/20 08:20 Dose: 0.2 mg Documented by: [id number] Admin: 06/11/20 08:46 Dose: 0.2 mg Documented by: [id number] Docusate Sodium (Docusate Sodium 100 Mg Cap) 100 mg PO BID ANTONY Stop: 07/11/20 20:59 Last Admin: 06/14/20 08:39 Dose: 100 mg Documented by: [id number] Admin: 06/13/20 20:33 Dose: 100 mg Documented by: [id number] Admin: 06/13/20 08:54 Dose: 100 mg Documented by: [id number] Admin: 06/12/20 21:36 Dose: 100 mg Documented by: [id number] Admin: 06/12/20 08:22 Dose: 100 mg Documented by: [id number] Admin: 06/11/20 20:54 Dose: 100 mg Documented by: [id number] Famotidine (Famotidine 20 Mg Tab) 20 mg PO DAILY ANTONY Stop: 07/11/20 08:59 Last Admin: 06/14/20 08:40 Dose: 20 mg Documented by: [id number] Admin: 06/13/20 08:53 Dose: 20 mg Documented by: [id number] Admin: 06/12/20 08:18 Dose: 20 mg Documented by: [id number] Admin: 06/11/20 08:47 Dose: 20 mg Documented by: [id number] Furosemide (Furosemide 80 Mg Tab) 80 mg PO BID17 ANTONY Stop: 07/10/20 20:59 Last Admin: 06/14/20 16:26 Dose: 80 mg Documented by: [id number] Admin: 06/14/20 08:41 Dose: 80 mg Documented by: [id number] Admin: 06/13/20 18:19 Dose: 80 mg Documented by: [id number] Admin: 06/13/20 09:07 Dose: Not Given Documented by: [id number] Admin: 06/12/20 17:21 Dose: 80 mg Documented by: [id number] Admin: 06/12/20 08:18 Dose: 80 mg Documented by: [id number] Admin: 06/11/20 17:48 Dose: 80 mg Documented by: [id number] Admin: 06/11/20 08:47 Dose: 80 mg Documented by: [id number] Admin: 06/10/20 21:55 Dose: 80 mg Documented by: [id number] Heparin Sodium (Porcine) (Heparin Sod 5,000 Unit/0.5 Ml Vial) 7,500 units SQ Q8 ANTONY Stop: 07/13/20 21:59 Last Admin: 06/14/20 13:58 Dose: 7,500 units Documented by: [id number] Admin: 06/14/20 05:55 Dose: 7,500 units Documented by: [id number] Admin: 06/13/20 22:01 Dose: 7,500 units Documented by: [id number] Dexamethasone Sodium Phosphate (6 mg/ Syringe) 1.5 mls @ 1 mls/min IV DAILY ANTONY Stop: 07/11/20 08:59 Last Admin: 06/14/20 08:40 Dose: 1 mls/min Documented by: [id number] Admin: 06/13/20 08:53 Dose: 1 mls/min Documented by: [id number] Admin: 06/12/20 08:20 Dose: 1 mls/min Documented by: [id number] Admin: 06/11/20 08:46 Dose: 1 mls/min Documented by: [id number] Insulin Aspart (Insulin Aspart 100 Units/Ml 3 Ml Pen) 0 units SC ACHS ANTONY Stop: 07/10/20 20:59 Last Admin: 06/14/20 17:49 Dose: 9 units Documented by: [id number] Cosigned by: [id number] Admin: 06/14/20 12:18 Dose: 12 units Documented by: [id number] Cosigned by: [id number] Admin: 06/14/20 08:47 Dose: Not Given Documented by: [id number] Cosigned by: [id number] Admin: 06/13/20 20:44 Dose: 17 units Documented by: [id number] Cosigned by: [id number] Admin: 06/13/20 18:21 Dose: 16 units Documented by: [id number] Cosigned by: [id number] Admin: 06/13/20 13:17 Dose: 14 units Documented by: [id number] Cosigned by: [id number] Admin: 06/13/20 08:56 Dose: 13 units Documented by: [id number] Cosigned by: [id number] Admin: 06/12/20 21:38 Dose: 4 units Documented by: [id number] Cosigned by: [id number] Admin: 06/12/20 17:19 Dose: 14 units Documented by: [id number] Cosigned by: [id number] Admin: 06/12/20 12:16 Dose: 17 units Documented by: [id number] Cosigned by: [id number] Admin: 06/12/20 08:19 Dose: 12 units Documented by: [id number] Cosigned by: [id number] Admin: 06/11/20 20:52 Dose: 5 units Documented by: [id number] Cosigned by: [id number] Admin: 06/11/20 17:47 Dose: 15 units Documented by: [id number] Cosigned by: [id number] Admin: 06/11/20 14:12 Dose: 8 units Documented by: [id number] Cosigned by: [id number] Admin: 06/11/20 08:00 Dose: 9 units Documented by: [id number] Cosigned by: [id number] Admin: 06/10/20 21:29 Dose: Not Given Documented by: [id number] Sevelamer HCl (Sevelamer Hcl 800 Mg Tablet) 800 mg PO TIDM [facility] Stop: 07/11/20 07:59 Last Admin: 06/14/20 16:25 Dose: 800 mg Documented by: [id number] Admin: 06/14/20 12:16 Dose: 800 mg Documented by: [id number] Admin: 06/14/20 08:19 Dose: 800 mg Documented by: [id number] Admin: 06/13/20 18:19 Dose: 800 mg Documented by: [id number] Admin: 06/13/20 13:17 Dose: 800 mg Documented by: [id number] Admin: 06/13/20 08:54 Dose: 800 mg Documented by: [id number] Admin: 06/12/20 17:21 Dose: 800 mg Documented by: [id number] Admin: 06/12/20 12:17 Dose: 800 mg Documented by: [id number] Admin: 06/12/20 08:18 Dose: 800 mg Documented by: [id number] Admin: 06/11/20 17:30 Dose: 800 mg Documented by: [id number] Admin: 06/11/20 14:12 Dose: 800 mg Documented by: [id number] Admin: 06/11/20 08:47 Dose: 800 mg Documented by: [id number] Tamsulosin HCl (Tamsulosin Hcl 0.4 Mg Cap) 0.4 mg PO QAM [facility] [place] Stop: 07/11/20 08:59 Last Admin: 06/14/20 08:39 Dose: 0.4 mg Documented by: [id number] Admin: 06/13/20 08:53 Dose: 0.4 mg Documented by: [id number] Admin: 06/12/20 08:18 Dose: 0.4 mg Documented by: [id number] Admin: 06/11/20 08:47 Dose: 0.4 mg Documented by: [id number] Vitamin B Complex/Folic Acid (Nephrocaps) 1 cap PO QPM ANTONY Stop: 07/10/20 20:59 Last Admin: 06/13/20 20:33 Dose: 1 cap Documented by: [id number] Admin: 06/12/20 21:37 Dose: 1 cap Documented by: [id number] Admin: 06/11/20 20:54 Dose: 1 cap Documented by: [id number] Admin: 06/10/20 21:55 Dose: 1 cap Documented by: [id number] Warfarin Sodium (Warfarin Sod 3 Mg Tab) 3 mg PO DAILY@1600 ANTONY Stop: 07/13/20 15:59 Last Admin: 06/14/20 16:26 Dose: 3 mg Documented by: [id number] Admin: 06/13/20 18:18 Dose: 3 mg Documented by: [id number] Discontinued Medications Dexamethasone (Dexamethasone Sod Inj 10 Mg/Ml Vial) 6 mg IV NOW ONE Stop: 06/10/20 16:53 Last Admin: 06/10/20 21:55 Dose: Not Given Documented by: [id number] Epoetin Jean (Epoetin Jean 20,000 Units/Ml Vial) 20,000 units IV TODAY@0833 [facility] Stop: 06/11/20 17:01 Last Admin: 06/11/20 11:14 Dose: 20,000 units Documented by: [id number] Heparin Sodium (Porcine) (Heparin Sod (Porcine) 1000 Unit/Ml 10 Ml Vial) 2,000 units IV TODAY@0833 [facility] Stop: 06/11/20 17:01 Last Admin: 06/11/20 11:00 Dose: Not Given Documented by: [id number] Heparin Sodium (Porcine) (Heparin Sod (Porcine) 1000 Unit/Ml 10 Ml Vial) 1,000 units IV Q1H [facility] [place] Stop: 06/11/20 10:46 Last Admin: 06/11/20 11:14 Dose: Not Given Documented by: [id number] Admin: 06/11/20 11:01 Dose: Not Given Documented by: [id number] Admin: 06/11/20 11:00 Dose: Not Given Documented by: [id number] Iron Sucrose 100 mg/ Syringe 5 mls @ 1 mls/min IV TODAY@0832 [facility] [place] Stop: 06/11/20 17:01 Last Admin: 06/11/20 10:59 Dose: 1 mls/min Documented by: [id number] Insulin Glargine (Insulin Glargine Solostar 100 Units/Ml 3 Ml Pen) 50 units SQ BID [facility] Stop: 07/10/20 20:59 Last Admin: 06/14/20 09:41 Dose: 50 units Documented by: [id number] Cosigned by: [id number] Admin: 06/13/20 22:00 Dose: 50 units Documented by: [id number] Cosigned by: [id number] Admin: 06/13/20 08:55 Dose: 50 units Documented by: [id number] Cosigned by: [id number] Admin: 06/12/20 21:38 Dose: 50 units Documented by: [id number] Cosigned by: [id number] Admin: 06/12/20 08:19 Dose: 50 units Documented by: [id number] Cosigned by: [id number] Admin: 06/11/20 20:53 Dose: 50 units Documented by: [id number] Cosigned by: [id number] Admin: 06/11/20 09:04 Dose: 50 units Documented by: [id number] Cosigned by: [id number] Admin: 06/10/20 21:56 Dose: 50 units Documented by: [id number] Cosigned by: [id number] Warfarin Sodium (Warfarin Sod 3 Mg Tab) 3 mg PO ONE ONE Stop: 06/11/20 18:46 Last Admin: 06/11/20 20:54 Dose: 3 mg Documented by: [id number] Warfarin Sodium (Warfarin Sod 3 Mg Tab) 3 mg PO ONE ONE Stop: 06/12/20 22:11 Last Admin: 06/12/20 23:20 Dose: 3 mg Documented by: [id number] Discharge Plan Visit Data Chief Complaint: Dizziness ED Provider: Mile Walton Discharge Problem: Pneumonia due to 2019 novel coronavirus, CAD (coronary artery disease), S/P CABG (coronary artery bypass graft) Patient Disposition: Admitted As Inpatient Discharge Instructions Interventions: ED Discharge Assessment Last Done: 06/10/20 18:27 Discharge Problem: CAD (coronary artery disease) Qualifiers: Coronary Disease-Associated Artery/Lesion type: [place] artery [place] vs. transplanted heart: [place] heart Associated angina: with unspecified angina Qualified Code(s): I25.119 - Atherosclerotic heart disease of [place] coronary artery with unspecified angina pectoris
[2020-06-10] MEDS ORDERED: GLUCOSE 40% GEL 15 GM TUBE PO PRN (19:22)
[2020-06-10] MEDS ORDERED: ACETAMINOPHEN 325 MG TAB PO PRN (19:22)
[2020-06-10] MEDS ORDERED: NITROGLYCERIN SL 0.4 MG/TAB TAB SL PRN (19:22)
[2020-06-10] MEDS ORDERED: MAGNESIUM HYDROXIDE SUSP 30 ML UDC PO PRN (19:22)
[2020-06-10] MEDS ORDERED: ALBUTEROL HFA 8 GM INHALER INH PRN (19:22)
[2020-06-10] MEDS ORDERED: SERTRALINE HCL 50 MG TABLET PO PRN (19:22)
[2020-06-10] MEDS ORDERED: LORATADINE 10 MG TAB PO PRN (19:22)
[2020-06-10] MEDS ORDERED: CARBOHYDRATES FOR HYPOGLYCEMIA PO PRN (19:22)
[2020-06-10] MEDS ORDERED: ONDANSETRON INJ 2 MG/ML 2 ML VIAL IV PRN (19:22)
[2020-06-10] MEDS ORDERED: GLUCAGON FOR INJ 1 MG VIAL SQ PRN (19:22)
[2020-06-10] MEDS ORDERED: DEXTROSE 50% 50 ML SYRINGE IV PRN (19:22)
[2020-06-10] MEDS ORDERED: GLUCOSE 10 TABS/TUBE PO PRN (19:22)
[2020-06-10] MEDS ORDERED: oxyCODONE HCL IR 5 MG TAB (IMMEDIATE RELEASE) PO PRN (19:47)
[2020-06-10 20:27] LABS: Ferritin 1479.4 ng/ml (8-388); Troponin I 0.039 ng/ml (0-0.045)
[2020-06-10 20:46] LABS: Folate (Folic Acid) > 20.00 ng/ml (>5.38)
[2020-06-10 21:27] LABS: Vitamin B12 644 pg/ml (193-986)
[2020-06-10] MEDS: INSULIN ASPART 100 UNITS/ML 3 ML PEN SC SCH (21:29)
[2020-06-10] MEDS: cloNIDine HCL 0.1 MG TAB PO SCH (21:54)
[2020-06-10] MEDS: NEPHROCAPS PO SCH (21:55)
[2020-06-10] MEDS: carvediloL 3.125 MG TAB PO SCH (21:55)
[2020-06-10] MEDS: FUROSEMIDE 80 MG TAB PO SCH (21:55)
[2020-06-10] MEDS: ATORVASTATIN 40 MG TAB PO SCH (21:55)
[2020-06-10] MEDS: INSULIN GLARGINE SOLOSTAR 100 UNITS/ML 3 ML PEN SQ SCH (21:56)
[2020-06-11 07:14] LABS: Basophils # (auto) 0.01 K/uL (0-0.2); Basophils % (auto) 0.1 %; Eosinophils # (auto) 0.05 K/uL (0-0.5); Eosinophils % (auto) 0.7 %; Hematocrit (blood only) 27.6 % (42-52); Hemoglobin 8.6 g/dL (14.0-18.0); Immature Granulocytes # (auto) 0.02 K/uL (0.00-0.02); Immature Granulocytes % (auto) 0.3 %; Lymphocytes # (auto) 0.91 K/uL (1.2-3.4); Lymphocytes % (auto) 12.4 %; Mean Corpuscular Hgb Conc 31.2 g/dL (32-36); Mean Corpuscular Volume 96.2 fL (80-100); Mean Platelet Volume 10.1 fL (7.4-10.4); Monocytes # (auto) 0.57 K/uL (0.11-0.59); Monocytes % (auto) 7.7 %; Neutrophils % (auto) 78.8 %; Platelet Count 330 K/uL (130-400); RDW Coefficient of Variation 16.3 % (11.5-14.5); RDW Standard Deviation 56.8 fL (36.4-46.3); Red Blood Count 2.87 M/uL (4.7-6.1); White Blood Count 7.36 K/uL (4.8-10.8)
[2020-06-11 07:23] LABS: INR 1.6 (0.9-1.1); Prothrombin Time 16.7 Seconds (9.0-12.0)
[2020-06-11 07:31] LABS: Estimated Average Glucose 171 mg/dl; Hemoglobin A1C 7.6 % (4.5-5.6)
[2020-06-11 07:53] LABS: BUN Creatinine Ratio 10.9 (10-20); Calcium 8.4 mg/dl (8.5-10.1); Creatinine Clr Calc Pharmacy 13.3 ml/min; Est GFR (African American) 8.3; Est GFR (Non-African American) 7.2; Potassium 4.9 mmol/L (3.5-5.1)
[2020-06-11] MEDS: INSULIN ASPART 100 UNITS/ML 3 ML PEN SC SCH ×4 (08:00→20:52)
[2020-06-11] MEDS ORDERED: IRON SUCROSE 100 MG in SYRINGE 0 ML IV SCH (08:32)
[2020-06-11] MEDS ORDERED: SODIUM CHLORIDE 0.9% 1000ML 1,000 ML IV PRN (08:32)
[2020-06-11] MEDS ORDERED: HEPARIN SOD (PORCINE) 1000 UNIT/ML 10 ML VIAL IV SCH (08:33)
[2020-06-11] MEDS ORDERED: EPOETIN ALFA 20,000 UNITS/ML VIAL IV SCH (08:33)
[2020-06-11] MEDS: cloNIDine HCL 0.1 MG TAB PO SCH ×2 (08:46→20:55)
[2020-06-11] MEDS: carvediloL 3.125 MG TAB PO SCH ×2 (08:46→20:55)
[2020-06-11] MEDS: DEXAMETHASONE SOD PHOSPHATE 6 MG in SYRINGE 0 ML IV SCH (08:46)
[2020-06-11] MEDS: TAMSULOSIN HCL 0.4 MG CAP PO SCH (08:47)
[2020-06-11] MEDS: SEVELAMER HCL 800 MG TABLET PO SCH ×3 (08:47→17:30)
[2020-06-11] MEDS: FAMOTIDINE 20 MG TAB PO SCH (08:47)
[2020-06-11] MEDS: FUROSEMIDE 80 MG TAB PO SCH ×2 (08:47→17:48)
[2020-06-11] MEDS: amLODIPine BESYLATE 5 MG TAB PO SCH (08:48)
[2020-06-11] MEDS: INSULIN GLARGINE SOLOSTAR 100 UNITS/ML 3 ML PEN SQ SCH ×2 (09:04→20:53)
--- NOTE | 2020-06-11 09:10 | Nephrology Consultation ---
Date of Consultation June 11, 2020 Assessment & Plan (1) CKD (chronic kidney disease), stage V: * HD TTS. Orders for HD today have been entered into the EMR and discussed with the dialysis nurse. * EDW recently reduced to 121 kg. * Will attempt UF 3 L and re-evaluate tomorrow for additional HD needs at that time. * 2K bath. Clearances have been at goal and AVF functioning well. Dialyzes via a right brachiocephalic AV fistula. Blood flows have been appropriate, typically 450. 180 Optiflux dialyzer. * CKD attributed to diabetes and hypertension. Dialysis dependent. Unfortunately does not make a significant amount of urine despite being maintained on diuretics. * Remains on Renvela as a phosphate binder. * Medications appropriately dosed for kidney function. * Repeat metabolic profile with AM labs tomorrow. (2) HTN (hypertension): * BP acceptable. * No antihypertensives held or adjusted for HD today. (3) Anemia: * Hgb 9.1 when checked during dialysis 06/04/2020. * Epogen 89030 units with HD today. * Venofer 100 mg with HD. * Repeat H/H in the AM. (4) Pneumonia due to 2019 novel coronavirus: * Remdesivir deferred due to renal dysfunction. * Supportive care and dexamethasone. History of Present Illness Reason for Consultation: ESRD on HD Requesting Physician: Isma Sims Attending Physician: Isma Sism History of Present Illness Mr. Angel Solorio is a 70-year-old male with end-stage renal disease who is on maintenance hemodialysis in-center at [facility]. Kidney disease has been attributed to diabetes mellitus and hypertension. He has been on hemodialysis for approximately 2 years. Angel dialyzes on a TTS schedule. He completed his last treatment on 06/06/2020 without complications. Unfortunately, he missed subsequent scheduled outpatient treatments due to weakness, fatigue, and repeated falls. EDW was recently reduced from 122 to 121 kg. Angel left dialysis at 121 kg on 06/06/2020. He dialyzes for 4 hours with a 180 Optiflux. Ultrafiltration is often limited by significant cramping during dialysis. IDGW often >4 kg. Angel has been listed for transplant through the [facility]. His medical history is notable for coronary artery disease having recent CABG at [facility] in [place] following his most recent admission to [facility] earlier this month. Angel was discharged home on 06/03/2020. He states that since returning home, weakness and dyspnea have been progressive. He was falling frequently. He is COVID +. Symptoms have improved overnight with supplemental oxygen. Angel reports that quality of sleep he had last night was the best he has had since he was [place] [facility] History also includes prior PCI, heart failure with preserved ejection fraction, intermittent atrial fibrillation / atrial flutter with AV node dysfunction, as well obstructive sleep apnea. He has undergone recent evaluation the cardiology clinic for his atrial arrhythmia and bradycardia. Laboratory studies have been notable for uncontrolled hyperphosphatemia. Otherwise electrolytes have been appropriate. Angel was recently admitted to [facility] in January and March with volume overload. He was admitted earlier this month with NSTEMI. He was taken for emergent cardiac cath which demonstrated >90% LMCA with disease involving distal LMCA, ostial LAD, and proximal circumflex. I saw and evaluated Angel in the ICU following the procedure. Angel had been accepted with arrangements for transfer to [facility] for CAB[place] at that time. Laboratory studies obtained at the dialysis unit on 06/04/2020 demonstrated a hemoglobin of 9.1. Angel is maintained on Micera as an outpatient. He has received Venofer 100 mg with each HD treatment. I called Angel remotely on the phone today but did not directly exam him due to COVID. I also reviewed records from [facility] and [facility]. Additional records from [facility] have been requested. AVF has been working appropriately. Allergies Allergy/AdvReac Type Severity Reaction Status Date / Time ragweed pollen Allergy Mild [place] Verified 05/21/20 02:09 [place] Allergy Unknown rash from Verified 05/21/20 02:09 metal Home Medications Medication Instructions Recorded Confirmed Type albuterol sulfate 2 puff INHALATION Q6H PRN 01/06/19 06/10/20 History furosemide [Lasix] 80 mg PO BID 01/06/19 06/10/20 History insulin aspart U-100 [Novolog 10 unit SUBCUT AC 01/06/19 06/10/20 History PenFill U-100 Insulin] loratadine 10 mg PO DAILY PRN 01/06/19 06/10/20 History sertraline 50 mg PO QAM PRN 01/06/19 06/10/20 History tamsulosin 0.4 mg PO QAM 01/06/19 06/10/20 History Lantus Solostar U-100 Insulin 50 unit SUBCUT BID 03/06/19 06/10/20 History clopidogrel [Plavix] 75 mg PO DAILY 03/06/19 06/10/20 History ProRenal 1 tab PO QPM 09/26/19 06/10/20 History sevelamer carbonate [Renvela] 800 mg PO TIDM 09/26/19 06/10/20 History amlodipine 10 mg tablet 5 mg PO QAM tab 12/18/19 06/10/20 History clonidine HCl 0.1 mg tablet See Rx Instructions .ROUTE .COMPLEX 12/18/19 History atorvastatin 40 mg PO PM #30 tab 12/27/19 06/10/20 Rx nitroglycerin [Nitrostat] 0.4 mg SUBLINGUAL UD PRN #20 tab 12/27/19 06/10/20 Rx carvedilol [Coreg] 3.125 mg PO BID #0 tab 05/18/20 06/10/20 Rx aspirin 81 mg PO DAILY 05/21/20 06/10/20 History famotidine 20 mg PO DAILY 06/10/20 06/10/20 History oxycodone 5 mg PO DIRECTED PRN 06/10/20 06/10/20 History warfarin See Rx Instructions .ROUTE .COMPLEX 06/10/20 06/10/20 History Patient History Medical History Anemia CAD (coronary artery disease) s/p LAD stents (2018 and 2019) Diabetes Dyslipidemia HTN (hypertension) Paroxysmal atrial fibrillation Secondary hyperparathyroidism of renal origin Sinus node dysfunction Sleep apnea does not use CPAP Surgical History AV fistula History of loop recorder Implanted 05/01/2019 S/P CABG (coronary artery bypass graft) Family History (Updated 06/11/20 @ 09:03 by Tobias Richard DO) Other Hypertension Denies family history of Kidney disease Social History Smoking Status: Former smoker Tobacco Type: Cigarettes Cigarettes Per Day: 10; Second Hand Exposure: No; Do You Dip or Chew Tobacco: No; Tobacco Cessation Education Requested by Patient: No Hx Alcohol Use: Yes Alcohol type: beer and wine Hx Substance Use: Yes Last Used Substance Other:: 10 years ago Preferred Language: Slovenian Communication Ability: Effective [employer] Required: No Beliefs That Will Affect Care: None marital status: Current Living Situation: Alone How many Children do You have: 0 Other Information That Helps Us Care for You: No Feels Safe at Home: Yes Safety Concerns: Feels Safe At This Time Assistive Devices: Oxygen - at Night and Walker Assistive Devices Comment: uses oxygen as needed Review of Systems Review of Systems: All systems reviewed & are unremarkable except as noted in HPI & below Physical Exam Physical Exam: Deferred due to COVID 19 pandemic Results & Data ([facility]) Vital Signs (Past 12 Hours) Vital Signs Temp Pulse Pulse Resp BP Pulse Ox 06/11/20 07:37 71 18 92 06/11/20 07:29 36.9 C 73 19 146/81 H 92 06/11/20 04:44 65 06/11/20 03:31 71 16 95 06/10/20 23:17 67 16 94 06/10/20 23:09 37.0 C 62 22 112/60 91 Laboratory Results Laboratory Results - last 24 hr 06/10/20 06/10/20 06/10/20 15:20 15:20 15:20 WBC 6.87 RBC 2.82 L Hgb 8.5 L Hct 26.8 L MCV 95.0 MCH 30.1 MCHC 31.7 L RDW Std Deviation 56.4 H RDW Coeff of Atif 16.2 H Plt Count 316 MPV 9.6 Immature Gran % (Auto) 0.1 Neut % (Auto) 75.8 Lymph % (Auto) 13.5 [place] % (Auto) 9.9 Eos % (Auto) 0.6 Baso % (Auto) 0.1 Neut # (Auto) 5.20 Lymph # (Auto) 0.93 L [place] # (Auto) 0.68 H Eos # (Auto) 0.04 Baso # (Auto) 0.01 Immature Gran # (Auto) 0.01 PT INR APTT PTT Ratio Sodium 137 Potassium 4.9 Chloride 100 Carbon Dioxide 32 Anion Gap 5.0 BUN 73 H Creatinine 6.97 H* Est Cr Clr Drug Dosing 13.6 Est GFR ( Amer) 8.5 Est GFR (Non-Af Amer) 7.4 BUN/Creatinine Ratio 10.4 Glucose 110 H POC Glucose Estimat Average Glucose Hemoglobin A1c Calcium 8.1 L Iron TIBC Transferrin Ferritin Total Bilirubin 0.3 AST 23 ALT 18 Alkaline Phosphatase 40 L Troponin I 0.038 Total Protein 7.0 Albumin 2.7 L Globulin 4.3 H Albumin/Globulin Ratio 0.6 L Vitamin B12 Folate COVID-19 Eval Order SARS-CoV-2, RNA, NAAT Blood Type Blood Type Recheck Antibody Screen Crossmatch 06/10/20 06/10/20 06/10/20 15:20 15:40 15:40 WBC RBC Hgb Hct MCV MCH MCHC RDW Std Deviation RDW Coeff of Atif Plt Count MPV Immature Gran % (Auto) Neut % (Auto) Lymph % (Auto) [place] % (Auto) Eos % (Auto) Baso % (Auto) Neut # (Auto) Lymph # (Auto) [place] # (Auto) Eos # (Auto) Baso # (Auto) Immature Gran # (Auto) PT 15.4 H INR 1.5 H APTT 44.7 H PTT Ratio 1.6 Sodium Potassium Chloride Carbon Dioxide Anion Gap BUN Creatinine Est Cr Clr Drug Dosing Est GFR ( Amer) Est GFR (Non-Af Amer) BUN/Creatinine Ratio Glucose POC Glucose Estimat Average Glucose Hemoglobin A1c Calcium Iron TIBC Transferrin Ferritin Total Bilirubin AST ALT Alkaline Phosphatase Troponin I Total Protein Albumin Globulin Albumin/Globulin Ratio Vitamin B12 Folate COVID-19 Eval Order Covid19 IDNow [facility] SARS-CoV-2, RNA, NAAT POSITIVE A* Blood Type Blood Type Recheck Antibody Screen Crossmatch 06/10/20 06/10/20 06/10/20 16:31 19:36 19:36 WBC RBC Hgb Hct MCV MCH MCHC RDW Std Deviation RDW Coeff of Atif Plt Count MPV Immature Gran % (Auto) Neut % (Auto) Lymph % (Auto) [place] % (Auto) Eos % (Auto) Baso % (Auto) Neut # (Auto) Lymph # (Auto) [place] # (Auto) Eos # (Auto) Baso # (Auto) Immature Gran # (Auto) PT INR APTT PTT Ratio Sodium Potassium Chloride Carbon Dioxide Anion Gap BUN Creatinine Est Cr Clr Drug Dosing Est GFR ( Amer) Est GFR (Non-Af Amer) BUN/Creatinine Ratio Glucose POC Glucose Estimat Average Glucose Hemoglobin A1c Calcium Iron 10 L TIBC 215 L Transferrin 155 L Ferritin 1479.4 H Total Bilirubin AST ALT Alkaline Phosphatase Troponin I 0.039 Total Protein Albumin Globulin Albumin/Globulin Ratio Vitamin B12 644 Folate > 20.00 COVID-19 Eval Order SARS-CoV-2, RNA, NAAT Blood Type A Positive Blood Type Recheck Antibody Screen NEGATIVE Crossmatch See Detail 06/10/20 06/11/20 06/11/20 20:51 01:18 01:18 WBC RBC Hgb Hct MCV MCH MCHC RDW Std Deviation RDW Coeff of Atif Plt Count MPV Immature Gran % (Auto) Neut % (Auto) Lymph % (Auto) [place] % (Auto) Eos % (Auto) Baso % (Auto) Neut # (Auto) Lymph # (Auto) [place] # (Auto) Eos # (Auto) Baso # (Auto) Immature Gran # (Auto) PT INR APTT PTT Ratio Sodium Potassium Chloride Carbon Dioxide Anion Gap BUN Creatinine Est Cr Clr Drug Dosing Est GFR ( Amer) Est GFR (Non-Af Amer) BUN/Creatinine Ratio Glucose POC Glucose 107 H Estimat Average Glucose Hemoglobin A1c Calcium Iron TIBC Transferrin Ferritin Total Bilirubin AST ALT Alkaline Phosphatase Troponin I 0.031 Total Protein Albumin Globulin Albumin/Globulin Ratio Vitamin B12 Folate COVID-19 Eval Order SARS-CoV-2, RNA, NAAT Blood Type Blood Type Recheck A Positive Antibody Screen Crossmatch 06/11/20 06/11/20 06/11/20 05:35 05:35 05:35 WBC 7.36 RBC 2.87 L Hgb 8.6 L Hct 27.6 L MCV 96.2 MCH 30.0 MCHC 31.2 L RDW Std Deviation 56.8 H RDW Coeff of Atif 16.3 H Plt Count 330 MPV 10.1 Immature Gran % (Auto) 0.3 Neut % (Auto) 78.8 Lymph % (Auto) 12.4 [place] % (Auto) 7.7 Eos % (Auto) 0.7 Baso % (Auto) 0.1 Neut # (Auto) 5.80 Lymph # (Auto) 0.91 L [place] # (Auto) 0.57 Eos # (Auto) 0.05 Baso # (Auto) 0.01 Immature Gran # (Auto) 0.02 PT 16.7 H INR 1.6 H APTT PTT Ratio Sodium 134 L Potassium 4.9 Chloride 97 L Carbon Dioxide 27 Anion Gap 10.0 BUN 79 H Creatinine 7.13 H* Est Cr Clr Drug Dosing 13.3 Est GFR ( Amer) 8.3 Est GFR (Non-Af Amer) 7.2 BUN/Creatinine Ratio 10.9 Glucose 99 POC Glucose Estimat Average Glucose Hemoglobin A1c Calcium 8.4 L Iron TIBC Transferrin Ferritin Total Bilirubin AST ALT Alkaline Phosphatase Troponin I Total Protein Albumin Globulin Albumin/Globulin Ratio Vitamin B12 Folate COVID-19 Eval Order SARS-CoV-2, RNA, NAAT Blood Type Blood Type Recheck Antibody Screen Crossmatch 06/11/20 06/11/20 05:35 08:05 WBC RBC Hgb Hct MCV MCH MCHC RDW Std Deviation RDW Coeff of Atif Plt Count MPV Immature Gran % (Auto) Neut % (Auto) Lymph % (Auto) [place] % (Auto) Eos % (Auto) Baso % (Auto) Neut # (Auto) Lymph # (Auto) [place] # (Auto) Eos # (Auto) Baso # (Auto) Immature Gran # (Auto) PT INR APTT PTT Ratio Sodium Potassium Chloride Carbon Dioxide Anion Gap BUN Creatinine Est Cr Clr Drug Dosing Est GFR ( Amer) Est GFR (Non-Af Amer) BUN/Creatinine Ratio Glucose POC Glucose 99 Estimat Average Glucose 171 Hemoglobin A1c 7.6 H Calcium Iron TIBC Transferrin Ferritin Total Bilirubin AST ALT Alkaline Phosphatase Troponin I Total Protein Albumin Globulin Albumin/Globulin Ratio Vitamin B12 Folate COVID-19 Eval Order SARS-CoV-2, RNA, NAAT Blood Type Blood Type Recheck Antibody Screen Crossmatch PG Care Time/CCT Total # of Minutes Spent Total Time Spent with Patient: Total time spent is greater than 50% in coordination of care (as documented) at patient's floor/unit and/or counseling patient: Coding Level of Care Code 55792 Inpt Consult Level 4 Diagnoses CKD (chronic kidney disease), stage V N18.5 HTN (hypertension) I10 Hypertension type: essential hypertension Anemia D64.9 Pneumonia due to 2019 novel coronavirus U07.1; J12.82 (1) HTN (hypertension) Hypertension type: essential hypertension Qualified Code(s): I10 - Essential (primary) hypertension
[2020-06-11] MEDS: HEPARIN SOD (PORCINE) 1000 UNIT/ML 10 ML VIAL IV SCH ×3 (11:00→11:14)
--- NOTE | 2020-06-11 18:13 | Hospitalist Progress Note ---
Date of Service June 11, 2020 Assessment & Plan (1) Hypoxia: In the 80s on arrival to ED COVID + on 06/03 on d/c from [facility], repeat + in the ED on admission Patient is now on high flow oxygen. Will continue on dexa, Will not use remdesivir given renal function CXR noted for b/l PNA WBC WNL, afebrile, will hold on abx for now. (2) Non-ST elevation (NSTEMI) myocardial infarction: CABG at [facility] earlier this month d/c on 06/03 to home d/c on aspirin, plavix, Coumadin-- increased yesterday to 3mg alternating with 2mg (due for 2mg on 06/10) from 2mg QD INR 1.5 Holding aspirin, plavix, coumadin due to drop in Hb Can resume if hemoccult neg Trop 0.039, trending down Records requested [place] [facility] (3) Paroxysmal atrial fibrillation: continue home meds Holding coumadin as above (4) CKD (chronic kidney disease), stage V: // HD Missed HD on 06/09 due to fall Renal c/s pending (5) BPH (benign prostatic hyperplasia): continue home meds (6) Depression: continue home meds (7) Diabetes mellitus type 2 in obese: Lantus + SSI PRN A1c pending (8) Hypercholesterolemia: continue home meds (9) Sleep apnea: noncompliant with CPAP (10) HTN (hypertension): continue home meds (11) Anemia: Hb 8.5 on admission Had been 12.5 on 05/20/20 Hx of iron deficiency, iron panel pending MCV 95, B12/folate pending will continue to monitor hemoglobin (12) DVT prophylaxis: Resume coumadin if able SCDs (13) Fall: Possibly related to COVID status vs anemia in the setting of recent CABG PT/OT pending CT head: neg for acute Admission and Anticipated Discharge Date Admission Date: June 10, 2020 Subjective Patient reports feeling better. Now requires high flow oxygen. She has no new complaints at this time. Review of Systems Review of Systems: All systems reviewed & are unremarkable except as noted in HPI & below Physical Exam Physical Exam: Constitutional: WD/WN, vitals as above Eyes: normal visual morales by confrontation and + anicteric sclerae Neck: normal visual inspection and trachea midline Respiratory: normal respiratory effort; no respiratory distress Auscultation: + crackles; no wheezes Cardiovascular: Rate/Rhythm: regular rate and regular rhythm Gastrointestinal (Abdomen): Inspection/Auscultation: abdomen not distended Percussion/Palpation: abdomen soft; abdomen nontender Musculoskeletal: Head/Neck/Chest: normocephalic and head atraumatic 1+ LE edema, peripheral pulses intact Skin: no rashes, warm and dry Neurologic: awake; not confused Speech / Cognition: normal speech Psychiatric: A+Ox3, euthymic affect Results & Data Results & Data ([facility]) Vital Signs (Past 12 Hours) Vital Signs Temp Pulse Pulse Pulse Resp BP BP 06/11/20 17:45 67 135/69 06/11/20 16:04 67 20 06/11/20 15:42 36.9 C 99 H 24 98/59 L 06/11/20 15:08 110 H 06/11/20 14:15 37.0 C 69 146/61 H 06/11/20 13:40 64 127/68 06/11/20 13:20 78 138/72 06/11/20 13:00 69 134/76 06/11/20 12:40 71 136/66 06/11/20 12:20 69 121/71 06/11/20 12:00 71 137/71 06/11/20 11:46 70 20 06/11/20 11:40 65 139/64 06/11/20 11:20 65 134/59 L 06/11/20 11:10 24 06/11/20 11:00 67 105/59 L 06/11/20 10:40 65 108/55 L 06/11/20 10:20 70 110/46 L 06/11/20 09:56 37.1 C 69 06/11/20 07:37 71 18 06/11/20 07:29 36.9 C 73 19 146/81 H Pulse Ox 06/11/20 17:45 94 06/11/20 16:04 92 06/11/20 15:42 94 06/11/20 15:08 06/11/20 14:15 06/11/20 13:40 06/11/20 13:20 06/11/20 13:00 06/11/20 12:40 06/11/20 12:20 06/11/20 12:00 06/11/20 11:46 92 06/11/20 11:40 06/11/20 11:20 06/11/20 11:10 93 06/11/20 11:00 06/11/20 10:40 06/11/20 10:20 06/11/20 09:56 06/11/20 07:37 92 06/11/20 07:29 92 PG Care Time/CCT Total # of Minutes Spent Total Time Spent with Patient: Total time spent is greater than 50% in coordination of care (as documented) at patient's floor/unit and/or counseling patient: Coding Level of Care Code 35072 Subseq Hosp Care Lvl 3 Diagnoses Hypoxia R09.02 Non-ST elevation (NSTEMI) myocardial infarction I21.4 Paroxysmal atrial fibrillation I48.0 CKD (chronic kidney disease), stage V N18.5 BPH (benign prostatic hyperplasia) N40.0 Lower urinary tract symptom presence: symptoms absent Depression F33.9 Depression Type: major depressive disorder Major depression recurrence: recurrent Active/Remission status: remission status unspecified Diabetes mellitus type 2 in obese E11.69; E66.9 Hypercholesterolemia E78.00 Sleep apnea G47.30 Sleep apnea type: unspecified type HTN (hypertension) I10 Hypertension type: essential hypertension Anemia D64.9 DVT prophylaxis Z29.9 Fall W19.XXXA Time Spent (min) 35 (1) BPH (benign prostatic hyperplasia) Lower urinary tract symptom presence: symptoms absent Qualified Code(s): N40.0 - Benign prostatic hyperplasia without lower urinary tract symptoms (2) Depression Depression Type: major depressive disorder Major depression recurrence: recurrent Active/Remission status: remission status unspecified Qualified Code(s): F33.9 - Major depressive disorder, recurrent, unspecified (3) Sleep apnea Sleep apnea type: unspecified type Qualified Code(s): G47.30 - Sleep apnea, unspecified (4) HTN (hypertension) Hypertension type: essential hypertension Qualified Code(s): I10 - Essential (primary) hypertension
[2020-06-11] MEDS ORDERED: WARFARIN SOD 3 MG TAB PO ONE (18:45)
[2020-06-11] MEDS: NEPHROCAPS PO SCH (20:54)
[2020-06-11] MEDS: DOCUSATE SODIUM 100 MG CAP PO SCH (20:54)
[2020-06-11] MEDS: ATORVASTATIN 40 MG TAB PO SCH (20:55)
[2020-06-12 07:51] LABS: Hematocrit (blood only) 27.6 % (42-52); Hemoglobin 8.8 g/dL (14.0-18.0); Immature Granulocytes # (auto) 0.02 K/uL (0.00-0.02); Immature Granulocytes % (auto) 0.3 %; Lymphocytes # (auto) 0.82 K/uL (1.2-3.4); Lymphocytes % (auto) 11.9 %; Mean Corpuscular Hgb Conc 31.9 g/dL (32-36); Mean Corpuscular Volume 94.2 fL (80-100); Mean Platelet Volume 9.9 fL (7.4-10.4); Monocytes # (auto) 0.73 K/uL (0.11-0.59); Monocytes % (auto) 10.6 %; Neutrophils # (auto) 5.34 K/uL (1.4-6.5); Neutrophils % (auto) 77.2 %; Platelet Count 311 K/uL (130-400); RDW Coefficient of Variation 15.9 % (11.5-14.5); Red Blood Count 2.93 M/uL (4.7-6.1); White Blood Count 6.91 K/uL (4.8-10.8)
[2020-06-12] MEDS: FUROSEMIDE 80 MG TAB PO SCH ×2 (08:18→17:21)
[2020-06-12] MEDS: TAMSULOSIN HCL 0.4 MG CAP PO SCH (08:18)
[2020-06-12] MEDS: FAMOTIDINE 20 MG TAB PO SCH (08:18)
[2020-06-12] MEDS: amLODIPine BESYLATE 5 MG TAB PO SCH (08:18)
[2020-06-12] MEDS: SEVELAMER HCL 800 MG TABLET PO SCH ×3 (08:18→17:21)
[2020-06-12] MEDS: carvediloL 3.125 MG TAB PO SCH ×2 (08:18→21:37)
[2020-06-12] MEDS: INSULIN GLARGINE SOLOSTAR 100 UNITS/ML 3 ML PEN SQ SCH ×2 (08:19→21:38)
[2020-06-12] MEDS: INSULIN ASPART 100 UNITS/ML 3 ML PEN SC SCH ×4 (08:19→21:38)
[2020-06-12] MEDS: cloNIDine HCL 0.1 MG TAB PO SCH ×2 (08:20→21:36)
[2020-06-12] MEDS: DEXAMETHASONE SOD PHOSPHATE 6 MG in SYRINGE 0 ML IV SCH (08:20)
[2020-06-12] MEDS: DOCUSATE SODIUM 100 MG CAP PO SCH ×2 (08:22→21:36)
[2020-06-12 08:29] LABS: BUN Creatinine Ratio 9.4 (10-20); Calcium 8.8 mg/dl (8.5-10.1); Creatinine Clr Calc Pharmacy 17.6 ml/min; Est GFR (African American) 11.8; Est GFR (Non-African American) 10.2; Potassium 4.5 mmol/L (3.5-5.1)
--- NOTE | 2020-06-12 10:29 | Nephrology Progress Note ---
Date of Service June 12, 2020 Assessment & Plan (1) CKD (chronic kidney disease), stage V: * HD TTS. Next Tx tomorrow. * EDW recently reduced to 121 kg. * 2K bath. Clearances have been at goal and AVF functioning well. Dialyzes via a right brachiocephalic AV fistula. Blood flows have been appropriate, typically 450. 180 Optiflux dialyzer. * CKD attributed to diabetes and hypertension. Dialysis dependent. Unfortunately does not make a significant amount of urine despite being maintained on diuretics. * Remains on Renvela as a phosphate binder. * Medications appropriately dosed for kidney function. * Renal diet with 1 L/d fluid restriction. * Repeat metabolic profile with AM labs tomorrow. (2) HTN (hypertension): * BP acceptable. * No antihypertensives held or adjusted for HD. (3) Anemia: * Epogen 82236 units with HD 06/11/20. * Venofer 100 mg with HD. * Repeat H/H in the AM. (4) Pneumonia due to 2019 novel coronavirus: * Remdesivir deferred due to renal dysfunction. * Supportive care and dexamethasone. * Clinically improving. Admission and Anticipated Discharge Date Admission Date: June 10, 2020 Subjective No acute events overnight. Tolerated HD without complications. Noted improvement in dyspnea. No fevers or chills. Some tightness in upper chest noted this AM. Overall, feels well. Review of Systems Review of Systems: All systems reviewed & are unremarkable except as noted in HPI & below Physical Exam Physical Exam: Deferred due to COVID 19 pandemic Results & Data ([facility]) Vital Signs (Past 12 Hours) Vital Signs Temp Pulse Pulse Pulse Resp BP Pulse Ox 06/12/20 10:17 92 06/12/20 10:11 06/12/20 08:00 60 06/12/20 07:45 18 96 06/12/20 07:33 36.4 C L 54 L 20 117/58 L 98 06/12/20 06:29 46 L 06/12/20 04:22 36.5 C 52 L 20 111/58 L 96 06/12/20 03:53 53 L 20 98 06/12/20 03:34 61 06/12/20 01:00 36.5 C 56 L 18 141/63 H 99 06/11/20 23:09 58 L 18 92 Pulse Ox Pulse Ox 06/12/20 10:17 06/12/20 10:11 95 94 06/12/20 08:00 06/12/20 07:45 06/12/20 07:33 06/12/20 06:29 06/12/20 04:22 06/12/20 03:53 06/12/20 03:34 06/12/20 01:00 06/11/20 23:09 Laboratory Results Laboratory Results - last 24 hr 06/11/20 06/11/20 06/11/20 11:24 16:50 20:28 WBC RBC Hgb Hct MCV MCH MCHC RDW Std Deviation RDW Coeff of Atif Plt Count MPV Immature Gran % (Auto) Neut % (Auto) Lymph % (Auto) [place] % (Auto) Eos % (Auto) Baso % (Auto) Neut # (Auto) Lymph # (Auto) [place] # (Auto) Eos # (Auto) Baso # (Auto) Immature Gran # (Auto) Sodium Potassium Chloride Carbon Dioxide Anion Gap BUN Creatinine Est Cr Clr Drug Dosing Est GFR ( Amer) Est GFR (Non-Af Amer) BUN/Creatinine Ratio Glucose POC Glucose 81 189 H 166 H Calcium 06/12/20 06/12/20 06/12/20 07:24 07:24 07:27 WBC 6.91 RBC 2.93 L Hgb 8.8 L Hct 27.6 L MCV 94.2 MCH 30.0 MCHC 31.9 L RDW Std Deviation 55.0 H RDW Coeff of Atif 15.9 H Plt Count 311 MPV 9.9 Immature Gran % (Auto) 0.3 Neut % (Auto) 77.2 Lymph % (Auto) 11.9 [place] % (Auto) 10.6 Eos % (Auto) 0.0 Baso % (Auto) 0.0 Neut # (Auto) 5.34 Lymph # (Auto) 0.82 L [place] # (Auto) 0.73 H Eos # (Auto) 0.00 Baso # (Auto) 0.00 Immature Gran # (Auto) 0.02 Sodium 135 L Potassium 4.5 Chloride 97 L Carbon Dioxide 27 Anion Gap 11.0 BUN 50 H Creatinine 5.34 H* D Est Cr Clr Drug Dosing 17.6 Est GFR ( Amer) 11.8 Est GFR (Non-Af Amer) 10.2 BUN/Creatinine Ratio 9.4 L Glucose 146 H POC Glucose 157 H Calcium 8.8 PG Care Time/CCT Total # of Minutes Spent Total Time Spent with Patient: Total time spent is greater than 50% in coordination of care (as documented) at patient's floor/unit and/or counseling patient: Coding Diagnoses CKD (chronic kidney disease), stage V N18.5 HTN (hypertension) I10 Hypertension type: essential hypertension Anemia D64.9 Pneumonia due to 2019 novel coronavirus U07.1; J12.82 (1) HTN (hypertension) Hypertension type: essential hypertension Qualified Code(s): I10 - Essential (primary) hypertension
--- NOTE | 2020-06-12 21:18 | Hospitalist Progress Note ---
Date of Service June 12, 2020 Assessment & Plan (1) Hypoxia: COVID 19 Pneumonia In the 80s on arrival to ED COVID + on 06/03 on d/c from [facility], repeat + in the ED on admission Patient is off high flow on 06/12 Will continue on dexa, Will not use remdesivir given renal function CXR noted for b/l PNA WBC WNL, afebrile, will hold on abx for now. (2) Non-ST elevation (NSTEMI) myocardial infarction: CABG at [facility] earlier this month d/c on 06/03 to home d/c on aspirin, plavix, Coumadin-- increased yesterday to 3mg alternating with 2mg (due for 2mg on 06/10) from 2mg QD INR 1.5 Holding aspirin, plavix, coumadin due to drop in Hb Can resume if hemoccult neg Trop 0.039, trending down Records requested from [facility] [place] (3) Paroxysmal atrial fibrillation: continue home meds Holding coumadin as above (4) CKD (chronic kidney disease), stage V: // HD Missed HD on 06/09 due to fall Renal c/s pending (5) BPH (benign prostatic hyperplasia): continue home meds (6) Depression: continue home meds (7) Diabetes mellitus type 2 in obese: Lantus + SSI PRN (8) Hypercholesterolemia: continue home meds (9) Sleep apnea: noncompliant with CPAP (10) HTN (hypertension): continue home meds (11) Anemia: Hb 8.5 on admission Had been 12.5 on 05/20/20 Hx of iron deficiency, iron panel pending MCV 95, B12/folate pending will continue to monitor hemoglobin Stable on 06/12 (12) DVT prophylaxis: Resume coumadin if able SCDs (13) Fall: Possibly related to COVID status vs anemia in the setting of recent CABG PT/OT pending CT head: neg for acute Admission and Anticipated Discharge Date Admission Date: June 10, 2020 Subjective Patient reports breathing much better. Patient reports no new symptoms. Review of Systems Review of Systems: All systems reviewed & are unremarkable except as noted in HPI & below Physical Exam Physical Exam: Constitutional: WD/WN, vitals as above Eyes: normal visual morales by confrontation and + anicteric sclerae Neck: normal visual inspection and trachea midline Respiratory: normal respiratory effort; no respiratory distress Auscultation: + crackles; no wheezes Cardiovascular: Rate/Rhythm: regular rate and regular rhythm Gastrointestinal (Abdomen): Inspection/Auscultation: abdomen not distended Percussion/Palpation: abdomen soft; abdomen nontender Musculoskeletal: Head/Neck/Chest: normocephalic and head atraumatic decreased LE edema, peripheral pulses intact Skin: no rashes, warm and dry Neurologic: awake; not confused Speech / Cognition: normal speech Psychiatric: A+Ox3, euthymic affect Results & Data Results & Data ([facility]) Vital Signs (Past 12 Hours) Vital Signs Temp Pulse Pulse Pulse Resp BP Pulse Ox 06/12/20 19:40 64 16 93 06/12/20 19:25 36.6 C 64 18 140/63 94 06/12/20 15:19 36.8 C 58 L 17 129/58 L 92 06/12/20 14:59 62 06/12/20 11:04 36.6 C 56 L 20 115/59 L 93 06/12/20 10:17 92 06/12/20 10:11 Pulse Ox Pulse Ox 06/12/20 19:40 06/12/20 19:25 06/12/20 15:19 06/12/20 14:59 06/12/20 11:04 06/12/20 10:17 06/12/20 10:11 95 94 PG Care Time/CCT Total # of Minutes Spent Total Time Spent with Patient: Total time spent is greater than 50% in coordination of care (as documented) at patient's floor/unit and/or counseling patient: Coding Level of Care Code 47083 Subseq Hosp Care Lvl 2 Diagnoses Hypoxia R09.02 Non-ST elevation (NSTEMI) myocardial infarction I21.4 Paroxysmal atrial fibrillation I48.0 CKD (chronic kidney disease), stage V N18.5 BPH (benign prostatic hyperplasia) N40.0 Lower urinary tract symptom presence: symptoms absent Depression F33.9 Active/Remission status: remission status unspecified Depression Type: major depressive disorder Major depression recurrence: recurrent Diabetes mellitus type 2 in obese E11.69; E66.9 Hypercholesterolemia E78.00 Sleep apnea G47.30 Sleep apnea type: unspecified type HTN (hypertension) I10 Hypertension type: essential hypertension Anemia D64.9 DVT prophylaxis Z29.9 Fall W19.XXXA Time Spent (min) 25 (1) BPH (benign prostatic hyperplasia) Lower urinary tract symptom presence: symptoms absent Qualified Code(s): N40.0 - Benign prostatic hyperplasia without lower urinary tract symptoms (2) Sleep apnea Sleep apnea type: unspecified type Qualified Code(s): G47.30 - Sleep apnea, unspecified (3) Depression Active/Remission status: remission status unspecified Depression Type: major depressive disorder Major depression recurrence: recurrent Qualified Code(s): F33.9 - Major depressive disorder, recurrent, unspecified (4) HTN (hypertension) Hypertension type: essential hypertension Qualified Code(s): I10 - Essential (primary) hypertension
[2020-06-12] MEDS: ATORVASTATIN 40 MG TAB PO SCH (21:36)
[2020-06-12] MEDS: NEPHROCAPS PO SCH (21:37)
[2020-06-12] MEDS ORDERED: WARFARIN SOD 3 MG TAB PO ONE (22:10)
[2020-06-13 06:24] LABS: Hemoglobin 9.1 g/dL (14.0-18.0); Mean Corpuscular Hemoglobin 29.4 pg (25-34); Mean Corpuscular Hgb Conc 31.4 g/dL (32-36); Mean Corpuscular Volume 93.9 fL (80-100); Mean Platelet Volume 10.1 fL (7.4-10.4); Nucleated RBC # (auto) 0.02 K/uL (0-0); Nucleated RBC % (auto) 0.2 %; Platelet Count 372 K/uL (130-400); RDW Coefficient of Variation 15.9 % (11.5-14.5); RDW Standard Deviation 54.8 fL (36.4-46.3); Red Blood Count 3.09 M/uL (4.7-6.1); White Blood Count 9.32 K/uL (4.8-10.8)
[2020-06-13 06:31] LABS: INR 1.4 (0.9-1.1); Prothrombin Time 14.2 Seconds (9.0-12.0)
[2020-06-13] MEDS ORDERED: SODIUM CHLORIDE 0.9% 1000ML 1,000 ML IV PRN (07:00)
[2020-06-13] MEDS ORDERED: HEPARIN SOD (PORCINE) 1000 UNIT/ML 10 ML VIAL IV ONE (07:00)
[2020-06-13 07:09] LABS: Calcium 8.5 mg/dl (8.5-10.1); Creatinine Clr Calc Pharmacy 15.4 ml/min; Est GFR (African American) 9.9; Est GFR (Non-African American) 8.6; Potassium 4.2 mmol/L (3.5-5.1)
[2020-06-13] MEDS: DEXAMETHASONE SOD PHOSPHATE 6 MG in SYRINGE 0 ML IV SCH (08:53)
[2020-06-13] MEDS: FAMOTIDINE 20 MG TAB PO SCH (08:53)
[2020-06-13] MEDS: TAMSULOSIN HCL 0.4 MG CAP PO SCH (08:53)
[2020-06-13] MEDS: cloNIDine HCL 0.1 MG TAB PO SCH ×2 (08:54→20:33)
[2020-06-13] MEDS: DOCUSATE SODIUM 100 MG CAP PO SCH ×2 (08:54→20:33)
[2020-06-13] MEDS: carvediloL 3.125 MG TAB PO SCH ×2 (08:54→20:33)
[2020-06-13] MEDS: SEVELAMER HCL 800 MG TABLET PO SCH ×3 (08:54→18:19)
[2020-06-13] MEDS: amLODIPine BESYLATE 5 MG TAB PO SCH (08:54)
[2020-06-13] MEDS: INSULIN GLARGINE SOLOSTAR 100 UNITS/ML 3 ML PEN SQ SCH ×2 (08:55→22:00)
[2020-06-13] MEDS: INSULIN ASPART 100 UNITS/ML 3 ML PEN SC SCH ×4 (08:56→20:44)
[2020-06-13] MEDS: FUROSEMIDE 80 MG TAB PO SCH ×2 (09:07→18:19)
--- NOTE | 2020-06-13 10:10 | Nephrology Progress Note ---
Date of Service June 13, 2020 Assessment & Plan (1) CKD (chronic kidney disease), stage V: * ESRD due to diabetic nephropathy * Will provide HD today and attempt 2 L UF. Patient reports AVF + thrill * Outpatient HD: TTS at [facility] (4hr, 2K, F-180NR, EDW 121kg, R BC AVF) * Remains on Renvela as a phosphate binder. * Renal diet with 1 L/d fluid restriction. * Repeat metabolic profile with AM labs tomorrow (2) HTN (hypertension): * BP acceptable. * No antihypertensives held or adjusted for HD. (3) Anemia: * Epogen 28718 units with HD 06/11/20. * Venofer 100 mg with HD. * Repeat H/H in the AM. (4) Pneumonia due to 2019 novel coronavirus: * Remdesivir deferred due to renal dysfunction. * Supportive care and dexamethasone. * Clinically improving. Admission and Anticipated Discharge Date Admission Date: June 10, 2020 Subjective Mr. Solorio is currently isolated due to active COVID-19 infection. Medical records in EMR were reviewed this am. Mr. Solorio was interviewed by telephone. He reports that he is breathing comfortably on O2 at 3L/min NC. He is subjectively stronger. He voiced no new medical concerns Review of Systems Constitutional: + weakness Eyes: no problem reported Ear, Nose, Mouth, Throat: no problem reported Respiratory: no dyspnea Cardiovascular: no chest pain Gastrointestinal: no abdominal pain and no nausea Neurologic: no confusion Physical Exam Constitutional: Exam withheld due to isolation for COVID infection Results & Data ([facility]) Vital Signs (Past 12 Hours) Vital Signs Temp Pulse Pulse Pulse Resp BP Pulse Ox 06/13/20 09:00 64 142/61 H 06/13/20 08:10 36.3 C L 57 L 18 108/69 99 06/13/20 03:27 36.8 C 57 L 17 113/56 L 96 06/13/20 01:34 56 L 06/12/20 23:28 36.6 C 60 18 148/77 H 96 Laboratory Tests 06/13/20 06/13/20 05:39 05:39 WBC 9.32 Hgb 9.1 L Hct 29.0 L Plt Count 372 Sodium 133 L Potassium 4.2 Chloride 97 L Carbon Dioxide 25 BUN 74 H Creatinine 6.15 H* D Glucose 141 H Calcium 8.5 PG Care Time/CCT Total # of Minutes Spent Total Time Spent with Patient: Total time spent is greater than 50% in coordination of care (as documented) at patient's floor/unit and/or counseling patient: Coding Level of Care Code 62908 Subseq Hosp Care Lvl 3 Diagnoses CKD (chronic kidney disease), stage V N18.5 HTN (hypertension) I10 Hypertension type: essential hypertension Anemia D64.9 Pneumonia due to 2019 novel coronavirus U07.1; J12.82 (1) HTN (hypertension) Hypertension type: essential hypertension Qualified Code(s): I10 - Essential (primary) hypertension
[2020-06-13] MEDS: WARFARIN SOD 3 MG TAB PO SCH (18:18)
--- NOTE | 2020-06-13 20:05 | Hospitalist Progress Note ---
Date of Service June 13, 2020 Assessment & Plan (1) Hypoxia: COVID 19 Pneumonia In the 80s on arrival to ED COVID + on 06/03 on d/c from [facility], repeat + in the ED on admission Patient is off high flow on 06/12 Now on 4-5 liters nasal cannula. Will continue on dexa, the day prior he ws on 3 liters nasal cannula. Will not use remdesivir given renal function CXR noted for b/l PNA WBC WNL, afebrile, will hold on abx for now. Will continue to monitor. (2) Non-ST elevation (NSTEMI) myocardial infarction: CABG at [facility] earlier this month d/c on 06/03 to home d/c on aspirin, plavix, Coumadin-- increased yesterday to 3mg alternating with 2mg (due for 2mg on 06/10) from 2mg QD INR 1.5 Holding aspirin, plavix, coumadin due to drop in Hb Can resume if hemoccult neg Trop 0.039, trending down Records requested from [facility] [place] (3) Paroxysmal atrial fibrillation: continue home meds Holding coumadin as above (4) CKD (chronic kidney disease), stage V: T// HD Missed HD on 06/09 due to fall Renal c/s pending (5) BPH (benign prostatic hyperplasia): continue home meds (6) Depression: continue home meds (7) Diabetes mellitus type 2 in obese: Lantus + SSI PRN (8) Hypercholesterolemia: continue home meds (9) Sleep apnea: noncompliant with CPAP (10) HTN (hypertension): continue home meds (11) Anemia: Hb 8.5 on admission Had been 12.5 on 05/20/20 Hx of iron deficiency, iron panel pending MCV 95, B12/folate pending will continue to monitor hemoglobin Stable on 06/13 (12) DVT prophylaxis: Resume coumadin if able SCDs (13) Fall: Possibly related to COVID status vs anemia in the setting of recent CABG PT/OT pending CT head: neg for acute Admission and Anticipated Discharge Date Admission Date: June 10, 2020 Subjective 70 yo male reports feeling well. He is resting comfortably. He denies any SOB, nause, vomiting. Review of Systems Review of Systems: All systems reviewed & are unremarkable except as noted in HPI & below Physical Exam Physical Exam: Constitutional: WD/WN, vitals as above Eyes: normal visual morales by confrontation and + anicteric sclerae Neck: normal visual inspection and trachea midline Respiratory: normal respiratory effort; no respiratory distress Auscultation: + crackles at bases; no wheezes Cardiovascular: Rate/Rhythm: regular rate and regular rhythm Gastrointestinal (Abdomen): Inspection/Auscultation: abdomen not distended Percussion/Palpation: abdomen soft; abdomen nontender Musculoskeletal: Head/Neck/Chest: normocephalic and head atraumatic decreased LE edema, peripheral pulses intact Skin: no rashes, warm and dry Neurologic: awake; not confused Speech / Cognition: normal speech Psychiatric: A+Ox3, euthymic affect Results & Data Results & Data ([facility]) Vital Signs (Past 12 Hours) Vital Signs Temp Pulse Pulse Pulse Resp BP BP 06/13/20 17:39 72 130/78 06/13/20 17:20 70 148/71 H 06/13/20 17:05 62 157/74 H 06/13/20 17:00 66 06/13/20 16:40 70 156/80 H 06/13/20 16:20 65 161/78 H 06/13/20 16:08 36.8 C 62 24 155/73 H 06/13/20 16:00 62 155/73 H 06/13/20 15:40 65 151/79 H 06/13/20 15:20 60 130/71 06/13/20 15:00 60 137/72 06/13/20 14:40 62 148/75 H 06/13/20 14:20 60 155/72 H 06/13/20 14:00 60 135/67 06/13/20 13:46 58 L 124/67 06/13/20 13:35 37.0 C 60 06/13/20 11:55 36.6 C 53 L 19 106/64 06/13/20 09:00 64 64 142/61 H 06/13/20 08:10 36.3 C L 57 L 18 108/69 Pulse Ox 06/13/20 17:39 06/13/20 17:20 06/13/20 17:05 06/13/20 17:00 06/13/20 16:40 06/13/20 16:20 06/13/20 16:08 96 06/13/20 16:00 06/13/20 15:40 06/13/20 15:20 06/13/20 15:00 06/13/20 14:40 06/13/20 14:20 06/13/20 14:00 06/13/20 13:46 06/13/20 13:35 06/13/20 11:55 93 06/13/20 09:00 06/13/20 08:10 99 PG Care Time/CCT Total # of Minutes Spent Total Time Spent with Patient: Total time spent is greater than 50% in coordination of care (as documented) at patient's floor/unit and/or counseling patient: Coding Level of Care Code 56718 Subseq Hosp Care Lvl 2 Diagnoses Hypoxia R09.02 Non-ST elevation (NSTEMI) myocardial infarction I21.4 Paroxysmal atrial fibrillation I48.0 CKD (chronic kidney disease), stage V N18.5 BPH (benign prostatic hyperplasia) N40.0 Lower urinary tract symptom presence: symptoms absent Depression F33.9 Active/Remission status: remission status unspecified Depression Type: major depressive disorder Major depression recurrence: recurrent Diabetes mellitus type 2 in obese E11.69; E66.9 Hypercholesterolemia E78.00 Sleep apnea G47.30 Sleep apnea type: unspecified type HTN (hypertension) I10 Hypertension type: essential hypertension Anemia D64.9 DVT prophylaxis Z29.9 Fall W19.XXXA Time Spent (min) 25 (1) BPH (benign prostatic hyperplasia) Lower urinary tract symptom presence: symptoms absent Qualified Code(s): N40.0 - Benign prostatic hyperplasia without lower urinary tract symptoms (2) Sleep apnea Sleep apnea type: unspecified type Qualified Code(s): G47.30 - Sleep apnea, unspecified (3) Depression Active/Remission status: remission status unspecified Depression Type: major depressive disorder Major depression recurrence: recurrent Qualified Code(s): F33.9 - Major depressive disorder, recurrent, unspecified (4) HTN (hypertension) Hypertension type: essential hypertension Qualified Code(s): I10 - Essential (primary) hypertension
[2020-06-13] MEDS: ATORVASTATIN 40 MG TAB PO SCH (20:33)
[2020-06-13] MEDS: NEPHROCAPS PO SCH (20:33)
[2020-06-13] MEDS: HEPARIN SOD 5,000 UNIT/0.5 ML VIAL SQ SCH (22:01)
[2020-06-14] MEDS: HEPARIN SOD 5,000 UNIT/0.5 ML VIAL SQ SCH ×3 (05:55→20:30)
[2020-06-14 06:56] LABS: Hematocrit (blood only) 29.9 % (42-52); Hemoglobin 9.3 g/dL (14.0-18.0); Mean Corpuscular Hemoglobin 29.5 pg (25-34); Mean Corpuscular Hgb Conc 31.1 g/dL (32-36); Mean Corpuscular Volume 94.9 fL (80-100); Mean Platelet Volume 10.5 fL (7.4-10.4); Nucleated RBC # (auto) 0.02 K/uL (0-0); Nucleated RBC % (auto) 0.2 %; Platelet Count 420 K/uL (130-400); RDW Standard Deviation 54.8 fL (36.4-46.3); Red Blood Count 3.15 M/uL (4.7-6.1); White Blood Count 10.12 K/uL (4.8-10.8)
[2020-06-14 07:02] LABS: INR 1.3 (0.9-1.1)
[2020-06-14 07:30] LABS: BUN Creatinine Ratio 11.3 (10-20); Calcium 8.7 mg/dl (8.5-10.1); Creatinine Clr Calc Pharmacy 24.2 ml/min; Est GFR (African American) 17.3; Est GFR (Non-African American) 14.9
[2020-06-14] MEDS: SEVELAMER HCL 800 MG TABLET PO SCH ×3 (08:19→16:25)
[2020-06-14] MEDS: TAMSULOSIN HCL 0.4 MG CAP PO SCH (08:39)
[2020-06-14] MEDS: cloNIDine HCL 0.1 MG TAB PO SCH ×2 (08:39→20:29)
[2020-06-14] MEDS: DOCUSATE SODIUM 100 MG CAP PO SCH ×2 (08:39→20:30)
[2020-06-14] MEDS: DEXAMETHASONE SOD PHOSPHATE 6 MG in SYRINGE 0 ML IV SCH (08:40)
[2020-06-14] MEDS: carvediloL 3.125 MG TAB PO SCH ×2 (08:40→20:29)
[2020-06-14] MEDS: FAMOTIDINE 20 MG TAB PO SCH (08:40)
[2020-06-14] MEDS: amLODIPine BESYLATE 5 MG TAB PO SCH (08:41)
[2020-06-14] MEDS: FUROSEMIDE 80 MG TAB PO SCH ×2 (08:41→16:26)
[2020-06-14] MEDS: INSULIN ASPART 100 UNITS/ML 3 ML PEN SC SCH ×4 (08:47→20:30)
[2020-06-14] MEDS: INSULIN GLARGINE SOLOSTAR 100 UNITS/ML 3 ML PEN SQ SCH (09:41)
--- NOTE | 2020-06-14 09:42 | Nephrology Progress Note ---
Date of Service June 14, 2020 Assessment & Plan (1) CKD (chronic kidney disease), stage V: * ESRD due to diabetic nephropathy * HD completed yesterday. No complications. 2.2L UF obtained. Patient reports AVF + thrill * Electrolyte balance is acceptable. No acute indication for HD this am * Outpatient HD: TTS at [facility] (4hr, 2K, F-180NR, EDW 121kg, R BC AVF) * Remains on Renvela as a phosphate binder. * Renal diet with 1 L/d fluid restriction. * Repeat metabolic profile with AM labs tomorrow (2) HTN (hypertension): * BP acceptable. * No change to current antihypertensive regimen (3) Anemia: * Epogen 77136 units with HD 06/11/20. * Venofer 100 mg with HD. * Repeat H/H in the AM. (4) Pneumonia due to 2019 novel coronavirus: * Remdesivir deferred due to renal dysfunction. * On Dexamethasone therapy Admission and Anticipated Discharge Date Admission Date: June 10, 2020 Subjective Mr. Solorio is in respiratory isolation due to COVID-19 infection. Medical records in EMR were reviewed this am and Mr. Solorio was interviewed by telephone. He reports that dialysis was completed yesterday without complication. 2.2L UF was obtained. O2 has been weaned to 4 L/min NC. He still experiences [place] Review of Systems Constitutional: + weakness Eyes: no problem reported Ear, Nose, Mouth, Throat: no problem reported Respiratory: + dyspnea and + dyspnea on exertion Cardiovascular: no chest pain Gastrointestinal: no abdominal pain and no nausea Neurologic: no confusion Physical Exam Constitutional: Exam withheld due to isolation for COVID infection Results & Data ([facility]) Vital Signs (Past 12 Hours) Vital Signs Temp Pulse Pulse Pulse Resp BP Pulse Ox 06/14/20 08:00 72 06/14/20 07:34 36.9 C 73 18 144/82 H 93 06/14/20 03:40 36.7 C 64 22 133/64 98 06/13/20 23:25 36.7 C 61 19 134/68 96 Laboratory Tests 06/10/20 06/14/20 06/14/20 19:36 05:44 05:44 WBC 10.12 Hgb 9.3 L Hct 29.9 L Plt Count 420 H Sodium 139 Potassium 4.0 Chloride 104 Carbon Dioxide 29 BUN 44 H Creatinine 3.88 H D Glucose 24 L* Calcium 8.7 Iron 10 L TIBC 215 L Ferritin 1479.4 H PG Care Time/CCT Total # of Minutes Spent Total Time Spent with Patient: Total time spent is greater than 50% in coordination of care (as documented) at patient's floor/unit and/or counseling patient: Coding Level of Care Code 69956 Subseq Hosp Care Lvl 3 Diagnoses CKD (chronic kidney disease), stage V N18.5 HTN (hypertension) I10 Hypertension type: essential hypertension Anemia D64.9 Pneumonia due to 2019 novel coronavirus U07.1; J12.82 (1) HTN (hypertension) Hypertension type: essential hypertension Qualified Code(s): I10 - Essential (primary) hypertension
[2020-06-14] MEDS: WARFARIN SOD 3 MG TAB PO SCH (16:26)
[2020-06-14] MEDS: NEPHROCAPS PO SCH (20:27)
[2020-06-14] MEDS: ATORVASTATIN 40 MG TAB PO SCH (20:28)
--- NOTE | 2020-06-14 20:31 | Hospitalist Progress Note ---
Date of Service June 14, 2020 Assessment & Plan (1) Hypoxia: COVID 19 Pneumonia In the 80s on arrival to ED COVID + on 06/03 on d/c from [facility], repeat + in the ED on admission Patient is off high flow on 06/12 Now on 3-4 liters nasal cannula which is an improvement from the day prior. Will continue on dexa. Will not use remdesivir given renal function CXR noted for b/l PNA WBC WNL, afebrile, will hold on abx for now. Will continue to monitor. (2) Non-ST elevation (NSTEMI) myocardial infarction: CABG at [facility] earlier this month d/c on 06/03 to home d/c on aspirin, plavix, Coumadin-- increased yesterday to 3mg alternating with 2mg (due for 2mg on 06/10) from 2mg QD INR subtherapeutic Holding aspirin, plavix, coumadin due to drop in Hb. resumed coumadin, will resume asa and plavix. as hemoglobin has been stable. Trop 0.039, trending down [place] [facility] [place]3) Paroxysmal atrial fibrillation: continue home meds (4) CKD (chronic kidney disease), stage V: T// HD Missed HD on 06/09 due to fall Renal c/s pending (5) BPH (benign prostatic hyperplasia): continue home meds (6) Depression: continue home meds (7) Diabetes mellitus type 2 in obese: Lantus + SSI PRN (8) Hypercholesterolemia: continue home meds (9) Sleep apnea: noncompliant with CPAP (10) HTN (hypertension): continue home meds (11) Anemia: Hb 8.5 on admission Had been 12.5 on 05/20/20 Hx of iron deficiency, iron panel pending MCV 95, B12/folate pending will continue to monitor hemoglobin Stable on 06/14 (12) DVT prophylaxis: Resume coumadin if able SCDs (13) Fall: Possibly related to COVID status vs anemia in the setting of recent CABG PT/OT pending CT head: neg for acute Admission and Anticipated Discharge Date Admission Date: June 10, 2020 Subjective Patient reports feeling well. He has no new complaints. Review of Systems Review of Systems: All systems reviewed & are unremarkable except as noted in HPI & below Physical Exam Physical Exam: Constitutional: WD/WN, vitals as above Eyes: normal visual morales by confrontation and + anicteric sclerae Neck: normal visual inspection and trachea midline Respiratory: normal respiratory effort; no respiratory distress Auscultation: + mild crackles at bases; no wheezes Cardiovascular: Rate/Rhythm: regular rate and regular rhythm Gastrointestinal (Abdomen): Inspection/Auscultation: abdomen not distended Percussion/Palpation: abdomen soft; abdomen nontender Musculoskeletal: Head/Neck/Chest: normocephalic and head atraumatic decreased LE edema, peripheral pulses intact Skin: no rashes, warm and dry Neurologic: awake; not confused Speech / Cognition: normal speech Psychiatric: A+Ox3, euthymic affect Results & Data Results & Data ([facility]) Vital Signs (Past 12 Hours) Vital Signs Temp Pulse Pulse Pulse Resp BP Pulse Ox 06/14/20 19:56 36.8 C 73 20 189/82 H 93 06/14/20 16:18 36.8 C 63 18 138/60 95 06/14/20 16:00 72 06/14/20 11:23 37.1 C 60 18 129/66 95 06/14/20 11:15 96 06/14/20 09:00 96 PG Care Time/CCT Total # of Minutes Spent Total Time Spent with Patient: Total time spent is greater than 50% in coordination of care (as documented) at patient's floor/unit and/or counseling patient: Coding Level of Care Code 11584 Subseq Hosp Care Lvl 3 Diagnoses Hypoxia R09.02 Non-ST elevation (NSTEMI) myocardial infarction I21.4 Paroxysmal atrial fibrillation I48.0 CKD (chronic kidney disease), stage V N18.5 BPH (benign prostatic hyperplasia) N40.0 Lower urinary tract symptom presence: symptoms absent Depression F33.9 Active/Remission status: remission status unspecified Depression Type: major depressive disorder Major depression recurrence: recurrent Diabetes mellitus type 2 in obese E11.69; E66.9 Hypercholesterolemia E78.00 Sleep apnea G47.30 Sleep apnea type: unspecified type HTN (hypertension) I10 Hypertension type: essential hypertension Anemia D64.9 DVT prophylaxis Z29.9 Fall W19.XXXA Time Spent (min) 35 (1) BPH (benign prostatic hyperplasia) Lower urinary tract symptom presence: symptoms absent Qualified Code(s): N40.0 - Benign prostatic hyperplasia without lower urinary tract symptoms (2) Sleep apnea Sleep apnea type: unspecified type Qualified Code(s): G47.30 - Sleep apnea, unspecified (3) Depression Active/Remission status: remission status unspecified Depression Type: major depressive disorder Major depression recurrence: recurrent Qualified Code(s): F33.9 - Major depressive disorder, recurrent, unspecified (4) HTN (hypertension) Hypertension type: essential hypertension Qualified Code(s): I10 - Essential (primary) hypertension
[2020-06-14] MEDS ORDERED: INSULIN GLARGINE SOLOSTAR 100 UNITS/ML 3 ML PEN SQ SCH (21:00)
[2020-06-15] MEDS: HEPARIN SOD 5,000 UNIT/0.5 ML VIAL SQ SCH ×3 (05:57→20:58)
[2020-06-15 06:13] LABS: Hematocrit (blood only) 29.2 % (42-52); Hemoglobin 9.1 g/dL (14.0-18.0); Mean Corpuscular Hemoglobin 29.7 pg (25-34); Mean Corpuscular Hgb Conc 31.2 g/dL (32-36); Mean Corpuscular Volume 95.4 fL (80-100); Platelet Count 383 K/uL (130-400); RDW Coefficient of Variation 16.5 % (11.5-14.5); RDW Standard Deviation 55.9 fL (36.4-46.3); Red Blood Count 3.06 M/uL (4.7-6.1); White Blood Count 7.81 K/uL (4.8-10.8)
[2020-06-15 06:22] LABS: INR 1.4 (0.9-1.1); Prothrombin Time 14.6 Seconds (9.0-12.0)
[2020-06-15 06:51] LABS: BUN Creatinine Ratio 16.6 (10-20); Creatinine Clr Calc Pharmacy 22.6 ml/min; Est GFR (African American) 15.8; Est GFR (Non-African American) 13.6; Potassium 4.5 mmol/L (3.5-5.1)
[2020-06-15] MEDS: HEPARIN SOD (PORCINE) 1000 UNIT/ML 10 ML VIAL IV SCH ×2 (07:24→07:25)
[2020-06-15] MEDS: DOCUSATE SODIUM 100 MG CAP PO SCH ×2 (07:58→20:55)
[2020-06-15] MEDS: SEVELAMER HCL 800 MG TABLET PO SCH ×3 (08:03→16:57)
[2020-06-15] MEDS: carvediloL 3.125 MG TAB PO SCH ×2 (08:19→20:57)
[2020-06-15] MEDS: INSULIN ASPART 100 UNITS/ML 3 ML PEN SC SCH ×4 (08:42→21:20)
[2020-06-15] MEDS: DEXAMETHASONE SOD PHOSPHATE 6 MG in SYRINGE 0 ML IV SCH (08:44)
[2020-06-15] MEDS: ASPIRIN 81 MG ECTAB PO SCH (08:44)
[2020-06-15] MEDS: CLOPIDOGREL BISULFATE 75 MG TAB PO SCH (08:44)
[2020-06-15] MEDS: amLODIPine BESYLATE 5 MG TAB PO SCH (08:45)
[2020-06-15] MEDS: FUROSEMIDE 80 MG TAB PO SCH ×2 (08:45→16:58)
[2020-06-15] MEDS: TAMSULOSIN HCL 0.4 MG CAP PO SCH (08:45)
[2020-06-15] MEDS: FAMOTIDINE 20 MG TAB PO SCH (08:45)
[2020-06-15] MEDS: cloNIDine HCL 0.1 MG TAB PO SCH ×2 (08:46→20:55)
[2020-06-15] MEDS ORDERED: INSULIN GLARGINE SOLOSTAR 100 UNITS/ML 3 ML PEN SQ SCH (09:00)
[2020-06-15] MEDS ORDERED: EPOETIN ALFA 10,000 UNITS/ML VIAL IV ONE (10:19)
[2020-06-15] MEDS ORDERED: HEPARIN SOD (PORCINE) 1000 UNIT/ML 10 ML VIAL IV ONE (10:19)
[2020-06-15] MEDS ORDERED: SODIUM CHLORIDE 0.9% 1000ML 1,000 ML IV PRN (10:19)
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
--- NOTE | 2020-06-15 11:04 | Nephrology Progress Note ---
Date of Service June 15, 2020 Assessment & Plan (1) CKD (chronic kidney disease), stage V: * ESRD due to diabetic nephropathy * Will provide 2 hours HD today. This will allow discharge in am with outpatient HD starting in the [facility] COVID unit. Orders have been entered into EMR and HD RN notified * Outpatient HD: TTS at [facility] (4hr, 2K, F-180NR, EDW 121kg, R BC AVF) * Remains on Renvela as a phosphate binder. * Renal diet with 1 L/d fluid restriction. (2) HTN (hypertension): * BP acceptable. * No change to current antihypertensive regimen (3) Anemia: * Will provide Epogen 10,000 units IV w/ HD today * Venofer 100 mg with HD. (4) Pneumonia due to 2019 novel coronavirus: * Remdesivir deferred due to renal dysfunction. * On Dexamethasone therapy Admission and Anticipated Discharge Date Admission Date: June 10, 2020 Subjective Mr. Solorio is in respiratory isolation due to COVID-19 infection. Medical records in EMR were reviewed this am. Mr. Solorio was interviewed by telephone and POC discussed w/ Dr. Morrison. Mr. Solorio reports that he is breathing comfortably on O2 at 2L/min NC. He hopes to be discharged home soon and attend dialysis at the designated COVID unit through 06/23/20. Review of Systems Constitutional: no fever Eyes: no problem reported Ear, Nose, Mouth, Throat: no problem reported Respiratory: + dyspnea on exertion Cardiovascular: no chest pain, no palpitations and no edema Gastrointestinal: no abdominal pain, no nausea, no vomiting and no diarrhea/loose stools Genitourinary: no dysuria, no urinary hesitancy and no hematuria Musculoskeletal: no back pain Integumentary: no rash Neurologic: no falls and no confusion Results & Data ([facility]) Vital Signs (Past 12 Hours) Vital Signs Temp Pulse Pulse Pulse Resp BP Pulse Ox 06/15/20 08:18 52 L 06/15/20 07:40 36.4 C L 06/15/20 07:36 61 20 147/62 H 98 06/15/20 03:33 36.9 C 57 L 18 144/80 H 96 06/14/20 23:17 36.7 C 64 19 145/66 H 92 06/14/20 23:00 64 Laboratory Tests 06/15/20 06/15/20 05:55 05:55 WBC 7.81 Hgb 9.1 L Hct 29.2 L Plt Count 383 Sodium 140 Potassium 4.5 Chloride 107 Carbon Dioxide 26 BUN 69 H D Creatinine 4.19 H D Glucose 62 L PG Care Time/CCT Total # of Minutes Spent Total Time Spent with Patient: Total time spent is greater than 50% in coordination of care (as documented) at patient's floor/unit and/or counseling patient: Coding Level of Care Code 02206 Subseq Hosp Care Lvl 3 Diagnoses CKD (chronic kidney disease), stage V N18.5 HTN (hypertension) I10 Hypertension type: essential hypertension Anemia D64.9 Pneumonia due to 2019 novel coronavirus U07.1; J12.82 (1) HTN (hypertension) Hypertension type: essential hypertension Qualified Code(s): I10 - Essential (primary) hypertension
[2020-06-15] MEDS: WARFARIN SOD 3 MG TAB PO SCH (16:57)
[2020-06-15] MEDS: ATORVASTATIN 40 MG TAB PO SCH (20:56)
[2020-06-15] MEDS: NEPHROCAPS PO SCH (20:57)
[2020-06-15] MEDS: INSULIN GLARGINE SOLOSTAR 100 UNITS/ML 3 ML PEN SQ SCH (21:19)
[2020-06-16] MEDS: HEPARIN SOD 5,000 UNIT/0.5 ML VIAL SQ SCH (05:54)
[2020-06-16 06:03] LABS: Hematocrit (blood only) 30.8 % (42-52); Hemoglobin 9.6 g/dL (14.0-18.0); Mean Corpuscular Hemoglobin 29.6 pg (25-34); Mean Corpuscular Hgb Conc 31.2 g/dL (32-36); Mean Corpuscular Volume 95.1 fL (80-100); Mean Platelet Volume 9.8 fL (7.4-10.4); Nucleated RBC # (auto) 0.02 K/uL (0-0); Nucleated RBC % (auto) 0.2 %; Platelet Count 374 K/uL (130-400); RDW Coefficient of Variation 16.5 % (11.5-14.5); RDW Standard Deviation 57.1 fL (36.4-46.3); Red Blood Count 3.24 M/uL (4.7-6.1); White Blood Count 10.15 K/uL (4.8-10.8)
[2020-06-16 06:13] LABS: INR 1.3 (0.9-1.1)
[2020-06-16 06:30] LABS: BUN Creatinine Ratio 16.5 (10-20); Calcium 8.2 mg/dl (8.5-10.1); Creatinine Clr Calc Pharmacy 26.2 ml/min; Est GFR (Non-African American) 16.4; Potassium 4.4 mmol/L (3.5-5.1)
[2020-06-16] MEDS: INSULIN ASPART 100 UNITS/ML 3 ML PEN SC SCH ×2 (08:24→12:17)
[2020-06-16] MEDS: amLODIPine BESYLATE 5 MG TAB PO SCH (08:25)
[2020-06-16] MEDS: SEVELAMER HCL 800 MG TABLET PO SCH ×2 (08:25→12:17)
[2020-06-16] MEDS: TAMSULOSIN HCL 0.4 MG CAP PO SCH (08:26)
[2020-06-16] MEDS: cloNIDine HCL 0.1 MG TAB PO SCH (08:26)
[2020-06-16] MEDS: FAMOTIDINE 20 MG TAB PO SCH (08:26)
[2020-06-16] MEDS: DOCUSATE SODIUM 100 MG CAP PO SCH (08:26)
[2020-06-16] MEDS: carvediloL 3.125 MG TAB PO SCH (08:26)
[2020-06-16] MEDS: CLOPIDOGREL BISULFATE 75 MG TAB PO SCH (08:27)
[2020-06-16] MEDS: INSULIN GLARGINE SOLOSTAR 100 UNITS/ML 3 ML PEN SQ SCH (08:27)
[2020-06-16] MEDS: FUROSEMIDE 80 MG TAB PO SCH (08:27)
[2020-06-16] MEDS: ASPIRIN 81 MG ECTAB PO SCH (08:27)
[2020-06-16] MEDS: DEXAMETHASONE SOD PHOSPHATE 6 MG in SYRINGE 0 ML IV SCH (08:28)
--- NOTE | 2020-06-16 09:26 | Nephrology Progress Note ---
Date of Service June 16, 2020 Assessment & Plan (1) End-stage renal disease on hemodialysis: * ESRD due to diabetic nephropathy * Volume status and electrolyte balance are acceptable. No acute indication for HD today * Plan outpatient HD starting in the [facility] COVID unit. Patient voiced understanding and indicates that transportation has already been arranged. I have called the [facility] dialysis unit and provided update * Outpatient HD: TTS (4hr, 2K, F-180NR, EDW 121kg, R BC AVF) (2) HTN (hypertension): * BP acceptable. * No change to current antihypertensive regimen (3) Anemia: * Epogen 10,000 units IV given w/ HD 06/15/20 (4) Pneumonia due to 2019 novel coronavirus: * Remdesivir deferred due to renal dysfunction. * On Dexamethasone therapy Admission and Anticipated Discharge Date Admission Date: June 10, 2020 Subjective Mr. Solorio is in respiratory isolation due to COVID-19 infection. Medical records in EMR were reviewed this am. Mr. Solorio was interviewed by telephone and POC discussed w/ the primary service. Mr. Solorio reports that he is breathing comfortably on RA. He hopes to be discharged home soon and attend dialysis at the designated COVID unit through 06/23/20. His last dialysis t reatment was 06/15/20 for 2 L UF. No complications Review of Systems Constitutional: no fever Eyes: no problem reported Ear, Nose, Mouth, Throat: no problem reported Respiratory: + dyspnea on exertion Cardiovascular: no chest pain, no palpitations and no edema Gastrointestinal: no abdominal pain Musculoskeletal: no back pain Integumentary: no rash Neurologic: no dizziness and no confusion Results & Data ([facility]) Vital Signs (Past 12 Hours) Vital Signs Temp Pulse Pulse Pulse Resp BP Pulse Ox 06/16/20 07:43 36.7 C 60 20 145/68 H 94 06/16/20 04:53 73 06/16/20 03:40 36.4 C L 64 20 155/69 H 95 06/16/20 02:18 74 06/15/20 23:24 37.2 C 65 16 170/62 H 95 06/15/20 21:55 74 Pulse Ox 06/16/20 07:43 06/16/20 04:53 95 06/16/20 03:40 06/16/20 02:18 94 06/15/20 23:24 06/15/20 21:55 94 Laboratory Tests 06/16/20 06/16/20 05:49 05:49 WBC 10.15 Hgb 9.6 L Hct 30.8 L Plt Count 374 Sodium 141 Potassium 4.4 Chloride 106 Carbon Dioxide 29 BUN 59 H Creatinine 3.59 H D Glucose 77 Calcium 8.2 L PG Care Time/CCT Total # of Minutes Spent Total Time Spent with Patient: Total time spent is greater than 50% in coordination of care (as documented) at patient's floor/unit and/or counseling patient: Coding Level of Care Code 24186 Subseq Hosp Care Lvl 3 Diagnoses End-stage renal disease on hemodialysis N18.6; Z99.2 HTN (hypertension) I10 Hypertension type: essential hypertension Anemia D64.9 Pneumonia due to 2019 novel coronavirus U07.1; J12.82 (1) HTN (hypertension) Hypertension type: essential hypertension Qualified Code(s): I10 - Essential (primary) hypertension
--- NOTE | 2020-06-16 10:07 | Discharge Summary ---
Date of Service June 16, 2020 Admission HPI Per Admitting Provider 70 y/o M c/o SOB. Pt was recently d/c'd to home from [facility] s/p CABG after being transferred there from [facility] earlier this month for an NSTEMI with severe LAD disease. On d/, he was swabbed for COVID at his neighbor's request since his neighbor was going to pick him up at d/c to take pt home. Pt had been having a runny nose and sore throat, but no clear COVID sx. He tested positive on day of d/c, which was 06/03. He had been doing pretty well at home until last night when he had sudden onset SOB. He has home O2 available, but had no needed it for some time. He tried to use it last night, but it did not help. Pt has been SOB at rest and with exertion. Pt has chest soreness since his CABG, but no yaa pain. He has been tolerating PO without issue. Pt denies fever, abd pain, n/v/c/d, LE pain. He is feeling better s/p O2 and steroids in the ED. Pt has HD on . He missed his Monday HD due to having fallen out of bed, which he attributes to being lightheaded at that time. He fell again today, which was again due to lightheadedness. He did not have LOC with either fall. He does note mild LE swelling, which is typical if he misses his HD. He does still make urine and feels that this is at its usual level. Pt is on coumadin s/p CABG. His dose had been 2mg QD, but it was changed yesterday to 3mg and he was to alternate that with 2mg. Today's dose would be 2mg. Denies bleeding. Principal Diagnosis COVID 19 pneumonia Discharge Exam Constitutional WD/WN, vitals as above + obese; no acute distress Neck trachea midline, no thyromegaly Respiratory normal respiratory effort, lungs clear to auscultation Cardiovascular RRR, no murmur, no edema Extremities: + AV fistula (+ thrill and bruit) Gastrointestinal (Abdomen) normal bowel sounds, soft, nontender, no hepatosplenomegaly Musculoskeletal no cyanosis or clubbing, extremities motor strength 5/5 Skin no rashes, warm and dry Neurologic patellar DTR's 2+ bilat, sensation intact and PERRL, EOMI, accommodation nl, no face palsy, no dysarthria Psychiatric A+Ox3, euthymic affect Lymphatic no cervical or axillary lymphadenopathy Discharge Data Allergies Allergy/AdvReac Type Severity Reaction Status Date / Time ragweed pollen Allergy Mild [place] Verified 05/21/20 02:09 [place] Complexes Allergy Unknown rash from Verified 05/21/20 02:09 metal Consultations 06/10/20 16:29 ED Decision to Admit Stat 06/10/20 19:22 Consult Case Management - Discharge Planning Routine Consult Health Information Management Stat Consult Nephrology Routine Ordered Studies 06/10/20 15:16 CT head/brain wo con Stat Hospital Course (1) Hypoxia: COVID 19 Pneumonia In the 80s on room air on arrival to ED COVID + on 06/03 on d/c from [facility], repeat + in the ED on admission initially on high flow, titrated down to low flow and now on room air for two days no hypoxia on ambulation completed 7 days of dexamethasone, no further steroids needed as he is on room air x 2 days, no respiratory distress did not use remdesivir given renal function CXR noted for b/l PNA on admission discharge to home (2) Non-ST elevation (NSTEMI) myocardial infarction: CABG at [facility] earlier this month d/c on 06/03 to home d/c on aspirin, plavix, Coumadin-- 3mg alternating with 2mg INR subtherapeutic -- change coumadin to 3mg daily continue aspirin, plavix, hemoglobin has been stable. Trop 0.039, trending down follow up with cardiology as planned (3) Paroxysmal atrial fibrillation: continue home meds HR is 60 in sinus coumadin for anticoagulation (4) CKD (chronic kidney disease), stage V: // HD got HD on 06/13 for full session received 2 hours of HD on 06/15, can then report for outpatient HD on 06/18 in [place] due to COVID status volume status is acceptable, K is normal (5) BPH (benign prostatic hyperplasia): continue home meds (6) Depression: continue home meds (7) Diabetes mellitus type 2 in obese: Lantus + SSI PRN resume home regimen on discharge, he will be off steroids now which should help with control (8) Hypercholesterolemia: continue home meds (9) Sleep apnea: noncompliant with CPAP (10) HTN (hypertension): continue home meds (11) Anemia: Hb 8.5 on admission Had been 12.5 on 05/20/20 Hx of iron deficiency, iron panel pending MCV 95, B12/folate normal Hb stable at 9.6, no signs of bleeding aspirin, Plavix and Coumadin resumed (12) DVT prophylaxis: Resume coumadin if able SCDs (13) Fall: Possibly related to COVID status vs anemia in the setting of recent CABG PT/OT - clear for d/c CT head: neg for acute Total Time Total Time Spent Total Time Spent (In Minutes): 32 minutes Total Time Includes: Examination of the Patient, Discharge Planning, Medication Reconciliation and Communication With Other Providers Discharge Plan Discharge Items Patient Disposition: Home - Self-Care Reason For Visit: HYPOXIA Discharge Diagnosis: COVID 19 pneumonia ESRD on HD CAD with recent CABG Condition on Discharge: Good Goals: follow up for HD at [facility] on Activity: Resume your previous activity Non-emergency contact: Primary Care Provider Call non-emergency contact if: you have any medication questions, your symptoms worsen and you have a fever Follow-up/Referrals: Shiv Gallardo MD [Primary Care Provider] - Diet: Carb Consistent or DM2, Dialysis Renal and Heart Healthy Addtl Attending Provider Instructions: Medications: note the following change COUMADIN: increase to 3mg daily, you had previously alternated 2mg and 3mg check INR at dialysis, defer to cardiology for management further COVID 19 pneumonia treated with dexamethasone for 7 days, you have been off oxygen now for 2 days, no issues no further dexamethasone needed stay well nourished, well rested next several days ESRD on dialysis: report for HD in [facility] on 06/18, you had a 2 hour session of HD yesterday volume status is acceptable and electrolytes normal today Pending Studies at Discharge: No Stand-Alone Forms: My [employer], Smoking Cessation Medications and DC Order Prescriptions: New warfarin 3 mg Tablet 3 mg PO DAILY@1600 30 Days Qty: 3 RF: 0 Continued furosemide [Lasix] 40 mg Tablet 80 mg PO BID RF: 0 insulin aspart U-100 [Novolog PenFill U-100 Insulin] 100 unit/mL Cartridge 10 unit SUBCUT AC RF: 0 tamsulosin 0.4 mg Capsule 0.4 mg PO QAM RF: 0 albuterol sulfate 90 mcg/actuation Hfa Aerosol Inhaler 2 puff INHALATION Q6H PRN (Reason: Shortness Of Breath) RF: 0 sertraline 50 mg Tablet 50 mg PO QAM PRN (Reason: Anxiety) RF: 0 loratadine 10 mg Tablet 10 mg PO DAILY PRN (Reason: Allergy Symptoms) RF: 0 clonidine HCl 0.1 mg tablet See Rx Instructions .ROUTE .COMPLEX RF: 0 amlodipine 10 mg tablet 5 mg PO QAM RF: 0 clopidogrel [Plavix] 75 mg Tablet 75 mg PO DAILY RF: 0 Lantus Solostar U-100 Insulin 100 unit/mL (3 mL) insulin pen 50 unit SUBCUT BID RF: 0 sevelamer carbonate [Renvela] 800 mg tablet 800 mg PO TIDM RF: 0 ProRenal 8 mg iron-800 mcg-1,000 unit tablet 1 tab PO QPM RF: 0 nitroglycerin [Nitrostat] 0.4 mg Tablet, Sublingual 0.4 mg sublingual UD PRN (Reason: chest pain) Qty: 20 RF: 0 atorvastatin 40 mg Tablet 40 mg PO PM Qty: 30 RF: 5 carvedilol [Coreg] 6.25 mg tablet 3.125 mg PO BID Qty: 0 RF: 0 aspirin 81 mg Tablet,Delayed Release (Dr/Ec) 81 mg PO DAILY RF: 0 famotidine 20 mg tablet 20 mg PO DAILY RF: 0 oxycodone 5 mg tablet 5 mg PO DIRECTED PRN (Reason: Pain) RF: 0 Discontinued warfarin 2 mg Tablet See Rx Instructions .ROUTE .COMPLEX RF: 0 Discharge Orders: Discharge Order (Routine); Ordered 06/16/20 Ordered By: Angel Burgos/Other Patient Handouts: Managing Type 2 Diabetes Admission Data Admit Date/Time: 06/10/20 17:43 Attending Provider: Angel Morrison Admit Provider: Carmen Slater Primary Care Provider: Shiv Gallardo Other Providers: Carmen Slater ; Tobias Richard ; [facility] Coding Level of Care Code D/C Day Management >30 mins Diagnoses Hypoxia R09.02 Non-ST elevation (NSTEMI) myocardial infarction I21.4 Paroxysmal atrial fibrillation I48.0 CKD (chronic kidney disease), stage V N18.5 BPH (benign prostatic hyperplasia) N40.0 Lower urinary tract symptom presence: symptoms absent Depression F33.9 Depression Type: major depressive disorder Major depression recurrence: recurrent Active/Remission status: remission status unspecified Diabetes mellitus type 2 in obese E11.69; E66.9 Hypercholesterolemia E78.00 Sleep apnea G47.30 Sleep apnea type: unspecified type HTN (hypertension) I10 Hypertension type: essential hypertension Anemia D64.9 DVT prophylaxis Z29.9 Fall W19.XXXA
== END 2020-06-16 14:15 | disposition home health service (06) | DRG 177 ==
LOC: ED 14:57 → SUATTDRO 17:43 → 2S 17:43

== ENCOUNTER 2020-08-15 04:59 | Inpatient (IN) ==
--- NOTE | 2020-08-15 05:19 | Emergency Department Note ---
Impression & Plan Syncope and collapse ED Provider Note Name: LYNN BENZ Age: 70 Sex: M Arrives Via: Ambulance Informant: Patient ED Provider: Kwesi Sears MD Chief Complaint: Syncope Impression: Syncope and collapse Medical Decision Makin yr old male with extensive PMH who is on dialysis arrives after laying on bathroom floor all night. Admits he must have passed out and awaken some time later after going to bathroom. On arrival complains of mild left knee pain. Is on blood thinners and with syncope CT head obtained which was negative. Labs unremarkable for renal failure patient. Not consistent with sepsis, lungs are clear and abdomen soft non-tender. No evidence ACS, Dissection and with Coumadin use unlikely PE. With history will need further obs which patient is comfortable with. Prior Medical Record and Triage/Nursing Notes reviewed by Me Additional history obtained from chart Differentials:Vasovagal event, dehydration, infection, hypoglycemia, electrolyte abnormalities, cardiac sources, intracerebral event, pulmonary embolism, seizure, toxicologic, neurologic, as well as other pathologies. Vital Signs: reviewed and remarkable for no significant abnormalities Labs:Reviewed and remarkable for renal failure Imaging:X ray results are stated below per my interpretation: Chest: 1 view: No infiltrate, no effusion, normal cardiac border. [facility] Radiologist interpretation reviewed by me: ct head no acute findings EKG:Per My Interpretation: Indication Syncope: NSR 81 bpm, qtc 455. No Ectopy. No Ischemia. Compared to EKG 06/10/20, no significant changes. Cardiac/Tele Monitoring: Cardiac Monitoring: An Order was placed for continuous cardiac monitoring. The monitor shows a rate of 80 with a normal sinus rhythm. Cons[facility] who will evaluate further Plan: Disposition:Hospitalization. Condition: Good History of Present Illness:70 yr old male arrives for evaluation of syncope. Patient notes he was feeling well and last night was on his way to the bathroom. The next this he remembers is waking up on the floor an unknown time later. Notes his left knee is sore but no headache, chest pain, sob, nor other symptoms. Unknown if he hit his head. He admits he felt too weak to get up and laid on the ground for several hours before getting help. EMS arrived and brought him to ED. No medications prior to arrival. Nothing makes better nor worse. Denies other symptoms. Denies any etoh/drug use. Denies passing out regularly though notes previously was told he may need to pacemaker. No nausea, vomiting, chest pain, fevers, chills, cough, sob, abdominal pain, back pain, rashes, swelling, nor other symptoms. Denies neck pain, weakness, nor headache. ROS: See above HPI for pertinent positives & negatives. A total of 10 systems reviewed and were otherwise negative. Past Medical History:See Below Past Surgical History:See Below Family History:See Below Social History:See Below Home Medications:See Below Allergies:See Below Vitals:Blood Pressure: 168/71, Pulse 82, RR 18, T 6.7C, O2 93% on RA Physical Exam: GENERAL: Patient is chronically unwell appearing and in mild distress. EYES: No scleral icterus, unremarkable pupils. ENT: Mucous membranes moist, no nasal congestion. NECK: No masses appreciated, nomeningismus, trachea is midline. RESPIRATORY: No dyspnea. Clear to auscultation and equal bilaterally. No wheeze, no rhonchi. CARDIOVASCULAR: Regular rate and rhythm.No murmurs, rubs, gallops appreciated. GASTROINTESTINAL: Abdomen soft, non-tender, no peritonitis.Bowel sounds positive.No masses appreciated. BACK: No midline tenderness, no CVA tenderness EXTREMITIES: Fistular right arm with good thrill. Abrasion left knee. Normal motion all extremities, no cyanosis, no edema. NEUROLOGIC: Alert and oriented, no acute motor or sensory deficits, no focal weakness, cranial nerves grossly intact. SKIN: No rash, no jaundice, no diaphoresis. PSYCH: Appropriate GCS: 15 ED Course: Times/Reassessments: stable, feeling well, comfortable with hospitalization Kwesi Sears MD Past Med/Surg History Medical History Anemia CAD (coronary artery disease) s/p LAD stents (2018 and 2019) Diabetes Dyslipidemia HTN (hypertension) Paroxysmal atrial fibrillation Pneumonia due to 2019 novel coronavirus Secondary hyperparathyroidism of renal origin Sinus node dysfunction Sleep apnea does not use CPAP Surgical History AV fistula History of loop recorder Implanted 05/01/2019 S/P CABG (coronary artery bypass graft) Family History Other Hypertension Denies family history of Kidney disease Social History Smoking Status: Never smoker Tobacco Type: Cigarettes Cigarettes Per Day: 10; Second Hand Exposure: No; Hx Alcohol Use: No Hx Substance Use: No Preferred Language: Hungarian Communication Ability: Effective Assistant [employer] Required: No Beliefs That Will Affect Care: None marital status: Current Living Situation: Alone How many Children do You have: 0 Other Information That Helps Us Care for You: No Feels Safe at Home: Yes Safety Concerns: Feels Safe At This Time Assistive Devices: None Allergies Allergies Allergy/AdvReac Type Severity Reaction Status Date / Time ragweed pollen Allergy Mild [place] Verified 08/15/20 07:25 [place] Complexes Allergy Unknown rash from Verified 08/15/20 07:25 metal Home Meds Home Medications Medication Instructions Recorded Confirmed albuterol sulfate 2 puff INHALATION Q6H PRN 01/06/19 08/15/20 furosemide [Lasix] 80 mg PO BID 01/06/19 08/15/20 insulin aspart U-100 [Novolog 10 unit SUBCUT AC 01/06/19 08/15/20 PenFill U-100 Insulin] loratadine 10 mg PO DAILY PRN 01/06/19 08/15/20 sertraline 50 mg PO QAM PRN 01/06/19 08/15/20 tamsulosin 0.4 mg PO QAM 01/06/19 08/15/20 Lantus Solostar U-100 Insulin 50 unit SUBCUT BID 03/06/19 08/15/20 clopidogrel [Plavix] 75 mg PO DAILY 03/06/19 08/15/20 ProRenal 1 tab PO QPM 09/26/19 08/15/20 sevelamer carbonate [Renvela] 800 mg PO TIDM 09/26/19 08/15/20 amlodipine 10 mg tablet 5 mg PO QAM tab 12/18/19 08/15/20 clonidine HCl 0.1 mg tablet See Rx Instructions .ROUTE .COMPLEX 12/18/19 08/15/20 aspirin 81 mg PO DAILY 05/21/20 08/15/20 Previous Rx's Medication Instructions Recorded atorvastatin 40 mg PO PM #30 tab 12/27/19 nitroglycerin [Nitrostat] 0.4 mg SUBLINGUAL UD PRN #20 tab 12/27/19 carvedilol [Coreg] 3.125 mg PO BID #0 tab 05/18/20 Results & Data (ED) Vital Signs Vital Signs - 24 hr 08/15/20 05:06 08/15/20 05:13 Pulse Rate 82 Pulse Rate [Finger] 81 Respiratory Rate 18 18 Respiratory Effort / Characteristics Non-Labored Non-Labored Respiratory Depth Normal Normal Blood Pressure 168/71 H Blood Pressure [Left Arm] 168/71 H Blood Pressure Mean 103 Blood Pressure Mean [Left Arm] 103 Blood Pressure Position Lying Pulse Oximetry 93 95 Oxygen Delivery Method Room Air Room Air Sepsis Recent Fever Within 48 Hours No Sepsis New/Unexplained Change in Mental Status No Sepsis Action Taken by Nursing No Action Required Laboratory Data Result diagrams: 08/16/20 06:23 08/16/20 06:23 Lab Results 08/15/20 08/15/20 08/15/20 Range/Units 05:18 05:18 05:18 WBC 16.60 H (4.8-10.8) K/uL RBC 4.46 L (4.7-6.1) M/uL Hgb 13.0 L (14.0-18.0) g/dL Hct 41.8 L (42-52) % MCV 93.7 (80-100) fL MCH 29.1 (25-34) pg MCHC 31.1 L (32-36) g/dL RDW Std Deviation 56.3 H (36.4-46.3) fL RDW Coeff of Atif 16.4 H (11.5-14.5) % Plt Count 365 (130-400) K/uL MPV 10.2 (7.4-10.4) fL Immature Gran % (Auto) 0.5 % Neut % (Auto) 84.0 % Lymph % (Auto) 9.8 % Pender % (Auto) 4.7 % Eos % (Auto) 0.8 % Baso % (Auto) 0.2 % Neut # (Auto) 13.96 H (1.4-6.5) K/uL Lymph # (Auto) 1.62 (1.2-3.4) K/uL Pender # (Auto) 0.78 H (0.11-0.59) K/uL Eos # (Auto) 0.13 (0-0.5) K/uL Baso # (Auto) 0.03 (0-0.2) K/uL Immature Gran # (Auto) 0.08 H (0.00-0.02) K/uL PT 14.2 H (9.0-12.0) Seconds INR 1.4 H (0.9-1.1) Sodium 137 (136-145) mmol/L Potassium 4.2 (3.5-5.1) mmol/L Chloride 101 (98-107) mmol/L Carbon Dioxide 29 (21-32) mmol/L Anion Gap 7.0 (3-11) BUN 59 H (7-18) mg/dl Creatinine 4.73 H* (0.6-1.4) mg/dl Est Cr Clr Drug Dosing 20.1 ml/min Est GFR ( Amer) 13.6 Est GFR (Non-Af Amer) 11.8 BUN/Creatinine Ratio 12.4 (10-20) Glucose 93 (70-99) mg/dl Calcium 9.1 (8.5-10.1) mg/dl Total Bilirubin 0.3 (0.2-1) mg/dl Direct Bilirubin < 0.1 (0-0.2) mg/dl AST 19 (15-37) U/L ALT 20 (12-78) U/L Alkaline Phosphatase 53 (45-117) U/L Total Creatine Kinase 140 (39-308) U/L Troponin I < 0.015 (0-0.045) ng/ml Total Protein 9.1 H (6.4-8.2) gm/dl Albumin 3.3 L (3.4-5.0) gm/dl Lipase 728 H (73-393) U/L Urine Color Urine Appearance (Clear) Urine pH (4.5-7.5) Ur Specific [place] (1.000-1.030) Urine Protein (Negative) Urine Glucose (UA) (Negative) Urine Ketones (Negative) Urine Blood (Negative) Urine Nitrite (Negative) Urine Bilirubin (Negative) Urine Urobilinogen (Negative) Ur Leukocyte Esterase (Negative) Urine WBC (Auto) (0-5) /hpf Urine RBC (Auto) (0-4) /hpf U Hyaline Cast (Auto) (0-5) /lpf U Epithel Cells (Auto) (0-5) /lpf Urine Bacteria (Auto) (Negative) Granular Casts (0) /lpf Urine Yeast COVID-19 Eval Order SARS-CoV-2 (PCR) (Negative) Hep Bs Antigen (Neg) Hep Bs Antibody Hep Bs Antibody, Quant (>or=10mIU/mL Immune) mIU/mL Influenza Type A (PCR) (Neg) Influenza Type B (PCR) (Neg) RSV (RT-PCR) (Neg) 08/15/20 08/15/20 08/15/20 Range/Units 05:18 05:18 05:18 WBC (4.8-10.8) K/uL RBC (4.7-6.1) M/uL Hgb (14.0-18.0) g/dL Hct (42-52) % MCV (80-100) fL MCH (25-34) pg MCHC (32-36) g/dL RDW Std Deviation (36.4-46.3) fL RDW Coeff of Atif (11.5-14.5) % Plt Count (130-400) K/uL MPV (7.4-10.4) fL Immature Gran % (Auto) % Neut % (Auto) % Lymph % (Auto) % Pender % (Auto) % Eos % (Auto) % Baso % (Auto) % Neut # (Auto) (1.4-6.5) K/uL Lymph # (Auto) (1.2-3.4) K/uL Pender # (Auto) (0.11-0.59) K/uL Eos # (Auto) (0-0.5) K/uL Baso # (Auto) (0-0.2) K/uL Immature Gran # (Auto) (0.00-0.02) K/uL PT (9.0-12.0) Seconds INR (0.9-1.1) Sodium (136-145) mmol/L Potassium (3.5-5.1) mmol/L Chloride (98-107) mmol/L Carbon Dioxide (21-32) mmol/L Anion Gap (3-11) BUN (7-18) mg/dl Creatinine (0.6-1.4) mg/dl Est Cr Clr Drug Dosing ml/min Est GFR ( Amer) Est GFR (Non-Af Amer) BUN/Creatinine Ratio (10-20) Glucose (70-99) mg/dl Calcium (8.5-10.1) mg/dl Total Bilirubin (0.2-1) mg/dl Direct Bilirubin (0-0.2) mg/dl AST (15-37) U/L ALT (12-78) U/L Alkaline Phosphatase (45-117) U/L Total Creatine Kinase (39-308) U/L Troponin I (0-0.045) ng/ml Total Protein (6.4-8.2) gm/dl Albumin (3.4-5.0) gm/dl Lipase (73-393) U/L Urine Color Yellow Urine Appearance Cloudy A (Clear) Urine pH 5.0 (4.5-7.5) Ur Specific [place] 1.019 (1.000-1.030) Urine Protein 1+ H (Negative) Urine Glucose (UA) Negative (Negative) Urine Ketones Negative (Negative) Urine Blood Trace H (Negative) Urine Nitrite Negative (Negative) Urine Bilirubin Negative (Negative) Urine Urobilinogen Negative (Negative) Ur Leukocyte Esterase Negative (Negative) Urine WBC (Auto) 1-5 (0-5) /hpf Urine RBC (Auto) 0-4 (0-4) /hpf U Hyaline Cast (Auto) 1-5 (0-5) /lpf U Epithel Cells (Auto) 20-30 H (0-5) /lpf Urine Bacteria (Auto) Negative (Negative) Granular Casts 1-5 H (0) /lpf Urine Yeast Not Reportable COVID-19 Eval Order CovFluRsv at [facility] SARS-CoV-2 (PCR) NEGATIVE (Negative) Hep Bs Antigen (Neg) Hep Bs Antibody Hep Bs Antibody, Quant (>or=10mIU/mL Immune) mIU/mL Influenza Type A (PCR) Negative (Neg) Influenza Type B (PCR) Negative (Neg) RSV (RT-PCR) Negative (Neg) 08/15/20 Range/Units 05:18 WBC (4.8-10.8) K/uL RBC (4.7-6.1) M/uL Hgb (14.0-18.0) g/dL Hct (42-52) % MCV (80-100) fL MCH (25-34) pg MCHC (32-36) g/dL RDW Std Deviation (36.4-46.3) fL RDW Coeff of Atif (11.5-14.5) % Plt Count (130-400) K/uL MPV (7.4-10.4) fL Immature Gran % (Auto) % Neut % (Auto) % Lymph % (Auto) % Pender % (Auto) % Eos % (Auto) % Baso % (Auto) % Neut # (Auto) (1.4-6.5) K/uL Lymph # (Auto) (1.2-3.4) K/uL Pender # (Auto) (0.11-0.59) K/uL Eos # (Auto) (0-0.5) K/uL Baso # (Auto) (0-0.2) K/uL Immature Gran # (Auto) (0.00-0.02) K/uL PT (9.0-12.0) Seconds INR (0.9-1.1) Sodium (136-145) mmol/L Potassium (3.5-5.1) mmol/L Chloride (98-107) mmol/L Carbon Dioxide (21-32) mmol/L Anion Gap (3-11) BUN (7-18) mg/dl Creatinine (0.6-1.4) mg/dl Est Cr Clr Drug Dosing ml/min Est GFR ( Amer) Est GFR (Non-Af Amer) BUN/Creatinine Ratio (10-20) Glucose (70-99) mg/dl Calcium (8.5-10.1) mg/dl Total Bilirubin (0.2-1) mg/dl Direct Bilirubin (0-0.2) mg/dl AST (15-37) U/L ALT (12-78) U/L Alkaline Phosphatase (45-117) U/L Total Creatine Kinase (39-308) U/L Troponin I (0-0.045) ng/ml Total Protein (6.4-8.2) gm/dl Albumin (3.4-5.0) gm/dl Lipase (73-393) U/L Urine Color Urine Appearance (Clear) Urine pH (4.5-7.5) Ur Specific [place] (1.000-1.030) Urine Protein (Negative) Urine Glucose (UA) (Negative) Urine Ketones (Negative) Urine Blood (Negative) Urine Nitrite (Negative) Urine Bilirubin (Negative) Urine Urobilinogen (Negative) Ur Leukocyte Esterase (Negative) Urine WBC (Auto) (0-5) /hpf Urine RBC (Auto) (0-4) /hpf U Hyaline Cast (Auto) (0-5) /lpf U Epithel Cells (Auto) (0-5) /lpf Urine Bacteria (Auto) (Negative) Granular Casts (0) /lpf Urine Yeast COVID-19 Eval Order SARS-CoV-2 (PCR) (Negative) Hep Bs Antigen Neg (Neg) Hep Bs Antibody Immune Hep Bs Antibody, Quant 14.55 (>or=10mIU/mL Immune) mIU/mL Influenza Type A (PCR) (Neg) Influenza Type B (PCR) (Neg) RSV (RT-PCR) (Neg) Administered Medications Amlodipine Besylate (Amlodipine Besylate 5 Mg Tab) 5 mg PO QAM ANTONY Stop: 09/14/20 08:59 Last Admin: 08/15/20 10:14 Dose: 5 mg Documented by: [id number] Aspirin (Aspirin 81 Mg Ectab) 81 mg PO DAILY ANTONY Stop: 09/14/20 08:59 Last Admin: 08/15/20 10:13 Dose: 81 mg Documented by: [id number] Atorvastatin Calcium (Atorvastatin 40 Mg Tab) 40 mg PO PM ANTONY Stop: 09/14/20 20:59 Last Admin: 08/15/20 21:18 Dose: 40 mg Documented by: [id number] Carvedilol (Carvedilol 3.125 Mg Tab) 3.125 mg PO BID ANTONY Stop: 09/14/20 08:59 Last Admin: 08/15/20 21:18 Dose: 3.125 mg Documented by: [id number] Admin: 08/15/20 10:13 Dose: 3.125 mg Documented by: [id number] Clonidine HCl (Clonidine Hcl 0.1 Mg Tab) 0.2 mg PO DAILY ANTONY Stop: 09/14/20 09:29 Last Admin: 08/15/20 10:14 Dose: 0.2 mg Documented by: [id number] Clonidine HCl (Clonidine Hcl 0.1 Mg Tab) 0.1 mg PO QPM ANTONY Stop: 09/14/20 20:59 Last Admin: 08/15/20 21:19 Dose: 0.1 mg Documented by: [id number] Clopidogrel Bisulfate (Clopidogrel Bisulfate 75 Mg Tab) 75 mg PO DAILY ANTONY Stop: 09/14/20 08:59 Last Admin: 08/15/20 10:14 Dose: 75 mg Documented by: [id number] Famotidine (Famotidine 20 Mg Tab) 20 mg PO DAILY ANTONY Stop: 09/14/20 08:59 Last Admin: 08/15/20 10:14 Dose: 20 mg Documented by: [id number] Furosemide (Furosemide 80 Mg Tab) 80 mg PO [id number] [facility] Stop: 09/14/20 08:59 Last Admin: 08/15/20 17:22 Dose: 80 mg Documented by: [id number] Admin: 08/15/20 10:13 Dose: 80 mg Documented by: [id number] Heparin Sodium (Porcine) (Heparin Sod 5,000 Unit/0.5 Ml Vial) 7,500 units SQ Q8 [facility] Stop: 09/14/20 13:59 Last Admin: 08/16/20 05:57 Dose: 7,500 units Documented by: [id number] Admin: 08/15/20 21:19 Dose: 7,500 units Documented by: [id number] Admin: 08/15/20 11:47 Dose: 7,500 units Documented by: [id number] Insulin Aspart (Insulin Aspart 100 Units/Ml 3 Ml Pen) 0 units SC ACHS [facility] Stop: 09/14/20 11:29 Last Admin: 08/15/20 21:24 Dose: Not Given Documented by: [id number] Cosigned by: [id number] Admin: 08/15/20 17:20 Dose: 3 units Documented by: [id number] Cosigned by: [id number] Admin: 08/15/20 11:47 Dose: 7 units Documented by: [id number] Cosigned by: [id number] Insulin Glargine (Insulin Glargine Solostar 100 Units/Ml 3 Ml Pen) 30 units SQ BID ANTONY Stop: 09/14/20 11:29 Last Admin: 08/15/20 21:22 Dose: 30 units Documented by: [id number] Cosigned by: [id number] Admin: 08/15/20 11:46 Dose: 30 units Documented by: [id number] Cosigned by: [id number] Sevelamer HCl (Sevelamer Hcl 800 Mg Tablet) 800 mg PO TIDM [facility] Stop: 09/14/20 08:46 Last Admin: 08/15/20 17:22 Dose: 800 mg Documented by: [id number] Admin: 08/15/20 11:47 Dose: 800 mg Documented by: [id number] Admin: 08/15/20 10:13 Dose: 800 mg Documented by: [id number] Tamsulosin HCl (Tamsulosin Hcl 0.4 Mg Cap) 0.4 mg PO QAM ANTONY Stop: 09/14/20 08:59 Last Admin: 08/15/20 10:13 Dose: 0.4 mg Documented by: [id number] Vitamin B Complex/Folic Acid (Nephrocaps) 1 cap PO QPM ANTONY Stop: 09/14/20 20:59 Last Admin: 08/15/20 21:19 Dose: 1 cap Documented by: [id number] Discontinued Medications Acetaminophen (Acetaminophen 500 Mg Tab) 1,000 mg PO NOW STA Stop: 08/15/20 05:38 Last Admin: 08/15/20 05:44 Dose: 1,000 mg Documented by: [id number] Heparin Sodium (Porcine) (Heparin Sod (Porcine) 1000 Unit/Ml 10 Ml Vial) 2,000 units IV ONE ONE Stop: 08/15/20 10:14 Last Admin: 08/15/20 16:14 Dose: Not Given Documented by: [id number] Heparin Sodium (Porcine) (Heparin Sod (Porcine) 1000 Unit/Ml 10 Ml Vial) 1,000 units IV Q1H ANTONY Stop: 08/15/20 10:16 Last Admin: 08/15/20 13:22 Dose: Not Given Documented by: [id number] Imaging Data Radiologist's Impression: Chest X-Ray 08/15/20 05:17 XR chest 1V portable CLINICAL HISTORY: syncope COMPARISON STUDY: 06/10/2020 FINDINGS: The heart is enlarged. There are postsurgical changes of midline sternotomy. Left type device projects over the left lower chest possibly representing an event recorder. There are improving bilateral lower lung zone opacities. There is minor blunting of the lateral costophrenic angles.[ IMPRESSION: Improving bilateral pulmonary airspace opacities ACT 112: Negative or not required by law. Electronically signed by: Etienne Valerio M.D. 08/15/2020 7:[address] 08/15/20 05:17 CT head/brain wo con CLINICAL HISTORY: syncope COMPARISON STUDY: 06/10/2020 TECHNIQUE: Axial CT of the brain is performed from the vertex to the skull base. IV contrast was not administered for this examination. A dose lowering technique was utilized adhering to the principles of ALARA. CT DOSE: 1768.17 mGy.cm FINDINGS: No intra or extra-axial mass lesions are visualized. There is no CT evidence of acute cortical infarction. There is no evidence of midline shift. There is no acute hemorrhage. No calvarial fractures are visualized. There are patchy white matter hypodensities likely on a small vessel basis. 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 There is no evidence of acute sinusitis IMPRESSION: No acute intracranial findings ACT 112: Negative or not required by law. Electronically signed by: Etienne Valerio M.D. 08/15/2020 7:18 AM Knee X-Ray 08/15/20 05:17 XR knee LT 3V CLINICAL HISTORY: Left knee pain status post trauma COMPARISON: April 2019 DISCUSSION: No acute fractures or dislocations are visualized. There are mild osteoarthritic changes. IMPRESSION: No acute fractures or dislocations identified. ACT 112: Negative or not required by law. Electronically signed by: Etienne Valerio M.D. 08/15/2020 7:16 AM Discharge Plan Visit Data Chief Complaint: Fall Stated Complaint: FALL ED Provider: Kwesi Sears Discharge Problem: Syncope and collapse Patient Disposition: Admitted As Inpatient Discharge Instructions Interventions: ED Discharge Assessment Last Done: 08/15/20 08:15
[2020-08-15 05:28] LABS: Basophils # (auto) 0.03 K/uL (0-0.2); Basophils % (auto) 0.2 %; Eosinophils # (auto) 0.13 K/uL (0-0.5); Eosinophils % (auto) 0.8 %; Hematocrit (blood only) 41.8 % (42-52); Immature Granulocytes # (auto) 0.08 K/uL (0.00-0.02); Immature Granulocytes % (auto) 0.5 %; Lymphocytes # (auto) 1.62 K/uL (1.2-3.4); Lymphocytes % (auto) 9.8 %; Mean Corpuscular Hemoglobin 29.1 pg (25-34); Mean Corpuscular Hgb Conc 31.1 g/dL (32-36); Mean Corpuscular Volume 93.7 fL (80-100); Mean Platelet Volume 10.2 fL (7.4-10.4); Monocytes # (auto) 0.78 K/uL (0.11-0.59); Monocytes % (auto) 4.7 %; Neutrophils # (auto) 13.96 K/uL (1.4-6.5); Platelet Count 365 K/uL (130-400); RDW Coefficient of Variation 16.4 % (11.5-14.5); RDW Standard Deviation 56.3 fL (36.4-46.3); Red Blood Count 4.46 M/uL (4.7-6.1)
[2020-08-15 05:37] LABS: INR 1.4 (0.9-1.1); Prothrombin Time 14.2 Seconds (9.0-12.0)
[2020-08-15] MEDS ORDERED: ACETAMINOPHEN 500 MG TAB PO STA (05:37)
[2020-08-15 05:43] LABS: Albumin Level 3.3 gm/dl (3.4-5.0); Blood Urea Nitrogen 59 mg/dl (7-18); Calcium 9.1 mg/dl (8.5-10.1); Carbon Dioxide 29 mmol/L (21-32); Chloride 101 mmol/L (98-107); Glucose 93 mg/dl (70-99); Lipase 728 U/L (73-393); Potassium 4.2 mmol/L (3.5-5.1); Sodium 137 mmol/L (136-145)
[2020-08-15 06:00] LABS: Alanine Aminotransferase 20 U/L (12-78); Alkaline Phosphatase 53 U/L (45-117); Aspartate Aminotransferase 19 U/L (15-37); BUN Creatinine Ratio 12.4 (10-20); Bilirubin Direct < 0.1 mg/dl (0-0.2); Bilirubin,Total 0.3 mg/dl (0.2-1); Creatine Kinase 140 U/L (39-308); Creatinine Clr Calc Pharmacy 20.1 ml/min; Est GFR (African American) 13.6; Est GFR (Non-African American) 11.8; Total Protein 9.1 gm/dl (6.4-8.2); Troponin I < 0.015 ng/ml (0-0.045)
[2020-08-15 06:21] LABS: Appearance Urine Cloudy (Clear); Bacteria Urine Automated Negative (Negative); Bilirubin Urine Negative (Negative); Blood Urine Trace (Negative); Color Urine Yellow; Epithelial Cell Urine Auto 20-30 /lpf (0-5); Glucose Urine UA Negative (Negative); Ketones Urine Negative (Negative); Leukocyte Esterase Urine Negative (Negative); Nitrite Urine Negative (Negative); Protein Urine 1+ (Negative); RBC Urine Automated 0-4 /hpf (0-4); Specific Gravity Urine 1.019 (1.000-1.030); Urobilinogen Urine Negative (Negative)
[2020-08-15 06:41] LABS: Influenza A virus by PCR Negative (Neg); Influenza B virus by PCR Negative (Neg); RSV by PCR Negative (Neg); SARS CoV2 RNA(COVID-19) InHosp NEGATIVE (Negative)
--- NOTE | 2020-08-15 07:17 | XRay Report ---
XR chest 1V portable CLINICAL HISTORY: syncope COMPARISON STUDY: 06/10/2020 FINDINGS: The heart is enlarged. There are postsurgical changes of midline sternotomy. Left type gerardo ce projects over the left lower chest possibly representing an event recorder. There are improving bi lateral lower lung zone opacities. There is minor blunting of the lateral costophrenic angles.[ IMPRESSION: Improving bilateral pulmonary airspace opacities ACT 112: Negative or not required by law. Electronically signed by: Etienne Valerio M.D. 08/15/2020 7:16 AM
--- NOTE | 2020-08-15 07:18 | XRay Report ---
XR knee LT 3V CLINICAL HISTORY: Left knee pain status post trauma COMPARISON: April 2019 DISCUSSION: No acute fractures or dislocations are visualized. There are mild osteoarthritic changes. IMPRESSION: No acute fractures or dislocations identified. ACT 112: Negative or not required by law. Electronically signed by: Etienne Valerio M.D. 08/15/2020 7:16 AM
--- NOTE | 2020-08-15 07:19 | CT Scan Report ---
CT head/brain wo con CLINICAL HISTORY: syncope COMPARISON STUDY: 06/10/2020 TECHNIQUE: Axial CT of the brain is performed from the vertex to the skull base. IV contrast was not administered for this examination. A dose lowering technique was utilized adhering to the principles of ALARA. CT DOSE: 1768.17 mGy.cm FINDINGS: No intra or extra-axial mass lesions are visualized. There is no CT evidence of acute cortical infarc tion. There is no evidence of midline shift. There is no acute hemorrhage. No calvarial fractures ar e visualized. There are patchy white matter hypodensities likely on a small vessel basis. There is an old right tem poro-occipital infarct There is no evidence of pathologic ventricular dilatation. There is no evidence of acute sinusitis IMPRESSION: No acute intracranial findings ACT 112: Negative or not required by law. Electronically signed by: Etienne Valerio M.D. 08/15/2020 7:18 AM
[2020-08-15] MEDS ORDERED: ONDANSETRON INJ 2 MG/ML 2 ML VIAL IV PRN (08:47)
--- NOTE | 2020-08-15 09:15 | Electrocardiogram Report ---
Test Reason : Blood Pressure : / mmHG Vent. Rate : 081 BPM Atrial Rate : 081 BPM P-R Int : 206 ms QRS Dur : 118 ms QT Int : 392 ms P-R-T Axes : 064 084 032 degrees QTc Int : 455 ms Normal sinus rhythm Minor Non-specific intra-ventricular conduction delay Nonspecific T wave abnormality Inferior leads Abnormal ECG When compared with ECG of 10-JUN-2020 15:05, Nonspecific T wave abnormality now evident in Inferior leads Confirmed by Grover Garzon ([id number]) on 08/15/2020 9:15:45 AM Referred By: REFERRED SELF Confirmed By:Grover Garzon
[2020-08-15] MEDS: TAMSULOSIN HCL 0.4 MG CAP PO SCH (10:13)
[2020-08-15] MEDS ORDERED: SODIUM CHLORIDE 0.9% 1000ML 1,000 ML IV PRN (10:13)
[2020-08-15] MEDS ORDERED: HEPARIN SOD (PORCINE) 1000 UNIT/ML IV ONE (10:13)
[2020-08-15] MEDS: ASPIRIN 81 MG ECTAB PO SCH (10:13)
[2020-08-15] MEDS: carvediloL 3.125 MG TAB PO SCH ×2 (10:13→21:18)
[2020-08-15] MEDS: FUROSEMIDE 80 MG TAB PO SCH ×2 (10:13→17:22)
[2020-08-15] MEDS: SEVELAMER HCL 800 MG TABLET PO SCH ×3 (10:13→17:22)
[2020-08-15] MEDS: FAMOTIDINE 20 MG TAB PO SCH (10:14)
[2020-08-15] MEDS: CLOPIDOGREL BISULFATE 75 MG TAB PO SCH (10:14)
[2020-08-15] MEDS: amLODIPine BESYLATE 5 MG TAB PO SCH (10:14)
[2020-08-15] MEDS: cloNIDine HCL 0.1 MG TAB PO SCH ×2 (10:14→21:19)
[2020-08-15] MEDS ORDERED: HEPARIN SOD (PORCINE) 1000 UNIT/ML IV SCH (10:15)
--- NOTE | 2020-08-15 10:18 | Nephrology Consultation ---
Date of Consultation August 15, 2020 Assessment & Plan (1) End-stage renal disease on hemodialysis: * Electrolyte balance is acceptable. Although patient is reportedly 7 kg above his EDW he appears clinically euvolemic. CXR shows only faint pulmonary infiltrates * Will provide HD today for 3 hours and attempt 3 L UF - orders placed in EMR and HD RN notified * Recommend HD/diabetic diet * Protect AVF (2) Syncope: * Possible micturition syncope * Currently hemodynamically stable * Advise monitoring cardiac rhythm and troponin levels * Recommend checking orthostatic vitals and ambulate w/ PT (3) Diabetes mellitus type 2 in obese: (4) Sleep apnea: History of Present Illness Reason for Consultation: ESRD Attending Physician: Angel Morrison, History of Present Illness Mr. Solorio is a 70 year old white male who is seen at the request of Dr. Morrison to provide inpatient HD. Medical records in the EMR were reviewed today and are summarized as follows: Mr. Solorio has received the majority of his medical care through the [facility]. In March 2019 he progressed to ESRD. He currently dialyzes at [facility] (Container Maker is Dr. Raza: TTS, 4 hrs, 3K 2.5Ca 1.0Mg Na 140 HCO3 35, F-180NR, EDW 117.6kg). His medical history is significant for AODM, HTN, ASCVD s/p CABG, atrial fibrillation, obesity, RADHA, COVID + 06/04. Mr. Solorio reports high interdialytic weight gains and h/o cramping with HD. His AVF has been functioning well. His last treatment on was without complication. Mr. Solorio suffered a syncopal event last evening after using the bathroom. He reports no prodrome or seizure activity. He awoke on the floor and did not hit his head. He was found by the transportation maintenance operator this morning who came to take him to dialysis. EMS was called and Mr. Solorio states that he walked out to the ambulance. Mr. Solorio currently denies fever, CISSE, angina, dyspnea or uremic symptoms. Head CT this am was negative for CVA. Allergies Allergy/AdvReac Type Severity Reaction Status Date / Time ragweed pollen Allergy Mild [place] Verified 08/15/20 07:25 [place] Complexes Allergy Unknown rash from Verified 08/15/20 07:25 metal Home Medications Medication Instructions Recorded Confirmed Type albuterol sulfate 2 puff INHALATION Q6H PRN 01/06/19 08/15/20 History furosemide [Lasix] 80 mg PO BID 01/06/19 08/15/20 History insulin aspart U-100 [Novolog 10 unit SUBCUT AC 01/06/19 08/15/20 History PenFill U-100 Insulin] loratadine 10 mg PO DAILY PRN 01/06/19 08/15/20 History sertraline 50 mg PO QAM PRN 01/06/19 08/15/20 History tamsulosin 0.4 mg PO QAM 01/06/19 08/15/20 History Lantus Solostar U-100 Insulin 50 unit SUBCUT BID 03/06/19 08/15/20 History clopidogrel [Plavix] 75 mg PO DAILY 03/06/19 08/15/20 History ProRenal 1 tab PO QPM 09/26/19 08/15/20 History sevelamer carbonate [Renvela] 800 mg PO TIDM 09/26/19 08/15/20 History amlodipine 10 mg tablet 5 mg PO QAM tab 12/18/19 08/15/20 History clonidine HCl 0.1 mg tablet See Rx Instructions .ROUTE .COMPLEX 12/18/19 08/15/20 History atorvastatin 40 mg PO PM #30 tab 12/27/19 08/15/20 Rx nitroglycerin [Nitrostat] 0.4 mg SUBLINGUAL UD PRN #20 tab 12/27/19 08/15/20 Rx carvedilol [Coreg] 3.125 mg PO BID #0 tab 05/18/20 08/15/20 Rx aspirin 81 mg PO DAILY 05/21/20 08/15/20 History Patient History Medical History Anemia CAD (coronary artery disease) s/p LAD stents (2018 and 2019) Diabetes Dyslipidemia HTN (hypertension) Paroxysmal atrial fibrillation Secondary hyperparathyroidism of renal origin Sinus node dysfunction Sleep apnea does not use CPAP Surgical History AV fistula History of loop recorder Implanted 05/01/2019 S/P CABG (coronary artery bypass graft) Family History Other Hypertension Denies family history of Kidney disease Social History Smoking Status: Never smoker Tobacco Type: Cigarettes Cigarettes Per Day: 10; Second Hand Exposure: No; Hx Alcohol Use: No Hx Substance Use: No Preferred Language: Indonesian Communication Ability: Effective Senior Procurement Manager Required: No Beliefs That Will Affect Care: None marital status: Current Living Situation: Alone How many Children do You have: 0 Other Information That Helps Us Care for You: No Feels Safe at Home: Yes Safety Concerns: Feels Safe At This Time Assistive Devices: Cane Review of Systems Constitutional: no fever Eyes: no problem reported Ear, Nose, Mouth, Throat: no problem reported Respiratory: no cough and no dyspnea Cardiovascular: no chest pain and no edema Gastrointestinal: no abdominal pain, no vomiting and no diarrhea/loose stools Musculoskeletal: no back pain Integumentary: no rash Neurologic: + falls; no dizziness and no confusion Physical Exam Constitutional: + overweight (chronically ill appearing) Eyes: PERRL, conjunctivae normal, anicteric sclerae ENMT: external ear and nose normal, oropharynx normal Neck: trachea midline, no thyromegaly Respiratory: normal respiratory effort, lungs clear to auscultation Cardiovascular: Rate/Rhythm: regular rhythm Extremities: + AV fistula (+ bruit); no edema Gastrointestinal (Abdomen): normal bowel sounds, soft, nontender, no hepatosplenomegaly Musculoskeletal: Extremities: no cyanosis Skin: no rashes, warm and dry Neurologic: awake; not confused Results & Data ([facility]) Vital Signs (Past 12 Hours) Vital Signs Temp Pulse Pulse Resp BP BP Pulse Ox 08/15/20 09:00 77 18 08/15/20 08:29 36.4 C L 76 16 166/76 H 96 08/15/20 07:00 18 155/76 H 93 08/15/20 06:50 93 08/15/20 06:40 94 08/15/20 06:31 73 93 08/15/20 06:30 73 141/60 H 93 08/15/20 06:20 76 08/15/20 06:19 77 23 08/15/20 06:00 157/76 H 08/15/20 05:50 80 27 H 95 08/15/20 05:40 82 23 96 08/15/20 05:31 81 24 97 08/15/20 05:30 82 25 H 160/79 H 88 L 08/15/20 05:20 80 25 H 98 08/15/20 05:13 81 18 168/71 H 95 08/15/20 05:10 81 24 96 08/15/20 05:06 85 24 168/71 H 93 08/15/20 05:04 83 27 H 168/71 H Laboratory Results Laboratory Tests 08/15/20 08/15/20 05:18 05:18 WBC 16.60 H Hgb 13.0 L Hct 41.8 L Plt Count 365 Sodium 137 Potassium 4.2 Chloride 101 Carbon Dioxide 29 BUN 59 H Creatinine 4.73 H* Glucose 93 Albumin 3.3 L Lipase 728 H PG Care Time/CCT Total # of Minutes Spent Total Time Spent with Patient: Total time spent is greater than 50% in coordination of care (as documented) at patient's floor/unit and/or counseling patient: Coding Level of Care Code 09553 Office/OBS Consult Lvl 5 Diagnoses End-stage renal disease on hemodialysis N18.6; Z99.2 Syncope R55 Diabetes mellitus type 2 in obese E11.69; E66.9 Sleep apnea G47.30 Sleep apnea type: unspecified type (1) Sleep apnea Sleep apnea type: unspecified type Qualified Code(s): G47.30 - Sleep apnea, unspecified
[2020-08-15] MEDS: INSULIN GLARGINE SOLOSTAR 100 UNITS/ML 3 ML PEN SQ SCH ×2 (11:46→21:22)
[2020-08-15] MEDS: HEPARIN SOD 5,000 UNIT/0.5 ML VIAL SQ SCH ×2 (11:47→21:19)
[2020-08-15] MEDS: INSULIN ASPART 100 UNITS/ML 3 ML PEN SC SCH ×3 (11:47→21:24)
[2020-08-15] MEDS ORDERED: GLUCOSE 40% GEL 15 GM TUBE PO PRN (12:00)
[2020-08-15] MEDS ORDERED: DEXTROSE 50% 50 ML SYRINGE IV PRN (12:00)
[2020-08-15] MEDS ORDERED: GLUCOSE 10 TABS/TUBE PO PRN (12:00)
[2020-08-15] MEDS ORDERED: CARBOHYDRATES FOR HYPOGLYCEMIA PO PRN (12:00)
[2020-08-15] MEDS ORDERED: GLUCAGON FOR INJ 1 MG VIAL IM PRN (12:00)
[2020-08-15 13:58] LABS: Hepatitis B Surface Ab Quant 14.55 mIU/mL (>or=10mIU/mL Immune); Hepatitis B Surface Antibody Immune
[2020-08-15 14:09] LABS: Hepatitis B Surf Ag Rflx Conf Neg (Neg)
--- NOTE | 2020-08-15 16:35 | History & Physical Report ---
Date of Service August 15, 2020 Assessment & Plan (1) Syncope: syncope and collapse, happened last night at 11pm unsure what caused it, he had no warning symptoms, no chest pain, no dyspnea, no light headed, no nausea, no diaphoresis he came to quickly, on the floor of his bathroom he hit his left knee hard on the floor but did not his his head vitals stable, normal CXR and CT head no changes on EKG, troponin negative will observe on tele, check echo, orthostatic vitals no focal neurological deficits so do no suspect CVA consult PT/OT to make sure he is ambulating safely (2) End-stage renal disease on hemodialysis: consulted Dr. Jackson received HD today (3) Paroxysmal atrial flutter: h/o such, monitor on tele on Coreg, no anticoagulation (4) (HFpEF) heart failure with preserved ejection fraction: examines euvolemic, plan for UF with HD today continue Lasix, he still makes urine continue Coreg (5) CAD (coronary artery disease): h/o recent CABG no current chest pain, EKG normal, continue Coreg, Lipitor, aspirin, Plavix (6) Diabetes mellitus type 2 in obese: Lantus, Novolog SS, diabetic diet (7) BPH (benign prostatic hyperplasia): (8) Depression: Admission and Anticipated Discharge Date Admission Date: August 15, 2020 History of Present Illness Chief Complaint: I passed out Primary Care Provider: NO PCP 70 yo male with h/o ESRD on HD, CAD s/p CABG recently who presented with syncope and collapse at his home, it was unwitnessed. He says he was feeling fine yesterday, no issues eating/drinking, no fever/chills or signs of infection. He was walking into his bathroom when he fell, lost consciousness. He came to and knew he was in his home and down on the floor, had hurt his left knee but no other pain. He called for help. He says he had no warning signs of passing out, specifically no chest pain, palpitations, light headedness, diaphoresis, nausea. No history of this. He has been compliant with his medications recently, compliant with HD, he is due for HD today. Allergies Allergy/AdvReac Type Severity Reaction Status Date / Time ragweed pollen Allergy Mild [place] Verified 08/15/20 07:25 [place] Complexes Allergy Unknown rash from Verified 08/15/20 07:25 metal Home Medications Medication Instructions Recorded Confirmed Type albuterol sulfate 2 puff INHALATION Q6H PRN 01/06/19 08/15/20 History furosemide [Lasix] 80 mg PO BID 01/06/19 08/15/20 History insulin aspart U-100 [Novolog 10 unit SUBCUT AC 01/06/19 08/15/20 History PenFill U-100 Insulin] loratadine 10 mg PO DAILY PRN 01/06/19 08/15/20 History sertraline 50 mg PO QAM PRN 01/06/19 08/15/20 History tamsulosin 0.4 mg PO QAM 01/06/19 08/15/20 History Lantus Solostar U-100 Insulin 50 unit SUBCUT BID 03/06/19 08/15/20 History clopidogrel [Plavix] 75 mg PO DAILY 03/06/19 08/15/20 History ProRenal 1 tab PO QPM 09/26/19 08/15/20 History sevelamer carbonate [Renvela] 800 mg PO TIDM 09/26/19 08/15/20 History amlodipine 10 mg tablet 5 mg PO QAM tab 12/18/19 08/15/20 History clonidine HCl 0.1 mg tablet See Rx Instructions .ROUTE .COMPLEX 12/18/19 08/15/20 History atorvastatin 40 mg PO PM #30 tab 12/27/19 08/15/20 Rx nitroglycerin [Nitrostat] 0.4 mg SUBLINGUAL UD PRN #20 tab 12/27/19 08/15/20 Rx carvedilol [Coreg] 3.125 mg PO BID #0 tab 05/18/20 08/15/20 Rx aspirin 81 mg PO DAILY 05/21/20 08/15/20 History Past Med/Surg History Medical History Anemia CAD (coronary artery disease) s/p LAD stents (2018 and 2019) Diabetes Dyslipidemia HTN (hypertension) Paroxysmal atrial fibrillation Pneumonia due to 2019 novel coronavirus Secondary hyperparathyroidism of renal origin Sinus node dysfunction Sleep apnea does not use CPAP Surgical History AV fistula History of loop recorder Implanted 05/01/2019 S/P CABG (coronary artery bypass graft) Family History Other Hypertension Denies family history of Kidney disease Social History Smoking Status: Never smoker Tobacco Type: Cigarettes Cigarettes Per Day: 10; Second Hand Exposure: No; Hx Alcohol Use: No Hx Substance Use: No Preferred Language: Occitan Communication Ability: Effective Key Worker Required: No Beliefs That Will Affect Care: None marital status: Current Living Situation: Alone How many Children do You have: 0 Other Information That Helps Us Care for You: No Feels Safe at Home: Yes Safety Concerns: Feels Safe At This Time Assistive Devices: Cane Review of Systems Review of Systems: All systems reviewed & are unremarkable except as noted in HPI & below Physical Exam Constitutional: WD/WN, vitals as above + obese; no acute distress Eyes: PERRL, conjunctivae normal, anicteric sclerae ENMT: external ear and nose normal, oropharynx normal Neck: trachea midline, no thyromegaly Respiratory: normal respiratory effort, lungs clear to auscultation Cardiovascular: RRR, no murmur, no edema Extremities: + AV fistula Gastrointestinal (Abdomen): normal bowel sounds, soft, nontender, no hepatosplenomegaly Musculoskeletal: no cyanosis or clubbing, extremities motor strength 5/5 Skin: no rashes, warm and dry Neurologic: patellar DTR's 2+ bilat, sensation intact and PERRL, EOMI, accommodation nl, no face palsy, no dysarthria Psychiatric: A+Ox3, euthymic affect Lymphatic: no cervical or axillary lymphadenopathy Results & Data Results & Data ([facility]) Vital Signs (Past 12 Hours) Vital Signs Temp Pulse Pulse Pulse Resp BP BP 08/15/20 16:20 108 H 140/78 08/15/20 16:00 71 128/91 08/15/20 15:40 83 163/102 H 08/15/20 15:20 73 141/87 H 08/15/20 15:00 82 139/80 08/15/20 14:40 69 150/76 H 08/15/20 14:20 75 156/86 H 08/15/20 14:00 74 134/73 08/15/20 13:40 72 143/71 H 08/15/20 13:32 37.1 C 76 76 166/62 H 08/15/20 11:06 36.8 C 71 18 143/68 H 08/15/20 09:00 77 18 08/15/20 08:29 36.4 C L 76 16 166/76 H 08/15/20 07:00 18 155/76 H 08/15/20 06:50 08/15/20 06:40 08/15/20 06:31 73 08/15/20 06:30 73 141/60 H 08/15/20 06:20 76 08/15/20 06:19 77 23 08/15/20 06:00 157/76 H 08/15/20 05:50 80 27 H 08/15/20 05:40 82 23 08/15/20 05:31 81 24 08/15/20 05:30 82 25 H 160/79 H 08/15/20 05:20 80 25 H 08/15/20 05:13 81 18 168/71 H 08/15/20 05:10 81 24 08/15/20 05:06 85 24 168/71 H 08/15/20 05:04 83 27 H 168/71 H Pulse Ox 08/15/20 16:20 08/15/20 16:00 08/15/20 15:40 08/15/20 15:20 08/15/20 15:00 08/15/20 14:40 08/15/20 14:20 08/15/20 14:00 08/15/20 13:40 08/15/20 13:32 08/15/20 11:06 94 08/15/20 09:00 08/15/20 08:29 96 08/15/20 07:00 93 08/15/20 06:50 93 08/15/20 06:40 94 08/15/20 06:31 93 08/15/20 06:30 93 08/15/20 06:20 08/15/20 06:19 08/15/20 06:00 08/15/20 05:50 95 08/15/20 05:40 96 08/15/20 05:31 97 08/15/20 05:30 88 L 08/15/20 05:20 98 08/15/20 05:13 95 08/15/20 05:10 96 08/15/20 05:06 93 08/15/20 05:04 Laboratory Results Laboratory Results - last 24 hr 08/15/20 08/15/20 08/15/20 05:18 05:18 05:18 WBC 16.60 H RBC 4.46 L Hgb 13.0 L Hct 41.8 L MCV 93.7 MCH 29.1 MCHC 31.1 L RDW Std Deviation 56.3 H RDW Coeff of Atif 16.4 H Plt Count 365 MPV 10.2 Immature Gran % (Auto) 0.5 Neut % (Auto) 84.0 Lymph % (Auto) 9.8 [place] % (Auto) 4.7 Eos % (Auto) 0.8 Baso % (Auto) 0.2 Neut # (Auto) 13.96 H Lymph # (Auto) 1.62 [place] # (Auto) 0.78 H Eos # (Auto) 0.13 Baso # (Auto) 0.03 Immature Gran # (Auto) 0.08 H PT 14.2 H INR 1.4 H Sodium 137 Potassium 4.2 Chloride 101 Carbon Dioxide 29 Anion Gap 7.0 BUN 59 H Creatinine 4.73 H* Est Cr Clr Drug Dosing 20.1 Est GFR ( Amer) 13.6 Est GFR (Non-Af Amer) 11.8 BUN/Creatinine Ratio 12.4 Glucose 93 POC Glucose Calcium 9.1 Total Bilirubin 0.3 Direct Bilirubin < 0.1 AST 19 ALT 20 Alkaline Phosphatase 53 Total Creatine Kinase 140 Troponin I < 0.015 Total Protein 9.1 H Albumin 3.3 L Lipase 728 H Urine Color Urine Appearance Urine pH Ur Specific [place] Urine Protein Urine Glucose (UA) Urine Ketones Urine Blood Urine Nitrite Urine Bilirubin Urine Urobilinogen Ur Leukocyte Esterase Urine WBC (Auto) Urine RBC (Auto) U Hyaline Cast (Auto) U Epithel Cells (Auto) Urine Bacteria (Auto) Granular Casts Urine Yeast Nasal Screen MRSA (PCR) COVID-19 Eval Order SARS-CoV-2 (PCR) Hep Bs Antigen Hep Bs Antibody Hep Bs Antibody, Quant Influenza Type A (PCR) Influenza Type B (PCR) RSV (RT-PCR) 08/15/20 08/15/20 08/15/20 05:18 05:18 05:18 WBC RBC Hgb Hct MCV MCH MCHC RDW Std Deviation RDW Coeff of Atif Plt Count MPV Immature Gran % (Auto) Neut % (Auto) Lymph % (Auto) [place] % (Auto) Eos % (Auto) Baso % (Auto) Neut # (Auto) Lymph # (Auto) [place] # (Auto) Eos # (Auto) Baso # (Auto) Immature Gran # (Auto) PT INR Sodium Potassium Chloride Carbon Dioxide Anion Gap BUN Creatinine Est Cr Clr Drug Dosing Est GFR ( Amer) Est GFR (Non-Af Amer) BUN/Creatinine Ratio Glucose POC Glucose Calcium Total Bilirubin Direct Bilirubin AST ALT Alkaline Phosphatase Total Creatine Kinase Troponin I Total Protein Albumin Lipase Urine Color Yellow Urine Appearance Cloudy A Urine pH 5.0 Ur Specific [place] 1.019 Urine Protein 1+ H Urine Glucose (UA) Negative Urine Ketones Negative Urine Blood Trace H Urine Nitrite Negative Urine Bilirubin Negative Urine Urobilinogen Negative Ur Leukocyte Esterase Negative Urine WBC (Auto) 1-5 Urine RBC (Auto) 0-4 U Hyaline Cast (Auto) 1-5 U Epithel Cells (Auto) 20-30 H Urine Bacteria (Auto) Negative Granular Casts 1-5 H Urine Yeast Not Reportable Nasal Screen MRSA (PCR) COVID-19 Eval Order [facility]FluRsv at [facility] SARS-CoV-2 (PCR) NEGATIVE Hep Bs Antigen Hep Bs Antibody Hep Bs Antibody, Quant Influenza Type A (PCR) Negative Influenza Type B (PCR) Negative RSV (RT-PCR) Negative 08/15/20 08/15/20 08/15/20 05:18 08:49 11:14 WBC RBC Hgb Hct MCV MCH MCHC RDW Std Deviation RDW Coeff of Atif Plt Count MPV Immature Gran % (Auto) Neut % (Auto) Lymph % (Auto) [place] % (Auto) Eos % (Auto) Baso % (Auto) Neut # (Auto) Lymph # (Auto) [place] # (Auto) Eos # (Auto) Baso # (Auto) Immature Gran # (Auto) PT INR Sodium Potassium Chloride Carbon Dioxide Anion Gap BUN Creatinine Est Cr Clr Drug Dosing Est GFR ( Amer) Est GFR (Non-Af Amer) BUN/Creatinine Ratio Glucose POC Glucose 84 163 H Calcium Total Bilirubin Direct Bilirubin AST ALT Alkaline Phosphatase Total Creatine Kinase Troponin I Total Protein Albumin Lipase Urine Color Urine Appearance Urine pH Ur Specific [place] Urine Protein Urine Glucose (UA) Urine Ketones Urine Blood Urine Nitrite Urine Bilirubin Urine Urobilinogen Ur Leukocyte Esterase Urine WBC (Auto) Urine RBC (Auto) U Hyaline Cast (Auto) U Epithel Cells (Auto) Urine Bacteria (Auto) Granular Casts Urine Yeast Nasal Screen MRSA (PCR) COVID-19 Eval Order SARS-CoV-2 (PCR) Hep Bs Antigen Neg Hep Bs Antibody Immune Hep Bs Antibody, Quant 14.55 Influenza Type A (PCR) Influenza Type B (PCR) RSV (RT-PCR) 08/15/20 Unknown WBC RBC Hgb Hct MCV MCH MCHC RDW Std Deviation RDW Coeff of Atif Plt Count MPV Immature Gran % (Auto) Neut % (Auto) Lymph % (Auto) [place] % (Auto) Eos % (Auto) Baso % (Auto) Neut # (Auto) Lymph # (Auto) [place] # (Auto) Eos # (Auto) Baso # (Auto) Immature Gran # (Auto) PT INR Sodium Potassium Chloride Carbon Dioxide Anion Gap BUN Creatinine Est Cr Clr Drug Dosing Est GFR ( Amer) Est GFR (Non-Af Amer) BUN/Creatinine Ratio Glucose POC Glucose Calcium Total Bilirubin Direct Bilirubin AST ALT Alkaline Phosphatase Total Creatine Kinase Troponin I Total Protein Albumin Lipase Urine Color Urine Appearance Urine pH Ur Specific [place] Urine Protein Urine Glucose (UA) Urine Ketones Urine Blood Urine Nitrite Urine Bilirubin Urine Urobilinogen Ur Leukocyte Esterase Urine WBC (Auto) Urine RBC (Auto) U Hyaline Cast (Auto) U Epithel Cells (Auto) Urine Bacteria (Auto) Granular Casts Urine Yeast Nasal Screen MRSA (PCR) Negative COVID-19 Eval Order SARS-CoV-2 (PCR) Hep Bs Antigen Hep Bs Antibody Hep Bs Antibody, Quant Influenza Type A (PCR) Influenza Type B (PCR) RSV (RT-PCR) Diagnostic Findings XR chest 1V portable: Improving bilateral pulmonary airspace opacities CT head: no acute intracranial findings Left knee x-ray: no fractures or dislocations Medications Administered Current Inpatient Medications Acetaminophen (Acetaminophen 325 Mg Tab) 650 mg PO Q4H PRN PRN Reason: Pain or Fever Stop: 09/14/20 08:46 Amlodipine Besylate (Amlodipine Besylate 5 Mg Tab) 5 mg PO QAM [facility] Stop: 09/14/20 08:59 Last Admin: 08/15/20 10:14 Dose: 5 mg Documented by: Aspirin (Aspirin 81 Mg Ectab) 81 mg PO DAILY ANTONY Stop: 09/14/20 08:59 Last Admin: 08/15/20 10:13 Dose: 81 mg Documented by: Atorvastatin Calcium (Atorvastatin 40 Mg Tab) 40 mg PO PM ANTONY Stop: 09/14/20 20:59 Carvedilol (Carvedilol 3.125 Mg Tab) 3.125 mg PO BID ANTONY Stop: 09/14/20 08:59 Last Admin: 08/15/20 10:13 Dose: 3.125 mg Documented by: Clonidine HCl (Clonidine Hcl 0.1 Mg Tab) 0.2 mg PO DAILY ANTONY Stop: 09/14/20 09:29 Last Admin: 08/15/20 10:14 Dose: 0.2 mg Documented by: Clonidine HCl (Clonidine Hcl 0.1 Mg Tab) 0.1 mg PO QPM ANTONY Stop: 09/14/20 20:59 Clopidogrel Bisulfate (Clopidogrel Bisulfate 75 Mg Tab) 75 mg PO DAILY ANTONY Stop: 09/14/20 08:59 Last Admin: 08/15/20 10:14 Dose: 75 mg Documented by: Dextrose (Dextrose 50% 50 Ml Syringe) 25 - 50 ml IV UD PRN; Protocol PRN Reason: Hypoglycemia Protocol Stop: 09/14/20 11:59 Famotidine (Famotidine 20 Mg Tab) 20 mg PO DAILY ANTONY Stop: 09/14/20 08:59 Last Admin: 08/15/20 10:14 Dose: 20 mg Documented by: Furosemide (Furosemide 80 Mg Tab) 80 mg PO [id number] ANTONY Stop: 09/14/20 08:59 Last Admin: 08/15/20 10:13 Dose: 80 mg Documented by: Glucagon (Glucagon For Inj 1 Mg Vial) 1 mg IM UD PRN; Protocol PRN Reason: Hypoglycemia Protocol Stop: 09/14/20 11:59 Glucose (Glucose 40% Gel 15 Gm Tube) 15 - 30 gm PO UD PRN; Protocol PRN Reason: Hypoglycemia Protocol Stop: 09/14/20 11:59 Glucose (Glucose 10 Tabs/Tube) 4 - 8 tabs PO UD PRN; Protocol PRN Reason: Hypoglycemia Protocol Stop: 09/14/20 11:59 Heparin Sodium (Porcine) (Heparin Sod 5,000 Unit/0.5 Ml Vial) 7,500 units SQ Q8 ANTONY Stop: 09/14/20 13:59 Last Admin: 08/15/20 11:47 Dose: 7,500 units Documented by: Insulin Aspart (Insulin Aspart 100 Units/Ml 3 Ml Pen) 0 units SC ACHS ANOTNY Stop: 09/14/20 11:29 Last Admin: 08/15/20 11:47 Dose: 7 units Documented by: Insulin Glargine (Insulin Glargine Solostar 100 Units/Ml 3 Ml Pen) 30 units SQ BID [facility] Stop: 09/14/20 11:29 Last Admin: 08/15/20 11:46 Dose: 30 units Documented by: Miscellaneous (Carbohydrates For Hypoglycemia ) 15 - 30 gm PO UD PRN PRN Reason: Hypoglycemia Treatment Stop: 09/14/20 11:59 Ondansetron HCl (Ondansetron Inj 2 Mg/Ml 2 Ml Vial) 4 mg IV Q6H PRN PRN Reason: Nausea Stop: 09/14/20 08:46 Sevelamer HCl (Sevelamer Hcl 800 Mg Tablet) 800 mg PO TIDM [facility] Stop: 09/14/20 08:46 Last Admin: 08/15/20 11:47 Dose: 800 mg Documented by: Tamsulosin HCl (Tamsulosin Hcl 0.4 Mg Cap) 0.4 mg PO QAM [facility] Stop: 09/14/20 08:59 Last Admin: 08/15/20 10:13 Dose: 0.4 mg Documented by: Vitamin B Complex/Folic Acid (Nephrocaps) 1 cap PO QPM [facility] Stop: 09/14/20 20:59 Code Status & VTE Plan VTE Prophylaxis Plan VTE Prophylaxis will be ordered: Yes PG Care Time/CCT Total # of Minutes Spent Total Time Spent with Patient: Total time spent is greater than 50% in coordination of care (as documented) at patient's floor/unit and/or counseling patient: Coding Level of Care Code 29813 OBS Care - Level 3 Diagnoses Syncope R55 End-stage renal disease on hemodialysis N18.6; Z99.2 Paroxysmal atrial flutter I48.92 (HFpEF) heart failure with preserved ejection fraction I50.30 CAD (coronary artery disease) I25.119 Coronary Disease-Associated Artery/Lesion type: [place] artery [place] vs. transplanted heart: rosebud heart Associated angina: with unspecified angina Diabetes mellitus type 2 in obese E11.69; E66.9 BPH (benign prostatic hyperplasia) N40.0 Lower urinary tract symptom presence: symptoms absent Depression F33.9 Depression Type: major depressive disorder Major depression recurrence: recurrent Active/Remission status: remission status unspecified (1) BPH (benign prostatic hyperplasia) Lower urinary tract symptom presence: symptoms absent Qualified Code(s): N40.0 - Benign prostatic hyperplasia without lower urinary tract symptoms (2) Depression Depression Type: major depressive disorder Major depression recurrence: recurrent Active/Remission status: remission status unspecified Qualified Code(s): F33.9 - Major depressive disorder, recurrent, unspecified (3) CAD (coronary artery disease) Coronary Disease-Associated Artery/Lesion type: [place] artery [place] vs. transplanted heart: rosebud heart Associated angina: with unspecified angina Qualified Code(s): I25.119 - Atherosclerotic heart disease of rosebud coronary artery with unspecified angina pectoris
[2020-08-15] MEDS: ATORVASTATIN 40 MG TAB PO SCH (21:18)
[2020-08-15] MEDS: NEPHROCAPS PO SCH (21:19)
[2020-08-16] MEDS: HEPARIN SOD 5,000 UNIT/0.5 ML VIAL SQ SCH ×3 (05:57→22:23)
[2020-08-16 06:50] LABS: Hemoglobin 12.1 g/dL (14.0-18.0); Mean Corpuscular Hemoglobin 29.7 pg (25-34); Mean Corpuscular Hgb Conc 31.8 g/dL (32-36); Mean Corpuscular Volume 93.4 fL (80-100); Mean Platelet Volume 10.3 fL (7.4-10.4); Platelet Count 399 K/uL (130-400); RDW Coefficient of Variation 16.6 % (11.5-14.5); RDW Standard Deviation 57.1 fL (36.4-46.3); Red Blood Count 4.07 M/uL (4.7-6.1); White Blood Count 12.25 K/uL (4.8-10.8)
[2020-08-16 07:22] LABS: BUN Creatinine Ratio 10.2 (10-20); Calcium 9.2 mg/dl (8.5-10.1); Creatinine Clr Calc Pharmacy 22.7 ml/min; Est GFR (African American) 16.1; Est GFR (Non-African American) 13.9; Potassium 4.2 mmol/L (3.5-5.1)
[2020-08-16] MEDS: SEVELAMER HCL 800 MG TABLET PO SCH ×3 (08:22→16:58)
[2020-08-16] MEDS: cloNIDine HCL 0.1 MG TAB PO SCH ×2 (08:22→20:23)
[2020-08-16] MEDS: TAMSULOSIN HCL 0.4 MG CAP PO SCH (08:23)
[2020-08-16] MEDS: FUROSEMIDE 80 MG TAB PO SCH ×2 (08:23→16:58)
[2020-08-16] MEDS: INSULIN GLARGINE SOLOSTAR 100 UNITS/ML 3 ML PEN SQ SCH ×2 (08:23→20:24)
[2020-08-16] MEDS: CLOPIDOGREL BISULFATE 75 MG TAB PO SCH (08:23)
[2020-08-16] MEDS: ASPIRIN 81 MG ECTAB PO SCH (08:23)
[2020-08-16] MEDS: carvediloL 3.125 MG TAB PO SCH ×2 (08:23→20:23)
[2020-08-16] MEDS: FAMOTIDINE 20 MG TAB PO SCH (08:23)
[2020-08-16] MEDS: amLODIPine BESYLATE 5 MG TAB PO SCH (08:23)
[2020-08-16] MEDS: INSULIN ASPART 100 UNITS/ML 3 ML PEN SC SCH ×4 (08:25→20:25)
--- NOTE | 2020-08-16 09:41 | Nephrology Progress Note ---
Date of Service August 16, 2020 Assessment & Plan (1) End-stage renal disease on hemodialysis: * Volume status and electrolyte balance are acceptable. No acute indication for HD this am * Recommend HD/diabetic diet * Protect AVF * If discharge is anticipated, please have patient resume his regular HD outpatient TTS schedule at [facility] ([phone]) (2) Syncope: * Possible micturition syncope * Currently hemodynamically stable * Advise monitoring cardiac rhythm. Troponin was wnl * Recommend checking orthostatic vitals and ambulate w/ PT (3) Diabetes mellitus type 2 in obese: (4) Sleep apnea: Admission and Anticipated Discharge Date Admission Date: August 15, 2020 Subjective Mr. Solorio was seen & examined in his hospital room this morning. He was dialyzed yesterday for 3 L UF. There were no complications. Mr. Solorio reports that he is breathing comfortably on RA. He has had no further syncopal or near syncopal events. He is awaiting the results of an echocardiogram that was completed this am. Review of Systems Constitutional: no fever Eyes: no problem reported Ear, Nose, Mouth, Throat: no problem reported Respiratory: no dyspnea Cardiovascular: no chest pain, no palpitations and no edema Gastrointestinal: no abdominal pain Musculoskeletal: no back pain Integumentary: no rash Neurologic: no falls, no dizziness and no confusion Physical Exam Constitutional: + overweight (chronically ill appearing) Eyes: PERRL, conjunctivae normal, anicteric sclerae ENMT: external ear and nose normal, oropharynx normal Neck: trachea midline, no thyromegaly Respiratory: normal respiratory effort, lungs clear to auscultation Cardiovascular: Rate/Rhythm: regular rhythm Extremities: + AV fistula (+ bruit); no edema Gastrointestinal (Abdomen): normal bowel sounds, soft, nontender, no hepatosplenomegaly Musculoskeletal: Extremities: no cyanosis Skin: no rashes, warm and dry Neurologic: awake; not confused Results & Data ([facility]) Vital Signs (Past 12 Hours) Vital Signs Temp Pulse Pulse Resp BP Pulse Ox 08/16/20 08:31 92 08/16/20 08:17 36.7 C 79 18 133/76 89 L 08/16/20 07:01 78 08/16/20 04:00 36.7 C 81 18 134/79 93 08/16/20 03:36 86 08/15/20 23:19 37.0 C 82 18 142/78 H 91 Laboratory Tests 08/15/20 08/16/20 08/16/20 05:18 06:23 06:23 WBC 12.25 H Hgb 12.1 L Hct 38.0 L Plt Count 399 Sodium 135 L Potassium 4.2 Chloride 97 L Carbon Dioxide 30 BUN 42 H Creatinine 4.13 H D Glucose 89 Total Creatine Kinase 140 Troponin I < 0.015 PG Care Time/CCT Total # of Minutes Spent Total Time Spent with Patient: Total time spent is greater than 50% in coordination of care (as documented) at patient's floor/unit and/or counseling patient: Coding Level of Care Code 51844 Subseq Hosp Care Lvl 3 Diagnoses End-stage renal disease on hemodialysis N18.6; Z99.2 Syncope R55 Diabetes mellitus type 2 in obese E11.69; E66.9 Sleep apnea G47.30 Sleep apnea type: unspecified type (1) Sleep apnea Sleep apnea type: unspecified type Qualified Code(s): G47.30 - Sleep apnea, unspecified
--- NOTE | 2020-08-16 12:38 | XCELERA ---
[id number] [id number]
--- NOTE | 2020-08-16 14:28 | Hospitalist Progress Note ---
Date of Service August 16, 2020 Assessment & Plan (1) Syncope: syncope and collapse, happened at 11pm on on 08/14 unsure what caused it, he had no warning symptoms, no chest pain, no dyspnea, no light headed, no nausea, no diaphoresis he came to quickly, on the floor of his bathroom he hit his left knee hard on the floor but did not his his head vitals stable, normal CXR and CT head no changes on EKG, troponin negative echo with normal EF, no valve disease no events on tele no neurological deficits to suggest CVA still awaiting PT/OT, plan to discharge to home tomorrow will change to full admission (2) End-stage renal disease on hemodialysis: consulted Dr. Jackson received HD on 08/15, next session is 08/18 (3) Paroxysmal atrial flutter: h/o such, monitor on tele on Coreg, no anticoagulation (4) (HFpEF) heart failure with preserved ejection fraction: examines euvolemic, got HD with UF on 08/15 continue Lasix, he still makes urine continue Coreg (5) CAD (coronary artery disease): h/o recent CABG no current chest pain, EKG normal, continue Coreg, Lipitor, aspirin, Plavix (6) Diabetes mellitus type 2 in obese: Jebtus Novolog SS, diabetic diet monitor for hypoglycemia, no issues (7) BPH (benign prostatic hyperplasia): (8) Depression: Admission and Anticipated Discharge Date Admission Date: August 15, 2020 Subjective patient feeling a little better no dizziness, no falls, no loss of consciousness echocardiogram with preserved EF, no valve disease no issues on tele today he is eating well, no chest pain, no dyspnea plan to go home tomorrow morning, needs PT/OT evaluations today, keep watching on tele Review of Systems Review of Systems: All systems reviewed & are unremarkable except as noted in Subjective Physical Exam Constitutional: WD/WN, vitals as above + obese; no acute distress Neck: trachea midline, no thyromegaly Respiratory: normal respiratory effort, lungs clear to auscultation Cardiovascular: RRR, no murmur, no edema Extremities: + AV fistula Gastrointestinal (Abdomen): normal bowel sounds, soft, nontender, no hepatosplenomegaly Musculoskeletal: no cyanosis or clubbing, extremities motor strength 5/5 Skin: no rashes, warm and dry Neurologic: patellar DTR's 2+ bilat, sensation intact and PERRL, EOMI, accommodation nl, no face palsy, no dysarthria Psychiatric: A+Ox3, euthymic affect Lymphatic: no cervical or axillary lymphadenopathy Results & Data Results & Data ([facility]) Vital Signs (Past 12 Hours) Vital Signs Temp Pulse Pulse Resp BP Pulse Ox 08/16/20 12:09 36.3 C L 70 19 118/70 95 08/16/20 08:31 92 08/16/20 08:17 36.7 C 79 18 133/76 89 L 08/16/20 07:01 78 08/16/20 04:00 36.7 C 81 18 134/79 93 08/16/20 03:36 86 Laboratory Results Laboratory Results - last 24 hr 08/15/20 08/15/20 08/16/20 17:17 20:08 06:23 WBC 12.25 H RBC 4.07 L Hgb 12.1 L Hct 38.0 L MCV 93.4 MCH 29.7 MCHC 31.8 L RDW Std Deviation 57.1 H RDW Coeff of Atif 16.6 H Plt Count 399 MPV 10.3 Sodium Potassium Chloride Carbon Dioxide Anion Gap BUN Creatinine Est Cr Clr Drug Dosing Est GFR ( Amer) Est GFR (Non-Af Amer) BUN/Creatinine Ratio Glucose POC Glucose 91 135 H Calcium 08/16/20 08/16/20 08/16/20 06:23 08:25 11:40 WBC RBC Hgb Hct MCV MCH MCHC RDW Std Deviation RDW Coeff of Atif Plt Count MPV Sodium 135 L Potassium 4.2 Chloride 97 L Carbon Dioxide 30 Anion Gap 7.0 BUN 42 H Creatinine 4.13 H D Est Cr Clr Drug Dosing 22.7 Est GFR ( Amer) 16.1 Est GFR (Non-Af Amer) 13.9 BUN/Creatinine Ratio 10.2 Glucose 89 POC Glucose 212 H 148 H Calcium 9.2 Medications Administered Current Inpatient Medications Acetaminophen (Acetaminophen 325 Mg Tab) 650 mg PO Q4H PRN PRN Reason: Pain or Fever Stop: 09/14/20 08:46 Amlodipine Besylate (Amlodipine Besylate 5 Mg Tab) 5 mg PO QAM [facility] Stop: 09/14/20 08:59 Last Admin: 08/16/20 08:23 Dose: 5 mg Documented by: Aspirin (Aspirin 81 Mg Ectab) 81 mg PO DAILY ANTONY Stop: 09/14/20 08:59 Last Admin: 08/16/20 08:23 Dose: 81 mg Documented by: Atorvastatin Calcium (Atorvastatin 40 Mg Tab) 40 mg PO PM ANTONY Stop: 09/14/20 20:59 Last Admin: 08/15/20 21:18 Dose: 40 mg Documented by: Carvedilol (Carvedilol 3.125 Mg Tab) 3.125 mg PO BID ANTONY Stop: 09/14/20 08:59 Last Admin: 08/16/20 08:23 Dose: 3.125 mg Documented by: Clonidine HCl (Clonidine Hcl 0.1 Mg Tab) 0.2 mg PO DAILY ANTONY Stop: 09/14/20 09:29 Last Admin: 08/16/20 08:22 Dose: 0.2 mg Documented by: Clonidine HCl (Clonidine Hcl 0.1 Mg Tab) 0.1 mg PO QPM ANTONY Stop: 09/14/20 20:59 Last Admin: 08/15/20 21:19 Dose: 0.1 mg Documented by: Clopidogrel Bisulfate (Clopidogrel Bisulfate 75 Mg Tab) 75 mg PO DAILY ANTONY Stop: 09/14/20 08:59 Last Admin: 08/16/20 08:23 Dose: 75 mg Documented by: Dextrose (Dextrose 50% 50 Ml Syringe) 25 - 50 ml IV UD PRN; Protocol PRN Reason: Hypoglycemia Protocol Stop: 09/14/20 11:59 Famotidine (Famotidine 20 Mg Tab) 20 mg PO DAILY ANTONY Stop: 09/14/20 08:59 Last Admin: 08/16/20 08:23 Dose: 20 mg Documented by: Furosemide (Furosemide 80 Mg Tab) 80 mg PO BID17 ANTONY Stop: 09/14/20 08:59 Last Admin: 08/16/20 08:23 Dose: 80 mg Documented by: Glucagon (Glucagon For Inj 1 Mg Vial) 1 mg IM UD PRN; Protocol PRN Reason: Hypoglycemia Protocol Stop: 09/14/20 11:59 Glucose (Glucose 40% Gel 15 Gm Tube) 15 - 30 gm PO UD PRN; Protocol PRN Reason: Hypoglycemia Protocol Stop: 09/14/20 11:59 Glucose (Glucose 10 Tabs/Tube) 4 - 8 tabs PO UD PRN; Protocol PRN Reason: Hypoglycemia Protocol Stop: 09/14/20 11:59 Heparin Sodium (Porcine) (Heparin Sod 5,000 Unit/0.5 Ml Vial) 7,500 units SQ Q8 ANTONY Stop: 09/14/20 13:59 Last Admin: 08/16/20 13:58 Dose: 7,500 units Documented by: Insulin Aspart (Insulin Aspart 100 Units/Ml 3 Ml Pen) 0 units SC ACHS ANTONY Stop: 09/14/20 11:29 Last Admin: 08/16/20 11:55 Dose: 7 units Documented by: Insulin Glargine (Insulin Glargine Solostar 100 Units/Ml 3 Ml Pen) 30 units SQ BID ANTONY Stop: 09/14/20 11:29 Last Admin: 08/16/20 08:23 Dose: 30 units Documented by: Miscellaneous (Carbohydrates For Hypoglycemia ) 15 - 30 gm PO UD PRN PRN Reason: Hypoglycemia Treatment Stop: 09/14/20 11:59 Ondansetron HCl (Ondansetron Inj 2 Mg/Ml 2 Ml Vial) 4 mg IV Q6H PRN PRN Reason: Nausea Stop: 09/14/20 08:46 Sevelamer HCl (Sevelamer Hcl 800 Mg Tablet) 800 mg PO TIDM ANTONY Stop: 09/14/20 08:46 Last Admin: 08/16/20 11:55 Dose: 800 mg Documented by: Tamsulosin HCl (Tamsulosin Hcl 0.4 Mg Cap) 0.4 mg PO QAM ANTONY Stop: 09/14/20 08:59 Last Admin: 08/16/20 08:23 Dose: 0.4 mg Documented by: Vitamin B Complex/Folic Acid (Nephrocaps) 1 cap PO QPM ANTONY Stop: 09/14/20 20:59 Last Admin: 08/15/20 21:19 Dose: 1 cap Documented by: PG Care Time/CCT Total # of Minutes Spent Total Time Spent with Patient: Total time spent is greater than 50% in coordination of care (as documented) at patient's floor/unit and/or counseling patient: Coding Level of Care Code 62580 Subseq Hosp Care Lvl 2 Diagnoses Syncope R55 End-stage renal disease on hemodialysis N18.6; Z99.2 Paroxysmal atrial flutter I48.92 (HFpEF) heart failure with preserved ejection fraction I50.30 CAD (coronary artery disease) I25.119 Coronary Disease-Associated Artery/Lesion type: [place] artery [place] vs. transplanted heart: [place] heart Associated angina: with unspecified angina Diabetes mellitus type 2 in obese E11.69; E66.9 BPH (benign prostatic hyperplasia) N40.0 Lower urinary tract symptom presence: symptoms absent Depression F33.9 Depression Type: major depressive disorder Major depression recurrence: recurrent Active/Remission status: remission status unspecified (1) CAD (coronary artery disease) Coronary Disease-Associated Artery/Lesion type: [place] artery [place] vs. transplanted heart: [place] heart Associated angina: with unspecified angina Qualified Code(s): I25.119 - Atherosclerotic heart disease of [place] coronary artery with unspecified angina pectoris (2) BPH (benign prostatic hyperplasia) Lower urinary tract symptom presence: symptoms absent Qualified Code(s): N40.0 - Benign prostatic hyperplasia without lower urinary tract symptoms (3) Depression Depression Type: major depressive disorder Major depression recurrence: recurrent Active/Remission status: remission status unspecified Qualified Code(s): F33.9 - Major depressive disorder, recurrent, unspecified
[2020-08-16] MEDS: ACETAMINOPHEN 325 MG TAB PO PRN (19:28)
[2020-08-16] MEDS: ATORVASTATIN 40 MG TAB PO SCH (20:23)
[2020-08-16] MEDS: NEPHROCAPS PO SCH (20:24)
[2020-08-17] MEDS: HEPARIN SOD 5,000 UNIT/0.5 ML VIAL SQ SCH ×3 (05:39→20:38)
[2020-08-17 05:49] LABS: Hematocrit (blood only) 37.8 % (42-52); Mean Corpuscular Hemoglobin 29.3 pg (25-34); Mean Corpuscular Hgb Conc 31.7 g/dL (32-36); Mean Corpuscular Volume 92.2 fL (80-100); Mean Platelet Volume 9.8 fL (7.4-10.4); Platelet Count 349 K/uL (130-400); RDW Coefficient of Variation 16.3 % (11.5-14.5); RDW Standard Deviation 55.4 fL (36.4-46.3); White Blood Count 10.43 K/uL (4.8-10.8)
[2020-08-17 06:40] LABS: BUN Creatinine Ratio 12.5 (10-20); Calcium 8.9 mg/dl (8.5-10.1); Creatinine Clr Calc Pharmacy 19.1 ml/min; Est GFR (African American) 12.9; Est GFR (Non-African American) 11.2; Potassium 4.2 mmol/L (3.5-5.1)
[2020-08-17] MEDS: TAMSULOSIN HCL 0.4 MG CAP PO SCH (07:52)
[2020-08-17] MEDS: SEVELAMER HCL 800 MG TABLET PO SCH ×3 (07:53→17:13)
[2020-08-17] MEDS: amLODIPine BESYLATE 5 MG TAB PO SCH (07:54)
[2020-08-17] MEDS: CLOPIDOGREL BISULFATE 75 MG TAB PO SCH (07:54)
[2020-08-17] MEDS: FUROSEMIDE 80 MG TAB PO SCH ×2 (07:54→17:13)
[2020-08-17] MEDS: FAMOTIDINE 20 MG TAB PO SCH (07:54)
[2020-08-17] MEDS: ASPIRIN 81 MG ECTAB PO SCH (07:55)
[2020-08-17] MEDS: carvediloL 3.125 MG TAB PO SCH (07:55)
[2020-08-17] MEDS: cloNIDine HCL 0.1 MG TAB PO SCH ×2 (07:55→20:29)
[2020-08-17] MEDS: INSULIN GLARGINE SOLOSTAR 100 UNITS/ML 3 ML PEN SQ SCH ×2 (07:58→20:32)
[2020-08-17] MEDS: INSULIN ASPART 100 UNITS/ML 3 ML PEN SC SCH ×4 (07:58→20:30)
[2020-08-17] MEDS: ACETAMINOPHEN 325 MG TAB PO PRN (08:03)
--- NOTE | 2020-08-17 08:11 | Hospitalist Progress Note ---
Date of Service August 17, 2020 Assessment & Plan (1) Syncope: syncope and collapse, happened at 11pm on on 08/14 Patient had no postictal phase definitely not directly related to post micturition. With the loop recorder in place recent revascularization of his heart and recent A. fib recurrence concern for arrhythmogenic syncope. knee x ray negative for fracture vitals stable, normal CXR and CT head EKG shows atrial fibrillation rapid ventricular response improved with carvedilol dosing increased Will have cardiology evaluation interrogate loop recorder consideration for anticoagulation echo with normal EF, no valve disease no events on tele no neurological deficits to suggest CVA PT/OT, plan to discharge to home if does well with PT OT (2) End-stage renal disease on hemodialysis: consulted Dr. Jackson received HD on 08/15, next session is 08/18 (3) Paroxysmal atrial flutter: Did have recurrence on Coreg, additional dose of 3.25 given increased nighttime dose of 6.25, prehospital was not on anticoagulation will confer with cardiology regarding starting anticoagulation (4) (HFpEF) heart failure with preserved ejection fraction: examines euvolemic, got HD with UF on 08/15 continue Lasix, he still makes urine continue Coreg Does have some mild JVD but this is a predialysis day (5) CAD (coronary artery disease): h/o recent CABG no current chest pain, EKG normal, continue Coreg, Lipitor, aspirin, Plavix (6) Diabetes mellitus type 2 in obese: Lantus, Novolog SS, diabetic diet monitor for hypoglycemia, no issues (7) BPH (benign prostatic hyperplasia): (8) Depression: Admission and Anticipated Discharge Date Admission Date: August 16, 2020 Subjective Patient was seen in his room. He is asymptomatic. He had an episode of atrial fibrillation rapid ventricular response in the later morning hours. Patient was given additional dose of carvedilol which helped. The patient is not anticoagulated. The patient has a loop recorder in place according to him. Patient states he cannot sense his palpitations in any way. He does not believe he had any preceding symptoms prior to the syncopal event. And may or may not have been related to post micturition. Patient states that although he felt that he may have taken more or less Coreg because towards the end of his prescriptions the pills in the bottle disintegrate somewhat and is not sure the exact dosing he is getting. There is a cardiology consult in place. He will undergo dialysis on 08/18/2020 Review of Systems Review of Systems: No real distress and fatigue no headache, blurry or double vision no speech or swallowing issues no chest pain, pressure or palpitations no shortness of breath, cough or wheezes no abdominal pain, nausea or vomiting, diarrhea or constipation no dysuria, hematuria or frequency no focal joint pain or swelling no back pain, CVA tenderness or radicular pain no bruising, bleeding or rashes no focal signs of weakness or numbness or altered sensation no complaints of anxiety or depression.. Physical Exam Physical Exam: The patient appeared well nourished and normally developed. Vital signs as documented. Head exam is normocephalic atraumatic no scleral icterus Neck is with 2 cm JVD, thyromegaly, or carotid bruits. Lungs are clear to auscultation, decreased breath sounds at the bases Cardiac exam, irregular rapid rate Abdominal exam reveals normal bowel sounds, soft non tender, no masses Extremities are trace edematous bilaterally and both pedal pulses are present AV fistula in his right arm with palpable thrill Neurologic exam is alert and oriented, no focal loss of strength or sensation Skin is without bruises or rashes Psychologically is without concerns for anxiety or depression Results & Data Results & Data ([place]) Vital Signs (Past 12 Hours) Vital Signs Temp Pulse Pulse Resp BP Pulse Ox 08/17/20 07:38 73 08/17/20 07:26 97.9 F 75 18 146/68 H 93 08/17/20 03:20 97.9 F 71 20 137/73 95 08/16/20 22:00 97.5 F L 69 18 128/72 92 PG Care Time/CCT Total # of Minutes Spent Total Time Spent with Patient: Total time spent is greater than 50% in coordination of care (as documented) at patient's floor/unit and/or counseling patient: Coding Level of Care Code 82755 Subseq Hosp Care Lvl 3 Diagnoses Syncope R55 End-stage renal disease on hemodialysis N18.6; Z99.2 Paroxysmal atrial flutter I48.92 (HFpEF) heart failure with preserved ejection fraction I50.30 CAD (coronary artery disease) I25.119 Associated angina: with unspecified angina Coronary Disease-Associated Artery/Lesion type: [place] artery [place] vs. transplanted heart: [place] heart Diabetes mellitus type 2 in obese E11.69; E66.9 BPH (benign prostatic hyperplasia) N40.0 Lower urinary tract symptom presence: symptoms absent Depression F33.9 Active/Remission status: remission status unspecified Depression Type: major depressive disorder Major depression recurrence: recurrent (1) BPH (benign prostatic hyperplasia) Lower urinary tract symptom presence: symptoms absent Qualified Code(s): N40.0 - Benign prostatic hyperplasia without lower urinary tract symptoms (2) CAD (coronary artery disease) Associated angina: with unspecified angina Coronary Disease-Associated Artery/Lesion type: [place] artery [place] vs. transplanted heart: [place] heart Qualified Code(s): I25.119 - Atherosclerotic heart disease of [place] coronary artery with unspecified angina pectoris (3) Depression Active/Remission status: remission status unspecified Depression Type: major depressive disorder Major depression recurrence: recurrent Qualified Code(s): F33.9 - Major depressive disorder, recurrent, unspecified
--- NOTE | 2020-08-17 08:37 | Nephrology Progress Note ---
Date of Service August 17, 2020 Assessment & Plan (1) End-stage renal disease on hemodialysis: * Volume status and electrolyte balance are acceptable. No acute indication for HD this am * Recommend HD/diabetic diet * Protect AVF * If discharge is anticipated, please have patient resume his regular HD outpatient TTS schedule at [facility] ([phone]) (2) Syncope: * Possible micturition syncope * Currently hemodynamically stable * Advise monitoring cardiac rhythm. Troponin was wnl * Recommend checking orthostatic vitals and ambulate w/ PT (3) Diabetes mellitus type 2 in obese: (4) Sleep apnea: Admission and Anticipated Discharge Date Admission Date: August 16, 2020 Subjective Mr. Solorio was seen & examined in his hospital room this morning. He is breathing comfortably on RA. Mr. Solorio denies any further syncopal or near syncopal events. He notes that he may have taken too much carvedilol resulting in his syncopal event at home Review of Systems Constitutional: no fever Eyes: no problem reported Ear, Nose, Mouth, Throat: no problem reported Respiratory: no dyspnea Cardiovascular: no chest pain, no palpitations and no edema Gastrointestinal: no abdominal pain Musculoskeletal: no back pain Integumentary: no rash Neurologic: no falls, no dizziness and no confusion Physical Exam Constitutional: + overweight (chronically ill appearing) Eyes: PERRL, conjunctivae normal, anicteric sclerae ENMT: external ear and nose normal, oropharynx normal Neck: trachea midline, no thyromegaly Respiratory: normal respiratory effort, lungs clear to auscultation Cardiovascular: Rate/Rhythm: regular rhythm Extremities: + AV fistula (+ bruit); no edema Gastrointestinal (Abdomen): normal bowel sounds, soft, nontender, no hepatosplenomegaly Musculoskeletal: Extremities: no cyanosis Skin: no rashes, warm and dry Neurologic: awake; not confused Results & Data ([facility]) Vital Signs (Past 12 Hours) Vital Signs Temp Pulse Pulse Resp BP Pulse Ox 08/17/20 07:38 73 08/17/20 07:26 36.6 C 75 18 146/68 H 93 08/17/20 03:20 36.6 C 71 20 137/73 95 08/16/20 22:00 36.4 C L 69 18 128/72 92 Laboratory Tests 08/17/20 08/17/20 05:34 05:34 WBC 10.43 Hgb 12.0 L Hct 37.8 L Plt Count 349 Sodium 134 L Potassium 4.2 Chloride 98 Carbon Dioxide 28 BUN 62 H Creatinine 4.94 H* D Glucose 111 H Calcium 8.9 PG Care Time/CCT Total # of Minutes Spent Total Time Spent with Patient: Total time spent is greater than 50% in coordination of care (as documented) at patient's floor/unit and/or counseling patient: Coding Level of Care Code 37386 Subseq Hosp Care Lvl 3 Diagnoses End-stage renal disease on hemodialysis N18.6; Z99.2 Syncope R55 Diabetes mellitus type 2 in obese E11.69; E66.9 Sleep apnea G47.30 Sleep apnea type: unspecified type (1) Sleep apnea Sleep apnea type: unspecified type Qualified Code(s): G47.30 - Sleep apnea, unspecified
[2020-08-17] MEDS ORDERED: carvediloL 3.125 MG TAB PO ONE (09:15)
--- NOTE | 2020-08-17 09:41 | Electrocardiogram Report ---
Test Reason : Blood Pressure : / mmHG Vent. Rate : 111 BPM Atrial Rate : 088 BPM P-R Int : 000 ms QRS Dur : 110 ms QT Int : 376 ms P-R-T Axes : 000 077 013 degrees QTc Int : 511 ms Atrial fibrillation with rapid ventricular response Nonspecific T wave abnormality Inferior leads Minor Non-specific intra-ventricular conduction delay Abnormal ECG When compared with ECG of 15-AUG-2020 05:06, Atrial fibrillation has replaced Sinus rhythm HR has increased by 30 bpm Confirmed by Grover Garzon ([id number]) on 08/17/2020 9:41:15 AM Referred By: REFERRED SELF Confirmed By:Grover Garzon
--- NOTE | 2020-08-17 17:05 | Cardiology Consultation ---
Date of Consultation August 17, 2020 Assessment & Plan (1) Syncope and collapse: The cause of syncope is not clear, in the past he has had pauses with conversion of atrial fibrillation and that may well have happened. That should have been picked up by the recorder. It is not likely that rapid atrial fibrillation caused the syncope but tachycardia would be picked up by the monitor as well. He did not activate it so unless it was at a rate sufficient to trigger the device automatically we will not recorded. I will have his device interrogated. (2) Paroxysmal atrial fibrillation: He has paroxysmal atrial fibrillation, he was not on amiodarone to try to suppress that but he does not seem to be currently. He is on low-dose carvedilol to help with rate control. That may be an issue if he has bradycardia and we should see that on his device interrogation. (3) CAD (coronary artery disease): He has coronary artery disease with recent bypass surgery and prior stent placement. I do not think ischemia was a factor in his presentation. (4) Anticoagulant long-term use: Ideally he will be on an anticoagulant, he currently is on warfarin but that is not a good drug in general and especially with dialysis. Of note he has not been in the therapeutic INR range between 2 and 3 once in the last 8 measurements, usually low. I would recommend Eliquis but not can tell we determine whether he needs a pacemaker. History of Present Illness Reason for Consultation: Syncope Attending Physician: Prince Taylor MD History of Present Illness This is a 70-year-old male who I initially evaluated April 29, 2019 when he presented with a rapid heart rate in atrial flutter which terminated with a 5- second pause. He was asymptomatic during the arrhythmia although noted that his heart rate was high on his home blood pressure monitor. It appeared that he was in this arrhythmia for about 36 hours, he had a relative contraindication to anticoagulation being on dialysis and he was on aspirin and Plavix for a recent stent placement. I therefore implanted a loop recorder on April 29, 2019 to determine his atrial fibrillation burden and need for anticoagulation. 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 However he has been seen here multiple times since. He did follow-up with his loop recorder on December 2019. At that time he had several pauses of 3 to 7 seconds which were not symptomatic and 12 episodes of atrial fibrillation with longest being 6 hours and 34 minutes. All of this was evidently asymptomatic. He was started on amiodarone 100 mg daily to try to suppress the atrial arrhythmia to avoid anticoagulation. A stress test done December 25, 2019 demonstrated angina and an abnormal stress ECG at only 56% of his maximal predicted heart rate. He therefore underwent catheterization December 26, 2019. He had severe coronary artery disease and had successful PCI of a proximal LAD stenosis. He had another catheterization performed February 03, 2020 for symptoms but had no high risk lesions. He presented with symptoms again on May 21, 2020 where he was found to have severe coronary artery disease and recommendations were made for bypass surgery, he requested the [facility] in [place]. Ultimately however he went to [facility] for by pass surgery, shortly thereafter he tested positive for Covid prior to coming home from [place] on May 24, 2020. He presents now on August 15, 2020 after passing out and falling in the bathroom and laying on the floor overnight. He is on anticoagulation at this point, a CT head however was negative. His electrocardiogram on arrival demonstrates sinus rhythm at 81 bpm, however on August 17, 2020 he was in atrial fibrillation with a heart rate of 111 bpm. An echocardiogram done August 16, 2020 shows normal left ventricular size and function with ejection fraction of 55 to 60%. He describes going to the bathroom and losing consciousness and falling down, he did not have a sensation of palpitations but he never does. As far as I know his loop recorder has not been interrogated since he fell. He is on warfarin but his INR is low. He apparently is being evaluated for Eliquis. He went back into atrial fibrillation this morning but is unaware of the rhythm except that he was told that. Allergies Allergy/AdvReac Type Severity Reaction Status Date / Time ragweed pollen Allergy Mild [place] Verified 08/15/20 07:25 [place] Complexes Allergy Unknown rash from Verified 08/15/20 07:25 metal Home Medications Medication Instructions Recorded Confirmed Type albuterol sulfate 2 puff INHALATION Q6H PRN 01/06/19 08/15/20 History furosemide [Lasix] 80 mg PO BID 01/06/19 08/15/20 History insulin aspart U-100 [Novolog 10 unit SUBCUT AC 01/06/19 08/15/20 History PenFill U-100 Insulin] loratadine 10 mg PO DAILY PRN 01/06/19 08/15/20 History sertraline 50 mg PO QAM PRN 01/06/19 08/15/20 History tamsulosin 0.4 mg PO QAM 01/06/19 08/15/20 History Lantus Solostar U-100 Insulin 50 unit SUBCUT BID 03/06/19 08/15/20 History clopidogrel [Plavix] 75 mg PO DAILY 03/06/19 08/15/20 History ProRenal 1 tab PO QPM 09/26/19 08/15/20 History sevelamer carbonate [Renvela] 800 mg PO TIDM 09/26/19 08/15/20 History amlodipine 10 mg tablet 5 mg PO QAM tab 12/18/19 08/15/20 History clonidine HCl 0.1 mg tablet See Rx Instructions .ROUTE .COMPLEX 12/18/19 08/15/20 History atorvastatin 40 mg PO PM #30 tab 12/27/19 08/15/20 Rx nitroglycerin [Nitrostat] 0.4 mg SUBLINGUAL UD PRN #20 tab 12/27/19 08/15/20 Rx carvedilol [Coreg] 3.125 mg PO BID #0 tab 05/18/20 08/15/20 Rx aspirin 81 mg PO DAILY 05/21/20 08/15/20 History Patient History Medical History Anemia CAD (coronary artery disease) s/p LAD stents (2018 and 2019) Diabetes Dyslipidemia HTN (hypertension) Paroxysmal atrial fibrillation Pneumonia due to 2019 novel coronavirus Secondary hyperparathyroidism of renal origin Sinus node dysfunction Sleep apnea does not use CPAP Surgical History AV fistula History of loop recorder Implanted 05/01/2019 S/P CABG (coronary artery bypass graft) Family History Other Hypertension Denies family history of Kidney disease Social History Smoking Status: Never smoker Tobacco Type: Cigarettes Cigarettes Per Day: 10; Second Hand Exposure: No; Hx Alcohol Use: No Hx Substance Use: No Preferred Language: Polish Communication Ability: Effective Dish Network Installer Required: No Beliefs That Will Affect Care: None marital status: Single Current Living Situation: Alone How many Children do You have: 0 Other Information That Helps Us Care for You: No Feels Safe at Home: Yes Safety Concerns: Feels Safe At This Time Assistive Devices: None Physical Exam Physical Exam: Constitutional: Alert, cooperative and in no distress. HEENT: Unremarkable Neck: No jugular venous distention, carotid pulses are irregular but otherwise normal and equal bilaterally without bruits. Pulmonary: Clear to auscultation bilaterally. Cardiac: Irregular rhythm with no murmur, gallop or rub. Abdomen: Soft, nontender with normal bowel sounds. Extremities: No edema. Distal pulses intact. Neurologic: No focal findings. Gait was not tested. Skin: No rash, ecchymoses or petechiae. Results & Data ([facility]) Vital Signs (Past 12 Hours) Vital Signs Temp Pulse Pulse Pulse Resp BP Pulse Ox 08/17/20 15:01 36.8 C 76 18 130/69 92 08/17/20 11:12 36.7 C 100 H 20 126/79 91 08/17/20 09:48 36.7 C 88 18 135/71 08/17/20 07:38 73 08/17/20 07:26 36.6 C 75 18 146/68 H 93 Laboratory Results CBC 08/17/20 Range/Units 05:34 WBC 10.43 (4.8-10.8) K/uL RBC 4.10 L (4.7-6.1) M/uL Hgb 12.0 L (14.0-18.0) g/dL Hct 37.8 L (42-52) % Plt Count 349 (130-400) K/uL Comprehensive Metabolic Panel 08/17/20 Range/Units 05:34 Sodium 134 L (136-145) mmol/L Potassium 4.2 (3.5-5.1) mmol/L Chloride 98 (98-107) mmol/L Carbon Dioxide 28 (21-32) mmol/L BUN 62 H (7-18) mg/dl Creatinine 4.94 H* D (0.6-1.4) mg/dl Glucose 111 H (70-99) mg/dl Calcium 8.9 (8.5-10.1) mg/dl Intake and Output 08/17/20 08/17/20 08/17/20 06:59 14:59 22:59 Intake Total 240 / 1155 1395 / 1395 Output Total 575 / 575 400 / 400 Balance -335 / 580 995 / 995 Intake: Oral 240 / 1155 1395 / 1395 Output: Urine 575 / 575 400 / 400 Other: Weight 122.5 kg Weight Measurement Method Standing Scale Diagnostic Findings Telemetry: He was admitted in sinus rhythm but went back into atrial fibrillation at around 7 AM this morning with a slightly high but relatively well controlled heart rate. PG Care Time/CCT Total # of Minutes Spent Total Time Spent with Patient: Total time spent is greater than 50% in coordination of care (as documented) at patient's floor/unit and/or counseling patient: Coding Level of Care Code 01993 Initial Inpt Care Lvl 3 Diagnoses Syncope and collapse R55 Paroxysmal atrial fibrillation I48.0 CAD (coronary artery disease) I25.119 Coronary Disease-Associated Artery/Lesion type: [place] artery [place] vs. transplanted heart: [place] heart Associated angina: with unspecified angina Anticoagulant long-term use Z79.01 (1) CAD (coronary artery disease) Coronary Disease-Associated Artery/Lesion type: [place] artery [place] vs. transplanted heart: [place] heart Associated angina: with unspecified angina Qualified Code(s): I25.119 - Atherosclerotic heart disease of [place] coronary artery with unspecified angina pectoris
[2020-08-17] MEDS: NEPHROCAPS PO SCH (20:29)
[2020-08-17] MEDS: carvediloL 6.25 MG TAB PO SCH (20:29)
[2020-08-17] MEDS: ATORVASTATIN 40 MG TAB PO SCH (20:30)
[2020-08-18] MEDS: HEPARIN SOD 5,000 UNIT/0.5 ML VIAL SQ SCH ×3 (05:41→20:17)
[2020-08-18] MEDS: TAMSULOSIN HCL 0.4 MG CAP PO SCH (07:38)
[2020-08-18] MEDS: SEVELAMER HCL 800 MG TABLET PO SCH ×3 (07:38→17:06)
[2020-08-18] MEDS: ASPIRIN 81 MG ECTAB PO SCH (07:38)
[2020-08-18] MEDS: FAMOTIDINE 20 MG TAB PO SCH (07:38)
[2020-08-18] MEDS: CLOPIDOGREL BISULFATE 75 MG TAB PO SCH (07:38)
--- NOTE | 2020-08-18 08:24 | Hospitalist Progress Note ---
Date of Service August 18, 2020 Assessment & Plan (1) Syncope: syncope and collapse, happened at 11pm on on 08/14 Patient had no postictal phase definitely not directly related to post micturition. With the loop recorder in place recent revascularization of his heart and recent A. fib recurrence concern for arrhythmogenic syncope. loop recorder has some pauses but not associated with symptoms, did discuss possible pacemaker, pt wants to reconsider at this time knee x ray negative for fracture vitals stable, normal CXR and CT head EKG shows atrial fibrillation rapid ventricular response improved with carvedilol dosing increased Will have cardiology evaluation interrogate loop recorder consideration for anticoagulation echo with normal EF, no valve disease no events on tele no neurological deficits to suggest CVA PT/OT, plan to discharge to home if does well with PT OT (2) End-stage renal disease on hemodialysis: consulted Dr. Jackson received HD on 08/15, next session is 08/18 (3) Paroxysmal atrial flutter: Did have recurrence on Coreg, additional dose of 3.25 given increased nighttime dose of 6.25, will confer with cardiology regarding starting anticoagulation, pt has not been with therapeutic range will consider eliquis therapy but maybe some issues with [employer] insurance (4) (HFpEF) heart failure with preserved ejection fraction: examines euvolemic, got HD with UF on 08/15 continue Lasix, he still makes urine continue Coreg Does have some mild JVD but this is a predialysis day (5) CAD (coronary artery disease): h/o recent CABG no current chest pain, EKG normal, continue Coreg, Lipitor, aspirin, Plavix (6) Diabetes mellitus type 2 in obese: Ceasar Novolog SS, diabetic diet monitor for hypoglycemia, no issues (7) BPH (benign prostatic hyperplasia): (8) Depression: Admission and Anticipated Discharge Date Admission Date: August 16, 2020 Subjective He is feeling well today post dialysis. He did not feel anything following con version of his atrial fibrillation to sinus rhythm this morning when he had a 4- second pause. He does not feel any different now than he did when he was in atrial fibrillation. Review of Systems Review of Systems: No real distress and fatigue no headache, blurry or double vision no speech or swallowing issues no chest pain, pressure or palpitations no shortness of breath, cough or wheezes no abdominal pain, nausea or vomiting, diarrhea or constipation no dysuria, hematuria or frequency no focal joint pain or swelling no back pain, CVA tenderness or radicular pain no bruising, bleeding or rashes no focal signs of weakness or numbness or altered sensation no complaints of anxiety or depression.. Physical Exam Physical Exam: The patient appeared well nourished and normally developed. Vital signs as documented. Head exam is normocephalic atraumatic no scleral icterus Neck is with 2 cm JVD, thyromegaly, or carotid bruits. Lungs are clear to auscultation, decreased breath sounds at the bases Cardiac exam, irregular rapid rate Abdominal exam reveals normal bowel sounds, soft non tender, no masses Extremities are trace edematous bilaterally and both pedal pulses are present AV fistula in his right arm with palpable thrill Neurologic exam is alert and oriented, no focal loss of strength or sensation Skin is without bruises or rashes Psychologically is without concerns for anxiety or depression Results & Data Results & Data ([facility]) Vital Signs (Past 12 Hours) Vital Signs Temp Pulse Resp BP Pulse Ox 08/18/20 07:03 98.1 F 77 20 137/73 93 08/18/20 03:02 98.2 F 95 H 18 125/72 95 08/17/20 22:10 98.1 F 94 H 16 131/78 92 PG Care Time/CCT Total # of Minutes Spent Total Time Spent with Patient: Total time spent is greater than 50% in coordination of care (as documented) at patient's floor/unit and/or counseling patient: Coding Level of Care Code 56225 Subseq Hosp Care Lvl 3 Diagnoses Syncope R55 End-stage renal disease on hemodialysis N18.6; Z99.2 Paroxysmal atrial flutter I48.92 (HFpEF) heart failure with preserved ejection fraction I50.30 CAD (coronary artery disease) I25.119 Associated angina: with unspecified angina Coronary Disease-Associated Artery/Lesion type: [place] artery [place] vs. transplanted heart: [place] heart Diabetes mellitus type 2 in obese E11.69; E66.9 BPH (benign prostatic hyperplasia) N40.0 Lower urinary tract symptom presence: symptoms absent Depression F33.9 Active/Remission status: remission status unspecified Depression Type: major depressive disorder Major depression recurrence: recurrent (1) BPH (benign prostatic hyperplasia) Lower urinary tract symptom presence: symptoms absent Qualified Code(s): N40.0 - Benign prostatic hyperplasia without lower urinary tract symptoms (2) CAD (coronary artery disease) Associated angina: with unspecified angina Coronary Disease-Associated Artery/Lesion type: [place] artery [place] vs. transplanted heart: [place] heart Qualified Code(s): I25.119 - Atherosclerotic heart disease of [place] coronary artery with unspecified angina pectoris (3) Depression Active/Remission status: remission status unspecified Depression Type: major depressive disorder Major depression recurrence: recurrent Qualified Code(s): F33.9 - Major depressive disorder, recurrent, unspecified
[2020-08-18] MEDS: INSULIN GLARGINE SOLOSTAR 100 UNITS/ML 3 ML PEN SQ SCH ×2 (08:25→20:22)
[2020-08-18] MEDS: INSULIN ASPART 100 UNITS/ML 3 ML PEN SC SCH ×4 (08:26→20:22)
--- NOTE | 2020-08-18 10:03 | Nephrology Progress Note ---
Date of Service August 18, 2020 Assessment & Plan (1) End-stage renal disease on hemodialysis: * Will provide HD today: 3 hr, 3K bath, attempt 3 L UF * Recommend HD/diabetic diet * Protect AVF * If discharge is anticipated, please have patient resume his regular HD outpatient TTS schedule at [facility] ([phone]) (2) Syncope: * Undergoing Cardiology evaluation, interrogation of loop recorder. Troponin was wnl * Currently hemodynamically stable * Recommend checking orthostatic vitals and ambulate w/ PT (3) Diabetes mellitus type 2 in obese: (4) Sleep apnea: Admission and Anticipated Discharge Date Admission Date: August 16, 2020 Subjective Mr. Solorio was seen & examined in his hospital room this morning. He reports that he has been up ambulating in his room and completing ADL's without dyspnea, palpitations, angina or near syncope Review of Systems Constitutional: no fever Eyes: no problem reported Ear, Nose, Mouth, Throat: no problem reported Respiratory: no dyspnea Cardiovascular: no chest pain, no palpitations and no edema Gastrointestinal: no abdominal pain Musculoskeletal: no back pain Integumentary: no rash Neurologic: no falls, no dizziness and no confusion Physical Exam Constitutional: + overweight (chronically ill appearing) Eyes: PERRL, conjunctivae normal, anicteric sclerae ENMT: external ear and nose normal, oropharynx normal Neck: trachea midline, no thyromegaly Respiratory: normal respiratory effort, lungs clear to auscultation Cardiovascular: Rate/Rhythm: regular rhythm Extremities: + AV fistula (+ bruit); no edema Gastrointestinal (Abdomen): normal bowel sounds, soft, nontender, no hepatosplenomegaly Musculoskeletal: Extremities: no cyanosis Skin: no rashes, warm and dry Neurologic: awake; not confused Results & Data ([facility]) Vital Signs (Past 12 Hours) Vital Signs Temp Pulse Resp BP Pulse Ox 08/18/20 07:03 36.7 C 77 20 137/73 93 08/18/20 03:02 36.8 C 95 H 18 125/72 95 08/17/20 22:10 36.7 C 94 H 16 131/78 92 PG Care Time/CCT Total # of Minutes Spent Total Time Spent with Patient: Total time spent is greater than 50% in coordination of care (as documented) at patient's floor/unit and/or counseling patient: Coding Level of Care Code 44055 Subseq Hosp Care Lvl 3 Diagnoses End-stage renal disease on hemodialysis N18.6; Z99.2 Syncope R55 Diabetes mellitus type 2 in obese E11.69; E66.9 Sleep apnea G47.30 Sleep apnea type: unspecified type (1) Sleep apnea Sleep apnea type: unspecified type Qualified Code(s): G47.30 - Sleep apnea, unspecified
--- NOTE | 2020-08-18 10:20 | Cardiology Progress Note ---
Date of Service August 18, 2020 Assessment & Plan (1) Syncope and collapse: The cause of syncope remains unclear, in the past he has had pauses with conversion of atrial fibrillation and he did have a 9-second pause identified in May as well as a 4-second pause this morning however the pauses do not seem to correlate with his syncopal event. He was in atrial fibrillation when he passed out but the rate does not seem to be excessive, perhaps in combination with orthostasis it could be sufficient. I would be inclined to consider pacemaker implantation since he has significant pauses, however he would prefer not to and I think that approach is acceptable since we have not correlated symptoms with these pauses. (2) Paroxysmal atrial fibrillation: He has paroxysmal atrial fibrillation, he was on amiodarone to try to suppress that but he does not seem to be on it currently. He did convert back to sinus rhythm this morning (being in atrial fibrillation for about 24 hours) with a 4-second pause. After the 4-second pause he had a junctional escape beat, his sinus node recovery time was in excess of that. He is on low-dose carvedilol to help with rate control. That may be contributing to bradycardia and his prolonged sinus node recovery time, however it was controlling his heart rate during atrial fibrillation well and this is a classic tachybradycardia syndrome. If we can suppress the atrial fibrillation that should also suppress the pauses, I would recommend starting amiodarone 200 mg twice daily for now. (3) CAD (coronary artery disease): He has coronary artery disease with recent bypass surgery and prior stent placement. I do not think ischemia was a factor in his presentation. (4) Anticoagulant long-term use: Ideally he will be on an anticoagulant, he currently was on warfarin but that is not a good drug in general and especially with dialysis. Of note he has not been in the therapeutic INR range between 2 and 3 once in the last 8 measurements, usually low. I would recommend El[place]ottie. Admission and Anticipated Discharge Date Admission Date: August 16, 2020 Subjective He is feeling well today post dialysis. He did not feel anything following conversion of his atrial fibrillation to sinus rhythm this morning when he had a 4-second pause. He does not feel any different now than he did when he was in atrial fibrillation. Physical Exam Physical Exam: Constitutional: Alert, cooperative and in no distress. HEENT: Unremarkable Neck: No jugular venous distention, carotid pulses are normal and equal bilat erally without bruits. Pulmonary: Clear to auscultation bilaterally. Cardiac: Regular rhythm with no murmur, gallop or rub. Abdomen: Soft, nontender with normal bowel sounds. Extremities: No edema. Distal pulses intact. Neurologic: No focal findings. Gait was not tested. Skin: No rash, ecchymoses or petechiae. Results & Data ([facility]) Vital Signs (Past 12 Hours) Vital Signs Temp Pulse Pulse Resp BP Pulse Ox 08/18/20 10:01 82 08/18/20 07:03 36.7 C 77 20 137/73 93 08/18/20 03:02 36.8 C 95 H 18 125/72 95 Laboratory Results Intake and Output 08/17/20 08/18/20 08/18/20 22:59 06:59 14:59 Intake Total 360 / 1755 Output Total 300 / 1200 500 / 1200 Balance 60 / 555 -500 / 555 Intake: Oral 360 / 1755 Output: Urine 300 / 1200 500 / 1200 Other: Other Intake Source npo Weight 122.6 kg 122.6 kg Weight Measurement Method Standing Scale Standing Scale Patient Weight 08/19/20 06:59 Weight 122.6 kg Diagnostic Findings Telemetry: Atrial fibrillation with a controlled heart rate overnight, converted to sinus rhythm around 7 AM with a 4-second pause. This terminated with a junctional escape beat, his first sinus beat was several seconds later so his sinus pause was longer than 6 seconds. Loop recorder interrogation: He did have multiple pauses identified on his loop recorder including 1 on August 14, 2020 at 1:30 AM which was 4 seconds in duration, his presentation to the emergency room however was the next day on August 15, 2020. In his log from the device he had a pause of 9 seconds on May 29, 2020. He has been having increased atrial fibrillation over the last week to 10 days, paroxysmal in nature. PG Care Time/CCT Total # of Minutes Spent Total Time Spent with Patient: Total time spent is greater than 50% in coordination of care (as documented) at patient's floor/unit and/or counseling patient: Coding Level of Care Code 48471 Subseq Hosp Care Lvl 3 Diagnoses Syncope and collapse R55 Paroxysmal atrial fibrillation I48.0 CAD (coronary artery disease) I25.119 Associated angina: with unspecified angina Coronary Disease-Associated Artery/Lesion type: [place] artery [place] vs. transplanted heart: [place] heart Anticoagulant long-term use Z79.01 CPT Codes Implant loop record interrogation (in person) - [id number] ([id number]) (1) CAD (coronary artery disease) Associated angina: with unspecified angina Coronary Disease-Associated Artery/Lesion type: [place] artery [place] vs. transplanted heart: [place] heart Qualified Code(s): I25.119 - Atherosclerotic heart disease of [place] coronary artery with unspecified angina pectoris
[2020-08-18] MEDS: FUROSEMIDE 80 MG TAB PO SCH ×2 (12:54→17:05)
[2020-08-18] MEDS: cloNIDine HCL 0.1 MG TAB PO SCH ×2 (12:55→20:17)
[2020-08-18] MEDS: carvediloL 6.25 MG TAB PO SCH ×2 (12:56→20:18)
[2020-08-18] MEDS: AMIODARONE 200 MG TAB PO SCH (17:06)
[2020-08-18] MEDS ORDERED: CETIRIZINE HCL 10 MG TABLET PO ONE (18:08)
[2020-08-18] MEDS: NEPHROCAPS PO SCH (20:17)
[2020-08-18] MEDS: ATORVASTATIN 40 MG TAB PO SCH (20:18)
[2020-08-19] MEDS ORDERED: AMIODARONE 200 MG TAB PO SCH
[2020-08-19] MEDS: HEPARIN SOD 5,000 UNIT/0.5 ML VIAL SQ SCH (05:53)
[2020-08-19] MEDS: TAMSULOSIN HCL 0.4 MG CAP PO SCH (07:46)
[2020-08-19] MEDS: FUROSEMIDE 80 MG TAB PO SCH (07:47)
[2020-08-19] MEDS: FAMOTIDINE 20 MG TAB PO SCH (07:47)
[2020-08-19] MEDS: carvediloL 6.25 MG TAB PO SCH (07:47)
[2020-08-19] MEDS: CLOPIDOGREL BISULFATE 75 MG TAB PO SCH (07:48)
[2020-08-19] MEDS: ASPIRIN 81 MG ECTAB PO SCH (07:48)
[2020-08-19] MEDS: SEVELAMER HCL 800 MG TABLET PO SCH ×2 (07:49→12:07)
[2020-08-19] MEDS: AMIODARONE 200 MG TAB PO SCH (07:49)
[2020-08-19] MEDS: cloNIDine HCL 0.1 MG TAB PO SCH (07:49)
[2020-08-19 08:02] LABS: BUN Creatinine Ratio 12.1 (10-20); Calcium 9.5 mg/dl (8.5-10.1); Creatinine Clr Calc Pharmacy 22.1 ml/min; Est GFR (African American) 15.4; Est GFR (Non-African American) 13.3; Potassium 3.9 mmol/L (3.5-5.1)
[2020-08-19] MEDS: INSULIN ASPART 100 UNITS/ML 3 ML PEN SC SCH ×2 (08:20→12:08)
--- NOTE | 2020-08-19 08:52 | Nephrology Progress Note ---
Date of Service August 19, 2020 Assessment & Plan (1) End-stage renal disease on hemodialysis: * Volume status and electrolyte balance are acceptable. No acute indication for HD this am * Recommend HD/diabetic diet * Protect AVF * If discharge is anticipated, please have patient resume his regular HD outpatient TTS schedule at [facility] ([phone]) (2) Syncope: * Undergoing Cardiology evaluation, interrogation of loop recorder. Troponin was wnl * Amiodarone started for management of atrial fibrillation * Will need anticoagulation with warfarin or apixaban (3) Diabetes mellitus type 2 in obese: (4) Sleep apnea: Admission and Anticipated Discharge Date Admission Date: August 16, 2020 Subjective Mr. Solorio was seen & examined in his hospital room this morning. He reports that he has been up ambulating in his room and completing ADL's without dyspnea, palpitations, angina or near syncope. Suffered an episode of hypoglycemia this am, now resolved Review of Systems Constitutional: no fever Eyes: no problem reported Ear, Nose, Mouth, Throat: no problem reported Respiratory: no dyspnea Cardiovascular: no chest pain, no palpitations and no edema Gastrointestinal: no abdominal pain Musculoskeletal: no back pain Integumentary: no rash Neurologic: no falls, no dizziness and no confusion Physical Exam Constitutional: + overweight (chronically ill appearing) Eyes: PERRL, conjunctivae normal, anicteric sclerae ENMT: external ear and nose normal, oropharynx normal Neck: trachea midline, no thyromegaly Respiratory: normal respiratory effort, lungs clear to auscultation Cardiovascular: Rate/Rhythm: regular rhythm Extremities: + AV fistula (+ bruit); no edema Gastrointestinal (Abdomen): normal bowel sounds, soft, nontender, no hepatosplenomegaly Musculoskeletal: Extremities: no cyanosis Skin: no rashes, warm and dry Neurologic: awake; not confused Results & Data ([facility]) Vital Signs (Past 12 Hours) Vital Signs Temp Pulse Pulse Resp BP Pulse Ox 08/19/20 07:28 36.6 C 68 16 137/61 91 08/19/20 03:28 36.9 C 61 18 148/69 H 92 08/19/20 02:19 71 08/18/20 23:50 37.1 C 97 H 20 129/71 96 Laboratory Tests 08/19/20 08/19/20 06:43 08:19 Sodium 134 L Potassium 3.9 Chloride 101 Carbon Dioxide 26 BUN 52 H Creatinine 4.27 H POC Glucose 86 PG Care Time/CCT Total # of Minutes Spent Total Time Spent with Patient: Total time spent is greater than 50% in coordinat ion of care (as documented) at patient's floor/unit and/or counseling patient: Coding Level of Care Code 30247 Subseq Hosp Care Lvl 3 Diagnoses End-stage renal disease on hemodialysis N18.6; Z99.2 Syncope R55 Diabetes mellitus type 2 in obese E11.69; E66.9 Sleep apnea G47.30 Sleep apnea type: unspecified type (1) Sleep apnea Sleep apnea type: unspecified type Qualified Code(s): G47.30 - Sleep apnea, unspecified
[2020-08-19] MEDS ORDERED: INSULIN GLARGINE SOLOSTAR 100 UNITS/ML 3 ML PEN SQ SCH (09:00)
--- NOTE | 2020-08-19 10:33 | Cardiology Progress Note ---
Date of Service August 19, 2020 Assessment & Plan (1) Syncope and collapse: The cause of syncope remains unclear, in the past he has had pauses with conversion of atrial fibrillation and he did have a 9-second pause identified in May as well as a 4-second pause yesterday morning however the pauses do not seem to correlate with his syncopal event. He was in atrial fibrillation when he passed out but the rate does not seem to be excessive, perhaps in combination with orthostasis it could be sufficient. I would be inclined to consider pacemaker implantation since he has significant pauses, however he would prefer not to and I think that approach is acceptable since we have not correlated symptoms with these pauses. (2) Paroxysmal atrial fibrillation: He has paroxysmal atrial fibrillation, he was on amiodarone to try to suppress that but he does not seem to be on it currently. He did convert back to sinus rhythm yesterday morning (being in atrial fibrillation for about 24 hours) with a 4-second pause. After the 4-second pause he had a junctional escape beat, his sinus node recovery time was in excess of that. He is on low- dose carvedilol to help with rate control. That may be contributing to bradycardia and his prolonged sinus node recovery time, however it was controlling his heart rate during atrial fibrillation well and this is a classic tachybradycardia syndrome. If we can suppress the atrial fibrillation that should also suppress the pauses, I would recommend starting amiodarone 200 mg twice daily for now. (3) CAD (coronary artery disease): He has coronary artery disease with recent bypass surgery and prior stent placement. I do not think ischemia was a factor in his presentation. (4) Anticoagulant long-term use: Ideally he will be on an anticoagulant, he currently was on warfarin but that is not a good drug in general and especially with dialysis. Of note he has not been in the therapeutic INR range between 2 and 3 once in the last 8 measurements, usually low. I would recommend Eliripis. Admission and Anticipated Discharge Date Admission Date: August 16, 2020 Subjective He feels well today, he has no palpitations, lightheadedness or dizziness. He is sitting at his bedside and is anxious to go home. Physical Exam Physical Exam: Constitutional: Alert, cooperative and in no distress. HEENT: Unremarkable Neck: No jugular venous distention, carotid pulses are normal and equal bilaterally without bruits. Pulmonary: Clear to auscultation bilaterally. Cardiac: Regular rhythm with no murmur, gallop or rub. Abdomen: Soft, nontender with normal bowel sounds. Extremities: No edema. Distal pulses intact. Neurologic: No focal findings. Gait was not tested. Skin: No rash, ecchymoses or petechiae. Results & Data ([facility]) Vital Signs (Past 12 Hours) Vital Signs Temp Pulse Pulse Resp BP Pulse Ox 08/19/20 09:52 67 08/19/20 07:28 36.6 C 68 16 137/61 91 08/19/20 03:28 36.9 C 61 18 148/69 H 92 08/19/20 02:19 71 08/18/20 23:50 37.1 C 97 H 20 129/71 96 Laboratory Results Comprehensive Metabolic Panel 08/19/20 08/19/20 Range/Units 06:43 07:50 Sodium 134 L (136-145) mmol/L Potassium 3.9 (3.5-5.1) mmol/L Chloride 101 (98-107) mmol/L Carbon Dioxide 26 (21-32) mmol/L BUN 52 H (7-18) mg/dl Creatinine 4.27 H (0.6-1.4) mg/dl Glucose 35 L* 47 L* (70-99) mg/dl Calcium 9.5 (8.5-10.1) mg/dl Intake and Output 08/18/20 08/19/20 08/19/20 22:59 06:59 14:59 Intake Total 400 / 800 200 / 800 Output Total 300 / 900 400 / 900 Balance 100 / -100 -200 / -100 Intake: Oral 400 / 800 200 / 800 Output: Urine 300 / 900 400 / 900 Other: Weight 122.8 kg Weight Measurement Method Standing Scale Diagnostic Findings Telemetry: Sinus rhythm with PACs, no further atrial fibrillation since conversion yesterday morning PG Care Time/CCT Total # of Minutes Spent Total Time Spent with Patient: Total time spent is greater than 50% in coordination of care (as documented) at patient's floor/unit and/or counseling patient: Coding Level of Care Code 60795 Subseq Hosp Care Lvl 2 Diagnoses Syncope and collapse R55 Paroxysmal atrial fibrillation I48.0 CAD (coronary artery disease) I25.119 Associated angina: with unspecified angina Coronary Disease-Associated Artery/Lesion type: [place] artery [place] vs. transplanted heart: [place] heart Anticoagulant long-term use Z79.01 (1) CAD (coronary artery disease) Associated angina: with unspecified angina Coronary Disease-Associated Artery/Lesion type: [place] artery [place] vs. transplanted heart: [place] heart Qualified Code(s): I25.119 - Atherosclerotic heart disease of [place] coronary artery with unspecified angina pectoris
[2020-08-19] MEDS ORDERED: Nursing to Pharmacy Communication SCH (13:15)
--- NOTE | 2020-08-19 18:29 | Discharge Summary ---
Date of Service August 19, 2020 Admission HPI Per Admitting Provider 70 yo male with h/o ESRD on HD, CAD s/p CABG recently who presented with syncope and collapse at his home, it was unwitnessed. He says he was feeling fine yesterday, no issues eating/drinking, no fever/chills or signs of infection. He was walking into his bathroom when he fell, lost consciousness. He came to and knew he was in his home and down on the floor, had hurt his left knee but no other pain. He called for help. He says he had no warning signs of passing out, specifically no chest pain, palpitations, light headedness, diaphoresis, nausea. No history of this. He has been compliant with his medications recently, compliant with HD, he is due for HD today. Principal Diagnosis Syncope Atrial fibrillation with occasional pauses Patient offered pacemaker and declined Discharge Exam The patient appeared well nourished and normally developed. Vital signs as documented. Head exam is normocephalic atraumatic no scleral icterus Neck is without JVD, thyromegaly, or carotid bruits. Lungs are clear to auscultation, no focal loss of breath sounds Cardiac exam, irregular but rate controlled mild murmur Abdominal exam reveals normal bowel sounds, soft non tender, no masses Extremities right arm AV fistula is edema bilateral lower extremities Neurologic exam is alert and oriented, no focal loss of strength or sensation Discharge Data Allergies Allergy/AdvReac Type Severity Reaction Status Date / Time ragweed pollen Allergy Mild [place] Verified 08/15/20 07:25 [place] Complexes Allergy Unknown rash from Verified 08/15/20 07:25 metal Consultations 08/15/20 07:08 ED Decision to Admit Stat 08/15/20 08:47 Consult Nephrology Routine 08/17/20 16:08 Consult Cardiology Routine Ordered Studies 08/15/20 05:17 CT head/brain wo con Urgent Hospital Course (1) Syncope: syncope and collapse, happened at 11pm on on 08/14 Patient had no postictal phase definitely not directly related to post micturition. With the loop recorder in place recent revascularization of his heart and recent A. fib recurrence concern for arrhythmogenic syncope. loop recorder has some pauses but not associated with symptoms, did discuss possible pacemaker with cardiology, pt wants to reconsider at this time knee x ray negative for fracture vitals stable, normal CXR and CT head EKG shows atrial fibrillation rapid ventricular response improved with carvedilol dosing increased cardiology added amiodarone which be continued at home Will have cardiology evaluation interrogate loop recorder consideration for anticoagulation patient has some restrictions with his [facility] he will resume his home Coumadin therapy with an INR check on 08/24 but hopeful be converted to Eliquis therapy. I phoned the [facility] pharmacist May [phone] and asked if she can help facilitate this as he has had challenges achieving thera peutic dosing with his Coumadin in the past. 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 Jackson received HD on 08/15, 08/18 will resume outpatient dialysis on 08/20 (3) Paroxysmal atrial flutter: Did have recurrence on Coreg, additional dose of 3.25 given increased nighttime dose of 6.25, will confer with cardiology regarding starting anticoagulation, pt has not been with therapeutic range will consider eliquis therapy but maybe some issues with [facility] insurance for now will be home on Coumadin 2 mg and amiodarone 200 twice daily (4) (HFpEF) heart failure with preserved ejection fraction: examines euvolemic, got HD with UF on 08/15 continue Lasix, he still makes urine continue Coreg (5) CAD (coronary artery disease): h/o recent CABG no current chest pain, EKG normal, continue Coreg, Lipitor, aspirin, Plavix (6) Diabetes mellitus type 2 in obese: Resume home insulin therapy (7) BPH (benign prostatic hyperplasia): (8) Depression: Total Time Total Time Spent Total Time Spent (In Minutes): It required greater than 30 minutes to prepare this patient for discharge Discharge Plan Discharge Items Patient Disposition: Home - Home Health Services Reason For Visit: SYNCOPE Discharge Diagnosis: syncope atrial fibrillation esrd Activity: Per Instructions section Non-emergency contact: Primary Care Provider and [employer] Operator Call non-emergency contact if: you have any medication questions and your symptoms worsen Follow-up/Referrals: PCP,NO [Primary Care Provider] - Diet: Dialysis Renal Addtl Attending Provider Instructions: please follow dialysis instructions please take you new heart medicines as prescribed follow up with Dr Washington as previously scheduled in September [facility] to draw INR on monday08/24/20, results to [facility] pharmacist Delores [phone] Pending Studies at Discharge: Yes Stand-Alone Forms: My [facility], Smoking Cessation Medications and DC Order Prescriptions: New amiodarone 200 mg Tablet 200 mg PO BIDM Qty: 60 RF: 0 warfarin 2 mg tablet 2 mg PO DAILY Qty: 30 RF: 5 Continued furosemide [Lasix] 40 mg Tablet 80 mg PO BID RF: 0 insulin aspart U-100 [Novolog PenFill U-100 Insulin] 100 unit/mL Cartridge 10 unit SUBCUT AC RF: 0 tamsulosin 0.4 mg Capsule 0.4 mg PO QAM RF: 0 albuterol sulfate 90 mcg/actuation Hfa Aerosol Inhaler 2 puff INHALATION Q6H PRN (Reason: Shortness Of Breath) RF: 0 loratadine 10 mg Tablet 10 mg PO DAILY PRN (Reason: Allergy Symptoms) RF: 0 clonidine HCl 0.1 mg tablet See Rx Instructions .ROUTE .COMPLEX RF: 0 amlodipine 10 mg tablet 5 mg PO QAM RF: 0 clopidogrel [Plavix] 75 mg Tablet 75 mg PO DAILY RF: 0 Lantus Solostar U-100 Insulin 100 unit/mL (3 mL) insulin pen 50 unit SUBCUT BID RF: 0 sevelamer carbonate [Renvela] 800 mg tablet 800 mg PO TIDM RF: 0 ProRenal 8 mg iron-800 mcg-1,000 unit tablet 1 tab PO QPM RF: 0 nitroglycerin [Nitrostat] 0.4 mg Tablet, Sublingual 0.4 mg sublingual UD PRN (Reason: chest pain) Qty: 20 RF: 0 atorvastatin 40 mg Tablet 40 mg PO PM Qty: 30 RF: 5 aspirin 81 mg Tablet,Delayed Release (Dr/Ec) 81 mg PO DAILY RF: 0 Changed carvedilol [Coreg] 6.25 mg tablet 6.25 mg PO BID Qty: 0 RF: 0 Discontinued sertraline 50 mg Tablet 50 mg PO QAM PRN (Reason: Anxiety) RF: 0 Discharge Orders: Discharge Order (Routine); Ordered 08/19/20 Ordered By: Prince Taylor Admission Data Admit Date/Time: 08/16/20 14:28 Attending Provider: Prince Taylor Admit Provider: Angel Morrison Primary Care Provider: PCP,NO Other Providers: Angel Morrison ; Tobias Richard ; Prince Taylor ; [facility] ; Arya Khoury Other Interventions: Discharge Summary Assessment (RN) Last Done: 08/19/20 12:33 Coding Level of Care Code D/C Day Management >30 mins Diagnoses Syncope R55 End-stage renal disease on hemodialysis N18.6; Z99.2 Paroxysmal atrial flutter I48.92 (HFpEF) heart failure with preserved ejection fraction I50.30 CAD (coronary artery disease) I25.119 Coronary Disease-Associated Artery/Lesion type: [place] artery [place] vs. transplanted heart: [place] heart Associated angina: with unspecified angina Diabetes mellitus type 2 in obese E11.69; E66.9 BPH (benign prostatic hyperplasia) N40.0 Lower urinary tract symptom presence: symptoms absent Depression F33.9 Depression Type: major depressive disorder Major depression recurrence: recurrent Active/Remission status: remission status unspecified
[2020-08-20] MEDS ORDERED: SODIUM CHLORIDE 0.9% 1000ML 1,000 ML IV PRN (07:00)
[2020-08-20] MEDS ORDERED: HEPARIN SOD (PORCINE) 1000 UNIT/ML IV ONE (07:00)
--- NOTE | 2020-08-25 08:52 | Coding Query ---
CODING QUERY To promote full compliance with coding requirements relating to patient care, provider participation is requested in all cases of medical billing coder uncertainty. Please assist us with the question(s) below: Coding Question(s): Syncope is documented throughout the record with documentation on the Discharge Summary of, "Patient had no postictal phase definitely not directly related to post micturition. With the loop recorder in place recent revascularization of his heart and recent A. fib recurrence concern for arrhythmogenic syncope. loop recorder has some pauses but not associated with symptoms, did discuss possible pacemaker with cardiology, pt wants to reconsider at this time". Please specify below, in your clinical opinion, regarding the likely etiology of syncope. ( ) Syncope likely due to Atrial Fibrillation ( ) Syncope likely due to Arrhythmia unspecified ( ) Syncope likely due to Other: Please Specify ( xx ) Syncope with Unknown likely etiology Physician's Response(s): Thank you Hayde Figueredo Principal Diagnosis: "that condition established after study, to be chiefly responsible for occasioning the admission of the patient to the hospital for care." Co-Existing Principal Diagnosis: "when two or more diagnoses equally meet the criteria for principal diagnosis as determined by the circumstances of admission, diagnostic work up, and/or therapy provided, and the Alphabetic Index, Tabular List, or another coding guideline does not provide sequencing direction, any one of the diagnoses may be sequenced first." "When the physician has documented what appears to be a current diagnosis in the body of the record, but has not included the diagnosis in the final diagnostic statement, the physician should be asked whether the diagnosis should be added." (Source Coding Clinic 2 QTR90. p3-4) SELINA
== END 2020-08-19 14:13 | disposition home health service (06) | DRG 308 ==
LOC: 2N 04:59 → ED 04:59 → 2N 08:15 → SUATTDRO 08-16 14:28

== ENCOUNTER 2021-11-09 06:04 | Observation (INO) ==
[2021-11-09 07:01] LABS: Albumin Globulin Ratio 1.1 (0.9-2); Albumin Level 4.1 gm/dl (3.4-5.0); BUN Creatinine Ratio 6.9 (10-20); Bilirubin,Total 0.4 mg/dl (0.2-1.0); Calcium 9.3 mg/dl (8.5-10.1); Creatinine Clr Calc Pharmacy 13.7 ml/min; Est GFR (Non-African American) 6.9 ml/min; Globulin 3.7 gm/dl (2.5-4.0); Magnesium 2.5 mg/dl (1.7-2.4); Potassium 4.7 mmol/L (3.5-5.1); Total Protein 7.8 gm/dl (6.0-8.3)
[2021-11-09 07:02] LABS: Basophils # (auto) 0.03 K/uL (0-0.2); Basophils % (auto) 0.2 %; Eosinophils # (auto) 0.46 K/uL (0-0.5); Eosinophils % (auto) 3.6 %; Hematocrit (blood only) 39.8 % (42-52); Hemoglobin 12.2 g/dL (14.0-18.0); Immature Granulocytes # (auto) 0.06 K/uL (0.00-0.02); Immature Granulocytes % (auto) 0.5 %; Lymphocytes # (auto) 1.15 K/uL (1.2-3.4); Lymphocytes % (auto) 8.9 %; Mean Corpuscular Hemoglobin 30.3 pg (25-34); Mean Corpuscular Hgb Conc 30.7 g/dL (32-36); Mean Corpuscular Volume 98.8 fL (80-100); Mean Platelet Volume 10.7 fL (7.4-10.4); Monocytes # (auto) 0.29 K/uL (0.11-0.59); Monocytes % (auto) 2.3 %; Neutrophils # (auto) 10.86 K/uL (1.4-6.5); Neutrophils % (auto) 84.5 %; Platelet Count 206 K/uL (130-400); Red Blood Count 4.03 M/uL (4.7-6.1); White Blood Count 12.85 K/uL (4.8-10.8)
--- NOTE | 2021-11-09 07:07 | XRay Report ---
XR chest 1V portable CLINICAL HISTORY: Dyspnea COMPARISON STUDY: Chest radiograph August 29, 2020. Chest CT September 03, 2020. FINDINGS: Electronic device projects over the left chest. There are median sternotomy wires and media stinal surgical clips. Cardiomegaly is unchanged. There is pulmonary vascular congestion. No evidence for overt pulmonary edema. No pneumothorax or pleural effusion is noted. Evaluation is compromised b y suboptimal penetration related to portable technique. Apparent left basilar opacity is likely artif actual. IMPRESSION: 1. Stable cardiomegaly. Pulmonary vascular congestion without overt pulmonary edema. 2. Apparent left basilar opacity. Although artifact is favored an infectious process cannot be exclud ed. ACT 112: Negative or not required by law. Electronically signed by: Chaim Phan M.D. 11/09/2021 7:05 AM
[2021-11-09] MEDS ORDERED: FUROSEMIDE 40 MG/4 ML VIAL IV ONE (07:08)
[2021-11-09 07:10] LABS: Troponin I High Sensitivity 20.5 pg/ml (0-20)
--- NOTE | 2021-11-09 07:13 | Emergency Department Note ---
History of Present Illness General Chief complaint: Shortness of Breath/Dyspnea Stated complaint: SUDDEN ONSET SHORT OF BREATH Time Seen by Provider: 11/09/21 06:29 History of Present Illness 71-year-old male presents to the ED with a chief complaint of shortness of breath. The patient states that he has been feeling short of breath all morning. The patient states that he gained approximately 6 kg since his last dialysis 2 days ago. His shortness of breath was worse with exertion. He also states that he has had diarrhea for couple of days. He had 1 episode of vomiting during dialysis today. He does not use home oxygen. His oxygen saturations were 84% on room air. He does also report a runny nose and a dry cough although the cough is chronic and not new. No swelling in his legs. No fevers. No additional complaints. He is on Lasix twice a day. He does produce urine. Home Medications Medication Instructions Recorded Confirmed Type albuterol sulfate 90 mcg/actuation 2 puff INHALATION Q6H PRN 01/06/19 04/05/21 History aerosol inhaler furosemide 40 mg tablet (Lasix) 80 mg PO BID 01/06/19 04/05/21 History insulin aspart U-100 100 unit/mL 10 unit SUBCUT AC 01/06/19 04/05/21 History subcutaneous cartridge (Novolog PenFill U-100 Insulin aspart) loratadine 10 mg tablet 10 mg PO DAILY PRN 01/06/19 04/05/21 History tamsulosin 0.4 mg capsule 0.4 mg PO QAM 01/06/19 04/05/21 History clopidogrel 75 mg tablet (Plavix) 75 mg PO QAM 03/06/19 04/05/21 History insulin glargine 100 unit/mL (3 50 unit SUBCUT BID 03/06/19 04/05/21 History mL) subcutaneous pen (Lantus Solostar U-100 Insulin) vit B complx, C-iron 8 mg-folic 1 tab PO QPM 09/26/19 04/05/21 History acid 800 mcg-D3 1,000 unit-zinc tablet (ProRenal) amlodipine 10 mg tablet 5 mg PO QAM tab 12/18/19 04/05/21 History nitroglycerin 0.4 mg sublingual 0.4 mg SUBLINGUAL UD PRN #20 tab 12/27/19 04/05/21 Rx tablet (Nitrostat) carvedilol 6.25 mg tablet (Coreg) 6.25 mg PO BID #0 tab 08/19/20 04/05/21 Rx apixaban 5 mg tablet (Eliquis) 5 mg PO BID 08/21/20 04/05/21 History clonidine HCl 0.1 mg tablet 0.1 mg PO QPM 08/21/20 04/05/21 History clonidine HCl 0.1 mg tablet 0.2 mg PO QAM 08/21/20 04/05/21 History amiodarone 200 mg tablet 200 mg PO DAILY tab 04/05/21 04/05/21 History rosuvastatin 10 mg tablet 10 mg PO DAILY 04/05/21 04/05/21 History sevelamer carbonate 800 mg tablet 2,400 mg PO TID tab 04/05/21 04/05/21 History (Renvela) amoxicillin 500 mg-potassium 1 tab PO DAILY #10 tab 09/11/21 Rx clavulanate 125 mg tablet (Augmentin) Allergies Allergy/AdvReac Type Severity Reaction Status Date / Time [place] Complexes Allergy Mild rash from Verified 04/05/21 11:00 metal ragweed pollen Allergy Mild [place] Verified 04/05/21 11:00 Past Med/Surg History Medical History BPH (benign prostatic hyperplasia) CAD (coronary artery disease) s/p LAD stents (2018 and 2019) CHF (congestive heart failure) Chronic kidney disease FOLLOWS WITH DR. TONY Diabetes mellitus, type 2 Dyslipidemia Environmental allergies REASON FOR INHALER GERD (gastroesophageal reflux disease) Hemodialysis patient FOR 2 YEARS/MONDAY, MONDAY, MONDAY AT [facility] HTN (hypertension) Neuropathy Paroxysmal atrial fibrillation Sinus node dysfunction Sleep apnea does not use CPAP Umbilical hernia Surgical History AV fistula RT ARM History of colonoscopy History of heart artery stent X 2 () History of loop recorder Implanted 05/01/2019 History of tooth extraction S/P CABG (coronary artery bypass graft) 2-VESSEL AT 05/2020 ([place]) Family History Other Hypertension No family history of adverse response to anesthesia Denies family history of Kidney disease Social History Smoking Status: Former smoker Tobacco Type: Cigarettes Cigarettes Per Day: 10; Second Hand Exposure: No; Hx Alcohol Use: Yes Alcohol type: beer Hx Substance Use: No Preferred Language: Georgian Communication Ability: Effective Joint Filler Required: No Beliefs That Will Affect Care: None marital status: Single Current Living Situation: Alone How many Children do You have: 0 Feels Safe at Home: Yes Assistive Devices: Glasses Review of Systems A total of 10 systems reviewed and were otherwise negative Physical Exam Vital Signs Vital Signs - 24 hr 11/09/21 06:07 11/09/21 06:39 11/09/21 06:44 Temperature 36.5 C Temperature Source Oral Pulse Rate 50 L Pulse Rate [Apical] 53 L Pulse Rhythm Regular Pulse Rhythm [Apical] Regular Respiratory Rate 25 H 16 Respiratory Effort / Characteristics Accessory Muscle Use Short of Breath SOB on Exertion Respiratory Depth Shallow Blood Pressure 184/68 H Blood Pressure [Left Arm] 172/73 H Blood Pressure Mean 106 Blood Pressure Mean [Left Arm] 106 Blood Pressure Position Sitting Blood Pressure Position [Left Arm] Sitting Pulse Oximetry 84 L 94 Oxygen Delivery Method Room Air Nasal Cannula Nasal Cannula Oxygen Flow Rate 4 4 Sepsis Recent Fever Within 48 Hours No Sepsis New/Unexplained Change in Mental Status No Sepsis Action Taken by Nursing No Action Required Oxygen Flow Rate - Titration 4 Pulse Oximetry Post Tiitration 96 CONSTITUTIONAL/VITAL SIGNS: Reviewed / noted above. GENERAL: Non-toxic in appearance. INTEGUMENTARY: Warm, dry, and [place]. HEAD: Normocephalic. EYES: without scleral icterus or trauma. ENT/OROPHARYNX: clear and moist. LYMPHADENOPATHY/NECK: Is supple without lymphadenopathy or meningismus. RESPIRATORY: Rales in the bases to auscultation bilaterally. Minimal increased work of breathing. CARDIOVASCULAR: Regular rate and rhythm. GI/ABDOMEN: Soft and nontender. No organomegaly or pulsatile mass. EXTREMITIES: Warm and well perfused. BACK: No CVA tenderness. NEUROLOGICAL: Intact without focal deficits. PSYCHIATRIC: normal affect. MUSCULOSKELETAL: Normally developed with good muscle tone. TRIAGE NURSING DOCUMENTATION REVIEWED. Medical Decision Making Differential Diagnosis The differential was considered includes acute myocardial infarction, acute coronary syndrome, myocarditis, pericarditis, pericardial effusions /tamponad, esophageal perforation, pulmonary embolism, pneumonia, pneumothorax, cardiomyopathy, congestive heart, anemia , COPD/asthma exacerbation. Medical Records Attestation: I reviewed the patient's medical records. Home Medications Current Medication List: was personally reviewed by me Laboratory Data Attestation: I reviewed the patient's lab results. Result diagrams: 11/09/21 06:15 11/09/21 06:15 Lab Results 11/09/21 11/09/21 11/09/21 Range/Units 06:15 06:15 06:15 WBC 12.85 H (4.8-10.8) K/uL RBC 4.03 L (4.7-6.1) M/uL Hgb 12.2 L (14.0-18.0) g/dL Hct 39.8 L (42-52) % MCV 98.8 (80-100) fL MCH 30.3 (25-34) pg MCHC 30.7 L (32-36) g/dL RDW Std Deviation 58.0 H (36.4-46.3) fL RDW Coeff of Atif 16.0 H (11.5-14.5) % Plt Count 206 (130-400) K/uL MPV 10.7 H (7.4-10.4) fL Immature Gran % (Auto) 0.5 % Neut % (Auto) 84.5 % Lymph % (Auto) 8.9 % [place] % (Auto) 2.3 % Eos % (Auto) 3.6 % Baso % (Auto) 0.2 % Neut # (Auto) 10.86 H (1.4-6.5) K/uL Lymph # (Auto) 1.15 L (1.2-3.4) K/uL [place] # (Auto) 0.29 (0.11-0.59) K/uL Eos # (Auto) 0.46 (0-0.5) K/uL Baso # (Auto) 0.03 (0-0.2) K/uL Immature Gran # (Auto) 0.06 H (0.00-0.02) K/uL Sodium 141 (136-145) mmol/L Potassium 4.7 (3.5-5.1) mmol/L Chloride 100 (98-107) mmol/L Carbon Dioxide 31 (21-32) mmol/L Anion Gap 10 (3-11) BUN 50 H (6-23) mg/dl Creatinine 7.29 H* (0.6-1.4) mg/dl Est Cr Clr Drug Dosing 13.7 ml/min Est GFR ( Amer) 8.0 ml/min Est GFR (Non-Af Amer) 6.9 ml/min BUN/Creatinine Ratio 6.9 L (10-20) Glucose 140 H (70-99(Fasting)) mg/dl Calcium 9.3 (8.5-10.1) mg/dl Magnesium 2.5 H (1.7-2.4) mg/dl Total Bilirubin 0.4 (0.2-1.0) mg/dl AST 14 (13-39) U/L ALT 10 (7-52) U/L Alkaline Phosphatase 48 (34-104) U/L Troponin I High Sens 20.5 H (0-20) pg/ml B-Natriuretic Peptide 627 H (0-100) pg/ml Total Protein 7.8 (6.0-8.3) gm/dl Albumin 4.1 (3.4-5.0) gm/dl Globulin 3.7 (2.5-4.0) gm/dl Albumin/Globulin Ratio 1.1 (0.9-2) Imaging Data Radiologist's Impression: Chest X-Ray 11/09/21 06:21 XR chest 1V portable CLINICAL HISTORY: Dyspnea COMPARISON STUDY: Chest radiograph August 29, 2020. Chest CT September 03, 2020. FINDINGS: Electronic device projects over the left chest. There are median sternotomy wires and mediastinal surgical clips. Cardiomegaly is unchanged. There is pulmonary vascular congestion. No evidence for overt pulmonary edema. No pneumothorax or pleural effusion is noted. Evaluation is compromised by suboptimal penetration related to portable technique. Apparent left basilar opacity is likely artifactual. IMPRESSION: 1. Stable cardiomegaly. Pulmonary vascular congestion without overt pulmonary edema. 2. Apparent left basilar opacity. Although artifact is favored an infectious process cannot be excluded. ACT 112: Negative or not required by law. Electronically signed by: Chaim Pahn M.D. 11/09/2021 7:05 AM ECG Data Attestation: I personally reviewed and interpreted this ECG as follows: Additional Comments: Twelve-lead EKG: Per my interpretation shows a sinus bradycardia at a rate of 49. First-degree AV block. No ST elevation. No PVCs. Normal QTC MDM Narrative 71-year-old male with 6 kg of weight gain over the past 3 days since his last dialysis presents to the ED hypoxic and short of breath. He was at dialysis today when he became increasing short of breath. Chest x-ray suggest some pulmonary vascular congestion. He was hypoxic on room air. He does not use home oxygen. He does not produce urine. He was treated with IV Lasix. Laboratory studies showed elevated BNP. Mildly elevated troponin. EKG shows a sinus bradycardia without acute ischemic changes. White blood cell count was mildly elevated. BUN and creatinine are elevated consistent with his chronic renal dialysis. The patient was treated with IV Lasix here. He will require further inpatient evaluation for his hypoxia and may need additional dialysis Impression & Plan Pulmonary edema, Hypoxia Discharge Plan Visit Data Chief Complaint: Shortness of Breath/Dyspnea Stated Complaint: SUDDEN ONSET SHORT OF BREATH ED Provider: Tobias Sultana Discharge Problem: Pulmonary edema, Hypoxia Patient Disposition: Being Evaluated by Hospitalist Forms Stand Alone Forms: [facility] Prescriptions Prescriptions: No Action amiodarone 200 mg tablet 200 mg PO DAILY RF: 0 rosuvastatin 10 mg tablet 10 mg PO DAILY RF: 0 furosemide [Lasix] 40 mg Tablet 80 mg PO BID RF: 0 insulin aspart U-100 [Novolog PenFill U-100 Insulin] 100 unit/mL Cartridge 10 unit SUBCUT AC RF: 0 tamsulosin 0.4 mg Capsule 0.4 mg PO QAM RF: 0 albuterol sulfate 90 mcg/actuation Hfa Aerosol Inhaler 2 puff INHALATION Q6H PRN (Reason: Shortness Of Breath) RF: 0 loratadine 10 mg Tablet 10 mg PO DAILY PRN (Reason: Allergy Symptoms) RF: 0 amlodipine 10 mg tablet 5 mg PO QAM RF: 0 clopidogrel [Plavix] 75 mg Tablet 75 mg PO QAM RF: 0 Lantus Solostar U-100 Insulin 100 unit/mL (3 mL) insulin pen 50 unit SUBCUT BID RF: 0 ProRenal 8 mg iron-800 mcg-1,000 unit tablet 1 tab PO QPM RF: 0 sevelamer carbonate [Renvela] 800 mg tablet 2,400 mg PO TID RF: 0 nitroglycerin [Nitrostat] 0.4 mg Tablet, Sublingual 0.4 mg sublingual UD PRN (Reason: chest pain) Qty: 20 RF: 0 carvedilol [Coreg] 6.25 mg tablet 6.25 mg PO BID Qty: 0 RF: 0 clonidine HCl 0.1 mg tablet 0.1 mg PO QPM RF: 0 clonidine HCl 0.1 mg tablet 0.2 mg PO QAM RF: 0 Eliquis 5 mg Tablet 5 mg PO BID RF: 0 amoxicillin-pot clavulanate [Augmentin] 500-125 mg tablet 1 tab PO DAILY Qty: 10 RF: 0 Referrals Referrals: [facility] [Primary Care Provider] -
[2021-11-09 07:37] LABS: Influenza A virus by PCR Negative (Neg); Influenza B virus by PCR Negative (Neg); RSV by PCR Negative (Neg); SARS CoV2 RNA(COVID-19) InHosp NEGATIVE (Negative)
--- NOTE | 2021-11-09 09:54 | Electrocardiogram Report ---
Test Reason : Blood Pressure : / mmHG Vent. Rate : 049 BPM Atrial Rate : 049 BPM P-R Int : 256 ms QRS Dur : 118 ms QT Int : 506 ms P-R-T Axes : 032 066 029 degrees QTc Int : 457 ms Sinus bradycardia with 1st degree A-V block Non-specific intra-ventricular conduction delay Abnormal ECG When compared with ECG of 13-JUL-2021 03:43, No significant change Confirmed by Grover Garzon ([id number]) on 11/09/2021 9:54:17 AM Referred By: REFERRED SELF Confirmed By:Grover Garzon
[2021-11-09] MEDS ORDERED: GLUCOSE 40% GEL 15 GM TUBE PO PRN (10:00)
[2021-11-09] MEDS ORDERED: GLUCOSE 10 TABS/TUBE PO PRN (10:00)
[2021-11-09] MEDS ORDERED: ALBUTEROL HFA 8 GM INHALER INH PRN (10:00)
[2021-11-09] MEDS ORDERED: GLUCAGON FOR INJ 1 MG VIAL SQ PRN (10:00)
[2021-11-09] MEDS ORDERED: DEXTROSE 50% 50 ML SYRINGE IV PRN (10:00)
[2021-11-09] MEDS ORDERED: CARBOHYDRATES FOR HYPOGLYCEMIA PO PRN (10:00)
[2021-11-09] MEDS ORDERED: ONDANSETRON INJ 2 MG/ML 2 ML VIAL IV PRN (10:00)
[2021-11-09] MEDS ORDERED: ACETAMINOPHEN 325 MG TAB PO PRN (10:00)
--- NOTE | 2021-11-09 10:41 | Nephrology Consultation ---
Date of Consultation November 09, 2021 Assessment & Plan (1) End-stage renal disease on hemodialysis: (2) Hypoxia: (3) Anemia: (4) Pulmonary edema: ESRD on HD TTS at [facility]. Admitted with acute shortness of breath and decreased oxygen saturation while on dialysis, no chest pain. had only 15 minutes dialysis this morning however he was given 500 fluid boluses so in fact his almost 10 kg above his dry weight. Although troponin mildly elevated, no acute EKG changes but has high risk for coronary artery disease. --Plan for 4.5 hours dialysis as his regular schedule UF 5 L or as tolerated to reach close to EDW ( 130 kg) -- continue on Nephrocaps and Renvela with meals -- rt arm precaution ( AVF) -- will consider extra dialysis treatment tomorrow if possible to improve volume status. Will follow Thank you for allowing me to participate in your patient's care. It was a pleasure to see Angel. History of Present Illness Reason for Consultation: End-stage renal disease, admitted with volume overload and respiratory distress. Attending Physician: Karan Grady MD History of Present Illness Mr. Angel Solorio is a 71-year-old male with ESRD on HD, HTN, DM, A fib, CAD brought to ER by EMS with SOB. Nephrology consult was requested to provide urgent hemodialysis for volume overload and respiratory distress. EMS records are reviewed in detail during patient's visit. Angel has been otherwise doing well and went to outpatient dialysis unit this morning for regular dialysis session. He has history of high weight gain between dialysis treatment. His estimated dry weight is 130 kg and this morning his weight was 135 kg. He was started on dialysis but 15 minutes into dialysis he started complaining of shortness of breaths and anxiety. Initially vital signs including blood pressure was stable. oxygen saturation was noted to be around 85-86. BBG was 188. Did not complain of chest pain. EMS was called and while waiting for EMS his blood pressure dropped to systolic blood pressure 90s and heart rate was 52. He vomited once, his oxygen saturation dropped to 76%. upon arrival to ER, blood pressure improved, heart rate staying around 50-52. Oxygen saturation improved to 97% on 4 L oxygen via nasal cannula. Chest x-ray showed pulmonary vascular congestion without overt pulmonary edema. BNP was slightly elevated and troponin was slightly elevated as well. EKG with no acute changes. Has ESRD secondary to diabetes mellitus and hypertension, on HD since 2018, [facility] on a TTS schedule via [facility] av fistula.Currently on 4 hours 30 minutes dialysis, EDW 130 kg, however he always has issues with significant volume overload in between dialysis treatment. He still makes some urine, on Lasix twice a day. Has h/o CAD s/p prior PCI, heart failure with preserved ejection fraction, intermittent atrial fibrillation / atrial flutter with AV node dysfunction, as well obstructive sleep apnea. He reports slight improvement in shortness of breath as he was sitting up in chair, denies chest pain, nausea, diaphoresis. Allergies Allergy/AdvReac Type Severity Reaction Status Date / Time [place] Complexes Allergy Mild rash from Verified 04/05/21 11:00 metal ragweed pollen Allergy Mild [place] Verified 04/05/21 11:00 Home Medications Medication Instructions Recorded Confirmed Type albuterol sulfate 90 mcg/actuation 2 puff INHALATION Q6H PRN 01/06/19 11/09/21 History aerosol inhaler furosemide 40 mg tablet (Lasix) 80 mg PO BID 01/06/19 11/09/21 History insulin aspart U-100 100 unit/mL 10 unit SUBCUT AC 01/06/19 11/09/21 History subcutaneous cartridge (Novolog PenFill U-100 Insulin aspart) loratadine 10 mg tablet 10 mg PO DAILY PRN 01/06/19 11/09/21 History tamsulosin 0.4 mg capsule 0.4 mg PO QAM 01/06/19 11/09/21 History clopidogrel 75 mg tablet (Plavix) 75 mg PO QAM 03/06/19 11/09/21 History insulin glargine 100 unit/mL (3 50 unit SUBCUT BID 03/06/19 11/09/21 History mL) subcutaneous pen (Lantus Solostar U-100 Insulin) vit B complx, C-iron 8 mg-folic 1 tab PO QAM 09/26/19 11/09/21 History acid 800 mcg-D3 1,000 unit-zinc tablet (ProRenal) amlodipine 10 mg tablet 5 mg PO QAM tab 12/18/19 11/09/21 History nitroglycerin 0.4 mg sublingual 0.4 mg SUBLINGUAL UD PRN #20 tab 12/27/19 11/09/21 Rx tablet (Nitrostat) carvedilol 6.25 mg tablet (Coreg) 6.25 mg PO BID #0 tab 08/19/20 11/09/21 Rx apixaban 5 mg tablet (Eliquis) 5 mg PO BID 08/21/20 11/09/21 History clonidine HCl 0.1 mg tablet 0.1 mg PO QPM 08/21/20 11/09/21 History clonidine HCl 0.1 mg tablet 0.2 mg PO QAM 08/21/20 11/09/21 History amiodarone 200 mg tablet 200 mg PO DAILY tab 04/05/21 11/09/21 History rosuvastatin 10 mg tablet 10 mg PO DAILY 04/05/21 11/09/21 History sevelamer carbonate 800 mg tablet 2,400 mg PO TID tab 04/05/21 11/09/21 History (Renvela) Patient History Medical History BPH (benign prostatic hyperplasia) CAD (coronary artery disease) s/p LAD stents (2018 and 2019) CHF (congestive heart failure) Chronic kidney disease FOLLOWS WITH DR. TONY Diabetes mellitus, type 2 Dyslipidemia Environmental allergies REASON FOR INHALER GERD (gastroesophageal reflux disease) Hemodialysis patient FOR 2 YEARS/MONDAY, MONDAY, MONDAY AT [facility] HTN (hypertension) Neuropathy Paroxysmal atrial fibrillation Sinus node dysfunction Sleep apnea does not use CPAP Umbilical hernia Surgical History AV fistula RT ARM History of colonoscopy History of heart artery stent X 2 () History of loop recorder Implanted 05/01/2019 History of tooth extraction S/P CABG (coronary artery bypass graft) 2-VESSEL AT 05/2020 ([place]) Family History Other Hypertension No family history of adverse response to anesthesia Denies family history of Kidney disease Social History Smoking Status: Former smoker Tobacco Type: Cigarettes Cigarettes Per Day: 10; Second Hand Exposure: No; Hx Alcohol Use: Yes Alcohol type: beer Hx Substance Use: No Preferred Language: Kyrgyz Communication Ability: Effective Professional Fee Coder Required: No Beliefs That Will Affect Care: None marital status: Single Current Living Situation: Alone How many Children do You have: 0 Feels Safe at Home: Yes Assistive Devices: Glasses Review of Systems Review of Systems: detailed review of system was otherwise unremarkable except mentioned above in HPI. Physical Exam Constitutional: WD/WN, vitals as above + acute distress, + ill appearing and + morbidly obese Eyes: + anicteric sclerae Neck: normal visual inspection Respiratory: normal respiratory effort, + respiratory distress and + labored breathing; no cough Auscultation: + diminished lung sounds and + rales Cardiovascular: Rate/Rhythm: regular rate and regular rhythm Heart Sounds: normal S1 and normal S2 Extremities: + AV fistula ( with thrill and bruit,); no edema Gastrointestinal (Abdomen): Inspection/Auscultation: + abdomen distended and normal bowel sounds Percussion/Palpation: abdomen soft; abdomen nontender large, obese abdomen with ventral hernia Musculoskeletal: Extremities: extremities normal to inspection Skin: no rashes Neurologic: no focal motor deficits and not confused Psychiatric: Orientation: alert and oriented x 3 Affect: euthymic affect Results & Data ([facility]) Vital Signs (Past 12 Hours) Vital Signs Temp Pulse Pulse Resp BP BP Pulse Ox 11/09/21 09:00 50 L 18 159/70 H 97 11/09/21 08:00 48 L 20 156/70 H 96 11/09/21 06:44 53 L 16 172/73 H 94 11/09/21 06:07 36.5 C 50 L 25 H 184/68 H 84 L PG Care Time/CCT Total # of Minutes Spent Total Time Spent with Patient: Total time spent is greater than 50% in coordination of care (as documented) at patient's floor/unit and/or counseling patient: Coding Level of Care Code 89190 Initial Inpt Care Lvl 3 Diagnoses End-stage renal disease on hemodialysis N18.6; Z99.2 Hypoxia R09.02 Anemia D64.9 Pulmonary edema J81.1
[2021-11-09] MEDS: INSULIN GLARGINE SOLOSTAR 100 UNITS/ML 3 ML PEN SQ SCH ×2 (12:03→20:39)
[2021-11-09] MEDS: SEVELAMER HCL 800 MG TABLET PO SCH ×3 (12:04→20:39)
[2021-11-09] MEDS: ROSUVASTATIN CALCIUM 10 MG TAB PO SCH (12:05)
[2021-11-09] MEDS: FUROSEMIDE 80 MG TAB PO SCH ×2 (12:05→18:02)
[2021-11-09] MEDS: cloNIDine HCL 0.1 MG TAB PO SCH ×2 (12:06→20:37)
[2021-11-09] MEDS: TAMSULOSIN HCL 0.4 MG CAP PO SCH (12:06)
[2021-11-09] MEDS: carvediloL 6.25 MG TAB PO SCH ×2 (12:09→20:38)
[2021-11-09] MEDS: amLODIPine BESYLATE 5 MG TAB PO SCH (12:09)
[2021-11-09] MEDS: AMIODARONE 200 MG TAB PO SCH (12:14)
[2021-11-09] MEDS: INSULIN ASPART PER UNIT SC SCH ×3 (12:39→22:06)
--- NOTE | 2021-11-09 15:20 | History & Physical Report ---
Date of Service November 09, 2021 Assessment & Plan (1) Hypoxia: Plan: Shortness of breath and hypoxemia while at dialysis. He was about 6 kg over his dry weight, then they gave him some IV fluids per nephrology report. Now nearly 10 kg over dry weight. Note: Would not consider this acute CHF exacerbation as given his extremely limited UOP, this is more kidney-related rather than cardiac. - Discussed with Dr. Raza -> Plan for aggressive HD today with plan for 5L removed. Possible further treatments tomorrow as well. - Supplemental O2 PRN; may be able to wean once volume is removed. I think some of this may also be atelectasis or obesity hypoventilation as his CXR doesn't look overtly wet on admission. (2) Umbilical hernia: Plan: Large umbilical hernia which patient reports is being worked up for repair at the [facility] in [place]. Partially reducible in the ER. Moderately tender. Lactate normal on admission. - Discussed with radiology - If any concern for strangulated hernia, would need CT a/p with IV contrast. - Close monitoring; presently not indicative of strangulation (3) Leukocytosis: Plan: No clear infection location. I see he has had multiple elevated WBCs, but also normal as well. Procalcitonin elevated to 1.0. - After HD today, will repeat 2vCXR to get better sense of lung pathology. - No rashes or skin findings, no urinary issues - Monitor (4) HTN (hypertension): Plan: On substantial BP regimen. - Continue home meds: amlodipine, carvedilol, clonidine, Lasix - Monitor BP (5) Diabetes mellitus type 2 in obese: Plan: A1c was 7.6% in 2020. - Lowered home insulin from Lantus 50 mg BID to 30 units BID for reduced caloric intake in the hospital - Hold his usual home meal-time insulin in favor of a fairly aggressive sliding scale (6) Paroxysmal atrial flutter: Plan: Presently in sinus. - Continue amiodarone & beta-ginger - Continue Eliquis (7) CAD (coronary artery disease): Plan: H/o CABG. - Continue Plavix, beta-ginger, statin (8) End-stage renal disease on hemodialysis: Plan: Plan as above for volume removal. Admission and Anticipated Discharge Date Admission Date: November 09, 2021 History of Present Illness Primary Care Provider: [facility] 71yo M w/ hx of ESRD who presents with hypoxemia. He normally gets HD on T-Th-Sat, and he reports that he has had more abdominal distension and shortness of breath over the last 2 days. Yesterday, he reports he had ALTAMIRANO and had to take breaks when moving around. He notes a dry cough which is chronic for him. He notes occasional sputum which he also reports is normal for him. He denies any fevers/chills, headache, chest pain, new/different pains in joints, or leg swelling. In the ER, he was found to have an SpO2 of 85%, and was put on 4L NC with improvement. Allergies Allergy/AdvReac Type Severity Reaction Status Date / Time [place] Complexes Allergy Mild rash from Verified 04/05/21 11:00 metal ragweed pollen Allergy Mild [place] Verified 04/05/21 11:00 Home Medications Medication Instructions Recorded Confirmed Type albuterol sulfate 90 mcg/actuation 2 puff INHALATION Q6H PRN 01/06/19 11/09/21 History aerosol inhaler furosemide 40 mg tablet (Lasix) 80 mg PO BID 01/06/19 11/09/21 History insulin aspart U-100 100 unit/mL 10 unit SUBCUT AC 01/06/19 11/09/21 History subcutaneous cartridge (Novolog PenFill U-100 Insulin aspart) loratadine 10 mg tablet 10 mg PO DAILY PRN 01/06/19 11/09/21 History tamsulosin 0.4 mg capsule 0.4 mg PO QAM 01/06/19 11/09/21 History clopidogrel 75 mg tablet (Plavix) 75 mg PO QAM 03/06/19 11/09/21 History insulin glargine 100 unit/mL (3 50 unit SUBCUT BID 03/06/19 11/09/21 History mL) subcutaneous pen (Lantus Solostar U-100 Insulin) vit B complx, C-iron 8 mg-folic 1 tab PO QAM 09/26/19 11/09/21 History acid 800 mcg-D3 1,000 unit-zinc tablet (ProRenal) amlodipine 10 mg tablet 5 mg PO QAM tab 12/18/19 11/09/21 History nitroglycerin 0.4 mg sublingual 0.4 mg SUBLINGUAL UD PRN #20 tab 12/27/19 11/09/21 Rx tablet (Nitrostat) carvedilol 6.25 mg tablet (Coreg) 6.25 mg PO BID #0 tab 08/19/20 11/09/21 Rx apixaban 5 mg tablet (Eliquis) 5 mg PO BID 08/21/20 11/09/21 History clonidine HCl 0.1 mg tablet 0.1 mg PO QPM 08/21/20 11/09/21 History clonidine HCl 0.1 mg tablet 0.2 mg PO QAM 08/21/20 11/09/21 History amiodarone 200 mg tablet 200 mg PO DAILY tab 04/05/21 11/09/21 History rosuvastatin 10 mg tablet 10 mg PO DAILY 04/05/21 11/09/21 History sevelamer carbonate 800 mg tablet 2,400 mg PO TID tab 04/05/21 11/09/21 History (Renvela) Past Med/Surg History Medical History (Updated 11/09/21 @ 15:06 by Karan Grady MD) BPH (benign prostatic hyperplasia) CAD (coronary artery disease) s/p LAD stents (2018 and 2019) CHF (congestive heart failure) Chronic kidney disease FOLLOWS WITH DR. TONY Diabetes mellitus, type 2 Dyslipidemia Environmental allergies REASON FOR INHALER GERD (gastroesophageal reflux disease) Hemodialysis patient FOR 2 YEARS/MONDAY, MONDAY, MONDAY AT [facility] HTN (hypertension) Neuropathy Paroxysmal atrial fibrillation Sinus node dysfunction Sleep apnea does not use CPAP Umbilical hernia Surgical History AV fistula RT ARM History of colonoscopy History of heart artery stent X 2 () History of loop recorder Implanted 05/01/2019 History of tooth extraction S/P CABG (coronary artery bypass graft) 2-VESSEL AT 05/2020 ([place]) Family History Other Hypertension No family history of adverse response to anesthesia Denies family history of Kidney disease Social History Smoking Status: Former smoker Tobacco Type: Cigarettes Cigarettes Per Day: 10; Second Hand Exposure: No; Hx Alcohol Use: Yes Alcohol type: beer and hard liquor Hx Substance Use: No Preferred Language: Mongolian Communication Ability: Effective [employer] Officer Required: No Beliefs That Will Affect Care: None marital status: Single Current Living Situation: Alone How many Children do You have: 0 Feels Safe at Home: Yes Assistive Devices: Walker Review of Systems Review of Systems: All systems reviewed & are unremarkable except as noted in HPI & below Physical Exam Constitutional: WD/WN, vitals as above Eyes: EOM intact bilaterally; no conjunctival abnormality ENMT: external ear and nose normal, oropharynx normal Neck: trachea midline, no thyromegaly normal visual inspection Respiratory: normal respiratory effort, lungs clear to auscultation no respiratory distress Cardiovascular: RRR, no murmur, no edema Gastrointestinal (Abdomen): Inspection/Auscultation: + abdomen distended, normal bowel sounds and + visible herniation (Midline hernia; partially reducible.); + abdomen abnormal to inspection Musculoskeletal: no cyanosis or clubbing, extremities motor strength 5/5 Skin: no rashes, warm and dry Neurologic: moves all extremities and awake Psychiatric: Orientation: alert, oriented to person and cooperative Results & Data Results & Data ([facility]) Vital Signs (Past 12 Hours) Vital Signs Temp Pulse Pulse Pulse Resp BP BP 11/09/21 14:40 50 L 134/68 11/09/21 14:20 50 L 134/68 11/09/21 14:02 36.8 C 49 L 11/09/21 12:00 51 L 20 152/65 H 11/09/21 09:00 50 L 18 159/70 H 11/09/21 08:00 48 L 20 156/70 H 11/09/21 06:44 53 L 16 172/73 H 11/09/21 06:07 36.5 C 50 L 25 H 184/68 H Pulse Ox 11/09/21 14:40 11/09/21 14:20 11/09/21 14:02 11/09/21 12:00 95 11/09/21 09:00 97 11/09/21 08:00 96 11/09/21 06:44 94 11/09/21 06:07 84 L Code Status & VTE Plan VTE Prophylaxis Plan VTE Prophylaxis will be ordered: Yes PG Care Time/CCT Total # of Minutes Spent Total Time Spent with Patient: Total time spent is greater than 50% in coordination of care (as documented) at patient's floor/unit and/or counseling patient: Coding Level of Care Code 59230 Initial In Care Lvl 3 Diagnoses Hypoxia R09.02 Umbilical hernia K42.9 Diabetes mellitus type 2 in obese E11.69; E66.9 CAD (coronary artery disease) I25.119 Coronary Disease-Associated Artery/Lesion type: [place] artery [place] vs. transplanted heart: [place] heart Associated angina: with unspecified angina Leukocytosis D72.829 Paroxysmal atrial flutter I48.92 HTN (hypertension) I10 Hypertension type: unspecified End-stage renal disease on hemodialysis N18.6; Z99.2 (1) CAD (coronary artery disease) Coronary Disease-Associated Artery/Lesion type: [place] artery [place] vs. transplanted heart: [place] heart Associated angina: with unspecified angina Qualified Code(s): I25.119 - Atherosclerotic heart disease of [place] coronary artery with unspecified angina pectoris (2) HTN (hypertension) Hypertension type: unspecified Qualified Code(s): I10 - Essential (primary) hypertension
[2021-11-09] MEDS: NEPHROCAPS PO SCH (20:37)
[2021-11-09] MEDS: APIXABAN 5 MG TABLET PO SCH (20:38)
--- NOTE | 2021-11-09 21:07 | XRay Report ---
TWO VIEW CHEST CLINICAL HISTORY: Dyspnea. FINDINGS: PA and lateral chest radiographs are compared to study dated performed earlier the same day 11/09/2021. Correlation is made with chest CT dated 09/03/2020. The patient is status post midline torito rnotomy. The heart is enlarged noting atherosclerotic calcification of the thoracic aorta. Mild pulmo nary vascular congestion has modestly improved from previous. Scarring/atelectasis is noted at both l ariana bases. No airspace consolidation or large pleural effusion is identified. There is no pneumothora x. The skeletal structures are osteopenic. Bony thorax appears intact. IMPRESSION: 1. Cardiomegaly with mild pulmonary vascular congestion. This has modestly improved from today's mary ier examination. 2. No airspace consolidation or large pleural effusion is identified. ACT 112: Negative or not required by law. Electronically signed by: Washington Chance M.D. 11/09/2021 9:06 PM
[2021-11-10 06:43] LABS: Hematocrit (blood only) 39.4 % (42-52); Hemoglobin 11.9 g/dL (14.0-18.0); Mean Corpuscular Hemoglobin 30.4 pg (25-34); Mean Corpuscular Hgb Conc 30.2 g/dL (32-36); Mean Corpuscular Volume 100.5 fL (80-100); Mean Platelet Volume 10.6 fL (7.4-10.4); Platelet Count 206 K/uL (130-400); RDW Coefficient of Variation 16.1 % (11.5-14.5); RDW Standard Deviation 58.7 fL (36.4-46.3); Red Blood Count 3.92 M/uL (4.7-6.1); White Blood Count 9.58 K/uL (4.8-10.8)
[2021-11-10 06:56] LABS: Calcium 9.2 mg/dl (8.5-10.1); Creatinine Clr Calc Pharmacy 16.2 ml/min; Est GFR (African American) 10.1 ml/min; Est GFR (Non-African American) 8.7 ml/min; Magnesium 2.4 mg/dl (1.7-2.4); Potassium 4.8 mmol/L (3.5-5.1)
[2021-11-10] MEDS: SEVELAMER HCL 800 MG TABLET PO SCH ×3 (08:09→20:42)
[2021-11-10] MEDS: APIXABAN 5 MG TABLET PO SCH ×2 (08:10→20:41)
[2021-11-10] MEDS: AMIODARONE 200 MG TAB PO SCH (08:10)
[2021-11-10] MEDS: FUROSEMIDE 80 MG TAB PO SCH ×2 (08:10→17:18)
[2021-11-10] MEDS: carvediloL 6.25 MG TAB PO SCH ×2 (08:10→20:41)
[2021-11-10] MEDS: amLODIPine BESYLATE 5 MG TAB PO SCH (08:11)
[2021-11-10] MEDS: ROSUVASTATIN CALCIUM 10 MG TAB PO SCH (08:11)
[2021-11-10] MEDS: TAMSULOSIN HCL 0.4 MG CAP PO SCH (08:11)
[2021-11-10] MEDS: CLOPIDOGREL BISULFATE 75 MG TAB PO SCH (08:11)
[2021-11-10] MEDS: cloNIDine HCL 0.1 MG TAB PO SCH ×2 (08:11→21:39)
[2021-11-10] MEDS: INSULIN GLARGINE SOLOSTAR 100 UNITS/ML 3 ML PEN SQ SCH ×2 (08:12→20:42)
[2021-11-10] MEDS: INSULIN ASPART PER UNIT SC SCH ×4 (08:16→20:43)
--- NOTE | 2021-11-10 08:34 | Hospitalist Progress Note ---
Date of Service November 10, 2021 Assessment & Plan (1) Hypoxia: Plan: Shortness of breath and hypoxemia while at dialysis. He was about 6 kg over his dry weight, then they gave him some IV fluids per nephrology report. Now nearly 10 kg over dry weight. Note: Would not consider this acute CHF exacerbation as given his extremely limited UOP, this is more kidney-related volume overload rather than cardiac. - Dr. Raza -> will follow and asses daily for dialysis needs (2) Umbilical hernia: Plan: Large umbilical hernia which patient reports is being worked up for repair at the [facility] in [place]. Partially reducible in the ER. Moderately tender. Lactate normal on admission. - Discussed with radiology - If any concern for strangulated hernia, would need CT a/p with IV contrast. - Close monitoring; presently not indicative of strangulation (3) Dizziness: Plan: Patient states his dizziness symptoms are similar to what is been told to her vestibular problems by outpatient ENT, Dr. Oneill, patient requested Benadryl for this. Likely the if the patient were to attempted to be discharged his dizzines s will preclude him from leaving subsequently the patient will be given Benadryl and at PT evaluation for possible vestibular therapy will be undertaken (4) Leukocytosis: Plan: No clear infection location as trended elevated white counts in the past l. Procalcitonin elevated to 1.0. -No pneumonia was seen on repeat chest x-ray - No rashes or skin findings, no urinary issues (5) HTN (hypertension): Plan: On substantial BP regimen. - Continue home meds: amlodipine, carvedilol, clonidine, Lasix (6) Diabetes mellitus type 2 in obese: Plan: A1c was 7.6% in 2020. - Lowered home insulin from Lantus 50 mg BID to 30 units BID for reduced caloric intake in the hospital - Hold his usual home meal-time insulin in favor of a fairly aggressive sliding scale (7) Paroxysmal atrial flutter: Plan: Presently in sinus. - Continue amiodarone & beta-ginger - Continue Eliquis (8) CAD (coronary artery disease): Plan: H/o CABG. - Continue Plavix, beta-ginger, statin (9) End-stage renal disease on hemodialysis: Plan: Plan for volume removal. Admission and Anticipated Discharge Date Admission Date: November 09, 2021 Subjective Patient seen in the dialysis unit complaining of vestibular problems feeling dizzy but claims this is similar being treated in the past by ENT Review of Systems Review of Systems: Mild distress and fatigue claims dizziness but this is not spinning sensation more uneasy sensation some worsening with head movement no headache, no visual changes specifically no double vision no speech or swallowing issues no chest pain, pressure or palpitations Reportedly has shortness of breath with exertion no abdominal pain, nausea or vomiting, diarrhea or constipation no dysuria, hematuria or frequency no focal joint pain does have significant lower extremity swelling no back pain, CVA tenderness or radicular pain no bruising, bleeding or rashes no focal signs of weakness or numbness or altered sensation no complaints of anxiety or depression.. Physical Exam Physical Exam: The patient appeared chronically ill and fixated on somatic complaints Vital signs as documented. Head exam is normocephalic atraumatic Neck is without JVD, thyromegaly, or carotid bruits. Lungs are clear diminished at the bases Cardiac exam, Rhythm is regular.. No murmurs, rubs or gallops. Abdominal exam reveals normal bowel sounds, soft non tender, no masses Extremities are 1-2+ edematous and both pedal pulses are present Neurologic exam is alert and oriented, no focal loss of strength or sensation no reproducible vertiginous symptoms although the patient claims these are his vertiginous symptoms Psychologically is without concerns for anxiety or depression.. Results & Data Results & Data ([facility]) Vital Signs (Past 12 Hours) Vital Signs Temp Pulse Pulse Pulse Resp BP Pulse Ox 11/10/21 07:23 97.7 F 48 L 18 139/75 91 11/10/21 03:28 97.9 F 47 L 20 138/70 96 11/10/21 02:45 50 L 11/09/21 23:47 97.7 F 50 L 21 111/74 95 PG Care Time/CCT Total # of Minutes Spent Total Time Spent with Patient: Total time spent is greater than 50% in coordination of care (as documented) at patient's floor/unit and/or counseling patient: Coding Level of Care Code 75978 Subseq Hosp Care Lvl 2 Diagnoses Hypoxia R09.02 Umbilical hernia K42.9 Leukocytosis D72.829 HTN (hypertension) I10 Hypertension type: unspecified Diabetes mellitus type 2 in obese E11.69; E66.9 Paroxysmal atrial flutter I48.92 CAD (coronary artery disease) I25.119 Associated angina: with unspecified angina Coronary Disease-Associated Artery/Lesion type: [place] artery [place] vs. transplanted heart: [place] heart End-stage renal disease on hemodialysis N18.6; Z99.2 Dizziness R42 (1) CAD (coronary artery disease) Associated angina: with unspecified angina Coronary Disease-Associated Artery/Lesion type: [place] artery [place] vs. transplanted heart: [place] heart Qualified Code(s): I25.119 - Atherosclerotic heart disease of [place] coronary artery with unspecified angina pectoris (2) HTN (hypertension) Hypertension type: unspecified Qualified Code(s): I10 - Essential (primary) hypertension
--- NOTE | 2021-11-10 09:39 | Nephrology Progress Note ---
Date of Service November 10, 2021 Assessment & Plan (1) End-stage renal disease on hemodialysis: (2) Hypoxia: (3) Anemia: (4) Pulmonary edema: Plan: ESRD on HD TTS at [facility]. Admitted with acute shortness of breath and decreased oxygen saturation while on dialysis, no chest pain. had only 15 minutes dialysis this morning however he was given 500 fluid boluses so in fact his almost 10 kg above his dry weight. Although troponin mildly elevated, no acute EKG changes but has high risk for coronary artery disease. --Plan for 4.5 hours dialysis today as he had only 2 h HD yesterday, EDW ( 130 kg) -- continue on Nephrocaps and Renvela with meals -- rt arm precaution ( AVF) Will follow Admission and Anticipated Discharge Date Admission Date: November 09, 2021 Subjective was seen and evaluated this morning. Clinically stable, denies any symptoms, SOB better, no CP. BP, electrolyte acceptable.Had only 2 h HD yesterday as he b ecame hypotensive, only 2.3 L UF, still significantly above EDW. Review of Systems Review of Systems: detailed review of system was otherwise unremarkable except mentioned above in HPI. Physical Exam Constitutional: WD/WN, vitals as above + morbidly obese; no acute distress Eyes: + anicteric sclerae Neck: normal visual inspection Respiratory: normal respiratory effort; no respiratory distress and no cough Auscultation: + diminished lung sounds and + rales Cardiovascular: Rate/Rhythm: regular rate and regular rhythm Extremities: + pedal edema and + AV fistula ( Rt RC with thrill and bruit,); no edema Musculoskeletal: Extremities: extremities normal to inspection Skin: no rashes Neurologic: no focal motor deficits and not confused Psychiatric: Orientation: oriented x 3 Affect: euthymic affect Results & Data ([facility]) Vital Signs (Past 12 Hours) Vital Signs Temp Pulse Pulse Pulse Resp BP BP 11/10/21 09:20 49 L 128/62 11/10/21 09:01 50 L 144/69 H 11/10/21 08:52 36.8 C 50 L 11/10/21 07:23 36.5 C 48 L 18 139/75 11/10/21 03:28 36.6 C 47 L 20 138/70 11/10/21 02:45 50 L 11/09/21 23:47 36.5 C 50 L 21 111/74 Pulse Ox 11/10/21 09:20 11/10/21 09:01 11/10/21 08:52 11/10/21 07:23 91 11/10/21 03:28 96 11/10/21 02:45 11/09/21 23:47 95 PG Care Time/CCT Total # of Minutes Spent Total Time Spent with Patient: Total time spent is greater than 50% in coordination of care (as documented) at patient's floor/unit and/or counseling patient: Coding Level of Care Code 76242 Subseq Hosp Care Lvl 3 Diagnoses End-stage renal disease on hemodialysis N18.6; Z99.2 Hypoxia R09.02 Anemia D64.9 Pulmonary edema J81.1
[2021-11-10] MEDS ORDERED: diphenhydrAMINE Capsule 25 MG CAP PO PRN (16:01)
[2021-11-10] MEDS: NEPHROCAPS PO SCH (20:41)
[2021-11-11 06:53] LABS: Hematocrit (blood only) 37.1 % (42-52); Hemoglobin 11.5 g/dL (14.0-18.0); Mean Corpuscular Hemoglobin 30.3 pg (25-34); Mean Corpuscular Volume 97.6 fL (80-100); Mean Platelet Volume 10.7 fL (7.4-10.4); Platelet Count 186 K/uL (130-400); RDW Standard Deviation 56.9 fL (36.4-46.3); White Blood Count 11.15 K/uL (4.8-10.8)
[2021-11-11 07:22] LABS: Albumin Level 3.9 gm/dl (3.4-5.0); BUN Creatinine Ratio 6.6 (10-20); Calcium 9.2 mg/dl (8.5-10.1); Creatinine Clr Calc Pharmacy 18.2 ml/min; Est GFR (African American) 11.7 ml/min; Est GFR (Non-African American) 10.1 ml/min; Phosphorus 6.1 mg/dl (2.5-4.9); Potassium 4.6 mmol/L (3.5-5.1)
[2021-11-11] MEDS: INSULIN GLARGINE SOLOSTAR 100 UNITS/ML 3 ML PEN SQ SCH (08:38)
[2021-11-11] MEDS: INSULIN ASPART PER UNIT SC SCH ×3 (08:39→17:03)
[2021-11-11] MEDS: SEVELAMER HCL 800 MG TABLET PO SCH ×2 (08:53→15:47)
[2021-11-11] MEDS: TAMSULOSIN HCL 0.4 MG CAP PO SCH (08:54)
[2021-11-11] MEDS: CLOPIDOGREL BISULFATE 75 MG TAB PO SCH (08:54)
[2021-11-11] MEDS: APIXABAN 5 MG TABLET PO SCH (08:54)
[2021-11-11] MEDS: amLODIPine BESYLATE 5 MG TAB PO SCH (08:54)
[2021-11-11] MEDS: ROSUVASTATIN CALCIUM 10 MG TAB PO SCH (08:54)
[2021-11-11] MEDS: AMIODARONE 200 MG TAB PO SCH (08:55)
[2021-11-11] MEDS: FUROSEMIDE 80 MG TAB PO SCH ×2 (08:55→16:58)
[2021-11-11] MEDS ORDERED: cloNIDine HCL 0.1 MG TAB PO SCH (09:00)
--- NOTE | 2021-11-11 11:17 | Nephrology Progress Note ---
Date of Service November 11, 2021 Assessment & Plan (1) End-stage renal disease on hemodialysis: (2) Hypoxia: (3) Anemia: (4) Pulmonary edema: Plan: ESRD on HD TTS at [facility]. Admitted with acute shortness of breath and decreased oxygen saturation while on dialysis, no chest pain. had only 15 minutes dialysis this morning however he was given 500 fluid boluses so in fact his almost 10 kg above his dry weight. Although troponin mildly elevated, no acute EKG changes but has high risk for coronary artery disease. --Plan for 4.5 hours dialysis today, Plan for 4 L UF to reach his EDW ( 130 kg) -- continue on Nephrocaps and Renvela with meals -- rt arm precaution ( AVF) -- he was already started on Benadryl for dizziness which she thinks helps with his dizziness. If after dialysis clinically he is stable, okay to be discharged and he can have next dialysis on Monday at outpatient dialysis unit. Will follow Admission and Anticipated Discharge Date Admission Date: November 09, 2021 Subjective was seen and evaluated this morning. He has been complaining of some vertigo and dizziness occasionally although blood pressure has been relatively stable. Denies shortness of breath or CP. BP, electrolyte acceptable.Continues to be above his dry weight but it has been difficult to do the UF as blood pressure dropped during dialysis and he was feeling dizzy. Review of Systems Review of Systems: detailed review of system was otherwise unremarkable except mentioned above in HPI. Physical Exam Constitutional: WD/WN, vitals as above + morbidly obese; no acute distress Eyes: + anicteric sclerae Neck: normal visual inspection Respiratory: normal respiratory effort; no respiratory distress and no cough Auscultation: + diminished lung sounds and + rales Cardiovascular: Rate/Rhythm: regular rate and regular rhythm Extremities: + pedal edema and + AV fistula ( Rt RC with thrill and bruit,); no edema Musculoskeletal: Extremities: extremities normal to inspection Skin: no rashes Neurologic: no focal motor deficits and not confused Psychiatric: Orientation: oriented x 3 Affect: euthymic affect Results & Data ([facility]) Vital Signs (Past 12 Hours) Vital Signs Temp Pulse Pulse Resp BP BP Pulse Ox 11/11/21 10:45 67 113/68 11/11/21 10:15 53 L 133/72 06/30/22 09:58 36.7 C 62 06/30/22 07:04 36.5 C 45 L 17 129/72 91 11/11/21 06:09 46 L 11/11/21 04:22 36.4 C L 118 H 18 131/77 94 11/11/21 00:20 36.5 C 48 L 14 133/76 96 PG Care Time/CCT Total # of Minutes Spent Total Time Spent with Patient: Total time spent is greater than 50% in coordination of care (as documented) at patient's floor/unit and/or counseling patient: Coding Level of Care Code 78482 Subseq Hosp Care Lvl 3 Diagnoses End-stage renal disease on hemodialysis N18.6; Z99.2 Hypoxia R09.02 Anemia D64.9 Pulmonary edema J81.1
--- NOTE | 2021-11-14 15:55 | Discharge Summary ---
Date of Service November 11, 2021 Admission HPI Per Admitting Provider 71yo M w/ hx of ESRD who presents with hypoxemia. He normally gets HD on T-Th-Sat, and he reports that he has had more abdominal distension and shortness of breath over the last 2 days. Yesterday, he reports he had ALTAMIRANO and had to take breaks when moving around. He notes a dry cough which is chronic for him. He notes occasional sputum which he also reports is normal for him. He denies any fevers/chills, headache, chest pain, new/different pains in joints, or leg swelling. In the ER, he was found to have an SpO2 of 85%, and was put on 4L NC with improvement. Principal Diagnosis Intravascular fluid overload in need of dialysis Dizziness associate with dialysis Dizziness associate with lower blood pressuresadjustment of medication Discharge Exam The patient appeared stable Vital signs as documented. Lungs are clear to auscultation and appear unlabored Cardiac exam, Rhythm is regular but bradycardic at times No murmurs, rubs or gallops. Abdominal exam reveals normal bowel sounds, soft non tender, no masses Extremities are 1+ edematous and both pedal pulses are normal. Neurologic exam is alert and oriented, no focal loss of strength or sensation Skin is without bruises or rashes Psychologically is without concerns for anxiety or depression. Discharge Data Allergies Allergy/AdvReac Type Severity Reaction Status Date / Time [place] Complexes Allergy Mild rash from Verified 04/05/21 11:00 metal ragweed pollen Allergy Mild [place]GE[place] Verified 04/05/21 11:00 Consultations 11/09/21 07:17 ED Decision to Admit Stat 11/09/21 10:00 Consult Nephrology Routine Hospital Course (1) Hypoxia: Shortness of breath and hypoxemia while at dialysis. He was about 6 kg over his dry weight, then they gave him some IV fluids per nephrology report. Now nearly 10 kg over dry weight. Note: Would not consider this acute CHF exacerbation as given his extremely limited UOP, this is more kidney-related volume overload rather than cardiac. - (2) Umbilical hernia: Large umbilical hernia which patient reports is being worked up for repair at the [facility] in [place]. Partially reducible in the ER. Moderately tender. Lactate normal on admission. (3) Dizziness: Patient states his dizziness symptoms are similar to what is been told to her vestibular problems by outpatient ENT, Dr. Oneill, patient requested Benadryl for this. Likely the if the patient were to attempted to be discharged his dizziness will preclude him from leaving subsequently the patient was given Benadryl by his request encouraged outpatient audiology evaluation if persistent (4) Leukocytosis: No clear infection location as trended elevated white counts in the past l. Procalcitonin elevated to 1.0. -No pneumonia was seen on repeat chest x-ray - No rashes or skin findings, no urinary issues (5) HTN (hypertension): On substantial BP regimen. - Continue home meds: amlodipine, carvedilol, clonidine, Lasix reduced dose of clonidine (6) Diabetes mellitus type 2 in obese: A1c was 7.6% in 2020. Continue home insulin regiment (7) Paroxysmal atrial flutter: Presently in sinus. - Continue amiodarone & beta-ginger - Continue Eliquis (8) CAD (coronary artery disease): H/o CABG. - Continue Plavix, beta-ginger, statin (9) End-stage renal disease on hemodialysis: Total Time Total Time Spent Total Time Spent (In Minutes): It required greater than 30 minutes to prepare this patient for discharge Discharge Plan Discharge Items Patient Disposition: Home - Self-Care Reason For Visit: VOLUME OVERLOAD, HYPOXEMIA Discharge Diagnosis: intravascular volume overload from renal failure esrd on dialysis dizziness bradycardia Activity: Resume your previous activity Non-emergency contact: Primary Care Provider, [employer] and Manager Desktop Call non-emergency contact if: your symptoms worsen and you have a fever Follow-up/Referrals: [facility] [Primary Care Provider] - Diet: Dialysis Renal Addtl Attending Provider Instructions: Mr. Solorio we have made some reductions in medications that could help improve your heart rate and reduce your dizziness. Please follow-up with your typical schedule dialysis to manage your body fluid and subsequently your shortness of breath. Please call for follow-up appointment with your primary care physician within a week of discharge Pending Studies at Discharge: No Stand-Alone Forms: My [employer], Smoking Cessation Medications and DC Order Prescriptions: Continued amiodarone 200 mg tablet 200 mg PO DAILY RF: 0 rosuvastatin 10 mg tablet 10 mg PO DAILY RF: 0 furosemide [Lasix] 40 mg Tablet 80 mg PO BID RF: 0 insulin aspart U-100 [Novolog PenFill U-100 Insulin] 100 unit/mL Cartridge 10 unit SUBCUT AC RF: 0 tamsulosin 0.4 mg Capsule 0.4 mg PO QAM RF: 0 albuterol sulfate 90 mcg/actuation Hfa Aerosol Inhaler 2 puff INHALATION Q6H PRN (Reason: Shortness Of Breath) RF: 0 loratadine 10 mg Tablet 10 mg PO DAILY PRN (Reason: Allergy Symptoms) RF: 0 clopidogrel [Plavix] 75 mg Tablet 75 mg PO QAM RF: 0 insulin glargine [Lantus Solostar U-100 Insulin] 100 unit/mL (3 mL) insulin pen 50 unit SUBCUT BID RF: 0 ProRenal 8 mg iron-800 mcg-1,000 unit tablet 1 tab PO QAM RF: 0 sevelamer carbonate [Renvela] 800 mg tablet 2,400 mg PO TID RF: 0 nitroglycerin [Nitrostat] 0.4 mg Tablet, Sublingual 0.4 mg sublingual UD PRN (Reason: chest pain) Qty: 20 RF: 0 carvedilol [Coreg] 6.25 mg tablet 6.25 mg PO BID Qty: 0 RF: 0 clonidine HCl 0.1 mg tablet 0.1 mg PO QPM RF: 0 Eliquis 5 mg Tablet 5 mg PO BID RF: 0 Changed clonidine HCl 0.1 mg tablet 0.1 mg PO QAM Qty: 0 RF: 0 amlodipine 5 mg tablet 5 mg PO DAILY Qty: 30 RF: 0 Discharge Orders: Discharge Order (Routine); Ordered 11/11/21 Ordered By: Prince Taylor Admission Data Admit Date/Time: 11/09/21 08:14 Attending Provider: Prince Taylor Admit Provider: Karan Grady Primary Care Provider: [facility] Other Providers: Karan Grady ; [place] ; [facility] Other Interventions: Discharge Summary Assessment (RN) Last Done: 11/11/21 16:26 Coding Level of Care Code D/C DAY MANAGEMENT >30 MINS Diagnoses Hypoxia R09.02 Umbilical hernia K42.9 Dizziness R42 Leukocytosis D72.829 HTN (hypertension) I10 Hypertension type: unspecified Diabetes mellitus type 2 in obese E11.69; E66.9 Paroxysmal atrial flutter I48.92 CAD (coronary artery disease) I25.119 Coronary Disease-Associated Artery/Lesion type: [place] artery [place] vs. transplanted heart: [place] heart Associated angina: with unspecified angina End-stage renal disease on hemodialysis N18.6; Z99.2
== END 2021-11-11 17:20 | disposition home or self-care (01) | DRG 291 ==
LOC: ED 06:04 → INTOOBSV 08:14 → EDINP 08:14 → SUATTDRO 08:14 → EDINP 09:59 → 2S 17:43

== ENCOUNTER 2021-11-23 00:58 | Observation (INO) ==
[2021-11-23] MEDS ORDERED: fentaNYL citrate 100 MCG/2 ML VIAL IV STA ×2 (01:59→05:12)
[2021-11-23] MEDS ORDERED: ONDANSETRON INJ 2 MG/ML 2 ML VIAL IV STA ×2 (01:59→03:39)
--- NOTE | 2021-11-23 02:08 | Emergency Department Note ---
Impression & Plan Intractable nausea and vomiting, Intractable abdominal pain Admit to the [facility] ED Provider Note NAME: LYNN BENZ AGE: 71 SEX: M ARRIVES VIA: Ambulance INFORMANT: Patient ED PROVIDER(S): Tameka Andrew DO CHIEF COMPLAINT: Abdominal pain PLAN: Disposition: Admit to the [facility] Condition: Fair MEDICAL DECISION MAKING: This is a 71-year-old male patient on dialysis who presents to the emergency department with abdominal pain, nausea, vomiting and diarrhea. The patient was due for dialysis this morning. He received multiple doses of analgesia and antiemetics but his symptoms persist. CT scan of the abdomen/pelvis was unre markable. Despite not taking his Lasix for the past couple of days, he does not appear to be significantly fluid overloaded. Electrolytes are fairly unremarkable. The patient has decided to stop taking his Eliquis stating that he already takes Plavix and gets heparin during his dialysis treatments and feels that his blood may be too thin. The patient is concerned with being discharged home because of his feelings of lightheadedness and believes he may not be safe. [facility] for [facility] management. Triage Nursing notes reviewed and agree with them. Prior medical records reviewed Vital Signs: reviewed and remarkable for hypertension Differential diagnosis: Foodborne illness, viral illness, bowel obstruction, dehydration ER treatment provided: IV Zofran x2 IV fentanyl x2 Diagnostics interpreted by me: ECG: Normal sinus rhythm at a rate of [address] segment elevation or signs of ischemia. Cardiac Monitoring: Normal sinus rhythm at a rate of 66 Laboratory studies: See below Imaging studies: As per radiology Please see radiology report HPI: 71/M arrives for evaluation of abdominal pain. The patient went to the [facility] cardiology office earlier today for an appointment where he underwent EKG which was unremarkable according the patient. He had a cheeseburger following the appointment and then developed some nausea and abdominal pain that he rates a 6 out of 10 this evening. He thought it may be from his usual GERD but the pain seemed to progress. He does describe some relief of the pain when he passes gas. However, the patient developed worsening nausea and vomiting and some loose stools while here in the emergency department. Patient also describes being out of his Lasix over the past 3 days and has had some increasing shortness of breath. The patient has not been taking his Eliquis over the past 1 week because he believes his blood is too thin. The patient did not take his evening dose of blood pressure medications because he was too nauseated. ROS: See above HPI for pertinent positives & negatives. A total of 10 systems reviewed and were otherwise negative. PAST MEDICAL HISTORY:See Below PAST SURGICAL HISTORY:See Below FAMILY HISTORY:See Below SOCIAL HISTORY:See Below HOME MEDICATIONS:See list ALLERGIES:See list VITALS:See Below PHYSICAL EXAMINATION: HEENT: Head - normocephalic and atraumatic. Pupils are equal, round, and reactive to light. Extraocular eye muscles are intact, and sclera are anicteric. Nose - moist nasal mucosa without discharge. Mouth - moist buccal mucosa. Oropharynx is nonerythematous and there is no tonsillar exudate or edema noted. Neck: Supple; no cervical lymphadenopathy appreciated. Heart: Regular rate and rhythm. There is a normal S1 and S2 with no murmurs, clicks, or gallops appreciated. Lungs: Clear to auscultation bilaterally with no wheezes, rales, or rhonchi. Abdomen: Soft, protuberant, diffusely tender, periumbilical hernia is moderately distended. There were normal bowel sounds. Extremities: No evidence of cyanosis, clubbing, or edema. There are easily palpable peripheral pulses. Skin: warm and diaphoretic with good turgor and no rashes. ED COURSE: Times/Reassessments: 0115: The patient was evaluated in room A 11 laboratory studies were drawn as above. An order was placed for continuous cardiac monitoring. Patient was in a normal sinus rhythm at a rate of 66. A twelve- lead EKG was obtained as described above. The patient had a large diarrheal bowel movement and had nausea and vomiting. Patient was given 100 mcg of IV fentanyl for the abdominal pain and 4 mg of IV Zofran. The patient went for CT scan of the abdomen/pelvis. Upon returning from radiology, the patient continued to complain of moderate abdominal pain and nausea. He was given a repeat dose of the IV Zofran and IV fentanyl. I reviewed the results of the laboratory studies with the patient evaluated for the results of the CT scan. The patient remained significantly nauseated and lightheaded. He also continued to complain of diffuse abdominal pain. Tameka Andrew DO Past Med/Surg History Medical History (Updated 11/23/21 @ 07:51 by Tameka Andrew DO) BPH (benign prostatic hyperplasia) CAD (coronary artery disease) s/p LAD stents (2018 and 2019) CHF (congestive heart failure) Chronic kidney disease FOLLOWS WITH DR. TONY Diabetes mellitus, type 2 Dyslipidemia Environmental allergies REASON FOR INHALER GERD (gastroesophageal reflux disease) Hemod[facility] FOR 2 YEARS[facility] HTN (hypertension) Neuropathy Paroxysmal atrial fibrillation Sinus node dysfunction Sleep apnea does not use CPAP Umbilical hernia Surgical History AV fistula RT ARM History of colonoscopy History of heart artery stent X 2 () History of loop recorder Implanted 05/01/2019 History of tooth extraction S/P CABG (coronary artery bypass graft) 2-VESSEL AT 05/2020 ([facility]) Family History Other Hypertension No family history of adverse response to anesthesia Denies family history of Kidney disease Social History Smoking Status: Former smoker Tobacco Type: Cigarettes Cigarettes Per Day: 10; Second Hand Exposure: No; Hx Alcohol Use: Yes Alcohol type: beer and hard liquor Hx Substance Use: No Preferred Language: [place] Communication Ability: Effective Garbage Stoker Required: No Beliefs That Will Affect Care: None marital status: Single Current Living Situation: Alone How many Children do You have: 0 Feels Safe at Home: Yes Assistive Devices: Walker Allergies Allergies Allergy/AdvReac Type Severity Reaction Status Date / Time [place] Complexes Allergy Mild rash from Verified 11/23/21 01:29 metal ragweed pollen Allergy Mild [place] Verified 11/23/21 01:29 Home Meds Home Medications Medication Instructions Recorded Confirmed albuterol sulfate 90 mcg/actuation 2 puff INHALATION Q6H PRN 01/06/19 11/23/21 aerosol inhaler furosemide 40 mg tablet (Lasix) 80 mg PO BID 01/06/19 11/23/21 insulin aspart U-100 100 unit/mL 10 unit SUBCUT AC 01/06/19 11/23/21 subcutaneous cartridge (Novolog PenFill U-100 Insulin aspart) loratadine 10 mg tablet 10 mg PO DAILY PRN 08/25/19 07/12/22 tamsulosin 0.4 mg capsule 0.4 mg PO QAM 01/06/19 11/23/21 clopidogrel 75 mg tablet (Plavix) 75 mg PO QAM 03/06/19 11/23/21 insulin glargine 100 unit/mL (3 50 unit SUBCUT BID 03/06/19 11/23/21 mL) subcutaneous pen (Lantus Solostar U-100 Insulin) vit B complx, C-iron 8 mg-folic 1 tab PO QAM 09/26/19 11/23/21 acid 800 mcg-D3 1,000 unit-zinc tablet (ProRenal) apixaban 5 mg tablet (Eliquis) 5 mg PO BID 08/21/20 11/23/21 amiodarone 200 mg tablet 200 mg PO DAILY tab 04/05/21 11/23/21 rosuvastatin 10 mg tablet 10 mg PO DAILY 04/05/21 11/23/21 sevelamer carbonate 800 mg tablet 2,400 mg PO TID tab 04/05/21 11/23/21 (Renvela) clonidine HCl 0.2 mg tablet 0.2 mg PO BID 11/23/21 11/23/21 Previous Rx's Medication Instructions Recorded nitroglycerin 0.4 mg sublingual 0.4 mg SUBLINGUAL UD PRN #20 tab 12/27/19 tablet (Nitrostat) carvedilol 6.25 mg tablet (Coreg) 6.25 mg PO BID #0 tab 08/19/20 amlodipine 5 mg tablet 5 mg PO DAILY #30 tab 11/11/21 Results & Data (ED) Vital Signs Vital Signs - 24 hr 11/23/21 01:11 11/23/21 01:17 11/23/21 01:20 Temperature 37 C Temperature Source Oral Pulse Rate 64 66 65 Pulse Rate [Apical] Pulse Rate from SpO2 Sensor Pulse Rhythm Regular Pulse Rhythm [Apical] Pulse Strength Normal Pulse Strength [Apical] Respiratory Rate 17 18 20 Respiratory Effort / Characteristics Non-Labored Respiratory Depth Normal Respiratory Pattern Regular Blood Pressure 151/71 H Blood Pressure [Left Arm] Blood Pressure Mean 97 Blood Pressure Mean [Left Arm] Blood Pressure Position [Left Arm] Pulse Oximetry 92 Oxygen Delivery Method Nasal Cannula Oxygen Flow Rate Sepsis Recent Fever Within 48 Hours No Sepsis New/Unexplained Change in Mental Status No Sepsis Action Taken by Nursing No Action Required 11/23/21 01:59 11/23/21 02:08 11/23/21 02:10 Temperature Temperature Source Pulse Rate 87 63 Pulse Rate [Apical] Pulse Rate from SpO2 Sensor 64 63 Pulse Rhythm Pulse Rhythm [Apical] Pulse Strength Pulse Strength [Apical] Respiratory Rate 20 19 Respiratory Effort / Characteristics Respiratory Depth Respiratory Pattern Blood Pressure Blood Pressure [Left Arm] Blood Pressure Mean Blood Pressure Mean [Left Arm] Blood Pressure Position [Left Arm] Pulse Oximetry 92 93 94 Oxygen Delivery Method Nasal Cannula Oxygen Flow Rate 2 Sepsis Recent Fever Within 48 Hours Sepsis New/Unexplained Change in Mental Status Sepsis Action Taken by Nursing 11/23/21 02:13 11/23/21 02:20 11/23/21 03:32 Temperature 36.5 C Temperature Source Oral Pulse Rate 62 60 Pulse Rate [Apical] 74 64 Pulse Rate from SpO2 Sensor 61 Pulse Rhythm Pulse Rhythm [Apical] Regular Pulse Strength Pulse Strength [Apical] Respiratory Rate 16 16 20 Respiratory Effort / Characteristics Non-Labored Non-Labored Respiratory Depth Normal Normal Respiratory Pattern Blood Pressure 167/73 H Blood Pressure [Left Arm] 167/73 H Blood Pressure Mean 104 Blood Pressure Mean [Left Arm] 104 Blood Pressure Position [Left Arm] Sitting Pulse Oximetry 93 92 93 Oxygen Delivery Method Nasal Cannula Room Air Oxygen Flow Rate 3 Sepsis Recent Fever Within 48 Hours Sepsis New/Unexplained Change in Mental Status Sepsis Action Taken by Nursing 11/23/21 03:45 11/23/21 03:46 11/23/21 04:24 Temperature Temperature Source Pulse Rate Pulse Rate [Apical] Pulse Rate from SpO2 Sensor Pulse Rhythm Pulse Rhythm [Apical] Pulse Strength Pulse Strength [Apical] Respiratory Rate Respiratory Effort / Characteristics Respiratory Depth Respiratory Pattern Blood Pressure Blood Pressure [Left Arm] 185/74 H Blood Pressure Mean Blood Pressure Mean [Left Arm] 111 Blood Pressure Position [Left Arm] Sitting Pulse Oximetry 88 L 96 Oxygen Delivery Method Room Air Nasal Cannula Oxygen Flow Rate 3 Sepsis Recent Fever Within 48 Hours Sepsis New/Unexplained Change in Mental Status Sepsis Action Taken by Nursing 11/23/21 05:56 Temperature Temperature Source Pulse Rate Pulse Rate [Apical] 61 Pulse Rate from SpO2 Sensor Pulse Rhythm Pulse Rhythm [Apical] Regular Pulse Strength Pulse Strength [Apical] Normal Respiratory Rate 18 Respiratory Effort / Characteristics Non-Labored Respiratory Depth Normal Respiratory Pattern Blood Pressure Blood Pressure [Left Arm] Blood Pressure Mean Blood Pressure Mean [Left Arm] Blood Pressure Position [Left Arm] Pulse Oximetry 96 Oxygen Delivery Method Nasal Cannula Oxygen Flow Rate 3 Sepsis Recent Fever Within 48 Hours Sepsis New/Unexplained Change in Mental Status Sepsis Action Taken by Nursing Laboratory Data Result diagrams: 11/23/21 01:30 11/23/21 01:30 Lab Results 11/23/21 11/23/21 11/23/21 Range/Units 01:30 01:30 01:30 WBC 11.06 H (4.8-10.8) K/ul RBC 3.83 L (4.63-6.08) M/uL Hgb 11.6 L (14.0-18.0) g/dl Hct 36.8 L (40.1-51.0) % MCV 96.1 (80.0-100.0) fL MCH 30.3 (25.0-34.0) pg MCHC 31.5 L (32.0-36.0) g/dL RDW Std Deviation 53.3 H (36.4-46.3) fL RDW Coeff of Atif 15.1 H (11.5-14.5) % Plt Count 226 (130-400) K/uL MPV 10.7 (9.4-12.4) fL Immature Gran % (Auto) 0.6 % Neut % (Auto) 72.6 % Lymph % (Auto) 12.8 % Lucas % (Auto) 10.0 % Eos % (Auto) 3.3 % Baso % (Auto) 0.7 % Neut # (Auto) 8.02 H (1.4-6.5) K/uL Lymph # (Auto) 1.42 (1.2-3.4) K/uL Lucas # (Auto) 1.11 H (0.24-0.82) K/uL Eos # (Auto) 0.36 (0-0.50) K/uL Baso # (Auto) 0.08 (0-0.2) K/uL Immature Gran # (Auto) 0.07 H (0.00-0.02) K/uL Sodium Cancelled 136 Potassium Cancelled 4.4 Chloride Cancelled 95 L Carbon Dioxide Cancelled 25 Anion Gap Cancelled 16 H BUN Cancelled 71 H Creatinine Cancelled 8.54 H* Est Cr Clr Drug Dosing Cancelled 10.9 Est GFR ( Amer) Cancelled 6.6 Est GFR (Non-Af Amer) Cancelled 5.7 BUN/Creatinine Ratio Cancelled 8.3 L Glucose Cancelled 197 H Calcium Cancelled 9.7 Total Bilirubin Cancelled 0.4 AST Cancelled 12 L ALT Cancelled 10 Alkaline Phosphatase Cancelled 40 Total Protein Cancelled 7.5 Albumin Cancelled 3.9 Globulin Cancelled 3.6 Albumin/Globulin Ratio Cancelled 1.1 Lipase Cancelled 75 Administered Medications Discontinued Medications Fentanyl Citrate (Fentanyl Citrate 100 Mcg/2 Ml Vial) 100 mcg IV NOW STA Stop: 11/23/21 02:00 Last Admin: 11/23/21 02:06 Dose: 100 mcg Documented by: [id number] Fentanyl Citrate (Fentanyl Citrate 100 Mcg/2 Ml Vial) 100 mcg IV NOW STA Stop: 11/23/21 05:13 Last Admin: 11/23/21 05:18 Dose: 100 mcg Documented by: [id number] Ioversol (Optiray 320 100ml) 100 ml IV ONCE ONE Stop: 11/23/21 03:28 Last Admin: 11/23/21 03:28 Dose: 93 ml Documented by: [id number] Ondansetron HCl (Ondansetron Inj 2 Mg/Ml 2 Ml Vial) 4 mg IV NOW STA Stop: 11/23/21 02:00 Last Admin: 11/23/21 02:06 Dose: 4 mg Documented by: [id number] Ondansetron HCl (Ondansetron Inj 2 Mg/Ml 2 Ml Vial) 4 mg IV NOW STA Stop: 11/23/21 03:40 Last Admin: 11/23/21 03:43 Dose: 4 mg Documented by: [id number] Imaging Data Radiologist's Impression: Abdomen/Pelvis CT 11/23/21 01:59 CT abd pelvis IV con only CLINICAL HISTORY: diffuse abd pain n/v/d TECHNIQUE: Helical axial images of the abdomen and pelvis were obtained and displayed. Automated dose lowering techniques and/or adjustment according to patient size were utilized for this exam. This exam was performed with intravenous contrast. CT DOSE: 2086.54 mGy.cm COMPARISON: None available at the time of this dictation. FINDINGS: Lower chest: Multiple calcified coronary arteries are noted. Liver: Unremarkable. No focal lesions are seen. Gallbladder and biliary tree: No calcified gallstones. Normal caliber wall. No intra- or extrahepatic biliary ductal dilation. Pancreas: Fatty replacement of the pancreas is seen. Spleen: Splenule is incidentally noted. Adrenals: Unremarkable. Kidneys and ureters: Kidneys are atrophic in appearance with cortical thinning. A cyst is seen on the right. Bladder: Limited evaluation due to underdistention. Reproductive organs: Prostatomegaly is seen. Bowel: Unremarkable appearance of the bowel. The appendix is normal. No bowel obstruction is seen. Lymph nodes Retroperitoneal: Unremarkable. Mesenteric: Unremarkable. Pelvic: Unremarkable. Peritoneum: Normal. Vessels: Atherosclerotic calcifications are seen. Abdominal wall: A fat-containing umbilical hernia is seen. Bones: Degenerative changes in the visualized spine. IMPRESSION: No acute abnormalities to explain abdominal pain. In particular, no evidence of appendicitis or obstruction is seen. ACT 112: Negative or not required by law. Electronically signed by: Lynn Wilson M.D. 11/23/2021 7:13 AM Discharge Plan Visit Data Chief Complaint: Abdominal Pain ED Provider: Tameka Andrew Discharge Problem: Intractable nausea and vomiting, Intractable abdominal pain Forms Stand Alone Forms: My [facility] [place] [facility] Prescriptions Prescriptions: No Action amiodarone 200 mg tablet 200 mg PO DAILY RF: 0 rosuvastatin 10 mg tablet 10 mg PO DAILY RF: 0 furosemide [Lasix] 40 mg Tablet 80 mg PO BID RF: 0 insulin aspart U-100 [Novolog PenFill U-100 Insulin] 100 unit/mL Cartridge 10 unit SUBCUT AC RF: 0 tamsulosin 0.4 mg Capsule 0.4 mg PO QAM RF: 0 albuterol sulfate 90 mcg/actuation Hfa Aerosol Inhaler 2 puff INHALATION Q6H PRN (Reason: Shortness Of Breath) RF: 0 loratadine 10 mg Tablet 10 mg PO DAILY PRN (Reason: Allergy Symptoms) RF: 0 clopidogrel [Plavix] 75 mg Tablet 75 mg PO QAM RF: 0 insulin glargine [Lantus Solostar U-100 Insulin] 100 unit/mL (3 mL) insulin pen 50 unit SUBCUT BID RF: 0 ProRenal 8 mg iron-800 mcg-1,000 unit tablet 1 tab PO QAM RF: 0 sevelamer carbonate [Renvela] 800 mg tablet 2,400 mg PO TID RF: 0 nitroglycerin [Nitrostat] 0.4 mg Tablet, Sublingual 0.4 mg sublingual UD PRN (Reason: chest pain) Qty: 20 RF: 0 carvedilol [Coreg] 6.25 mg tablet 6.25 mg PO BID Qty: 0 RF: 0 Eliquis 5 mg Tablet 5 mg PO BID RF: 0 amlodipine 5 mg tablet 5 mg PO DAILY Qty: 30 RF: 0 clonidine HCl 0.2 mg Tablet 0.2 mg PO BID RF: 0 Referrals Referrals: [facility] [Primary Care Provider] -
[2021-11-23 02:11] LABS: Basophils # (auto) 0.08 K/uL (0-0.2); Basophils % (auto) 0.7 %; Eosinophils # (auto) 0.36 K/uL (0-0.50); Eosinophils % (auto) 3.3 %; Hematocrit (blood only) 36.8 % (40.1-51.0); Hemoglobin 11.6 g/dl (14.0-18.0); Immature Granulocytes # (auto) 0.07 K/uL (0.00-0.02); Immature Granulocytes % (auto) 0.6 %; Lymphocytes # (auto) 1.42 K/uL (1.2-3.4); Lymphocytes % (auto) 12.8 %; Mean Corpuscular Hemoglobin 30.3 pg (25.0-34.0); Mean Corpuscular Hgb Conc 31.5 g/dL (32.0-36.0); Mean Corpuscular Volume 96.1 fL (80.0-100.0); Mean Platelet Volume 10.7 fL (9.4-12.4); Monocytes # (auto) 1.11 K/uL (0.24-0.82); Neutrophils # (auto) 8.02 K/uL (1.4-6.5); Neutrophils % (auto) 72.6 %; Platelet Count 226 K/uL (130-400); RDW Coefficient of Variation 15.1 % (11.5-14.5); RDW Standard Deviation 53.3 fL (36.4-46.3); Red Blood Count 3.83 M/uL (4.63-6.08); White Blood Count 11.06 K/ul (4.8-10.8)
[2021-11-23 03:02] LABS: Albumin Globulin Ratio 1.1 (0.9-2); Albumin Level 3.9 gm/dl (3.4-5.0); BUN Creatinine Ratio 8.3 (10-20); Bilirubin,Total 0.4 mg/dl (0.2-1.0); Calcium 9.7 mg/dl (8.5-10.1); Creatinine Clr Calc Pharmacy 10.9 ml/min; Est GFR (African American) 6.6 ml/min; Est GFR (Non-African American) 5.7 ml/min; Globulin 3.6 gm/dl (2.5-4.0); Potassium 4.4 mmol/L (3.5-5.1); Total Protein 7.5 gm/dl (6.0-8.3)
[2021-11-23] MEDS ORDERED: OPTIRAY 320 100ml IV ONE (03:27)
--- NOTE | 2021-11-23 07:15 | CT Scan Report ---
CT abd pelvis IV con only CLINICAL HISTORY: diffuse abd pain n/v/d TECHNIQUE: Helical axial images of the abdomen and pelvis were obtained and displayed. Automated dose lowering techniques and/or adjustment according to patient size were utilized for this exam. This e xam was performed with intravenous contrast. CT DOSE: 2086.54 mGy.cm COMPARISON: None available at the time of this dictation. FINDINGS: Lower chest: Multiple calcified coronary arteries are noted. Liver: Unremarkable. No focal lesions are seen. Gallbladder and biliary tree: No calcified gallstones. Normal caliber wall. No intra- or extrahepatic biliary ductal dilation. Pancreas: Fatty replacement of the pancreas is seen. Spleen: Splenule is incidentally noted. Adrenals: Unremarkable. Kidneys and ureters: Kidneys are atrophic in appearance with cortical thinning. A cyst is seen on the right. Bladder: Limited evaluation due to underdistention. Reproductive organs: Prostatomegaly is seen. Bowel: Unremarkable appearance of the bowel. The appendix is normal. No bowel obstruction is seen. Lymph nodes Retroperitoneal: Unremarkable. Mesenteric: Unremarkable. Pelvic: Unremarkable. Peritoneum: Normal. Vessels: Atherosclerotic calcifications are seen. Abdominal wall: A fat-containing umbilical hernia is seen. Bones: Degenerative changes in the visualized spine. IMPRESSION: No acute abnormalities to explain abdominal pain. In particular, no evidence of appendicitis or obstr uction is seen. ACT 112: Negative or not required by law. Electronically signed by: Angel Wilson M.D. 11/23/2021 7:13 AM
--- NOTE | 2021-11-23 07:47 | History & Physical Report ---
Date of Service November 23, 2021 Assessment & Plan (1) Intractable nausea and vomiting: Plan: Intractable nausea/vomiting Patient endorsed had a cheeseburger for the onset of his symptoms, and then subsequently developed severe gas, bloating, had an episode of very loose diarrhea followed by nausea/vomiting about 8 hours later - Mild leukocytosis to 11.06 likely demargination with nausea/vomiting HemoGlobin 11.6, stable from prior Sodium 136, potassium 4.4 Creatinine 8.54, dialysis dependent has not been using Lasix No transaminitis, bilirubin normal CTA/P with IV contrast: No acute abnormalities, no evidence of appendicitis or obstruction. Gallbladder and biliary tree normal. Fat-containing umbilical hernia and abdominal wall appreciated. Likely foodborne gastroenteritis, DDx includes intolerance, patient reports he is usually okay with cheese had some bloating before Dairy has not recurred this afternoon, if recurrent or bloody --> stool PCR panel otherwise we will treat symptomatically at this time Patient endorses history of reflux for which she takes between 4 and 8 Tums intermittently, has a hard time expressing how often but less than weekly. No GI bleeding/melena, stools are light brown Pepcid twice daily CHF, CAD with a history of PCI -CXR: Pending -Echo 08/16/2020: EF 55 to 60%, normal LV size, normal LV SF, RV volume overload with flattened septum, no wall motion abnormalities, RV dilation, RVSP 4055. Mild , mild mitral regurg, mild tricuspid regurg On Lasix 80 mg p.o. twice daily FOUNDRY METALLURGIST, ran out of this 3 days ago Patient is anticipated to receive dialysis today, nephro consulted, Lasix resumed On 3 L nasal cannula Continue statin Continue rosuvastatin, continue carvedilol, continue Plavix CKD dialysis dependent TTS Nephro consulted Creatinine 8.54 Attempting for 4 L UF today Hypertension Continue clonidine 0.2 mg p.o. twice daily Continue amlodipine 5 mg p.o. daily Continue Coreg A. fib Continue amiodarone 200 mg p.o. daily Continue carvedilol 6.25 twice daily as noted Eliquis continued twice daily. Discussed risk/benefits of Eliquis for stroke prevention. Patient okay with taking this at this time At time of morning assessment is in sinus rhythm, regular rate Type II DM On glargine 50 units twice daily FOUNDRY METALLURGIST, aspart 10 units AC FOUNDRY METALLURGIST At last admission Lantus decreased from 50-30 twice daily for reduced caloric intake, home mealtime insulin was held and replaced with aggressive sliding scale goal 100-140, CF 20, ratio 8 On admission placed on basal bolus Lantus 30 twice daily, SSI as prior Repeat A1c in the morning DM/renal diet Glucose checks AC/at bedtime Umbilical hernia No signs of overlying infection or tissue incarceration. Reducible. CT as previously noted No change in acute management DVT prophylaxis: On Eliquis Disposition: Med telemetry for fluid overload, CHF exacerbation with dialysis dependence CODE STATUS: Full code, discussed with patient at bedside (2) Intractable abdominal pain: (3) Hypercholesterolemia: (4) CAD (coronary artery disease): (5) (HFpEF) heart failure with preserved ejection fraction: (6) Atrial flutter with rapid ventricular response: (7) End-stage renal disease on hemodialysis: (8) Stented coronary artery: History of Present Illness Primary Care Provider: [facility] Angel is a 71-year-old male with a past medical history of type II DM, CKD on dialysis and on and uric, CHF, CAD, BPH, GERD, hypertension, paroxysmal A. fib, sleep apnea not on CPAP p/w ab pain Who presents with intractable nausea/vomiting and abdominal pain. Was seen at [facility] office, EKG unremarkable. Initially felt similar to GERD, but worsened. +relief when passing gas + Sore stomach + nausea~8 hours after eating a cheeseburger +very loose diarrhea this morning with a lot of gas, light brown in color and without blood/melena/mucous. Feels very bloated. No fevers/chills at bedside. + vomiting this morning, medicine seems to have resolved the emesis but still feels nauseus. Emesis was clear/light colored Pain ~6-7/10. Hx of GERD and bad reflux which has been worse in the last year and seems to have more frequent episodes in the last year. Takes TUMS PRN, uses 3-8 hours Ran out of Lasix 3 days ago with some increased shortness of breath Has not been taking Eliquis in the past week, concerned that his blood is too thin. Reports easy bleeding with dialysis, no GI bleeding or hgb drop. Denies LH/dizziness/CP. Missed evening antihypertensives due to feeling nauseous Medical History: Reviewed Medications: Reviewed Surgical History: Reviewed Allergies: Reviewed Social History: Former smoker, intermittent social alcohol use with no history of withdrawal, denies recreational drug use and medical marijuana use Code Status: Full code Allergies Allergy/AdvReac Type Severity Reaction Status Date / Time [place] Complexes Allergy Mild rash from Verified 11/23/21 01:29 metal ragweed pollen Allergy Mild CONGESTON Verified 11/23/21 01:29 Home Medications Medication Instructions Recorded Confirmed Type albuterol sulfate 90 mcg/actuation 2 puff INHALATION Q6H PRN 01/06/19 11/23/21 History aerosol inhaler furosemide 40 mg tablet (Lasix) 80 mg PO BID 01/06/19 11/23/21 History insulin aspart U-100 100 unit/mL 10 unit SUBCUT AC 01/06/19 11/23/21 History subcutaneous cartridge (Novolog PenFill U-100 Insulin aspart) loratadine 10 mg tablet 10 mg PO DAILY PRN 01/06/19 11/23/21 History tamsulosin 0.4 mg capsule 0.4 mg PO QAM 01/06/19 11/23/21 History clopidogrel 75 mg tablet (Plavix) 75 mg PO QAM 03/06/19 11/23/21 History insulin glargine 100 unit/mL (3 50 unit SUBCUT BID 03/06/19 11/23/21 History mL) subcutaneous pen (Lantus Solostar U-100 Insulin) vit B complx, C-iron 8 mg-folic 1 tab PO QAM 09/26/19 11/23/21 History acid 800 mcg-D3 1,000 unit-zinc tablet (ProRenal) nitroglycerin 0.4 mg sublingual 0.4 mg SUBLINGUAL UD PRN #20 tab 12/27/19 11/23/21 Rx tablet (Nitrostat) carvedilol 6.25 mg tablet (Coreg) 6.25 mg PO BID #0 tab 08/19/20 11/23/21 Rx apixaban 5 mg tablet (Eliquis) 5 mg PO BID 08/21/20 11/23/21 History amiodarone 200 mg tablet 200 mg PO DAILY tab 04/05/21 11/23/21 History rosuvastatin 10 mg tablet 10 mg PO DAILY 04/05/21 11/23/21 History sevelamer carbonate 800 mg tablet 2,400 mg PO TID tab 04/05/21 11/23/21 History (Renvela) amlodipine 5 mg tablet 5 mg PO DAILY #30 tab 11/11/21 11/23/21 Rx clonidine HCl 0.2 mg tablet 0.2 mg PO BID 11/23/21 11/23/21 History Past Med/Surg History Medical History BPH (benign prostatic hyperplasia) CAD (coronary artery disease) s/p LAD stents (2018 and 2019) CHF (congestive heart failure) Chronic kidney disease FOLLOWS WITH DR. TONY Diabetes mellitus, type 2 Dyslipidemia Environmental allergies REASON FOR INHALER GERD (gastroesophageal reflux disease) Hemodialysis patient FOR 2 YEARS/MONDAY, MONDAY, MONDAY AT [facility] HTN (hypertension) Neuropathy Paroxysmal atrial fibrillation Sinus node dysfunction Sleep apnea does not use CPAP Umbilical hernia Surgical History AV fistula RT ARM History of colonoscopy History of heart artery stent X 2 () History of loop recorder Implanted 05/01/2019 History of tooth extraction S/P CABG (coronary artery bypass graft) 2-VESSEL AT 05/2020 ([place]) Family History Other Hypertension No family history of adverse response to anesthesia Denies family history of Kidney disease Social History Smoking Status: Former smoker Tobacco Type: Cigarettes Cigarettes Per Day: 10; Second Hand Exposure: No; Hx Alcohol Use: Yes Alcohol type: beer and hard liquor Hx Substance Use: No Preferred Language: Panamanian Communication Ability: Effective Software Support Technician Required: No Beliefs That Will Affect Care: None marital status: Single Current Living Situation: Alone How many Children do You have: 0 Feels Safe at Home: Yes Assistive Devices: Walker Review of Systems Review of Systems: All systems reviewed & are unremarkable except as noted in Subjective Physical Exam Physical Exam: General: A&Ox3. NAD. Cooperative. HEENT: Atraumatic, normocephalic.Vision and hearing intact Pulm: Somewhat distant, moderate air movement grossly clear with crackles at the bases that clear on deep inspiration. No respiratory distress. Cardiac: Regular rate and rhythm at time of assessment Abdominal: Reducible abdominal hernia is present. Some mild tenderness inferior to the hernia which patient reports is common, but is different from the abdominal pain that brought him. Abdomen is softly distended, nontender to palpation otherwise, with no rebound tenderness appreciated Extremities: Results & Data Results & Data ([facility]) Vital Signs (Past 12 Hours) Vital Signs Temp Pulse Pulse Resp BP BP Pulse Ox 11/23/21 05:56 61 18 96 11/23/21 04:24 185/74 H 11/23/21 03:46 96 11/23/21 03:45 88 L 11/23/21 03:32 64 20 93 11/23/21 02:20 60 16 92 11/23/21 02:13 36.5 C 62 74 16 167/73 H 167/73 H 93 11/23/21 02:10 63 19 94 11/23/21 02:08 93 11/23/21 01:59 87 20 92 11/23/21 01:20 65 20 11/23/21 01:17 37 C 66 18 151/71 H 92 11/23/21 01:11 64 17 PG Care Time/CCT Total # of Minutes Spent Total Time Spent with Patient: Total time spent is greater than 50% in coordination of care (as documented) at patient's floor/unit and/or counseling patient: Coding Level of Care Code 40162 Initial Inpt Care Lvl 2 Diagnoses Intractable nausea and vomiting R11.2 Intractable abdominal pain R10.9 Hypercholesterolemia E78.00 CAD (coronary artery disease) I25.119 Coronary Disease-Associated Artery/Lesion type: [place] artery [place] vs. transplanted heart: [place] heart Associated angina: with unspecified angina (HFpEF) heart failure with preserved ejection fraction I50.30 Atrial flutter with rapid ventricular response I48.92 End-stage renal disease on hemodialysis N18.6; Z99.2 Stented coronary artery Z95.5 (1) CAD (coronary artery disease) Coronary Disease-Associated Artery/Lesion type: [place] artery [place] vs. transplanted heart: [place] heart Associated angina: with unspecified angina Qualified Code(s): I25.119 - Atherosclerotic heart disease of [place] coronary artery with unspecified angina pectoris
--- NOTE | 2021-11-23 08:42 | Nephrology Consultation ---
Date of Consultation November 23, 2021 Assessment & Plan (1) Intractable nausea and vomiting: * Probable gastroenteritis. Lipase, LFT's normal. Abdominal CT negative for obstruction * Abdominal hernia is reducible (2) End-stage renal disease on hemodialysis: * Will provide HD today according to outpatient orders. HD RN pharmacy operations specialist notified. Will attempt 4 L UF History of Present Illness Reason for Consultation: ESKD on HD History of Present Illness Mr. Solorio is a 71 year old white male who is seen at the request of Dr. Andrew to provide inpatient HD. Medical records in the EMR were reviewed today and are summarized as follows: Mr. Solorio has received the majority of his medical care through the [facility]. In March 2019 he progressed to ESKD. He currently dialyzes at [facility] (Contour Grinder is Dr. Raza: TTS, 4.5 hrs, 2K 2.0Ca 1.0Mg Na 140 HCO3 35, F-180NR, EDW 128kg). His medical history is significant f or AODM, HTN, ASCVD s/p CABG, atrial fibrillation, obesity, RADHA, COVID + 06/04 and a large ventral wall abdominal hernia. Mr. Solorio attended a medical visit at the [facility] in [place], [place] yesterday. He ate dinner at a fast food restaurant. Late last evening he developed the sudden onset of recurrent emesis and diarrhea. He denies fever, angina, dyspnea or GI blood loss. He denies any ill contacts. COVID test was negative. Allergies Allergy/AdvReac Type Severity Reaction Status Date / Time [place] Complexes Allergy Mild rash from Verified 11/23/21 01:29 metal ragweed pollen Allergy Mild CONGESTON Verified 11/23/21 01:29 Home Medications Medication Instructions Recorded Confirmed Type albuterol sulfate 90 mcg/actuation 2 puff INHALATION Q6H PRN 01/06/19 11/23/21 History aerosol inhaler furosemide 40 mg tablet (Lasix) 80 mg PO BID 01/06/19 11/23/21 History insulin aspart U-100 100 unit/mL 10 unit SUBCUT AC 01/06/19 11/23/21 History subcutaneous cartridge (Novolog PenFill U-100 Insulin aspart) loratadine 10 mg tablet 10 mg PO DAILY PRN 01/06/19 11/23/21 History tamsulosin 0.4 mg capsule 0.4 mg PO QAM 01/06/19 11/23/21 History clopidogrel 75 mg tablet (Plavix) 75 mg PO QAM 03/06/19 11/23/21 History insulin glargine 100 unit/mL (3 50 unit SUBCUT BID 03/06/19 11/23/21 History mL) subcutaneous pen (Lantus Solostar U-100 Insulin) vit B complx, C-iron 8 mg-folic 1 tab PO QAM 09/26/19 11/23/21 History acid 800 mcg-D3 1,000 unit-zinc tablet (ProRenal) nitroglycerin 0.4 mg sublingual 0.4 mg SUBLINGUAL UD PRN #20 tab 12/27/19 11/23/21 Rx tablet (Nitrostat) carvedilol 6.25 mg tablet (Coreg) 6.25 mg PO BID #0 tab 08/19/20 11/23/21 Rx apixaban 5 mg tablet (Eliquis) 5 mg PO BID 08/21/20 11/23/21 History amiodarone 200 mg tablet 200 mg PO DAILY tab 04/05/21 11/23/21 History rosuvastatin 10 mg tablet 10 mg PO DAILY 04/05/21 11/23/21 History sevelamer carbonate 800 mg tablet 2,400 mg PO TID tab 04/05/21 11/23/21 History (Renvela) amlodipine 5 mg tablet 5 mg PO DAILY #30 tab 11/11/21 11/23/21 Rx clonidine HCl 0.2 mg tablet 0.2 mg PO BID 11/23/21 11/23/21 History Patient History Medical History (Updated 11/23/21 @ 07:51 by Tameka Andrew DO) BPH (benign prostatic hyperplasia) CAD (coronary artery disease) s/p LAD stents (2018 and 2019) CHF (congestive heart failure) Chronic kidney disease FOLLOWS WITH DR. TONY Diabetes mellitus, type 2 Dyslipidemia Environmental allergies REASON FOR INHALER GERD (gastroesophageal reflux disease) Hemodialysis patient FOR 2 YEARS/MONDAY, MONDAY, MONDAY AT [facility] HTN (hypertension) Neuropathy Paroxysmal atrial fibrillation Sinus node dysfunction Sleep apnea does not use CPAP Umbilical hernia Surgical History AV fistula RT ARM History of colonoscopy History of heart artery stent X 2 () History of loop recorder Implanted 05/01/2019 History of tooth extraction S/P CABG (coronary artery bypass graft) 2-VESSEL AT 05/2020 ([place]) Family History Other Hypertension No family history of adverse response to anesthesia Denies family history of Kidney disease Social History Smoking Status: Former smoker Tobacco Type: Cigarettes Cigarettes Per Day: 10; Second Hand Exposure: No; Hx Alcohol Use: Yes Alcohol type: beer and hard liquor Hx Substance Use: No Preferred Language: South Sudanese Communication Ability: Effective Dry Wall Finisher Required: No Beliefs That Will Affect Care: None marital status: Single Current Living Situation: Alone How many Children do You have: 0 Feels Safe at Home: Yes Assistive Devices: Walker Review of Systems Constitutional: no fever Eyes: no problem reported Ear, Nose, Mouth, Throat: no problem reported Respiratory: no cough and no dyspnea Cardiovascular: no chest pain, no palpitations and no edema Gastrointestinal: + abdominal pain, + nausea, + vomiting and + diarrhea/loose stools Musculoskeletal: no back pain Integumentary: no rash Neurologic: no falls, no dizziness and no confusion Physical Exam Constitutional: + overweight (chronically ill appearing) Eyes: PERRL, conjunctivae normal, anicteric sclerae ENMT: external ear and nose normal, oropharynx normal Neck: trachea midline, no thyromegaly Respiratory: normal respiratory effort, lungs clear to auscultation Cardiovascular: Rate/Rhythm: regular rhythm Extremities: + AV fistula (+ bruit); no edema Gastrointestinal (Abdomen): normal bowel sounds, soft, nontender, no hepatosplenomegaly Musculoskeletal: Extremities: no cyanosis Skin: no rashes, warm and dry Neurologic: awake; not confused Results & Data ([facility]) Vital Signs (Past 12 Hours) Vital Signs Temp Pulse Pulse Resp BP BP Pulse Ox 11/23/21 08:06 60 20 186/73 H 97 11/23/21 05:56 61 18 96 11/23/21 04:24 185/74 H 11/23/21 03:46 96 11/23/21 03:45 88 L 11/23/21 03:32 64 20 93 07/12/22 02:20 60 16 92 11/23/21 02:13 36.5 C 62 74 16 167/73 H 167/73 H 93 11/23/21 02:10 63 19 94 11/23/21 02:08 93 11/23/21 01:59 87 20 92 11/23/21 01:20 65 20 11/23/21 01:17 37 C 66 18 151/71 H 92 11/23/21 01:11 64 17 Laboratory Results Laboratory Tests 11/23/21 11/23/21 01:30 01:30 WBC 11.06 H Hgb 11.6 L Hct 36.8 L Plt Count 226 Sodium 136 Potassium 4.4 Chloride 95 L Carbon Dioxide 25 BUN 71 H Creatinine 8.54 H* Glucose 197 H Albumin 3.9 Lipase 75 Diagnostic Findings 11/22/[address]: No acute abnormalities to explain abdominal pain. In particular, no evidence of appendicitis or obstruction is seen. PG Care Time/CCT Total # of Minutes Spent Total Time Spent with Patient: Total time spent is greater than 50% in coordination of care (as documented) at patient's floor/unit and/or counseling patient: Coding Level of Care Code 86169 Inpt Consult Level 5 Diagnoses Intractable nausea and vomiting R11.2 End-stage renal disease on hemodialysis N18.6; Z99.2
[2021-11-23] MEDS ORDERED: amLODIPine BESYLATE 5 MG TAB PO ONE (08:45)
[2021-11-23] MEDS ORDERED: cloNIDine HCL 0.1 MG TAB PO ONE (08:45)
[2021-11-23] MEDS ORDERED: AMIODARONE 200 MG TAB PO ONE (08:45)
[2021-11-23] MEDS ORDERED: carvediloL 6.25 MG TAB PO ONE (08:45)
[2021-11-23] MEDS ORDERED: FAMOTIDINE 20 MG in SYRINGE 3 ML IV ONE (08:50)
[2021-11-23] MEDS ORDERED: SODIUM CHLORIDE 0.9% 1000ML 1,000 ML IV PRN (09:15)
[2021-11-23] MEDS ORDERED: HEPARIN SOD (PORCINE) 1000 UNIT/ML IV ONE (09:15)
--- NOTE | 2021-11-23 11:10 | Dialysis Progress Note ---
Date of Service November 23, 2021 Assessment & Plan (1) End-stage renal disease on hemodialysis: Plan: * AVF is functioning well * No change to current HD prescription Admission and Anticipated Discharge Date Admission Date: November 23, 2021 Subjective Mr. Solorio was evaluated during HD this morning. He appeared to be comfortable. He was not having further emesis. He voiced no medical concerns. Review of Systems Constitutional: no fever Eyes: no problem reported Ear, Nose, Mouth, Throat: no problem reported Respiratory: no cough and no dyspnea Cardiovascular: no chest pain, no palpitations and no edema Gastrointestinal: + abdominal pain, + nausea, + vomiting and + diarrhea/loose stools Musculoskeletal: no back pain Integumentary: no rash Neurologic: no falls, no dizziness and no confusion Physical Exam Constitutional: + overweight (chronically ill appearing) Eyes: PERRL, conjunctivae normal, anicteric sclerae ENMT: external ear and nose normal, oropharynx normal Neck: trachea midline, no thyromegaly Respiratory: normal respiratory effort, lungs clear to auscultation Cardiovascular: Rate/Rhythm: regular rhythm Extremities: + AV fistula (+ bruit); no edema Gastrointestinal (Abdomen): normal bowel sounds, soft, nontender, no hepatosplenomegaly Musculoskeletal: Extremities: no cyanosis Skin: no rashes, warm and dry Neurologic: awake; not confused Results & Data ([facility]) Vital Signs (Past 12 Hours) Vital Signs Temp Pulse Pulse Resp BP BP Pulse Ox 11/23/21 08:06 60 20 186/73 H 97 11/23/21 05:56 61 18 96 11/23/21 04:24 185/74 H 11/23/21 03:46 96 11/23/21 03:45 88 L 11/23/21 03:32 64 20 93 11/23/21 02:20 60 16 92 11/23/21 02:13 36.5 C 62 74 16 167/73 H 167/73 H 93 11/23/21 02:10 63 19 94 11/23/21 02:08 93 11/23/21 01:59 87 20 92 11/23/21 01:20 65 20 11/23/21 01:17 37 C 66 18 151/71 H 92 11/23/21 01:11 64 17 Coding Level of Care Code None Diagnoses End-stage renal disease on hemodialysis N18.6; Z99.2 CPT Codes Dialysis, One Evaluation - 05659
--- NOTE | 2021-11-23 12:07 | Electrocardiogram Report ---
Test Reason : Blood Pressure : / mmHG Vent. Rate : 061 BPM Atrial Rate : 061 BPM P-R Int : 168 ms QRS Dur : 136 ms QT Int : 506 ms P-R-T Axes : -10 064 027 degrees QTc Int : 509 ms Normal sinus rhythm with 1st degree AV block Right bundle branch block Abnormal ECG When compared with ECG of 09-NOV-2021 06:19, LA interval has decreased QT has lengthened Confirmed by Luiz Washington ([id number]) on 11/23/2021 12:07:30 PM Referred By: REFERRED SELF Confirmed By:Chau Washington
[2021-11-23] MEDS ORDERED: ONDANSETRON INJ 2 MG/ML 2 ML VIAL IV PRN ×2 (14:36→14:42)
[2021-11-23] MEDS ORDERED: amLODIPine BESYLATE 5 MG TAB PO SCH (14:42)
[2021-11-23] MEDS ORDERED: carvediloL 6.25 MG TAB PO SCH (14:42)
[2021-11-23] MEDS ORDERED: GLUCOSE 40% GEL 15 GM TUBE PO PRN (14:42)
[2021-11-23] MEDS ORDERED: DEXTROSE 50% 50 ML SYRINGE IV PRN (14:42)
[2021-11-23] MEDS ORDERED: GLUCAGON FOR INJ 1 MG VIAL SQ PRN (14:42)
[2021-11-23] MEDS ORDERED: CLONIDINE HCL 0.2 MG PO SCH (14:42)
[2021-11-23] MEDS ORDERED: POLYETHYLENE (MIRALAX) 17 GM PACK PO PRN (14:42)
[2021-11-23] MEDS ORDERED: CARBOHYDRATES FOR HYPOGLYCEMIA PO PRN (14:42)
[2021-11-23] MEDS ORDERED: AMIODARONE 200 MG TAB PO SCH (14:42)
[2021-11-23] MEDS ORDERED: GLUCOSE 10 TAB/TUBE PO PRN (14:42)
[2021-11-23] MEDS: HEPARIN SOD (PORCINE) 1000 UNIT/ML IV SCH (14:51)
[2021-11-23] MEDS ORDERED: FUROSEMIDE 80 MG TAB PO ONE (15:00)
--- NOTE | 2021-11-23 15:24 | XRay Report ---
SINGLE VIEW CHEST CLINICAL HISTORY: Congestive heart failure. FINDINGS: An AP, portable, upright chest radiograph is compared to study dated 11/09/2021 and correlat ed with chest CT dated 09/03/2020. The patient is status post midline sternotomy. The heart is enlarge d. There is pulmonary vascular congestion. Dependent airspace opacities likely represent atelectasis. Small pleural effusions are suspected. No pneumothorax is seen. The skeletal structures are osteopen ic. The bony thorax is grossly intact. IMPRESSION: 1. Cardiomegaly with pulmonary vascular congestion. 2. Dependent airspace opacities likely represent atelectasis. Clinical correlation will be required. 3. Suspect small pleural effusions ACT 112: Negative or not required by law. Electronically signed by: Washington Chance M.D. 11/23/2021 3:23 PM
[2021-11-23] MEDS: CLOPIDOGREL BISULFATE 75 MG TAB PO SCH (15:53)
[2021-11-23] MEDS: TAMSULOSIN HCL 0.4 MG CAP PO SCH (15:53)
[2021-11-23] MEDS: NEPHROCAPS PO SCH (15:53)
[2021-11-23] MEDS: ROSUVASTATIN CALCIUM 10 MG TAB PO SCH (15:53)
[2021-11-23] MEDS: SEVELAMER HCL 800 MG TABLET PO SCH (15:53)
[2021-11-23] MEDS: INSULIN ASPART PER UNIT SC SCH ×3 (15:54→22:03)
[2021-11-23] MEDS: LANTUS PER UNIT CHARGE SQ SCH ×2 (15:57→22:04)
[2021-11-23] MEDS: FUROSEMIDE 80 MG TAB PO SCH (22:02)
[2021-11-23] MEDS: carvediloL 6.25 MG TAB PO SCH ×2 (22:07→23:18)
[2021-11-23] MEDS: FAMOTIDINE 20 MG in SYRINGE 3 ML IV SCH (22:17)
[2021-11-23] MEDS: cloNIDine HCL 0.1 MG TAB PO SCH (23:46)
[2021-11-24 05:59] LABS: HBSAG NON-REACTIVE (NON-REACTIVE)
[2021-11-24 07:07] LABS: Basophils # (auto) 0.05 K/uL (0-0.2); Basophils % (auto) 0.4 %; Eosinophils # (auto) 0.23 K/uL (0-0.50); Hemoglobin 11.8 g/dl (14.0-18.0); Immature Granulocytes # (auto) 0.05 K/uL (0.00-0.02); Immature Granulocytes % (auto) 0.4 %; Lymphocytes # (auto) 1.08 K/uL (1.2-3.4); Lymphocytes % (auto) 9.5 %; Mean Corpuscular Hemoglobin 30.6 pg (25.0-34.0); Mean Corpuscular Hgb Conc 31.9 g/dL (32.0-36.0); Mean Corpuscular Volume 96.1 fL (80.0-100.0); Mean Platelet Volume 10.8 fL (9.4-12.4); Monocytes # (auto) 1.21 K/uL (0.24-0.82); Monocytes % (auto) 10.6 %; Neutrophils # (auto) 8.76 K/uL (1.4-6.5); Neutrophils % (auto) 77.1 %; Platelet Count 174 K/uL (130-400); RDW Coefficient of Variation 15.1 % (11.5-14.5); RDW Standard Deviation 53.4 fL (36.4-46.3); Red Blood Count 3.85 M/uL (4.63-6.08); White Blood Count 11.38 K/ul (4.8-10.8)
[2021-11-24 07:28] LABS: BUN Creatinine Ratio 6.3 (10-20); Calcium 9.2 mg/dl (8.5-10.1); Creatinine Clr Calc Pharmacy 12.5 ml/min; Est GFR (Non-African American) 6.9 ml/min; Potassium 4.7 mmol/L (3.5-5.1)
[2021-11-24] MEDS: INSULIN ASPART PER UNIT SC SCH ×4 (08:29→22:44)
[2021-11-24] MEDS: FAMOTIDINE 20 MG in SYRINGE 3 ML IV SCH (08:29)
[2021-11-24] MEDS: SEVELAMER HCL 800 MG TABLET PO SCH ×3 (08:30→17:49)
--- NOTE | 2021-11-24 08:31 | Nephrology Progress Note ---
Date of Service November 24, 2021 Assessment & Plan (1) End-stage renal disease on hemodialysis: Plan: * Chronic maintenance HD completed yesterday. No complications * No acute indication for HD today * If discharge is anticipated, please have patient resume his outpatient TTS HD schedule at [facility] [phone] (2) Intractable nausea and vomiting: Plan: * Resolved Admission and Anticipated Discharge Date Admission Date: November 23, 2021 Subjective Mr. Solorio was evaluated in his hospital room this morning. He was dialyzed yesterday without complication. He reports that his N&V have resolved. He is now tolerating a renal diet Review of Systems Constitutional: no fever Eyes: no problem reported Ear, Nose, Mouth, Throat: no problem reported Respiratory: no cough and no dyspnea Cardiovascular: no chest pain, no palpitations and no edema Gastrointestinal: no abdominal pain, no nausea, no vomiting and no diarrhea/loose stools Musculoskeletal: no back pain Integumentary: no rash Neurologic: no falls, no dizziness and no confusion Physical Exam Constitutional: + overweight (chronically ill appearing) Eyes: PERRL, conjunctivae normal, anicteric sclerae ENMT: external ear and nose normal, oropharynx normal Neck: trachea midline, no thyromegaly Respiratory: normal respiratory effort, lungs clear to auscultation Cardiovascular: Rate/Rhythm: regular rhythm Extremities: + AV fistula (+ bruit); no edema Gastrointestinal (Abdomen): normal bowel sounds, soft, nontender, no hepatosplenomegaly Musculoskeletal: Extremities: no cyanosis Skin: no rashes, warm and dry Neurologic: awake; not confused Results & Data ([facility]) Vital Signs (Past 12 Hours) Vital Signs Temp Pulse Pulse Pulse Resp BP Pulse Ox 11/24/21 08:17 56 L 11/24/21 07:45 36.6 C 59 L 22 134/70 96 11/24/21 02:51 36.7 C 60 18 137/67 90 11/23/21 22:17 59 L 11/24/21 01:29 11/23/21 22:45 36.5 C 60 18 137/76 93 O2 Del Method O2 Flow Rate 11/24/21 08:17 11/24/21 07:45 Nasal Cannula 2 11/24/21 02:51 Nasal Cannula 2 11/23/21 22:17 07/13/22 01:29 Nasal Cannula 2 11/23/21 22:45 Nasal Cannula 2 Laboratory Results Laboratory Tests 11/24/21 11/24/21 06:41 06:41 WBC 11.38 H Hgb 11.8 L Hct 37.0 L Plt Count 174 Sodium 134 L Potassium 4.7 Chloride 95 L Carbon Dioxide 29 BUN 46 H D Creatinine 7.34 H* D Glucose 197 H PG Care Time/CCT Total # of Minutes Spent Total Time Spent with Patient: Total time spent is greater than 50% in coordination of care (as documented) at patient's floor/unit and/or counseling patient: Coding Level of Care Code 42975 Subseq Hosp Care Lvl 2 Diagnoses End-stage renal disease on hemodialysis N18.6; Z99.2 Intractable nausea and vomiting R11.2
[2021-11-24] MEDS: CLOPIDOGREL BISULFATE 75 MG TAB PO SCH (08:32)
[2021-11-24] MEDS: NEPHROCAPS PO SCH (08:32)
[2021-11-24] MEDS: FUROSEMIDE 80 MG TAB PO SCH ×2 (08:32→17:50)
[2021-11-24] MEDS: cloNIDine HCL 0.1 MG TAB PO SCH ×2 (08:32→22:40)
[2021-11-24] MEDS: ROSUVASTATIN CALCIUM 10 MG TAB PO SCH (08:32)
[2021-11-24] MEDS: TAMSULOSIN HCL 0.4 MG CAP PO SCH (08:33)
[2021-11-24] MEDS: carvediloL 6.25 MG TAB PO SCH ×2 (08:34→22:43)
--- NOTE | 2021-11-24 08:42 | Hospitalist Progress Note ---
Date of Service November 24, 2021 Assessment & Plan (1) Intractable nausea and vomiting: Plan: Intractable nausea/vomitingresolved May have been food related no additional symptoms noted produce stool for stool PCR testing No transaminitis, bilirubin normal CTA/P with IV contrast: No acute abnormalities, no evidence of appendicitis or obstruction. Gallbladder and biliary tree normal. Fat-containing umbilical hernia and abdominal wall appreciated. -With resolution of symptoms patient treated conservatively will be discharged home to continue outpatient care History of heart failure preserved ejection fraction not in exacerbation, CAD with a history of PCI -Echo 08/16/2020: EF 55 to 60%, normal LV size, normal LV SF, RV volume overload with flattened septum, no wall motion abnormalities, RV dilation, RVSP 4055. Mild , mild mitral regurg, mild tricuspid regurg On Lasix 80 mg p.o. twice daily [employer], ran out of this 3 days ago Patient is anticipated to receive dialysis 11/23/2021 nephro consulted, Lasix resumed Continue rosuvastatin, patient refused carvedilol subsequently this was removed from his medication list, continue Plavix CKD dialysis dependent TTS 11/22 was able to remove 4 L UF Hypertension Continue clonidine 0.2 mg p.o. twice daily. amlodipine 5 mg p.o. daily A. fib Continue amiodarone 200 mg p.o. daily Patient refused carvedilol Eliquis continued twice daily. Discussed risk/benefits of Eliquis for stroke prevention. Patient will agree to take this medication Type II DM On glargine 50 units twice daily [employer], aspart 10 units AC [employer] Repeat A1c 7.8 on 11/24/2021 DM/renal diet Umbilical hernia No signs of overlying infection or tissue incarceration. Reducible. CT as previously noted No change in acute management DVT prophylaxis: On Eliquis CODE STATUS: Full code, discussed with patient at bedside (2) Intractable abdominal pain: (3) Hypercholesterolemia: (4) CAD (coronary artery disease): (5) (HFpEF) heart failure with preserved ejection fraction: (6) Atrial flutter with rapid ventricular response: (7) End-stage renal disease on hemodialysis: (8) Stented coronary artery: Admission and Anticipated Discharge Date Admission Date: November 23, 2021 Subjective Pt states he feels he has returned to baseline issues with dialysis and transport pt feels he can get ride from hospital at 4 am on 11/25/21 from hospital to dialysis but if he went home on 11/24/21 may miss dialysis will attempt to accommodate the patient to get to dialysis on 11/25/21 Review of Systems Review of Systems: Mild distress and fatigue no headache, no visual changes no speech or swallowing issues no chest pain, pressure or palpitations no shortness of breath, cough or wheezes no abdominal pain, nausea or vomiting, diarrhea or constipation no dysuria, hematuria or frequency no focal joint pain or swelling no back pain, CVA tenderness or radicular pain no bruising, bleeding or rashes no complaints of anxiety or depression.. Physical Exam Physical Exam: The patient appeared chronically ill consistent with end-stage dialysis Vital signs as documented. Head exam is normocephalic atraumatic Neck is without JVD, seems euvolemic, thyromegaly, or carotid bruits. Lungs are mildly diminished at the bases, no focal loss of breath sounds Cardiac exam, Rhythm is regular.. No murmurs, rubs or gallops. Abdominal exam reveals normal bowel sounds, soft non tender, no masses Extremities are trace edematous and both pedal pulses are present Neurologic exam is alert and oriented, no focal loss of strength or sensation Skin is without bruises or rashes Psychologically is without concerns for anxiety or depression.. Results & Data Results & Data ([facility]) Vital Signs (Past 12 Hours) Vital Signs Temp Pulse Pulse Pulse Resp BP Pulse Ox 11/24/21 08:17 56 L 11/24/21 07:45 97.9 F 59 L 22 134/70 96 11/24/21 02:51 98.1 F 60 18 137/67 90 11/23/21 22:17 59 L 11/24/21 01:29 11/23/21 22:45 97.7 F 60 18 137/76 93 O2 Del Method O2 Flow Rate 11/24/21 08:17 11/24/21 07:45 Nasal Cannula 2 11/24/21 02:51 Nasal Cannula 2 11/23/21 22:17 11/24/21 01:29 Nasal Cannula 2 11/23/21 22:45 Nasal Cannula 2 PG Care Time/CCT Total # of Minutes Spent Total Time Spent with Patient: Total time spent is greater than 50% in coordination of care (as documented) at patient's floor/unit and/or counseling patient: Coding Level of Care Code 95478 Subseq Hosp Care Lvl 3 Diagnoses Intractable nausea and vomiting R11.2 Intractable abdominal pain R10.9 Hypercholesterolemia E78.00 CAD (coronary artery disease) I25.119 Associated angina: with unspecified angina Coronary Disease-Associated Artery/Lesion type: [place] artery [place] vs. transplanted heart: [place] heart (HFpEF) heart failure with preserved ejection fraction I50.30 Atrial flutter with rapid ventricular response I48.92 End-stage renal disease on hemodialysis N18.6; Z99.2 Stented coronary artery Z95.5 (1) CAD (coronary artery disease) Associated angina: with unspecified angina Coronary Disease-Associated Artery/Lesion type: [place] artery [place] vs. transplanted heart: [place] heart Qualified Code(s): I25.119 - Atherosclerotic heart disease of [place] coronary artery with unspecified angina pectoris
[2021-11-24] MEDS: LANTUS PER UNIT CHARGE SQ SCH ×2 (08:46→22:48)
[2021-11-24] MEDS ORDERED: AMIODARONE 200 MG TAB PO SCH (09:00)
[2021-11-24] MEDS ORDERED: amLODIPine BESYLATE 5 MG TAB PO SCH (09:00)
[2021-11-24 09:06] LABS: Estimated Average Glucose 177 mg/dl; Hemoglobin A1C 7.8 % (4.5-5.6)
[2021-11-24] MEDS ORDERED: FAMOTIDINE 20 MG TAB PO SCH (21:00)
--- NOTE | 2021-11-29 17:17 | Discharge Summary ---
Date of Service November 25, 2021 Admission HPI Per Admitting Provider Angel is a 71-year-old male with a past medical history of type II DM, CKD on dialysis and on and uric, CHF, CAD, BPH, GERD, hypertension, paroxysmal A. fib, sleep apnea not on CPAP p/w ab pain Who presents with intractable nausea/vomiting and abdominal pain. Was seen at [facility] office, EKG unremarkable. Initially felt similar to GERD, but worsened. +relief when passing gas + Sore stomach + nausea~8 hours after eating a cheeseburger +very loose diarrhea this morning with a lot of gas, light brown in color and without blood/melena/mucous. Feels very bloated. No fevers/chills at bedside. + vomiting this morning, medicine seems to have resolved the emesis but still feels nauseus. Emesis was clear/light colored Pain ~6-7/10. Hx of GERD and bad reflux which has been worse in the last year and seems to have more frequent episodes in the last year. Takes TUMS PRN, uses 3-8 hours Ran out of Lasix 3 days ago with some increased shortness of breath Has not been taking Eliquis in the past week, concerned that his blood is too thin. Reports easy bleeding with dialysis, no GI bleeding or hgb drop. Denies LH/dizziness/CP. Missed evening antihypertensives due to feeling nauseous Medical History: Reviewed Medications: Reviewed Surgical History: Reviewed Allergies: Reviewed Social History: Former smoker, intermittent social alcohol use with no history of withdrawal, denies recreational drug use and medical marijuana use Code Status: Full code Principal Diagnosis intractable nausea and vomiting Discharge Exam Pt left without being seen Discharge Data Allergies Allergy/AdvReac Type Severity Reaction Status Date / Time [place] Complexes Allergy Mild rash from Verified 11/23/21 01:29 metal ragweed pollen Allergy Mild [place] Verified 11/23/21 01:29 Consultations 11/23/21 07:31 ED Decision to Admit Stat 11/23/21 14:42 Consult Nephrology Routine Ordered Studies 11/23/21 01:59 CT abd pelvis IV con only Urgent Hospital Course (1) Intractable nausea and vomiting: Intractable nausea/vomitingresolved May have been food related no additional symptoms noted produce stool for stool PCR testing No transaminitis, bilirubin normal CTA/P with IV contrast: No acute abnormalities, no evidence of appendicitis or obstruction. Gallbladder and biliary tree normal. Fat-containing umbilical hernia and abdominal wall appreciated. -With resolution of symptoms patient treated conservatively will be discharged home to continue outpatient care History of heart failure preserved ejection fraction not in exacerbation, CAD with a history of PCI -Echo 08/16/2020: EF 55 to 60%, normal LV size, normal LV SF, RV volume overload with flattened septum, no wall motion abnormalities, RV dilation, RVSP 4055. Mild , mild mitral regurg, mild tricuspid regurg On Lasix 80 mg p.o. twice daily [employer], ran out of this 3 days ago Patient is anticipated to receive dialysis 11/25/2021 Lasix resumed Continue rosuvastatin, patient refused carvedilol subsequently this was removed from his medication list, continue Plavix CKD dialysis dependent TTS 11/22 was able to remove 4 L UF Hypertension Continue clonidine 0.2 mg p.o. twice daily. amlodipine 5 mg p.o. daily A. fib Continue amiodarone 200 mg p.o. daily Patient refused carvedilol Eliquis continued twice daily. Discussed risk/benefits of Eliquis for stroke prevention. Patient will agree to take this medication Type II DM On glargine 50 units twice daily [employer]SE, aspart 10 units AC [employer]SE Repeat A1c 7.8 on 11/24/2021 DM/renal diet Umbilical hernia No signs of overlying infection or tissue incarceration. Reducible. CT as previously noted No change in acute management CODE STATUS: Full code, discussed with patient at bedside (2) Intractable abdominal pain: (3) Hypercholesterolemia: (4) CAD (coronary artery disease): (5) (HFpEF) heart failure with preserved ejection fraction: (6) Atrial flutter with rapid ventricular response: (7) End-stage renal disease on hemodialysis: (8) Stented coronary artery: Total Time Total Time Spent Total Time Spent (In Minutes): pt left before able to see on this date Discharge Plan Discharge Items Patient Disposition: Home - Self-Care Reason For Visit: INTRACT N/V, HTN, HYPOXIA Discharge Diagnosis: intractable Nausea and vomiting resolved renal replacement therapy Activity: Resume your previous activity Non-emergency contact: Primary Care Provider and Blood Bank Specialist Call non-emergency contact if: your symptoms worsen and you have a fever Follow-up/Referrals: [facility] [Primary Care Provider] - Diet: Dialysis Renal Addtl Attending Provider Instructions: Please continue to follow up with your regularly scheduled dialysis and primary care follow up Pending Studies at Discharge: No Stand-Alone Forms: My [facility], Smoking Cessation Medications and DC Order Prescriptions: Continued amiodarone 200 mg tablet 200 mg PO DAILY rosuvastatin 10 mg tablet 10 mg PO DAILY insulin aspart U-100 [Novolog PenFill U-100 Insulin] 100 unit/mL Cartridge 10 unit SUBCUT AC tamsulosin 0.4 mg Capsule 0.4 mg PO QAM albuterol sulfate 90 mcg/actuation Hfa Aerosol Inhaler 2 puff INHALATION Q6H PRN (Reason: Shortness Of Breath) loratadine 10 mg Tablet 10 mg PO DAILY PRN (Reason: Allergy Symptoms) clopidogrel [Plavix] 75 mg Tablet 75 mg PO QAM insulin glargine [Lantus Solostar U-100 Insulin] 100 unit/mL (3 mL) insulin pen 50 unit SUBCUT BID Label Comments: patient states he took 1/2 a dose ProRenal 8 mg iron-800 mcg-1,000 unit tablet 1 tab PO QAM sevelamer carbonate [Renvela] 800 mg tablet 2,400 mg PO TID nitroglycerin [Nitrostat] 0.4 mg Tablet, Sublingual 0.4 mg sublingual UD PRN (Reason: chest pain) Qty: 20 0RF Rx Instructions: NEEDED FOR CHEST PAIN : ONE TABLET UNDER THE TONGUE EVERY FIVE MINUTES UP TO 3 DOSES. Eliquis 5 mg Tablet 5 mg PO BID amlodipine 5 mg tablet 5 mg PO DAILY Qty: 30 0RF clonidine HCl 0.2 mg Tablet 0.2 mg PO BID furosemide [Lasix] 40 mg Tablet 80 mg PO BID Qty: 120 3RF Discharge Orders: Discharge Order (Routine); Ordered 11/25/21 Ordered By: Prince Burgos/Other Patient Handouts: Managing Type 2 Diabetes Admission Data Admit Date/Time: 11/23/21 08:38 Attending Provider: Prince Taylor Admit Provider: Joon Rosa Primary Care Provider: [facility] Other Providers: Joon Rosa ; Gurinder Jackson Other Interventions: Discharge Summary Assessment (RN) Last Done: 11/25/21 04:07 Coding Level of Care Code None Diagnoses Intractable nausea and vomiting R11.2 Intractable abdominal pain R10.9 Hypercholesterolemia E78.00 CAD (coronary artery disease) I25.119 Coronary Disease-Associated Artery/Lesion type: [place] artery [place] vs. transplanted heart: [place] heart Associated angina: with unspecified angina (HFpEF) heart failure with preserved ejection fraction I50.30 Atrial flutter with rapid ventricular response I48.92 End-stage renal disease on hemodialysis N18.6; Z99.2 Stented coronary artery Z95.5
== END 2021-11-25 05:21 | disposition home or self-care (01) | DRG 391 ==
LOC: ED 00:58 → SUATTDRO 08:38 → 2W 08:38 → INTOOBSV 08:38 → 2W 09:34

== ENCOUNTER 2021-12-21 01:22 | Inpatient (IN) ==
--- NOTE | 2021-12-21 01:49 | Emergency Department Note ---
History of Present Illness General Chief complaint: Ankle Pain Stated complaint: Fall, Ankle Injury Time Seen by Provider: 12/21/21 01:31 History of Present Illness This is a 71-year-old male presenting to the emergency department via EMS for evaluation of right ankle pain. The patient was at home when he slipped on the wet floor in the kitchen. He fell awkwardly and inverted his right ankle. He was not able to walk after the injury. He rates the discomfort an 8/10. The patient lives at home and is on dialysis, and canceled his dialysis appointment already. The patient did not strike his head or lose consciousness. No chest pain, chest tightness, shortness of breath, or dizziness before or after the fall. There is no blood or bleeding. Home Medications Medication Instructions Recorded Confirmed Type albuterol sulfate 90 mcg/actuation 2 puff inhalation Q6H PRN 01/06/19 11/23/21 History aerosol inhaler Shortness Of Breath insulin aspart U-100 100 unit/mL 10 unit subcut AC 01/06/19 11/23/21 History subcutaneous cartridge (Novolog PenFill U-100 Insulin aspart) loratadine 10 mg tablet 10 mg PO DAILY PRN Allergy Symptoms 01/06/19 11/23/21 History tamsulosin 0.4 mg capsule 0.4 mg PO QAM 01/06/19 11/23/21 History clopidogrel 75 mg tablet (Plavix) 75 mg PO QAM 03/06/19 11/23/21 History insulin glargine 100 unit/mL (3 50 unit subcut BID 03/06/19 11/23/21 History mL) subcutaneous pen (Lantus Solostar U-100 Insulin) vit B complx, C-iron 8 mg-folic 1 tab PO QAM 09/26/19 11/23/21 History acid 800 mcg-D3 1,000 unit-zinc tablet (ProRenal) nitroglycerin 0.4 mg sublingual 0.4 mg sublingual UD PRN chest 12/27/19 11/23/21 Rx tablet (Nitrostat) pain #20 tabs apixaban 5 mg tablet (Eliquis) 5 mg PO BID 08/21/20 11/23/21 History amiodarone 200 mg tablet 200 mg PO DAILY 04/05/21 11/23/21 History rosuvastatin 10 mg tablet 10 mg PO DAILY 04/05/21 11/23/21 History sevelamer carbonate 800 mg tablet 2,400 mg PO TID 04/05/21 11/23/21 History (Renvela) amlodipine 5 mg tablet 5 mg PO DAILY #30 tabs 11/11/21 11/23/21 Rx clonidine HCl 0.2 mg tablet 0.2 mg PO BID 11/23/21 11/23/21 History furosemide 40 mg tablet (Lasix) 80 mg PO BID #120 tabs 11/24/21 Rx Allergies Allergy/AdvReac Type Severity Reaction Status Date / Time [place] Complexes Allergy Mild rash from Verified 11/23/21 01:29 metal ragweed pollen Allergy Mild [place] Verified 11/23/21 01:29 Past Med/Surg History Medical History BPH (benign prostatic hyperplasia) CAD (coronary artery disease) s/p LAD stents (2018 and 2019) CHF (congestive heart failure) Chronic kidney disease FOLLOWS WITH DR. TONY Diabetes mellitus, type 2 Dyslipidemia Environmental allergies REASON FOR INHALER GERD (gastroesophageal reflux disease) Hemodialysis patient FOR 2 YEARS/MONDAY, MONDAY, MONDAY AT [facility] HTN (hypertension) Neuropathy Paroxysmal atrial fibrillation Sinus node dysfunction Sleep apnea does not use CPAP Umbilical hernia Surgical History AV fistula RT ARM History of colonoscopy History of heart artery stent X 2 () History of loop recorder Implanted 05/01/2019 History of tooth extraction S/P CABG (coronary artery bypass graft) 2-VESSEL AT 05/2020 ([place]) Family History Other Hypertension No family history of adverse response to anesthesia Denies family history of Kidney disease Social History Smoking Status: Current every day smoker Tobacco Type: Cigarettes Cigarettes Per Day: 10; Second Hand Exposure: No; Hx Alcohol Use: Yes Alcohol type: beer and hard liquor Hx Substance Use: No Preferred Language: Japanese Communication Ability: Effective 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 Required: No Beliefs That Will Affect Care: None marital status: Current Living Situation: Alone How many Children do You have: 0 Feels Safe at Home: No Is there a partner from a previous relationship who is making you feel unsafe now?: No Assistive Devices: Walker Review of Systems A total of 10 systems reviewed and were otherwise negative Physical Exam Vital Signs Vital Signs - 24 hr 12/21/21 01:37 12/21/21 04:13 Temperature 36.6 C Temperature Source Oral Pulse Rate 69 Pulse Rate [Right] 66 Respiratory Rate 19 18 Respiratory Effort / Characteristics Non-Labored Spontaneous Respiratory Depth Normal Blood Pressure 150/90 H Blood Pressure [Left Arm] 148/67 H Blood Pressure Mean 110 Blood Pressure Mean [Left Arm] 94 Blood Pressure Position [Left Arm] Sitting Pulse Oximetry 98 93 Oxygen Delivery Method Room Air Sepsis Recent Fever Within 48 Hours No Sepsis New/Unexplained Change in Mental Status No Sepsis Action Taken by Nursing No Action Required VITALS: Vitals are noted on the nurse's note and reviewed by myself. Vital signs stable. GENERAL: Older appearing white male who is in no acute distress. He is cooperative with the examination. HEAD: Normocephalic atraumatic. NECK: Supple without nuchal rigidity. No lymphadenopathy. No thyromegaly. Cervical spine is nontender. HEART: Regular rate and rhythm without murmurs gallops or rubs. LUNGS: Clear to auscultation bilaterally without wheezes, rales or rhonchi. No retractions or accessory muscle use. MUSCULOSKELETAL: Moderate tenderness to the lateral and anterior aspect of the right ankle. There is some soft tissue edema to the lateral aspect of the right foot as well. Neurovascular status appears intact. Incidentally there appears to be an old scab over the anterior tibia that does not appear acute. Patient is not able to move the foot and ankle against resistance. No tenderness of the right knee or calf. NEURO: Patient was alert and oriented to person place and time. CN II through XII grossly intact. Course Administered Medications Discontinued Medications Fentanyl Citrate (Fentanyl Citrate 100 Mcg/2 Ml Vial) 50 mcg IV NOW STA Stop: 12/21/21 04:51 Last Admin: 12/21/21 04:59 Dose: 50 mcg Documented By: JESUS Morphine Sulfate (Morphine Sulfate 4 Mg/Ml 1 Ml Carp\Vial) 4 mg IV NOW STA Stop: 12/21/21 02:00 Last Admin: 12/21/21 02:37 Dose: 4 mg Documented By: MELISA Ondansetron HCl (Ondansetron Inj 2 Mg/Ml 2 Ml Vial) 4 mg IV NOW STA Stop: 12/21/21 02:00 Last Admin: 12/21/21 02:36 Dose: 4 mg Documented By: MELISA Medical Decision Making Differential Diagnosis Differential diagnosis includes, but is not limited to: Sprain, strain, fractur e, dislocation, subluxation, contusion, and others Laboratory Data Result diagrams: 12/21/21 02:27 12/21/21 02:27 Lab Results 12/21/21 12/21/21 12/21/21 Range/Units 02:27 02:27 04:07 WBC 10.52 (4.8-10.8) K/ul RBC 3.66 L (4.63-6.08) M/uL Hgb 11.3 L (14.0-18.0) g/dl Hct 36.1 L (40.1-51.0) % MCV 98.6 (80.0-100.0) fL MCH 30.9 (25.0-34.0) pg MCHC 31.3 L (32.0-36.0) g/dL RDW Std Deviation 55.8 H (36.4-46.3) fL RDW Coeff of Atif 15.9 H (11.5-14.5) % Plt Count 216 (130-400) K/uL MPV 10.5 (9.4-12.4) fL Immature Gran % (Auto) 0.6 % Neut % (Auto) 78.6 % Lymph % (Auto) 9.8 % Webb % (Auto) 7.9 % Eos % (Auto) 2.5 % Baso % (Auto) 0.6 % Neut # (Auto) 8.28 H (1.4-6.5) K/uL Lymph # (Auto) 1.03 L (1.2-3.4) K/uL Webb # (Auto) 0.83 H (0.24-0.82) K/uL Eos # (Auto) 0.26 (0-0.50) K/uL Baso # (Auto) 0.06 (0-0.2) K/uL Immature Gran # (Auto) 0.06 H (0.00-0.02) K/uL Sodium 136 (136-145) mmol/L Potassium 4.5 (3.5-5.1) mmol/L Chloride 94 L (98-107) mmol/L Carbon Dioxide 27 (21-32) mmol/L Anion Gap 15 H (3-11) BUN 58 H (6-23) mg/dl Creatinine 9.18 H* (0.6-1.4) mg/dl Est Cr Clr Drug Dosing 10.7 ml/min Est GFR ( Amer) 6.1 ml/min Est GFR (Non-Af Amer) 5.2 ml/min BUN/Creatinine Ratio 6.3 L (10-20) Glucose 259 H (70-99(Fasting)) mg/dl Calcium 9.3 (8.5-10.1) mg/dl Total Bilirubin 0.3 (0.2-1.0) mg/dl AST 13 (13-39) U/L ALT 10 (7-52) U/L Alkaline Phosphatase 43 (34-104) U/L Total Protein 7.3 (6.0-8.3) gm/dl Albumin 3.8 (3.4-5.0) gm/dl Globulin 3.5 (2.5-4.0) gm/dl Albumin/Globulin Ratio 1.1 (0.9-2) SARS-CoV-2, RNA, NAAT NEGATIVE (NEGATIVE) MDM Narrative Physical exam and history were performed. Nursing notes, EMR, and Medication List were personally reviewed. Patient appears to have fallen and injured his right foot and ankle as described above. X-ray was performed and does show an anterior dislocation of the distal tibia as well as suspected posterior malleoli are fracture. IV access was e stablished and baseline labs were performed. The patient was given IV morphine and IV Zofran. COVID was gathered. The patient was drinking water up until evaluation in the ER. He would be high risk for sedation based on his underlying medical disease. I discussed options of care with the patient. Utilizing shared decision making he was given 50 mcg IV fentanyl, and utilizing gentle traction and manipulation I was able to reduce the dislocation. The patient has more swelling now than on initial presentation and identifying pedal pulses were difficult, but they are intact on Doppler. Repeat x-ray was performed and does show adequate anatomic alignment. Right ankle was placed in an Ortho-Glass splint with neurovascular status remaining intact. The patient's blood work is as above and was reviewed. He does not have a significantly elevated white blood cell count or gross anemia. Creatinine is 9.18, however today was meant to be a dialysis day for the patient. Glucose is 259. I do have concern for the patient's recovery and wellbeing. He does live at home with multiple medical issues. He is at high risk for falling and may need discharge to a rehabilitation facility. At this time we are not able to facilitate that through the ER, and the case was discussed with the on-call hospitalist team. Please see their dictation for further patient course, plan, and disposition. The chart was completed utilizing 1-4 All Speech Voice Recognition Software. Grammatical errors, random word insertions, pronoun errors, and incomplete sentences are an occasional consequence of this system due to software limitations, ambient noise, and hardware issues. Any formal questions or concerns about the content, text, or information contained within the body of this dictation should be directly addressed to the provider for clarification. . Impression & Plan Closed dislocation of right ankle, Ankle fracture, right, Fall Discharge Plan Visit Data Chief Complaint: Ankle Pain Stated Complaint: Fall, Ankle Injury ED Provider: Whit Villegas ED Midlevel Provider: Scotty Brambila Discharge Problem: Closed dislocation of right ankle, Ankle fracture, right, Fall Forms Stand Alone Forms: My [facility] [place] e[employer]onne[employer] Prescriptions Prescriptions: No Action amiodarone 200 mg tablet 200 mg PO DAILY rosuvastatin 10 mg tablet 10 mg PO DAILY insulin aspart U-100 [Novolog PenFill U-100 Insulin] 100 unit/mL Cartridge 10 unit SUBCUT AC tamsulosin 0.4 mg Capsule 0.4 mg PO QAM albuterol sulfate 90 mcg/actuation Hfa Aerosol Inhaler 2 puff INHALATION Q6H PRN (Reason: Shortness Of Breath) loratadine 10 mg Tablet 10 mg PO DAILY PRN (Reason: Allergy Symptoms) clopidogrel [Plavix] 75 mg Tablet 75 mg PO QAM insulin glargine [Lantus Solostar U-100 Insulin] 100 unit/mL (3 mL) insulin pen 50 unit SUBCUT BID Label Comments: patient states he took 1/2 a dose ProRenal 8 mg iron-800 mcg-1,000 unit tablet 1 tab PO QAM sevelamer carbonate [Renvela] 800 mg tablet 2,400 mg PO TID nitroglycerin [Nitrostat] 0.4 mg Tablet, Sublingual 0.4 mg sublingual UD PRN (Reason: chest pain) Qty: 20 0RF Rx Instructions: NEEDED FOR CHEST PAIN : ONE TABLET UNDER THE TONGUE EVERY FIVE MINUTES UP TO 3 DOSES. Eliquis 5 mg Tablet 5 mg PO BID amlodipine 5 mg tablet 5 mg PO DAILY Qty: 30 0RF clonidine HCl 0.2 mg Tablet 0.2 mg PO BID furosemide [Lasix] 40 mg Tablet 80 mg PO BID Qty: 120 3RF Referrals Referrals: [facility] [Primary Care Provider] -
[2021-12-21] MEDS ORDERED: ONDANSETRON INJ 2 MG/ML 2 ML VIAL IV STA (01:59)
[2021-12-21] MEDS ORDERED: MoRPHine SULFATE 4 MG/ML 1 ML CARP\\VIAL IV STA (01:59)
[2021-12-21 02:35] LABS: Basophils # (auto) 0.06 K/uL (0-0.2); Basophils % (auto) 0.6 %; Eosinophils # (auto) 0.26 K/uL (0-0.50); Eosinophils % (auto) 2.5 %; Hematocrit (blood only) 36.1 % (40.1-51.0); Hemoglobin 11.3 g/dl (14.0-18.0); Immature Granulocytes # (auto) 0.06 K/uL (0.00-0.02); Immature Granulocytes % (auto) 0.6 %; Lymphocytes # (auto) 1.03 K/uL (1.2-3.4); Lymphocytes % (auto) 9.8 %; Mean Corpuscular Hemoglobin 30.9 pg (25.0-34.0); Mean Corpuscular Hgb Conc 31.3 g/dL (32.0-36.0); Mean Corpuscular Volume 98.6 fL (80.0-100.0); Mean Platelet Volume 10.5 fL (9.4-12.4); Monocytes # (auto) 0.83 K/uL (0.24-0.82); Monocytes % (auto) 7.9 %; Neutrophils # (auto) 8.28 K/uL (1.4-6.5); Neutrophils % (auto) 78.6 %; Platelet Count 216 K/uL (130-400); RDW Coefficient of Variation 15.9 % (11.5-14.5); RDW Standard Deviation 55.8 fL (36.4-46.3); Red Blood Count 3.66 M/uL (4.63-6.08); White Blood Count 10.52 K/ul (4.8-10.8)
[2021-12-21 03:09] LABS: Albumin Globulin Ratio 1.1 (0.9-2); Albumin Level 3.8 gm/dl (3.4-5.0); BUN Creatinine Ratio 6.3 (10-20); Bilirubin,Total 0.3 mg/dl (0.2-1.0); Calcium 9.3 mg/dl (8.5-10.1); Creatinine Clr Calc Pharmacy 10.7 ml/min; Est GFR (African American) 6.1 ml/min; Est GFR (Non-African American) 5.2 ml/min; Globulin 3.5 gm/dl (2.5-4.0); Potassium 4.5 mmol/L (3.5-5.1); Total Protein 7.3 gm/dl (6.0-8.3)
[2021-12-21] MEDS ORDERED: fentaNYL citrate 100 MCG/2 ML VIAL IV STA (04:50)
--- NOTE | 2021-12-21 05:53 | History & Physical Report ---
Date of Service December 21, 2021 Assessment & Plan (1) Closed dislocation of right ankle: Plan: Due to mechanical fall. Set in the ER, but concern for acute fracture as well per [employer]. - Pain control - Orthopedics consulted - No weight-bearing on right leg for now - Unlikely they would do surgery today, did not make him NPO, but did hold apixaban and Plavix. (2) Fall: Plan: Mechanical in nature on wet floor. - PT/OT - Restrictions as above (3) CAD (coronary artery disease): Plan: S/p CABG. - Hold Plavix until seen by surgery (4) End-stage renal disease on hemodialysis: Plan: Follows with [facility]. Normal HD days are T-Th-Sat. - Nephrology consulted (5) HTN (hypertension): Plan: BP in ER is 150/65. - Continue home amlodipine, clonidine, Lasix (6) Diabetes mellitus type 2 in obese: Plan: A1c was 7.8%. - Continue home Lantus 10 units QAM - Continue Novolog (or equivalent) 4 units AC (lowered from home 10 units) - Sliding scale insulin (7) Paroxysmal atrial flutter: Plan: Presently auscultation sounds regular to me. - Hold apixaban until seen by orthopedics - Continue home amiodarone - Will get EKG mostly to ensure still in sinus rhythm and for any pre-op desire from anesthesia. (8) BPH (benign prostatic hyperplasia): Plan: Attempted to use the urinary, but unable to pass urine. - Continue home tamsulosin - Bladder scans PRN (9) DVT prophylaxis: Plan: SCDs -> Resume apixaban after orthopedic evaluation History of Present Illness Primary Care Provider: [facility] 71yo M w/ hx of ESRD, HTN, afib who presents after a mechanical fall at home. Per patient, slipped on a wet floor with right leg giving out underneath him. Immediate right ankle pain. No prodrome symptoms, no lightheadedness, or other symptoms. Patient states otherwise was in his normal state of health since his discharge last month. Allergies Allergy/AdvReac Type Severity Reaction Status Date / Time [place] Complexes Allergy Mild rash from Verified 11/23/21 01:29 metal ragweed pollen Allergy Mild [place] Verified 11/23/21 01:29 Home Medications Medication Instructions Recorded Confirmed Type albuterol sulfate 90 mcg/actuation 2 puff inhalation Q6H PRN 01/06/19 11/23/21 History aerosol inhaler Shortness Of Breath insulin aspart U-100 100 unit/mL 10 unit subcut AC 01/06/19 11/23/21 History subcutaneous cartridge (Novolog PenFill U-100 Insulin aspart) loratadine 10 mg tablet 10 mg PO DAILY PRN Allergy Symptoms 01/06/19 11/23/21 History tamsulosin 0.4 mg capsule 0.4 mg PO QAM 01/06/19 11/23/21 History clopidogrel 75 mg tablet (Plavix) 75 mg PO QAM 03/06/19 11/23/21 History insulin glargine 100 unit/mL (3 50 unit subcut BID 03/06/19 11/23/21 History mL) subcutaneous pen (Lantus Solostar U-100 Insulin) vit B complx, C-iron 8 mg-folic 1 tab PO QAM 09/26/19 11/23/21 History acid 800 mcg-D3 1,000 unit-zinc tablet (ProRenal) nitroglycerin 0.4 mg sublingual 0.4 mg sublingual UD PRN chest 12/27/19 11/23/21 Rx tablet (Nitrostat) pain #20 tabs apixaban 5 mg tablet (Eliquis) 5 mg PO BID 08/21/20 11/23/21 History amiodarone 200 mg tablet 200 mg PO DAILY 04/05/21 11/23/21 History rosuvastatin 10 mg tablet 10 mg PO DAILY 04/05/21 11/23/21 History sevelamer carbonate 800 mg tablet 2,400 mg PO TID 04/05/21 11/23/21 History (Renvela) amlodipine 5 mg tablet 5 mg PO DAILY #30 tabs 11/11/21 11/23/21 Rx clonidine HCl 0.2 mg tablet 0.2 mg PO BID 11/23/21 11/23/21 History furosemide 40 mg tablet (Lasix) 80 mg PO BID #120 tabs 11/24/21 Rx Past Med/Surg History Medical History BPH (benign prostatic hyperplasia) CAD (coronary artery disease) s/p LAD stents (2018 and 2019) CHF (congestive heart failure) Chronic kidney disease FOLLOWS WITH DR. TONY Diabetes mellitus, type 2 Dyslipidemia Environmental allergies REASON FOR INHALER GERD (gastroesophageal reflux disease) Hemodialysis patient FOR 2 YEARS/MONDAY, MONDAY, MONDAY AT [facility] HTN (hypertension) Neuropathy Paroxysmal atrial fibrillation Sinus node dysfunction Sleep apnea does not use CPAP Umbilical hernia Surgical History AV fistula RT ARM History of colonoscopy History of heart artery stent X 2 () History of loop recorder Implanted 05/01/2019 History of tooth extraction S/P CABG (coronary artery bypass graft) 2-VESSEL AT 05/2020 ([place]) Family History Other Hypertension No family history of adverse response to anesthesia Denies family history of Kidney disease Social History Smoking Status: Current every day smoker Tobacco Type: Cigarettes Cigarettes Per Day: 10; Second Hand Exposure: No; Hx Alcohol Use: Yes Alcohol type: beer and hard liquor Hx Substance Use: No Preferred Language: Tongan Communication Ability: Effective 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 Home Based Required: No Beliefs That Will Affect Care: None marital status: Current Living Situation: Alone How many Children do You have: 0 Feels Safe at Home: No Is there a partner from a previous relationship who is making you feel unsafe now?: No Assistive Devices: Walker Review of Systems Review of Systems: All systems reviewed & are unremarkable except as noted in HPI & below Physical Exam Constitutional: WD/WN, vitals as above Eyes: EOM intact bilaterally; no conjunctival abnormality ENMT: external ear and nose normal, oropharynx normal Neck: trachea midline, no thyromegaly normal visual inspection Respiratory: normal respiratory effort, lungs clear to auscultation no respiratory distress Cardiovascular: RRR, no murmur, no edema Gastrointestinal (Abdomen): Inspection/Auscultation: + visible herniation; + abdomen abnormal to inspection Percussion/Palpation: + abdomen tender (Mild) and abdomen soft; no guarding and abdomen not rigid Musculoskeletal: no cyanosis or clubbing, extremities motor strength 5/5 Ankle: + ankle abnormal to inspection (Right ankle/leg in splint) Skin: no rashes, warm and dry Neurologic: moves all extremities and awake Psychiatric: Orientation: alert, oriented to person and cooperative Results & Data Results & Data ([facility]) Vital Signs (Past 12 Hours) Vital Signs Temp Pulse Pulse Resp BP BP Pulse Ox 12/21/21 04:13 66 18 148/67 H 93 12/21/21 01:37 36.6 C 69 19 150/90 H 98 O2 Del Method 12/21/21 04:13 Room Air 12/21/21 01:37 PG Care Time/CCT Total # of Minutes Spent Total Time Spent with Patient: Total time spent is greater than 50% in coordination of care (as documented) at patient's floor/unit and/or counseling patient: Coding Level of Care Code 40397 Initial Inpt Care Lvl 3 Diagnoses Closed dislocation of right ankle S93.04XA Fall W19.XXXA CAD (coronary artery disease) I25.119 Associated angina: with unspecified angina Coronary Disease-Associated Artery/Lesion type: [place] artery [place] vs. transplanted heart: [place] heart End-stage renal disease on hemodialysis N18.6; Z99.2 HTN (hypertension) I10 Hypertension type: unspecified Diabetes mellitus type 2 in obese E11.69; E66.9 Paroxysmal atrial flutter I48.92 BPH (benign prostatic hyperplasia) N40.0 Lower urinary tract symptom presence: symptoms absent DVT prophylaxis Z29.9 (1) BPH (benign prostatic hyperplasia) Lower urinary tract symptom presence: symptoms absent Qualified Code(s): N40.0 - Benign prostatic hyperplasia without lower urinary tract symptoms (2) CAD (coronary artery disease) Associated angina: with unspecified angina Coronary Disease-Associated Artery/Lesion type: [place] artery [place] vs. transplanted heart: [place] heart Qualified Code(s): I25.119 - Atherosclerotic heart disease of [place] coronary artery with unspecified angina pectoris (3) HTN (hypertension) Hypertension type: unspecified Qualified Code(s): I10 - Essential (primary) hypertension
--- NOTE | 2021-12-21 06:36 | XRay Report ---
XR ankle RT 2V HISTORY: 71 years-old Male s/p reduction acute right ankle fracture COMPARISON: Right ankle radiographs of same day at 1:55 AM TECHNIQUE: 2 views of the right ankle FINDINGS: Status post reduction and casting of the acute bimalleolar right ankle fracture. The medial malleolar fracture component is displaced medially 4 mm. 3 mm displacement of the posterior malleolar fracture . There is improved yet persistent tibiotalar subluxation. Moderate soft tissue swelling. IMPRESSION: Mildly improved alignment of the acute right ankle fracture status post reduction and allyn ting with persistent displacement and subluxation as above. ACT 112: Negative or not required by law. The above report was generated using voice recognition software. It may contain grammatical, syntax o r spelling errors. Electronically signed by: Carmelo Dumont M.D. 12/21/2021 6:34 AM
--- NOTE | 2021-12-21 06:43 | XRay Report ---
XR ankle RT 2V HISTORY: 71 years-old Male Fall, injury acute right ankle pain status post fall COMPARISON: None TECHNIQUE: 2 views of the right ankle FINDINGS: Mild to moderate circumferential soft tissue swelling with arterial calcifications. Tiny intra-articu lar bone fragments adjacent to the distal tibia. There is an acute medial malleolar intra-articular f racture demonstrates 2 mm medial displacement. Intra-articular acute posterior malleolar fracture of the distal tibia demonstrates 2.5 cm of posterior displacement. There is dislocation of the tibiotala r joint with the talus posterior to the distal tibia. Spurring of the calcaneus. Mild midfoot and hin dfoot osteoarthritis. IMPRESSION: Acute medial and posterior malleolar fractures of the distal tibia with tibiotalar disloc ation. ACT 112: Negative or not required by law. The above report was generated using voice recognition software. It may contain grammatical, syntax o r spelling errors. Electronically signed by: Carmelo Dumont M.D. 12/21/2021 6:42 AM
[2021-12-21] MEDS ORDERED: GLUCOSE 10 TAB/TUBE PO PRN (08:59)
[2021-12-21] MEDS ORDERED: DEXTROSE 50% 50 ML SYRINGE IV PRN (08:59)
[2021-12-21] MEDS ORDERED: ALBUTEROL HFA 8 GM INHALER INH PRN (08:59)
[2021-12-21] MEDS ORDERED: GLUCAGON FOR INJ 1 MG VIAL SQ PRN (08:59)
[2021-12-21] MEDS ORDERED: GLUCOSE 40% GEL 15 GM TUBE PO PRN (08:59)
[2021-12-21] MEDS: LANTUS PER UNIT CHARGE SQ SCH ×2 (10:14→21:08)
--- NOTE | 2021-12-21 10:14 | Nephrology Consultation ---
Date of Consultation December 21, 2021 Assessment & Plan (1) End-stage renal disease on hemodialysis: (2) HTN (hypertension): (3) Ankle fracture, right: (4) Fall: (5) Anemia due to chronic kidney disease: Plan ESRD on hemodialysis Monday, , Monday at [facility] [place]. Admitted after a fall at home and right ankle closed dislocation. Currently blood pressure, volume status and electrolyte acceptable although his almost 7 kg above his dry weight, he 10 to have 6-7 kg weight gain in between dialysis. hemoglobin 11.3 -- Plan for dialysis today as his regular schedule, aim for ultrafiltration to get close to his dry weight -- dose medications for EGFR less than 10, right arm nephrology precaution -- continue on Renvela 3 tab t.i.d. with meals, renal vitamin. avoid IV fluid -- continue on Lasix 80 mg twice a day will follow Thank you for allowing me to participate in your patient's care. It was a pleasure to see Angel. History of Present Illness Reason for Consultation: ESRD, on hemodialysis, missed dialysis this morning as came to ER, due for dialysis. Attending Physician: Karan Grady MD History of Present Illness Mr. Angel Solorio is a 71-year-old male with ESRD on HD, HTN, DM, A fib, CAD, admitted to the hospital with right ankle displacement after a fall. Nephrology consult was requested to provide urgent hemodialysis for volume overload and respiratory distress. EMS records are reviewed in detail during patient's visit. Angel lopez presented to ER this morning after he had a fall at home, he just slipped on a wet floor. Upon arrival to ER x-ray of the ankle showed displacement and it was reduced in ER. currently waiting for orthopedic evaluation for possible need for intervention. His last dialysis was Monday, he is due for dialysis today. Electrolyte acceptable on lab on admission. Blood pressure acceptable. Denies any significant shortness of breath or chest pain. His almost 7 kg above his dry weight which is not uncommon for him. Has ESRD secondary to diabetes mellitus and hypertension, on HD since 2018, dialyzes on a TTS schedule via Rt BC av fistula.Currently on 4 hours 30 minutes dialysis, EDW 130 kg, however he always has issues with significant volume overload in between dialysis treatment. He still makes some urine, on Lasix twice a day. Has h/o CAD s/p prior PCI, heart failure with preserved ejection fraction, intermittent atrial fibrillation / atrial flutter with AV node dysfunction, as well obstructive sleep apnea, on amiodarone. He continues to have pain in his right ankle but otherwise asymptomatic. Allergies Allergy/AdvReac Type Severity Reaction Status Date / Time [place] Complexes Allergy Mild rash from Verified 11/23/21 01:29 metal ragweed pollen Allergy Mild [place]GE[place] Verified 11/23/21 01:29 Home Medications Medication Instructions Recorded Confirmed Type albuterol sulfate 90 mcg/actuation 2 puff inhalation Q6H PRN 01/06/19 11/23/21 History aerosol inhaler Shortness Of Breath insulin aspart U-100 100 unit/mL 10 unit subcut AC 01/06/19 11/23/21 History subcutaneous cartridge (Novolog PenFill U-100 Insulin aspart) loratadine 10 mg tablet 10 mg PO DAILY PRN Allergy Symptoms 01/06/19 11/23/21 History tamsulosin 0.4 mg capsule 0.4 mg PO QAM 01/06/19 11/23/21 History clopidogrel 75 mg tablet (Plavix) 75 mg PO QAM 03/06/19 11/23/21 History insulin glargine 100 unit/mL (3 50 unit subcut BID 03/06/19 11/23/21 History mL) subcutaneous pen (Lantus Solostar U-100 Insulin) vit B complx, C-iron 8 mg-folic 1 tab PO QAM 09/26/19 11/23/21 History acid 800 mcg-D3 1,000 unit-zinc tablet (ProRenal) nitroglycerin 0.4 mg sublingual 0.4 mg sublingual UD PRN chest 12/27/19 11/23/21 Rx tablet (Nitrostat) pain #20 tabs apixaban 5 mg tablet (Eliquis) 5 mg PO BID 08/21/20 11/23/21 History amiodarone 200 mg tablet 200 mg PO DAILY 04/05/21 11/23/21 History rosuvastatin 10 mg tablet 10 mg PO DAILY 04/05/21 11/23/21 History sevelamer carbonate 800 mg tablet 2,400 mg PO TID 04/05/21 11/23/21 History (Renvela) amlodipine 5 mg tablet 5 mg PO DAILY #30 tabs 11/11/21 11/23/21 Rx clonidine HCl 0.2 mg tablet 0.2 mg PO BID 11/23/21 11/23/21 History furosemide 40 mg tablet (Lasix) 80 mg PO BID #120 tabs 11/24/21 Rx Patient History Medical History (Updated 12/21/21 @ 10:12 by Park Raza MD) Anemia due to chronic kidney disease BPH (benign prostatic hyperplasia) CAD (coronary artery disease) s/p LAD stents (2018 and 2019) CHF (congestive heart failure) Chronic kidney disease FOLLOWS WITH DR. TONY Diabetes mellitus, type 2 Dyslipidemia Environmental allergies REASON FOR INHALER GERD (gastroesophageal reflux disease) Hemodialysis patient FOR 2 YEARS/MONDAY, MONDAY, MONDAY AT [facility] HTN (hypertension) Neuropathy Paroxysmal atrial fibrillation Sinus node dysfunction Sleep apnea does not use CPAP Umbilical hernia Surgical History AV fistula RT ARM History of colonoscopy History of heart artery stent X 2 () History of loop recorder Implanted 05/01/2019 History of tooth extraction S/P CABG (coronary artery bypass graft) 2-VESSEL AT 05/2020 ([place]) Family History Other Hypertension No family history of adverse response to anesthesia Denies family history of Kidney disease Social History Smoking Status: Former smoker Tobacco Type: Cigarettes Cigarettes Per Day: 10; Second Hand Exposure: No; Hx Alcohol Use: Yes Alcohol type: beer, wine and hard liquor Hx Substance Use: No Preferred Language: Occitan Communication Ability: Effective Chute Operator Required: No Beliefs That Will Affect Care: None marital status: Current Living Situation: Alone How many Children do You have: 0 Feels Safe at Home: Yes Assistive Devices: Walker and Wheelchair Review of Systems Review of Systems: Detailed review of system was otherwise unremarkable except mentioned above. Physical Exam Constitutional: WD/WN, vitals as above no acute distress Eyes: + anicteric sclerae ENMT: Ears: no hearing impairment Neck: normal visual inspection Respiratory: normal respiratory effort; no respiratory distress and no cough Auscultation: lungs clear to auscultation bilaterally Cardiovascular: Rate/Rhythm: regular rate and regular rhythm Heart Sounds: normal S1 and normal S2 Extremities: + AV fistula ( Right brachiocephalic AV fistula with thrill and bruit); no edema Gastrointestinal (Abdomen): Inspection/Auscultation: normal bowel sounds Percussion/Palpation: abdomen soft; abdomen nontender reducible hernia. Musculoskeletal: Extremities: extremities normal to inspection Skin: no rashes Neurologic: no focal motor deficits Psychiatric: Orientation: alert and oriented x 3 Affect: euthymic affect Results & Data ([facility]) Vital Signs (Past 12 Hours) Vital Signs Temp Pulse Pulse Resp BP BP Pulse Ox 12/21/21 09:56 12/21/21 09:00 36.5 C 64 17 153/85 H 95 12/21/21 08:15 70 16 124/64 95 12/21/21 08:00 16 95 12/21/21 06:33 77 18 119/56 L 95 12/21/21 04:13 66 18 148/67 H 93 12/21/21 01:37 36.6 C 69 19 150/90 H 98 O2 Del Method O2 Flow Rate 12/21/21 09:56 Nasal Cannula 2 12/21/21 09:00 Nasal Cannula 2 12/21/21 08:15 Room Air 12/21/21 08:00 Room Air 12/21/21 06:33 Room Air 12/21/21 04:13 Room Air 12/21/21 01:37 PG Care Time/CCT Total # of Minutes Spent Total Time Spent with Patient: Total time spent is greater than 50% in coordination of care (as documented) at patient's floor/unit and/or counseling patient: Coding Level of Care Code 12003 Initial Inpt Care Lvl 3 Diagnoses End-stage renal disease on hemodialysis N18.6; Z99.2 HTN (hypertension) I10 Hypertension type: unspecified Ankle fracture, right S82.891A Fall W19.XXXA Anemia due to chronic kidney disease N18.9; D63.1 (1) HTN (hypertension) Hypertension type: unspecified Qualified Code(s): I10 - Essential (primary) hypertension
[2021-12-21] MEDS: INSULIN ASPART PER UNIT SC SCH ×4 (10:15→21:08)
[2021-12-21] MEDS: SEVELAMER HCL 800 MG TABLET PO SCH ×3 (10:20→21:06)
[2021-12-21] MEDS: NEPHROCAPS PO SCH (10:21)
[2021-12-21] MEDS: ROSUVASTATIN CALCIUM 10 MG TAB PO SCH (10:22)
[2021-12-21] MEDS: AMIODARONE 200 MG TAB PO SCH (10:22)
[2021-12-21] MEDS: TAMSULOSIN HCL 0.4 MG CAP PO SCH (10:23)
[2021-12-21] MEDS: FUROSEMIDE 80 MG TAB PO SCH ×2 (10:23→17:56)
[2021-12-21] MEDS: cloNIDine HCL 0.1 MG TAB PO SCH ×2 (10:24→21:06)
[2021-12-21] MEDS: amLODIPine BESYLATE 5 MG TAB PO SCH (11:10)
--- NOTE | 2021-12-21 11:11 | History & Physical Bridge Note ---
Date of Service December 21, 2021 History & Physical Bridge Note I have examined the patient, reviewed the History & Physical and in the interval since the performance of the History & Physical I have noted the following changes of clinical significance: no changes noted Patient evaluated in room 354-2 at bedside. Sitting upright and using urinal currently. Planning for HD today as seen by Dr Raza this morning. Not yet seen by orthopedics service but patient reports R ankle being set in ER but had been chronically dislocated for about a decade. He had been at home and slipped on wet ground and thinks he bent his foot back. Currently no fever/chills. Denied any syncope/palpitations prior to fall. No chest pain. Shortness of breath at baseline and on room air currently up in bed but states increased shortness of breath due to pain in his foot when standing. Awaiting eval by orthopedics currently. NVI and cap refill <3 seconds. Toes mobile. Split and dressing/wrap to RLE. Rating pain 8/10, got something in IV last night but nothing else ordered. Ordered oxycodone PO prn/Dilaudid 0.5mg IV prn for breakthrough HR appears regular, EKG ordered in system but not yet done to confirm not in afib (hx of, eliquis on hold for possible OR) Continued inpatient stay Await ortho eval, then consult PT/OT
[2021-12-21] MEDS ORDERED: SODIUM CHLORIDE 0.9% 1000ML 1,000 ML IV PRN (12:10)
[2021-12-21] MEDS ORDERED: HEPARIN SOD (PORCINE) 1000 UNIT/ML IV ONE (12:10)
--- NOTE | 2021-12-21 13:59 | Consultation Report ---
ORTHOPEDIC NOTE DATE OF SERVICE: 12/21/2021 The patient is a 71-year-old white male who was admitted after having had a fracture dislocation of h is right ankle. Fracture was reduced in the Emergency Room. The patient was placed into a padded spl int. X-rays have been reviewed. The patient has a medial malleolar fragment, which is displaced. T he fracture has been reduced back to the ankle mortise. The patient is currently missing, not in the room. We will discuss with the patient as well as family on plans for open reduction and internal f ixation, will need fixation of this medial fragment. We will also discuss with Dr. Ramesh franco possible fixation tomorrow pending medical clearance. ASSESSMENT AND PLAN: Status post fracture dislocation, right ankle. Plan for open reduction and int ernal fixation tomorrow pending medical clearance. Job ID: [id number]
--- NOTE | 2021-12-21 15:16 | Orthopedic Consultation ---
Date of Consultation December 21, 2021 Assessment & Plan (1) Ankle fracture, right: Right ankle fracture dislocation. X-rays reviewed. Patient with noted medial malleolar and posterior malleolar fractures. Ankle has been reduced although the tibia is still in a slight subluxed position. Patient will need to keep the right upper extremity on 1 or 2 pillows for elevation. We will need to check how swollen his ankle is to see if he is a candidate for surgery sooner than later. If swelling is too bad to plan for early surgery, he will likely need to keep the extremity elevated for multiple days. I discussed with the patient that he could have surgery as soon as tomorrow versus having to wait at least a week for his swelling to come down if he has any. We discussed that he may likely need a rehab stay if that is to happen. He was in agreement secondary to the fact that he is unable to get around well with the fracture currently. I have discussed the case with Dr. Chandler who is on-call. We will ascertain his swelling and go from there. History of Present Illness Reason for Consultation: Fracture dislocation right ankle Attending Physician: Karan Grady MD History of Present Illness Patient is a 71-year-old male with past medical history of anemia due to chronic disease, BPH, CAD, CHF, chronic kidney disease on dialysis, diabetes mellitus type 2, dyslipidemia, GERD, hypertension, neuropathy, paroxysmal atrial fibrillation, sinus node dysfunction, sleep apnea who was at home earlier this morning doing his normal routine. Patient states that as he was ambulating in his home, he slipped on some wet [place] and he ended up falling causing his right leg to go beneath him. He had immediate pain and deformity in the right ankle and was unable to ambulate. He denies hitting his head. There was no loss of consciousness. He denies any shortness of breath, chest pain, lightheadedness prior to or after the fall. He was brought to the emergency room and seen by the staff. X-rays were taken and found that he had a fracture dislocation of the right ankle. The ER staff did a closed reduction of the right ankle and repeat films showed the relocated ankle joint with a noted medial malleolar fracture as well as a posterior malleolar fracture. Moderate soft tissue swelling was noted. The ankle and lower extremity were placed in a posterior splint with a medial lateral buttress splint as well. Patient was admitted for further care and we have been asked to take care of his ankle fracture. Allergies Allergy/AdvReac Type Severity Reaction Status Date / Time [place] Complexes Allergy Mild rash from Verified 11/23/21 01:29 metal ragweed pollen Allergy Mild [place]GE[place] Verified 11/23/21 01:29 Home Medications Medication Instructions Recorded Confirmed Type albuterol sulfate 90 mcg/actuation 2 puff inhalation Q6H PRN 01/06/19 11/23/21 History aerosol inhaler Shortness Of Breath insulin aspart U-100 100 unit/mL 10 unit subcut AC 01/06/19 11/23/21 History subcutaneous cartridge (Novolog PenFill U-100 Insulin aspart) loratadine 10 mg tablet 10 mg PO DAILY PRN Allergy Symptoms 01/06/19 11/23/21 History tamsulosin 0.4 mg capsule 0.4 mg PO QAM 01/06/19 11/23/21 History clopidogrel 75 mg tablet (Plavix) 75 mg PO QAM 03/06/19 11/23/21 History insulin glargine 100 unit/mL (3 50 unit subcut BID 03/06/19 11/23/21 History mL) subcutaneous pen (Lantus Solostar U-100 Insulin) vit B complx, C-iron 8 mg-folic 1 tab PO QAM 09/26/19 11/23/21 History acid 800 mcg-D3 1,000 unit-zinc tablet (ProRenal) nitroglycerin 0.4 mg sublingual 0.4 mg sublingual UD PRN chest 12/27/19 11/23/21 Rx tablet (Nitrostat) pain #20 tabs apixaban 5 mg tablet (Eliquis) 5 mg PO BID 08/21/20 11/23/21 History amiodarone 200 mg tablet 200 mg PO DAILY 04/05/21 11/23/21 History rosuvastatin 10 mg tablet 10 mg PO DAILY 04/05/21 11/23/21 History sevelamer carbonate 800 mg tablet 2,400 mg PO TID 04/05/21 11/23/21 History (Renvela) amlodipine 5 mg tablet 5 mg PO DAILY #30 tabs 11/11/21 11/23/21 Rx clonidine HCl 0.2 mg tablet 0.2 mg PO BID 11/23/21 11/23/21 History furosemide 40 mg tablet (Lasix) 80 mg PO BID #120 tabs 11/24/21 Rx Patient History Medical History (Updated 12/22/21 @ 13:17 by Mehdi Roberts MD) Anemia due to chronic kidney disease BPH (benign prostatic hyperplasia) CAD (coronary artery disease) s/p LAD stents (2018 and 2019) CABG 2020 CHF (congestive heart failure) normal LV function Chronic kidney disease FOLLOWS WITH DR. TONY Diabetes mellitus, type 2 Dyslipidemia Environmental allergies REASON FOR INHALER GERD (gastroesophageal reflux disease) Hemodialysis patient FOR 2 YEARS/MONDAY, MONDAY, MONDAY AT [facility] HTN (hypertension) Neuropathy Paroxysmal atrial fibrillation Pulmonary hypertension Sinus node dysfunction Sleep apnea does not use CPAP Umbilical hernia Surgical History AV fistula RT ARM History of colonoscopy History of heart artery stent X 2 () History of loop recorder Implanted 05/01/2019 History of tooth extraction S/P CABG (coronary artery bypass graft) 2-VESSEL AT 05/2020 ([place]) Family History Other Hypertension No family history of adverse response to anesthesia Denies family history of Kidney disease Social History Smoking Status: Former smoker Tobacco Type: Cigarettes Cigarettes Per Day: 10; Second Hand Exposure: No; Hx Alcohol Use: Yes Alcohol type: beer, wine and hard liquor Hx Substance Use: No Preferred Language: Citizen Of [place] Communication Ability: Effective 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 He is alert and oriented x3. No acute distress. Pleasant cooperative. On examination of his right lower extremity, he has a well-placed splint over the right ankle and lower extremity. Toes are pink and warm. He has good range of motion and and patient does have neuropathy. Currently with all that is going on in dialysis, dressing is left intact at this time. Denies calf pain. Denies right knee pain at this time. Right hip is not affected. Left lower extremity is benign at this time and is nontender at the hip, knee, ankle. Upper extremities are unaffected at this time. He is currently undergoing dialysis and his right upper extremity is in use for this. Left upper extremity is within normal limits. Results & Data ([facility]) Vital Signs (Past 12 Hours) Vital Signs Temp Pulse Pulse Pulse Resp BP BP 12/21/21 13:30 62 111/58 L 12/21/21 13:00 60 103/62 12/21/21 12:45 60 117/62 12/21/21 12:35 59 L 123/65 12/21/21 12:28 36.9 C 61 12/21/21 10:19 66 148/72 H 12/21/21 09:56 12/21/21 09:00 36.5 C 64 17 153/85 H 12/21/21 08:15 70 16 124/64 12/21/21 08:00 16 12/21/21 06:33 77 18 119/56 L 12/21/21 04:13 66 18 148/67 H Pulse Ox O2 Del Method O2 Flow Rate 12/21/21 13:30 12/21/21 13:00 12/21/21 12:45 12/21/21 12:35 12/21/21 12:28 12/21/21 10:19 12/21/21 09:56 Nasal Cannula 2 12/21/21 09:00 95 Nasal Cannula 2 12/21/21 08:15 95 Room Air 12/21/21 08:00 95 Room Air 12/21/21 06:33 95 Room Air 12/21/21 04:13 93 Room Air Diagnostic Findings Patient:LYNN BENZ Admit Date:12/21/21 MR#:[id number] Address1:[address] [place] [address] Acct ID:[id number] Address2: Date:1950 [facility] Zip:[place] [address] Age:71 Location:ED Sex:M Room/Bed: Att Phy: Diagnosis:Fall, Ankle Injury Rvaen Phy:[facility] Affairs, Hospital Service Date:12/21/21 Fam Phy: Interpreting Phy:Carmelo DumontAdmit Phy: Ordering Phy:Scotty Brambila PA-C cc: ~ XR ankle RT 2V HISTORY: 71 years-old Male s/p reduction acute right ankle fracture COMPARISON: Right ankle radiographs of same day at 1:55 AM TECHNIQUE: 2 views of the right ankle FINDINGS: Status post reduction and casting of the acute bimalleolar right ankle fracture. The medial malleolar fracture component is displaced medially 4 mm. 3 mm displacement of the posterior malleolar fracture. There is improved yet persis tent tibiotalar subluxation. Moderate soft tissue swelling. IMPRESSION: Mildly improved alignment of the acute right ankle fracture status post reduction and casting with persistent displacement and subluxation as above. ACT 112: Negative or not required by law. The above report was generated using voice recognition software. It may contain grammatical, syntax or spelling errors. Electronically signed by: Carmelo Dumont M.D. 12/21/2021 6:34 AM
[2021-12-21] MEDS: HEPARIN SOD (PORCINE) 1000 UNIT/ML IV SCH (15:37)
--- NOTE | 2021-12-21 18:08 | XRay Report ---
XR chest 1V portable CLINICAL HISTORY: pre-op clearance. Evaluate cardiopulmonary status COMPARISON STUDY: 11/23/2021 TECHNIQUE: 1 view of the chest FINDINGS: Single frontal view of the chest demonstrates the heart to again be enlarged status post previous car diothoracic surgery. A loop recorder is in place. Chronic prominence of the interstitial markings is again seen at the lung bases with resolution of left basilar atelectasis. The lungs are clear of alve olar opacities. There is no evidence for pleural effusion. There is no evidence for vascular congesti on. There is no acute osseous pathology. IMPRESSION: 1. No acute cardiopulmonary disease. ACT 112: Negative or not required by law. Electronically signed by: Refugio Jackson M.D. 12/21/2021 6:04 PM
[2021-12-21] MEDS: HYDROmorphone INJ 0.5 MG/0.5 ML SYR IV PRN (19:52)
[2021-12-21] MEDS: oxyCODONE HCL IR 5 MG TAB (IMMEDIATE RELEASE) PO PRN (21:05)
[2021-12-22] MEDS: oxyCODONE HCL IR 5 MG TAB (IMMEDIATE RELEASE) PO PRN ×4 (00:55→20:16)
[2021-12-22] MEDS: HYDROmorphone INJ 0.5 MG/0.5 ML SYR IV PRN ×2 (01:51→08:49)
[2021-12-22] MEDS ORDERED: Nursing to Pharmacy Communication SCH (06:15)
[2021-12-22] MEDS: INSULIN ASPART PER UNIT SC SCH ×4 (06:17→21:23)
[2021-12-22] MEDS: ONDANSETRON INJ 2 MG/ML 2 ML VIAL IV PRN (06:25)
--- NOTE | 2021-12-22 07:11 | CT Scan Report ---
CT ankle RT wo con CLINICAL HISTORY: Right ankle fracture. COMPARISON STUDY: Right ankle radiographs December 21, 2021 at 5:12 AM. TECHNIQUE: Axial images of the right ankle were obtained without IV contrast. Sagittal and coronal re constructions were viewed. Automated exposure control was utilized for the study. A dose lowering te chnique was utilized adhering to the principles of ALARA. FINDINGS: Extensive right lower leg, ankle and foot soft tissue swelling is noted. There is no soft t issue gas. Talar dome is intact. Tibiotalar joint alignment has significantly improved since prereduc tion radiograph radiographs. Comminuted displaced fracture of the medial malleolus is noted. Fracture is displaced 4 mm. This has also improved since initial radiograph. A comminuted mildly displaced fr acture of the posterior malleolus is noted as well as an acute fracture of the anterior distal right tibia. 3 mm fracture fragment along the medial malleolus is likely intra-articular. There is no acute fracture of the distal right fibula. No acute fracture of the talus or calcaneus is noted. Minimal p osterior calcaneal spurring is present. IMPRESSION: 1. Acute comminuted mildly displaced fractures of the medial and posterior malleoli of the right tibi a, as described above. Fracture alignment similar to post reduction radiographs but significantly imp roved since prereduction radiographs. Fracture also extends through the anterior distal right tibia. 2. Significant improvement in tibiotalar joint alignment from prereduction radiographs. 2. Ankle and foot soft tissue swelling. No soft tissue gas. ACT 112: Negative or not required by law. Electronically signed by: Chaim Phan M.D. 12/22/2021 7:09 AM
--- NOTE | 2021-12-22 07:47 | Hospitalist Progress Note ---
Date of Service December 22, 2021 Assessment & Plan (1) Closed dislocation of right ankle: Plan: Due to mechanical fall slipping on wet ground and reportedly bending his right foot back (reports has been dislocated for years in the past) Set in ER Xray with Mildly improved alignment of the acute right ankle fracture status post reduction and casting with persistent displacement and subluxation as above. CT Right Lower Ext: 1. Acute comminuted mildly displaced fractures of the medial and posterior malleoli of the right tibia, as described above. Fracture alignment similar to post reduction radiographs but significantly improved since prereduction radi ographs. Fracture also extends through the anterior distal right tibia. 2. Significant improvement in tibiotalar joint alignment from prereduction radiographs. 2. Ankle and foot soft tissue swelling. No soft tissue gas. CXR no acute process -- on 2-4L NC (wt up, HD 12/21 for 3.6L, nephrology following), titrate as able Ortho consulted NPO for OR this afternoon Pain control, antiemetics Holding plavix/apixaban (EKG w/o afib), but recommend moving to monitored bed post-operativlely Continue to monitor (2) Fall: Plan: Mechanical in nature on wet floor. - PT/OT following surgery - Restrictions as above (3) CAD (coronary artery disease): Plan: S/p CABG. - Hold Plavix for surgery as above Not on BB given hx syncope/pauses previously hospitalized and seen by Dr Khoury (was on carvedilol). Remains on amiodarone for hx afib (pre-op EKG w/o afib currently) No CP, noted SOB is his anginal equivalent EKG w/ CP Monitor on telemetry post-operatively (4) End-stage renal disease on hemodialysis: Plan: Follows with [facility]. Normal HD days are T-Th-Sat. Wt was 7kg above dry weight and patient tends to have 6-7kg weight gain in between HD sessions reported Nephro consulted HD on 12/21 for 3.7 L and appreciate continued nephrology assistance Remains on lasix 80mg BID Renal dose/avoid nephrotoxic agents when able Monitor (5) HTN (hypertension): Plan: BP stable 118/69 Continues on amlodipine, clonidine, lasix Monitor (6) Diabetes mellitus type 2 in obese: Plan: A1c was 7.8%. - Continued home Lantus 10 units QAM, glargine 50u BID but cut AM glargine in half while NPO and continue ISS Monitor (7) Paroxysmal atrial flutter: Plan: Presently auscultation sounds regular to me, EKG w/o afib Eliquis on hold for OR today, continued on home amiodarone Monitor on monitored bed post-operatively Unable to tolerate BB due to pauses reported previously (8) BPH (benign prostatic hyperplasia): Plan: Attempted to use the urinary, but unable to pass urine --> did make some urine yesterday. Issues reported this morning but declining st cath at this time BS for 400cc and will continue to monitor/st cath as needed Continue home flomax, consider increased dose? (9) DVT prophylaxis: Plan: SCDs -> Resume apixaban when ok w/ orthopedics following surgery Plan NPO for OR today Admission and Anticipated Discharge Date Admission Date: December 21, 2021 Subjective Patient evaluated this morning, had been having some nausea/pain and given zofran and dose of dilaudid and reports feeling a little sleepy. Pain controlled at present. Does have some nasal congestion, take loratadine at home prn will give dose. Seen by ortho this morning and planning for surgery this afternoon, discussed moving to monitored bed post-operatively for at least 24 hours for monitoring and discussed with ortho PA as well regarding this post-op. Patient denies any fever/chills, no chest pain or increased shortness of breath but remains on supplemental oxygen. States he does have oxygen at use and "uses it when he needs it" but "not all the time". No abdominal pain presently and passing gas but no BM. States having issue with being able to void, RN bladder scanned for about 400cc but patient declining st cath at this time but may need to depending. Will continue to monitor. Questions/concerns addressed at this time. Review of Systems Review of Systems: All systems reviewed & are unremarkable except as noted in HPI & below Physical Exam Physical Exam: General: WD/WN obese male laying in bed, NAD HEENT: head normocephalic, atraumatic, trachea midline without deviation, mmm, nasal bogginess Resp: no cough/tachypnea, diminished in the bases, no w/c, on 2L NC SpO2 93% CV: regular rate, rhythm, no m/r/g, b/l LE edema reported at baseline, cap refill wnl AV fistula R arm +thrill GI:+BS, +distended, nontender, no guarding/rigidity : no menjivar MSK/Neuro: moves all extremities, no focal deficit, no slurred speech or facial droop. RLE with splint in place, toes pink and warm, cap refill wnl. Psych: AOx3, cooperative Results & Data Results & Data ([facility]) Vital Signs (Past 12 Hours) Vital Signs Temp Pulse Pulse Resp BP Pulse Ox O2 Del Method 12/22/21 06:32 36.6 C 65 22 113/63 92 Nasal Cannula 12/21/21 22:42 36.7 C 66 22 103/63 97 Nasal Cannula O2 Flow Rate 12/22/21 06:32 4 12/21/21 22:42 2.0 Laboratory Results 12/22/21 12/22/21 12/22/21 Range/Units 09:10 09:10 08:46 WBC 10.18 (4.8-10.8) K/ul RBC 3.53 L (4.63-6.08) M/uL Hgb 10.9 L (14.0-18.0) g/dl Hct 35.4 L (40.1-51.0) % MCV 100.3 H (80.0-100.0) fL MCH 30.9 (25.0-34.0) pg MCHC 30.8 L (32.0-36.0) g/dL RDW Std Deviation 57.7 H (36.4-46.3) fL RDW Coeff of Atif 15.8 H (11.5-14.5) % Plt Count 181 (130-400) K/uL MPV 10.2 (9.4-12.4) fL Sodium 135 L (136-145) mmol/L Potassium 5.0 (3.5-5.1) mmol/L Chloride 95 L (98-107) mmol/L Carbon Dioxide 30 (21-32) mmol/L Anion Gap 10 (3-11) BUN 40 H (6-23) mg/dl Creatinine 7.54 H* D (0.6-1.4) mg/dl Est Cr Clr Drug Dosing 13.1 ml/min Est GFR ( Amer) 7.7 ml/min Est GFR (Non-Af Amer) 6.6 ml/min BUN/Creatinine Ratio 5.3 L (10-20) Glucose 175 H (70-99(Fasting)) mg/dl POC Glucose 184 H (70-99) mg/dl Calcium 8.6 (8.5-10.1) mg/dl Magnesium 2.3 (1.7-2.4) mg/dl 12/22/21 12/21/21 12/21/21 Range/Units 06:09 20:34 17:21 WBC (4.8-10.8) K/ul RBC (4.63-6.08) M/uL Hgb (14.0-18.0) g/dl Hct (40.1-51.0) % MCV (80.0-100.0) fL MCH (25.0-34.0) pg MCHC (32.0-36.0) g/dL RDW Std Deviation (36.4-46.3) fL RDW Coeff of Atif (11.5-14.5) % Plt Count (130-400) K/uL MPV (9.4-12.4) fL Sodium (136-145) mmol/L Potassium (3.5-5.1) mmol/L Chloride (98-107) mmol/L Carbon Dioxide (21-32) mmol/L Anion Gap (3-11) BUN (6-23) mg/dl Creatinine (0.6-1.4) mg/dl Est Cr Clr Drug Dosing ml/min Est GFR ( Amer) ml/min Est GFR (Non-Af Amer) ml/min BUN/Creatinine Ratio (10-20) Glucose (70-99(Fasting)) mg/dl POC Glucose 174 H 201 H 176 H (70-99) mg/dl Calcium (8.5-10.1) mg/dl Magnesium (1.7-2.4) mg/dl 12/21/21 Range/Units 11:36 WBC (4.8-10.8) K/ul RBC (4.63-6.08) M/uL Hgb (14.0-18.0) g/dl Hct (40.1-51.0) % MCV (80.0-100.0) fL MCH (25.0-34.0) pg MCHC (32.0-36.0) g/dL RDW Std Deviation (36.4-46.3) fL RDW Coeff of Atif (11.5-14.5) % Plt Count (130-400) K/uL MPV (9.4-12.4) fL Sodium (136-145) mmol/L Potassium (3.5-5.1) mmol/L Chloride (98-107) mmol/L Carbon Dioxide (21-32) mmol/L Anion Gap (3-11) BUN (6-23) mg/dl Creatinine (0.6-1.4) mg/dl Est Cr Clr Drug Dosing ml/min Est GFR ( Amer) ml/min Est GFR (Non-Af Amer) ml/min BUN/Creatinine Ratio (10-20) Glucose (70-99(Fasting)) mg/dl POC Glucose 186 H (70-99) mg/dl Calcium (8.5-10.1) mg/dl Magnesium (1.7-2.4) mg/dl Diagnostic Findings Chest X-Ray 12/21/21 14:56 XR chest 1V portable CLINICAL HISTORY: pre-op clearance. Evaluate cardiopulmonary status COMPARISON STUDY: 11/23/2021 TECHNIQUE: 1 view of the chest FINDINGS: Single frontal view of the chest demonstrates the heart to again be enlarged status post previous cardiothoracic surgery. A loop recorder is in place. Chronic prominence of the interstitial markings is again seen at the lung bases with resolution of left basilar atelectasis. The lungs are clear of alveolar opacities. There is no evidence for pleural effusion. There is no evidence for vascular congestion. There is no acute osseous pathology. IMPRESSION: 1. No acute cardiopulmonary disease. ACT 112: Negative or not required by law. Electronically signed by: Refugio Jackson M.D. 12/21/2021 6:[address] 12/21/21 22:06 CT ankle RT wo con CLINICAL HISTORY: Right ankle fracture. COMPARISON STUDY: Right ankle radiographs December 21, 2021 at 5:12 AM. TECHNIQUE: Axial images of the right ankle were obtained without IV contrast. Sagittal and coronal reconstructions were viewed. Automated exposure control was utilized for the study. A dose lowering technique was utilized adhering to the principles of ALARA. FINDINGS: Extensive right lower leg, ankle and foot soft tissue swelling is noted. There is no soft tissue gas. Talar dome is intact. Tibiotalar joint alignment has significantly improved since prereduction radiograph radiographs. Comminuted displaced fracture of the medial malleolus is noted. Fracture is displaced 4 mm. This has also improved since initial radiograph. A comminuted mildly displaced fracture of the posterior malleolus is noted as well as an acute fracture of the anterior distal right tibia. 3 mm fracture fragment along the medial malleolus is likely intra-articular. There is no acute fracture of the distal right fibula. No acute fracture of the talus or calcaneus is noted. Minimal posterior calcaneal spurring is present. IMPRESSION: 1. Acute comminuted mildly displaced fractures of the medial and posterior malleoli of the right tibia, as described above. Fracture alignment similar to post reduction radiographs but significantly improved since prereduction radiographs. Fracture also extends through the anterior distal right tibia. 2. Significant improvement in tibiotalar joint alignment from prereduction radiographs. 2. Ankle and foot soft tissue swelling. No soft tissue gas. ACT 112: Negative or not required by law. Electronically signed by: Chaim Phan M.D. 12/22/2021 7:09 AM PG Care Time/CCT Total # of Minutes Spent Total Time Spent with Patient: Total time spent is greater than 50% in coordination of care (as documented) at patient's floor/unit and/or counseling patient: Coding Level of Care Code 57509 Subseq Hosp Care Lvl 3 Diagnoses Closed dislocation of right ankle S93.04XA Fall W19.XXXA CAD (coronary artery disease) I25.119 Coronary Disease-Associated Artery/Lesion type: [place] artery [place] vs. transplanted heart: [place] heart Associated angina: with unspecified angina End-stage renal disease on hemodialysis N18.6; Z99.2 HTN (hypertension) I10 Hypertension type: unspecified Diabetes mellitus type 2 in obese E11.69; E66.9 Paroxysmal atrial flutter I48.92 BPH (benign prostatic hyperplasia) N40.0 Lower urinary tract symptom presence: symptoms absent DVT prophylaxis Z29.9 (1) CAD (coronary artery disease) Coronary Disease-Associated Artery/Lesion type: [place] artery [place] vs. transplanted heart: [place] heart Associated angina: with unspecified angina Qualified Code(s): I25.119 - Atherosclerotic heart disease of [place] coronary artery with unspecified angina pectoris (2) HTN (hypertension) Hypertension type: unspecified Qualified Code(s): I10 - Essential (primary) hypertension (3) BPH (benign prostatic hyperplasia) Lower urinary tract symptom presence: symptoms absent Qualified Code(s): N40.0 - Benign prostatic hyperplasia without lower urinary tract symptoms
[2021-12-22 09:19] LABS: Hematocrit (blood only) 35.4 % (40.1-51.0); Hemoglobin 10.9 g/dl (14.0-18.0); Mean Corpuscular Hemoglobin 30.9 pg (25.0-34.0); Mean Corpuscular Hgb Conc 30.8 g/dL (32.0-36.0); Mean Corpuscular Volume 100.3 fL (80.0-100.0); Mean Platelet Volume 10.2 fL (9.4-12.4); Platelet Count 181 K/uL (130-400); RDW Coefficient of Variation 15.8 % (11.5-14.5); RDW Standard Deviation 57.7 fL (36.4-46.3); Red Blood Count 3.53 M/uL (4.63-6.08); White Blood Count 10.18 K/ul (4.8-10.8)
[2021-12-22] MEDS: cloNIDine HCL 0.1 MG TAB PO SCH ×2 (09:34→20:17)
[2021-12-22] MEDS: NEPHROCAPS PO SCH (09:34)
[2021-12-22] MEDS: AMIODARONE 200 MG TAB PO SCH (09:34)
[2021-12-22] MEDS: FUROSEMIDE 80 MG TAB PO SCH ×2 (09:34→20:16)
[2021-12-22] MEDS: TAMSULOSIN HCL 0.4 MG CAP PO SCH (09:34)
[2021-12-22] MEDS: amLODIPine BESYLATE 5 MG TAB PO SCH (09:34)
[2021-12-22] MEDS: ROSUVASTATIN CALCIUM 10 MG TAB PO SCH (09:34)
[2021-12-22] MEDS: LANTUS PER UNIT CHARGE SQ SCH ×2 (09:35→21:23)
[2021-12-22] MEDS: SEVELAMER HCL 800 MG TABLET PO SCH ×3 (09:36→20:17)
[2021-12-22] MEDS ORDERED: PROMETHAZINE HCL 6.25 MG in SODIUM CHLORIDE 0.9% 50 ML IV PRN (09:50)
[2021-12-22 09:54] LABS: BUN Creatinine Ratio 5.3 (10-20); Calcium 8.6 mg/dl (8.5-10.1); Creatinine Clr Calc Pharmacy 13.1 ml/min; Est GFR (African American) 7.7 ml/min; Est GFR (Non-African American) 6.6 ml/min; Magnesium 2.3 mg/dl (1.7-2.4)
[2021-12-22] MEDS ORDERED: LORATADINE 10 MG TAB PO PRN (10:15)
[2021-12-22] MEDS: DOCUSATE SODIUM/SENNA 50/8.6MG TAB PO SCH (11:30)
--- NOTE | 2021-12-22 12:03 | Nephrology Progress Note ---
Date of Service December 22, 2021 Assessment & Plan (1) End-stage renal disease on hemodialysis: (2) HTN (hypertension): (3) Ankle fracture, right: (4) Fall: (5) Anemia due to chronic kidney disease: Plan ESRD on hemodialysis Monday, , Monday at [facility] [place]. Admitted after a fall at home and right ankle closed dislocation. Currently blood pressure, volume status and electrolyte acceptable. hemoglobin stable. -- Plan for dialysis tomorrow, UF as tolerated with goal to estimated dry weight of 130 kg -- dose medications for EGFR less than 10, right arm nephrology precaution -- continue on Renvela 3 tab t.i.d. with meals, renal vitamin. avoid IV fluid -- continue on Lasix 80 mg twice a day will follow Admission and Anticipated Discharge Date Admission Date: December 21, 2021 La Guerra was seen and evaluated this morning. He is having some pain in his right ankle but otherwise asymptomatic. Waiting for OR. had dialysis yesterday and had close to 4 L of UF. Blood pressure acceptable. Electrolyte acceptable. Review of Systems Review of Systems: Detailed review of system was otherwise unremarkable. Physical Exam Constitutional: WD/WN, vitals as above no acute distress Respiratory: no respiratory distress Auscultation: lungs clear to auscultation bilaterally Cardiovascular: Rate/Rhythm: regular rate and regular rhythm Heart Sounds: normal S1 and normal S2 Extremities: + AV fistula ( Right brachiocephalic AV fistula with thrill and bruit); no edema Skin: no rashes Neurologic: no focal motor deficits Psychiatric: Orientation: alert and oriented x 3 Affect: euthymic affect Results & Data ([facility]) Vital Signs (Past 12 Hours) Vital Signs Temp Pulse Pulse Resp BP Pulse Ox O2 Del Method 12/22/21 11:25 36.8 C 60 20 118/68 93 Nasal Cannula 12/22/21 09:00 Nasal Cannula 12/22/21 07:50 36.9 C 60 21 118/69 93 Nasal Cannula 12/22/21 06:32 36.6 C 65 22 113/63 92 Nasal Cannula O2 Flow Rate 12/22/21 11:25 12/22/21 09:00 12/22/21 07:50 12/22/21 06:32 4 PG Care Time/CCT Total # of Minutes Spent Total Time Spent with Patient: Total time spent is greater than 50% in coordination of care (as documented) at patient's floor/unit and/or counseling patient: Coding Level of Care Code 53510 Subseq Hosp Care Lvl 3 Diagnoses End-stage renal disease on hemodialysis N18.6; Z99.2 HTN (hypertension) I10 Hypertension type: unspecified Ankle fracture, right S82.891A Fall W19.XXXA Anemia due to chronic kidney disease N18.9; D63.1 (1) HTN (hypertension) Hypertension type: unspecified Qualified Code(s): I10 - Essential (primary) hypertension
--- NOTE | 2021-12-22 12:55 | Anesthesiology Consultation ---
Date of Service December 22, 2021 Assessment & Plan (1) Encounter for pre-operative examination: Chart Review Chart Review: Acceptable Risk for Surgery (patient on plavix) History Surgery Operation Date: 12/22/21 07:00 Proposed Procedures p Open Reduction Internal Fixation Medial Malleolus Fracture - Carmelo Chandler DO Height/Weight Height: 5 ft 11 in Weight: 136.9 kg Allergies Allergy/AdvReac Type Severity Reaction Status Date / Time [place] Complexes Allergy Mild rash from Verified 11/23/21 01:29 metal ragweed pollen Allergy Mild [place] Verified 11/23/21 01:29 Medications Home Medications Medication Instructions Recorded Confirmed Last Taken albuterol sulfate 90 mcg/actuation 2 puff inhalation Q6H PRN 01/06/19 11/23/21 11/14/20 aerosol inhaler Shortness Of Breath insulin aspart U-100 100 unit/mL 10 unit subcut AC 01/06/19 11/23/21 11/22/21 12:00 subcutaneous cartridge (Novolog PenFill U-100 Insulin aspart) loratadine 10 mg tablet 10 mg PO DAILY PRN Allergy Symptoms 01/06/19 11/23/21 11/15/20 tamsulosin 0.4 mg capsule 0.4 mg PO QAM 01/06/19 11/23/21 11/22/21 clopidogrel 75 mg tablet (Plavix) 75 mg PO QAM 03/06/19 11/23/21 11/22/21 insulin glargine 100 unit/mL (3 50 unit subcut BID 03/06/19 11/23/21 11/22/21 08:00 mL) subcutaneous pen (Lantus Solostar U-100 Insulin) vit B complx, C-iron 8 mg-folic 1 tab PO QAM 09/26/19 11/23/21 11/22/21 acid 800 mcg-D3 1,000 unit-zinc tablet (ProRenal) nitroglycerin 0.4 mg sublingual 0.4 mg sublingual UD PRN chest 12/27/19 11/23/21 Unknown tablet (Nitrostat) pain #20 tabs apixaban 5 mg tablet (Eliquis) 5 mg PO BID 08/21/20 11/23/21 11/22/21 08:00 amiodarone 200 mg tablet 200 mg PO DAILY 11/11/23/21 11/22/21 rosuvastatin 10 mg tablet 10 mg PO DAILY 04/05/21 11/23/21 11/22/21 sevelamer carbonate 800 mg tablet 2,400 mg PO TID 04/05/21 11/23/21 11/22/21 12:00 (Renvela) amlodipine 5 mg tablet 5 mg PO DAILY #30 tabs 11/11/21 11/23/21 11/22/21 clonidine HCl 0.2 mg tablet 0.2 mg PO BID 11/23/21 11/23/21 11/22/21 08:00 furosemide 40 mg tablet (Lasix) 80 mg PO BID #120 tabs 11/24/21 Unknown Active Medications Generic Name Dose Route Start Last Admin Trade Name Mercedes PRN Reason Stop Dose Admin Amiodarone HCl 200 mg 12/21/21 09:30 12/22/21 09:34 Amiodarone 200 Mg Tab PO 01/20/22 09:29 200 mg DAILY ANTONY Administration Amlodipine Besylate 5 mg 12/21/21 09:00 12/22/21 09:34 Amlodipine Besylate 5 Mg Tab PO 01/20/22 08:59 5 mg DAILY ANTONY Administration Clonidine HCl 0.2 mg 12/21/21 09:30 12/22/21 09:34 Clonidine Hcl 0.1 Mg Tab PO 01/20/22 09:29 0.2 mg BID ANTONY Administration Furosemide 80 mg 12/21/21 09:30 12/22/21 09:34 Furosemide 80 Mg Tab PO 01/20/22 09:29 80 mg BID17 ANTONY Administration Hydromorphone HCl 0.5 mg 12/21/21 11:05 12/22/21 08:49 Hydromorphone Inj 0.5 Mg/0.5 Ml Syr IV 01/04/22 11:04 0.5 mg Q6H PRN Administration Pain Insulin Aspart 0 units 12/22/21 06:30 12/22/21 13:01 Insulin Aspart Per Unit SC 01/21/22 06:29 Not Given Q6 ANTONY Insulin Glargine 50 units 12/21/21 09:30 12/22/21 09:35 Lantus Per Unit Charge SQ 01/20/22 09:29 25 units BID ANTONY Administration Ondansetron HCl 4 mg 12/21/21 08:59 12/22/21 06:25 Ondansetron Inj 2 Mg/Ml 2 Ml Vial IV 01/20/22 08:58 4 mg Q4H PRN Administration Nausea Oxycodone HCl 5 mg 12/21/21 11:06 12/22/21 11:32 Oxycodone Hcl Ir 5 Mg Tab (Immediate Release) PO 01/04/22 11:05 5 mg Q4H PRN Administration Pain Rosuvastatin Calcium 10 mg 12/21/21 09:00 12/22/21 09:34 Rosuvastatin Calcium 10 Mg Tab PO 01/20/22 08:59 10 mg DAILY ANTONY Administration Senna/Docusate Sodium 1 tab 12/22/21 10:00 12/22/21 11:30 Docusate Sodium/Senna 50/8.6mg Tab PO 01/21/22 09:59 1 tab QAM ANTONY Administration Sevelamer HCl 2,400 mg 12/21/21 09:30 12/22/21 13:07 Sevelamer Hcl 800 Mg Tablet PO 01/20/22 09:29 Not Given TID ANTONY Tamsulosin HCl 0.4 mg 12/21/21 09:30 12/22/21 09:34 Tamsulosin Hcl 0.4 Mg Cap PO 01/20/22 09:29 0.4 mg QAM ANTONY Administration Vitamin B Complex/Folic Acid 1 cap 12/21/21 09:30 12/22/21 09:34 Nephrocaps PO 01/20/22 09:29 1 cap QAM ANTONY Administration Past Medical History Medical History (Updated 12/22/21 @ 13:17 by Mehdi Roberts MD) Anemia due to chronic kidney disease BPH (benign prostatic hyperplasia) CAD (coronary artery disease) s/p LAD stents (2018 and 2019) CABG 2020 CHF (congestive heart failure) normal LV function Chronic kidney disease FOLLOWS WITH DR. TONY Diabetes mellitus, type 2 Dyslipidemia Environmental allergies REASON FOR INHALER GERD (gastroesophageal reflux disease) Hemodialysis patient FOR 2 YEARS/MONDAY, MONDAY, MONDAY AT [facility] HTN (hypertension) Neuropathy Paroxysmal atrial fibrillation Pulmonary hypertension Sinus node dysfunction Sleep apnea does not use CPAP Umbilical hernia Past Family History Family History Other Hypertension No family history of adverse response to anesthesia Denies family history of Kidney disease Past Surgical History Surgical History AV fistula RT ARM History of colonoscopy History of heart artery stent X 2 () History of loop recorder Implanted 05/01/2019 History of tooth extraction S/P CABG (coronary artery bypass graft) 2-VESSEL AT 05/2020 ([place]) Social History Smoking Status: Former smoker tobacco type: cigarettes Smoking cigarettes per day: 10 Hx Alcohol Use: Yes Alcohol type: beer, wine and hard liquor alcohol intake frequency: a few times a week Hx Substance Use: No substance use type: does not use Last Used Substance Other:: 10 years ago Physical Exam Vital Signs Last Vital Signs Temp 36.8 C 12/22/21 11:25 Pulse 60 12/22/21 11:25 Resp 20 12/22/21 11:25 BP 118/68 12/22/21 11:25 Pulse Ox 93 12/22/21 11:25 O2 Del Method 12/22/21 11:25 O2 Flow Rate 4 12/22/21 06:32 Testing Laboratory Results 12/22/21 09:10 12/22/21 09:10 12/22/21 12/22/21 12/22/21 12:49 08:46 06:09 POC Glucose 166 H 184 H 174 H Electrocardiogram Date: 12/21/21 Findings: + NSR @ (65 intraventricular conduction delay) Chest X-Ray Date: 12/21/21 Findings: + NAD Echocardiogram Date: 08/16/20 EF: 55-60% LV Function: normal Valvular Disease: + (mild) and + MR (mild) mild TR mild to mod pulm htn
[2021-12-22] MEDS ORDERED: ROCURONIUM BROMIDE 10 MG/ML 5 ML VIAL IV ONE (14:55)
[2021-12-22] MEDS ORDERED: fentaNYL citrate 100 MCG/2 ML VIAL ONE (14:55)
[2021-12-22] MEDS ORDERED: PROPOFOL IV EMULSION 10 MG/ML 20 ML VIAL IV ONE (14:55)
[2021-12-22] MEDS ORDERED: LIDOCAINE 2% MPF LOCAL 5 ML VIAL INFIL ONE (14:55)
[2021-12-22] MEDS ORDERED: ONDANSETRON INJ 2 MG/ML 2 ML VIAL ONE (14:55)
[2021-12-22] MEDS ORDERED: SODIUM CHLORIDE 0.9% INJ 10 ML VIAL ONE (14:59)
[2021-12-22] MEDS ORDERED: ROPIVACAINE 0.5% 5 MG/ML 30 ML VIAL ONE (14:59)
[2021-12-22] MEDS ORDERED: BUPIVACAINE 0.5 % 5 MG/1 ML MPF 30ML VIAL ONE (15:08)
[2021-12-22] MEDS ORDERED: EPINEPHrine INJ 1 MG/ML AMP ONE (15:08)
[2021-12-22] MEDS ORDERED: MIDAZOLAM HCL 1 MG/ML 2ML VIAL ONE (15:10)
[2021-12-22] MEDS ORDERED: ONDANSETRON INJ 2 MG/ML 2 ML VIAL IV PRN (15:28)
[2021-12-22] MEDS ORDERED: HYDROmorphone INJ 1 MG/ML SYRINGE IV PRN (15:28)
[2021-12-22] MEDS ORDERED: ATROPINE SULFATE 0.1 MG/ML 10ML SYR IV PRN (15:28)
--- NOTE | 2021-12-22 15:51 | History & Physical Bridge Note ---
Date of Service December 22, 2021 History & Physical Bridge Note I have examined the patient, reviewed the History & Physical and in the interval since the performance of the History & Physical I have noted the following changes of clinical significance: no changes noted. We discussed Right ankle ORIF risk/benefits/complications and written consent was obtained.
[2021-12-22] MEDS ORDERED: ePHEDrine sulfate 50 MG/ML AMP ONE (16:21)
[2021-12-22] MEDS ORDERED: ALBUTEROL HFA INHALER 8.5 GM ONE (16:30)
[2021-12-22] MEDS ORDERED: GLYCOPYRROLATE 0.2 MG/ML VIAL ONE (16:49)
[2021-12-22] MEDS ORDERED: NEOSTIGMINE METHYLSULFATE 1 MG/ML 10ML VIAL ONE (17:36)
--- NOTE | 2021-12-22 17:41 | Fluoroscopy Report ---
FL ankle RT min 3V RTN HISTORY: 71 years-old Male RT ORIF MED MALLEOLUS acute fracture of the right ankle COMPARISON: 12/21/2021 TECHNIQUE: 3 spot fluoroscopic images of the right ankle were obtained utilizing 36.2 seconds fluoros copy time FINDINGS: Status post plate screw fusion fixating the acute medial malleolar fracture now demonstrating near-an atomic alignment. Acute mildly displaced posterior malleolar fracture redemonstrated. Acute postopera tive soft tissue swelling with deep tissue air. No unexpected opaque foreign body. IMPRESSION: Fluoroscopic assistance as above. ACT 112: Negative or not required by law. The above report was generated using voice recognition software. It may contain grammatical, syntax o r spelling errors. Electronically signed by: Carmelo Dumont M.D. 12/22/2021 5:40 PM
--- NOTE | 2021-12-22 17:58 | Post Operative Brief Note ---
Immediate Post Op Note v1 Date of Surgery December 22, 2021 Pre & Post Diagnosis Operation Date: 12/22/21 07:00 Pre-Op Diagnosis: Ankle fracture, right Post-Op Diagnosis: Ankle fracture, right I identified the patient and participated in the time-out.: Yes Procedure Operation Date: 12/22/21 07:00 Actual Procedures p Open Reduction Internal Fixation Right Medial Malleolus Fracture(Right) - Carmelo Chandler DO Surgeon Carmelo Chandler, Science And Operations Officer none Estimated Blood Loss 15 Findings Consistent with Post-Op Diagnosis see dictation Drains Charles Catheter Complications none Disposition Disposition: Recovery Room
--- NOTE | 2021-12-22 18:05 | Operative Report ---
Post Operative Report Pre & Post Diagnosis Operation Date: 12/22/21 07:00 Pre-Op Diagnosis: Ankle fracture, right Post-Op Diagnosis: Ankle fracture, right I identified the patient and participated in the time-out.: Yes Procedure Operation Date: 12/22/21 07:00 Actual Procedures p Open Reduction Internal Fixation Right Medial Malleolus Fracture(Right) - Carmelo Chandler DO Surgeon Carmelo Chandler DO Assembler Insulator none Estimated Blood Loss 15 Findings Consistent with Post-Op Diagnosis see dictation Specimens none Complications none Indications 70-year-old male who presented to [facility] emergency department after sustaining a right ankle fracture dislocation. In the emergency department radiographs were obtained demonstrating a medial and posterior malleolus fracture. Patient underwent closed reduction and placement of splint in the emergency department and was admitted to medical service with orthopedics been consulted for operative management. Preoperatively I met with the patient and we had a lengthy discussion regarding risk benefits and potential complications of open reduction internal fixation for his right ankle fracture. Risk include infection, neurovascular injury, DVT, nonunion, malunion, wound complications and need for future surgery. After reviewing these he elected to proceed with surgical intervention and written consent was obtained. Description of Procedure Patient was identified in the preoperative holding area and the right lower extremity was marked. He received regional anesthesia. He was then taken back to the operative suite where he received 3 g of Ancef per protocol. After successful induction of anesthesia he was then positioned supine with bone foam under the right lower extremity. A nonsterile thigh tourniquet was then placed. He was then prepped and draped in standard orthopedic fashion a timeout was then performed. A 6 cm incision overlying the medial malleolus was then made. Metzenbaum scissors were used to dissect down through subcutaneous tissue down to bone. A roman elevator was then used to clear any residual periosteum. Using combination of a curette and a dental pick all residual fracture hematoma was then removed. There was a smaller anterior medial fragment and then a larger medial fragment involving most of the medial malleolus. Using 3 K wires the fragments were then pinned back into anatomic position and confirmed with radiographs. Due to the vertical shear nature of the fracture a 3-hole hook plate was selected to provide buttress against the superior shoulder of the fracture. Once the plate was in satisfactory position a 2.5 mm drill was used to drill bicortically and a 3.5 mm cortical screw was placed at the superior aspect to compress the fracture and provide buttress at the superior aspect. Th is provided excellent reduction of the fracture. A second cortical screw was then drilled and placed at the second to top superior hole. Again this provided further compression of the fracture site. Attention was then turned to the distal malleolus segment. A 2.5 mm drill was then used to drill through the medial malleolus segment up the column. A 4.0 mm by 45 mm fully threaded cancellous screw was then placed and provided good compression. Stress radiographs were then obtained which demonstrated no medial clear space widening. Posterior malleolus segment noted to reduce fairly well and was not large enough in size to warrant fixation. This left just a residual small cortical fragment on the anterior aspect. A 2.0 drill bit was then used to drill unit cortically and a 2.7 mm mini frag screw was placed. Longer screw in the mini 5 facet was a 24 mm screw so unfortunately we were unable to place a bicortical screw here. Final radiographs were then obtained. This demonstrated anatomic reduction of the fracture and satisfactory position of plate and screws. Wound was then copiously irrigated using normal saline solution. Tourniquet was then deflated. Good hemostasis was noted. Subcutaneous tissue was closed using 2-0 Vicryl followed by 4-0 nylon in an interrupted fashion for the skin. Sterile dressing of Xeroform 4 x 4 gauze ABD web roll and a 3 sided Ortho-Glass splint was then applied. The patient tolerated the procedure well and was taken to the recovery room in hemodynamically stable condition. I attest to the content of the Intraoperative Record and any orders documented therein. Any exceptions are noted below.
--- NOTE | 2021-12-22 18:49 | Anesthesiology Progress Note ---
Date of Service December 22, 2021 Anesthesia Post Procedure Vital Signs Vital Signs: Temp Pulse Pulse Pulse Resp BP Pulse Ox 12/22/21 18:30 64 19 140/62 91 12/22/21 18:20 37.2 C 63 24 144/57 H 91 12/22/21 18:10 61 17 135/58 L 97 12/22/21 18:00 36.4 C L 68 16 136/58 L 94 12/22/21 15:10 36.8 C 57 L 17 129/77 96 12/22/21 11:25 36.8 C 60 20 118/68 93 12/22/21 09:00 12/22/21 07:50 36.9 C 60 21 118/69 93 12/22/21 06:32 36.6 C 65 22 113/63 92 12/21/21 19:45 12/21/21 22:42 36.7 C 66 22 103/63 97 O2 Del Method O2 Flow Rate 12/22/21 18:30 Oxymask 2 12/22/21 18:20 Oxymask 2 12/22/21 18:10 Oxymask 6 12/22/21 18:00 Oxymask 15 12/22/21 15:10 Nasal Cannula 4 12/22/21 11:25 Nasal Cannula 12/22/21 09:00 Nasal Cannula 12/22/21 07:50 Nasal Cannula 12/22/21 06:32 Nasal Cannula 4 12/21/21 19:45 Nasal Cannula 2 12/21/21 22:42 Nasal Cannula 2.0 Pain Intensity Right Ankle: Pain Intensity: 6 Transfer of Care Handoff Completed per policy Notes Mental Status: alert / awake / arousable and participated in evaluation Patient Amnestic to Procedure: Yes Nausea / Vomiting: adequately controlled Pain: adequately controlled Airway Patency, RR, SpO2: stable & adequate BP & HR: stable & adequate Hydration State: stable & adequate Anesthetic Complications: no major complications apparent and Pt Satisfied with anesthetic care
[2021-12-22] MEDS ORDERED: NALOXONE HCL 0.4 MG/1 ML VIAL/CARP IV PRN (19:16)
[2021-12-22] MEDS ORDERED: SODIUM CHLORIDE 0.9% 1000ML 1,000 ML IV SCH (19:16)
[2021-12-22] MEDS: DOCUSATE SODIUM 100 MG CAP PO SCH (20:17)
[2021-12-22] MEDS: ceFAZolin 2000MG 2,000 MG/15 ML SYR IV SCH (23:13)
[2021-12-23] MEDS: ceFAZolin 2000MG 2,000 MG/15 ML SYR IV SCH (06:14)
[2021-12-23 06:26] LABS: Hematocrit (blood only) 31.2 % (40.1-51.0); Hemoglobin 9.5 g/dl (14.0-18.0); Mean Corpuscular Hemoglobin 30.5 pg (25.0-34.0); Mean Corpuscular Hgb Conc 30.4 g/dL (32.0-36.0); Mean Corpuscular Volume 100.3 fL (80.0-100.0); Mean Platelet Volume 10.6 fL (9.4-12.4); Platelet Count 172 K/uL (130-400); RDW Coefficient of Variation 15.7 % (11.5-14.5); RDW Standard Deviation 57.5 fL (36.4-46.3); Red Blood Count 3.11 M/uL (4.63-6.08); White Blood Count 9.26 K/ul (4.8-10.8)
[2021-12-23 07:04] LABS: Albumin Globulin Ratio 1.1 (0.9-2); Albumin Level 3.6 gm/dl (3.4-5.0); BUN Creatinine Ratio 6.6 (10-20); Bilirubin,Total 0.3 mg/dl (0.2-1.0); Calcium 8.3 mg/dl (8.5-10.1); Creatinine Clr Calc Pharmacy 11.2 ml/min; Est GFR (African American) 6.5 ml/min; Est GFR (Non-African American) 5.6 ml/min; Globulin 3.3 gm/dl (2.5-4.0); Potassium 4.9 mmol/L (3.5-5.1); Total Protein 6.9 gm/dl (6.0-8.3)
[2021-12-23 07:12] LABS: Folate (Folic Acid) 14.19 ng/ml (>5.38)
--- NOTE | 2021-12-23 07:23 | Hospitalist Progress Note ---
Date of Service December 23, 2021 Assessment & Plan (1) Closed dislocation of right ankle: Plan: Due to mechanical fall slipping on wet ground and reportedly bending his right foot back (reports has been dislocated for years in the past) Set in ER Xray with Mildly improved alignment of the acute right ankle fracture status post reduction and casting with persistent displacement and subluxation as above. CT Right Lower Ext w/ Acute comminuted mildly displaced fractures of the medial and posterior malleoli of the right tibia, as described above. Fracture alignment similar to post reduction radiographs but significantly improved since prereduction radiographs. Fracture also extends through the anterior distal right tibia. Significant improvement in tibiotalar joint alignment from prereduction radiographs. Ankle and foot soft tissue swelling. No soft tissue gas. CXR no acute process -- on 2-4L NC (wt up, HD / for 3.6L, nephrology following), titrate as able Ortho consulted POD# 1 s/p p Open Reduction Internal Fixation Right Medial Malleolus Fracture(Right) - Carmelo Chandler DO. EBL 15cc. Moved to tele bed post-op for closer monitoring recommended Hgb 10.9--> 9.5, acute blood loss anemia and dilutional as was ordered IVF post- operatively (rec against IVF if possible) Pain control, antiemetics prn Bowel regimen Will back down to full liquids for now/is passing gas but hypoactive BS Bladder scan/st cath as needed resuming eliquis/plavix tonight PT/OT HD this afternoon lost ~150cc blood. Asymptomatic and plan for repeat CBC this afternoon (2) Fall: Plan: Mechanical in nature on wet floor. - PT/OT following surgery - Restrictions as above (3) CAD (coronary artery disease): Plan: S/p CABG. held Plavix for surgery as above -> resuming tomorrow Not on BB given hx syncope/pauses previously hospitalized and seen by Dr Khoury (was on carvedilol). Remains on amiodarone for hx afib (pre-op EKG w/o afib currently) No CP, noted SOB is his anginal equivalent EKG w/ CP Monitor on telemetry post-operatively --> NSR, no pauses, no afib (4) End-stage renal disease on hemodialysis: Plan: Follows with [facility]. Normal HD days are T-Th-Sat. Wt was 7kg above dry weight and patient tends to have 6-7kg weight gain in between HD sessions reported Nephro consulted HD on 12/21 for 3.7 L and appreciate continued nephrology assistance, HD planned for today Remains on lasix 80mg BID Renal dose/avoid nephrotoxic agents when able Iron studies checked --> iron low 14, TIBC low, trans %sat 6. Discussed with Nephrology and IV Venofer ordered Also, in HD today currently and with 150cc blood loss --> will repeat CBC after Continue Venofer IV B12 borderline and will start supplementation Monitor (5) HTN (hypertension): Plan: BP stable Continues on amlodipine, clonidine, lasix -- held prior to HD this morning Monitor (6) Diabetes mellitus type 2 in obese: Plan: A1c was 7.8%. - Continued home Lantus 10 units QAM, glargine 50u BID but cut AM glargine in half while NPO resume prior dosing following ISS while inpatient, BSGs acceptable (7) Paroxysmal atrial flutter: Plan: Presently auscultation sounds regular to me, EKG w/o afib Eliquis on hold for OR today, continued on home amiodarone Monitor on monitored bed post-operatively -- no evidence for afib Unable to tolerate BB due to pauses reported previously (8) BPH (benign prostatic hyperplasia): Plan: Attempted to use the urinal, but unable to pass urine --> did make some urine yesterday. Issues reported this morning but declining st cath at this time BS for 400cc and will continue to monitor/st cath as needed as patient reporting difficulty passing urine --> recommend st cath once back from HD Continue home flomax, consider increased dose? (9) Anemia: Plan: Acute on chronic Venofer IV per nephrology repeat CBC after HD today, monitor (10) DVT prophylaxis: Plan: SCDs -> Resume apixaban for tonight Plan continued inpatient stay Admission and Anticipated Discharge Date Admission Date: December 21, 2021 Supervising Physician Co-Signing Physician Notes PA Supervision Note: I did not personally see or examine the patient today, but I verified all roman points of MARGARET Cheema's assessment and plan with the following exceptions/additions: None Subjective Patient evaluated after lunch up in HD. Just had some blood loss for about 150cc per HD nurse mary reji didn't get Heparin with his HD and he needs it to prevent clotting and had lost the blood in the line. Planning to get repeat CBC after completed. Patient denies any increased SOB or chest pain. Currently main issue occasional twinge of pain/spasm to his R foot and difficulty urinating.Discussed will have RN bladder scan and cath if needed. Passing some gas but no BM and does have hernia to RLQ nonreducible but nontender/non-erythematous. Discussed clear liquids for now recommended and working on bowel regimen. Review of Systems Review of Systems: All systems reviewed & are unremarkable except as noted in HPI & below Physical Exam Physical Exam: General: WD/WN obe se chroinically il l appearing male l aying almost flat in HD, NAD but wor ifeanyi on getting mo re comfortable in bed, NAD HEENT; ey es anicteric, pupi ls equal and react ban, mmm RESP: nor mal respiratory ef fort, diminshed in the bases, no w/c , on nasal cannuil a CV: regular rate /rhtyhm (62bpm), s ystolic murmur, no increased edema/c rancho tenderness (un able to eval RLE d ue to cast). R arm +AV fistula, cap refill wnl GI: +hy poactive BS, nonte nder, right sided hernia, moderate s ize , softball siz e, nontender/noner ythematous : no menjivar MSK/Neuro: m oves all extremiti es, no focal defic it, RLE with splin t/SUZANNE wrap, toes m obile, cap refill wnl Psych: AOx3,co operative Skin: wa rm dry Results & Data Results & Data ([facility]) Vital Signs (Past 12 Hours) Vital Signs Temp Pulse Pulse Resp BP Pulse Ox O2 Del Method 12/23/21 06:39 36.6 C 67 18 127/52 L 93 12/23/21 03:43 36.6 C 58 L 18 144/65 H 92 12/23/21 00:49 60 12/22/21 23:30 36.5 C 58 L 18 137/66 97 12/22/21 21:26 36.5 C 59 L 16 122/63 92 Nasal Cannula 08/10/22 19:46 37.1 C 59 L 14 122/66 93 Nasal Cannula 12/22/21 19:45 Nasal Cannula 12/22/21 19:26 62 O2 Flow Rate 12/23/21 06:39 2 12/23/21 03:43 2 12/23/21 00:49 12/22/21 23:30 3 12/22/21 21:26 3 12/22/21 19:46 3 12/22/21 19:45 5 12/22/21 19:26 Laboratory Results 12/23/21 12/23/21 12/23/21 Range/Units 06:02 06:02 06:02 WBC 9.26 (4.8-10.8) K/ul RBC 3.11 L (4.63-6.08) M/uL Hgb 9.5 L (14.0-18.0) g/dl Hct 31.2 L (40.1-51.0) % MCV 100.3 H (80.0-100.0) fL MCH 30.5 (25.0-34.0) pg MCHC 30.4 L (32.0-36.0) g/dL RDW Std Deviation 57.5 H (36.4-46.3) fL RDW Coeff of Atif 15.7 H (11.5-14.5) % Plt Count 172 (130-400) K/uL MPV 10.6 (9.4-12.4) fL Sodium 131 L (136-145) mmol/L Potassium 4.9 (3.5-5.1) mmol/L Chloride 92 L (98-107) mmol/L Carbon Dioxide 26 (21-32) mmol/L Anion Gap 13 H (3-11) BUN 57 H (6-23) mg/dl Creatinine 8.66 H* D (0.6-1.4) mg/dl Est Cr Clr Drug Dosing 11.2 ml/min Est GFR ( Amer) 6.5 ml/min Est GFR (Non-Af Amer) 5.6 ml/min BUN/Creatinine Ratio 6.6 L (10-20) Glucose 183 H (70-99(Fasting)) mg/dl POC Glucose (70-99) mg/dl Calcium 8.3 L (8.5-10.1) mg/dl Magnesium (1.7-2.4) mg/dl Iron 14 L (35-175) mcg/dl TIBC 228 L (250-450) mcg/dl Unsaturated IBC 214 (155-355) mcg/dl Transferrin % Sat 6 L (20-50) % Ferritin 570.0 H (8-388) ng/ml Total Bilirubin 0.3 (0.2-1.0) mg/dl AST 17 (13-39) U/L ALT 6 L (7-52) U/L Alkaline Phosphatase 34 (34-104) U/L Total Protein 6.9 (6.0-8.3) gm/dl Albumin 3.6 (3.4-5.0) gm/dl Globulin 3.3 (2.5-4.0) gm/dl Albumin/Globulin Ratio 1.1 (0.9-2) Vitamin B12 320 (180-914) pg/ml Folate 14.19 (>5.38) ng/ml 12/22/21 12/22/21 12/22/21 Range/Units 20:35 18:03 15:09 WBC (4.8-10.8) K/ul RBC (4.63-6.08) M/uL Hgb (14.0-18.0) g/dl Hct (40.1-51.0) % MCV (80.0-100.0) fL MCH (25.0-34.0) pg MCHC (32.0-36.0) g/dL RDW Std Deviation (36.4-46.3) fL RDW Coeff of Atif (11.5-14.5) % Plt Count (130-400) K/uL MPV (9.4-12.4) fL Sodium (136-145) mmol/L Potassium (3.5-5.1) mmol/L Chloride (98-107) mmol/L Carbon Dioxide (21-32) mmol/L Anion Gap (3-11) BUN (6-23) mg/dl Creatinine (0.6-1.4) mg/dl Est Cr Clr Drug Dosing ml/min Est GFR ( Amer) ml/min Est GFR (Non-Af Amer) ml/min BUN/Creatinine Ratio (10-20) Glucose (70-99(Fasting)) mg/dl POC Glucose 142 H 124 H 135 H (70-99) mg/dl Calcium (8.5-10.1) mg/dl Magnesium (1.7-2.4) mg/dl Iron (35-175) mcg/dl TIBC (250-450) mcg/dl Unsaturated IBC (155-355) mcg/dl Transferrin % Sat (20-50) % Ferritin (8-388) ng/ml Total Bilirubin (0.2-1.0) mg/dl AST (13-39) U/L ALT (7-52) U/L Alkaline Phosphatase (34-104) U/L Total Protein (6.0-8.3) gm/dl Albumin (3.4-5.0) gm/dl Globulin (2.5-4.0) gm/dl Albumin/Globulin Ratio (0.9-2) Vitamin B12 (180-914) pg/ml Folate (>5.38) ng/ml 12/22/21 12/22/21 12/22/21 Range/Units 12:49 09:10 09:10 WBC 10.18 (4.8-10.8) K/ul RBC 3.53 L (4.63-6.08) M/uL Hgb 10.9 L (14.0-18.0) g/dl Hct 35.4 L (40.1-51.0) % MCV 100.3 H (80.0-100.0) fL MCH 30.9 (25.0-34.0) pg MCHC 30.8 L (32.0-36.0) g/dL RDW Std Deviation 57.7 H (36.4-46.3) fL RDW Coeff of Atif 15.8 H (11.5-14.5) % Plt Count 181 (130-400) K/uL MPV 10.2 (9.4-12.4) fL Sodium 135 L (136-145) mmol/L Potassium 5.0 (3.5-5.1) mmol/L Chloride 95 L (98-107) mmol/L Carbon Dioxide 30 (21-32) mmol/L Anion Gap 10 (3-11) BUN 40 H (6-23) mg/dl Creatinine 7.54 H* D (0.6-1.4) mg/dl Est Cr Clr Drug Dosing 13.1 ml/min Est GFR ( Amer) 7.7 ml/min Est GFR (Non-Af Amer) 6.6 ml/min BUN/Creatinine Ratio 5.3 L (10-20) Glucose 175 H (70-99(Fasting)) mg/dl POC Glucose 166 H (70-99) mg/dl Calcium 8.6 (8.5-10.1) mg/dl Magnesium 2.3 (1.7-2.4) mg/dl Iron (35-175) mcg/dl TIBC (250-450) mcg/dl Unsaturated IBC (155-355) mcg/dl Transferrin % Sat (20-50) % Ferritin (8-388) ng/ml Total Bilirubin (0.2-1.0) mg/dl AST (13-39) U/L ALT (7-52) U/L Alkaline Phosphatase (34-104) U/L Total Protein (6.0-8.3) gm/dl Albumin (3.4-5.0) gm/dl Globulin (2.5-4.0) gm/dl Albumin/Globulin Ratio (0.9-2) Vitamin B12 (180-914) pg/ml Folate (>5.38) ng/ml 12/22/21 Range/Units 08:46 WBC (4.8-10.8) K/ul RBC (4.63-6.08) M/uL Hgb (14.0-18.0) g/dl Hct (40.1-51.0) % MCV (80.0-100.0) fL MCH (25.0-34.0) pg MCHC (32.0-36.0) g/dL RDW Std Deviation (36.4-46.3) fL RDW Coeff of Atif (11.5-14.5) % Plt Count (130-400) K/uL MPV (9.4-12.4) fL Sodium (136-145) mmol/L Potassium (3.5-5.1) mmol/L Chloride (98-107) mmol/L Carbon Dioxide (21-32) mmol/L Anion Gap (3-11) BUN (6-23) mg/dl Creatinine (0.6-1.4) mg/dl Est Cr Clr Drug Dosing ml/min Est GFR ( Amer) ml/min Est GFR (Non-Af Amer) ml/min BUN/Creatinine Ratio (10-20) Glucose (70-99(Fasting)) mg/dl POC Glucose 184 H (70-99) mg/dl Calcium (8.5-10.1) mg/dl Magnesium (1.7-2.4) mg/dl Iron (35-175) mcg/dl TIBC (250-450) mcg/dl Unsaturated IBC (155-355) mcg/dl Transferrin % Sat (20-50) % Ferritin (8-388) ng/ml Total Bilirubin (0.2-1.0) mg/dl AST (13-39) U/L ALT (7-52) U/L Alkaline Phosphatase (34-104) U/L Total Protein (6.0-8.3) gm/dl Albumin (3.4-5.0) gm/dl Globulin (2.5-4.0) gm/dl Albumin/Globulin Ratio (0.9-2) Vitamin B12 (180-914) pg/ml Folate (>5.38) ng/ml Diagnostic Findings Ankle X-Ray 12/22/21 15:00 FL ankle RT min 3V RTN HISTORY: 71 years-old Male RT ORIF MED MALLEOLUS acute fracture of the right ankle COMPARISON: 12/21/2021 TECHNIQUE: 3 spot fluoroscopic images of the right ankle were obtained utilizing 36.2 seconds fluoroscopy time FINDINGS: Status post plate screw fusion fixating the acute medial malleolar fracture now demonstrating near-anatomic alignment. Acute mildly displaced posterior mal leolar fracture redemonstrated. Acute postoperative soft tissue swelling with deep tissue air. No unexpected opaque foreign body. IMPRESSION: Fluoroscopic assistance as above. ACT 112: Negative or not required by law. The above report was generated using voice recognition software. It may contain grammatical, syntax or spelling errors. Electronically signed by: Carmelo Dumont M.D. 12/22/2021 5:40 PM PG Care Time/CCT Total # of Minutes Spent Total Time Spent with Patient: Total time spent is greater than 50% in coordination of care (as documented) at patient's floor/unit and/or counseling patient: Coding Level of Care Code 03769 Subseq Hosp Care Lvl 3 Diagnoses Closed dislocation of right ankle S93.04XA Fall W19.XXXA CAD (coronary artery disease) I25.119 Associated angina: with unspecified angina Coronary Disease-Associated Artery/Lesion type: [place] artery [place] vs. transplanted heart: [place] heart End-stage renal disease on hemodialysis N18.6; Z99.2 HTN (hypertension) I10 Hypertension type: unspecified Diabetes mellitus type 2 in obese E11.69; E66.9 Paroxysmal atrial flutter I48.92 BPH (benign prostatic hyperplasia) N40.0 Lower urinary tract symptom presence: symptoms absent Anemia D64.9 DVT prophylaxis Z29.9 (1) BPH (benign prostatic hyperplasia) Lower urinary tract symptom presence: symptoms absent Qualified Code(s): N40.0 - Benign prostatic hyperplasia without lower urinary tract symptoms (2) CAD (coronary artery disease) Associated angina: with unspecified angina Coronary Disease-Associated Artery/Lesion type: [place] artery [place] vs. transplanted heart: [place] heart Qualified Code(s): I25.119 - Atherosclerotic heart disease of [place] coronary artery with unspecified angina pectoris (3) HTN (hypertension) Hypertension type: unspecified Qualified Code(s): I10 - Essential (primary) hypertension
[2021-12-23] MEDS: ROSUVASTATIN CALCIUM 10 MG TAB PO SCH (08:59)
[2021-12-23] MEDS: SEVELAMER HCL 800 MG TABLET PO SCH ×3 (08:59→22:18)
[2021-12-23] MEDS: CYANOCOBALAMIN (B-12) 500 MCG TABLET PO SCH (08:59)
[2021-12-23] MEDS: NEPHROCAPS PO SCH (08:59)
[2021-12-23] MEDS: TAMSULOSIN HCL 0.4 MG CAP PO SCH (08:59)
[2021-12-23] MEDS: DOCUSATE SODIUM/SENNA 50/8.6MG TAB PO SCH (09:00)
[2021-12-23] MEDS: DOCUSATE SODIUM 100 MG CAP PO SCH ×2 (09:00→22:19)
[2021-12-23] MEDS ORDERED: EPOETIN ALFA 10,000 UNITS/ML VIAL IV ONE (09:00)
[2021-12-23] MEDS: INSULIN ASPART PER UNIT SC SCH ×4 (09:01→22:08)
[2021-12-23] MEDS: LANTUS PER UNIT CHARGE SQ SCH ×2 (09:07→22:20)
[2021-12-23] MEDS: AMIODARONE 200 MG TAB PO SCH (09:10)
[2021-12-23] MEDS: FUROSEMIDE 80 MG TAB PO SCH ×2 (09:11→18:07)
[2021-12-23] MEDS: amLODIPine BESYLATE 5 MG TAB PO SCH (09:11)
[2021-12-23] MEDS: cloNIDine HCL 0.1 MG TAB PO SCH ×2 (09:11→22:19)
[2021-12-23] MEDS: IRON SUCROSE 200 MG in 0.9 % SODIUM CHLORIDE 100 ML IV SCH (09:42)
--- NOTE | 2021-12-23 09:47 | Nephrology Progress Note ---
Date of Service December 23, 2021 Assessment & Plan (1) End-stage renal disease on hemodialysis: (2) HTN (hypertension): (3) Ankle fracture, right: (4) Fall: (5) Anemia due to chronic kidney disease: Plan ESRD on hemodialysis Monday, , Monday at [facility] [place]. Admitted after a fall at home and right ankle closed dislocation. Currently blood pressure, volume status and electrolyte acceptable. hemoglobin stable. -- Plan for dialysis today, UF as tolerated with goal to estimated dry weight of 130 kg -- dose medications for EGFR less than 10, right arm nephrology precaution -- continue on Renvela 3 tab t.i.d. with meals, renal vitamin. avoid IV fluid -- continue on Lasix 80 mg twice a day will follow Admission and Anticipated Discharge Date Admission Date: December 21, 2021 La Guerra was seen and evaluated this morning. He is doing well, had rt ankle surgery yesterday. Blood pressure acceptable. Electrolyte acceptable. Review of Systems Review of Systems: Detailed review of system was otherwise unremarkable. Physical Exam Constitutional: WD/WN, vitals as above no acute distress Respiratory: no respiratory distress Auscultation: lungs clear to auscultation bilaterally Cardiovascular: Rate/Rhythm: regular rate and regular rhythm Heart Sounds: normal S1 and normal S2 Extremities: + AV fistula ( Right brachiocephalic AV fistula with thrill and bruit); no edema Musculoskeletal: rt ankle in dressing, elevated. Skin: no rashes Neurologic: no focal motor deficits Psychiatric: Orientation: alert and oriented x 3 Affect: euthymic affect Results & Data ([facility]) Vital Signs (Past 12 Hours) Vital Signs Temp Pulse Pulse Resp BP Pulse Ox O2 Flow Rate 12/23/21 07:58 58 L 12/23/21 06:39 36.6 C 67 18 127/52 L 93 2 12/23/21 03:43 36.6 C 58 L 18 144/65 H 92 2 12/23/21 00:49 60 12/22/21 23:30 36.5 C 58 L 18 137/66 97 3 PG Care Time/CCT Total # of Minutes Spent Total Time Spent with Patient: Total time spent is greater than 50% in coordination of care (as documented) at patient's floor/unit and/or counseling patient: Coding Level of Care Code 02655 Subseq Hosp Care Lvl 2 Diagnoses End-stage renal disease on hemodialysis N18.6; Z99.2 HTN (hypertension) I10 Hypertension type: unspecified Ankle fracture, right S82.891A Fall W19.XXXA Anemia due to chronic kidney disease N18.9; D63.1 (1) HTN (hypertension) Hypertension type: unspecified Qualified Code(s): I10 - Essential (primary) hypertension
--- NOTE | 2021-12-23 12:28 | Orthopedic Progress Note ---
Date of Service December 23, 2021 Assessment & Plan (1) Ankle fracture, right: Plan: Postop day 1 status post ORIF medial malleolus fracture PT/OT protocols. Nonweightbearing right lower extremity. Elevation and ice of the right lower extremity. DVT prophylaxis-patient may resume his Eliquis this evening. Pain management as written. Admission and Anticipated Discharge Date Admission Date: December 21, 2021 Subjective Postop day 1 Patient lying in bed. Currently receiving dialysis today. States that his ankle is somewhat sore but otherwise he feels well. Overall the pain is better. Physical Exam Physical Exam: Splint is clean, dry, and intact. Toes are pink and warm. Moving his toes at this time. Results & Data ([facility]) Vital Signs (Past 12 Hours) Vital Signs Temp Pulse Pulse Pulse Resp BP BP 12/23/21 10:30 61 137/64 12/23/21 10:00 60 135/60 12/23/21 09:39 60 142/66 H 12/23/21 09:31 37 C 67 61 12/23/21 07:58 58 L 12/23/21 06:39 36.6 C 67 18 127/52 L 12/23/21 03:43 36.6 C 58 L 18 144/65 H 12/23/21 00:49 60 Pulse Ox O2 Flow Rate 12/23/21 10:30 12/23/21 10:00 12/23/21 09:39 12/23/21 09:31 12/23/21 07:58 12/23/21 06:39 93 2 12/23/21 03:43 92 2 12/23/21 00:49
[2021-12-23] MEDS: HYDROmorphone INJ 0.5 MG/0.5 ML SYR IV PRN (13:14)
[2021-12-23] MEDS ORDERED: CLOPIDOGREL BISULFATE 75 MG TAB PO ONE (13:59)
[2021-12-23 16:13] LABS: Basophils # (auto) 0.03 K/uL (0-0.2); Basophils % (auto) 0.3 %; Eosinophils % (auto) 0.8 %; Hematocrit (blood only) 33.1 % (40.1-51.0); Hemoglobin 10.6 g/dl (14.0-18.0); Immature Granulocytes # (auto) 0.05 K/uL (0.00-0.02); Immature Granulocytes % (auto) 0.4 %; Lymphocytes # (auto) 0.62 K/uL (1.2-3.4); Lymphocytes % (auto) 5.3 %; Mean Corpuscular Hemoglobin 31.3 pg (25.0-34.0); Mean Corpuscular Volume 97.6 fL (80.0-100.0); Mean Platelet Volume 10.8 fL (9.4-12.4); Monocytes # (auto) 1.49 K/uL (0.24-0.82); Monocytes % (auto) 12.6 %; Neutrophils % (auto) 80.6 %; Platelet Count 167 K/uL (130-400); RDW Coefficient of Variation 15.6 % (11.5-14.5); RDW Standard Deviation 55.9 fL (36.4-46.3); Red Blood Count 3.39 M/uL (4.63-6.08); White Blood Count 11.79 K/ul (4.8-10.8)
[2021-12-23] MEDS: oxyCODONE HCL IR 5 MG TAB (IMMEDIATE RELEASE) PO PRN ×2 (18:19→22:19)
[2021-12-23] MEDS: bisacodyL 10 MG SUPP PR PRN (22:19)
--- NOTE | 2021-12-23 22:47 | Electrocardiogram Report ---
Test Reason : Blood Pressure : / mmHG Vent. Rate : 065 BPM Atrial Rate : 065 BPM P-R Int : 250 ms QRS Dur : 126 ms QT Int : 452 ms P-R-T Axes : -13 070 029 degrees QTc Int : 470 ms Sinus rhythm with 1st degree A-V block Non-specific intra-ventricular conduction block Abnormal ECG When compared with ECG of 23-NOV-2021 01:06, No significant change Confirmed by Sylvester Jon ([id number]) on 12/23/2021 10:47:31 PM Referred By: REFERRED SELF Confirmed By:Sylvester Jon
[2021-12-23] MEDS: APIXABAN 5 MG TABLET PO SCH (23:15)
[2021-12-24] MEDS: oxyCODONE HCL IR 5 MG TAB (IMMEDIATE RELEASE) PO PRN ×3 (05:51→21:37)
[2021-12-24 06:19] LABS: Hematocrit (blood only) 31.1 % (40.1-51.0); Hemoglobin 9.4 g/dl (14.0-18.0); Mean Corpuscular Hemoglobin 30.1 pg (25.0-34.0); Mean Corpuscular Hgb Conc 30.2 g/dL (32.0-36.0); Mean Corpuscular Volume 99.7 fL (80.0-100.0); Mean Platelet Volume 10.8 fL (9.4-12.4); Platelet Count 164 K/uL (130-400); RDW Coefficient of Variation 15.6 % (11.5-14.5); RDW Standard Deviation 57.1 fL (36.4-46.3); Red Blood Count 3.12 M/uL (4.63-6.08); White Blood Count 9.74 K/ul (4.8-10.8)
[2021-12-24 07:16] LABS: BUN Creatinine Ratio 5.1 (10-20); Calcium 8.7 mg/dl (8.5-10.1); Creatinine Clr Calc Pharmacy 14.5 ml/min; Est GFR (Non-African American) 7.8 ml/min; Magnesium 2.2 mg/dl (1.7-2.4); Potassium 4.1 mmol/L (3.5-5.1)
[2021-12-24] MEDS: APIXABAN 5 MG TABLET PO SCH ×2 (09:05→21:31)
[2021-12-24] MEDS: TAMSULOSIN HCL 0.4 MG CAP PO SCH (09:05)
[2021-12-24] MEDS: CYANOCOBALAMIN (B-12) 500 MCG TABLET PO SCH (09:05)
[2021-12-24] MEDS: FUROSEMIDE 80 MG TAB PO SCH ×2 (09:06→17:37)
[2021-12-24] MEDS: SEVELAMER HCL 800 MG TABLET PO SCH ×3 (09:06→21:31)
[2021-12-24] MEDS: amLODIPine BESYLATE 5 MG TAB PO SCH (09:06)
[2021-12-24] MEDS: DOCUSATE SODIUM 100 MG CAP PO SCH ×2 (09:14→21:32)
[2021-12-24] MEDS: cloNIDine HCL 0.1 MG TAB PO SCH ×2 (09:15→21:36)
[2021-12-24] MEDS: DOCUSATE SODIUM/SENNA 50/8.6MG TAB PO SCH ×2 (09:15→21:39)
[2021-12-24] MEDS: INSULIN ASPART PER UNIT SC SCH ×4 (09:15→21:32)
[2021-12-24] MEDS: LANTUS PER UNIT CHARGE SQ SCH ×2 (09:15→21:37)
[2021-12-24] MEDS: IRON SUCROSE 200 MG in 0.9 % SODIUM CHLORIDE 100 ML IV SCH (09:16)
[2021-12-24] MEDS: ONDANSETRON INJ 2 MG/ML 2 ML VIAL IV PRN (09:25)
--- NOTE | 2021-12-24 10:27 | Nephrology Progress Note ---
Date of Service December 24, 2021 Assessment & Plan (1) End-stage renal disease on hemodialysis: (2) HTN (hypertension): (3) Ankle fracture, right: (4) Fall: (5) Anemia due to chronic kidney disease: Plan ESRD on hemodialysis Monday, , Monday at [facility] at [place]. Admitted after a fall at home and right ankle closed fracture and dislocation, s/p ORIF off right middle malleolar fracture on 02/21/2022. Currently blood pressure, volume status and electrolyte acceptable. hemoglobin stable. Had dialysis yesterday, had more than 4 L UF, close to dry weight. -- Plan for dialysis tomorrow, UF as tolerated with goal to estimated dry weight of 130 kg -- dose medications for EGFR less than 10, right arm nephrology precaution -- continue on Renvela 3 tab t.i.d. with meals, renal vitamin. avoid IV fluid -- continue on Lasix 80 mg twice a day -- on Venofer will follow Admission and Anticipated Discharge Date Admission Date: December 21, 2021 La Guerra was seen and examined this morning. Overall he is feeling well. Continues to have significant pain in right ankle but better when his not moving. Had more than 4 L of UF yesterday, currently his close to his dry weight. Blood pressure acceptable P electrolyte acceptable. Review of Systems Review of Systems: Detailed review of system was otherwise unremarkable. Physical Exam Constitutional: WD/WN, vitals as above no acute distress Respiratory: no respiratory distress Auscultation: lungs clear to auscultation bilaterally Cardiovascular: Rate/Rhythm: regular rate and regular rhythm Heart Sounds: normal S1 and normal S2 Extremities: + AV fistula ( Right brachiocephalic AV fistula with thrill and bruit); no edema Musculoskeletal: rt ankle in dressing, elevated. Skin: no rashes Neurologic: no focal motor deficits Psychiatric: Orientation: alert and oriented x 3 Affect: euthymic affect Results & Data ([facility]) Vital Signs (Past 12 Hours) Vital Signs Temp Pulse Resp BP Pulse Ox O2 Del Method O2 Flow Rate 12/24/21 07:50 36.7 C 68 18 136/66 98 Nasal Cannula 2 12/24/21 03:15 36.6 C 72 20 123/64 93 Nasal Cannula 4 12/23/21 23:04 36.8 C 76 18 150/67 H 93 Nasal Cannula 4 PG Care Time/CCT Total # of Minutes Spent Total Time Spent with Patient: Total time spent is greater than 50% in coordination of care (as documented) at patient's floor/unit and/or counseling patient: Coding Level of Care Code 69842 Subseq Hosp Care Lvl 3 Diagnoses End-stage renal disease on hemodialysis N18.6; Z99.2 HTN (hypertension) I10 Hypertension type: unspecified Ankle fracture, right S82.891A Fall W19.XXXA Anemia due to chronic kidney disease N18.9; D63.1 (1) HTN (hypertension) Hypertension type: unspecified Qualified Code(s): I10 - Essential (primary) hypertension
[2021-12-24] MEDS: NEPHROCAPS PO SCH (11:43)
[2021-12-24] MEDS: AMIODARONE 200 MG TAB PO SCH (11:43)
[2021-12-24] MEDS: ROSUVASTATIN CALCIUM 10 MG TAB PO SCH (11:43)
[2021-12-24] MEDS ORDERED: bisacodyL 10 MG SUPP PR STA (13:10)
--- NOTE | 2021-12-24 13:26 | Orthopedic Progress Note ---
Date of Service December 24, 2021 Assessment & Plan (1) Ankle fracture, right: Plan: Postop day 2 status post ORIF medial malleolus fracture PT/OT protocols. Nonweightbearing right lower extremity. Elevation and ice of the right lower extremity. DVT prophylaxis-patient may resume his Eliquis this evening. Pain management as written. Ortho will sign off at this time. Instructions placed in chart. Please call with any questions. Admission and Anticipated Discharge Date Admission Date: December 21, 2021 Subjective Pt resting comfortably. Physical Exam Physical Exam: Splint is C/D/I. Toes pink and warm. Results & Data ([facility]) Vital Signs (Past 12 Hours) Vital Signs Temp Pulse Pulse Resp BP Pulse Ox O2 Del Method 12/24/21 12:26 37.0 C 69 17 141/52 H 98 Room Air 12/24/21 08:00 63 12/24/21 07:50 36.7 C 68 18 136/66 98 Nasal Cannula 12/24/21 03:15 36.6 C 72 20 123/64 93 Nasal Cannula O2 Flow Rate 12/24/21 12:26 12/24/21 08:00 12/24/21 07:50 2 12/24/21 03:15 4
--- NOTE | 2021-12-24 19:05 | Hospitalist Progress Note ---
Date of Service December 24, 2021 Assessment & Plan (1) Closed dislocation of right ankle: Plan: Due to mechanical fall slipping on wet ground and reportedly bending his right foot back (reports has been dislocated for years in the past) Set in ER Xray with Mildly improved alignment of the acute right ankle fracture status post reduction and casting with persistent displacement and subluxation as above. CT Right Lower Ext w/ Acute comminuted mildly displaced fractures of the medial and posterior malleoli of the right tibia, as described above. Fracture a lignment similar to post reduction radiographs but significantly improved since prereduction radiographs. Fracture also extends through the anterior distal right tibia. Significant improvement in tibiotalar joint alignment from prereduction radiographs. Ankle and foot soft tissue swelling. No soft tissue gas. CXR no acute process -- on 2-4L NC due to volume overload, now s/p 4L UF at HD, weaned to room air Ortho consulted S/p Open Reduction Internal Fixation Right Medial Malleolus Fracture(Right) - Carmelo Chandler DO. EBL 15cc. on 12/22 Hgb 10.9--> 9.5, acute blood loss anemia Improving, post-op care as per Ortho f/u with Ortho in office after discharge Pain control, antiemetics prn Bowel regimen-add on bisacodyl [place] ok to adv diet to low fiber today as liquids making him nauseated from acid PT/OT-awaiting rehab placement (2) Fall: Plan: Mechanical in nature on wet floor. - PT/OT following surgery - Restrictions as above (3) CAD (coronary artery disease): Plan: S/p CABG. held Plavix for surgery -now will resume Not on BB given hx syncope/pauses previously hospitalized and seen by Dr Khoury (was on carvedilol). Remains on amiodarone for hx afib (pre-op EKG w/o afib currently) No CP, noted SOB is his anginal equivalent EKG w/ CP Monitor on telemetry post-operatively --> NSR, no pauses, no afib--> can downgrade to med/surg (4) End-stage renal disease on hemodialysis: Plan: Follows with [facility]. Normal HD days are T-Th-Mon. Wt was 7kg above dry weight and patient tends to have 6-7kg weight gain in between HD sessions reported Nephro consulted Continue HD MWF Remains on lasix 80mg BID Iron studies checked --> iron low 14, TIBC low, trans %sat 6. IV Venofer ordered x 5 doses B12 borderline and will start supplementation (5) HTN (hypertension): Plan: BP stable Continues on amlodipine, clonidine, lasix -- held prior to HD Monitor (6) Diabetes mellitus type 2 in obese: Plan: A1c was 7.8%. - Continued home Lantus 50u BID ISS while inpatient, BSGs acceptable (7) Paroxysmal atrial flutter: Plan: remains in NSR here on tele have since restarted Eliquis -continued on home amiodarone Monitor on monitored bed post-operatively -- no evidence for afib Unable to tolerate BB due to pauses reported previously -downgrade to med/surg (8) BPH (benign prostatic hyperplasia): Plan: has some possible urine retention issues but usually makes about 300mL daily BS for 400cc and will continue to monitor/st cath as needed as patient reporting difficulty passing urine --> recommend st cath once back from HD Continue home flomax, consider increased dose? (9) Anemia: Plan: Acute on chronic Venofer IV per nephrology (10) DVT prophylaxis: Plan: SCDs,apixaban Plan Dispo-stable medically for discharge but denied [facility], awaiting auth [facility] SNF [facility], probably not till at least Monday Admission and Anticipated Discharge Date Admission Date: December 21, 2021 Subjective Pt had some nausea today and feels it's from the acidic liquid diet. He had a couple small, mucous BMs. Denies abd pains. Has some pain in right foot/ankle with movement but it feels better elevated on the chair in front of him Tele with NSR rates 60-80s Review of Systems Review of Systems: All systems reviewed & are unremarkable except as noted in HPI & below Physical Exam Constitutional: WD/WN, vitals as above + obese Neck: trachea midline, no thyromegaly Respiratory: normal respiratory effort, lungs clear to auscultation Cardiovascular: RRR, no murmur, no edema Chest (Breasts): Chest: normal inspection of chest Gastrointestinal (Abdomen): normal bowel sounds, soft, nontender, no hepatosplenomegaly Musculoskeletal: Extremities: + extremities abnormal to inspection (right leg in splint and SUZANNE wrap,toes nvi), no cyanosis and no clubbing Skin: no rashes, warm and dry Neurologic: moves all extremities and awake; no focal motor deficits Psychiatric: A+Ox3, euthymic affect Lymphatic: no lymphedema Results & Data Results & Data ([facility]) Vital Signs (Past 12 Hours) Vital Signs Temp Pulse Pulse Resp BP Pulse Ox O2 Del Method 12/24/21 17:01 67 12/24/21 16:00 36.8 C 65 16 131/68 95 Room Air 12/24/21 12:26 37.0 C 69 17 141/52 H 98 Room Air 12/24/21 08:00 63 12/24/21 07:50 36.7 C 68 18 136/66 98 Nasal Cannula O2 Flow Rate 12/24/21 17:01 12/24/21 16:00 12/24/21 12:26 12/24/21 08:00 12/24/21 07:50 2 Laboratory Results 12/24/21 05:37 12/24/21 05:37 PG Care Time/CCT Total # of Minutes Spent Total Time Spent with Patient: Total time spent is greater than 50% in coordination of care (as documented) at patient's floor/unit and/or counseling patient: Coding Level of Care Code 49408 Subseq Hosp Care Lvl 2 Diagnoses Closed dislocation of right ankle S93.04XA Fall W19.XXXA CAD (coronary artery disease) I25.119 Coronary Disease-Associated Artery/Lesion type: [place] artery [place] vs. transplanted heart: [place] heart Associated angina: with unspecified angina End-stage renal disease on hemodialysis N18.6; Z99.2 HTN (hypertension) I10 Hypertension type: unspecified Diabetes mellitus type 2 in obese E11.69; E66.9 Paroxysmal atrial flutter I48.92 BPH (benign prostatic hyperplasia) N40.0 Lower urinary tract symptom presence: symptoms absent Anemia D64.9 DVT prophylaxis Z29.9 (1) CAD (coronary artery disease) Coronary Disease-Associated Artery/Lesion type: [place] artery [place] vs. transplanted heart: [place] heart Associated angina: with unspecified angina Qu alified Code(s): I25.119 - Atherosclerotic heart disease of [place] coronary artery with unspecified angina pectoris (2) HTN (hypertension) Hypertension type: unspecified Qualified Code(s): I10 - Essential (primary) hypertension (3) BPH (benign prostatic hyperplasia) Lower urinary tract symptom presence: symptoms absent Qualified Code(s): N40.0 - Benign prostatic hyperplasia without lower urinary tract symptoms
[2021-12-25] MEDS: oxyCODONE HCL IR 5 MG TAB (IMMEDIATE RELEASE) PO PRN ×2 (06:19→15:43)
[2021-12-25] MEDS: INSULIN ASPART PER UNIT SC SCH ×4 (08:22→21:09)
[2021-12-25] MEDS: AMIODARONE 200 MG TAB PO SCH (08:26)
[2021-12-25] MEDS: NEPHROCAPS PO SCH (08:27)
[2021-12-25] MEDS: FUROSEMIDE 80 MG TAB PO SCH ×2 (08:27→15:42)
[2021-12-25] MEDS: TAMSULOSIN HCL 0.4 MG CAP PO SCH (08:27)
[2021-12-25] MEDS: APIXABAN 5 MG TABLET PO SCH ×2 (08:27→21:07)
[2021-12-25] MEDS: DOCUSATE SODIUM/SENNA 50/8.6MG TAB PO SCH ×2 (08:27→21:08)
[2021-12-25] MEDS: DOCUSATE SODIUM 100 MG CAP PO SCH ×2 (08:27→21:08)
[2021-12-25] MEDS: amLODIPine BESYLATE 5 MG TAB PO SCH (08:27)
[2021-12-25] MEDS: CYANOCOBALAMIN (B-12) 500 MCG TABLET PO SCH (08:27)
[2021-12-25] MEDS: SEVELAMER HCL 800 MG TABLET PO SCH ×3 (08:27→21:10)
[2021-12-25] MEDS: IRON SUCROSE 200 MG in 0.9 % SODIUM CHLORIDE 100 ML IV SCH (08:32)
[2021-12-25] MEDS: cloNIDine HCL 0.1 MG TAB PO SCH ×2 (08:32→21:12)
[2021-12-25] MEDS: LANTUS PER UNIT CHARGE SQ SCH ×2 (08:32→21:10)
--- NOTE | 2021-12-25 13:21 | Nephrology Progress Note ---
Date of Service December 25, 2021 Assessment & Plan (1) End-stage renal disease on hemodialysis: Plan: HD TTS. Orders for HD today reviewed with HD nurse. 4.5 hours, UF goal 4 L. 2 K bath. Qb 350-400. Clearance acceptable. Tolerating HD well. No complications with treatment. AVF functioning appropriately. Medications appropriately dosed for IHD. Sevelamer QAC for hyperphosphatemia. Renal diet. (2) HTN (hypertension): Plan: Hypervolemic. BP acceptable. Consider holding amlodipine prior to next HD. Continue amlodipine, clonidine, and furosemide per home Rx. (3) Anemia due to chronic kidney disease: Plan: Venofer 200 mg IV daily provided. (4) Ankle fracture, right: Plan: ORIF right middle malleolar fracture on 02/21/2022. Possible DC to [facility] Monday or Monday. Plan ESRD on hemodialysis Monday, , Monday at [facility] at [place]. Admitted after a fall at home and right ankle closed fracture and dislocation, . Admission and Anticipated Discharge Date Admission Date: December 21, 2021 Subjective No acute events overnight. Angel was seen and evaluated during hemodialysis this morning. He is experiencing some pain and discomfort in his ankle. Pain control has been reasonable. Moderate amount of swelling reported. Some nausea with pain medication reported this AM. Otherwise, Angel feels well. He denied SOB. He was tolerating HD well. Review of Systems Review of Systems: All systems reviewed & are unremarkable except as noted in HPI & below Physical Exam Constitutional: well developed; no acute distress Eyes: + anicteric sclerae; no corneal abnormality ENMT: Mouth: no oral mucosal abnormality and oral mucous membranes not dry Neck: normal visual inspection and trachea midline Respiratory: normal respiratory effort Auscultation: lungs clear to auscultation bilaterally Cardiovascular: Rate/Rhythm: regular rate Heart Sounds: normal S1 and normal S2 Extremities: + edema and + AV fistula Musculoskeletal: Extremities: + lower leg abnormality Right; no cyanosis and no clubbing Skin: normal turgor; no lesions Neurologic: Motor/Sensory: no tremor and no asterixis Psychiatric: Orientation: alert and oriented x 3 Results & Data ([facility]) Vital Signs (Past 12 Hours) Vital Signs Temp Pulse Pulse Pulse Resp BP BP 12/25/21 13:00 68 92/38 L 12/25/21 12:30 63 117/61 12/25/21 12:00 64 100/58 L 12/25/21 11:30 66 144/76 H 12/25/21 11:00 69 129/61 12/25/21 10:45 64 124/53 L 12/25/21 10:26 36.5 C 64 12/25/21 08:13 36.3 C L 62 18 138/61 12/25/21 06:39 Pulse Ox O2 Del Method O2 Flow Rate 12/25/21 13:00 12/25/21 12:30 12/25/21 12:00 12/25/21 11:30 12/25/21 11:00 12/25/21 10:45 12/25/21 10:26 12/25/21 08:13 96 Nasal Cannula 2 12/25/21 06:39 99 Nasal Cannula 2 Laboratory Results Laboratory Results - last 24 hr 12/24/21 12/24/21 12/25/21 17:00 20:07 08:03 POC Glucose 135 H 138 H 140 H PG Care Time/CCT Total # of Minutes Spent Total Time Spent with Patient: Total time spent is greater than 50% in coordination of care (as documented) at patient's floor/unit and/or counseling patient: Coding Level of Care Code 79664 Subseq Hosp Care Lvl 3 Diagnoses End-stage renal disease on hemodialysis N18.6; Z99.2 HTN (hypertension) I10 Hypertension type: unspecified Anemia due to chronic kidney disease N18.9; D63.1 Ankle fracture, right S82.891A (1) HTN (hypertension) Hypertension type: unspecified Qualified Code(s): I10 - Essential (primary) hypertension
[2021-12-25] MEDS: CLOPIDOGREL BISULFATE 75 MG TAB PO SCH (15:43)
[2021-12-25] MEDS: ROSUVASTATIN CALCIUM 10 MG TAB PO SCH (15:43)
[2021-12-25] MEDS: CARBOHYDRATES FOR HYPOGLYCEMIA PO PRN (17:33)
--- NOTE | 2021-12-25 19:40 | Hospitalist Progress Note ---
Date of Service December 25, 2021 Assessment & Plan (1) Closed dislocation of right ankle: Plan: Due to mechanical fall slipping on wet ground and reportedly bending his right foot back (reports has been dislocated for years in the past) Set in ER Xray with Mildly improved alignment of the acute right ankle fracture status post reduction and casting with persistent displacement and subluxation as above. CT Right Lower Ext w/ Acute comminuted mildly displaced fractures of the medial and posterior malleoli of the right tibia, as described above. Fracture alignment similar to post reduction radiographs but significantly improved since prereduction radiographs. Fracture also extends through the anterior distal right tibia. Significant improvement in tibiotalar joint alignment from prereduction radiographs. Ankle and foot soft tissue swelling. No soft tissue gas. CXR no acute process -- on 2-4L NC intermittently, and wears oxygen as needed at home Ortho consulted S/p Open Reduction Internal Fixation Right Medial Malleolus Fracture(Right) - Carmelo Chandler DO. EBL 15cc. on 12/22 Hgb 10.9--> 9.5, acute blood loss anemia Improving, post-op care as per Ortho f/u with Ortho in office after discharge Pain control, antiemetics prn Bowel regimen-continue bisacodyl CT as needed PT/OT-awaiting rehab placement (2) Acute metabolic encephalopathy: Plan: Secondary to hypoglycemia and opioid overdose Reduced doses of oxycodone Treating hypoglycemia as below Improving (3) Diabetes mellitus type 2 in obese: Plan: A1c was 7.8%. Had a significant hypoglycemic event on the evening of 12/25 with blood sugar in the 60s, was given oral glucose and then later an amp of D50 as he continued to be lethargic and felt very lightheaded Symptoms improved as blood sugar came out, vitals remained stable Hold home Lantus 50 units for tonight but typically has been on Lantus 50 units twice daily Loosen NovoLog correction factor up to 35, RONNI high end of range 150, and get rid of carb ratio for now Every hour checks of glucose for the next couple of hours Transfer back to medical floor with telemetry for closer observation (4) Fall: Plan: Mechanical in nature on wet floor. - PT/OT following surgery - Restrictions as above (5) CAD (coronary artery disease): Plan: S/p CABG. held Plavix for surgery -has since been resumed Not on BB given hx syncope/pauses previously hospitalized and seen by Dr Khoury (was on carvedilol). Remains on amiodarone for hx afib (pre-op EKG w/o afib currently) No CP, noted SOB is his anginal equivalent EKG w/ CP (6) End-stage renal disease on hemodialysis: Plan: Follows with [facility]. Normal HD days are T--Sat. Wt was 7kg above dry weight and patient tends to have 6-7kg weight gain in between HD sessions reported Nephro consulted Continue HD MWF Remains on lasix 80mg BID Iron studies checked --> iron low 14, TIBC low, trans %sat 6. IV Venofer ordered x 5 doses B12 borderline and started supplementation (7) HTN (hypertension): Plan: BP stable Continues on amlodipine, clonidine, lasix -- held prior to HD Monitor (8) Paroxysmal atrial flutter: Plan: remains in NSR here on tele have since restarted Eliquis -continued on home amiodarone Monitor on monitored bed post-operatively -- no evidence for afib Unable to tolerate BB due to pauses reported previously (9) BPH (benign prostatic hyperplasia): Plan: Continues to require straight cath once daily usually in the evening Continue home flomax, consider increased dose but often has hypotension with dialysis (10) Anemia: Plan: Acute on chronic Venofer IV per nephrology (11) DVT prophylaxis: Plan: SCDs,apixaban Plan Dispo- awaiting auth for SNF at [facility], probably not till at least Monday Admission and Anticipated Discharge Date Admission Date: December 21, 2021 Subjective Patient was at dialysis when I went to see him earlier and when I came back, he was having a hypoglycemic event with blood sugar down in the 60s. He had been given oral glucose and his blood sugar was up to 118, but he was still quite lethargic. He was complaining of lightheadedness. Denied chest pain or shortness of breath, no headache. He was moving all extremities and did not have any facial droop or slurred speech. His blood pressure and heart rate are normal, pulse ox was slightly low and was requiring nasal cannula but this is chronic for him. A repeat blood sugar after a few minutes was back down to 88 again. He reports that a blood sugar In the 80s is quite low for him. He was given 1 amp of D50 and his mental status improved over the next 20 minutes or so. He was also given Narcan as he had pinpoint pupils and had been receiving multiple doses of oxycodone 10 mg 4 pain. He was transferred to medical-telemetry unit again and will have every hour blood sugar checks. His evening Lantus dose will be held, and his NovoLog scale was loosened. Review of Systems Review of Systems: All systems reviewed & are unremarkable except as noted in HPI & below Physical Exam Constitutional: WD/WN, vitals as above + obese Eyes: + anicteric sclerae Pinpoint pupils, reactive Neck: trachea midline, no thyromegaly Respiratory: normal respiratory effort, lungs clear to auscultation Cardiovascular: RRR, no murmur, no edema Chest (Breasts): Chest: normal inspection of chest Gastrointestinal (Abdomen): normal bowel sounds, soft, nontender, no hepatosplenomegaly Musculoskeletal: Extremities: + extremities abnormal to inspection (right leg in splint and SUZANNE wrap,toes nvi), no cyanosis and no clubbing Skin: no rashes, warm and dry Neurologic: moves all extremities and awake; no focal motor deficits Psychiatric: Orientation: alert, oriented x 3 and cooperative Drowsy but does answer questions but quickly falls back asleep Results & Data Results & Data ([facility]) Vital Signs (Past 12 Hours) Vital Signs Temp Pulse Pulse Pulse Resp BP BP 12/25/21 19:05 36.9 C 73 20 148/67 H 12/25/21 16:01 36.6 C 75 19 124/64 12/25/21 15:10 36.5 C 66 121/58 L 12/25/21 14:30 66 100/65 12/25/21 14:00 66 101/64 12/25/21 13:30 66 122/63 12/25/21 13:00 68 92/38 L 12/25/21 12:30 63 117/61 12/25/21 12:00 64 100/58 L 12/25/21 11:30 66 144/76 H 12/25/21 11:00 69 129/61 12/25/21 10:45 64 124/53 L 12/25/21 10:26 36.5 C 64 12/25/21 08:13 36.3 C L 62 18 138/61 Pulse Ox O2 Del Method O2 Flow Rate 12/25/21 19:05 92 Nasal Cannula 3 12/25/21 16:01 92 Nasal Cannula 1 12/25/21 15:10 12/25/21 14:30 12/25/21 14:00 12/25/21 13:30 12/25/21 13:00 12/25/21 12:30 12/25/21 12:00 12/25/21 11:30 12/25/21 11:00 12/25/21 10:45 12/25/21 10:26 12/25/21 08:13 96 Nasal Cannula 2 Laboratory Results 12/25/21 12/25/21 12/25/21 Range/Units 19:31 18:29 18:12 POC Glucose 167 H 212 H 88 (70-99) mg/dl 12/25/21 12/25/21 12/25/21 Range/Units 17:39 17:29 17:21 POC Glucose 118 H 86 79 (70-99) mg/dl 12/25/21 12/25/21 12/25/21 Range/Units 17:10 15:47 08:03 POC Glucose 66 L* 76 140 H (70-99) mg/dl 12/24/21 Range/Units 20:07 POC Glucose 138 H (70-99) mg/dl PG Care Time/CCT Total # of Minutes Spent Total Time Spent with Patient: Total time spent is greater than 50% in coordination of care (as documented) at patient's floor/unit and/or counseling patient: Critical care time spent for alteration in patient's mental status, treating hy poglycemia and opioid overdose, I spent 35 minutes in total. This was outside of my previous visit and exam. 13609 Coding Level of Care Code 01088 Subseq Hosp Care Lvl 3 (25 - SIGNIFICANT, SEPARATELY IDENTIFIABLE ) Diagnoses Closed dislocation of right ankle S93.04XA Acute metabolic encephalopathy G93.41 Diabetes mellitus type 2 in obese E11.69; E66.9 Fall W19.XXXA CAD (coronary artery disease) I25.119 Associated angina: with unspecified angina Coronary Disease-Associated Artery/Lesion type: [place] artery [place] vs. transplanted heart: [place] heart End-stage renal disease on hemodialysis N18.6; Z99.2 HTN (hypertension) I10 Hypertension type: unspecified Paroxysmal atrial flutter I48.92 BPH (benign prostatic hyperplasia) N40.0 Lower urinary tract symptom presence: symptoms absent Anemia D64.9 DVT prophylaxis Z29.9 (1) BPH (benign prostatic hyperplasia) Lower urinary tract symptom presence: symptoms absent Qualified Code(s): N40.0 - Benign prostatic hyperplasia without lower urinary tract symptoms (2) CAD (coronary artery disease) Associated angina: with unspecified angina Coronary Disease-Associated Artery/Lesion type: [place] artery [place] vs. transplanted heart: [place] heart Qualified Code(s): I25.119 - Atherosclerotic heart disease of [place] coronary artery with unspecified angina pectoris (3) HTN (hypertension) Hypertension type: unspecified Qualified Code(s): I10 - Essential (primary) hypertension
[2021-12-26] MEDS: oxyCODONE HCL IR 5 MG TAB (IMMEDIATE RELEASE) PO PRN ×2 (05:04→12:00)
[2021-12-26 07:35] LABS: Basophils # (auto) 0.05 K/uL (0-0.2); Basophils % (auto) 0.4 %; Eosinophils % (auto) 1.6 %; Hematocrit (blood only) 30.2 % (40.1-51.0); Hemoglobin 9.2 g/dl (14.0-18.0); Immature Granulocytes # (auto) 0.09 K/uL (0.00-0.02); Immature Granulocytes % (auto) 0.7 %; Lymphocytes # (auto) 0.99 K/uL (1.2-3.4); Lymphocytes % (auto) 8.1 %; Mean Corpuscular Hemoglobin 30.4 pg (25.0-34.0); Mean Corpuscular Hgb Conc 30.5 g/dL (32.0-36.0); Mean Corpuscular Volume 99.7 fL (80.0-100.0); Mean Platelet Volume 10.6 fL (9.4-12.4); Monocytes # (auto) 1.65 K/uL (0.24-0.82); Monocytes % (auto) 13.6 %; Neutrophils # (auto) 9.19 K/uL (1.4-6.5); Neutrophils % (auto) 75.6 %; Platelet Count 223 K/uL (130-400); RDW Coefficient of Variation 15.7 % (11.5-14.5); RDW Standard Deviation 57.3 fL (36.4-46.3); Red Blood Count 3.03 M/uL (4.63-6.08); White Blood Count 12.17 K/ul (4.8-10.8)
[2021-12-26] MEDS: CARBOHYDRATES FOR HYPOGLYCEMIA PO PRN (08:00)
[2021-12-26] MEDS: TAMSULOSIN HCL 0.4 MG CAP PO SCH (08:03)
[2021-12-26] MEDS: FUROSEMIDE 80 MG TAB PO SCH ×3 (08:03→19:11)
[2021-12-26] MEDS: NEPHROCAPS PO SCH (08:03)
[2021-12-26] MEDS: DOCUSATE SODIUM 100 MG CAP PO SCH ×2 (08:04→20:40)
[2021-12-26] MEDS: amLODIPine BESYLATE 5 MG TAB PO SCH (08:04)
[2021-12-26] MEDS: CYANOCOBALAMIN (B-12) 500 MCG TABLET PO SCH (08:04)
[2021-12-26] MEDS: AMIODARONE 200 MG TAB PO SCH (08:04)
[2021-12-26] MEDS: SEVELAMER HCL 800 MG TABLET PO SCH ×4 (08:04→19:11)
[2021-12-26] MEDS: DOCUSATE SODIUM/SENNA 50/8.6MG TAB PO SCH ×2 (08:04→20:39)
[2021-12-26] MEDS: APIXABAN 5 MG TABLET PO SCH ×2 (08:05→20:39)
[2021-12-26 08:12] LABS: Alanine Aminotransferase < 3 U/L (7-52); Albumin Globulin Ratio 0.9 (0.9-2); Albumin Level 3.3 gm/dl (3.4-5.0); Alkaline Phosphatase 37 U/L (34-104); Anion Gap 9 (3-11); Aspartate Aminotransferase 20 U/L (13-39); BUN Creatinine Ratio 4.8 (10-20); Bilirubin,Total 0.3 mg/dl (0.2-1.0); Blood Urea Nitrogen 33 mg/dl (6-23); Calcium 8.6 mg/dl (8.5-10.1); Carbon Dioxide 29 mmol/L (21-32); Chloride 96 mmol/L (98-107); Creatinine Clr Calc Pharmacy 13.6 ml/min; Est GFR (African American) 8.5 ml/min; Est GFR (Non-African American) 7.4 ml/min; Globulin 3.6 gm/dl (2.5-4.0); Glucose 55 mg/dl (70-99(Fasting)); Magnesium 2.5 mg/dl (1.7-2.4); Potassium 4.2 mmol/L (3.5-5.1); Sodium 134 mmol/L (136-145); Total Protein 6.9 gm/dl (6.0-8.3)
[2021-12-26] MEDS: INSULIN ASPART PER UNIT SC SCH ×4 (08:44→20:40)
[2021-12-26] MEDS: ROSUVASTATIN CALCIUM 10 MG TAB PO SCH (08:52)
[2021-12-26] MEDS: CLOPIDOGREL BISULFATE 75 MG TAB PO SCH (08:53)
[2021-12-26] MEDS: IRON SUCROSE 200 MG in 0.9 % SODIUM CHLORIDE 100 ML IV SCH (08:53)
[2021-12-26] MEDS: cloNIDine HCL 0.1 MG TAB PO SCH ×2 (08:53→20:36)
--- NOTE | 2021-12-26 10:23 | Nephrology Progress Note ---
Date of Service December 26, 2021 Assessment & Plan (1) End-stage renal disease on hemodialysis: Plan: BP and volume status acceptable. Currently below outpatient EDW. Adequate clearance with HD. Electrolytes controlled. Next HD planned for Monday per TTS scheduled. AVF functioning appropriately. Medications appropriately dosed for IHD. Sevelamer QAC for hyperphosphatemia. Renal diet. (2) HTN (hypertension): Plan: BP acceptable. Consider holding amlodipine prior to next HD. Continue amlodipine, clonidine, and furosemide per home Rx. (3) Anemia due to chronic kidney disease: Plan: Venofer 200 mg IV daily provided. (4) Ankle fracture, right: Plan: ORIF right middle malleolar fracture on 02/21/2022. Possible DC to [facility] Monday or Monday. Plan ESRD on hemodialysis Monday, , Monday at [facility] [place]. Admitted after a fall at home and right ankle closed fracture and dislocation. Admission and Anticipated Discharge Date Admission Date: December 21, 2021 Subjective No acute events overnight. Tolerated HD reasonably well yesterday. Net UF 3.5 L. Noted hypogylcemic episode. Angel feels well this AM. At Angel's request yesterday, I updated his brother (Joon - [phone]). No complaints reported this AM. Review of Systems Review of Systems: All systems reviewed & are unremarkable except as noted in HPI & below Physical Exam Constitutional: well developed; no acute distress Eyes: + anicteric sclerae; no corneal abnormality ENMT: Mouth: no oral mucosal abnormality and oral mucous membranes not dry Neck: normal visual inspection and trachea midline Respiratory: normal respiratory effort Auscultation: lungs clear to auscultation bilaterally Cardiovascular: Rate/Rhythm: regular rate Heart Sounds: normal S1 and normal S2 Extremities: + edema (improved) and + AV fistula Musculoskeletal: Extremities: + lower leg abnormality; no cyanosis and no clubbing Skin: normal turgor; no lesions Neurologic: Motor/Sensory: no tremor and no asterixis Psychiatric: Orientation: alert and oriented x 3 Results & Data ([facility]) Vital Signs (Past 12 Hours) Vital Signs Temp Pulse Pulse Resp BP Pulse Ox O2 Del Method 12/26/21 08:00 Room Air 12/26/21 08:17 36.5 C 58 L 19 111/58 L 98 Nasal Cannula 12/26/21 04:45 36.7 C 61 18 110/61 98 Nasal Cannula 12/25/21 22:22 77 12/25/21 23:39 36.8 C 69 18 118/61 94 Nasal Cannula 12/25/21 23:58 Nasal Cannula O2 Flow Rate 12/26/21 08:00 12/26/21 08:17 2 12/26/21 04:45 3 12/25/21 22:22 12/25/21 23:39 3 12/25/21 23:58 2 Laboratory Results Laboratory Results - last 24 hr 12/25/21 12/25/21 12/25/21 15:47 17:10 17:21 WBC RBC Hgb Hct MCV MCH MCHC RDW Std Deviation RDW Coeff of Atif Plt Count MPV Immature Gran % (Auto) Neut % (Auto) Lymph % (Auto) [place] % (Auto) Eos % (Auto) Baso % (Auto) Neut # (Auto) Lymph # (Auto) [place] # (Auto) Eos # (Auto) Baso # (Auto) Immature Gran # (Auto) Sodium Potassium Chloride Carbon Dioxide Anion Gap BUN Creatinine Est Cr Clr Drug Dosing Est GFR ( Amer) Est GFR (Non-Af Amer) BUN/Creatinine Ratio Glucose POC Glucose 76 66 L* 79 Calcium Magnesium Total Bilirubin AST ALT Alkaline Phosphatase Total Protein Albumin Globulin Albumin/Globulin Ratio 12/25/21 12/25/21 12/25/21 17:29 17:39 18:12 WBC RBC Hgb Hct MCV MCH MCHC RDW Std Deviation RDW Coeff of Atif Plt Count MPV Immature Gran % (Auto) Neut % (Auto) Lymph % (Auto) [place] % (Auto) Eos % (Auto) Baso % (Auto) Neut # (Auto) Lymph # (Auto) [place] # (Auto) Eos # (Auto) Baso # (Auto) Immature Gran # (Auto) Sodium Potassium Chloride Carbon Dioxide Anion Gap BUN Creatinine Est Cr Clr Drug Dosing Est GFR ( Amer) Est GFR (Non-Af Amer) BUN/Creatinine Ratio Glucose POC Glucose 86 118 H 88 Calcium Magnesium Total Bilirubin AST ALT Alkaline Phosphatase Total Protein Albumin Globulin Albumin/Globulin Ratio 12/25/21 12/25/21 12/25/21 18:29 19:31 20:28 WBC RBC Hgb Hct MCV MCH MCHC RDW Std Deviation RDW Coeff of Atif Plt Count MPV Immature Gran % (Auto) Neut % (Auto) Lymph % (Auto) [place] % (Auto) Eos % (Auto) Baso % (Auto) Neut # (Auto) Lymph # (Auto) [place] # (Auto) Eos # (Auto) Baso # (Auto) Immature Gran # (Auto) Sodium Potassium Chloride Carbon Dioxide Anion Gap BUN Creatinine Est Cr Clr Drug Dosing Est GFR ( Amer) Est GFR (Non-Af Amer) BUN/Creatinine Ratio Glucose POC Glucose 212 H 167 H 138 H Calcium Magnesium Total Bilirubin AST ALT Alkaline Phosphatase Total Protein Albumin Globulin Albumin/Globulin Ratio 12/26/21 12/26/21 12/26/21 06:52 06:52 07:53 WBC 12.17 H RBC 3.03 L Hgb 9.2 L Hct 30.2 L MCV 99.7 MCH 30.4 MCHC 30.5 L RDW Std Deviation 57.3 H RDW Coeff of Atif 15.7 H Plt Count 223 MPV 10.6 Immature Gran % (Auto) 0.7 Neut % (Auto) 75.6 Lymph % (Auto) 8.1 [place] % (Auto) 13.6 Eos % (Auto) 1.6 Baso % (Auto) 0.4 Neut # (Auto) 9.19 H Lymph # (Auto) 0.99 L [place] # (Auto) 1.65 H Eos # (Auto) 0.20 Baso # (Auto) 0.05 Immature Gran # (Auto) 0.09 H Sodium 134 L Potassium 4.2 Chloride 96 L Carbon Dioxide 29 Anion Gap 9 BUN 33 H Creatinine 6.92 H* Est Cr Clr Drug Dosing 13.6 Est GFR ( Amer) 8.5 Est GFR (Non-Af Amer) 7.4 BUN/Creatinine Ratio 4.8 L Glucose 55 L POC Glucose 54 L* Calcium 8.6 Magnesium 2.5 H Total Bilirubin 0.3 AST 20 ALT < 3 L Alkaline Phosphatase 37 Total Protein 6.9 Albumin 3.3 L Globulin 3.6 Albumin/Globulin Ratio 0.9 12/26/21 12/26/21 12/26/21 07:54 08:18 08:19 WBC RBC Hgb Hct MCV MCH MCHC RDW Std Deviation RDW Coeff of Atif Plt Count MPV Immature Gran % (Auto) Neut % (Auto) Lymph % (Auto) [place] % (Auto) Eos % (Auto) Baso % (Auto) Neut # (Auto) Lymph # (Auto) [place] # (Auto) Eos # (Auto) Baso # (Auto) Immature Gran # (Auto) Sodium Potassium Chloride Carbon Dioxide Anion Gap BUN Creatinine Est Cr Clr Drug Dosing Est GFR ( Amer) Est GFR (Non-Af Amer) BUN/Creatinine Ratio Glucose POC Glucose 54 L* 47 L* 104 H Calcium Magnesium Total Bilirubin AST ALT Alkaline Phosphatase Total Protein Albumin Globulin Albumin/Globulin Ratio PG Care Time/CCT Total # of Minutes Spent Total Time Spent with Patient: Total time spent is greater than 50% in coordination of care (as documented) at patient's floor/unit and/or counseling patient: Coding Level of Care Code 12312 Subseq Hosp Care Lvl 3 Diagnoses End-stage renal disease on hemodialysis N18.6; Z99.2 HTN (hypertension) I10 Hypertension type: unspecified Anemia due to chronic kidney disease N18.9; D63.1 Ankle fracture, right S82.891A (1) HTN (hypertension) Hypertension type: unspecified Qualified Code(s): I10 - Essential (primary) hypertension
[2021-12-26] MEDS ORDERED: SIMETHICONE 80 MG CHEW PO PRN (11:16)
[2021-12-26] MEDS ORDERED: POLYETHYLENE (MIRALAX) 17 GM PACK PO PRN (11:17)
--- NOTE | 2021-12-26 11:37 | Hospitalist Progress Note ---
Date of Service December 26, 2021 Assessment & Plan (1) Closed dislocation of right ankle: Plan: Due to mechanical fall slipping on wet ground and reportedly bending his right foot back (reports has been dislocated for years in the past) Set in ER Xray with Mildly improved alignment of the acute right ankle fracture status post reduction and casting with persistent displacement and subluxation as above. CT Right Lower Ext w/ Acute comminuted mildly displaced fractures of the medial and posterior malleoli of the right tibia, as described above. Fracture alignment similar to post reduction radiographs but significantly improved since prereduction radiographs. Fracture also extends through the anterior distal right tibia. Significant improvement in tibiotalar joint alignment from prereduction radiographs. Ankle and foot soft tissue swelling. No soft tissue gas. CXR no acute process -- on 2-4L NC intermittently, and wears oxygen as needed at home Ortho consulted S/p Open Reduction Internal Fixation Right Medial Malleolus Fracture(Right) - Carmelo Chandler DO. EBL 15cc. on 12/22 Hgb 10.9--> 9.5--> 9.2, acute blood loss anemia Improving, post-op care as per Ortho f/u with Ortho in office after discharge Pain control-reduced dose of oxycodone due to overdose -continue antiemetics prn Bowel regimen-continue bisacodyl OR as needed, add Miralax, continue senna/docusate PT/OT-awaiting rehab placement (2) Acute metabolic encephalopathy: Plan: Secondary to hypoglycemia and opioid overdose Reduced doses of oxycodone and received one dose narcan evening of 12/25 Now resolved Treated hypoglycemia (3) Diabetes mellitus type 2 in obese: Plan: A1c was 7.8%. Had a significant hypoglycemic event on the evening of 12/25 with blood sugar in the 60s, was given oral glucose and then later an amp of D50 as he continued to be lethargic and felt very lightheaded-opioid overdose also contributing Hypoglycemic again AM of 12/26 despite receiving no insulin since day prior continue to hold home Lantus 50 units twice daily Loosened NovoLog correction factor up to 35, RONNI high end of range 150, and get rid of carb ratio Follow closely (4) Fall: Plan: Mechanical in nature on wet floor. - PT/OT following surgery - Restrictions as above (5) CAD (coronary artery disease): Plan: S/p CABG. held Plavix for surgery -has since been resumed Not on BB given hx syncope/pauses previously hospitalized and seen by Dr Khoury (was on carvedilol). Remains on amiodarone for hx afib (pre-op EKG w/o afib currently) No CP, noted SOB is his anginal equivalent EKG w/ CP (6) End-stage renal disease on hemodialysis: Plan: Follows with [facility]. Normal HD days are T-Th-Sat. Wt was 7kg above dry weight and patient tends to have 6-7kg weight gain in between HD sessions reported Nephro consulted Continue HD MWF Remains on lasix 80mg BID Iron studies checked --> iron low 14, TIBC low, trans %sat 6. IV Venofer ordered x 5 doses B12 borderline and started supplementation (7) HTN (hypertension): Plan: BP stable Continues on amlodipine, clonidine, lasix -- held prior to HD Monitor (8) Paroxysmal atrial flutter: Plan: remains in NSR here on tele have since restarted Eliquis -continued on home amiodarone Monitor on monitored bed post-operatively -- no evidence for afib Unable to tolerate BB due to pauses reported previously (9) BPH (benign prostatic hyperplasia): Plan: Continues to require straight cath once daily usually in the evening Continue home flomax, consider increased dose but often has hypotension with dialysis (10) Anemia: Plan: Acute on chronic Venofer IV per nephrology (11) DVT prophylaxis: Plan: SCDs,apixaban (12) Obesity: Plan: Morbid obesity with BMI 40.9 Plan Dispo- awaiting auth for SNF at [facility], probably not till at least Monday Admission and Anticipated Discharge Date Admission Date: December 21, 2021 Subjective Pt hypoglycemic again this AM but not symptomatic. He is irritated that his glucose is too low and blames us for giving him too much insulin but has not had any insulin since yesterday.. Has abd distension and bloating and has not moved bowels since 12/24 and that time wasn't much. Mental status much improved today since receiving narcan last night and reducing amount of oxycodone Pain in right leg and ankle currently 12/22 Tele with SR, 1st degree AV block, rates 60-70s Review of Systems Review of Systems: All systems reviewed & are unremarkable except as noted in HPI & below Physical Exam Constitutional: WD/WN, vitals as above + obese Eyes: + anicteric sclerae Neck: trachea midline, no thyromegaly Respiratory: normal respiratory effort, lungs clear to auscultation Cardiovascular: RRR, no murmur, no edema Chest (Breasts): Chest: normal inspection of chest Gastrointestinal (Abdomen): normal bowel sounds, soft, nontender, no hepatosplenomegaly Musculoskeletal: Extremities: + extremities abnormal to inspection (right leg in splint and SUZANNE wrap,toes nvi), no cyanosis and no clubbing Skin: no rashes, warm and dry Neurologic: moves all extremities and awake; no focal motor deficits Psychiatric: A+Ox3, euthymic affect Lymphatic: no lymphedema Results & Data Results & Data ([facility]) Vital Signs (Past 12 Hours) Vital Signs Temp Pulse Resp BP Pulse Ox O2 Del Method O2 Flow Rate 12/26/21 08:00 Room Air 12/26/21 08:17 36.5 C 58 L 19 111/58 L 98 Nasal Cannula 2 12/26/21 04:45 36.7 C 61 18 110/61 98 Nasal Cannula 3 12/25/21 23:39 36.8 C 69 18 118/61 94 Nasal Cannula 3 12/25/21 23:58 Nasal Cannula 2 Laboratory Results 12/26/21 12/26/21 12/26/21 Range/Units 11:29 08:19 08:18 WBC (4.8-10.8) K/ul RBC (4.63-6.08) M/uL Hgb (14.0-18.0) g/dl Hct (40.1-51.0) % MCV (80.0-100.0) fL MCH (25.0-34.0) pg MCHC (32.0-36.0) g/dL RDW Std Deviation (36.4-46.3) fL RDW Coeff of Atif (11.5-14.5) % Plt Count (130-400) K/uL MPV (9.4-12.4) fL Immature Gran % (Auto) % Neut % (Auto) % Lymph % (Auto) % [place] % (Auto) % Eos % (Auto) % Baso % (Auto) % Neut # (Auto) (1.4-6.5) K/uL Lymph # (Auto) (1.2-3.4) K/uL [place] # (Auto) (0.24-0.82) K/uL Eos # (Auto) (0-0.50) K/uL Baso # (Auto) (0-0.2) K/uL Immature Gran # (Auto) (0.00-0.02) K/uL Sodium (136-145) mmol/L Potassium (3.5-5.1) mmol/L Chloride (98-107) mmol/L Carbon Dioxide (21-32) mmol/L Anion Gap (3-11) BUN (6-23) mg/dl Creatinine (0.6-1.4) mg/dl Est Cr Clr Drug Dosing ml/min Est GFR ( Amer) ml/min Est GFR (Non-Af Amer) ml/min BUN/Creatinine Ratio (10-20) Glucose (70-99(Fasting)) mg/dl POC Glucose 103 H 104 H 47 L* (70-99) mg/dl Calcium (8.5-10.1) mg/dl Magnesium (1.7-2.4) mg/dl Total Bilirubin (0.2-1.0) mg/dl AST (13-39) U/L ALT (7-52) U/L Alkaline Phosphatase (34-104) U/L Total Protein (6.0-8.3) gm/dl Albumin (3.4-5.0) gm/dl Globulin (2.5-4.0) gm/dl Albumin/Globulin Ratio (0.9-2) 12/26/21 12/26/21 12/26/21 Range/Units 07:54 07:53 06:52 WBC (4.8-10.8) K/ul RBC (4.63-6.08) M/uL Hgb (14.0-18.0) g/dl Hct (40.1-51.0) % MCV (80.0-100.0) fL MCH (25.0-34.0) pg MCHC (32.0-36.0) g/dL RDW Std Deviation (36.4-46.3) fL RDW Coeff of Atif (11.5-14.5) % Plt Count (130-400) K/uL MPV (9.4-12.4) fL Immature Gran % (Auto) % Neut % (Auto) % Lymph % (Auto) % [place] % (Auto) % Eos % (Auto) % Baso % (Auto) % Neut # (Auto) (1.4-6.5) K/uL Lymph # (Auto) (1.2-3.4) K/uL [place] # (Auto) (0.24-0.82) K/uL Eos # (Auto) (0-0.50) K/uL Baso # (Auto) (0-0.2) K/uL Immature Gran # (Auto) (0.00-0.02) K/uL Sodium 134 L (136-145) mmol/L Potassium 4.2 (3.5-5.1) mmol/L Chloride 96 L (98-107) mmol/L Carbon Dioxide 29 (21-32) mmol/L Anion Gap 9 (3-11) BUN 33 H (6-23) mg/dl Creatinine 6.92 H* (0.6-1.4) mg/dl Est Cr Clr Drug Dosing 13.6 ml/min Est GFR ( Amer) 8.5 ml/min Est GFR (Non-Af Amer) 7.4 ml/min BUN/Creatinine Ratio 4.8 L (10-20) Glucose 55 L (70-99(Fasting)) mg/dl POC Glucose 54 L* 54 L* (70-99) mg/dl Calcium 8.6 (8.5-10.1) mg/dl Magnesium 2.5 H (1.7-2.4) mg/dl Total Bilirubin 0.3 (0.2-1.0) mg/dl AST 20 (13-39) U/L ALT < 3 L (7-52) U/L Alkaline Phosphatase 37 (34-104) U/L Total Protein 6.9 (6.0-8.3) gm/dl Albumin 3.3 L (3.4-5.0) gm/dl Globulin 3.6 (2.5-4.0) gm/dl Albumin/Globulin Ratio 0.9 (0.9-2) 12/26/21 12/25/21 12/25/21 Range/Units 06:52 20:28 19:31 WBC 12.17 H (4.8-10.8) K/ul RBC 3.03 L (4.63-6.08) M/uL Hgb 9.2 L (14.0-18.0) g/dl Hct 30.2 L (40.1-51.0) % MCV 99.7 (80.0-100.0) fL MCH 30.4 (25.0-34.0) pg MCHC 30.5 L (32.0-36.0) g/dL RDW Std Deviation 57.3 H (36.4-46.3) fL RDW Coeff of Atif 15.7 H (11.5-14.5) % Plt Count 223 (130-400) K/uL MPV 10.6 (9.4-12.4) fL Immature Gran % (Auto) 0.7 % Neut % (Auto) 75.6 % Lymph % (Auto) 8.1 % [place] % (Auto) 13.6 % Eos % (Auto) 1.6 % Baso % (Auto) 0.4 % Neut # (Auto) 9.19 H (1.4-6.5) K/uL Lymph # (Auto) 0.99 L (1.2-3.4) K/uL [place] # (Auto) 1.65 H (0.24-0.82) K/uL Eos # (Auto) 0.20 (0-0.50) K/uL Baso # (Auto) 0.05 (0-0.2) K/uL Immature Gran # (Auto) 0.09 H (0.00-0.02) K/uL Sodium (136-145) mmol/L Potassium (3.5-5.1) mmol/L Chloride (98-107) mmol/L Carbon Dioxide (21-32) mmol/L Anion Gap (3-11) BUN (6-23) mg/dl Creatinine (0.6-1.4) mg/dl Est Cr Clr Drug Dosing ml/min Est GFR ( Amer) ml/min Est GFR (Non-Af Amer) ml/min BUN/Creatinine Ratio (10-20) Glucose (70-99(Fasting)) mg/dl POC Glucose 138 H 167 H (70-99) mg/dl Calcium (8.5-10.1) mg/dl Magnesium (1.7-2.4) mg/dl Total Bilirubin (0.2-1.0) mg/dl AST (13-39) U/L ALT (7-52) U/L Alkaline Phosphatase (34-104) U/L Total Protein (6.0-8.3) gm/dl Albumin (3.4-5.0) gm/dl Globulin (2.5-4.0) gm/dl Albumin/Globulin Ratio (0.9-2) 12/25/21 12/25/21 12/25/21 Range/Units 18:29 18:12 17:39 WBC (4.8-10.8) K/ul RBC (4.63-6.08) M/uL Hgb (14.0-18.0) g/dl Hct (40.1-51.0) % MCV (80.0-100.0) fL MCH (25.0-34.0) pg MCHC (32.0-36.0) g/dL RDW Std Deviation (36.4-46.3) fL RDW Coeff of Atif (11.5-14.5) % Plt Count (130-400) K/uL MPV (9.4-12.4) fL Immature Gran % (Auto) % Neut % (Auto) % Lymph % (Auto) % [place] % (Auto) % Eos % (Auto) % Baso % (Auto) % Neut # (Auto) (1.4-6.5) K/uL Lymph # (Auto) (1.2-3.4) K/uL [place] # (Auto) (0.24-0.82) K/uL Eos # (Auto) (0-0.50) K/uL Baso # (Auto) (0-0.2) K/uL Immature Gran # (Auto) (0.00-0.02) K/uL Sodium (136-145) mmol/L Potassium (3.5-5.1) mmol/L Chloride (98-107) mmol/L Carbon Dioxide (21-32) mmol/L Anion Gap (3-11) BUN (6-23) mg/dl Creatinine (0.6-1.4) mg/dl Est Cr Clr Drug Dosing ml/min Est GFR ( Amer) ml/min Est GFR (Non-Af Amer) ml/min BUN/Creatinine Ratio (10-20) Glucose (70-99(Fasting)) mg/dl POC Glucose 212 H 88 118 H (70-99) mg/dl Calcium (8.5-10.1) mg/dl Magnesium (1.7-2.4) mg/dl Total Bilirubin (0.2-1.0) mg/dl AST (13-39) U/L ALT (7-52) U/L Alkaline Phosphatase (34-104) U/L Total Protein (6.0-8.3) gm/dl Albumin (3.4-5.0) gm/dl Globulin (2.5-4.0) gm/dl Albumin/Globulin Ratio (0.9-2) 12/25/21 12/25/21 12/25/21 Range/Units 17:29 17:21 17:10 WBC (4.8-10.8) K/ul RBC (4.63-6.08) M/uL Hgb (14.0-18.0) g/dl Hct (40.1-51.0) % MCV (80.0-100.0) fL MCH (25.0-34.0) pg MCHC (32.0-36.0) g/dL RDW Std Deviation (36.4-46.3) fL RDW Coeff of Atif (11.5-14.5) % Plt Count (130-400) K/uL MPV (9.4-12.4) fL Immature Gran % (Auto) % Neut % (Auto) % Lymph % (Auto) % [place] % (Auto) % Eos % (Auto) % Baso % (Auto) % Neut # (Auto) (1.4-6.5) K/uL Lymph # (Auto) (1.2-3.4) K/uL [place] # (Auto) (0.24-0.82) K/uL Eos # (Auto) (0-0.50) K/uL Baso # (Auto) (0-0.2) K/uL Immature Gran # (Auto) (0.00-0.02) K/uL Sodium (136-145) mmol/L Potassium (3.5-5.1) mmol/L Chloride (98-107) mmol/L Carbon Dioxide (21-32) mmol/L Anion Gap (3-11) BUN (6-23) mg/dl Creatinine (0.6-1.4) mg/dl Est Cr Clr Drug Dosing ml/min Est GFR ( Amer) ml/min Est GFR (Non-Af Amer) ml/min BUN/Creatinine Ratio (10-20) Glucose (70-99(Fasting)) mg/dl POC Glucose 86 79 66 L* (70-99) mg/dl Calcium (8.5-10.1) mg/dl Magnesium (1.7-2.4) mg/dl Total Bilirubin (0.2-1.0) mg/dl AST (13-39) U/L ALT (7-52) U/L Alkaline Phosphatase (34-104) U/L Total Protein (6.0-8.3) gm/dl Albumin (3.4-5.0) gm/dl Globulin (2.5-4.0) gm/dl Albumin/Globulin Ratio (0.9-2) 12/25/21 Range/Units 15:47 WBC (4.8-10.8) K/ul RBC (4.63-6.08) M/uL Hgb (14.0-18.0) g/dl Hct (40.1-51.0) % MCV (80.0-100.0) fL MCH (25.0-34.0) pg MCHC (32.0-36.0) g/dL RDW Std Deviation (36.4-46.3) fL RDW Coeff of Atif (11.5-14.5) % Plt Count (130-400) K/uL MPV (9.4-12.4) fL Immature Gran % (Auto) % Neut % (Auto) % Lymph % (Auto) % [place] % (Auto) % Eos % (Auto) % Baso % (Auto) % Neut # (Auto) (1.4-6.5) K/uL Lymph # (Auto) (1.2-3.4) K/uL [place] # (Auto) (0.24-0.82) K/uL Eos # (Auto) (0-0.50) K/uL Baso # (Auto) (0-0.2) K/uL Immature Gran # (Auto) (0.00-0.02) K/uL Sodium (136-145) mmol/L Potassium (3.5-5.1) mmol/L Chloride (98-107) mmol/L Carbon Dioxide (21-32) mmol/L Anion Gap (3-11) BUN (6-23) mg/dl Creatinine (0.6-1.4) mg/dl Est Cr Clr Drug Dosing ml/min Est GFR ( Amer) ml/min Est GFR (Non-Af Amer) ml/min BUN/Creatinine Ratio (10-20) Glucose (70-99(Fasting)) mg/dl POC Glucose 76 (70-99) mg/dl Calcium (8.5-10.1) mg/dl Magnesium (1.7-2.4) mg/dl Total Bilirubin (0.2-1.0) mg/dl AST (13-39) U/L ALT (7-52) U/L Alkaline Phosphatase (34-104) U/L Total Protein (6.0-8.3) gm/dl Albumin (3.4-5.0) gm/dl Globulin (2.5-4.0) gm/dl Albumin/Globulin Ratio (0.9-2) PG Care Time/CCT Total # of Minutes Spent Total Time Spent with Patient: Total time spent is greater than 50% in coordination of care (as documented) at patient's floor/unit and/or counseling patient: Coding Level of Care Code 31532 Subseq Hosp Care Lvl 2 Diagnoses Closed dislocation of right ankle S93.04XA Acute metabolic encephalopathy G93.41 Diabetes mellitus type 2 in obese E11.69; E66.9 Fall W19.XXXA CAD (coronary artery disease) I25.119 Associated angina: with unspecified angina Coronary Disease-Associated Artery/Lesion type: [place] artery [place] vs. transplanted heart: iroquois heart End-stage renal disease on hemodialysis N18.6; Z99.2 HTN (hypertension) I10 Hypertension type: unspecified Paroxysmal atrial flutter I48.92 BPH (benign prostatic hyperplasia) N40.0 Lower urinary tract symptom presence: symptoms absent Anemia D64.9 DVT prophylaxis Z29.9 Obesity E66.9 (1) BPH (benign prostatic hyperplasia) Lower urinary tract symptom presence: symptoms absent Qualified Code(s): N40.0 - Benign prostatic hyperplasia without lower urinary tract symptoms (2) CAD (coronary artery disease) Associated angina: with unspecified angina Coronary Disease-Associated Artery/Lesion type: [place] artery [place] vs. transplanted heart: iroquois heart Qualified Code(s): I25.119 - Atherosclerotic heart disease of [place]roqu[place] coronary artery with unspecified angina pectoris (3) HTN (hypertension) Hypertension type: unspecified Qualified Code(s): I10 - Essential (primary) hypertension
[2021-12-26] MEDS: ONDANSETRON INJ 2 MG/ML 2 ML VIAL IV PRN ×2 (17:10→23:07)
[2021-12-27] MEDS: SEVELAMER HCL 800 MG TABLET PO SCH ×3 (08:14→17:33)
[2021-12-27] MEDS: AMIODARONE 200 MG TAB PO SCH (08:14)
[2021-12-27] MEDS: ROSUVASTATIN CALCIUM 10 MG TAB PO SCH (08:16)
[2021-12-27] MEDS: amLODIPine BESYLATE 5 MG TAB PO SCH (08:16)
[2021-12-27] MEDS: TAMSULOSIN HCL 0.4 MG CAP PO SCH (08:16)
[2021-12-27] MEDS: DOCUSATE SODIUM/SENNA 50/8.6MG TAB PO SCH ×2 (08:16→20:11)
[2021-12-27] MEDS: FUROSEMIDE 80 MG TAB PO SCH ×2 (08:16→17:34)
[2021-12-27] MEDS: DOCUSATE SODIUM 100 MG CAP PO SCH ×2 (08:16→20:11)
[2021-12-27] MEDS: NEPHROCAPS PO SCH (08:16)
[2021-12-27] MEDS: CLOPIDOGREL BISULFATE 75 MG TAB PO SCH (08:16)
[2021-12-27] MEDS: APIXABAN 5 MG TABLET PO SCH ×2 (08:16→20:12)
[2021-12-27] MEDS: CYANOCOBALAMIN (B-12) 500 MCG TABLET PO SCH (08:17)
[2021-12-27] MEDS: INSULIN ASPART PER UNIT SC SCH ×4 (08:25→23:22)
[2021-12-27] MEDS: IRON SUCROSE 200 MG in 0.9 % SODIUM CHLORIDE 100 ML IV SCH (08:25)
[2021-12-27] MEDS: oxyCODONE HCL IR 5 MG TAB (IMMEDIATE RELEASE) PO PRN ×2 (08:26→20:12)
[2021-12-27] MEDS: cloNIDine HCL 0.1 MG TAB PO SCH ×2 (08:28→20:12)
--- NOTE | 2021-12-27 09:22 | Nephrology Progress Note ---
Date of Service December 27, 2021 Assessment & Plan (1) End-stage renal disease on hemodialysis: Plan: BP and volume status acceptable. No need for additional UF today. Next HD planned for tomorrow per TTS scheduled. AVF functioning appropriately. Medications appropriately dosed for IHD. Sevelamer QAC for hyperphosphatemia. Renal diet. (2) HTN (hypertension): Plan: BP acceptable. Consider holding amlodipine prior to next HD. Continue amlodipine, clonidine, and furosemide per home Rx. (3) Anemia due to chronic kidney disease: Plan: Venofer 200 mg IV daily provided. (4) Ankle fracture, right: Plan: ORIF right middle malleolar fracture on 02/21/2022. Possible DC to [facility] Monday or Monday. Plan ESRD on hemodialysis Monday, , Monday at [facility] [place]. Admitted after a fall at home and right ankle closed fracture and dislocation. Admission and Anticipated Discharge Date Admission Date: December 21, 2021 Subjective No acute events overnight. No complaints this AM. Review of Systems Review of Systems: All systems reviewed & are unremarkable except as noted in HPI & below Physical Exam Constitutional: well developed; no acute distress Eyes: + anicteric sclerae; no corneal abnormality ENMT: Mouth: no oral mucosal abnormality and oral mucous membranes not dry Neck: normal visual inspection and trachea midline Respiratory: normal respiratory effort Auscultation: lungs clear to auscultation bilaterally Cardiovascular: Rate/Rhythm: regular rate Heart Sounds: normal S1 and normal S2 Extremities: + AV fistula; no edema Musculoskeletal: Extremities: + lower leg abnormality; no cyanosis and no clubbing Skin: normal turgor; no lesions Neurologic: Motor/Sensory: no tremor and no asterixis Psychiatric: Orientation: alert and oriented x 3 Results & Data ([facility]) Vital Signs (Past 12 Hours) Vital Signs Temp Pulse Pulse Resp BP Pulse Ox O2 Del Method 12/27/21 08:00 36.5 C 65 18 141/61 H 91 Room Air 12/27/21 07:50 59 L 12/27/21 03:14 36.5 C 65 18 127/62 91 Nasal Cannula 12/26/21 23:23 36.7 C 64 18 124/61 91 Nasal Cannula 12/26/21 22:13 Nasal Cannula O2 Flow Rate 12/27/21 08:00 12/27/21 07:50 08/15/22 03:14 4 12/26/21 23:23 4 12/26/21 22:13 2 Laboratory Results Laboratory Results - last 24 hr 12/26/21 12/26/21 12/26/21 08:18 08:19 11:29 POC Glucose 47 L* 104 H 103 H 12/26/21 12/26/21 12/27/21 16:39 20:13 07:53 POC Glucose 163 H 87 92 PG Care Time/CCT Total # of Minutes Spent Total Time Spent with Patient: Total time spent is greater than 50% in coordination of care (as documented) at patient's floor/unit and/or counseling patient: Coding Level of Care Code 56704 Subseq Hosp Care Lvl 3 Diagnoses End-stage renal disease on hemodialysis N18.6; Z99.2 HTN (hypertension) I10 Hypertension type: unspecified Anemia due to chronic kidney disease N18.9; D63.1 Ankle fracture, right S82.891A (1) HTN (hypertension) Hypertension type: unspecified Qualified Code(s): I10 - Essential (primary) hypertension
[2021-12-27] MEDS: bisacodyL 10 MG SUPP PR PRN (11:23)
[2021-12-27] MEDS: ONDANSETRON INJ 2 MG/ML 2 ML VIAL IV PRN (14:57)
--- NOTE | 2021-12-27 21:51 | Hospitalist Progress Note ---
Date of Service December 27, 2021 Assessment & Plan (1) Closed dislocation of right ankle: Plan: Due to mechanical fall slipping on wet ground and reportedly bending his right foot back (reports has been dislocated for years in the past) Set in ER Xray with Mildly improved alignment of the acute right ankle fracture status post reduction and casting with persistent displacement and subluxation as above. CT Right Lower Ext w/ Acute comminuted mildly displaced fractures of the medial and posterior malleoli of the right tibia, as described above. Fracture alignment similar to post reduction radiographs but significantly improved since prereduction radiographs. Fracture also extends through the anterior distal right tibia. Significant improvement in tibiotalar joint alignment from prereduction radiographs. Ankle and foot soft tissue swelling. No soft tissue gas. CXR no acute process -- on 2-4L NC intermittently, and wears oxygen as needed at home Ortho consulted S/p Open Reduction Internal Fixation Right Medial Malleolus Fracture(Right) - Carmelo Chandler DO. EBL 15cc. on 12/22 Hgb 10.9--> 9.5--> 9.2, acute blood loss anemia Improving, post-op care as per Ortho f/u with Ortho in office after discharge Pain control-reduced dose of oxycodone due to overdose requiring Narcan administration on 12/25 -continue antiemetics prn Still with very minimal bowel movements and ongoing nausea but continues to eat food-continue aggressive bowel regimen-give another dose of bisacodyl WI now, continue Miralax, continue senna/docusate twice a day PT/OT-awaiting rehab placement (2) Acute metabolic encephalopathy: Plan: Secondary to hypoglycemia and opioid overdose Reduced doses of oxycodone and received one dose narcan evening of 12/25 Now resolved Treated hypoglycemia (3) Diabetes mellitus type 2 in obese: Plan: A1c was 7.8%. Had a significant hypoglycemic event on the evening of 12/25 with blood sugar in the 60s, was given oral glucose and then later an amp of D50 as he continued to be lethargic and felt very lightheaded-opioid overdose also contributing Hypoglycemic again AM of 12/26 despite receiving no insulin since day prior Has only received 1 unit of NovoLog in the last 48 hours and blood sugars continue to remain in the low 100s His home dose is typically Lantus 50 units twice a day along with NovoLog -Continue to hold home Lantus 50 units twice daily -Continue loosened NovoLog correction factor up to 35, RONNI high end of range 150, and got rid of carb ratio Follow closely, but certainly will not need nearly as much insulin upon discharge as his home regimen says that he is on (4) Constipation: Plan: Severe, with some associated nausea, oxycodone is contributing This is also contributing to his urinary retention -Give bisacodyl WI x1 today and daily as needed -Continue MiraLAX, senna/docusate Continue to monitor (5) Fall: Plan: Mechanical in nature on wet floor. - PT/OT following surgery - Restrictions as above (6) CAD (coronary artery disease): Plan: S/p CABG. Continue Plavix Not on BB given hx syncope/pauses previously hospitalized and seen by Dr Khoury (was on carvedilol). Remains on amiodarone for hx afib (7) End-stage renal disease on hemodialysis: Plan: Follows with [facility]. Normal HD days are T-Th-Sat. Wt was 7kg above dry weight and patient tends to have 6-7kg weight gain in between HD sessions reported Nephro consulted Continue HD MWF Remains on lasix 80mg BID Iron studies checked --> iron low 14, TIBC low, trans %sat 6. IV Venofer ordered x 5 doses-completed B12 borderline and started supplementation (8) HTN (hypertension): Plan: BP stable Continues on amlodipine, clonidine, lasix -- held prior to HD Monitor (9) Paroxysmal atrial flutter: Plan: remains in NSR here on tele Continue Eliquis -continued on home amiodarone Unable to tolerate BB due to pauses reported previously (10) BPH (benign prostatic hyperplasia): Plan: Continues to require straight cath once daily usually in the evening Continue home flomax, consider increased dose but often has hypotension with dialysis (11) Anemia: Plan: Acute on chronic Venofer IV per nephrology (12) DVT prophylaxis: Plan: SCDs,apixaban (13) Obesity: Plan: Morbid obesity with BMI 40.9 Plan Dispo- awaiting auth for SNF Admission and Anticipated Discharge Date Admission Date: December 21, 2021 Subjective Patient reports still feeling some nausea but continues to eat all his meals. Still feels very bloated and has not moved his bowels. Has not received any insulin in 48 hours and blood sugars are still borderline low. Telemetry with normal sinus rhythm with rates in the 60s Review of Systems Review of Systems: All systems reviewed & are unremarkable except as noted in HPI & below Physical Exam Constitutional: WD/WN, vitals as above + obese Eyes: + anicteric sclerae Neck: trachea midline, no thyromegaly Respiratory: normal respiratory effort, lungs clear to auscultation Cardiovascular: RRR, no murmur, no edema Chest (Breasts): Chest: normal inspection of chest Gastrointestinal (Abdomen): Inspection/Auscultation: abdomen normal to inspection and + abdomen distended (Mild) Percussion/Palpation: + hernia (Large and RLQ, difficult to reduce but nontender); abdomen nontender Musculoskeletal: Extremities: + extremities abnormal to inspection (right leg in splint and SUZANNE wrap,toes nvi), no cyanosis and no clubbing Skin: no rashes, warm and dry Neurologic: moves all extremities and awake; no focal motor deficits Psychiatric: A+Ox3, euthymic affect Results & Data Results & Data ([facility]) Vital Signs (Past 12 Hours) Vital Signs Temp Pulse Pulse Resp BP Pulse Ox O2 Del Method 12/27/21 20:00 36.4 C L 57 L 18 141/66 H 96 Nasal Cannula 12/27/21 16:00 64 12/27/21 15:54 36.3 C L 59 L 19 132/57 L 97 Nasal Cannula 12/27/21 15:28 Nasal Cannula 12/27/21 15:28 60 12/27/21 12:00 36.6 C 56 L 18 131/64 97 Nasal Cannula O2 Flow Rate 12/27/21 20:00 4 12/27/21 16:00 12/27/21 15:54 4 12/27/21 15:28 2 12/27/21 15:28 12/27/21 12:00 2 Laboratory Results 12/27/21 12/27/21 12/27/21 Range/Units 20:32 16:29 12:02 POC Glucose 123 H 158 H 165 H (70-99) mg/dl 12/27/21 Range/Units 07:53 POC Glucose 92 (70-99) mg/dl PG Care Time/CCT Total # of Minutes Spent Total Time Spent with Patient: Total time spent is greater than 50% in coordination of care (as documented) at patient's floor/unit and/or counseling patient: Coding Level of Care Code 74044 Subseq Hosp Care Lvl 2 Diagnoses Closed dislocation of right ankle S93.04XA Acute metabolic encephalopathy G93.41 Diabetes mellitus type 2 in obese E11.69; E66.9 Constipation K59.00 Fall W19.XXXA CAD (coronary artery disease) I25.119 Associated angina: with unspecified angina Coronary Disease-Associated Artery/Lesion type: [place] artery [place] vs. transplanted heart: [place] heart End-stage renal disease on hemodialysis N18.6; Z99.2 HTN (hypertension) I10 Hypertension type: unspecified Paroxysmal atrial flutter I48.92 BPH (benign prostatic hyperplasia) N40.0 Lower urinary tract symptom presence: symptoms absent Anemia D64.9 DVT prophylaxis Z29.9 Obesity E66.9 (1) BPH (benign prostatic hyperplasia) Lower urinary tract symptom presence: symptoms absent Qualified Code(s): N40.0 - Benign prostatic hyperplasia without lower urinary tract symptoms (2) CAD (coronary artery disease) Associated angina: with unspecified angina Coronary Disease-Associated Artery/Lesion type: [place] artery [place] vs. transplanted heart: [place] heart Qualified Code(s): I25.119 - Atherosclerotic heart disease of [place] coronary artery with unspecified angina pectoris (3) HTN (hypertension) Hypertension type: unspecified Qualified Code(s): I10 - Essential (primary) hypertension
[2021-12-28] MEDS ORDERED: SODIUM CHLORIDE 0.9% 1000ML 1,000 ML IV PRN (07:00)
[2021-12-28 08:23] LABS: Hematocrit (blood only) 30.8 % (40.1-51.0); Hemoglobin 9.5 g/dl (14.0-18.0)
[2021-12-28] MEDS: AMIODARONE 200 MG TAB PO SCH (08:40)
[2021-12-28] MEDS: NEPHROCAPS PO SCH (08:40)
[2021-12-28] MEDS: DOCUSATE SODIUM 100 MG CAP PO SCH ×2 (08:40→19:52)
[2021-12-28] MEDS: APIXABAN 5 MG TABLET PO SCH ×2 (08:40→19:52)
[2021-12-28] MEDS: CLOPIDOGREL BISULFATE 75 MG TAB PO SCH (08:40)
[2021-12-28] MEDS: CYANOCOBALAMIN (B-12) 500 MCG TABLET PO SCH (08:40)
[2021-12-28] MEDS: SEVELAMER HCL 800 MG TABLET PO SCH ×3 (08:40→18:14)
[2021-12-28] MEDS: DOCUSATE SODIUM/SENNA 50/8.6MG TAB PO SCH ×2 (08:40→19:53)
[2021-12-28] MEDS: ROSUVASTATIN CALCIUM 10 MG TAB PO SCH (08:41)
[2021-12-28] MEDS: amLODIPine BESYLATE 5 MG TAB PO SCH (08:41)
[2021-12-28] MEDS: cloNIDine HCL 0.1 MG TAB PO SCH ×2 (08:41→19:56)
[2021-12-28] MEDS: TAMSULOSIN HCL 0.4 MG CAP PO SCH (08:41)
[2021-12-28] MEDS: FUROSEMIDE 80 MG TAB PO SCH ×2 (08:41→18:15)
[2021-12-28] MEDS: INSULIN ASPART PER UNIT SC SCH ×4 (08:44→20:35)
[2021-12-28] MEDS ORDERED: EPOETIN ALFA 20,000 UNITS/ML VIAL IV SCH (09:00)
[2021-12-28 09:05] LABS: Albumin Level 3.2 gm/dl (3.4-5.0); BUN Creatinine Ratio 6.1 (10-20); Calcium 8.6 mg/dl (8.5-10.1); Creatinine Clr Calc Pharmacy 8.7 ml/min; Est GFR (Non-African American) 4.3 ml/min; Phosphorus 10.5 mg/dl (2.5-4.9); Potassium 4.6 mmol/L (3.5-5.1)
[2021-12-28] MEDS: oxyCODONE HCL IR 5 MG TAB (IMMEDIATE RELEASE) PO PRN ×3 (09:47→21:38)
--- NOTE | 2021-12-28 09:48 | Nephrology Progress Note ---
Date of Service December 28, 2021 Assessment & Plan (1) End-stage renal disease on hemodialysis: Plan: Orders for HD today entered into the EHR and reviewed with dialysis nurse. Rx for 4 hours today. UF goal ~3 L. Medications appropriately dosed for IHD. Sevelamer 3 tabs QAC for hyperphosphatemia. Low PO4 diet. (2) HTN (hypertension): Plan: BP acceptable. Volume status reasonably controlled. May hold amlodipine and clonidine prior to HD. Continue amlodipine, clonidine, and furosemide per home Rx. (3) Anemia due to chronic kidney disease: Plan: Venofer 200 mg IV daily x 5 doses completed. Epogen 94203 units with HD today. (4) Ankle fracture, right: Plan: ORIF right middle malleolar fracture on 02/21/2022. Discharge to [facility] when bed available anticipated. Admission and Anticipated Discharge Date Admission Date: December 21, 2021 Subjective No acute events overnight. Some nausea and constipation persist. Angel denies significant pain in his ankle. He reports some pain in his lower back and sacrum which improved with repositioning. Overall, he feels reasonably well. Review of Systems Review of Systems: All systems reviewed & are unremarkable except as noted in HPI & below Physical Exam Constitutional: well developed; no acute distress Eyes: + anicteric sclerae; no corneal abnormality ENMT: Mouth: no oral mucosal abnormality and oral mucous membranes not dry Neck: normal visual inspection and trachea midline Respiratory: normal respiratory effort Auscultation: lungs clear to auscultation bilaterally Cardiovascular: Rate/Rhythm: regular rate Heart Sounds: normal S1 and normal S2 Extremities: + AV fistula; no edema Musculoskeletal: Extremities: + lower leg abnormality; no cyanosis and no clubbing Skin: normal turgor; no lesions Neurologic: Motor/Sensory: no tremor and no asterixis Psychiatric: Orientation: alert and oriented x 3 Results & Data ([facility]) Vital Signs (Past 12 Hours) Vital Signs Temp Pulse Pulse Resp BP Pulse Ox O2 Del Method 12/28/21 08:01 61 12/28/21 07:36 36.6 C 62 18 138/60 91 Room Air 12/28/21 06:52 36.6 C 59 L 20 128/67 95 Nasal Cannula 12/27/21 22:15 56 L 12/28/21 04:00 36.7 C 57 L 20 136/63 91 Nasal Cannula 12/27/21 23:00 36.5 C 56 L 20 126/67 97 Nasal Cannula O2 Flow Rate 12/28/21 08:01 12/28/21 07:36 12/28/21 06:52 4 12/27/21 22:15 12/28/21 04:00 4 12/27/21 23:00 4 Laboratory Results Laboratory Results - last 24 hr 12/27/21 12/27/21 12/27/21 12:02 16:29 20:32 Hgb Hct Sodium Potassium Chloride Carbon Dioxide Anion Gap BUN Creatinine Est Cr Clr Drug Dosing Est GFR ( Amer) Est GFR (Non-Af Amer) BUN/Creatinine Ratio Glucose POC Glucose 165 H 158 H 123 H Calcium Phosphorus Albumin 12/28/21 12/28/21 12/28/21 07:29 07:50 07:50 Hgb 9.5 L Hct 30.8 L Sodium 131 L Potassium 4.6 Chloride 92 L Carbon Dioxide 24 Anion Gap 15 H BUN 66 H Creatinine 10.75 H* Est Cr Clr Drug Dosing 8.7 Est GFR ( Amer) 5.0 Est GFR (Non-Af Amer) 4.3 BUN/Creatinine Ratio 6.1 L Glucose 76 POC Glucose 72 Calcium 8.6 Phosphorus 10.5 H Albumin 3.2 L PG Care Time/CCT Total # of Minutes Spent Total Time Spent with Patient: Total time spent is greater than 50% in coordination of care (as documented) at patient's floor/unit and/or counseling patient: Coding Level of Care Code 45857 Subseq Hosp Care Lvl 3 Diagnoses End-stage renal disease on hemodialysis N18.6; Z99.2 HTN (hypertension) I10 Hypertension type: unspecified Anemia due to chronic kidney disease N18.9; D63.1 Ankle fracture, right S82.891A (1) HTN (hypertension) Hypertension type: unspecified Qualified Code(s): I10 - Essential (primary) hypertension
[2021-12-28] MEDS: ONDANSETRON INJ 2 MG/ML 2 ML VIAL IV PRN (15:46)
--- NOTE | 2021-12-28 18:18 | XRay Report ---
XR abdomen 2V w PA chest HISTORY: 71 years-old Male marked abd distension, umb hernia; eval SBO acute generalized abdominal p ain with distention and umbilical hernia COMPARISON: Chest radiograph 12/21/2021, CT abdomen pelvis 11/23/2021 TECHNIQUE: AP view of the chest with supine and upright views of the abdomen FINDINGS: Limited exam secondary to patient body habitus. Cardiomegaly with prior median sternotomy. Calcified hilar lymph nodes. Loop recorder device. No pneumothorax, large pleural effusion or overt pulmonary e eddie. There is unchanged blunting of the costophrenic angles. Chronic interstitial coarsening of the lung bases. No acute fracture identified. Degenerative changes of the shoulders, hips and spine. Heal ed chronic left-sided rib fractures. No pneumatosis or pneumoperitoneum. Nonobstructive bowel gas pattern. There is mild gaseous distentio n of the large bowel with moderate fecal retention. No urolith identified. Hepatomegaly. IMPRESSION: 1. Cardiomegaly without acute process of the chest. 2. Nonobstructive bowel gas pattern without pneumoperitoneum. 3. Moderate colonic fecal retention with mild gaseous distention of the colon. ACT 112: Negative or not required by law. The above report was generated using voice recognition software. It may contain grammatical, syntax o r spelling errors. Electronically signed by: Carmelo Dumont M.D. 12/28/2021 6:16 PM
[2021-12-28] MEDS ORDERED: MINERAL OIL ENEMA 133 ML BTL PR ONE (20:07)
--- NOTE | 2021-12-28 20:08 | Hospitalist Progress Note ---
Date of Service December 28, 2021 Assessment & Plan (1) Abdominal distension: Plan: severe urgent x-rays of abdomen with mod-severe constipation and impaction fleets mineral oil enema x 1 now if any worsening or persistent of symptoms consider CT a/p to r/o ileus, SBO, etc (2) Closed dislocation of right ankle: Plan: with medial malleolar fracture s/p Open Reduction Internal Fixation Right Medial Malleolus Fracture by Dr Chandler on 12/22/21 complicated by mild acute blood loss anemia but did not require PRBC infusion f/u with Ortho in office after discharge Non-weightbearing status - RLE needs rehab cont PT/OT (3) Ankle fracture, right: Plan: as above check 25-OH vit D level am (4) Acute metabolic encephalopathy: Plan: Secondary to hypoglycemia and opioid overdose Did require narcan evening of 12/25 altered MS resolved (5) Diabetes mellitus type 2 in obese: Plan: HbA1c 7.8%. Multiple episodes of lows while hospitalized Lantus home dose is 50 units twice a day along with NovoLog Continue to hold home Lantus 50 units twice daily Continue loosened NovoLog SSI BSGs remain acceptable and without lows but still even with low-normal readings at times; change the goal range to 120-160 (6) Constipation: Plan: see #1 above (7) Fall: Plan: prior to admission with resulting right ankle fracture with dislocation cont PT, OT will need rehab post-d/c (8) CAD (coronary artery disease): Plan: S/p CABG 2020. Continue Plavix Continue statin Not on BB given hx syncope/pauses (previously hospitalized and treated for such) Remains on amiodarone for PAF (9) End-stage renal disease on hemodialysis: Plan: [facility] [place] Nephrology assistance appreciated Normal HD days are T-Th-Sat. He has been getting HD M/W/F here. s/p HD today - 3.5 L UF. (10) HTN (hypertension): Plan: BP stable Continues on amlodipine, clonidine, lasix -- held prior to HD (11) Paroxysmal atrial flutter: Plan: Cont Eliquis Cont Amiodarone for rhythm control Check TFTs am due to amiodarone usage (12) BPH (benign prostatic hyperplasia): Plan: Continues to require straight cath once daily usually in the evening Continue flomax (13) Anemia: Plan: Acute on chronic Acute component 2nd to mild acute blood loss anemia chronic - 2nd to ESRD s/p IV venofer x 5 doses while here H/H stable today (14) DVT prophylaxis: Plan: Apixaban 5mg BID (15) Obesity: Plan: Morbid obesity- BMI 40.9 (16) Hyperphosphatemia: Plan: defer Rx to nephrology remains on sevelamer 2400mg TID w/ meals (17) Umbilical hernia: Plan: large checking x-rays today to r/o SBO Admission and Anticipated Discharge Date Admission Date: December 21, 2021 Subjective patient uncomfortable during the visit c/o abd bloating and fullness nausea - states he has chronic nausea, but much worse today than baseline unable to eat/drink today because of nausea & bloating last documented BM 12/27/21 he also states he usually has bloating in his abdomen but it is much worse than baseline denies any dyspnea Review of Systems Review of Systems: gen - no fever cv - no cp pulm - no dyspnea GI - vomiting, nausea, bloating, constipation musculo - pain in right ankle - ongoing Physical Exam Physical Exam: gen - looks uncomfortable, holding emesis bag, shifting const antly in bed, requesting to go out to the chair neck - no JVD mouth - MM dry heart - RRR, s1 s2 lungs - CTA b/l abd - marked distension, BS+ but decreased, large umbilical hernia present somewhat reducible, tympanic to percussion, no discrete tenderness ext - right ankle wrapped in large SUZANNE wraps/dressings; b/l foot pulses 1-2+ b/l vascular - AV fistula right arm Results & Data Results & Data ([facility]) Vital Signs (Past 12 Hours) Vital Signs Temp Pulse Pulse Pulse Resp BP BP 12/28/21 19:33 36.7 C 82 17 151/68 H 12/28/21 16:00 12/28/21 15:53 36.5 C 73 18 139/74 12/28/21 14:55 36.7 C 68 156/65 H 12/28/21 14:30 70 125/65 12/28/21 14:00 69 103/67 12/28/21 13:30 68 114/60 12/28/21 13:00 64 121/69 12/28/21 12:30 61 128/62 12/28/21 12:00 64 132/61 12/28/21 11:30 65 127/77 12/28/21 11:00 97 H 143/61 H 12/28/21 10:45 63 145/66 H 12/28/21 10:29 36.7 C 64 Pulse Ox O2 Del Method O2 Flow Rate 12/28/21 19:33 91 Nasal Cannula 3 12/28/21 16:00 Nasal Cannula 3 12/28/21 15:53 94 Nasal Cannula 3 12/28/21 14:55 12/28/21 14:30 12/28/21 14:00 12/28/21 13:30 12/28/21 13:00 12/28/21 12:30 12/28/21 12:00 12/28/21 11:30 12/28/21 11:00 12/28/21 10:45 12/28/21 10:29 Laboratory Results Laboratory Results - last 24 hr 12/27/21 12/28/21 12/28/21 20:32 07:29 07:50 Hgb 9.5 L Hct 30.8 L Sodium Potassium Chloride Carbon Dioxide Anion Gap BUN Creatinine Est Cr Clr Drug Dosing Est GFR ( Amer) Est GFR (Non-Af Amer) BUN/Creatinine Ratio Glucose POC Glucose 123 H 72 Calcium Phosphorus Albumin 12/28/21 12/28/21 12/28/21 07:50 13:54 16:23 Hgb Hct Sodium 131 L Potassium 4.6 Chloride 92 L Carbon Dioxide 24 Anion Gap 15 H BUN 66 H Creatinine 10.75 H* Est Cr Clr Drug Dosing 8.7 Est GFR ( Amer) 5.0 Est GFR (Non-Af Amer) 4.3 BUN/Creatinine Ratio 6.1 L Glucose 76 POC Glucose 91 121 H Calcium 8.6 Phosphorus 10.5 H Albumin 3.2 L Diagnostic Findings Chest/Abdomen X-ray 12/28/21 15:32 XR abdomen 2V w PA chest HISTORY: 71 years-old Male marked abd distension, umb hernia; eval SBO acute generalized abdominal pain with distention and umbilical hernia COMPARISON: Chest radiograph 12/21/2021, CT abdomen pelvis 11/23/2021 TECHNIQUE: AP view of the chest with supine and upright views of the abdomen FINDINGS: Limited exam secondary to patient body habitus. Cardiomegaly with prior median sternotomy. Calcified hilar lymph nodes. Loop recorder device. No pneumothorax, large pleural effusion or overt pulmonary edema. There is unchanged blunting of the costophrenic angles. Chronic interstitial coarsening of the lung bases. No acute fracture identified. Degenerative changes of the shoulders, hips and spine. Healed chronic left-sided rib fractures. No pneumatosis or pneumoperitoneum. Nonobstructive bowel gas pattern. There is mild gaseous distention of the large bowel with moderate fecal retention. No urolith identified. Hepatomegaly. IMPRESSION: 1. Cardiomegaly without acute process of the chest. 2. Nonobstructive bowel gas pattern without pneumoperitoneum. 3. Moderate colonic fecal retention with mild gaseous distention of the colon. ACT 112: Negative or not required by law. The above report was generated using voice recognition software. It may contain grammatical, syntax or spelling errors. Electronically signed by: Carmelo Dumont M.D. 12/28/2021 6:16 PM PG Care Time/CCT Total # of Minutes Spent Total Time Spent with Patient: Total time spent is greater than 50% in coordination of care (as documented) at patient's floor/unit and/or counseling patient: Coding Level of Care Code 44324 Subseq Hosp Care Lvl 3 Diagnoses Abdominal distension R14.0 Closed dislocation of right ankle S93.04XA Ankle fracture, right S82.891A Acute metabolic encephalopathy G93.41 Diabetes mellitus type 2 in obese E11.69; E66.9 Constipation K59.00 Fall W19.XXXA CAD (coronary artery disease) I25.119 Associated angina: with unspecified angina Coronary Disease-Associated Artery/Lesion type: [place] artery [place] vs. transplanted heart: [place] heart End-stage renal disease on hemodialysis N18.6; Z99.2 HTN (hypertension) I10 Hypertension type: unspecified Paroxysmal atrial flutter I48.92 BPH (benign prostatic hyperplasia) N40.0 Lower urinary tract symptom presence: symptoms absent Anemia D64.9 DVT prophylaxis Z29.9 Obesity E66.9 Hyperphosphatemia E83.39 Umbilical hernia K42.9 (1) BPH (benign prostatic hyperplasia) Lower urinary tract symptom presence: symptoms absent Qualified Code(s): N40.0 - Benign prostatic hyperplasia without lower urinary tract symptoms (2) CAD (coronary artery disease) Associated angina: with unspecified angina Coronary Disease-Associated Artery/Lesion type: [place] artery [place] vs. transplanted heart: [place] heart Qualified Code(s): I25.119 - Atherosclerotic heart disease of [place] coronary artery with unspecified angina pectoris (3) HTN (hypertension) Hypertension type: unspecified Qualified Code(s): I10 - Essential (primary) hypertension
[2021-12-29] MEDS: TAMSULOSIN HCL 0.4 MG CAP PO SCH (07:31)
[2021-12-29] MEDS: ROSUVASTATIN CALCIUM 10 MG TAB PO SCH (07:31)
[2021-12-29] MEDS: CYANOCOBALAMIN (B-12) 500 MCG TABLET PO SCH (07:31)
[2021-12-29] MEDS: amLODIPine BESYLATE 5 MG TAB PO SCH (07:32)
[2021-12-29] MEDS: FUROSEMIDE 80 MG TAB PO SCH ×2 (07:32→16:22)
[2021-12-29] MEDS: AMIODARONE 200 MG TAB PO SCH (07:32)
[2021-12-29] MEDS: NEPHROCAPS PO SCH (07:32)
[2021-12-29] MEDS: CLOPIDOGREL BISULFATE 75 MG TAB PO SCH (07:32)
[2021-12-29] MEDS: DOCUSATE SODIUM/SENNA 50/8.6MG TAB PO SCH ×2 (07:32→20:08)
[2021-12-29] MEDS: SEVELAMER HCL 800 MG TABLET PO SCH ×3 (07:32→16:22)
[2021-12-29] MEDS: DOCUSATE SODIUM 100 MG CAP PO SCH ×2 (07:33→20:08)
[2021-12-29] MEDS: APIXABAN 5 MG TABLET PO SCH ×2 (07:36→20:05)
[2021-12-29] MEDS: cloNIDine HCL 0.1 MG TAB PO SCH ×2 (07:36→20:25)
[2021-12-29] MEDS: INSULIN ASPART PER UNIT SC SCH ×4 (08:12→20:30)
[2021-12-29 08:46] LABS: Albumin Level 3.5 gm/dl (3.4-5.0); BUN Creatinine Ratio 6.1 (10-20); Creatinine Clr Calc Pharmacy 12.3 ml/min; Est GFR (African American) 7.6 ml/min; Est GFR (Non-African American) 6.5 ml/min; Phosphorus 7.2 mg/dl (2.5-4.9); Potassium 4.7 mmol/L (3.5-5.1)
--- NOTE | 2021-12-29 09:25 | Nephrology Progress Note ---
Date of Service December 29, 2021 Assessment & Plan (1) End-stage renal disease on hemodialysis: Plan: Completed HD yesterday without complications. Volume status controlled. BP acceptable. Adequate clearance. AVF functioning reasonably well. Medications appropriately dosed for IHD. Sevelamer 3 tabs QAC for hyperphosphatemia. Low PO4 diet. (2) HTN (hypertension): Plan: BP acceptable. Continue amlodipine, clonidine, and furosemide per home Rx. (3) Anemia due to chronic kidney disease: Plan: Venofer 200 mg IV daily x 5 doses completed. Epogen 20564 units provided with HD yesterday. (4) Ankle fracture, right: Plan: ORIF right middle malleolar fracture on 02/21/2022. Social work is working on placement in SNF for rehab post discharge. Admission and Anticipated Discharge Date Admission Date: December 21, 2021 Subjective No acute events overnight. Tolerated HD reasonably well yesterday. Unfortunately, Angel reports waking up with excruciating ankle pain this AM. No specific trigger. Pain located predominately on the medial side of the joint. He states that pain has been coming and going and he believes this may be related to how the ankle was positioned while sleeping last night. He has not slept well. He continues to struggle with discomfort in his lower back and abdomen. Able to move bowels but constipation persists. Angel is experiencing fullness in his right upper quadrant. He describes some tenderness in the abdomen and bloating. Review of Systems Review of Systems: All systems reviewed & are unremarkable except as noted in HPI & below Physical Exam Constitutional: well developed; no acute distress Eyes: + anicteric sclerae; no corneal abnormality ENMT: Mouth: no oral mucosal abnormality and oral mucous membranes not dry Neck: normal visual inspection and trachea midline Respiratory: normal respiratory effort Auscultation: lungs clear to auscultation bilaterally Cardiovascular: Rate/Rhythm: regular rate Heart Sounds: normal S1 and normal S2 Extremities: + AV fistula; no edema Gastrointestinal (Abdomen): Inspection/Auscultation: + abdomen distended and normal bowel sounds Percussion/Palpation: + hernia (large umbilical) and + tympanic to percussion Musculoskeletal: Extremities: + lower leg abnormality; no cyanosis and no clubbing Skin: normal turgor; no lesions Neurologic: Motor/Sensory: no tremor and no asterixis Psychiatric: Orientation: alert and oriented x 3 Results & Data ([facility]) Vital Signs (Past 12 Hours) Vital Signs Temp Pulse Pulse Resp BP Pulse Ox O2 Del Method 12/29/21 08:27 36.6 C 72 18 128/65 92 Room Air 12/29/21 08:22 Nasal Cannula 12/29/21 07:18 61 12/29/21 03:04 36.7 C 67 17 131/61 91 Room Air 12/28/21 22:54 36.7 C 66 18 155/73 H 96 Nasal Cannula 12/28/21 23:03 68 O2 Flow Rate 12/29/21 08:27 12/29/21 08:22 3 12/29/21 07:18 12/29/21 03:04 12/28/21 22:54 3 12/28/21 23:03 Laboratory Results Laboratory Results - last 24 hr 12/28/21 12/28/21 12/28/21 13:54 16:23 20:28 Sodium Potassium Chloride Carbon Dioxide Anion Gap BUN Creatinine Est Cr Clr Drug Dosing Est GFR ( Amer) Est GFR (Non-Af Amer) BUN/Creatinine Ratio Glucose POC Glucose 91 121 H 150 H Calcium Phosphorus Albumin 25-OH Vitamin D Total TSH 12/28/21 12/29/21 12/29/21 22:59 07:22 07:34 Sodium 132 L Potassium 4.7 Chloride 95 L Carbon Dioxide 25 Anion Gap 12 H BUN 47 H Creatinine 7.66 H* D Est Cr Clr Drug Dosing 12.3 Est GFR ( Amer) 7.6 Est GFR (Non-Af Amer) 6.5 BUN/Creatinine Ratio 6.1 L Glucose 122 H POC Glucose 134 H 118 H Calcium 9.0 Phosphorus 7.2 H Albumin 3.5 25-OH Vitamin D Total TSH 12/29/21 12/29/21 07:34 07:34 Sodium Potassium Chloride Carbon Dioxide Anion Gap BUN Creatinine Est Cr Clr Drug Dosing Est GFR ( Amer) Est GFR (Non-Af Amer) BUN/Creatinine Ratio Glucose POC Glucose Calcium Phosphorus Albumin 25-OH Vitamin D Total Pending TSH 2.090 PG Care Time/CCT Total # of Minutes Spent Total Time Spent with Patient: Total time spent is greater than 50% in coordination of care (as documented) at patient's floor/unit and/or counseling patient: Coding Level of Care Code 91575 Subseq Hosp Care Lvl 3 Diagnoses End-stage renal disease on hemodialysis N18.6; Z99.2 HTN (hypertension) I10 Hypertension type: unspecified Anemia due to chronic kidney disease N18.9; D63.1 Ankle fracture, right S82.891A (1) HTN (hypertension) Hypertension type: unspecified Qualified Code(s): I10 - Essential (primary) hypertension
[2021-12-29] MEDS ORDERED: bisacodyL 5 MG TABEC PO ONE (16:12)
[2021-12-29] MEDS: POLYETHYLENE (MIRALAX) 17 GM PACK PO SCH ×4 (16:22→21:39)
--- NOTE | 2021-12-29 18:24 | XRay Report ---
XR ankle RT 2V HISTORY: 71 years-old Male recent ORIF of ankle fx; pain ORIF of the right ankle COMPARISON: CT right ankle 12/22/2021 TECHNIQUE: 2 views the right ankle FINDINGS: Status post placement of a plate and screw fixation hardware fixating the acute medial malleolar frac ture which demonstrates improved near anatomic alignment. Satisfactory alignment of the acute posteri or malleolar fracture. Persistent soft tissue swelling. There is a question subcentimeter intra-artic ular fracture fragment within the anterior recess of the ankle seen on the lateral view. Persistent s oft tissue swelling with expected deep tissue air. Overlying casting material limits the study. IMPRESSION: Improved alignment of the acute fracture dislocation of the ankle status post ORIF. There is a probable subcentimeter intra-articular fracture fragment. ACT 112: Negative or not required by law. The above report was generated using voice recognition software. It may contain grammatical, syntax o r spelling errors. Electronically signed by: Carmelo Dumont M.D. 12/29/2021 6:22 PM
[2021-12-29] MEDS ORDERED: HYDROCODONE/ACETAMOPHEN 5/325MG TAB PO ONE (18:30)
--- NOTE | 2021-12-29 22:23 | Hospitalist Progress Note ---
Date of Service December 29, 2021 Assessment & Plan (1) Constipation: Plan: improved s/p enema last pm however, still constipated miralax x multiple doses tonight dulcolax 10mg po x 1 re-eval tomorrow (2) Closed dislocation of right ankle: Plan: with medial malleolar fracture s/p Open Reduction Internal Fixation Right Medial Malleolus Fracture by Dr Chandler on 12/22/21 complicated by mild acute blood loss anemia but did not require PRBC infusion c/o pain today - x-rays taken; will touch base with [facility] ortho in am to have them eval Non-weightbearing status - RLE needs rehab cont PT/OT (3) Ankle fracture, right: Plan: as above mild vit D deficiency - 25-OH vit D level noted (4) Acute metabolic encephalopathy: Plan: Secondary to hypoglycemia and opioid overdose Did require narcan evening of 12/25 altered MS resolved (5) Diabetes mellitus type 2 in obese: Plan: HbA1c 7.8%. Multiple episodes of lows while hospitalized Lantus home dose is 50 units twice a day along with NovoLog Continue to hold home Lantus 50 units twice daily Continue loosened NovoLog SSI BSGs remain acceptable and without lows but still even with low-normal readings at times; change the goal range to 120-160 (6) Fall: Plan: prior to admission with resulting right ankle fracture with dislocation cont PT, OT will need rehab post-d/c (7) CAD (coronary artery disease): Plan: S/p CABG 2020. Continue Plavix Continue statin Not on BB given hx syncope/pauses (previously hospitalized and treated for such) Remains on amiodarone for PAF (8) End-stage renal disease on hemodialysis: Plan: [facility] [place] [place] Nephrology assistance appreciated Normal HD days are T-Th-Sat. He has been getting HD M/W/F here. (9) HTN (hypertension): Plan: BP stable Continues on amlodipine, clonidine, lasix -- held prior to HD (10) Paroxysmal atrial flutter: Plan: Cont Eliquis Cont Amiodarone for rhythm control TSH wnl (11) BPH (benign prostatic hyperplasia): Plan: Voids spontaneously about 1x/day Continue flomax (12) Anemia: Plan: Acute on chronic Acute component 2nd to mild acute blood loss anemia chronic - 2nd to ESRD s/p IV venofer x 5 doses while here H/H stable (13) DVT prophylaxis: Plan: Apixaban 5mg BID (14) Obesity: Plan: Morbid obesity- BMI 40.9 (15) Hyperphosphatemia: Plan: defer Rx to nephrology remains on sevelamer 2400mg TID w/ meals improved today (16) Umbilical hernia: Plan: large no SBO on x-rays last pm Admission and Anticipated Discharge Date Admission Date: December 21, 2021 Subjective patient c/o right ankle pain - lateral aspect starting hurting overnight worst pain he has had since the surgery did have large BM with enema last pm distension/bloating improved, and his nausea has resolved he feels better no additional BMs since the enema tolerating the clear liquids Review of Systems Review of Systems: gen - no fevers cv - no orthopnea, no cp pulm - no dyspnea GI - no pain today Physical Exam Physical Exam: gen - looks much better today, comfortable neck - no JVD mouth - MMM heart - RRR, s1 s2, 1/6 GINA LSB lungs - CTA b/l abd - distension much improved, BS+, large umbilical hernia present somewhat reducible, tympany improved; nontender ext - right ankle wrapped in large SUZANNE wraps/dressings; b/l foot pulses 1-2+ b/l; cap refill 2 sec; no change in gross appearance of right ankle/foot vascular - AV fistula right arm Results & Data Results & Data ([facility]) Vital Signs (Past 12 Hours) Vital Signs Temp Pulse Pulse Resp BP Pulse Ox O2 Del Method 12/29/21 20:05 36.7 C 62 18 144/62 H 90 Room Air 12/29/21 16:27 36.7 C 64 18 147/69 H 93 Room Air 12/29/21 15:38 64 12/29/21 11:46 36.7 C 66 18 141/68 H 92 Room Air Laboratory Results Laboratory Results - last 24 hr 12/28/21 12/29/21 12/29/21 22:59 07:22 07:34 Sodium 132 L Potassium 4.7 Chloride 95 L Carbon Dioxide 25 Anion Gap 12 H BUN 47 H Creatinine 7.66 H* D Est Cr Clr Drug Dosing 12.3 Est GFR ( Amer) 7.6 Est GFR (Non-Af Amer) 6.5 BUN/Creatinine Ratio 6.1 L Glucose 122 H POC Glucose 134 H 118 H Calcium 9.0 Phosphorus 7.2 H Albumin 3.5 25-OH Vitamin D Total TSH 12/29/21 12/29/21 12/29/21 07:34 07:34 11:45 Sodium Potassium Chloride Carbon Dioxide Anion Gap BUN Creatinine Est Cr Clr Drug Dosing Est GFR ( Amer) Est GFR (Non-Af Amer) BUN/Creatinine Ratio Glucose POC Glucose 143 H Calcium Phosphorus Albumin 25-OH Vitamin D Total 17.7 L TSH 2.090 12/29/21 12/29/21 16:44 20:10 Sodium Potassium Chloride Carbon Dioxide Anion Gap BUN Creatinine Est Cr Clr Drug Dosing Est GFR ( Amer) Est GFR (Non-Af Amer) BUN/Creatinine Ratio Glucose POC Glucose 143 H 171 H Calcium Phosphorus Albumin 25-OH Vitamin D Total TSH PG Care Time/CCT Total # of Minutes Spent Total Time Spent with Patient: Total time spent is greater than 50% in coordination of care (as documented) at patient's floor/unit and/or counseling patient: Coding Level of Care Code 11507 Subseq Hosp Care Lvl 3 Diagnoses Constipation K59.00 Closed dislocation of right ankle S93.04XA Ankle fracture, right S82.891A Acute metabolic encephalopathy G93.41 Diabetes mellitus type 2 in obese E11.69; E66.9 Fall W19.XXXA CAD (coronary artery disease) I25.119 Associated angina: with unspecified angina Coronary Disease-Associated Artery/Lesion type: [place] artery [place] vs. transplanted heart: [place] heart End-stage renal disease on hemodialysis N18.6; Z99.2 HTN (hypertension) I10 Hypertension type: unspecified Paroxysmal atrial flutter I48.92 BPH (benign prostatic hyperplasia) N40.0 Lower urinary tract symptom presence: symptoms absent Anemia D64.9 DVT prophylaxis Z29.9 Obesity E66.9 Hyperphosphatemia E83.39 Umbilical hernia K42.9 (1) BPH (benign prostatic hyperplasia) Lower urinary tract symptom presence: symptoms absent Qualified Code(s): N40.0 - Benign prostatic hyperplasia without lower urinary tract symptoms (2) CAD (coronary artery disease) Associated angina: with unspecified angina Coronary Disease-Associated Artery/Lesion type: [place] artery [place] vs. transplanted heart: [place] heart Qualified Code(s): I25.119 - Atherosclerotic heart disease of [place] coronary artery with unspecified angina pectoris (3) HTN (hypertension) Hypertension type: unspecified Qualified Code(s): I10 - Essential (primary) hypertension
[2021-12-30 06:57] LABS: Hematocrit (blood only) 33.6 % (40.1-51.0); Hemoglobin 10.5 g/dl (14.0-18.0)
[2021-12-30] MEDS: TAMSULOSIN HCL 0.4 MG CAP PO SCH (07:09)
[2021-12-30] MEDS: AMIODARONE 200 MG TAB PO SCH (07:09)
[2021-12-30] MEDS: amLODIPine BESYLATE 5 MG TAB PO SCH (07:10)
[2021-12-30] MEDS: CLOPIDOGREL BISULFATE 75 MG TAB PO SCH (07:10)
[2021-12-30] MEDS: ROSUVASTATIN CALCIUM 10 MG TAB PO SCH (07:10)
[2021-12-30] MEDS: DOCUSATE SODIUM 100 MG CAP PO SCH ×2 (07:10→20:09)
[2021-12-30] MEDS: FUROSEMIDE 80 MG TAB PO SCH ×2 (07:10→16:42)
[2021-12-30] MEDS: CYANOCOBALAMIN (B-12) 500 MCG TABLET PO SCH (07:10)
[2021-12-30] MEDS: APIXABAN 5 MG TABLET PO SCH ×2 (07:10→20:09)
[2021-12-30] MEDS: NEPHROCAPS PO SCH (07:10)
[2021-12-30] MEDS: SEVELAMER HCL 800 MG TABLET PO SCH ×3 (07:11→16:42)
[2021-12-30] MEDS: DOCUSATE SODIUM/SENNA 50/8.6MG TAB PO SCH ×2 (07:11→20:09)
[2021-12-30] MEDS: cloNIDine HCL 0.1 MG TAB PO SCH ×2 (07:19→20:09)
[2021-12-30] MEDS: ONDANSETRON INJ 2 MG/ML 2 ML VIAL IV PRN (07:29)
[2021-12-30 07:31] LABS: BUN Creatinine Ratio 6.8 (10-20); Calcium 9.3 mg/dl (8.5-10.1); Creatinine Clr Calc Pharmacy 10.4 ml/min; Est GFR (African American) 6.2 ml/min; Est GFR (Non-African American) 5.4 ml/min; Potassium 4.8 mmol/L (3.5-5.1)
[2021-12-30] MEDS: INSULIN ASPART PER UNIT SC SCH ×4 (08:21→21:55)
--- NOTE | 2021-12-30 10:08 | Nephrology Progress Note ---
Date of Service December 30, 2021 Assessment & Plan (1) End-stage renal disease on hemodialysis: Plan: Orders for HD today entered into the EHR and reviewed with dialysis nurse. UF goal ~3 L. AVF has been functioning reasonably well. Medications appropriately dosed for IHD. Sevelamer 3 tabs QAC for hyperphosphatemia. Low PO4 diet. (2) HTN (hypertension): Plan: BP acceptable. Continue amlodipine, clonidine, and furosemide per home Rx. Elevated this AM but anticipate some improvement with HD. (3) Anemia due to chronic kidney disease: Plan: Venofer 200 mg IV daily x 5 doses completed. Epogen 97110 units provided 12/28. (4) Ankle fracture, right: Plan: ORIF right middle malleolar fracture on 02/21/2022. Social work is working on placement in SNF for rehab post discharge. Admission and Anticipated Discharge Date Admission Date: December 21, 2021 Subjective No acute events overnight. Angel was out of bed to chair and reported feeling overall much better this morning. He continues to have pain in his right ankle but improved pain control. Lower back discomfort significantly improved. Constipation improved. Review of Systems Review of Systems: All systems reviewed & are unremarkable except as noted in HPI & below Physical Exam Constitutional: well developed; no acute distress Eyes: + anicteric sclerae; no corneal abnormality ENMT: Mouth: no oral mucosal abnormality and oral mucous membranes not dry Neck: normal visual inspection and trachea midline Respiratory: normal respiratory effort Auscultation: lungs clear to auscultation bilaterally Cardiovascular: Rate/Rhythm: regular rate Heart Sounds: normal S1 and normal S2 Extremities: + AV fistula; no edema Musculoskeletal: Extremities: + lower leg abnormality (SUZANNE cdi); no cyanosis and no clubbing Skin: normal turgor; no lesions Neurologic: Motor/Sensory: no tremor and no asterixis Psychiatric: Orientation: alert and oriented x 3 Results & Data ([facility]) Vital Signs (Past 12 Hours) Vital Signs Temp Pulse Pulse Resp BP Pulse Ox O2 Del Method 12/30/21 08:33 Nasal Cannula 12/30/21 07:45 36.8 C 66 18 188/70 H 99 12/30/21 07:03 64 12/30/21 03:00 36.4 C L 56 L 19 132/62 93 Room Air 12/30/21 00:00 61 12/30/21 00:05 36.4 C L 58 L 18 148/65 H 93 O2 Flow Rate 12/30/21 08:33 3 12/30/21 07:45 12/30/21 07:03 12/30/21 03:00 12/30/21 00:00 12/30/21 00:05 Laboratory Results Laboratory Results - last 24 hr 12/29/21 12/29/21 12/29/21 11:45 16:44 20:10 Hgb Hct Sodium Potassium Chloride Carbon Dioxide Anion Gap BUN Creatinine Est Cr Clr Drug Dosing Est GFR ( Amer) Est GFR (Non-Af Amer) BUN/Creatinine Ratio Glucose POC Glucose 143 H 143 H 171 H Calcium Hepatitis A IgM Ab Hep Bs Antigen Hep Bs Ag Confirmation Hep B Core IgM Ab Hepatitis C Ab (EIA) Hep C Ab Signal/Cutoff 12/30/21 12/30/21 12/30/21 06:39 06:39 07:34 Hgb 10.5 L Hct 33.6 L Sodium 129 L Potassium 4.8 Chloride 92 L Carbon Dioxide 20 L Anion Gap 17 H BUN 61 H Creatinine 9.00 H* D Est Cr Clr Drug Dosing 10.4 Est GFR ( Amer) 6.2 Est GFR (Non-Af Amer) 5.4 BUN/Creatinine Ratio 6.8 L Glucose 140 H POC Glucose 145 H Calcium 9.3 Hepatitis A IgM Ab Hep Bs Antigen Hep Bs Ag Confirmation Hep B Core IgM Ab Hepatitis C Ab (EIA) Hep C Ab Signal/Cutoff 12/30/21 09:07 Hgb Hct Sodium Potassium Chloride Carbon Dioxide Anion Gap BUN Creatinine Est Cr Clr Drug Dosing Est GFR ( Amer) Est GFR (Non-Af Amer) BUN/Creatinine Ratio Glucose POC Glucose Calcium Hepatitis A IgM Ab Pending Hep Bs Antigen Pending Hep Bs Ag Confirmation Pending Hep B Core IgM Ab Pending Hepatitis C Ab (EIA) Pending Hep C Ab Signal/Cutoff Pending PG Care Time/CCT Total # of Minutes Spent Total Time Spent with Patient: Total time spent is greater than 50% in coordination of care (as documented) at patient's floor/unit and/or counseling patient: Coding Level of Care Code 65812 Subseq Hosp Care Lvl 3 Diagnoses End-stage renal disease on hemodialysis N18.6; Z99.2 HTN (hypertension) I10 Hypertension type: unspecified Anemia due to chronic kidney disease N18.9; D63.1 Ankle fracture, right S82.997O (1) HTN (hypertension) Hypertension type: unspecified Qualified Code(s): I10 - Essential (primary) hypertension
[2021-12-30] MEDS ORDERED: HYDROCODONE/ACETAMINOPHEN 7.5/325MG TAB PO PRN (11:49)
[2021-12-30 16:58] LABS: Base Excess VBG 0.4 mEq/L; HCO3 VBG 28 mmol/L; Oxygen Saturation VBG < 60.0 %; PCO2 VBG 55 mmHg (38-50); PO2 VBG 18 mmHg; pH VBG 7.31 (7.36-7.41)
[2021-12-30] MEDS: ACETAMINOPHEN 325 MG TAB PO PRN (20:08)
--- NOTE | 2021-12-30 20:25 | Hospitalist Progress Note ---
Date of Service December 30, 2021 Assessment & Plan (1) Acute metabolic encephalopathy: Plan: Earlier in the admission he had episodes of altered MS -- secondary to hypoglycemia and opioid overdose Did require narcan evening of 12/25 altered MS resolved since 12/25 today - very sleepy/groggy; he did NOT receive narcotics ammonia level wnl VBG with mild resp acidosis BIPAP ordered serial exams clonidine could be contributing?? consider stopping daytime clonidine and just using at HS (2) Constipation: Plan: improved s/p enema 2 nights ago however, still constipated has he has had no BMs since gave additional miralax and dulcolax yesterday evening without relief may need lactulose or similar (3) Closed dislocation of right ankle: Plan: with medial malleolar fracture s/p Open Reduction Internal Fixation Right Medial Malleolus Fracture by Dr Chandler on 12/22/21 complicated by mild acute blood loss anemia but did not require PRBC infusion x-rays 12/29 -- stable appearing; I had [facility] orth[facility] look at films and they are acceptable at this time Non-weightbearing status - RLE needs rehab cont PT/OT (4) Ankle fracture, right: Plan: as above mild vit D deficiency - 25-OH vit D level noted (5) Diabetes mellitus type 2 in obese: Plan: HbA1c 7.8%. Multiple episodes of lows while hospitalized Lantus home dose is 50 units twice a day along with NovoLog Continue to hold home Lantus 50 units twice daily Continue loosened NovoLog SSI only BSGs remain acceptable and without lows (6) Fall: Plan: prior to admission with resulting right ankle fracture with dislocation cont PT, OT will need rehab post-d/c (7) CAD (coronary artery disease): Plan: S/p CABG 2020. Continue Plavix Continue statin Not on BB given hx syncope/pauses (previously hospitalized and treated for such) Tele remains stable Remains on amiodarone for PAF TSH this admission wnl (8) End-stage renal disease on hemodialysis: Plan: [facility] [place] Nephrology assistance appreciated Normal HD days are T-Th-Sat. He has been getting HD M/W/F here. (9) HTN (hypertension): Plan: BP stable Continues on amlodipine, clonidine, lasix Reduce dose of his clonidine to HS only (10) Paroxysmal atrial flutter: Plan: Cont Eliquis Cont Amiodarone for rhythm control TSH wnl Tele stable (11) BPH (benign prostatic hyperplasia): Plan: Voids spontaneously about 1x/day Continue flomax (12) Anemia: Plan: Acute on chronic Acute component 2nd to mild acute blood loss anemia chronic - 2nd to ESRD s/p IV venofer x 5 doses while here H/H stable (13) DVT prophylaxis: Plan: Apixaban 5mg BID (14) Obesity: Plan: Morbid obesity- BMI 40.9 (15) Hyperphosphatemia: Plan: defer Rx to nephrology remains on sevelamer 2400mg TID w/ meals improved from 10 to 7 with above (16) Umbilical hernia: Plan: large no SBO on x-rays stable Plan have left messages - 12/29 and 12/30 - for Liam Gee who is listed as primary contact in chart Admission and Anticipated Discharge Date Admission Date: December 21, 2021 Subjective saw patient in HD suite he was finishing up his HD session UF about 2.5 liters dialysis nurse stated he was tired/sleepy and a little slurry with his speech the entire 4 hour treatment his floor nurse stated he did NOT have norco before going to dialysis patient states his right ankle feels better today no abd pain no nausea does want to try advancing his diet denies dyspnea Review of Systems Review of Systems: gen - fatigue/tired cv - no orthopnea; no cp pulm - no cough GI - no abd pain/N/V Physical Exam Physical Exam: gen - sleepy/groggy but able to answer questions and follow commands eyes - pupils 2mm b/l and reactive neck - no JVD mouth - MMM heart - RRR, s1 s2, 1/6 GINA LSB lungs - CTA b/l abd - distension much improved from earlier this week, BS+, large umbilical hernia present and unchanged; no tenderness with palpation of umbilical hernia, tympany resolved; nontender ext - right ankle wrapped in large SUZANNE wraps/dressings; b/l foot pulses 1-2+ b/l; cap refill 2 sec; no change in gross appearance of right ankle/foot vascular - AV fistula right arm Results & Data Results & Data ([facility]) Vital Signs (Past 12 Hours) Vital Signs Temp Pulse Pulse Pulse Resp BP BP 12/30/21 18:27 36.6 C 68 20 129/60 12/30/21 16:20 36.5 C 57 L 123/62 12/30/21 16:00 52 L 122/57 L 12/30/21 15:30 52 L 122/57 L 12/30/21 15:00 51 L 115/63 12/30/21 14:30 50 L 98/54 L 12/30/21 16:38 36.5 C 58 L 20 136/64 12/30/21 14:00 54 L 119/57 L 12/30/21 13:30 53 L 133/66 12/30/21 13:00 54 L 117/66 12/30/21 12:30 58 L 105/64 12/30/21 12:08 36.5 C 68 12/30/21 11:45 36.4 C L 64 18 172/73 H 12/30/21 08:33 Pulse Ox O2 Del Method O2 Flow Rate 12/30/21 18:27 93 Room Air 12/30/21 16:20 12/30/21 16:00 12/30/21 15:30 12/30/21 15:00 12/30/21 14:30 12/30/21 16:38 100 Room Air 12/30/21 14:00 12/30/21 13:30 12/30/21 13:00 12/30/21 12:30 12/30/21 12:08 12/30/21 11:45 94 Room Air 12/30/21 08:33 Nasal Cannula 3 Laboratory Results Laboratory Results - last 24 hr 12/30/21 12/30/21 12/30/21 06:39 06:39 07:34 Hgb 10.5 L Hct 33.6 L VBG pH VBG pCO2 VBG pO2 VBG HCO3 VBG O2 Saturation VBG Base Excess Sodium 129 L Potassium 4.8 Chloride 92 L Carbon Dioxide 20 L Anion Gap 17 H BUN 61 H Creatinine 9.00 H* D Est Cr Clr Drug Dosing 10.4 Est GFR ( Amer) 6.2 Est GFR (Non-Af Amer) 5.4 BUN/Creatinine Ratio 6.8 L Glucose 140 H POC Glucose 145 H Calcium 9.3 Ammonia Hepatitis A IgM Ab Hep Bs Antigen Hep Bs Ag Confirmation Hep B Core IgM Ab Hepatitis C Ab (EIA) Hep C Ab Signal/Cutoff 12/30/21 12/30/21 12/30/21 09:07 11:53 16:33 Hgb Hct VBG pH VBG pCO2 VBG pO2 VBG HCO3 VBG O2 Saturation VBG Base Excess Sodium Potassium Chloride Carbon Dioxide Anion Gap BUN Creatinine Est Cr Clr Drug Dosing Est GFR ( Amer) Est GFR (Non-Af Amer) BUN/Creatinine Ratio Glucose POC Glucose 147 H 101 H Calcium Ammonia Hepatitis A IgM Ab Pending Hep Bs Antigen Pending Hep Bs Ag Confirmation Pending Hep B Core IgM Ab Pending Hepatitis C Ab (EIA) Pending Hep C Ab Signal/Cutoff Pending 12/30/21 12/30/21 16:48 16:48 Hgb Hct VBG pH 7.31 L VBG pCO2 55 H VBG pO2 18 VBG HCO3 28 VBG O2 Saturation < 60.0 VBG Base Excess 0.4 Sodium Potassium Chloride Carbon Dioxide Anion Gap BUN Creatinine Est Cr Clr Drug Dosing Est GFR ( Amer) Est GFR (Non-Af Amer) BUN/Creatinine Ratio Glucose POC Glucose Calcium Ammonia 15.0 L Hepatitis A IgM Ab Hep Bs Antigen Hep Bs Ag Confirmation Hep B Core IgM Ab Hepatitis C Ab (EIA) Hep C Ab Signal/Cutoff PG Care Time/CCT Total # of Minutes Spent Total Time Spent with Patient: Total time spent is greater than 50% in coordination of care (as documented) at patient's floor/unit and/or counseling patient: Coding Level of Care Code 79861 Subseq Hosp Care Lvl 2 Diagnoses Acute metabolic encephalopathy G93.41 Constipation K59.00 Closed dislocation of right ankle S93.04XA Ankle fracture, right S82.891A Diabetes mellitus type 2 in obese E11.69; E66.9 Fall W19.XXXA CAD (coronary artery disease) I25.119 Associated angina: with unspecified angina Coronary Disease-Associated Artery/Lesion type: [place] artery [place] vs. transplanted heart: [place] heart End-stage renal disease on hemodialysis N18.6; Z99.2 HTN (hypertension) I10 Hypertension type: unspecified Paroxysmal atrial flutter I48.92 BPH (benign prostatic hyperplasia) N40.0 Lower urinary tract symptom presence: symptoms absent Anemia D64.9 DVT prophylaxis Z29.9 Obesity E66.9 Hyperphosphatemia E83.39 Umbilical hernia K42.9 (1) BPH (benign prostatic hyperplasia) Lower urinary tract symptom presence: symptoms absent Qualified Code(s): N40.0 - Benign prostatic hyperplasia without lower urinary tract symptoms (2) CAD (coronary artery disease) Associated angina: with unspecified angina Coronary Disease-Associated Artery/Lesion type: [place] artery [place] vs. transplanted heart: [place] heart Qualified Code(s): I25.119 - Atherosclerotic heart disease of [place] coronary artery with unspecified angina pectoris (3) HTN (hypertension) Hypertension type: unspecified Qualified Code(s): I10 - Essential (primary) hypertension
[2021-12-31] MEDS: INSULIN ASPART PER UNIT SC SCH ×4 (07:38→20:12)
[2021-12-31] MEDS: amLODIPine BESYLATE 5 MG TAB PO SCH (08:39)
[2021-12-31] MEDS: APIXABAN 5 MG TABLET PO SCH ×2 (08:39→20:35)
[2021-12-31] MEDS: ROSUVASTATIN CALCIUM 10 MG TAB PO SCH (08:39)
[2021-12-31] MEDS: SEVELAMER HCL 800 MG TABLET PO SCH ×3 (08:39→17:08)
[2021-12-31] MEDS: CYANOCOBALAMIN (B-12) 500 MCG TABLET PO SCH (08:40)
[2021-12-31] MEDS: TAMSULOSIN HCL 0.4 MG CAP PO SCH (08:40)
[2021-12-31] MEDS: NEPHROCAPS PO SCH (08:40)
[2021-12-31] MEDS: ACETAMINOPHEN 325 MG TAB PO PRN ×2 (08:40→20:34)
[2021-12-31] MEDS: FUROSEMIDE 80 MG TAB PO SCH ×2 (08:40→17:08)
[2021-12-31] MEDS: CLOPIDOGREL BISULFATE 75 MG TAB PO SCH (08:40)
[2021-12-31] MEDS: AMIODARONE 200 MG TAB PO SCH (08:41)
[2021-12-31] MEDS: DOCUSATE SODIUM/SENNA 50/8.6MG TAB PO SCH ×2 (08:41→20:35)
[2021-12-31] MEDS: DOCUSATE SODIUM 100 MG CAP PO SCH ×2 (08:41→20:35)
[2021-12-31] MEDS ORDERED: LACTULOSE SYRUP 20 GM/30 ML UDC PO ONE (08:46)
--- NOTE | 2021-12-31 10:27 | Nephrology Progress Note ---
Date of Service December 31, 2021 Assessment & Plan (1) End-stage renal disease on hemodialysis: Plan: Completed HD yesterday with adequate clearance and control of volume status. AVF functioning well. No concerns with dialysis treatment. Angel has been acceptable at [facility] in [place]. I discussed his disposition plan with Drea Pastrana in case management this AM. Potential discharge within next 24-48 hours. Arrangements for HD can be made for tomorrow AM at [facility] prior to possible discharge. Medications appropriately dosed for IHD. Sevelamer 3 tabs QAC for hyperphosphatemia. Low PO4 diet. (2) HTN (hypertension): Plan: BP acceptable. Continue amlodipine, clonidine, and furosemide per home Rx. (3) Anemia due to chronic kidney disease: Plan: Venofer 200 mg IV daily x 5 doses completed. Epogen 82693 units provided 12/28. (4) Ankle fracture, right: Plan: ORIF right middle malleolar fracture on 02/21/2022. Admission and Anticipated Discharge Date Admission Date: December 21, 2021 Subjective No acute events overnight. Yesterday, Angel experienced some transient mental status changes around the time of dialysis. I discussed his status with the dialysis nurse yesterday. Angel told me this AM that he does not remember HD. He was hemodynamically stable throughout treatment. AVF functioning well. Clearance has been at goal. Angel is in agreement that changes in mental status seem to be associated with pain medication. He feels that using Tylenol alone is working for him now. Nausea improved once he was able to move his bowels. He is advancing his diet and reports improvement appetite. Overall, Angel states that he feels well this AM and denies any pain. Review of Systems Review of Systems: All systems reviewed & are unremarkable except as noted in HPI & below Physical Exam Constitutional: well developed; no acute distress Eyes: + anicteric sclerae; no corneal abnormality Neck: normal visual inspection and trachea midline Respiratory: normal respiratory effort Auscultation: lungs clear to auscultation bilaterally Cardiovascular: Rate/Rhythm: regular rate Heart Sounds: normal S1 and normal S2 Extremities: + AV fistula; no edema Gastrointestinal (Abdomen): Percussion/Palpation: + hernia (large umbilical) Musculoskeletal: Extremities: + lower leg abnormality (SUZANNE cdi); no cyanosis and no clubbing Skin: normal turgor; no lesions Neurologic: Motor/Sensory: no tremor and no asterixis Psychiatric: Orientation: alert and oriented x 3 Results & Data ([facility]) Vital Signs (Past 12 Hours) Vital Signs Temp Pulse Pulse Resp BP Pulse Ox O2 Del Method 12/31/21 10:01 Nasal Cannula 12/31/21 08:48 36.7 C 75 18 133/59 L 94 Room Air 12/31/21 06:12 62 12/31/21 04:00 36.5 C 62 18 127/62 96 Nasal Cannula 12/31/21 00:00 36.5 C 65 18 127/63 95 Nasal Cannula 12/30/21 22:55 68 20 95 O2 Flow Rate 12/31/21 10:01 2 12/31/21 08:48 12/31/21 06:12 12/31/21 04:00 2 12/31/21 00:00 2 12/30/21 22:55 2 Laboratory Results Laboratory Results - last 24 hr 12/30/21 12/30/21 12/30/21 11:53 16:33 16:48 VBG pH VBG pCO2 VBG pO2 VBG HCO3 VBG O2 Saturation VBG Base Excess POC Glucose 147 H 101 H Ammonia 15.0 L Hep Bs Antigen Hep Bs Ag Confirmation 12/30/21 12/30/21 12/31/21 16:48 21:03 07:32 VBG pH 7.31 L VBG pCO2 55 H VBG pO2 18 VBG HCO3 28 VBG O2 Saturation < 60.0 VBG Base Excess 0.4 POC Glucose 138 H 115 H Ammonia Hep Bs Antigen Hep Bs Ag Confirmation 12/31/21 07:56 VBG pH VBG pCO2 VBG pO2 VBG HCO3 VBG O2 Saturation VBG Base Excess POC Glucose Ammonia Hep Bs Antigen Pending Hep Bs Ag Confirmation Pending PG Care Time/CCT Total # of Minutes Spent Total Time Spent with Patient: Total time spent is greater than 50% in coordination of care (as documented) at patient's floor/unit and/or counseling patient: Coding Level of Care Code 41563 Subseq Hosp Care Lvl 3 Diagnoses End-stage renal disease on hemodialysis N18.6; Z99.2 HTN (hypertension) I10 Hypertension type: unspecified Anemia due to chronic kidney disease N18.9; D63.1 Ankle fracture, right S82.891A (1) HTN (hypertension) Hypertension type: unspecified Qualified Code(s): I10 - Essential (primary) hypertension
[2021-12-31 11:04] LABS: HBSAG NON-REACTIVE (NON-REACTIVE); Hepatitis A Antibody IgM NON-REACTIVE (NON-REACTIVE); Hepatitis B Core Antibody IgM NON-REACTIVE (NON-REACTIVE)
[2021-12-31] MEDS ORDERED: cloNIDine HCL 0.1 MG TAB PO SCH (21:00)
--- NOTE | 2021-12-31 21:39 | Hospitalist Progress Note ---
Date of Service December 31, 2021 Assessment & Plan (1) Acute metabolic encephalopathy: Plan: Earlier in the admission he had episodes of altered MS -- secondary to hypoglycemia and opioid overdose Did require narcan evening of 12/25 altered MS resolved since 12/25 12/30 - very sleepy/groggy; he received narcotics late in the day on 12/29 - still possible it was that he had mild resp acidosis - CO2 retention in the setting of untreated RADHA & narcotics today his mentation is normal c/w CO2 retention resolving and narcotics out of his system NO NARCOTICS MOVING FORWARD unless he was compliant with CPAP for RADHA clonidine could have been contributing, too - I stopped his AM dose (2) Constipation: Plan: finally improved - had large BM today s/p lactulose now that he is having BMS continue aggressive bowel regimen (3) Closed dislocation of right ankle: Plan: with medial malleolar fracture s/p Open Reduction Internal Fixation Right Medial Malleolus Fracture by Dr Chandler on 12/22/21 complicated by mild acute blood loss anemia but did not require PRBC infusion x-rays 12/29 -- stable appearing; I had [facility] ortho look at films and they are acceptable at this time Non-weightbearing status - RLE needs rehab cont PT/OT f/u ortho 1-2 weeks post-d/c (4) Ankle fracture, right: Plan: as above mild vit D deficiency - 25-OH vit D level noted level <20 replace with calcitriol - start 0.25mcg daily (5) Diabetes mellitus type 2 in obese: Plan: HbA1c 7.8%. Multiple episodes of lows while hospitalized Lantus home dose is 50 units twice a day along with NovoLog Continue to hold home Lantus 50 units twice daily Continue loosened NovoLog SSI only BSGs remain acceptable and without lows (6) Fall: Plan: prior to admission with resulting right ankle fracture with dislocation cont PT, OT will need rehab post-d/c (7) CAD (coronary artery disease): Plan: S/p CABG 2020. Continue Plavix Continue statin Not on BB given hx syncope/pauses (previously hospitalized and treated for such) Tele remains stable Remains on amiodarone for PAF TSH this admission wnl (8) End-stage renal disease on hemodialysis: Plan: [facility] [place] Nephrology assistance appreciated Normal HD days are T-Th-Sat. Will get HD tomorrow. (9) HTN (hypertension): Plan: BP stable Continues on amlodipine, clonidine, lasix Continue reduced dose of his clonidine to HS only (10) Paroxysmal atrial flutter: Plan: Cont Eliquis Cont Amiodarone for rhythm control TSH wnl Tele stable (11) BPH (benign prostatic hyperplasia): Plan: Voids spontaneously about 1x/day Continue flomax (12) Anemia: Plan: Acute on chronic Acute component 2nd to mild acute blood loss anemia chronic - 2nd to ESRD s/p IV venofer x 5 doses while here H/H stable (13) DVT prophylaxis: Plan: Apixaban 5mg BID (14) Obesity: Plan: Morbid obesity- BMI 40.9 (15) Hyperphosphatemia: Plan: defer Rx to nephrology remains on sevelamer 2400mg TID w/ meals improved from 10 to 7 with above suspect noncompliance with phos binders at home given previous living situation (16) Umbilical hernia: Plan: large no SBO on x-rays stable (17) Vitamin D deficiency: Plan: level = 17.7 start calcitriol 0.25mcg daily Plan have left messages - 12/29 and 12/30 - for Liam Gee who is listed as primary contact in chart (he is a nephew) dc to SNF this weekend Admission and Anticipated Discharge Date Admission Date: December 21, 2021 Subjective patient feeling very well today mentation is normal fatigue/lethargy fully resolved he refused BIPAP last pm he has known RADHA but says "I could never wear it" [bipap] eating well today; tolerating regular food no nausea/emesis right ankle pain unchanged tele overnight wnl Review of Systems Review of Systems: gen - no fevers cv - no cp pulm - no dyspnea GI - no abd pain; had a large, firm/hard BM today and feels much better Physical Exam Physical Exam: gen - looks great today, watching football on TV neck - no JVD mouth - MMM heart - RRR, s1 s2, 1/6 GINA LSB lungs - CTA b/l abd - distension much improved from earlier this week, BS+, large umbilical hernia present and unchanged; no tenderness with palpation of umbilical hernia, tympany resolved; nontender ext - right ankle wrapped in large SUZANNE wraps/dressings; b/l foot pulses 2+ b/l; cap refill 2 sec vascular - AV fistula right arm psych - awake, very alert today, oriented x 3 Results & Data Results & Data ([facility]) Vital Signs (Past 12 Hours) Vital Signs Temp Pulse Pulse Resp BP Pulse Ox O2 Del Method 12/31/21 19:17 36.8 C 65 18 134/60 91 Room Air 12/31/21 15:46 36.5 C 67 16 132/67 91 Room Air 12/31/21 14:17 66 12/31/21 11:03 36.8 C 66 18 140/64 92 Room Air 12/31/21 10:01 Nasal Cannula O2 Flow Rate 12/31/21 19:17 12/31/21 15:46 12/31/21 14:17 12/31/21 11:03 12/31/21 10:01 2 Laboratory Results Laboratory Results - last 24 hr 12/30/21 12/31/21 12/31/21 09:07 07:32 07:56 POC Glucose 115 H Hepatitis A IgM Ab NON-REACTIVE Hep Bs Antigen NON-REACTIVE Pending Hep Bs Ag Confirmation TNP Pending Hep B Core IgM Ab NON-REACTIVE Hepatitis C Ab (EIA) NON-REACTIVE Hep C Ab Signal/Cutoff 0.09 12/31/21 12/31/21 12/31/21 11:05 16:43 20:30 POC Glucose 155 H 132 H 152 H Hepatitis A IgM Ab Hep Bs Antigen Hep Bs Ag Confirmation Hep B Core IgM Ab Hepatitis C Ab (EIA) Hep C Ab Signal/Cutoff PG Care Time/CCT Total # of Minutes Spent Total Time Spent with Patient: Total time spent is greater than 50% in coordination of care (as documented) at patient's floor/unit and/or counseling patient: Coding Level of Care Code 45568 Subseq Hosp Care Lvl 2 Diagnoses Acute metabolic encephalopathy G93.41 Constipation K59.00 Closed dislocation of right ankle S93.04XA Ankle fracture, right S82.891A Diabetes mellitus type 2 in obese E11.69; E66.9 Fall W19.XXXA CAD (coronary artery disease) I25.119 Associated angina: with unspecified angina Coronary Disease-Associated Artery/Lesion type: [place] artery [place] vs. transplanted heart: [place] heart End-stage renal disease on hemodialysis N18.6; Z99.2 HTN (hypertension) I10 Hypertension type: unspecified Paroxysmal atrial flutter I48.92 BPH (benign prostatic hyperplasia) N40.0 Lower urinary tract symptom presence: symptoms absent Anemia D64.9 DVT prophylaxis Z29.9 Obesity E66.9 Hyperphosphatemia E83.39 Umbilical hernia K42.9 Vitamin D deficiency E55.9 (1) BPH (benign prostatic hyperplasia) Lower urinary tract symptom presence: symptoms absent Qualified Code(s): N40.0 - Benign prostatic hyperplasia without lower urinary tract symptoms (2) CAD (coronary artery disease) Associated angina: with unspecified angina Coronary Disease-Associated Artery/Lesion type: [place] artery [place] vs. transplanted heart: [place] heart Qualified Code(s): I25.119 - Atherosclerotic heart disease of [place] coronary artery with unspecified angina pectoris (3) HTN (hypertension) Hypertension type: unspecified Qualified Code(s): I10 - Essential (primary) hypertension
[2022-01-01 06:44] LABS: Hematocrit (blood only) 30.7 % (40.1-51.0); Hemoglobin 9.5 g/dl (14.0-18.0)
[2022-01-01 07:17] LABS: BUN Creatinine Ratio 5.1 (10-20); Calcium 8.4 mg/dl (8.5-10.1); Creatinine Clr Calc Pharmacy 10.7 ml/min; Est GFR (African American) 6.4 ml/min; Est GFR (Non-African American) 5.5 ml/min; Phosphorus 6.2 mg/dl (2.5-4.9); Potassium 4.1 mmol/L (3.5-5.1)
[2022-01-01] MEDS: INSULIN ASPART PER UNIT SC SCH ×2 (07:36→13:43)
[2022-01-01] MEDS: DOCUSATE SODIUM/SENNA 50/8.6MG TAB PO SCH (07:48)
[2022-01-01] MEDS: DOCUSATE SODIUM 100 MG CAP PO SCH (07:48)
[2022-01-01] MEDS: TAMSULOSIN HCL 0.4 MG CAP PO SCH (07:49)
[2022-01-01] MEDS: AMIODARONE 200 MG TAB PO SCH (07:49)
[2022-01-01] MEDS: ROSUVASTATIN CALCIUM 10 MG TAB PO SCH (07:49)
[2022-01-01] MEDS: CLOPIDOGREL BISULFATE 75 MG TAB PO SCH (07:49)
[2022-01-01] MEDS: amLODIPine BESYLATE 5 MG TAB PO SCH ×2 (07:49→09:15)
[2022-01-01] MEDS: APIXABAN 5 MG TABLET PO SCH (07:49)
[2022-01-01] MEDS: FUROSEMIDE 80 MG TAB PO SCH (07:49)
[2022-01-01] MEDS: CYANOCOBALAMIN (B-12) 500 MCG TABLET PO SCH (07:49)
[2022-01-01] MEDS: SEVELAMER HCL 800 MG TABLET PO SCH ×2 (07:49→13:53)
[2022-01-01] MEDS: NEPHROCAPS PO SCH (07:49)
[2022-01-01 07:56] LABS: Albumin Level 3.1 gm/dl (3.4-5.0)
--- NOTE | 2022-01-01 09:06 | Nephrology Progress Note ---
Date of Service January 01, 2022 Assessment & Plan (1) End-stage renal disease on hemodialysis: Plan: * HD today according to outpatient orders. Orders are active in EMR. HD RN aware * Sevelamer 3 tabs QAC for hyperphosphatemia. Low PO4 diet (2) HTN (hypertension): Plan: * BP acceptable. Continue amlodipine, clonidine, and furosemide per home Rx (3) Anemia due to chronic kidney disease: Plan: * Venofer 200 mg IV daily x 5 doses completed. Epogen 47759 units provided 12/28 (4) Ankle fracture, right: Plan: * ORIF right middle malleolar fracture on 12/22/2021 Admission and Anticipated Discharge Date Admission Date: December 21, 2021 Subjective Mr. Solorio was evaluated in his hospital room this morning. He is scheduled for dialysis today and then hopes to transfer to a [facility] near [place], [place]. He is anxious to make the transfer and begin physical therapy. He currently denies fever, angina, dyspnea or abdominal discomfort. Review of Systems Constitutional: no fever Eyes: no problem reported Ear, Nose, Mouth, Throat: no problem reported Respiratory: no cough and no dyspnea Cardiovascular: no chest pain, no palpitations and no edema Gastrointestinal: no abdominal pain, no nausea, no vomiting and no diarrhea/loose stools Musculoskeletal: no back pain Integumentary: no rash Neurologic: no falls, no dizziness and no confusion Physical Exam Constitutional: + overweight (chronically ill appearing) Eyes: PERRL, conjunctivae normal, anicteric sclerae ENMT: external ear and nose normal, oropharynx normal Neck: trachea midline, no thyromegaly Respiratory: normal respiratory effort, lungs clear to auscultation Cardiovascular: Rate/Rhythm: regular rhythm Extremities: + AV fistula (+ bruit); no edema Gastrointestinal (Abdomen): normal bowel sounds, soft, nontender, no hepatosplenomegaly Musculoskeletal: Extremities: no cyanosis R ankle with clean, dry surgical wrap in place Skin: no rashes, warm and dry Neurologic: awake; not confused Results & Data (MN) Vital Signs (Past 12 Hours) Vital Signs Temp Pulse Pulse Resp BP Pulse Ox O2 Del Method 01/01/22 07:47 36.7 C 52 L 20 134/49 L 98 Room Air 01/01/22 06:15 53 L 01/01/22 03:17 36.3 C L 54 L 17 115/44 L 91 Nasal Cannula 12/31/21 21:30 Room Air 01/01/22 01:18 62 12/31/21 22:24 36.6 C 61 17 114/51 L 91 Room Air O2 Flow Rate 01/01/22 07:47 01/01/22 06:15 01/01/22 03:17 2 12/31/21 21:30 01/01/22 01:18 12/31/21 22:24 Laboratory Results Laboratory Tests 01/01/22 01/01/22 06:11 06:11 Hgb 9.5 L Hct 30.7 L Sodium 133 L Potassium 4.1 Chloride 100 Carbon Dioxide 22 BUN 45 H Creatinine 8.79 H* Glucose 151 H Calcium 8.4 L Phosphorus 6.2 H Albumin 3.1 L PG Care Time/CCT Total # of Minutes Spent Total Time Spent with Patient: Total time spent is greater than 50% in coordination of care (as documented) at patient's floor/unit and/or counseling patient: Coding Level of Care Code 65570 Subseq Hosp Care Lvl 3 Diagnoses End-stage renal disease on hemodialysis N18.6; Z99.2 HTN (hypertension) I10 Hypertension type: unspecified Anemia due to chronic kidney disease N18.9; D63.1 Ankle fracture, right S82.891A (1) HTN (hypertension) Hypertension type: unspecified Qualified Code(s): I10 - Essential (primary) hypertension
[2022-01-01] MEDS ORDERED: CALCITRIOL 0.25 MCG CAPSULE PO SCH (09:30)
[2022-01-01 12:22] LABS: HBSAG NON-REACTIVE (NON-REACTIVE)
--- NOTE | 2022-01-01 15:12 | Discharge Summary ---
Date of Service date of admission - December 21, 2021 date of discharge - January 01, 2022 Admission HPI Per Admitting Provider 71yo M w/ hx of ESRD, HTN, afib who presents after a mechanical fall at home. Per patient, slipped on a wet floor with right leg giving out underneath him. Immediate right ankle pain. No prodrome symptoms, no lightheadedness, or other symptoms. Patient states otherwise was in his normal state of health since his hospital discharge last month. Principal Diagnosis 1. Right ankle fracture/dislocation s/p ORIF 2. Severe constipation - resolved 3. Toxic encephalopathy 2nd to narcotics Discharge Exam gen - NAD, pleasant, awake/alert today neck - no JVD mouth - MMM heart - RRR, s1 s2, 1/6 GINA LSB lungs - CTA b/l abd - distension much improved/resolved from earlier this week, BS+, large umbilical hernia present and unchanged; no tenderness with palpation of umbilical hernia, tympany resolved; nontender ext - right ankle wrapped in large SUZANNE wraps/dressings; b/l foot pulses 2+ b/l; cap refill 2 sec vascular - AV fistula right arm psych - awake, alert, oriented x 3 Discharge Data Allergies Allergy/AdvReac Type Severity Reaction Status Date / Time [place] Complexes Allergy Mild rash from Verified 11/23/21 01:29 metal ragweed pollen Allergy Mild [place] Verified 11/23/21 01:29 Consultations [facility] Nephrology [facility] - Carmelo Chandler DO PT, OT Procedures Performed Operation Date: 12/22/21 07:00 Actual Procedures Open Reduction Internal Fixation Right Medial Malleolus Fracture (Right) - Carmelo Chandler DO Ordered Studies Ankle X-Ray 12/21/21 01:37 XR ankle RT 2V HISTORY: 71 years-old Male Fall, injury acute right ankle pain status post fall COMPARISON: None TECHNIQUE: 2 views of the right ankle FINDINGS: Mild to moderate circumferential soft tissue swelling with arterial calcifications. Tiny intra-articular bone fragments adjacent to the distal tibia. There is an acute medial malleolar intra-articular fracture demonstrates 2 mm medial displacement. Intra-articular acute posterior malleolar fracture of the distal tibia demonstrates 2.5 cm of posterior displacement. There is dislocation of the tibiotalar joint with the talus posterior to the distal tibia. Spurring of the calcaneus. Mild midfoot and hindfoot osteoarthritis. IMPRESSION: Acute medial and posterior malleolar fractures of the distal tibia with tibiotalar dislocation. ACT 112: Negative or not required by law. The above report was generated using voice recognition software. It may contain grammatical, syntax or spelling errors. Electronically signed by: Carmelo Dumont M.D. 12/21/2021 6:42 AM Ankle X-Ray 12/21/21 05:06 XR ankle RT 2V HISTORY: 71 years-old Male s/p reduction acute right ankle fracture COMPARISON: Right ankle radiographs of same day at 1:55 AM TECHNIQUE: 2 views of the right ankle FINDINGS: Status post reduction and casting of the acute bimalleolar right ankle fracture. The medial malleolar fracture component is displaced medially 4 mm. 3 mm displacement of the posterior malleolar fracture. There is improved yet persistent tibiotalar subluxation. Moderate soft tissue swelling. IMPRESSION: Mildly improved alignment of the acute right ankle fracture status post reduction and casting with persistent displacement and subluxation as above. ACT 112: Negative or not required by law. The above report was generated using voice recognition software. It may contain grammatical, syntax or spelling errors. Electronically signed by: Carmelo Dumont M.D. 12/21/2021 6:34 AM Chest X-Ray 12/21/21 14:56 XR chest 1V portable CLINICAL HISTORY: pre-op clearance. Evaluate cardiopulmonary status COMPARISON STUDY: 11/23/2021 TECHNIQUE: 1 view of the chest FINDINGS: Single frontal view of the chest demonstrates the heart to again be enlarged status post previous cardiothoracic surgery. A loop recorder is in place. Chronic prominence of the interstitial markings is again seen at the lung bases with resolution of left basilar atelectasis. The lungs are clear of alveolar opacities. There is no evidence for pleural effusion. There is no evidence for vascular congestion. There is no acute osseous pathology. IMPRESSION: 1. No acute cardiopulmonary disease. ACT 112: Negative or not required by law. Electronically signed by: Refugio Jackson M.D. 12/21/2021 6:[address] 12/21/21 22:06 CT ankle RT wo con CLINICAL HISTORY: Right ankle fracture. COMPARISON STUDY: Right ankle radiographs December 21, 2021 at 5:12 AM. TECHNIQUE: Axial images of the right ankle were obtained without IV contrast. Sagittal and coronal reconstructions were viewed. Automated exposure control was utilized for the study. A dose lowering technique was utilized adhering to the principles of ALARA. FINDINGS: Extensive right lower leg, ankle and foot soft tissue swelling is noted. There is no soft tissue gas. Talar dome is intact. Tibiotalar joint alignment has significantly improved since prereduction radiograph radiographs. Comminuted displaced fracture of the medial malleolus is noted. Fracture is displaced 4 mm. This has also improved since initial radiograph. A comminuted mildly displaced fracture of the posterior malleolus is noted as well as an acute fracture of the anterior distal right tibia. 3 mm fracture fragment along the medial malleolus is likely intra-articular. There is no acute fracture of the distal right fibula. No acute fracture of the talus or calcaneus is noted. Minimal posterior calcaneal spurring is present. IMPRESSION: 1. Acute comminuted mildly displaced fractures of the medial and posterior malleoli of the right tibia, as described above. Fracture alignment similar to post reduction radiographs but significantly improved since prereduction radiographs. Fracture also extends through the anterior distal right tibia. 2. Significant improvement in tibiotalar joint alignment from prereduction radiographs. 2. Ankle and foot soft tissue swelling. No soft tissue gas. ACT 112: Negative or not required by law. Electronically signed by: Chaim Phan M.D. 12/22/2021 7:09 AM Ankle X-Ray 12/22/21 15:00 FL ankle RT min 3V RTN HISTORY: 71 years-old Male RT ORIF MED MALLEOLUS acute fracture of the right ankle COMPARISON: 12/21/2021 TECHNIQUE: 3 spot fluoroscopic images of the right ankle were obtained utilizing 36.2 seconds fluoroscopy time FINDINGS: Status post plate screw fusion fixating the acute medial malleolar fracture now demonstrating near-anatomic alignment. Acute mildly displaced posterior malleolar fracture redemonstrated. Acute postoperative soft tissue swelling with deep tissue air. No unexpected opaque foreign body. IMPRESSION: Fluoroscopic assistance as above. ACT 112: Negative or not required by law. The above report was generated using voice recognition software. It may contain grammatical, syntax or spelling errors. Electronically signed by: Carmelo Dumont M.D. 12/22/2021 5:40 PM Chest/Abdomen X-ray 12/28/21 15:32 XR abdomen 2V w PA chest HISTORY: 71 years-old Male marked abd distension, umb hernia; eval SBO acute generalized abdominal pain with distention and umbilical hernia COMPARISON: Chest radiograph 12/21/2021, CT abdomen pelvis 11/23/2021 TECHNIQUE: AP view of the chest with supine and upright views of the abdomen FINDINGS: Limited exam secondary to patient body habitus. Cardiomegaly with prior median sternotomy. Calcified hilar lymph nodes. Loop recorder device. No pneumothorax, large pleural effusion or overt pulmonary edema. There is unchanged blunting of the costophrenic angles. Chronic interstitial coarsening of the lung bases. No acute fracture identified. Degenerative changes of the shoulders, hips and spine. Healed chronic left-sided rib fractures. No pneumatosis or pneumoperitoneum. Nonobstructive bowel gas pattern. There is mild gaseous distention of the large bowel with moderate fecal retention. No urolith identified. Hepatomegaly. IMPRESSION: 1. Cardiomegaly without acute process of the chest. 2. Nonobstructive bowel gas pattern without pneumoperitoneum. 3. Moderate colonic fecal retention with mild gaseous distention of the colon. ACT 112: Negative or not required by law. The above report was generated using voice recognition software. It may contain grammatical, syntax or spelling errors. Electronically signed by: Carmelo Dumont M.D. 12/28/2021 6:16 PM Ankle X-Ray 12/29/21 16:04 XR ankle RT 2V HISTORY: 71 years-old Male recent ORIF of ankle fx; pain ORIF of the right ankle COMPARISON: CT right ankle 12/22/2021 TECHNIQUE: 2 views the right ankle FINDINGS: Status post placement of a plate and screw fixation hardware fixating the acute medial malleolar fracture which demonstrates improved near anatomic alignment. Satisfactory alignment of the acute posterior malleolar fracture. Persistent soft tissue swelling. There is a question subcentimeter intra-articular fracture fragment within the anterior recess of the ankle seen on the lateral view. Persistent soft tissue swelling with expected deep tissue air. Overlying casting material limits the study. IMPRESSION: Improved alignment of the acute fracture dislocation of the ankle status post ORIF. There is a probable subcentimeter intra-articular fracture fragment. ACT 112: Negative or not required by law. The above report was generated using voice recognition software. It may contain grammatical, syntax or spelling errors. Electronically signed by: Carmelo Dumont M.D. 12/29/2021 6:22 PM Hospital Course (1) Acute metabolic encephalopathy: Earlier in the admission he had episodes of altered mental status -- secondary to hypoglycemia and opiates. Did require narcan evening of 12/25/21. Altered mental status was normal since 12/25/21. On 12/30/21 he was very sleepy/groggy once again. He received narcotics late in the day on 12/29/21. He had mild respiratory acidosis/CO2 retention in the setting of untreated RADHA & narcotics. Mentation returned to baseline after narcotics wore off and the CO2 retention resolved. Advise NO NARCOTICS MOVING FORWARD. Also possible that clonidine could have been contributing, too, to sedation - thus, I stopped his AM dose of clonidine and just using it at HS. (2) Toxic encephalopathy: 2nd narcotics. Had altered mental status on 2 occasions while here due to narcotics. Recommend NO NARCOTIC usage as outpatient. (3) Constipation: Patient had SEVERE constipation following his right ankle surgery. He had severe vomiting and inability to eat/drink because of such. After aggressive bowel regimen (PO and AR) the issue finally improved/resolved. He will need a daily bowel regimen to prevent reoccurrence. Senna, colace and lactulose prescribed at discharge. (4) Closed dislocation of right ankle: with medial malleolar fracture. s/p Open Reduction Internal Fixation Right Medial Malleolus Fracture by Dr Chandler on 12/22/21. complicated by mild acute blood loss anemia but did not require PRBC infusion. due to significant pain he had repeat x-rays on 12/29/21 -- stable appearing films. Continue Non-weightbearing status - RLE. He received PT/OT while here and will transfer to SNF for rehab post-discharge. f/u [facility] in 1-2 weeks post-d/c for recheck. Again - do NOT USE NARCOTICS FOR PAIN control at SNF. Recommend tylenol 1gm TID for pain. (5) Ankle fracture, right: as above in #4 mild vit D deficiency - see below replace with calcitriol - started 0.25mcg daily DO NOT USE NARCOTICS for pain control f/u Dr Chandler post-discharge (6) Diabetes mellitus type 2 in obese: HbA1c 7.8%. Multiple episodes of lows while hospitalized Lantus home dose was 50 units twice a day along with NovoLog HE DID NOT REQUIRE NEARLY ANY INSULIN DURING THE VISIT Continue to hold home Lantus 50 units twice daily Continue to hold novolog BSGs were largely acceptable and without lows in the days leading up to discharge The above would argue he was very noncompliant with diet and insulin regimen at his home (7) Fall: prior to admission with resulting right ankle fracture with dislocation cont PT, OT will need rehab post-d/c non-weightbearing status to [facility] (8) CAD (coronary artery disease): S/p CABG 2020. Continue Plavix Continue statin Not on BB given hx syncope/pauses (previously hospitalized and treated for such) Tele was stable while here Remains on amiodarone for PAF TSH this admission wnl (9) End-stage renal disease on hemodialysis: [facility] Nephrology provided HD assistance during the stay Normal HD days are . (10) HTN (hypertension): BP stable Continues on amlodipine, clonidine, lasix Continue reduced dose of his clonidine to HS only (11) Paroxysmal atrial flutter: Cont Eliquis Cont Amiodarone for rhythm control TSH wnl Tele stable; no afib or aflutter during the stay (12) BPH (benign prostatic hyperplasia): Voids spontaneously about 1x/day Continue flomax (13) Anemia: Acute on chronic Acute component 2nd to mild acute blood loss anemia chronic - 2nd to ESRD Hemoglobin was 11.3 at time of admission s/p IV venofer x 5 doses while here Hemoglobin was 9.5 at time of discharge (14) DVT prophylaxis: Apixaban 5mg BID (15) Obesity: Morbid obesity- BMI 40.9 (16) Hyperphosphatemia: sevelamer 2400mg TID w/ meals improved from 10 to 7 with above suspect noncompliance with phos binders at home leading to the very high phos level at time of admission (17) Umbilical hernia: large no SBO on x-rays during the stay stable (18) Vitamin D deficiency: 25-OH vitamin D level = 17.7 start calcitriol 0.25mcg daily recommend repeat 25-OH vitamin D level in about 8 weeks to ensure improvement (19) Inability to return to living situation: by report the patient's home prior to this admission was in disrepair also by report his family expressed concerns that the house was uninhabitable he may need long-term SNF placement Total Time Total Time Spent Total Time Spent (In Minutes): 60 Discharge Plan Discharge Items Patient Disposition: Transfer [facility] Reason For Visit: RIGHT ANKLE DISLOCATION AND POSSIBLE FRACTURE Discharge Diagnosis: 1. Right ankle fracture with dislocation - s/p ORIF by Dr Carmelo Chandler on 12/22/21 2. ESRD on HD - //Monday 3. Toxic encephalopathy - due to narcotic pain meds - resolved 4. Metabolic encephalopathy - due to hypoglycemia - resolved 5. Vitamin D deficiency 6. HTN 7. Severe constipation 8. h/o A flutter 9. T2DM 10. Coronary artery disease Activity: Per Instructions section Weightbearing: Right non-weightbearing Non-emergency contact: Primary Care Provider, Surgeon and Rn Endoscopy Call non-emergency contact if: you have any medication questions, your pain is not controlled, your pain is worsening, you have a fever, your wound has increased redness and your wound has increased drainage Follow-up/Referrals: Gurinder Jackson MD [Physician] - (follow-up with Dr Jackson for dialysis and kidney needs ) Carmelo Chandler DO [Surgeon] - (Follow up with Dr. Chandler within 5 days for post operative visit) [facility] [Primary Care Provider] - Diet: Carb Consistent or DM2 and Dialysis Renal Addtl Attending Provider Instructions: 1. Non-weightbearing status to RLE at all times. 2. Fingerstick blood sugar checks three times daily before meals (of note - patient did not require ANY insulin therapy at [facility] during his stay - all sugars were <200). Please notify medical accounting clerk if blood sugars are consistently >200. 3. NC O2 - 2 liters - at bedtime and with naps only. 4. NO NARCOTIC PAIN KILLERS AT ANY TIME - HE DOES NOT TOLERATE ANY PAIN KILLERS (CONFUSION, LETHARGY). 5. Dialysis - Monday, , Monday schedule. Addtl Chief Librarian Circulation Department Provider Instructions: ACTIVITY RECOMMENDATIONS: * You are to be nonweightbearing on your right foot at this time. SPECIAL CARE INSTRUCTIONS: * Some drainage onto the dressing is normal and is no cause for alarm. * Some swelling is natural especially after walking. When resting, keep your foot elevated above the level of your heart. * Call the doctor's office at if you notice increased drainage, fever over 101 degrees F. or severe constant pain. BANDAGE: * Leave bandage/cast in place unless otherwise directed. * Keep bandage/cast dry at all times. FOLLOW UP VISIT: If appointment is not already scheduled: Please call [facility] [place] to make a follow-up appointment WITHIN 5 DAYS -- . Pending Studies at Discharge: No Stand-Alone Forms: My [facility] Skilled Items Patient informed of condition?: Yes DNR: No Discharge Level of Care: Skilled Communicable Disease: No Discharge Prognosis: Stable Lines: None Urinary Catheter: No Medications and DC Order Prescriptions: New sennosides-docusate sodium [Senokot-S] 8.6-50 mg Tablet 1 tab PO BID Qty: 60 1RF cyanocobalamin (vitamin B-12) 500 mcg Tablet 500 mcg PO QAM Qty: 30 5RF bisacodyl 10 mg Suppository 10 mg AR DAILY PRN (Reason: constipation) Qty: 30 0RF calcitriol 0.25 mcg Capsule 0.25 mcg PO QAM Qty: 30 5RF lactulose 20 gram/30 mL solution 20 g PO DAILY PRN (Reason: constipation) Qty: 1200 0RF acetaminophen [Tylenol Extra Strength] 500 mg tablet 1,000 mg PO TID 14 Days Qty: 84 0RF Continued amiodarone 200 mg tablet 200 mg PO DAILY rosuvastatin 10 mg tablet 10 mg PO DAILY albuterol sulfate 90 mcg/actuation Hfa Aerosol Inhaler 2 puff INHALATION Q6H PRN (Reason: Shortness Of Breath) loratadine 10 mg Tablet 10 mg PO DAILY PRN (Reason: Allergy Symptoms) clopidogrel [Plavix] 75 mg Tablet 75 mg PO QAM ProRenal 8 mg iron-800 mcg-1,000 unit tablet 1 tab PO QAM sevelamer carbonate [Renvela] 800 mg tablet 2,400 mg PO TID nitroglycerin [Nitrostat] 0.4 mg Tablet, Sublingual 0.4 mg sublingual UD PRN (Reason: chest pain) Qty: 20 0RF Rx Instructions: NEEDED FOR CHEST PAIN : ONE TABLET UNDER THE TONGUE EVERY FIVE MINUTES UP TO 3 DOSES. Eliquis 5 mg Tablet 5 mg PO BID furosemide [Lasix] 40 mg Tablet 80 mg PO BID Qty: 120 3RF amlodipine 5 mg tablet 5 mg PO DAILY Qty: 30 0RF Rx Instructions: give every morning EXCEPT ON DIALYSIS DAYS PLEASE GIVE AFTER DIALYSIS IS COMPLETE (MONDAY, MONDAY, MONDAY) tamsulosin 0.4 mg Capsule 0.4 mg PO QAM Qty: 30 0RF Rx Instructions: give every morning EXCEPT ON DIALYSIS DAYS PLEASE GIVE AFTER DIALYSIS IS COMPLETE (MONDAY, MONDAY, MONDAY) Changed clonidine HCl 0.2 mg Tablet 0.2 mg PO HS Qty: 30 0RF Discontinued insulin aspart U-100 [Novolog PenFill U-100 Insulin] 100 unit/mL Cartridge 10 unit SUBCUT AC insulin glargine [Lantus Solostar U-100 Insulin] 100 unit/mL (3 mL) insulin pen 50 unit SUBCUT BID Label Comments: patient states he took 1/2 a dose Discharge Orders: Discharge Order (Routine); Ordered 01/01/22 Ordered By: Elliot Wagner Admission Data Admit Date/Time: 12/21/21 05:42 Attending Provider: Elliot Wagner Admit Provider: Karan Grady Primary Care Provider: [facility] Other Providers: [facility] ; [facility] ; Karan Grady ; [place] ; Luiz Valdes Other Interventions: Discharge Summary Assessment (RN) Last Done: 01/01/22 15:14 Coding Level of Care Code D/C DAY MANAGEMENT >30 MINS Diagnoses Acute metabolic encephalopathy G93.41 Toxic encephalopathy G92.9 Constipation K59.00 Closed dislocation of right ankle S93.04XA Ankle fracture, right S82.891A Diabetes mellitus type 2 in obese E11.69; E66.9 Fall W19.XXXA CAD (coronary artery disease) I25.119 Associated angina: with unspecified angina Coronary Disease-Associated Artery/Lesion type: hoh artery [place] vs. transplanted heart: hoh heart End-stage renal disease on hemodialysis N18.6; Z99.2 HTN (hypertension) I10 Hypertension type: unspecified Paroxysmal atrial flutter I48.92 BPH (benign prostatic hyperplasia) N40.0 Lower urinary tract symptom presence: symptoms absent Anemia D64.9 DVT prophylaxis Z29.9 Obesity E66.9 Hyperphosphatemia E83.39 Umbilical hernia K42.9 Vitamin D deficiency E55.9 Inability to return to living situation Z59.9
== END 2022-01-01 15:41 | DRG 492 ==
LOC: ED 01:22 → SUATTDRO 05:42 → 3W 05:42 → 2N 12-22 18:45
DX: S82.51XA Displaced fracture of medial malleolus of right tibia, initial encounter for closed fracture; Y92.230 Patient room in hospital as the place of occurrence of the external cause; E11.649 Type 2 diabetes mellitus with hypoglycemia without coma; F17.210 Nicotine dependence, cigarettes, uncomplicated; T40.2X5A Adverse effect of other opioids, initial encounter; Z68.41 Body mass index [BMI] 40.0-44.9, adult; K21.9 Gastro-esophageal reflux disease without esophagitis; K42.9 Umbilical hernia without obstruction or gangrene; K56.49 Other impaction of intestine; D62 Acute posthemorrhagic anemia; R33.9 Retention of urine, unspecified; Z99.2 Dependence on renal dialysis; Z95.1 Presence of aortocoronary bypass graft; I25.10 Atherosclerotic heart disease of native coronary artery without angina pectoris; W01.0XXA Fall on same level from slipping, tripping and stumbling without subsequent striking against object, initial encounter; E66.01 Morbid (severe) obesity due to excess calories; E11.22 Type 2 diabetes mellitus with diabetic chronic kidney disease; Z79.4 Long term (current) use of insulin; N18.6 End stage renal disease; I48.92 Unspecified atrial flutter; N40.0 Benign prostatic hyperplasia without lower urinary tract symptoms; E55.9 Vitamin D deficiency, unspecified; Z79.02 Long term (current) use of antithrombotics/antiplatelets; I48.0 Paroxysmal atrial fibrillation; G93.41 Metabolic encephalopathy; Y92.019 Unspecified place in single-family (private) house as the place of occurrence of the external cause; I12.0 Hypertensive chronic kidney disease with stage 5 chronic kidney disease or end stage renal disease; G92.8 Other toxic encephalopathy; D63.1 Anemia in chronic kidney disease